=== PATIENT | female | born 1950 | race Caucasian/White ===

== ENCOUNTER 2023-05-07 12:58 | Outpatient (OUT) | payer MEDICARE, OTHER, SELFPAY ==
--- NOTE | 2023-05-07 13:03 | US_ITS ---
The [address] [address] Patient Name: DELBERT SALAS MRN: [id number] date: 1950 Sex: F Assigned Patient Location: US Current Patient Location: US Accession/Order Number: [id number] Exam Date: 05/07/2023 13:35 Report Date: 05/07/2023 14:18 At the request of: SHAIKH GERALDO Procedure: US abdomen limited EXAM: US abdomen limited HISTORY: Left Inguinal Hernia COMPARISON: None. TECHNIQUE: Real-time the left groin ultrasound Findings: There is a nonenlarged 1.3 x 0.4 x 0.6 cm left inguinal lymph node. Small fat-containing left inguinal hernia with a mild measuring approximately 0.1 cm. US/US abdomen limited IMPRESSION: 1. Small fat-containing left inguinal hernia. Electronically authenticated by: ELZBIETA OLIVA Date: 05/07/2023 14:18
--- NOTE | 2023-05-07 13:03 | XR_ITS ---
[place] [id number] Patient Name: DELBERT SALAS MRN: [id number] date: 1950 Sex: F Assigned Patient Location: US Current Patient Location: US Accession/Order Number: [id number] Exam Date: 05/07/2023 13:10 Report Date: 05/07/2023 13:33 At the request of: SHAIKH GERALDO Procedure: XR lumbar spine 2-3V EXAM: XR lumbar spine 2-3V HISTORY: Chronic Low Back Pain COMPARISON: None. TECHNIQUE: 3 views FINDINGS: Satisfactory alignment. Maintained vertebral body heights and disc spaces. Multilevel endplate degenerative changes and anterior spurring of T12-L1. No acute fracture or subluxation. Unremarkable soft tissues. XR/XR lumbar spine 2-3V IMPRESSION: Degenerative changes as above. Electronically authenticated by: DIEUDONNE SCHAEFFER Date: 05/07/2023 13:33
--- NOTE | 2023-05-07 13:03 | XR_ITS ---
The [address] [address] Patient Name: DELBERT SALAS MRN: [id number] date: 1950 Sex: F Assigned Patient Location: US Current Patient Location: US Accession/Order Number: [id number] Exam Date: 05/07/2023 13:10 Report Date: 05/07/2023 16:32 At the request of: SHAIKH GERALDO Procedure: XR hip LT min 2V EXAM: XR hip LT min 2V HISTORY: Chronic Left Hip Pain COMPARISON: None. TECHNIQUE: AP and lateral views of the left hip were obtained. FINDINGS: There is marginal spurring and joint space narrowing of the left hip joint. XR/XR hip LT min 2V IMPRESSION: Moderate left hip joint osteoarthritis. No acute fracture or subluxation. Electronically authenticated by: NIKOLE NAPOLES Date: 05/07/2023 16:32
[2023-05-07 15:00] LABS: Alanine Aminotransferase 47 U/L (14-59); Albumin Globulin Ratio 1.2; Albumin Level 3.8 g/dL (3.4-5.0); Alkaline Phosphatase 166 U/L (46-116); Aspartate Amino Transferase 26 U/L (15-37); Bilirubin Direct 0.2 mg/dL (0.0-0.2); Bilirubin Total 0.6 mg/dL (0.2-1.0); Chol HDL Ratio 2.9; Cholesterol 120 mg/dL (<=200); Globulin 3.3 g/dL; HDL Cholesterol 42 mg/dL (40-60); LDL Cholesterol Calculated 51.8 mg/dL; Thyroid Stimulating Hormone 1.199 uIU/mL (0.358-3.740); Total Protein 7.1 g/dL (6.4-8.2); Triglycerides 131 mg/dL (<=150); VLDL CHOLESTEROL 26.2 mg/dL
== END 2023-05-07 12:59 | disposition home or self-care (01) ==
LOC: US 12:58
PROVIDERS: PCP Internal Medicine; Visit Provider Internal Medicine
DX: M25.552 Pain in left hip (principal); M54.50 Low back pain, unspecified; K40.90 Unilateral inguinal hernia, without obstruction or gangrene, not specified as recurrent; E03.9 Hypothyroidism, unspecified; E78.5 Hyperlipidemia, unspecified; M16.12 Unilateral primary osteoarthritis, left hip
CPT/HCPCS: 36415; 72100; 73502; 76705; 80061; 80076; 84443

== ENCOUNTER 2023-05-31 13:19 | Outpatient (OUT) | payer MEDICARE, OTHER, SELFPAY ==
--- NOTE | 2023-05-31 15:54 | PM.CN ---
Consult Note: HPI Data of Consult Patient: new to practice Consult date: 05/31/23 Requesting Physician: Vanessa Mack MD Primary Care Provider: Shaikh Tyshawn MD Consult Narrative Reason for consult: low back, bilateral leg pain Narrative: 73yof who presents for evaluation. worsening pain throughout low back with radiation into bilateral lower extremities. ongoing for years, but continues to worsen. imaging reviewed, which is significant for multiple levels of stenosis, worst at l5-s1, as well as multilevel facet arthropathy and sacroiliac joint degeneration. engages in >6 weeks of provider directed home exercise program, without relief. utilizes otc pain medications. cc:: CC: Vanessa Mack MD Review of Systems ROS Status of ROS 10 or more systems reviewed and unremarkable except as noted in history and below Meds Home Medications and Allergies Home Medications Medication Instructions Recorded Confirmed Type aspirin 81 mg tablet,delayed 81 mg PO DAILY 05/31/23 05/31/23 History release (Adult Low Dose Aspirin) calcium carbonate 600 mg-vitamin 1 tab PO DAILY 05/31/23 05/31/23 History D3 5 mcg (200 unit) tablet (Calcium 600 + D(3)) citalopram 20 mg tablet 30 mg PO DAILY 05/31/23 05/31/23 History esomeprazole magnesium 40 mg 40 mg PO DAILY 05/31/23 05/31/23 History capsule,delayed release (Nexium) famotidine 20 mg tablet 20 mg PO DAILY 05/31/23 05/31/23 History fesoterodine 8 mg tablet,extended 8 mg PO DAILY 05/31/23 05/31/23 History release 24 hr flaxseed oil 1,000 mg capsule 1,000 mg PO DAILY 05/31/23 05/31/23 History lactobacillus combination no.4 3 3,000 mmu cells PO DAILY 05/31/23 05/31/23 History billion cell capsule (Probiotic) levothyroxine 50 mcg capsule 50 mcg PO DAILY 05/31/23 05/31/23 History melatonin 10 mg capsule 10 mg PO DAILY 05/31/23 05/31/23 History multivitamin (Daily Multi-Vitamin 1 tab PO DAILY 05/31/23 05/31/23 History tablet) semaglutide 0.25 mg or 0.5 mg (2 0.25 mg subcut QWEEK 05/31/23 05/31/23 History mg/3 mL) subcutaneous pen injector (Ozempic) simvastatin 20 mg tablet 20 mg PO DAILY 05/31/23 05/31/23 History Allergies Allergy/AdvReac Type Severity Reaction Status Date / Time Penicillins Allergy Verified 05/31/23 15:41 Sulfa (Sulfonamide Allergy Verified 05/31/23 15:41 Antibiotics) Exam Narrative Exam Narrative: Psych-alert and oriented x 3. Attentive and appropriate, constitutionally normal, displays normal mood and affect per situation. There are no obvious deficits in memory, reasoning, or intellect.? Skin-no obvious rashes, bruising, erythema noted to the patient's area of pain.? Extremities- extremities are warm with minimal edema and palpable pulses. Lumbar-tenderness to palpation noted in the lumbar spine and paraspinal musculature. Pain is elicited with flexion, extension, and lateral rotation of the lumbar spine. Range of motion is diminished with these motions. Facet loading maneuvers are positive. Strength-noted to be unremarkable with the exception of decreased strength rated at 4 out of 5 in bilateral quadriceps femoris, anterior tibialis. Sensory-no notable sensory deficits in the bilateral lower extremities to touch or pinprick in all dermatomal distributions with the exception to decreased sensation to the bilateral l4, l5 dermatomal distribution Sacroiliac joint - tenderness to palpation over bilateral PSIS. positive thigh thrust bilaterally. positive Augusto's maneuver bilaterally. Coordination remains intact.? Gait remains non-antalgic. Assessment and Plan Assessment and Plan (1) Lumbar stenosis with neurogenic claudication: (2) Sacroiliac joint dysfunction of both sides: (3) Lumbar spondylosis: Plan 73yof who presents for evaluation. failed conservative measures, as noted. imaging reviewed, as noted. given symptoms and imaging, prudent to attempt bilateral l5-s1 transforaminal epidural steroid injection under fluoroscopic guidance. she may even benefit from bilateral block of the nerve innervating the sacroiliac joint. she is in agreement. medications reviewed, no changes. follow up after procedure.
== END 2023-05-31 13:20 | disposition home or self-care (01) ==
LOC: PM 13:20
PROVIDERS: PCP Internal Medicine; Visit Provider Anesthesiology
DX: M47.816 Spondylosis without myelopathy or radiculopathy, lumbar region (principal); M48.062 Spinal stenosis, lumbar region with neurogenic claudication; M53.3 Sacrococcygeal disorders, not elsewhere classified
CPT/HCPCS: G0463

== ENCOUNTER 2023-06-21 09:05 | Day surgery (SDC) | payer MEDICARE, OTHER, SELFPAY ==
[2023-06-21 09:45] VITALS: BP 133/77; PULSE 71; RESP 14; TEMP 36.8; O2SAT 97
[2023-06-21 10:36] VITALS: BP 174/95; PULSE 82; RESP 16
[2023-06-21] MEDS: BUPIVACAINE HCL 0.25% PF 25 MG/10 ML VIAL 4 ML INJ (10:38)
[2023-06-21] MEDS: IOHEXOL 240 MG/ML - 10 ML VIAL INJ (10:39)
[2023-06-21] MEDS: LIDOCAINE HCL 2% PF 100 MG/5 ML VIAL 3 ML INJ (10:39)
[2023-06-21] MEDS: TRIAMCINOLONE ACETONIDE 40 MG/ML VIAL 80 MG INJ (10:39)
[2023-06-21 10:41] VITALS: BP 202/107; PULSE 78; RESP 18; O2SAT 94
--- NOTE | 2023-06-21 10:42 | W.PM.PROCNOT ---
Date of procedure: 06/21/23 Pre-op diagnosis: Lumbar stenosis with neurogenic claudication Post-op diagnosis: same as pre-op Procedure: Procedure: Bilateral L5-S1 transforaminal epidural steroid injection Medications: Bupivacaine 0.25% 2cc, kenalog 80mg The patient was seen and examined in the preoperative holding area.? Informed consent was obtained and placed on the chart.? Patient was brought to the medical procedure unit and placed in the prone position where a timeout was completed verifying the correct patient, procedure site, position, and planned special equipment using sterile aseptic technique.? Under direct fluoroscopic visualization a 25-gauge Quincke tipped spinal needle was advanced at level left L5-S1 to the designated neural foramen where contrast dye was injected to show adequate spread.? There was no evidence of vascular or adverse uptake.? Epidural spread was appreciated.? The above-mentioned injectate was then placed in a 1.5 mL aliquot preceded by negative aspiration.? The needle was removed. The same procedure, at the same level, was completed on the opposite side. ? Patient was taken to the postprocedural recovery area and monitored for an appropriate length of time before found suitable for discharge in the accompaniment of a responsible adult. Anesthesia: Local Surgeon: Vanessa Mack Pathology: none sent Condition: stable Disposition: no change
[2023-06-21 10:43] VITALS: O2SAT 97
== END 2023-06-21 10:46 | disposition home or self-care (01) ==
PROVIDERS: PCP Internal Medicine; Visit Provider Anesthesiology
DX: M48.062 Spinal stenosis, lumbar region with neurogenic claudication (principal); Z79.85 Long-term (current) use of injectable non-insulin antidiabetic drugs
CPT/HCPCS: 64483; 82948; Q9966

== ENCOUNTER 2023-06-23 15:51 | Outpatient (OUT) | payer MEDICARE, OTHER, SELFPAY ==
[2023-06-23 16:24] LABS: Basophils Percent Auto 0.2 % (0.2-2.0); Eosinophils Percent Auto 0.1 % (0.9-7.0); Hematocrit 41.8 % (36.0-48.0); Immature Granulocytes Abs Auto 0.04 10^3/uL (0.00-0.03); Immature Granulocytes Pct Auto 0.3 % (0.0-0.5); Lymphocytes Absolute Auto 1.8 10^3/uL (1.2-3.8); Lymphocytes Percent Auto 13.4 % (20.5-60.0); Mean Corpuscular HGB Conc 33.5 g/dL (29.9-35.2); Mean Corpuscular Hemoglobin 29.5 pg (26.7-34.0); Mean Corpuscular Volume 88.2 fL (81.0-99.0); Mean Platelet Volume 10.7 fL (9.5-13.5); Monocytes Absolute Auto 0.7 10^3/uL (0.3-0.8); Monocytes Percent Auto 5.3 % (1.7-12.0); Neutrophils Absolute Auto 10.6 10^3/uL (1.4-6.5); Neutrophils Percent Auto 80.7 % (43.0-75.0); Platelet Count 195 10^3/uL (150-450); Red Blood Count 4.74 10^6/uL (4.20-5.40); Red Cell Distribution Width 14.4 % (11.0-15.0); White Blood Count 13.1 10^3/uL (4.0-11.0)
[2023-06-23 16:41] LABS: Alanine Aminotransferase 68 U/L (14-59); Albumin Globulin Ratio 1.1; Albumin Level 3.7 g/dL (3.4-5.0); Alkaline Phosphatase 160 U/L (46-116); Amylase 54 U/L (25-115); Aspartate Amino Transferase 25 U/L (15-37); BUN Creatinine Ratio 30.1; Bilirubin Total 0.3 mg/dL (0.2-1.0); Calcium 8.8 mg/dL (8.5-10.1); Carbon Dioxide 26.4 mmol/L (21.0-32.0); Chloride 103 mmol/L (98-107); Estimated GFR (African America >60 (>=60); Estimated GFR (Non-African Ame >60 (>=60); Free T3 1.32 pg/mL (2.18-3.98); Globulin 3.5 g/dL; Glucose 94 mg/dL (74-106); Magnesium 2.3 mg/dL (1.8-2.4); Potassium 4.4 mmol/L (3.5-5.1); Sodium 137 mmol/L (136-145); Total Protein 7.2 g/dL (6.4-8.2)
[2023-06-23 17:29] LABS: Free T4 0.88 ng/dL (0.76-1.46)
[2023-06-24 14:19] LABS: Bilirubin Urine NEGATIVE (NEGATIVE); Blood Urine NEGATIVE (NEGATIVE); Clarity Urine CLEAR (CLEAR); Color Urine LT. YELLOW (YELLOW); Glucose Urine UA NEGATIVE (NEGATIVE); Ketones Urine NEGATIVE (NEGATIVE); Leukocyte Esterase Urine MODERATE (NEGATIVE); Nitrite Urine NEGATIVE (NEGATIVE); Protein Urine NEGATIVE (NEG/TRACE); Specific Gravity Urine 1.015 (1.005-1.025); Urobilinogen Urine 0.2 EU/dL (0.2-1.0)
[2023-06-24 14:34] LABS: Urine Microscopic Indicated YES
[2023-06-24 14:37] LABS: Bacteria Urine SMALL #/HPF (NONE SEEN); Mucus Urine NONE SEEN (NONE SEEN); RBC Urine NONE SEEN #/HPF (0-2)
[2023-06-24 14:38] LABS: Squamous Epithelial Cell Urine FEW #/LPF (NONE/RARE)
[2023-06-24 14:39] LABS: Urine Culture Indicated YES
[2023-06-24 14:40] LABS: Bacteria Urine SMALL #/HPF (NONE SEEN); Mucus Urine NONE SEEN (NONE SEEN); RBC Urine NONE SEEN #/HPF (0-2); Squamous Epithelial Cell Urine FEW #/LPF (NONE/RARE)
[2023-06-24 14:41] LABS: Urine Culture Indicated YES
== END 2023-06-23 15:52 | disposition home or self-care (01) ==
LOC: LAB 15:54
PROVIDERS: PCP Internal Medicine; Visit Provider Nurse Practitioner
DX: R42 Dizziness and giddiness (principal); E03.9 Hypothyroidism, unspecified; D50.9 Iron deficiency anemia, unspecified; R11.0 Nausea; R82.90 Unspecified abnormal findings in urine
CPT/HCPCS: 36415; 80053; 81001; 82150; 82607; 82728; 83540; 83690; 83735; 84439; 84443; 84481; 85025; 87086; 87150; 87186

== ENCOUNTER 2023-06-28 13:02 | Outpatient (OUT) | payer MEDICARE, OTHER, SELFPAY ==
--- NOTE | 2023-06-28 | ECG_ITS ---
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
--- NOTE | 2023-06-28 13:16 | US_ITS ---
[place] [id number] Patient Name: DELBERT SALAS MRN: [id number] date: 1950 Sex: F Assigned Patient Location: CT Current Patient Location: CT Accession/Order Number: [id number] Exam Date: 06/28/2023 13:40 Report Date: 06/28/2023 16:41 At the request of: ESPERANZA SHOEMAKER Procedure: US carotid duplex BI EXAMINATION: US carotid duplex BI HISTORY: Dizziness, Elevated Blood Pressure COMPARISON: No relevant comparison available. TECHNIQUE: Duplex Doppler ultrasound analysis of carotid and vertebral arteries. . Bilateral carotid arterial duplex examination was performed using B-mode, color flow and spectral analysis. Carotid stenosis is reported according to validated velocity parameters, similar to NASCET criteria. FINDINGS: RIGHT CAROTID ARTERY Mild atherosclerotic plaque Subclavian: PSV: 159.2 cm/s cm/s EDV: 8.9 cm/s cm/s CCA: Prox: PSV: 73.6 cm/s cm/s EDV: 16.7 cm/s cm/s Mid: PSV: 68.0 cm/s cm/s EDV: 15.3 cm/s cm/s Distal: PSV: 48.8 cm/s cm/s EDV: 13.0 cm/s cm/s BULB: PSV: 39.4 cm/s cm/s EDV: 13.6 cm/s cm/s ICA: Prox: PSV: 37.4 cm/s cm/s EDV: 10.4 cm/s cm/s Mid: PSV: 45.5 cm/s cm/s EDV: 14.9 cm/s cm/s Distal: PSV: 39.1 cm/s cm/s EDV: 14.2 cm/s cm/s ECA: PSV: 71.4 cm/s cm/s EDV: 10.0 cm/s cm/s VERTEBRAL: PSV: 53.6 cm/s cm/s EDV: 13.2 cm/s cm/s, antegrade ICA/CCA ratio: PSV: 0.7 EDV: 1.0 LEFT CAROTID ARTERY Mild atherosclerotic plaque Subclavian: PSV: 87.1 cm/s cm/s EDV: 16.0 cm/s CCA: Prox: PSV: 74.9 cm/s cm/s EDV: 19.3 cm/s Mid: PSV: 44.8 cm/s cm/s EDV: 11.3 cm/s Distal: PSV: 63.6 cm/s cm/s EDV: 13.0 cm/s BULB: PSV: 41.8 cm/s cm/s EDV: 11.3 cm/s ICA: Prox: PSV: 37.8 cm/s cm/s EDV: 10.9 cm/s Mid: PSV: 47.6 cm/s cm/s EDV: 19.9 cm/s Distal: PSV: 37.2 cm/s cm/s EDV: 12.5 cm/s ECA: PSV: 46.1 cm/s cm/s EDV: 9.5 cm/s VERTEBRAL: PSV: 28.0 cm/s cm/s EDV: 10.0 cm/s , antegrade ICA/CCA ratio: PSV: 0.7 EDV: 1.5 US/US carotid duplex BI IMPRESSION: 0-49% flow stenosis bilateral internal carotid arteries Spectral Doppler US Thresholds (Reference: Collin EG, et al. Radiology 2000; 214:247-252) Stenosis (%) PSV (cm/sec) VICA/VCCA 0-49 <150 <2.5 50-69 150-225 2.5-4.0 >70 >225 >4.0 Electronically authenticated by: ADAM GERMAIN Date: 06/28/2023 16:41
--- NOTE | 2023-06-28 13:16 | CT_ITS ---
The [address] [address] Patient Name: DELBERT SALAS MRN: [id number] date: 1950 Sex: F Assigned Patient Location: CT Current Patient Location: CT Accession/Order Number: [id number] Exam Date: 06/28/2023 13:31 Report Date: 06/28/2023 14:05 At the request of: ESPERANZA SHOEMAKER Procedure: CT head/brain wo con EXAM: CT head/brain wo con HISTORY: Dizziness, Elevated Blood Pressure COMPARISON: CT brain 09/29/2021 TECHNIQUE: Axial CT scans through the head were obtained without IV contrast administration. Dose reduction techniques were achieved by using: automated exposure control and/or adjustment of mA and /or kV according to patient size and/or use of iterative reconstruction technique. FINDINGS: There is no evidence of acute intracranial hemorrhage or abnormal extra-axial fluid collection. No mass effect or midline shift is seen. There is no evidence of large acute territorial infarction. There is no hydrocephalus. Mild enlarged cortical sulci, consistent with age appropriate cerebral atrophy. Patchy areas of low-attenuation are present in supratentorial white matter, likely represents chronic microvascular ischemia. To the limit of CT, the posterior fossa appears unremarkable. No definite acute fracture is identified. Soft tissues are unremarkable. The visualized orbits show no abnormal mass. The visualized paranasal sinuses show no air-fluid level. Mastoid air cells are clear. CT/CT head/brain wo con IMPRESSION: No CT evidence of acute intracranial abnormality. Chronic microvascular ischemia and mild involutional changes. Electronically authenticated by: HARLAN KAUR Date: 06/28/2023 14:05
== END 2023-06-28 13:03 | disposition home or self-care (01) ==
LOC: CT 13:03
PROVIDERS: PCP Internal Medicine; Visit Provider Nurse Practitioner
DX: R42 Dizziness and giddiness (principal); R03.0 Elevated blood-pressure reading, without diagnosis of hypertension; Z82.3 Family history of stroke; I67.82 Cerebral ischemia
CPT/HCPCS: 70450; 93005; 93880

== ENCOUNTER 2023-07-05 07:25 | Day surgery (SDC) | payer MEDICARE, OTHER, SELFPAY ==
[2023-07-05 07:51] VITALS: BP 127/80; PULSE 74; RESP 16; TEMP 36; O2SAT 97
[2023-07-05 08:35] VITALS: BP 167/93; PULSE 76; RESP 18; O2SAT 97
[2023-07-05] MEDS: LIDOCAINE HCL 2% PF 100 MG/5 ML VIAL 3 ML INJ (08:38)
[2023-07-05] MEDS: TRIAMCINOLONE ACETONIDE 40 MG/ML VIAL 80 MG INJ (08:38)
[2023-07-05] MEDS: BUPIVACAINE HCL 0.25% PF 25 MG/10 ML VIAL 4 ML INJ (08:38)
--- NOTE | 2023-07-05 08:39 | W.PM.PROCNOT ---
Date of procedure: 07/05/23 Pre-op diagnosis: Sacroiliitis, bilateral Post-op diagnosis: same as pre-op Procedure: Procedure: Bilateral block of the nerve innervating the sacroiliac joint Medications: Bupivacaine 0.25% 3cc, kenalog 40mg x2 After informed consent was obtained, the patient was brought to the medical procedure unit and placed in the prone position, when a timeout was completed verifying correct patient, procedure, site, positioning, implant, and/or special equipment.? The skin overlying the area was prepped and draped in standard sterile fashion using alcohol.? A 25-gauge needle was inserted towards the left nerve innervating the sacroiliac joint under direct fluoroscopic imaging.? Needle tip was advanced until the nerve was encountered.? We instilled a total of 3 mL of solution.? The same procedure was then completed on the right side.? Postoperatively needles were removed.? The patient tolerated the procedure well without complication.? The patient reported reduction in pain symptoms postoperatively. Anesthesia: Local Surgeon: Vanessa Mack Pathology: none sent Condition: stable Disposition: no change
[2023-07-05 08:40] VITALS: BP 164/95; PULSE 80; RESP 18; O2SAT 95
== END 2023-07-05 08:45 | disposition home or self-care (01) ==
PROVIDERS: PCP Internal Medicine; Visit Provider Anesthesiology
DX: M46.1 Sacroiliitis, not elsewhere classified (principal)
CPT/HCPCS: 64451

== ENCOUNTER 2023-07-07 16:34 | Outpatient (OUT) | payer MEDICARE, OTHER, SELFPAY ==
[2023-07-07 17:14] LABS: Bilirubin Urine NEGATIVE (NEGATIVE); Blood Urine NEGATIVE (NEGATIVE); Color Urine LT. YELLOW (YELLOW); Glucose Urine UA NEGATIVE (NEGATIVE); Ketones Urine NEGATIVE (NEGATIVE); Leukocyte Esterase Urine SMALL (NEGATIVE); Nitrite Urine NEGATIVE (NEGATIVE); Protein Urine NEGATIVE (NEG/TRACE); pH Urine 6.5 (5.0-9.0)
[2023-07-07 17:20] LABS: Clarity Urine SLIGHTLY CLOUDY (CLEAR)
[2023-07-07 17:21] LABS: Bacteria Urine TRACE #/HPF (NONE SEEN); Cast Seen? NONE SEEN #/LPF (NONE SEEN); Crystals Seen? None Seen #/HPF (None Seen); Mucus Urine NONE SEEN (NONE SEEN); RBC Urine NONE SEEN #/HPF (0-2); Squamous Epithelial Cell Urine FEW #/LPF (NONE/RARE)
== END 2023-07-07 16:35 | disposition home or self-care (01) ==
PROVIDERS: PCP Internal Medicine; Visit Provider Internal Medicine
DX: N39.0 Urinary tract infection, site not specified (principal)
CPT/HCPCS: 81001; 87086

== ENCOUNTER 2023-07-21 10:48 | Outpatient (OUT) | payer MEDICARE, OTHER, SELFPAY ==
--- NOTE | 2023-07-21 11:14 | P.CN_ITS ---
Consult Note: HPI Data of Consult Patient: known to practice within the last 3 years Requesting Physician: Beth Morales NP Primary Care Provider: Shaikh Tyshawn MD Consult Narrative Reason for consult: f/u Narrative: Berenice Nolasco a pleasant 73 year old female presents for evaluation and management of low back pain. Today rating pain maybe 1/10, pain has been 0/10 until yesterday morning. Reporting 90% pain relief and functional improvement from bilateral SI joint injection and 100% pain relief from bilateral L5/S1 TFESI. cc:: CC: Beth Morales NP Review of Systems ROS Status of ROS 10 or more systems reviewed and unremarkable except as noted in history and below Musculoskeletal Reports: back pain PFSH PFSH Medical History Acid reflux ?K21.9 - Gastro-esophageal reflux disease without esophagitis (ICD-10) Diabetes ?E11.9 - Type 2 diabetes mellitus without complications (ICD-10) H/O malignant neoplasm of breast ?Z85.3 - Personal history of malignant neoplasm of breast (ICD-10) High cholesterol ?E78.00 - Pure hypercholesterolemia, unspecified (ICD-10) Osteoarthritis ?M19.90 - Unspecified osteoarthritis, unspecified site (ICD-10) Sleep apnea ?G47.30 - Sleep apnea, unspecified (ICD-10) Surgical History H/O arthroscopy of knee ?Z98.890 - Other specified postprocedural states (ICD-10) H/O arthroscopy of shoulder ?Z98.890 - Other specified postprocedural states (ICD-10) H/O bladder repair surgery ?Z98.890 - Other specified postprocedural states (ICD-10) H/O breast reconstruction ?Z98.890 - Other specified postprocedural states (ICD-10) H/O mastectomy ?Z90.10 - Acquired absence of unspecified breast and nipple (ICD-10) H/O: hysterectomy ?Z90.710 - Acquired absence of both cervix and uterus (ICD-10) Meds Home Medications and Allergies Home Medications Medication Instructions Recorded Confirmed Type aspirin 81 mg tablet,delayed 81 mg PO DAILY 05/31/23 07/05/23 History release (Adult Low Dose Aspirin) calcium carbonate 600 mg-vitamin 1 tab PO DAILY 05/31/23 07/05/23 History D3 5 mcg (200 unit) tablet (Calcium 600 + D(3)) citalopram 20 mg tablet 30 mg PO DAILY 05/31/23 07/05/23 History esomeprazole magnesium 40 mg 40 mg PO DAILY 05/31/23 07/05/23 History capsule,delayed release (Nexium) famotidine 20 mg tablet 20 mg PO DAILY 05/31/23 07/05/23 History fesoterodine 8 mg tablet,extended 8 mg PO DAILY 05/31/23 07/05/23 History release 24 hr flaxseed oil 1,000 mg capsule 1,000 mg PO DAILY 05/31/23 07/05/23 History lactobacillus combination no.4 3 3,000 mmu cells PO DAILY 05/31/23 07/05/23 History billion cell capsule (Probiotic) levothyroxine 50 mcg capsule 50 mcg PO DAILY 05/31/23 07/05/23 History melatonin 10 mg capsule 10 mg PO DAILY 05/31/23 07/05/23 History multivitamin (Daily Multi-Vitamin 1 tab PO DAILY 05/31/23 07/05/23 History tablet) semaglutide 0.25 mg or 0.5 mg (2 0.25 mg subcut QWEEK 05/31/23 07/05/23 History mg/3 mL) subcutaneous pen injector (Ozempic) simvastatin 20 mg tablet 20 mg PO DAILY 05/31/23 07/05/23 History Allergies Allergy/AdvReac Type Severity Reaction Status Date / Time Penicillins Allergy Verified 07/05/23 07:56 Sulfa (Sulfonamide Allergy Verified 07/05/23 07:56 Antibiotics) Exam Constitutional Documenting provider has reviewed patient's vital signs: yes Common normals: no apparent distress, oriented x3, healthy appearing, alert and well nourished General appearance: cooperative HENMT Common normals: normocephalic, hearing grossly normal bilaterally and moist oral mucous membranes Head and scalp: normocephalic Eye Common normals: PERRL Pupil: PERRL Neck & C-Spine Common normals: full ROM General: normal visual inspection Chest Common normals: inspection of chest normal Respiratory Common normals: normal respiratory effort, no retractions and no use of accessory muscles Back & Pelvis Lumbar spine/lower back: ROM limited, pain with ROM and straight leg raise negative bilaterally Other: mild pain with bilateral facet loading axial low back pain over L3,4,5,S1 no radiculopathy Neuro Common normals: oriented x3, CN's II-XII intact bilaterally, moves all extremities, no focal motor deficits, no sensory deficits noted and deep tendon reflexes 2+ bilaterally Sensorium/orientation: alert Motor exam: strength 5/5 throughout and no movement abnormalities noted Psych Common normals: mental status grossly normal, thought process normal, cooperative, affect normal, speech normal and activity/motor behavior normal Speech: normal speech Thought process: normal thought process Results Additional Findings Additional findings: I have checked an [place]AR[place] report on this patient today and there are no aberrancies noted in the prescribing history.?? A drug screen was completed and reviewed within the last year, and if there has not been a drug screen completed we ordered one today to monitor higher risk, state monitored pain medication use. As part of providing excellent, safe, comprehensive care, the following was completed at our patient's visit: 1. A medication reconciliation and review to ensure accurate knowledge of current/active medications, including asking our patients to inform us about any [id number] medications or herbal remedies/nutritional supplements/alternative remedies. 2. A review to specifically ensure our patients have had annual screening for: elevated body mass index (BMI), tobacco use, screening for depression, and screening for unhealthy alcohol use. When screening is concerning, patients are provided with education and the specific recommendation to discuss the concern ing health issue and treatment options with their primary care provider. Assessment and Plan Assessment and Plan (1) Lumbar spondylosis: (2) Sacroiliac joint dysfunction of both sides: (3) Lumbar stenosis with neurogenic claudication: Plan continue HEP discussed facet blocks and thermal RFA in the future if pain worsens or futher affects functional ability f/u 3 months to evaluate effectiveness of injections and consider repeating if provides 50% relief for 3 months
--- OUTSIDE RECORDS SUMMARY | 2023-08-31 13:53 | XMS_ITS | CCD ---
Author Name Unknown Address [address] [place] [address] Organization [facility] Care Team Providers Care Information Consultant Name Role Phone NANCY MARTINEZ Unavailable Unavailable NANCY MARTINEZ Unavailable Unavailable NADERER, TRINO~[phone] UNKNOWN Unavailable Unavailable GRUPO BROUSSARD Unavailable Unavailable DC Procedure Practitioner Unavailab ADAM Bernardo Surgeon Unavailable ADAM SKINNER Admitting Unavailable NADERER, TRINO Primary Care Unavailable NADERER, TRINO Referring Unavailable ADAM SKINNER Attending Unavailable LASHA BAKER Surgeon Unavailable DC Procedure Practitioner Unavailab le Tyshawn ADAMSON, Shaikh Kerry Primary Care Provider Shaikh Kerry Villagran MD Primary Care Provider SHAIKH KERRY VILLAGRAN Primary Care Unavailab le GHAZOUL, APOLINAR Admitting Unavailable GHAZOUL, APOLINAR Attending Unavailable GHAZOUL, APOLINAR Referring Unavailable GHAZOUL, APOLINAR Attending Unavailable GHAZOUL, APOLINAR Referring Unavailable [facility] Primary Care Unavailab le FAWWADSHAIKH KERYR Primary Care Unavailab le SELF, SELF Referring Unavailable GHAZOUL, APOLINAR Attending Unavailable SHAIK VILLAGRANH KERRY Primary Care Unavailab le GHAZOUL, APOLINAR Referring Unavailable GHAZOUL, APOLINAR Attending Unavailable [facility]ASHAIK [facility] Primary Care Unavailab le SELF, SELF Referring Unavailable GHAZOUL, APOLINAR Attending Unavailable TYSHAWN, FREED HAMMANUELA Primary Care Unavailab le SELF, SELF Referring Unavailable GHAZOUL, APOLINAR Attending Unavailable AKIINLEAH [facility] Primary Care Unavailab le SELF, SELF Referring Unavailable GHAZOUL, APOLINAR Attending Unavailable [facility] Primary Care Unavailab le SELF, SELF Referring Unavailable GHAZOUL, APOLINAR Attending Unavailable [facility], [facility] Primary Care Unavailab le SELF, SELF Referring Unavailable GHAZOUL, APOLINAR Attending Unavailable FA[facility]AD, [facility] Primary Care Unavailab le SELF, SELF Referring Unavailable GHAZOUL, APOLINAR Attending Unavailable FAWWAD, [facility] Primary Care Unavailab le SELF, SELF Referring Unavailable GHAZOUL, APOLINAR Attending Unavailable FAWWAD, [facility] Primary Care Unavailab le SELF, SELF Referring Unavailable GHAZOUL, APOLINAR Attending Unavailable FAWWAD, [facility] Primary Care Unavailab le SELF, SELF Referring Unavailable GHAZOUL, APOLINAR Attending Unavailable FAWWAD, [facility] Primary Care Unavailab le SELF, SELF Referring Unavailable GHAZOUL, APOLINAR Attending Unavailable FAWWAD, [facility] Primary Care Unavailab le SELF, SELF Referring Unavailable GHAZOUL, APOLINAR Attending Unavailable FAWWAD, [facility] Primary Care Unavailab le FAWWAD, [facility] Primary Care Unavailab le FAWWAD, [facility] Primary Care Unavailab le SELF, SELF Referring Unavailable GHAZOUL, APOLINAR Attending Unavailable FAWWAD, FREED H Attending Unavailable FAWWAD, FREED H Consulting Unavailable FAWWAD, FREED H Primary Care Unavailable FAWWAD, FREED H Admitting Unavailable FAWWAD, FREED H Attending Unavailable FAWWAD, FREED H Consulting Unavailable FAWWAD, FREED H Primary Care Unavailable FAWWAD, FREED H Admitting Unavailable FAWWAD, FREED H Primary Care Unavailable KANIKA, DR TY Marquez Consulting Unavailable FAWWAD, FREED H Admitting Unavailable FAWWAD, FREED H Attending Unavailable FAWWAD, FREED H Consulting Unavailable MARCELLUS, DR ADAM Castellanos Admitting Unavailable KEOKEE, DR ADAM Castellanos Attending Unavailable KEOKEE, DR ADAM Castellanos Consulting Unavailable FAWWAD, FREED H Primary Care Unavailable KANIKA, DR TY Marquez Consulting Unavailable WEST, DR ADAM Castellanos Attending Unavailable WEST, DR ADAM Castellanos Admitting Unavailable FAWWAD, FREED H Primary Care Unavailable FAWWAD, FREED H Consulting Unavailable WEST, DR ADAM Castellanos Admitting Unavailable WEST, DR ADAM Castellanos Attending Unavailable FAWWAD, FREED H Primary Care Unavailable BRODY, ADAM Admitting Unavailable BRODY, ADAM Attending Unavailable FAWWAD, FREED H Primary Care Unavailable FAWWAD, FREED H Attending Unavailable FAWWAD, FREED H Consulting Unavailable FAWWAD, FREED H Primary Care Unavailable FAWWAD, FREED H Admitting Unavailable FAWWAD, FREED H Attending Unavailable FAWWAD, FREED H Consulting Unavailable FAWWAD, FREED H Primary Care Unavailable FAWWAD, FREED H Admitting Unavailable Susanne Jordan Unavailable Dr. Apolinar Henry Attending Provider [phone] Adriana Lyn Unavailable Adam Betancourt MD Attending Unavailabl nicki Villagran MD, [facility] Unavailable Frederick ADAMSON, Vanessa Hernandez Attending Unavailable Tyshawn ADAMSON, [facility] Unavailable Frederick ADAMSON, Vanessa Hernandez Attending Unavailable Tyshawn ADAMSON, [facility] Unavailable Frederick ADAMSON, Vanessa Hernandez Attending Unavailable Tyshawn ADAMSON, [facility] Unavailable Kevin Joaquin Attending Unav bethel Villagran MD, [facility] Unavailable Kevin Joaquin Attending Unav bethel Villagran MD, [facility] Unavailable Tyshawn ADAMSON, [facility] Unavailable Kevin Joaquin Attending Unav bethel Villagran MD, [facility] Unavailable Jovan Betancourt Referring UnavailAlycia Howard MD Attending Unavailable Tyshawn ADAMSON, [facility] Unavailable Jovan Betancourt Attending Unavailab alley Villagran MD, [facility] Unavailable Jovan Betancourt Attending Unavailab Marin TIDWELL, Agnieszka Salcedo Attending Shruti vailacelso Villagran MD, [facility] Unavailable Tyshawn ADAMSON, [facility] Unavailable Jovan Betancourt Attending Unavailab alley Villagran MD, [facility] Unavailable Jovan Betancourt Attending Unavailab alley Villagran MD, [facility] Unavailable Nancy Dallas DO Attending Shruti vailable Apolinar Henry Attending Unavailable Apolinar Henry Attending Unavailable Apolinar Henry Attending Unavailable Tyshawn, [facility] Unavailable Susanne Jordan Attending Unavailable Susanne Jordan Admitting Unavailable Allergies Allergy Classification Reported Allergen(s) Allergy Type Date of Onset Reaction(s) Facility (2 sources) cortisone; Translations: [cortisone] [facility] Penicillins; Translations: [penicillins] Propensity to adverse reactions (disorder) 3 [facility] Repository (1 source) sulfamethoxazole; Translations: [sulfamethoxazole ] [facility] ([facility] sources) Sulfonamides (Antibiotic) Drug allergy (disorder) 3 [facility] Repository (13 sources) sulfaSALAzine Drug Allergy 7 [facility] (13 sources) Sulfonamides (Antibiotic) Propensity to adverse reactions to drug 3 [facility] (5 sources) Penicillin Drug Allergy Unknown [employer] Other (5 sources) Substance with sulfonamide structure and antibacterial mechanism of action (substance) Drug allergy Unknown [employer] Other (2 sources) Sulfonamides (Antibiotic) Allergy to substance 3 [facility] (1 source) Sulfonamides (Antibiotic); Translations: [sulfa drugs] Propensity to adverse reactions to drug (disorder) [facility] Repository (1 source) Sulfonamides (Antibiotic) Drug allergy (disorder) 3 [facility] Repository Medications Current Medications Medication Drug Class(es) Dates Sig (Normalized) Sig (Original) 0.25 MG, 0.5 MG Dose 3 ML semaglutide 0.68 MG/ML Pen Injector [Ozempic] (5 sources) Start: 01-25-2023 Ozempic (0.25 or 0.5 MG/DOSE) 2 MG/3ML 0.25mg Subcutaneous Once Weekly for 90 days January, Active Start: 01-25-2023 Ozempic (0.25 or 0.5 MG/DOSE) 2 MG/3ML 0.25mg once weekly for 4 weeks, then 0.5mg once weekly for 4 weeks Subcutaneous Once Weekly for 28 January, Active Ascorbic Acid / Collagen (2 sources) Vitamin C Start: 05-05-2023 take 30-833.3 mg by mouth once daily Ascorbic Acid-Collagen (Collagen Skin Renewal) 30-833.3 mg tablet Active 1 TABLET PO DAILY May 05, 2023 12:00am aspirin 81 mg delayed release oral tablet (13 sources) Platelet Aggregation Inhibitor, Nonsteroidal Anti-inflammatory Drug Start: 05-05-2023 take 81 mg by mouth once daily Aspirin Active 81 MG PO DAILY May 05, 2023 12:00am Start: 05-05-2023 End: 06-16-2022 take 81 mg by mouth once daily Aspirin Active 81 MG PO DAILY May 05, 2023 12:00am take 1 tablet by stone th every twenty-four hours Aspirin 81 MG 1 tablet Orally Once a day Active End: 07-09-2022 aspirin 81 MG Chew Tab chewa ble tablet At bedtime. 0 07/09/2022 Discontinued (Stop Taking at Discharge) Calcium (16 sources) Phosphate Binder, Calcium Calciu m + D3 600mg qd Active CALCIUM PO Take by mouth daily. 0 Active calcium carbonate 1500 mg / cholecalciferol 500 unt oral capsule (2 sources) Vitamin D Start: 05-05-2023 take 1 capsule by mouth once daily Calcium Carbonate-Vitamin D3 (Calcium 600 With Vitamin D3) 600 mg-12.5 mcg (500 unit) capsule Active 1 CAP PO DAILY May 05, 2023 12:00am citalopram 20 mg oral tablet (20 sources) Serotonin Reuptake Inhibitor Start: 05-05-2023 take 30 mg by mouth once daily Citalopram Active 30 MG PO DAILY May 05, 2023 12:00am Start: 03-11-2022 End: 06-16-2022 citalopram 20 MG tablet take 1 and 1/2 tablet by mouth once daily 0 03/11/2022 Active Collagen (16 sources) Collagen 1000mg + Vitamin C qd Active COLLAGEN PO Take by mouth. 0 Active esomeprazole 40 mg oral tablet (14 sources) Proton Pump Inhibitor Start: 05-05-2023 take 40 mg by mouth once daily Esomeprazole Magnesium Active 40 MG PO DAILY May 05, 2023 12:00am Start: 06-09-2022 take 1 capsule by [facility] once daily in the morning esomeprazole [address] capsule Take 1 capsule by mouth daily every morning. 0 06/09/2022 Active End: 05-20-2022 take 1 capsule by mouth once daily esomeprazole [address] capsule esomeprazole magnesium 40 mg capsule,delayed release take 1 capsule by mouth daily 0 05/20/2022 Discontinued famotidine 20 mg oral tablet (20 sources) Histamine-2 Receptor Antagonist Start: 05-05-2023 take 20 mg by mouth once daily Famotidine Active 20 MG PO DAILY May 05, 2023 12:00am 24 hr fesoterodine fumarate 8 mg extended release oral tablet (7 sources) Start: 05-05-2023 take 8 mg by mouth once daily Fesoterodine Active 8 MG PO DAILY May 05, 2023 12:00am Flax Seed Oil (5 sources) Flax Seed Oil 1200mg qd Active ibuprofen 400 mg oral tablet (11 sources) Nonsteroidal Anti-inflammatory Drug take 1 tablet by mouth every six hours as needed ibuprofen 400 MG tablet Take 1 tablet by mouth every 6 hours as needed for Mild Pain. 0 Active levothyroxine sodium 0.05 mg oral tablet (20 sources) l-Thyroxine Start: 05-05-2023 take 50 ug by mouth once daily Levothyroxine Active 50 MCG PO DAILY May 05, 2023 12:00am take 1 tablet by mouth once anai y Levothyroxine Sodium 50 MCG take 1 tablet by mouth once daily Oral for 90 Days Active levothyroxine 50 MCG tablet daily every morning. 0 Active linseed oil 1000 mg oral capsule (13 sources) Flaxseed, Linsee d, (Flax Seed Oil) 1000 MG capsule 1 capsule daily. 0 Active melatonin 10 mg oral tablet (13 sources) Start: 05-05-2023 take 10 mg by mouth at bedtime Melatonin Active 10 MG PO BEDTIME May 05, 2023 12:00am MELATONIN PO Delmar e by mouth daily. 0 Active Obeczvgx-Wnx-Nx-Lycopen-Lute in (Complete Mv Adult 50 Plus) 0.4 mg-300 mcg- 250 mcg tablet (2 sources) Start: 05-05-2023 take 1 tablet by mouth once daily Rpaiapya-Ycr-Xg-Lycopen-Lutein (Complete Mv Adult 50 Plus) 0.4 mg-300 mcg- 250 mcg tablet Active 1 TABLET PO DAILY May 05, 2023 12:00am Multivitamin preparation (5 sources) Multivitamin Act vera multivitamin tablet (11 sources) take 1 tablet by mouth once daily multivitamin tablet Take 1 tablet by mouth daily. 0 Active omeprazole 40 mg delayed release oral capsule (5 sources) Prot on Pump Inhi bito r take 1 capsule by mouth once daily Omeprazole 40 MG 1 capsule 30 minutes before morning meal Orally Once a day Active POLYETHYLENE GLYCOL 3350 (2 sources) Osmo tic Laxa tive MiraLax Active Probiotic (3 sources) Probiotic Active Semaglutide (2 sources) Start: 05-05-2023 Semaglutide (Ozempic) 0.25 m g or 0.5 mg (2 mg/3 mL) pen injector Active 0.25 MG SC EVERY WEEK May 05, 2023 12:00am simvastatin 20 mg oral table t (20 sources) HMG- CoA Redu ctas e Inhi bito r Start: 05-05-2023 take 20 mg by mouth once daily Simvastatin Active 20 MG PO DAILY May 05, 2023 12:00am 24 hr trospium chloride 60 m g extended release oral capsule (13 sources) Chol iner gic [facility] alejandra ic [address] take 1 capsule by mouth once daily in the morning trospium XR 60 MG Cap SR 24HR trospium ER 60 mg capsule,extended release 24 hr take 1 capsule by mouth every morning 0 Active Completed/Discontinued Medications Medication Drug Class(es) Dates Sig (Normalized) Sig (Original) acetaminophen 325 mg / oxyCODONE hydrochloride 5 mg oral tablet (10 sources) Opioid Agonist Start: 07-09-2022 End: 07-09-2022 take 1-2 tablets by mouth every four hours as needed oxyCODONE-acetami nophen (PERCOCET) 5-325 MG per tablet 1-2 tablet Start: 06-30-2022 End: 07-03-2022 take 1 tablet by mouth every six hours as needed for pain oxyCODONE-acetaminophen 5-325 MG per tablet Indications: S/P breast reconstruction Take 1 tablet by mouth every 6 hours as needed for Moderate Pain (Use ONLY as needed for pain) for up to 3 days. 10 tablet 0 06/30/2022 Active [id number] 200 actuat albuterol 0.09 mg/actuat metered dose inhaler (2 sources) beta2-Adrenergic Agonist End: 06-16-2022 albuterol 108 (90 Base) MCG/ACT Aero Soln inhaler take 2 puff(s) by mouth every si x hours albuterol 108 (90 Base) MCG/ACT Aero Soln inhaler albuterol sulfate HFA 90 mcg/actuation aerosol inhaler INHALE 2 PUFFS BY MOUTH EVERY 6 HOURS IF NEEDED 0 Active calcium chloride 0.0014 meq/ml / potassium chloride 0.004 meq/ml / sodium chloride 0.103 meq/ml / sodium lactate 0.028 meq/ml injectable solution (1 source) Start: 07-09-2022 End: 07-09-2022 lactated ringers IV solution cephalexin 500 mg oral capsule (5 sources) Cephalosporin Antibacterial Start: 08-05-2022 End: 08-12-2022 take 1 capsule by mouth twice daily cephALEXin 500 MG capsule Take 1 capsule by mouth 2 times daily for 7 days. 14 capsule 0 08/05/2022 08/12/2022 Start: 07-15-2022 End: 07-22-2022 take 1 capsule by mouth twice daily cephALEXin 500 MG capsule Take 1 capsule by mouth 2 times daily for 7 days. 14 capsule 0 07/15/2022 07/22/2022 Start: 06-30-2022 End: 07-07-2022 take 1 capsule by mouth twice daily cephALEXin 500 MG capsule Take 1 capsule by mouth 2 times daily for 7 days. 14 capsule 0 06/30/2022 07/07/2022 Active 2 ml gentamicin 40 mg/ml injection (1 source) Start: 07-09-2022 End: 07-09-2022 gentamicin (GARAMYCIN) injection 10 ml methylene blue 5 mg/ml injection (1 source) Oxidation-Reduction Agent Start: 07-09-2022 End: 07-09-2022 methylene blue (PROVAYBLUE) injection Oxidized Cellulose (SURGICEL) topical pad (1 source) Start: 07-09-2022 End: 07-09-2022 Oxidized Cellulose (SURGICEL) topical pad polyethylene glycol 3350 [id number] mg / potassium chloride 2970 mg / sodium bicarbonate 6740 mg / sodium chloride 5860 mg / sodium sulfate 76172 mg powder for oral solution (1 source) Osmotic Laxative End: 05-20-2022 peg 3350 w/electrolytes (GaviLyte-G) oral solution GaviLyte-G 236 gram-22.74 gram-6.74 gram-5.86 gram oral solution 0 05/20/2022 Discontinued sertraline 50 mg oral tablet (6 sources) Serotonin Reuptake Inhibitor End: 07-22-2022 sertraline 50 MG tablet Take by mouth daily. 0 07/22/2022 Discontinued (Medication Reconciliation (suppress cancel msg)) 1000 ml sodium chloride 9 mg/ml injection (2 sources) Start: 07-09-2022 End: 07-09-2022 sodium chloride 0.9 % irrigation Start: 07-09-2022 End: 07-09-2022 sodium chloride 0.9% IV solu tion Problems Active Problems Problem Classification Problem Date Documented Date Episodic/Chronic Administrative/socia l admission (2 sources) Persons encountering health services in other specified circumstances Episodic Anxiety disorders (13 sources) Anxiety; Translations: [Anxiety disorder, unspecified] Onset: 05-20-2022 05-20-2022 Chronic Cancer of breast (20 sources) Primary malignant neoplasm of female breast; Translations: [Malignant neoplasm of unspecified site of unspecified female breast] Onset: 11-03-2012 05-20-2022 Chronic Cancer of breast (20 sources) History of malignant neoplasm of breast; Translations: [Personal history of malignant neoplasm of breast] Onset: 05-20-2022 Episodic Diabetes mellitus without complication (2 sources) Impaired fasting glucose Episodic Disorders of lipid metabolism (20 sources) Hyperlipidemia; Translations: [Hyperlipidemia, unspecified] Onset: 10-23-2013 05-20-2022 Chronic Esophageal disorders (20 sources) Gastroesophageal reflux disease; Translations: [Gastro-esophageal reflux disease without esophagitis] Onset: 11-03-2012 05-20-2022 Chronic Headache; including migraine (1 source) Headache Onset: 08-05-2018 Episodic Mood disorders (20 sources) Depressive disorder; Translations: [Depressive disorder] Onset: 11-03-2012 05-20-2022 Chronic Nonmalignant breast conditions (6 sources) Hypertrophy of breast; Translations: [Hypertrophy of breast] Onset: 07-26-2023 05-05-2023 Episodic Nonspecific chest pain (20 sources) Chest pain; Translations: [Chest pain, unspecified] Onset: 05-20-2022 05-20-2022 Episodic Osteoarthritis (13 sources) Degenerative joint disease involving multiple joints; Translations: [Polyosteoarthritis, unspecified] Onset: 11-03-2012 05-20-2022 Chronic Other diseases of bladder and urethra (5 sources) Overactive bladder; Translations: [Overactive bladder] Chronic Other diseases of bladder and urethra (2 sources) Overactive bladder Chronic Other nutritional; endocrine; and metabolic disorders (12 sources) Obese class II; Translations: [Obesity, unspecified] Onset: 06-16-2022 06-16-2022 Chronic Other nutritional; endocrine; and metabolic disorders (5 sources) Body mass index 40+ - severely obese; Translations: [Body mass index (BMI) 40.0-44.9, adult] Chronic Other nutritional; endocrine; and metabolic disorders (5 sources) Body mass index 30+ - obesity; Translations: [Body mass index (BMI) 37.0-37.9, adult] Chronic Other nutritional; endocrine; and metabolic disorders (10 sources) Obesity; Translations: [Obesity, unspecified] Chronic Other nutritional; endocrine; and metabolic disorders (4 sources) Obesity, unspecified Chronic Other nutritional; endocrine; and metabolic disorders (2 sources) Body mass index (BMI) 34.0-34.9, adult Chronic Other nutritional; endocrine; and metabolic disorders (1 source) Obese class I; Translations: [Body mass index (BMI) 34.0-34.9, adult] Chronic Residual codes; unclassified (5 sources) Obstructive sleep apnea syndrome; Translations: [Obstructive sleep apnea (adult) (pediatric)] Chronic Residual codes; unclassified (2 sources) Obstructive sleep apnea (adult) (pediatric) Chronic Residual codes; unclassified (11 sources) History of breast reconstruction; Translations: [Other specified postprocedural states] Onset: 10-21-2022 Episodic Residual codes; unclassified (4 sources) Localized edema; Translations: [LOCALIZED EDEMA] Onset: 09-16-2022 Episodic Spondylosis; intervertebral disc disorders; other back problems (6 sources) Sacrococcygeal disorders, not elsewhere classified; Translations: [Dorsalgia, unspecified] Onset: 05-21-2022 Episodic Thyroid disorders (12 sources) Hypothyroidism, unspecified; Translations: [Hypothyroidism] Onset: 03-24-2022 Chronic Unclassified (1 source) Unknown / UNK(Unknown) Onset: 08-05-2018 Unclassified (2 sources) Establish Care; Translations: [Establish Care] Onset: 11-18-2022 Unclassified (2 sources) Post Op Visit; Translations: [Post Op Visit] Onset: 07-22-2022 Unclassified (2 sources) Pre-op Exam; Translations: [Pre-op Exam] Onset: 06-30-2022 Unclassified (2 sources) Consult; Translations: [Consult] Onset: 05-20-2022 Unclassified (3 sources) CONTACT W/AND (SUSP) EXPOS COVID-19; Translations: [CONTACT W/AND (SUSP) EXPOS COVID-19] Onset: 03-04-2022 Unclassified (1 source) Dietary counseling and surveillance; Translations: [Dietary counseling and surveillance] Onset: 08-30-2023 Varicose veins of lower extremity (4 sources) Varicose veins of bilateral lower extremities with pain; Translations: [VARICOSE VNS CHARLIE LOW EXTREM W/PAIN] Onset: 12-16-2022 Episodic Past or Other Problems Problem Classification Problem Date Documented Date Episodic/Chronic Joint disorders and dislocations; trauma-related (13 sources) Tear of medial meniscus of knee; Translations: [Other tear of medial meniscus, current injury, unspecified knee, initial encounter] Onset: 02-27-2020 05-20-2022 Episodic Other non-traumatic joint disorders (4 sources) Pain in right hip; Translations: [PAIN IN RIGHT HIP] Onset: 01-13-2022 Episodic Other non-traumatic joint disorders (1 source) Pain in left hip; Translations: [PAIN IN LEFT HIP] Onset: 01-14-2022 Episodic Residual codes; unclassified (20 sources) Acquired absence of breast; Translations: [Acquired absence of right breast and nipple] Onset: 05-20-2022 Episodic Residual codes; unclassified (2 sources) Acquired absence of right breast and nipple; Translations: [Acquired absence of right breast and nipple] Onset: 07-09-2022 Episodic Residual codes; unclassified (2 sources) Other specified postprocedural states; Translations: [Other specified postprocedural states] Onset: 08-12-2022 Episodic Unclassified (1 source) CONTACT W/AND (SUSP) EXPOS COVID-19; Translations: [CONTACT W/AND (SUSP) EXPOS COVID-19] Onset: 03-02-2022 Results Test Name Value Interpretation Reference Range [facility] Surgery Office/Clinic Noteon 07-20-2023 Surgery Office/Clinic Note Chief Complaint Patient presents to follow up from surgery. History of Present Illness 73 year old female, patient of Dr. Villagran Patient presented with post-op hernia repair. The procedure was a robotic left inguinal hernia repair. The date of procedure was 07/01/2023. Bowels are working better now with a bowel regimen, constipated colon was seen at the time of surgery Physical Exam Vitals & Measurements T: 36.2 ?C (Temporal Artery) HT: 168 cm WT: 94.80 kg (Estimated) WT: 94.80 kg (Dosing) BMI: 33.59 Gen: Awake, alert Lungs: non-labored respiration Abdomen: Soft, non-tender, non-distended, no masses Incisions healing well Assessment/Plan 1. Left inguinal hernia Doing well status post robotic repair We will follow-up as needed Problem List/Past Medical History Ongoing CAD (coronary artery disease) Chronic GERD Cystocele Depression Hyperlipidemia Hypothyroidism OAB (overactive bladder) Osteoarthritis of left hip Vaginal atrophy Historical Arthritis of left hip Breast cancer Colon polyps: hyperplastic & tubular adenomas (04/2019) COVID-19 (09/2021) Hernia, inguinal, left History of colonoscopy with polypectomy ME (myocardial infarction) (2013) Morbid obesity with body mass index (BMI) of 40.0 or higher PMB (postmenopausal bleeding) Sleep apnea Thickened endometrium Vaginal ulcer Procedure/Surgical History Bilateral cataract extraction Extensive vaginal resection of vaginal tissue Hysteroscopy, D&C Left knee arthroscopy Right shoulder, rotator cuff repair Sinus surgery (1984) Tubal ligation (1989) Right mastectomy (1992) Right knee arthroscopy (07/2014) Cardiac catheterization (07/2014) [place] Procedure Robotic Si (05/04/2017) Dilatation and Curettage (05/04/2017) Repair Anterior and Posterior Vagina (05/04/2017) Total Hysterectomy Robotic Si (05/04/2017) Colonoscopy Polypectomy (04/20/2019) Esophageal Manometry (02/15/2020) Esophagogastroduodenoscopy with Biopsy with Arana (02/15/2020) Urodynamic studies (05/26/2021) Repair Anterior Vagina (06/27/2021) Right breast reconstruction (06/2022) Repair Hernia Inguinal Robotic X/Xi (Left) (07/01/2023) Medications Afrin 0.05% nasal spray, See Instructions Aspirin Low Dose, 81 mg, Oral, Daily Calcium 600+D, 2, Oral, Daily citalopram 20 mg oral tablet Collagen, 1 tabs, Oral, Daily esomeprazole 40 mg oral delayed release capsule, 40 mg= 1 caps, Oral, qAM famotidine 20 mg oral tablet, 20 mg= 1 tabs, Oral, HS (at bedtime) Flax Seed Oil, 1200 mg, Oral, Daily ibuprofen 600 mg oral tablet levothyroxine 50 mcg (0.05 mg) oral tablet, 50 mcg= 1 tabs, Daily melatonin 10 mg oral tablet, 10 mg= 1 tabs, Oral, HS (at bedtime) multivitamin, 1 tabs, Oral, Daily Ozempic (0.25 mg or 0.5 mg dose), 0.25 mg, Subcutaneous, Weekly Probiotic Formula oral capsule, 1 caps, Oral, Daily simvastatin 20 mg oral tablet, 20 mg= 1 tabs, HS (at bedtime) Toviaz 8 mg oral tablet, extended release, 8 mg= 1 tabs, Oral, Daily, 4 refills Allergies penicillins (Rash) sulfa drugs (Rash) Social History Alcohol Current, 1-2 times per year Exercise Exercise type: Limited mobility d/t back issues.. Home/Environment Lives with Spouse. Living situation: Home/Independent. , Home equipment: CPAP/BiPAP. 1 INSIDE CAT Nutrition/Health Regular, Caffeine intake amount: DRINK SWEET TEA DAILY, OCCASSIONAL COKE AND CHOCOLATE. Sexual Sexually active: Yes. Substance Abuse Denies All Tobacco Never (less than 100 in lifetime) Use:. Family History Breast cancer: Aunt/Uncle. Congestive heart failure: Father. Heart disease: Father. Natural : Mother. Stroke..: Mother and Father. Health Maintenance Colonoscopy 04/20/2019 Electronically signed by Jovan Betancourt MD 07/21/23 07:44 EST Electronically signed by Teresita Winn 07/13/2023 13:33 EDT Electronically signed by Emely Zendejas PA-C 07/21/2023 08:27 EST Normal [facility] Operative Reporton 3 Operative Report Indication for Surgery Patient is a 73 year old female with a symptomatic reducible left inguinal hernia Preoperative Diagnosis Symptomatic left inguinal hernia Postoperative Diagnosis same Operation Robotic left inguinal hernia repair Surgeon(s) Asia Zendejas PA-C Anesthesia [employer] CONSULTANT, GET Estimated Blood Loss 5 ml Urine Output none Findings Indirect left inguinal hernia Specimen(s) none Complications none Technique Patient was brought to the operating room, placed in supine position, and general anesthesia was induced. The abdomen was prepped and draped in sterile fashion. Small epigastric incision was made and a Veress needle was inserted. The abdomen was insufflated with carbon dioxide gas to 15 mmHg. Veress needle was removed and an 8 mm robotic trocar was placed. Bilateral 8 mm trocars were inserted and the patient was positioned in Trendelenburg. The robot was docked. Inspection of the pelvis revealed an intact right inguinal region. Obvious indirect left inguinal hernia was identified. Peritoneal flap was generated using robotic scissors. The hernia sac was reduced. Dallas's ligament was identified medially. Bard 3D mid max extra-large mesh was inserted and secured with 3-0 Vicryl to Dallas's ligament medially. Mesh was secured to the underside of fascia laterally with 3-0 Vicryl. Superiorly it was also secured to the underside of fascia. The peritoneal flap was closed with running 3-0 Strata fix suture. Carbon dioxide gas was evacuated as trocars were removed. Dermis at all 3 sites was reapproximated with 4-0 Monocryl. Dermabond was applied. Patient was extubated and taken to recovery room in stable condition. Tourniquet Time N/A Sponge/Needle Count Correct X2 Fluid Count 800 ml Catheters, Drains, Tubes Peripheral IV *Ms. Zendejas assisted with the surgery. She assisted with trocar placement, docking, instrument exchange, exposure, suturing, wound closure, camera operation. Electronically signed by Jovan Betancourt MD 07/01/23 10:19 EDT Normal [facility] Plastic Surgery Visit Report on 06-30-2023 Plastic Surgery Visit Report [facility] [address], [address] [place] [id number] OFFICE VISIT Date of Service: 06/30/23 MR#: [id number] Acct: [id number] Name: BERENICE NOLASCO Rep #: [id number] : 1950 Provider: Dr. Apolinar flores MD Age/Sex: 73/F Location: [facility] Status: Signed Intake Vital Signs 05/05/23 14:25 06/09/23 13:57 06/30/23 15:08 Height 5 ft 6 in 5 ft 6 in 5 ft 6 in Weight: 217 lb 207 lb 6 oz BMI 35.0 33.5 BP 120/78 135/81 H Blood Pressure Location Lt brachial Lt brachial Position Sitting Sitting Respiration 16 16 Pulse 70 65 Pulse Source Monitor NIBP Temp 97.7 F L 97.3 F L Temp Source Temporal Oral Pulse Oximetry (%) 96 94 Oxygen Delivery Method room air room air Intake Visit Reasons: preop #1 left breast red/ right creel operator port Chief Complaint: left breast red and removal right expand port Is patient in pain?: No Allergies Penicillins Allergy (Verified 06/30/23 15:10) Rash Sulfa (Sulfonamide Antibiotics) Allergy (Verified 06/30/23 15:10) Rash Medications ascorbic acid 30 mg-collagen, hydrolyzed 833.3 mg tablet (Collagen Skin Renewal) 1 tab PO DAILY 05/05/23 [History Confirmed 06/30/23] aspirin 81 mg tablet,delayed release 81 mg PO DAILY 05/05/23 [History Confirmed 06/30/23] calcium carbonate 600 mg-vitamin D3 12.5 mcg (500 unit) capsule (Calcium 600 with Vitamin D3) 1 cap PO DAILY 05/05/23 [History Confirmed 06/30/23] citalopram 20 mg tablet 30 mg PO DAILY 05/05/23 [History Confirmed 06/30/23] esomeprazole magnesium 40 mg capsule,delayed release 40 mg PO DAILY 05/05/23 [History Confirmed 06/30/23] famotidine 20 mg tablet 20 mg PO DAILY 05/05/23 [History Confirmed 06/30/23] fesoterodine 8 mg tablet,extended release 24 hr 8 mg PO DAILY 05/05/23 [History Confirmed 06/30/23] levothyroxine 50 mcg tablet 50 mcg PO DAILY 05/05/23 [History Confirmed 06/30/23] melatonin 10 mg tablet 10 mg PO HS 05/05/23 [History Confirmed 06/30/23] xyqkmzvg-ruh-uroqh acid 0.4 mg-lycopene 300 mcg-lutein 250 mcg tablet (Complete Multivitamin Adult 50 Plus) 1 tab PO DAILY 05/05/23 [History Confirmed 06/30/23] semaglutide 0.25 mg or 0.5 mg (2 mg/3 mL) subcutaneous pen injector (Ozempic) 0.25 mg subcut QWEEK 05/05/23 [History Confirmed 06/30/23] simvastatin 20 mg tablet 20 mg PO DAILY 05/05/23 [History Confirmed 06/30/23] [facility] Medical History (Updated 05/05/23 @ 15:[address] Apolinar Henry MD) Breast cancer Cataracts, bilateral Chronic SI joint pain Dental root implant present GERD (gastroesophageal reflux disease) High cholesterol Obstructive sleep apnea on CPAP Surgical History (Updated 05/05/23 @ 14:23 by Elin Beckwith) Cataract (lens) fragments in eye following cataract surgery H/O arthroscopy of shoulder History of arthroscopy of knee History of bladder suspension procedure History of modified radical mastectomy of right breast History of sinus surgery Family History (Updated 05/05/23 @ 14:24 by Elin Beckwith) Mother Heart disease Father Heart disease Social History (Updated 05/05/23 @ 14:23 by Elin Beckwith) Smoking Status: Never smoker alcohol intake: current substance use type: does not use additional social history: Aspirin use daily. Occasional Ibuprofen use. HPI preop #1 left breast red/ right creel operator port Details: Berenice comes in for preliminary preparation regarding the upcoming surgeries on her breast. We will be performing a reduction on her left breast to match her right reconstructed side and removing the port on the right side. She will be having hernia repair surgery tomorrow. She has had some preparation for this including laboratory and EKG. I asked her to obtain the results for us so that we would not have to repeat them. Additionally she has had a mammogram a few months ago on the left side and I have asked her to forward the results to us. She states she has had some recent history of dizziness and has had a complete work-up. This resulted in a diagnosis of UTI for which she is being treated. She has recently lost some weight on Ozempic. Exam Details Patient with breast asymmetry with a right reconstructed breast and left breast ptosis. There is no palpable masses. There is a small knuckle of rippling of implant on the right side. The port is easily palpable. She has ptosis and hypertrophy of the left breast. Const General: cooperative, healthy appearing and no acute distress Neuro General: patient alert and patient awake Extrem Other: Somewhat unsteady on her feet Psych Appearance: grossly normal Coding Level of Care Code Off vis,est,level 3 Diagnoses History of cancer of right breast Z85.3 Breast hypertrophy N62 Breast asymmetry between chippewa-cree breast and reconstructed breast N65.1 Assessment (more content not included)... Normal [facility] .eGFRon 06-01-2023 GFR/1.73 sq M.predicted MDRD (S/P/Bld) [Vol rate/Area] mL/min/{1.73_m2} Normal >=60 [facility] Comment on above: Order Comment: Order added by Discern rule Result Comment: [facility] have implemented the eGFR calculation approach that does not have a coefficient for race and that conforms to the NKF-ASN Task Force Recommendations. Stages of Chronic Kidney Disease GFR Stage 3a Mild to moderate loss of kidney function 59 to 45 Stage 3b Moderate to severe loss of kidney function 44 to 33 Stage 4 Severe loss of kidney function 29 to 15 Stage 5 Kidney failure Less than 15 GFR calculated using the CKD-Epi Creatinine Equation (2020): eGFR = 142 X min(SCr/?, 1)? X max(SCr /?, 1)-1.200 X 0.9938Age X 1.012 [if female] Abbreviations/Units: eGFR (estimated glomerular filtration rate) = mL/min/1.73 m2 SCr (standardized serum creatinine) = mg/dL ? = 0.7 (females) or 0.9 (males) ? = -0.241 (females) or -0.302 (males) min = indicates the minimum of SCr/? or 1 max = indicates the maximum of SCr/? or 1 Age = years Performed By: #### E GFR #### [place] [address] CBC w/ Diffon 06-01-2023 Erythrocyte distribution wid th (RBC) [Ratio] 14.9 % High 11.6-14.8 [facility] Comment on above: Performed By: #### C BC #### [place] [address] Hematocrit (Bld) [Volume fraction] 41.0 % Normal 36.0-46.0 [facility] Comment on above: Performed By: #### C BC #### [place] [address] Hemoglobin (Bld) [Mass/Vol] 13.8 g/dL Normal 12.0-16. 0 [facility] Comment on above: Performed By: #### C BC #### [address] [address] MCH (RBC) [Entitic mass] 28.6 pg Normal 27.0-35.0 [facility] Comment on above: Performed By: #### C BC #### [place] [id number] MCHC 33.7 % Normal 31.0-37.0 [facility] Comment on above: Performed By: #### C BC #### [place] [address] MCV (RBC) [Entitic vol] 85.0 fL Normal 80.0-100.0 [facility] Comment on above: Performed By: #### C BC #### [place] [address] Platelet 180 x10*3/mcL Normal 150-450 [facility] Comment on above: Performed By: #### C BC #### [place] [address] Platelet mean volume (Bld) [Entitic vol] 8.6 fL Normal 7.5-11.5 [facility] Comment on above: Performed By: #### C BC #### [place] [address] RBC 4.82 x10*6/mcL Normal 3.80-5.20 [facility] Comment on above: Performed By: #### C BC #### [place] [address] WBC 8.6 x10*3/mcL Normal 4.5-11.0 [facility] Comment on above: Performed By: #### C BC #### [place] [address] CMPon 06-01-2023 Albumin [Mass/Vol] 4.1 g/dL Normal 3.7-5.3 [facility] Comment on above: Performed By: #### C OMP #### [place] [address] Albumin/Globulin [Mass ratio] 1.5 {ratio} Normal 1.1-2 .2 [facility] Comment on above: Performed By: #### C OMP #### [place] [address] Alk Phos 130 IU/L High 34-104 [facility] Comment on above: Performed By: #### C OMP #### [place] [address] ALT [Catalytic activity/Vol] 37 U/L Normal 7-52 [facility] Comment on above: Performed By: #### C OMP #### [place] [address] Anion gap [Moles/Vol] 10 mmol/L Normal 7-17 [facility] Comment on above: Performed By: #### C OMP #### [place] [address] AST [Catalytic activity/Vol] 31 U/L Normal 13-39 [facility] Comment on above: Performed By: #### C OMP #### [place] [address] Bili Total 0.6 mg/dL Normal 0.3-1.0 [facility] Comment on above: Performed By: #### C OMP #### [place] [address] Calcium [Mass/Vol] 9.4 mg/dL Normal 8.6-10.3 [facility] Comment on above: Performed By: #### C OMP #### [place] [address] Chloride 103 IU/L Normal 98-107 [facility] Comment on above: Performed By: #### C OMP #### [place] [address] CO2 [Moles/Vol] 28 mmol/L Normal 21-31 [facility] Comment on above: Performed By: #### C OMP #### [place] [address] Creatinine [Mass/Vol] 0.79 mg/dL Normal 0.60-1.20 [facility] Comment on above: Performed By: #### C OMP #### [place] [address] Glucose [Mass/Vol] 108 mg/dL High 70-99 [facility] Comment on above: Performed By: #### C OMP #### [place] [address] Potassium [Moles/Vol] 4.2 mmol/L Normal 3.4-4.8 [facility] Comment on above: Performed By: #### C OMP #### [place] [address] Protein [Mass/Vol] 6.8 g/dL Normal 6.0-8.3 [facility] Comment on above: Performed By: #### C OMP #### [place] [address] Sodium [Moles/Vol] 137 mmol/L Normal 136-145 [facility] Comment on above: Performed By: #### C OMP #### [place] [address] Urea nitrogen [Mass/Vol] 17 mg/dL Normal 7-25 [facility] Comment on above: Performed By: #### C OMP #### [place] [address] Urea nitrogen/Creatinine [Ma ss ratio] 21.5 mg/mg High 10.0-20.0 [facility] Comment on above: Performed By: #### C OMP #### [place] [address] Diff Autoon 06-01-2023 Baso Absolute 0.0 x10*3/mcL Normal 0.0-0.2 [facility] Comment on above: Performed By: #### . Automated Diff #### [place] [address] Basophils/100 WBC (Bld) 0.3 % Normal 0.0-1.5 [facility] Comment on above: Performed By: #### . Automated Diff #### [place] [address] Eos Absolute 0.1 x10*3/mcL Normal 0.0-0.4 [facility] Comment on above: Performed By: #### . Automated Diff #### [place] [address] Eosinophils/100 WBC (Bld) 1.1 % Normal 0.0-5.4 [facility] Comment on above: Performed By: #### . Automated Diff #### [address] [address] Lymph Absolute 2.0 x10*3/mcL Normal 1.0-4.8 [facility] Comment on above: Performed By: #### . Automated Diff #### [address] [address] Lymphocytes/100 WBC (Bld) 23.1 % Low 27.2-40.8 [facility] Comment on above: Performed By: #### . Automated Diff #### [address] [address] Juab Absolute 0.4 x10*3/mcL Normal 0.1-1.1 [facility] Comment on above: Performed By: #### . Automated Diff #### [address] [address] Monocytes/100 WBC (Bld) 5.1 % Normal 3.7-11.9 [facility] Comment on above: Performed By: #### . Automated Diff #### [address] [address] Neutro Absolute 6.1 x10*3/mcL Normal 1.8-7.7 [facility] Comment on above: Performed By: #### . Automated Diff #### [address] [address] Neutro Auto 70.4 % Normal 47.2-70.8 [facility] Comment on above: Performed By: #### . Automated Diff #### [address] [address] Plastic Surgery Visit Report on 05-05-2023 Plastic Surgery Visit Report [facility] [address], [address] [place], [place] [address] OFFICE VISIT Date of Service: 05/05/23 MR#: [id number] Acct: [id number] Name: BERENICE NOLASCO Rep #: [id number] : 1950 Provider: Dr. Apolinar flores MD Age/Sex: 73/F Location: [facility] Status: Signed Intake Vital Signs 05/05/23 14:25 Height 5 ft 6 in Weight: 217 lb BMI 35.0 BP 120/78 Blood Pressure Location Lt brachial Position Sitting Respiration 16 Pulse 70 Pulse Source Monitor Temp 97.7 F L Temp Source Temporal Pulse Oximetry (%) 96 Oxygen Delivery Method room air Intake Visit Reasons: Consult Chief Complaint: Right breast reconsruction consult Mingle Operator Required: No Accompanied by: Is patient in pain?: Yes (Back, hip, groin) Pain scale (1-10): 6 Allergies Penicillins Allergy (Verified 05/05/23 14:24) Rash Sulfa (Sulfonamide Antibiotics) Allergy (Verified 05/05/23 14:24) Rash Medications ascorbic acid 30 mg-collagen, hydrolyzed 833.3 mg tablet (Collagen Skin Renewal) 1 tab PO DAILY 05/05/23 [History Confirmed 05/05/23] aspirin 81 mg tablet,delayed release 81 mg PO DAILY 05/05/23 [History Confirmed 05/05/23] calcium carbonate 600 mg-vitamin D3 12.5 mcg (500 unit) capsule (Calcium 600 with Vitamin D3) 1 cap PO DAILY 05/05/23 [History Confirmed 05/05/23] citalopram 20 mg tablet 30 mg PO DAILY 05/05/23 [History Confirmed 05/05/23] esomeprazole magnesium 40 mg capsule,delayed release 40 mg PO DAILY 05/05/23 [History Confirmed 05/05/23] famotidine 20 mg tablet 20 mg PO DAILY 05/05/23 [History Confirmed 05/05/23] fesoterodine 8 mg tablet,extended release 24 hr 8 mg PO DAILY 05/05/23 [History Confirmed 05/05/23] levothyroxine 50 mcg tablet 50 mcg PO DAILY 05/05/23 [History Confirmed 05/05/23] melatonin 10 mg tablet 10 mg PO HS 05/05/23 [History Confirmed 05/05/23] bytuzfqd-wxr-euwco acid 0.4 mg-lycopene 300 mcg-lutein 250 mcg tablet (Complete Multivitamin Adult 50 Plus) 1 tab PO DAILY 05/05/23 [History Confirmed 05/05/23] semaglutide 0.25 mg or 0.5 mg (2 mg/3 mL) subcutaneous pen injector (Ozempic) 0.25 mg subcut QWEEK 05/05/23 [History Confirmed 05/05/23] simvastatin 20 mg tablet 20 mg PO DAILY 05/05/23 [History Confirmed 05/05/23] [facility] Medical History (Updated 05/05/23 @ 15:[address] Apolinar Henry MD) Breast cancer Cataracts, bilateral Chronic SI joint pain Dental root implant present GERD (gastroesophageal reflux disease) High cholesterol Obstructive sleep apnea on CPAP Surgical History (Updated 05/05/23 @ 14:23 by Elin Beckwith) Cataract (lens) fragments in eye following cataract surgery H/O arthroscopy of shoulder History of arthroscopy of knee History of bladder suspension procedure History of modified radical mastectomy of right breast History of sinus surgery Family History (Updated 05/05/23 @ 14:24 by Elin Beckwith) Mother Heart disease Father Heart disease Social History (Updated 05/05/23 @ 14:23 by Elin Beckwith) Smoking Status: Never smoker alcohol intake: current substance use type: does not use additional social history: Aspirin use daily. Occasional Ibuprofen use. HPI Consult Details: Berenice is a 73-year-old female patient well-known to me after having undergone reconstruction with a tissue creel operator. Her initial right mastectomy was done approximately 30 years ago. She underwent placement of a tissue creel operator in . Her last fill was in . She has a total of 390 cc of saline and the implant which is the capacity of the creel operator as a permanent prosthesis. Her implant is a Ewell smooth round spectrum style 1400. Reference #[id number] has decided to leave the creel operator and is a permanent implant. We had previously discussed performing a left breast reduction to help improve symmetry. ROS General General: Yes good health; No fatigue HENMT HENMT: No rhinitis, sore throat/mouth sore, contacts or glaucoma Endo Endocrine: No thyroid disease, polydipsia, heat intolerance, cold intolerance or hepatitis Skin Skin: No bleeding, bruising or changing moles Musc Musculoskeletal: Yes joint pain and back pain; No joint stiffness, muscle weakness or osteoarthritis Neuro Neurological: No headache(s) and No lightheadedness Cardio Cardiovascular: No chest pain, pacemaker or fatigue Psych Psychiatric: No depression or claustrophobia Resp Respiratory: Yes sleep apnea; No spitting up, shortness of breath, asthma, emphysema, TB or cough Gastro Gastrointestinal: No diarrhea, constipation or blood in stool Chet Hematologic: No anemia Genitourinary: No urinary frequency, blood in urine or incontinence Exam Chest Other: Patient with a creel operator in place on the right breast. The port is palpable in the in (more content not included)... Normal [facility] Urology Office/Clinic Noteon 02-18-2023 Urology Office/Clinic Note Chief Complaint 1 month follow up sx check History of Present Illness 72-year-old female with history of OAB presents for symptom check. She has seen improvement on Toviaz. She is currently voiding every 2+ hours. Nocturia still x2-3, but she does sleep for 12 hours at night. She is wearing 1 pad during the day, 1 dependent night. Pad during the day is typically dry, occasionally wakes up with urgency and unable to make it to the bathroom in time and leaks. She has met with a weight loss specialist and plans to start Ozempic in the next few days. She has not been practicing pelvic floor exercises. Her has had a prostatectomy in practices pelvic floor exercises daily. History: s/p LUIGI/BSO with Anterior and Posterior repair and [place] [address] Nancy Dallas. She then had another anterior colporrhaphy [address] Nancy Dallas. Failed oxybutynin and trospium prior, Myrbetriq too expensive. Review of Systems General: No fever, chills. Physical Exam Vitals & Measurements T: 36.8 ?C (Temporal Artery) WT: 104.2 kg (Dosing) WT: 104.2 kg (Estimated) General: well-developed, in no acute distress. Neuro: Alert and oriented. Gait is steady. Speech is clear and appropriate. MS: Equal movement x 4 extremities. No obvious weakness. Cardiovascular: No cyanosis. Lungs: No respiratory distress. No audible wheezing. Additional Vitals No qualifying data available. Assessment/Plan 1. OAB (overactive bladder) Better symptom control on Toviaz than prior medications. She is actively trying to lose weight. Briefly discussed third line therapies. Encouraged her to practice pelvic floor exercises at home. She does have a who practices some daily and will try to be more mindful of doing these. Follow-up in 6 months for symptom check. Hopefully symptoms continue to improve when she loses weight. Problem List/Past Medical History Ongoing CAD (coronary artery disease) Chronic GERD CPAP/BiPAP dependent Cystocele Depression Encounter for gynecological examination (general) (routine) without abnormal findings GERD Hyperlipidemia OAB (overactive bladder) Vaginal atrophy Historical Arthritis of left hip Breast cancer Chronic cough Drug-induced obesity with body mass index (BMI) of 35 to less than 40 Feeling of incomplete bladder emptying H/O cardiac catheterization History of breast cancer History of colonoscopy with polypectomy ME (myocardial infarction) Morbid obesity with body mass index (BMI) of 40.0 or higher Obesity, BMI not known PMB (postmenopausal bleeding) Sleep apnea Thickened endometrium Vaginal ulcer Procedure/Surgical History cataract bilateral extensive vaginal resection of vaginal tissue hysteroscopy d&c knee surgery bilateral shoulder surgery sinus surgery (1984) tubal ligation (1989) mastectomy (1992) Arthroscopy of knee (07/2014) Cardiac catheterization (07/2014) Blakely Procedure Robotic Si (05/04/2017) Dilatation and Curettage (05/04/2017) Repair Anterior and Posterior Vagina (05/04/2017) Total Hysterectomy Robotic Si (05/04/2017) Colonoscopy Polypectomy (04/20/2019) Esophageal Manometry (02/15/2020) Esophagogastroduodenoscopy with Biopsy with Arana (02/15/2020) Urodynamic studies (05/26/2021) Repair Anterior Vagina (06/27/2021) Medications Albuterol (Eqv-ProAir HFA) 90 mcg/inh inhalation aerosol Aspirin Low Dose, 81 mg, Oral, Daily Calcium 600+D, 2, Oral, Daily citalopram 20 mg oral tablet Collagen, 1 tabs, Oral, Daily esomeprazole 40 mg oral delayed release capsule, 40 mg= 1 caps, Oral, qAM famotidine 20 mg oral tablet, 20 mg= 1 tabs, Oral, Daily Flax Seed Oil, 1200 mg, Oral, Daily ibuprofen 600 mg oral tablet levothyroxine 50 mcg (0.05 mg) oral tablet, 50 mcg= 1 tabs, Daily multivitamin, 1 tabs, Oral, Daily Myrbetriq 50 mg oral tablet, extended release, 1 tabs, Oral, Daily simvastatin 20 mg oral tablet, 20 mg= 1 tabs, HS (at bedtime) Toviaz 8 mg oral tablet, extended release, 8 mg= 1 tabs, Oral, Daily, 4 refills trospium 60 mg oral capsule, extended release Zoloft, 200 mg, Oral, qAM Allergies penicillins (Rash) sulfa drugs (Rash) Electronically signed by Yolette MUNSON Kevinroberto Workman 02/18/23 15:27 EDT Normal [facility] Urology Office/Clinic Noteon 12-23-2022 Urology Office/Clinic Note Chief Complaint 1 year follow up med check History of Present Illness 72-year-old female presents for symptom check. s/p LUIGI/BSO with Anterior and Posterior repair and [place] [address] Martinez. h/o OAB, last seen March 2021 and was on trospium at the time. Failed oxybutynin prior, Myrbetriq too expensive. She then had another anterior colporrhaphy [address] Nancy Dallas. She has continue trospium although does not feel like it is working well for her. She is voiding at least once an hour, nocturia x3. She does have UUI. Wearing 2 depends per day. Review of Systems General: No fever, chills. Physical Exam Vitals & Measurements T: 36.8 ?C (Temporal Artery) WT: 104.3 kg WT: 104.3 kg (Dosing) General: well-developed, in no acute distress. Neuro: Alert and oriented. Gait is steady. Speech is clear and appropriate. MS: Equal movement x 4 extremities. No obvious weakness. Cardiovascular: No cyanosis. Lungs: No respiratory distress. No audible wheezing. Additional Vitals No qualifying data available. Assessment/Plan 1. OAB (overactive bladder) Discussed first, second, and third line OAB treatment options. She would like to try at home pelvic floor exercises. Her has had a radical prostatectomy and practices Kegels and core exercises daily. She is going to start trying to incorporate these into her routine. She is also seeing a weight loss specialist next week and trying to lose some weight. She would like to try another medication. Is interested in seeing if Myrbetriq is now more affordable. We will send to pharmacy. If too expensive will send Toleigh ann. Follow-up in 6 weeks for symptom check. I did give her OAB handout and she is going to look over third line therapies as well. Ordered: mirabegron, 1 tabs, Oral, Daily, do not crush or chew, # 30 tabs, 11 Refill(s), [facility]: [id number] Problem List/Past Medical History Ongoing Arthritis of left hip CAD (coronary artery disease) Chronic cough Chronic GERD CPAP/BiPAP dependent Cystocele Depression Drug-induced obesity with body mass index (BMI) of 35 to less than 40 Encounter for gynecological examination (general) (routine) without abnormal findings Feeling of incomplete bladder emptying GERD H/O cardiac catheterization History of breast cancer History of colonoscopy with polypectomy Hyperlipidemia ME (myocardial infarction) Morbid obesity with body mass index (BMI) of 40.0 or higher Obesity, BMI not known PMB (postmenopausal bleeding) Sleep apnea INES (stress urinary incontinence, female) Thickened endometrium Urinary frequency Vaginal ulcer Historical Breast cancer Procedure/Surgical History cataract bilateral extensive vaginal resection of vaginal tissue hysteroscopy d&c knee surgery bilateral shoulder surgery sinus surgery (1984) tubal ligation (1989) mastectomy (1992) Arthroscopy of knee (07/2014) Cardiac catheterization (07/2014) Blakely Procedure Robotic Si (05/04/2017) Dilatation and Curettage (05/04/2017) Repair Anterior and Posterior Vagina (05/04/2017) Total Hysterectomy Robotic Si (05/04/2017) Colonoscopy Polypectomy (04/20/2019) Esophageal Manometry (02/15/2020) Esophagogastroduodenoscopy with Biopsy with Arana (02/15/2020) Urodynamic studies (05/26/2021) Repair Anterior Vagina (06/27/2021) Medications Albuterol (Eqv-ProAir HFA) 90 mcg/inh inhalation aerosol Aspirin Low Dose, 81 mg, Oral, Daily Calcium 600+D, 2, Oral, Daily citalopram 20 mg oral tablet Collagen, 1 tabs, Oral, Daily esomeprazole 40 mg oral delayed release capsule, 40 mg= 1 caps, Oral, qAM famotidine 20 mg oral tablet, 20 mg= 1 tabs, Oral, Daily Flax Seed Oil, 1200 mg, Oral, Daily ibuprofen 600 mg oral tablet levothyroxine 50 mcg (0.05 mg) oral tablet, 50 mcg= 1 tabs, Daily multivitamin, 1 tabs, Oral, Daily Myrbetriq 50 mg oral tablet, extended release, 50 mg= 1 tabs, Oral, Daily, 11 refills simvastatin 20 mg oral tablet, 20 mg= 1 tabs, HS (at bedtime) trospium 60 mg oral capsule, extended release, See Instructions Zoloft, 200 mg, Oral, qAM Allergies penicillins (Rash) sulfa drugs (Rash) Electronically signed by Kevin Joaquin 12/23/22 17:08 EDT Normal [facility] VC CONSULT FOLLOWUPon 2022 VC CONSULT FOLLOWUP Patient: ELIAZAR NOLASCO Exam Date: 12/16/2022 : 1950 Gender:F Ordering : SHAIKH Quirino VILLAGRAN . Admission #: [id number] Family : Order #: [id number] CLICK HERE TO VIEW EXAM RADIOLOGY REPORT PROCEDURE: VEIN CENTER CONSULTATION FOLLOWUP VEIN CENTER - OFFICE VISIT FOLLOW UP COMPARISON: None. PROGRESS NOTES: The patient reports mild improvement in her symptoms after wearing compression stockings the past 3 months. The patient complains of continued pain and swelling in both legs affecting her activities of daily living. The pain requires her to stop and rest at intervals. The patient does have improvement with leg elevation and over the counter oral analgesics. Physical exam demonstrates mild bilateral subcutaneous edema lower leg and ankles. Scattered varicose veins are observed with no areas of active ulceration or hemosiderin staining. No erythema or warmth to suggest cellulitis or thrombophlebitis. Intravenous laser ablation and micro foam chemical ablation with explained at length to the patient and her . The risk benefits and alternatives were discussed and all questions were answered. Alternatives including conservative treatment with continued compression stockings, surgical ligation and stripping and phlebectomy were discussed. The patient would like to proceed with treatments. I recommended up to 3 intravenous laser ablations with bilateral micro foam chemical ablation as necessary. We would start with the right great saphenous vein IMPRESSION: 1. Mild improvement in symptoms using bilateral compression stockings for the past 3 months PLAN: Endovenous laser ablation right great saphenous vein Nurse notes, history and physical were reviewed and confirmed, see attached forms. The nurse was present throughout the physical exam and consultation Dictated by: Adam Schwartz MD on 12/16/2022 at 14:55 Approved by: Adam Schwartz MD on 12/16/2022 at 14:59 Normal [facility] l CBC AUTO DIFFon 09-16-2022 BASO # 0.0 103/ul Normal 0.0-0.1 [facility] Comment on above: Performed By: #### C BC #### [facility] [address] [place] [address] Dr. Danielle Penaloza Basophils/100 WBC (Bld) 0.5 % Normal 0.2-2.0 [facility] Comment on above: Performed By: #### C BC #### [facility] [address] [place] [address] Dr. Danielle Penaloza EO # 0.1 103/ul Normal 0.0-0.7 [facility] Comment on above: Performed By: #### C BC #### [facility] [address] [place] [address] Dr. Danielle Penaloza Eosinophils/100 WBC (Bld) 1.2 % Normal 0.9-7.0 [facility] Comment on above: Performed By: #### C BC #### [facility] [address] [place] [address] Dr. Danielle Penaloza Erythrocyte distribution wid th (RBC) [Ratio] 14.2 % Normal 11.0-15.0 [facility] Comment on above: Performed By: #### C BC #### [facility] [address] [place] [address] Dr. Danielle Penaloza Hematocrit (Bld) [Volume fraction] 42.5 % Normal 3 6.0-48.0 [facility] Comment on above: Performed By: #### C BC #### [facility] [address] [place] [address] Dr. Danielle Penaloza Hemoglobin (Bld) [Mass/Vol] 14.1 g/dL Normal 12.0-16. 0 [facility] Comment on above: Performed By: #### C BC #### [facility] [address] [place] [address] Dr. Danielle Penaloza IG # 0.02 10e3/ul Normal 0.00-0.03 [facility] Comment on above: Performed By: #### C BC #### [facility] [address] [place] [address] Dr. Danielle Penaloza IG % 0.2 % Normal 0.0-0.5 [facility] Comment on above: Performed By: #### C BC #### [facility] [address] [place] [address] Dr. Danielle Penaloza LYMPH # 1.9 103/ul Normal 1.2-3.8 [facility] Comment on above: Performed By: #### C BC #### [facility] [address] [place] [address] Dr. Danielle Penaloza Lymphocytes/100 WBC (Bld) 23.4 % Normal 20.5-60.0 [facility] Comment on above: Performed By: #### C BC #### [facility] [address] [place] [address] Dr. Danielle Penaloza MANUAL DIFF REQ NO Normal The [facility] Comment on above: Performed By: #### C BC #### [facility] [address] [place] [address] Dr. Danielle Penaloza MCH (RBC) [Entitic mass] 28.1 pg Normal 26.7-34.0 [facility] Comment on above: Performed By: #### C BC #### [facility] [address] [place] [address] Dr. Danielle Penaloza MCHC (RBC) [Mass/Vol] 33.2 g/dL Normal 29.9-35.2 [facility] Comment on above: Performed By: #### C BC #### [facility] [address] [place] [address] Dr. Danielle Penaloza MCV (RBC) [Entitic vol] 84.8 fL Normal 81.0-99.0 [facility] Comment on above: Performed By: #### C BC #### [facility] [address] [place] [address] Dr. Danielle Penaloza MONO # 0.5 103/ul Normal 0.3-0.8 [facility] Comment on above: Performed By: #### C BC #### [facility] [address] [place] [address] Dr. Danielle Penaloza Monocytes/100 WBC (Bld) 6.0 % Normal 1.7-12.0 [facility] Comment on above: Performed By: #### C BC #### [facility] [address] [place] [address] Dr. Danielle Penaloza NEUT # 5.5 103/ul Normal 1.4-6.5 [facility] Comment on above: Performed By: #### C BC #### [facility] [address] [place] [address] Dr. Danielle Penaloza Neutrophils/100 WBC (Bld) 68.7 % Normal 43.0-75.0 [facility] Comment on above: Performed By: #### C BC #### [facility] [address] [place] [address] Dr. Danielle Penaloza Platelet mean volume (Bld) [Entitic vol] 9.9 fL Normal 9.5-13.5 [facility] Comment on above: Performed By: #### C BC #### [facility] [address] [place] [address] Dr. Danielle Penaloza PLT 186 103/ul Normal 150-450 [facility] Comment on above: Performed By: #### C BC #### [facility] [address] [place] [address] Dr. Danielle Penaloza RBC 5.01 106/ul Normal 4.20-5.40 [facility] Comment on above: Performed By: #### C BC #### [facility] [address] [place] [address] Dr. Danielle Penaloza WBC 8.1 103/ul Normal 4.0-11.0 [facility] Comment on above: Performed By: #### C BC #### [facility] [address] [place] [address] Dr. Danielle Penaloza PROF CHEM 8 (BAS METB)on Anion gap [Moles/Vol] 10.8 mmol/L Normal Th [facility] Comment on above: Performed By: #### B MP, TSH #### [facility] [address] [place] [address] Dr. Danielle Penaloza Calcium [Mass/Vol] 9.2 mg/dL Normal 8.5-10.1 [facility] Comment on above: Performed By: #### B MP, TSH #### [facility] [address] [place] [address] Dr. Danielle Penaloza Chloride [Moles/Vol] 103 mmol/L Normal 98-107 [facility] Comment on above: Performed By: #### B MP, TSH #### [facility] [address] [place] [address] Dr. Danielle Penaloza CO2 [Moles/Vol] 30.5 mmol/L Normal 21.0-32.0 [facility] Comment on above: Performed By: #### B MP, TSH #### [facility] [address] [place] [address] Dr. Danielle Penaloza Creatinine [Mass/Vol] 0.63 mg/dL Normal 0.55-1.02 [facility] Comment on above: Performed By: #### B MP, TSH #### [facility] [address] [place] [address] Dr. Danielle Penaloza EGFR-AF NAMIBIAN >60 Normal >=60 [facility] Comment on above: Performed By: #### B MP, TSH #### [facility] [address] [place] [address] Dr. Danielle Penaloza EGFR-NON AF NAMIBIAN >60 Normal >=60 [facility] Comment on above: Performed By: #### B MP, TSH #### [facility] [address] [place] [address] Dr. Danielle Penaloza Glucose [Mass/Vol] 101 mg/dL Normal 74-[address] [facility] Comment on above: Performed By: #### B NELSY, TSH #### [facility] [address] [place] [address] Dr. Danielle Penaloza Potassium [Moles/Vol] 4.3 mmol/L Normal 3.5-5.1 [facility] Comment on above: Performed By: #### B NELSY, TSH #### [facility] [address] [place] [address] Dr. Danielle Penaloza Sodium [Moles/Vol] 140 mmol/L Normal 136-[address] [facility] Comment on above: Performed By: #### B NELSY, TSH #### [facility] [address] [place] [address] Dr. Danielle Penaloza Urea nitrogen [Mass/Vol] 17.0 mg/dL Normal 7.0-18.0 [facility] Comment on above: Performed By: #### B NELSY, TSH #### [facility] [address] [place] [address] Dr. Danielle Penaloza Urea nitrogen/Creatinine [Mass ratio] 27.0 mg/mg Normal [facility] Comment on above: Performed By: #### B NELSY, TSH #### [facility] [address] [place] [address] Dr. Danielle Penaloza TSHon 09-16-2022 TSH 2.028 uIU/mL Normal 0.358-3.740 [facility] Comment on above: Performed By: #### B NELSY, TSH #### [facility] [address] [place] [address] Dr. Danielle Penaloza VC COMP CONSULTATIONon 09-16 VC COMP CONSULTATION Patient: NAYANA NOLASCO Exam Date: 09/16/2022 : 1950 Gender:F Ordering : SHAIKH Quirino VILLAGRAN . Admission #: [id number] Family : Order #: [id number] CLICK HERE TO VIEW EXAM RADIOLOGY REPORT PROCEDURE: VC VEIN CENTER CONSULTATION VEIN CENTER - OFFICE VISIT INITIAL COMPARISON: None. PROGRESS NOTES: [age] year old female who presents with a sudden onset 3 month history of bilateral lower extremity edema. The patient's lower extremity edema symmetric bilaterally. There has been a progression of symptoms over the past 3 months. This increases with prolonged leg dependency. The patient describes an improvement with rest and elevation. The patient denies any signs and symptoms to suggest arterial ischemia. The patient describes a family history of heart disease. The patient has drinking and smoking history of : Occasional alcohol consumption. Patient has a past medical history significant for coronary artery disease, obesity, hyperlipidemia hypothyroid, bilateral lower extremity edema. The patient denies a history of deep venous thrombus or pulmonary embolus. See separate history and physical for medication list. No prior treatment for varicose or spider veins. No current use of compression stockings. After review of nurse notes, history and physical exam I discussed at length the pathophysiology of venous hypertension and possible treatments, therapies and strategies available. We discussed at length the importance of elevating the lower extremities above the level of the heart, increased physical activity and compression stocking use. Ultrasound venous reflux study performed today was discussed at length with the patient. The report demonstrates dilated and markedly incompetent right great saphenous vein, right small saphenous vein, left great saphenous vein, left anterior accessory saphenous vein, and multiple incompetent branch saphenous varicosities bilaterally.. PHYSICAL EXAM: The right leg demonstrates no visible varicosities, a few scattered spider veins, no ulceration, marked edema, no skin discoloration. The left leg demonstrates no visible varicosities, a few scattered spider veins, no ulceration, marked edema, no skin discoloration. Both thighs, legs and feet were symmetrically warm to the touch. Good posterior tibial and dorsalis pedis pulses were present bilaterally. IMPRESSION: 1. Marked bilateral lower extremity venous insufficiency 2. Bilateral lower extremity varicose veins 3. Marked bilateral lower extremity subcutaneous edema 4. No known flow significant arterial disease 5. CEAP: C3, AP, AP, DC PLAN: 1. Use of compression stockings 2. Elevated legs and increased physical activity symptomatic relief 3. Endovenous laser ablation of right great saphenous vein, left great saphenous vein, right small saphenous vein, left anterior accessory saphenous vein. 4. Microfoam chemical ablation of incompetent branch saphenous varicosities bilaterally. Nurse notes, history and physical were reviewed and confirmed, see attached forms. The nurse was present throughout the physical exam and consultation Dictated by: Ty Boudreaux M.D. on 09/16/2022 at 15:42 Approved by: Ty Boudreaux M.D. on 09/16/2022 at 15:49 [facility] VENOUS REFLUX CHARLIE LMTon 0 09-16-2022 VC VENOUS REFLUX CHARLIE LMT Patient: BERENICE NOLASCO Exam Date: 09/16/2022 : 1950 Gender:F Ordering : SHAIKH Quirino VILLAGRAN . Admission #: [id number] Family : Order #: [id number] CLICK HERE TO VIEW EXAM RADIOLOGY REPORT PROCEDURE: VEIN CENTER ULTRASOUND VENOUS REFLUX BILATERAL LIMTED COMPARISON: None. INDICATIONS: Localized edema R60.0 TECHNIQUE: Duplex imaging of the lower extremity to assess the deep and superficial venous system for the presence of deep or superficial venous incompetence and to document the location and severity of disease. The study includes evaluation of the great saphenous vein (GSV), anterior accessory saphenous vein (AASV) and small saphenous vein (SSV). Patient scanned in reverse Trendelenburg and standing. FINDINGS: RIGHT LOWER EXTREMITY: Saphenofemoral Junction Reflux: Yes 8.9mm 1.7 sec GSV: Diam (mm) Reflux/ Time (sec) Proximal Thigh 9.4 Yes 2.0 Mid Thigh 7.3 Yes 1.0 Distal Thigh 8.1 Yes 4.6 Prox Calf 6.5 Yes 3.8 Mid Calf 5.0 Yes 4.5 Saphenopopliteal Junction Reflux: 11.4mm Yes 1.9 SSV: Proximal Calf 9.5 Yes 0.7 Mid Calf 6.0 Yes 0.6 AASV: Proximal Thigh 2.1 No Mid Thigh 1.6 No Distal Thigh Thrombi: No acute or chronic thrombus. Compressibility: Normal. Flow: Deep venous reflux. Preforator: Mid/distal medial calf perf 2.8 mm with 1.5s reflux. Proximal posterior calf perf 5.7 mm with 0.4s reflux. Tech Note: Incompetent SFJ, GSV, SPJ, and SSV. Incompetent varicose vein mid medial lower leg measures 4.3 mm with 1.8s reflux. Varicose vein medial popliteal fossa measures 4.0 mm with 0.8s reflux. Medial distal lower leg varicose vein measures 4.0 mm with 0.3s reflux. Medial posterior calf varicose vein measures 4.4 mm without reflux. LEFT LOWER EXTREMITY: Saphenofemoral Junction Reflux: Yes 10.2 mm 1.5 sec GSV: Diam (mm) Reflux/Time (sec) Proximal Thigh 7.8 Yes 1.1 Mid Thigh 6.6 Yes 1.4 Distal Thigh 7.4 Yes 3.8 Prox Calf 5.5 Yes 3.8 Mid Calf 4.2 Yes 2.7 Saphenopopliteal Junction Relux: 6.1 mm No SSV: Proximal Calf 4.4 No Mid Calf 4.0 Yes 0.4 AASV: Proximal Thigh 5.6 Yes 3.0 Mid Thigh 5.7 Yes 1.4 Distal Thigh Thrombi: No acute or chronic thrombus. Compressibility: Normal. Flow: Deep venous reflux. 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 Proximal post calf perf measures 4.3 mm with 0.8s reflux. Tech Note: Incompetent SFJ, GSV and AASV. Incompetent varicose vein proximal posterior calf measures 4.9 mm with 1.0s reflux. Varicose vein mid medial lower leg measures 4.0 mm with 1.7s reflux. Proximal anterior lower leg varicose vein measures 4.4 mm with 0.8s reflux. CONCLUSION: 1. Abnormally dilated and incompetent right great saphenous, right small saphenous, left great saphenous, and left anterior accessory saphenous veins. 2. Multiple incompetent branch saphenous varicosities bilaterally. 3. Consultation for endovenous ablation is recommended. Dictated by: Ty Boudreaux M.D. on 09/16/2022 at 15:08 Approved by: Ty Boudreaux M.D. on 09/16/2022 at 15:41 Normal The [facility] XR CHEST PA AND LATERALon XR CHEST PA AND LATERAL Two-view CHEST RADIOGRAPH, 09/15/2022 3:50 PM EST COMPARISON: Chest, 10/08/2021. CLINICAL HISTORY: S/P FALL & RT SIDE CHEST PAIN post right breast reconstruction on 07/09/22. right breast pain from a fall on 09/08/22. She denied pain at the time of the fall but is now experiencing pain when she coughs or sneezes 6/10 on pain scale. Findings and impression: 1. No acute cardiopulmonary disease. 2. Normal heart size. 3. Postsurgical changes from right breast reconstruction with the right axillary node dissection. No acute osseous abnormality. Degenerative changes of the thoracic spine. Normal [facility] al XR Chest PA and Lateralon Findings and impress ion: 1. No acute cardiopulmonary disease. 2. Normal heart size. 3. Postsurgical changes from right breast reconstruction with the right axillary node dissection. No acute osseous abnormality. Degenerative changes of the thoracic spine. RADIOLOGY [facility] CHEST RADIO GRAPH, 09/15/2022 3:50 PM EST COMPARISON: Chest, 10/08/2021. CLINICAL HISTORY: S/P FALL & RT SIDE CHEST PAIN post right breast reconstruction on 07/09/22. right breast pain from a fall on 09/08/22. She denied pain at the time of the fall but is now experiencing pain when she coughs or sneezes 6/10 on pain scale. RADIOLOGY Silvestre Rivera MD - 09/15/2022 [facility] CHEST RADIOGRAPH, 09/15/2022 3:50 PM EST COMPARISON: Chest, 10/08/2021. CLINICAL HISTORY: S/P FALL & RT SIDE CHEST PAIN post right breast reconstruction on 07/09/22. right breast pain from a fall on 09/08/22. She denied pain at the time of the fall but is now experiencing pain when she coughs or sneezes 6/10 on pain scale. IMPRESSION Findings and impression: 1. No acute cardiopulmonary disease. 2. Normal heart size. 3. Postsurgical changes from right breast reconstruction with the right axillary node dissection. No acute osseous abnormality. Degenerative changes of the thoracic spine. [facility] Radiology Study observation (narrative) [facility] tem XR Chest PA and LateralOrder ed By: Silvestre Rivera on 09-15-2022 [facility] [email or web address] Work Phone: ECHOCARDIO M/2D COMPLETEon 1 ECHOCARDIO M/2D COMPLETE Patient: BERENICE NOLASCO Exam Date: 06/22/2022 : 1950 Gender:F Ordering : SHAIKH Quirino VILLAGRAN . Admission #: [id number] Family : APOLINAR HENRY Order #: [id number] CLICK HERE TO VIEW EXAM ECHOCARDIOGRAM REPORT PROCEDURE: CARDIO PULMONARY ECHOCARDIO M/2D COMP INDICATIONS: Pre-operative clearance COMPARISON: None. DESCRIPTION: COMPLETE ECHOCARDIOGRAM Real-time transthoracic echocardiography with 2D, M-mode, spectral and color flow Doppler performed. QUALITY: Technical quality was adequate. LEFT VENTRICLE: Normal chamber size. Normal left ventricular wall thickness. LV EF: Normal left ventricular ejection fraction, (>55%). No significant wall motion abnormalities. DIASTOLIC: Diastolic function is indeterminate. ATRIAL SEPTUM: Visually appears intact. LEFT ATRIUM: Mildly dilated. RIGHT ATRIUM: Normal in size visually. RIGHT VENTRICLE: Normal chamber size; normal systolic function. TRICUSPID VALVE: Normal mobility and thickness. No stenosis with trivial regurgitation. No evidence of pulmonary hypertension. RVSP 30 mmHg MITRAL VALVE: Normal mobility and thickness. No evidence of mitral valve stenosis. Moderate mitral annular calcification. No mitral regurgitation. AORTIC VALVE: Normal trileaflet appearance. No visible sclerosis. Normal leaflet mobility. No evidence of aortic valve stenosis. No aortic regurgitation. AORTIC ROOT: Normal diameter and appearance. PULMONIC VALVE: Normal thickness and mobility. No stenosis. No regurgitation. PERICARDIUM: Anterior free space; trivial effusion versus fat pad. IVC: Collapses with inspirations. IVC is normal in size. CONCLUSION: Global left ventricular systolic function is normal; visually estimated ejection fraction is 55 to 60%. No significant wall motion abnormalities. Diastolic function is indeterminate. Left atrium is mildly dilated. Right ventricle is normal in size and systolic function. No significant valvular abnormalities. Anterior free space; trivial effusion versus fat pad. Adult Echocardiography Procedure Report Left Ventricle LVEDD (3.7 - 5.6 cm): 3.62 cm LVESD (2.2 - 4.0 cm): 2.64 cm LVIVS thickness (0.6 - 1.2 cm): 1.01 cm LVPW thickness (0.5 - 1.0 cm): 1.07 cm e': 0.09 m/s E - e': 7.82 LVOT Max Gradient: 2.75 mm[Hg] Peak Velocity (LVOT): 0.83 m/s LVOT Diameter 2.57 cm Left Atrium LA Volume Index (2D A2C): 104.77 ml, 104.77 ml Left Atrium Systolic Dimension: 3.07 cm Mitral Valve MV E to A Ratio: 0.92 Mitral Valve A-Wave Peak Velocity: 0.75 m/s Mitral Valve E-Wave Peak Velocity: 0.69 m/s Right Ventricle Aorta AO Root Diam: 3.57 cm Aortic Valve AoV Area (Peak Mann): 4.24 cm2, 4.24 cm2 Peak Velocity(Antegrade Flow): 1.02 m/s Peak Gradient(Antegrade Flow): 4.13 mm[Hg] Tricuspid Valve Peak Velocity (Regurgitant Flow): 2.57 m/s Peak Velocity: 0.38 m/s Pulmonic Valve Peak Velocity: 0.95 m/s, 0.87 m/s Peak Gradient: 3.62 mm[Hg], 3.05 mm[Hg] Right Atrium Right Atrium Systolic Pressure: 95.25 ml, 95.25 ml Dictated by: Narcisa Mc M.D. on 06/23/2022 at 14:15 Approved by: Narcisa Mc M.D. on 06/23/2022 at 14:19 Normal [facility] FASTINGon 06-16-2022 A:G RATIO 1.6 RATIO Normal 1.3-2.2 [facility] Comment on above: Performed By: #### C MPF #### [place] [address] ALBUMIN 4.4 G/dl Normal 3.5-5.0 [facility] Comment on above: Performed By: #### C MPF #### Testing performed at [address] [address] ALP [Catalytic activity/Vol] 124 U/L Normal 38-126 [facility] Comment on above: Performed By: #### C MPF #### Testing performed at [address] [address] ALT [Catalytic activity/Vol] 35 U/L High <35 [facility] Comment on above: Performed By: #### C MPF #### Testing performed at [address] [address] AST [Catalytic activity/Vol] 31 U/L Normal 14-36 [facility] Comment on above: Performed By: #### C MPF #### Testing performed at [facility] [address] [place] [address] Bilirubin [Mass/Vol] 0.5 mg/dL Normal 0.2-1.3 [facility] Comment on above: Performed By: #### C MPF #### Testing performed at [address] [address] Calcium [Mass/Vol] 8.8 mg/dL Normal 8.4-10.2 [facility] Comment on above: Performed By: #### C MPF #### Testing performed at [address] [address] Chloride [Moles/Vol] 102 mmol/L Normal 98-107 [facility] Comment on above: Result Comment: Mendez caraballo note: Triglyceride levels of 600mg/dL or higher may positively bias chloride results by approximately 2.1 mmol Performed By: #### C MPF #### Testing performed at [address] [address] CO2 [Moles/Vol] 28 mmol/L Normal 22-30 [facility] Comment on above: Performed By: #### C MPF #### Testing performed at [address] [address] Creatinine [Mass/Vol] 0.60 mg/dL Low 0.7-1.2 [facility] Comment on above: Performed By: #### C MPF #### Testing performed at [address] [address] EST. GFR, 126 ml/min/1.73sq.m [facility] Comment on above: Performed By: #### C MPF #### Testing performed at [address] [address] EST. GFR,Non 104 ml/min/1.73sq.m [facility] Comment on above: Performed By: #### C MPF #### Testing performed at [address] [address] GFR Information Average GFR for 70+ years old = 75. Normal [facility] Comment on above: Result Comment: Cardiopulmonary Physical Therapist kurtis Kidney disease, GFR = <60. Kidney failure, GFR = <15. The GFR estimate is not adjusted for extreme body surface area or acute process, nor has it been validated for women or ethnic groups other than and . Testing performed at [place] [address] Performed By: #### C MPF #### Testing performed at [place] [id number] Glucose [Mass/Vol] 98 mg/dL Normal 70-100 [facility] Comment on above: Result Comment: NORMAL <100 mg/dL PREDIABETES 101-126 mg/dL DIABETES 126 mg/dL or higher Performed By: #### C MPF #### [place] [address] Potassium [Moles/Vol] 4.3 mmol/L Normal 3.5-5.1 [facility] Comment on above: Performed By: #### C MPF #### [place] [address] Protein [Mass/Vol] 7.2 g/dL Normal 6.3-8.2 [facility] Comment on above: Performed By: #### C MPF #### Testing performed at [place] [id number] Sodium [Moles/Vol] 139 mmol/L Normal 137-145 [facility] Comment on above: Performed By: #### C MPF #### Testing performed at [place] [id number] Urea nitrogen [Mass/Vol] 14 mg/dL Normal 7-20 [facility] Comment on above: Performed By: #### C MPF #### Testing performed at [place] [id number] FREE T3on 03-24-2022 FREE T3 2.69 pg/mlL Normal 2.18-3.98 [facility] Comment on above: Performed By: #### B MP, TSH #### [facility] [address] [place] [address] Dr. Danielle Penaloza TSHon 03-24-2022 TSH 2.001 uIU/mL Normal 0.358-3.740 [facility] Comment on above: Performed By: #### T SH, FT3 #### [facility] [address] [place] [address] [address] [address] Danielle Penaloza [facility]12 SARS-CoV-2 (COVID-19) RNA ADELAIDA+probe Ql (Unsp spec) Not detected Normal NOT DETECTED The [facility] Comment on above: Result Comment: This test is not yet approved or cleared by the [place] FDA. When there are no FDA-approved or cleared tests available, and other criteria are met, FDA can make tests available under an emergency access mechanism called an Emergency Use Authorization (EUA). The EUA for this test is supported by the Patient Services Assistant of Health and Human Service's (HHS's) declaration that circumstances exist to justify the emergency use of in vitro diagnostics for the detection and/or diagnosis of the virus that causes COVID-19. This EUA will remain in effect (meaning this test can be used) for the duration of the COVID-19 declaration justifying emergency of IVDs, unless it is terminated or revoked by FDA (after which the test may no longer be used). When diagnostic testing is negative, the possibility of a false negative should be considered in the context of a patient's recent exposures and the presence of clinical signs and symptoms consistent with SARS-CoV-2. Performed By: #### C VDTB #### [facility] [address] [place] [address] [address] [address] Danielle Penaloza Operative Reporton 0 Operative Report MR#: [id number] S [facility] Pt. Name: Berenice Nolasco Room #: 0C Discharge Date: Birthdate: 1950 OPERATIVE REPORT DATE OF SURGERY: 06/07/2020 SURGEON: Adam Skinner M.D. PREOPERATIVE DIAGNOSIS: Right knee medial and lateral meniscal tears. POSTOPERATIVE DIAGNOSES: 1. Right knee medial and lateral meniscal tears. 2. Right knee Hoffa's fat pad hypertrophy and inflammation. WIRE BENDER: Bindu Rick M.D. ANESTHESIA: General. PROCEDURES PERFORMED: 1. Right knee arthroscopy with partial medial and lateral meniscectomy. 2. Right knee fat pad debridement. INDICATIONS: The patient is a 70-year-old woman, who has been having significant mechanical symptoms and pain in the right knee. X-rays do not demonstrate any meaningful arthritis. An MRI however demonstrated medial and lateral meniscal tears. I offered her right knee arthroscopy with partial, medial and lateral meniscectomy for relief of her mechanical symptoms. She has tried physical therapy. She has tried anti-inflammatories. She continues to have pain with catching and popping. Risks and benefits were discussed in the clinic. Informed consent was obtained here as well. She was scheduled for the procedure on 06/07/2020. PROCEDURE IN DETAIL: After confirmation and marking of the correct surgical extremity in the preoperative holding area, the patient was brought back to the operating suite and placed in the supine position. All pressure points were adequately padded. General endotracheal anesthesia was smoothly induced. Preoperative antibiotics were administered. The right lower extremity was prepped and draped in a sterile fashion. After observation of a surgical time-out procedure using 2 separate patient identifiers, we began with the case. We first started the infiltration of the knee itself and the proposed incisions with 20 mL of 1% lidocaine with epinephrine. We then created standard arthroscopy portals and began with a diagnostic arthroscopy. We first started with inspecting the medial compartment. There was some synovitis here as well as a complex tear of the posterior horn of the medial meniscus. This had both horizontal and radial components to it. This was trimmed to stabilize back to the level of stable tissue using the arthroscopic shaver. We then turned our attention into the intercondylar notch. The ACL and PCL were intact. The lateral compartment demonstrated a large radial tear of the body of the lateral meniscus. It also extended in a complex pattern towards the posterior horn. The unstable elements were trimmed to stabilize back to the level of stable tissue using the arthroscopic shaver. No significant chondral injuries. We finally turned our attention to the patellofemoral compartment. Again, no significant chondral injuries, but there was synovitis and fat pad hypertrophy that was lodged between the patella and the trochlea. This was debrided back to the level of stable tissue using the arthroscopic shaver. At this point, all the instruments were removed and the knee was drained of fluid. The portal incisions were closed using simple Steri-Strips. A sterile compressive wrap was applied. The patient was then awakened and extubated, and brought back to the PACU in stable condition. I was present, scrubbed, and actively participating for all the cook portions of the surgery. ESTIMATED BLOOD LOSS: Minimal. COMPLICATIONS: None. DISPOSITION: To the PACU in a stable condition. POSTOPERATIVE PLAN: I will see the patient back in 10 to 14 days' time for suture removal and initiation of physical therapy. Electronically Signed by: Adam Skinner M.D. 06/07/2020 01:53 P Adam Skinner M.D. Date Dict: 06/07/2020/08:47 A/Adam Skinner M.D. Date Trans: 06/07/2020 09:06 A/irena [id number] cc: Trino Montiel M.D. [address] [facility] [address] Normal [facility] POC GLUCOSE LABon 06-07-2020 Glucose [Mass/Vol] 109 mg/dL High 70-100 [facility] Comment on above: Performed By: #### 8 5499 #### [facility] [address] *SARS-CoV-2 COVID-19on 06-04 [id number] Not Detected Normal Not Detected The [facility] Comment on above: Order Comment: The A ptima SARS-CoV-2 assay is a nucleic acid amplification test intended for the qualitative detection of RNA from SARS-CoV-2 isolated and purified from nasopharyngeal (LEATHER COLORER),oropharyngeal (OP), nasal swab, sputum, and bronchoalveolar lavage (BAL) specimens from patients with signs and symptoms of infection who are suspected of COVID-19. Results are for the identification of SARS-CoV-2 RNA. The SARS-CoV-2 RNA is generally detectable during the acute phase of infection. The Aptima SARS-CoV-2 Assay on the [employer] and FOLUP system is intended for use by laboratory personnel specifically instructed and trained in the operation of the Shorter and Shorter Fusion system. The Aptima SARS-CoV-2 assay is only for use under the Food and Drug Administration Emergency Use Authorization. Testing is limited to laboratories certified under the Clinical Laboratory Improvement Amendments of 1988 (CLIA), 42 U.S.C. ???263a, to perform high complexity tests. Not Detected: Not detected does not preclude SARS-CoV-2 infection and should not be used as the sole basis for patient management decisions. Not detected results must be combined with clinical observations, patient history, and epidemiological information. Performed By: #### 3 1792 #### [address] KNEE RIGHT 3 [facility] 0 KNEE RIGHT 3 S [facility] Department of Radiology [address] [place] [id number] Patient Name: BERENICE NOLASCO : 1950 Sex: F Age: Race: White Pt. Location: Patient Status: O Ordered Date: 01/22/2020 11:35:00 AM Completed Date: 01/22/2020 11:43 AM Requesting Provider: ADAM SKINNER Attending Provider: ADAM SKINNER Report Copy To: TRINO MONTIEL Signs & Symptoms: S83.281A Oth tear of lat mensc, current injury, right knee, init I10 History: Nina Comments: Exam: KNEE RIGHT 3 S KNEE RIGHT 3 VWS 01/22/2020 11:43 AM CLINICAL INDICATIONS: S83.281A Oth tear of lat mensc, current injury, right knee, init I10 TECHNOLOGIST COMMENTS: Patient complains of medial right knee pain and burning for months. No known injury. QUESTION FOR THE RADIOLOGIST: Right knee pain. PROTOCOL: AP,Lateral and Tangential views were obtained. COMPARISON: None FINDINGS: Medial narrowing of the right knee joint along with mild medial translation of the femur on the tibia. There is also mild lateral knee joint effusion seen on AP view. Moderate suprapatellar joint effusion. Mild spurring of the superior patella. No evidence of acute fractures or aggressive osseous lesions. IMPRESSION: * Arthritis medial compartment and patellofemoral compartment and effusion. Consider MRI if you suspect occult process. Approved by:Yony Farmer01/22/2020 2:15 PM. I, DELANO BLANCO,have reviewed the images and reports Electronically signed: DELANO BLANCO. Transcribed by: [id number], User Resident: YONY PAN Electronically Signed by: DELANO BLANCO @ 01/22/2020 02:18 PM I personally read this/these film(s) with this resident Normal The [facility] ED PROV NOTEon 08-06-2018 Protein mass conc HNO ID: [id number]: Cas Nunn: (none)Author Type: PhysicianType: ED Provider NotesFiled: 08/13/2018 10:43 AMNote Text:[place], [place] [address]EDANBF INFORMATION MANAGEMENTEMERGENCY DEPARTMENT REPORTPatient: BERENICE NOLASCO JOEL A M.D. as dictated by GRUPO BROUSSARD, MELINA-[id number] FStatus: DEP ER EDDate of Service: 08/05/18CHIEF COMPLAINTThis is a 68-year-old female who presents with a headache and nausea for 2days.HISTORY OF PRESENT ILLNESSThe patient is visiting family from out of town. She has not had anappetite, has been nauseous, and had a headache for the last few days, sobecame concerned and presented to the emergency room.PAST MEDICAL HISTORYPast medical history of acid reflux, depression.PAST SURGICAL HISTORYShe has had a hysterectomy.SOCIAL HISTORYNo alcohol, drug, or tobacco use. .ALLERGIESAllergic to sulfa and penicillin.MEDICATIONSHer medications include Ditropan, Nexium, Zocor.REVIEW OF SYSTEMSThe patient has felt feverish. She has had a generalized headache allover and including both the ears. She has nasal discharge and sinuspressure. She denies sore throat. No difficulty breathing. She has hada dry cough. No chest pain or palpitations. No neck pain or stiffness.She states she does not normally get headaches which concerned her. Shedenies abdominal pain. No diarrhea, but she has been nauseous and didvomit once. No blood in the stool. No black, tarry stools. She doesfeel generally weak. No syncope, lightheadedness, or dizziness. Nonumbness or paresthesia. No weakness of extremities. She ambulates wellshe states.PHYSICAL EXAMINATIONHer blood pressure is 122/77, temperature 99.1, pulse 86, respirations 18,94% on room air. Pain 10/10. This is a well-nourished, well-hydratedpatient who is alert and oriented in the room. She is in no distress.Her head is atraumatic, normocephalic. Neck is supple. There is nocervical lymphadenopathy. Posterior oropharynx shows no redness orexudate. Bilateral tympanic membranes are pearly haro in appearance witha good cone of light. Nasal mucosa is pink and moist. She does have mildpain with palpation over the maxillary sinuses. No neck pain, drooling,or meningismus. Her lungs are clear throughout all lung torres with goodair exchange. Her heart has a regular rate and rhythm without murmur,rub, or gallop. Her abdomen is soft, round, nontender to palpation.Normoactive bowel sounds. No masses, guarding, rigidity, or reboundtenderness. Pedal pulses 2+. No edema. No calf tenderness. Cranialnerves II through XII are grossly intact. Extremities have good strengthand sensation, are symmetrical. Pupils are equal at 2 mm. No nystagmusor extraocular eye movements.EMERGENCY DEPARTMENT COURSEHer lab work showed a white blood cell count of 6.6, hemoglobin 13.8,hematocrit 39.4, platelets 115. Lactic acid is 0.8. Her blood sugar is122, BUN 14, creatinine 0.53, potassium 3.5. Troponin is 0.010. Flu Aand B are negative. CT of the brain shows no hemorrhagic or mass effect. 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 Chestx-ray showed an elevated left diaphragm, no focal consolidation. Urinewas negative for blood, nitrites, and leukocytes. The patient was given aliter of fluid, nausea medicine, and some Tylenol for her elevatedtemperature. She then was given morphine for her headache. She will bedischarged on antibiotics for what looks to be sinusitis. She willreceive nausea medicine and antibiotics. She is to return here if worsein any way, increase her fluids, rest. Follow up with her family doctorif no better and return if worse. She verbalized understanding of theplan of care will be discharged home.IMPRESSIONAcute sinusitis. 08/13/18 1027 CAS CANTU M.D.cc: CAS CANTU M.D. << Signature on File>> Reported By: CAS CANTU M.D. Signed By: CAS CANTU M.D.Tests performed at:[address] [phone] Normal [facility] ED REPORTon 08-06-2018 ED REPORT [place], [place] [id number] INFORMATION MANAGEMENTEMERGENCY DEPARTMENT REPORTPatient: BERENICE NOLASCO JOEL A M.D. as dictated by GRUPO BROUSSARD, MELINA-[id number] FStatus: DEP ER EDDate of Service: 08/05/18CHIEF COMPLAINTThis is a 68-year-old female who presents with a headache and nausea for 2 days.HISTORY OF PRESENT ILLNESSThe patient is visiting family from out of town. She has not had an appetite, has beennauseous, and had a headache for the last few days, so became concerned and presented tothe emergency room.PAST MEDICAL HISTORYPast medical history of acid reflux, depression.PAST SURGICAL HISTORYShe has had a hysterectomy.SOCIAL HISTORYNo alcohol, drug, or tobacco use. .ALLERGIESAllergic to sulfa and penicillin.MEDICATIONSHer medications include Ditropan, Nexium, Zocor.REVIEW OF SYSTEMSThe patient has felt feverish. She has had a generalized headache all over and includingboth the ears. She has nasal discharge and sinus pressure. She denies sore throat. Nodifficulty breathing. She has had a dry cough. No chest pain or palpitations. No neckpain or stiffness. She states she does not normally get headaches which concerned her.She denies abdominal pain. No diarrhea, but she has been nauseous and did vomit once. Noblood in the stool. No black, tarry stools. She does feel generally weak. No syncope,lightheadedness, or dizziness. No numbness or paresthesia. No weakness of extremities.She ambulates well she states.PHYSICAL EXAMINATIONHer blood pressure is 122/77, temperature 99.1, pulse 86, respirations 18, 94% on room air.Pain 10/10. This is a well-nourished, well-hydrated patient who is alert and oriented inthe room. She is in no distress. Her head is atraumatic, normocephalic. Neck is supple.There is no cervical lymphadenopathy. Posterior oropharynx shows no redness or exudate.Bilateral tympanic membranes are pearly haro in appearance with a good cone of light.Nasal mucosa is pink and moist. She does have mild pain with palpation over the maxillarysinuses. No neck pain, drooling, or meningismus. Her lungs are clear throughout all lungfields with good air exchange. Her heart has a regular rate and rhythm without murmur,rub, or gallop. Her abdomen is soft, round, nontender to palpation. Normoactive bowelsounds. No masses, guarding, rigidity, or rebound tenderness. Pedal pulses 2+. No edema.No calf tenderness. Cranial nerves II through XII are grossly intact. Extremities havegood strength and sensation, are symmetrical. Pupils are equal at 2 mm. No nystagmus orextraocular eye movements.EMERGENCY DEPARTMENT COURSEHer lab work showed a white blood cell count of 6.6, hemoglobin 13.8, hematocrit 39.4,platelets 115. Lactic acid is 0.8. Her blood sugar is 122, BUN 14, creatinine 0.53,potassium 3.5. Troponin is 0.010. Flu A and B are negative. CT of the brain shows nohemorrhagic or mass effect. White matter disease is likely due to microvascularangiopathy. Chest x-ray showed an elevated left diaphragm, no focal consolidation. Urinewas negative for blood, nitrites, and leukocytes. The patient was given a liter of fluid,nausea medicine, and some Tylenol for her elevated temperature. She then was givenmorphine for her headache. She will be discharged on antibiotics for what looks to besinusitis. She will receive nausea medicine and antibiotics. She is to return here ifworse in any way, increase her fluids, rest. Follow up with her family doctor if no betterand return if worse. She verbalized understanding of the plan of care will be dischargedhome.IMPRESSIONAcute sinusitis. 08/13/18 1027 CAS CANTU M.D.cc: CAS CANTU M.D. << Signature on File>> Reported By: CAS CANTU M.D. Signed By: CAS CANTU M.D.Tests performed at:[address] [id number] [facility] 08-05-2018 No Growth Normal [facility] Comment on above: Performed By: #### L 100.0440 ####ML - [id number] [place] [address] BC No Growth Normal [facility] Comment on above: Performed By: #### M 105.0000 ####ML [facility] [id number] [place] [address] [facility] 08-05-2018 Anion gap 3 molar conc 17.5 mmol/L Normal 15-22 U [facility] Comment on above: Performed By: #### L 100.0010, L301.0120 ####ML - [id number] [place] [address] Calcium mass conc 8.7 mg/dL Low 8.8-10.2 [facility] Comment on above: Performed By: #### L 100.0010, L301.0120 #### - [id number] [place] [address] Chloride molar conc 101 mmol/L Normal 98-107 [facility] Comment on above: Performed By: #### L 100.0010, L301.0120 #### - [id number] [place] [address] Creatinine mass conc 0.53 mg/dL Normal 0.50-0.90 [facility] Comment on above: Performed By: #### L 100.0010, L301.0120 #### - [id number] [place] [address] eGFR if AFR MELISSA > 60 ml/min/1.73m2 Normal [facility] Comment on above: Result Comment: eGFR >= 60 Indicates normal kidney function. * eGFR IS AN ESTIMATE * (AFR MELISSA = ) (non-AFR AM = NON-) MDRD calculation used in the eGFR should not be used to dose medications. For further limitations of the eGFR please refer to the Physician Website or the National Kidney Disease Education Program website (www.nkdep.nih.gov). Performed By: #### L 100.0010, L301.0120 ####ML - [id number] [place] [address] eGFR nonAFR Melissa > 60 ml/Min/1.73m2 Normal [facility] Comment on above: Performed By: #### L 100.0010, L301.0120 ####ML - VBULYROTNO090 [place] [address] Glucose mass conc 122 mg/dL High 82-115 [facility] Comment on above: Performed By: #### L 100.0010, L301.0120 ####[facility] T[address]ELNSAQ[address] [place] [address] Potassium molar conc 3.5 mmol/L Normal 3.5-5.0 [facility] Comment on above: Performed By: #### L 100.0010, L301.0120 ####ML - DKXGRSXVTI859 [place] [address] Sodium molar conc 138 mmol/L Normal 135-145 [facility] Comment on above: Performed By: #### L 100.0010, L301.0120 ####ML - YZQVNQHHUA[address] [place] [address] 51739 TCO2 23 mmol/L Normal 22-29 [facility] Comment on above: Performed By: #### L 100.0010, L301.0120 ####ML - TZPTQWHBJV[address] [place] [address] 74969 Urea nitrogen mass conc 14 mg/dL Normal 8-23 [facility] Comment on above: Performed By: #### L 100.0010, L301.0120 ####ML - YHWPEOREKQ[address] [place] [address] 16788 CBCon 08-05-2018 Basophils Auto #/vol (Bld) 0.00 x10(3) Normal 0.00-0.1 0 [facility] Comment on above: Performed By: #### L 200.0010 ####ML [facility] [address] [place] [address] 46645 Basophils/100 WBC Auto (Bld) 0.2 % Normal 0.0-1.0 [facility] Comment on above: Performed By: #### L 200.0010 ####ML - PTAKOEUILS[address] [place] [address] 28645 Eosinophils Auto #/vol (Bld) 0.00 x10(3) Normal 0.00-0 .54 [facility] Comment on above: Performed By: #### L 200.0010 ####ML [facility] ORAKSAAVR[address] [place] [address] 06903 Eosinophils/100 WBC Auto (Bld) 0.1 % Low 0.5-4 .9 [facility] Comment on above: Performed By: #### L 200.0010 ####ML [facility] KPPN[address] [place] [address] 15341 Erythrocyte distribution wid th Auto Ratio (RBC) 15.7 % Normal 12.5-15.7 [facility] Comment on above: Performed By: #### L 200.0010 ####ML [facility] IVQXMSWEKY[address] [place] [address] 87843 Hematocrit Auto Volume Fract ion (Bld) 39.4 % Normal 36.0-48.0 [facility] Comment on above: Performed By: #### L 200.0010 ####ML [facility] MQJVSLYZ[address] [place] [address] 86534 Hemoglobin mass conc (Bld) 13.8 g/dL Normal 12.0-16.0 [facility] Comment on above: Performed By: #### L 200.0010 ####ML [facility] Z[address]ZFTLQ[address] [place] [address] 86420 Lymphocytes Auto #/vol (Bld) 0.50 x10(3) Low 1.00-3 .50 [facility] Comment on above: Performed By: #### L 200.0010 ####ML [facility] MDPIDXXEDA[address] [place] [address] 27630 Lymphocytes/100 WBC Auto (Bld) 7.8 % Low 16.0- 48.0 [facility] Comment on above: Performed By: #### L 200.0010 ####ML [facility] VOBMFAAQOT[address] [place] [address] 67017 MCH Auto Entitic mass (RBC) 27.6 pg Low 28.5-32. 9 [facility] Comment on above: Performed By: #### L 200.0010 ####ML [facility] ESBNQVHFDY[address] [place] [address] 41097 MCHC Auto mass conc (RBC) 35.1 g/dL Normal 33.0-36.0 [facility] Comment on above: Performed By: #### L 200.0010 ####ML [facility] XRSTYNDDWM[address] [place] [address] 19671 MCV Auto Entitic volume (RBC) 78.7 fL Low 80.0-9 9.0 [facility] Comment on above: Performed By: #### L 200.0010 ####ML - OJBOKBJOAW[address] [place] [address] 30693 Monocytes Auto #/vol (Bld) 0.40 x10(3) Normal 0.30-0.8 0 [facility] Comment on above: Performed By: #### L 200.0010 ####ML - AJBJSNVFIT[address] [place] [address] 22122 Monocytes/100 WBC Auto (Bld) 5.4 % Normal 4.3-11. 2 [facility] Comment on above: Performed By: #### L 200.0010 ####ML - BFJRYNNJWG[address] [place] [address] 82732 Neutrophils Auto #/vol (Bld) 5.70 x10(3) Normal 1.40-6 .50 [facility] Comment on above: Performed By: #### L 200.0010 ####ML [facility] NVOLCNTBUU[address] [place] [address] 70671 Neutrophils/100 WBC Auto (Bld) 86.5 % High 45.0- 73.0 [facility] Comment on above: Performed By: #### L 200.0010 ####ML [address] [address] Platelet mean volume Auto En titic volume (Bld) 8.1 fL Normal 7.5-9.5 [facility] Comment on above: Performed By: #### L 200.0010 ####ML [facility] MXPIXANCZL[address] [place] [address] 94293 Platelets Auto #/vol (Bld) 115 X10(3) Low 150-450 [facility] Comment on above: Performed By: #### L 200.0010 ####ML [facility] WZWEUSZZSX[address] [place] [address] 15445 RBC Auto #/vol (Bld) 5.00 x10(6) Normal 3.30-5.00 [facility] Comment on above: Performed By: #### L 200.0010 ####ML [facility] RJINAKYX[address] [place] [address] 10997 WBC Auto #/vol (Bld) 6.6 x10(3) Normal 4.5-10.0 [facility] Comment on above: Performed By: #### L 200.0010 ####ML - [facility] [address] [address] CHEST (TWO VIEWS) - CXRon CHEST (TWO VIEWS) - CXR [place] [id number]: BERENICE NOLASCO: GRUPO BROUSSARD LEATHER COLORER-C (ED): [birth year] Age: 68 Sex: FAcct: [id number] Loc: EDExam Date: 08/05/18 Status: REG ERRadiology No.: [id number] Number: [id number] # Type/[id number] RAD / CHEST (TWO VIEWS) - CXRTwo-view chestClinical statement: Weakness. History of right mastectomyComparison study: NoneFindings:The heart size is normal. The left diaphragm is elevated. There is nopulmonary consolidation. No pneumothorax. Multilevel degenerative changes seenin the spine. Surgical clips identified in the right axilla.Impression:Elevated left diaphragm. No focal consolidationProfessional interpretation provided by [facility]60.Thank you for this referral.< >Reported By: XANDER MARTINEZ M.D.Signed In NovaPro By: XANDER MARTINEZ M.D. << Signature on File>> Reported By: XANDER MARTINEZ M.D. Signed By: XANDER MARTINEZ M.D.Tests performed at:[address] [phone] Normal [facility] CT BRAIN WITHOUT CONTRAST- C TBon 08-05-2018 CT BRAIN WITHOUT CONTRAST- CTB [place] [id number]: BERENICE NOLASCO: GRUPO BROUSSARD LEATHER COLORER-C (ED): [birth year] Age: 68 Sex: FAcct: [id number] Loc: EDExam Date: 08/05/18 Status: REG ERRadiology No.: [id number] Number: [id number] # [id number] CT / CT BRAIN WITHOUT CONTRAST- CTBCT brain without contrastClinical statement: HeadacheComparison study: NoneFindings:The ventricles appear normal. Patchy white matter disease is likely related tomicrovascular angiopathy. No hemorrhage or mass effect visible. No extra-axialfluid collection seen.The mastoids appear aerated. No destructive osseous lesion identified. Orbitsappear grossly normal.Impression:1. No hemorrhage or mass effect2. White matter disease is likely due to microvascular angiopathyThis exam was performed according to our departmental dose optimizationprogram, and includes the following measures where applicable: automatedexposure control, adjustment of the mAs and/or kVp according to patient sizeand/or exam, and an iterative reconstruction algorithm.Professional interpretation provided by [facility] [place] [address].Thank you for this referral.< >Reported By: XANDER MARTINEZ M.D.Signed In NovaPro By: XANDER MARTINEZ M.D. << Signature on File>> Reported By: XANDER MARTINEZ M.D. Signed By: XANDER MARTINEZ M.D.Tests performed at:[address] [phone] Normal [facility] ED PROV NOTEon 08-05-2018 Protein mass conc HNO ID: [id number]: Cas Nunn: (none)Author Type: PhysicianType: ED Provider NotesFiled: 08/13/2018 10:42 AMNote Text:[place], [place] [address]HWUYTB INFORMATION MANAGEMENTEMERGENCY DEPARTMENT REPORTPatient: BERENICE NOLASCO JOEL A M.D.[id number][birth year] 68 FStatus: DEP ER EDDate of Service: 08/05/18CHIEF COMPLAINTHeadache.HISTORY OF PRESENT ILLNESSA 68-year-old female brought in with the above complaint. She iscomplaining of a headache which has been going on for the last 24 hours.She says it is unlike headaches she has had in the past. She has hadsome upper respiratory symptoms and sinus drainage but really no othersymptoms. Denies any neck stiffness or high fevers. No focal numbness,weakness, or visual changes.REVIEW OF SYSTEMSOtherwise negative.PHYSICAL EXAMINATIONOn my physical examination, she is awake, alert, not in any acutedistress. VITALS: As charted. HEENT: Atraumatic, normocephalic. Someclear posterior nasal drainage and some tenderness over the maxillarysinuses. Neck is supple. There is negative Kernig's. Cardiovascular:Regular rate and rhythm. No murmur, rub, or gallop. The lungs are clear. Abdomen: Soft, nontender, bowel sounds positive. Extremities: Noclubbing, cyanosis, or edema. She is neurologically awake, alert toperson, place, date, moving all 4 extremities. Reflexes are 2+ andsymmetric. Toes are downgoing. There is no pronator drift. Xwnlwlvfhzbt-zp-xjcx, uwrx-cs-jpxa.EMERGENCY DEPARTMENT COURSESent for CT which was negative. Labs were all pretty much negative and noUTI.CLINICAL DIAGNOSISCephalgia.PLANDischarged to home to follow up with the family doctor and return ifproblems of any kind. She is treated for what is presumed to be a sinusinfection as well with antibiotics. She can return if worse or problemsof any kind. 08/13/18 1027 CAS CANTU M.D.cc: CAS CANTU M.D. << Signature on File>> Reported By: CAS CANTU M.D. Signed By: CAS CANTU M.D.Tests performed at:[address] [phone] Normal [facility] EMERGENCY DEPARTMENT REPORTo n 08-05-2018 EMERGENCY DEPARTMENT REPORT [place], [place] [address]NSCQKF INFORMATION MANAGEMENTEMERWEST CAMP[facility] OF [facility]ENTERCY DEPARTMENT REPORTPatient: BERENICE NOLASCO JOEL A M.D.[id number]/[birth year] FStatus: [facility] EDDate of Service: 08/05/18CHIEF COMPLAINTHeadache.HISTORY OF PRESENT ILLNESSA 68-year-old female brought in with the above complaint. She is complaining of a headachewhich has been going on for the last 24 hours. She says it is unlike headaches she has hadin the past. She has had some upper respiratory symptoms and sinus drainage but really noother symptoms. Denies any neck stiffness or high fevers. No focal numbness, weakness, orvisual changes.REVIEW OF SYSTEMSOtherwise negative.PHYSICAL EXAMINATIONOn my physical examination, she is awake, alert, not in any acute distress. VITALS: Ascharted. HEENT: Atraumatic, normocephalic. Some clear posterior nasal drainage and sometenderness over the maxillary sinuses. Neck is supple. There is negative Kernig's.Cardiovascular: Regular rate and rhythm. No murmur, rub, or gallop. The lungs are clear.Abdomen: Soft, nontender, bowel sounds positive. Extremities: No clubbing, cyanosis, oredema. She is neurologically awake, alert to person, place, date, moving all 4extremities. Reflexes are 2+ and symmetric. Toes are downgoing. There is no pronatordrift. Normal twaudk-jx-nvui, xoek-fr-uowh.EMERGENCY DEPARTMENT COURSESent for CT which was negative. Labs were all pretty much negative and no UTI.CLINICAL DIAGNOSISCephalgia.PLANDischarged to home to follow up with the family doctor and return if problems of any kind.She is treated for what is presumed to be a sinus infection as well with antibiotics. Shecan return if worse or problems of any kind. 08/13/18 1027 CAS CANTU M.D.cc: CAS CANTU M.D. << Signature on File>> Reported By: CAS CANTU M.D. Signed By: CAS CANTU M.D.Tests performed at:[address] [phone] [facility] FLU A & Bon 08-05-2018 FLU A Negative Normal NEGATIVE [facility] Comment on above: Order Comment: What is the source+ SWAB Performed By: #### L 400.0006 ####[facility] VHFBDYUOFT[address] [place] [address] 38764 FLU B Negative Normal NEGATIVE [facility] Comment on above: Order Comment: What is the source+ SWAB Result Comment: Infe ction due to Flu A and Flu B can not be ruled out. Flu Aand/or Flu B antigen in the sample may be below detectionlimit of the test. The gold standard for Flu A and Flu B vicente viral culture. Performed By: #### L 400.0006 ####ML [facility] QBWYBNZUVO[address] [place] [address] 83673 LACTIC ACIDon 08-05-2018 Lactate molar conc 0.8 mmol/L Normal 0.5-2.0 [facility] Comment on above: Performed By: #### L 100.0440 ####[facility] FZDVKHJUC[address] [place] [address] 47366 TROPONIN Ton 08-05-2018 Troponin T.cardiac mass conc ug/L Normal 0-0.010 [facility] Comment on above: Performed By: #### L 100.0010, L301.0120 #### - JGNQKQWQFK[address] [place] [address] UA W/C&Son 08-05-2018 Bilirubin Ql (U) Negative Normal NEGATIVE [facility] Comment on above: Order Comment: Urine Specimen Source+ CLEAN CATCH Performed By: #### L 200.3001 ####ML [facility] ILPJGLZNYS328 [place] [address] Color Nom (U) YELLOW Normal YELLOW Counts include 234 beds at the [facility] Comment on above: Order Comment: Urine Specimen Source+ CLEAN CATCH Performed By: #### L 200.3001 ####[facility] GKEKDIYFJM[address] [place] [address] 17725 Glucose Ql (U) Negative Normal NEGATIVE [facility] Comment on above: Order Comment: Urine Specimen Source+ CLEAN CATCH Performed By: #### L 200.3001 ####ML [facility] HVIIAOCLMP[address] [place] [address] Hemoglobin Test strip Ql (U) Negative Normal NEGATIV E [facility] Comment on above: Order Comment: Urine Specimen Source+ CLEAN CATCH Performed By: #### L 200.3001 ####ML - [facility] JGSWFLSZFR[address] [place] [address] Leukocyte esterase Test stri p Ql (U) Negative Normal NEGATIVE [facility] Comment on above: Order Comment: Urine Specimen Source+ CLEAN CATCH Performed By: #### L 200.3001 ####ML - [facility] AYNQQSQLOL[address] [place] [address] Nitrite Test strip Ql (U) Negative Normal NEGATIVE [facility] Comment on above: Order Comment: Urine Specimen Source+ CLEAN CATCH Performed By: #### L 200.3001 ####ML - RGOKCJETRO[address] [place] [address] pH Test strip (U) 6.0 [pH] Normal 5.0-8.0 [facility] Comment on above: Order Comment: Urine Specimen Source+ CLEAN CATCH Performed By: #### L 200.3001 ####ML - [facility] [address]AVSIUZ[address] [place] [address] Protein Test strip Ql (U) Negative Normal NEGATIVE [facility] Comment on above: Order Comment: Urine Specimen Source+ CLEAN CATCH Performed By: #### L 200.3001 ####ML - [facility] [address]HVOYBJI[address] [place] [address] URINE APPEARANC CLEAR Normal CLEAR [facility] Comment on above: Order Comment: Urine Specimen Source+ CLEAN CATCH Performed By: #### L 200.3001 ####ML - [facility] [address]YODKZKIH[address] [place] [address] URINE KETONE Negative Normal NEGATIVE [facility] Comment on above: Order Comment: Urine Specimen Source+ CLEAN CATCH Performed By: #### L 200.3001 ####ML - [facility] [address]KCLCKT[address] [place] [address] URINE SPECIFIC <=1.005 Normal 1.001-1.035 [facility] Comment on above: Order Comment: Urine Specimen Source+ CLEAN CATCH Performed By: #### L 200.3001 ####ML - [facility] [address]UUQMMUL[address] [place] [address] URINE UROBILINO 0.2 EU/DL Normal 0.2-1.0 [facility] Comment on above: Order Comment: Urine Specimen Source+ CLEAN CATCH Performed By: #### L 200.3001 ####ML - [facility] MRGDCATCMZ[address] [place] [address] Coding Summary.on 07-28-2017 Coding Summary. CODING DATE: 017 [facility] STATUS: PAYOR: Medicare ADMIT DX: REASON FOR VISIT DX: R27.9 Unspecified lack of coordination FINAL DX: PRINCIPAL: R27.9 Unspecified lack of coordination SECONDARY: N81.89 Other female genital prolapse PROCEDURES DOCTOR NAME DATE NOTE: The code number assigned matches the documented diagnosis and / or procedure in the patient's chart. However, the narrative phrase printed from the coding software may appear abbreviated, or result in slightly different terminology. Coded By: Viv Good Date Saved: 07/28/2017 10:55 am [facility] Vital Signs Date Time Vital Sign Value Performing Clinician Facility 07-21-2023 13:00-0500 Body height 167.64 cm Adriana Fitt Other [employer] Other 07-21-2023 13:00-0500 Body mass index (BMI) [Ratio] 33.52 kg/m2 Adriana Fitt Other [employer] Other 07-21-2023 13:00-0500 Body weight 94.21 kg Adriana Fitt Other [employer] Other 07-05-2023 14:15-0400 Body height 167.64 cm Susanne Jordan Other [employer] Other 07-05-2023 14:15-0400 Body mass index (BMI) [Ratio] 33.62 kg/m2 Susanne Jordan Other [employer] Other 07-05-2023 14:15-0400 Body weight 94.48 kg Susanne Missler Other [employer] Other 07-05-2023 14:15-0400 Diastolic blood pressure 87 mm[Hg] Susanne Missler Other [employer] Other 07-05-2023 14:15-0400 Respiratory rate 18 /min Susanne Missler Other [employer] Other 07-05-2023 14:15-0400 SaO2% (BldA) [Mass fraction] 93 % Susanne Missler Other [employer] Other 07-05-2023 14:15-0400 Systolic blood pressure 133 mm[Hg] Susanne Missler Other [employer] Other 06-30-2023 15:08-0400 Body height 167.[address] Apolinar Henry Work Phone: [facility] 06-30-2023 15:08-0400 Body mass index (BMI) [Ratio] 33.5 kg/m2 Dr. Apolinar Henry Work Phone: [facility] 06-30-2023 15:08-0400 Body temperature 97.3 [degF] Dr. Apolinar Henry Work Phone: [facility] 06-30-2023 15:08-0400 Body weight 94.[address] Apolinar Henry Work Phone: [facility] 06-30-2023 15:08-0400 Diastolic blood pressure 81 mm[Hg] Dr. Apolinar Henry Work Phone: [facility] 06-30-2023 15:08-0400 Heart rate 65 /min Dr. Apolinar Henry Work Phone: [facility] 06-30-2023 15:08-0400 Respiratory rate 16 /min Dr. Apolinar Henry Work Phone: [facility] 06-30-2023 15:08-0400 SaO2% (BldA) [Mass fraction] 94 % Dr. Apolinar Henry Work Phone: [facility] 06-30-2023 15:08-0400 Systolic blood pressure 135 mm[Hg] Dr. Apolinar Henry Work Phone: [facility] 05-27-2023 10:00-0400 Body height 167.64 cm [employer] Other [employer] Other 05-27-2023 10:00-0400 Body mass index (BMI) [Ratio] 34.65 kg/m2 [employer] Other [employer] Other 05-27-2023 10:00-0400 Body weight 97.39 kg [employer] Other [employer] Other 05-05-2023 14:25-0400 Body height 167.[address] Apolinar Henry Work Phone: [facility] 05-05-2023 14:25-0400 Body mass index (BMI) [Ratio] 35 kg/m2 Dr. Apolinar Henry Work Phone: [facility] 05-05-2023 14:25-0400 Body temperature 97.7 [degF] Dr. Apolinar Henry Work Phone: [facility] 05-05-2023 14:25-0400 Body weight 98.[address] Apolinar Henry Work Phone: [facility] 05-05-2023 14:25-0400 Diastolic blood pressure 78 mm[Hg] Dr. Apolinar Henry Work Phone: [facility] 05-05-2023 14:25-0400 Heart rate 70 /min Dr. Apolinar Henry Work Phone: [facility] 05-05-2023 14:25-0400 Respiratory rate 16 /min Dr. Apolinar Henry Work Phone: [facility] 05-05-2023 14:25-0400 SaO2% (BldA) [Mass fraction] 96 % Dr. Apolinar Henry Work Phone: [facility] 05-05-2023 14:25-0400 Systolic blood pressure 120 mm[Hg] Dr. Apolinar Henry Work Phone: [facility] 03-15-2023 12:45-0400 Body height 167.64 cm Susanneher [employer] Other [employer] Other 03-15-2023 12:45-0400 Body mass index (BMI) [Ratio] 36.42 kg/m2 Susanne Missler Other [employer] Other 03-15-2023 12:45-0400 Body weight 102.38 kg Susanne Missler Other [employer] Other 03-15-2023 12:45-0400 Diastolic blood pressure 84 mm[Hg] Susanne Missler Other [employer] Other 03-15-2023 12:45-0400 Respiratory rate 18 /min Susanne Missler Other [employer] Other 03-15-2023 12:45-0400 SaO2% (BldA) [Mass fraction] 96 % Susanne Missler Other [employer] Other 03-15-2023 12:45-0400 Systolic blood pressure 131 mm[Hg] Susanne Jordan Other [facility] [email or web address] Other 11-18-2022 14:58-0500 Body height 167.6 cm Apolinar Henry MD Work Phone: [facility] 11-18-2022 14:58-0500 Body temperature 97 [degF] Apolinar Henry MD Work Phone: 3(085)277-[address] [place] [address] 11-18-2022 14:58-0500 Diastolic blood pressure 83 mm[Hg] Apolinar Henry MD Work Phone: 0(135)978-07[address] [place] [address] 11-18-2022 14:58-0500 Heart rate 78 /min Apolinar Henry MD Work Phone: 4(796)245-297415 [place] [address] 11-18-2022 14:58-0500 Systolic blood pressure 143 mm[Hg] Apolinar Henry MD Work Phone: 9(731)954-345615 [place] [address] 10-21-2022 13:46-0500 Body height 167.6 cm Apolinar Henry MD Work Phone: 4(321)307-245615 [place] [address] 10-21-2022 13:46-0500 Body temperature 97.3 [degF] Apolinar Henry MD Work Phone: 1(366)999-696815 [place] [address] 10-21-2022 13:46-0500 Diastolic blood pressure 86 mm[Hg] Apolinar Henry MD Work Phone: 4(546)756-883400 [place] [address] 10-21-2022 13:46-0500 Heart rate 76 /min Apolinar Hnery MD Work Phone: [facility] 10-21-2022 13:46-0500 Systolic blood pressure 142 mm[Hg] Apolinar Henry MD Work Phone: [facility] 10-07-2022 14:27-0500 Body height 167.6 cm Apolinar Henry MD Work Phone: 5(052)577-756015 [place] [address] 10-07-2022 14:27-0500 Body temperature 97.9 [degF] Apolinar Henry MD Work Phone: 5(969)615-122615 [place] [address] 10-07-2022 14:27-0500 Diastolic blood pressure 81 mm[Hg] Apolinar Henry MD Work Phone: 7(406)687-584415 [place] [address] 10-07-2022 14:27-0500 Heart rate 74 /min Apolinar Henry MD Work Phone: 4(256)326-633415 [place] [address] 10-07-2022 14:27-0500 Systolic blood pressure 140 mm[Hg] Apolinar Henry MD Work Phone: 5(969)776-655615 [place] [address] 09-23-2022 14:36-0500 Body height 167.6 cm Apolinar Henry MD Work Phone: 3(848)483-017315 [place] [address] 09-23-2022 14:36-0500 Body mass index (BMI) [Ratio] 35.83 kg/m2 Apolinar Henry MD Work Phone: 5(022)554-526715 [place] [address] 09-23-2022 14:36-0500 Body temperature 97.3 [degF] Apolinar Henry MD Work Phone: 1(446)941-108315 [place] [address] 09-23-2022 14:36-0500 Body weight 100.7 kg Apolinar Henry MD Work Phone: 9(933)343-759815 [place] [address] 09-23-2022 14:36-0500 Diastolic blood pressure 97 mm[Hg] Apolinar Henry MD Work Phone: 4(865)277-356315 [place] [address] 09-23-2022 14:36-0500 Heart rate 82 /min Apolinar Henry MD Work Phone: 6(878)318-414515 [place] [address] 09-23-2022 14:36-0500 Systolic blood pressure 152 mm[Hg] Apolinar Henry MD Work Phone: 1(287)104-879315 [place] [address] 08-12-2022 15:03-0500 Body height 167.6 cm Apolinar Henry MD Work Phone: [phone])[phone] [place] [address] 08-12-2022 15:03-0500 Body mass index (BMI) [Ratio] 35.83 kg/m2 Apolinar Henry MD Work Phone: 1(165)584-207415 [place] [id number] 08-12-2022 15:03-0500 Body temperature 96.69 [degF] Apolinar Henry MD Work Phone: 9(570)070-093815 [place] [id number] 08-12-2022 15:03-0500 Body weight 100.7 kg Apolinar Henry MD Work Phone: 7(620)124-904515 [place] [id number] 08-05-2022 14:20-0500 Body height 167.6 cm Apolinar Henry MD Work Phone: 5(073)506-15[address] [place] [id number] 08-05-2022 14:20-0500 Body mass index (BMI) [Ratio] 35.83 kg/m2 Apolinar Henry MD Work Phone: 8(798)447-845515 [place] [id number] 08-05-2022 14:20-0500 Body temperature 97.2 [degF] Apolinar Henry MD Work Phone: 8(771)088-371915 [place] [id number] 08-05-2022 14:20-0500 Body weight 100.7 kg Apolinar Henry MD Work Phone: 8(972)739-928615 [place] [id number] 08-05-2022 14:20-0500 Diastolic blood pressure 90 mm[Hg] Apolinar Henry MD Work Phone: 9(331)141-930215 [place] [address] 08-05-2022 14:20-0500 Heart rate 75 /min Apolinar Henry MD Work Phone: 0(489)004-508415 [place] [address] 08-05-2022 14:20-0500 Systolic blood pressure 156 mm[Hg] Apolinar Henry MD Work Phone: 7(454)531-306515 [place] [address] 07-22-2022 13:23-0500 Body height 167.6 cm Apolinar Henry MD Work Phone: 7(778)984-616315 [place] [id number] 07-22-2022 13:23-0500 Body mass index (BMI) [Ratio] 35.83 kg/m2 Apolinar Henry MD Work Phone: 0(726)135-825515 [place] [id number] 07-22-2022 13:23-0500 Body temperature 97.81 [degF] Apolinar Henry MD Work Phone: 1(636)559-541615 [place] [address] 07-22-2022 13:23-0500 Body weight 100.7 kg Apolinar Henry MD Work Phone: 2(378)208-028615 [place] [address] 07-22-2022 13:23-0500 Diastolic blood pressure 80 mm[Hg] Apolinar Henry MD Work Phone: 7(545)618-698715 [place] [address] 07-22-2022 13:23-0500 Heart rate 69 /min Apolinar Henry MD Work Phone: 7(515)411-833515 [place] [address] 07-22-2022 13:23-0500 Systolic blood pressure 133 mm[Hg] Apolinar Henry MD Work Phone: 7(102)760-883315 [place] [address] 07-15-2022 13:33-0400 Body height 167.6 cm Apolinar Henry MD Work Phone: 8(851)902-188215 [place] [address] 07-15-2022 13:33-0400 Body mass index (BMI) [Ratio] 35.83 kg/m2 Apolinar Henry MD Work Phone: 8(575)360-971015 [place] [address] 07-15-2022 13:33-0400 Body temperature 97.9 [degF] Apolinar Henry MD Work Phone: 1(147)487-550815 [place] [address] 07-15-2022 13:33-0400 Body weight 100.7 kg Apolinar Henry MD Work Phone: 3(740)444-652115 [place] [address] 07-15-2022 13:33-0400 Diastolic blood pressure 83 mm[Hg] Apolinar Henry MD Work Phone: 8(553)118-375015 [place] [address] 07-15-2022 13:33-0400 Heart rate 75 /min Apolinar Henry MD Work Phone: 2(218)026-919815 [place] [address] 07-15-2022 13:33-0400 Systolic blood pressure 140 mm[Hg] Apolinar Henry MD Work Phone: 7(770)216-819615 [place] [address] 07-09-2022 16:55-0400 Diastolic blood pressure 79 mm[Hg] Apolinar Henry MD Work Phone: 4(710)108-055615 [place] [address] 07-09-2022 16:55-0400 Heart rate 87 /min Apolinar Henry MD Work Phone: 4(134)145-422715 [place] [address] 07-09-2022 16:55-0400 Respiratory rate 18 /min Apolinar Henry MD Work Phone: 7(154)232-014415 [place] [address] 07-09-2022 16:55-0400 SaO2% (BldA) [Mass fraction] 97 % Apolinar Henry MD Work Phone: 3(096)922-992415 [place] [address] 07-09-2022 16:55-0400 Systolic blood pressure 149 mm[Hg] Apolinar Henry MD Work Phone: 8(744)300-416315 [place] [address] 07-09-2022 15:05-0400 Body temperature 97.3 [degF] Apolinar Henry MD Work Phone: 1(751)467-139915 [place] [address] 07-09-2022 08:58-0400 Body height 167.6 cm Apolinar Henry MD Work Phone: 9(933)954-352715 [place] [address] 07-09-2022 08:58-0400 Body mass index (BMI) [Ratio] 35.83 kg/m2 Apolinar Henry MD Work Phone: 8(934)441-872415 [place] [address] 07-09-2022 08:58-0400 Body weight 100.7 kg Apolinar Henry MD Work Phone: 3(470)809-604415 [place] [address] 06-30-2022 14:44-0400 Body height 167.6 cm Apolinar Henry MD Work Phone: 7(788)194-193915 [place] [address] 06-30-2022 14:44-0400 Body mass index (BMI) [Ratio] 35.83 kg/m2 Apolinar Henry MD Work Phone: 3(291)506-073115 [place] [address] 06-30-2022 14:44-0400 Body temperature 97.7 [degF] Apolinar Henry MD Work Phone: 0(007)534-824915 [place] [address] 06-30-2022 14:44-0400 Body weight 100.7 kg Apolinar eHnry MD Work Phone: 2(480)136-498615 [place] [address] 06-30-2022 14:44-0400 Diastolic blood pressure 97 mm[Hg] Apolinar Henry MD Work Phone: 8(175)830-856515 [place] [address] 06-30-2022 14:44-0400 Heart rate 119 /min Apolinar Henry MD Work Phone: 1(845)017-114715 [place] [address] 06-30-2022 14:44-0400 Systolic blood pressure 148 mm[Hg] Apolinar Henry MD Work Phone: 5(307)807-422915 [place] [address] 06-16-2022 11:36-0400 Body height 167.6 cm Apolinar Henry MD Work Phone: 5(966)829-348015 [place] [address] 06-16-2022 11:36-0400 Body mass index (BMI) [Ratio] 35.99 kg/m2 Apolinar Henry MD Work Phone: 8(067)416-916415 [place] [address] 06-16-2022 11:36-0400 Body temperature 97.5 [degF] Apolinar Henry MD Work Phone: 7(240)610-185315 [place] [address] 06-16-2022 11:36-0400 Body weight 101.15 kg Apolinar Henry MD Work Phone: 2(119)028-518815 [place] [address] 06-16-2022 11:36-0400 Diastolic blood pressure 89 mm[Hg] Apolinar Henry MD Work Phone: 8(984)656-945615 [place] [address] 06-16-2022 11:36-0400 Heart rate 76 /min Apolinar Henry MD Work Phone: [facility] 06-16-2022 11:36-0400 Systolic blood pressure 148 mm[Hg] Apolinar Henry MD Work Phone: [facility] 05-20-2022 13:46-0400 Body temperature 98.01 [degF] Apolinar Henry MD Work Phone: [facility] 05-20-2022 13:46-0400 Body weight 100.7 kg Apolinar Henry MD Work Phone: [facility] 05-20-2022 13:46-0400 Diastolic blood pressure 95 mm[Hg] Apolinar Henry MD Work Phone: [facility] 05-20-2022 13:46-0400 Heart rate 80 /min Apolinar Henry MD Work Phone: [facility] 05-20-2022 13:46-0400 Systolic blood pressure 150 mm[Hg] Apolinar Henry MD Work Phone: [facility] Encounters Encounter Date Encounter Type Care Provider Facility Start: 08-30-2023 ambulatory Shaikh Tyshawn Facility: [facility] Start: 07-21-2023 ([facility]) [facility] [employer] Manager Adriana Lyn [facility] Start: 07-21-2023 End: 07-21-2023 ambulatory Adriana Lyn Other [facility] [email or web address] Other Start: 07-20-2023 End: 07-21-2023 ambulatory Shaikh Tyshawn ADAMSON Facility:[facility] Start: 07-05-2023 ([facility] Weight Management f/u Susanne [facility] Start: 07-05-2023 End: 07-06-2023 ambulatory Vanessa Mack MD [facility] [email or web address] Other Start: 07-01-2023 End: 07-01-2023 ambulatory Shaikh Tyshawn ADAMSON Facility:[facility] Start: 06-30-2023 End: 06-30-2023 ambulatory Apolinar Henry Facility:[facility] Start: 06-30-2023 End: 06-30-[address] Apolinar Henry Work Phone: [facility] Work Phone: Start: 06-30-2023 End: 06-30-[address] Apolinar Henry Work Phone: [facility] Work Phone: Start: 06-21-2023 End: 06-22-2023 ambulatory Vanessa Mack MD Facility: [facility] Start: 06-16-2023 End: 06-17-2023 ambulatory Shaikh Tyshawn ADAMSON Facility:[facility] Start: 06-02-2023 End: 06-03-2023 ambulatory Shaikh Tyshawn ADAMSON Facility:[facility] Start: 06-01-2023 End: 06-02-2023 ambulatory Adam Betancourt MD Facility:[facility] Start: 06-01-2023 End: 06-02-2023 ambulatory Shaikh Tyshawn ADAMSON Facility:[facility] Start: 05-31-2023 End: 06-01-2023 ambulatory Vanessa Mack MD Facility: [facility] Start: 05-27-2023 ([facility]) [facility] U [employer] Manager Adriana Lyn [facility] Start: 05-27-2023 End: 05-27-2023 ambulatory Adriana Lyn Other [employer] Other Start: 05-05-2023 End: 05-05-2023 ambulatory Apolinar Henry Facility:[facility] Start: 05-05-2023 End: 05-05-[address] Apolinar Henry Work Phone: [facility] Work Phone: Start: 05-05-2023 End: 05-05-[address] Apolinar Henry Work Phone: [facility] Work Phone: Start: 04-12-2023 End: 04-12-2023 ambulatory Susanne Jordan Other [employer] Other Start: 04-12-[address] [facility] Start: 03-15-2023 ([facility]/U) Weight Management f/u [facility] Start: 03-15-2023 End: 03-15-2023 ambulatory Susanne Jordan Other [employer] Other Start: 02-18-2023 End: 02-19-2023 ambulatory Kevin De La Vega APRN-ZEINA Facility:[facility] Start: 01-20-2023 End: 01-21-2023 ambulatory Agnieszka Vazquez PA-C Facility:[facility] Start: 01-01-[address] ADAM SCHWARTZ Facilit y:[facility] Start: 12-23-2022 End: 12-24-2022 ambulatory Kevin De La Vega APRN-ZEINA Facility:[facility] Start: 12-16-2022 End: 12-17-[address] ADAM SCHWARTZ Facility:[facility] Start: 11-18-2022 ambulatory SHAIKH KERRY [facility] Start: 11-18-2022 End: 11-18-2022 Office outpatient visit 25 minutes Apolinar Henry MD Work Phone: [facility] Plastic Surgery Comment on above: 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); S/P breast reconstruction Start: 10-21-2022 ambulatory SHAIKH KERRY [facility] Start: 10-21-2022 End: 10-21-2022 Office outpatient visit 25 minutes Apolinar Henry MD Work Phone: [facility]astic Surgery Comment on above: 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); S/P breast reconstruction Start: 10-07-2022 ambulatory SHAIKH KERRY [facility] Start: 10-07-2022 End: 10-07-2022 Postop follow up visit related to original px Apolinar Henry MD Work Phone: [facility] Surgery Comment on above: 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); S/P breast reconstruction Start: 09-23-2022 ambulatory SHAIKH KERRY [facility] Start: 09-23-2022 End: 09-23-2022 Postop follow up visit related to original debi Henry MD Work Phone: [facility]astic Surgery Comment on above: 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); S/P breast reconstruction Start: 09-16-2022 End: 09-17-2022 ambulatory SHAIKH Tc VILLAGRAN Facility:[facility] Start: 09-16-2022 End: 09-17-[address] TY BOUDREAUX Facility:[facility] Start: 09-15-2022 ambulatory SHAIKH KERRY [facility]INN[facility] Start: 09-15-2022 End: 09-15-2022 Subsequent hospital visit by physician Apolinar Henry MD Work Phone: [facility] Diagnostic Radiology Comment on above: Arrived Start: 08-26-2022 ambulatory SHAIKH KERRY [facility] Start: 08-12-2022 [facility] Start: 08-12-2022 End: 08-12-2022 Postop follow up visit related to original debi Henry MD Work Phone: [facility] Surgery Comment on above: S/P breast reconstru ction (Primary Dx); Personal history of malignant neoplasm of breast; Acquired absence of right breast and nipple Start: 08-05-2022 ambulatory SHAIKH KERRY PADILLAFEDERICO [facility] Start: 08-05-2022 End: 08-05-2022 Postop follow up visit related to original px Apolinar Henry MD Work Phone: [facility]astic Surgery Comment on above: S/P breast reconstru ction (Primary Dx) Start: 07-22-2022 [facility] Start: 07-22-2022 End: 07-22-2022 Postop follow up visit related to original px Apolinar Henry MD Work Phone: [facility] Comment on above: 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); S/P breast reconstruction Start: 07-15-2022 [facility] SHAIKH KERRY [facility] Start: 07-15-2022 End: 07-15-2022 Postop follow up visit related to original debi Henry MD Work Phone: [facility] Surgery Comment on above: 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); Personal history of malignant neoplasm of breast; S/P breast reconstruction Start: 07-09-2022 End: 07-09-2022 [facility] MULUMARY PADILLAELBERTNuno [facility] Start: 07-09-2022 End: 07-09-2022 Subsequent hospital visit by physician Apolinar Henry MD Work Phone: [facility] Comment on above: Personal history of malignant neoplasm of breast Start: 06-30-2022 ambulatory [facility] Start: 06-30-2022 End: 06-30-2022 Office outpatient visit 40 minutes Apolinar Henry MD Work Phone: [facility] Surgery Comment on above: S/P breast reconstru ction (Primary Dx); Acquired absence of right breast and nipple; Personal history of malignant neoplasm of breast Start: 06-25-2022 Encounter for other preprocedural examination SHAIKH Tc VILLAGRAN [facility] Start: 06-23-2022 ambulatory SHAIKH KERRY VILLAGRAN [facility] Start: 06-22-2022 End: 06-23-2022 ambulatory FREEDMASON PRABHAKARWAD Facility:[facility] Start: 06-22-2022 End: 06-23-2022 Encounter for other preprocedural examination SHAIKH Tc KRISHNAD Facility:[facility] Start: 06-16-2022 ambulatory [facility] Start: 06-16-2022 Encounter for other preprocedural examination [facility] Start: 06-16-2022 ambulatory SHAIKH KERRY VILLAGRAN [facility] Start: 06-16-2022 End: 06-16-2022 Office outpatient visit 25 minutes Apolinar Henry MD Work Phone: [facility] Surgery Comment on above: Personal history of malignant neoplasm of breast (Primary Dx); Acquired absence of right breast and nipple Start: 05-21-2022 End: 06-20-2022 ambulatory SHAIKH KERRY VILLAGRAN [facility] Start: 05-20-2022 ambulatory SHAIKH KERRY VILLAGRAN [facility] Start: 05-20-2022 End: 05-20-2022 Office outpatient new 60 minutes Apolinar Henry MD Work Phone: [facility] Surgery Comment on above: Personal history of malignant neoplasm of breast (Primary Dx); Acquired absence of right breast and nipple Start: 03-24-2022 End: 03-25-2022 ambulatory SHAIKH Tc KRISHNAD Facility:[facility] Start: 03-02-2022 End: 03-02-2022 ambulatory FREED Tc PRABHAKARWAD Facility:[facility] Start: 01-13-2022 End: 01-14-2022 ambulatory FREED H FAWWAD Facility:[facility] Start: 06-07-2020 End: 06-08-2020 Patient encounter procedure DC Facility:[facility] Start: 08-05-2018 End: 08-05-2018 Emergency department patient visit GRUPO Matos ity:UNI Start: 07-27-2017 End: 10-14-2017 Ambulatory NANCY MARTINEZ Facility:[facility] Procedures Date Procedure Procedure Detail Performing Clinician Start: 09-23-2022 Follow-up visit Follow-up APOLINAR HENRY Start: 09-15-2022 Radiologic exam chest 2 views Apolinar Henry MD Work Phone: Start: 06-07-2020 ANESTH KNEE JOINT SURGERY LASHA SAMUEL Start: 06-07-2020 KNEE ARTHROSCOPY/SURGERY ADAM Tc JOHNSONHN Start: 08-05-2018 Electrocardiogram GRUPO BROUSSARD Plan of Treatment Date Care Activity Detail Author Start: 09-01-2023 ambulatory Ambulatory Facility:[facility] Start: 07-30-2023 ambulatory Ambulatory Facility:[facility] Start: 04-06-2023 MAMMOGRAM LEFT MAMMOGRAM LEFT [facility] Start: 04-06-2023 Screening for malignant neoplasm of breast MAMMOGRAM LEFT [facility] Start: 01-11-2023 Tetanus vaccination TETANUS [facility] Start: 11-18-2022 End: 11-18-2022 Patient encounter procedure 11/18/2022 Office Visit Plastic Surgery Apolinar Henry MD [address] [place] [address] [facility] Start: 10-21-2022 End: 10-21-2022 Patient encounter procedure 10/21/2022 Office Visit Plastic Surgery Apolinar Henry MD [address] [place] [address] [facility] Start: 10-07-2022 End: 10-07-2022 Patient encounter procedure 10/07/2022 Office Visit Plastic Surgery Apolinar Henry MD [address] [place] [address] [facility] Start: 09-23-2022 End: 09-23-2022 Patient encounter procedure 09/23/2022 Office Visit Plastic Surgery Apolinar Henry MD [address] [place] [address] [facility] Start: 08-26-2022 End: 08-26-2022 Patient encounter procedure 08/26/2022 Office Visit Plastic Surgery Apolinar Henry MD [address] [place] [address], [place] [address] [facility] Start: 08-12-2022 End: 08-12-2022 Patient encounter procedure 08/12/2022 Office Visit Plastic Surgery Apolinar Henry MD [address] [place] [address], [place] [address] [facility] Start: 08-05-2022 End: 08-05-2022 Patient encounter procedure 08/05/2022 Office Visit Plastic Surgery Apolinar Henry MD [address] [place] [address], [place] [address] [facility] Start: 07-22-2022 End: 07-22-2022 Patient encounter procedure 07/22/2022 Office Visit Plastic Surgery Apolinar Henry MD [address] [place] [address], [place] [address] [facility] Start: 07-15-2022 End: 07-15-2022 Patient encounter procedure 07/15/2022 Office Visit Plastic Surgery Apolinar Henry MD [address] [place] [address], [place] [address] [facility] Start: 07-09-2022 Subsequent hospital visit by physician 07/09/2022 Hospital Encounter Multispecialty Apolinar Henry MD [address] [facility] [place] [address] Personal history of malignant neoplasm of breast ANA GAL Periop Comment on above: Personal history of malignant neoplasm of breast Start: 07-09-2022 End: 07-09-2022 Admission to same day surgery center 07/09/2022 Surgery Multispecialty Apolinar Henry MD [address] [place] [address] RT BREAST RECONSTRUCTION W/ PLACEMENT TISSUE SPECIALIST PHYSICIANS & ADM ANA GAL Periop Comment on above: RT BREAST RECONSTRUC TION W/ PLACEMENT TISSUE SPECIALIST PHYSICIANS & ADM Start: 07-09-2022 End: 07-09-2022 Anesthesia consultation 07/09/2022 [facility] DO [address] [place] [address] ANA GAL Periop Start: 07-09-2022 End: 07-09-2022 Brst rcnstj immt/dlyd w/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 operator sbsq xpnsj RECONSTRUCTION BREAST TISSUE SPECIALIST PHYSICIANS INCLUDING SUBSEQUENT EXPANDERS 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 07/09/2022 10:30 AM EDT ANA GAL OR Start: 07-09-2022 End: 07-09-2022 Implnt bio implnt for soft tissue reinforcement IMPLANTATION BIOLOGIC IMPLANT FOR SOFT TISSUE REINFORCEMENT ADD-ON PX 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 07/09/2022 10:30 AM EDT ANA GAL OR Start: 06-30-2022 End: 06-30-2022 Patient encounter procedure 06/30/2022 Office Visit Plastic Surgery Apolinar Henry MD [address] [place] [address] [facility] Start: 05-14-2022 Influenza vaccination INFLUENZA VACC INE (#1) [facility] Start: 12-03-2021 COVID-19 VACCINE (4 - Booster for Pfizer series) COVID-19 VACCINE (4 - Booster for Pfizer series) [facility] Start: 09-30-2021 COVID-19 VACCINE (4 - Booster for Pfizer series) COVID-19 VACCINE (4 - Booster for Pfizer series) [facility] Start: 2015 Pneumococcal vaccination PNEUM OCOCCAL VACCINE SERIES (1 - PCV) [facility] Start: 2000 Zoster vaccine hzv l vera for subcutaneous use ZOSTER (SHINGLES) VACCINE (1 of 2) [facility] Start: 1995 Colonoscopy COLORECTAL CAN CER SCREENING DISCUSSION [facility] Start: 1995 Screening for malign ant neoplasm of colon COLORECTAL CANCER SCREENING DISCUSSION [facility] Start: 1990 Fasting lipid profile LIPID SCREENIN G [facility] Start: 1990 Lipid panel LIPID SCREENING [facility] Start: 1980 MAMMOGRAM LEFT MAMMOGRAM LEFT [facility] Start: 1971 Screening for malign ant neoplasm of cervix CERVICAL CANCER SCREENING DISCUSSION [facility] Start: 1969 Third diphtheria, tetanus and acellular pertussis (DTaP) vaccination TDAP (ADULT) [facility] Start: [address] [facility] Start: 1950 Hepatitis C antibody , confirmatory test HEPATITIS C VIRUS SCREENING [facility] Start: 1950 Hepatitis C screening HEPATITI S C VIRUS SCREENING [facility] Start: 1950 Screening for osteoporosis DEXA SCAN DISCUSSION [facility] Start: 1950 Thyroid stimulating hormone measurement TSH [facility] Immunizations Immunization Date Immunization Notes Care Provider Padilla eduardo 08-05-2021 influenza virus vaccine, unspecified formulation Apolinar Henry MD Work Phone: [facility] Payers Date Payer Category Payer [employer]) [id number] 2022 Self-pay 2021 [employer]) [id number] 2021 [employer] ( [employer] others) [id number] 2021 Unknown 2020 Medicare MEDICARE ANTHEM HMO OR PPO MEDICARE ANTHEM HMO OR PPO [id number] 2020-Present [address] [place] [address] [id number] 2019 Unknown [id number] 2017 Medicare [id number] 2016 [employer] ( and others) [id number] 1959 [employer] ( and others) [id number] 1959 Medicare [id number] 1950 Unknown [id number] 2.16.840.1.120132.3.579.2. 647 1950 Unknown [id number] 2.16.840.1.878450.3.579.2. 983 1950 Unknown [id number] 2.16.840.1.147658.3.579.2. 983 1950 Unknown [id number] 2.16.840.1.899263.3.579.2. 983 1950 Unknown [id number] 2.16.840.1.443112.3.579.2. 983 1950 Unknown [id number] 2.16.840.1.125315.3.579.2. 983 1950 Unknown [id number] 2.16.840.1.490184.3.579.2. 983 1950 Unknown [id number] 2.16.840.1.953284.3.579.2. 983 1950 Unknown [id number] 2.16.840.1.801542.3.579.2. 983 1950 Unknown [id number] 2.16.840.1.098396.3.579.2. 983 1950 Unknown [id number] 2.16.840.1.322823.3.579.2. 983 1950 Unknown [id number] 2.16.840.1.775789.3.579.2. 983 1950 Unknown [id number] 2.16.840.1.154169.3.579.2. 983 1950 Unknown [id number] 2.16.840.1.286139.3.579.2. 983 1950 Unknown [id number] 2.16.840.1.888233.3.579.2. 983 1950 Unknown [id number] 2.16.840.1.503505.3.579.2. 983 1950 Unknown [id number] 2.16.840.1.555898.3.579.2. 983 1950 Unknown [id number] 2.16.840.1.745574.3.579.2. 983 1950 Unknown [id number] 2.16.840.1.563174.3.579.2. 983 1950 Unknown [id number] 2.16.840.1.197189.3.579.2. 593 1950 Unknown [id number] 2.16.840.1.373703.3.579.2. 593 1950 Unknown [id number] 2.16.840.1.478082.3.579.2. 593 1950 Unknown [id number] 2.16.840.1.888542.3.579.2. 593 1950 Unknown [id number] 2.16.840.1.927694.3.579.2. 593 1950 Unknown [id number] 2.16.840.1.285319.3.579.2. 593 1950 Unknown [id number] 2.16.840.1.301851.3.579.2. 593 1950 Unknown [id number] 2.16.840.1.615787.3.579.2. 593 1950 Unknown [id number] 2.16.840.1.253864.3.579.2. 593 1950 Unknown [id number] 2.16.840.1.243183.3.579.2. 196 1950 Unknown [id number] 2.16.840.1.343584.3.579.2. 196 1950 Unknown [id number] 2.16.840.1.316458.3.579.2. 196 1950 Unknown [id number] 2.16.840.1.905451.3.579.2. 196 1950 Unknown [id number] 2.16.840.1.278192.3.579.2. 196 1950 Unknown [id number] 2.16.840.1.425996.3.579.2. 196 1950 Unknown [id number] 2.16.840.1.964256.3.579.2. 196 1950 Unknown [id number] 2.16.840.1.321153.3.579.2. 196 1950 Unknown [id number] 2.16.840.1.876981.3.579.2. 196 1950 Unknown [id number] 2.16.840.1.596899.3.579.2. 196 1950 Unknown [id number] 2.16.840.1.652890.3.579.2. 196 1950 Unknown [id number] 2.16.840.1.412586.3.579.2. 196 1950 Unknown [id number] 2.16.840.1.916490.3.579.2. 196 1950 Unknown [id number] 2.16.840.1.780672.3.579.2. 196 1948 Unknown [id number] 2.16.840.1.959665.3.579.2. 196 Department of [facility] ([facility], [place] and others) [id number] 2.16.840.1.077268.19 Medicare [id number] Private Health Insurance [id number] Unknown [id number] 2.16.840.1.210457.3.579.2. 283 Unknown [id number] 2.16.840.1.929509.3.579.2. 462 Unknown [id number] 2.16.840.1.874628.3.579.2. 462 Unknown [id number] 2.16.840.1.060232.3.579.2. 462 Unknown [id number] 2.16.840.1.590016.3.579.2. 531 Social History Date Type Detail Facility Start: 05-20-2022 Tobacco smoking status NHIS Never smoked tobacco [facility] Start: 05-20-2022 Tobacco use and exposure Smokeless tobacco non-user [facility] Start: 05-20-2022 Alcohol intake Ex-drinker (finding) [facility] Start: 1950 Sex Assigned At Not on file [facility] Start: 06-16-2022 End: 11-18-2022 Alcohol intake Current drinker of alcohol (finding) [facility] Start: 06-16-2022 History SDOH Alcohol Comment SELDOM [facility] Start: 06-29-2022 End: 07-09-2022 Exposure to SARS-CoV-2 (event) Not sure [facility] Sex Assigned At Sex Assigned At [facility] [employer] Other Start: 05-05-2023 End: 06-30-2023 Tobacco smoking status NHIS Unknown if ever smoked [facility] Start: 1950 Sex Assigned At Female W [facility] Medical Equipment Procedure Code Equipment Code Equipment Origin al Text Equipment Identifier Dates [employer] [facility]ine Breast Implant [id number] Start: 07-09-2022 Clinical Notes 01-13-2022 to 07-21-2023 Note Date & Type Note Facility 07-21-2023 Evaluation note Encounter Date Diagnosis Assessment Notes Jul, Obesity (ICD-10 - E66.9) Jul, BMI 34.0-34.9,a dult (ICD-10 - Z68.34) Jul, Other Summary of Visit: (A) tips for constipation including high fiber, adequate hydration, exercise; occassional laxative and fiber supplement options. (B) tips for incorporating pt's favorite foods Patient set the following goals: - increase fiber foods to 30 g/day- partially met, continue -increase protein foods- Not reviewed [employer] Other 10-23-2023 Evaluation note* Encounter Date Diagnosis Assessment Notes Treatment Notes Treatment Clinical Notes Jun, Obesity (ICD-10 - E66.9) Patient continues to respond positively to Ozempic at the low-dose of 0.25 mg. She is down an additional 7.1 pounds since her last visit about 8 weeks ago, down a total of 24.9 pounds since starting with this mid January which equates to an 11% body weight loss. She continues to receive positive benefit of weight loss, decreased portion sizes, overall improvement in her satiety. Most challenging now with her exercise and not being able to incorporate anything formal especially with her recent surgery and back pain they have been working on. She does anticipate getting reconnected with Janina her transformation coach once she 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 her neck surgery in a couple weeks. Reinforced the need to focus on dietary choices when activity is suppressed. Also reinforced the negative weight change despite decreasing and activity since her surgery. Spouse would like to calibrate scale from home to hours therefore they may bring it in at their next visit. Explained about were not so much focused on a pound here and there but rather a long-term continue them as well as other data points such as we circumference, lab studies, quality of life etc. Continue Ozempic at 0.25 mg dose 90 days sent to pharmacy Praised patient and her efforts and success so far with 11% weight loss. We did discuss limitations of the medication itself but she is still at a pace of near 1 pound body weight loss per week which is in line with our goal of 0.5 to 2 pounds of weight loss weekly which is healthy and sustainable. Connect with Janina after she recovers from her surgery scheduled 07/30 Consider holding Ozempic for a week or so prior to surgery to decrease risk of any aspiration due to slow GI motility. He open with anesthesia team 30 minutes was spent with the patient/ review of documentation pertaining to the visit today. DOM Mccurdy Jun, Breast cancer (ICD-10 - C50.919) Breast expanders surgery is anticipated in the next couple weeks. We will follow Jun, Back pain (ICD-10 - M54.9) She reports improvement in her back pain most recently from some back injection she has been getting through pain management. Hopefully once she is able to get back pain under control as well as released from her surgeons from her surgery she will be able to get back into a better exercise routine which could contribute to further weight loss and muscle conservation. Jun, Hyperlipidemia (ICD-10 - E78.5) Jun, GERD (gastroesophageal reflux disease) (ICD-10 - K21.9) Jun, NARA on CPAP (ICD-10 - G47.33) Jun, Depression (ICD-10 - F32.9) Jun, Overactive bladder (ICD-10 - N32.81) Jun, Hypothyroid (ICD-10 - E03.9) Jun, Impaired fasting glucose (ICD-10 - R73.01) She continues to receive dual benefit from Ozempic for both improved insulin sensitivity as well as weight loss. Jun, Encounter for weight management (ICD-10 - Z76.89) [employer] Other 09-20-2023 NoteBREAST IMAGING CONSULTATION: 06/01/2023 CLINICAL: Screening. Comparison is made to exams dated: 04/06/2022 mammogram and 03/13/2021 mammogram - [facility]. The tissue of left breast is heterogeneously dense. This may lower the sensitivity of mammography. Current study was also evaluated with a Computer Aided Detection (CAD) system. There are benign vascular calcifications in the left breast. No significant masses, calcifications, or other findings are seen in the breast. IMPRESSION: BENIGN There is no mammographic evidence of malignancy. A 1 year screening mammogram is recommended. (06/01/2024) The patient was notified of the results. Your patient's mammogram demonstrates that she has dense breast tissue, which could hide small abnormalities. In compliance with H.B. 394 Section 3702.40 the patient has been sent a letter which informs her that she has dense breast tissue and might benefit from supplementary screening tests depending on her individual risk factors. The patient may contact you if she has any questions or concerns. Investigation of a clinically suspicious lesion should not be precluded by the lack of specific imaging findings. 10-15% of breast cancers may not be detected on mammograms. The [employer] supports annual screening mammography starting at age 40. Carol Tran D.O. cw/penrad:06/02/2023 09:27:52 Desktop Technician(s): Beth Camacho, RT(R)(M), [facility] letter sent: New Mammo Normal B1/2 Mammogram BI-RADS: 2 Benign Final Dictated by: Carol Tran DO Signed by: Carol Tran DO Signed (Electronic Signature): 06/02/2023 9:27 am (If Report Is Signed, Electronically Signed in Other Vendor System)[facility]09-19-2023 NoteChief Complaint Patient presents for evaluation of left inguinal bulge. History of Present Illness 73 year old female, patient of Dr. Villagran ([place], [place]) Patient presents with a palpable bulge in the left groin area. This has been ongoing for a long time. Patient reports worsening pain. Specific triggers include: none. Notes constipation. States that bowels move approximately once a week. Reports that bulge is not reducible. An ultrasound was obtained 05/07/2023, at [facility]. She has history of myocardial infarction, that occurred in 2013during a surgery. Review of Systems Constitutional: No fevers, chills, sweats, weight loss or weight gain Respiratory: No shortness of breath, cough Cardiovascular: +CAD, h/o ME Gastrointestinal: +See HPI Liver: No jaundice, hepatitis Genitourinary: No hematuria, no kidney problems Hematologic: Never been transfused, no bleeding disorders Neuro: Denies strokes, TIA, seizures As reviewed in the HPI. All other systems reviewed are negative or normal. Physical Exam Vitals & Measurements HR: 70 (Peripheral) BP: 119/74 HT: 168 cm WT: 95.25 kg (Estimated) WT: 95.25 kg (Dosing) BMI: 33.75 Gen: Awake, alert Lungs: non-labored respiration Abdomen: Soft, non-tender, non-distended reducible left inguinal hernia Assessment/Plan Patient with a symptomatic, reducible left inguinal hernia We reviewed options Will schedule robotic repair with mesh Risks/benefits discussed, patient understands and agrees Time Spent with the Patient I have personally spent 15 minutes on this date, directly related to today's patient visit, including pre and post visit work, for this date of service. Time listed does not include time spent on separately billable services. Problem List/Past Medical History Ongoing CAD (coronary artery disease) Chronic GERD CPAP/BiPAP dependent Cystocele Depression Hyperlipidemia Hypothyroidism OAB (overactive bladder) Vaginal atrophy Historical Arthritis of left hip Breast cancer Colon polyps: hyperplastic & tubular adenomas (04/2019) COVID-19 (09/2021) ME (myocardial infarction) (2013) Morbid obesity with body mass index (BMI) of 40.0 or higher PMB (postmenopausal bleeding) Sleep apnea Thickened endometrium Vaginal ulcer Procedure/Surgical History Bilateral cataract extraction Extensive vaginal resection of vaginal tissue Hysteroscopy, D&C Left knee arthroscopy Right shoulder, rotator cuff repair Sinus surgery (1984) Tubal ligation (1989) Right mastectomy (1992) Right knee arthroscopy (07/2014) Cardiac catheterization (07/2014) [place] Procedure Robotic Si (05/04/2017) Dilatation and Curettage (05/04/2017) Repair Anterior and Posterior Vagina (05/04/2017) Total Hysterectomy Robotic Si (05/04/2017) Colonoscopy Polypectomy (04/20/2019) Esophageal Manometry (02/15/2020) Esophagogastroduodenoscopy with Biopsy with Arana (02/15/2020) Urodynamic studies (05/26/2021) Repair Anterior Vagina (06/27/2021) Right breast reconstruction (06/2022) Medications Albuterol (Eqv-ProAir HFA) 90 mcg/inh inhalation aerosol Aspirin Low Dose, 81 mg, Oral, Daily Calcium 600+D, 2, Oral, Daily citalopram 20 mg oral tablet Collagen, 1 tabs, Oral, Daily esomeprazole 40 mg oral delayed release capsule, 40 mg= 1 caps, Oral, qAM famotidine 20 mg oral tablet, 20 mg= 1 tabs, Oral, Daily Flax Seed Oil, 1200 mg, Oral, Daily ibuprofen 600 mg oral tablet levothyroxine 50 mcg (0.05 mg) oral tablet, 50 mcg= 1 tabs, Daily melatonin 10 mg oral tablet, 10 mg= 1 tabs, Oral, HS (at bedtime) multivitamin, 1 tabs, Oral, Daily Ozempic (0.25 mg or 0.5 mg dose), 0.25 mg, Subcutaneous, Weekly simvastatin 20 mg oral tablet, 20 mg= 1 tabs, HS (at bedtime) Toviaz 8 mg oral tablet, extended release, 8 mg= 1 tabs, Oral, Daily, 4 refills Allergies penicillins (Rash) sulfa drugs (Rash) Social History Alcohol Current, Wine, Liquor Exercise Self assessment: Fair condition. Home/Environment Lives with Spouse. Living situation: Home/Independent. , Home equipment: CPAP/BiPAP. 1 INSIDE CAT Nutrition/Health Regular, Caffeine intake amount: DRINK SWEET TEA DAILY, OCCASSIONAL COKE AND CHOCOLATE. Sexual Sexually active: Yes. Substance Abuse Denies All Tobacco Never (less than 100 in lifetime) Use:. Family History Breast cancer: Aunt/Uncle. Congestive heart failure: Father. Heart disease: Father. Natural : Mother. Stroke..: Mother and Father. Health Maintenance Colonoscopy 04/20/2019 Electronically signed by Jovan Betancourt MD 06/01/23 21:48 EDT Electronically signed by Teresita Winn 05/25/2023 15:28 EDT Electronically signed by Emely Zendejas PA-C 06/02/2023 09:41 [facility] 05-27-2023 Evaluation note* Encounter Date Diagnosis Assessment Notes Treatment Notes Treatment Clinical Notes May, Obesity (ICD-10 - E66.9) May, BMI 34.0-34.9,adult (ICD-10 - Z68.34) May, Other Summary of Visi t: (A) reviewed plate method encouraging high fiber, nutrient dense foods (B) tips for constipation including high fiber, adequate hydration, exercise; occassional laxative and fiber supplement options. Remind pt to stay on top of constipation before and after surgeries (C) tips for protein intake for wm and surgery prep/healing. Recommended 100+ g/day sources reviewed Patient set the following goals: -NEW increase fiber foods to 30 g/day -NEW: increase protein foods [employer] Other 09-07-2023 NotePatient Education Materials Name: Berenice Nolasco Current Date: 05/20/2023 13:09:49 [facility] : 1950 The following sheet(s) are the Patient Education Leaflets for Gaur[facility]Eliazarroberto [facility] ED/Trauma What Is a Hernia? A hernia is when an organ or tissue pushes through a weak area in the belly (abdominal) wall. This weak area may be there at . Or it may be caused by abdominal strain over time. If not treated, a hernia can get worse with time and physical stress. When a bulge forms When there is a weak area in the abdominal wall, an organ or tissue can push outward. This often causes a bulge that you can see under your skin. The bulge may get bigger when you stand up. It may goaway when you lie down. You may also feel some pressure or mild pain when lifting, coughing, urinating, or doing other activities. Types of hernias The type of hernia you have depends on where it's at. Most hernias form in the groin at or near theinternal ring. This is the entrance to a canal between the abdomen and groin. Hernias can also occur in the abdomen, thigh, or genitals. ?An incisional hernia occurs at the site of a previous surgical cut (incision). ?An umbilical hernia occurs at the bellybutton (navel). ?An indirect inguinal hernia occurs in the groin at the internal ring. ?A direct inguinal hernia occurs in the groin near the internal ring. ?A femoral hernia occurs just below the groin. ?An epigastric hernia occurs in the upper abdomen at the midline. Other types of hernias can occur. But they are rare. Diagnosis In most cases, your healthcare provider can diagnose a hernia by doing a physical exam. In some cases, it might not be clear why you have swelling in the belly wall. Then your provider may order an imaging test such as an ultrasound. This can help with the diagnosis. Surgery A hernia will not heal on its own. Surgery is needed to fix the weak spot in the belly wall. If nottreated, a hernia can get larger. It can also cause serious health problems. Some hernias can be watched. They can then be fixed if they grow bigger or start to cause symptoms. The good news is that hernia surgery can be done quickly and safely. Most hernias are fixed with laparoscopic surgery. This type of surgery is done through several verysmall cuts. Other hernias may need open surgery. A larger cut is made in the belly. In?some cases, you can go home the same day as your surgery. When to call your provider Call or see your healthcare provider right away if the swelling around your?hernia becomes?larger,?firmer, or more painful. These may be?signs that your intestines are?stuck in the belly wall. This is an emergency. The hernia must be fixed right away to prevent serious problems. ? [id number] [employer]. [address] [place] [address]. All rights reserved. This information is not intended as a substitute for professional medical care. Always follow your healthcare professional's instructions.[facility]07-03-2023 Evaluation note* Encounter Date Diagnosis Assessment Notes Treatment Notes Treatment Clinical Notes Mar, Obesity (ICD-10 - E66.9) Patient has responded positively to Ozempic at the very low-dose 0.25 mg. She is down 7.5 pounds in the last 6 weeks which is within our goal of 1/2 pound to 2 pounds weight loss per week. Her initial goal will be 5% weight loss (11.6 pounds). Our second weight loss goal will be 10% weight loss (23.3 pounds) from her initial weight. After patient provider discussion and spouses input as well we agreed to continue the medication we will keep at a very low-dose of 0.25 mg despite consideration of 0.5 mg for cost and side effect concerns. They were provided with SAMPLE of Ozempic pen to help alleviate some of the cost while we assess her tolerance. Extra pen needles were given to patient. Consider patient assistance or alternative if patient has a nice clinical response. Continue incorporating more fruits and vegetables as well as a forward focus of protein especially in the morning and paired with her garcia juice. Strongly encouraged engaging with swimming since it is something she loves doing and we are in the summer months. Advised that this is a amazing exercise and therapy for her back and knee pain. Physical activity will also improve sleep and can be helpful for her mental health. Continue to engage with dietitian, she has attended the group class on 03/04 and will be having her initial one-on-one visit on 04/29. 35 minutes was spent with the patient/ review of documentation pertaining to the visit today. DOM Mccurdy Mar, Breast cancer (ICD-10 - C50.919) Mar, Back pain (ICD-10 - M54.9) Strongly consider incorporating swimming for physical, mental health, weight loss and overall health goals keeping in mind her arthritis and back pain. Mar, Hyperlipidemia (ICD-10 - E78.5) Our goal 5 to 10% weight loss should help to decrease cholesterol levels. Consider recheck of labs approximately 6 months from initial Mar, GERD (gastroesophageal reflux disease) (ICD-10 - K21.9) Mar, NARA on CPAP (ICD-10 - G47.33) Mar, Depression (ICD-10 - F32.9) Patient reports feeling better physically and mentally on the Ozempic. She feels that she is in a good mindset and denies any significant mood swings or severe depressive thoughts today. Mar, Overactive bladder (ICD-10 - N32.81) Mar, Hypothyroid (ICD-10 - E03.9) Mar, Impaired fasting glucose (ICD-10 - R73.01) Mar, Encounter for weight management (ICD-10 - Z76.89) [employer] Other 03-08-2023 History of Present illness Narrative* Raphael Majano LPN - 11/18/2022 2:30 PM EST General Plastics Review of Systems: Do you have any of the following: Chills, Fatigue, Fever or Night Sweats: no. Ear pain or eye discharge: no. Hearing loss or visual changes: no. Sore throat or chronic cough: no. Shortness of breath: no. Chest pain, swelling, or heart palpitations: no. Abdominal pain: no. Constipation or diarrhea: no. Heartburn or Nausea: no. Rash or skin problems: no. Dizziness or numbness: no. Headaches or Migraines: no. Seizures: no. Joint pain, joint swelling or muscle weakness: no. Bruise or bleed easily: no. Any swollen lymph nodes: no. Have you used any nicotine products in the last 3 months? no. Do you use any cannabis, THC or marijuana containing products? no. * Apolinar Henry MD - 11/18/2022 2:30 PM EST Subjective: Berenice Nolasco is an 72 y.o. female who presents for other discussion regarding her right breast reconstruction. At this point the decision is whether to leave the creel operator and removal Of the port were to proceedwith expansion and replace with permanent implant. Allergies Allergen Reactions Penicillins Itching Other reaction(s): Other Sulfa Antibiotics Itching Sulfasalazine Itching Current Outpatient Medications Medication Sig Dispense Refill CALCIUM PO Take by mouth daily. citalopram 20 MG tablet Take 1 tablet by mouth daily. COLLAGEN PO Take by mouth. esomeprazole [address] capsule Take 1 capsule by mouth daily every morning. faMOTIdine 20 MG tablet Take 1 tablet by mouth at bedtime. Flaxseed, Linseed, (Flax Seed Oil) 1000 MG capsule 1 capsule daily. ibuprofen 400 MG tablet Take 1 tablet by mouth every 6 hours as needed for Mild Pain. levothyroxine 50 MCG tablet daily every morning. MELATONIN PO Take by mouth daily. multivitamin tablet Take 1 tablet by mouth daily. simvastatin 20 MG tablet simvastatin 20 mg tablet Take 1 tablet by mouth at bedtime trospium XR 60 MG Cap SR 24HR trospium ER 60 mg capsule,extended release 24 hr take 1 capsule by mouth every morning oxyCODONE-acetaminophen 5-325 MG per tablet Take 1 tablet by mouth every 6 hours as needed for Moderate Pain (Use ONLY as needed for pain) for up to 3 days. 10 tablet 0 No current facility-administered medications for this visit. Past Medical History: Diagnosis Date Depression GERD (gastroesophageal reflux disease) Hyperlipidemia Hypothyroidism Ischemic DURING KNEE SCOPE IN 2017 Malignant neoplasm of female breast ME (myocardial infarction) with knee scope PVD (peripheral vascular disease) Past Surgical History: Procedure Laterality Date RECONSTRUCTION BREAST TISSUE SPECIALIST PHYSICIANS INCLUDING SUBSEQUENT EXPANDERS Right 07/09/2022 Laterality: Right; Surgeon: Apolinar Henry MD; Location: [facility] OR IMPLANTATION BIOLOGIC IMPLANT FOR SOFT TISSUE REINFORCEMENT ADD-ON PX Right 07/09/2022 RT BREAST RECONSTRUCTION W/ PLACEMENT TISSUE SPECIALIST PHYSICIANS & ADM/ 150 CC FILL MASTECTOMY Right 1993 BLADDER REPAIR HYSTERECTOMY KNEE SURGERY Bilateral 2017 AND HAD ME DURING SURGERY ORAL SURGERY REMOVAL CATARACT (PEM) SHOULDER SURGERY Right SINUS SURGERY TUBAL LIGATION Family History Problem Relation Age of Onset Clotting Disorder Mother PE Social History Socioeconomic History Marital status: Spouse name: Not on file Number of children: Not on file Years of education: Not on file Highest education level: Not on file Occupational History Not on file Tobacco Use Smoking status: Never Smokeless tobacco: Never Vaping Use Vaping Use: Never used Substance and Sexual Activity Alcohol use: Yes Comment: SELDOM Drug use: Never Sexual activity: Not on file Other Topics Concern Not on file Social History Narrative Not on file Social Determinants of Health Financial Resource Strain: Not on file Food Insecurity: Not on file Transportation Needs: Not on file Physical Activity: Not on file Stress: Not on file Social Connections: Not on file Intimate Partner Violence: Not on file Housing Stability: Not on file Review of Systems Pertinent items are noted in HPI. General Plastics Review of Systems: Do you have any of the following: Chills, Fatigue, Fever or Night Sweats: no. Ear pain or eye discharge: no. Hearing loss or visual changes: no. Sore throat or chronic cough: no. Shortness of breath: no. Chest pain, swelling, or heart palpitations: no. Abdominal pain: no. Constipation or diarrhea: no. Heartburn or Nausea: no. Rash or skin problems: no. Dizziness or numbness: no. Headaches or Migraines: no. Seizures: no. Joint pain, joint swelling or muscle weakness: no. Bruise or bleed easily: no. Any swollen lymph nodes: no. Have you used any nicotine products in the last 3 months? no. Do you use any cannabis, THC or marijuana containing products? no. Objective: BP 143/83 (BP Location: Left arm, BP Position: Sitting) Pulse 78 Temp 97 F (36.1 C) (Temporal) Ht 1.676 m (5' 6 ) BMI 35.83 kg/m Smoking Status Never The patient's right creel operator is in good position. The overlying tissue is softened. The port is palpable. I demonstrated to the patient that the size is suitable and that this would be her decision on how she would like to proceed. I recommended that if she is indecisive, that we not do anything at this time. she is having several procedures for varicose veins and I have suggested she reconsider her optionslater this year I spent 25 minutes total time with the patient. Assessment: Right breast reconstruction Plan: Follow-up later this year documented in this [facility]02-08-2023 History of Present illness Narrative* Raphael Majano LPN - 10/21/2022 1:45 PM EST General Plastics Review of Systems: Do you have any of the following: Chills, Fatigue, Fever or Night Sweats: no. Ear pain or eye discharge: no. Hearing loss or visual changes: no. Sore throat or chronic cough: no. Shortness of breath: no. Chest pain, swelling, or heart palpitations: no. Abdominal pain: no. Constipation or diarrhea: no. Heartburn or Nausea: no. Rash or skin problems: no. Dizziness or numbness: no. Headaches or Migraines: no. Seizures: no. Joint pain, joint swelling or muscle weakness: no. Bruise or bleed easily: no. Any swollen lymph nodes: no. Have you used any nicotine products in the last 3 months? no. Do you use any cannabis, THC or marijuana containing products? no. * Apolinar Henry MD - 10/21/2022 1:45 PM EST Subjective: Berenice Nolasco is an 72 y.o. female who presents for evaluation of Right breast reconstruction. Deniedpain post fill on 10/07/2022. Allergies Allergen Reactions Penicillins Itching Other reaction(s): Other Sulfa Antibiotics Itching Sulfasalazine Itching Current Outpatient Medications Medication Sig Dispense Refill CALCIUM PO Take by mouth daily. citalopram 20 MG tablet Take 1 tablet by mouth daily. COLLAGEN PO Take by mouth. esomeprazole [address] capsule Take 1 capsule by mouth daily every morning. faMOTIdine 20 MG tablet Take 1 tablet by mouth at bedtime. Flaxseed, Linseed, (Flax Seed Oil) 1000 MG capsule 1 capsule daily. ibuprofen 400 MG tablet Take 1 tablet by mouth every 6 hours as needed for Mild Pain. levothyroxine 50 MCG tablet daily every morning. MELATONIN PO Take by mouth daily. multivitamin tablet Take 1 tablet by mouth daily. simvastatin 20 MG tablet simvastatin 20 mg tablet Take 1 tablet by mouth at bedtime trospium XR 60 MG Cap SR 24HR trospium ER 60 mg capsule,extended release 24 hr take 1 capsule by mouth every morning oxyCODONE-acetaminophen 5-325 MG per tablet Take 1 tablet by mouth every 6 hours as needed for Moderate Pain (Use ONLY as needed for pain) for up to 3 days. 10 tablet 0 No current facility-administered medications for this visit. Past Medical History: Diagnosis Date Depression GERD (gastroesophageal reflux disease) Hyperlipidemia Hypothyroidism Ischemic DURING KNEE SCOPE IN 2017 Malignant neoplasm of female breast ME (myocardial infarction) with knee scope PVD (peripheral vascular disease) Past Surgical History: Procedure Laterality Date RECONSTRUCTION BREAST TISSUE SPECIALIST PHYSICIANS INCLUDING SUBSEQUENT EXPANDERS Right 07/09/2022 Laterality: Right; Surgeon: Apolinar Henry MD; Location: [facility] OR IMPLANTATION BIOLOGIC IMPLANT FOR SOFT TISSUE REINFORCEMENT ADD-ON PX Right 07/09/2022 RT BREAST RECONSTRUCTION W/ PLACEMENT TISSUE SPECIALIST PHYSICIANS & ADM/ 150 CC FILL MASTECTOMY Right 1992 BLADDER REPAIR HYSTERECTOMY KNEE SURGERY Bilateral 2016 AND HAD ME DURING SURGERY ORAL SURGERY REMOVAL CATARACT (PEM) SHOULDER SURGERY Right SINUS SURGERY TUBAL LIGATION Family History Problem Relation Age of Onset Clotting Disorder Mother PE Social History Socioeconomic History Marital status: Spouse name: Not on file Number of children: Not on file Years of education: Not on file Highest education level: Not on file Occupational History Not on file Tobacco Use Smoking status: Never Smokeless tobacco: Never Vaping Use Vaping Use: Never used Substance and Sexual Activity Alcohol use: Yes Comment: SELDOM Drug use: Never Sexual activity: Not on file Other Topics Concern Not on file Social History Narrative Not on file Social Determinants of Health Financial Resource Strain: Not on file Food Insecurity: Not on file Transportation Needs: Not on file Physical Activity: Not on file Stress: Not on file Social Connections: Not on file Intimate Partner Violence: Not on file Housing Stability: Not on file Review of Systems Pertinent items are noted in HPI. General Plastics Review of Systems: Do you have any of the following: Chills, Fatigue, Fever or Night Sweats: no. Ear pain or eye discharge: no. Hearing loss or visual changes: no. Sore throat or chronic cough: no. Shortness of breath: no. Chest pain, swelling, or heart palpitations: no. Abdominal pain: no. Constipation or diarrhea: no. Heartburn or Nausea: no. Rash or skin problems: no. Dizziness or numbness: no. Headaches or Migraines: no. Seizures: no. Joint pain, joint swelling or muscle weakness: no. Bruise or bleed easily: no. Any swollen lymph nodes: no. Have you used any nicotine products in the last 3 months? no. Do you use any cannabis, THC or marijuana containing products? no. Objective: BP 142/86 (BP Location: Left arm, BP Position: Sitting) Pulse 76 Temp 97.3 F (36.3 C) (Temporal) Ht 1.676 m (5' 6 ) BMI 35.83 kg/m Smoking Status Never Patient with right breast tissue creel operator. She has left breast ptosis and hypertrophy. The port is in satisfactory position. The patient has many questions and is undecided regarding further reconstructive plans. She is interested in matching the left breast however this breast is ptotic and larger. I indicated its more difficult to reconstruct a breast that looks identical to that side. Men'S Locker Room Attendant is at its maximal volume of 390 mL for which it could be As a permanent implant. Discussed with the patient that we could consider reassessment in a month to allow the tissue on the right side to relax. After that time we can review the options which may include leaving the creel operator in place or overexpansion with eventual plans for replacement with a permanent implant. I have reviewed massage of the implant to help soften the pocket. Assessment: Ongoing right breast reconstruction Plan: Pt to RETURN in 1 month FOR RECHECK. They are encouraged to call in the interim with any problems or questions relating to this encounter. [facility] History of Present illness Narrative* Lena Baker - 10/07/2022 2:15 PM EST Nurse Note: Review of Systems Nursing Assessment: Physical Exam General Plastics Review of Systems: Do you have any of the following: Chills, Fatigue, Fever or Night Sweats: no. Ear pain or eye discharge: no. Hearing loss or visual changes: no. Sore throat or chronic cough: no. Shortness of breath: no. Chest pain, swelling, or heart palpitations: no. Abdominal pain: no. Constipation or diarrhea: no. Heartburn or Nausea: no. Rash or skin problems: no. Dizziness or numbness: no. Headaches or Migraines: no. Seizures: no. Joint pain, joint swelling or muscle weakness: no. Bruise or bleed easily: no. Any swollen lymph nodes: no. Have you used any nicotine products in the last 3 months? no. Do you use any cannabis, THC or marijuana containing products? no. Are you currently taking the medication Adipex? no. * Apolinar Henry MD - 10/07/2022 2:15 PM EST Subjective: Berenice Nolasco is an 72 y.o. female who presents for evaluation of continued filling of her tissue creel operator. She states she had pain following the last expansion that lasted for a few days. Allergies Allergen Reactions Penicillins Itching Other reaction(s): Other Sulfa Antibiotics Itching Sulfasalazine Itching Current Outpatient Medications Medication Sig Dispense Refill CALCIUM PO Take by mouth daily. citalopram 20 MG tablet Take 1 tablet by mouth daily. COLLAGEN PO Take by mouth. esomeprazole [address] capsule Take 1 capsule by mouth daily every morning. faMOTIdine 20 MG tablet Take 1 tablet by mouth at bedtime. Flaxseed, Linseed, (Flax Seed Oil) 1000 MG capsule 1 capsule daily. ibuprofen 400 MG tablet Take 1 tablet by mouth every 6 hours as needed for Mild Pain. levothyroxine 50 MCG tablet daily every morning. MELATONIN PO Take by mouth daily. multivitamin tablet Take 1 tablet by mouth daily. simvastatin 20 MG tablet simvastatin 20 mg tablet Take 1 tablet by mouth at bedtime trospium XR 60 MG Cap SR 24HR trospium ER 60 mg capsule,extended release 24 hr take 1 capsule by mouth every morning oxyCODONE-acetaminophen 5-325 MG per tablet Take 1 tablet by mouth every 6 hours as needed for Moderate Pain (Use ONLY as needed for pain) for up to 3 days. 10 tablet 0 No current facility-administered medications for this visit. Past Medical History: Diagnosis Date Depression GERD (gastroesophageal reflux disease) Hyperlipidemia Hypothyroidism Ischemic DURING KNEE SCOPE IN 2017 Malignant neoplasm of female breast ME (myocardial infarction) with knee scope PVD (peripheral vascular disease) Past Surgical History: Procedure Laterality Date RECONSTRUCTION BREAST TISSUE SPECIALIST PHYSICIANS INCLUDING SUBSEQUENT EXPANDERS Right 07/09/2022 Laterality: Right; Surgeon: Apolinar Henry MD; Location: [facility] IMPLANTATION BIOLOGIC IMPLANT FOR SOFT TISSUE REINFORCEMENT ADD-ON PX Right 07/09/2022 RT BREAST RECONSTRUCTION W/ PLACEMENT TISSUE SPECIALIST PHYSICIANS & ADM/ 150 CC FILL MASTECTOMY Right 1992 BLADDER REPAIR HYSTERECTOMY KNEE SURGERY Bilateral 2016 AND HAD ME DURING SURGERY ORAL SURGERY REMOVAL CATARACT (PEM) SHOULDER SURGERY Right SINUS SURGERY TUBAL LIGATION Family History Problem Relation Age of Onset Clotting Disorder Mother PE Social History Socioeconomic History Marital status: Spouse name: Not on file Number of children: Not on file Years of education: Not on file Highest education level: Not on file Occupational History Not on file Tobacco Use Smoking status: Never Smokeless tobacco: Never Vaping Use Vaping Use: Never used Substance and Sexual Activity Alcohol use: Yes Comment: SELDOM Drug use: Never Sexual activity: Not on file Other Topics Concern Not on file Social History Narrative Not on file Social Determinants of Health Financial Resource Strain: Not on file Food Insecurity: Not on file Transportation Needs: Not on file Physical Activity: Not on file Stress: Not on file Social Connections: Not on file Intimate Partner Violence: Not on file Housing Stability: Not on file Review of Systems Pertinent items are noted in HPI. Nurse Note: Review of Systems Nursing Assessment: Physical Exam General Plastics Review of Systems: Do you have any of the following: Chills, Fatigue, Fever or Night Sweats: no. Ear pain or eye discharge: no. Hearing loss or visual changes: no. Sore throat or chronic cough: no. Shortness of breath: no. Chest pain, swelling, or heart palpitations: no. Abdominal pain: no. Constipation or diarrhea: no. Heartburn or Nausea: no. Rash or skin problems: no. Dizziness or numbness: no. Headaches or Migraines: no. Seizures: no. Joint pain, joint swelling or muscle weakness: no. Bruise or bleed easily: no. Any swollen lymph nodes: no. Have you used any nicotine products in the last 3 months? no. Do you use any cannabis, THC or marijuana containing products? no. Are you currently taking the medication Adipex? no. Objective: BP 140/81 Pulse 74 Temp 97.9 F (36.6 C) Ht 1.676 m (5' 6 ) BMI 35.83 kg/m Smoking Status Never I reviewed the options with the patient and her . If we would leave this present implant in place, the maximum fill would be 390 mL. If she decides this is not adequate, we could continue filling. This would require overfilling as well and leaving skin expansion for 3 months before removing the creel operator and placement of the permanent implant. She presently has 330 mL in and we will put 60 mL in for her to assess the size. The pts Tissue Men'S Locker Room Attendant was Filled with 60 cc's of Injectable Saline (unilaterally) after prepping the skin with alcohol. She tolerated the procedure well. She is to follow up in 2 Weeks for evaluation and possible further expansion. Assessment: Ongoing right breast reconstruction with continued filling of her tissue creel operator Plan: Pt to RETURN in 2 weeks FOR RECHECK. They are encouraged to call in the interim with any problems or questions relating to this encounter. [facility] History of Present illness Narrative* Ameena Jackson LPN - 09/23/2022 2:30 PM EST General Plastics Review of Systems: Do you have any of the following: Chills, Fatigue, Fever or Night Sweats: no. Ear pain or eye discharge: no. Hearing loss or visual changes: no. Sore throat or chronic cough: no. Shortness of breath: no. Chest pain, swelling, or heart palpitations: no. Abdominal pain: no. Constipation or diarrhea: no. Heartburn or Nausea: no. Rash or skin problems: no. Dizziness or numbness: no. Headaches or Migraines: no. Seizures: no. Joint pain, joint swelling or muscle weakness: no. Bruise or bleed easily: no. Any swollen lymph nodes: no. Have you used any nicotine products in the last 3 months? no. Do you use any cannabis, THC or marijuana containing products? no. Are you currently taking the medication Adipex? no. * Apolinar Henry MD - 09/23/2022 2:30 PM EST Subjective: Berenice Nolasco is an 72 y.o. female who presents today for a breast fill.She denies any more pain fromher fall on 09/16/22. She was diagnosed with venous incompetence. Allergies Allergen Reactions Penicillins Itching Other reaction(s): Other Sulfa Antibiotics Itching Sulfasalazine Itching Current Outpatient Medications Medication Sig Dispense Refill CALCIUM PO Take by mouth daily. citalopram 20 MG tablet Take 1 tablet by mouth daily. COLLAGEN PO Take by mouth. esomeprazole [address] capsule Take 1 capsule by mouth daily every morning. faMOTIdine 20 MG tablet Take 1 tablet by mouth at bedtime. Flaxseed, Linseed, (Flax Seed Oil) 1000 MG capsule 1 capsule daily. ibuprofen 400 MG tablet Take 1 tablet by mouth every 6 hours as needed for Mild Pain. levothyroxine 50 MCG tablet daily every morning. MELATONIN PO Take by mouth daily. multivitamin tablet Take 1 tablet by mouth daily. simvastatin 20 MG tablet simvastatin 20 mg tablet Take 1 tablet by mouth at bedtime trospium XR 60 MG Cap SR 24HR trospium ER 60 mg capsule,extended release 24 hr take 1 capsule by mouth every morning oxyCODONE-acetaminophen 5-325 MG per tablet Take 1 tablet by mouth every 6 hours as needed for Moderate Pain (Use ONLY as needed for pain) for up to 3 days. 10 tablet 0 No current facility-administered medications for this visit. Past Medical History: Diagnosis Date Depression GERD (gastroesophageal reflux disease) Hyperlipidemia Hypothyroidism Ischemic DURING KNEE SCOPE IN 2017 Malignant neoplasm of female breast ME (myocardial infarction) with knee scope PVD (peripheral vascular disease) Past Surgical History: Procedure Laterality Date RECONSTRUCTION BREAST TISSUE SPECIALIST PHYSICIANS INCLUDING SUBSEQUENT EXPANDERS Right 07/09/2022 Laterality: Right; Surgeon: Apolinar Henry MD; Location: [facility] IMPLANTATION BIOLOGIC IMPLANT FOR SOFT TISSUE REINFORCEMENT ADD-ON PX Right 07/09/2022 RT BREAST RECONSTRUCTION W/ PLACEMENT TISSUE SPECIALIST PHYSICIANS & ADM/ 150 CC FILL MASTECTOMY Right 1992 BLADDER REPAIR HYSTERECTOMY KNEE SURGERY Bilateral 2016 AND HAD ME DURING SURGERY ORAL SURGERY REMOVAL CATARACT (PEM) SHOULDER SURGERY Right SINUS SURGERY TUBAL LIGATION Family History Problem Relation Age of Onset Clotting Disorder Mother PE Social History Socioeconomic History Marital status: Spouse name: Not on file Number of children: Not on file Years of education: Not on file Highest education level: Not on file Occupational History Not on file Tobacco Use Smoking status: Never Smokeless tobacco: Never Vaping Use Vaping Use: Never used Substance and Sexual Activity Alcohol use: Yes Comment: SELDOM Drug use: Never Sexual activity: Not on file Other Topics Concern Not on file Social History Narrative Not on file Social Determinants of Health Financial Resource Strain: Not on file Food Insecurity: Not on file Transportation Needs: Not on file Physical Activity: Not on file Stress: Not on file Social Connections: Not on file Intimate Partner Violence: Not on file Housing Stability: Not on file Review of Systems Pertinent items are noted in HPI. General Plastics Review of Systems: Do you have any of the following: Chills, Fatigue, Fever or Night Sweats: no. Ear pain or eye discharge: no. Hearing loss or visual changes: no. Sore throat or chronic cough: no. Shortness of breath: no. Chest pain, swelling, or heart palpitations: no. Abdominal pain: no. Constipation or diarrhea: no. Heartburn or Nausea: no. Rash or skin problems: no. Dizziness or numbness: no. Headaches or Migraines: no. Seizures: no. Joint pain, joint swelling or muscle weakness: no. Bruise or bleed easily: no. Any swollen lymph nodes: no. Have you used any nicotine products in the last 3 months? no. Do you use any cannabis, THC or marijuana containing products? no. Are you currently taking the medication Adipex? no. Objective: BP (!) 152/97 Pulse 82 Temp 97.3 F (36.3 C) (Temporal) Ht 1.676 m (5' 6 ) Wt 100.7 kg (222 lb) BMI 35.83 kg/m Smoking Status Never Patient's pain is improved on the right side. There is no evidence of infection. There is a slight erythematous cast of this side which is nontender. 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 She tolerated the procedure well. She is to follow up in 2 Weeks for evaluation and further expansion. Assessment: Ongoing right breast reconstruction Plan: Pt to RETURN in 2 FOR RECHECK. They are encouraged to call in the interim with any problems or questions relating to this encounter. [facility] History of Present illness Narrative* Ameena Jackson LPN - 08/12/2022 3:00 PM EST General Plastics Review of Systems: Do you have any of the following: Chills, Fatigue, Fever or Night Sweats: no. Ear pain or eye discharge: no. Hearing loss or visual changes: no. Sore throat or chronic cough: no. Shortness of breath: no. Chest pain, swelling, or heart palpitations: no. Abdominal pain: no. Constipation or diarrhea: no. Heartburn or Nausea: no. Rash or skin problems: no. Dizziness or numbness: no. Headaches or Migraines: no. Seizures: no. Joint pain, joint swelling or muscle weakness: no. Bruise or bleed easily: no. Any swollen lymph nodes: no. Have you used any nicotine products in the last 3 months? no. Do you use any cannabis, THC or marijuana containing products? no. Are you currently taking the medication Adipex? no. * Apolinar Henry MD - 08/12/2022 3:00 PM EST Subjective: Berenice Nolasco is an 72 y.o. female who presents for evaluation of Right breast reconstruction on 07/09/22. She denies any pain but states there is some discoloration under the breast. Allergies Allergen Reactions Penicillins Itching Other reaction(s): Other Sulfa Antibiotics Itching Sulfasalazine Itching Current Outpatient Medications Medication Sig Dispense Refill CALCIUM PO Take by mouth daily. cephALEXin 500 MG capsule Take 1 capsule by mouth 2 times daily for 7 days. 14 capsule 0 citalopram 20 MG tablet Take 20 mg by mouth daily. COLLAGEN PO Take by mouth. esomeprazole [address] capsule Take 40 mg by mouth daily every morning. faMOTIdine 20 MG tablet Take 20 mg by mouth at bedtime. Flaxseed, Linseed, (Flax Seed Oil) 1000 MG capsule 1,000 mg daily. ibuprofen 400 MG tablet Take 400 mg by mouth every 6 hours as needed for Mild Pain. levothyroxine 50 MCG tablet daily every morning. MELATONIN PO Take by mouth daily. multivitamin tablet Take 1 tablet by mouth daily. simvastatin 20 MG tablet simvastatin 20 mg tablet Take 1 tablet by mouth at bedtime trospium XR 60 MG Cap SR 24HR trospium ER 60 mg capsule,extended release 24 hr take 1 capsule by mouth every morning oxyCODONE-acetaminophen 5-325 MG per tablet Take 1 tablet by mouth every 6 hours as needed for Moderate Pain (Use ONLY as needed for pain) for up to 3 days. 10 tablet 0 No current facility-administered medications for this visit. Past Medical History: Diagnosis Date Depression GERD (gastroesophageal reflux disease) Hyperlipidemia Hypothyroidism Ischemic DURING KNEE SCOPE IN 2017 Malignant neoplasm of female breast ME (myocardial infarction) with knee scope Past Surgical History: Procedure Laterality Date RECONSTRUCTION BREAST TISSUE SPECIALIST PHYSICIANS INCLUDING SUBSEQUENT EXPANDERS Right 07/09/2022 Laterality: Right; Surgeon: Apolinar Henry MD; Location: [facility] IMPLANTATION BIOLOGIC IMPLANT FOR SOFT TISSUE REINFORCEMENT ADD-ON PX Right 07/09/2022 RT BREAST RECONSTRUCTION W/ PLACEMENT TISSUE SPECIALIST PHYSICIANS & ADM/ 150 CC FILL MASTECTOMY Right 1993 BLADDER REPAIR HYSTERECTOMY KNEE SURGERY Bilateral 2016 AND HAD ME DURING SURGERY ORAL SURGERY REMOVAL CATARACT (PEM) SHOULDER SURGERY Right SINUS SURGERY TUBAL LIGATION Family History Problem Relation Age of Onset Clotting Disorder Mother PE Social History Socioeconomic History Marital status: Spouse name: Not on file Number of children: Not on file Years of education: Not on file Highest education level: Not on file Occupational History Not on file Tobacco Use Smoking status: Never Smokeless tobacco: Never Vaping Use Vaping Use: Never used Substance and Sexual Activity Alcohol use: Yes Comment: SELDOM Drug use: Never Sexual activity: Not on file Other Topics Concern Not on file Social History Narrative Not on file Social Determinants of Health Financial Resource Strain: Not on file Food Insecurity: Not on file Transportation Needs: Not on file Physical Activity: Not on file Stress: Not on file Social Connections: Not on file Intimate Partner Violence: Not on file Housing Stability: Not on file Review of Systems Pertinent items are noted in HPI. General Plastics Review of Systems: Do you have any of the following: Chills, Fatigue, Fever or Night Sweats: no. Ear pain or eye discharge: no. Hearing loss or visual changes: no. Sore throat or chronic cough: no. Shortness of breath: no. Chest pain, swelling, or heart palpitations: no. Abdominal pain: no. Constipation or diarrhea: no. Heartburn or Nausea: no. Rash or skin problems: no. Dizziness or numbness: no. Headaches or Migraines: no. Seizures: no. Joint pain, joint swelling or muscle weakness: no. Bruise or bleed easily: no. Any swollen lymph nodes: no. Have you used any nicotine products in the last 3 months? no. Do you use any cannabis, THC or marijuana containing products? no. Are you currently taking the medication Adipex? no. Objective: Temp 96.7 F (35.9 C) (Temporal) Ht 1.676 m (5' 6 ) Wt 100.7 kg (222 lb) BMI 35.83 kg/m Smoking Status Never The right breast is still firm but is softer than it was at the last visit. The incisions well approximated. There is no discoloration. The pts Tissue Men'S Locker Room Attendant was Filled with 35 cc's of Injectable Saline (bilaterally/unilaterally) after prepping the skin with alcohol. She tolerated the procedure well. She is to follow up in 2 Weeks for evaluation and further expansion. Assessment: Acquired absence right breast. 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 They are encouraged to call in the interim with any problems or questions relating to this encounter. [facility] History of Present illness Narrative* Ameena Jackson LPN - 08/05/2022 2:15 PM EST General Plastics Review of Systems: Do you have any of the following: Chills, Fatigue, Fever or Night Sweats: no. Ear pain or eye discharge: no. Hearing loss or visual changes: no. Sore throat or chronic cough: no. Shortness of breath: no. Chest pain, swelling, or heart palpitations: no. Abdominal pain: no. Constipation or diarrhea: no. Heartburn or Nausea: no. Rash or skin problems: no. Dizziness or numbness: no. Headaches or Migraines: no. Seizures: no. Joint pain, joint swelling or muscle weakness: no. Bruise or bleed easily: no. Any swollen lymph nodes: no. Have you used any nicotine products in the last 3 months? no. Do you use any cannabis, THC or marijuana containing products? no. Are you currently taking the medication Adipex? no. * Apolinar Henry MD - 08/05/2022 2:15 PM EST Subjective: Berenice Nolasco is an 72 y.o. female who presents for evaluation of Right breast reconstruction on 07/09/22. She complains of occasional discomfort 2/10 on pain scale. Allergies Allergen Reactions Penicillins Itching Other reaction(s): Other Sulfa Antibiotics Itching Sulfasalazine Itching Current Outpatient Medications Medication Sig Dispense Refill CALCIUM PO Take by mouth daily. citalopram 20 MG tablet Take 20 mg by mouth daily. COLLAGEN PO Take by mouth. esomeprazole [address] capsule Take 40 mg by mouth daily every morning. faMOTIdine 20 MG tablet Take 20 mg by mouth at bedtime. Flaxseed, Linseed, (Flax Seed Oil) 1000 MG capsule 1,000 mg daily. ibuprofen 400 MG tablet Take 400 mg by mouth every 6 hours as needed for Mild Pain. levothyroxine 50 MCG tablet daily every morning. MELATONIN PO Take by mouth daily. multivitamin tablet Take 1 tablet by mouth daily. simvastatin 20 MG tablet simvastatin 20 mg tablet Take 1 tablet by mouth at bedtime trospium XR 60 MG Cap SR 24HR trospium ER 60 mg capsule,extended release 24 hr take 1 capsule by mouth every morning oxyCODONE-acetaminophen 5-325 MG per tablet Take 1 tablet by mouth every 6 hours as needed for Moderate Pain (Use ONLY as needed for pain) for up to 3 days. 10 tablet 0 No current facility-administered medications for this visit. Past Medical History: Diagnosis Date Depression GERD (gastroesophageal reflux disease) Hyperlipidemia Hypothyroidism Ischemic DURING KNEE SCOPE IN 2017 Malignant neoplasm of female breast ME (myocardial infarction) with knee scope Past Surgical History: Procedure Laterality Date RECONSTRUCTION BREAST TISSUE SPECIALIST PHYSICIANS INCLUDING SUBSEQUENT EXPANDERS Right 07/09/2022 Laterality: Right; Surgeon: Apolinar Henry MD; Location: [facility] OR IMPLANTATION BIOLOGIC IMPLANT FOR SOFT TISSUE REINFORCEMENT ADD-ON PX Right 07/09/2022 RT BREAST RECONSTRUCTION W/ PLACEMENT TISSUE SPECIALIST PHYSICIANS & ADM/ 150 CC FILL MASTECTOMY Right 1993 BLADDER REPAIR HYSTERECTOMY KNEE SURGERY Bilateral 2017 AND HAD ME DURING SURGERY ORAL SURGERY REMOVAL CATARACT (PEM) SHOULDER SURGERY Right SINUS SURGERY TUBAL LIGATION Family History Problem Relation Age of Onset Clotting Disorder Mother PE Social History Socioeconomic History Marital status: Spouse name: Not on file Number of children: Not on file Years of education: Not on file Highest education level: Not on file Occupational History Not on file Tobacco Use Smoking status: Never Smokeless tobacco: Never Vaping Use Vaping Use: Never used Substance and Sexual Activity Alcohol use: Yes Comment: SELDOM Drug use: Never Sexual activity: Not on file Other Topics Concern Not on file Social History Narrative Not on file Social Determinants of Health Financial Resource Strain: Not on file Food Insecurity: Not on file Transportation Needs: Not on file Physical Activity: Not on file Stress: Not on file Social Connections: Not on file Intimate Partner Violence: Not on file Housing Stability: Not on file Review of Systems Pertinent items are noted in HPI. General Plastics Review of Systems: Do you have any of the following: Chills, Fatigue, Fever or Night Sweats: no. Ear pain or eye discharge: no. Hearing loss or visual changes: no. Sore throat or chronic cough: no. Shortness of breath: no. Chest pain, swelling, or heart palpitations: no. Abdominal pain: no. Constipation or diarrhea: no. Heartburn or Nausea: no. Rash or skin problems: no. Dizziness or numbness: no. Headaches or Migraines: no. Seizures: no. Joint pain, joint swelling or muscle weakness: no. Bruise or bleed easily: no. Any swollen lymph nodes: no. Have you used any nicotine products in the last 3 months? no. Do you use any cannabis, THC or marijuana containing products? no. Are you currently taking the medication Adipex? no. Objective: BP 156/90 Pulse 75 Temp 97.2 F (36.2 C) (Temporal) Ht 1.676 m (5' 6 ) Wt 100.7 kg (222 lb) BMI 35.83 kg/m Smoking Status Never The patient has some noted firmness medially on the right reconstructed breast. I'm unsure if this represents a fluid collection or hematoma. Is also some slight pinkness to the skin. Incision is well approximated. There is no drainage. The inframammary sutures are intact. The port is palpable. She is cautioned about activity and reaching or stretching with the right arm. I will give her a prescription for an antibiotic and see her back in a week Assessment: Status post right breast reconstruction Plan: Pt to RETURN in 1 week FOR RECHECK. They are encouraged to call in the interim with any problems or questions relating to this encounter. [facility] History of Present illness Narrative* Ameena Jackson LPN - 07/22/2022 1:30 PM EST General Plastics Review of Systems: Do you have any of the following: Chills, Fatigue, Fever or Night Sweats: no. Ear pain or eye discharge: no. Hearing loss or visual changes: no. Sore throat or chronic cough: no. Shortness of breath: no. Chest pain, swelling, or heart palpitations: no. Abdominal pain: no. Constipation or diarrhea: yes. Heartburn or Nausea: yes. Rash or skin problems: no. Dizziness or numbness: yes. Headaches or Migraines: no. Seizures: no. Joint pain, joint swelling or muscle weakness: no. Bruise or bleed easily: no. Any swollen lymph nodes: no. Have you used any nicotine products in the last 3 months? no. Do you use any cannabis, THC or marijuana containing products? no. Are you currently taking the medication Adipex? no. * Apolinar Henry MD - 07/22/2022 1:30 PM EST Subjective: Berenice Nolasco is an 72 y.o. female who presents for evaluation of Right breast reconstruction on 07/09/22. She complains of occasional aching to the right side of the breast, 4/10 on pain scale. She continues sleeping in a recliner and wearing her surgical bra at all times. Berenice continues taking Keflex twice a day. Allergies Allergen Reactions Penicillins Itching Other reaction(s): Other Sulfa Antibiotics Itching Sulfasalazine Itching Current Outpatient Medications Medication Sig Dispense Refill CALCIUM PO Take by mouth daily. cephALEXin 500 MG capsule Take 1 capsule by mouth 2 times daily for 7 days. 14 capsule 0 citalopram 20 MG tablet Take 20 mg by mouth daily. COLLAGEN PO Take by mouth. esomeprazole [address] capsule Take 40 mg by mouth daily every morning. faMOTIdine 20 MG tablet Take 20 mg by mouth at bedtime. Flaxseed, Linseed, (Flax Seed Oil) 1000 MG capsule 1,000 mg daily. ibuprofen 400 MG tablet Take 400 mg by mouth every 6 hours as needed for Mild Pain. levothyroxine 50 MCG tablet daily every morning. MELATONIN PO Take by mouth daily. multivitamin tablet Take 1 tablet by mouth daily. simvastatin 20 MG tablet simvastatin 20 mg tablet Take 1 tablet by mouth at bedtime trospium XR 60 MG Cap SR 24HR trospium ER 60 mg capsule,extended release 24 hr take 1 capsule by mouth every morning oxyCODONE-acetaminophen 5-325 MG per tablet Take 1 tablet by mouth every 6 hours as needed for Moderate Pain (Use ONLY as needed for pain) for up to 3 days. 10 tablet 0 No current facility-administered medications for this visit. Past Medical History: Diagnosis Date Depression GERD (gastroesophageal reflux disease) Hyperlipidemia Hypothyroidism Ischemic DURING KNEE SCOPE IN 2017 Malignant neoplasm of female breast ME (myocardial infarction) with knee scope Past Surgical History: Procedure Laterality Date RECONSTRUCTION BREAST TISSUE SPECIALIST PHYSICIANS INCLUDING SUBSEQUENT EXPANDERS Right 07/09/2022 Laterality: Right; Surgeon: Apolinar Henry MD; Location: [facility] OR IMPLANTATION BIOLOGIC IMPLANT FOR SOFT TISSUE REINFORCEMENT ADD-ON PX Right 07/09/2022 RT BREAST RECONSTRUCTION W/ PLACEMENT TISSUE SPECIALIST PHYSICIANS & ADM/ 150 CC FILL MASTECTOMY Right 1993 BLADDER REPAIR HYSTERECTOMY KNEE SURGERY Bilateral 2017 AND HAD ME DURING SURGERY ORAL SURGERY REMOVAL CATARACT (PEM) SHOULDER SURGERY Right SINUS SURGERY TUBAL LIGATION Family History Problem Relation Age of Onset Clotting Disorder Mother PE Social History Socioeconomic History Marital status: Spouse name: Not on file Number of children: Not on file Years of education: Not on file Highest education level: Not on file Occupational History Not on file Tobacco Use Smoking status: Never Smokeless tobacco: Never Vaping Use Vaping Use: Never used Substance and Sexual Activity Alcohol use: Yes Comment: SELDOM Drug use: Never Sexual activity: Not on file Other Topics Concern Not on file Social History Narrative Not on file Social Determinants of Health Financial Resource Strain: Not on file Food Insecurity: Not on file Transportation Needs: Not on file Physical Activity: Not on file Stress: Not on file Social Connections: Not on file Intimate Partner Violence: Not on file Housing Stability: Not on file Review of Systems Pertinent items are noted in HPI. General Plastics Review of Systems: Do you have any of the following: Chills, Fatigue, Fever or Night Sweats: no. Ear pain or eye discharge: no. Hearing loss or visual changes: no. Sore throat or chronic cough: no. Shortness of breath: no. Chest pain, swelling, or heart palpitations: no. Abdominal pain: no. Constipation or diarrhea: yes. Heartburn or Nausea: yes. Rash or skin problems: no. Dizziness or numbness: yes. Headaches or Migraines: no. Seizures: no. Joint pain, joint swelling or muscle weakness: no. Bruise or bleed easily: no. Any swollen lymph nodes: no. Have you used any nicotine products in the last 3 months? no. Do you use any cannabis, THC or marijuana containing products? no. Are you currently taking the medication Adipex? no. Objective: BP 133/80 Pulse 69 Temp 97.8 F (36.6 C) (Temporal) Ht 1.676 m (5' 6 ) Wt 100.7 kg (222 lb) BMI 35.83 kg/m Smoking Status Never Right breast incision is well approximated. There is no evidence of infection. I removed the dressing and changed it. She brought a front fastening sports bra and we switched her into this with dry gauze over the incision. Port is still palpable. She can begin to shower and drive Assessment: Status post right breast reconstruction with placement of tissue creel operator Plan: Pt to RETURN in 2 weeks FOR RECHECK. They are encouraged to call in the interim with any problems or questions relating to this encounter. [facility] History of Present illness Narrative* Ameena Jackson LPN - 07/15/2022 1:30 PM EDT General Plastics Review of Systems: Do you have any of the following: Chills, Fatigue, Fever or Night Sweats: no. Ear pain or eye discharge: no. Hearing loss or visual changes: no. Sore throat or chronic cough: no. Shortness of breath: no. Chest pain, swelling, or heart palpitations: no. Abdominal pain: no. Constipation or diarrhea: no. Heartburn or Nausea: no. Rash or skin problems: yes Dizziness or numbness: no. Headaches or Migraines: no. Seizures: no. Joint pain, joint swelling or muscle weakness: no. Bruise or bleed easily: no. Any swollen lymph nodes: no. Have you used any nicotine products in the last 3 months? no. Do you use any cannabis, THC or marijuana containing products? no. Are you currently taking the medication Adipex? no. * Apolinar Henry MD - 07/15/2022 1:30 PM EDT Subjective: Berenice Nolasco is an 72 y.o. female who presents for evaluation of Right breast reconstruction with creel operator on 07/09/22. She complains of soreness, 7/10 on pain scale, and states that her dressing fellout a few days ago. She continues wearing her surgical bra but does not like the fit. Allergies Allergen Reactions Penicillins Itching Other reaction(s): Other Sulfa Antibiotics Itching Sulfasalazine Itching Current Outpatient Medications Medication Sig Dispense Refill CALCIUM PO Take by mouth daily. citalopram 20 MG tablet Take 20 mg by mouth daily. COLLAGEN PO Take by mouth. esomeprazole [address] capsule Take 40 mg by mouth daily every morning. faMOTIdine 20 MG tablet Take 20 mg by mouth at bedtime. Flaxseed, Linseed, (Flax Seed Oil) 1000 MG capsule 1,000 mg daily. ibuprofen 400 MG tablet Take 400 mg by mouth every 6 hours as needed for Mild Pain. levothyroxine 50 MCG tablet daily every morning. MELATONIN PO Take by mouth daily. multivitamin tablet Take 1 tablet by mouth daily. sertraline 50 MG tablet Take by mouth daily. simvastatin 20 MG tablet simvastatin 20 mg tablet Take 1 tablet by mouth at bedtime trospium XR 60 MG Cap SR 24HR trospium ER 60 mg capsule,extended release 24 hr take 1 capsule by mouth every morning cephALEXin 500 MG capsule Take 1 capsule by mouth 2 times daily for 7 days. 14 capsule 0 oxyCODONE-acetaminophen 5-325 MG per tablet Take 1 tablet by mouth every 6 hours as needed for Moderate Pain (Use ONLY as needed for pain) for up to 3 days. 10 tablet 0 No current facility-administered medications for this visit. Past Medical History: Diagnosis Date Depression GERD (gastroesophageal reflux disease) Hyperlipidemia Hypothyroidism Ischemic DURING KNEE SCOPE IN 2017 Malignant neoplasm of female breast ME (myocardial infarction) with knee scope Past Surgical History: Procedure Laterality Date RECONSTRUCTION BREAST TISSUE SPECIALIST PHYSICIANS INCLUDING SUBSEQUENT EXPANDERS Right 07/09/2022 Laterality: Right; Surgeon: Apolinar Henry MD; Location: [facility] IMPLANTATION BIOLOGIC IMPLANT FOR SOFT TISSUE REINFORCEMENT ADD-ON PX Right 07/09/2022 Laterality: Right; Surgeon: Apolinar Henry MD; Location: [facility] OR MASTECTOMY Right 1992 BLADDER REPAIR HYSTERECTOMY KNEE SURGERY Bilateral 2017 AND HAD ME DURING SURGERY ORAL SURGERY REMOVAL CATARACT (PEM) SHOULDER SURGERY Right SINUS SURGERY TUBAL LIGATION Family History Problem Relation Age of Onset Clotting Disorder Mother PE Social History Socioeconomic History Marital status: Spouse name: Not on file Number of children: Not on file Years of education: Not on file Highest education level: Not on file Occupational History Not on file Tobacco Use Smoking status: Never Smokeless tobacco: Never Vaping Use Vaping Use: Never used Substance and Sexual Activity Alcohol use: Yes Comment: SELDOM Drug use: Never Sexual activity: Not on file Other Topics Concern Not on file Social History Narrative Not on file Social Determinants of Health Financial Resource Strain: Not on file Food Insecurity: Not on file Transportation Needs: Not on file Physical Activity: Not on file Stress: Not on file Social Connections: Not on file Intimate Partner Violence: Not on file Housing Stability: Not on file Review of Systems Pertinent items are noted in HPI. General Plastics Review of Systems: Do you have any of the following: Chills, Fatigue, Fever or Night Sweats: no. Ear pain or eye discharge: no. Hearing loss or visual changes: no. Sore throat or chronic cough: no. Shortness of breath: no. Chest pain, swelling, or heart palpitations: no. Abdominal pain: no. Constipation or diarrhea: no. Heartburn or Nausea: no. Rash or skin problems: yes Dizziness or numbness: no. Headaches or Migraines: no. Seizures: no. Joint pain, joint swelling or muscle weakness: no. Bruise or bleed easily: no. Any swollen lymph nodes: no. Have you used any nicotine products in the last 3 months? no. Do you use any cannabis, THC or marijuana containing products? no. Are you currently taking the medication Adipex? no. Objective: BP 140/83 Pulse 75 Temp 97.9 F (36.6 C) (Temporal) Ht 1.676 m (5' 6 ) Wt 100.7 kg (222 lb) BMI 35.83 kg/m Smoking Status Never A patient has been putting her hands beneath the dressing to test her brow and I have cautioned herthat she needs to leave the dressing in place undisturbed to help prevent infections. I also reviewed with them the location of the port and the need to prevent the bra band from dislodging port. The incision is well approximated. There is no evidence of infection although there is some slight redness along the incision. I will give her an additional prescription for antibiotic. The port is palpable. Infra-mammary sutures are intact. The dressing was changed and the patient cautioned about leaving the dressing in place undisturbed. Assessment: Status post right breast reconstruction with placement of a tissue creel operator Plan: Pt to RETURN in 1 week FOR RECHECK. They are encouraged to call in the interim with any problems or questions relating to this encounter. [facility] Nurse Surgical operation note* Deanna Jimenez RN - 07/09/2022 5:12 PM EDT Late entry. Discharge instructions reviewed with patient and spouse at 1600. Patient drowsy but listening to instructions. expressed an understanding of instructions. Incentive spirometer teaching completed but patient unable to complete exercises at this time. 1700 Patient completed incentive spirometry exercises. Dressed and ambulated in aguilar and to restroom to void. 1712 Discharged home per wheelchair with Les. Encouraged to use CPAP at home. [facility] Nurse Note* Deanna Jimenez RN - 07/09/2022 5:12 PM EDT Late entry. Discharge instructions reviewed with patient and spouse at 1600. Patient drowsy but listening to instructions. expressed an understanding of instructions. Incentive spirometer teaching completed but patient unable to complete exercises at this time. 1700 Patient completed incentive spirometry exercises. Dressed and ambulated in aguilar and to restroom to void. 1712 Discharged home per wheelchair with Les. Encouraged to use CPAP at home. * Alphonse Craft RN - 07/09/2022 4:17 PM EDT 1515 Discharged from PACU in stable condition at this time. Transported via cart to OPS 11 Cart placed in lowest position. Call light within reach. Pulse ox monitor on pt with alarms set. Report given to Deanna DIAZ. Pt is awake and alert, states has some continued lt hip pain and discomfort, supportbra on and clean and dry, no complaints of rt breast pain, VSS, resp even and unlabored. . * Joanna Flores RN - 07/09/2022 12:24 PM EDT OR room temp 68f Humidity 305 Firescore 2 Prep dry prior to draping. Procedure completed. Dressings applied. Patient transported to PACU by holly segovia RN and Nuno hahn CRNA. Report given to alphonse DIAZ upon arrival. Patient connected to Monitors. documented in this [facility]10-[facility] Nurse Surgical operation note* Alphonse Craft RN - 07/09/2022 4:17 PM EDT 1515 Discharged from PACU in stable condition at this time. Transported via cart to OPS 11 Cart placed in lowest position. Call light within reach. Pulse ox monitor on pt with alarms set. Report given to Deanna DIAZ. Pt is awake and alert, states has some continued lt hip pain and discomfort, supportbra on and clean and dry, no complaints of rt breast pain, VSS, resp even and unlabored. . [facility] Hospital Discharge instructions* Discharge Instructions* Apolinar Henry MD - 07/09/2022 2:45 PM EDT Follow instructions given in the office. Keep your back elevated to reduce swelling and bruising. Leave the dressings intact and dry. Use the incentive spirometer 3-4 x a day to prevent pneumonia. Take the antibiotic prescription as directed. * Attachments The following attachments cannot be sent through Care Everywhere. * Incentive Spirometer: General Info ([place]an) documented in this [facility]10-27-20[facility] Note* Brief Op Note - Apolinar Henry MD - 07/09/2022 2:34 PM EDT POST OPERATIVE/PROCEDURE NOTE Berenice Nolasco ([id number]) SURGEON Surgeon(s) and Role: * Apolinar Henry MD - Primary WIRE BENDER YEYO ANESTHESIOLOGIST POLYMER MATERIALS CONSULTANT: REBEL Ochoa SURGICAL STAFF Lithographic Artist: Marleni Swartz RN; Joanna Flores RN Monitoring Nurse: Linsey Reyes RN Registered Nurse Distribution Systems Superintendent: Cady Vasquez RN Scrub Person: Laisha An LPN Manager Managed Care: [facility] PROCEDURE PERFORMED Right breast reconstruction with placement of tissue creel operator ([id number]) 150cc initial fill PRIMARY CLOSURE Yes ANESTHESIA (type of) General ESTIMATED BLOOD LOSS <50cc ml DRAINS None BLOOD PRODUCTS None FLUIDS Intake/Output Summary (Last 24 hours) at 07/09/2022 1434 Last data filed at 07/09/2022 1324 Gross per 24 hour Intake 1350 ml Output -- Net 1350 ml PRE OPERATIVE DIAGNOSIS Personal history of malignant neoplasm of breast [Z85.3] 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] POST OPERATIVE DIAGNOSIS Post-Op Diagnosis Codes: * Personal history of malignant neoplasm of breast [Z85.3] * 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] FINDINGS No significant abnormalities CONDITION OF PATIENT stable COMPLICATIONS None GRAFTS AND/OR IMPLANTS See OR Nursing Documentation SPECIMENS No specimen sent * No specimens in log * Apolinar Henry MD July 09, 2022 2:34 PM [facility] Miscellaneous Notes* Brief Op Note - Apolinar Henry MD - 07/09/2022 2:34 PM EDT POST OPERATIVE/PROCEDURE NOTE Berenice Nolasco ([id number]) SURGEON Surgeon(s) and Role: * Apolinar Henry MD - Primary WIRE BENDER YEYO ANESTHESIOLOGIST POLYMER MATERIALS CONSULTANT: REBEL Ochoa SURGICAL STAFF Lithographic Artist: Marleni Swartz RN; Joanna Flores RN Monitoring Nurse: Linsey Reyes RN Registered Nurse Distribution Systems Superintendent: Cady Vasquez RN Scrub Person: Laisha An LPN Manager Managed Care: [facility] PROCEDURE PERFORMED Right breast reconstruction with placement of tissue creel operator ([id number]) 150cc initial fill PRIMARY CLOSURE Yes ANESTHESIA (type of) General ESTIMATED BLOOD LOSS <50cc ml DRAINS None BLOOD PRODUCTS None FLUIDS Intake/Output Summary (Last 24 hours) at 07/09/2022 1434 Last data filed at 07/09/2022 1324 Gross per 24 hour Intake 1350 ml Output -- Net 1350 ml PRE OPERATIVE DIAGNOSIS Personal history of malignant neoplasm of breast [Z85.3] 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] POST OPERATIVE DIAGNOSIS Post-Op Diagnosis Codes: * Personal history of malignant neoplasm of breast [Z85.3] * 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 Procedure completed. Dressings applied. Patient transported to PACU by holly segovia RN and Nuno hahn CRNA. Report given to alphonse DIAZ upon arrival. Patient connected to Monitors. [facility] History and physical note* Apolinar Henry MD - 07/09/2022 10:58 AM EDT I have examined the patient and reviewed the previous H&P completed on date 06/24/22 and there are no changes. See paper H&P in chart Apolinar Henry MD, 07/09/2022, 10:59 AM. [facility] History and physical note* Apolinar Henry MD - 07/09/2022 10:58 AM EDT I have examined the patient and reviewed the previous H&P completed on date 06/24/22 and there are no changes. See paper H&P in chart Apolinar Henry MD, 07/09/2022, 10:59 AM. documented in this [facility]10-[facility]22 History of Present illness Narrative* Ameena Jackson LPN - 06/30/2022 2:30 PM EDT General Plastics Review of Systems: Do you have any of the following: Chills, Fatigue, Fever or Night Sweats: no. Ear pain or eye discharge: no. Hearing loss or visual changes: no. Sore throat or chronic cough: no. Shortness of breath: no. Chest pain, swelling, or heart palpitations: no. Abdominal pain: no. Constipation or diarrhea: yes. Heartburn or Nausea: yes. Rash or skin problems: no. Dizziness or numbness: no. Headaches or Migraines: no. Seizures: no. Joint pain, joint swelling or muscle weakness: no. Bruise or bleed easily: no. Any swollen lymph nodes: no. Have you used any nicotine products in the last 3 months? no. Do you use any cannabis, THC or marijuana containing products? no. Are you currently taking the medication Adipex? no. * Apolinar Henry MD - 06/30/2022 2:30 PM EDT Subjective: Berenice Nolasco is an 72 y.o. female who presents for evaluation of Right breast reconstruction on 07/09/22. Pre and post op instructions reviewed and signed. Allergies Allergen Reactions Penicillins Itching Other reaction(s): Other Sulfa Antibiotics Itching Sulfasalazine Itching Current Outpatient Medications Medication Sig Dispense Refill aspirin 81 MG Chew Tab chewable tablet At bedtime. CALCIUM PO Take by mouth daily. citalopram 20 MG tablet Take 20 mg by mouth daily. COLLAGEN PO Take by mouth. esomeprazole [address] capsule Take 40 mg by mouth daily every morning. faMOTIdine 20 MG tablet Take 20 mg by mouth at bedtime. Flaxseed, Linseed, (Flax Seed Oil) 1000 MG capsule 1,000 mg daily. ibuprofen 400 MG tablet Take 400 mg by mouth every 6 hours as needed for Mild Pain. levothyroxine 50 MCG tablet daily every morning. MELATONIN PO Take by mouth daily. multivitamin tablet Take 1 tablet by mouth daily. sertraline 50 MG tablet Take by mouth daily. simvastatin 20 MG tablet simvastatin 20 mg tablet Take 1 tablet by mouth at bedtime trospium XR 60 MG Cap SR 24HR trospium ER 60 mg capsule,extended release 24 hr take 1 capsule by mouth every morning cephALEXin 500 MG capsule Take 1 capsule by mouth 2 times daily for 7 days. 14 capsule 0 oxyCODONE-acetaminophen 5-325 MG per tablet Take 1 tablet by mouth every 6 hours as needed for Moderate Pain (Use ONLY as needed for pain) for up to 3 days. 10 tablet 0 No current facility-administered medications for this visit. Past Medical History: Diagnosis Date Depression GERD (gastroesophageal reflux disease) Hyperlipidemia Hypothyroidism Ischemic DURING KNEE SCOPE IN 2017 Malignant neoplasm of female breast ME (myocardial infarction) with knee scope Past Surgical History: Procedure Laterality Date MASTECTOMY Right 1992 BLADDER REPAIR HYSTERECTOMY KNEE SURGERY Bilateral 2017 AND HAD ME DURING SURGERY ORAL SURGERY REMOVAL CATARACT (PEM) SHOULDER SURGERY Right SINUS SURGERY TUBAL LIGATION Family History Problem Relation Age of Onset Clotting Disorder Mother PE Social History Socioeconomic History Marital status: Spouse name: Not on file Number of children: Not on file Years of education: Not on file Highest education level: Not on file Occupational History Not on file Tobacco Use Smoking status: Never Smokeless tobacco: Never Vaping Use Vaping Use: Never used Substance and Sexual Activity Alcohol use: Yes Comment: SELDOM Drug use: Never Sexual activity: Not on file Other Topics Concern Not on file Social History Narrative Not on file Social Determinants of Health Financial Resource Strain: Not on file Food Insecurity: Not on file Transportation Needs: Not on file Physical Activity: Not on file Stress: Not on file Social Connections: Not on file Intimate Partner Violence: Not on file Housing Stability: Not on file Review of Systems Pertinent items are noted in HPI. General Plastics Review of Systems: Do you have any of the following: Chills, Fatigue, Fever or Night Sweats: no. Ear pain or eye discharge: no. Hearing loss or visual changes: no. Sore throat or chronic cough: no. Shortness of breath: no. Chest pain, swelling, or heart palpitations: no. Abdominal pain: no. Constipation or diarrhea: yes. Heartburn or Nausea: yes. Rash or skin problems: no. Dizziness or numbness: no. Headaches or Migraines: no. Seizures: no. Joint pain, joint swelling or muscle weakness: no. Bruise or bleed easily: no. Any swollen lymph nodes: no. Have you used any nicotine products in the last 3 months? no. Do you use any cannabis, THC or marijuana containing products? no. Are you currently taking the medication Adipex? no. Objective: BP (!) 148/97 Pulse 119 Temp 97.7 F (36.5 C) (Temporal) Ht 1.676 m (5' 6 ) Wt 100.7 kg (222lb) BMI 35.83 kg/m Smoking Status Never Patient with acquired absence right breast. The procedure of Right breast reconstruction with tissue creel operator Was thoroughly reviewed with the patient. The reasonable expected outcome was reviewed. The expected Pre-, Intra-, and Post- Operative Course was reviewed. The Pre- and Post-Operative Instructions were reviewed in addition to the medications to avoid before surgery. The patient was given the following scripts (which were also reviewed): Keflex and Percocet Measurements and Sizing were performed as applicable. The Potential Risks and Complications were reviewed as was the Consent for Surgery. The RISKS, BENEFITS, POTENTIAL COMPLICATIONS, and ALTERNATIVES OF TREATMENT were reviewed. The POTENTIAL COMPLICATIONS were reviewed which include (but are not exclusive of) bleeding, infection, pain, numbness, assymmetry, scar tissue, skin necrosis, the need for further surgery, DVT, and even . The patient was given ample opportunity to ask questions. The patient voices understanding. The patient is encouraged to call with any further questions or problems encountered before or after the proposed procedure. Assessment: Patient for right breast reconstruction with placement of tissue creel operator Plan: We will proceed with surgery in the near future and the patient will call with any further questions. I spent 50 minutes total time with the patient. documented in this [facility]10-04-[facility]22 History of Present illness Narrative* Ameena Jackson LPN - 06/16/2022 11:30 AM EDT General Plastics Review of Systems: Do you have any of the following: Chills, Fatigue, Fever or Night Sweats: no. Ear pain or eye discharge: no. Hearing loss or visual changes: no. Sore throat or chronic cough: no. Shortness of breath: no. Chest pain, swelling, or heart palpitations: no. Abdominal pain: no. Constipation or diarrhea: yes. Heartburn or Nausea: yes. Rash or skin problems: no. Dizziness or numbness: no. Headaches or Migraines: no. Seizures: no. Joint pain, joint swelling or muscle weakness: yes. Bruise or bleed easily: no. Any swollen lymph nodes: no. Have you used any nicotine products in the last 3 months? no. Do you use any cannabis, THC or marijuana containing products? no. Are you currently taking the medication Adipex? no. * Apolinar Henry MD - 06/16/2022 11:30 AM EDT Subjective: Berenice Nolasco is an 72 y.o. female who presents for evaluation For planned right breast reconstruction later this month. The patient does not have a history of radiation. Allergies Allergen Reactions Penicillins Itching Other reaction(s): Other Sulfa Antibiotics Itching Sulfasalazine Itching Current Outpatient Medications Medication Sig Dispense Refill albuterol 108 (90 Base) MCG/ACT Aero Soln inhaler aspirin 81 MG Chew Tab chewable tablet At bedtime. Aspirin [address] tablet Take by mouth. citalopram 20 MG tablet Take 20 mg by mouth daily. citalopram 20 MG tablet take 1 and 1/2 tablet by mouth once daily faMOTIdine 20 MG tablet famotidine 20 mg tablet Flaxseed, Linseed, (Flax Seed Oil) 1000 MG capsule 1,000 mg daily. levothyroxine 50 MCG tablet levothyroxine 50 mcg tablet take 1 tablet by mouth once daily sertraline 50 MG tablet Take by mouth. simvastatin 20 MG tablet simvastatin 20 mg tablet Take 1 tablet by mouth at bedtime trospium XR 60 MG Cap SR 24HR trospium ER 60 mg capsule,extended release 24 hr take 1 capsule by mouth every morning No current facility-administered medications for this visit. Past Medical History: Diagnosis Date Malignant neoplasm of female breast Past Surgical History: Procedure Laterality Date MASTECTOMY Right 1993 BLADDER REPAIR HYSTERECTOMY KNEE SURGERY Bilateral ORAL SURGERY History reviewed. No pertinent family history. Social History Socioeconomic History Marital status: Spouse name: Not on file Number of children: Not on file Years of education: Not on file Highest education level: Not on file Occupational History Not on file Tobacco Use Smoking status: Never Smoker Smokeless tobacco: Never Used Substance and Sexual Activity Alcohol use: Not Currently Drug use: Never Sexual activity: Not on file Other Topics Concern Not on file Social History Narrative Not on file Social Determinants of Health Financial Resource Strain: Not on file Food Insecurity: Not on file Transportation Needs: Not on file Physical Activity: Not on file Stress: Not on file Social Connections: Not on file Intimate Partner Violence: Not on file Housing Stability: Not on file Review of Systems Pertinent items are noted in HPI. General Plastics Review of Systems: Do you have any of the following: Chills, Fatigue, Fever or Night Sweats: no. Ear pain or eye discharge: no. Hearing loss or visual changes: no. Sore throat or chronic cough: no. Shortness of breath: no. Chest pain, swelling, or heart palpitations: no. Abdominal pain: no. Constipation or diarrhea: yes. Heartburn or Nausea: yes. Rash or skin problems: no. Dizziness or numbness: no. Headaches or Migraines: no. Seizures: no. Joint pain, joint swelling or muscle weakness: yes. Bruise or bleed easily: no. Any swollen lymph nodes: no. Have you used any nicotine products in the last 3 months? no. Do you use any cannabis, THC or marijuana containing products? no. Are you currently taking the medication Adipex? no. Objective: BP 148/89 Pulse 76 Temp 97.5 F (36.4 C) (Temporal) Ht 1.676 m (5' 6 ) Wt 101.2 kg (223 lb) BMI 35.99 kg/m Smoking Status Never Smoker Patient with absence of right breast. She has a satisfactory covering of skin and fat on the right breast however laterally there is some thinness of the skin flap near a Fold. We discussed direct to implant versus tissue creel operator and decided on tissue creel operator to allow flexibility in choosing her size. She understands in a second surgery would be required to either remove the port or replace the implant. I measured her for an implant today which will be a tissue creel operator--smooth round spectrum [id number] an approximately 12 cm diameter The procedure of Right breast reconstruction with tissue creel operator was thoroughly reviewed with the patient. The patient's goals and expectation for the surgery were reviewed, as well as the reasonable expected outcome. The expected pre-, intra-, and post- operative course was reviewed. The pt was given copies of Pre- and Post-Operative Instructions to review as well as a Consent specific to their procedure if available. The need for medical clearance was also reviewed with them. Assessment: Patient for ongoing preparation regarding right breast reconstruction Plan: I will see her back in a few weeks for further preoperative preparation documented in this [facility]09-07-2022 History of Present illness Narrative* Ameena Jackson LPN - 05/20/2022 2:00 PM EDT General Plastics Review of Systems: Do you have any of the following: Chills, Fatigue, Fever or Night Sweats: no. Ear pain or eye discharge: no. Hearing loss or visual changes: no. Sore throat or chronic cough: no. Shortness of breath: no. Chest pain, swelling, or heart palpitations: no. Abdominal pain: no. Constipation or diarrhea: yes. Heartburn or Nausea: yes. Rash or skin problems: no. Dizziness or numbness: no. Headaches or Migraines: no. Seizures: no. Joint pain, joint swelling or muscle weakness: yes. Bruise or bleed easily: no. Any swollen lymph nodes: no. Have you used any nicotine products in the last 3 months? no. Do you use any cannabis, THC or marijuana containing products? no. Are you currently taking the medication Adipex? no. * Apolinar Henry MD - 05/20/2022 2:00 PM EDT Subjective: Berenice Nolasco is an 72 y.o. female who presents for evaluation of today to discuss reconstruction to her right breast. She had a mastectomy on 01/20/93. She is tired of her prosthesis being uncomfortable.. Allergies Allergen Reactions Penicillins Other reaction(s): Other Sulfa Antibiotics Sulfasalazine Current Outpatient Medications Medication Sig Dispense Refill citalopram 20 MG tablet Take 20 mg by mouth daily. Flaxseed, Linseed, (Flax Seed Oil) 1000 MG capsule 1,000 mg daily. albuterol 108 (90 Base) MCG/ACT Aero Soln inhaler albuterol sulfate HFA 90 mcg/actuation aerosol inhaler INHALE 2 PUFFS BY MOUTH EVERY 6 HOURS IF NEEDED (Patient not taking: Reported on 05/20/2022) aspirin 81 MG Chew Tab chewable tablet At bedtime. Aspirin [address] tablet Take by mouth. citalopram 20 MG tablet take 1 and 1/2 tablet by mouth once daily faMOTIdine 20 MG tablet famotidine 20 mg tablet levothyroxine 50 MCG tablet levothyroxine 50 mcg tablet take 1 tablet by mouth once daily sertraline 50 MG tablet Take by mouth. simvastatin 20 MG tablet simvastatin 20 mg tablet Take 1 tablet by mouth at bedtime trospium XR 60 MG Cap SR 24HR trospium ER 60 mg capsule,extended release 24 hr take 1 capsule by mouth every morning No current facility-administered medications for this visit. Past Medical History: Diagnosis Date Malignant neoplasm of female breast Past Surgical History: Procedure Laterality Date MASTECTOMY Right 1992 BLADDER REPAIR HYSTERECTOMY KNEE SURGERY Bilateral ORAL SURGERY History reviewed. No pertinent family history. Social History Socioeconomic History Marital status: Spouse name: Not on file Number of children: Not on file Years of education: Not on file Highest education level: Not on file Occupational History Not on file Tobacco Use Smoking status: Never Smoker Smokeless tobacco: Never Used Substance and Sexual Activity Alcohol use: Not Currently Drug use: Never Sexual activity: Not on file Other Topics Concern Not on file Social History Narrative Not on file Social Determinants of Health Financial Resource Strain: Not on file Food Insecurity: Not on file Transportation Needs: Not on file Physical Activity: Not on file Stress: Not on file Social Connections: Not on file Intimate Partner Violence: Not on file Housing Stability: Not on file Review of Systems Pertinent items are noted in HPI. General Plastics Review of Systems: Do you have any of the following: Chills, Fatigue, Fever or Night Sweats: no. Ear pain or eye discharge: no. Hearing loss or visual changes: no. Sore throat or chronic cough: no. Shortness of breath: no. Chest pain, swelling, or heart palpitations: no. Abdominal pain: no. Constipation or diarrhea: yes. Heartburn or Nausea: yes. Rash or skin problems: no. Dizziness or numbness: no. Headaches or Migraines: no. Seizures: no. Joint pain, joint swelling or muscle weakness: yes. Bruise or bleed easily: no. Any swollen lymph nodes: no. Have you used any nicotine products in the last 3 months? no. Do you use any cannabis, THC or marijuana containing products? no. Are you currently taking the medication Adipex? no. Objective: BP (!) 150/95 Pulse 80 Temp 98 F (36.7 C) (Temporal) Wt 100.7 kg (222 lb) Smoking Status Never Smoker Patient with a well-healed scar on the right side status post mastectomy 30 years ago. The pectoralis major muscle is intact and there is not evidence of winging of her scapula. The left side has slight ptosis. There is no palpable masses or axillary adenopathy on either side. Assessment and Plan: Pertinent reconstruction options were presented as outlined below. A detailed conversation was had regarding the patient s options for breast reconstruction. Five main points, which are explained to all breast reconstruction patients, were discussed. 1) Breast reconstruction is an optional process. In addition, breast reconstruction can be performed in an immediate and delayed fashion. Even if a patient does not opt for reconstruction now, it canperformed at a later time. 2) Breast reconstruction is a multi-stage process which involves multiple surgeries spaced several months apart. The entire process can take over one year. The patient can stop within this process and/or resume it again at any time. 3) The major goal of breast reconstruction is to have the patient look normal in clothing. When naked, there will always be scars and other stigmata of the breast reconstruction process. 4) Asymmetries are often present during the reconstruction process. Several operations may be needed, including surgery to the non-cancerous breast, to achieve satisfactory results. 5) No matter the reconstructive method, there are ways that the reconstruction can fail and a secondary reconstructive plan would need to be created. Next, a general discussion regarding all available methods of breast reconstruction were discussed.The types of reconstructions described included: 1) Tissue creel operator and implant based reconstruction, both single and multi-stage approaches. 2) Autologous only reconstructions which would require incisions and surgery at a second site on her body. This would require tissue hospitalization and a longer surgery 3) Combination procedures, particularly latissismus dorsi flaps combined with either expanders or implants. For each of the reconstruction methods mentioned above, the risks, benefits, alternatives, scarring, and recovery time were discussed in great detail. Specific risks detailed included bleeding, infection, hematoma, seroma, scarring, pain, wound healing complications, flap loss, fat necrosis, capsular contracture, need for implant removal, donor site complications, bulge, hernia, umbilical necrosis, need for urgent reoperation, and need for dressing changes were discussed. 60 minutes were spent face to face with the patient, of which over half were counseling and coordination of care. she appears to be interested in doing tissue expansion. 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 FINDINGS: BONES:Mild narrowing of the joint spaces, left greater than right. Small degenerative osteophytes along the articular margins of the femoral heads bilaterally. SOFT TISSUES:No visible soft tissue swelling. EFFUSION:None visible. OTHER: Negative. IMPRESSION: 1. Moderate degenerative changes of the hip joints, left greater than right. Electronically authenticated by: TY BOUDREAUX Date: 2022-01-13 17:45[facility] Personal history of malignant neoplasm of breast- Primary 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 absence of breast and nipple [facility] Diagnosis Personal history of malignant neoplasm of breast- Primary 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 absence of breast and nipple 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 absence of breast and nipple [facility] Diagnosis S/P breast reconstruction- Primary Breast replaced by other means 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 absence of breast and nipple Personal history of malignant neoplasm of breast 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 absence of breast and nipple [facility] Diagnosis Acquired absence of right breast- Primary Acquired absence of right breast Personal history of malignant neoplasm of breast Personal history of malignant neoplasm of [facility] Acquired absence of right breast and nipple- Primary Acquired absence of breast and nipple Personal history of malignant neoplasm of breast S/P breast reconstruction Breast replaced by other means [facility] Acquired absence of right breast and nipple- Primary Acquired absence of breast and nipple S/P breast reconstruction Breast replaced by other means [facility]* Diagnosis S/P breast reconstruction- Primary Breast replaced by other means [facility]* Diagnosis S/P breast reconstruction- Primary Breast replaced by other means 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 absence of breast and nipple [facility]* Diagnosis Right-sided chest pain [facility]* Diagnosis Acquired absence of right breast and nipple- Primary Acquired absence of breast and nipple S/P breast reconstruction Breast replaced by other means [facility]* Diagnosis Acquired absence of right breast and nipple- Primary Acquired absence of breast and nipple S/P breast reconstruction Breast replaced by other means [facility] noteNo InformationNort ValueFirst Messaging Other Evaluation noteNo assessment information available [facility] Work Phone: Evaluation note* Diagnosis Onset Date Resolution Status Breast asymmetry between donavan vera breast and reconstructed breast acute Breast hypertrophy acute History of cancer of right breast acute [facility] Work Phone: History general Narrative - Reported* Type Description Date Medical History Chronic low back pain that limit s activity Medical History Depression Medical History GERD Medical History Hyperlipidemia Medical History NARA on CPAP Medical History Breast Cancer Medical History Hypothyroidism Medical History SI Joint nerve issue Medical History Overactive bladder Medical History Incompetent vein reflux Surgical History Bilateral knee scopes Surgical History Right shoulder scope Surgical History Hysterectomy Surgical History Bladder lift Surgical History Right side mastectomy Surgical History Right side breast tissue expand er Surgical History [place] teeth Surgical History 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 Surgical History Heart cath Surgical History Dental implant Hospitalization History See above [employer] Other History general Narrative - Reported* Type Description Date Medical History Chronic low back pain that limit s activity Medical History Depression Medical History GERD Medical History Hyperlipidemia Medical History NARA on CPAP Medical History Breast Cancer Medical History Hypothyroidism Medical History SI Joint nerve issue Medical History Overactive bladder Medical History Incompetent vein reflux Medical History Inguinal hernia repair 2022 Medical History UTI Surgical History Bilateral knee scopes Surgical History Right shoulder scope Surgical History Hysterectomy Surgical History Bladder lift Surgical History Right side mastectomy Surgical History Right side breast tissue expand er Surgical History [place] teeth Surgical History 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 Surgical History Heart cath Surgical History Dental implant Surgical History Inguinal hernia repair Surgical History Steroid injections in back Hospitalization History See above [employer] Other Reason for visit Narrative* Auth/Cert Specialty Diagnoses / Procedures Referred By Felix t Referred To Contact Diagnoses 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 Personal history of malignant neoplasm of breast [Z85.3] 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] Procedures DC TISSUE SPECIALIST PHYSICIANS PLACEMENT BREAST RECONSTRUCTION DC IMPLNT BIO IMPLNT FOR SOFT TISSUE REINFORCEMENT RECONSTRUCTION BREAST TISSUE SPECIALIST PHYSICIANS INCLUDING SUBSEQUENT EXPANDERS IMPLANTATION BIOLOGIC IMPLANT FOR SOFT TISSUE REINFORCEMENT ADD-ON PX Apolinar Henry MD [address] [id number] Referral ID Status Reason Start Date Expiration Date Visits Re quested Visits Authorized [id number] 06/10/2022 1 1 [employer] Summary Purpose Family History No Family History Records Found Relationship Condition Age at Onset Recorded Date/T amber mother Cardiac disease Unknown father Cardiac disease Unknown Advance Directives No Advanced Directives Records FoundNo Advanced Directives Records FoundNo Advanced Directives Records FoundNo Advanced Directives Records FoundNo Advanced Directives Records FoundNo Advanced Directives Records FoundNo Advanced Directives Records FoundNo Advanced Directives Records FoundNo Advanced Directives Records FoundNo Advanced Directives Records Found Chief Complaint and Reason for Visit Chief Complaint Consult Chief Complaint Consult preop #1 left breast red/ right creel operator port Reason for Visit Breast asymmetry [place] breast and reconstructed breast Breast hypertrophy History of cancer of right breast Additional Source Comments INFORMATION SOURCE (unrecogn ized section and content) DATE CREATED AUTHOR [facility]/07/2018 [facility] DATE CREATED AUTHOR AUTHOR'S ORGANIZ ATION 08/23/2018 [facility] DATE CREATED AUTHOR AUTHOR'S ORGANIZ ATION 09/01/2018 [facility] DATE CREATED AUTHOR AUTHOR'S ORGANIZ ATION 12/11/2020 [facility] DATE CREATED AUTHOR AUTHOR'S ORGANIZ ATION 07/10/2022 [facility] DATE CREATED AUTHOR AUTHOR'S ORGANIZ ATION 11/20/2022 [facility] DATE CREATED AUTHOR AUTHOR'S ORGANIZ ATION 12/25/2022 [facility] DATE CREATED AUTHOR AUTHOR'S ORGANIZ ATION 07/23/2023 [facility] DATE CREATED AUTHOR AUTHOR'S ORGANIZ ATION 07/27/2023 [facility] DATE CREATED AUTHOR AUTHOR'S ORGANIZ ATION 08/31/2023 [facility] Reason for Visit (unrecogniz ed section and content) Reason Comments Consult Berenice is here today to discuss reconstruction to her right breast. She had a mastectomy on 01/20/93. She is tired of her prosthesis being uncomfortable. Reason Comments Follow-up Right breast reconst ruction on 07/09/22. Reason Comments Pre-op Exam Right breast reconst ruction on 07/09/22. Pre and post op instructions reviewed and signed. Reason Comments Post Op Visit Right breast reconst ruction with creel operator on 07/09/22. She complains of soreness, 7/10 on pain scale, and states that her dressing fell out a few days ago. She continues wearing her surgical bra but does not like the fit. Reason Comments Post Op Visit Right breast reconst ruction on 07/09/22. She complains of occasional aching to the right side of the breast, 4/10 on pain scale. She continues sleeping in a recliner and wearing her surgical bra at all times. Berenice continues taking Keflex twice a day. Reason Comments Post Op Visit Right breast reconst ruction on 07/09/22. She complains of occasional discomfort 2/10 on pain scale. Reason Comments Post Op Visit Right breast reconst ruction on 07/09/22. She denies any pain but states there is some discoloration under the breast. Reason Comments Follow-up Berenice is here today for a breast fill.She denies any more pain from her fall on 09/16/22. She was diagnosed with venous incompetence. Reason Comments Follow-up Breast fill. Denies pain but had pain the day of last fill. Reason Comments Establish Care Right breast fill. D enied pain post fill on 10/07/2022. Reason Comments Establish Care One month recheck Care Teams (unrecognized sec tion and content) Information Consultant Relationship Specialty Start Date End Date Shaikh Kerry Villagran MD [address] [place] [phone] PCP - General Internal Medicine 05/20/22 Information Consultant Relationship Specialty Start Date End Date Shaikh Kerry Villagran MD [address] [place] [phone] PCP - General Internal Medicine 05/20/22 Information Consultant Relationship Specialty Start Date End Date Shaikh Kerry Villagran MD [address] [place] [phone] PCP - General Internal Medicine 05/20/22 Information Consultant Relationship Specialty Start Date End Date Shaikh Kerry Villagran MD [address] [place] [phone] PCP - General Internal Medicine 05/20/22 Information Consultant Relationship Specialty Start Date End Date Shaikh Kerry Villagran MD [address] [place] [phone] PCP - General Internal Medicine 05/20/22 Information Consultant Relationship Specialty Start Date End Date Shaikh Kerry Villagarn MD [address] [place] [phone] PCP - General Internal Medicine 05/20/22 Team Status: Active Member Role Status Dates SHEIKH TYSHAWN Primary Care Provider Active Team Status: Inactive Member Role Status Dates Dr. Apolinar Henry MD Attending Provider Active Scheduled Active and Recently Administ ered Medications (unrecognized section and content) Medication Order 07/07/2022 07/08/2022 07/09/2022 clindamycin (CLEOCIN) 900 mg in normal saline 50 ml premix IVPB (COMPLETED) 900 mg, Intravenous, Administer over 30 Minutes, ONCE, 1 dose, On Carla 07/09/22 at 0845, Pre-op/Pre-Proc 1151 (Given - Provid er: REBEL Ochoa) Continuous Medication Order 07/07/2022 07/08/2022 07/09/2022 lactated ringers IV solution Intravenous, at 50 mL/hr, CONTINUOUS, Starting on Carla 07/09/22 at 0845, Until Carla 07/09/22 at 1916, Pre-op/Pre-Proc 1129 ($$New Bag$$ - Provider: REBEL Ochoa)1153 (Paused - Provider: REBEL Ochoa - Comment: Switch to gravity)1154 ($$New Bag$$ - Provider: REBEL Ochoa)1207 (Rate/Dose Change - Provider: REBEL Ochoa)1213 (Anesthesia Volume Adjustment - Provider: REBEL Ochoa)1324 ($$New Bag$$ - Provider: REBEL Ochoa)1700 (Stopped - Provider: Deanna Jimenez RN) PRN Medication Order 07/07/2022 07/08/2022 07/09/2022 gentamicin (GARAMYCIN) injection NEEDED, Starting on Carla 07/09/22 at 1217, Until Carla 07/09/22 at 1916, Intra-op/Intra-Proc 1217 (Given - Provid er: Apolinar Henry MD - Comment: added to 1000ml normal saline used for irrigation) methylene blue (PROVAYBLUE) injection NEEDED, Starting on Carla 07/09/22 at 1436, Until Carla 07/09/22 at 1916, Intra-op/Intra-Proc 1436 (Given - Provid er: Apolinar Henry MD - Comment: mixed with injectable saline by dr henry used for implant) Oxidized Cellulose (SURGICEL) topical pad NEEDED, Starting on Carla 07/09/22 at 1437, Until Carla 07/09/22 at 1916, Intra-op/Intra-Proc 1437 (Given - Provid er: Apolinar Henry MD) oxyCODONE-acetaminophen (PERCOCET) 5-325 MG per tablet 1-2 tablet 1-2 tablet, Oral, EVERY 4 HOURS NEEDED, Starting on Carla 07/09/22 at 1533, Until Carla 07/09/22 at 1916, Moderate Pain, Severe Pain, 1549 (Given - Provid er: Deanna Jimenez RN) sodium chloride 0.9 % irrigation NEEDED, Starting on Carla 07/09/22 at 1217, Until Carla 07/09/22 at 1916, Intra-op/Intra-Proc 1217 (Given - Provid er: Apolinar Henry MD) sodium chloride 0.9% IV solution CONTINUOUS NEEDED, Starting on Carla 07/09/22 at 1217, Until Carla 07/09/22 at 1916, Intra-op/Intra-Proc 1217 ($$New Bag$$ - Provider: Apolinar Henry MD - Comment: used intraoperatively) No Frequency Medication Order 07/07/2022 07/08/2022 07/09/2022 nitroGLYCERIN (NITRO-BID) 2 % ointment 1 dose, Starting on Carla 07/09/22 at 1114, Until Wed07/10/22 at 1130, Malika Diaz: cabinet override 1130 (Canceled Entry - Provider: System Discharge - Comment: Automatically canceled at discontinue of medication order) Goals (unrecognized section and content) Goals may be documented in a n alternate section FOR RECORDS PERTAINING TO PATIENTS WHO ARE OR HAVE BEEN ENROLLED IN A CHEMICAL DEPENDENCY/SUBSTANCEABUSE PROGRAM, SOME INFORMATION MAY BE OMITTED. This clinical summary was aggregated from multiple sources. Caution should be exercised in using it in the provision of clinical care. This summary normalizes information from multiple sources, and as a consequence, information in this document may materially change the coding, format and clinical context of patient data. In addition, data may be omitted in some cases. CLINICAL DECISIONS SHOULD BE BASED ON THE PRIMARY CLINICAL RECORDS. [facility] [employer] [facility]. provides no warranty or guarantee of the accuracy or completeness of information in this document.
== END 2023-07-21 10:49 | disposition home or self-care (01) ==
LOC: PM 10:49
PROVIDERS: PCP Internal Medicine; Visit Provider Nurse Practitioner
DX: M47.816 Spondylosis without myelopathy or radiculopathy, lumbar region (principal); M53.3 Sacrococcygeal disorders, not elsewhere classified; M48.062 Spinal stenosis, lumbar region with neurogenic claudication
CPT/HCPCS: G0463

== ENCOUNTER 2023-08-14 03:15 | Emergency (ER) | payer MEDICARE, OTHER, SELFPAY ==
[2023-08-14 03:21] VITALS: BP 150/100; PULSE 75; RESP 16; TEMP 36.6; O2SAT 95; BMI 32.4
--- NOTE | 2023-08-14 03:37 | ED_ITS ---
HPI - Nausea/Vomiting/Diarrhea General Chief complaint: Nausea/Vomiting/Diarrhea Stated complaint: vomiting Time Seen by Provider: 08/14/23 03:19 Source: patient Mode of arrival: walk-in Limitations: no limitations History of Present Illness HPI Narrative: 73-year-old female presents for nausea and vomiting. It started about 4 1/2 hours ago and she threw up several times. She feels a bit weak now. No fever or hematemesis or chest pain. No shortness of breath or back pain. Related Data Home Medications Medication Instructions Recorded Confirmed aspirin 81 mg tablet,delayed 81 mg PO DAILY 05/31/23 07/05/23 release (Adult Low Dose Aspirin) calcium carbonate 600 mg-vitamin 1 tab PO DAILY 05/31/23 07/05/23 D3 5 mcg (200 unit) tablet (Calcium 600 + D(3)) citalopram 20 mg tablet 30 mg PO DAILY 05/31/23 07/05/23 esomeprazole magnesium 40 mg 40 mg PO DAILY 05/31/23 07/05/23 capsule,delayed release (Nexium) famotidine 20 mg tablet 20 mg PO DAILY 05/31/23 07/05/23 fesoterodine 8 mg tablet,extended 8 mg PO DAILY 05/31/23 07/05/23 release 24 hr flaxseed oil 1,000 mg capsule 1,000 mg PO DAILY 05/31/23 07/05/23 lactobacillus combination no.4 3 3,000 mmu cells PO DAILY 05/31/23 07/05/23 billion cell capsule (Probiotic) levothyroxine 50 mcg capsule 50 mcg PO DAILY 05/31/23 07/05/23 melatonin 10 mg capsule 10 mg PO DAILY 05/31/23 07/05/23 multivitamin (Daily Multi-Vitamin 1 tab PO DAILY 05/31/23 07/05/23 tablet) semaglutide 0.25 mg or 0.5 mg (2 0.25 mg subcut QWEEK 05/31/23 07/05/23 mg/3 mL) subcutaneous pen injector (Ozempic) simvastatin 20 mg tablet 20 mg PO DAILY 05/31/23 07/05/23 Previous Rx's Medication Instructions Recorded ondansetron 4 mg disintegrating 4 mg PO Q6H PRN nausea and 08/14/23 tablet vomiting #20 tabs Allergies Allergy/AdvReac Type Severity Reaction Status Date / Time Penicillins Allergy Verified 08/14/23 03:26 Sulfa (Sulfonamide Allergy Verified 08/14/23 03:26 Antibiotics) Review of Systems ROS Narrative A ten point review of systems is negative except as noted above. PFSH PFSH Medical History Acid reflux ?K21.9 - Gastro-esophageal reflux disease without esophagitis (ICD-10) Diabetes ?E11.9 - Type 2 diabetes mellitus without complications (ICD-10) H/O malignant neoplasm of breast ?Z85.3 - Personal history of malignant neoplasm of breast (ICD-10) High cholesterol ?E78.00 - Pure hypercholesterolemia, unspecified (ICD-10) Osteoarthritis ?M19.90 - Unspecified osteoarthritis, unspecified site (ICD-10) Sleep apnea ?G47.30 - Sleep apnea, unspecified (ICD-10) Surgical History H/O arthroscopy of knee ?Z98.890 - Other specified postprocedural states (ICD-10) H/O arthroscopy of shoulder ?Z98.890 - Other specified postprocedural states (ICD-10) H/O bladder repair surgery ?Z98.890 - Other specified postprocedural states (ICD-10) H/O breast reconstruction ?Z98.890 - Other specified postprocedural states (ICD-10) H/O mastectomy ?Z90.10 - Acquired absence of unspecified breast and nipple (ICD-10) H/O: hysterectomy ?Z90.710 - Acquired absence of both cervix and uterus (ICD-10) Social History Smoking status: Never smoker Exam Narrative Exam Narrative: Nurses note and vital signs reviewed and patient is not hypoxic. General: The patient appears well and in no apparent distress. Patient is resting comfortably on cart. Skin: Warm, dry, no pallor noted. There is no rash noted. Head: Normocephalic, atraumatic Eye: Normal conjunctiva, no drainage Ears, Nose, Mouth, and Throat: oral mucosa is moist. Nares patent. Cardiovascular: Regular Rate and Rhythm Respiratory: Patient is in no distress, no accessory muscle use, lungs are clear to auscultation, no wheezing, rales or rhonchi Back: non-tender GI: no tenderness to palpation, no masses appreciated. No rebound, guarding, or rigidity noted. Musculoskeletal: The patient has no evidence of calf tenderness, no pitting e [place], symmetrical pulses noted bilaterally Neurological: A&O, normal speech Psychiatric: Cooperative Constitutional Vital Signs, click to edit/add: Last Vital Signs Temp 97.9 F 08/14/23 03:21 Pulse 75 08/14/23 03:21 Resp 16 08/14/23 03:21 BP 150/100 H 08/14/23 03:21 Pulse Ox 95 08/14/23 03:21 O2 Del Method Room Air 08/14/23 03:21 Course Vital Signs Vital signs: Vital Signs Temperature 97.9 F 08/14/23 03:21 Pulse Rate 75 08/14/23 03:21 Respiratory Rate 16 08/14/23 03:21 Blood Pressure 150/100 H 08/14/23 03:21 Pulse Oximetry 95 08/14/23 03:21 Oxygen Delivery Method Room Air 08/14/23 03:21 Temperature 97.9 F 08/14/23 03:21 Pulse Rate 75 08/14/23 03:21 Respiratory Rate 16 08/14/23 03:21 Blood Pressure 150/100 H 08/14/23 03:21 Pulse Oximetry 95 08/14/23 03:21 Oxygen Delivery Method Room Air 08/14/23 03:21 MDM - Nausea/Vomiting/Diarrhea MDM Narrative Medical decision making narrative: The patient is feeling improved with IV fluids and Zofran. Bloodwork nonspecif ic. She is being discharged home on Zofran. Findings were discussed with the paatient. Differential Diagnosis Differential diagnosis: Likely food poisoning and gastroenteritis Lab Data Labs: Lab Results 08/14/23 Range/Units 03:27 WBC 10.2 (4.0-11.0) 10^3/uL RBC 4.93 (4.20-5.40) 10^6/uL Hgb 14.5 (12.0-16.0) g/dL Hct 44.6 (36.0-48.0) % MCV 90.5 (81.0-99.0) fL MCH 29.4 (26.7-34.0) pg MCHC 32.5 (29.9-35.2) g/dL RDW 14.6 (11.0-15.0) % Plt Count 166 (150-450) 10^3/uL MPV 10.8 (9.5-13.5) fL Neut % (Auto) 83.0 H (43.0-75.0) % Lymph % (Auto) 11.7 L (20.5-60.0) % [place] % (Auto) 4.3 (1.7-12.0) % Eos % (Auto) 0.2 L (0.9-7.0) % Baso % (Auto) 0.3 (0.2-2.0) % Neut # (Auto) 8.5 H (1.4-6.5) 10^3/uL Lymph # (Auto) 1.2 (1.2-3.8) 10^3/uL [place] # (Auto) 0.4 (0.3-0.8) 10^3/uL Eos # (Auto) 0.0 (0.0-0.7) 10^3/uL Baso # (Auto) 0.0 (0.0-0.1) 10^3/uL Abs Immat Gran (auto) 0.05 H (0.00-0.03) 10^3/uL Imm/Tot Granulo (auto) 0.5 (0.0-0.5) % Sodium 138 (136-145) mmol/L Potassium 3.7 (3.5-5.1) mmol/L Chloride 102 (98-107) mmol/L Carbon Dioxide 26.8 (21.0-32.0) mmol/L Anion Gap 12.9 BUN 19.0 H (7.0-18.0) mg/dL Creatinine 0.68 (0.55-1.02) mg/dL Est GFR ( Amer) >60 (>=60) Est GFR (Non-Af Amer) >60 (>=60) BUN/Creatinine Ratio 27.9 Glucose 107 H (74-106) mg/dL Calcium 9.1 (8.5-10.1) mg/dL Discharge Plan Discharge Chief Complaint: Nausea/Vomiting/Diarrhea Clinical Impression: Nausea & vomiting Patient Disposition: Home, Self-Care Time of Disposition Decision: 05:03 Condition: Good Mode of Transportation: Private Vehicle Prescriptions / Home Meds: New ondansetron 4 mg tablet,disintegrating 4 mg PO Q6H PRN (Reason: nausea and vomiting) Qty: 20 0RF No Action levothyroxine 50 mcg capsule 50 mcg PO DAILY citalopram 20 mg tablet 30 mg PO DAILY fesoterodine 8 mg tablet extended release 24 hr 8 mg PO DAILY esomeprazole magnesium [Nexium] 40 mg capsule,delayed release(DR/EC) 40 mg PO DAILY simvastatin 20 mg tablet 20 mg PO DAILY famotidine 20 mg tablet 20 mg PO DAILY aspirin [Adult Low Dose Aspirin] 81 mg tablet,delayed release (DR/EC) 81 mg PO DAILY calcium carbonate-vitamin D3 [Calcium 600 + D(3)] 600 mg-5 mcg (200 unit) tablet 1 tab PO DAILY multivitamin [Daily Multi-Vitamin] Tablet 1 tab PO DAILY melatonin 10 mg capsule 10 mg PO DAILY flaxseed oil 1,000 mg capsule 1,000 mg PO DAILY Ozempic 0.25 mg or 0.5 mg (2 mg/3 mL) pen injector 0.25 mg subcut QWEEK Rx Instructions: for 4 weeks Probiotic 3 billion cell capsule 3,000 mmu cells PO DAILY Rx Instructions: administer with a meal Instructions: Acute Nausea and Vomiting (ED) Stand Alone Forms: Portal Instructions Referrals: Shaikh Villagran MD [Primary Care Provider] - 1 week
[2023-08-14] MEDS: 0.9 % SODIUM CHLORIDE 1,000 ML 1000 ML IV (04:04)
[2023-08-14] MEDS: ONDANSETRON PF 4 MG/2 ML VIAL IV (04:04)
[2023-08-14 04:21] LABS: Basophils Percent Auto 0.3 % (0.2-2.0); Eosinophils Percent Auto 0.2 % (0.9-7.0); Hematocrit 44.6 % (36.0-48.0); Hemoglobin 14.5 g/dL (12.0-16.0); Immature Granulocytes Abs Auto 0.05 10^3/uL (0.00-0.03); Immature Granulocytes Pct Auto 0.5 % (0.0-0.5); Lymphocytes Absolute Auto 1.2 10^3/uL (1.2-3.8); Lymphocytes Percent Auto 11.7 % (20.5-60.0); Mean Corpuscular HGB Conc 32.5 g/dL (29.9-35.2); Mean Corpuscular Hemoglobin 29.4 pg (26.7-34.0); Mean Corpuscular Volume 90.5 fL (81.0-99.0); Mean Platelet Volume 10.8 fL (9.5-13.5); Monocytes Absolute Auto 0.4 10^3/uL (0.3-0.8); Monocytes Percent Auto 4.3 % (1.7-12.0); Neutrophils Absolute Auto 8.5 10^3/uL (1.4-6.5); Platelet Count 166 10^3/uL (150-450); Red Blood Count 4.93 10^6/uL (4.20-5.40); Red Cell Distribution Width 14.6 % (11.0-15.0); White Blood Count 10.2 10^3/uL (4.0-11.0)
[2023-08-14 04:28] LABS: Anion Gap 12.9; BUN Creatinine Ratio 27.9; Calcium 9.1 mg/dL (8.5-10.1); Carbon Dioxide 26.8 mmol/L (21.0-32.0); Chloride 102 mmol/L (98-107); Estimated GFR (African America >60 (>=60); Estimated GFR (Non-African Ame >60 (>=60); Glucose 107 mg/dL (74-106); Potassium 3.7 mmol/L (3.5-5.1); Sodium 138 mmol/L (136-145)
[2023-08-14] MEDS: ACETAMINOPHEN 325 MG TABLET 650 MG PO (05:22)
== END 2023-08-14 05:43 | disposition home or self-care (01) ==
PROVIDERS: Emergency Provider Emergency Medicine; PCP Internal Medicine
DX: R11.2 Nausea with vomiting, unspecified (principal); K21.9 Gastro-esophageal reflux disease without esophagitis; E11.9 Type 2 diabetes mellitus without complications; E78.00 Pure hypercholesterolemia, unspecified; Z85.3 Personal history of malignant neoplasm of breast; M19.90 Unspecified osteoarthritis, unspecified site; Z79.82 Long term (current) use of aspirin; Z79.899 Other long term (current) drug therapy; Z79.890 Hormone replacement therapy; G47.30 Sleep apnea, unspecified; Z98.890 Other specified postprocedural states; Z90.10 Acquired absence of unspecified breast and nipple; Z90.710 Acquired absence of both cervix and uterus
CPT/HCPCS: 36415; 80048; 85025; 96361; 96374; 99284

== ENCOUNTER 2023-10-28 11:19 | Outpatient (OUT) | payer MEDICARE, OTHER, SELFPAY ==
--- OUTSIDE RECORDS SUMMARY | 2023-10-28 11:30 | XMS_ITS | CCD ---
Author Name Unknown Address [address] [place] [address] Organization [facility] Care Team Providers Care Him Tech Name Role Phone NANCY MARTINEZ Unavailable Unavailable NANCY MARTINEZ Unavailable Unavailable NADERER, TRINO~[phone] UNKNOWN Unavailable Unavailable GRUPO BROUSSARD Unavailable Unavailable [place] Procedure Practitioner Unavailab ADAM Bernardo Surgeon Unavailable ADAM SKINNER Admitting Unavailable NADERER, TRINO Primary Care Unavailable NADERER, TRINO Referring Unavailable ADAM SKINNER Attending Unavailable LASHA BAKER Surgeon Unavailable [place] Procedure Practitioner Unavailab le Tyshawn ADAMSON, Shaikh Kerry Primary Care Provider Shaikh Kerry Villagran MD Primary Care Provider SHAIKH KERRY VILLAGRAN Primary Care Unavailab le GHAZOUL, APOLINAR Admitting Unavailable GHAZOUL, APOLINAR Attending Unavailable GHAZOUL, APOLINAR Referring Unavailable GHAZOUL, APOLINAR Attending Unavailable GHAZOUL, APOLINAR Referring Unavailable [facility] Primary Care Unavailab le FAWWADSHAIKH KERRY Primary Care Unavailab le SELF, SELF Referring Unavailable GHAZOUL, APOLINAR Attending Unavailable SHAIK VILLAGRANH KERRY Primary Care Unavailab le GHAZOUL, APOLINAR Referring Unavailable GHAZOUL, APOLINAR Attending Unavailable SHAIK [facility] Primary Care Unavailab le SELF, SELF Referring Unavailable GHAZOUL, APOLINAR Attending Unavailable TYSHAWN, FREED HAMMANUELA Primary Care Unavailab le SELF, SELF Referring Unavailable GHAZOUL, APOLINAR Attending Unavailable AKICALEAH [facility] Primary Care Unavailab le SELF, SELF Referring Unavailable GHAZOUL, APOLINAR Attending Unavailable [facility] Primary Care Unavailab le SELF, SELF Referring Unavailable GHAZOUL, APOLINAR Attending Unavailable [facility], [facility] Primary Care Unavailab le SELF, SELF Referring Unavailable GHAZOUL, APOLINAR Attending Unavailable FA[facility]AD, [facility] Primary Care Unavailab le SELF, SELF Referring Unavailable GHAZOUL, APOLINAR Attending Unavailable FAWWAD, [facility] Primary Care Unavailab le SELF, SELF Referring Unavailable GHAZOUL, APOLINAR Attending Unavailable FAWWAD, [facility] Primary Care Unavailab le SELF, SELF Referring Unavailable GHAZOUL, APOLINAR Attending Unavailable FAWWAD, [facility] Primary Care Unavailab le SELF, SELF Referring Unavailable GHAZOUL, APOLINAR Attending Unavailable FAWWAD, [facility] Primary Care Unavailab le SELF, SELF Referring Unavailable GHAZOUL, APOLINAR Attending Unavailable FAWWAD, [facility] Primary Care Unavailab le SELF, SELF Referring Unavailable GHAZOUL, APOLINAR Attending Unavailable FAWWAD, [facility] Primary Care Unavailab le FAWWAD, [facility] Primary Care Unavailab le FAWWAD, [facility] Primary Care Unavailab le SELF, SELF Referring [...] Unavailable MARCELLUS, DR ADAM Castellanos Admitting Unavailable INKSTER, DR ADAM Castellanos Attending Unavailable INKSTER, DR ADAM Castellanos Consulting Unavailable FAWWAD, FREED [...] Jordan Unavailable Dr. Apolinar Henry Attending Provider [phone] Adriana Lyn Unavailable Apolinar Henry Attending Unavailable Apolinar Henry Attending Unavailable Apolinar Henry Attending Unavailable Tyshawn ADAMSON, Freed Hammanuela Primary Care Rocio MUNSON, Kevin Workman Attending Ela Villagran MD, Freed Kerry Primary Care Rocio MUNSON, Kevin Workman Attending Ela Betancourt MD, Jovan Cagle Attending Rocio Villagran MD, Freed Hammanuela Primary Care Rocio Villagran MD, Freed Kerry Primary Care Rocio De La Vega APRN-ZEINA, Kevin Workman Attending Ela Villagran MD, Shaikh Kerry Primary Care Rocio MUNSON, Kevin Workman Attending Ela Villagran MD, Freed Hammanuela Primary Care Rocio Betancourt MD, Jovan Cagle Referring Alycia Yoder Attending Unavailable Tyshawn ADAMSON, Freed Hammanuela Primary Care Rocio Betancourt MD, Jovan Cagle Attending Rocio Villagran MD, [facility] Rocio Betancourt MD, Jovan Cagle Attending Rocio Villagran MD, [facility] Rocio Betancourt MD, Jovan Cagle Attending Rocio Vazquez PA-C, Agnieszka Salcedo Attending Shruti Villagran MD, [facility] Rocio Villagran MD, [facility] Rocio Betancourt MD, Jovan Cagle Attending Rocio Villagran MD, [facility] Rocio Betancourt MD, Jovan Cagle Attending Rocio Villagran MD, [facility] Rocio Dallas DO, Nancy Gonzalez Attending Shruti Betancourt MD, Adam Cardenas Attending [facility], [facility] Rocio Mack MD, Andrius Vytautlizzeth Attending Unavailable Tyshawn ADAMSON, [facility] Rocio Mack MD, Andrius Vytautlizzeth Attending Gian Villagran MD, [facility] Rocio Mack MD, Andrius Vytautlizzeth Attending Gian Villagran MD, [facility] Susanne Jordan Attending Unavailable Susanne Jordan Admitting Unavailable Allergies Allergy Classification Reported Allergen(s) Allergy Type Date of Onset Reaction(s) Facility (2 sources) cortisone; Translations: [cortisone] Drug Allergy [facility] Repository (20 sources) Penicillins; Translations: [penicillins] Propensity to adverse reactions (disorder) 3 Itching [facility] Repository (1 source) sulfamethoxazole; Translations: [sulfamethoxazole ] Drug Allergy [facility] Repository (3 sources) Sulfonamides (Antibiotic) Drug allergy (disorder) 3 [facility] Repository (13 sources) sulfaSALAzine Drug Allergy 7 Itching [facility] (13 sources) Sulfonamides (Antibiotic) Propensity to adverse reactions to drug 3 Itching [facility] (5 sources) Penicillin Drug Allergy Unknown [employer] Other (5 sources) Substance with sulfonamide structure and antibacterial mechanism of action (substance) Drug allergy Unknown [employer] Other (2 sources) Sulfonamides (Antibiotic) Allergy to substance 3 Rash [facility] (2 sources) Sulfonamides (Antibiotic) Drug allergy (disorder) 3 [facility] Repository (1 source) Sulfonamides (Antibiotic); Translations: [sulfa drugs] Propensity to adverse reactions to drug (disorder) [facility] Repository Medications Current Medications Medication Drug [...] 2023 12:00am take 1 tablet by stone every twenty-four hours Aspirin 81 MG 1 [...] 12:00am Start: 06-09-2022 take 1 capsule by [facility] once daily in the morning [...] Delmar e by mouth daily. 0 Active Osfxcrsv-Ait-Za-Lycopen-Lute in (Complete Mv Adult 50 Plus) 0.4 mg-300 mcg- 250 mcg tablet (2 sources) Start: 05-05-2023 take 1 tablet by mouth once daily Wjjtaytd-Vnw-Dp-Lycopen-Lutein (Complete Mv Adult 50 Plus) 0.4 mg-300 [...] oral capsule (13 sources) Chol iner gic [facility] alejandra ic Anta goni st take 1 [...] 3 days. 10 tablet 0 06/30/2022 Active [id number] 200 actuat albuterol 0.09 mg/actuat metered dose [...] Cellulose (SURGICEL) topical pad polyethylene glycol 3350 666269 mg / potassium chloride 2970 mg / sodium bicarbonate 6740 mg / sodium chloride 5860 mg / sodium sulfate 20971 mg powder for oral solution (1 source) [...] Results Test Name Value Interpretation Reference Range Facility Surgery Office/Clinic Noteon 10-11-2023 Surgery Office/Clinic Note Chief Complaint Patient presents for follow up visit. History of Present Illness 73 year old female, patient of Dr. Villagran Patient s/p robotic left inguinal hernia repair, performed 07/01/2023. At last visit on 07/21/2023, she was doing well. She reports pain at hernia site. State that this started a couple weeks ago. Reports the pain is sharp and is pretty consistent. States that she has the pain when walking, but can also have it when sitting and laying down. She is unsure if there is a recurrent bulge. States that bowels are moving. Pain has since improved. Here for recheck. Physical Exam Vitals & Measurements HR: 75 (Peripheral) BP: 120/80 HT: 168 cm WT: 92.4 kg (Estimated) WT: 92.4 kg (Dosing) BMI: 32.74 Gen: Awake, alert Lungs: non-labored respiration Abdomen: Soft, minimally tender, non-distended No palpable hernias Assessment/Plan 1. Left inguinal hernia Improving slowly We will follow-up in 1 month if symptoms do not resolve or worsen Problem List/Past Medical History Ongoing CAD (coronary artery disease) Chronic GERD CPAP/BiPAP dependent Cystocele Depression Hyperlipidemia Hypothyroidism OAB (overactive bladder) Osteoarthritis of left hip Vaginal atrophy Historical Arthritis of left hip Breast cancer Chronic cough Colon polyps: hyperplastic & tubular adenomas (04/2019) COVID-19 (09/2021) Drug-induced obesity with body mass index (BMI) of 35 to less than 40 Encounter for gynecological examination (general) (routine) without abnormal findings Feeling of incomplete bladder emptying H/O cardiac catheterization Hernia, inguinal, left History of breast cancer History of colonoscopy with polypectomy IL (myocardial infarction) (2013) Morbid obesity with body mass index (BMI) of 40.0 or higher Obesity, BMI not known PMB (postmenopausal bleeding) Sleep apnea Thickened endometrium Vaginal ulcer Procedure/Surgical History Bilateral cataract extraction Comments: IOL IMPLANTS BOTH EYES Left knee arthroscopy Comments: ARTHROSCOPY RT Extensive vaginal resection of vaginal tissue Right shoulder, rotator cuff repair Comments: RIGHT ROTATOR CUFF REPAIR Hysteroscopy, D&C Sinus surgery (1984) Tubal ligation (1989) Right mastectomy (1992) Comments: right side; RIGHT RADICAL MASTECTOMY FOR BREAST CA, S/P CHEMOTHERAPY Right knee arthroscopy (07/2014) Comments: RIGHT KNEE SCOPE Cardiac catheterization (07/2014) Comments: HAD HEART CATH AFTER [place] DURING KNEE SCOPE. NO STENTS WERE PLACED AND NO BLOCKAGES WERE FOUND PER PATIENT. Total Hysterectomy Robotic Si (05/04/2017) Comments: auto-populated from documented surgical case Dilatation and Curettage (05/04/2017) Comments: auto-populated from documented surgical case Repair Anterior and Posterior Vagina (05/04/2017) Comments: auto-populated from documented surgical case Blakely Procedure Robotic Si (05/04/2017) Comments: auto-populated from documented surgical case Colonoscopy Polypectomy (04/20/2019) Comments: auto-populated from documented surgical case Esophagogastroduodenoscopy with Biopsy with Arana (02/15/2020) Comments: auto-populated from documented surgical case Esophageal Manometry (02/15/2020) Comments: auto-populated from documented surgical case Urodynamic studies (05/26/2021) Repair Anterior Vagina (06/27/2021) Comments: auto-populated from documented surgical case Right breast reconstruction (06/2022) Repair Hernia Inguinal Robotic X/Xi (Left) (07/01/2023) Comments: auto-populated from documented surgical case Medications Afrin 0.05% nasal spray, See Instructions [...] lifetime) Use:. Family History Breast cancer: Aunt/Uncle. (more content not included)... Normal [facility] Urology Office/Clinic Noteon 09-01-2023 Urology Office/Clinic Note Chief Complaint 6 month follow upw ith sx check History of Present Illness 73 year old female presents for 6-month symptom check. She has been doing well on Toviaz. She is getting approximately 4 hours in between voids, still having nocturia x 3, but sleeps for 12 hours through the night. She is having better control of incontinence. Typically dry during the day, if she has any leakage it is very small dribble associated with urge. Now at nighttime she is typically able to make it to the bathroom before being incontinent. Overall happy. She has been seen dietitian and is on Ozempic. She has lost 30 pounds since her last appointment. Plans to try to lose 40 more. History: s/p LUIGI/BSO with Anterior and Posterior repair and Blakely [place] [address] Nancy Dallas. She then had another anterior colporrhaphy [address] Nancy Dallas. Failed oxybutynin and trospium prior, Myrbetriq too expensive. Review of Systems General: No fever, chills. Physical Exam Vitals & Measurements HT: 168 cm WT: 92.4 kg WT: 92.4 kg (Dosing) BMI: 32.74 General: well-developed, in no acute distress. Neuro: Alert and oriented. Gait is steady. Speech is clear and appropriate. MS: Equal movement x 4 extremities. No obvious weakness. Cardiovascular: No cyanosis. Lungs: No respiratory distress. No audible wheezing. Additional Vitals No qualifying data available. Assessment/Plan 1. OAB (overactive bladder) Doing well with toviaz. F/u 1 year symptom check. Problem List/Past Medical History Ongoing CAD (coronary artery disease) Chronic GERD CPAP/BiPAP dependent Cystocele Depression Hyperlipidemia Hypothyroidism OAB (overactive bladder) Osteoarthritis of left hip Vaginal atrophy Historical Arthritis of left hip Breast cancer Chronic cough Colon polyps: hyperplastic & tubular adenomas (04/2019) COVID-19 (09/2021) Drug-induced obesity with body mass index (BMI) of 35 to less than 40 Encounter for gynecological examination (general) (routine) without abnormal findings Feeling of incomplete bladder emptying H/O cardiac catheterization Hernia, inguinal, left History of breast cancer History of colonoscopy with polypectomy [place] (myocardial infarction) (2013) Morbid obesity with body [...] refills Allergies penicillins (Rash) sulfa drugs (Rash) Electronically signed by Yolette BOJORQUEZ-ZEINA, Kevin Workman 09/01/23 12:[address] [facility] Surgery Office/Clinic Noteon 07-20-2023 Surgery Office/Clinic [...] inguinal, left History of colonoscopy with polypectomy IL (myocardial infarction) (2013) Morbid obesity with body [...] MD 07/21/23 07:44 EST Electronically signed by TatumTeresita Alma 07/13/2023 13:33 EDT Electronically signed by Emely Zendejas PA-C 07/21/2023 08:[address] [facility] Operative Reporton 3 Operative Report Indication for Surge ry Patient is a 73 year old female with a symptomatic reducible left inguinal hernia Preoperative Diagnosis Symptomatic left inguinal hernia Postoperative Diagnosis same Operation Robotic left inguinal hernia repair Surgeon(s) Asia Zendejas PA-C Anesthesia Hempfling DRY CLEANER, GET Estimated Blood Loss 5 ml Urine [...] Jovan Betancourt MD 07/01/23 10:[address] [facility] Plastic Surgery Visit Report on 06-30-2023 Plastic Surgery Visit Report [facility] Plastic Reconstructive Surgery [address] [place] [address] OFFICE VISIT Date of Service: 06/30/23 MR#: [id number] Acct: [id number] Name: LETICIA NOLASCOSonny Guevara Rep #: [id number] : 1950 Provider: Dr. Apolinar flores MD Age/Sex: 73/F Location[facility] Status: Signed Intake Vital Signs 05/05/23 14:25 [...] Reasons: preop #1 left breast red/ right electrician manager port Chief Complaint: left breast red and [...] mg PO HS 05/05/23 [History Confirmed 06/30/23] gczgutzb-blc-tncwn acid 0.4 mg-lycopene 300 mcg-lutein 250 mcg tablet (Complete Multivitamin Adult 50 Plus) 1 tab PO DAILY 05/05/23 [History Confirmed 06/30/23] semaglutide 0.25 mg or 0.5 mg (2 mg/3 mL) subcutaneous pen injector (Ozempic) 0.25 mg subcut QWEEK 05/05/23 [History Confirmed 06/30/23] simvastatin 20 mg tablet 20 mg PO DAILY 05/05/23 [History Confirmed 06/30/23] PFSH Medical History (Updated 05/05/23 @ 15:33 by [...] HPI preop #1 left breast red/ right electrician manager port Details: Berenice comes in for preliminary [...] Z85.3 Breast hypertrophy N62 Breast asymmetry between [place] breast and reconstructed breast N65.1 Assessment (more content not included)... Normal [facility] .eGFRon 06-01-2023 GFR/1.73 sq M.predicted MDRD (S/P/Bld) [Vol rate/Area] mL/min/{1.73_m2} Normal >=[address] [facility] Comment on above: Order Comment: Order added by Discern rule Result Comment: [facility] Laboratories have implemented the eGFR calculation approach [...] years Performed By: #### E GFR #### [place] [address] CBC w/ Diffon 06-01-2023 Erythrocyte distribution width (RBC) [Ratio] 14.9 % High 11.6-14.[address] [facility] Comment on above: Performed By: #### C BC #### [place] [address] Hematocrit (Bld) [Volume fraction] 41.0 % Normal 36.0-46.[address] [facility] Comment on above: Performed By: #### C BC #### [place] [address] Hemoglobin (Bld) [Mass/Vol] 13.8 g/dL Normal 12.0-16.[address] [facility] Comment on above: Performed By: #### C BC #### [place] [address] MCH (RBC) [Entitic mass] 28.6 pg Normal 27.0-35.[address] [facility] Comment on above: Performed By: #### C BC #### [place] [address] MCHC 33.7 % Normal 31.0-37.[address] [facility] Comment on above: Performed By: #### C BC #### [place] [address] MCV (RBC) [Entitic vol] 85.0 fL Normal 80.0-100.[address] [facility] Comment on above: Performed By: #### C BC #### [place] [address] Platelet 180 x10*3/mcL Normal 150-[address] [facility] Comment on above: Performed By: #### C BC #### [place] [address] Platelet mean volume (Bld) [Entitic vol] 8.6 fL Normal 7.5-11.[address] [facility] Comment on above: Performed By: #### C BC #### [place] [address] RBC 4.82 x10*6/mcL Normal 3.80-5.[address] [facility] Comment on above: Performed By: #### C BC #### [place] [address] WBC 8.6 x10*3/mcL Normal 4.5-11.[address] [facility] Comment on above: Performed By: #### C BC #### [place] [address] CMPon 06-01-2023 Albumin [Mass/Vol] 4.1 g/dL Normal 3.7-5.[address] [facility] Comment on above: Performed By: #### C OMP #### [place] [address] Albumin/Globulin [Mass ratio] 1.5 {ratio} Normal 1.1-2.[address] [facility] Comment on above: Performed By: #### C OMP #### [place] [address] Alk Phos 130 IU/L High 34-[address] [facility] Comment on above: Performed By: #### C OMP #### [place] [address] ALT [Catalytic activity/Vol] 37 U/L Normal -[address] [facility] Comment on above: Performed By: #### C OMP #### [place] [address] Anion gap [Moles/Vol] 10 mmol/L Normal 7-[address] [facility] Comment on above: Performed By: #### C OMP #### [place] [address] AST [Catalytic activity/Vol] 31 U/L Normal 13-[address] [facility] Comment on above: Performed By: #### C OMP #### [place] [address] Bili Total 0.6 mg/dL Normal 0.3-1.[address] [facility] Comment on above: Performed By: #### C OMP #### [place] [address] Calcium [Mass/Vol] 9.4 mg/dL Normal 8.6-10.[address] [facility] Comment on above: Performed By: #### C OMP #### [place] [address] Chloride 103 IU/L Normal 98-[address] [facility] Comment on above: Performed By: #### C OMP #### [place] [address] CO2 [Moles/Vol] 28 mmol/L Normal 21-[address] [facility] Comment on above: Performed By: #### C OMP #### [place] [address] Creatinine [Mass/Vol] 0.79 mg/dL Normal 0.60-1.[address] [facility] Comment on above: Performed By: #### C OMP #### [place] [address] Glucose [Mass/Vol] 108 mg/dL High 70-[address] [facility] Comment on above: Performed By: #### C OMP #### [place] [address] Potassium [Moles/Vol] 4.2 mmol/L Normal 3.4-4.[address] [facility] Comment on above: Performed By: #### C OMP #### [place] [address] Protein [Mass/Vol] 6.8 g/dL Normal 6.0-8.[address] [facility] Comment on above: Performed By: #### C OMP #### [place] [address] Sodium [Moles/Vol] 137 mmol/L Normal 136-[address] [facility] Comment on above: Performed By: #### C OMP #### [place] [address] Urea nitrogen [Mass/Vol] 17 mg/dL Normal 7-[address] [facility] Comment on above: Performed By: #### C OMP #### [place] [address] Urea nitrogen/Creatini ne [Mass ratio] 21.5 mg/mg High 10.0-20.[address] [facility] Comment on above: Performed By: #### C OMP #### [place] [address] Diff Autoon 06-01-2023 Baso Absolute 0.0 x10*3/mcL Normal 0.0-0.2 [facility] Comment on above: Performed By: #### C OMP #### [place] [address] Basophils/100 WBC (Bld) 0.3 % Normal 0.0-1.[address] [facility] Comment on above: Performed By: #### C OMP #### [place] [address] Eos Absolute 0.1 x10*3/mcL Normal 0.0-0.[address] [facility] Comment on above: Performed By: #### C OMP #### [place] [address] Eosinophils/100 WBC (Bld) 1.1 % Normal 0.0-5.[address] [facility] Comment on above: Performed By: #### C OMP #### [place] [address] Lymph Absolute 2.0 x10*3/mcL Normal 1.0-4.8 [facility] Comment on above: Performed By: #### C OMP #### [place] [address] Lymphocytes/100 WBC (Bld) 23.1 % Low 27.2-40.[address] [facility] Comment on above: Performed By: #### C OMP #### [address] [address] [place] Absolute 0.4 x10*3/mcL Normal 0.1-1.1 [facility] Comment on above: Performed By: #### C OMP #### [address] [address] Monocytes/100 WBC (Bld) 5.1 % Normal 3.7-11.[address] [facility] Comment on above: Performed By: #### C OMP #### [address] [address] Neutro Absolute 6.1 x10*3/mcL Normal 1.8-7.7 [facility] Comment on above: Performed By: #### C OMP #### [address] [address] Neutro Auto 70.4 % Normal 47.2-70.[address] [facility] Comment on above: Performed By: #### C OMP #### [address] [address] Plastic Surgery Visit Report on 05-05-2023 Plastic Surgery Visit Report [facility] Plastic Reconstructive Surgery [address], [address] [place] [address] OFFICE VISIT Date of Service: 05/05/23 MR#: [id number] Acct: [id number] Name: LEILADESTINYBERENICE Rep #: [id number] : 1950 Provider: Dr. Apolinar flores MD Age/Sex: 73/F Location: [facility] Status: Signed Intake Vital Signs 05/05/23 14:25 Height 5 ft 6 in Weight: 217 lb BMI 35.0 BP 120/78 Blood Pressure Location Lt brachial Position Sitting Respiration 16 Pulse 70 Pulse Source Monitor Temp 97.7 F L Temp Source Temporal Pulse Oximetry (%) 96 Oxygen Delivery Method room air Intake Visit Reasons: Consult Chief Complaint: Right breast reconsruction consult Snow Groomer Required: No Accompanied by: Is patient in [...] mg PO HS 05/05/23 [History Confirmed 05/05/23] wvhruyks-vce-mbjmz acid 0.4 mg-lycopene 300 mcg-lutein 250 mcg tablet (Complete Multivitamin Adult 50 Plus) 1 tab PO DAILY 05/05/23 [History Confirmed 05/05/23] semaglutide 0.25 mg or 0.5 mg (2 mg/3 mL) subcutaneous pen injector (Ozempic) 0.25 mg subcut QWEEK 05/05/23 [History Confirmed 05/05/23] simvastatin 20 mg tablet 20 mg PO DAILY 05/05/23 [History Confirmed 05/05/23] [facility] Medical History (Updated 05/05/23 @ 15:33 [...] after having undergone reconstruction with a tissue electrician manager. Her initial right mastectomy was done approximately 30 years ago. She underwent placement of a tissue electrician manager in . Her last fill was in . She has a total of 390 cc of saline and the implant which is the capacity of the electrician manager as a permanent prosthesis. Her implant is a [place] smooth round spectrum style 1400. Reference #[id number] has decided to leave the electrician manager and is a permanent implant. We had [...] incontinence Exam Chest Other: Patient with a electrician manager in place on the right breast. The port is palpable in the in (more content not included)... Normal [facility] Urology Office/Clinic Noteon 02-18-2023 Urology Office/Clinic [...] breast cancer History of colonoscopy with polypectomy [place] (myocardial infarction) Morbid obesity with body mass [...] drugs (Rash) Electronically signed by Kevin Joaquin 02/18/23 15:[address] [facility] Urology Office/Clinic Noteon 12-23-2022 Urology Office/Clinic [...] to pharmacy. If too expensive will send Toviaz. Follow-up in 6 weeks for symptom check. I did give her OAB handout and she is going to look over third line therapies as well. Ordered: mirabegron, 1 tabs, Oral, Daily, do not crush or chew, # 30 tabs, 11 Refill(s), Pharmacy: [facility] Problem List/Past Medical History Ongoing Arthritis of left hip CAD (coronary artery disease) Chronic cough Chronic GERD CPAP/BiPAP dependent Cystocele Depression Drug-induced obesity with body mass index (BMI) of 35 to less than 40 Encounter for gynecological examination (general) (routine) without abnormal findings Feeling of incomplete bladder emptying GERD H/O cardiac catheterization History of breast cancer History of colonoscopy with polypectomy Hyperlipidemia IL (myocardial infarction) Morbid obesity with body mass [...] sulfa drugs (Rash) Electronically signed by Yolette Kevin MUNSON 12/23/22 17:[address] [facility] VC CONSULT FOLLOWUPon 2022 VC CONSULT FOLLOWUP Patient: BERENICE NOLASCO Exam Date: 12/16/2022 : 1950 Gender:F Ordering : FREED TcPiero VILLAGRAN . Admission #: [id number] Family : Order #: [id number] CLICK HERE TO VIEW EXAM RADIOLOGY REPORT [...] Schwartz MD on 12/16/2022 at 14:[address] [facility] CBC AUTO DIFFon 09-16-2022 BASO # 0.0 103/ul Normal 0.0-0.1 [facility] Comment on above: Performed By: #### C BC #### [facility] [address] [place] [address] Dr. Danielle Penaloza Basophils/100 WBC (Bld) 0.5 % Normal 0.2-2.0 [facility] Comment on above: Performed By: #### C BC #### [facility] [address] [place] [address] Dr. Danielle Penaloza EO # 0.1 103/ul Normal 0.0-0.7 [facility] Comment on above: Performed By: #### C BC #### [facility] [address] [place] [address] Dr. Danielle Penaloza Eosinophils/100 WBC (Bld) 1.2 % Normal 0.9-7.0 [facility] Comment on above: Performed By: #### C BC #### [facility] [address] [place] [address] Dr. Danielle Penaloza Erythrocyte distribution width (RBC) [Ratio] 14.2 % Normal 11.0-15.0 [facility] Comment on above: Performed By: #### C BC #### [facility] [address] [place] [address] Dr. Danielle Penaloza Hematocrit (Bld) [Volume fraction] 42.5 % Normal 36.0-48.0 [facility] Comment on above: Performed By: #### C BC #### [facility] [address] [place] [address] Dr. Danielle Penaloza Hemoglobin (Bld) [Mass/Vol] 14.1 g/dL Normal 12.0-16.0 [facility] Comment on above: Performed By: #### C BC #### [facility] [address] [place] [address] Dr. Danielle Penaloza IG # 0.02 10e3/ul Normal 0.00-0.03 [facility] Comment on above: Performed By: #### C BC #### [facility] [address] [place] [address] Dr. Danielle Penaloza IG % 0.2 % Normal 0.0-0.5 [facility] Comment on above: Performed By: #### C BC #### [facility] [address] [place] [address] Dr. Danielle Penaloza LYMPH # 1.9 103/ul Normal 1.2-3.8 [facility] Comment on above: Performed By: #### C BC #### [facility] [address] [place] [address] Dr. Danielle Penaloza Lymphocytes/100 WBC (Bld) 23.4 % Normal 20.5-60.0 [facility] Comment on above: Performed By: #### C BC #### [facility] [address] [place] [address] Dr. Danielle Penaloza MANUAL DIFF REQ NO Normal [facility] Comment on above: Performed By: #### C BC #### [facility] [address] [place] [address] Dr. Danielle Penaloza MCH (RBC) [Entitic mass] 28.1 pg Normal 26.7-34.0 [facility] Comment on above: Performed By: #### C BC #### [facility] [address] [place] [address] Dr. Danielle Penaloza MCHC (RBC) [Mass/Vol] 33.2 g/dL Normal 29.9-35.2 [facility] Comment on above: Performed By: #### C BC #### [facility] [address] [place] [address] Dr. Danielle Penaloza MCV (RBC) [Entitic vol] 84.8 fL Normal 81.0-99.0 [facility] Comment on above: Performed By: #### C BC #### [facility] [address] [place] [address] Dr. Danielle Penaloza MONO # 0.5 103/ul Normal 0.3-0.8 [facility] Comment on above: Performed By: #### C BC #### [facility] [address] [place] [address] Dr. Danielle Penaloza Monocytes/100 WBC (Bld) 6.0 % Normal 1.7-12.0 [facility] Comment on above: Performed By: #### C BC #### [facility] [address] [address] [address] Danielle Penaloza NEUT # 5.5 103/ul Normal 1.4-6.5 [facility] Comment on above: Performed By: #### C BC #### [facility] [address] [place] [address] Dr. Danielle Penaloza Neutrophils/100 WBC (Bld) 68.7 % Normal 43.0-75.0 [facility] Comment on above: Performed By: #### C BC #### [facility] [address] [place] [address] Dr. Danielle Penaloza Platelet mean volume (Bld) [Entitic vol] 9.9 fL Normal 9.5-13.5 [facility] Comment on above: Performed By: #### C BC #### [facility] [address] [place] [address] Dr. Danielle Penaloza PLT 186 103/ul Normal 150-450 [facility] Comment on above: Performed By: #### C BC #### [facility] [address] [place] [address] Dr. Danielle Penaloza RBC 5.01 106/ul Normal 4.20-5.40 [facility] Comment on above: Performed By: #### C BC #### [facility] [address] [place] [address] Dr. Danielle Penaloza WBC 8.1 103/ul Normal 4.0-11.0 [facility] Comment on above: Performed By: #### C BC #### [facility] [address] [place] [address] Dr. Danielle Penaloza PROF CHEM 8 (BAS METB)on Anion gap [Moles/Vol] 10.8 mmol/L Normal [facility] Comment on above: Performed By: #### B MP, TSH #### [facility] [address] [place] [address] Dr. Danielle Penaloza Calcium [Mass/Vol] 9.2 mg/dL Normal 8.5-10.1 [facility] Comment on above: Performed By: #### B MP, TSH #### [facility] [address] [address] [address] Danielle Penaloza Chloride [Moles/Vol] 103 mmol/L Normal 98-107 [facility] Comment on above: Performed By: #### B MP, TSH #### [facility] [address] [address] [address] Danielle Penaloza CO2 [Moles/Vol] 30.5 mmol/L Normal 21.0-32.0 [facility] Comment on above: Performed By: #### B MP, TSH #### [facility] [address] [address] [address] Danielle Penaloza Creatinine [Mass/Vol] 0.63 mg/dL Normal 0.55-1.02 [facility] Comment on above: Performed By: #### B MP, TSH #### [facility] [address] [address] [address] Danielle Penaloza EGFR-AF CYMRO >60 Normal >=60 [facility] Comment on above: Performed By: #### B MP, TSH #### [facility] [address] [address] [address] Danielle Penaloza EGFR-NON AF CYMRO >60 Normal >=60 [facility] Comment on above: Performed By: #### B MP, TSH #### [facility] [address] [address] [address] Danielle Penaloza Glucose [Mass/Vol] 101 mg/dL Normal 74-106 [facility] Comment on above: Performed By: #### B MP, TSH #### [facility] [address] [address] [address] Danielle Penaloza Potassium [Moles/Vol] 4.3 mmol/L Normal 3.5-5.1 [facility] Comment on above: Performed By: #### B MP, TSH #### [facility] [address] [address] [address] Danielle Penaloza Sodium [Moles/Vol] 140 mmol/L Normal 136-145 [facility] Comment on above: Performed By: #### B MP, TSH #### [facility] [address] [place], [place] [address] Dr. Danielle Penaloza Urea nitrogen [Mass/Vol] 17.0 mg/dL Normal 7.0-18.0 [facility] Comment on above: Performed By: #### B MP, TSH #### [facility] [address] [address] [address] Danielle Penaloza Urea nitrogen/Creatini ne [Mass ratio] 27.0 mg/mg Normal [facility] Comment on above: Performed By: #### B MP, TSH #### [facility] [address] [address] [address] Danielle Penaloza TSHon 09-16-2022 TSH 2.028 uIU/mL Normal 0.358-3.740 [facility] Comment on above: Performed By: #### B MP, TSH #### [facility] [address] [address] [address] Danielle Penaloza VC COMP CONSULTATIONon 09-16 VC COMP CONSULTATION Patient: BERENICE NOLASCO Exam Date: 09/16/2022 : 1950 Gender:F Ordering : SHAIKH Quirino VILLAGRAN . Admission #: [id number] Family : Order #: [id number] CLICK HERE TO VIEW EXAM RADIOLOGY REPORT [...] arterial disease 5. CEAP: C3, AP, AP, WA PLAN: 1. Use of compression stockings 2. [...] Boudreaux M.D. on 09/16/2022 at 15:[address] [facility] VC VENOUS REFLUX CHARLIE LMTon 0 09-16-2022 VC VENOUS REFLUX CHARLIE LMT Patient: BERENICE NOLASCO Exam Date: 09/16/2022 : 1950 Gender:F Ordering : SHAIKH Quirino VILLAGRAN . Admission #: [id number] Family : Order #: [id number] CLICK HERE TO VIEW EXAM RADIOLOGY REPORT [...] thrombus. Compressibility: Normal. Flow: Deep venous reflux. [employer] Controls Operator: Prox medial lower leg perf measures 4.3 [...] Boudreaux M.D. on 09/16/2022 at 15:[address] [facility] XR CHEST PA AND LATERALon XR [...] Degenerative changes of the thoracic spine. Normal [facility] XR Chest PA and Lateralon Findings and [...] abnormality. Degenerative changes of the thoracic spine. [employer] [facility] Study observation (narrative) [employer] XR Chest PA and LateralOrder ed By: Silvestre Rivera on 09-15-2022 [facility]: ECHOCARDIO M/2D COMPLETEon 1 ECHOCARDIO M/2D COMPLETE Patient: BERENICE NOLASCO Exam Date: 06/22/2022 : 1950 Gender:F Ordering : SHAIKH Quirino VILLAGRAN . Admission #: [id number] Family : APOLINAR HENRY Order #: [id number] CLICK HERE TO VIEW EXAM ECHOCARDIOGRAM REPORT [...] Mc M.D. on 06/23/2022 at 14:[address] [facility] FASTINGon 06-16-2022 A:G RATIO 1.6 RATIO Normal 1.3-2.2 [facility] Comment on above: Performed By: #### C MPF #### Testing performed at [address] [address] ALBUMIN 4.4 G/dl Normal 3.5-5.0 [facility] Comment on above: Performed By: #### C MPF #### Testing performed at [address] [address] ALP [Catalytic activity/Vol] 124 U/L Normal 38-126 [facility] Comment on above: Performed By: #### C MPF #### Testing performed at [address] [address] ALT [Catalytic activity/Vol] 35 U/L High <35 [facility] Comment on above: Performed By: #### C MPF #### Testing performed at [address] [address] AST [Catalytic activity/Vol] 31 U/L Normal 14-36 [facility] Comment on above: Performed By: #### C MPF #### Testing performed at [address] [address] Bilirubin [Mass/Vol] 0.5 mg/dL Normal 0.2-1.3 [facility] Comment on above: Performed By: #### C MPF #### Testing performed at [address] [address] Calcium [Mass/Vol] 8.8 mg/dL Normal 8.4-10.2 [facility] Comment on above: Performed By: #### C MPF #### Testing performed at [address] [address] Chloride [Moles/Vol] 102 mmol/L Normal 98-107 [facility] Comment on above: Result Comment: Mendez caraballo note: Triglyceride levels of 600mg/dL or higher may positively bias chloride results by approximately 2.1 mmol Performed By: #### C MPF #### [place] [address] CO2 [Moles/Vol] 28 mmol/L Normal 22-30 [facility] Comment on above: Performed By: #### C MPF #### [place] [address] Creatinine [Mass/Vol] 0.60 mg/dL Low 0.7-1.2 [facility] Comment on above: Performed By: #### C MPF #### [place] [address] EST. GFR, 126 ml/min/1.73sq.m Normal [facility] Comment on above: Performed By: #### C MPF #### [place] [address] EST. GFR,Non 104 ml/min/1.73sq.m Normal [facility] Comment on above: Performed By: #### C MPF #### [place] [address] GFR Information Average GFR for 70+ years old = 75. Normal [facility] Comment on above: Result Comment: Director Of Institutional Sales kurtis Kidney disease, GFR = <60. Kidney failure, GFR = <15. The GFR estimate is not adjusted for extreme body surface area or acute process, nor has it been validated for women or ethnic groups other than and . Testing performed at [address] [place] [address] Performed By: #### C MPF #### [place] [address] Glucose [Mass/Vol] 98 mg/dL Normal 70-100 [facility] Comment on above: Result Comment: NORMAL <100 mg/dL PREDIABETES 101-126 mg/dL DIABETES 126 mg/dL or higher Performed By: #### C MPF #### Testing performed at [address] [address] [place] [address] Potassium [Moles/Vol] 4.3 mmol/L Normal 3.5-5.1 [facility] Comment on above: Performed By: #### C MPF #### Testing performed at [facility] [address] [place] [address] Protein [Mass/Vol] 7.2 g/dL Normal 6.3-8.2 [facility] Comment on above: Performed By: #### C MPF #### Testing performed at [facility] [address] [place] [address] Sodium [Moles/Vol] 139 mmol/L Normal 137-145 [facility] Comment on above: Performed By: #### C MPF #### Testing performed at [facility] [address] [place] [address] Urea nitrogen [Mass/Vol] 14 mg/dL Normal 7-20 [facility] Comment on above: Performed By: #### C MPF #### Testing performed at [address] [address] FREE T3on 03-24-2022 FREE T3 2.69 pg/mlL Normal 2.18-3.98 [facility] Comment on above: Performed By: #### B MP, TSH #### [facility] [address] [address] [address] Danielle Penaloza TSHon 03-24-2022 TSH 2.001 uIU/mL Normal 0.358-3.740 The [facility] Comment on above: Performed By: #### T SH, FT3 #### [facility] [address] [address] [address] Danielle Penaloza Covid-19 PCR (CVDTB)on 02-12 SARS-CoV-2 (COVID-19) RNA ADELAIDA+probe Ql (Unsp spec) Not detected Normal NOT DETECTED [facility] Comment on above: Result Comment: This test is not yet approved or cleared by the [place] FDA. When there are no FDA-approved or cleared tests available, and other criteria are met, FDA can make tests available under an emergency access mechanism called an Emergency Use Authorization (EUA). The EUA for this test is supported by the Medical Records Secretary of Health and Human Service's (HHS's) declaration [...] consistent with SARS-CoV-2. Performed By: #### C [facility] #### [facility] [address] [place] [address] Dr. Danielle Penaloza Operative Reporton 0 Operative Report MR#: [id number] [facility] Pt. Name: Berenice Nolasco Room #: 0C Discharge Date: Birthdate: 1950 OPERATIVE REPORT DATE OF SURGERY: 06/07/2020 SURGEON: Adam Skinner M.D. PREOPERATIVE DIAGNOSIS: Right knee medial and lateral meniscal tears. POSTOPERATIVE DIAGNOSES: 1. Right knee medial and lateral meniscal tears. 2. Right knee Hoffa's fat pad hypertrophy and inflammation. SECOND COOK AND BAKER: Bindu Rick M.D. ANESTHESIA: General. PROCEDURES PERFORMED: [...] Skinner M.D. Date Trans: 06/07/2020 09:06 A/irena [id number] cc: Trino Montiel M.D. [address] [place] [address] Normal [facility] POC GLUCOSE LABon 06-07-2020 Glucose [Mass/Vol] 109 mg/dL High 70-100 [facility] Comment on above: Performed By: #### 8 [id number] #### [facility] [address] [facility] [place] [place] [address], [facility] *SARS-CoV-2 COVID-19on 06-04 [id number] Not Detected Normal Not Detected [facility] Comment on above: Order Comment: The A ptima SARS-CoV-2 assay is a nucleic acid amplification test intended for the qualitative detection of RNA from SARS-CoV-2 isolated and purified from nasopharyngeal (CRUST SORTER),oropharyngeal (OP), nasal swab, sputum, and bronchoalveolar lavage (BAL) specimens from patients with signs and symptoms of infection who are suspected of COVID-19. Results are for the identification of SARS-CoV-2 RNA. The SARS-CoV-2 RNA is generally detectable during the acute phase of infection. The Aptima SARS-CoV-2 Assay on the [employer] system is intended for use by laboratory personnel specifically instructed and trained in the operation of the [employer] system. The Aptima SARS-CoV-2 assay is [...] information. Performed By: #### 3 1792 #### [facility] [address] [facility] [place] [address], [facility] KNEE RIGHT 3 VWSon 05-11-202 0 KNEE RIGHT 3 S [facility] Department of Radiology [address] [place] [address] Patient Name: BERENICE NOLASCO : 1950 Sex: F Age: Race: White Pt. Location: Patient Status: O Ordered Date: 01/22/2020 11:35:00 AM Completed Date: 01/22/2020 11:43 AM Requesting Provider: ADAM SKINNER Attending Provider: ADAM SKINNER Report Copy To: TRINO MONTIEL Signs & Symptoms: S83.281A Oth tear of lat mensc, current injury, right knee, init I10 History: Nina Comments: Exam: KNEE RIGHT 3 [facility] KNEE RIGHT 3 S 01/22/2020 11:43 AM CLINICAL INDICATIONS: S83.281A Oth [...] reviewed the images and reports Electronically signed: DEALNO BLANCO. Transcribed by: [email or web address], User Resident: YONY PAN Electronically Signed by: DELANO BLANCO @ 01/22/2020 02:18 PM I personally read this/these film(s) with this resident Normal [facility] ED PROV NOTEon 08-06-2018 Protein mass conc HNO ID: [id number] thor: Cas Foxervice: (none)Author Type: PhysicianType: ED Provider NotesFiled: 08/13/2018 10:43 AMNote Text:[facility], [place] [address]AORIWH INFORMATION MANAGEMENTEMERGENCY DEPARTMENT REPORTPatient: BERENICE NOLASCO JOEL A M.D. as dictated by GRUPO BROUSSARD, MELINA-[id number] FStatus: DEP ER EDDate of Service: [...] paresthesia. No weakness of extremities. [facility]ulates [facility].PHYSICAL EXAMINATIONHer blood pressure is 122/77, temperature 99.1, [...] M.D. Signed By: CAS CANTU M.D.Tests performed at:[facility] [place] [address] [phone] Normal [facility] ED REPORTon 08-06-2018 ED REPORT [place], [place] [id number] INFORMATION MANAGEMENTEMERGENCY DEPARTMENT REPORTPatient: BERENICE NOLASCO JOEL A M.D. as dictated by GRUPO BROUSSARD, MELINA-[id number][id number] FStatus: DEP ER EDDate of Service: 08/05/18CHIEF COMPLAINTThis is a 68-year-old female who presents with a headache and nausea for 2 days.HISTORY OF PRESENT ILLNESSThe patient is visiting family from out of town. She has not had an appetite, has beennauseous, and had a headache for the last few days, so became concerned and presented tot emergency room.PAST MEDICAL HISTORYPast medical history of [...] of the plan of care will be dischargedhome.Bennett chung sinusitis. 08/13/18 1027 CAS CANTU M.D.cc: CAS CANTU M.D. << Signature on File>> Reported By: CAS CANTU M.D. Signed By: CAS CANTU M.D.Tests performed at:[address] [phone] Normal [facility] 08-05-2018 No Growth Normal [facility] Comment on above: Performed By: #### L 100.0440 ####ML [facility] [address] [place] [address] No Growth Normal [facility] Comment on above: Performed By: #### M 105.0000 ####ML [facility] VX[address] [place] [address] [facility] Anion gap 3 molar conc 17.5 mmol/L Normal 15-22 [facility] Comment on above: Performed By: #### L 100.0010, L301.0120 ####ML - [id number] [place] [address] Calcium mass conc 8.7 mg/dL Low 8.8-10.2 [facility] Comment on above: Performed By: #### L 100.0010, L301.0120 ####ML - OFJJTZXACI307 [place] [address] Chloride molar conc 101 mmol/L Normal 98-107 [facility] Comment on above: Performed By: #### L 100.0010, L301.0120 ####ML - [id number] [place] [address] Creatinine mass conc 0.53 mg/dL Normal 0.50-0.90 [facility] Comment on above: Performed By: #### L 100.0010, L301.0120 ####ML - OORPLRBRPP515 [place] [address] eGFR if AFR MELISSA > 60 ml/min/1.73m2 Normal [facility] Comment on above: Result Comment: eGFR >= 60 Indicates normal kidney function. * eGFR IS AN ESTIMATE * (AFR MELISSA = ) (non-AFR AM = NON-) _ MDRD calculation used in the eGFR should not be used to dose medications. For further limitations of the eGFR please refer to the Physician Website or the National Kidney Disease Education Program website (www.nkdep.nih.gov). Performed By: #### L 100.0010, L301.0120 ####[facility] [place] [address] eGFR nonAFR Melissa > 60 ml/Min/1.73m2 Normal [facility] Comment on above: Performed By: #### L 100.0010, L301.0120 ####[facility] [address] [place] [address] Glucose mass conc 122 mg/dL High 82-115 [facility] Comment on above: Performed By: #### L 100.0010, L301.0120 ####[address] [address] Potassium molar conc 3.5 mmol/L Normal 3.5-5.0 [facility] Comment on above: Performed By: #### L 100.0010, L301.0120 ####[facility] Q[address]TERFOD9[address] [place] [address] Sodium molar conc 138 mmol/L Normal 135-145 [facility] Comment on above: Performed By: #### L 100.0010, L301.0120 ####[facility] [address] [place] [address] TCO2 23 mmol/L Normal 22-29 [facility] Comment on above: Performed By: #### L 100.0010, L301.0120 ####[facility] RI[address] [place] [address] Urea nitrogen mass conc 14 mg/dL Normal 8-23 [facility] Comment on above: Performed By: #### L 100.0010, L301.0120 ####[facility] F[address] [place] [address] CBCon 08-05-2018 Basophils Auto #/vol (Bld) 0.00 x10(3) Normal 0.00-0.10 [facility] Comment on above: Performed By: #### L 200.0010 ####ML [facility] HX[address]GE[address] [place] [address] Basophils/100 WBC Auto (Bld) 0.2 % Normal 0.0-1.0 [facility] Comment on above: Performed By: #### L 200.0010 ####[address] [address] Eosinophils Auto #/vol (Bld) 0.00 x10(3) Normal 0.00-0.54 [facility] Comment on above: Performed By: #### L 200.0010 ####ML [address] [address] Eosinophils/100 WBC Auto (Bld) 0.1 % Low 0.5-4.9 [facility] Comment on above: Performed By: #### L 200.0010 ####ML [address] [address] Erythrocyte distribution width Auto Ratio (RBC) 15.7 % Normal 12.5-15.7 [facility] Comment on above: Performed By: #### L 200.0010 ####ML [facility] [address] [place] [address] Hematocrit Auto Volume Fraction (Bld) 39.4 % Normal 36.0-48.0 [facility] Comment on above: Performed By: #### L 200.0010 ####ML [facility] [address] [place] [address] Hemoglobin mass conc (Bld) 13.8 g/dL Normal 12.0-16.0 [facility] Comment on above: Performed By: #### L 200.0010 ####ML [facility] SW[address]AR[address] [place] [address] Lymphocytes Auto #/vol (Bld) 0.50 x10(3) Low 1.00-3.50 [facility] Comment on above: Performed By: #### L 200.0010 ####ML [facility] [id number] [place] [address] Lymphocytes/100 WBC Auto (Bld) 7.8 % Low 16.0-48.0 [facility] Comment on above: Performed By: #### L 200.0010 ####ML [facility] [id number] [place] [address] MCH Auto Entitic mass (RBC) 27.6 pg Low 28.5-32.9 [facility] Comment on above: Performed By: #### L 200.0010 ####ML [address] [address] MCHC Auto mass conc (RBC) 35.1 g/dL Normal 33.0-36.0 [facility] Comment on above: Performed By: #### L 200.0010 ####ML [address] [address] MCV Auto Entitic volume (RBC) 78.7 fL Low 80.0-99.0 [facility] Comment on above: Performed By: #### L 200.0010 ####ML [address] [address] Monocytes Auto #/vol (Bld) 0.40 x10(3) Normal 0.30-0.80 [facility] Comment on above: Performed By: #### L 200.0010 ####ML [facility] [id number] [place] [address] Monocytes/100 WBC Auto (Bld) 5.4 % Normal 4.3-11.2 [facility] Comment on above: Performed By: #### L 200.0010 ####ML [address] [address] Neutrophils Auto #/vol (Bld) 5.70 x10(3) Normal 1.40-6.50 [facility] Comment on above: Performed By: #### L 200.0010 ####ML [facility] [id number] [place] [address] Neutrophils/100 WBC Auto (Bld) 86.5 % High 45.0-73.0 [facility] Comment on above: Performed By: #### L 200.0010 ####ML [facility] [place] [address] Platelet mean volume Auto Entitic volume (Bld) 8.1 fL Normal 7.5-9.5 [facility] Comment on above: Performed By: #### L 200.0010 ####ML [facility] [place] [address] Platelets Auto #/vol (Bld) 115 X10(3) Low 150-450 [facility] Comment on above: Performed By: #### L 200.0010 ####ML [address] [address] RBC Auto #/vol (Bld) 5.00 x10(6) Normal 3.30-5.00 [facility] Comment on above: Performed By: #### L 200.0010 ####ML [facility] [place] [address] WBC Auto #/vol (Bld) 6.6 x10(3) Normal 4.5-10.0 [facility] Comment on above: Performed By: #### L 200.0010 ####[address] [address] CHEST (TWO VIEWS) - CXRon CHEST (TWO VIEWS) - CXR [facility] [place], [place] [address]Xefr: BERENICE NOLASCO KPhys: GRUPO BROUSSARD CRUST SORTERNadiaC (ED): 50 Age: 68 Sex: FAcct: [id number] Loc: EDExam Date: 08/05/18 Status: REG ERRadiology No.: [id number] Number: [id number] # Type/[id number] RAD / CHEST (TWO VIEWS) - CXRTwo-view chestClinical statement: Weakness. History of right mastectomyComparison study: NoneFindings:The heart size is normal. The left diaphragm is elevated. There is nopulmonary consolidation. No pneumothorax. Multilevel degenerative changes seenin the spine. Surgical clips identified in the right axilla.Impression:Elevated left diaphragm. No focal consolidationProfessional interpretation provided by [facility] [address].Thank you for this referral.< >Reported By: XANDER MARTINEZ M.D.Signed In NovaPro By: XANDER MARTINEZ M.D. << Signature on File>> Reported By: XANDER MARTINEZ M.D. Signed By: XANDER MARTINEZ M.D.Tests performed at:[address] [phone] Normal [facility] CT BRAIN WITHOUT CONTRAST- C TBon 08-05-2018 CT BRAIN WITHOUT CONTRAST- CTB [address] [address]Bbcn: BERENICE NOLASCO [employer] [place] [place]: GRUPO BROUSSARD CRUST SORTER-C (ED): 50 Age: 68 Sex: FAcct: [id number] Loc: EDExam Date: 08/05/18 Status: REG ERRadiology No.: [id number] Number: [id number] # Type/[id number] CT / CT BRAIN WITHOUT CONTRAST- CTBCT [...] algorithm.Professional interpretation provided by [facility] [address].Thank you for this referral.< >Reported By: XANDER MARTINEZ M.D.Signed In NovaPro By: XANDER MARTINEZ M.D. << Signature on File>> Reported By: XANDER MARTINEZ M.D. Signed By: XANDER MARTINEZ M.D.Tests performed at:[address] [phone] Normal [facility] ED PROV NOTEon 08-05-2018 Protein mass conc HNO ID: [id number] thor: Cas Kernice: (none)Author Type: PhysicianType: ED Provider NotesFiled: 08/13/2018 10:42 AMNote Text:[place], [place] [address]ADQWKC INFORMATION MANAGEMENTEMERGENCY DEPARTMENT REPORTPatient: BERENICE NOLASCO JOEL A M.D.[id number] FStatus: DEP ER EDDate of Service: 08/05/18CHIEF [...] are downgoing. There is no pronator drift. Bcocvbvpwiqh-ti-flkz, cvml-ak-katl.EMERGENCY DEPARTMENT COURSESent for CT which was negative. Labs were all pretty much negative and noUTI.CLINICAL DIAGNOSISCephalgia.Ok arged to home to follow up with the family doctor and return ifproblems of any kind. She is treated for what is presumed to be a sinusinfection as well with antibiotics. She can return if worse or problemsof any kind. 08/13/18 1027 CAS CANTU M.D.cc: CAS CANTU M.D. << Signature on File>> Reported By: CAS CANTU M.D. Signed By: CAS CANTU M.D.Tests performed at:[address] [phone] Normal [facility] EMERGENCY DEPARTMENT REPORTo n 08-05-2018 EMERGENCY DEPARTMENT REPORT [place] [address]WMRVJZ INFORMATION MANAGEMENTEMERGENCY DEPARTMENT REPORTPatient: BERENICE NOLASCO JOEL A M.D.[id number]/[id number] FStatus: DEP ER EDDate of Service: 08/05/18CHIEF [...] are downgoing. There is no pronatordrift. Normal oxonmn-tr-tcjk, lbwy-vd-nnke.EMERGENCY DEPARTMENT COURSESent for CT which was negative. Labs were all pretty much negative and no UTI.CLINICAL DIAGNOSISCephalgia.Ok arged to home to follow up with the family doctor and return if problems of any kind.She is treated for what is presumed to be a sinus infection as well with antibiotics. Shecan return if worse or problems of any kind. 08/13/18 1027 CAS CANTU M.D.cc: CAS CANTU M.D. << Signature on File>> Reported By: CAS CANTU M.D. Signed By: CAS CANTU M.D.Tests performed at:[address] [phone] Normal [facility] FLU A & Bon 08-05-2018 FLU A Negative Normal NEGATIVE [facility] Comment on above: Order Comment: What is the source+ SWAB Performed By: #### L 400.0006 ####[address] [address] FLU B Negative Normal NEGATIVE [facility] Comment on above: Order Comment: What is the source+ SWAB Result Comment: Infe ction due to Flu A and Flu B can not be ruled out. Flu Aand/or Flu B antigen in the sample may be below detectionlimit of the test. The gold standard for Flu A and Flu B vicente viral culture. Performed By: #### L 400.0006 ####ML [address] [address] LACTIC ACIDon 08-05-2018 Lactate molar conc 0.8 mmol/L Normal 0.5-2.0 [facility] Comment on above: Performed By: #### L 100.0440 ####ML - [id number] [place] [address] TROPONIN Ton 08-05-2018 Troponin T.cardiac mass conc ug/L Normal 0-0.010 [facility] Comment on above: Performed By: #### L 100.0010, L301.0120 ####ML - [id number] [place] [address] UA W/C&Son 08-05-2018 Bilirubin Ql (U) Negative Normal NEGATIVE [facility] Comment on above: Order Comment: Urine Specimen Source+ CLEAN CATCH Performed By: #### L 200.3001 ####ML - [id number] [place] [address] Color Nom (U) YELLOW Normal YELLOW [facility] Comment on above: Order Comment: Urine Specimen Source+ CLEAN CATCH Performed By: #### L 200.3001 ####ML - [id number] [place] [address] Glucose Ql (U) Negative Normal NEGATIVE [facility] Comment on above: Order Comment: Urine Specimen Source+ CLEAN CATCH Performed By: #### L 200.3001 ####ML - [id number] [place] [address] Hemoglobin Test strip Ql (U) Negative Normal NEGATIVE [facility] Comment on above: Order Comment: Urine Specimen Source+ CLEAN CATCH Performed By: #### L 200.3001 ####ML - [id number] [place] [address] Leukocyte esterase Test strip Ql (U) Negative Normal NEGATIVE [facility] Comment on above: Order Comment: Urine Specimen Source+ CLEAN CATCH Performed By: #### L 200.3001 ####ML - [id number] [place] [address] Nitrite Test strip Ql (U) Negative Normal NEGATIVE [facility] Comment on above: Order Comment: Urine Specimen Source+ CLEAN CATCH Performed By: #### L 200.3001 ####ML - [id number] [place] [address] pH Test strip (U) 6.0 [pH] Normal 5.0-8.0 [facility] Comment on above: Order Comment: Urine Specimen Source+ CLEAN CATCH Performed By: #### L 200.3001 ####ML - UH [id number] [place] [address] Protein Test strip Ql (U) Negative Normal NEGATIVE [facility] Comment on above: Order Comment: Urine Specimen Source+ CLEAN CATCH Performed By: #### L 200.3001 ####ML - [facility] [id number] [place] [address] URINE APPEARANC CLEAR Normal CLEAR [facility] Comment on above: Order Comment: Urine Specimen Source+ CLEAN CATCH Performed By: #### L 200.3001 ####ML - [facility] [id number] [place] [address] URINE KETONE Negative Normal NEGATIVE [facility] Comment on above: Order Comment: Urine Specimen Source+ CLEAN CATCH Performed By: #### L 200.3001 ####ML - [facility] [id number] [place] [address] URINE SPECIFIC <=1.005 Normal 1.001-1.035 [facility] Comment on above: Order Comment: Urine Specimen Source+ CLEAN CATCH Performed By: #### L 200.3001 ####ML - [facility] [id number] [place] [address] URINE UROBILINO 0.2 EU/DL Normal 0.2-1.0 [facility] Comment on above: Order Comment: Urine Specimen Source+ CLEAN CATCH Performed By: #### L 200.3001 ####ML - [facility] [id number] [place] [address] Coding Summary.on 07-28-2017 Coding Summary. CODING DATE: 017 [facility] STATUS: PAYOR: Medicare ADMIT DX: REASON [...] Viv Good Date Saved: 07/28/2017 10:55 am [facility] Vital Signs Date Time Vital Sign Value Performing Clinician Facility 07-21-2023 13:00-0500 Body height 167.64 cm Adriana Fitt Other [employer] Other 07-21-2023 13:00-0500 Body mass index (BMI) [Ratio] 33.52 kg/m2 Adriana Fitt Other [employer] Other 07-21-2023 13:00-0500 Body weight 94.21 kg Adriana Fitt Other [employer] Other 07-05-2023 14:15-0400 Body height 167.64 cm Susanne Missler Other [employer] Other 07-05-2023 14:15-0400 Body mass index (BMI) [Ratio] 33.62 kg/m2 Susanne Missler Other [employer] Other 07-05-2023 14:15-0400 Body weight 94.48 kg Susanne Missler Other [employer] Other 07-05-2023 14:15-0400 Diastolic blood pressure 87 mm[Hg] Susanne Missler Other [employer] Other 07-05-2023 14:15-0400 Respiratory rate 18 /min Susanne Missler Other [employer] Other 07-05-2023 14:15-0400 SaO2% (BldA) [Mass fraction] 93 % Susanne Missler Other [employer] Other 07-05-2023 14:15-0400 Systolic blood pressure 133 mm[Hg] Susanne Missler Other [employer] Other 06-30-2023 15:08-0400 Body height 167.[address] Apolinar Henry Work Phone: [facility] 06-30-2023 15:08-0400 Body mass index (BMI) [Ratio] 33.5 kg/m2 Dr. Apolinar Henry Work Phone: [facility] 06-30-2023 15:08-0400 Body temperature 97.3 [degF] Dr. Apolinar Henry Work Phone: [facility] 06-30-2023 15:08-0400 Body weight 94.[address] Apolinar Henry Work Phone: [facility] 06-30-2023 15:08-0400 Diastolic blood pressure 81 mm[Hg] Dr. Apolinar Henry Work Phone: [facility] 06-30-2023 15:08-0400 Heart rate 65 /min Dr. Apolinar Henry Work Phone: [facility] 06-30-2023 15:08-0400 Respiratory rate 16 /min Dr. Apolinar Henry Work Phone: [facility] 06-30-2023 15:08-0400 SaO2% (BldA) [Mass fraction] 94 % Dr. Apolianr Henry Work Phone: [facility] 06-30-2023 15:08-0400 Systolic blood pressure 135 mm[Hg] Dr. Apolinar Henry Work Phone: [facility] 05-27-2023 10:00-0400 Body height 167.64 cm Adriana Lyn Other [employer] Other 05-27-2023 10:00-0400 Body mass index (BMI) [Ratio] 34.65 kg/m2 Adriana Trammellt Other [employer] Other 05-27-2023 10:00-0400 Body weight 97.39 kg Adriana Lyn Other [employer] Other 05-05-2023 14:25-0400 Body height 167.[address] Apolinar Henry Work Phone: [facility] 05-05-2023 14:25-0400 Body mass index (BMI) [Ratio] 35 kg/m2 Dr. Apolinar Henry Work Phone: [facility] 05-05-2023 14:25-0400 Body temperature 97.7 [degF] Dr. Apolinar Henry Work Phone: [facility] 05-05-2023 14:25-0400 Body weight 98.[address] Apolinar Henry Work Phone: [facility] 05-05-2023 14:25-0400 Diastolic blood pressure 78 mm[Hg] Dr. Apolinar Henry Work Phone: [facility] 05-05-2023 14:25-0400 Heart rate 70 /min Dr. Apolinar Henry Work Phone: [facility] 05-05-2023 14:25-0400 Respiratory rate 16 /min Dr. Apolinar Henry Work Phone: [facility] 05-05-2023 14:25-0400 SaO2% (BldA) [Mass fraction] 96 % Dr. Apolinar Henry Work Phone: [facility] 05-05-2023 14:25-0400 Systolic blood pressure 120 mm[Hg] Dr. Apolinar Henry Work Phone: [facility] 03-15-2023 12:45-0400 Body height 167.64 cm Susanne Jordan Other [employer] Other 03-15-2023 12:45-0400 Body mass index (BMI) [Ratio] 36.42 kg/m2 Susanne Missler Other [employer] Other 03-15-2023 12:45-0400 Body weight 102.38 kg Susanne Missler Other [employer] Other 03-15-2023 12:45-0400 Diastolic blood pressure 84 mm[Hg] Susanne Missler Other [employer] Other 03-15-2023 12:45-0400 Respiratory rate 18 /min Susanne Missler Other [employer] Other 03-15-2023 12:45-0400 SaO2% (BldA) [Mass fraction] 96 % Susanne Missler Other [employer] Other 03-15-2023 12:45-0400 Systolic blood pressure 131 mm[Hg] Susanne Missler Other [employer] Other 11-18-2022 14:58-0500 Body height 167.6 cm Apolinar Henry MD Work Phone: [employer] 11-18-2022 14:58-0500 Body temperature 97 [degF] Apolinar Henry MD Work Phone: [employer] 11-18-2022 14:58-0500 Diastolic blood pressure 83 mm[Hg] Apolinar Henry MD Work Phone: [employer] 11-18-2022 14:58-0500 Heart rate 78 /min Apolinar Henry MD Work Phone: [employer] 11-18-2022 14:58-0500 Systolic blood pressure 143 mm[Hg] Apolinar Henry MD Work Phone: 3(356)711-469716 [place] [address] 10-21-2022 13:46-0500 Body height 167.6 cm Apolinar Henry MD Work Phone: 2(436)678-030816 [place] [address] 10-21-2022 13:46-0500 Body temperature 97.3 [degF] Apolinar Henry MD Work Phone: 3(003)781-495616 [place] [address] 10-21-2022 13:46-0500 Diastolic blood pressure 86 mm[Hg] Apolinar Henry MD Work Phone: 3(793)116-148316 [place] [address] 10-21-2022 13:46-0500 Heart rate 76 /min Apolinar Henry MD Work Phone: 5(903)876-613716 [place] [address] 10-21-2022 13:46-0500 Systolic blood pressure 142 mm[Hg] Apolinar Henry MD Work Phone: 4(901)103-220516 [place] [address] 10-07-2022 14:27-0500 Body height 167.6 cm Apolinar Henry MD Work Phone: 3(386)860-696416 [place] [address] 10-07-2022 14:27-0500 Body temperature 97.9 [degF] Apolinar Henry MD Work Phone: 5(118)719-038716 [place] [address] 10-07-2022 14:27-0500 Diastolic blood pressure 81 mm[Hg] Apolinar Henry MD Work Phone: 5(190)614-821716 [place] [address] 10-07-2022 14:27-0500 Heart rate 74 /min Apolinar Henry MD Work Phone: 0(442)047-466916 [place] [address] 10-07-2022 14:27-0500 Systolic blood pressure 140 mm[Hg] Apolinar Henry MD Work Phone: 7(468)307-648716 [place] [address] 09-23-2022 14:36-0500 Body height 167.6 cm Apolinar Henry MD Work Phone: 5(409)615-024016 [place] [address] 09-23-2022 14:36-0500 Body mass index (BMI) [Ratio] 35.83 kg/m2 Apolinar Henry MD Work Phone: 5(965)605-451416 [place] [address] 09-23-2022 14:36-0500 Body temperature 97.3 [degF] Apolinar Henry MD Work Phone: 3(862)461-023616 [place] [address] 09-23-2022 14:36-0500 Body weight 100.7 kg Apolinar Henry MD Work Phone: 2(099)760-740316 [place] [address] 09-23-2022 14:36-0500 Diastolic blood pressure 97 mm[Hg] Apolinar Henry MD Work Phone: 1(983)264-303316 [place] [address] 09-23-2022 14:36-0500 Heart rate 82 /min Apolinar Henry MD Work Phone: 4(115)188-212616 [place] [address] 09-23-2022 14:36-0500 Systolic blood pressure 152 mm[Hg] Apolinar Henry MD Work Phone: 5(552)567-707916 [place] [address] 08-12-2022 15:03-0500 Body height 167.6 cm Apolinar Henry MD Work Phone: 9(148)604-106816 [place] [address] 08-12-2022 15:03-0500 Body mass index (BMI) [Ratio] 35.83 kg/m2 Apolinar Henry MD Work Phone: 8(407)753-045416 [place] [address] 08-12-2022 15:03-0500 Body temperature 96.69 [degF] Apolinar Henry MD Work Phone: 1(490)305-044116 [place] [address] 08-12-2022 15:03-0500 Body weight 100.7 kg Apolinar Henry MD Work Phone: 7(202)880-012516 [place] [address] 08-05-2022 14:20-0500 Body height 167.6 cm Apolinar Henry MD Work Phone: 2(325)253-746016 [place] [address] 08-05-2022 14:20-0500 Body mass index (BMI) [Ratio] 35.83 kg/m2 Apolinar Henry MD Work Phone: 4(831)540-800016 [place] [address] 08-05-2022 14:20-0500 Body temperature 97.2 [degF] Apolinar Henry MD Work Phone: 4(343)149-210116 [place] [address] 08-05-2022 14:20-0500 Body weight 100.7 kg Apolinar Henry MD Work Phone: 3(220)760-667716 [place] [address] 08-05-2022 14:20-0500 Diastolic blood pressure 90 mm[Hg] Apolinar Henry MD Work Phone: 6(184)191-014716 [place] [address] 08-05-2022 14:20-0500 Heart rate 75 /min Apolinar Henry MD Work Phone: 4(132)882-415216 [place] [address] 08-05-2022 14:20-0500 Systolic blood pressure 156 mm[Hg] Apolinar Henry MD Work Phone: 7(401)327-200116 [place] [address] 07-22-2022 13:23-0500 Body height 167.6 cm Apolinar Henry MD Work Phone: 8(198)123-500216 [place] [address] 07-22-2022 13:23-0500 Body mass index (BMI) [Ratio] 35.83 kg/m2 Apolinar Henry MD Work Phone: 3(234)887-562116 [place] [address] 07-22-2022 13:23-0500 Body temperature 97.81 [degF] Apolinar Henry MD Work Phone: 4(390)740-209216 [place] [address] 07-22-2022 13:23-0500 Body weight 100.7 kg Apolinar Henry MD Work Phone: 0(416)506-436416 [place] [address] 07-22-2022 13:23-0500 Diastolic blood pressure 80 mm[Hg] Apolinar Henry MD Work Phone: 7(111)250-492416 [place] [address] 07-22-2022 13:23-0500 Heart rate 69 /min Apolinar Henry MD Work Phone: 6(324)365-802316 [place] [address] 07-22-2022 13:23-0500 Systolic blood pressure 133 mm[Hg] Apolinar Henry MD Work Phone: 1(873)295-663562 [place] [address] 07-15-2022 13:33-0400 Body height 167.6 cm Apolinar Henry MD Work Phone: 0(507)559-137216 [place] [address] 07-15-2022 13:33-0400 Body mass index (BMI) [Ratio] 35.83 kg/m2 Apolinar Henry MD Work Phone: 9(541)979-748716 [place] [address] 07-15-2022 13:33-0400 Body temperature 97.9 [degF] Apolinar Henry MD Work Phone: 9(711)537-376016 [place] [address] 07-15-2022 13:33-0400 Body weight 100.7 kg Apolinar Henry MD Work Phone: 3(055)426-806216 [place] [address] 07-15-2022 13:33-0400 Diastolic blood pressure 83 mm[Hg] Apolinar Henry MD Work Phone: 8(906)360-139716 [place] [address] 07-15-2022 13:33-0400 Heart rate 75 /min Apolinar Henry MD Work Phone: 6(050)774-826616 [place] [address] 07-15-2022 13:33-0400 Systolic blood pressure 140 mm[Hg] Apolinar Henry MD Work Phone: 1(913)990-742716 [place] [address] 07-09-2022 16:55-0400 Diastolic blood pressure 79 mm[Hg] Apolinar Henry MD Work Phone: 0(635)698-406416 [place] [address] 07-09-2022 16:55-0400 Heart rate 87 /min Apolinar Henry MD Work Phone: 7(297)190-475916 [place] [address] 07-09-2022 16:55-0400 Respiratory rate 18 /min Apolinar Henry MD Work Phone: 4(281)721-583016 [place] [address] 07-09-2022 16:55-0400 SaO2% (BldA) [Mass fraction] 97 % Apolinar Henry MD Work Phone: 6(403)581-836016 [place] [address] 07-09-2022 16:55-0400 Systolic blood pressure 149 mm[Hg] Apolinar Henry MD Work Phone: 3(546)518-754816 [place] [address] 07-09-2022 15:05-0400 Body temperature 97.3 [degF] Apolinar Henry MD Work Phone: 9(826)604-945516 [place] [address] 07-09-2022 08:58-0400 Body height 167.6 cm Apolinar Henry MD Work Phone: 1(254)547-492316 [place] [address] 07-09-2022 08:58-0400 Body mass index (BMI) [Ratio] 35.83 kg/m2 Apolinar Henry MD Work Phone: 0(547)999-791116 [place] [address] 07-09-2022 08:58-0400 Body weight 100.7 kg Apolinar Henry MD Work Phone: 8(508)147-022716 [place] [address] 06-30-2022 14:44-0400 Body height 167.6 cm Apolinar Henry MD Work Phone: 5(064)222-791916 [place] [address] 06-30-2022 14:44-0400 Body mass index (BMI) [Ratio] 35.83 kg/m2 Apolinar Henry MD Work Phone: 2(759)170-887316 [place] [address] 06-30-2022 14:44-0400 Body temperature 97.7 [degF] Apolinar Henry MD Work Phone: 3(437)817-509316 [place] [address] 06-30-2022 14:44-0400 Body weight 100.7 kg Apolinar Henry MD Work Phone: 7(312)007-321716 [place] [address] 06-30-2022 14:44-0400 Diastolic blood pressure 97 mm[Hg] Apolinar Henry MD Work Phone: 5(166)193-210016 [place] [address] 06-30-2022 14:44-0400 Heart rate 119 /min Apolinar Henry MD Work Phone: 2(049)569-644716 [place] [address] 06-30-2022 14:44-0400 Systolic blood pressure 148 mm[Hg] Apolinar Henry MD Work Phone: 7(512)039-668416 [place] [address] 06-16-2022 11:36-0400 Body height 167.6 cm Apolinar Henry MD Work Phone: 1(995)602-727716 [place] [address] 06-16-2022 11:36-0400 Body mass index (BMI) [Ratio] 35.99 kg/m2 Apolinar Henry MD Work Phone: 5(561)651-316616 [place] [address] 06-16-2022 11:36-0400 Body temperature 97.5 [degF] Apolinar Henry MD Work Phone: 0(652)192-492416 [place] [address] 06-16-2022 11:36-0400 Body weight 101.15 kg Apolinar Henry MD Work Phone: 8(670)672-181616 [place] [address] 06-16-2022 11:36-0400 Diastolic blood pressure 89 mm[Hg] Apolinar Henry MD Work Phone: 8(104)101-777716 [place] [address] 06-16-2022 11:36-0400 Heart rate 76 /min Apolinar Henry MD Work Phone: 2(146)989-213716 [place] [address] 06-16-2022 11:36-0400 Systolic blood pressure 148 mm[Hg] Apolinar Henry MD Work Phone: 1(020)337-407716 [place] [address] 05-20-2022 13:46-0400 Body temperature 98.01 [degF] Apolinar Henry MD Work Phone: 9(110)185-346816 [place] [address] 05-20-2022 13:46-0400 Body weight 100.7 kg Apolinar Henry MD Work Phone: 1(112)780-359116 [place] [address] 05-20-2022 13:46-0400 Diastolic blood pressure 95 mm[Hg] Apolinar Henry MD Work Phone: 6(547)345-730016 [place] [address] 05-20-2022 13:46-0400 Heart rate 80 /min Apolinar Henry MD Work Phone: 7(954)905-788516 [place] [address] 05-20-2022 13:46-0400 Systolic blood pressure 150 mm[Hg] Apolinar Henry MD Work Phone: [facility] Encounters Encounter Date Encounter Type Care Provider Facility Start: 10-11-2023 End: 10-12-2023 ambulatory Shaikh Kerry Villagran MD Facility:[facility] Start: 09-15-2023 End: 09-16-2023 ambulatory Shaikh Kerry Villagran MD Facility:[facility] Start: 09-01-2023 End: 09-02-2023 ambulatory Shaikh Kerry Villagran MD Facility:[facility] Start: 08-30-2023 ambulatory Shaikh Tyshawn Facility: [facility] Start: 07-21-2023 ([facility] RD FU) [facility] F/ U [employer] C[employer] Developer Adriana Lyn [facility] Start: 07-21-2023 End: 07-21-2023 ambulatory Adriana Lyn Other [employer] Other Start: 07-20-2023 End: 07-21-2023 ambulatory Shaikh Krery Villagran MD Facility:[facility] Start: 07-05-2023 [facility] Weight Management f/u [facility] Start: 07-05-2023 End: 07-06-2023 ambulatory Vanessa Mack MD [employer] [facility] [employer] Other Start: 07-01-2023 End: 07-01-2023 ambulatory Shaikh Kerry Villagran MD Facility:[facility] Start: 06-30-2023 End: 06-30-2023 ambulatory Apolinar Henry Facility:[facility] Start: 06-30-2023 End: 06-30-[address] Apolinar Henry Work Phone: [facility] Work Phone: Start: 06-30-2023 End: 06-30-[address] Apolinar Henry Work Phone: [facility] Work Phone: Start: 06-21-2023 End: 06-22-2023 ambulatory Vanessa Mack MD Facility:[facility] Start: 06-16-2023 End: 06-17-2023 ambulatory Shaikh Kerry Villagran MD Facility:[facility] Start: 06-02-2023 End: 06-03-2023 ambulatory Shaikh Kerry Villagran MD Facility:[facility] Start: 06-01-2023 End: 06-02-2023 ambulatory Adam Betancourt MD Facility:[facility] Start: 06-01-2023 End: 06-02-2023 ambulatory Jovan Bteancourt MD Facility:[facility] Start: 05-31-2023 End: 06-01-2023 [facility]ulatory [facility] Start: 05-27-2023 ([facility] RD FU) [facility] F/ U [employer] Developer Adriana Lyn [facility] Start: 05-27-2023 End: 05-27-2023 ambulatory Adriana Lyn Other [employer] Other Start: 05-05-2023 End: 05-05-2023 ambulatory Apolinar Henry Facility:[facility] Start: 05-05-2023 End: 05-05-[address] Apolinar Henry Work Phone: [facility] Work Phone: Start: 05-05-2023 End: 05-05-[address] Apolinar Henry Work Phone: [facility] Work Phone: Start: 04-12-2023 End: 04-12-2023 ambulatory Susanne Jordan Other [employer] Other Start: 04-12-2023 Telephone encounter [facility] Start: 03-15-2023 ([facility]/U) Weight Management f/u [facility] Start: 03-15-2023 End: 03-15-2023 ambulatory Susanne Jordan Other [employer] Other Start: 02-18-2023 End: 02-19-2023 ambulatory Shaikh [facility]agran [facility] Start: 01-20-2023 End: 01-21-2023 ambulatory Agnieszka Vazquez PA-C Facility:[facility] Start: 01-01-[address] ADAM SCHWARTZ Facilit y:[facility] Start: 12-23-2022 End: 12-24-2022 ambulatory Shaikh Kerry [facility]agran MD [facility] Start: 12-16-2022 End: 12-17-[address] ADAM SCHWARTZ Facility:[facility] Start: 11-18-2022 ambulatory SHAIKH KERRY VILLAGRAN [facility] Start: 11-18-2022 End: 11-18-2022 Office outpatient visit 25 minutes Apolinar Henry MD Work Phone: [facility] Comment on above: 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); S/P breast reconstruction Start: 10-21-2022 ambulatory SHAIKH KERRY [facility] Start: 10-21-2022 End: 10-21-2022 Office outpatient visit 25 minutes Apolinar Henry MD Work Phone: [facility] Comment on above: 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); S/P breast reconstruction Start: 10-07-2022 ambulatory SHAIKH KERRY [facility] Start: 10-07-2022 End: 10-07-2022 Postop follow up visit related to original px Apolinar Henry MD Work Phone: [facility] Comment on above: 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); S/P breast reconstruction Start: 09-23-2022 ambulatory FREEDMASON PAYNE [facility] Start: 09-23-2022 End: 09-23-2022 Postop follow up visit related to original debi Henry MD Work Phone: [facility] Comment on above: 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 Comment on above: Arrived Start: 08-26-2022 ambulatory SHAIKH KERRY [facility] Start: 08-12-2022 [facility] SHAIKH KERRY [facility] Start: 08-12-2022 End: 08-12-2022 Postop follow up visit related to original debi Henry MD Work Phone: [facility] Comment on above: S/P breast reconstru ction (Primary Dx); Personal history of malignant neoplasm of breast; Acquired absence of right breast and nipple Start: 08-05-2022 ambulatory SHAIKH KERRY [facility] Start: 08-05-2022 End: 08-05-2022 Postop follow up visit related to original debi Henry MD Work Phone: [facility] Comment on above: S/P breast reconstru ction (Primary Dx) Start: 07-22-2022 ambulatory SHAIKH KERRY [facility] Start: 07-22-2022 End: 07-22-2022 Postop follow up visit related to original px Apolinar Henry MD Work Phone: [facility] Comment on above: 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); S/P breast reconstruction Start: 07-15-2022 ambulatory SHAIKH KERRY VILLAGRAN [facility] Start: 07-15-2022 End: 07-15-2022 Postop follow up visit related to original px Apolinar Henry MD Work Phone: [facility] Comment on above: 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); Personal history of malignant neoplasm of breast; S/P breast reconstruction Start: 07-09-2022 End: 07-09-2022 ambulatory SHAIKH KERRY VILLAGRAN [facility] Start: 07-09-2022 End: 07-09-2022 Subsequent hospital visit by physician Apolinar Henry MD Work Phone: [facility] Comment on above: Personal history of malignant neoplasm of breast Start: 06-30-2022 ambulatory SHAIKH KERRY PRABHAKARCANuno [facility] Start: 06-30-2022 End: 06-30-2022 Office outpatient visit 40 minutes Apolinar Henry MD Work Phone: [facility] Comment on above: S/P breast reconstru ction (Primary Dx); Acquired absence of right breast and nipple; Personal history of malignant neoplasm of breast Start: 06-25-2022 Encounter for other preprocedural examination SHAIKH Tc VILLAGRAN [facility] Start: 06-23-2022 ambulatory SHAIKH KERRY VILLAGRAN [facility] Start: 06-22-2022 End: 06-23-2022 ambulatory FREED H PADILLAWJACIEL Facility:[facility] Start: 06-22-2022 End: 06-23-2022 Encounter for other preprocedural examination FREED H PADILLAWWANuno Facility:[facility] Start: 06-16-2022 ambulatory APOLINAR HENRY [facility] Start: 06-16-2022 Encounter for other preprocedural examination APOLINAR HENRY [facility] Start: 06-16-2022 ambulatory SHAIKH KERRY [facility] Start: 06-16-2022 End: 06-16-2022 Office outpatient visit 25 minutes Apolinar Henry MD Work Phone: [facility] Comment on above: Personal history of malignant neoplasm of breast (Primary Dx); Acquired absence of right breast and nipple Start: 05-21-2022 End: 06-20-2022 ambulatory SHAIKH KERRY [facility] Start: [facility]-20-20[facility] Start: 05-20-2022 End: 05-20-2022 Office outpatient new 60 minutes Apolinar Henry MD Work Phone: [facility] Comment on above: Personal history of malignant neoplasm of breast (Primary Dx); Acquired absence of right breast and nipple Start: 03-24-2022 End: 03-25-2022 ambulatory FREED H FAWWAD Facility:[facility] Start: 03-02-2022 End: 03-02-2022 ambulatory FREED H FAWWAD Facility:[facility] Start: 01-13-2022 End: 01-14-2022 ambulatory FREED H FAWWAD Facility: Start: 06-07-2020 End: 06-08-2020 Patient encounter procedure [place] Facility:[facility] Start: 08-05-2018 End: 08-05-2018 Emergency department patient visit GRUPO BROUSSARD Facility:[facility] Start: 07-27-2017 End: 10-14-2017 Ambulatory NANCY MARTINEZ Facility:[facility] [place] [place] Procedures Date Procedure Procedure Detail Performing Clinician Start: 09-23-2022 Follow-up visit Follow-up APOLINAR HENRY Start: 09-15-2022 Radiologic exam chest 2 views Apolinar Henry MD Work Phone: Start: 06-07-2020 ANESTH KNEE JOINT SURGERY LASHA BAKER Start: 06-07-2020 KNEE ARTHROSCOPY/SURGERY ADAM SKINNER Start: 08-05-2018 Electrocardiogram GRUPO BROUSSARD Plan of Treatment Date Care Activity Detail Author Start: 07-30-2023 ambulatory Ambulatory Facility:[facility] Start: 04-06-2023 MAMMOGRAM LEFT MAMMOGRAM LEFT [facility] Start: 04-06-2023 Screening for malign ant neoplasm of breast MAMMOGRAM LEFT [facility] Start: 01-11-2023 Tetanus vaccination TETANUS [facility] Start: 11-18-2022 End: 11-18-2022 Patient encounter procedure 11/18/2022 Office Visit Plastic Surgery Apolinar Henry MD [address] [place] [id number] [facility] Start: 10-21-2022 End: 10-21-2022 Patient encounter procedure 10/21/2022 Office Visit Plastic Surgery Apolinar Henry MD [address] [place] [id number] [facility] Start: 10-07-2022 End: 10-07-2022 Patient encounter procedure 10/07/2022 Office Visit Plastic Surgery Apolinar Henry MD [address] [place] [id number] [facility] Start: 09-23-2022 End: 09-23-2022 Patient encounter procedure 09/23/2022 Office Visit Plastic Surgery Apolinar Henry MD [address] [place] [address] [place] [address] [facility] Start: 08-26-2022 End: 08-26-2022 Patient encounter procedure 08/26/2022 Office Visit Plastic Surgery Apolinar Henry MD [address] [place] [address] [place] [address] [facility] Start: 08-12-2022 End: 08-12-2022 Patient encounter procedure 08/12/2022 Office Visit Plastic Surgery Apolinar Henry MD [address] [place] [address] [place] [address] [facility] Start: 08-05-2022 End: 08-05-2022 Patient encounter procedure 08/05/2022 Office Visit Plastic Surgery Apolinar Henry MD [address] [place] [id number] [facility] Start: 07-22-2022 End: 07-22-2022 Patient encounter procedure 07/22/2022 Office Visit Plastic Surgery Apolinar Henry MD [address] [place] [id number] [facility] Start: 07-15-2022 End: 07-15-2022 Patient encounter procedure 07/15/2022 Office Visit Plastic Surgery Apolinar Henry MD [address] [place] [address] [facility] Start: 07-09-2022 Subsequent hospital visit by physician 07/09/2022 Hospital Encounter Multispecialty Apolinar Henry MD [address] [place] [id number] Personal history of malignant neoplasm of breast [facility] Comment on above: Personal history of malignant neoplasm of breast Start: 07-09-2022 End: 07-09-2022 Admission to same day surgery center 07/09/2022 Surgery Multispecialty Apolinar Henry MD [address] [place] [address] [place] [address] RT BREAST RECONSTRUCTION W/ PLACEMENT TISSUE UNIT CONTROL CLERK & ADM [facility]NA [facility] Comment on above: RT BREAST RECONSTRUC TION W/ PLACEMENT TISSUE UNIT CONTROL CLERK & ADM Start: 07-09-2022 End: 07-09-2022 Anesthesia consultation 07/09/2022 Anesthesia Event Multispecialty Deo Moeller, DO [address] [place] [address] [facility] Start: 07-09-2022 End: 07-09-2022 Brst rcnstj immt/dlyd w/tiss electrician manager sbsq xpnsj RECONSTRUCTION BREAST TISSUE UNIT CONTROL CLERK INCLUDING SUBSEQUENT EXPANDERS Personal history of malignant [...] Visit Plastic Surgery Apolinar Henry MD [address] [place] [address] [facility] Start: 05-14-2022 Influenza vaccination INFLUENZA VACC INE (#1) [facility] Start: 12-03-2021 COVID-19 VACCINE (4 - Booster for Pfizer series) COVID-19 VACCINE (4 - Booster for Pfizer series) [facility] Start: 09-30-2021 COVID-19 VACCINE (4 - Booster for Pfizer series) COVID-19 VACCINE (4 - Booster for Pfizer series) [facility] Start: 2015 Pneumococcal vaccination PNEUM OCOCCAL VACCINE SERIES (1 - PCV) [facility] Start: 2000 Zoster vaccine hzv l vera for subcutaneous use ZOSTER (SHINGLES) VACCINE (1 of 2) [facility] Start: 1995 Colonoscopy COLORECTAL CAN CER SCREENING DISCUSSION [facility] Start: 1995 Screening for malign ant neoplasm of colon COLORECTAL CANCER SCREENING DISCUSSION [facility] Start: 1990 Fasting lipid profile LIPID SCREENIN G [facility] Start: 1990 Lipid panel LIPID SCREENING [facility] Start: 1980 MAMMOGRAM LEFT MAMMOGRAM LEFT [facility] Start: 1971 Screening for malign ant neoplasm of cervix CERVICAL CANCER SCREENING DISCUSSION [facility] Start: 1969 Third diphtheria, tetanus and acellular pertussis (DTaP) vaccination TDAP (ADULT) [facility] Start: 1968 Tetanus vaccination TETANUS [facility] Start: 1950 Hepatitis C antibody , confirmatory test HEPATITIS C VIRUS SCREENING [facility] Start: 1950 Hepatitis C screening HEPATITI S C VIRUS SCREENING [facility] Start: 1950 Screening for osteoporosis DEXA SCAN DISCUSSION [facility] Start: 1950 Thyroid stimulating hormone measurement TSH [facility] Immunizations Immunization Date Immunization Notes Care Provider Fa ciliswathi 08-05-2021 influenza virus vaccine, unspecified formulation Apolinar Henry MD Work Phone: [facility] Payers Date Payer Category Payer [employer] ( [employer] others) [id number] 2022 Self-pay 2021 [employer] ( [employer] others) [id number] 2021 [employer] ( [employer] others) [id number] 2021 Unknown 2020 Medicare MEDICARE ANTHEM HMO OR PPO MEDICARE ANTHEM HMO OR O [id number] 2020-Present [address] [place] [address] [id number] 2019 Unknown [id number] 2017 Medicare [id number] 2016 [employer] ( and others) [id number] 1959 [employer] ( and others) [id number] 1959 Medicare [id number] 1950 Unknown [id number] 2.16.840.1.072513.3.579.2. 647 1950 Unknown [id number] 2.16.840.1.394081.3.579.2. 983 1950 Unknown [id number] 2.16.840.1.516528.3.579.2. 983 1950 Unknown [id number] 2.16.840.1.069420.3.579.2. 983 1950 Unknown [id number] 2.16.840.1.752479.3.579.2. 983 1950 Unknown [id number] 2.16.840.1.394644.3.579.2. 983 1950 Unknown [id number] 2.16.840.1.953691.3.579.2. 983 1950 Unknown [id number] 2.16.840.1.860073.3.579.2. 983 1950 Unknown [id number] 2.16.840.1.075618.3.579.2. 983 1950 Unknown [id number] 2.16.840.1.990101.3.579.2. 983 1950 Unknown [id number] 2.16.840.1.137809.3.579.2. 983 1950 Unknown [id number] 2.16.840.1.253222.3.579.2. 983 1950 Unknown [id number] 2.16.840.1.801887.3.579.2. 983 1950 Unknown [id number] 2.16.840.1.208647.3.579.2. 983 1950 Unknown [id number] 2.16.840.1.525129.3.579.2. 983 1950 Unknown [id number] 2.16.840.1.583491.3.579.2. 983 1950 Unknown [id number] 2.16.840.1.583968.3.579.2. 983 1950 Unknown [id number] 2.16.840.1.236983.3.579.2. 983 1950 Unknown [id number] 2.16.840.1.595772.3.579.2. 983 1950 Unknown [id number] 2.16.840.1.405925.3.579.2. 593 1950 Unknown [id number] 2.16.840.1.371524.3.579.2. 593 1950 Unknown [id number] 2.16.840.1.788295.3.579.2. 593 1950 Unknown [id number] 2.16.840.1.082104.3.579.2. 593 1950 Unknown [id number] 2.16.840.1.821226.3.579.2. 593 1950 Unknown [id number] 2.16.840.1.512027.3.579.2. 593 1950 Unknown [id number] 2.16.840.1.142164.3.579.2. 593 1950 Unknown [id number] 2.16.840.1.146108.3.579.2. 593 1950 Unknown [id number] 2.16.840.1.889580.3.579.2. 593 1950 Unknown [id number] 2.16.840.1.341739.3.579.2. 196 1950 Unknown [id number] 2.16.840.1.742095.3.579.2. 196 1950 Unknown [id number] 2.16.840.1.466642.3.579.2. 196 1950 Unknown [id number] 2.16.840.1.507246.3.579.2. 196 1950 Unknown [id number] 2.16.840.1.199131.3.579.2. 196 1950 Unknown [id number] 2.16.840.1.432988.3.579.2. 196 1950 Unknown [id number] 2.16.840.1.792876.3.579.2. 196 1950 Unknown [id number] 2.16.840.1.246817.3.579.2. 196 1950 Unknown [id number] 2.16.840.1.949388.3.579.2. 196 1950 Unknown [id number] 2.16.840.1.830291.3.579.2. 196 1950 Unknown [id number] 2.16.840.1.721626.3.579.2. 196 1950 Unknown [id number] 2.16.840.1.222739.3.579.2. 196 1950 Unknown [id number] 2.16.840.1.225372.3.579.2. 196 1950 Unknown [id number] 2.16.840.1.425402.3.579.2. 196 1950 Unknown [id number] 2.16.840.1.190022.3.579.2. 196 1950 Unknown [id number] 2.16.840.1.437265.3.579.2. 196 1950 Unknown [id number] 2.16.840.1.647275.3.579.2. 196 1948 Unknown [id number] 2.16.840.1.130100.3.579.2. 196 [facility] ( and others) [id number] 2.16.840.1.775833.19 Medicare [id number] Private Health Insurance [id number] Unknown [id number] 2.16.840.1.433694.3.579.2. 283 Unknown [id number] 2.16.840.1.716017.3.579.2. 462 Unknown [id number] 2.16.840.1.051002.3.579.2. 462 Unknown [id number] 2.16.840.1.707011.3.579.2. 462 Unknown [id number] 2.16.840.1.188727.3.579.2. 531 Social History Date Type Detail Facility Start: 05-20-2022 Tobacco smoking status NHIS Never smoked tobacco [facility] Start: 05-20-2022 Tobacco use and exposure Smokeless tobacco non-user [facility] Start: 05-20-2022 Alcohol intake Ex-drinker (finding) [facility] Start: 1950 Sex Assigned At Not on file [facility] Start: 06-16-2022 End: 11-18-2022 Alcohol intake Current drinker of alcohol (finding) [facility] Start: 06-16-2022 History SDOH Alcohol Comment SELDOM [facility] Start: 06-29-2022 End: 07-09-2022 Exposure to SARS-CoV-2 (event) Not sure [facility] Sex Assigned At Sex Assigned At [facility] [employer] Other Start: 05-05-2023 End: 06-30-2023 Tobacco smoking status NHIS Unknown if ever smoked [facility] Start: 1950 Sex Assigned At Female W [facility] Medical Equipment Procedure Code Equipment Code Equipment Origin al Text Equipment Identifier Dates [employer] Breast Implant [id number] Start: 07-09-2022 Clinical Notes 01-13-2022 to 10-11-2023 Note Date & Type Note Facility 10-11-2023 Note Chief Complaint Chief Complaint Patient presents for evaluation of left inguinal pain. History of Present Illness 73 year old female, patient of Dr. Villagran Patient s/p robotic left inguinal hernia repair, performed 07/01/2023. At last visit on 07/21/2023, she was doing well. She reports pain at hernia site. State that this started a couple weeks ago. Reports the pain is sharp and is pretty consistent. States that she has the pain when walking, but can also have it when sitting and laying down. She is unsure if there is a recurrent bulge. States that bowels are moving. Here for recheck. R/S Physical Exam Gen: Awake, alert Lungs: Clear to auscultation, no wheezes or rhonchi, non-labored respiration Heart: Regular rate and rhythm, no murmurs, gallops Abdomen: Soft, non-tender, non-distended, no masses, spleen and liver not enlarged, no hernias Extremities: Non-edematous, feet warm bilaterally Additional Vitals No qualifying data available. Medical Decision Making Chronic conditions NOT treated during this visit that affected my overall medical decision making: [] Treatment plans discussed but not opted for at this time: [] Prescribed medication that requires intensive monitoring for toxicity: [] I have reviewed the patient?s medication list for medication interactions/contraindications and/or for upcoming procedures: [yes or no] Time Spent with the Patient I have personally spent [] minutes on this date, directly related to [...] of left hip Breast cancer Chronic cough Colon polyps: hyperplastic & tubular adenomas (04/2019) COVID-19 (09/2021) 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 Health Maintenance Colonoscopy 04/20/2019 (more content not included)... [facility] Comment on above: Order Comment: no sh ow 07-21-2023 Evaluation note Encounter Date Diagnosis Assessment [...] met, continue -increase protein foods- Not reviewed [employer] Other 10-23-2023 Evaluation note* Encounter Date Diagnosis [...] does anticipate getting reconnected with Janina her fruit packer once she 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 her neck [...] Encounter for weight management (ICD-10 - Z76.89) [employer] Other 09-20-2023 NoteBREAST IMAGING CONSULTATION: 06/01/2023 CLINICAL: Screening. Comparison is made to exams dated: 04/06/2022 mammogram and 03/13/2021 mammogram - [facility]. The tissue of left breast [...] may not be detected on mammograms. The [employer] supports annual screening mammography starting at age 40. Carol frye/mello:06/02/2023 09:27:52 Disease Case Manager Rn(s): RT Delmer(R)(M), [facility] letter sent: New Mammo Normal B1/2 Mammogram BI-RADS: 2 Benign Final Dictated by: Carol Tran DO Signed by: Carol Tran DO Signed (Electronic Signature): 06/02/2023 9:27 am (If Report Is Signed, Electronically Signed in Other Vendor System)[facility]09-19-2023 NoteChief Complaint Patient presents for evaluation of left inguinal bulge. History of Present Illness 73 year old female, patient of Dr. Villagran ([place], [place]) Patient presents with a palpable bulge in the left groin area. This has been ongoing for a long time. Patient reports worsening pain. Specific triggers include: none. Notes constipation. States that bowels move approximately once a week. Reports that bulge is not reducible. An ultrasound was obtained 05/07/2023, at [facility]. She has history of myocardial infarction, that occurred in 2013during a surgery. Review of Systems Constitutional: No fevers, chills, sweats, weight loss or weight gain Respiratory: No shortness of breath, cough Cardiovascular: +CAD, h/o [place] Gastrointestinal: +See HPI Liver: No jaundice, hepatitis [...] hyperplastic & tubular adenomas (04/2019) COVID-19 (09/2021) [place] (myocardial infarction) (2013) Morbid obesity with body [...] 06/01/23 21:48 EDT Electronically signed by Teresita Moreno 05/25/2023 15:28 EDT Electronically signed by Emely Zendejas PA-C 06/02/2023 09:41 [facility] 05-27-2023 Evaluation note* Encounter Date Diagnosis Assessment [...] to 30 g/day -NEW: increase protein foods [employer] Other 09-07-2023 NotePatient Education Materials Name: Berenice Nolasco Current Date: 05/20/2023 13:09:49 Danni/[facility] : 1950 The following sheet(s) are the Patient Education Leaflets for Berenice Nolasco ED/Trauma What Is a Hernia? A hernia [...] right away to prevent serious problems. ? [id number] [employer]. [address] [place] [address], [place] [address]. All rights reserved. This information is not intended as a substitute for professional medical care. Always follow your healthcare professional's instructions.[facility]07-03-2023 Evaluation note* Encounter Date Diagnosis Assessment [...] Encounter for weight management (ICD-10 - Z76.89) [employer] Other 03-08-2023 History of Present illness Narrative* [...] the decision is whether to leave the electrician manager and removal Of the port were to [...] IN 2017 Malignant neoplasm of female breast [place] (myocardial infarction) with knee scope PVD (peripheral vascular disease) Past Surgical History: Procedure Laterality Date RECONSTRUCTION BREAST TISSUE UNIT CONTROL CLERK INCLUDING SUBSEQUENT EXPANDERS Right 07/09/2022 Laterality: Right; Surgeon: Apolinar Henry MD; Location: [facility] IMPLANTATION BIOLOGIC IMPLANT FOR SOFT TISSUE REINFORCEMENT ADD-ON PX Right 07/09/2022 RT BREAST RECONSTRUCTION W/ PLACEMENT TISSUE UNIT CONTROL CLERK & ADM/ 150 CC FILL MASTECTOMY Right 1993 BLADDER REPAIR HYSTERECTOMY KNEE SURGERY Bilateral 2016 AND HAD [place] DURING SURGERY ORAL SURGERY REMOVAL CATARACT (PEM) [...] kg/m Smoking Status Never The patient's right electrician manager is in good position. The overlying tissue [...] Follow-up later this year documented in this [facility]02-08[facility]2023 History of Present illness Narrative* Raphael Majano [...] IN 2017 Malignant neoplasm of female breast IL (myocardial infarction) with knee scope PVD (peripheral vascular disease) Past Surgical History: Procedure Laterality Date RECONSTRUCTION BREAST TISSUE UNIT CONTROL CLERK INCLUDING SUBSEQUENT EXPANDERS Right 07/09/2022 Laterality: Right; Surgeon: Apolinar Henry MD; Location: [facility] IMPLANTATION BIOLOGIC IMPLANT FOR SOFT TISSUE REINFORCEMENT ADD-ON PX Right 07/09/2022 RT BREAST RECONSTRUCTION W/ PLACEMENT TISSUE UNIT CONTROL CLERK & ADM/ 150 CC FILL MASTECTOMY Right 1992 BLADDER REPAIR HYSTERECTOMY KNEE SURGERY Bilateral 2016 AND HAD [place] DURING SURGERY ORAL SURGERY REMOVAL CATARACT (PEM) [...] Status Never Patient with right breast tissue electrician manager. She has left breast ptosis and hypertrophy. The port is in satisfactory position. The patient has many questions and is undecided regarding further reconstructive plans. She is interested in matching the left breast however this breast is ptotic and larger. I indicated its more difficult to reconstruct a breast that looks identical to that side. Drying Machine Operator Package Yarns is at its maximal volume of 390 mL for which it could be As a permanent implant. Discussed with the patient that we could consider reassessment in a month to allow the tissue on the right side to relax. After that time we can review the options which may include leaving the electrician manager in place or overexpansion with eventual plans for replacement with a permanent implant. I have reviewed massage of the implant to help soften the pocket. Assessment: Ongoing right breast reconstruction Plan: Pt to RETURN in 1 month FOR RECHECK. They are encouraged to call in the interim with any problems or questions relating to this encounter. [facility] History of Present illness Narrative* Lena [...] evaluation of continued filling of her tissue electrician manager. She states she had pain following the [...] IN 2017 Malignant neoplasm of female breast IL (myocardial infarction) with knee scope PVD (peripheral vascular disease) Past Surgical History: Procedure Laterality Date RECONSTRUCTION BREAST TISSUE UNIT CONTROL CLERK INCLUDING SUBSEQUENT EXPANDERS Right 07/09/2022 Laterality: Right; Surgeon: Apolinar Henry MD; Location: [facility] IMPLANTATION BIOLOGIC IMPLANT FOR SOFT TISSUE REINFORCEMENT ADD-ON PX Right 07/09/2022 RT BREAST RECONSTRUCTION W/ PLACEMENT TISSUE UNIT CONTROL CLERK & ADM/ 150 CC FILL MASTECTOMY Right 1992 BLADDER REPAIR HYSTERECTOMY KNEE SURGERY Bilateral 2016 AND HAD [place] DURING SURGERY ORAL SURGERY REMOVAL CATARACT (PEM) [...] expansion for 3 months before removing the electrician manager and placement of the permanent implant. She presently has 330 mL in and we will put 60 mL in for her to assess the size. The pts Tissue Drying Machine Operator Package Yarns was Filled with 60 cc's of Injectable Saline (unilaterally) after prepping the skin with alcohol. She tolerated the procedure well. She is to follow up in 2 Weeks for evaluation and possible further expansion. Assessment: Ongoing right breast reconstruction with continued filling of her tissue electrician manager Plan: Pt to RETURN in 2 weeks FOR RECHECK. They are encouraged to call in the interim with any problems or questions relating to this encounter. [facility] History of Present illness Narrative* Ameena [...] IN 2017 Malignant neoplasm of female breast IL (myocardial infarction) with knee scope PVD (peripheral vascular disease) Past Surgical History: Procedure Laterality Date RECONSTRUCTION BREAST TISSUE UNIT CONTROL CLERK INCLUDING SUBSEQUENT EXPANDERS Right 07/09/2022 Laterality: Right; Surgeon: Apolinar Henry MD; Location: [facility] IMPLANTATION BIOLOGIC IMPLANT FOR SOFT TISSUE REINFORCEMENT ADD-ON PX Right 07/09/2022 RT BREAST RECONSTRUCTION W/ PLACEMENT TISSUE UNIT CONTROL CLERK & ADM/ 150 CC FILL MASTECTOMY Right 1992 BLADDER REPAIR HYSTERECTOMY KNEE SURGERY Bilateral 2016 AND HAD [place] DURING SURGERY ORAL SURGERY REMOVAL CATARACT (PEM) [...] side which is nontender. The pts Tissue Drying Machine Operator Package Yarns was Filled with The 75 cc's of [...] relating to this encounter. documented in this [facility]11-30-2022 History of Present illness Narrative* Ameena Jackson [...] IN 2017 Malignant neoplasm of female breast [place] (myocardial infarction) with knee scope Past Surgical History: Procedure Laterality Date RECONSTRUCTION BREAST TISSUE UNIT CONTROL CLERK INCLUDING SUBSEQUENT EXPANDERS Right 07/09/2022 Laterality: Right; Surgeon: Apolinar Henry MD; Location: [facility] IMPLANTATION BIOLOGIC IMPLANT FOR SOFT TISSUE REINFORCEMENT ADD-ON PX Right 07/09/2022 RT BREAST RECONSTRUCTION W/ PLACEMENT TISSUE UNIT CONTROL CLERK & ADM/ 150 CC FILL MASTECTOMY Right 1993 BLADDER REPAIR HYSTERECTOMY KNEE SURGERY Bilateral 2017 AND HAD [place] DURING SURGERY ORAL SURGERY REMOVAL CATARACT (PEM) [...] There is no discoloration. The pts Tissue Drying Machine Operator Package Yarns was Filled with 35 cc's of Injectable Saline (bilaterally/unilaterally) after prepping the skin with alcohol. She tolerated the procedure well. She is to follow up in 2 Weeks for evaluation and further expansion. Assessment: Acquired absence right breast. Patient for expansion of tissue electrician manager Plan: Pt to RETURN in 2 weeks FOR RECHECK. They are encouraged to call in the interim with any problems or questions relating to this encounter. [facility] History of Present illness Narrative* Ameena [...] IN 2017 Malignant neoplasm of female breast IL (myocardial infarction) with knee scope Past Surgical History: Procedure Laterality Date RECONSTRUCTION BREAST TISSUE UNIT CONTROL CLERK INCLUDING SUBSEQUENT EXPANDERS Right 07/09/2022 Laterality: Right; Surgeon: Apolinar Henry MD; Location: [facility] IMPLANTATION BIOLOGIC IMPLANT FOR SOFT TISSUE REINFORCEMENT ADD-ON PX Right 07/09/2022 RT BREAST RECONSTRUCTION W/ PLACEMENT TISSUE UNIT CONTROL CLERK & ADM/ 150 CC FILL MASTECTOMY Right 1992 BLADDER REPAIR HYSTERECTOMY KNEE SURGERY Bilateral 2016 AND HAD [place] DURING SURGERY ORAL SURGERY REMOVAL CATARACT (PEM) [...] relating to this encounter. [facility] History of Present illness Narrative* Ameena [...] IN 2017 Malignant neoplasm of female breast IL (myocardial infarction) with knee scope Past Surgical History: Procedure Laterality Date RECONSTRUCTION BREAST TISSUE UNIT CONTROL CLERK INCLUDING SUBSEQUENT EXPANDERS Right 07/09/2022 Laterality: Right; Surgeon: Apolinar Henry MD; Location: [facility] IMPLANTATION BIOLOGIC IMPLANT FOR SOFT TISSUE REINFORCEMENT ADD-ON PX Right 07/09/2022 RT BREAST RECONSTRUCTION W/ PLACEMENT TISSUE UNIT CONTROL CLERK & ADM/ 150 CC FILL MASTECTOMY Right 1993 BLADDER REPAIR HYSTERECTOMY KNEE SURGERY Bilateral 2017 AND HAD [place] DURING SURGERY ORAL SURGERY REMOVAL CATARACT (PEM) [...] right breast reconstruction with placement of tissue electrician manager Plan: Pt to RETURN in 2 weeks FOR RECHECK. They are encouraged to call in the interim with any problems or questions relating to this encounter. [facility] History of Present illness Narrative* Ameena [...] for evaluation of Right breast reconstruction with electrician manager on 07/09/22. She complains of soreness, 7/10 [...] IN 2017 Malignant neoplasm of female breast IL (myocardial infarction) with knee scope Past Surgical History: Procedure Laterality Date RECONSTRUCTION BREAST TISSUE UNIT CONTROL CLERK INCLUDING SUBSEQUENT EXPANDERS Right 07/09/2022 Laterality: Right; Surgeon: Apolinar Henry MD; Location: [facility] IMPLANTATION BIOLOGIC IMPLANT FOR SOFT TISSUE REINFORCEMENT ADD-ON PX Right 07/09/2022 Laterality: Right; Surgeon: Apolinar Henry MD; Location: [facility] MASTECTOMY Right 1992 BLADDER REPAIR HYSTERECTOMY KNEE SURGERY Bilateral 2017 AND HAD [place] DURING SURGERY ORAL SURGERY REMOVAL CATARACT (PEM) [...] breast reconstruction with placement of a tissue electrician manager Plan: Pt to RETURN in 1 week FOR RECHECK. They are encouraged to call in the interim with any problems or questions relating to this encounter. [facility] Nurse Surgical operation note* Deanna Jimenez [...] Les. Encouraged to use CPAP at home. [facility]10-[facility] Nurse Note* Deanna Jimenez RN - [...] Patient connected to Monitors. documented in [facility] Nurse Surgical operation note* Alphonse Craft RN [...] pain, VSS, resp even and unlabored. . [facility]10[facility] Hospital Discharge instructions* Discharge Instructions* Apolinar [...] Care Everywhere. * Incentive Spirometer: General Info (Lithuanian) documented in this encounterWilson [facility]10-27-2022 Note* Brief Op Note - Apolinar Henry MD - 07/09/2022 2:34 PM EDT POST OPERATIVE/PROCEDURE NOTE Berenice Nolasco ([id number]) SURGEON Surgeon(s) and Role: * Apolinar Henry MD - Primary SECOND COOK AND BAKER SIGNAL TOWER OPERATOR ANESTHESIOLOGIST DRY CLEANER: Real Hahn APRN-DRY CLEANER SURGICAL STAFF Vehicle Washer: Marleni Swartz RN; Joanna Flores RN Monitoring Nurse: Linsey Reyes RN Registered Nurse Senior Chemist: Cady Vasquez RN Scrub Person: Laisha An LPN Music Education Director: Janet Feldman PROCEDURE PERFORMED Right breast reconstruction with placement of tissue electrician manager ([id number]) 150cc initial fill PRIMARY CLOSURE Yes [...] Henry MD July 09, 2022 2:34 PM [facility]10[facility] Miscellaneous Notes* Brief Op Note - Apolinar Henry MD - 07/09/2022 2:34 PM EDT POST OPERATIVE/PROCEDURE NOTE Berenice Nolasco ([id number]) SURGEON Surgeon(s) and Role: * Apolinar Henry MD - Primary SECOND COOK AND BAKER YEYO ANESTHESIOLOGIST DRY CLEANER: Real Hahn APRN-DRY CLEANER SURGICAL STAFF Vehicle Washer: Marleni Swartz RN; Joanna Flores RN Monitoring Nurse: Linsey Reyes, RN Registered Nurse Senior Chemist: Cady Vasquez RN Scrub Person: Laisha An LPN Music Education Director: Janet Gaston PROCEDURE PERFORMED Right breast reconstruction with placement of tissue electrician manager ([id number]) 150cc initial fill PRIMARY CLOSURE Yes [...] 09, 2022 2:34 PM documented in this [facility]Wilson [facility]10-[facility] Nurse Surgical operation note* Joanna Flores RN - 07/09/2022 12:24 PM EDT OR room temp 68f Humidity 305 Firescore 2 Prep dry prior to draping. Procedure completed. Dressings applied. Patient transported to PACU by holly segovia RN and Nuno hahn DRY CLEANER. Report given to alphonse DIAZ upon arrival. Patient connected to Monitors. [facility] History and physical note* Apolinar Henry MD - 07/09/2022 10:58 AM EDT I have examined the patient and reviewed the previous H&P completed on date 06/24/22 and there are no changes. See paper H&P in chart Apolinar Henry MD, 07/09/2022, 10:59 AM. [facility] History and physical note* Apolinar Henry MD - 07/09/2022 10:58 AM EDT I have examined the patient and reviewed the previous H&P completed on date 06/24/22 and there are no changes. See paper H&P in chart Apolinar Henry MD, 07/09/2022, 10:59 AM. documented in this [facility]10-[facility] History of Present illness Narrative* Ameena Jackson [...] IN 2017 Malignant neoplasm of female breast IL (myocardial infarction) with knee scope Past Surgical History: Procedure Laterality Date MASTECTOMY Right 1992 BLADDER REPAIR HYSTERECTOMY KNEE SURGERY Bilateral 2017 AND HAD [place] DURING SURGERY ORAL SURGERY REMOVAL CATARACT (PEM) [...] procedure of Right breast reconstruction with tissue electrician manager Was thoroughly reviewed with the patient. The [...] right breast reconstruction with placement of tissue electrician manager Plan: We will proceed with surgery in the near future and the patient will call with any further questions. I spent 50 minutes total time with the patient. documented in this [facility]10-[facility] History of Present illness Narrative* Ameena Jackson [...] We discussed direct to implant versus tissue electrician manager and decided on tissue electrician manager to allow flexibility in choosing her size. She understands in a second surgery would be required to either remove the port or replace the implant. I measured her for an implant today which will be a tissue electrician manager--smooth round spectrum [id number] an approximately 12 cm diameter The procedure of Right breast reconstruction with tissue electrician manager was thoroughly reviewed with the patient. The [...] for further preoperative preparation documented in this [facility]09-07-2022 History of Present illness Narrative* Ameena Jackson [...] types of reconstructions described included: 1) Tissue electrician manager and implant based reconstruction, both single and [...] after considering the options documented in this [facility]05-03-2022 NotePROCEDURE: XR HIPS CHARLIE 5V W PELVIS [...] Electronically authenticated by: TY BOUDREAUX Date: 2022-01-13 17:45[facility] Diagnosis Personal history of malignant neoplasm of breast- Primary 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 absence of breast and nipple [facility] Personal history of malignant neoplasm of breast- Primary 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 absence of breast and nipple 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 absence of breast and nipple [facility] Diagnosis S/P breast reconstruction- Primary Breast replaced by other means 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 absence of breast and nipple Personal history of malignant neoplasm of breast 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 absence of breast and nipple [facility] Diagnosis Acquired absence of right breast- Primary Acquired absence of right breast Personal history of malignant neoplasm of breast Personal history of malignant neoplasm of breast [facility] Diagnosis Acquired absence of right breast and nipple- Primary Acquired absence of breast and nipple Personal history of malignant neoplasm of breast S/P breast reconstruction Breast replaced by other means [facility] Diagnosis Acquired absence of right breast and nipple- Primary Acquired absence of breast and nipple S/P breast reconstruction Breast replaced by other means [facility] Diagnosis S/P breast reconstruction- Primary Breast replaced by other means [facility] Diagnosis S/P breast reconstruction- Primary Breast replaced by other means 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 absence of breast and nipple [facility] Diagnosis Right-sided chest pain [facility] Diagnosis Acquired absence of right breast and nipple- Primary Acquired absence of breast and nipple S/P breast reconstruction Breast replaced by other means [facility] Diagnosis Acquired absence of right breast and nipple- Primary Acquired absence of breast and nipple S/P breast reconstruction Breast replaced by other means [facility] noteNo InformationNort [employer] Other Evaluation noteNo assessment information available [facility] Work Phone: Evaluation note* Diagnosis Onset Date Resolution Status Breast asymmetry between donavan vera breast and reconstructed breast acute Breast hypertrophy acute History of cancer of right breast acute [facility] Work Phone: History general Narrative - [...] side breast tissue expand er Surgical History [place] teeth Surgical History 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 Surgical History Heart cath Surgical History Dental implant Hospitalization History See above [employer] Other History general Narrative - Reported* Type [...] side breast tissue expand er Surgical History [place] teeth Surgical History 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 Surgical History Heart cath Surgical History Dental implant Surgical History Inguinal hernia repair Surgical History Steroid injections in back Hospitalization History See above [employer] Other Reason for visit Narrative* Auth/Cert Specialty Diagnoses / Procedures Referred By Felix t Referred To Contact Diagnoses 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 Personal history of malignant neoplasm of breast [Z85.3] 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] Procedures [place] TISSUE UNIT CONTROL CLERK PLACEMENT BREAST RECONSTRUCTION [place] IMPLNT BIO IMPLNT FOR SOFT TISSUE REINFORCEMENT RECONSTRUCTION BREAST TISSUE UNIT CONTROL CLERK INCLUDING SUBSEQUENT EXPANDERS IMPLANTATION BIOLOGIC IMPLANT FOR SOFT TISSUE REINFORCEMENT ADD-ON PX Apolinar Henry MD [address] [place] [id number] Referral ID Status Reason Start Date Expiration Date Visits Re quested Visits Authorized [id number] 06/10/2022 1 1 [facility] Summary Purpose Family History No Family History [...] Consult preop #1 left breast red/ right electrician manager port Reason for Visit Breast asymmetry bet [place] breast and reconstructed breast Breast hypertrophy History of cancer of right breast Additional Source Comments INFORMATION SOURCE (unrecogn ized section and content) DATE CREATED AUTHOR 03/07/2018 [facility] DATE CREATED AUTHOR AUTHOR'S ORGANIZ ATION 08/23/2018 [facility] DATE CREATED AUTHOR AUTHOR'S ORGANIZ ATION 09/01/2018 [facility] DATE CREATED AUTHOR AUTHOR'S ORGANIZ ATION 12/11/2020 [facility] DATE CREATED AUTHOR AUTHOR'S ORGANIZ ATION 07/10/2022 [facility] DATE CREATED AUTHOR AUTHOR'S ORGANIZ ATION 11/20/2022 [facility] DATE CREATED AUTHOR AUTHOR'S ORGANIZ ATION 12/25/2022 [facility] DATE CREATED AUTHOR AUTHOR'S ORGANIZ ATION 07/27/2023 [facility] DATE CREATED AUTHOR AUTHOR'S ORGANIZ ATION 10/18/[address] [facility] DATE CREATED AUTHOR AUTHOR'S ORGANIZ ATION 10/22/2023 [facility] Reason for Visit (unrecogniz ed [...] Op Visit Right breast reconst ruction with electrician manager on 07/09/22. She complains of soreness, 7/10 [...] Care Teams (unrecognized sec tion and content) Him Tech Relationship Specialty Start Date End Date Shaikh Kerry Villagran MD [address] [place] [id number] PCP - General Internal Medicine 05/20/22 Him Tech Relationship Specialty Start Date End Date Shaikh Kerry Villagran MD [address] [place] [address] PCP - General Internal Medicine 05/20/22 Him Tech Relationship Specialty Start Date End Date Shaikh Kerry Villagran MD [address] [place] [address] PCP - General Internal Medicine 05/20/22 Him Tech Relationship Specialty Start Date End Date Shaikh Kerry Villagran MD [address] [place] [address] PCP - General Internal Medicine 05/20/22 Him Tech Relationship Specialty Start Date End Date Shaikh Kerry Villagran MD [address] [place] [address] PCP - General Internal Medicine 05/20/22 Him Tech Relationship Specialty Start Date End Date Shaikh Kerry Villagran MD [address] [place] [address] PCP - General Internal Medicine 05/20/22 Team [...] Provider: REBEL Ochoa)[id number] (Stopped - Provider: Deanna Jimenez, RN) PRN Medication Order 07/07/2022 07/08/2022 07/09/2022 [...] Pain, 1549 (Given - Provid er: Deanna Jimenez, JOE) sodium chloride 0.9 % irrigation NEEDED, Starting [...] Starting on Carla 07/09/22 at 1114, Until 07/10/22 at 1130, Malika Diaz: cabinet override 1130 [...] BE BASED ON THE PRIMARY CLINICAL RECORDS. [employer] provides no warranty or guarantee of the accuracy or completeness of information in this document.
--- NOTE | 2023-10-28 11:37 | P.CN_ITS ---
Consult Note: HPI Data of Consult Patient: known to practice within the last 3 years Requesting Physician: Beth Morales NP Primary Care Provider: Shaikh Tyshawn MD Consult Narrative Reason for consult: f/u Narrative: Berenice Nolasco a pleasant 73 year old female presents for evaluation and management of low back pain. Pain today 4-5 ache increasing with twisting, pushing, pulling, standing, pain improved with sitting and heat. Pain increases to 8/10 at its most intense. ADELSO 42% with limitations in stnading, walking, sleeping, lifting, and completing ADLs. The patient has had over 3 months of moderate to severe low back pain with functional impairment and inadequate response to conservative care including NSAIDS (unless there are contraindication such as concurrent blood thinners), multiple oral or topical pain medications, and home exercise program/physical therapy.? Patient has completed >6 weeks of guided home exercise program and/or formal physical therapy program without relief of their symptoms.?I have reviewed the imaging of the lumbar spine and no red flags were identified.? The imaging reveals radiographic findings consistent with lumbar facet arthropathy cc:: CC: Beth Morales NP Review of Systems ROS Status of ROS 10 or more systems reviewed and unremark able except as noted in history and below Musculoskeletal Reports: back pain PFSH PFSH Medical History Osteoarthritis ?M19.90 - Unspecified osteoarthritis, unspecified site (ICD-10) H/O malignant neoplasm of breast ?Z85.3 - Personal history of malignant neoplasm of breast (ICD-10) Acid reflux ?K21.9 - Gastro-esophageal reflux disease without esophagitis (ICD-10) Diabetes ?E11.9 - Type 2 diabetes mellitus without complications (ICD-10) Sleep apnea ?G47.30 - Sleep apnea, unspecified (ICD-10) High cholesterol ?E78.00 - Pure hypercholesterolemia, unspecified (ICD-10) Surgical History H/O mastectomy ?Z90.10 - Acquired absence of unspecified breast and nipple (ICD-10) H/O arthroscopy of shoulder ?Z98.890 - Other specified postprocedural states (ICD-10) H/O arthroscopy of knee ?Z98.890 - Other specified postprocedural states (ICD-10) H/O bladder repair surgery ?Z98.890 - Other specified postprocedural states (ICD-10) H/O: hysterectomy ?Z90.710 - Acquired absence of both cervix and uterus (ICD-10) H/O breast reconstruction ?Z98.890 - Other specified postprocedural states (ICD-10) Social History Smoking status: Never smoker Meds Home Medications and Allergies Home Medications Medication Instructions Recorded Confirmed Type aspirin 81 mg tablet,delayed 81 mg PO DAILY 05/31/23 07/05/23 History release (Adult Low Dose Aspirin) calcium carbonate 600 mg-vitamin 1 tab PO DAILY 05/31/23 07/05/23 History D3 5 mcg (200 unit) tablet (Calcium 600 + D(3)) citalopram 20 mg tablet 30 mg PO DAILY 05/31/23 07/05/23 History esomeprazole magnesium 40 mg 40 mg PO DAILY 05/31/23 07/05/23 History capsule,delayed release (Nexium) famotidine 20 mg tablet 20 mg PO DAILY 05/31/23 07/05/23 History fesoterodine 8 mg tablet,extended 8 mg PO DAILY 05/31/23 07/05/23 History release 24 hr flaxseed oil 1,000 mg capsule 1,000 mg PO DAILY 05/31/23 07/05/23 History lactobacillus combination no.4 3 3,000 mmu cells PO DAILY 05/31/23 07/05/23 History billion cell capsule (Probiotic) levothyroxine 50 mcg capsule 50 mcg PO DAILY 05/31/23 07/05/23 History melatonin 10 mg capsule 10 mg PO DAILY 05/31/23 07/05/23 History multivitamin (Daily Multi-Vitamin 1 tab PO DAILY 05/31/23 07/05/23 History tablet) semaglutide 0.25 mg or 0.5 mg (2 0.25 mg subcut QWEEK 05/31/23 07/05/23 History mg/3 mL) subcutaneous pen injector (Ozempic) simvastatin 20 mg tablet 20 mg PO DAILY 05/31/23 07/05/23 History ondansetron 4 mg disintegrating 4 mg PO Q6H PRN nausea and 08/14/23 Rx tablet vomiting #20 tabs Allergies Allergy/AdvReac Type Severity Reaction Status Date / Time Penicillins Allergy Verified 08/14/23 03:26 Sulfa (Sulfonamide Allergy Verified 08/14/23 03:26 Antibiotics) Exam Constitutional Documenting provider has reviewed patient's vital signs: yes Common normals: no apparent distress, oriented x3, healthy appearing, alert and well nourished General appearance: cooperative HENMT Common normals: normocephalic, hearing grossly normal bilaterally and moist oral mucous membranes Head and scalp: normocephalic Eye Common normals: PERRL Pupil: PERRL Neck & C-Spine Common normals: full ROM General: normal visual inspection Chest Common normals: inspection of chest normal Respiratory Common normals: normal respiratory effort, no retractions and no use of accessory muscles Back & Pelvis Lumbar spine/lower back: ROM limited, pain with ROM and straight leg raise negative bilaterally Other: mild pain with bilateral facet loading axial low back pain over L3,4,5,S1 no radiculopathy Neuro Common normals: oriented x3, CN's II-XII intact bilaterally, moves all extremities, no focal motor deficits, no sensory deficits noted and deep tendon reflexes 2+ bilaterally Sensorium/orientation: alert Motor exam: strength 5/5 throughout and no movement abnormalities noted Psych Common normals: mental status grossly normal, thought process normal, cooperative, affect normal, speech normal and activity/motor behavior normal Speech: normal speech Thought process: normal thought process Results Additional Findings Additional findings: I have checked an [place] report on this patient today and there are no aberrancies noted in the prescribing history.?? A drug screen was completed and reviewed within the last year, and if there has not been a drug screen completed we ordered one today to monitor higher risk, state monitored pain medication use. As part of providing excellent, safe, comprehensive care, the following was completed at our patient's visit: 1. A medication reconciliation and review to ensure accurate knowledge of current/active medications, including asking our patients to inform us about any [id number] medications or herbal remedies/nutritional supplements/alternative remedies. 2. A review to specifically ensure our patients have had annual screening for: elevated body mass index (BMI), tobacco use, screening for depression, and screening for unhealthy alcohol use. When screening is concerning, patients are provided with education and the specific recommendation to discuss the concerning health issue and treatment options with their primary care provider. Assessment and Plan Assessment and Plan (1) Lumbar spondylosis: Assessment and Plan: We discussed the risks and benefits of the procedure with the patient, and we are NOT planning on using sedation as outlined in the guidelines from Medicare unless there is a documented reason that sedation would be strongly recommended.??The procedure will be completed with fluoroscopy guidance.? (2) Sacroiliac joint dysfunction of both sides: (3) Lumbar stenosis with neurogenic claudication: Plan bilateral L4-5 L5-S1 facet medial branch block x 2 working towards thermal RFA continue HEP as tolerated continue motrin PRN with food f/u 1 week after injection
== END 2023-10-28 11:20 | disposition home or self-care (01) ==
LOC: PM 11:20
PROVIDERS: PCP Internal Medicine; Visit Provider Nurse Practitioner
DX: M47.816 Spondylosis without myelopathy or radiculopathy, lumbar region (principal); M53.3 Sacrococcygeal disorders, not elsewhere classified; M48.062 Spinal stenosis, lumbar region with neurogenic claudication
CPT/HCPCS: G0463

== ENCOUNTER 2023-11-15 10:00 | Day surgery (SDC) | payer MEDICARE, OTHER, SELFPAY ==
--- OUTSIDE RECORDS SUMMARY | 2023-11-15 10:07 | XMS_ITS | CCD ---
Author Name Unknown Address [address] [facility] [address] [place] [address] Organization [facility] Care Team Providers Care Stove Cleaner Name Role Phone NANCY MARTINEZ Unavailable Unavailable NANCY MARTINEZ Unavailable Unavailable NADERER, TRINO~[id number] UNKNOWN Unavailable Unavailable GRUPO BROUSSARD Unavailable Unavailable [place] Procedure Practitioner Unavailab ADAM Bernardo Surgeon Unavailable ADAM SKINNER Admitting Unavailable NADERER, TRINO Primary Care Unavailable NADERER, TRINO Referring Unavailable ADAM SKINNER Attending Unavailable LASHA BAKER Surgeon Unavailable [place] Procedure Practitioner Unavailab le Tyshawn ADAMSON, Shaikh Kerry Primary Care Provider Shaikh Kerry Villagran MD Primary Care Provider SHAIKH KERRY VILLAGRAN Primary Care Unavailab le GHAZOUL, APOLINAR Admitting Unavailable GHAZOUL, APOLINAR Attending Unavailable GHAZOUL, APOLINAR Referring Unavailable GHAZOUL, APOLINAR Attending Unavailable GHAZOUL, APOLINAR Referring Unavailable [facility] Unavailab le [facility] Primary Care Unavailab le SELF, SELF Referring Unavailable GHAZOUL, APOLINAR Attending Unavailable [facility] Primary Care Unavailab le GHAZOUL, APOLINAR Referring Unavailable GHAZOUL, APOLINAR Attending [facility] Primary Care Unavailab le SELF, SELF Referring Unavailable GHAZOUL, APOLINAR Attending Unavailable [facility] Primary Care Unavailab le SELF, SELF Referring Unavailable GHAZOUL, APOLINAR Attending Unavailable [facility], [facility] Primary Care Unavailab le SELF, SELF Referring Unavailable GHAZOUL, APOLINAR Attending Unavailable [facility] Primary Care Unavailab le SELF, SELF Referring Unavailable GHAZOUL, APOLINAR Attending Unavailable FAWWA, [facility] Primary Care Unavailab le SELF, SELF Referring Unavailable GHAZOUL, APOLINAR Attending Unavailable FAWWAD, [facility] Primary Care Unavailab le SELF, SELF Referring Unavailable GHAZOUL, APOLINAR Attending Unavailable FAWWAD, [facility] Primary Care Unavailab le SELF, SELF Referring Unavailable GHAZOUL, APOLINAR Attending Unavailable FAWWAD, [facility] Primary Care Unavailab le SELF, SELF Referring Unavailable GHAZOUL, APOLINAR Attending Unavailable [facility] Primary Care Unavailab le SELF, SELF Referring Unavailable GHAZOUL, APOLINAR Attending Unavailable FAWWAD, [facility] Primary Care Unavailab le SELF, SELF Referring Unavailable GHAZOUL, APOLINAR Attending Unavailable FAWVAD, [facility] Primary Care Unavailab le SELF, SELF Referring Unavailable GHAZOUL, APOLINAR Attending Unavailable FAWWAD, [facility] Primary Care Unavailab le FAWWAD, [facility] Primary Care Unavailab le FAWWAD, [facility] Primary Care Unavailab le SELF, SELF [...] Attending Unavailable FAWWAD, FREED [facility] Consulting Unavailable [place], DR ADAM Castellanos Admitting Unavailable [place], DR ADAM Castellanos Attending Unavailable [place], DR ADAM Castellanos Consulting Unavailable FAWWAD, FREED [...] Jordan Unavailable Dr. Apolinar Henry Attending Provider Adriana Lyn Unavailable Apolinar Henry Attending Unavailable Apolinar Henry Attending Unavailable Apolinar Henry Attending Unavailable Tyshawn ADAMSON, [facility] Rocio MUNSON, Kevin Workman Attending Ela Villagran MD, [facility] Rocio MUNSON, Kevin Workman Attending Ela Betancourt MD, Jovan Cagle Attending Rocio Villagran MD, [facility] Rocio Villagran MD, [facility] Primary [facility] Rocio MUNSON, Kevin Workman Attending Ela Villagran MD, [facility] Rocio MUNSON, Kevin Workman Attending Ela Villagran MD, [facility] Rocio Betancourt MD, Jovan Cagle Referring Alycia Yoder Attending Unavailable Tyshawn ADAMSON, [facility] Rocio Betancourt MD, Jovan Cagle Attending Rocio Villagran MD, [facility] Rocio Betancourt MD, Jovan Cagle Attending Rocio Villagran MD, [facility] Rocio Betancourt MD, Jovan Cagle Attending Rocio Vazquez PA-C, Agnieszka Salcedo Attending Shruti Villagran MD, [facility] Rocio Villagran MD, [facility] Rocio Betancourt MD, Jovan Cagle Attending Rocio Villagran MD, [facility] Rocio Betancourt MD, Jovan Cagle Attending Rocio Villagran MD, [facility] Rocio Dallas DO, Nancy Gonzalez Attending Shruti Betancourt MD, Adam Cardenas Attending Unavailaurelio Villagran MD, [facility] Rocio Mack MD, Andrius Hernandez Attending Unavailable Tyshawn ADAMSON, [facility] Rocio Mack MD, Andrius Vytautlizzeth Attending Unavailable Tyshawn ADAMSON, [facility] Rocio Mack MD, Andrius Vmarisabel Attending Gian Villagran MD, [facility] Rocio Villagran, [facility] Unavailable Susanne Jordan Attending Unavailable Susanne Jordan Admitting Unavailable RENO Jordan Attending Provider MD Tyshawn [facility] Provider Allergies Allergy Classification Reported Allergen(s) Allergy Type Date of Onset Reaction(s) Facility (2 sources) cortisone; Translations: [cortisone] Drug Allergy [facility] Repository (20 sources) Penicillins; Translations: [penicillins] Propensity to adverse reactions (disorder) 3 Itching [facility] Repository (1 source) sulfamethoxazole; Translations: [sulfamethoxazole ] Drug Allergy [facility] Repository (4 sources) Sulfonamides (Antibiotic) Drug allergy (disorder) 3 Itching [facility] Repository (13 sources) sulfaSALAzine Drug Allergy 7 Itching [facility] (13 sources) Sulfonamides (Antibiotic) Propensity to adverse reactions to drug 3 Itching [facility] (5 sources) Penicillin Drug Allergy Unknown [employer] Other (5 sources) Substance with sulfonamide structure and antibacterial mechanism of action (substance) Drug allergy Unknown [employer] Other (2 sources) Sulfonamides (Antibiotic) Allergy to substance 3 [facility] (2 sources) Sulfonamides (Antibiotic) Drug allergy (disorder) 3 [facility] Repository (1 source) Sulfonamides (Antibiotic); Translations: [sulfa drugs] Propensity to adverse reactions to drug (disorder) [facility] Repository Medications Current Medications Medication Drug [...] TABLET PO DAILY May 05, 2023 12:00am ascorbic acid 125 mg / collagen, hydrolyzed 740 mg oral capsule (1 source) Vitamin C Start: 10-29-2023 take 1 capsule by mouth once daily Ascorbic Acid-Collagen (Collagen Plus Vitamin C) 125-740 mg capsule Active 1 CAP PO Daily October 29, 2023 12:00am aspirin 81 mg delayed release oral tablet (14 sources) Platelet Aggregation Inhibitor, Nonsteroidal Anti-inflammatory Drug Start: 10-29-2023 take 81 mg by mouth once daily Aspirin Active 81 MG PO Daily October 29, 2023 12:00am Start: 05-05-2023 take 81 mg by mouth [...] tablet (20 sources) Serotonin Reuptake Inhibitor Start: 10-29-2023 take 30 mg by mouth once daily Citalopram Active 30 MG PO Daily October 29, 2023 12:00am Start: 05-05-2023 take 30 mg by mouth [...] 12:00am Start: 06-09-2022 take 1 capsule by mo [facility] once daily in the morning esomeprazole [address] capsule Take 1 capsule by mouth daily every morning. 0 06/09/2022 Active End: 05-20-2022 take 1 capsule by mouth once daily esomeprazole [address] capsule esomeprazole magnesium 40 mg capsule,delayed release take 1 capsule by mouth daily 0 05/20/2022 Discontinued famotidine 20 mg oral tablet (20 sources) Histamine-2 Receptor Antagonist Start: 10-29-2023 take 20 mg by mouth once daily at bedtime Famotidine Active 20 MG PO Daily at bedtime October 29, 2023 12:00am Start: 05-05-2023 take 20 mg by mouth once daily Famotidine Active 20 MG PO DAILY May 05, 2023 12:00am 24 hr fesoterodine fumarate 8 mg extended release oral tablet (8 sources) Start: 10-29-2023 take 8 mg by mouth once daily Fesoterodine Active 8 MG PO Daily October 29, 2023 12:00am Start: 05-05-2023 take 8 mg by mouth once daily Fesoterodine Active 8 MG PO DAILY May 05, 2023 12:00am Flax Seed Oil (5 sources) Flax Seed Oil 12 00mg qd Active fumarate (1 source) Start: 10-29-19 take 1 tablet by mouth once daily Udlgdfv-Dhej8-Xfnjtk s Fumarate Active 1 TAB PO Daily October 29, 2023 12:00am furosemide 20 mg oral tablet (1 source) Loop Diuretic Start: 11-01-19 take 1 tablet by mouth once daily Furosemide (Lasix) 20 mg tablet Active 20 MG PO Daily November 01, 2023 12:00am ibuprofen 400 mg oral tablet (11 sources) Nonsteroidal Anti-inflammatory Drug take 1 tablet by mouth every six hours as needed ibuprofen 400 MG tablet Take 1 tablet by mouth every 6 hours as needed for Mild Pain. 0 Active L. Acidophilus/Bifid. Animalis (Daily Probiotic) 2.5 billion cell capsule (1 source) Start: 10-29-19 take 1 capsule by mouth once daily, then take 2.5 capsules by mouth once daily L. Acidophilus/Bifid. Animalis (Daily Probiotic) 2.5 billion cell capsule Active 1 CAP PO Daily October 29, 2023 12:00am levothyroxine sodium 0.05 mg oral tablet (20 sources) l-Thyroxine Start: 10-29-19 take 50 ug by mouth once daily Levothyroxine Active 50 MCG PO Daily October 29, 2023 12:00am Start: 05-05-2023 take 50 ug by mouth once daily Levothyroxine Active 50 MCG PO DAILY May 05, 2023 12:00am take 1 tablet by stone th once daily Levothyroxine Sodium 50 MCG take 1 tablet by mouth once daily Oral for 90 Days Active levothyroxine 50 MCG tablet daily every morning. 0 Active linseed oil 1000 mg oral capsule (14 sources) Start: 10-29-2023 take 1000 mg by mouth once daily Flaxseed Oil Active 1000 MG PO Daily October 29, 2023 12:00am administer with a meal Flaxseed, Linsee d, (Flax Seed Oil) 1000 MG capsule 1 capsule daily. 0 Active melatonin 10 mg oral tablet (13 sources) Start: 05-05-2023 take 10 mg by mouth at bedtime Melatonin Active 10 MG PO BEDTIME May 05, 2023 12:00am MELATONIN PO Delmar e by mouth daily. 0 Active Rouyzoxy-Vtn-Xg-Lycopen-Lute in (Complete Mv Adult 50 Plus) 0.4 mg-300 mcg- 250 mcg tablet (2 sources) Start: 05-05-2023 take 1 tablet by mouth once daily Zerdwtlp-Dqa-Eo-Lycopen-Lutein (Complete Mv Adult 50 Plus) 0.4 mg-300 mcg- 250 mcg tablet Active 1 TABLET PO DAILY May 05, 2023 12:00am Multivitamin preparation (6 sources) Start: 10-29-2023 take 1 tablet by mouth once daily Multivitamin Active 1 TAB PO Daily October 29, 2023 12:00am Multivitamin Act vera multivitamin tablet (11 sources) take 1 tablet by mouth once daily multivitamin tablet Take 1 tablet by mouth daily. 0 Active omeprazole 40 mg delayed release oral capsule (6 sources) Proton Pump Inhibitor Start: Omeprazole Active 40 MG PO Daily October 29, 2023 12:00am take 30 minutes before morning meal. take 1 capsule by mouth once cydney ly Omeprazole 40 MG 1 capsule 30 minutes before morning meal Orally Once a day Active polyethylene glycol 3350 78190 mg powder for oral solution (3 sources) Osmotic Laxative Start: 10-29-2023 Polyethylene Glycol 3350 (Miralax) 17 gram/dose powder Active 17 GM PO Daily October 29, 2023 12:00am MiraLax Active Probiotic (3 sources) Probiotic Active Semaglutide (3 sources) Start: 10-29-2023 Semaglutide (O zempic) 0.25 mg or 0.5 mg (2 mg/3 mL) pen injector Active 0.25 MG SUBCUT every week October 29, 2023 12:00am Start: 05-05-2023 Semaglutide (O zempic) 0.25 mg or 0.5 mg (2 mg/3 mL) pen injector Active 0.25 MG SC EVERY WEEK May 05, 2023 12:00am simvastatin 20 mg oral tablet (20 sources) HMG-CoA Reductase Inhibitor Start: 10-29-2023 take 20 mg by mouth once daily Simvastatin Active 20 MG PO Daily October 29, 2023 12:00am Start: 05-05-2023 take 20 mg by mouth once daily Simvastatin Active 20 MG PO DAILY May 05, 2023 12:00am 24 hr trospium chloride 60 mg extended release oral capsule (13 sources) Cholinergic Muscarinic Antagonist take 1 capsule by mouth once daily [...] 3 days. 10 tablet 0 06/30/2022 Active [id number] 200 actuat albuterol 0.09 mg/actuat metered dose [...] Cellulose (SURGICEL) topical pad polyethylene glycol 3350 044695 mg / potassium chloride 2970 mg / sodium bicarbonate 6740 mg / sodium chloride 5860 mg / sodium sulfate 99238 mg powder for oral solution (1 source) [...] Chronic Other nutritional; endocrine; and metabolic disorders (6 sources) Body mass index 30+ - obesity; Translations: [Body mass index (BMI) 37.0-37.9, adult] 11-01-2023 Chronic Other nutritional; endocrine; and metabolic disorders (11 sources) Obesity; Translations: [Obesity, unspecified] 10-29-2023 Chronic Other nutritional; endocrine; and metabolic disorders (5 sources) Obesity, unspecified; Translations: [Obesity, unspecified] Chronic Other nutritional; endocrine; and metabolic disorders (2 sources) Body mass index (BMI) 34.0-34.9, adult Chronic Other nutritional; endocrine; and metabolic disorders (1 source) Obese class I; Translations: [Body mass index (BMI) 34.0-34.9, adult] Chronic Other nutritional; endocrine; and metabolic disorders (1 source) Body mass index (BMI) 32.0-32.9, adult; Translations: [Body Mass Index 32.0-32.9, adult] 11-01-2023 Chronic Residual codes; unclassified (6 sources) Obstructive sleep apnea syndrome; Translations: [Obstructive sleep apnea (adult) (pediatric)] 10-29-2023 Chronic Residual codes; unclassified (3 sources) Obstructive sleep apnea (adult) (pediatric); Translations: [Obstructive sleep apnea (adult)(pediatric)] Chronic Residual codes; unclassified (1 source) Dependence on continuous positive airway pressure ventilation; Translations: [Dependence on other enabling machines and devices] 11-01-2023 Chronic Residual codes; unclassified (11 sources) History of breast reconstruction; Translations: [Other specified postprocedural states] Onset: 10-21-2022 Episodic Residual codes; unclassified (4 sources) Localized edema; Translations: [LOCALIZED EDEMA] Onset: 09-16-2022 Episodic Spondylosis; intervertebral disc disorders; other back problems (8 sources) Sacrococcygeal disorders, not elsewhere classified; Translations: [Dorsalgia, unspecified] Onset: 05-21-2022 Episodic Thyroid disorders (14 sources) Hypothyroidism, unspecified; Translations: [Hypothyroidism] Onset: 03-24-2022 [...] breast cancer History of colonoscopy with polypectomy MT (myocardial infarction) (2013) Morbid obesity with body [...] catheterization (07/2014) Comments: HAD HEART CATH AFTER MT DURING KNEE SCOPE. NO STENTS WERE PLACED [...] cancer: Aunt/Uncle. (more content not included)... Normal [facility] Urology Office/Clinic Noteon 09-01-2023 Urology Office/Clinic [...] breast cancer History of colonoscopy with polypectomy MT (myocardial infarction) (2013) Morbid obesity with body [...] drugs (Rash) Electronically signed by Kevin Joaquin 09/01/23 12:02 EST Normal [facility] Surgery Office/Clinic Noteon 07-20-2023 Surgery Office/Clinic [...] inguinal, left History of colonoscopy with polypectomy MT (myocardial infarction) (2013) Morbid obesity with body [...] Emely Zendejas PA-C 07/21/2023 08:27 EST Normal [facility] Operative Reporton 3 Operative Report Indication for Surge ry Patient is a 73 year old female with a symptomatic reducible left inguinal hernia Preoperative Diagnosis Symptomatic left inguinal hernia Postoperative Diagnosis same Operation Robotic left inguinal hernia repair Surgeon(s) [place] Low Heel Builder Cristiana TIDWELL Anesthesia Hempfling BUSINESS INTELLIGENCE DIRECTOR, GET Estimated Blood Loss 5 ml Urine [...] Jovan Betancourt MD 07/01/23 10:19 EDT Normal [facility] Plastic Surgery Visit Report on 06-30-2023 Plastic Surgery Visit Report [facility] Plastic Reconstructive Surgery [address] [place], [place] [address] OFFICE VISIT Date of Service: 06/30/23 MR#: [id number] Acct: [id number] Name: BERENICE NOLASCO Rep #: [id number] : 1950 Provider: Dr. Apolinar flores MD Age/Sex: 73/F Location: [facility] Status: Signed Intake Vital Signs 05/05/23 14:25 [...] Reasons: preop #1 left breast red/ right florist manager port Chief Complaint: left breast red [...] mg PO HS 05/05/23 [History Confirmed 06/30/23] jebcmrym-diq-bvixw acid 0.4 mg-lycopene 300 mcg-lutein 250 mcg [...] Social History (Updated 05/05/23 @ 14:23 by Elni Beckwith) Smoking Status: Never smoker alcohol intake: current substance use type: does not use additional social history: Aspirin use daily. Occasional Ibuprofen use. HPI preop #1 left breast red/ right florist manager port Details: Berenice comes in for [...] Z85.3 Breast hypertrophy N62 Breast asymmetry between jamul breast and reconstructed breast N65.1 Assessment (more content not included)... Normal [facility] .eGFRon 06-01-2023 GFR/1.73 sq M.predicted MDRD (S/P/Bld) [Vol rate/Area] mL/min/{1.73_m2} Normal >=60 [facility] Comment on above: Order Comment: Order added by Discern rule Result Comment: [facility] Laboratories have implemented the eGFR [...] years Performed By: #### E GFR #### [address] [address] CBC w/ Diffon 06-01-2023 Erythrocyte distribution width (RBC) [Ratio] 14.9 % High 11.6-14.8 [facility] Comment on above: Performed By: #### C BC #### [place] [address] Hematocrit (Bld) [Volume fraction] 41.0 % Normal 36.0-46.0 [facility] Comment on above: Performed By: #### C BC #### [place] [address] Hemoglobin (Bld) [Mass/Vol] 13.8 g/dL Normal 12.0-16.0 [facility] Comment on above: Performed By: #### C BC #### [place] [address] MCH (RBC) [Entitic mass] 28.6 pg Normal 27.0-35.0 [facility] Comment on above: Performed By: #### C BC #### [place] [address] MCHC 33.7 % Normal 31.0-37.0 [facility] Comment on above: Performed By: #### C BC #### [place] [address] MCV (RBC) [Entitic vol] 85.0 fL Normal 80.0-100.0 [facility] Comment on above: Performed By: #### C BC #### [place] [address] Platelet 180 x10*3/mcL Normal 150-450 [facility] Comment on above: Performed By: #### C BC #### [place] [address] Platelet mean volume (Bld) [Entitic vol] 8.6 fL Normal 7.5-11.5 [facility] Comment on above: Performed By: #### C BC #### [place] [address] RBC 4.82 x10*6/mcL Normal 3.80-5.20 [facility] Comment on above: Performed By: #### C BC #### [place] [address] WBC 8.6 x10*3/mcL Normal 4.5-11.0 [facility] Comment on above: Performed By: #### C BC #### [place] [address] CMPon 06-01-2023 Albumin [Mass/Vol] 4.1 g/dL Normal 3.7-5.3 [facility] Comment on above: Performed By: #### C OMP #### [place] [address] Albumin/Globulin [Mass ratio] 1.5 {ratio} Normal 1.1-2.2 [facility] Comment on above: Performed By: #### C OMP #### [place] [address] Alk Phos 130 IU/L High 34-104 [facility] Comment on above: Performed By: #### C OMP #### [place] [address] ALT [Catalytic activity/Vol] 37 U/L Normal 7-52 [facility] Comment on above: Performed By: #### C OMP #### [place] [address] Anion gap [Moles/Vol] 10 mmol/L Normal 7-17 [facility] Comment on above: Performed By: #### C OMP #### [place] [address] AST [Catalytic activity/Vol] 31 U/L Normal 13-39 [facility] Comment on above: Performed By: #### C OMP #### [place] [address] Bili Total 0.6 mg/dL Normal 0.3-1.0 [facility] Comment on above: Performed By: #### C OMP #### [place] [address] Calcium [Mass/Vol] 9.4 mg/dL Normal 8.6-10.3 [facility] Comment on above: Performed By: #### C OMP #### [place] [address] Chloride 103 IU/L Normal 98-107 [facility] Comment on above: Performed By: #### C OMP #### [address] [address] CO2 [Moles/Vol] 28 mmol/L Normal 21-31 [facility] Comment on above: Performed By: #### C OMP #### [address] [address] Creatinine [Mass/Vol] 0.79 mg/dL Normal 0.60-1.20 [facility] Comment on above: Performed By: #### C OMP #### [place] [address] Glucose [Mass/Vol] 108 mg/dL High 70-99 [facility] Comment on above: Performed By: #### C OMP #### [place] [address] Potassium [Moles/Vol] 4.2 mmol/L Normal 3.4-4.8 [facility] Comment on above: Performed By: #### C OMP #### [place] [address] Protein [Mass/Vol] 6.8 g/dL Normal 6.0-8.3 [facility] Comment on above: Performed By: #### C OMP #### [place] [address] Sodium [Moles/Vol] 137 mmol/L Normal 136-145 [facility] Comment on above: Performed By: #### C OMP #### [place] [address] Urea nitrogen [Mass/Vol] 17 mg/dL Normal 7-25 [facility] Comment on above: Performed By: #### C OMP #### [place] [id number] Urea nitrogen/Creatini ne [Mass ratio] 21.5 mg/mg High 10.0-20.0 [facility] Comment on above: Performed By: #### C OMP #### [address] [address] Diff Autoon 06-01-2023 Baso Absolute 0.0 x10*3/mcL Normal 0.0-0.2 [facility] Comment on above: Performed By: #### C OMP #### [address] [address] Basophils/100 WBC (Bld) 0.3 % Normal 0.0-1.5 [facility] Comment on above: Performed By: #### C OMP #### [address] [address] Eos Absolute 0.1 x10*3/mcL Normal 0.0-0.4 [facility] Comment on above: Performed By: #### C OMP #### [address] [address] Eosinophils/100 WBC (Bld) 1.1 % Normal 0.0-5.4 [facility] Comment on above: Performed By: #### C OMP #### [address] [address] Lymph Absolute 2.0 x10*3/mcL Normal 1.0-4.8 [facility] Comment on above: Performed By: #### C OMP #### [address] [address] Lymphocytes/100 WBC (Bld) 23.1 % Low 27.2-40.8 [facility] Comment on above: Performed By: #### C OMP #### [address] [address] [place] Absolute 0.4 x10*3/mcL Normal 0.1-1.1 [facility] Comment on above: Performed By: #### C OMP #### [address] [address] Monocytes/100 WBC (Bld) 5.1 % Normal 3.7-11.9 [facility] Comment on above: Performed By: #### C OMP #### [address] [address] Neutro Absolute 6.1 x10*3/mcL Normal 1.8-7.7 [facility] Comment on above: Performed By: #### C OMP #### [facility] [address] [place] [address] Neutro Auto 70.4 % Normal 47.2-70.8 [facility] Comment on above: Performed By: #### C OMP #### [address] [address] Plastic Surgery Visit Report on 05-05-2023 Plastic Surgery Visit Report [facility] Plastic Reconstructive Surgery [address], [address] [place], [place] [address] OFFICE VISIT Date of Service: 05/05/23 MR#: [id number] Acct: [id number] Name: BERENICE NOLASCO Rep #: [id number] : 1950 Provider: Dr. Apolinar flores MD Age/Sex: 73/F Location: [facility] Status: Signed Intake Vital Signs 05/05/23 14:25 Height 5 ft 6 in Weight: 217 lb BMI 35.0 BP 120/78 Blood Pressure Location Lt brachial Position Sitting Respiration 16 Pulse 70 Pulse Source Monitor Temp 97.7 F L Temp Source Temporal Pulse Oximetry (%) 96 Oxygen Delivery Method room air Intake Visit Reasons: Consult Chief Complaint: Right breast reconsruction consult Maxillofacial Surgeon Required: No Accompanied by: Is patient in [...] mg PO HS 05/05/23 [History Confirmed 05/05/23] sltvapht-joq-mfjej acid 0.4 mg-lycopene 300 mcg-lutein 250 mcg tablet (Complete Multivitamin Adult 50 Plus) 1 tab PO DAILY 05/05/23 [History Confirmed 05/05/23] semaglutide 0.25 mg or 0.5 mg (2 mg/3 mL) subcutaneous pen injector (Ozempic) 0.25 mg subcut QWEEK 05/05/23 [History Confirmed 05/05/23] simvastatin 20 mg tablet 20 mg PO DAILY 05/05/23 [History Confirmed 05/05/23] PFSH Medical History (Updated 05/05/23 @ 15:33 [...] after having undergone reconstruction with a tissue florist manager. Her initial right mastectomy was done approximately 30 years ago. She underwent placement of a tissue florist manager in . Her last fill was in . She has a total of 390 cc of saline and the implant which is the capacity of the florist manager as a permanent prosthesis. Her implant is a [place] smooth round spectrum style 1400. Reference #[id number] has decided to leave the florist manager and is a permanent implant. We [...] incontinence Exam Chest Other: Patient with a florist manager in place on the right breast. The port is palpable in the in (more content not included)... Normal [facility] [place] Urology Office/Clinic Noteon 02-18-2023 Urology Office/Clinic Note [...] breast cancer History of colonoscopy with polypectomy MT (myocardial infarction) Morbid obesity with body mass [...] by Kevin Joaquin 02/18/23 15:27 EDT Normal [facility] Urology Office/Clinic Noteon 12-23-2022 Urology Office/Clinic [...] chew, # 30 tabs, 11 Refill(s), [facility]acy: [id number] Problem List/Past Medical History Ongoing Arthritis of left hip CAD (coronary artery disease) Chronic cough Chronic GERD CPAP/BiPAP dependent Cystocele Depression Drug-induced obesity with body mass index (BMI) of 35 to less than 40 Encounter for gynecological examination (general) (routine) without abnormal findings Feeling of incomplete bladder emptying GERD H/O cardiac catheterization History of breast cancer History of colonoscopy with polypectomy Hyperlipidemia MT (myocardial infarction) Morbid obesity with body mass [...] by Kevin Joaquin 12/23/22 17:08 EDT Normal [facility] VC CONSULT FOLLOWUPon 2022 VC CONSULT FOLLOWUP Patient: BERENICE NOLASCO Exam Date: 12/16/2022 : 1950 Gender:F Ordering : SHAIKH Quirino VILLAGRAN . Admission #: [id number] Family : Order #: [id number] CLICK HERE TO VIEW EXAM RADIOLOGY REPORT [...] MD on 12/16/2022 at 14:59 Normal [facility] CBC AUTO DIFFon 09-16-2022 BASO # 0.0 103/ul Normal 0.0-0.1 [facility] Comment on above: Performed By: #### C BC #### [facility] [address] [place] [address] Dr. Danielle Penaloza Basophils/100 WBC (Bld) 0.5 % Normal 0.2-2.0 [facility] Comment on above: Performed By: #### C BC #### [facility] [address] [address] [address] Danielle Penaloza EO # 0.1 103/ul Normal 0.0-0.7 [facility] Comment on above: Performed By: #### C BC #### [facility] [address] [address] [address] Danielle Penaloza Eosinophils/100 WBC (Bld) 1.2 % Normal 0.9-7.0 [facility] Comment on above: Performed By: #### C BC #### [facility] [address] [address] [address] Danielle Penaloza Erythrocyte distribution width (RBC) [Ratio] 14.2 % Normal 11.0-15.0 [facility] Comment on above: Performed By: #### C BC #### [facility] [address] [place] [address] Dr. Danielle Penaloza Hematocrit (Bld) [Volume fraction] 42.5 % Normal 36.0-48.0 [facility] Comment on above: Performed By: #### C BC #### [facility] [address] [place] [address] Dr. Danielle Penaloza Hemoglobin (Bld) [Mass/Vol] 14.1 g/dL Normal 12.0-16.0 [facility] Comment on above: Performed By: #### C BC #### [facility] [address] [place] [address] Dr. Danielle Penaloza IG # 0.02 10e3/ul Normal 0.00-0.03 [facility] Comment on above: Performed By: #### C BC #### [facility] [address] [place] [address] Dr. Danielle Penaloza IG % 0.2 % Normal 0.0-0.5 [facility] Comment on above: Performed By: #### C BC #### [facility] [address] [place] [address] Dr. Danielle Penaloza LYMPH # 1.9 103/ul Normal 1.2-3.8 [facility] Comment on above: Performed By: #### C BC #### [facility] [address] [place] [address] Dr. Danielle Penaloza Lymphocytes/100 WBC (Bld) 23.4 % Normal 20.5-60.0 [facility] Comment on above: Performed By: #### C BC #### [facility] [address] [place] [address] Dr. Danielle Penaloza MANUAL DIFF REQ NO Normal [facility] Comment on above: Performed By: #### C BC #### [facility] [address] [place] [address] Dr. Danielle Penaloza MCH (RBC) [Entitic mass] 28.1 pg Normal 26.7-34.0 [facility] Comment on above: Performed By: #### C BC #### [facility] [address] [place] [address] Dr. Danielle Penaloza MCHC (RBC) [Mass/Vol] 33.2 g/dL Normal 29.9-35.2 [facility] Comment on above: Performed By: #### C BC #### [facility] [address] [place] [address] Dr. Danielle Penaloza MCV (RBC) [Entitic vol] 84.8 fL Normal 81.0-99.0 [facility] Comment on above: Performed By: #### C BC #### [facility] [address] [place] [address] Dr. Danielle Penaloza MONO # 0.5 103/ul Normal 0.3-0.8 [facility] Comment on above: Performed By: #### C BC #### [facility] [address] [place] [address] Dr. Danielle Penaloza Monocytes/100 WBC (Bld) 6.0 % Normal 1.7-12.0 [facility] Comment on above: Performed By: #### C BC #### [facility] [address] [place] [address] Dr. Danielle Penaloza NEUT # 5.5 103/ul Normal 1.4-6.5 [facility] Comment on above: Performed By: #### C BC #### [facility] [address] [place] [address] Dr. Danielle Penaloza Neutrophils/100 WBC (Bld) 68.7 % Normal 43.0-75.0 [facility] Comment on above: Performed By: #### C BC #### [facility] [address] [place] [address] Dr. Danielle Penaloza Platelet mean volume (Bld) [Entitic vol] 9.9 fL Normal 9.5-13.5 [facility] Comment on above: Performed By: #### C BC #### [facility] [address] [address] [address] Danielle Penaloza PLT 186 103/ul Normal 150-450 [facility] Comment on above: Performed By: #### C BC #### [facility] [address] [place] [address] Dr. Danielle Penaloza RBC 5.01 106/ul Normal 4.20-5.40 [facility] Comment on above: Performed By: #### C BC #### [facility] [address] [place] [address] Dr. Danielle Penaloza WBC 8.1 103/ul Normal 4.0-11.0 [facility] Comment on above: Performed By: #### C BC #### [facility] [address] [place] [address] Dr. Danielle Penaloza PROF CHEM 8 (BAS METB)on Anion gap [Moles/Vol] 10.8 mmol/L Normal [facility] Comment on above: Performed By: #### B MP, TSH #### [facility] [address] [place] [address] Dr. Danielle Penaloza Calcium [Mass/Vol] 9.2 mg/dL Normal 8.5-10.1 [facility] Comment on above: Performed By: #### B MP, TSH #### [facility] [address] [place] [address] Dr. Danielle Penaloza Chloride [Moles/Vol] 103 mmol/L Normal 98-107 [facility] Comment on above: Performed By: #### B MP, TSH #### [facility] [address] [place] [address] Dr. Danielle Penaloza CO2 [Moles/Vol] 30.5 mmol/L Normal 21.0-32.0 [facility] Comment on above: Performed By: #### B MP, TSH #### [facility] [address] [place] [address] Dr. Danielle Penaloza Creatinine [Mass/Vol] 0.63 mg/dL Normal 0.55-1.02 [facility] Comment on above: Performed By: #### B MP, TSH #### [facility] [address] [address] [address] Danielle Penaloza EGFR-AF CYMRO >60 Normal >=60 [facility] Comment on above: Performed By: #### B MP, TSH #### [facility] [address] [address] [address] Danielle Penaloza EGFR-NON AF CYMRO >60 Normal >=60 [facility] Comment on above: Performed By: #### B MP, TSH #### [facility] [address] [address] [address] Danielle Penaloza Glucose [Mass/Vol] 101 mg/dL Normal 74-106 [facility] Comment on above: Performed By: #### B MP, TSH #### [facility] [address] [place] [address] Dr. Danielle Penaloza Potassium [Moles/Vol] 4.3 mmol/L Normal 3.5-5.1 [facility] Comment on above: Performed By: #### B MP, TSH #### [facility] [address] [place] [address] Dr. Danielle Penaloza Sodium [Moles/Vol] 140 mmol/L Normal 136-145 [facility] Comment on above: Performed By: #### B MP, TSH #### [facility] [address] [place] [address] Dr. Danielle Penaloza Urea nitrogen [Mass/Vol] 17.0 mg/dL Normal 7.0-18.0 [facility] Comment on above: Performed By: #### B MP, TSH #### [facility] [address] [place] [address] Dr. Danielle Penaloza Urea nitrogen/Creatini ne [Mass ratio] 27.0 mg/mg Normal [facility] Comment on above: Performed By: #### B MP, TSH #### [facility] [address] [place] [address] Dr. Danielle Penaloza TSHon 09-16-2022 TSH 2.028 uIU/mL Normal 0.358-3.740 [facility] Comment on above: Performed By: #### B MP, TSH #### [facility] [id number] Danielle Penaloza VC COMP CONSULTATIONon 09-16 VC COMP CONSULTATION Patient: BERENICE NOLASCO Exam Date: 09/16/2022 : 1950 Gender:F Ordering : SHAIKH Quirino Harry Admission #: [id number] Family : Order #: [id number] CLICK HERE TO VIEW EXAM RADIOLOGY REPORT [...] arterial disease 5. CEAP: C3, AP, AP, [place] PLAN: 1. Use of compression stockings 2. [...] Boudreaux M.D. on 09/16/2022 at 15:49 Normal [facility] VC VENOUS REFLUX CHARLIE LMTon 0 09-16-2022 VC VENOUS REFLUX CHARLIE LMT Patient: BERENICE NOLASCO Exam Date: 09/16/2022 : 1950 Gender:F Ordering : SHAIKH Quirino VILLAGRAN . Admission #: [id number] Family : Order #: [id number] CLICK HERE TO VIEW EXAM RADIOLOGY REPORT [...] thrombus. Compressibility: Normal. Flow: Deep venous reflux. Gate Technician: Prox medial lower leg perf measures 4.3 [...] M.D. on 09/16/2022 at 15:41 Normal [facility] XR CHEST PA AND LATERALon XR [...] Degenerative changes of the thoracic spine. Normal [facility] XR Chest PA and Lateralon Findings and [...] abnormality. Degenerative changes of the thoracic spine. [facility] Radiology Study observation (narrative) [employer] XR Chest PA and LateralOrder ed By: Silvestre Rivera on 09-15-2022 [employer] Work Phone: ECHOCARDIO M/2D COMPLETEon 1 ECHOCARDIO M/2D COMPLETE Patient: BERENICE NOLASCO Exam Date: 06/22/2022 : 1950 Gender:F Ordering : SHAIKH Quirino VILLAGRAN . Admission #: [id number] Family : APOLINAR HENRY Order #: [id number] CLICK HERE TO VIEW EXAM ECHOCARDIOGRAM REPORT [...] Mc M.D. on 06/23/2022 at 14:19 Normal [facility] FASTINGon 06-16-2022 A:G RATIO 1.6 RATIO Normal 1.3-2.2 [facility] Comment on above: Performed By: #### C MPF #### Testing performed at [address] [address] ALBUMIN 4.4 G/dl Normal 3.5-5.0 [facility] Comment on above: Performed By: #### C MPF #### Testing performed at [address] [address] ALP [Catalytic activity/Vol] 124 U/L Normal 38-126 [facility] Comment on above: Performed By: #### C MPF #### Testing performed at [facility] [address] [place] [address] ALT [Catalytic activity/Vol] 35 U/L High <35 [facility] Comment on above: Performed By: #### C MPF #### Testing performed at [facility] [address] [place] [address] AST [Catalytic activity/Vol] 31 U/L Normal 14-36 [facility] Comment on above: Performed By: #### C MPF #### Testing performed at [address] [address] Bilirubin [Mass/Vol] 0.5 mg/dL Normal 0.2-1.3 [facility] Comment on above: Performed By: #### C MPF #### Testing performed at [address] [address] Calcium [Mass/Vol] 8.8 mg/dL Normal 8.4-10.2 [facility] Comment on above: Performed By: #### C MPF #### Testing performed at [address] [address] Chloride [Moles/Vol] 102 mmol/L Normal 98-107 [facility] Comment on above: Result Comment: Mendez caraballo note: Triglyceride levels of 600mg/dL or higher may positively bias chloride results by approximately 2.1 mmol Performed By: #### C MPF #### Testing performed at [address] [address] CO2 [Moles/Vol] 28 mmol/L Normal 22-30 [facility] Comment on above: Performed By: #### C MPF #### Testing performed at [address] [address] Creatinine [Mass/Vol] 0.60 mg/dL Low 0.7-1.2 [facility] Comment on above: Performed By: #### C MPF #### Testing performed at [address] [address] EST. GFR, 126 ml/min/1.73sq.m Normal [facility] Comment on above: Performed By: #### C MPF #### Testing performed at [address] [id number] EST. GFR,Non 104 ml/min/1.73sq.m Normal [facility] Comment on above: Performed By: #### C MPF #### Testing performed at [address] [id number] GFR Information Average GFR for 70+ years old = 75. Normal [facility] Comment on above: Result Comment: Administrative Assistant Front Desk kurtis Kidney disease, GFR = <60. Kidney failure, GFR = <15. The GFR estimate is not adjusted for extreme body surface area or acute process, nor has it been validated for women or ethnic groups other than and . Testing performed at [address] [address] Performed By: #### C MPF #### Testing performed at [address] [id number] Glucose [Mass/Vol] 98 mg/dL Normal 70-100 [facility] Comment on above: Result Comment: NORMAL <100 mg/dL PREDIABETES 101-126 mg/dL DIABETES 126 mg/dL or higher Performed By: #### C MPF #### [place] [address] Potassium [Moles/Vol] 4.3 mmol/L Normal 3.5-5.1 [facility] Comment on above: Performed By: #### C MPF #### Testing performed at [address] [id number] Protein [Mass/Vol] 7.2 g/dL Normal 6.3-8.2 [facility] Comment on above: Performed By: #### C MPF #### Testing performed at [address] [id number] Sodium [Moles/Vol] 139 mmol/L Normal 137-145 [facility] Comment on above: Performed By: #### C MPF #### Testing performed at [address] [id number] Urea nitrogen [Mass/Vol] 14 mg/dL Normal 7-20 [facility] Comment on above: Performed By: #### C MPF #### Testing performed at [facility] [address] [place] [address] FREE T3on 03-24-2022 FREE T3 2.69 pg/mlL Normal 2.18-3.98 [facility] Comment on above: Performed By: #### B MP, TSH #### [facility] [address] [place] [address] Dr. Danielle Penaloza TSHon 03-24-2022 TSH 2.001 uIU/mL Normal 0.358-3.740 [facility] Comment on above: Performed By: #### T SH, FT3 #### [facility] [address] [place] [address] [address] [address] Danielle Penaloza Covid-19 PCR (CVDTBH)on 02-12 SARS-CoV-2 (COVID-19) RNA ADELAIDA+probe Ql (Unsp spec) Not detected Normal NOT DETECTED [facility] Comment on above: Result Comment: This test is not yet approved or cleared by the [place] FDA. When there are no FDA-approved or cleared tests available, and other criteria are met, FDA can make tests available under an emergency access mechanism called an Emergency Use Authorization (EUA). The EUA for this test is supported by the Operations Research Engineer of Health and Human Service's (HHS's) declaration [...] consistent with SARS-CoV-2. Performed By: #### C VDTBH #### [facility] [address] [place] [address] [address] [address] Daniel[address] Penaloza Operative Reporton 0 Operative Report MR#: [id number] [facility] Pt. Name: Berenice Nolasco Room #: 0C Discharge Date: Birthdate: 1950 OPERATIVE REPORT DATE OF SURGERY: 06/07/2020 SURGEON: Adam Skinner M.D. PREOPERATIVE DIAGNOSIS: Right knee medial and lateral meniscal tears. POSTOPERATIVE DIAGNOSES: 1. Right knee medial and lateral meniscal tears. 2. Right knee Hoffa's fat pad hypertrophy and inflammation. FOOD SERVICE ORDER CLERK: Bindu Rick M.D. ANESTHESIA: General. PROCEDURES PERFORMED: [...] initiation of physical therapy. Electronically Signed by: Adma Skinner M.D. 06/07/2020 01:53 P Adam Skinner M.D. Date Dict: 06/07/2020/08:47 A/Adam Skinner M.D. Date Trans: 06/07/2020 09:06 Sonny/irena [id number] cc: Trino Agee M.D. [address] [facility] [address] Normal [facility] POC GLUCOSE LABon 06-07-2020 Glucose [Mass/Vol] 109 mg/dL High 70-100 [facility] Comment on above: Performed By: #### 8 5499 #### [address] [address] [place] [address], [facility] *SARS-CoV-2 COVID-19on 06-04 [id number] Not Detected Normal Not Detected [facility] Comment on above: Order Comment: The A ptima SARS-CoV-2 assay is a nucleic acid amplification test intended for the qualitative detection of RNA from SARS-CoV-2 isolated and purified from nasopharyngeal (HAND BOBBIN CLEANER),oropharyngeal (OP), nasal swab, sputum, and bronchoalveolar lavage (BAL) specimens from patients with signs and symptoms of infection who are suspected of COVID-19. Results are for the identification of SARS-CoV-2 RNA. The SARS-CoV-2 RNA is generally detectable during the acute phase of infection. The Aptima SARS-CoV-2 Assay on the ForceManager and ForceManager Fusion system is intended for use by laboratory personnel specifically instructed and trained in the operation of the Gardner and Gardner Fusion system. The Aptima SARS-CoV-2 assay is [...] information. Performed By: #### 3 1792 #### [address] KNEE RIGHT 3 [facility] 0 KNEE RIGHT 3 [facility] Department of Radiology [address] [place] [id number] Patient Name: BERENICE NOLASCO : 1950 Sex: F Age: Race: White Pt. Location: Patient Status: O Ordered Date: 01/22/2020 11:35:00 AM Completed Date: 01/22/2020 11:43 AM Requesting Provider: ADAM SKINNER Attending Provider: ADAM SKINNER Report Copy To: NADERER, TRINO Signs & Symptoms: S83.281A Oth tear of lat mensc, current injury, right knee, init I10 History: Nina Comments: Exam: KNEE RIGHT 3 VWS KNEE RIGHT 3 S 01/22/2020 11:43 AM [...] reports Electronically signed: DELANO BLANCO. Transcribed by: [email or web address], User Resident: YONY PAN Electronically Signed by: DELANO BLANCO @ 01/22/2020 02:18 PM I personally read this/these film(s) with this resident Normal [facility] ED PROV NOTEon 08-06-2018 Protein mass conc HNO ID: [id number] thor: Cas Estrada: (none)Author Type: PhysicianType: ED Provider NotesFiled: 08/13/2018 10:43 AMNote Text:[facility] [place] [id number] INFORMATION MANAGEMENTEMERGENCY DEPARTMENT REPORTPatient: BERENICE NOLASCO JOEL A M.D. as dictated by GRUPO BROUSSARD, MELINA-[id number] FStatus: [facility] EDDate [facility]: 08/05/18CHIEF COMPLAINTThis is a [...] M.D. Signed By: CAS CANTU M.D.Tests performed at:[address] [phone] Normal [facility] ED REPORTon 08-06-2018 ED REPORT [place], [place] [id number] INFORMATION MANAGEMENTEMERLAIRD [facility]OSPITALCY DEPARTMENT REPORTPatient: BERENICE NOLASCO JOEL A M.D. as dictated by JABARI [id number] FStatus: [facility] EDDate of Service: 08/05/18CHIEF COMPLAINTThis is a 68-year-old female who presents with a headache and nausea for 2 days.HISTORY OF PRESENT ILLNESSThe patient is visiting family from out of town. She has not had an appetite, has beennauseous, and had a headache for the last few days, so became concerned and presented [facility] emergency room.PAST MEDICAL HISTORYPast medical history of [...] the plan of care will be dischargedhome.Bennett te sinusitis. 08/13/18 1027 CAS CANTU M.D.cc: CAS CANTU M.D. << Signature on File>> Reported By: CAS CANTU M.D. Signed By: CAS CANTU M.D.Tests performed at:[address] [phone] Normal [facility] 08-05-2018 [facility] Comment on above: Performed By: #### L 100.0440 ####ML - [facility] [address] [address] No Growth Normal [facility] Comment on above: Performed By: #### M 105.0000 ####ML - [id number] [place] [address] [facility] Anion gap 3 molar conc 17.5 mmol/L Normal 15-22 [facility] Comment on above: Performed By: #### L 100.0010, L301.0120 #### - [id number] [place] [address] Calcium mass conc 8.7 mg/dL Low 8.8-10.2 [facility] Comment on above: Performed By: #### L 100.0010, L301.0120 ####[facility] [place] [address] Chloride molar conc 101 mmol/L Normal 98-107 [facility] Comment on above: Performed By: #### L 100.0010, L301.0120 #### - [address] [address] Creatinine mass conc 0.53 mg/dL Normal 0.50-0.90 [facility] Comment on above: Performed By: #### L 100.0010, L301.0120 ####[address] [address] eGFR if AFR MELISSA > 60 ml/min/1.73m2 Normal [facility] Comment on above: Result Comment: eGFR >= [...] (www.nkdep.nih.gov). Performed By: #### L 100.0010, L301.0120 #### - [id number] [place] [address] eGFR nonAFR Melissa > 60 ml/Min/1.73m2 Normal [facility] Comment on above: Performed By: #### L 100.0010, L301.0120 ####ML - [id number] [place] [address] Glucose mass conc 122 mg/dL High 82-115 [facility] Comment on above: Performed By: #### L 100.0010, L301.0120 ####ML - [id number] [place] [address] Potassium molar conc 3.5 mmol/L Normal 3.5-5.0 [facility] Comment on above: Performed By: #### L 100.0010, L301.0120 ####ML - [id number] [place] [address] Sodium molar conc 138 mmol/L Normal 135-145 [facility] Comment on above: Performed By: #### L 100.0010, L301.0120 ####ML - [id number] [place] [address] TCO2 23 mmol/L Normal 22-29 [facility] Comment on above: Performed By: #### L 100.0010, L301.0120 ####ML - [id number] [place] [address] Urea nitrogen mass conc 14 mg/dL Normal 8-23 [facility] Comment on above: Performed By: #### L 100.0010, L301.0120 ####ML - [id number] [place] [address] CBCon 08-05-2018 Basophils Auto #/vol (Bld) 0.00 x10(3) Normal 0.00-0.10 [facility] Comment on above: Performed By: #### L 200.0010 ####ML - [id number] [place] [address] Basophils/100 WBC Auto (Bld) 0.2 % Normal 0.0-1.0 [facility] Comment on above: Performed By: #### L 200.0010 ####ML - [id number] [place] [address] Eosinophils Auto #/vol (Bld) 0.00 x10(3) Normal 0.00-0.54 [facility] Comment on above: Performed By: #### L 200.0010 ####[address] [address] Eosinophils/100 WBC Auto (Bld) 0.1 % Low 0.5-4.9 [facility] Comment on above: Performed By: #### L 200.0010 ####[address] [address] Erythrocyte distribution width Auto Ratio (RBC) 15.7 % Normal 12.5-15.7 [facility] Comment on above: Performed By: #### L 200.0010 ####[address] [address] Hematocrit Auto Volume Fraction (Bld) 39.4 % Normal 36.0-48.0 [facility] Comment on above: Performed By: #### L 200.0010 ####[address] [address] Hemoglobin mass conc (Bld) 13.8 g/dL Normal 12.0-16.0 [facility] Comment on above: Performed By: #### L 200.0010 ####[address] [address] Lymphocytes Auto #/vol (Bld) 0.50 x10(3) Low 1.00-3.50 [facility] Comment on above: Performed By: #### L 200.0010 ####[address] [address] Lymphocytes/100 WBC Auto (Bld) 7.8 % Low 16.0-48.0 [facility] Comment on above: Performed By: #### L 200.0010 ####[address] [address] MCH Auto Entitic mass (RBC) 27.6 pg Low 28.5-32.9 [facility] Comment on above: Performed By: #### L 200.0010 ####[address] [address] MCHC Auto mass conc (RBC) 35.1 g/dL Normal 33.0-36.0 [facility] Comment on above: Performed By: #### L 200.0010 ####[facility] [address] [place] [address] MCV Auto Entitic volume (RBC) 78.7 fL Low 80.0-99.0 [facility] Comment on above: Performed By: #### L 200.0010 ####ML [facility] I[address] [place] [address] Monocytes Auto #/vol (Bld) 0.40 x10(3) Normal 0.30-0.80 [facility] Comment on above: Performed By: #### L 200.0010 ####ML [facility] [id number] [place] [address] Monocytes/100 WBC Auto (Bld) 5.4 % Normal 4.3-11.2 [facility] Comment on above: Performed By: #### L 200.0010 ####ML [facility] [id number] [place] [address] Neutrophils Auto #/vol (Bld) 5.70 x10(3) Normal 1.40-6.50 [facility] Comment on above: Performed By: #### L 200.0010 ####ML [facility] TYL[address] [place] [address] Neutrophils/100 WBC Auto (Bld) 86.5 % High 45.0-73.0 [facility] Comment on above: Performed By: #### L 200.0010 ####ML [facility] PANSSQ[address]RXM[address] [place] [address] Platelet mean volume Auto Entitic volume (Bld) 8.1 fL Normal 7.5-9.5 [facility] Comment on above: Performed By: #### L 200.0010 ####ML [facility] [id number] [place] [address] Platelets Auto #/vol (Bld) 115 X10(3) Low 150-450 [facility] Comment on above: Performed By: #### L 200.0010 ####ML [facility] EDUKLSSQPQ778 [place] [address] RBC Auto #/vol (Bld) 5.00 x10(6) Normal 3.30-5.00 [facility] Comment on above: Performed By: #### L 200.0010 ####ML - [id number] [place] [address] WBC Auto #/vol (Bld) 6.6 x10(3) Normal 4.5-10.0 [facility] Comment on above: Performed By: #### L 200.0010 ####ML - CAQALALLHQ[address] [place] [address] CHEST (TWO VIEWS) - CXRon CHEST (TWO VIEWS) - CXR [address] [address]Yyhx: BERENICE NOLASCO KPhys: GRUPO BROUSSARD HAND BOBBIN CLEANER-C (ED): [birth year] Age: 68 Sex: FAcct: [id number] Loc: EDExam Date: 08/05/18 Status: REG ERRadiology No.: [id number] Number: [id number] # Type/[id number] RAD / CHEST (TWO VIEWS) - CXRTwo-view chestClinical statement: Weakness. History of right mastectomyComparison study: NoneFindings:The heart size is normal. The left diaphragm is elevated. There is nopulmonary consolidation. No pneumothorax. Multilevel degenerative changes seenin the spine. Surgical clips identified in the right axilla.Impression:Elevated left diaphragm. No focal consolidationProfessional interpretation provided by [facility]-PC-60.Thank you for this referral.< >Reported By: XANDER MARTINEZ M.D.Signed In NovaPro By: XANDER MARTINEZ M.D. << Signature on File>> Reported By: XANDER MARTINEZ M.D. Signed By: XANDER MARTINEZ M.D.Tests performed at:[address] [phone] Normal [facility] CT BRAIN WITHOUT CONTRAST- C TBon 08-05-2018 CT BRAIN WITHOUT CONTRAST- CTB [address] [address]Peaq: BERENICE NOLASCO KPhys: AARTIGRUPO L HAND BOBBIN CLEANER-C (ED): 50 Age: 68 Sex: FAcct: [id number] Loc: EDExam Date: 08/05/18 Status: REG ERRadiology No.: [id number] Number: [id number] # Type/[id number] CT / CT BRAIN WITHOUT CONTRAST- CTBCT [...] algorithm.Professional interpretation provided by [facility] [place] [address].Thank you for this referral.< >Reported By: XANDER MARTINEZ M.D.Signed In NovaPro By: XANDER MARTINEZ M.D. << Signature on File>> Reported By: XANDER MARTINEZ M.D. Signed By: XANDER MARTINEZ M.D.Tests performed at:[address] [phone] Normal [facility] ED PROV NOTEon 08-05-2018 Protein mass conc HNO ID: [id number] thor: Cas Estrada: (none)Author Type: PhysicianType: ED Provider NotesFiled: 08/13/2018 10:42 AMNote Text:[place], [place] [address]AYHTDD INFORMATION MANAGEMENTEMERGENCY DEPARTMENT REPORTPatient: BERENICE NOLASCO JOEL A M.D.[id number]/[birth year] FStatus: [facility] EDDate of Service: 08/05/18CHIEF COMPLAINTHeadache.HISTORY OF PRESENT [...] are downgoing. There is no pronator drift. Kutzsumejsbf-gv-kiwu, milg-tk-sgxj.EMERGENCY DEPARTMENT COURSESent for CT which was negative. Labs were all pretty much negative and noUTI.CLINICAL DIAGNOSISCephalgia.PLANDisch arged to home to follow up with the family doctor and return ifproblems of any kind. She is treated for what is presumed to be a sinusinfection as well with antibiotics. She can return if worse or problemsof any kind. 08/13/18 1027 CAS CANTU M.D.cc: CSA CANTU M.D. << Signature on File>> Reported By: CAS CANTU M.D. Signed By: CAS CANTU M.D.Tests performed at:[place] [phone] Normal [facility] EMERGENCY DEPARTMENT REPORTo n 08-05-2018 EMERGENCY DEPARTMENT REPORT [place], [place] [address]MOQHOE INFORMATION MANAGEMENTEMERGENCY DEPARTMENT REPORTPatient: BERENICE NOLASCO JOEL A M.D.[id number]/[birth year]/50 FStatus: DEP ER EDDate of Service: 08/05/18CHIEF [...] are downgoing. There is no pronatordrift. Normal bejrrt-vr-mkho, jiam-oz-ztlv.EMERGENCY DEPARTMENT COURSESent for CT which was negative. Labs were all pretty much negative and no UTI.CLINICAL DIAGNOSISCephalgia.PLANDisch arged to home to follow up with [...] M.D. Signed By: CAS CANTU M.D.Tests performed at:[address] [phone] Normal [facility] FLU A & Bon 08-05-2018 FLU A Negative Normal NEGATIVE [facility] Comment on above: Order Comment: What is the source+ SWAB Performed By: #### L 400.0006 ####[address] [address] FLU B Negative Normal NEGATIVE [facility] Comment on above: Order Comment: What is the source+ SWAB Result Comment: Infe ction due to Flu A and Flu B can not be ruled out. Flu Aand/or Flu B antigen in the sample may be below detectionlimit of the test. The gold standard for Flu A and Flu B vicente viral culture. Performed By: #### L 400.0006 ####ML [address] [address] LACTIC ACIDon 08-05-2018 Lactate molar conc 0.8 mmol/L Normal 0.5-2.0 [facility] Comment on above: Performed By: #### L 100.0440 ####ML [address] [address] TROPONIN Ton 08-05-2018 Troponin T.cardiac mass conc ug/L Normal 0-0.010 [facility] Comment on above: Performed By: #### L 100.0010, L301.0120 ####ML [address] [address] UA W/C&Son 08-05-2018 Bilirubin Ql (U) Negative Normal NEGATIVE [facility] Comment on above: Order Comment: Urine Specimen Source+ CLEAN CATCH Performed By: #### L 200.3001 ####ML - [address] [address] Color Nom (U) YELLOW Normal YELLOW [facility] Comment on above: Order Comment: Urine Specimen Source+ CLEAN CATCH Performed By: #### L 200.3001 ####ML - [id number] [place] [address] Glucose Ql (U) Negative Normal NEGATIVE [facility] Comment on above: Order Comment: Urine Specimen Source+ CLEAN CATCH Performed By: #### L 200.3001 ####ML - [facility] [id number] [place] [address] Hemoglobin Test strip Ql (U) Negative Normal NEGATIVE [facility] Comment on above: Order Comment: Urine Specimen Source+ CLEAN CATCH Performed By: #### L 200.3001 ####ML - [id number] [place] [address] Leukocyte esterase Test strip Ql (U) Negative Normal NEGATIVE [facility] Comment on above: Order Comment: Urine Specimen Source+ CLEAN CATCH Performed By: #### L 200.3001 ####ML - [id number] [place] [address] Nitrite Test strip Ql (U) Negative Normal NEGATIVE [facility] Comment on above: Order Comment: Urine Specimen Source+ CLEAN CATCH Performed By: #### L 200.3001 ####ML - [id number] [place] [address] pH Test strip (U) 6.0 [pH] Normal 5.0-8.0 [facility] Comment on above: Order Comment: Urine Specimen Source+ CLEAN CATCH Performed By: #### L 200.3001 ####ML - [id number] [place] [address] Protein Test strip Ql (U) Negative Normal NEGATIVE [facility] Comment on above: Order Comment: Urine Specimen Source+ CLEAN CATCH Performed By: #### L 200.3001 ####ML - [id number] [place] [address] URINE APPEARANC CLEAR Normal CLEAR [facility] Comment on above: Order Comment: Urine Specimen Source+ CLEAN CATCH Performed By: #### L 200.3001 ####ML - [id number] [place] [address] URINE KETONE Negative Normal NEGATIVE [facility] Comment on above: Order Comment: Urine Specimen Source+ CLEAN CATCH Performed By: #### L 200.3001 ####ML - [id number] [place] [address] URINE SPECIFIC <=1.005 Normal 1.001-1.035 [facility] Comment on above: Order Comment: Urine Specimen Source+ CLEAN CATCH Performed By: #### L 200.3001 ####ML - [id number] [place] [address] URINE UROBILINO 0.2 EU/DL Normal 0.2-1.0 [facility] Comment on above: Order Comment: Urine Specimen Source+ CLEAN CATCH Performed By: #### L 200.3001 ####ML - [facility] [id number] [place] [address] Coding Summary.on 07-28-2017 Coding Summary. CODING DATE: 017 [facility] STATUS: PAYOR: Medicare ADMIT DX: REASON [...] Viv Good Date Saved: 07/28/2017 10:55 am Normal [facility] Vital Signs Date Time Vital Sign Value Performing Clinician Facility 11-01-2023 12:53-0500 Body height 167.64 cm MD Shaikh Villagran Work Phone: [facility] 11-01-2023 12:53-0500 Body mass index (BMI) [Ratio] 32.9 kg/m2 MD Shaikh Villagran Work Phone: [facility] 11-01-2023 12:53-0500 Body weight 92.58 kg MD Shaikh Villagran Work Phone: [facility] 11-01-2023 12:53-0500 Diastolic blood pressure 86 mm[Hg] MD Shaikh Villagran Work Phone: [facility] 02-19-2024 12:53-0500 Heart rate 71 /min MD Shaikh Villagran Work Phone: [facility] 11-01-2023 12:53-0500 Respiratory rate 18 /min MD Shaikh Villagran Work Phone: [facility] 11-01-2023 12:53-0500 SaO2% (BldA) [Mass fraction] 95 % MD Shaikh Villagran Work Phone: [facility] 11-01-2023 12:53-0500 Systolic blood pressure 127 mm[Hg] MD Shaikh Villagran Work Phone: [facility] 08-30-2023 10:00-0500 Body height 167.64 cm MD Shaikh Villagran Work Phone: [facility] 08-30-2023 10:00-0500 Body weight 91.98 kg MD Shaikh Villagran Work Phone: [facility] 08-30-2023 10:00-0500 Diastolic blood pressure 87 mm[Hg] MD Shaikh Villagran Work Phone: [facility] 08-30-2023 10:00-0500 Systolic blood pressure 134 mm[Hg] MD Shaikh Villagran Work Phone: [facility] 07-21-2023 13:00-0500 Body height 167.64 cm Adriana Fitt Other [employer] Other 07-21-2023 13:00-0500 Body mass index (BMI) [Ratio] 33.52 kg/m2 Adriana Fitt Other [employer] Other 07-21-2023 13:00-0500 Body weight 94.21 kg Adriana Fitt Other [employer] Other 07-05-2023 14:15-0400 Body height 167.64 cm Susanne Missler Other [employer] Other 07-05-2023 14:15-0400 Body mass index (BMI) [Ratio] 33.62 kg/m2 Susanne Missler Other [employer] Other 07-05-2023 14:15-0400 Body weight 94.48 kg Susanne Missler Other [employer] Other 07-05-2023 14:15-0400 Diastolic blood pressure 87 mm[Hg] Susanne Missler Other [employer] Other 07-05-2023 14:15-0400 Respiratory rate 18 /min Susanne Missler Other [employer] Other 07-05-2023 14:15-0400 SaO2% (BldA) [Mass fraction] 93 % Susanne Missler Other [employer] Other 07-05-2023 14:15-0400 Systolic blood pressure 133 mm[Hg] Susanne Missler Other [employer] Other 06-30-2023 15:08-0400 Body height 167.[address] Apolinar Henry Work Phone: [facility] 06-30-2023 15:08-0400 Body mass index (BMI) [Ratio] 33.5 kg/m2 Dr. Apolinar Henry Work Phone: [facility] 06-30-2023 15:08-0400 Body temperature 97.3 [degF] Dr. Apolinar Henry Work Phone: [facility] 06-30-2023 15:08-0400 Body weight 94.[address] Apolinar Henry Work Phone: [facility] 06-30-2023 15:08-0400 Diastolic blood pressure 81 mm[Hg] Dr. Apolinar Henry Work Phone: [facility] 06-30-2023 15:08-0400 Heart rate 65 /min Dr. Apolinar Henry Work Phone: [facility] 06-30-2023 15:08-0400 Respiratory rate 16 /min Dr. Apolinar Henry Work Phone: [facility] 06-30-2023 15:08-0400 SaO2% (BldA) [Mass fraction] 94 % Dr. Apolinar Henry Work Phone: [facility] 06-30-2023 15:08-0400 Systolic blood pressure 135 mm[Hg] Dr. Apolinar Henry Work Phone: [facility] 05-27-2023 10:00-0400 Body height 167.64 cm [employer] Other [employer] Other 05-27-2023 10:00-0400 Body mass index (BMI) [Ratio] 34.65 kg/m2 [employer] Other [employer] Other 05-27-2023 10:00-0400 Body weight 97.39 kg [employer] Other [employer] Other 05-05-2023 14:25-0400 Body height 167.[address] Apolinar Henry Work Phone: [facility] 05-05-2023 14:25-0400 Body mass index (BMI) [Ratio] 35 kg/m2 Dr. Apolinar Henry Work Phone: [facility] 05-05-2023 14:25-0400 Body temperature 97.7 [degF] Dr. Apolinar Henry Work Phone: [facility] 05-05-2023 14:25-0400 Body weight 98.[address] Apolinar Henry Work Phone: [facility] 05-05-2023 14:25-0400 Diastolic blood pressure 78 mm[Hg] Dr. Apolinar Henry Work Phone: [facility] 05-05-2023 14:25-0400 Heart rate 70 /min Dr. Apolinar Henry Work Phone: [facility] 05-05-2023 14:25-0400 Respiratory rate 16 /min Dr. Apolinar Henry Work Phone: [facility] 05-05-2023 14:25-0400 SaO2% (BldA) [Mass fraction] 96 % Dr. Apolinar Henry Work Phone: [facility] 05-05-2023 14:25-0400 Systolic blood pressure 120 mm[Hg] Dr. Apolinar Henry Work Phone: [facility] 03-15-2023 12:45-0400 Body height 167.64 cm [employer] Other [employer] Other 03-15-2023 12:45-0400 Body mass index (BMI) [Ratio] 36.42 kg/m2 Susanne Missler Other [employer] Other 03-15-2023 12:45-0400 Body weight 102.38 kg Susanne Missler Other [employer] Other 03-15-2023 12:45-0400 Diastolic blood pressure 84 mm[Hg] Susanne Missler Other [employer] Other 03-15-2023 12:45-0400 Respiratory rate 18 /min Susanne Missler Other [employer] Other 03-15-2023 12:45-0400 SaO2% (BldA) [Mass fraction] 96 % Susanne Retanaler Other [employer] Other 03-15-2023 12:45-0400 Systolic blood pressure 131 mm[Hg] Susanne ler Other [employer] Other 11-18-2022 14:58-0500 Body height 167.6 cm Apolinar Henry MD Work Phone: [employer] [facility] 11-18-2022 14:58-0500 Body temperature 97 [degF] Apolinar Henry MD Work Phone: [employer] [facility] 11-18-2022 14:58-0500 Diastolic blood pressure 83 mm[Hg] Apolinar Henry MD Work Phone: [facility] [employer] [facility] 11-18-2022 14:58-0500 Heart rate 78 /min Apolinar Henry MD Work Phone: [facility] 11-18-2022 14:58-0500 Systolic blood pressure 143 mm[Hg] Apolinar Henry MD Work Phone: [facility] 10-21-2022 13:46-0500 Body height 167.6 cm Apolinar Henry MD Work Phone: [employer] [facility] 10-21-2022 13:46-0500 Body temperature 97.3 [degF] Apolinar Henry MD Work Phone: 1(815)328-769599 [place] [address] 10-21-2022 13:46-0500 Diastolic blood pressure 86 mm[Hg] Apolinar Henry MD Work Phone: 3(726)425-568192 [place] [address] 10-21-2022 13:46-0500 Heart rate 76 /min Apolinar Henry MD Work Phone: 5(326)679-397792 [place] [address] 10-21-2022 13:46-0500 Systolic blood pressure 142 mm[Hg] Apolinar Henry MD Work Phone: 8(025)126-825192 [place] [address] 10-07-2022 14:27-0500 Body height 167.6 cm Apolinar Henry MD Work Phone: 0(737)232-894192 [place] [address] 10-07-2022 14:27-0500 Body temperature 97.9 [degF] Apolinar Henry MD Work Phone: 3(296)637-918192 [place] [address] 10-07-2022 14:27-0500 Diastolic blood pressure 81 mm[Hg] Apolinar Henry MD Work Phone: 7(743)703-427992 [place] [address] 10-07-2022 14:27-0500 Heart rate 74 /min Apolinar Henry MD Work Phone: 4(853)292-050192 [place] [address] 10-07-2022 14:27-0500 Systolic blood pressure 140 mm[Hg] Apolinar Henry MD Work Phone: 2(471)915-564792 [place] [address] 09-23-2022 14:36-0500 Body height 167.6 cm Apolinar Henry MD Work Phone: 0(075)585-748892 [place] [address] 09-23-2022 14:36-0500 Body mass index (BMI) [Ratio] 35.83 kg/m2 Apolinar Henry MD Work Phone: 0(500)185-543792 [place] [address] 09-23-2022 14:36-0500 Body temperature 97.3 [degF] Apolinar Henry MD Work Phone: 3(738)413-610192 [place] [address] 09-23-2022 14:36-0500 Body weight 100.7 kg Apolinar Henry MD Work Phone: 4(131)234-577892 [place] [address] 09-23-2022 14:36-0500 Diastolic blood pressure 97 mm[Hg] Apolinar Henry MD Work Phone: 7(118)980-308092 [place] [address] 09-23-2022 14:36-0500 Heart rate 82 /min Apolinar Henry MD Work Phone: 1(249)873-942692 [place] [address] 09-23-2022 14:36-0500 Systolic blood pressure 152 mm[Hg] Apolinar Henry MD Work Phone: 1(112)966-751792 [place] [address] 08-12-2022 15:03-0500 Body height 167.6 cm Apolinar Henry MD Work Phone: 5(381)785-393492 [place] [address] 08-12-2022 15:03-0500 Body mass index (BMI) [Ratio] 35.83 kg/m2 Apolinar Henry MD Work Phone: 6(440)544-851492 [place] [address] 08-12-2022 15:03-0500 Body temperature 96.69 [degF] Apolinar Henry MD Work Phone: 0(958)517-062992 [place] [address] 08-12-2022 15:03-0500 Body weight 100.7 kg Apolinar Henry MD Work Phone: 1(907)333-309392 [place] [address] 08-05-2022 14:20-0500 Body height 167.6 cm Apolinar Henry MD Work Phone: 1(829)207-322492 [place] [address] 08-05-2022 14:20-0500 Body mass index (BMI) [Ratio] 35.83 kg/m2 Apolinar Henry MD Work Phone: 9(967)528-819292 [place] [address] 08-05-2022 14:20-0500 Body temperature 97.2 [degF] Apolinar Henry MD Work Phone: 7(232)916-359192 [place] [address] 08-05-2022 14:20-0500 Body weight 100.7 kg Apolinar Henry MD Work Phone: 7(151)137-227092 [place] [address] 08-05-2022 14:20-0500 Diastolic blood pressure 90 mm[Hg] Apolinar Henry MD Work Phone: 1(711)410-495392 [place] [address] 08-05-2022 14:20-0500 Heart rate 75 /min Apolinar Henry MD Work Phone: 1(890)559-778792 [place] [address] 08-05-2022 14:20-0500 Systolic blood pressure 156 mm[Hg] Apolinar Henry MD Work Phone: 6(468)384-246892 [place] [address] 07-22-2022 13:23-0500 Body height 167.6 cm Apolinar Henry MD Work Phone: 4(267)206-992492 [place] [address] 07-22-2022 13:23-0500 Body mass index (BMI) [Ratio] 35.83 kg/m2 Apolinar Henry MD Work Phone: 6(616)035-382592 [place] [address] 07-22-2022 13:23-0500 Body temperature 97.81 [degF] Apolinar Henry MD Work Phone: 6(817)906-519092 [place] [address] 07-22-2022 13:23-0500 Body weight 100.7 kg Apolinar Henry MD Work Phone: 3(032)790-014892 [place] [address] 07-22-2022 13:23-0500 Diastolic blood pressure 80 mm[Hg] Apolinar Henry MD Work Phone: 1(739)225-708892 [place] [address] 07-22-2022 13:23-0500 Heart rate 69 /min Apolinar Henry MD Work Phone: 9(975)852-357192 [place] [address] 07-22-2022 13:23-0500 Systolic blood pressure 133 mm[Hg] Apolinar Henry MD Work Phone: 3(797)764-940392 [place] [address] 07-15-2022 13:33-0400 Body height 167.6 cm Apolinar Henry MD Work Phone: 8(553)265-269492 [place] [address] 07-15-2022 13:33-0400 Body mass index (BMI) [Ratio] 35.83 kg/m2 Apolinar Henry MD Work Phone: 3(325)336-888692 [place] [address] 07-15-2022 13:33-0400 Body temperature 97.9 [degF] Apolinar Henry MD Work Phone: 5(608)926-604192 [place] [address] 07-15-2022 13:33-0400 Body weight 100.7 kg Apolinar Henry MD Work Phone: 5(434)094-506092 [place] [address] 07-15-2022 13:33-0400 Diastolic blood pressure 83 mm[Hg] Apolinar Henry MD Work Phone: 3(052)892-002292 [place] [address] 07-15-2022 13:33-0400 Heart rate 75 /min Apolinar Henry MD Work Phone: 2(419)202-440792 [place] [address] 07-15-2022 13:33-0400 Systolic blood pressure 140 mm[Hg] Apolinar Henry MD Work Phone: 1(325)541-269292 [place] [address] 07-09-2022 16:55-0400 Diastolic blood pressure 79 mm[Hg] Apolinar Henry MD Work Phone: 7(757)703-337892 [place] [address] 07-09-2022 16:55-0400 Heart rate 87 /min Apolinar Henry MD Work Phone: 7(001)082-970492 [place] [address] 07-09-2022 16:55-0400 Respiratory rate 18 /min Apolinar Henry MD Work Phone: 1(416)563-617492 [place] [address] 07-09-2022 16:55-0400 SaO2% (BldA) [Mass fraction] 97 % Apolinar Henry MD Work Phone: 2(689)351-352492 [place] [address] 07-09-2022 16:55-0400 Systolic blood pressure 149 mm[Hg] Apolinar Henry MD Work Phone: 5(107)189-540892 [place] [address] 07-09-2022 15:05-0400 Body temperature 97.3 [degF] Apolinar Henry MD Work Phone: 4(089)038-038192 [place] [address] 07-09-2022 08:58-0400 Body height 167.6 cm Apolinar Henry MD Work Phone: 8(993)169-537392 [place] [address] 07-09-2022 08:58-0400 Body mass index (BMI) [Ratio] 35.83 kg/m2 Apolinar Henry MD Work Phone: 2(571)552-291292 [place] [address] 07-09-2022 08:58-0400 Body weight 100.7 kg Apolinar Henry MD Work Phone: 5(698)850-078192 [place] [address] 06-30-2022 14:44-0400 Body height 167.6 cm Apolinar Henry MD Work Phone: 8(793)483-719692 [place] [address] 06-30-2022 14:44-0400 Body mass index (BMI) [Ratio] 35.83 kg/m2 Apolinar Henry MD Work Phone: 6(361)266-816292 [place] [address] 06-30-2022 14:44-0400 Body temperature 97.7 [degF] Apolinar Henry MD Work Phone: 7(383)[phone] [place] [address] 06-30-2022 14:44-0400 Body weight 100.7 kg Apolinar Henry MD Work Phone: 1(811)[phone] [place] [address] 06-30-2022 14:44-0400 Diastolic blood pressure 97 mm[Hg] Apolinar Henry MD Work Phone: 6(240)[phone] [place] [address] 06-30-2022 14:44-0400 Heart rate 119 /min Apolinar Henry MD Work Phone: 3(345)601-531692 [place] [address] 06-30-2022 14:44-0400 Systolic blood pressure 148 mm[Hg] Apolinar Henry MD Work Phone: 4(612)654-391692 [place] [address] 06-16-2022 11:36-0400 Body height 167.6 cm Apolinar Henry MD Work Phone: 5(253)689-398792 [place] [address] 06-16-2022 11:36-0400 Body mass index (BMI) [Ratio] 35.99 kg/m2 Apolinar Henry MD Work Phone: 8(335)993-484992 [place] [address] 06-16-2022 11:36-0400 Body temperature 97.5 [degF] Apolinar Henry MD Work Phone: 7(530)106-299692 [place] [address] 06-16-2022 11:36-0400 Body weight 101.15 kg Apolinar Henry MD Work Phone: [facility] 06-16-2022 11:36-0400 Diastolic blood pressure 89 mm[Hg] Apolinar Henry MD Work Phone: [facility] 06-16-2022 11:36-0400 Heart rate 76 /min Apolinar Henry MD Work Phone: 5(107)[phone] [place] [address] 06-16-2022 11:36-0400 Systolic blood pressure 148 mm[Hg] Apolinar Henry MD Work Phone: 9(059)227-361792 [place] [address] 05-20-2022 13:46-0400 Body temperature 98.01 [degF] Apolinar Henry MD Work Phone: 6(934)912-388692 [place] [address] 05-20-2022 13:46-0400 Body weight 100.7 kg Apolinar Henry MD Work Phone: 2(312)982-671592 [place] [address] 05-20-2022 13:46-0400 Diastolic blood pressure 95 mm[Hg] Apolinar Henry MD Work Phone: 4(126)294-039192 [place] [address] 05-20-2022 13:46-0400 Heart rate 80 /min Apolinar Henry MD Work Phone: [facility] 05-20-2022 13:46-0400 Systolic blood pressure 150 mm[Hg] Apolinar Henry MD Work Phone: [facility] Encounters Encounter Date Encounter Type Care Provider Facility Start: 11-01-2023 End: 11-01-2023 ambulatory MD Shaikh Villagran Work Phone: [facility] Work Phone: Start: 11-01-2023 End: 11-01-2023 Patient encounter procedure MD Shaikh Villagran Work Phone: [facility] Work Phone: Start: 10-11-2023 End: 10-12-2023 ambulatory Shaikh Kerry Villagran MD Facility:[facility] Start: 09-15-2023 End: 09-16-2023 ambulatory Shaikh Kerry Villagran MD Facility:[facility] Start: 09-01-2023 End: 09-02-2023 ambulatory Shaikh Kerry Villagran MD Facility:[facility] Start: 08-30-2023 ambulatory Shaikh Tyshawn Facility: [facility] Start: 08-30-2023 Registered Recurring MD Shaikh Villagran Work Phone: [facility] Work Phone: Start: 08-30-2023 End: 08-30-2023 Patient encounter procedure MD Shaikh Villagran Work Phone: [facility] Work Phone: Start: 07-21-2023 ([facility] RD FU) [facility] F/ 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 Adriana Lyn [facility] Start: 07-21-2023 End: 07-21-2023 ambulatory Adriana Lyn Other [employer] Other Start: 07-20-2023 End: 07-21-2023 ambulatory Shaikh Kerry Villagran MD Facility:[facility] Start: 07-05-2023 [facility] Management f/u Susanne [facility] Start: 07-05-2023 End: 07-06-2023 ambulatory Vanessa Mack MD [employer] Other Start: 07-01-2023 End: 07-01-2023 ambulatory Shaikh Kerry Villagran MD Facility:[facility] Start: 06-30-2023 End: 06-30-2023 ambulatory Apolinar Henry Facility:[facility] Start: 06-30-2023 End: 06-30-[address] Apolinar Henry Work Phone: [facility] Work Phone: Start: 06-30-2023 End: 06-30-[address] Apolinar Henry Work Phone: [facility] Work Phone: Start: 06-21-2023 End: 06-22-2023 ambulatory Vanessa Mack MD Facility:[facility] Start: 06-16-2023 End: 06-17-2023 ambulatory Shaikh Kerry Villagran MD Facility:[facility] Start: 06-02-2023 End: 06-03-2023 ambulatory Shaikh Kerry Villagran MD Facility:[facility] Start: 06-01-2023 End: 06-02-2023 ambulatory Adam Betancourt MD Facility:[facility] Start: 06-01-2023 End: 06-02-2023 ambulatory Jovan Betancourt MD Facility:[facility] Start: 05-31-2023 End: 06-01-2023 ambulatory Vanessa Mack MD Facility:[facility] Start: 05-27-2023 ([facility] RD FU) [facility] F/ 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 Apolinar Henry Work Phone: [facility] Work Phone: Start: 05-05-2023 End: 05-05-[address] Apolinar Henry Work Phone: [facility] Work Phone: Start: 04-12-2023 End: 04-12-2023 ambulatory Susanne Jordan Other [employer] Other Start: 04-12-2023 Telephone encounter Susanne Jordan [facility] Start: 03-15-2023 ([facility]/U) Weight Management f/u Susanne Jordan [facility] Start: 03-15-2023 End: 03-15-2023 ambulatory Susanne Jordan Other [employer] Other Start: 02-18-2023 End: 02-19-2023 ambulatory Shaikh Kerry [facility]agran MD [facility] Start: 01-20-2023 End: 01-21-2023 ambulatory Agnieszka Vazquez PA-C Facility:[facility] Start: 01-01-[address] ADAM SCHWARTZ Facilit y:[facility] Start: 12-23-2022 End: 12-24-2022 ambulatory Shaikh Kerry Villagran MD [facility] Start: 12-16-2022 End: 12-17-[address] ADAM SCHWARTZ Facility:[facility] Start: 11-18-2022 [facility] Start: 11-18-2022 End: 11-18-2022 Office outpatient visit 25 minutes Apolinar Henry MD Work Phone: [facility] Comment on above: 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); S/P breast reconstruction Start: 10-21-2022 ambulatory [facility] Start: 10-21-2022 End: 10-21-2022 Office outpatient visit 25 minutes Apolinar Hnery MD Work Phone: [facility] Comment on above: 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); S/P breast reconstruction Start: 10-07-2022 ambulatory [facility]Y [facility] Start: 10-07-2022 End: 10-07-2022 Postop follow up visit related to original px Apolinar Henry MD Work Phone: [facility] Comment on above: 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); S/P breast reconstruction Start: 09-23-2022 ambulatory SHAIKH KERRY VILLAGRAN [facility] Start: 09-23-2022 End: 09-23-2022 Postop follow up visit related to original px Apolinar Henry MD Work Phone: [facility] Comment on above: 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); S/P breast reconstruction Start: 09-16-2022 End: 09-17-2022 ambulatory SHAIKH Tc VILLAGRAN Facility: Start: 09-16-2022 End: 09-17-[address] TY BOUDREAUX Facility: Start: 09-15-2022 [email or web address] Start: 09-15-2022 End: 09-15-2022 Subsequent hospital visit by physician Apolinar Henry MD Work Phone: [facility] Comment on above: Arrived Start: 08-26-2022 ambulatory SHAIKH KERRY [facility] Start: 08-12-2022 ambulatory [facility] Start: 08-12-2022 End: 08-12-2022 Postop follow up visit related to original px Apolinar Henry MD Work Phone: [facility] Comment on above: S/P breast reconstru ction (Primary Dx); Personal history of malignant neoplasm of breast; Acquired absence of right breast and nipple Start: 08-05-2022 ambulatory [email or web address] Start: 08-05-2022 End: 08-05-2022 Postop follow up visit related to original px Apolinar Henry MD Work Phone: [facility] Comment on above: S/P breast reconstru ction (Primary Dx) Start: 07-22-2022 ambulatory [facility]ED [email or web address] Start: 07-22-2022 End: 07-22-2022 Postop follow up visit related to original px Apolinar Henry MD Work Phone: [facility] Comment on above: 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); S/P breast reconstruction Start: 07-15-2022 ambulatory [email or web address] Start: 07-15-2022 End: 07-15-2022 Postop follow up visit related to original px Apolinar Henry MD Work Phone: [facility] Comment on above: 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); Personal history of malignant neoplasm of breast; S/P breast reconstruction Start: 07-09-2022 End: 07-09-2022 [facility] Start: 07-09-2022 End: 07-09-2022 Subsequent hospital visit by physician Apolinar Henry MD Work Phone: [facility] Comment on above: Personal history of malignant neoplasm of breast Start: 06-30-2022 [facility] FREEDMASON VILLAGRAN [facility] Start: 06-30-2022 End: 06-30-2022 Office outpatient visit 40 minutes Apolinar Henry MD Work Phone: [facility] Comment on above: S/P breast reconstru ction (Primary Dx); Acquired absence of right breast and nipple; Personal history of malignant neoplasm of breast Start: 06-25-2022 Encounter for other preprocedural examination SHAIKH Tc VILLAGRAN [facility] Start: 06-23-2022 ambulatory SHAIKH KERRY VILLAGRAN [facility] Start: 06-22-2022 End: 06-23-2022 ambulatory SHAIKH Tc VILLAGRAN Facility:[facility] Start: 06-22-2022 End: 06-23-2022 Encounter for other preprocedural examination SHAIKH Tc VILLAGRAN Facility: Start: 06-16-2022 ambulatory APOLINAR HENRY [facility] Start: 06-16-2022 Encounter for other preprocedural examination APOLINAR GHJOSE [facility] Start: 06-16-2022 ambulatory SHAIKH KERRY CA[facility]YALEXSANDR[facility] Start: 06-16-2022 End: 06-16-2022 Office outpatient visit 25 minutes Apolinar Henry MD Work Phone: [facility] Comment on above: Personal history of malignant neoplasm of breast (Primary Dx); Acquired absence of right breast and nipple Start: 05-21-2022 End: 06-20-2022 ambulatory [facility]AIKH KERRY [facility] Start: 05-20-2022 ambulatory SHAIKH KERRY [facility] Start: 05-20-2022 End: 05-20-2022 Office outpatient new 60 minutes Apolinar Henry MD Work Phone: [facility] Comment on above: Personal history of malignant neoplasm of breast (Primary Dx); Acquired absence of right breast and nipple Start: 03-24-2022 End: 03-25-2022 ambulatory SHAIKH Tc KRISHNAD Facility:[facility] Start: 03-02-2022 End: 03-02-2022 ambulatory FREED H PADILLAWWAD Facility:[facility] Start: 01-13-2022 End: 01-14-2022 ambulatory FREED H FAAmandaWAD Facility: Start: 06-07-2020 End: 06-08-2020 Patient encounter procedure [place] Facility:[facility] Start: 08-05-2018 End: 08-05-2018 Emergency department patient visit GRUPO BROUSSARD Facility:[facility] Start: 07-27-2017 End: 10-14-2017 Ambulatory NANCY MARTINEZ [facility] Procedures Date Procedure Procedure Detail Performing Clinician Start: 09-23-2022 Follow-up visit Follow-up APOLINAR HENRY Start: 09-15-2022 Radiologic exam chest 2 views Apolinar Henry MD Work Phone: Start: 06-07-2020 ANESTH KNEE JOINT SURGERY LASHA BAKER Start: 06-07-2020 KNEE ARTHROSCOPY/SURGERY ADAM Tc BRODY Start: 08-05-2018 Erin BROUSSARD Plan of Treatment Date Care Activity Detail Author Start: 07-30-2023 ambulatory Ambulatory Facility:[facility] Start: 04-06-2023 MAMMOGRAM LEFT MAMMOGRAM LEFT [facility] Start: 04-06-2023 Screening for malign ant neoplasm of breast MAMMOGRAM LEFT [facility] Start: 01-11-2023 Tetanus vaccination TETANUS [facility] Start: 11-18-2022 End: 11-18-2022 Patient encounter procedure 11/18/2022 Office Visit Plastic Surgery Apolinar Henry MD [address] [place] [address] [facility] Start: 10-21-2022 End: 10-21-2022 Patient encounter procedure 10/21/2022 Office Visit Plastic Surgery Apolinar Henry MD [address] [place] [address] [place] [address] [facility] Start: 10-07-2022 End: 10-07-2022 Patient encounter procedure 10/07/2022 Office Visit Plastic Surgery Apolinar Henry MD [address] [place] [address] [place] [address] [facility] Start: 09-23-2022 End: 09-23-2022 Patient encounter procedure 09/23/2022 Office Visit Plastic Surgery Apolinar Henry MD [address] [place] [address] [place] [address] [facility] Start: 08-26-2022 End: 08-26-2022 Patient encounter procedure 08/26/2022 Office Visit Plastic Surgery Apolinar Henry MD [address] [place] [address] [facility] Start: 08-12-2022 End: 08-12-2022 Patient encounter procedure 08/12/2022 Office Visit Plastic Surgery Apolinar Henry MD [address] [place] [address] [place] [address] [facility] Start: 08-05-2022 End: 08-05-2022 Patient encounter procedure 08/05/2022 Office Visit Plastic Surgery Apolinar Henry MD [address] [place] [address] [place] [address] [facility] Start: 07-22-2022 End: 07-22-2022 Patient encounter procedure 07/22/2022 Office Visit Plastic Surgery Apolinar Henry MD [address] [place] [address] [place] [address] [facility] Start: 07-15-2022 End: 07-15-2022 Patient encounter procedure 07/15/2022 Office Visit Plastic Surgery Apolinar Henry MD [address] [place] [address] [facility] Start: 07-09-2022 Subsequent hospital visit by physician 07/09/2022 Hospital Encounter Multispecialty Apolinar Henry MD [address] [place] [address] [place] [address] Personal history of malignant neoplasm of breast ANA GAL Periop Comment on above: Personal history of malignant neoplasm of breast Start: 07-09-2022 End: 07-09-2022 Admission to same day surgery center 07/09/2022 Surgery Multispecialty Apolinar Henry MD [address] [place] [address] [place] [address] RT BREAST RECONSTRUCTION W/ PLACEMENT TISSUE GEM CARVER & ADM ANA GAL Periop Comment on above: RT BREAST RECONSTRUC TION W/ PLACEMENT TISSUE GEM CARVER & ADM Start: 07-09-2022 End: 07-09-2022 Anesthesia consultation 07/09/2022 Anesthesia Event Multispecialty Deo Moeller L, DO [address] [place] [address] ANA GAL Periop Start: 07-09-2022 End: 07-09-2022 Brst rcnstj immt/dlyd w/tiss florist manager sbsq xpnsj RECONSTRUCTION BREAST TISSUE GEM CARVER INCLUDING SUBSEQUENT EXPANDERS Personal history of malignant [...] Office Visit Plastic Surgery Apolinar Henry MD [address] [place] [address] [facility] Start: 05-14-2022 Influenza vaccination INFLUENZA VACC INE (#1) [facility] Start: 12-03-2021 COVID-19 VACCINE (4 - Booster for Pfizer series) COVID-19 VACCINE (4 - Booster for Pfizer series) [facility] Start: 09-30-2021 COVID-19 VACCINE (4 - Booster for Pfizer series) COVID-19 VACCINE (4 - Booster for Pfizer series) [facility] Start: 2015 Pneumococcal vaccination PNEUM OCOCCAL VACCINE SERIES (1 - PCV) [facility] Start: 2000 Zoster vaccine hzv l vera for subcutaneous use ZOSTER (SHINGLES) VACCINE (1 of 2) [facility] Start: 1995 Colonoscopy COLORECTAL CAN CER SCREENING DISCUSSION [facility] Start: 1995 Screening for malign ant neoplasm of colon COLORECTAL CANCER SCREENING DISCUSSION [facility] Start: 1990 Fasting lipid profile LIPID SCREENIN G [facility] Start: 1990 Lipid panel [facility]CREENING [facility] Start: 1980 MAMMOGRAM LEFT MAMMOGRAM LEFT [facility] Start: 1971 Screening for malign ant neoplasm of cervix CERVICAL CANCER SCREENING DISCUSSION [facility] Start: 1969 Third diphtheria, tetanus and acellular pertussis (DTaP) vaccination TDAP (ADULT) [facility] Start: 1968 Tetanus vaccination TETANUS [facility] Start: 1950 Hepatitis C antibody , confirmatory test HEPATITIS C VIRUS SCREENING [facility] Start: 1950 Hepatitis C screening HEPATITI S C VIRUS SCREENING [facility] Start: 1950 Screening for osteoporosis DEXA SCAN DISCUSSION [facility] Start: 1950 Thyroid stimulating hormone measurement TSH [facility] Immunizations Immunization Date Immunization Notes Care Provider Fa cili 08-05-2021 influenza virus vaccine, unspecified formulation Apolinar Henry MD Work Phone: [facility] Payers Date Payer Category Payer [employer] ( and others) [id number] 2022 Self-pay 2021 [employer] ( and others) [id number] 2021 [employer] ( and others) [id number]. [id number] 2021 Unknown 2020 Medicare MEDICARE ANTHEM HMO OR PPO MEDICARE ANTHEM HMO OR PPO [id number] 2020-Present [address] [place] [address] [id number] 2019 Unknown [id number] 2017 Medicare [id number] 2016 [employer] ( and others) [id number] 1959 Department of [facility] ( and others) [id number] 1959 Medicare [id number] 1950 Unknown [id number] 2.16.840.1.450470.3.579.2. 647 1950 Unknown [id number] 2.16.840.1.763168.3.579.2. 983 1950 Unknown [id number] 2.16.840.1.758157.3.579.2. 983 1950 Unknown [id number] 2.16.840.1.652572.3.579.2. 983 1950 Unknown [id number] 2.16.840.1.779085.3.579.2. 983 1950 Unknown [id number] 2.16.840.1.211972.3.579.2. 983 1950 Unknown [id number] 2.16.840.1.333005.3.579.2. 983 1950 Unknown [id number] 2.16.840.1.986314.3.579.2. 983 1950 Unknown [id number] 2.16.840.1.844762.3.579.2. 983 1950 Unknown [id number] 2.16.840.1.646944.3.579.2. 983 1950 Unknown [id number] 2.16.840.1.930577.3.579.2. 983 1950 Unknown [id number] 2.16.840.1.231299.3.579.2. 983 1950 Unknown [id number] 2.16.840.1.285406.3.579.2. 983 1950 Unknown [id number] 2.16.840.1.354009.3.579.2. 983 1950 Unknown [id number] 2.16.840.1.656609.3.579.2. 983 1950 Unknown [id number] 2.16.840.1.527502.3.579.2. 983 1950 Unknown [id number] 2.16.840.1.896561.3.579.2. 983 1950 Unknown [id number] 2.16.840.1.511657.3.579.2. 983 1950 Unknown [id number] 2.16.840.1.218326.3.579.2. 983 1950 Unknown [id number] 2.16.840.1.624972.3.579.2. 593 1950 Unknown [id number] 2.16.840.1.224898.3.579.2. 593 1950 Unknown [id number] 2.16.840.1.659451.3.579.2. 593 1950 Unknown [id number] 2.16.840.1.702514.3.579.2. 593 1950 Unknown [id number] 2.16.840.1.693389.3.579.2. 593 1950 Unknown [id number] 2.16.840.1.987557.3.579.2. 593 1950 Unknown [id number] 2.16.840.1.263991.3.579.2. 593 1950 Unknown [id number] 2.16.840.1.568677.3.579.2. 593 1950 Unknown [id number] 2.16.840.1.861314.3.579.2. 593 1950 Unknown [id number] 2.16.840.1.619552.3.579.2. 196 1950 Unknown [id number] 2.16.840.1.384697.3.579.2. 196 1950 Unknown [id number] 2.16.840.1.232693.3.579.2. 196 1950 Unknown [id number] 2.16.840.1.089761.3.579.2. 196 1950 Unknown [id number] 2.16.840.1.549230.3.579.2. 196 1950 Unknown [id number] 2.16.840.1.029008.3.579.2. 196 1950 Unknown [id number] 2.16.840.1.937562.3.579.2. 196 1950 Unknown [id number] 2.16.840.1.254306.3.579.2. 196 1950 Unknown [id number] 2.16.840.1.428203.3.579.2. 196 1950 Unknown [id number] 2.16.840.1.272747.3.579.2. 196 1950 Unknown [id number] 2.16.840.1.091642.3.579.2. 196 1950 Unknown [id number] 2.16.840.1.072770.3.579.2. 196 1950 Unknown [id number] 2.16.840.1.649694.3.579.2. 196 1950 Unknown [id number] 2.16.840.1.786868.3.579.2. 196 1950 Unknown [id number] 2.16.840.1.470687.3.579.2. 196 1950 Unknown [id number] 2.16.840.1.691628.3.579.2. 196 1950 Unknown [id number] 2.16.840.1.607748.3.579.2. 196 1948 Unknown [id number] 2.16.840.1.845824.3.579.2. 196 Department [facility] ([facility] and others) [id number] 2.16.840.1.989465.19 Medicare [id number] Private Health Insurance [id number] Unknown [id number] 2.16.840.1.648656.3.579.2. 283 Unknown [id number] 2.16.840.1.091416.3.579.2. 462 Unknown [id number] 2.16.840.1.826641.3.579.2. 462 Unknown [id number] 2.16.840.1.909181.3.579.2. 462 Unknown [id number] 2.16.840.1.656302.3.579.2. 531 Social History Date Type Detail Facility Start: 05-20-2022 Tobacco smoking status NHIS Never smoked tobacco [facility] Start: 05-20-2022 Tobacco use and exposure Smokeless tobacco non-user [facility] Start: 05-20-2022 Alcohol intake Ex-drinker (finding) [facility] Start: 1950 Sex Assigned At Not on file A [facility] Start: 06-16-2022 End: 11-18-2022 Alcohol intake Current drinker of alcohol (finding) [facility] Start: 06-16-2022 History SDOH Alcohol Comment SELDOM [facility] Start: 06-29-2022 End: 07-09-2022 Exposure to SARS-CoV-2 (event) Not sure [facility] Sex Assigned At Sex Assigned At [facility] [employer] Other Start: 05-05-2023 End: 06-30-2023 Tobacco smoking status MSIS Unknown if ever smoked [facility] Start: 1950 Sex Assigned At Female [facility] Medical Equipment Procedure Code Equipment Code Equipment Origin al Text Equipment Identifier Dates [employer] [employer] Saline Breast Implant [...] breast cancer History of colonoscopy with polypectomy MT (myocardial infarction) (2013) Morbid obesity with body [...] Maintenance Colonoscopy 04/20/2019 (more content not included)... 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 Comparison is made to exams dated: 04/06/2022 mammogram and 03/13/2021 mammogram - [facility]. The tissue of left breast [...] may not be detected on mammograms. The [employer] supports annual screening mammography starting at age 40. Carol frye/penjae:06/02/2023 09:27:52 Remedial Teacher(s): RT Delmer(R)(M), [facility] letter sent: New Mammo Normal B1/2 Mammogram BI-RADS: 2 Benign Final Dictated by: Carol Tran DO Signed by: Carol Tran DO Signed (Electronic Signature): 06/02/2023 9:27 am (If Report Is Signed, Electronically Signed in Other Vendor System)[facility]09-19-2023 NoteChief Complaint Patient presents for evaluation of left inguinal bulge. History of Present Illness 73 year old female, patient of Dr. Villagran ([place], [place]) Patient presents with a palpable bulge in the left groin area. This has been ongoing for a long time. Patient reports worsening pain. Specific triggers include: none. Notes constipation. States that bowels move approximately once a week. Reports that bulge is not reducible. An ultrasound was obtained 05/07/2023, at [facility]. She has history of myocardial infarction, that occurred in 2014during a surgery. Review of Systems Constitutional: No fevers, chills, sweats, weight loss or weight gain Respiratory: No shortness of breath, cough Cardiovascular: +CAD, h/o MT Gastrointestinal: +See HPI Liver: No jaundice, hepatitis [...] hyperplastic & tubular adenomas (04/2019) COVID-19 (09/2021) MT (myocardial infarction) (2013) Morbid obesity with body [...] MD 06/01/23 21:48 EDT Electronically signed by Tatum Teresita R 05/25/2023 15:28 EDT Electronically signed by Emely Zendejas PA-C 06/02/2023 09[facility]* Encounter Date Diagnosis [...] to 30 g/day -NEW: increase protein foods [employer] Other 09-07-2023 NotePatient Education Materials Name: Berenice Nolasco Current Date: 05/20/2023 13:09:49 Danni/[facility] : 1950 The following sheet(s) are the [...] right away to prevent serious problems. ? [id number] [employer]. [address] [place] [address], [place] [address]. All rights reserved. This information is not intended as a substitute for professional medical care. Always follow your healthcare professional's instructions.[facility]07-03-2023 Evaluation note* Encounter Date Diagnosis Assessment [...] Encounter for weight management (ICD-10 - Z76.89) [employer] Other 03-08-2023 History of Present illness Narrative* [...] the decision is whether to leave the florist manager and removal Of the port were [...] IN 2017 Malignant neoplasm of female breast MT (myocardial infarction) with knee scope PVD (peripheral vascular disease) Past Surgical History: Procedure Laterality Date RECONSTRUCTION BREAST TISSUE GEM CARVER INCLUDING SUBSEQUENT EXPANDERS Right 07/09/2022 Laterality: Right; Surgeon: Apolinar Henry MD; Location: [facility] IMPLANTATION BIOLOGIC IMPLANT FOR SOFT TISSUE REINFORCEMENT ADD-ON PX Right 07/09/2022 RT BREAST RECONSTRUCTION W/ PLACEMENT TISSUE GEM CARVER & ADM/ 150 CC FILL MASTECTOMY Right 1992 BLADDER REPAIR HYSTERECTOMY KNEE SURGERY Bilateral 2017 AND HAD [place] DURING SURGERY ORAL SURGERY REMOVAL CATARACT (PEM) [...] kg/m Smoking Status Never The patient's right florist manager is in good position. The overlying [...] Follow-up later this year documented in this [facility]02-08-2023 History of Present illness Narrative* Raphael Majano [...] IN 2017 Malignant neoplasm of female breast MT (myocardial infarction) with knee scope PVD (peripheral vascular disease) Past Surgical History: Procedure Laterality Date RECONSTRUCTION BREAST TISSUE GEM CARVER INCLUDING SUBSEQUENT EXPANDERS Right 07/09/2022 Laterality: Right; Surgeon: Apolinar Henry MD; Location: [facility] IMPLANTATION BIOLOGIC IMPLANT FOR SOFT TISSUE REINFORCEMENT ADD-ON PX Right 07/09/2022 RT BREAST RECONSTRUCTION W/ PLACEMENT TISSUE GEM CARVER & ADM/ 150 CC FILL MASTECTOMY Right 1993 BLADDER REPAIR HYSTERECTOMY KNEE SURGERY Bilateral 2017 AND HAD [place] DURING SURGERY ORAL SURGERY REMOVAL CATARACT (PEM) [...] Status Never Patient with right breast tissue florist manager. She has left breast ptosis and hypertrophy. The port is in satisfactory position. The patient has many questions and is undecided regarding further reconstructive plans. She is interested in matching the left breast however this breast is ptotic and larger. I indicated its more difficult to reconstruct a breast that looks identical to that side. Manager Math is at its maximal volume of 390 mL for which it could be As a permanent implant. Discussed with the patient that we could consider reassessment in a month to allow the tissue on the right side to relax. After that time we can review the options which may include leaving the florist manager in place or overexpansion with eventual plans for replacement with a permanent implant. I have reviewed massage of the implant to help soften the pocket. Assessment: Ongoing right breast reconstruction Plan: Pt to RETURN in 1 month FOR RECHECK. They are encouraged to call in the interim with any problems or questions relating to this encounter. [facility] History of Present illness Narrative* Lena Samuel - 10/07/2022 2:15 PM EST Nurse Note: [...] evaluation of continued filling of her tissue florist manager. She states she had pain following [...] IN 2017 Malignant neoplasm of female breast MT (myocardial infarction) with knee scope PVD (peripheral vascular disease) Past Surgical History: Procedure Laterality Date RECONSTRUCTION BREAST TISSUE GEM CARVER INCLUDING SUBSEQUENT EXPANDERS Right 07/09/2022 Laterality: Right; Surgeon: Apolinar Henry MD; Location: [facility] IMPLANTATION BIOLOGIC IMPLANT FOR SOFT TISSUE REINFORCEMENT ADD-ON PX Right 07/09/2022 RT BREAST RECONSTRUCTION W/ PLACEMENT TISSUE GEM CARVER & ADM/ 150 CC FILL MASTECTOMY Right 1992 BLADDER REPAIR HYSTERECTOMY KNEE SURGERY Bilateral 2016 AND HAD [place] DURING SURGERY ORAL SURGERY REMOVAL CATARACT (PEM) [...] expansion for 3 months before removing the florist manager and placement of the permanent implant. She presently has 330 mL in and we will put 60 mL in for her to assess the size. The pts Tissue Manager Math was Filled with 60 cc's of Injectable Saline (unilaterally) after prepping the skin with alcohol. She tolerated the procedure well. She is to follow up in 2 Weeks for evaluation and possible further expansion. Assessment: Ongoing right breast reconstruction with continued filling of her tissue florist manager Plan: Pt to RETURN in 2 weeks FOR RECHECK. They are encouraged to call in the interim with any problems or questions relating to this encounter. [facility] History of Present illness Narrative* Ameena Jackson [...] IN 2017 Malignant neoplasm of female breast MT (myocardial infarction) with knee scope PVD (peripheral vascular disease) Past Surgical History: Procedure Laterality Date RECONSTRUCTION BREAST TISSUE GEM CARVER INCLUDING SUBSEQUENT EXPANDERS Right 07/09/2022 Laterality: Right; Surgeon: Apolinar Henry MD; Location: [facility] IMPLANTATION BIOLOGIC IMPLANT FOR SOFT TISSUE REINFORCEMENT ADD-ON PX Right 07/09/2022 RT BREAST RECONSTRUCTION W/ PLACEMENT TISSUE GEM CARVER & ADM/ 150 CC FILL MASTECTOMY Right 1992 BLADDER REPAIR HYSTERECTOMY KNEE SURGERY Bilateral 2017 AND HAD [place] DURING SURGERY ORAL SURGERY REMOVAL CATARACT (PEM) [...] side which is nontender. The pts Tissue Manager Math was Filled with The 75 cc's of [...] relating to this encounter. documented in this [facility]11-30-2022 History of Present illness Narrative* Ameena Jackson [...] IN 2017 Malignant neoplasm of female breast MT (myocardial infarction) with knee scope Past Surgical History: Procedure Laterality Date RECONSTRUCTION BREAST TISSUE GEM CARVER INCLUDING SUBSEQUENT EXPANDERS Right 07/09/2022 Laterality: Right; Surgeon: Apolinar Henry MD; Location: [facility] IMPLANTATION BIOLOGIC IMPLANT FOR SOFT TISSUE REINFORCEMENT ADD-ON PX Right 07/09/2022 RT BREAST RECONSTRUCTION W/ PLACEMENT TISSUE GEM CARVER & ADM/ 150 CC FILL MASTECTOMY Right 1993 BLADDER REPAIR HYSTERECTOMY KNEE SURGERY Bilateral 2017 AND HAD [place] DURING SURGERY ORAL SURGERY REMOVAL CATARACT (PEM) [...] There is no discoloration. The pts Tissue Manager Math was Filled with 35 cc's of Injectable Saline (bilaterally/unilaterally) after prepping the skin with alcohol. She tolerated the procedure well. She is to follow up in 2 Weeks for evaluation and further expansion. Assessment: Acquired absence right breast. Patient for expansion of tissue florist manager Plan: Pt to RETURN in 2 weeks FOR RECHECK. They are encouraged to call in the interim with any problems or questions relating to this encounter. [facility] History of Present illness Narrative* Ameena Jackson [...] IN 2017 Malignant neoplasm of female breast MT (myocardial infarction) with knee scope Past Surgical History: Procedure Laterality Date RECONSTRUCTION BREAST TISSUE GEM CARVER INCLUDING SUBSEQUENT EXPANDERS Right 07/09/2022 Laterality: Right; Surgeon: Apolinar Henry MD; Location: [facility] IMPLANTATION BIOLOGIC IMPLANT FOR SOFT TISSUE REINFORCEMENT ADD-ON PX Right 07/09/2022 RT BREAST RECONSTRUCTION W/ PLACEMENT TISSUE GEM CARVER & ADM/ 150 CC FILL MASTECTOMY Right 1992 BLADDER REPAIR HYSTERECTOMY KNEE SURGERY Bilateral 2016 AND HAD [place] DURING SURGERY ORAL SURGERY REMOVAL CATARACT (PEM) [...] relating to this encounter. [facility] in [facility] History of Present illness Narrative* Ameena Jackson [...] IN 2017 Malignant neoplasm of female breast MT (myocardial infarction) with knee scope Past Surgical History: Procedure Laterality Date RECONSTRUCTION BREAST TISSUE GEM CARVER INCLUDING SUBSEQUENT EXPANDERS Right 07/09/2022 Laterality: Right; Surgeon: Apolinar Henry MD; Location: [facility] IMPLANTATION BIOLOGIC IMPLANT FOR SOFT TISSUE REINFORCEMENT ADD-ON PX Right 07/09/2022 RT BREAST RECONSTRUCTION W/ PLACEMENT TISSUE GEM CARVER & ADM/ 150 CC FILL MASTECTOMY Right 1992 BLADDER REPAIR HYSTERECTOMY KNEE SURGERY Bilateral 2016 AND HAD [place] DURING SURGERY ORAL SURGERY REMOVAL CATARACT (PEM) [...] right breast reconstruction with placement of tissue florist manager Plan: Pt to RETURN in 2 weeks FOR RECHECK. They are encouraged to call in the interim with any problems or questions relating to this encounter. documented in this [facility]22 History of Present illness Narrative* Ameena Manuel, JEREMY - 07/15/2022 1:30 PM EDT General Plastics [...] for evaluation of Right breast reconstruction with florist manager on 07/09/22. She complains of soreness, [...] IN 2017 Malignant neoplasm of female breast MT (myocardial infarction) with knee scope Past Surgical History: Procedure Laterality Date RECONSTRUCTION BREAST TISSUE GEM CARVER INCLUDING SUBSEQUENT EXPANDERS Right 07/09/2022 Laterality: Right; Surgeon: Apolinar Henry MD; Location: [facility] IMPLANTATION BIOLOGIC IMPLANT FOR SOFT TISSUE REINFORCEMENT ADD-ON PX Right 07/09/2022 Laterality: Right; Surgeon: Apolinar Henry MD; Location: [facility] MASTECTOMY Right 1992 BLADDER REPAIR HYSTERECTOMY KNEE SURGERY Bilateral 2017 AND HAD [place] DURING SURGERY ORAL SURGERY REMOVAL CATARACT (PEM) [...] breast reconstruction with placement of a tissue florist manager Plan: Pt to RETURN in 1 week FOR RECHECK. They are encouraged to call in the interim with any problems or questions relating to this encounter. documented in this [facility]10-[facility]22 Nurse Surgical operation note* Deanna Jimenez RN [...] Les. Encouraged to use CPAP at home. [facility] Note* Deanna Jimenez RN - 07/09/2022 [...] Patient connected to Monitors. documented in this [facility]Reg[facility]10-27-2022 Nurse Surgical operation note* Alphonse Craft RN [...] pain, VSS, resp even and unlabored. . [facility] Discharge instructions* Discharge Instructions* Apolinar Henry [...] Care Everywhere. * Incentive Spirometer: General Info (Citizen Of [place]) documented in this [facility]Reg[facility] Center10-27-2022 Note* Brief Op Note - Apolinar Henry MD - 07/09/2022 2:34 PM EDT POST OPERATIVE/PROCEDURE NOTE Berenice Nolasco ([id number]) SURGEON Surgeon(s) and Role: * Apolinar Henry MD - Primary FOOD SERVICE ORDER CLERK TOOL SMITH ANESTHESIOLOGIST BUSINESS INTELLIGENCE DIRECTOR: Real Hahn APRN-BUSINESS INTELLIGENCE DIRECTOR SURGICAL STAFF Blueprint Machine Operator: Marleni Swartz RN; Joanna Flores RN Monitoring Nurse: Linsey Reyes RN Registered Nurse Phosphoric Acid Supervisor: Cady Vasquez RN Scrub Person: Laisha An LPN Family Member Caretaker: Janet Feldman PROCEDURE PERFORMED Right breast reconstruction with placement of tissue florist manager ([phone]) 150cc initial fill PRIMARY CLOSURE [...] Henry MD July 09, 2022 2:34 PM [facility] Miscellaneous Notes* Brief Op Note - Apolinar Henry MD - 07/09/2022 2:34 PM EDT POST OPERATIVE/PROCEDURE NOTE Berenice Nolasco ([id number]) SURGEON Surgeon(s) and Role: * Apolinar Henry MD - Primary FOOD SERVICE ORDER CLERK YEYO ANESTHESIOLOGIST BUSINESS INTELLIGENCE DIRECTOR: Real Hahn APRN-BUSINESS INTELLIGENCE DIRECTOR SURGICAL STAFF Blueprint Machine Operator: Marleni Swartz RN; Joanna Flores RN Monitoring Nurse: Linsey Reyes RN Registered Nurse Phosphoric Acid Supervisor: Cady Vasquez RN Scrub Person: Laisha An LPN Family Member Caretaker: Janet Feldman PROCEDURE PERFORMED Right breast reconstruction with placement of tissue florist manager ([id number]) 150cc initial fill PRIMARY CLOSURE [...] 09, 2022 2:34 PM documented in this [facility]10-27-2022 Nurse Surgical operation note* Joanna Flores RN - 07/09/2022 12:24 PM EDT OR room temp 68f Humidity 305 Firescore 2 Prep dry prior to draping. Procedure completed. Dressings applied. Patient transported to PACU by holly segovia RN and Nuno hahn BUSINESS INTELLIGENCE DIRECTOR. Report given to alphonse DIAZ upon arrival. Patient connected to Monitors. [facility] History and physical note* Apolinar Henry MD - 07/09/2022 10:58 AM EDT I have examined the patient and reviewed the previous H&P completed on date 06/24/22 and there are no changes. See paper H&P in chart Apolinar Henry MD, 07/09/2022, 10:59 AM. [facility] History and physical note* Apolinar Henry MD - 07/09/2022 10:58 AM EDT I have examined the patient and reviewed the previous H&P completed on date 06/24/22 and there are no changes. See paper H&P in chart Apolinar Henry MD, 07/09/2022, 10:59 AM. documented in this [facility]Reg[facility] Center10-18-2022 History of Present illness Narrative* Ameena Jackson [...] IN 2017 Malignant neoplasm of female breast MT (myocardial infarction) with knee scope Past Surgical History: Procedure Laterality Date MASTECTOMY Right 1992 BLADDER REPAIR HYSTERECTOMY KNEE SURGERY Bilateral 2017 AND HAD [place] DURING SURGERY ORAL SURGERY REMOVAL CATARACT (PEM) [...] procedure of Right breast reconstruction with tissue florist manager Was thoroughly reviewed with the patient. [...] right breast reconstruction with placement of tissue florist manager Plan: We will proceed with surgery in the near future and the patient will call with any further questions. I spent 50 minutes total time with the patient. documented in this [facility]10-04-2022 History of Present illness Narrative* Ameena Jackson [...] We discussed direct to implant versus tissue florist manager and decided on tissue florist manager to allow flexibility in choosing her size. She understands in a second surgery would be required to either remove the port or replace the implant. I measured her for an implant today which will be a tissue florist manager--smooth round spectrum [phone] an approximately 12 cm diameter The procedure of Right breast reconstruction with tissue florist manager was thoroughly reviewed with the patient. [...] for further preoperative preparation documented in this [facility]09-07-2022 History of Present illness Narrative* Ameena Jackson [...] types of reconstructions described included: 1) Tissue florist manager and implant based reconstruction, both single [...] after considering the options documented in this [facility]05-03-2022 NotePROCEDURE: XR HIPS CHARLIE 5V W PELVIS [...] Electronically authenticated by: TY BOUDREAUX Date: 2022-01-13 17:45[facility]* Diagnosis Personal history of malignant neoplasm of breast- Primary 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 absence of breast and nipple [facility] Diagnosis Personal history of malignant neoplasm of breast- Primary 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 absence of breast and nipple 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 absence of breast and nipple [facility]* Diagnosis S/P breast reconstruction- Primary Breast replaced by other means 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 absence of breast and nipple Personal history of malignant neoplasm of breast 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 absence of breast and nipple [facility] Diagnosis Acquired absence of right breast- Primary Acquired absence of right breast Personal history of malignant neoplasm of breast Personal history of malignant neoplasm of breast [facility] Diagnosis Acquired absence of right breast and nipple- Primary Acquired absence of breast and nipple Personal history of malignant neoplasm of breast S/P breast reconstruction Breast replaced by other means [facility] Diagnosis Acquired absence of right breast and nipple- Primary Acquired absence of breast and nipple S/P breast reconstruction Breast replaced by other means [facility] Diagnosis S/P breast reconstruction- Primary Breast replaced by other means [facility] Diagnosis S/P breast reconstruction- Primary Breast replaced by other means 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 absence of breast and nipple [facility]* Diagnosis Right-sided chest pain [facility]* Diagnosis Acquired absence of right breast and nipple- Primary Acquired absence of breast and nipple S/P breast reconstruction Breast replaced by other means documented in this encounter [employer] [facility]* Diagnosis Acquired absence of right breast and nipple- Primary Acquired absence of breast and nipple S/P breast reconstruction Breast replaced by other means [facility] noteNo InformationNort Spondu[employer] Other Evaluation noteNo assessment information available [facility] Work Phone: Evaluation note* Diagnosis Onset Date Resolution Status Breast asymmetry between donavan vera breast and reconstructed breast acute Breast hypertrophy acute History of cancer of right breast acute [facility] Work Phone: Evaluation note* Diagnosis Onset Date Resolution Status BMI 32.0-32.9,adult acute Depression acute GERD (gastroesophageal reflux disease) acute Hyperlipidemia acute Hypothyroid acute Obesity acute NARA on CPAP acute [facility] Work Phone: History general Narrative - [...] side breast tissue expand er Surgical History [place] teeth Surgical History 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 Surgical History Heart cath Surgical History Dental implant Hospitalization History See above [employer] Other [employer] general Narrative - Reported* Type Description Date [...] side breast tissue expand er Surgical History [place] teeth Surgical History 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 Surgical History Heart cath Surgical History Dental implant Surgical History Inguinal hernia repair Surgical History Steroid injections in back Hospitalization History See above [employer] Other Reason for visit Narrative* Auth/Cert Specialty Diagnoses / Procedures Referred By Felix t Referred To Contact Diagnoses 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 Personal history of malignant neoplasm of breast [Z85.3] 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] Procedures [place] TISSUE GEM CARVER PLACEMENT BREAST RECONSTRUCTION [place] IMPLNT BIO IMPLNT FOR SOFT TISSUE REINFORCEMENT RECONSTRUCTION BREAST TISSUE GEM CARVER INCLUDING SUBSEQUENT EXPANDERS IMPLANTATION BIOLOGIC IMPLANT FOR SOFT TISSUE REINFORCEMENT ADD-ON PX Apolinar Henry MD [address] [place] [address] Referral ID Status Reason Start Date Expiration Date Visits Re quested Visits Authorized [id number] 06/10/2022 1 1 [facility] [employer] [facility] Summary Purpose Family History Relationship Condition Age at Onset Recorded Date/T amber mother Cardiac disease Unknown father Cardiac disease Unknown Relationship Condition Age at Onset Recorded Date/T amber father Congestive heart failure Unknown Unknown History of stroke Unknown Heart disease Unknown Diabetes mellitus Unknown Not Specified Family history of mental disorder Unknow n Vascular dementia Unknown Advance Directives Advance Directive Response Recorded Date/ Time Advance Directives No October 03, 2023 8:42am Chief Complaint and Reason for Visit Chief Complaint Consult Chief Complaint Consult preop #1 left breast red/ right florist manager port Reason for Visit Breast asymmetry bet ween jamul breast and reconstructed breast Breast hypertrophy History of cancer of right breast Chief Complaint Wmn F/U Obesity 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 Reason for Visit BMI 32.0-32.9,adult Depression GERD (gastroesophageal reflux disease) Hyperlipidemia Hypothyroid Obesity NARA on CPAP Additional Source Comments INFORMATION SOURCE (unrecogn ized section and content) DATE CREATED AUTHOR 03/07/2018 [facility] DATE CREATED AUTHOR AUTHOR'S ORGANIZ ATION 08/23/2018 [facility] DATE CREATED AUTHOR AUTHOR'S ORGANIZ ATION 09/01/2018 [facility] DATE CREATED AUTHOR AUTHOR'S ORGANIZ ATION 12/11/2020 [facility] DATE CREATED AUTHOR AUTHOR'S ORGANIZ ATION 07/10/2022 [facility] DATE CREATED AUTHOR AUTHOR'S ORGANIZ ATION 11/20/2022 [facility] DATE CREATED AUTHOR AUTHOR'S ORGANIZ ATION 12/25/2022 [facility] DATE CREATED AUTHOR AUTHOR'S ORGANIZ ATION 07/27/2023 [facility] DATE CREATED AUTHOR AUTHOR'S ORGANIZ ATION 10/18/2023 [facility] DATE CREATED AUTHOR AUTHOR'S ORGANIZ ATION 10/22/2023 [facility] Reason for Visit (unrecogniz ed section [...] Op Visit Right breast reconst ruction with florist manager on 07/09/22. She complains of soreness, [...] Care Teams (unrecognized sec tion and content) Stove Cleaner Relationship Specialty Start Date End Date Shaikh Kerry Villagran MD [address] [place] [address] PCP - General Internal Medicine 05/20/22 Stove Cleaner Relationship Specialty Start Date End Date Shaikh Kerry Villagran MD [address] [place] [address] PCP - General Internal Medicine 05/20/22 Stove Cleaner Relationship Specialty Start Date End Date Shaikh Kerry Villagran MD [address] [place] [address] PCP - General Internal Medicine 05/20/22 Stove Cleaner Relationship Specialty Start Date End Date Shaikh Kerry Villagran MD [address] [place] [phone] PCP - General Internal Medicine 05/20/22 Stove Cleaner Relationship Specialty Start Date End Date Shaikh Kerry Villagran MD [address] [place] [address] PCP - General Internal Medicine 05/20/22 Stove Cleaner Relationship Specialty Start Date End Date Shaikh Kerry Villagran MD [address] [place] [address] PCP - General Internal Medicine 05/20/22 Team Status: Active Member Role Status Dates SHEIKH TYSHAWN Primary Care Provider Active Team Status: Inactive Member Role Status Dates Dr. Apolinar Henry MD Attending Provider Active Team Status: Active Member Role Status Dates Shaikh Tyshawn MD Primary Care Provider Active Team Status: Inactive Member Role Status Dates Susanne Jordan APRN Attending Provider Active Start: August 30, 2023 End: August 30, 2023 Team Status: Active Member Role Status Dates Susanne Jordan APRN Attending Provider Active Start: August 30, 2023 Shaikh Tyshawn MD Primary Care Provider Active Start: August 30, 2023 Team Status: Inactive Member Role Status Dates Shaikh Tyshawn MD Primary Care Provider Active Start: November 01, 2023 End: November 01, 2023 Susanne Jordan APRN Attending Provider Active Start: November 01, 2023 End: November 01, 2023 Scheduled Active and Recently Administ ered Medications [...] BE BASED ON THE PRIMARY CLINICAL RECORDS. [employer] [facility]. provides no warranty or guarantee of the accuracy or completeness of information in this document.
[2023-11-15 10:33] VITALS: BP 126/85; PULSE 73; RESP 16; TEMP 36; O2SAT 95
[2023-11-15 11:11] VITALS: BP 170/90; PULSE 74; PULSE 81; RESP 18; RESP 20; O2SAT 97; O2SAT 98
[2023-11-15] MEDS: LIDOCAINE HCL 2% PF 100 MG/5 ML VIAL 2 ML INJ (11:11)
[2023-11-15] MEDS: BUPIVACAINE HCL 0.25% PF 25 MG/10 ML VIAL 6 ML INJ (11:11)
[2023-11-15 11:14] VITALS: BP 168/78
--- NOTE | 2023-11-15 11:18 | W.PM.PROCNOT ---
Date of procedure: 11/15/23 Pre-op diagnosis: Lumbar spondylosis Post-op diagnosis: same as pre-op Procedure: Procedure: Bilateral L4-5, L5-S1 medial branch block Medications: Bupivacaine 0.25% 6cc The patient was seen and examined in the preoperative holding area.? An informed consent was obtained and placed on the chart.? The patient was brought to the medical procedure unit and placed in the prone position.? A timeout was completed verifying correct patient, procedure site, positioning, plan, and special equipment.? Using aseptic technique, the needle was placed at left L4. Under direct fluoroscopic visualization a Quincke-tipped spinal needle was advanced to the junction of the superior articulating process with the transverse process at the designated medial branch segment.? Preceded by negative aspiration, the above-mentioned injectate was placed in 1 mL aliquots.? The procedure was repeated at left L5, S1.? The needle was removed and insertion site was covered. The same procedure, at the same levels, was completed on the right side. The patient was taken to the postprocedural recovery area and monitored for an appropriate length of time before found suitable for discharge in the company of a responsible adult. Surgeon: Vanessa Mack Pathology: none sent Condition: stable Disposition: no change
== END 2023-11-15 11:20 | disposition home or self-care (01) ==
LOC: SURGOUT 10:01
PROVIDERS: PCP Internal Medicine; Visit Provider Anesthesiology
DX: M47.816 Spondylosis without myelopathy or radiculopathy, lumbar region (principal)
CPT/HCPCS: 64493; 64494

== ENCOUNTER 2023-11-25 13:33 | Outpatient (OUT) | payer MEDICARE, OTHER, SELFPAY ==
--- NOTE | 2023-11-25 13:51 | P.CN_ITS ---
Consult Note: HPI Data of Consult Patient: known to practice within the last 3 years Requesting Physician: Beth Morales NP Primary Care Provider: Shaikh Tyshawn MD Consult Narrative Reason for consult: f/u Narrative: Berenice Nolasco a pleasant 73 year old female presents for evaluation and management of low back pain. Pain today 4-5 ache increasing with twisting, pushing, pulling, standing, pain improved with sitting and heat. Pain increases to 8/10 at its most intense. ADELSO 42% with limitations in stnading, walking, sleeping, lifting, and completing ADLs. The patient has had over 3 months of moderate to severe low back pain with functional impairment and inadequate response to conservative care including NSAIDS (unless there are contraindication such as concurrent blood thinners), multiple oral or topical pain medications, and home exercise program/physical therapy.? Patient has completed >6 weeks of guided home exercise program and/or formal physical therapy program without relief of their symptoms.?I have reviewed the imaging of the lumbar spine and no red flags were identified.? The imaging reveals radiographic findings consistent with lumbar facet arthropathy. Recently underwent bilateral L4/5 L5/S1 MBB #1 with 30% improvement in pain. cc:: CC: Beth Morales NP Review of Systems ROS Status of ROS 10 or more systems reviewed and unremark able except as noted in history and below Musculoskeletal Reports: back pain and joint pain PFSH PFSH Medical History Osteoarthritis ?M19.90 - Unspecified osteoarthritis, unspecified site (ICD-10) H/O malignant neoplasm of breast ?Z85.3 - Personal history of malignant neoplasm of breast (ICD-10) Acid reflux ?K21.9 - Gastro-esophageal reflux disease without esophagitis (ICD-10) Diabetes ?E11.9 - Type 2 diabetes mellitus without complications (ICD-10) Sleep apnea ?G47.30 - Sleep apnea, unspecified (ICD-10) High cholesterol ?E78.00 - Pure hypercholesterolemia, unspecified (ICD-10) Surgical History S/P herniorrhaphy ?Z98.890 - Other specified postprocedural states (ICD-10) ?Z87.19 - Personal history of other diseases of the digestive system (ICD-10) H/O mastectomy ?Z90.10 - Acquired absence of unspecified breast and nipple (ICD-10) H/O arthroscopy of shoulder ?Z98.890 - Other specified postprocedural states (ICD-10) H/O arthroscopy of knee ?Z98.890 - Other specified postprocedural states (ICD-10) H/O bladder repair surgery ?Z98.890 - Other specified postprocedural states (ICD-10) H/O: hysterectomy ?Z90.710 - Acquired absence of both cervix and uterus (ICD-10) H/O breast reconstruction ?Z98.890 - Other specified postprocedural states (ICD-10) Social History Smoking status: Never smoker Meds Home Medications and Allergies Home Medications Medication Instructions Recorded Confirmed Type aspirin 81 mg tablet,delayed 81 mg PO DAILY 05/31/23 11/15/23 History release (Adult Low Dose Aspirin) calcium carbonate 600 mg-vitamin 1 tab PO DAILY 05/31/23 11/15/23 History D3 5 mcg (200 unit) tablet (Calcium 600 + D(3)) citalopram 20 mg tablet 30 mg PO DAILY 05/31/23 11/15/23 History esomeprazole magnesium 40 mg 40 mg PO DAILY 05/31/23 11/15/23 History capsule,delayed release (Nexium) famotidine 20 mg tablet 20 mg PO DAILY 05/31/23 11/15/23 History fesoterodine 8 mg tablet,extended 8 mg PO DAILY 05/31/23 11/15/23 History release 24 hr flaxseed oil 1,000 mg capsule 1,000 mg PO DAILY 05/31/23 11/15/23 History lactobacillus combination no.4 3 3,000 mmu cells PO DAILY 05/31/23 11/15/23 History billion cell capsule (Probiotic) levothyroxine 50 mcg capsule 50 mcg PO DAILY 05/31/23 11/15/23 History melatonin 10 mg capsule 10 mg PO DAILY 05/31/23 11/15/23 History multivitamin (Daily Multi-Vitamin 1 tab PO DAILY 05/31/23 11/15/23 History tablet) semaglutide 0.25 mg or 0.5 mg (2 0.25 mg subcut QWEEK 05/31/23 11/15/23 History mg/3 mL) subcutaneous pen injector (Ozempic) simvastatin 20 mg tablet 20 mg PO DAILY 05/31/23 11/15/23 History ondansetron 4 mg disintegrating 4 mg PO Q6H PRN nausea and 08/14/23 11/15/23 Rx tablet vomiting #20 tabs Allergies Allergy/AdvReac Type Severity Reaction Status Date / Time Penicillins Allergy Verified 11/15/23 10:42 Sulfa (Sulfonamide Allergy Verified 11/15/23 10:42 Antibiotics) Exam Constitutional Documenting provider has reviewed patient's vital signs: yes Common normals: no apparent distress, oriented x3, healthy appearing, alert and well nourished General appearance: cooperative HENMT Common normals: normocephalic, hearing grossly normal bilaterally and moist oral mucous membranes Head and scalp: normocephalic Eye Common normals: PERRL Pupil: PERRL Neck & C-Spine Common normals: full ROM General: normal visual inspection Chest Common normals: inspection of chest normal Respiratory Common normals: normal respiratory effort, no retractions and no use of accessory muscles Back & Pelvis Lumbar spine/lower back: ROM limited, pain with ROM and straight leg raise nega tive bilaterally Sacroiliac joints: SI joint(s) abnormal Other: mild pain with bilateral facet loading axial low back pain over L3,4,5,S1 no radiculopathy pain over bilateral PSIS, positive rox fadir thigh thrust gaenslens Extremity Common normals: normal to inspection and full ROM Neuro Common normals: oriented x3, CN's II-XII intact bilaterally, moves all extremities, no focal motor deficits, no sensory deficits noted and deep tendon reflexes 2+ bilaterally Sensorium/orientation: alert Motor exam: strength 5/5 throughout and no movement abnormalities noted Psych Common normals: mental status grossly normal, thought process normal, cooperative, affect normal, speech normal and activity/motor behavior normal Speech: normal speech Thought process: normal thought process Results Additional Findings Additional findings: If on a controlled substance or opioids, I have checked an [place] report on this patient and there are no aberrancies noted in the prescribing history.??If on a controlled substance or opioid a drug screen was completed and reviewed within the last year, and if there has not been a drug screen completed we ordered one today to monitor higher risk, state monitored pain medication use. As part of providing excellent, safe, comprehensive care, the following was completed at our patient's visit: 1. A medication reconciliation and review to ensure accurate knowledge of current/active medications, including asking our patients to inform us about any [id number] medications or herbal remedies/nutritional supplements/alternative remedies. 2. A review to specifically ensure our patients have had annual screening for screening for depression, screening for tobacco use, and screening for unhealthy alcohol use. For concerning screenings had a discussion with the patient, provided patient education, and recommended follow-up with primary care provider when appropriate. If patient noted with a risk of falling, they received education on strength, gait, and balance training to prevent future risk of falling. Assessment and Plan Assessment and Plan (1) Lumbar spondylosis: Assessment and Plan: We discussed the risks and benefits of the procedure with the patient, and we are NOT planning on using sedation as outlined in the guidelines from Medicare unless there is a documented reason that sedation would be strongly recommended.??The procedure will be completed with fluoroscopy guidance.? (2) Sacroiliac joint dysfunction of both sides: (3) Lumbar stenosis with neurogenic claudication: Plan PT for low back pain, sacroiliac joint dysfunction update lumbar MRI without contrast after PT continue current medications continue HEP as tolerated consider NS referral for SIJ fusion in the future as patient had 2 weeks of 100% pain relief from bilateral SIJ injection
== END 2023-11-25 13:34 | disposition home or self-care (01) ==
LOC: PM 13:34
PROVIDERS: PCP Internal Medicine; Visit Provider Nurse Practitioner
DX: M47.816 Spondylosis without myelopathy or radiculopathy, lumbar region (principal)
CPT/HCPCS: G0463

== ENCOUNTER 2023-12-01 15:05 | Outpatient (OUT) | payer MEDICARE, OTHER, SELFPAY ==
--- OUTSIDE RECORDS SUMMARY | 2023-11-30 13:17 | XMS_ITS | CCD ---
Author Organization [facility] Care Team Providers Care Certified Control Systems Technician Name Role Phone NANCY MARTINEZ Unavailable Unavailable NANCY MARTINEZ Unavailable Unavailable NADERER, TRINO~[phone] UNKNOWN Unavailable Unavailable GRUPO BROUSSARD Unavailable Unavailable MS Procedure Practitioner Unavailab ADAM Bernardo Surgeon Unavailable ADAM SKINNER Admitting Unavailable NADERER, TRINO Primary Care Unavailable NADERER, TRINO Referring Unavailable ADAM SKINNER Attending Unavailable LASHA BAKER Surgeon Unavailable MS Procedure Practitioner Unavailab le Shaikh Kerry Villagran MD Primary Care Provider Shaikh Kerry Villagran MD Primary Care Provider SHAIKH KERRY VILLAGRAN Primary Care Unavailab le GHAZOUL, APOILNAR Admitting Unavailable GHAZOUL, APOLINAR Attending Unavailable GHAZOUL, APOLINAR Referring Unavailable GHAZOUL, AOPLINAR Attending Unavailable GHAZOUL, APOLINAR Referring Unavailable [facility] Primary Care Unavailab le [facility] Primary Care Unavailab le SELF, SELF Referring Unavailable GHAZOUL, APOLINAR Attending Unavailable SHAIK VILLAGRANH KERRY Primary Care Unavailab le GHAZOUL, APOLINAR Referring Unavailable GHAZOUL, APOLINAR Attending Unavailable [facility] Primary Care Unavailab le SELF, SELF Referring Unavailable GHAZOUL, APOLINAR Attending Unavailable [facility] Primary Care Unavailab le SELF, SELF Referring Unavailable GHAZOUL, APOLINAR Attending Unavailable AKITNNuno, [facility] Primary Care Unavailab le SELF, SELF Referring Unavailable GHAZOUL, APOLINAR Attending Unavailable FAWWAD, FREED HAMIZUL Primary Care Unavailab le SELF, SELF Referring Unavailable GHAZOUL, APOLINAR Attending Unavailable [facility] Care Unavailab le SELF, SELF Referring Unavailable GHAZOUL, APOLINAR Attending Unavailable [facility], [facility] Primary Care Unavailab le SELF, SELF Referring Unavailable GHAZOUL, APOLINAR Attending Unavailable [facility]AD, [facility] Primary Care Unavailab le SELF, SELF Referring Unavailable GHAZOUL, APOLINAR Attending Unavailable [facility]AD, [facility] Primary Care Unavailab le SELF, SELF Referring Unavailable GHAZOUL, APOLINAR Attending Unavailable [facility]AD, [facility] Primary Care Unavailab le SELF, SELF Referring Unavailable GHAZOUL, APOLINAR Attending Unavailable [facility]AD, [facility] Primary Care Unavailab le SELF, SELF Referring Unavailable GHAZOUL, APOLINAR Attending Unavailable FA[facility]AD, [facility] Primary Care Unavailab le SELF, SELF Referring Unavailable GHAZOUL, APOLINAR Attending Unavailable FAWWAD, [facility] Primary Care Unavailab le FAWWAD, [facility] HAMIZUL Primary Care Unavailab le FAWWAD, [facility] Primary Care Unavailab le SELF, SELF Referring [...] Attending Unavailable FAWWAD, FREED H Consulting Unavailable WEST, DR ADAM Castellanos Admitting Unavailable WEST, DR ADAM Castellanos Attending Unavailable BROAD TOP, DR ADAM Castellanos Consulting Unavailable FAWWAD, FREED H Primary Care Unavailable KANIKA, DR TY Marquez Consulting Unavailable WEST, DR ADAM Castellanos Attending Unavailable WEST, DR ADAM Castellanos Admitting Unavailable FAWWAD, FERED H Primary Care Unavailable FAWWAD, FREED H Consulting Unavailable DR ADAM SCHWARTZ V Admitting Unavailable MARCELLUS, DR ADAM Castellanos Attending Unavailable FAWWAD, FREED H Primary Care Unavailable ADAM SKINNER Admitting Unavailable BRODY, ADAM Attending Unavailable FAWWAD, FREED H Primary Care Unavailable FAWWAD, FREED H Attending Unavailable FAWWAD, FREED H Consulting Unavailable FAWWAD, FREED H Primary Care Unavailable FAWWAD, FREED H Admitting Unavailable FAWWAD, FREED H Attending Unavailable FAWWAD, FREED H Consulting Unavailable FAWWAD, FREED H Primary Care Unavailable FAWWAD, FREED H Admitting Unavailable Julian, Susanne Unavailable Dr. Apolinar Henry Attending Provider [phone] Adriana Lyn Unavailable Apolinar Henry Attending Unavailable Apolinar Henry Attending Unavailable Apolinar Henry Attending Unavailable Fawwad, Freed Primary Care Unavailable Susanne Jordan R Attending Unavailable Susanne Jordan R Admitting Unavailable RENO Jordan Attending Provider MD Tyshawn [facility] Primary Care Provider [phone] Yolette MUNSON, Kevin Workman Attending Ela Villagran MD, [facility] Rocio [facility]agran MD, [facility] Rocio Betancourt MD, Jovan Cagle Attending Rocio Villagran MD, [facility] Rocio Vazquez PA-C, Agnieszka Salcedo Attending Shruti Villagran MD, [facility] Rocio Betancourt MD, Jovan Cagle Referring Rocio Field MD, Alycia Jerome Attending Unavailable Tyshawn ADAMSON, [facility] Primary Care Rocio Betancourt MD, Jovan Cagle Attending Rocio Villagran MD, [facility] Rocio Betancourt MD, Jovan Cagle Attending Rocio Villagran MD, [facility] Rocio Betancourt MD, Jovan Cagle Attending Rocio Betancourt MD, Adam Cardenas Attending Unavailaurelio Villagran MD, [facility] Rocio Villagran MD, [facility] Rocio Betancourt MD, Jovan Cagle Attending Rocio Villagran MD, [facility] Rocio Betancourt MD, Jovan Cagle Attending Rocio Villagran MD, [facility] Nancy Lee DO Attending Shruti meghan Mack MD, Andrandy Hernandez Attending Unavailable Tyshawn ADAMSON, [facility] Rocio Villagran MD, [facility] Rocio Mack MD, Tammyrius Hernandez Attending Unavailable Frederick ADAMSON, Andrius Vytautlizzeth Attending Unavailable Tyshawn ADAMSON, [facility] Rocio Mack MD, Andrius Hernandez Attending Unavailable Tyshawn ADAMSON, [facility] Rocio MUNSON, Kevin Workman Attending Ela Villagran MD, [facility] Rocio MUNSON, Kevin Workman Attending Ela Villagran MD, [facility] Rocio Villagran MD, [facility] Rocio MUNSON, Kevin Workman Attending RAMAKRISHNA Randall I Referring Unavailable TRINO MONTIEL Primary Care Unavailable RAMAKRISHNA LÓPEZ I Referring Unavailable TRINO MONTIEL Primary Care Unavailable Cyndie ADAMSON, Trino Primary Care Provider SHAIKH VILLAGRAN Attending Unavailable Allergies Allergy Classification Reported Allergen(s) Allergy Type Date of Onset Reaction(s) Facility (2 sources) cortisone; Translations: [cortisone] Drug Allergy [facility] (20 sources) Penicillins; Translations: [penicillins] Propensity to adverse reactions (disorder) 3 [facility]ching [facility] Repository (1 source) sulfamethoxazole; Translations: [sulfamethoxazole ] Drug Allergy [facility] (4 sources) Sulfonamides (Antibiotic) Drug allergy (disorder) 3 Itching [facility] Repository (15 sources) sulfaSALAzine; Translations: [SULFASALAZINE] Drug Allergy 7 [facility] (13 sources) Sulfonamides (Antibiotic) Propensity to adverse reactions to drug 3 [facility] (5 sources) Penicillin Drug Allergy Unknown [facility] Other (5 sources) Substance with sulfonamide structure and antibacterial mechanism of action (substance) Drug allergy Unknown [facility] Other (2 sources) Sulfonamides (Antibiotic) Allergy to substance 3 [facility] (2 sources) Sulfonamides (Antibiotic) Drug allergy (disorder) 3 [facility] (1 source) Sulfonamides (Antibiotic); Translations: [sulfa drugs] Propensity to adverse reactions to drug (disorder) [facility] Repository Medications Current Medications Medication Drug [...] aspirin 81 mg delayed release oral tablet (15 sources) Platelet Aggregation Inhibitor, Nonsteroidal Anti-inflammatory Drug [...] MG PO DAILY May 05, 2023 12:00am aspirin 81 mg Ta ke by mouth. 0 Active End: 07-09-2022 aspirin 81 MG Chew [...] PO DAILY May 05, 2023 12:00am Start: 11-27-2022 take 1.5 tablets by mouth in the morning citalopram (CeleXA) 20 mg tablet Take 1.5 tablets (30 mg total) by mouth in the morning. 0 11/27/2022 Active Start: 03-11-2022 End: 06-16-2022 citalopram 20 MG tablet take 1 and 1/2 tablet by mouth once daily 0 03/11/2022 Active Collagen (16 sources) Collagen 1000mg + Vitamin C qd Active COLLAGEN PO Take by mouth. 0 Active esomeprazole 40 mg oral tablet (15 sources) Proton Pump Inhibitor Start: 05-05-2023 take 40 mg by mouth once daily Esomeprazole Magnesium Active 40 MG PO DAILY May 05, 2023 12:00am Start: 06-09-2022 End: 05-20-2022 take 1 capsule by mouth once daily in the morning esomeprazole [address] capsule Take 1 capsule by mouth daily every morning. 0 06/09/2022 Active famotidine 20 mg oral tablet (20 sources) Histamine-2 Receptor Antagonist Start: 10-29-2023 take 20 mg by mouth once daily at bedtime Famotidine Active 20 MG PO Daily at bedtime October 29, 2023 12:00am Start: 05-05-2023 take 20 mg by mouth once daily Famotidine Active 20 MG PO DAILY May 05, 2023 12:00am 24 hr fesoterodine fumarate 8 mg extended release oral tablet (9 sources) Start: 10-29-2023 take 8 mg by mouth once daily Fesoterodine Active 8 MG PO Daily October 29, 2023 12:00am Start: 05-05-2023 take 8 mg by mouth once daily Fesoterodine Active 8 MG PO DAILY May 05, 2023 12:00am Start: 12-31-2022 take 1 tablet by stone th every twenty-four hours in the morning fesoterodine (TOVIAZ) 8 mg tablet extended release 24 hr Take 1 tablet (8 mg total) by mouth in the morning. 0 12/31/2022 Active Flax Seed Oil (5 sources) Flax Seed Oil 12 00mg qd Active fumarate (1 source) Start: 10-29-19 take 1 tablet by mouth once daily Dkfvxea-Dbfn8-Wlbyrx s Fumarate Active 1 TAB PO Daily [...] PO Daily October 29, 2023 12:00am Start: 10-16-2022 take 50 ug by mouth once daily Levothyroxine Active 50 MCG PO DAILY May 05, 2023 12:00am take 1 tablet by stone th once daily Levothyroxine Sodium 50 MCG take 1 tablet by mouth once daily Oral for 90 Days Active linseed oil 1000 mg oral capsule (15 sources) Start: 10-29-2023 take 1000 mg by mouth once daily Flaxseed Oil Active 1000 MG PO Daily October 29, 2023 12:00am administer with a meal melatonin 10 mg oral tablet (13 sources) Start: 05-05-2023 take 10 mg by mouth at bedtime Melatonin Active 10 MG PO BEDTIME May 05, 2023 12:00am MELATONIN PO Delmar e by mouth daily. 0 Active Psjbnjsv-Imu-Sp-Lycopen-Lute in (Complete Mv Adult 50 Plus) 0.4 mg-300 mcg- 250 mcg tablet (2 sources) Start: 05-05-2023 take 1 tablet by mouth once daily Wlwvpwdu-Nbw-Jl-Lycopen-Lutein (Complete Mv Adult 50 Plus) 0.4 mg-300 [...] morning meal Orally Once a day Active 24 hr oxybutynin chloride 15 mg extended release oral tablet (1 source) Cholinergic Muscarinic Antagonist Start: 11-30-2016 take 1 tablet by mouth once daily oxybutynin XL (DITROPAN XL) 15 mg 24 hr tablet Take 1 tablet (15 mg total) by mouth nightly. 1 11/30/2016 Active OZEMPIC 0.25 mg or 0.5 mg (2 mg/3 mL) pen injector (1 source) Start: 07-05-2023 OZEMPIC 0.25 m g or 0.5 mg (2 mg/3 mL) pen injector polyethylene glycol 3350 79440 mg powder for oral solution (3 sources) Osmotic Laxative Start: 10-29-2023 Polyethylene Glycol 3350 (Miralax) 17 gram/dose powder Active 17 GM PO Daily October 29, 2023 12:00am MiraLax Active Probiotic (3 sources) Probiotic Active raNITIdine (1 source) Histamine-2 Receptor Antagonist RANITIDINE HCL (ZANT AC ORAL) Take by mouth. 0 Active Semaglutide (3 sources) Start: 10-29-2023 Semaglutide (Ozempic) 0.25 mg or 0.5 mg (2 mg/3 [...] PO Daily October 29, 2023 12:00am Start: 09-01-2016 take 20 mg by mouth once daily [...] 3 days. 10 tablet 0 06/30/2022 Active [id number] 200 actuat albuterol 0.09 mg/actuat metered dose [...] Cellulose (SURGICEL) topical pad polyethylene glycol 3350 359514 mg / potassium chloride 2970 mg / sodium bicarbonate 6740 mg / sodium chloride 5860 mg / sodium sulfate 97102 mg powder for oral solution (1 source) [...] Translations: [Hyperlipidemia, unspecified] Onset: 10-23-2013 05-20-2022 Chronic Epilepsy; convulsions (1 source) Unspecified convulsions; Translations: [Unspecified convulsions] Onset: 11-18-2023 Episodic Esophageal disorders (20 sources) Gastroesophageal reflux disease; [...] knee, initial encounter] Onset: 02-27-2020 05-20-2022 Episodic Mood disorders (1 source) Mood disorders Onset: 08-17-2023 08-17-2023 Other diseases of veins and lymphatics (1 source) Venous insufficiency of leg; Translations: [Venous insufficiency (chronic) (peripheral)] Onset: 01-06-2023 01-06-2023 Episodic Other non-traumatic joint disorders (4 sources) [...] Test Name Value Interpretation Reference Range Facility MR BRAIN W WO CONTon 11-18- 024 MR BRAIN W WO CONT MR BRAIN W WO CONT MR BRAIN W WO CONT 11/18/2023 1:38 PM INDICATION: Seizure-like activity (CMS-HCC) COMPARISON: None TECHNIQUE: Multiplanar multisequence MR images of the brain were obtained with and without intravenous contrast. FINDINGS: BRAIN: Moderate nonspecific areas of subcortical and deep white matter increased FLAIR signal. Abnormal white matter signal is more confluent in the periventricular regions with signal crossing the corpus callosum along the ventricular margin splenium and genu. No areas of diffusion restriction. No acute intracranial hemorrhage. No pathologic enhancement. No mass lesion. Focus of susceptibility signal within the anterior felisha, favored to be due to remote microhemorrhage. Symmetric appearance of the hippocampi. Mild generalized brain parenchymal atrophy. VENTRICLES: Normal ventricular size. VASCULATURE: Patent major intracranial arterial vasculature. Patent major dural venous sinuses. ORBITS: Unremarkable. PARANASAL SINUSES: Visualized paranasal sinuses are well-aerated. TEMPORAL BONE: Well-aerated middle ears and visualized mastoid air cells. SOFT TISSUES: The visualized head and neck soft tissues are unremarkable. OSSEOUS STRUCTURES: Normal bone marrow signal. IMPRESSION: Moderate burden of nonspecific white matter signal abnormality, favored to be due to chronic small vessel ischemic change although additional etiologies could be considered. 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 Finalized by Zane Kwon DO on 11/19/2023 10:48 AM Normal [facility] Surgery Office/Clinic Noteon 10-11-2023 Surgery Office/Clinic Note [...] breast cancer History of colonoscopy with polypectomy IA (myocardial infarction) (2013) Morbid obesity with body [...] catheterization (07/2014) Comments: HAD HEART CATH AFTER IA DURING KNEE SCOPE. NO STENTS WERE PLACED [...] cancer: Aunt/Uncle. (more content not included)... Normal [facility] Urology Office/Clinic Noteon 09-01-2023 Urology Office/Clinic [...] breast cancer History of colonoscopy with polypectomy IA (myocardial infarction) (2013) Morbid obesity with body [...] sulfa drugs (Rash) Electronically signed by Yolette GAS APPLIANCE REPAIRER-Kevin PASTRANA 09/01/23 12:02 EST Normal [facility] Surgery Office/Clinic Noteon 07-20-2023 Surgery Office/Clinic [...] inguinal, left History of colonoscopy with polypectomy IA (myocardial infarction) (2013) Morbid obesity with body [...] Emely Zendejas PA-C 07/21/2023 08:27 EST Normal [facility] Operative Reporton 3 Operative Report Indication for Surge ry Patient is a 73 year old female with a symptomatic reducible left inguinal hernia Preoperative Diagnosis Symptomatic left inguinal hernia Postoperative Diagnosis same Operation Robotic left inguinal hernia repair Surgeon(s) Asia Zendejas PA-C Anesthesia Hempfling MATERIAL ASSISTANT, GET Estimated Blood Loss 5 ml Urine [...] Jovan Betancourt MD 07/01/23 10:19 EDT Normal [facility] Plastic Surgery Visit Report on 06-30-2023 Plastic Surgery Visit Report [facility] [address] [place], [place] [address] OFFICE VISIT Date of Service: 06/30/23 MR#: [id number] Acct: [id number] Name: LEILADESTINYBERENICE Rep #: [id number] : 1950 Provider: Dr. Apolinar flores MD Age/Sex: 73/F Location: [facility] Status: Signed Intake Vital Signs 05/05/23 [...] Reasons: preop #1 left breast red/ right jewel staker port Chief Complaint: left breast red and [...] mg PO HS 05/05/23 [History Confirmed 06/30/23] bnanywac-hqz-wumrj acid 0.4 mg-lycopene 300 mcg-lutein 250 mcg [...] HPI preop #1 left breast red/ right jewel staker port Details: Berenice comes in for preliminary [...] Z85.3 Breast hypertrophy N62 Breast asymmetry between [place] breast and reconstructed breast N65.1 Assessment (more content not included)... Normal [facility] .eGFRon 06-01-2023 GFR/1.73 sq M.predicted MDRD (S/P/Bld) [Vol rate/Area] mL/min/{1.73_m2} Normal >=60 [facility] Comment on above: Order Comment: Order added by Discern rule Result Comment: [facility] have implemented the eGFR calculation approach [...] years Performed By: #### E GFR #### [place] [address] CBC w/ Diffon 06-01-2023 Erythrocyte distribution width (RBC) [Ratio] 14.9 % High 11.6-14.8 [facility] Comment on above: Performed By: #### C BC #### [place] [address] Hematocrit (Bld) [Volume fraction] 41.0 % Normal 36.0-46.0 [facility] Comment on above: Performed By: #### C BC #### [place] [address] Hemoglobin (Bld) [Mass/Vol] 13.8 g/dL Normal 12.0-16.0 [facility] Comment on above: Performed By: #### C BC #### [place] [address] MCH (RBC) [Entitic mass] 28.6 pg Normal 27.0-35.0 [facility] Comment on above: Performed By: #### C BC #### [place] [address] MCHC 33.7 % Normal 31.0-37.0 [facility] Comment on above: Performed By: #### C BC #### [place] [address] MCV (RBC) [Entitic vol] 85.0 fL Normal 80.0-100.0 [facility] Comment on above: Performed By: #### C BC #### [place] [address] Platelet 180 x10*3/mcL Normal 150-450 [facility] Comment on above: Performed By: #### C BC #### [place] [address] Platelet mean volume (Bld) [Entitic vol] 8.6 fL Normal 7.5-11.5 [facility] Comment on above: Performed By: #### C BC #### [place] [address] RBC 4.82 x10*6/mcL Normal 3.80-5.20 [facility] Comment on above: Performed By: #### C BC #### [place] [address] WBC 8.6 x10*3/mcL Normal 4.5-11.0 [facility] Comment on above: Performed By: #### C BC #### [place] [address] CMPon 06-01-2023 Albumin [Mass/Vol] 4.1 g/dL Normal 3.7-5.3 [facility] Comment on above: Performed By: #### C OMP #### [place] [address] Albumin/Globulin [Mass ratio] 1.5 {ratio} Normal 1.1-2.2 [facility] Comment on above: Performed By: #### C OMP #### [place] [address] Alk Phos 130 IU/L High 34-104 [facility] Comment on above: Performed By: #### C OMP #### [place] [address] ALT [Catalytic activity/Vol] 37 U/L Normal 7-52 [facility] Comment on above: Performed By: #### C OMP #### [place] [address] Anion gap [Moles/Vol] 10 mmol/L Normal 7-17 [facility] Comment on above: Performed By: #### C OMP #### [place] [address] AST [Catalytic activity/Vol] 31 U/L Normal 13-39 [facility] Comment on above: Performed By: #### C OMP #### [place] [address] Bili Total 0.6 mg/dL Normal 0.3-1.0 [facility] Comment on above: Performed By: #### C OMP #### [place] [address] Calcium [Mass/Vol] 9.4 mg/dL Normal 8.6-10.3 [facility] Comment on above: Performed By: #### C OMP #### [place] [address] Chloride 103 IU/L Normal 98-107 [facility] Comment on above: Performed By: #### C OMP #### [place] [address] CO2 [Moles/Vol] 28 mmol/L Normal 21-31 [facility] Comment on above: Performed By: #### C OMP #### [place] [address] Creatinine [Mass/Vol] 0.79 mg/dL Normal 0.60-1.20 [facility] Comment on above: Performed By: #### C OMP #### [place] [address] Glucose [Mass/Vol] 108 mg/dL High 70-99 [facility] Comment on above: Performed By: #### C OMP #### [place] [address] Potassium [Moles/Vol] 4.2 mmol/L Normal 3.4-4.8 [facility] Comment on above: Performed By: #### C OMP #### [place] [address] Protein [Mass/Vol] 6.8 g/dL Normal 6.0-8.3 [facility] Comment on above: Performed By: #### C OMP #### [place] [address] Sodium [Moles/Vol] 137 mmol/L Normal 136-145 [facility] Comment on above: Performed By: #### C OMP #### [place] [address] Urea nitrogen [Mass/Vol] 17 mg/dL Normal 7-25 [facility] Comment on above: Performed By: #### C OMP #### [place] [address] Urea nitrogen/Creatini ne [Mass ratio] 21.5 mg/mg High 10.0-20.0 [facility] Comment on above: Performed By: #### C OMP #### [place] [address] Diff Autoon 06-01-2023 Baso Absolute 0.0 x10*3/mcL Normal 0.0-0.2 [facility] Comment on above: Performed By: #### C OMP #### [place] [address] Basophils/100 WBC (Bld) 0.3 % Normal 0.0-1.5 [facility] Comment on above: Performed By: #### C OMP #### [place] [address] Eos Absolute 0.1 x10*3/mcL Normal 0.0-0.4 [facility] Comment on above: Performed By: #### C OMP #### [place] [address] Eosinophils/100 WBC (Bld) 1.1 % Normal 0.0-5.4 [facility] Comment on above: Performed By: #### C OMP #### [place] [address] Lymph Absolute 2.0 x10*3/mcL Normal 1.0-4.8 [facility] Comment on above: Performed By: #### C OMP #### [place] [address] Lymphocytes/100 WBC (Bld) 23.1 % Low 27.2-40.8 [facility] Comment on above: Performed By: #### C OMP #### [place] [address] [place] Absolute 0.4 x10*3/mcL Normal 0.1-1.1 [facility] Comment on above: Performed By: #### C OMP #### [address] [address] Monocytes/100 WBC (Bld) 5.1 % Normal 3.7-11.9 [facility] Comment on above: Performed By: #### C OMP #### [address] [address] Neutro Absolute 6.1 x10*3/mcL Normal 1.8-7.7 [facility] Comment on above: Performed By: #### C OMP #### [place] [address] Neutro Auto 70.4 % Normal 47.2-70.8 [facility] Comment on above: Performed By: #### C OMP #### [place] [address] Plastic Surgery Visit Report on 05-05-2023 Plastic Surgery Visit Report [facility] [address] [place] [id number] OFFICE VISIT Date of Service: 05/05/23 MR#: [id number] Acct: [id number] Name: BERENICE NOLASCO Rep #: [id number] : 1950 Provider: Dr. Apolinar flores MD Age/Sex: 73/F Location: [facility] Status: Signed Intake Vital Signs 05/05/23 14:25 Height 5 ft 6 in Weight: 217 lb BMI 35.0 BP 120/78 Blood Pressure Location Lt brachial Position Sitting Respiration 16 Pulse 70 Pulse Source Monitor Temp 97.7 F L Temp Source Temporal Pulse Oximetry (%) 96 Oxygen Delivery Method room air Intake Visit Reasons: Consult Chief Complaint: Right breast reconsruction consult [place] Attendant Required: No Accompanied by: Is patient in [...] mg PO HS 05/05/23 [History Confirmed 05/05/23] qmckhmie-por-pjrbl acid 0.4 mg-lycopene 300 mcg-lutein 250 mcg tablet (Complete Multivitamin Adult 50 Plus) 1 tab PO DAILY 05/05/23 [History Confirmed 05/05/23] semaglutide 0.25 mg or 0.5 mg (2 mg/3 mL) subcutaneous pen injector (Ozempic) 0.25 mg subcut QWEEK 05/05/23 [History Confirmed 05/05/23] simvastatin 20 mg tablet 20 mg PO DAILY 05/05/23 [History Confirmed 05/05/23] [facility] Medical History (Updated 05/05/23 @ 15:33 [...] after having undergone reconstruction with a tissue jewel staker. Her initial right mastectomy was done approximately 30 years ago. She underwent placement of a tissue jewel staker in . Her last fill was in . She has a total of 390 cc of saline and the implant which is the capacity of the jewel staker as a permanent prosthesis. Her implant is a Kiester smooth round spectrum style 1400. Reference #[id number] has decided to leave the jewel staker and is a permanent implant. We had [...] incontinence Exam Chest Other: Patient with a jewel staker in place on the right breast. The port is palpable in the in (more content not included)... [facility] Office[facility]Clinic Noteon 02-18-2023 Urology Office/Clinic [...] breast cancer History of colonoscopy with polypectomy IA (myocardial infarction) Morbid obesity with body mass [...] by Kevin Joaquin 02/18/23 15:27 EDT Normal [facility] Urology Office/Clinic Noteon 12-23-2022 Urology Office/Clinic [...] to pharmacy. If too expensive will send Toaz. Follow-up in 6 weeks for symptom check. I did give her OAB handout and she is going to look over third line therapies as well. Ordered: mirabegron, 1 tabs, Oral, Daily, do not crush or chew, # 30 tabs, 11 Refill(s), Pharmacy: [id number] Problem List/Past Medical History Ongoing Arthritis of left hip CAD (coronary artery disease) Chronic cough Chronic GERD CPAP/BiPAP dependent Cystocele Depression Drug-induced obesity with body mass index (BMI) of 35 to less than 40 Encounter for gynecological examination (general) (routine) without abnormal findings Feeling of incomplete bladder emptying GERD H/O cardiac catheterization History of breast cancer History of colonoscopy with polypectomy Hyperlipidemia IA (myocardial infarction) Morbid obesity with body mass [...] sulfa drugs (Rash) Electronically signed by Yolette JOELKevin PASTRANA 12/23/22 17:08 EDT Normal [facility] VC CONSULT FOLLOWUPon 2022 VC CONSULT FOLLOWUP Patient: BERENICE NOLASCO Exam Date: 12/16/2022 : 1950 Gender:F Ordering : FREED TcPiero VILLAGRAN . Admission #: [id number] Family : Order #: [id number] CLICK HERE TO VIEW EXAM RADIOLOGY REPORT [...] Schwartz MD on 12/16/2022 at 14:59 Normal [facility] CBC AUTO DIFFon 09-16-2022 BASO # 0.0 103/ul Normal 0.0-0.1 [facility] Comment on above: Performed By: #### C BC #### [facility] [address] [place] [address] Dr. Danielle Penaloza Basophils/100 WBC (Bld) 0.5 % Normal 0.2-2.0 [facility] Comment on above: Performed By: #### C BC #### [facility] [address] [place] [address] Dr. Danielle Penaloza EO # 0.1 103/ul Normal 0.0-0.7 [facility] Comment on above: Performed By: #### C BC #### [facility] [address] [place] [address] Dr. Danielle Penaloza Eosinophils/100 WBC (Bld) 1.2 % Normal 0.9-7.0 [facility] Comment on above: Performed By: #### C BC #### [facility] [address] [place] [address] Dr. Danielle Penaloza Erythrocyte distribution width (RBC) [Ratio] 14.2 % Normal 11.0-15.0 [facility] Comment on above: Performed By: #### C BC #### [facility] [address] [place] [address] Dr. Danielle Penaloza Hematocrit (Bld) [Volume fraction] 42.5 % Normal 36.0-48.0 [facility] Comment on above: Performed By: #### C BC #### [facility] [address] [place] [address] Dr. Danielle Penaloza Hemoglobin (Bld) [Mass/Vol] 14.1 g/dL Normal 12.0-16.0 [facility] Comment on above: Performed By: #### C BC #### [facility] [address] [place] [address] Dr. Danielle Penaloza IG # 0.02 10e3/ul Normal 0.00-0.03 [facility] Comment on above: Performed By: #### C BC #### [facility] [address] [place] [address] Dr. Danielle Penaloza IG % 0.2 % Normal 0.0-0.5 [facility] Comment on above: Performed By: #### C BC #### [facility] [address] [place] [address] Dr. Danielle Penaloza LYMPH # 1.9 103/ul Normal 1.2-3.8 [facility] Comment on above: Performed By: #### C BC #### [facility] [address] [place] [address] Dr. Danielle Penaloza Lymphocytes/100 WBC (Bld) 23.4 % Normal 20.5-60.0 [facility] Comment on above: Performed By: #### C BC #### [facility] [address] [place] [address] Dr. Danielle Penaloza MANUAL DIFF REQ NO Normal [facility] Comment on above: Performed By: #### C BC #### [facility] [address] [place] [address] Dr. Danielle Penaloza MCH (RBC) [Entitic mass] 28.1 pg Normal 26.7-34.0 [facility] Comment on above: Performed By: #### C BC #### [facility] [address] [place] [address] Dr. Danielle Penaloza MCHC (RBC) [Mass/Vol] 33.2 g/dL Normal 29.9-35.2 [facility] Comment on above: Performed By: #### C BC #### [facility] [address] [place] [address] Dr. Danielle Penaloza MCV (RBC) [Entitic vol] 84.8 fL Normal 81.0-99.0 [facility] Comment on above: Performed By: #### C BC #### [facility] [address] [place] [address] Dr. Danielle Penaloza MONO # 0.5 103/ul Normal 0.3-0.8 [facility] Comment on above: Performed By: #### C BC #### [facility] [address] [place] [address] Dr. Danielle Penaloza Monocytes/100 WBC (Bld) 6.0 % Normal 1.7-12.0 [facility] Comment on above: Performed By: #### C BC #### [facility] [address] [place] [address] Dr. Danielle Penaloza NEUT # 5.5 103/ul Normal 1.4-6.5 [facility] Comment on above: Performed By: #### C BC #### [facility] [address] [place] [address] Dr. Danielle Penaloza Neutrophils/100 WBC (Bld) 68.7 % Normal 43.0-75.0 [facility] Comment on above: Performed By: #### C BC #### [facility] [address] [place] [address] Dr. Danielle Penaloza Platelet mean volume (Bld) [Entitic vol] 9.9 fL Normal 9.5-13.5 [facility] Comment on above: Performed By: #### C BC #### [facility] [address] [place] [address] Dr. Danielle Penaloza PLT 186 103/ul Normal 150-450 [facility] Comment on above: Performed By: #### C BC #### [facility] [address] [place] [address] Dr. Danielle Penaloza RBC 5.01 106/ul Normal 4.20-5.40 [facility] Comment on above: Performed By: #### C BC #### [facility] [address] [place] [address] Dr. Danielle Penaloza WBC 8.1 103/ul Normal 4.0-11.0 [facility] Comment on above: Performed By: #### C BC #### [facility] [address] [place] [address] Dr. Danielle Penaloza PROF CHEM 8 (BAS METB)on Anion gap [Moles/Vol] 10.8 mmol/L Normal [facility] Comment on above: Performed By: #### B MP, TSH #### [facility] [address] [place] [address] Dr. Danielle Penaloza Calcium [Mass/Vol] 9.2 mg/dL Normal 8.5-10.1 [facility] Comment on above: Performed By: #### B MP, TSH #### [facility] [address] [address] [address] Danielle Penaloza Chloride [Moles/Vol] 103 mmol/L Normal 98-107 [facility] Comment on above: Performed By: #### B MP, TSH #### [facility] [address] [address] [address] Danielle Penaloza CO2 [Moles/Vol] 30.5 mmol/L Normal 21.0-32.0 [facility] Comment on above: Performed By: #### B MP, TSH #### [facility] [address] [address] [address] Danielle Penaloza Creatinine [Mass/Vol] 0.63 mg/dL Normal 0.55-1.02 [facility] Comment on above: Performed By: #### B MP, TSH #### [facility] [address] [place] [address] Dr. Danielle Penaloza EGFR-AF MALAGASY >60 Normal >=60 [facility] Comment on above: Performed By: #### B MP, TSH #### [facility] [address] [place] [address] Dr. Danielle Penaloza EGFR-NON AF MALAGASY >60 Normal >=60 [facility] Comment on above: Performed By: #### B MP, TSH #### [facility] [address] [place] [address] Dr. Danielle Penaloza Glucose [Mass/Vol] 101 mg/dL Normal 74-106 [facility] Comment on above: Performed By: #### B MP, TSH #### [facility] [address] [place] [address] Dr. Danielle Penaloza Potassium [Moles/Vol] 4.3 mmol/L Normal 3.5-5.1 [facility] Comment on above: Performed By: #### B MP, TSH #### [facility] [address] [place] [address] Dr. Danielle Penaloza Sodium [Moles/Vol] 140 mmol/L Normal 136-145 [facility] Comment on above: Performed By: #### B MP, TSH #### [facility] [address] [place], [place] [address] Dr. Danielle Penaloza Urea nitrogen [Mass/Vol] 17.0 mg/dL Normal 7.0-18.0 [facility] Comment on above: Performed By: #### B MP, TSH #### [facility] [address] [place], [place] [address] Dr. Danielle Penaloza Urea nitrogen/Creatini ne [Mass ratio] 27.0 mg/mg Normal [facility] Comment on above: Performed By: #### B MP, TSH #### [facility] [address] [place], [place] [address] Dr. Danielle Penaloza TSHon 09-16-2022 TSH 2.028 uIU/mL Normal 0.358-3.740 [facility] Comment on above: Performed By: #### B MP, TSH #### [facility] [address] [place], [place] [address] Dr. Danielle Penaloza VC COMP CONSULTATIONon 09-16 VC COMP CONSULTATION Patient: BERENICE NOLASOC Exam Date: 09/16/2022 : 1950 Gender:F Ordering : SHAIKH Quirino VILLAGRAN . Admission #: [id number] Family : Order #: [id number] CLICK HERE TO VIEW EXAM RADIOLOGY REPORT [...] arterial disease 5. CEAP: C3, AP, AP, MS PLAN: 1. Use of compression stockings 2. [...] Boudreaux M.D. on 09/16/2022 at 15:49 Normal [facility] VC VENOUS REFLUX CHARLIE LMTon 0 09-16-2022 VC VENOUS REFLUX CHARLIE LMT Patient: BERENICE NOLASCO Exam Date: 09/16/2022 : 1950 Gender:F Ordering : SHAIKH Quirino VILLAGRAN . Admission #: [id number] Family : Order #: [id number] CLICK HERE TO VIEW EXAM RADIOLOGY REPORT [...] thrombus. Compressibility: Normal. Flow: Deep venous reflux. Route Service Representative: Prox medial lower leg perf measures 4.3 [...] M.D. on 09/16/2022 at 15:41 Normal [facility] XR CHEST PA AND LATERALon XR [...] Degenerative changes of the thoracic spine. Normal [facility] XR Chest PA and Lateralon [...] abnormality. Degenerative changes of the thoracic spine. [facility] Radiology Study observation (narrative) [facility] XR Chest PA and LateralOrder ed By: Silvestre Rivera on 09-15-2022 [employer] Work Phone: ECHOCARDIO M/2D COMPLETEon 1 ECHOCARDIO M/2D COMPLETE Patient: BERENICE NOLASCO Exam Date: 06/22/2022 : 1950 Gender:F Ordering : SHAIKH Quirino VILLAGRAN . Admission #: [id number] Family : APOLINAR HENRY Order #: [id number] CLICK HERE TO VIEW EXAM ECHOCARDIOGRAM REPORT [...] Mc M.D. on 06/23/2022 at 14:19 Normal [facility] FASTINGon 06-16-2022 A:G RATIO 1.6 RATIO Normal 1.3-2.2 [facility] Comment on above: Performed By: #### C MPF #### Testing performed at [address] [address] ALBUMIN 4.4 G/dl Normal 3.5-5.0 [facility] Comment on above: Performed By: #### C MPF #### Testing performed at [address] [address] ALP [Catalytic activity/Vol] 124 U/L Normal 38-126 [facility] Comment on above: Performed By: #### C MPF #### Testing performed at [address] [address] ALT [Catalytic activity/Vol] 35 U/L High <35 [facility] Comment on above: Performed By: #### C MPF #### Testing performed at [address] [address] AST [Catalytic activity/Vol] 31 U/L Normal 14-36 [facility] Comment on above: Performed By: #### C MPF #### Testing performed at [address] [address] Bilirubin [Mass/Vol] 0.5 mg/dL Normal 0.2-1.3 [facility] Comment on above: Performed By: #### C MPF #### Testing performed at [address] [address] Calcium [Mass/Vol] 8.8 mg/dL Normal 8.4-10.2 [facility] Comment on above: Performed By: #### C MPF #### Testing performed at [address] [address] Chloride [Moles/Vol] 102 mmol/L Normal 98-107 [facility] Comment on above: Result Comment: Plea se note: Triglyceride levels of 600mg/dL or higher may positively bias chloride results by approximately 2.1 mmol Performed By: #### C MPF #### [place] [address] CO2 [Moles/Vol] 28 mmol/L Normal 22-30 [facility] Comment on above: Performed By: #### C MPF #### [place] [address] Creatinine [Mass/Vol] 0.60 mg/dL Low 0.7-1.2 [facility] Comment on above: Performed By: #### C MPF #### [place] [address] EST. GFR, 126 ml/min/1.73sq.m [facility] Comment on above: Performed By: #### C MPF #### [place] [address] EST. GFR,Non 104 ml/min/1.73sq.m [facility] Comment on above: Performed By: #### C MPF #### [place] [address] GFR Information Average GFR for 70+ years old = 75. 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 Kidney failure, GFR = <15. The GFR estimate is not adjusted for extreme body surface area or acute process, nor has it been validated for women or ethnic groups other than and . Testing performed at [place] [address] Performed By: #### C MPF #### [place] [address] Glucose [Mass/Vol] 98 mg/dL Normal 70-100 [facility] Comment on above: Result Comment: NORMAL <100 mg/dL PREDIABETES 101-126 mg/dL DIABETES 126 mg/dL or higher Performed By: #### C MPF #### Testing performed at [place] [id number] Potassium [Moles/Vol] 4.3 mmol/L Normal 3.5-5.1 [facility] Comment on above: Performed By: #### C MPF #### Testing performed at [address] [address] Protein [Mass/Vol] 7.2 g/dL Normal 6.3-8.2 [facility] Comment on above: Performed By: #### C MPF #### Testing performed at [address] [address] Sodium [Moles/Vol] 139 mmol/L Normal 137-145 [facility] Comment on above: Performed By: #### C MPF #### Testing performed at [place] [id number] Urea nitrogen [Mass/Vol] 14 mg/dL Normal 7-20 [facility] Comment on above: Performed By: #### C MPF #### Testing performed at [address] [address] FREE T3on 03-24-2022 FREE T3 2.69 pg/mlL Normal 2.18-3.98 [facility] Comment on above: Performed By: #### B MP, TSH #### [facility] [address] [place] [address] Dr. Danielle Penaloza TSHon 03-24-2022 TSH 2.001 uIU/mL Normal 0.358-3.740 [facility] Comment on above: Performed By: #### T SH, FT3 #### [facility] [address] [place] [address] Dr. Danielle Penaloza Covid-19 PCR (CVDTB)on 02-12 SARS-CoV-2 (COVID-19) RNA ADELAIDA+probe Ql (Unsp spec) Not detected Normal NOT DETECTED [facility] Comment on above: Result Comment: This test is not yet approved or cleared by the [place] FDA. When there are no FDA-approved or cleared tests available, and other criteria are met, FDA can make tests available under an emergency access mechanism called an Emergency Use Authorization (EUA). The EUA for this test is supported by the [place] of Health and Human Service's (HHS's) declaration [...] consistent with SARS-CoV-2. Performed By: #### C [facility] #### [facility] [address] [place] [address] Dr. Danielle Penaloza Operative Reporton 0 Operative Report MR#: [id number] [facility] Pt. Name: Berenice Nolasco Room #: 0C Discharge Date: Birthdate: 1950 OPERATIVE REPORT DATE OF SURGERY: 06/07/2020 SURGEON: Adam Skinner M.D. PREOPERATIVE DIAGNOSIS: Right knee medial and lateral meniscal tears. POSTOPERATIVE DIAGNOSES: 1. Right knee medial and lateral meniscal tears. 2. Right knee Hoffa's fat pad hypertrophy and inflammation. DIRECTOR CRITICAL CARE: Bindu Rick M.D. ANESTHESIA: General. PROCEDURES PERFORMED: [...] Skinner M.D. Date Trans: 06/07/2020 09:06 A/irena [id number] cc: Trino Montiel M.D. [address] [place] [address] Normal [facility] POC GLUCOSE LABon 06-07-2020 Glucose [Mass/Vol] 109 mg/dL High 70-100 [facility] Comment on above: Performed By: #### 8 5499 #### [facility] [address] [place] [address], [facility] *SARS-CoV-2 COVID-19on 06-04 [id number] Not Detected Normal Not Detected [facility] Comment on above: Order Comment: The A ptima SARS-CoV-2 assay is a nucleic acid amplification test intended for the qualitative detection of RNA from SARS-CoV-2 isolated and purified from nasopharyngeal (CARDIAC NURSE PRACTITIONER),oropharyngeal (OP), nasal swab, sputum, and bronchoalveolar lavage (BAL) specimens from patients with signs and symptoms of infection who are suspected of COVID-19. Results are for the identification of SARS-CoV-2 RNA. The SARS-CoV-2 RNA is generally detectable during the acute phase of infection. The Aptima SARS-CoV-2 Assay on the e-SENS and e-SENS Fusion system is intended for use by laboratory personnel specifically instructed and trained in the operation of the [place] and e-SENS Fusion system. The Aptima SARS-CoV-2 assay is [...] information. Performed By: #### 3 1792 #### [facility] [address] [place] [address], [facility] KNEE RIGHT 3 VWSon 0 KNEE RIGHT 3 VWS [facility] Department of Radiology [address] [place] [id number] Patient Name: BERENICE NOLASCO : 1950 [...] KNEE RIGHT 3 S KNEE RIGHT 3 S 01/22/2020 11:43 AM [...] reports Electronically signed: DELANO BLANCO. Transcribed by: [email or web address], User Resident: YONY PAN Electronically Signed by: DELANO BLANCO @ 01/22/2020 02:18 PM I personally read this/these film(s) with this resident Normal [facility] ED PROV NOTEon 08-06-2018 Protein mass conc HNO ID: [id number] thor: Cas Kernice: (none)Author Type: PhysicianType: ED Provider NotesFiled: 08/13/2018 10:43 AMNote Text:[facility] [place], [place] [address]IKTHMK INFORMATION MANAGEMENTEMERGENCY DEPARTMENT REPORTPatient: BERENICE NOLASCO JOEL A M.D. as dictated by GRUPO BROUSSARD, MELINA-[id number] FStatus: DEP ER EDDate of Service: [...] M.D. Signed By: CAS CANTU M.D.Tests performed at:[address] [phone] Normal [facility] ED REPORTon 08-06-2018 ED REPORT THE [place], [place] [address]YRVRRY INFORMATION MANAGEMENTEMERGENCY DEPARTMENT REPORTPatient: BERENICE NOLASCO JOEL A M.D. as dictated by GRUPO BROUSSARD, MELINA-[id number] FStatus: DEP ER EDDate of Service: 08/05/18CHIEF [...] of the plan of care will be dischargedoswaldoe.Bennett chung sinusitis. 08/13/18 1027 CAS CANTU M.D.cc: CAS CANTU M.D. << Signature on File>> Reported By: CAS CANTU M.D. Signed By: CAS CANTU M.D.Tests performed at:[address] [phone] Normal [facility] BCon 08-05-2018 No Growth Normal [facility] Comment on above: Performed By: #### L 100.0440 ####ML - [id number] [place] [address] No Growth Normal [facility] Comment on above: Performed By: #### M 105.0000 ####ML - [id number] [place] [address] [facility] Anion gap 3 molar conc 17.5 mmol/L Normal 15- [facility] Comment on above: Performed By: #### L 100.0010, L301.0120 ####ML - [id number] [place] [address] Calcium mass conc 8.7 mg/dL Low 8.8-10.2 [facility] Comment on above: Performed By: #### L 100.0010, L301.0120 ####ML - [id number] [place] [address] Chloride molar conc 101 mmol/L Normal 98-107 [facility] Comment on above: Performed By: #### L 100.0010, L301.0120 ####ML - [id number] [place] [address] Creatinine mass conc 0.53 mg/dL Normal 0.50-0.90 [facility] Comment on above: Performed By: #### L 100.0010, L301.0120 ####ML - [id number] [place] [address] eGFR if AFR MELISSA > 60 ml/min/1.73m2 Normal [facility] Comment on above: Result Comment: eGFR >= 60 Indicates normal kidney function. * eGFR IS AN ESTIMATE * (AFR MELISAS = ) (non-AFR AM = NON-) _ MDRD calculation used in the eGFR should not be used to dose medications. For further limitations of the eGFR please refer to the Physician Website or the National Kidney Disease Education Program website (www.nkdep.nih.gov). Performed By: #### L 100.0010, L301.0120 #### - [facility] [place] [address] eGFR nonAFR Melissa > 60 ml/Min/1.73m2 Normal U [facility] Comment on above: Performed By: #### L 100.0010, L301.0120 ####[address] [address] Glucose mass conc 122 mg/dL High 82-115 [facility] Comment on above: Performed By: #### L 100.0010, L301.0120 ####[address] [address] Potassium molar conc 3.5 mmol/L Normal 3.5-5.0 [facility] Comment on above: Performed By: #### L 100.0010, L301.0120 ####[facility] [address] [place] [address] Sodium molar conc 138 mmol/L Normal 135-145 [facility] Comment on above: Performed By: #### L 100.0010, L301.0120 ####[facility] [place] [address] TCO2 23 mmol/L Normal 22-29 [facility] Comment on above: Performed By: #### L 100.0010, L301.0120 ####[address] [address] Urea nitrogen mass conc 14 mg/dL Normal 8- [facility] Comment on above: Performed By: #### L 100.0010, L301.0120 ####[address] [address] CBCon 08-05-2018 Basophils Auto #/vol (Bld) 0.00 x10(3) Normal 0.00-0.10 [facility] Comment on above: Performed By: #### L 200.0010 ####[address] [address] Basophils/100 WBC Auto (Bld) 0.2 % Normal 0.0-1.0 [facility] Comment on above: Performed By: #### L 200.0010 ####[address] [address] Eosinophils Auto #/vol (Bld) 0.00 x10(3) Normal 0.00-0.54 [facility] Comment on above: Performed By: #### L 200.0010 ####[address] [address] Eosinophils/100 WBC Auto (Bld) 0.1 % Low 0.5-4.9 [facility] Comment on above: Performed By: #### L 200.0010 ####[address] [address] Erythrocyte distribution width Auto Ratio (RBC) 15.7 % Normal 12.5-15.7 [facility] Comment on above: Performed By: #### L 200.0010 ####[address] [address] Hematocrit Auto Volume Fraction (Bld) 39.4 % Normal 36.0-48.0 [facility] Comment on above: Performed By: #### L 200.0010 ####[address] [address] Hemoglobin mass conc (Bld) 13.8 g/dL Normal 12.0-16.0 [facility] Comment on above: Performed By: #### L 200.0010 ####[address] [place] [address] Lymphocytes Auto #/vol (Bld) 0.50 x10(3) Low 1.00-3.50 [facility] Comment on above: Performed By: #### L 200.0010 ####ML - [address] [address] Lymphocytes/100 WBC Auto (Bld) 7.8 % Low 16.0-48.0 [facility] Comment on above: Performed By: #### L 200.0010 ####ML - [address] [address] MCH Auto Entitic mass (RBC) 27.6 pg Low 28.5-32.9 [facility] Comment on above: Performed By: #### L 200.0010 ####ML - [address] [address] MCHC Auto mass conc (RBC) 35.1 g/dL Normal 33.0-36.0 [facility] Comment on above: Performed By: #### L 200.0010 ####ML - [address] [address] MCV Auto Entitic volume (RBC) 78.7 fL Low 80.0-99.0 [facility] Comment on above: Performed By: #### L 200.0010 ####ML - [address] [address] Monocytes Auto #/vol (Bld) 0.40 x10(3) Normal 0.30-0.80 [facility] Comment on above: Performed By: #### L 200.0010 ####ML - [address] [address] Monocytes/100 WBC Auto (Bld) 5.4 % Normal 4.3-11.2 [facility] Comment on above: Performed By: #### L 200.0010 ####ML - [address] [address] Neutrophils Auto #/vol (Bld) 5.70 x10(3) Normal 1.40-6.50 [facility] Comment on above: Performed By: #### L 200.0010 ####[facility] [id number] [place] [address] Neutrophils/100 WBC Auto (Bld) 86.5 % High 45.0-73.0 [facility] Comment on above: Performed By: #### L 200.0010 ####ML [facility] [place] [address] Platelet mean volume Auto Entitic volume (Bld) 8.1 fL Normal 7.5-9.5 [facility] Comment on above: Performed By: #### L 200.0010 ####ML [facility] [place] [address] Platelets Auto #/vol (Bld) 115 X10(3) Low 150-450 [facility] Comment on above: Performed By: #### L 200.0010 ####ML - [address] [address] RBC Auto #/vol (Bld) 5.00 x10(6) Normal 3.30-5.00 [facility] Comment on above: Performed By: #### L 200.0010 ####[address] [address] WBC Auto #/vol (Bld) 6.6 x10(3) Normal 4.5-10.0 [facility] Comment on above: Performed By: #### L 200.0010 ####[address] [address] CHEST (TWO VIEWS) - CXRon CHEST (TWO VIEWS) - CXR [address] [address]Arsf: BERENICE NOLASCO KPhys: GRUPO BROUSSARD (ED): 50 Age: 68 Sex: FAcct: [id number] Loc: EDExam Date: 08/05/18 Status: REG ERRadiology No.: [id number] Number: [id number] # Type/[id number] RAD / CHEST (TWO VIEWS) - CXRTwo-view chestClinical statement: Weakness. History of right mastectomyComparison study: NoneFindings:The heart size is normal. The left diaphragm is elevated. There is nopulmonary consolidation. No pneumothorax. Multilevel degenerative changes seenin the spine. Surgical clips identified in the right axilla.Impression:Elevated left diaphragm. No focal consolidationProfessional interpretation provided by [facility] [place] [address].Thank you for this referral.< >Reported By: XANDER MARTINEZ M.D.Signed In NovaPro By: XANDER MARTINEZ M.D. << Signature on File>> Reported By: XANDER MARTINEZ M.D. Signed By: XANDER MARTINEZ M.D.Tests performed at:[address] [phone] Normal [facility] CT BRAIN WITHOUT CONTRAST- C TBon 08-05-2018 CT BRAIN WITHOUT CONTRAST- CTB [address] [address]Icyu: BERENICE NOLASCO hys: GRUPO BROUSSARD CARDIAC NURSE PRACTITIONER-C (ED): 50 Age: 68 Sex: FAcct: [id number] Loc: EDExam Date: 08/05/18 Status: REG ERRadiology No.: [id number] Number: [id number] # Type/[id number] CT / CT BRAIN WITHOUT CONTRAST- CTBCT [...] algorithm.Professional interpretation provided by [facility] [place] [address].Thank you for this referral.< >Reported By: XANDER MARTINEZ M.D.Signed In NovaPro By: XANDER MARTINEZ M.D. << Signature on File>> Reported By: XANDER MARTINEZ M.D. Signed By: XANDER MARTINEZ M.D.Tests performed at:[place] [address] [address], [place] [phone] Normal [facility] ED PROV NOTEon 08-05-2018 Protein mass conc HNO ID: [id number] thor: Cas Kernice: (none)Author Type: PhysicianType: ED Provider NotesFiled: 08/13/2018 10:42 AMNote Text:[place], [place] [address]TBWWRN INFORMATION MANAGEMENTEMERGENCY DEPARTMENT REPORTPatient: BERENICE NOLASCO JOEL A M.D.[id number] FStatus: DEP ER EDDate of Service: 08/05/18CHIEF [...] are downgoing. There is no pronator drift. Ttczejjpijqm-cg-ijsa, ujxv-ax-vrgb.EMERGENCY DEPARTMENT COURSESent for CT which was negative. Labs were all pretty much negative and noUTI.CLINICAL DIAGNOSISCephalgia.MYRIAMDisjayro arged to home to follow up with the family doctor and return ifproblems of any kind. She is treated for what is presumed to be a sinusinfection as well with antibiotics. She can return if worse or problemsof any kind. 08/13/18 1027 CAS CANTU M.D.cc: CAS CANTU M.D. << Signature on File>> Reported By: CAS CANTU M.D. Signed By: CAS CANTU M.D.Tests performed at:[address] [phone] Normal [facility] EMERGENCY DEPARTMENT REPORTo n 08-05-2018 EMERGENCY DEPARTMENT REPORT [place], [place] [address]XLGNGE INFORMATION MANAGEMENTEMERGENCY DEPARTMENT REPORTPatient: BERENICE NOLASCO JOEL A M.D.[id number][birth year] 68 FStatus: DEP ER EDDate of Service: [...] are downgoing. There is no pronatordrift. Normal zmznfw-aw-wlwg, kcwb-qx-oyiu.EMERGENCY DEPARTMENT COURSESent for CT which was negative. [...] M.D. Signed By: CAS CANTU M.D.Tests performed at:[address] [phone] Normal [facility] FLU A & Bon 08-05-2018 FLU A Negative Normal NEGATIVE [facility] Comment on above: Order Comment: What is the source+ SWAB Performed By: #### L 400.0006 ####ML [address] [address] FLU B Negative Normal NEGATIVE [facility] Comment on above: Order Comment: What is the source+ SWAB Result Comment: Infe ction due to Flu A and Flu B can not be ruled out. Flu Aand/or Flu B antigen in the sample may be below detectionlimit of the test. The gold standard for Flu A and Flu B vicente viral culture. Performed By: #### L 400.0006 ####ML - [address] [address] LACTIC ACIDon 08-05-2018 Lactate molar conc 0.8 mmol/L Normal 0.5-2.0 [facility] Comment on above: Performed By: #### L 100.0440 ####ML - [id number] [place] [address] TROPONIN Ton 08-05-2018 Troponin T.cardiac mass conc ug/L Normal 0-0.010 [facility] Comment on above: Performed By: #### L 100.0010, L301.0120 ####ML - [id number] [place] [address] UA W/C&Son 08-05-2018 Bilirubin Ql (U) Negative Normal NEGATIVE [facility] Comment on above: Order Comment: Urine Specimen Source+ CLEAN CATCH Performed By: #### L 200.3001 ####ML - [id number] [place] [address] Color Nom (U) YELLOW Normal YELLOW [facility] Comment on above: Order Comment: Urine Specimen Source+ CLEAN CATCH Performed By: #### L 200.3001 ####ML - [id number] [place] [address] Glucose Ql (U) Negative Normal NEGATIVE [facility] Comment on above: Order Comment: Urine Specimen Source+ CLEAN CATCH Performed By: #### L 200.3001 ####ML - [facility] [id number] [place] [address] Hemoglobin Test strip Ql (U) Negative Normal NEGATIVE [facility] Comment on above: Order Comment: Urine Specimen Source+ CLEAN CATCH Performed By: #### L 200.3001 ####ML - [id number] [place] [address] Leukocyte esterase Test strip Ql (U) Negative Normal NEGATIVE [facility] Comment on above: Order Comment: Urine Specimen Source+ CLEAN CATCH Performed By: #### L 200.3001 ####ML - [id number] [place] [address] Nitrite Test strip Ql (U) Negative Normal NEGATIVE [facility] Comment on above: Order Comment: Urine Specimen Source+ CLEAN CATCH Performed By: #### L 200.3001 ####ML - [id number] [place] [address] pH Test strip (U) 6.0 [pH] Normal 5.0-8.0 [facility] Comment on above: Order Comment: Urine Specimen Source+ CLEAN CATCH Performed By: #### L 200.3001 ####ML - U[facility] [id number] [place] [address] Protein Test strip Ql (U) Negative Normal NEGATIVE [facility] Comment on above: Order Comment: Urine Specimen Source+ CLEAN CATCH Performed By: #### L 200.3001 ####ML - [facility] [id number] [place] [address] URINE APPEARANC CLEAR Normal CLEAR [facility] Comment on above: Order Comment: Urine Specimen Source+ CLEAN CATCH Performed By: #### L 200.3001 ####ML - U[facility] [id number] [place] [address] URINE KETONE Negative Normal NEGATIVE [facility] Comment on above: Order Comment: Urine Specimen Source+ CLEAN CATCH Performed By: #### L 200.3001 ####ML - UH [id number] [place] [address] URINE SPECIFIC <=1.005 Normal 1.001-1.035 [facility] Comment on above: Order Comment: Urine Specimen Source+ CLEAN CATCH Performed By: #### L 200.3001 ####ML - U[facility] [id number] [place] [address] URINE UROBILINO 0.2 EU/DL Normal 0.2-1.0 [facility] Comment on above: Order Comment: Urine Specimen Source+ CLEAN CATCH Performed By: #### L 200.3001 ####ML - U[facility] [id number] [place] [address] Coding Summary.on 07-28-2017 Coding Summary. CODING DATE: 017 [facility] STATUS: PAYOR: Medicare ADMIT DX: REASON FOR [...] Good Date Saved: 07/28/2017 10:55 am Normal [facility] Vital Signs Date Time Vital Sign Value Performing Clinician Facility 11-01-2023 12:53-0500 Body height 167.64 cm MD Shaikh Villagran Work Phone: [facility] 11-01-2023 12:53-0500 Body mass index (BMI) [Ratio] 32.9 kg/m2 MD Shaikh Villagran Work Phone: [facility] 11-01-2023 12:53-0500 Body weight 92.58 kg MD Shaikh Villagran Work Phone: [facility] 11-01-2023 12:53-0500 Diastolic blood pressure 86 mm[Hg] MD Shaikh Villagran Work Phone: [facility] 11-01-2023 12:53-0500 Heart rate 71 /min MD Shaikh Villagran Work Phone: [facility] 11-01-2023 12:53-0500 Respiratory rate 18 /min MD Shaikh Villagran Work Phone: [facility] 11-01-2023 12:53-0500 SaO2% (BldA) [Mass fraction] 95 % MD Shaikh Villagran Work Phone: [facility] 11-01-2023 12:53-0500 Systolic blood pressure 127 mm[Hg] MD Shaikh Villagran Work Phone: [facility] 08-30-2023 10:00-0500 Body height 167.64 cm MD Shaikh Villagran Work Phone: [facility] 08-30-2023 10:00-0500 Body weight 91.98 kg MD Shaikh Villagran Work Phone: [facility] 08-30-2023 10:00-0500 Diastolic blood pressure 87 mm[Hg] MD Shaikh Villagran Work Phone: [facility] 08-30-2023 10:00-0500 Systolic blood pressure 134 mm[Hg] MD Shaikh Villagran Work Phone: [facility] 07-21-2023 13:00-0500 Body height 167.64 cm Adriana Fitt Other [facility] Other 07-21-2023 13:00-0500 Body mass index (BMI) [Ratio] 33.52 kg/m2 Adriana Fitt Other [facility] Other 07-21-2023 13:00-0500 Body weight 94.21 kg Adriana Fitt Other [facility] Other 07-05-2023 14:15-0400 Body height 167.64 cm Susanne Missler Other [facility] Other 07-05-2023 14:15-0400 Body mass index (BMI) [Ratio] 33.62 kg/m2 Susanne Missler Other [facility] Other 07-05-2023 14:15-0400 Body weight 94.48 kg Susanne Missler Other [facility] Other 07-05-2023 14:15-0400 Diastolic blood pressure 87 mm[Hg] Susanne Missler Other [facility] Other 07-05-2023 14:15-0400 Respiratory rate 18 /min Susanne Missler Other [facility] Other 07-05-2023 14:15-0400 SaO2% (BldA) [Mass fraction] 93 % Susanne Missler Other [facility] Other 07-05-2023 14:15-0400 Systolic blood pressure 133 mm[Hg] Susanne Jordan Other [facility] Other 06-30-2023 15:08-0400 Body height 167.[address] Apolinar Henry Work Phone: [facility] 06-30-2023 15:08-0400 Body mass index (BMI) [Ratio] 33.5 kg/m2 Dr. Apolinar Henry Work Phone: [facility] 06-30-2023 15:08-0400 Body temperature 97.3 [degF] Dr. Apolinar Henry Work Phone: [facility] 06-30-2023 15:08-0400 Body weight 94.[address] Apolinar Henry Work Phone: [facility] 06-30-2023 15:08-0400 Diastolic blood pressure 81 mm[Hg] Dr. Apolinar Henry Work Phone: [facility] 06-30-2023 15:08-0400 Heart rate 65 /min Dr. Apolinar Henry Work Phone: [facility] 06-30-2023 15:08-0400 Respiratory rate 16 /min Dr. Apolinar Henry Work Phone: [facility] 06-30-2023 15:08-0400 SaO2% (BldA) [Mass fraction] 94 % Dr. Apolinar Henry Work Phone: [facility] 06-30-2023 15:08-0400 Systolic blood pressure 135 mm[Hg] Dr. Apolinar Henry Work Phone: [facility] 05-27-2023 10:00-0400 Body height 167.64 cm Adriana Lyn Other [facility] Other 05-27-2023 10:00-0400 Body mass index (BMI) [Ratio] 34.65 kg/m2 Adriana Trammellt Other [facility] Other 05-27-2023 10:00-0400 Body weight 97.39 kg Adriana Trammellt Other [facility] Other 05-05-2023 14:25-0400 Body height 167.[address] Apolinar Henry Work Phone: [facility] 05-05-2023 14:25-0400 Body mass index (BMI) [Ratio] 35 kg/m2 Dr. Apolinar Henry Work Phone: [facility] 05-05-2023 14:25-0400 Body temperature 97.7 [degF] Dr. Apolinar Henry Work Phone: [facility] 05-05-2023 14:25-0400 Body weight 98.[address] Apolinar Henry Work Phone: [facility] 05-05-2023 14:25-0400 Diastolic blood pressure 78 mm[Hg] Dr. Apolinar Henry Work Phone: [facility] 05-05-2023 14:25-0400 Heart rate 70 /min Dr. Apolinar Henry Work Phone: [facility] 05-05-2023 14:25-0400 Respiratory rate 16 /min Dr. Apolinar Henry Work Phone: [facility] 05-05-2023 14:25-0400 SaO2% (BldA) [Mass fraction] 96 % Dr. Apolinar Henry Work Phone: [facility] 05-05-2023 14:25-0400 Systolic blood pressure 120 mm[Hg] Dr. Apolinar Henry Work Phone: [facility] 03-15-2023 12:45-0400 Body height 167.64 cm Susanne Missler Other [facility] Other 03-15-2023 12:45-0400 Body mass index (BMI) [Ratio] 36.42 kg/m2 Susanne Missler Other [facility] Other 03-15-2023 12:45-0400 Body weight 102.38 kg Susanne Missler Other [facility] Other 03-15-2023 12:45-0400 Diastolic blood pressure 84 mm[Hg] Susanne Missler Other [facility] Other 03-15-2023 12:45-0400 Respiratory rate 18 /min Susanne Missler Other [facility] Other 03-15-2023 12:45-0400 SaO2% (BldA) [Mass fraction] 96 % Susanne Missler Other [facility] Other 03-15-2023 12:45-0400 Systolic blood pressure 131 mm[Hg] Susanne Missler Other [facility] Other 11-18-2022 14:58-0500 Body height 167.6 cm Apolinar Henry MD Work Phone: [employer] 11-18-2022 14:58-0500 Body temperature 97 [degF] Apolinar Henry MD Work Phone: [employer] 11-18-2022 14:58-0500 Diastolic blood pressure 83 mm[Hg] Apolinar Henry MD Work Phone: [employer] 11-18-2022 14:58-0500 Heart rate 78 /min Apolinar Henry MD Work Phone: 4(926)154-322599 [place] [address] 11-18-2022 14:58-0500 Systolic blood pressure 143 mm[Hg] Apolinar Henry MD Work Phone: 8(499)089-857948 [place] [address] 10-21-2022 13:46-0500 Body height 167.6 cm Apolinar Henry MD Work Phone: 3(790)028-475948 [place] [address] 10-21-2022 13:46-0500 Body temperature 97.3 [degF] Apolinar Henry MD Work Phone: 9(096)746-640448 [place] [address] 10-21-2022 13:46-0500 Diastolic blood pressure 86 mm[Hg] Apolinar Hnery MD Work Phone: 8(478)962-046948 [place] [address] 10-21-2022 13:46-0500 Heart rate 76 /min Apolinar Henry MD Work Phone: 2(660)803-338848 [place] [address] 10-21-2022 13:46-0500 Systolic blood pressure 142 mm[Hg] Apolinar Henry MD Work Phone: 6(071)449-366948 [place] [address] 10-07-2022 14:27-0500 Body height 167.6 cm Apolinar Henry MD Work Phone: 7(766)396-143248 [place] [address] 10-07-2022 14:27-0500 Body temperature 97.9 [degF] Apolinar Henry MD Work Phone: 7(381)147-571348 [place] [address] 10-07-2022 14:27-0500 Diastolic blood pressure 81 mm[Hg] Apolinar Henry MD Work Phone: 0(576)396-396048 [place] [address] 10-07-2022 14:27-0500 Heart rate 74 /min Apolinar Henry MD Work Phone: 8(761)409-321748 [place] [address] 10-07-2022 14:27-0500 Systolic blood pressure 140 mm[Hg] Apolinar Henry MD Work Phone: 9(547)871-226848 [place] [address] 09-23-2022 14:36-0500 Body height 167.6 cm Apolinar Henry MD Work Phone: 1(991)528-357748 [place] [address] 09-23-2022 14:36-0500 Body mass index (BMI) [Ratio] 35.83 kg/m2 Apolinar Henry MD Work Phone: 7(170)272-469848 [place] [address] 09-23-2022 14:36-0500 Body temperature 97.3 [degF] Apolinar Henry MD Work Phone: 3(459)441-950148 [place] [address] 09-23-2022 14:36-0500 Body weight 100.7 kg Apolinar Henry MD Work Phone: 5(922)301-274648 [place] [address] 09-23-2022 14:36-0500 Diastolic blood pressure 97 mm[Hg] Apolinar Henry MD Work Phone: 7(857)186-823448 [place] [address] 09-23-2022 14:36-0500 Heart rate 82 /min Apolinar Henry MD Work Phone: 1(508)621-001448 [place] [address] 09-23-2022 14:36-0500 Systolic blood pressure 152 mm[Hg] Apolinar Henry MD Work Phone: 9(710)842-583248 [place] [address] 08-12-2022 15:03-0500 Body height 167.6 cm Apolinar Henry MD Work Phone: 9(283)855-745848 [place] [address] 08-12-2022 15:03-0500 Body mass index (BMI) [Ratio] 35.83 kg/m2 Apolinar Henry MD Work Phone: 2(440)372-418248 [place] [address] 08-12-2022 15:03-0500 Body temperature 96.69 [degF] Apolinar Henry MD Work Phone: 3(845)237-180348 [place] [address] 08-12-2022 15:03-0500 Body weight 100.7 kg Apolinar Henry MD Work Phone: 0(668)910-198648 [place] [address] 08-05-2022 14:20-0500 Body height 167.6 cm Apolinar Henry MD Work Phone: 8(161)627-781948 [place] [address] 08-05-2022 14:20-0500 Body mass index (BMI) [Ratio] 35.83 kg/m2 Apolinar Henry MD Work Phone: 7(857)514-617048 [place] [address] 08-05-2022 14:20-0500 Body temperature 97.2 [degF] Apolinar Henry MD Work Phone: 4(296)542-562148 [place] [address] 08-05-2022 14:20-0500 Body weight 100.7 kg Apolinar Henry MD Work Phone: 5(796)465-112948 [place] [address] 08-05-2022 14:20-0500 Diastolic blood pressure 90 mm[Hg] Apolinar Henry MD Work Phone: 9(358)568-327048 [place] [address] 08-05-2022 14:20-0500 Heart rate 75 /min Apolinar Henry MD Work Phone: 7(273)023-050648 [place] [address] 08-05-2022 14:20-0500 Systolic blood pressure 156 mm[Hg] Apolinar Henry MD Work Phone: 9(449)467-620048 [place] [address] 07-22-2022 13:23-0500 Body height 167.6 cm Apolinar Henry MD Work Phone: 6(960)579-395948 [place] [address] 07-22-2022 13:23-0500 Body mass index (BMI) [Ratio] 35.83 kg/m2 Apolinar Henry MD Work Phone: 2(545)212-768548 [place] [address] 07-22-2022 13:23-0500 Body temperature 97.81 [degF] Apolinar Henry MD Work Phone: 9(407)841-980548 [place] [address] 07-22-2022 13:23-0500 Body weight 100.7 kg Apolinar Henry MD Work Phone: 8(344)050-123248 [place] [address] 07-22-2022 13:23-0500 Diastolic blood pressure 80 mm[Hg] Apolinar Henry MD Work Phone: 5(098)071-677748 [place] [address] 07-22-2022 13:23-0500 Heart rate 69 /min Apolinar Henry MD Work Phone: 2(176)292-691148 [place] [address] 07-22-2022 13:23-0500 Systolic blood pressure 133 mm[Hg] Apolinar Henry MD Work Phone: 1(267)506-740148 [place] [address] 07-15-2022 13:33-0400 Body height 167.6 cm Apolinar Henry MD Work Phone: 1(136)722-760848 [place] [address] 07-15-2022 13:33-0400 Body mass index (BMI) [Ratio] 35.83 kg/m2 Apolinar Henry MD Work Phone: 3(925)625-931848 [place] [address] 07-15-2022 13:33-0400 Body temperature 97.9 [degF] Apolinar Henry MD Work Phone: 9(469)112-725448 [place] [address] 07-15-2022 13:33-0400 Body weight 100.7 kg Apolinar Henry MD Work Phone: 6(626)444-013648 [place] [address] 07-15-2022 13:33-0400 Diastolic blood pressure 83 mm[Hg] Apolinar Henry MD Work Phone: 7(812)126-032448 [place] [address] 07-15-2022 13:33-0400 Heart rate 75 /min Apolinar Henry MD Work Phone: 1(157)904-443148 [place] [address] 07-15-2022 13:33-0400 Systolic blood pressure 140 mm[Hg] Apolinar Henry MD Work Phone: 5(702)181-636448 [place] [address] 07-09-2022 16:55-0400 Diastolic blood pressure 79 mm[Hg] Apolinar Henry MD Work Phone: 2(727)554-747848 [place] [address] 07-09-2022 16:55-0400 Heart rate 87 /min Apolinar Henry MD Work Phone: 7(015)774-990948 [place] [address] 07-09-2022 16:55-0400 Respiratory rate 18 /min Apolinar Henry MD Work Phone: 4(935)484-990348 [place] [address] 07-09-2022 16:55-0400 SaO2% (BldA) [Mass fraction] 97 % Apolinar Henry MD Work Phone: 6(705)131-662448 [place] [address] 07-09-2022 16:55-0400 Systolic blood pressure 149 mm[Hg] Apolinar Henry MD Work Phone: 4(659)219-169148 [place] [address] 07-09-2022 15:05-0400 Body temperature 97.3 [degF] Apolinar Henry MD Work Phone: 9(820)417-112148 [place] [address] 07-09-2022 08:58-0400 Body height 167.6 cm Apolinar Henry MD Work Phone: 5(404)261-062148 [place] [address] 07-09-2022 08:58-0400 Body mass index (BMI) [Ratio] 35.83 kg/m2 Apolinar Henry MD Work Phone: 0(871)075-080148 [place] [address] 07-09-2022 08:58-0400 Body weight 100.7 kg Apolinar Henry MD Work Phone: 1(419)164-649348 [place] [address] 06-30-2022 14:44-0400 Body height 167.6 cm Apolinar Henry MD Work Phone: 8(079)314-373648 [place] [address] 06-30-2022 14:44-0400 Body mass index (BMI) [Ratio] 35.83 kg/m2 Apolinar Henry MD Work Phone: 3(260)416-751048 [place] [address] 06-30-2022 14:44-0400 Body temperature 97.7 [degF] Apolinar Henry MD Work Phone: 3(469)723-312848 [place] [address] 06-30-2022 14:44-0400 Body weight 100.7 kg Apolinar Henry MD Work Phone: 8(897)500-699148 [place] [address] 06-30-2022 14:44-0400 Diastolic blood pressure 97 mm[Hg] Apolinar Henry MD Work Phone: 3(381)295-595948 [place] [address] 06-30-2022 14:44-0400 Heart rate 119 /min Apolinar Henry MD Work Phone: 1(757)135-173348 [place] [address] 06-30-2022 14:44-0400 Systolic blood pressure 148 mm[Hg] Apolinar Henry MD Work Phone: 7(598)488-382548 [place] [address] 06-16-2022 11:36-0400 Body height 167.6 cm Apolinar Henry MD Work Phone: 6(777)963-204848 [place] [address] 06-16-2022 11:36-0400 Body mass index (BMI) [Ratio] 35.99 kg/m2 Apolinar Henry MD Work Phone: 9(983)358-811948 [place] [address] 06-16-2022 11:36-0400 Body temperature 97.5 [degF] Apolinar Henry MD Work Phone: 5(681)022-432748 [place] [address] 06-16-2022 11:36-0400 Body weight 101.15 kg Apolinar Henry MD Work Phone: 6(892)721-137748 [place] [address] 06-16-2022 11:36-0400 Diastolic blood pressure 89 mm[Hg] Apolinar Henry MD Work Phone: 7(715)895-950148 [place] [address] 06-16-2022 11:36-0400 Heart rate 76 /min Apolinar Henry MD Work Phone: 1(397)113-519548 [place] [address] 06-16-2022 11:36-0400 Systolic blood pressure 148 mm[Hg] Apolinar Henry MD Work Phone: 2(355)420-935948 [place] [address] 05-20-2022 13:46-0400 Body temperature 98.01 [degF] Apolinar Henry MD Work Phone: 2(862)091-086048 [place] [address] 05-20-2022 13:46-0400 Body weight 100.7 kg Apolinar Henry MD Work Phone: 2(720)587-022248 [place] [address] 05-20-2022 13:46-0400 Diastolic blood pressure 95 mm[Hg] Apolinar Henry MD Work Phone: [phone] [place] [address] 05-20-2022 13:46-0400 Heart rate 80 /min Apolinar Henry MD Work Phone: [facility] 05-20-2022 13:46-3805 Systolic blood pressure 150 mm[Hg] Apolinar Henry MD Work Phone: [facility] Encounters Encounter Date Encounter Type Care Provider Facility Start: 11-29-2023 End: 11-29-2023 ambulatory SHAIKH TYSHAWN Not Available Start: 11-25-2023 Telephone encounter Chelsea Acevedo [facility] Comment on above: Results Start: 11-18-2023 End: 11-19-2023 ambulatory [facility] Start: 11-18-2023 End: 11-18-2023 ambulatory [facility] Start: 11-15-2023 End: 11-16-2023 ambulatory Shaikh Kerry Villagran MD Facility:[facility] Start: 11-01-2023 End: 11-01-2023 ambulatory MD Shaikh Villagran Work Phone: [facility] Work Phone: Start: 11-01-2023 End: 11-01-2023 Patient encounter procedure MD Shaikh Villagran Work Phone: [facility] Work Phone: Start: 10-11-2023 End: 10-12-2023 ambulatory Shaikh Kerry Villagran MD Facility:[facility] Start: 09-15-2023 End: 09-16-2023 ambulatory Shaikh Kerry Villagran MD Facility:[facility] Start: 09-01-2023 End: 09-02-2023 ambulatory Kevin De La Vega APRN-SENIOR CONSTRUCTION MANAGER Facility:[facility] Start: 08-30-2023 ambulatory Shaikh Tyshawn Facility: [facility] Start: 08-30-2023 Registered Recurring MD Shaikh Villagran Work Phone: [facility] Work Phone: Start: 08-30-2023 End: 08-30-2023 Patient encounter procedure MD Shaikh Villagran Work Phone: [facility] Work Phone: Start: 07-21-2023 ([facility] RD FU) [facility] F/ U Registerd Superintendent Pier Adriana Lyn [facility] Start: 07-21-2023 End: 07-21-2023 ambulatory Adriana Lyn Other [facility] [employer] Other Start: 07-20-2023 End: 07-21-2023 ambulatory Shaikh Kerry Villagran MD Facility:[facility] Start: 07-05-2023 [facility] Weight Management f/u Susanne Jordan [facility] Start: 07-05-2023 End: 07-06-2023 ambulatory Vanessa Mack MD [facility] [employer] Other Start: 07-01-2023 End: 07-01-2023 ambulatory Shaikh Kerry Villagran MD Facility:[facility] Start: 06-30-2023 End: 06-30-2023 ambulatory Apolinar Henry Facility:[facility] Start: 06-30-2023 End: 06-30-[address] Apolinar Henry Work Phone: [facility] Work Phone: Start: 06-30-2023 End: 06-30-[address] Apolinar Henry Work Phone: [facility] Work Phone: Start: 06-21-2023 End: 06-22-2023 ambulatory Vanessa Mack MD Facility: [facility] Start: 06-16-2023 End: 06-17-2023 ambulatory Shaikh Kerry Villagran MD Facility:[facility] Start: 06-02-2023 End: 06-03-2023 ambulatory Shaikh Kerry Villagran MD Facility:[facility] Start: 06-01-2023 End: 06-02-2023 ambulatory Adam Betancourt MD Facility:[facility] Start: 06-01-2023 End: 06-02-2023 ambulatory Shaikh Kerry Villagran MD Facility:[facility] Start: 05-31-2023 End: 06-01-2023 ambulatory Vanessa Mack MD Facility:[facility] Start: 05-27-2023 ([facility] RD FU) [facility] F/ U Registerd Superintendent Pier Adriana Lyn [facility] Start: 05-27-2023 End: 05-27-2023 ambulatory Adriana Lyn Other [employer] Other Start: 05-05-2023 End: 05-05-2023 ambulatory Apolinar Henry Facility:[facility] Start: 05-05-2023 End: 05-05-[address] Apolinar Henry Work Phone: [facility] Work Phone: Start: 05-05-2023 End: 05-05-[address] Apolinar Henry Work Phone: [facility] Work Phone: Start: 04-12-2023 End: 04-12-2023 ambulatory Susanne Jordan Other [employer] Other Start: 04-12-2023 Telephone encounter [facility] Start: 03-15-2023 [facility] Weight Management f/u [facility] Start: 03-15-2023 End: 03-15-2023 ambulatory Susanne [facility] Other [employer] Other Start: 02-18-2023 End: 02-19-2023 ambulatory Kevin De La Vega APRN-SENIOR CONSTRUCTION MANAGER [facility] Start: 01-20-2023 End: 01-21-2023 ambulatory Shaikh Kerry Villagran MD Facility:[facility] Start: 01-01-[address] ADAM SCHWARTZ Facilit y:[facility] Start: 12-23-2022 End: 12-24-2022 ambulatory Kevin De La Vega APRN-SENIOR CONSTRUCTION MANAGER Facility:[facility] Start: 12-16-2022 End: 12-17-[address] ADAM SCHWARTZ Facility:[facility] Start: 11-18-2022 ambulatory SHAIKH KERRY [facility] Start: 11-18-2022 End: 11-18-2022 Office outpatient visit 25 minutes Apolinar Henry MD Work Phone: [facility] Pl[facility] Comment on above: 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); S/P breast reconstruction Start: 09-23-2022 ambulatory [facility] Start: 09-23-2022 End: 09-23-2022 Postop follow up visit related to original px Apolinar Henry MD Work Phone: [facility] Comment on above: 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); S/P breast reconstruction Start: 09-16-2022 End: 09-17-2022 ambulatory SHAIKH Tc AmandaTNNuno Facility:[facility] Start: 09-16-2022 End: 09-17-[address] TY BOUDREAUX Facility:[facility] Start: 09-15-2022 [facility] Start: 09-15-2022 End: 09-15-2022 Subsequent hospital visit by physician Apolinar Henry MD Work Phone: [facility] Comment on above: Arrived Start: 08-26-2022 ambulatory [facility] Start: 08-12-2022 [facility] Start: 08-12-2022 End: 08-12-2022 Postop follow up visit related to original debi Henry MD Work Phone: [facility] Comment on above: S/P breast reconstru ction (Primary Dx); Personal history of malignant neoplasm of breast; Acquired absence of right breast and nipple Start: 08-05-2022 [facility] Start: 08-05-2022 End: 08-05-2022 Postop follow up visit related to original debi Henry MD Work Phone: [facility] Comment on above: S/P breast reconstru ction (Primary Dx) Start: [facility]2022 [facility] Start: 07-22-2022 End: 07-22-2022 Postop follow up visit related to original px Apolinar Henry MD Work Phone: [facility] Comment on above: 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); S/P breast reconstruction Start: 07-15-2022 [facility] Start: 07-15-2022 End: 07-15-2022 Postop follow up visit related to original px Apolinar Henry MD Work Phone: [facility] Comment on above: 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); Personal history of malignant neoplasm of breast; S/P breast reconstruction Start: 07-09-2022 End: 07-09-2022 [facility] Start: 07-09-2022 End: 07-09-2022 Subsequent hospital visit by physician Apolinar Henry MD Work Phone: [facility] Comment on above: Personal history of malignant neoplasm of breast Start: 06-30-2022 [facility] Start: 06-30-2022 End: 06-30-2022 Office outpatient visit 40 minutes Apolinar Henry MD Work Phone: [facility] Comment on above: S/P breast reconstru ction (Primary Dx); Acquired absence of right breast and nipple; Personal history of malignant neoplasm of breast Start: 06-25-2022 Encounter for other preprocedural examination [facility] Start: 06-23-2022 [facility] Start: 06-22-2022 End: 06-23-2022 ambulatory [facility] Facility:[facility] Start: 06-22-2022 End: 06-23-2022 Encounter for other preprocedural examination [facility] Facility: Start: 06-16-2022 [facility] Start: 06-16-2022 Encounter for other preprocedural examination [facility] Start: 06-16-2022 [facility] Start: 06-16-2022 End: 06-16-2022 Office outpatient visit 25 minutes Apolinar Henry MD Work Phone: [facility] Comment on above: Personal history of malignant neoplasm of breast (Primary Dx); Acquired absence of right breast and nipple Start: 05-21-2022 End: 06-20-2022 ambulatory SHAIKH KERRY VILLAGRAN [facility] Start: 05-20-2022 ambulatory SHAIKH KERRY VILLAGRAN [facility] Start: 05-20-2022 End: 05-20-2022 Office outpatient new 60 minutes Apolinar Henry MD Work Phone: [facility] Comment on above: Personal history of malignant neoplasm of breast (Primary Dx); Acquired absence of right breast and nipple Start: 03-24-2022 End: 03-25-2022 ambulatory SHAIKH Tc VILLAGRAN Facility: Start: 03-02-2022 End: 03-02-2022 ambulatory SHAIKH Tc VILLAGRAN Facility:[facility] Start: 01-13-2022 End: 01-14-2022 ambulatory SHAIKH Tc VILLAGRAN Facility: Start: 06-07-2020 End: 06-08-2020 Patient encounter procedure MS Facility:[facility] Start: 08-05-2018 End: 08-05-2018 Emergency department patient visit GRUPO BROUSSARD Facility:[facility] Start: 07-27-2017 End: 10-14-2017 Ambulatory NANCY MARTINEZ Facility[facility] Procedures Date Procedure Procedure Detail Performing Clinician Start: 08-17-2023 Adult depression scr eening assessment Chelsea Acevedo Start: 09-23-2022 Follow-up visit Follow-up APOLINAR HENRY Start: 09-15-2022 Radiologic exam chest 2 views Apolinar Henry MD Work Phone: Start: 06-07-2020 ANESTH KNEE JOINT SURGERY LASHA BAKER Start: 06-07-2020 KNEE ARTHROSCOPY/SURGERY ADAM SKINNER Start: 08-05-2018 Electrocardiogram GRUPO BROUSSARD Plan of Treatment Date Care Activity Detail Author Start: 11-15-2024 Adult BMI Screening Adult BMI Screen ing [facility] Start: 08-23-2024 End: 08-23-2024 Patient encounter procedure 08/23/2024 2:00 PM EST Office Visit [facility] [address] [place] [address], [address] [place] [phone] Angel Cole MD [address] [place] [address] [facility] Start: 08-18-2024 Tobacco Screening Tobacco Screening [facility] Start: 08-17-2024 Depression Screening Depression Scre ening [facility] Start: 03-02-2024 End: 03-02-2024 Patient encounter procedure 03/02/2024 2:00 PM EDT Office Visit [facility] [address] [place] [phone] [place]rishna Ló[place] [address] [place] [address], [address], [address] [place] [address] [facility] Start: 09-01-2023 Administration of varicella zoster vaccine Zoster (Shingles) Vaccine (2 of 2) [facility] Start: 07-30-2023 ambulatory Ambulatory Facility:[facility] Start: 05-14-2023 COVID-19 Vaccine ( season) COVID-19 Vaccine ( season) [facility] Start: 04-06-2023 MAMMOGRAM LEFT MAMMOGRAM LEFT [facility] Start: 04-06-2023 Screening for malign ant neoplasm of breast MAMMOGRAM LEFT [facility] Start: 01-11-2023 DTaP,Tdap and Td Vaccines (2 - Td or Tdap) DTaP,Tdap and Td Vaccines (2 - Td or Tdap) [facility] Start: 01-11-2023 Tetanus vaccination [facility] Start: 11-18-2022 End: 11-18-2022 Patient encounter procedure 11/18/2022 Office Visit Plastic Surgery Apolinar Henry MD [address] [place] [address] [facility] Start: 10-21-2022 End: 10-21-2022 Patient encounter procedure 10/21/2022 Office Visit Plastic Surgery Apolinar Henry MD [address] [place] [address], [place] [address] [facility] Start: 10-07-2022 End: 10-07-2022 Patient encounter procedure 10/07/2022 Office Visit Plastic Surgery Apolinar Henry MD [address] [place] [address], [place] [address] [facility] Start: 09-23-2022 End: 09-23-2022 Patient encounter procedure 09/23/2022 Office Visit Plastic Surgery Apolinar Henry MD [address] [place] [address], [place] [address] [facility] Start: 08-26-2022 End: 08-26-2022 Patient encounter procedure 08/26/2022 Office Visit Plastic Surgery Apolinar Henry MD [address] [place] [address], [place] [address] [facility] Start: 08-12-2022 End: 08-12-2022 Patient encounter procedure 08/12/2022 Office Visit Plastic Surgery Apolinar Henry MD [address] [place] [address], [place] [address] [facility] Start: 08-05-2022 End: 08-05-2022 Patient encounter procedure 08/05/2022 Office Visit Plastic Surgery Apolinar Henry MD [address] [place] [address], [place] [address] [facility] Start: 07-22-2022 End: 07-22-2022 Patient encounter procedure 07/22/2022 Office Visit Plastic Surgery Apolinar Henry MD [address] [place] [address], [place] [address] [facility] Start: 07-15-2022 End: 07-15-2022 Patient encounter procedure 07/15/2022 Office Visit Plastic Surgery Apolinar Henry MD [address] [place] [address] [facility] Start: 07-09-2022 Subsequent hospital visit by physician 07/09/2022 Hospital Encounter Multispecialty Apolinar Henry MD [address] [place] [address] Personal history of malignant neoplasm of breast [facility] Comment on above: Personal history of malignant neoplasm of breast Start: 07-09-2022 End: 07-09-2022 Admission to same day surgery center 07/09/2022 Surgery Multispecialty Apolinar Henry MD [address] [place] [address] RT BREAST RECONSTRUCTION W/ PLACEMENT TISSUE FUEL TECHNICIAN & ADM [facility] Comment on above: RT BREAST RECONSTRUC TION W/ PLACEMENT TISSUE FUEL TECHNICIAN & ADM Start: 07-09-2022 End: 07-09-2022 Anesthesia consultation 07/09/2022 Anesthesia Event Multispecialty Deo Moeller, DO [address] [place] [address] [facility] Start: 07-09-2022 End: 07-09-2022 Brst rcnstj immt/dlyd w/tiss jewel staker sbsq xpnsj RECONSTRUCTION BREAST TISSUE FUEL TECHNICIAN INCLUDING SUBSEQUENT EXPANDERS Personal history of malignant [...] Visit Plastic Surgery Apolinar Henry MD [address] [place] [address] [facility] Start: 05-14-2022 Influenza vaccination INFLUENZA VACC INE (#1) [facility] Start: 12-03-2021 COVID-19 VACCINE (4 - Booster for Pfizer series) COVID-19 VACCINE (4 - Booster for Pfizer series) [facility] Start: 09-30-2021 COVID-19 VACCINE (4 - Booster for Pfizer series) COVID-19 VACCINE (4 - Booster for Pfizer series) [facility] Start: 2015 Fall Risk Screening Fall Risk Screen ing [facility] Start: 2015 Pneumococcal vaccination PNEUM OCOCCAL VACCINE SERIES (1 - PCV) [facility] Start: 2000 Zoster vaccine hzv l vera for subcutaneous use ZOSTER (SHINGLES) VACCINE (1 of 2) [facility] Start: 1995 Colonoscopy COLORECTAL CAN CER SCREENING DISCUSSION [facility] Start: 1995 Screening for malign ant neoplasm of colon COLORECTAL CANCER SCREENING DISCUSSION [facility] Start: 1990 Fasting lipid profile LIPID SCREENIN G [facility] Start: 1990 Lipid panel LIPID SCREENING [facility] Start: 1980 MAMMOGRAM LEFT MAMMOGRAM LEFT [facility] Start: 1971 Screening for malign ant neoplasm of cervix CERVICAL CANCER SCREENING DISCUSSION [facility] Start: 1969 Third diphtheria, tetanus and acellular pertussis (DTaP) vaccination TDAP (ADULT) [facility] Start: 1968 Adult BMI Follow Up Plan Adult BMI F ollow Up Plan [facility] Start: 1968 Tetanus vaccination TET[facility] Start: 1950 Hepatitis C antibody , confirmatory test HEPATITIS C VIRUS SCREENING [facility] Start: 1950 Hepatitis C screening HEPATITI S C VIRUS SCREENING [facility] Start: 1950 Medicare Annual Well ness Visit Medicare Annual Wellness Visit [facility] Start: 1950 Screening for osteoporosis DEXA SCAN DISCUSSION [facility] Start: 1950 Thyroid stimulating hormone measurement TSH [facility] Immunizations Immunization Date Immunization Notes Care Provider Heron eduardo 07-07-2023 zoster vaccine, unspecified formulation Chelsea Acevedo [facility] 08-05-2021 influenza virus vaccine, unspecified formulation Apolinar Henry MD Work Phone: [facility] Payers Date Payer Category Payer [employer] ( [employer] others) [id number] 2022 [employer] ( [employer] others) [id number] .19 2022 Self-pay 2021 [employer] ( [employer] others) [id number] 2021 [employer] ( and others) [id number]. 3.6786 71.315 2021 Unknown 2020 Medicare [id number] 71.315 2019 Unknown [id number] 2017 Medicare [id number] 2016 [employer] ( and others) [id number] 1959 [employer] ( and others) [id number] 1959 Medicare [id number] 1950 Unknown [id number] 2.16.840.1.618768.3.579.2.647 1950 Unknown [id number] 2.16.840.1.742364.3.579.2.983 1950 Unknown [id number] 2.16.840.1.139294.3.579.2.983 1950 Unknown [id number] 2.16.840.1.887150.3.579.2.983 1950 Unknown [id number] 2.16.840.1.494637.3.579.2.983 1950 Unknown [id number] 2.16.840.1.531958.3.579.2.983 1950 Unknown [id number] 2.16.840.1.033476.3.579.2.983 1950 Unknown [id number] 2.16.840.1.217483.3.579.2.983 1950 Unknown [id number] 2.16.840.1.286076.3.579.2.983 1950 Unknown [id number] 2.16.840.1.060184.3.579.2.983 1950 Unknown [id number] 2.16.840.1.775714.3.579.2.983 1950 Unknown [id number] 2.16.840.1.497031.3.579.2.983 1950 Unknown [id number] 2.16.840.1.837763.3.579.2.983 1950 Unknown [id number] 2.16.840.1.432519.3.579.2.983 1950 Unknown [id number] 2.16.840.1.669376.3.579.2.983 1950 Unknown [id number] 2.16.840.1.388769.3.579.2.983 1950 Unknown [id number] 2.16.840.1.586100.3.579.2.983 1950 Unknown [id number] 2.16.840.1.927493.3.579.2.983 1950 Unknown [id number] 2.16.840.1.786188.3.579.2.983 1950 Unknown [id number] 2.16.840.1.657808.3.579.2.593 1950 Unknown [id number] 2.16.840.1.406843.3.579.2.593 1950 Unknown [id number] 2.16.840.1.739813.3.579.2.593 1950 Unknown [id number] 2.16.840.1.370659.3.579.2.593 1950 Unknown [id number] 2.16.840.1.180131.3.579.2.593 1950 Unknown [id number] 2.16.840.1.321079.3.579.2.593 1950 Unknown [id number] 2.16.840.1.912541.3.579.2.593 1950 Unknown [id number] 2.16.840.1.051808.3.579.2.593 1950 Unknown [id number] 2.16.840.1.837794.3.579.2.593 1950 Unknown [id number] 2.16.840.1.996252.3.579.2.196 1950 Unknown [id number] 2.16.840.1.556588.3.579.2.196 1950 Unknown [id number] 2.16.840.1.169402.3.579.2.196 1950 Unknown [id number] 2.16.840.1.127686.3.579.2.196 1950 Unknown [id number] 2.16.840.1.415624.3.579.2.196 1950 Unknown [id number] 2.16.840.1.089372.3.579.2.196 1950 Unknown [id number] 2.16.840.1.412848.3.579.2.196 1950 Unknown [id number] 2.16.840.1.281594.3.579.2.196 1950 Unknown [id number] 2.16.840.1.186354.3.579.2.196 1950 Unknown [id number] 2.16.840.1.173854.3.579.2.196 1950 Unknown [id number] 2.16.840.1.291355.3.579.2.196 1950 Unknown [id number] 2.16.840.1.056387.3.579.2.196 1950 Unknown [id number] 2.16.840.1.801593.3.579.2.196 1950 Unknown [id number] 2.16.840.1.485989.3.579.2.196 1950 Unknown [id number] 2.16.840.1.845047.3.579.2.196 1950 Unknown [id number] 2.16.840.1.574950.3.579.2.196 1950 Unknown [id number] 2.16.840.1.494040.3.579.2.196 1950 Unknown [id number] 2.16.840.1.209254.3.579.2.196 1950 Unknown [id number] 2.16.840.1.682434.3.579.2.1286 1950 Unknown [id number] 2.16840.1.349265.3.579.2.1286 1950 Unknown [id number] 2.16.840.1.990324.3.579.2.1259 1948 Unknown [id number] 2.16840.1.155620.3.579.2.196 [facility] others) [id number] 2.16840.1.260000 .19 Medicare [id number] Private Health Insurance [id number] Unknown [id number] 2.16840.1.304129.3.579.2.283 Unknown [id number] 2.16840.1.853322.3.579.2.462 Unknown [id number] 2.16.840.1.550359.3.579.2.462 Unknown [id number] 2.16.840.1.930646.3.579.2.462 Unknown [id number] 2.16.840.1.146469.3.579.2.531 Social History Date Type Detail Facility Start: 05-20-2022 End: 01-06-2023 Tobacco smoking status NHIS Never smoked tobacco [facility] Start: 05-20-2022 End: 01-06-2023 Tobacco use and exposure Smokeless tobacco non-user [facility] Start: 05-20-2022 Alcohol intake Ex-drinker (finding) [facility] Start: 1950 Sex Assigned At Not on file A [facility] Start: 06-16-2022 End: 08-18-2023 Alcohol intake Current drinker of alcohol (finding) [facility] Start: 06-16-2022 History SDOH Alcohol Comment SELDOM [facility] Start: 06-29-2022 End: 07-09-2022 Exposure to SARS-CoV-2 (event) Not sure [facility] Start: 10-24-2020 End: 08-18-2023 Sex Assigned At [facility] Start: 05-05-2023 End: 06-30-2023 Tobacco smoking status NHIS Unknown if ever [facility] Start: 1950 Sex Assigned At Female [facility] Start: 10-24-2020 End: 08-18-2023 History of Social function [facility] Adolescent depressio n screening assessment 1 [facility] Medical Equipment Procedure Code Equipment Code Equipment Origin al Text Equipment Identifier Dates [employer] [facility] Breast Implant [id number] Start: 07-09-2022 Clinical Notes 01-13-2022 to 11-25-2023 Telephone Encounter - Chelsea Acevedo - 11/25/2023 3:52 PM EDTTelephone Encounter - Suzanna Cuadra RN - 11/25/2023 3:52 PM EDTTelephone Encounter - Ramakrishna López MD - 11/25/2023 3:52 PM EDT Note Date & Type Note Facility 11-25-2023 Miscellaneous Notes Patient called in asking to discuss results of EEG and MRI that were completed on 11/18/23. Patient is also asking is results could be forwarded to her PCP's office. Fax number [phone] Please review and advise on next steps. MRI shows non specific ischemic changes EEG is normal Patient informed of results and voiced understanding. Results faxed as requested to Dr. Villagran at provided #. [facility] 11-25-2023 Telephone encounter Note Patient called in asking to discuss results of EEG and MRI that were completed on 11/18/23. Patient is also asking is results could be forwarded to her PCP's office. Fax number [phone] [facility] [facility] 11-25-2023 Telephone encounter Note Please review and advise on next steps. [facility]23 Telephone encounter Note MRI shows non specific ischemic changes [facility]: 11-25-2023 Telephone encounter Note Patient informed of results and voiced understanding. Results faxed as requested to Dr. Villagran at provided #. [facility] 10-11-2023 Note Chief Complaint Chief Complaint Patient [...] breast cancer History of colonoscopy with polypectomy IA (myocardial infarction) (2013) Morbid obesity with body [...] Maintenance Colonoscopy 04/20/2019 (more content not included)... 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 Comparison is made to exams dated: 04/06/2022 mammogram and 03/13/2021 mammogram - [facility]. The tissue of left breast is heterogeneously [...] may not be detected on mammograms. [employer] supports annual screening mammography starting at age 40. Carol frye/mello:06/02/2023 09:27:52 Branch Service Leader(s): RT Delmer(R)(M), [facility] letter sent: New Mammo Normal B1/2 Mammogram BI-RADS: 2 Benign Final Dictated by: aCrol Tran DO Signed by: Carol Tran DO Signed (Electronic Signature): 06/02/2023 9:27 am (If Report Is Signed, Electronically Signed in Other Vendor System)[address]19-2023 NoteChief Complaint Patient presents for evaluation of left inguinal bulge. History of Present Illness 73 year old female, patient of Dr. Villagran ([place], [place]) Patient presents with a palpable bulge in the left groin area. This has been ongoing for a long time. Patient reports worsening pain. Specific triggers include: none. Notes constipation. States that bowels move approximately once a week. Reports that bulge is not reducible. An ultrasound was obtained 05/07/2023, at [facility]. She has history of myocardial infarction, that occurred in 2013during a surgery. Review of Systems Constitutional: No fevers, chills, sweats, weight loss or weight gain Respiratory: No shortness of breath, cough Cardiovascular: +CAD, h/o IA Gastrointestinal: +See HPI Liver: No jaundice, hepatitis [...] hyperplastic & tubular adenomas (04/2019) COVID-19 (09/2021) IA (myocardial infarction) (2013) Morbid obesity with body [...] Winn 05/25/2023 15:28 EDT Electronically signed by Emley Zendejas PA-C 06/02/2023 09:41 [facility] 05-27-2023 Evaluation note* Encounter Date Diagnosis Assessment [...] to 30 g/day -NEW: increase protein foods [facility] Other 09-07-2023 NotePatient Education Materials Name: Berenice Noalsco Current Date: 05/20/2023 13:09:49 [place] : 1950 The following sheet(s) are the [...] right away to prevent serious problems. ? [id number] [employer]. [address] [place] [address]27. All rights reserved. This information is not intended as a substitute for professional medical care. Always follow your healthcare professional's instructions.[facility]07-03-2023 Evaluation note* Encounter Date Diagnosis Assessment [...] Encounter for weight management (ICD-10 - Z76.89) [facility] Other 03-08-2023 History of Present illness Narrative* Raphael Majano, JEREMY - 11/18/2022 2:30 PM EST General Plastics [...] the decision is whether to leave the jewel staker and removal Of the port were to [...] IN 2017 Malignant neoplasm of female breast IA (myocardial infarction) with knee scope PVD (peripheral vascular disease) Past Surgical History: Procedure Laterality Date RECONSTRUCTION BREAST TISSUE FUEL TECHNICIAN INCLUDING SUBSEQUENT EXPANDERS Right 07/09/2022 Laterality: Right; Surgeon: Apolinar Henry MD; Location: [facility] IMPLANTATION BIOLOGIC IMPLANT FOR SOFT TISSUE REINFORCEMENT ADD-ON PX Right 07/09/2022 RT BREAST RECONSTRUCTION W/ PLACEMENT TISSUE FUEL TECHNICIAN & ADM/ 150 CC FILL MASTECTOMY Right 1992 BLADDER REPAIR HYSTERECTOMY KNEE SURGERY Bilateral 2017 AND HAD IA DURING SURGERY ORAL SURGERY REMOVAL CATARACT (PEM) [...] kg/m Smoking Status Never The patient's right jewel staker is in good position. The overlying tissue [...] this year documented in this [facility]02-08-2023 History of Present illness Narrative* [...] IN 2017 Malignant neoplasm of female breast IA (myocardial infarction) with knee scope PVD (peripheral vascular disease) Past Surgical History: Procedure Laterality Date RECONSTRUCTION BREAST TISSUE FUEL TECHNICIAN INCLUDING SUBSEQUENT EXPANDERS Right 07/09/2022 Laterality: Right; Surgeon: Apolinar Henry MD; Location: [facility] IMPLANTATION BIOLOGIC IMPLANT FOR SOFT TISSUE REINFORCEMENT ADD-ON PX Right 07/09/2022 RT BREAST RECONSTRUCTION W/ PLACEMENT TISSUE FUEL TECHNICIAN & ADM/ 150 CC FILL MASTECTOMY Right 1993 BLADDER REPAIR HYSTERECTOMY KNEE SURGERY Bilateral 2016 AND HAD IA DURING SURGERY ORAL SURGERY REMOVAL CATARACT (PEM) [...] Status Never Patient with right breast tissue jewel staker. She has left breast ptosis and hypertrophy. The port is in satisfactory position. The patient has many questions and is undecided regarding further reconstructive plans. She is interested in matching the left breast however this breast is ptotic and larger. I indicated its more difficult to reconstruct a breast that looks identical to that side. Tank Setter Helper is at its maximal volume of 390 mL for which it could be As a permanent implant. Discussed with the patient that we could consider reassessment in a month to allow the tissue on the right side to relax. After that time we can review the options which may include leaving the jewel staker in place or overexpansion with eventual plans for replacement with a permanent implant. I have reviewed massage of the implant to help soften the pocket. Assessment: Ongoing right breast reconstruction Plan: Pt to RETURN in 1 month FOR RECHECK. They are encouraged to call in the interim with any problems or questions relating to this encounter. [facility] History of Present illness Narrative* Lena Baker [...] evaluation of continued filling of her tissue jewel staker. She states she had pain following the [...] IN 2017 Malignant neoplasm of female breast IA (myocardial infarction) with knee scope PVD (peripheral vascular disease) Past Surgical History: Procedure Laterality Date RECONSTRUCTION BREAST TISSUE FUEL TECHNICIAN INCLUDING SUBSEQUENT EXPANDERS Right 07/09/2022 Laterality: Right; Surgeon: Apolinar Henry MD; Location: [facility] IMPLANTATION BIOLOGIC IMPLANT FOR SOFT TISSUE REINFORCEMENT ADD-ON PX Right 07/09/2022 RT BREAST RECONSTRUCTION W/ PLACEMENT TISSUE FUEL TECHNICIAN & ADM/ 150 CC FILL MASTECTOMY Right 1993 BLADDER REPAIR HYSTERECTOMY KNEE SURGERY Bilateral 2017 AND HAD IA DURING SURGERY ORAL SURGERY REMOVAL CATARACT (PEM) [...] expansion for 3 months before removing the jewel staker and placement of the permanent implant. She presently has 330 mL in and we will put 60 mL in for her to assess the size. The pts Tissue Tank Setter Helper was Filled with 60 cc's of Injectable Saline (unilaterally) after prepping the skin with alcohol. She tolerated the procedure well. She is to follow up in 2 Weeks for evaluation and possible further expansion. Assessment: Ongoing right breast reconstruction with continued filling of her tissue jewel staker Plan: Pt to RETURN in 2 weeks FOR RECHECK. They are encouraged to call in the interim with any problems or questions relating to this encounter. documented in this [facility]01-[facility]-2023 History of Present illness Narrative* Ameena Jackson [...] IN 2017 Malignant neoplasm of female breast IA (myocardial infarction) with knee scope PVD (peripheral vascular disease) Past Surgical History: Procedure Laterality Date RECONSTRUCTION BREAST TISSUE FUEL TECHNICIAN INCLUDING SUBSEQUENT EXPANDERS Right 07/09/2022 Laterality: Right; Surgeon: Apolinar Henry MD; Location: [facility] IMPLANTATION BIOLOGIC IMPLANT FOR SOFT TISSUE REINFORCEMENT ADD-ON PX Right 07/09/2022 RT BREAST RECONSTRUCTION W/ PLACEMENT TISSUE FUEL TECHNICIAN & ADM/ 150 CC FILL MASTECTOMY Right 1992 BLADDER REPAIR HYSTERECTOMY KNEE SURGERY Bilateral 2016 AND HAD IA DURING SURGERY ORAL SURGERY REMOVAL CATARACT (PEM) [...] side which is nontender. The pts Tissue Tank Setter Helper was Filled with The 75 cc's of [...] relating to this encounter. documented in this [facility]11-30-2022 History of Present illness Narrative* Ameena Jackson [...] IN 2017 Malignant neoplasm of female breast IA (myocardial infarction) with knee scope Past Surgical History: Procedure Laterality Date RECONSTRUCTION BREAST TISSUE FUEL TECHNICIAN INCLUDING SUBSEQUENT EXPANDERS Right 07/09/2022 Laterality: Right; Surgeon: Apolinar Henry MD; Location: [facility] IMPLANTATION BIOLOGIC IMPLANT FOR SOFT TISSUE REINFORCEMENT ADD-ON PX Right 07/09/2022 RT BREAST RECONSTRUCTION W/ PLACEMENT TISSUE FUEL TECHNICIAN & ADM/ 150 CC FILL MASTECTOMY Right 1992 BLADDER REPAIR HYSTERECTOMY KNEE SURGERY Bilateral 2016 AND HAD IA DURING SURGERY ORAL SURGERY REMOVAL CATARACT (PEM) [...] There is no discoloration. The pts Tissue Tank Setter Helper was Filled with 35 cc's of Injectable Saline (bilaterally/unilaterally) after prepping the skin with alcohol. She tolerated the procedure well. She is to follow up in 2 Weeks for evaluation and further expansion. Assessment: Acquired absence right breast. Patient for expansion of tissue jewel staker Plan: Pt to RETURN in 2 weeks FOR RECHECK. They are encouraged to call in the interim with any problems or questions relating to this encounter. documented in this [facility]11-23-2022 History of Present illness Narrative* Ameena Jackson [...] IN 2017 Malignant neoplasm of female breast IA (myocardial infarction) with knee scope Past Surgical History: Procedure Laterality Date RECONSTRUCTION BREAST TISSUE FUEL TECHNICIAN INCLUDING SUBSEQUENT EXPANDERS Right 07/09/2022 Laterality: Right; Surgeon: Apolinar Henry MD; Location: [facility] IMPLANTATION BIOLOGIC IMPLANT FOR SOFT TISSUE REINFORCEMENT ADD-ON PX Right 07/09/2022 RT BREAST RECONSTRUCTION W/ PLACEMENT TISSUE FUEL TECHNICIAN & ADM/ 150 CC FILL MASTECTOMY Right 1993 BLADDER REPAIR HYSTERECTOMY KNEE SURGERY Bilateral 2017 AND HAD IA DURING SURGERY ORAL SURGERY REMOVAL CATARACT (PEM) [...] relating to this encounter. documented in this [facility]11-09-2022 History of Present illness Narrative* Ameena Jackson [...] IN 2017 Malignant neoplasm of female breast IA (myocardial infarction) with knee scope Past Surgical History: Procedure Laterality Date RECONSTRUCTION BREAST TISSUE FUEL TECHNICIAN INCLUDING SUBSEQUENT EXPANDERS Right 07/09/2022 Laterality: Right; Surgeon: Apolinar Henry MD; Location: [facility] IMPLANTATION BIOLOGIC IMPLANT FOR SOFT TISSUE REINFORCEMENT ADD-ON PX Right 07/09/2022 RT BREAST RECONSTRUCTION W/ PLACEMENT TISSUE FUEL TECHNICIAN & ADM/ 150 CC FILL MASTECTOMY Right 1992 BLADDER REPAIR HYSTERECTOMY KNEE SURGERY Bilateral 2017 AND HAD IA DURING SURGERY ORAL SURGERY REMOVAL CATARACT (PEM) [...] right breast reconstruction with placement of tissue jewel staker Plan: Pt to RETURN in 2 weeks FOR RECHECK. They are encouraged to call in the interim with any problems or questions relating to this encounter. documented in this [facility]11-02-2022 History of Present illness Narrative* Ameena Jackson [...] for evaluation of Right breast reconstruction with jewel staker on 07/09/22. She complains of soreness, 7/10 [...] IN 2017 Malignant neoplasm of female breast IA (myocardial infarction) with knee scope Past Surgical History: Procedure Laterality Date RECONSTRUCTION BREAST TISSUE FUEL TECHNICIAN INCLUDING SUBSEQUENT EXPANDERS Right 07/09/2022 Laterality: Right; Surgeon: Apolinar Henry MD; Location: [facility] IMPLANTATION BIOLOGIC IMPLANT FOR SOFT TISSUE REINFORCEMENT ADD-ON PX Right 07/09/2022 Laterality: Right; Surgeon: Apolinar Henry MD; Location: [facility] MASTECTOMY Right 1992 BLADDER REPAIR HYSTERECTOMY KNEE SURGERY Bilateral 2016 AND HAD IA DURING SURGERY ORAL SURGERY REMOVAL CATARACT (PEM) [...] breast reconstruction with placement of a tissue jewel staker Plan: Pt to RETURN in 1 week FOR RECHECK. They are encouraged to call in the interim with any problems or questions relating to this encounter. documented in this encounterK[facility]10-27-2022 Nurse Surgical operation note* Deanna Jimenez RN [...] Les. Encouraged to use CPAP at home. [facility] Nurse Note* Deanna Jimenez RN - 07/09/2022 [...] and Nuno hahn CRNA. Report given to alphnose DIAZ upon arrival. Patient connected to Monitors. documented in this [facility]10-27-2022 Nurse Surgical operation note* Alphonse [...] pain, VSS, resp even and unlabored. . [facility] Discharge instructions* Discharge Instructions* Apolinar Henry [...] Care Everywhere. * Incentive Spirometer: General Info (Ivorian) documented in this encounterKettering Health10-27-2022 Note* Brief Op Note - Apolinar Henry MD - 07/09/2022 2:34 PM EDT POST OPERATIVE/PROCEDURE NOTE Berenice Nolasco ([id number]) SURGEON Surgeon(s) and Role: * Apolinar Henry MD - Primary DIRECTOR CRITICAL CARE ASBESTOS CLOTH INSPECTOR ANESTHESIOLOGIST MATERIAL ASSISTANT: Real Hahn APRN-MATERIAL ASSISTANT SURGICAL STAFF Regulatory Affairs Spec: Marleni Swartz RN; Joanna Flores RN Monitoring Nurse: Linsey Reyes RN Registered Nurse Clinical Research Analyst: Cady Vasquez RN Scrub Person: Laisha An LPN Manager Commercial: Janet Feldman PROCEDURE PERFORMED Right breast reconstruction with placement of tissue jewel staker ([id number]) 150cc initial fill PRIMARY CLOSURE Yes [...] Henry MD July 09, 2022 2:34 PM [facility]10-27-20[facility] Miscellaneous Notes* Brief Op Note - Apolinar Henry MD - 07/09/2022 2:34 PM EDT POST OPERATIVE/PROCEDURE NOTE Berenice Nolasco ([id number]) SURGEON Surgeon(s) and Role: * Apolinar Henry MD - Primary DIRECTOR CRITICAL CARE YEYO ANESTHESIOLOGIST MATERIAL ASSISTANT: Real Hahn APRN-MATERIAL ASSISTANT SURGICAL STAFF Regulatory Affairs Spec: Marleni Swartz RN; Joanna Flores RN Monitoring Nurse: Linsey Reyes RN Registered Nurse Clinical Research Analyst: Cady Vasquez RN Scrub Person: Laisha An LPN Manager Commercial: Janet Feldman PROCEDURE PERFORMED Right breast reconstruction with placement of tissue jewel staker ([id number]) 150cc initial fill PRIMARY CLOSURE Yes [...] 09, 2022 2:34 PM documented in this encounterKet[facility] Health10-27-2022 Nurse Surgical operation note* Joanna Flores RN - 07/09/2022 12:24 PM EDT OR room temp 68f Humidity 305 Firescore 2 Prep dry prior to draping. Procedure completed. Dressings applied. Patient transported to PACU by holly segovia RN and Nuno hahn CRNA. Report given to alphonse DIAZ upon arrival. Patient connected to Monitors. [facility]10-27-[facility] History and physical note* Apolinar Henry MD - 07/09/2022 10:58 AM EDT I have examined the patient and reviewed the previous H&P completed on date 06/24/22 and there are no changes. See paper H&P in chart Apolinar Henry MD, 07/09/2022, 10:59 AM. [facility] History and physical note* Apolinar Henry MD - 07/09/2022 10:58 AM EDT I have examined the patient and reviewed the previous H&P completed on date 06/24/22 and there are no changes. See paper H&P in chart Apolinar Henry MD, 07/09/2022, 10:59 AM. documented in this encounterKet[facility]10-18-2022 History of Present illness Narrative* Ameena Jackson [...] IN 2017 Malignant neoplasm of female breast IA (myocardial infarction) with knee scope Past Surgical History: Procedure Laterality Date MASTECTOMY Right 1992 BLADDER REPAIR HYSTERECTOMY KNEE SURGERY Bilateral 2017 AND HAD IA DURING SURGERY ORAL SURGERY REMOVAL CATARACT (PEM) [...] procedure of Right breast reconstruction with tissue jewel staker Was thoroughly reviewed with the patient. The [...] right breast reconstruction with placement of tissue jewel staker Plan: We will proceed with surgery in the near future and the patient will call with any further questions. I spent 50 minutes total time with the patient. documented in this [facility]10-04-2022 History of Present illness Narrative* [...] We discussed direct to implant versus tissue jewel staker and decided on tissue jewel staker to allow flexibility in choosing her size. She understands in a second surgery would be required to either remove the port or replace the implant. I measured her for an implant today which will be a tissue jewel staker--smooth round spectrum [id number] an approximately 12 cm diameter The procedure of Right breast reconstruction with tissue jewel staker was thoroughly reviewed with the patient. The [...] for further preoperative preparation documented in this encounterK[facility]09-07-2022 History of Present illness Narrative* Ameena Jackson [...] types of reconstructions described included: 1) Tissue jewel staker and implant based reconstruction, both single and [...] after considering the options documented in this encounterK[facility]05-03-2022 NotePROCEDURE: XR HIPS CHARLIE 5V W PELVIS [...] authenticated by: TY BOUDREAUX Date: 2022-01-13 17:45[facility]* Diagnosis Personal history of malignant neoplasm of breast- Primary 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 absence of breast and nipple [facility]* Diagnosis Personal history of malignant neoplasm of breast- Primary 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 absence of breast and nipple 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 absence of breast and nipple [facility]* Diagnosis S/P breast reconstruction- Primary Breast replaced by other means 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 absence of breast and nipple Personal history of malignant neoplasm of breast 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 absence of breast and nipple [facility]* Diagnosis Acquired absence of right breast- Primary Acquired absence of right breast Personal history of malignant neoplasm of breast Personal history of malignant neoplasm of breast [facility]* Diagnosis Acquired absence of right breast and nipple- Primary Acquired absence of breast and nipple Personal history of malignant neoplasm of breast S/P breast reconstruction Breast replaced by other means [facility]* Diagnosis Acquired absence of right breast and nipple- Primary Acquired absence of breast and nipple S/P breast reconstruction Breast replaced by other means [facility]* Diagnosis S/P breast reconstruction- Primary Breast replaced by other means [facility]* Diagnosis S/P breast reconstruction- Primary Breast replaced by other means 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 absence of breast and nipple documented in this encounter [facility]Evaluation [facility]* Diagnosis Right-sided chest pain documented in this [facility]* Diagnosis Acquired absence of right breast and nipple- Primary Acquired absence of breast and nipple S/P breast reconstruction Breast replaced by other means documented in this encounter [facility]* Diagnosis Acquired absence of right breast and nipple- Primary Acquired absence of breast and nipple S/P breast reconstruction Breast replaced by other means documented in this encounter [facility] noteNo InformationNort [employer] Other Evaluation noteNo assessment information available [facility] Work Phone: Evaluation note* Diagnosis Onset Date Resolution Status Breast asymmetry between donavan vera breast and reconstructed breast acute Breast hypertrophy acute History of cancer of right breast acute [facility] Work Phone: Evaluation note* Diagnosis Onset Date Resolution Status BMI 32.0-32.9,adult acute Depression acute GERD (gastroesophageal reflux disease) acute Hyperlipidemia acute Hypothyroid acute Obesity acute NARA on CPAP acute [facility] Work Phone: Hisnzcq general Narrative - Reported* Type Description Date [...] side breast tissue expand er Surgical History Dexter teeth Surgical History 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 Surgical History Heart cath Surgical History Dental implant Hospitalization History See above [facility] Other Hissxdz general Narrative - Reported* Type Description Date [...] side breast tissue expand er Surgical History Dexter teeth Surgical History 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 Surgical History Heart cath Surgical History Dental implant Surgical History Inguinal hernia repair Surgical History Steroid injections in back Hospitalization History See above [facility] Other InstructionsNot on filedocumented in this encounter [facility] [employer] [facility] Narrative* Auth/Cert Specialty Diagnoses / Procedures Referred By Contac t Referred To Contact Diagnoses 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 Personal history of malignant neoplasm of breast [Z85.3] 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] Procedures MS TISSUE FUEL TECHNICIAN PLACEMENT BREAST RECONSTRUCTION MS IMPLNT BIO IMPLNT FOR SOFT TISSUE REINFORCEMENT RECONSTRUCTION BREAST TISSUE FUEL TECHNICIAN INCLUDING SUBSEQUENT EXPANDERS IMPLANTATION BIOLOGIC IMPLANT FOR SOFT TISSUE REINFORCEMENT ADD-ON PX Apolinar Henry MD [address] [place] [address] Referral ID Status Reason Start Date Expiration Date Visits Re quested Visits Authorized [id number] 06/10/2022 1 1 [facility] Summary Purpose Family History No Family History Records Found Relationship Condition Age at Onset Recorded Date/T amber mother Cardiac disease Unknown father Cardiac disease Unknown Relationship Condition Age at Onset Recorded Date/T amber father Congestive heart failure Unknown Unknown History of stroke Unknown Heart disease Unknown Diabetes mellitus Unknown Not Specified Family history of mental disorder Unknow n Vascular dementia Unknown Advance Directives No Advanced Directives Records Found Advance Directive Response Recorded Date/ Time Advance Directives No October 03, 2023 8:42am Chief Complaint and Reason for Visit Chief Complaint Consult Chief Complaint Consult preop #1 left breast red/ right jewel staker port Reason for Visit Breast asymmetry bet [place] breast and reconstructed breast Breast hypertrophy History of cancer of right breast Chief Complaint Wmn F/U Obesity 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 Reason for Visit BMI 32.0-32.9,adult Depression GERD (gastroesophageal reflux disease) Hyperlipidemia Hypothyroid Obesity NARA on CPAP Additional Source Comments INFORMATION SOURCE (unrecogn ized section and content) DATE CREATED AUTHOR 03/07/2018 Cecil Nava [facility] DATE CREATED AUTHOR AUTHOR'S ORGANIZ ATION 08/23/2018 [facility] DATE CREATED AUTHOR AUTHOR'S ORGANIZ ATION 09/01/2018 [facility] DATE CREATED AUTHOR AUTHOR'S ORGANIZ ATION 12/11/2020 [facility] DATE CREATED AUTHOR AUTHOR'S ORGANIZ ATION 07/10/2022 [facility] DATE CREATED AUTHOR AUTHOR'S ORGANIZ ATION 11/20/2022 [facility] DATE CREATED AUTHOR AUTHOR'S ORGANIZ ATION 12/25/2022 [facility] DATE CREATED AUTHOR AUTHOR'S ORGANIZ ATION 07/27/2023 [facility] DATE CREATED AUTHOR AUTHOR'S ORGANIZ ATION 10/22/2023 [facility] DATE CREATED AUTHOR AUTHOR'S ORGANIZ ATION 11/19/2023 [facility] DATE CREATED AUTHOR AUTHOR'S ORGANIZ ATION 11/22/2023 [facility] DATE CREATED AUTHOR AUTHOR'S ORGANIZ ATION 11/30/2023 [facility] EPIC Reason for Visit (unrecogniz ed section and [...] Op Visit Right breast reconst ruction with jewel staker on 07/09/22. She complains of soreness, 7/10 [...] Reason Comments Establish Care One month recheck Reason Onset Date Comments Results 11/25/2023 Care Teams (unrecognized sec tion and content) Certified Control Systems Technician Relationship Specialty Start Date End Date Shaikh Kerry Villagran MD [address] [place] [phone] PCP - General Internal Medicine 05/20/22 Certified Control Systems Technician Relationship Specialty Start Date End Date Shaikh Kerry Villagran MD [address] [place] [phone] PCP - General Internal Medicine 05/20/22 Certified Control Systems Technician Relationship Specialty Start Date End Date Shaikh Kerry Villagran MD [address] [place] [address] PCP - General Internal Medicine 05/20/22 Certified Control Systems Technician Relationship Specialty Start Date End Date Shaikh Kerry Villagran MD [address] [place] [address] PCP - General Internal Medicine 05/20/22 Certified Control Systems Technician Relationship Specialty Start Date End Date Shaikh Kerry Villagran MD [address] [place] [phone] PCP - General Internal Medicine 05/20/22 Certified Control Systems Technician Relationship Specialty Start Date End Date Shaikh Kerry Villagran MD [address] [place] [address] PCP - General Internal Medicine 05/20/22 Team [...] November 01, 2023 End: November 01, 2023 Certified Control Systems Technician Relationship Specialty Start Date End Date Trino Montiel MD [address] [place] [address] PCP - General 04/28/13 Scheduled Active and Recently Administ ered Medications (unrecognized section and content) Medication Order 07/07/2022 07/08/2022 07/09/2022 clindamycin (CLEOCIN) 900 mg in normal saline 50 ml premix IVPB (COMPLETED) 900 mg, Intravenous, Administer over 30 Minutes, ONCE, 1 dose, On Carla 07/09/22 at 0845, Pre-op/Pre-Proc 1151 (Given - Provid er: Real Hahn APRN-MATERIAL ASSISTANT) Continuous Medication Order 07/07/2022 07/08/2022 07/09/2022 lactated [...] BE BASED ON THE PRIMARY CLINICAL RECORDS. [employer] [facility]. provides no warranty or guarantee of the accuracy or completeness of information in this document.
[2023-12-01 16:14] LABS: Bilirubin Urine NEGATIVE (NEGATIVE); Blood Urine MODERATE (NEGATIVE); Clarity Urine CLEAR (CLEAR); Color Urine LT. YELLOW (YELLOW); Glucose Urine UA NEGATIVE (NEGATIVE); Ketones Urine TRACE mg/dL (NEGATIVE); Leukocyte Esterase Urine MODERATE (NEGATIVE); Nitrite Urine POSITIVE (NEGATIVE); Protein Urine 100 mg/dL (NEG/TRACE); pH Urine 6.5 (5.0-9.0)
[2023-12-01 16:18] LABS: Basophils Percent Auto 0.4 % (0.2-2.0); Eosinophils Absolute Auto 0.1 10^3/uL (0.0-0.7); Eosinophils Percent Auto 0.9 % (0.9-7.0); Hematocrit 43.8 % (36.0-48.0); Immature Granulocytes Abs Auto 0.03 10^3/uL (0.00-0.03); Immature Granulocytes Pct Auto 0.4 % (0.0-0.5); Lymphocytes Absolute Auto 1.7 10^3/uL (1.2-3.8); Lymphocytes Percent Auto 21.7 % (20.5-60.0); Mean Corpuscular Hemoglobin 28.7 pg (26.7-34.0); Mean Corpuscular Volume 89.8 fL (81.0-99.0); Mean Platelet Volume 10.9 fL (9.5-13.5); Monocytes Absolute Auto 0.5 10^3/uL (0.3-0.8); Monocytes Percent Auto 5.6 % (1.7-12.0); Neutrophils Absolute Auto 5.7 10^3/uL (1.4-6.5); Platelet Count 172 10^3/uL (150-450); Red Blood Count 4.88 10^6/uL (4.20-5.40); Red Cell Distribution Width 13.5 % (11.0-15.0)
[2023-12-01 16:33] LABS: Urine Microscopic Indicated YES
[2023-12-01 16:40] LABS: Bacteria Urine SMALL #/HPF (NONE SEEN); Cast Seen? NONE SEEN #/LPF (NONE SEEN); Crystals Seen? None Seen #/HPF (None Seen); Mucus Urine TRACE (NONE SEEN); RBC Urine 20-50 #/HPF (0-2); Squamous Epithelial Cell Urine MANY #/LPF (NONE/RARE); Urine Culture Indicated YES; WBC Urine >100 #/HPF (NONE SEEN)
[2023-12-01 16:53] LABS: Alanine Aminotransferase 34 U/L (14-59); Albumin Globulin Ratio 1.2; Albumin Level 3.6 g/dL (3.4-5.0); Alkaline Phosphatase 144 U/L (46-116); Anion Gap 10.7; Aspartate Amino Transferase 23 U/L (15-37); BUN Creatinine Ratio 20.3; Bilirubin Total 0.6 mg/dL (0.2-1.0); Calcium 8.9 mg/dL (8.5-10.1); Carbon Dioxide 27.2 mmol/L (21.0-32.0); Chloride 103 mmol/L (98-107); Chol HDL Ratio 2.6; Cholesterol 135 mg/dL (<=200); Estimated GFR (African America >60 (>=60); Estimated GFR (Non-African Ame >60 (>=60); Globulin 3.1 g/dL; Glucose 92 mg/dL (74-106); HDL Cholesterol 51 mg/dL (40-60); LDL Cholesterol Calculated 62.6 mg/dL; Potassium 3.9 mmol/L (3.5-5.1); Sodium 137 mmol/L (136-145); Total Protein 6.7 g/dL (6.4-8.2); Triglycerides 107 mg/dL (<=150); VLDL CHOLESTEROL 21.4 mg/dL
== END 2023-12-01 15:06 | disposition home or self-care (01) ==
LOC: LAB 15:06
PROVIDERS: PCP Internal Medicine; Visit Provider Internal Medicine
DX: E03.9 Hypothyroidism, unspecified (principal); E78.5 Hyperlipidemia, unspecified; Z01.812 Encounter for preprocedural laboratory examination; R82.90 Unspecified abnormal findings in urine
CPT/HCPCS: 36415; 80053; 80061; 81001; 84443; 85025; 87086; 87150; 87186

== ENCOUNTER 2023-12-15 16:05 | Outpatient (RCR) | payer MEDICARE, OTHER, SELFPAY | END 2024-01-18 17:11 | disposition home or self-care (01) | LOC: PT 16:05 | PROVIDERS: PCP Internal Medicine; Visit Provider Nurse Practitioner | DX: M48.062 Spinal stenosis, lumbar region with neurogenic claudication (principal) | CPT/HCPCS: 97110; 97113; 97162 ==

== ENCOUNTER 2023-12-22 11:33 | Outpatient (OUT) | payer MEDICARE, OTHER, SELFPAY | END 2023-12-22 11:34 | disposition home or self-care (01) | LOC: SLEEP 11:33 | PROVIDERS: PCP Internal Medicine; Visit Provider Internal Medicine | DX: G47.33 Obstructive sleep apnea (adult) (pediatric) (principal) | CPT/HCPCS: 95806 ==

== ENCOUNTER 2024-01-06 11:14 | Outpatient (OUT) | payer MEDICARE, OTHER, SELFPAY ==
--- NOTE | 2024-01-06 | ECG_ITS ---
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
--- NOTE | 2024-01-06 11:42 | XR_ITS ---
The [address] [address] Patient Name: DELBERT SALAS MRN: [id number] date: 1950 Sex: F Assigned Patient Location: LAB Current Patient Location: LAB Accession/Order Number: [id number] Exam Date: 01/06/2024 11:55 Report Date: 01/06/2024 13:27 At the request of: SHAIKH GERALDO Procedure: XR chest 2V EXAM: XR chest 2V HISTORY: Preoperative Clearance Z01.818 COMPARISON: None. TECHNIQUE: PA and lateral views of the chest. FINDINGS: The cardiomediastinal silhouette is normal. No focal consolidation is identified. There is no pneumothorax. No pleural effusion is noted. The osseous structures are intact. XR/XR chest 2V IMPRESSION: No acute cardiopulmonary process. Suggestion of COPD. Electronically authenticated by: DIEUDONNE SCHAEFFER Date: 01/06/2024 13:27
[2024-01-06 12:01] LABS: Bilirubin Urine NEGATIVE (NEGATIVE); Blood Urine NEGATIVE (NEGATIVE); Clarity Urine CLEAR (CLEAR); Color Urine YELLOW (YELLOW); Glucose Urine UA NEGATIVE (NEGATIVE); Ketones Urine NEGATIVE (NEGATIVE); Leukocyte Esterase Urine TRACE (NEGATIVE); Nitrite Urine NEGATIVE (NEGATIVE); Protein Urine NEGATIVE (NEG/TRACE); Specific Gravity Urine 1.015 (1.005-1.025); Urobilinogen Urine 0.2 EU/dL (0.2-1.0)
[2024-01-06 15:34] LABS: Urine Microscopic Indicated YES
[2024-01-06 15:42] LABS: Bacteria Urine TRACE #/HPF (NONE SEEN); Mucus Urine NONE SEEN (NONE SEEN); RBC Urine NONE SEEN #/HPF (0-2)
[2024-01-06 15:43] LABS: Cast Seen? SEEN #/LPF (NONE SEEN); Crystals Seen? None Seen #/HPF (None Seen); Hyaline Casts Urine RARE; Squamous Epithelial Cell Urine MODERATE #/LPF (NONE/RARE)
== END 2024-01-06 11:15 | disposition home or self-care (01) ==
LOC: LAB 11:18
PROVIDERS: PCP Internal Medicine; Visit Provider Internal Medicine
DX: Z01.818 Encounter for other preprocedural examination (principal); Z87.440 Personal history of urinary (tract) infections
CPT/HCPCS: 71046; 81001; 93005

== ENCOUNTER 2024-01-26 18:25 | Emergency (ER) | payer MEDICARE, OTHER, SELFPAY ==
[2024-01-26 18:40] VITALS: BP 145/92; PULSE 63; TEMP 36.7; O2SAT 97; BMI 32.3
--- OUTSIDE RECORDS SUMMARY | 2024-01-26 18:47 | XMS_ITS | CCD ---
Author Organization [facility] Care Team Providers Care Piper Helper Name Role Phone NANCY MARTINEZ Unavailable Unavailable NANCY MARTINEZ Unavailable Unavailable [id number] UNKNOWN Unavailable Unavailable GRUPO BROUSSARD Unavailable Unavailable [place] Procedure Practitioner Unavailab ADAM Bernardo Surgeon Unavailable ADAM SKINNER Admitting Unavailable NADERER, TRINO Primary Care Unavailable OLIVIAR, TRINO Referring Unavailable ADAM SKINNER Attending Unavailable LASHA BAKER Surgeon Unavailable [place] Procedure Practitioner Unavailab le Shaikh Kerry Villagran MD Primary Care Provider Shaikh Kerry Villagran MD Primary Care Provider SHAIKH KERRY VILLAGRAN Primary Care Unavailab le GHAZOUL, APLOINAR Admitting Unavailable GHAZOUL, APOLINAR Attending Unavailable GHAZOUL, APOLINAR Referring Unavailable GHAZOUL, APOLINAR Attending Unavailable GHAZOUL, APOLINAR Referring Unavailable SHAIK VILLAGRANH KERRY Primary Care Unavailab le [facility] Primary Care Unavailab le SELF, SELF Referring Unavailable GHAZOUL, APOLINAR Attending Unavailable SHAIK VILLAGRANH KERRY Primary Care Unavailab le GHAZOUL, APOLINAR Referring Unavailable GHAZOUL, APOLINAR Attending Unavailable SHAIK VILLAGRANH KERRY Primary Care Unavailab le SELF, SELF Referring Unavailable GHAZOUL, APOLINAR Attending Unavailable [facility] Primary Care Unavailab le SELF, SELF Referring Unavailable GHAZOUL, APOLINAR Attending Unavailable TYSHAWN, [facility] Primary Care Unavailab le SELF, SELF Referring Unavailable GHAZOUL, APOLINAR Attending Unavailable FAWWAD, FREED HAMIZUL Primary Care Unavailab le SELF, SELF Referring Unavailable GHAZOUL, APOLINAR Attending Unavailable FAWWAD, [employer] Primary Care Unavailab le SELF, SELF Referring Unavailable GHAZOUL, APOLINAR Attending Unavailable FAWWAD, [employer] Primary Care Unavailab le SELF, SELF Referring Unavailable GHAZOUL, APOLINAR Attending Unavailable FAWWAD, [employer] Primary Care Unavailab le SELF, SELF Referring Unavailable GHAZOUL, APOLINAR Attending Unavailable FAWWAD, [employer] Primary Care Unavailab le SELF, SELF Referring Unavailable GHAZOUL, APOLINAR Attending Unavailable FAWWAD, [employer] Primary Care Unavailab le SELF, SELF Referring Unavailable GHAZOUL, APOLINAR Attending Unavailable FAWWAD, [employer] Primary Care Unavailab le SELF, SELF Referring Unavailable GHAZOUL, APOLINAR Attending Unavailable FAWWAD, [employer] Primary Care Unavailab le SELF, SELF Referring Unavailable GHAZOUL, APOLINAR Attending Unavailable FAWWAD, [employer] Primary Care Unavailab le FAWWAD, [facility] HAMIZUL Primary Care Unavailab le FAWWAD, [employer] Primary Care Unavailab le SELF, SELF Referring [...] Unavailable WEST, DR ADAM Castellanos Attending Unavailable [place], DR ADAM Castellanos Consulting Unavailable FAWWAD, FREED H Primary Care Unavailable KANIKA, DR TY Marquez Consulting Unavailable WEST, DR ADAM Castellanos Attending Unavailable WEST, DR ADAM Castellanos Admitting Unavailable FAWWAD, FREED H Primary Care Unavailable FAWWAD, FREED H Consulting Unavailable MARCELLUS, DR ADAM Castellanos Admitting Unavailable MARCELLUS, DR ADAM Castellanos Attending [...] Apolinar Henry Attending Provider Adriana Lyn Unavailable Tyshawn, Freed Primary Care Unavailable Susanne Jordan R Attending Unavailable Susanne Jordan R Admitting Unavailable RENO Jordan Attending Provider MD Dorothea Villgaran Primary Care Provider [phone] Yolette MUNSON, Kevin Workman Attending Ela Villagran MD, [facility], [facility] Primary [facility] Rocio Betancourt MD, Jovan Cagle Attending Rocio Villagran MD, [facility] Rocio Vazquez PA-C, Agnieszka Salcedo Attending Shruti Villagran MD, [facility] Primary [facility] Rocio Betancourt MD, Jovan Cagle Referring Rocio Field MD, Alycia Jerome Attending Gian Villagran MD, [facility] Rocio Betancourt MD, Jovan Cagle Attending Rocio Villagran MD, [facility] Rocio Betancourt MD, Jovan Cagle Attending oRcio Villagran MD, [facility] Rocio Betancourt MD, Jovan Cagle Attending Rocio Betancourt MD, Adam Cardenas Attending Unavailabl danny Villagran MD, [facility] Rocio Villagran MD, [facility] Rocio Betancourt MD, Jovan Cagle Attending Rocio Villagran MD, [facility] Rocio Betancourt MD, Jovan Cagle Attending Rocio Villagran MD, [facility] Rocio Dallas DO, Nancy Gonzalez Attending Shruti meghan Mack MD, Tammyrius Hernandez Attending Unavailable Tyshawn ADAMSON, [facility] Rocio Villagran MD, [facility] Rocio Mack MD, Tammyrius Hernandez Attending Unavailable Frederick ADAMSON, Andrius David Attending Unavailable Tyshawn ADAMSON, [facility] Rocio Mack MD, Tammyrius David Attending Unavailable Tyshawn ADAMSON, [facility] Rocio MUNSON, Kevin Workman Attending Shrutiv bethel Villagran MD, [facility] Rocio MUNSON, Kevin Workman Attending Shrutiv bethel Villagran MD, [facility] Rocio Villagran MD, [facility] Rocio MUNSON, Kevin Workman Attending Unav ailable RAMAKRISHNA LÓPEZ I Referring Unavailable TRINO MONTIEL Primary Care Unavailable RAMAKRISHNA LÓPEZ I Referring Unavailable TRINO MONTIEL Primary Care Unavailable Cyndie ADAMSON, Trino Primary Care Provider [phone] Dr. Apolinar Henry Attending Provider [phone] SHAIKH VILLAGRAN Attending Unavailable SHAIKH VILLAGRAN Attending Unavailable Dr. Dorothea Villagran Primary Care Provider [phone] Dr. Dorothea Villagran Referring Provider Dr. Apolinar Henry Other Provider [phone] Fawwanuno, Freed Primary Care Unavailable Fawwad, Freed Referring Unavailable Ghazoul, Apolinar Attending Unavailable Faaarti, Primary Care Unavailable Fawwanuno, Referring Unavailable Ghazoul, Apolinar Attending Unavailable Ghazoul, Apolinar Attending Unavailable Ghazoul, Apolinar Attending Unavailable Ghazoul, Apolinar Attending Unavailable Ghazoul, Apolinar Attending Unavailable Ghazoul, Apolinar Attending Unavailable Ghazoul, Apolinar Consulting Unavailable Ghazoul, Apolinar Attending Unavailable Fawhermelinda, Primary Care Unavailable Tyshawn, Freed Referring Unavailable Allergies Allergy Classification Reported Allergen(s) Allergy Type Date of Onset Reaction(s) Facility (2 sources) cortisone; Translations: [cortisone] Drug Allergy [facility] Repository (20 sources) Penicillins; Translations: [penicillins] Propensity to adverse reactions (disorder) 3 Itching [facility] Repository (1 source) sulfamethoxazole; Translations: [sulfamethoxazole ] Drug Allergy [facility] Repository (5 sources) Sulfonamides (Antibiotic) Drug allergy (disorder) 3 Itching [facility] Repository (15 sources) sulfaSALAzine; Translations: [SULFASALAZINE] Drug Allergy 7 Itching [facility] (13 sources) Sulfonamides (Antibiotic) Propensity to adverse reactions to drug 3 Itching [facility] (5 sources) Penicillin Drug Allergy Unknown [facility] Other (5 sources) Substance with sulfonamide structure and antibacterial mechanism of action (substance) Drug allergy Unknown [facility] Other (5 sources) Sulfonamides (Antibiotic) Allergy to substance 3 [facility] (2 sources) Sulfonamides (Antibiotic) Drug allergy (disorder) 3 [facility] Repository (1 source) Sulfonamides (Antibiotic); Translations: [sulfa drugs] Propensity to adverse reactions to drug (disorder) [facility] Repository Medications Current Medications Medication Drug [...] 28 January, Active Ascorbic Acid / Collagen (5 sources) Vitamin C Start: 05-05-2023 take 30-833.3 mg by mouth once daily Ascorbic Acid-Collagen (Collagen Skin Renewal) 30-833.3 mg tablet Active 1 TABLET PO DAILY May 05, 2023 12:00am ascorbic acid 125 mg / collagen, hydrolyzed 740 mg oral capsule (2 sources) Vitamin C Start: 10-29-2023 take 1 capsule by mouth once daily Ascorbic Acid-Collagen (Collagen Plus Vitamin C) 125-740 mg capsule Active 1 CAP PO Daily October 29, 2023 1:00am aspirin 81 mg delayed release oral tablet (19 sources) Platelet Aggregation Inhibitor, Nonsteroidal Anti-inflammatory Drug [...] mg / cholecalciferol 500 unt oral capsule (5 sources) Vitamin D Start: 05-05-2023 take 1 [...] by mouth once daily 0 03/11/2022 Active clindamycin 300 mg oral capsule (1 source) Lincosamide Antibacterial Start: 01-05-2024 take 300 mg by mouth every eight hours Clindamycin Hcl Active 300 MG PO Q8H January 05, 2024 12:00am Collagen (16 sources) Collagen 1000mg + Vitamin C qd Active COLLAGEN PO Take by mouth. 0 Active esomeprazole 40 mg oral tablet (18 sources) Proton Pump Inhibitor Start: 05-05-2023 take [...] Start: 05-05-2023 take 20 mg by mouth at bedtime Famotidine Active 20 MG PO AT BEDTIME May 05, 2023 12:00am 24 hr fesoterodine fumarate 8 mg extended release oral tablet (13 sources) Start: 05-05-2023 take 8 mg by [...] Seed Oil 12 00mg qd Active fumarate (2 sources) Start: 10-29-2023 take 1 tablet by stone th once daily Uvtjvbg-Zhpw0-Oeubejx Fumarate Active 1 TAB PO Daily October 29, 2023 1:00am Start: 10-29-2023 take 1 tablet by stone th once daily Dttrtoq-Nyuk7-Tuybnue Fumarate Active 1 TAB PO Daily October 29, 2023 12:00am furosemide 20 mg oral tablet (2 sources) Loop Diuretic Start: 11-01-2023 take 1 tablet by mouth once daily Furosemide (Lasix) 20 mg tablet Active 20 MG PO Daily November 01, 2023 1:00am ibuprofen 400 mg oral tablet (11 sources) Nonsteroidal Anti-inflammatory Drug take 1 tablet by mouth every six hours as needed ibuprofen 400 MG tablet Take 1 tablet by mouth every 6 hours as needed for Mild Pain. 0 Active L. Acidophilus/Bifid . Animalis (Daily Probiotic) 2.5 billion cell capsule (2 sources) Start: 10-29-2023 take 1 capsule by mouth once daily, then take 2.5 capsules by mouth once daily L. Acidophilus/Bifid . Animalis (Daily Probiotic) 2.5 billion cell capsule Active 1 CAP PO Daily October 29, 2023 1:00am Start: 10-29-2023 take 1 capsule by mo uth once daily, then take 2.5 capsules by mouth once daily L. Acidophilus/Bifid. Animalis (Daily Probiotic) 2.5 billion cell capsule Active 1 CAP PO Daily October 29, 2023 12:00am lactobacillus acidophilus 1.5 mg oral capsule (1 source) Start: 12-30-2023 Lactobacillus Acidophilus (Probiotic Acidophilus) 250 million cell capsule Active 500 MMU CELLS PO DAILY December 30, 2023 12:00am levothyroxine sodium 0.05 mg oral tablet (20 sources) l-Thyroxi ne Start: 10-16-2022 take 50 ug by mouth once daily Levothyroxine Active 50 MCG PO DAILY May 05, 2023 12:00am take 1 tablet by mouth once anai y Levothyroxine Sodium 50 MCG take 1 tablet by mouth once daily Oral for 90 Days Active linseed oil 1000 mg oral capsule (17 sources) Start: 12-30-2023 take 1000 mg by mouth once daily Flaxseed Oil Active 1000 MG PO DAILY December 30, 2023 12:00am Start: 10-29-2023 take 1000 mg by mout h once daily Flaxseed Oil Active 1000 MG PO Daily October 29, 2023 1:00am administer with a meal melatonin 10 mg oral tablet (16 sources) Start: 05-05-2023 take 10 mg by mouth at bedtime Melatonin Active 10 MG PO BEDTIME May 05, 2023 12:00am MELATONIN PO Delmar e by mouth daily. 0 Active Mkaaxegs-Jrj-Ta-Lycopen-Lute in (Complete Mv Adult 50 Plus) 0.4 mg-300 mcg- 250 mcg tablet (5 sources) Start: 05-05-2023 take 1 tablet by mouth once daily Rszljhbc-Evs-Rg-Lycopen-Lutein (Complete Mv Adult 50 Plus) 0.4 mg-300 mcg- 250 mcg tablet Active 1 TABLET PO DAILY May 05, 2023 12:00am Multivitamin preparation (7 sources) Start: 10-29-2023 take 1 tablet by mouth once daily Multivitamin Active 1 TAB PO Daily October 29, 2023 1:00am Start: 10-29-2023 take 1 tablet by stone th once daily Multivitamin Active 1 TAB PO Daily October 29, 2023 12:00am Multivitamin Act vera multivitamin tablet (11 sources) take 1 tablet by mouth once daily multivitamin tablet Take 1 tablet by mouth daily. 0 Active omeprazole 40 mg delayed release oral capsule (7 sources) Proton Pump Inhibitor Start: Omeprazole Active 40 MG PO Daily October 29, 2023 1:00am take 30 minutes before morning meal. take [...] mg/3 mL) pen injector polyethylene glycol 3350 58328 mg powder for oral solution (4 sources) Osmotic Laxative Start: 10-29-2023 Polyethylene Glycol 3350 (Miralax) 17 gram/dose powder Active 17 GM PO Daily October 29, 2023 1:00am MiraLax Active Probiotic (3 sources) Probiotic Active raNITIdine (1 source) Histamine-2 Receptor Antagonist RANITIDINE HCL (ZANT AC ORAL) Take by mouth. 0 Active Semaglutide (9 sources) Start: 11-03-2023 Semaglutide (Ozempic) 0.25 mg or 0.5 mg (2 mg/3 mL) pen injector Active 0.25 MG SUBCUT every week 4.784 90 November 03, 2023 9:55am Start: 11-03-2023 End: 11-03-2023 Semaglutide (Ozempic) 0.25 m g or 0.5 mg (2 mg/3 mL) pen injector Discontinued 0.5 MG SUBCUT every week November 03, 2023 9:54am November 03, 2023 9:57am Start: 10-29-2023 End: 11-03-2023 Semaglutide (Ozempic) 0.25 m g or 0.5 mg (2 mg/3 mL) pen injector Discontinued 0.25 MG SUBCUT every week October 29, 2023 1:00am November 03, 2023 9:54am Start: 10-29-2023 Semaglutide (O zempic) 0.25 mg or 0.5 mg (2 mg/3 mL) pen injector Active 0.25 MG SUBCUT every week October 29, 2023 12:00am Start: 05-05-2023 Semaglutide (O zempic) 0.25 mg or 0.5 mg (2 mg/3 mL) pen injector Active 0.25 MG SC TH May 05, 2023 12:00am Start: 05-05-2023 Semaglutide (O zempic) 0.25 mg or 0.5 mg (2 mg/3 mL) pen injector Active 0.25 MG SC EVERY WEEK May 05, 2023 12:00am simvastatin 20 mg oral tablet (20 sources) HMG-CoA Reductase Inhibitor Start: 09-01-2016 take 20 mg by mouth at bedtime Simvastatin Active 20 MG PO AT BEDTIME May 05, 2023 12:00am 24 hr trospium [...] / oxyCODONE hydrochloride 5 mg oral tablet (11 sources) Opioid Agonist Start: 01-05-2024 End: 01-08-2024 take 1 tablet by mouth three times daily Oxycodone-Acetamino phen (Percocet) 5-325 mg tablet Discontinued 1 TABLET PO THREE TIMES A DAY 03 15January 05, 2024 January 08, 2024 12:16am Start: 07-09-2022 End: 07-09-2022 take 1-2 tablets by mouth every four hours as needed oxyCODONE-acetaminophen (PERCOCET) 5-325 MG per tablet 1-2 tablet Start: 06-30-2022 End: 07-03-2022 take 1 tablet by mouth every six hours as needed for pain oxyCODONE-acetaminophen 5-325 MG per tablet Indications: S/P breast reconstruction Take 1 tablet by mouth every 6 hours as needed for Moderate Pain (Use ONLY as needed for pain) for up to 3 days. 10 tablet 0 06/30/2022 Active [id number] 200 actuat albuterol 0.09 mg/actuat metered dose [...] Cellulose (SURGICEL) topical pad polyethylene glycol 3350 [id number] mg / potassium chloride 2970 mg / sodium bicarbonate 6740 mg / sodium chloride 5860 mg / sodium sulfate 27873 mg powder for oral solution (1 source) [...] Onset: 11-03-2012 05-20-2022 Chronic Nonmalignant breast conditions (20 sources) Hypertrophy of breast; Translations: [Hypertrophy of breast] Onset: 01-21-2024 05-05-2023 Episodic Nonspecific chest pain (20 sources) [...] Chronic Other nutritional; endocrine; and metabolic disorders (7 sources) Body mass index 30+ - obesity; Translations: [Body mass index (BMI) 37.0-37.9, adult] 11-01-2023 Chronic Other nutritional; endocrine; and metabolic disorders (12 sources) Obesity; Translations: [Obesity, unspecified] 10-29-2023 Chronic Other nutritional; endocrine; and metabolic disorders (6 sources) Obesity, unspecified; Translations: [Obesity, unspecified] Chronic Other nutritional; endocrine; and metabolic disorders (2 sources) Body mass index (BMI) 34.0-34.9, adult Chronic Other nutritional; endocrine; and metabolic disorders (1 source) Obese class I; Translations: [Body mass index (BMI) 34.0-34.9, adult] Chronic Other nutritional; endocrine; and metabolic disorders (2 sources) Body mass index (BMI) 32.0-32.9, adult; Translations: [Body Mass Index 32.0-32.9, adult] 11-01-2023 Chronic Residual codes; unclassified (7 sources) Obstructive sleep apnea syndrome; Translations: [Obstructive sleep apnea (adult) (pediatric)] 10-29-2023 Chronic Residual codes; unclassified (4 sources) Obstructive sleep apnea (adult) (pediatric); Translations: [Obstructive sleep apnea (adult)(pediatric)] Chronic Residual codes; unclassified (2 sources) Dependence on continuous positive airway pressure ventilation; Translations: [Dependence on other enabling machines and devices] 11-01-2023 Chronic Residual codes; unclassified (11 sources) History of breast reconstruction; Translations: [Other specified postprocedural states] Onset: 10-21-2022 Episodic Residual codes; unclassified (7 sources) Other specified postprocedural states; Translations: [Breast replacement] Onset: 08-12-2022 Episodic Residual codes; unclassified (4 sources) Localized edema; Translations: [LOCALIZED EDEMA] Onset: 09-16-2022 Episodic Residual codes; unclassified (1 source) History of reconstruction of right breast; Translations: [Other specified postprocedural states] 12-22-2023 Episodic Spondylosis; intervertebral disc disorders; other back problems (10 sources) Sacrococcygeal disorders, not elsewhere classified; Translations: [Dorsalgia, unspecified] Onset: 05-21-2022 Episodic Thyroid disorders (16 sources) Hypothyroidism, unspecified; Translations: [Hypothyroidism] Onset: 03-24-2022 [...] right breast and nipple] Onset: 07-09-2022 Episodic Unclassified (1 source) CONTACT W/AND (SUSP) EXPOS COVID-19; Translations: [CONTACT W/AND (SUSP) EXPOS COVID-19] Onset: 03-02-2022 Results Test Name Value Interpretation Reference Range Facility Discharge Instructionon 01-11 Discharge Instruction [facility] Medical Records Department [address] [place] [address] Instructions for Home/Discharge Instructions 01/21/24 1037 MR#: [id number] Acct: [id number] Name: BERENICE NOLASCO Rep #: [id number] : 1950 73 From: Apolinar Henry MD PCP: Shaikh Villagran [place] [facility] Instructions Dressing / Incision Additional Dressing/Incision Instructions:: Keep your back elevated (recliner position) to help reduce swelling and bruising. Follow the instructions given in the office. Leave the bra and dressing in place until seen in the office. Follow Up Care Please Follow Up With: Apolinar Henry MD When: In 1 week Test Results: Test results from this visit will be discussed in further detail at your follow-up appointment, if applicable. Discharge Plan Admission Attending Provider: Apolinar Henry Primary Care Provider: Shaikh Villagran Instructions Additional Instructions / Restrictions: Incentive spirometer used hourly during the day. Discharge Orders/Prescriptions Prescriptions: No Action levothyroxine 50 mcg tablet 50 mcg PO DAILY Patient Comments: take 1 tablet by mouth once daily citalopram 20 mg tablet 30 mg PO DAILY Patient Comments: TAKE 1 AND 1/2 TABLETS BY MOUTH ONCE DAILY fesoterodine 8 mg tablet extended release 24 hr 8 mg PO DAILY Patient Comments: TAKE 1 TAB BY MOUTH DAILY simvastatin 20 mg tablet 20 mg PO QHS Patient Comments: Take 1 (one) Tablet by mouth at bedtime famotidine 20 mg tablet 20 mg PO QHS aspirin 81 mg tablet,delayed release (DR/EC) 81 mg PO DAILY Complete MV Adult 50 Plus 0.4 mg-300 mcg- 250 mcg tablet 1 tab PO DAILY calcium carbonate-vitamin D3 [Calcium 600 with Vitamin D3] 600 mg-12.5 mcg (500 unit) capsule 1 cap PO DAILY Collagen Skin Renewal 30-833.3 mg tablet 1 tab PO DAILY melatonin 10 mg tablet 10 mg PO HS Ozempic 0.25 mg or 0.5 mg (2 mg/3 mL) pen injector 0.25 mg subcut TH Patient Comments: inject 0.25 milligrams subcutaneously every week for 4 weeks then... (REFER TO PRESCRIPTION NOTES). esomeprazole magnesium 40 mg capsule,delayed release(DR/EC) 40 mg PO DAILY Patient Comments: take 1 capsule by mouth daily clindamycin HCl 300 mg capsule 300 mg PO Q8H Qty: 15 0RF flaxseed oil 1,000 mg capsule 1,000 mg PO DAILY Probiotic Acidophilus 250 million cell capsule 500 mmu cells PO DAILY Referrals / Follow Up: Shaikh Villagran [Primary Care Provider] - Disposition Disposition (needs filled in before D/C Order can be placed): Home, Self Care 01/21/24 1040 Apolinar Henry MD CC: Shaikh Tyshawn Signed [facility] Operative Reporton 4 Operative Report [facility] Medical Records Department [address] [place] [address] Operative Report 01/21/24 1040 MR#: [id number] Acct: [id number] Name: BERENICE NOLASCO Rep #: [id number] : 1950 73 From: Apolinar Henry MD PCP: Shaikh Villagran Status:[facility] Location: [place] [address] Problems Associated Problem List Diagnoses (1) S/P breast reconstruction, right: (2) History of cancer of right breast: (3) Breast hypertrophy: (4) Breast asymmetry between [place] breast and reconstructed breast: Report of Operation Date of Procedure: 01/21/24 Pre-Operative Diagnosis: 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 She has previously undergone right breast reconstruction with a tissue carpenter's assistant with a remote port. She understands that the purpose of the surgery is to improve the symmetry however it will never be identical to the opposite side. Informed consent was obtained. She is marked in the preop holding area prior to surgery. The patient is brought to the operating room and placed under general anesthesia in the supine position. Care is taken to pad all pressure points, apply a warming blanket, sequential compression stockings, and a Christiansen catheter. The breast and chest are prepped and draped in the usual sterile fashion. We initially began with incising the previously marked incisions on the left breast. Following this, the pedicle is de-epithelialized. The medial and lateral inferior aspects of the breast are removed using argon coagulation. The pedicle was then from the upper flap by continuing dissection cephalad maintaining the upper flap at least 2 cm in thickness. Following this, the pedicle was trimmed in order to allow to comfortably fit beneath the upper flap. The wound is then irrigated with antibiotic solution and checked for hemostasis which is controlled with cautery. Vicryl sutures are used to tack the pedicle to the medial chest to maintain some fullness of the anterior breast. The breast is then infolded and tacked in place using silk suture and skin clips. We began by closing the inframammary crease in 3 layers using a strata fix suture. Approximately 4-1/2 cm above the inframammary crease, the nipple areola is brought out through the upper flap. It is tacked in place with interrupted nylon suture. All incisions are then closed with a running subcuticular strata fix suture. On the opposite side, the port, located beneath the inframammary crease, is palpated. An incision is made in the inframammary crease and carried down until the port is encountered. The port is then freed and sharply snapped off to allow seating of the plug in the tissue carpenter's assistant. The tube is checked for appropriate location of the separation. The wound is observed without leakage of saline noted. The channel, where the tube was previously located is then closed with Vicryl sutures. The wound is then closed in layers using Vicryl suture in the subcutaneous tissue and dermis. Skin edges are approximated with a running subcuticular Monocryl suture. All incisions are injected with quarter percent plain Marcaine. Xeroform is placed on the incisions as well is fluff gauze and she is placed in a front fastening bra. She tolerated the procedure well and was taken to the recovery area in an awake and stable condition. Needle and sponge counts are correct. Complications None Admit VTE Documentation VTE Mechan Device Prophylaxis: SCD's 01/21/24 1048 Cosigner Signature (if applicable): CC: Dr. Apolinar Henry MD; Shaikh Tyshawn Signed Normal [facility] Surgery Specimen Level [place] 01-21-2024 Surgery Specimen Level IV Patient Age/Sex Location Account Attending Physician BERENICE NOLASCO 73/[place] [facility] [id number] Apolinar Henry MD Specimen: [id number] Received: 01/21/24 Status: DARRINKanu Kinjal Num: [id number] Spec Type: MAMOPLASTY Subm Dr: Dr. Apolinar Henry MD HEADER OPERATION: Left breast reduction for symmetry PRE-OP DIAGNOSIS: Status post breast reconstruction, history of right breast cancer, breast hypertrophy, breast asymmetry TISSUE SUBMITTED: Left breast tissue 96 gm MICROSCOPIC DIAGNOSIS Left breast, reduction mammoplasty: Fibrocystic change. Focal intraductal hyperplasia without atypia. Banal microcalcifications. Focal adenosis. Skin with no pathologic change. AM/mr 01/24/2024 MICROSCOPIC DESCRIPTION Slides are reviewed. GROSS DESCRIPTION A - Received in fixative is one container labeled with the patient's name and designated left breast tissue. The specimen consists of multiple pieces of fibroadipose tissue with a few of the pieces showing denis-white skin, weight in OR 96 gm and measuring in aggregate 12.0 x 9.0 x 3.0 cm. No skin lesion is identified. Sections reveal yellow adipose cut surfaces mixed with scant fibrous areas. No mass lesion is identified. Cotton Grower sections are submitted in six cassettes. Cassette 1 contains the skin piece. SJ: 01/21/24 TC:5 CPT: 18300 Patient Age/Sex Location Account Attending Physician BERENICE NOLASCO 73/[place] [facility] [id number]. Apolinar Henry MD Signed (signature on file) Dr. Steve Pichardo DO 01/24/24 1306 Normal [facility] Comment on above: Performed By: #### P SUIV #### [facility] [address] [place], [place], [address] Plastic Surgery Visit Report on 01-05-2024 Plastic Surgery Visit Report [facility] [address], [address] [place] [address] OFFICE VISIT Date of Service: 01/05/24 MR#: [id number] Acct: [id number] Name: BERENICE NOLASCO Rep #: [id number] : 1950 Provider: Dr. Apolinar flores MD Age/Sex: 73/F Location: [facility] Status: Signed Intake Vital Signs 12/14/23 15:53 12/22/23 14:33 01/05/24 14:51 Height 5 ft 6 in 5 ft 6 in 5 ft 6 in Weight: 200 lb 9 oz 202 lb 4 oz 197 lb 7 oz BMI 32.3 32.6 31.8 BP 128/83 H 129/76 H 124/84 H Blood Pressure Location Lt brachial Lt brachial Lt brachial Position Sitting Sitting Sitting Respiration 16 16 16 Pulse 70 71 71 Pulse Source Monitor Monitor Temp 97.9 F 98.8 F 98.1 F Temp Source Temporal Temporal Pulse Oximetry (%) 95 92 93 Oxygen Delivery Method room air room air room air Intake Visit Reasons: pre op #2 left breast reduction/port removal Chief Complaint: left breast red and removal right expand port pre op#2 Is patient in pain?: No Allergies Penicillins Allergy (Verified 01/05/24 14:52) Rash Sulfa (Sulfonamide Antibiotics) Allergy (Verified 01/05/24 14:52) Rash Medications ascorbic acid 30 mg-collagen, hydrolyzed 833.3 mg tablet (Collagen Skin Renewal) 1 tab PO DAILY 05/05/23 [History Confirmed 01/05/24] aspirin 81 mg tablet,delayed release 81 mg PO DAILY 05/05/23 [History Confirmed 01/05/24] calcium carbonate 600 mg-vitamin D3 12.5 mcg (500 unit) capsule (Calcium 600 with Vitamin D3) 1 cap PO DAILY 05/05/23 [History Confirmed 01/05/24] citalopram 20 mg tablet 30 mg PO DAILY 05/05/23 [History Confirmed 01/05/24] esomeprazole magnesium 40 mg capsule,delayed release 40 mg PO DAILY 05/05/23 [History Confirmed 01/05/24] famotidine 20 mg tablet 20 mg PO QHS 05/05/23 [History Confirmed 01/05/24] fesoterodine 8 mg tablet,extended release 24 hr 8 mg PO DAILY 05/05/23 [History Confirmed 01/05/24] levothyroxine 50 mcg tablet 50 mcg PO DAILY 05/05/23 [History Confirmed 01/05/24] melatonin 10 mg tablet 10 mg PO HS 05/05/23 [History Confirmed 01/05/24] hyvfyria-hpz-radez acid 0.4 mg-lycopene 300 mcg-lutein 250 mcg tablet (Complete Multivitamin Adult 50 Plus) 1 tab PO DAILY 05/05/23 [History Confirmed 01/05/24] semaglutide 0.25 mg or 0.5 mg (2 mg/3 mL) subcutaneous pen injector (Ozempic) 0.25 mg subcut TH 05/05/23 [History Confirmed 01/05/24] simvastatin 20 mg tablet 20 mg PO QHS 05/05/23 [History Confirmed 01/05/24] Lactobacillus acidophilus 250 million cell capsule (Probiotic Acidophilus) 500 mmu cells PO DAILY 12/30/23 [History Confirmed 01/05/24] flaxseed oil 1,000 mg capsule 1,000 mg PO DAILY 12/30/23 [History Confirmed 01/05/24] clindamycin HCl 300 mg capsule 300 mg PO Q8H #15 caps 01/05/24 [Rx Confirmed 01/05/24] oxycodone-acetaminophen 5 mg-325 mg tablet (Percocet) 1 tab PO TID PRN pain 3 days #7 tabs 01/05/24 [Rx Confirmed 01/05/24] Nurse's Note: pt here with for preop #2 PFSH Medical History (Updated 12/30/23 @ 10:49 by Adriana Anne) Alcohol use Arthritis Back pain Bladder disease Breast cancer Chronic SI joint pain CPAP (continuous positive airway pressure) dependence Dental root implant present Depression GERD (gastroesophageal reflux disease) High cholesterol History of edema History of heart attack History of pain when walking Non-smoker Post-menopausal Syncope Thyroid disease Walker as ambulation aid Wears glasses Surgical History (Updated 12/30/23 @ 10:49 by Adriana Anne) H/O arthroscopy of shoulder History of arthroscopy of knee History of bladder suspension procedure History of cardiac catheterization History of modified radical mastectomy of right breast History of sinus surgery Hx of colonoscopy Hx of left cataract extraction Hx of left inguinal hernia repair Hx of right cataract extraction Family History (Updated 05/05/23 @ 14:24 by Elin Beckiwth) Mother Heart disease Father Heart disease Social History (Updated 05/05/23 @ 14:23 by Elin Beckwith) Smoking Status: Never smoker alcohol intake: current substance use type: does not use additional social history: Aspirin use daily. Occasional Ibuprofen use. HPI pre op #2 left breast reduction/port removal Details: Berenice comes in for preop preparation regarding the upcoming left breast reduction and removal of the right port. Exam Details Patient with breast asymmetry with a right reconstructed breast with a port in place and a left hypertrophic and ptotic breasts. The procedure of breast reduction and port removal was reviewed with the patient including the expected pre-, intra-, postoperative course. She was given prescriptions for clindamycin and Percocet. The instructions for their use were reviewed along with precautions. The pre and postoperative instructi (more content not included)... Normal [facility] Basic Metabolic Profile (BMP )on 12-22-2023 BUN/CRE 20.5 RATIO High 10-20 [facility] Comment on above: Order Comment: pre a dmission testing for surgery Performed By: #### L 500.2500, L100.0500 #### [facility] [address] [place], [address] CA,Total 9.1 mg/dL Normal 8.5-10.1 [facility] Comment on above: Order Comment: pre a dmission testing for surgery Performed By: #### L 500.2500, L100.0500 #### [facility] [address] [place], [address] Chloride [Moles/Vol] 108 mmol/L High 98-107 [facility] Comment on above: Order Comment: pre a dmission testing for surgery Performed By: #### L 500.2500, L100.0500 #### [facility] [address] [place], [address] CO2 [Moles/Vol] 27.0 mmol/L Normal 21.0-32.0 [facility] Comment on above: Order Comment: pre a dmission testing for surgery Performed By: #### L 500.2500, L100.0500 #### [facility] [address] [place], [address] Creatinine [Mass/Vol] 0.68 mg/dL Normal 0.55-1.02 [facility] Comment on above: Order Comment: pre a dmission testing for surgery Result Comment: The validity of the calculated GFR GFRAA in patients over 70 years has not been determined. Clinical correlation is essential. Performed By: #### L 500.2500, L100.0500 #### [facility] [address] [place], [address] EST GFR - AA 108 mL/min Normal >60 [facility] Comment on above: Order Comment: pre a dmission testing for surgery Result Comment: Afri can Bel[place]ian GFR Calc Performed By: #### L 500.2500, L100.0500 #### [facility] [address] [place], [address] GAP 3 Low 5-15 [facility] Comment on above: Order Comment: pre a dmission testing for surgery Performed By: #### L 500.2500, L100.0500 #### [facility] [address] [place], [address] GFR/1.73 sq M.predicted among non-blacks MDRD (S/P/Bld) [Vol rate/Area] 90 mL/min/{1.73_m2} Normal >60 [facility] Comment on above: Order Comment: pre a dmission testing for surgery Result Comment: Non- GFR Calc Performed By: #### L 500.2500, L100.0500 #### [facility] [address] [place], [address] Glucose [Mass/Vol] 88 mg/dL Normal 74-106 [facility] Comment on above: Order Comment: pre a dmission testing for surgery Performed By: #### L 500.2500, L100.0500 #### [facility] [address] [place], [address] Potassium [Moles/Vol] 4.6 mmol/L Normal 3.5-5.1 [facility] Comment on above: Order Comment: pre a dmission testing for surgery Performed By: #### L 500.2500, L100.0500 #### [facility] [address] [place], [address] Sodium [Moles/Vol] 138 mmol/L Normal 136-145 [facility] Comment on above: Order Comment: pre a dmission testing for surgery Performed By: #### L 500.2500, L100.0500 #### [facility] [address] [place], [address] Urea nitrogen [Mass/Vol] 14 mg/dL Normal 7-18 [facility] Comment on above: Order Comment: pre a dmission testing for surgery Performed By: #### L 500.2500, L100.0500 #### [facility] [address] [place], [address] Basophil percentageOrdered B y: Apolinar Henry on 12-22-2023 Chloride [Moles/Vol] 108 mmol/L 98-107 [facility] Glucose [Mass/Vol] 88 mg/dL 74-106 [facility] Hemoglobin (Bld) [Mass/Vol] 14.1 g/dL 12.0-15.0 [facility] Potassium [Moles/Vol] 4.6 mmol/L 3.5-5.1 [facility] Sodium [Moles/Vol] 138 mmol/L 136-145 [facility] WBC (Bld) [#/Vol] 8.1 10*3/uL 4.4-11.0 [facility] CBC-Complete Blood Cnt No Di ffon 12-22-2023 Erythrocyte distribution width (RBC) [Ratio] 13.9 % Normal 11.6-14.6 [facility] Comment on above: Order Comment: Commdanny nts: preadmission testing for surgery Performed By: #### L 500.2500, L100.0500 #### [facility] [address] [place], [address] Hematocrit (Bld) [Volume fraction] 43.9 % Normal 37-47 [facility] Comment on above: Order Comment: Wei nts: preadmission testing for surgery Performed By: #### L 500.2500, L100.0500 #### [facility] [address] [place], [address] Hemoglobin (Bld) [Mass/Vol] 14.1 g/dL Normal 12.0-15.0 [facility] Comment on above: Order Comment: Wei nts: preadmission testing for surgery Performed By: #### L 500.2500, L100.0500 #### [facility] [address] [place], [address] MCH (RBC) [Entitic mass] 28.4 pg Normal 27.0-32.0 [facility] Comment on above: Order Comment: Wei nts: preadmission testing for surgery Performed By: #### L 500.2500, L100.0500 #### [facility] [address] [place], [address] MCHC (RBC) [Mass/Vol] 32.1 g/dL Normal 32-36 [facility] Comment on above: Order Comment: Wei nts: preadmission testing for surgery Performed By: #### L 500.2500, L100.0500 #### [facility] [address] [place], [address] MCV (RBC) [Entitic vol] 88.3 fL Normal 81-99 [facility] Comment on above: Order Comment: Comme nts: preadmission testing for surgery Performed By: #### L 500.2500, L100.0500 #### [facility] [address] [place], [address] Platelet mean volume (Bld) [Entitic vol] 10.8 fL Normal 6.2-12.0 [facility] Comment on above: Order Comment: Comme nts: preadmission testing for surgery Performed By: #### L 500.2500, L100.0500 #### [facility] [address] [place], [address] Platelets (Bld) [#/Vol] 188 10*3/uL Normal 150-450 [facility] Comment on above: Order Comment: Comme nts: preadmission testing for surgery Performed By: #### L 500.2500, L100.0500 #### [facility] [address] [place], [address] RBC (Bld) [#/Vol] 4.97 10*6/uL Normal 4.2-5.4 [facility] Comment on above: Order Comment: Comme nts: preadmission testing for surgery Performed By: #### L 500.2500, L100.0500 #### [facility] [address] [place], [address] RDW SD 44.7 fl High 35.1-43.9 [facility] Comment on above: Order Comment: Comme nts: preadmission testing for surgery Performed By: #### L 500.2500, L100.0500 #### [facility] [address] [place], [address] WBC (Bld) [#/Vol] 8.1 10*3/uL Normal 4.4-11.0 [facility] Comment on above: Order Comment: Comme nts: preadmission testing for surgery Performed By: #### L 500.2500, L100.0500 #### [facility] [address] [place], [address] Determination of erythrocyte mean corpuscular volume (MCV)Ordered By: Apolinar Henry on 12-22-2023 MCV (RBC) [Entitic vol] 88.3 fL 81-99 [facility] Erythrocyte distribution wid th ratioOrdered By: Apolinar Henry on 12-22-2023 Erythrocyte distribution width (RBC) [Ratio] 13.9 % 11.6-14.6 [facility] Erythrocyte distribution wid th standard deviationOrdered By: Apolinar Henry on 12-22-2023 Erythrocyte distribution width (RBC) [Entitic vol] 44.7 fL 35.1-43.9 [facility] Hematocrit Auto (Bld) [Volum e fraction]Ordered By: Apolinar Henry on 12-22-2023 Hematocrit (Bld) [Volume fraction] 43.9 % 37-47 [facility] - Chemistry and C hemistry - challengeOrdered By: Apolinar Henry on 12-22-2023 CO2 [Moles/Vol] 27.0 mmol/L 21.0-32.0 [facility] Urea nitrogen/Creatinine [Mass ratio] 20.5 mg/mg 10-20 [facility] - Hematology and Cell countsOrdered By: Apolinar Henry on 12-22-2023 MCH (RBC) [Entitic mass] 28.4 pg 27.0-32.0 [facility] MCHC (RBC) [Mass/Vol] 32.1 g/dL 32-36 [facility] Platelet mean volume (Bld) [Entitic vol] 10.8 fL 6.2-12.0 [facility] Platelets (Bld) [#/Vol] 188 10*3/uL 150-450 [facility] No Panel InformationOrdered By: Apolinar Henry on 12-22-2023 Estimated GFR (MDRD) Amer 108 mL/min >60 [facility] Comment on above: GFR Calc Estimated GFR (MDRD) Non-Af Amer 90 mL/min >60 [facility] Comment on above: Non- GFR Calc Plastic Surgery Visit Report on 12-22-2023 Plastic Surgery Visit Report [facility] [address], [address] [place] [address] OFFICE VISIT Date of Service: 12/22/23 MR#: [id number] Acct: [id number] Name: BERENICE NOLASCO Rep #: [id number] : 1950 Provider: Dr. Apolinar flores MD Age/Sex: 73/F Location: [facility] [place] Status: Signed Intake Vital Signs 12/14/23 15:53 12/22/23 14:33 Height 5 ft 6 in 5 ft 6 in Weight: 200 lb 9 oz 202 lb 4 oz BMI 32.3 32.6 BP 128/83 H 129/76 H Blood Pressure Location Lt brachial Lt brachial Position Sitting Sitting Respiration 16 16 Pulse 70 71 Pulse Source Monitor Temp 97.9 F 98.8 F Temp Source Temporal Pulse Oximetry (%) 95 92 Oxygen Delivery Method room air room air Intake Visit Reasons: pre op #1 Left Breast reduction/port removal Chief Complaint: left breast red and removal right expand port pre op#1 Accompanied by: Is patient in pain?: No Allergies Penicillins Allergy (Verified 12/22/23 14:34) Rash Sulfa (Sulfonamide Antibiotics) Allergy (Verified 12/22/23 14:34) Rash Medications ascorbic acid 30 mg-collagen, hydrolyzed 833.3 mg tablet (Collagen Skin Renewal) 1 tab PO DAILY 05/05/23 [History Confirmed 12/22/23] aspirin 81 mg tablet,delayed release 81 mg PO DAILY 05/05/23 [History Confirmed 12/22/23] calcium carbonate 600 mg-vitamin D3 12.5 mcg (500 unit) capsule (Calcium 600 with Vitamin D3) 1 cap PO DAILY 05/05/23 [History Confirmed 12/22/23] citalopram 20 mg tablet 30 mg PO DAILY 05/05/23 [History Confirmed 12/22/23] esomeprazole magnesium 40 mg capsule,delayed release 40 mg PO DAILY 05/05/23 [History Confirmed 12/22/23] famotidine 20 mg tablet 20 mg PO DAILY 05/05/23 [History Confirmed 12/22/23] fesoterodine 8 mg tablet,extended release 24 hr 8 mg PO DAILY 05/05/23 [History Confirmed 12/22/23] levothyroxine 50 mcg tablet 50 mcg PO DAILY 05/05/23 [History Confirmed 12/22/23] melatonin 10 mg tablet 10 mg PO HS 05/05/23 [History Confirmed 12/22/23] nkcicgtz-sdv-kxvum acid 0.4 mg-lycopene 300 mcg-lutein 250 mcg tablet (Complete Multivitamin Adult 50 Plus) 1 tab PO DAILY 05/05/23 [History Confirmed 12/22/23] semaglutide 0.25 mg or 0.5 mg (2 mg/3 mL) subcutaneous pen injector (Ozempic) 0.25 mg subcut QWEEK 05/05/23 [History Confirmed 12/22/23] simvastatin 20 mg tablet 20 mg PO DAILY 05/05/23 [History Confirmed 12/22/23] Nurse's Note: pt here pre op #1 left breast reduction/port removal right- [facility] Medical History (Updated 05/05/23 @ 15:[address] Apolinar Henry MD) Breast cancer Cataracts, bilateral Chronic SI joint pain Dental root implant present GERD (gastroesophageal reflux disease) High cholesterol Obstructive sleep apnea on CPAP Surgical History (Updated 12/22/23 @ 15:[address] Apolinar Henry MD) Cataract (lens) fragments in eye following cataract [...] Aspirin use daily. Occasional Ibuprofen use. HPI pre op #1 Left Breast reduction/port removal Details: Berenice comes in for preop preparation regarding the upcoming left breast reduction and removal of the right injection port. She underwent mammogram in which was unremarkable. She attends the appointment today with her . Exam Details Patient with significant breast asymmetry with a smaller right reconstructed breast and a larger ptotic left breast. The procedure was briefly reviewed with her including limitations after surgery. The expected pre-, intra-, postoperative course were reviewed. I reviewed with her a list of medications to avoid before surgery. I counseled her that she will have to stop her aspirin before and after surgery. I will provide her prescriptions at her next appointment. She was given copies of before and after instructions to review. The informed consent was also given to her to review and I will review this at length at the next appointment. She is counseled to see her PCP for medical clearance prior to surgery. We will coordinate obtaining labs today (CBC and BMP). Const General: cooperative and healthy appearing Skin Other: She has a small rash beneath her left breast which appears to be secondary to a yeast infection. I counseled them on using an antifungal product on this. Psych Appearance: grossly normal and well kempt Attitude: cooperative Coding Level of (more content not included)... Normal [facility] RBC Auto (Bld) [#/Vol]Ordere d By: Apolinar Henry on 12-22-2023 RBC (Bld) [#/Vol] 4.97 10*6/uL 4.2-5.4 [facility] Serum or plasma calcium adalgisa urement (mass/volume)Ordered By: Apolinar Henry on 12-22-2023 Calcium [Mass/Vol] 9.1 mg/dL 8.5-10.1 [facility] Serum or plasma creatinine m easurement (mass/volume)Ordered By: Apolinar Henry on 12-22-2023 Creatinine [Mass/Vol] 0.68 mg/dL 0.55-1.02 [facility] Comment on above: The validity of the calculated GFR & GFRAA in patients over 70 years has not been determined. Clinical correlation is essential. Serum or plasma urea nitroge n measurement (mass/volume)Ordered By: Apolinar Henry on 12-22-2023 Urea nitrogen [Mass/Vol] 14 mg/dL 7-18 [facility] Thin prep Papanicolaou smear with manual screeningOrdered By: Apolinar Henry on 12-22-2023 Thin prep Papanicolaou smear with manual screening 3 5-15 [facility] Plastic Surgery Visit Report on 12-14-2023 Plastic Surgery Visit Report [facility] [address], [address] [place], [place] [address] OFFICE VISIT Date of Service: 12/14/23 MR#: [id number] Acct: [id number] Name: BERENICE NOLASCO Rep #: [id number] : 1950 Provider: Dr. Apolinar flores MD Age/Sex: 73/F Location: [facility] [place] Status: Signed Intake Vital Signs 06/30/23 15:08 12/14/23 15:53 Height 5 ft 6 in 5 ft 6 in Weight: 207 lb 6 oz 200 lb 9 oz BMI 33.5 32.3 BP 135/81 H 128/83 H Blood Pressure Location Lt brachial Lt brachial Position Sitting Sitting Respiration 16 16 Pulse 65 70 Pulse Source NIBP Temp 97.3 F L 97.9 F Temp Source Oral Pulse Oximetry (%) 94 95 Oxygen Delivery Method room air room air Intake Visit Reasons: Follow up Chief Complaint: left breast red and removal right expand port-discussion Is patient in pain?: No Allergies Penicillins Allergy (Verified 12/14/23 15:55) Rash Sulfa (Sulfonamide Antibiotics) Allergy (Verified 12/14/23 15:55) Rash Medications ascorbic acid 30 mg-collagen, hydrolyzed 833.3 mg tablet (Collagen Skin Renewal) 1 tab PO DAILY 05/05/23 [History Confirmed 12/14/23] aspirin 81 mg tablet,delayed release 81 mg PO DAILY 05/05/23 [History Confirmed 12/14/23] calcium carbonate 600 mg-vitamin D3 12.5 mcg (500 unit) capsule (Calcium 600 with Vitamin D3) 1 cap PO DAILY 05/05/23 [History Confirmed 12/14/23] citalopram 20 mg tablet 30 mg PO DAILY 05/05/23 [History Confirmed 12/14/23] esomeprazole magnesium 40 mg capsule,delayed release 40 mg PO DAILY 05/05/23 [History Confirmed 06/30/23] famotidine 20 mg tablet 20 mg PO DAILY 05/05/23 [History Confirmed 12/14/23] fesoterodine 8 mg tablet,extended release 24 hr 8 mg PO DAILY 05/05/23 [History Confirmed 12/14/23] levothyroxine 50 mcg tablet 50 mcg PO DAILY 05/05/23 [History Confirmed 12/14/23] melatonin 10 mg tablet 10 mg PO HS 05/05/23 [History Confirmed 12/14/23] gflndlks-qxi-iawyw acid 0.4 mg-lycopene 300 mcg-lutein 250 mcg tablet (Complete Multivitamin Adult 50 Plus) 1 tab PO DAILY 05/05/23 [History Confirmed 12/14/23] semaglutide 0.25 mg or 0.5 mg (2 mg/3 mL) subcutaneous pen injector (Ozempic) 0.25 mg subcut QWEEK 05/05/23 [History Confirmed 12/14/23] simvastatin 20 mg tablet 20 mg PO DAILY 05/05/23 [History Confirmed 12/14/23] Nurse's Note: pt here with to discuss future surgery Left breast reduction, removal right carpenter's assistant pot. [facility] Medical History (Updated 05/05/23 @ 15:33 by [...] Aspirin use daily. Occasional Ibuprofen use. HPI Follow up Details: Berenice comes in for reconsideration of the surgery to remove the port on the right reconstructed breast as well as reduce the left breast. She had initially been scheduled to undergo this procedure several months ago however needed further workup regarding unsteadiness. She also underwent hernia surgery. She has been on Ozempic and has lost 30 pounds in the interim. Exam Details The patient's right breast tissue carpenter's assistant is in good position and the port is palpable. The incisions are well-approximated. She has 1 area of weakness of the ADM where the implant is more palpable. She has hypertrophy of the left breast. There are no palpable masses or axillary adenopathy. I reviewed breast reduction with her to match the reconstructed right breast. The incisions and scars as well as limitations after surgery were reviewed. The expected pre-, intra, and postoperative course were reviewed. At the same setting, we would remove the port on the right tissue carpenter's assistant which has the capability of functioning as a permanent implant. The surgery would be done as an outpatient under general anesthetic. Const General: cooperative and healthy appearing Nutritional Appearance: overweight Orientation: alert [facility] Head: normal to inspection Eyes General: appearance normal, both eyes and all related structures Neck Neck: normal visual inspection Neuro General: patient alert Other: Slightly unsteady gait (more content not included)... Normal [facility] MR BRAIN W WO CONTon 024 MR BRAIN W WO CONT MR [...] Kwon DO on 11/19/2023 10:48 AM Normal [facility] Surgery Office/Clinic Noteon 10-11-2023 Surgery Office/Clinic Note [...] breast cancer History of colonoscopy with polypectomy CT (myocardial infarction) (2013) Morbid obesity with body [...] catheterization (07/2014) Comments: HAD HEART CATH AFTER CT DURING KNEE SCOPE. NO STENTS WERE PLACED [...] cancer: Aunt/Uncle. (more content not included)... Normal [facility] Urology Office/Clinic Noteon 09-01-2023 Urology Office/Clinic [...] breast cancer History of colonoscopy with polypectomy CT (myocardial infarction) (2013) Morbid obesity with body [...] by Kevin Joaquin 09/01/23 12:02 EST Normal [facility] Surgery Office/Clinic Noteon 07-20-2023 Surgery Office/Clinic [...] inguinal, left History of colonoscopy with polypectomy CT (myocardial infarction) (2013) Morbid obesity with body [...] Robotic left inguinal hernia repair Surgeon(s) [place] Supervising Appraiser Cristiana TIDWELL Anesthesia [employer] [employer] DEPUTY, GET Estimated Blood Loss 5 ml Urine [...] Report on 06-30-2023 Plastic Surgery Visit Report [facility] Plastic [facility]constructive Surgery [address], [address] [place] [address] OFFICE VISIT Date of Service: 06/30/23 MR#: [id number] Acct: [id number] Name: BERENICE NOLASCO Rep #: [id number] : 1950 Provider: Dr. Apolinar flores MD Age/Sex: 73/F Location: [facility] Status: Signed Intake Vital Signs 05/05/23 [...] Reasons: preop #1 left breast red/ right carpenter's assistant port Chief Complaint: left breast red and [...] mg PO HS 05/05/23 [History Confirmed 06/30/23] sbasryxs-dwi-qbwex acid 0.4 mg-lycopene 300 mcg-lutein 250 mcg tablet (Complete Multivitamin Adult 50 Plus) 1 tab PO DAILY 05/05/23 [History Confirmed 06/30/23] semaglutide 0.25 mg or 0.5 mg (2 mg/3 mL) subcutaneous pen injector (Ozempic) 0.25 mg subcut QWEEK 05/05/23 [History Confirmed 06/30/23] simvastatin 20 mg tablet 20 mg PO DAILY 05/05/23 [History Confirmed 06/30/23] [facility] Medical History (Updated 05/05/23 @ 15:33 by [...] HPI preop #1 left breast red/ right carpenter's assistant port Details: Berenice comes in for preliminary [...] Z85.3 Breast hypertrophy N62 Breast asymmetry between venetie breast and reconstructed breast N65.1 Assessment (more content not included)... Normal [facility] .eGFRon 06-01-2023 GFR/1.73 sq M.predicted MDRD (S/P/Bld) [Vol rate/Area] mL/min/{1.73_m2} Normal >=60 [facility] Comment on above: Order Comment: Order added by Discern rule Result Comment: [facility] have implemented the eGFR calculation [...] years Performed By: #### E GFR #### [place] [address] CBC w/ Diffon 06-01-2023 Erythrocyte distribution width (RBC) [Ratio] 14.9 % High 11.6-14.8 [facility] Comment on above: Performed By: #### C BC #### [place] [address] Hematocrit (Bld) [Volume fraction] 41.0 % Normal 36.0-46.0 [facility] Comment on above: Performed By: #### C BC #### [place] [address] Hemoglobin (Bld) [Mass/Vol] 13.8 g/dL Normal 12.0-16.0 [facility] Comment on above: Performed By: #### C BC #### [place] [address] MCH (RBC) [Entitic mass] 28.6 pg Normal 27.0-35.0 [facility] Comment on above: Performed By: #### C BC #### [place] [address] MCHC 33.7 % Normal 31.0-37.0 [facility] Comment on above: Performed By: #### C BC #### [place] [address] MCV (RBC) [Entitic vol] 85.0 fL Normal 80.0-100.0 [facility] Comment on above: Performed By: #### C BC #### [place] [address] Platelet 180 x10*3/mcL Normal 150-450 [facility] Comment on above: Performed By: #### C BC #### [place] [address] Platelet mean volume (Bld) [Entitic vol] 8.6 fL Normal 7.5-11.5 [facility] Comment on above: Performed By: #### C BC #### [place] [address] RBC 4.82 x10*6/mcL Normal 3.80-5.20 [facility] Comment on above: Performed By: #### C BC #### [place] [address] WBC 8.6 x10*3/mcL Normal 4.5-11.0 [facility] Comment on above: Performed By: #### C BC #### [place] [address] CMPon 06-01-2023 Albumin [Mass/Vol] 4.1 g/dL Normal 3.7-5.3 [facility] Comment on above: Performed By: #### C OMP #### [place] [address] Albumin/Globulin [Mass ratio] 1.5 {ratio} Normal 1.1-2.2 [facility] Comment on above: Performed By: #### C OMP #### [place] [address] Alk Phos 130 IU/L High 34-104 [facility] Comment on above: Performed By: #### C OMP #### [place] [address] ALT [Catalytic activity/Vol] 37 U/L Normal 7-52 [facility] Comment on above: Performed By: #### C OMP #### [place] [address] Anion gap [Moles/Vol] 10 mmol/L Normal 7-17 [facility] Comment on above: Performed By: #### C OMP #### [place] [address] AST [Catalytic activity/Vol] 31 U/L Normal 13-39 [facility] Comment on above: Performed By: #### C OMP #### [place] [address] Bili Total 0.6 mg/dL Normal 0.3-1.0 [facility] Comment on above: Performed By: #### C OMP #### [place] [address] Calcium [Mass/Vol] 9.4 mg/dL Normal 8.6-10.3 [facility] Comment on above: Performed By: #### C OMP #### [place] [address] Chloride 103 IU/L Normal 98-107 [facility] Comment on above: Performed By: #### C OMP #### [place] [address] CO2 [Moles/Vol] 28 mmol/L Normal 21-31 [facility] Comment on above: Performed By: #### C OMP #### [place] [address] Creatinine [Mass/Vol] 0.79 mg/dL Normal 0.60-1.20 [facility] Comment on above: Performed By: #### C OMP #### [place] [address] Glucose [Mass/Vol] 108 mg/dL High 70-99 [facility] Comment on above: Performed By: #### C OMP #### [place] [address] Potassium [Moles/Vol] 4.2 mmol/L Normal 3.4-4.8 [facility] Comment on above: Performed By: #### C OMP #### [place] [address] Protein [Mass/Vol] 6.8 g/dL Normal 6.0-8.3 [facility] Comment on above: Performed By: #### C OMP #### [place] [address] Sodium [Moles/Vol] 137 mmol/L Normal 136-145 [facility] Comment on above: Performed By: #### C OMP #### [place] [address] Urea nitrogen [Mass/Vol] 17 mg/dL Normal 7-25 [facility] Comment on above: Performed By: #### C OMP #### [place] [address] Urea nitrogen/Creatinine [Mass ratio] 21.5 mg/mg High 10.0-20.0 [facility] Comment on above: Performed By: #### C OMP #### [address] [address] Diff Autoon 06-01-2023 Baso Absolute 0.0 x10*3/mcL Normal 0.0-0.2 [facility] Comment on above: Performed By: #### C OMP #### [place] [address] Basophils/100 WBC (Bld) 0.3 % Normal 0.0-1.5 [facility] Comment on above: Performed By: #### C OMP #### [place] [address] Eos Absolute 0.1 x10*3/mcL Normal 0.0-0.4 [facility] Comment on above: Performed By: #### C OMP #### [address] [address] Eosinophils/100 WBC (Bld) 1.1 % Normal 0.0-5.4 [facility] Comment on above: Performed By: #### C OMP #### [address] [address] Lymph Absolute 2.0 x10*3/mcL Normal 1.0-4.8 [facility] Comment on above: Performed By: #### C OMP #### [address] [address] Lymphocytes/100 WBC (Bld) 23.1 % Low 27.2-40.8 [facility] Comment on above: Performed By: #### C OMP #### [place] [address] [place] Absolute 0.4 x10*3/mcL Normal 0.1-1.1 [facility] Comment on above: Performed By: #### C OMP #### [address] [address] Monocytes/100 WBC (Bld) 5.1 % Normal 3.7-11.9 [facility] Comment on above: Performed By: #### C OMP #### [place] [address] Neutro Absolute 6.1 x10*3/mcL Normal 1.8-7.7 [facility] Comment on above: Performed By: #### C OMP #### [place] [address] Neutro Auto 70.4 % Normal 47.2-70.8 [facility] Comment on above: Performed By: #### C OMP #### [place] [address] Plastic Surgery Visit Report on 05-05-2023 Plastic Surgery Visit Report [facility]astic [facility] [address], [address] [place] [address] OFFICE VISIT Date of Service: 05/05/23 MR#: [id number] Acct: [id number] Name: BERENICE NOLASCO Rep #: [id number] : 1950 Provider: Dr. Apolinar flores MD Age/Sex: 73/F [facility] Status: Signed Intake Vital Signs 05/05/23 14:25 Height 5 ft 6 in Weight: 217 lb BMI 35.0 BP 120/78 Blood Pressure Location Lt brachial Position Sitting Respiration 16 Pulse 70 Pulse Source Monitor Temp 97.7 F L Temp Source Temporal Pulse Oximetry (%) 96 Oxygen Delivery Method room air Intake Visit Reasons: Consult Chief Complaint: Right breast reconsruction consult Group Teacher Required: No Accompanied by: Is patient in [...] mg PO HS 05/05/23 [History Confirmed 05/05/23] cfvfnuff-gfg-vkkjz acid 0.4 mg-lycopene 300 mcg-lutein 250 mcg tablet (Complete Multivitamin Adult 50 Plus) 1 tab PO DAILY 05/05/23 [History Confirmed 05/05/23] semaglutide 0.25 mg or 0.5 mg (2 mg/3 mL) subcutaneous pen injector (Ozempic) 0.25 mg subcut QWEEK 05/05/23 [History Confirmed 05/05/23] simvastatin 20 mg tablet 20 mg PO DAILY 05/05/23 [History Confirmed 05/05/23] [facility] Medical History (Updated 05/05/23 @ 15:33 by [...] after having undergone reconstruction with a tissue carpenter's assistant. Her initial right mastectomy was done approximately 30 years ago. She underwent placement of a tissue carpenter's assistant in . Her last fill was in . She has a total of 390 cc of saline and the implant which is the capacity of the carpenter's assistant as a permanent prosthesis. Her implant is a [place] smooth round spectrum style 1400. Reference #[id number] has decided to leave the carpenter's assistant and is a permanent implant. We had [...] incontinence Exam Chest Other: Patient with a carpenter's assistant in place on the right breast. The port is palpable in the in (more content not included)... Normal [facility] Urology Office/Clinic Noteon 02-18-2023 Urology Office/Clinic [...] breast cancer History of colonoscopy with polypectomy CT (myocardial infarction) Morbid obesity with body mass [...] (Rash) sulfa drugs (Rash) Electronically signed by YoletteKevin Sylvester 02/18/23 15:27 EDT Normal [facility] Urology [...] to pharmacy. If too expensive will send [facility]. Follow-up in 6 weeks for symptom check. I did give her OAB handout and she is going to look over third line therapies as well. Ordered: mirabegron, 1 tabs, Oral, Daily, do not crush or chew, # 30 tabs, 11 Refill(s), Pharmacy: [facility] #[id number] Problem List/Past Medical History Ongoing Arthritis of left hip CAD (coronary artery disease) Chronic cough Chronic GERD CPAP/BiPAP dependent Cystocele Depression Drug-induced obesity with body mass index (BMI) of 35 to less than 40 Encounter for gynecological examination (general) (routine) without abnormal findings Feeling of incomplete bladder emptying GERD H/O cardiac catheterization History of breast cancer History of colonoscopy with polypectomy Hyperlipidemia CT (myocardial infarction) Morbid obesity with body mass [...] CONSULT FOLLOWUPon 2022 VC CONSULT FOLLOWUP Patient: LETICIA NOLASCO Exam Date: 12/16/2022 : 1950 Gender:F Ordering : SHAIKH Quirino VILLAGRAN . Admission #: [id number] Family : Order #: [id number] CLICK HERE TO VIEW EXAM RADIOLOGY REPORT [...] MD on 12/16/2022 at 14:59 Normal [facility] CBC AUTO DIFFon 09-16-2022 BASO # 0.0 103/ul Normal 0.0-0.1 [facility] Comment on above: Performed By: #### C BC #### [facility] [address] [place] [address] Dr. Danielle Penaloza Basophils/100 WBC (Bld) 0.5 % Normal 0.2-2.0 [facility] Comment on above: Performed By: #### C BC #### [facility] [address] [place] [address] Dr. Danielle Penaloza EO # 0.1 103/ul Normal 0.0-0.7 [facility] Comment on above: Performed By: #### C BC #### [facility] [address] [place] [address] Dr. Danielle Penaloza Eosinophils/100 WBC (Bld) 1.2 % Normal 0.9-7.0 [facility] Comment on above: Performed By: #### C BC #### [facility] [address] [place] [address] Dr. Danielle Penaloza Erythrocyte distribution width (RBC) [Ratio] 14.2 % Normal 11.0-15.0 [facility] Comment on above: Performed By: #### C BC #### [facility] [address] [place] [address] Dr. Danielle Penaloza Hematocrit (Bld) [Volume fraction] 42.5 % Normal 36.0-48.0 [facility] Comment on above: Performed By: #### C BC #### [facility] [address] [place] [address] Dr. Danielle Penaloza Hemoglobin (Bld) [Mass/Vol] 14.1 g/dL Normal 12.0-16.0 [facility] Comment on above: Performed By: #### C BC #### [facility] [address] [place] [address] Dr. Danielle Penaloza IG # 0.02 10e3/ul Normal 0.00-0.03 [facility] Comment on above: Performed By: #### C BC #### [facility] [address] [place] [address] Dr. Danielle Penaloza IG % 0.2 % Normal 0.0-0.5 [facility] Comment on above: Performed By: #### C BC #### [facility] [address] [place] [address] Dr. Danielle Penaloza LYMPH # 1.9 103/ul Normal 1.2-3.8 [facility] Comment on above: Performed By: #### C BC #### [facility] [address] [place] [address] Dr. Danielle Penaloza Lymphocytes/100 WBC (Bld) 23.4 % Normal 20.5-60.0 [facility] Comment on above: Performed By: #### C BC #### [facility] [address] [place] [address] Dr. Danielle Penaloza MANUAL DIFF REQ NO Normal [facility] Comment on above: Performed By: #### C BC #### [facility] [address] [place] [address] Dr. Danielle Penaloza MCH (RBC) [Entitic mass] 28.1 pg Normal 26.7-34.0 [facility] Comment on above: Performed By: #### C BC #### [facility] [address] [place] [address] Dr. Danielle Penaloza MCHC (RBC) [Mass/Vol] 33.2 g/dL Normal 29.9-35.2 [facility] Comment on above: Performed By: #### C BC #### [facility] [address] [place] [address] Dr. Danielle Penaloza MCV (RBC) [Entitic vol] 84.8 fL Normal 81.0-99.0 [facility] Comment on above: Performed By: #### C BC #### [facility] [address] [place] [address] Dr. Danielle Penaloza MONO # 0.5 103/ul Normal 0.3-0.8 [facility] Comment on above: Performed By: #### C BC #### [facility] [address] [place] [address] Dr. Danielle Penaloza Monocytes/100 WBC (Bld) 6.0 % Normal 1.7-12.0 [facility] Comment on above: Performed By: #### C BC #### [facility] [address] [place] [address] Dr. Danielle Penaloza NEUT # 5.5 103/ul Normal 1.4-6.5 [facility] Comment on above: Performed By: #### C BC #### [facility] [address] [place] [address] Dr. Danielle Penaloza Neutrophils/100 WBC (Bld) 68.7 % Normal 43.0-75.0 [facility] Comment on above: Performed By: #### C BC #### [facility] [address] [place] [address] Dr. Danielle Penaloza Platelet mean volume (Bld) [Entitic vol] 9.9 fL Normal 9.5-13.5 [facility] Comment on above: Performed By: #### C BC #### [facility] [address] [place] [address] Dr. Danielle Penaloza PLT 186 103/ul Normal 150-450 [facility] Comment on above: Performed By: #### C BC #### [facility] [address] [place] [address] Dr. Danielle Penaloza RBC 5.01 106/ul Normal 4.20-5.40 [facility] Comment on above: Performed By: #### C BC #### [facility] [address] [place] [address] Dr. Danielle Penaloza WBC 8.1 103/ul Normal 4.0-11.0 [facility] Comment on above: Performed By: #### C BC #### [facility] [address] [place] [address] Dr. Danielle Penaloza PROF CHEM 8 (BAS METB)on Anion gap [Moles/Vol] 10.8 mmol/L Normal [facility] Comment on above: Performed By: #### B NELSY, TSH #### [facility] [address] [place] [address] Dr. Danielle Penaloza Calcium [Mass/Vol] 9.2 mg/dL Normal 8.5-10.1 [facility] Comment on above: Performed By: #### B NELSY, TSH #### [facility] [address] [place] [address] Dr. Danielle Penaloza Chloride [Moles/Vol] 103 mmol/L Normal 98-107 [facility] Comment on above: Performed By: #### B NELSY, TSH #### [facility] [address] [place] [address] Dr. Danielle Penaloza CO2 [Moles/Vol] 30.5 mmol/L Normal 21.0-32.0 [facility] Comment on above: Performed By: #### B NELSY, TSH #### [facility] [address] [place] [address] Dr. Danielle Penaloza Creatinine [Mass/Vol] 0.63 mg/dL Normal 0.55-1.02 [facility] Comment on above: Performed By: #### B NELSY, TSH #### [facility] [address] [place] [address] Dr. Danielle Penaloza EGFR-AF MAURITANIAN >60 Normal >=60 [facility] Comment on above: Performed By: #### B NELSY, TSH #### [facility] [address] [place] [address] Dr. Danielle Penaloza EGFR-NON AF MAURITANIAN >60 Normal >=60 [facility] Comment on above: Performed By: #### B NELSY, TSH #### [facility] [address] [place] [address] Dr. Danielle Penaloza Glucose [Mass/Vol] 101 mg/dL Normal 74-106 [facility] Comment on above: Performed By: #### B NELSY, TSH #### [facility] [address] [place] [address] Dr. Danielle Penaloza Potassium [Moles/Vol] 4.3 mmol/L Normal 3.5-5.1 [facility] Comment on above: Performed By: #### B MP, TSH #### [facility] [address] [place] [address] Dr. Danielle Penaloza Sodium [Moles/Vol] 140 mmol/L Normal 136-145 [facility] Comment on above: Performed By: #### B MP, TSH #### [facility] [address] [address] [address] Danielle Penaloza Urea nitrogen [Mass/Vol] 17.0 mg/dL Normal 7.0-18.0 [facility] Comment on above: Performed By: #### B MP, TSH #### [facility] [address] [place] [address] Dr. Danielle Penaloza Urea nitrogen/Creatinine [Mass ratio] 27.0 mg/mg Normal [facility] Comment on above: Performed By: #### B NELSY, TSH #### [facility] [address] [place] [address] Dr. Danielle Penaloza TSHon 09-16-2022 TSH 2.028 uIU/mL Normal 0.358-3.740 [facility] Comment on above: Performed By: #### B NELSY, TSH #### [facility] [address] [place] [address] Dr. Danielle Penaloza VC COMP CONSULTATIONon 09-16 VC COMP CONSULTATION Patient: NAYANA NOLASCOPiero Exam Date: 09/16/2022 : 1950 Gender:F Ordering : SHAIKH Quirino VILLAGRAN . Admission #: [id number] Family : Order #: [id number] CLICK HERE TO VIEW EXAM RADIOLOGY REPORT [...] arterial disease 5. CEAP: C3, AP, AP, W[place] PLAN: 1. Use of compression stockings 2. [...] M.D. on 09/16/2022 at 15:49 Normal [facility] VC VENOUS REFLUX CHARLIE LMTon 0 09-16-2022 VC VENOUS REFLUX CHARLIE LMT Patient: BERENICE NOLASCO Exam Date: 09/16/2022 : 1950 Gender:F Ordering : TcPiero VILLAGRAN . Admission #: [id number] Family : Order #: [id number] CLICK HERE TO VIEW EXAM RADIOLOGY REPORT [...] thrombus. Compressibility: Normal. Flow: Deep venous reflux. Guest Associate: Prox medial lower leg perf measures 4.3 [...] M.D. on 09/16/2022 at 15:41 Normal [facility] XR CHEST PA AND LATERALon XR CHEST [...] Degenerative changes of the thoracic spine. Normal [facility] XR Chest PA and Lateralon 01 -03-2023 Findings and impress ion: 1. No acute [...] abnormality. Degenerative changes of the thoracic spine. [facility] Radiology Study observation (narrative) [facility] XR Chest PA and LateralOrder ed By: Silvestre Rivera on 09-15-2022 [facility] Work Phone: ECHOCARDIO M/2D COMPLETEon 1 ECHOCARDIO M/2D COMPLETE Patient: BERENICE NOLASCO Exam Date: 06/22/2022 : 1950 Gender:F Ordering : SHAIKH Quirino VILLAGRAN . Admission #: [id number] Family : APOLINAR HENRY Order #: [id number] CLICK HERE TO VIEW EXAM ECHOCARDIOGRAM REPORT [...] Mc M.D. on 06/23/2022 at 14:19 Normal [facility] FASTINGon 06-16-2022 A:G RATIO 1.6 RATIO Normal 1.3-2.2 [facility] Comment on above: Performed By: #### C MPF #### Testing performed at [address] [address] ALBUMIN 4.4 G/dl Normal 3.5-5.0 [facility] Comment on above: Performed By: #### C MPF #### Testing performed at [address] [address] ALP [Catalytic activity/Vol] 124 U/L Normal 38-126 [facility] Comment on above: Performed By: #### C MPF #### Testing performed at [address] [address] ALT [Catalytic activity/Vol] 35 U/L High <35 [facility] Comment on above: Performed By: #### C MPF #### Testing performed at [address] [address] AST [Catalytic activity/Vol] 31 U/L Normal 14-36 [facility] Comment on above: Performed By: #### C MPF #### Testing performed at [address] [address] Bilirubin [Mass/Vol] 0.5 mg/dL Normal 0.2-1.3 [facility] Comment on above: Performed By: #### C MPF #### Testing performed at [address] [address] [place] [address] Calcium [Mass/Vol] 8.8 mg/dL Normal 8.4-10.2 [facility] Comment on above: Performed By: #### C MPF #### [place] [address] Chloride [Moles/Vol] 102 mmol/L Normal 98-107 [facility] Comment on above: Result Comment: Mendez caraballo note: Triglyceride levels of 600mg/dL or higher may positively bias chloride results by approximately 2.1 mmol Performed By: #### C MPF #### [place] [address] CO2 [Moles/Vol] 28 mmol/L Normal 22-30 [facility] Comment on above: Performed By: #### C MPF #### [place] [address] Creatinine [Mass/Vol] 0.60 mg/dL Low 0.7-1.2 [facility] Comment on above: Performed By: #### C MPF #### [place] [address] EST. GFR, 126 ml/min/1.73sq.m [facility] Comment on above: Performed By: #### C MPF #### [place] [address] EST. GFR,Non 104 ml/min/1.73sq.m [facility] Comment on above: Performed By: #### C MPF #### [place] [address] GFR Information Average GFR for 70+ years old = 75. [facility] Comment on above: Result Comment: Jewelry Manager kurtis Kidney disease, GFR = <60. Kidney failure, GFR = <15. The GFR estimate is not adjusted for extreme body surface area or acute process, nor has it been validated for women or ethnic groups other than and . Testing performed at [facility], [place], [place] [address] Performed By: #### C MPF #### Testing performed at [address] [address] Glucose [Mass/Vol] 98 mg/dL Normal 70-100 [facility] Comment on above: Result Comment: NORMAL <100 mg/dL PREDIABETES 101-126 mg/dL DIABETES 126 mg/dL or higher Performed By: #### C MPF #### Testing performed at [place] [address] Potassium [Moles/Vol] 4.3 mmol/L Normal 3.5-5.1 [facility] Comment on above: Performed By: #### C MPF #### Testing performed at [place] [address] Protein [Mass/Vol] 7.2 g/dL Normal 6.3-8.2 [facility] Comment on above: Performed By: #### C MPF #### Testing performed at [place] [address] Sodium [Moles/Vol] 139 mmol/L Normal 137-145 [facility] Comment on above: Performed By: #### C MPF #### Testing performed at [place] [address] Urea nitrogen [Mass/Vol] 14 mg/dL Normal 7-20 [facility] Comment on above: Performed By: #### C MPF #### Testing performed at [address] [address] FREE T3on 03-24-2022 FREE T3 2.69 pg/mlL Normal 2.18-3.98 [facility] Comment on above: Performed By: #### B MP, TSH #### [facility] [address] [place] [address] Dr. Danielle Penaloza TSHon 03-24-2022 TSH 2.001 uIU/mL Normal 0.358-3.740 [facility] Comment on above: Performed By: #### T SH, FT3 #### [facility] [address] [address] [address] Danielle Penaloza Covid-19 PCR (CVDTBH)on 02-12 SARS-CoV-2 (COVID-19) RNA ADELAIDA+probe Ql (Unsp spec) Not detected Normal NOT DETECTED [facility] Comment on above: Result Comment: This test is not yet approved or cleared by the [place] FDA. When there are no FDA-approved or cleared tests available, and other criteria are met, FDA can make tests available under an emergency access mechanism called an Emergency Use Authorization (EUA). The EUA for this test is supported by the [place] of Health and Human Service's (HHS's) declaration [...] consistent with SARS-CoV-2. Performed By: #### [facility] #### [facility] [address] [place] [address] Dr. Danielle Penaloza Operative Reporton 0 Operative Report MR#: [id number] [facility] Pt. Name: Berenice Nolasoc Room #: 0C Discharge Date: Birthdate: 1950 OPERATIVE REPORT DATE OF SURGERY: 06/07/2020 SURGEON: Adam Skinner M.D. PREOPERATIVE DIAGNOSIS: Right knee medial and lateral meniscal tears. POSTOPERATIVE DIAGNOSES: 1. Right knee medial and lateral meniscal tears. 2. Right knee Hoffa's fat pad hypertrophy and inflammation. PRINCIPAL CLOUD ARCHITECT: Bindu Rick M.D. ANESTHESIA: General. PROCEDURES PERFORMED: [...] Skinner M.D. Date Trans: 06/07/2020 09:06 A/irena DN_JN:[id number] cc: Trino Montiel M.D. [address] [facility] [address] Normal [facility] POC GLUCOSE LABon 06-07-2020 Glucose [Mass/Vol] 109 mg/dL High 70-100 [facility] Comment on above: Performed By: #### 8 5499 #### [facility] [address] *SARS-CoV-2 COVID-19on 06-04 [id number] Not Detected Normal Not Detected [facility] Comment on above: Order Comment: The A ptima SARS-CoV-2 assay is a nucleic acid amplification test intended for the qualitative detection of RNA from SARS-CoV-2 isolated and purified from nasopharyngeal (COOLING TOWER TECHNICIAN),oropharyngeal (OP), nasal swab, sputum, and bronchoalveolar lavage (BAL) specimens from patients with signs and symptoms of infection who are suspected of COVID-19. Results are for the identification of SARS-CoV-2 RNA. The SARS-CoV-2 RNA is generally detectable during the acute phase of infection. The Aptima SARS-CoV-2 Assay on the [employer] and [employer] Fusion system is intended for use by laboratory personnel specifically instructed and trained in the operation of the Ridge and [employer] Fusion system. The Aptima SARS-CoV-2 assay is [...] information. Performed By: #### 3 1792 #### [address] [place] [address], [facility] KNEE RIGHT 3 [facility] 0 KNEE RIGHT 3 [facility] Department of Radiology [address] [place] [phone] Patient Name: BERENICE NOLASCO : 1950 Sex: F Age: Race: White Pt. Location: Patient Status: O Ordered Date: 01/22/2020 11:35:00 AM Completed Date: 01/22/2020 11:43 AM Requesting Provider: ADAM SKINNER Attending Provider: ADAM SKINNER Report Copy To: TRINO MONTIEL Signs & Symptoms: S83.281A Oth tear of lat mensc, current injury, right knee, init I10 History: [place] Comments: Exam: KNEE RIGHT 3 [facility] KNEE RIGHT 3 S 01/22/2020 11:43 [...] reports Electronically signed: DELANO BLANCO. Transcribed by: [email or web address], User Resident: YONY PAN Electronically Signed by: DELANO BLANCO @ 01/22/2020 02:18 PM I personally read this/these film(s) with this resident Normal [facility] ED PROV NOTEon 08-06-2018 Protein mass conc HNO ID: [id number] thor: Cas Kernice: (none)Author Type: PhysicianType: ED Provider NotesFiled: 08/13/2018 10:43 AMNote Text:[place], [place] [address]ISIYEA INFORMATION MANAGEMENTEMERGENCY DEPARTMENT REPORTPatient: BERENICE NOLASCO JOEL A M.D. as dictated by GRUPO BROUSSARD, MELINA-[id number] FStatus: [facility] EDDate of Service: 08/05/18CHIEF COMPLAINTThis is a [...] paresthesia. No weakness of extremities. She ambulates [facility].PHYSICAL EXAMINATIONHer blood pressure is 122/77, temperature [...] Reported By: CAS CANTU M.D. Signed By: ACS CANTU M.D.Tests performed at:[address] [phone] Normal [facility] ED REPORTon 08-06-2018 ED REPORT [place], [place] [address]LBGDXT INFORMATION MANAGEMENTEMERGENCY DEPARTMENT REPORTPatient: BERENICE NOLASCO JOEL A M.D. as dictated by GRUPO BROUSSARD NP-[id number][birth year] 68 FStatus: [facility] EDDate of Service: 08/05/18CHIEF COMPLAINTThis is a [...] of the plan of care will be dischargedNisha stauffer sinusitis. 08/13/18 1027 CAS CANTU M.D.cc: CAS CANTU M.D. << Signature on File>> Reported By: CAS CANTU M.D. Signed By: CAS CANTU M.D.Tests performed at:[address] [phone] [facility] BCon 08-05-2018 No Growth [facility] Comment on above: Performed By: #### L 100.0440 ####[facility] GIHIMOPAXK[address] [place] [address] No Growth Normal [facility] Comment on above: Performed By: #### M 105.0000 #### - HIKNJIZWXD[address] [place] [address] [facility] Anion gap 3 molar conc 17.5 mmol/L Normal 15-22 [facility] Comment on above: Performed By: #### L 100.0010, L301.0120 ####ML - HSNILMLAPT697 [place] [address] Calcium mass conc 8.7 mg/dL Low 8.8-10.2 [facility] Comment on above: Performed By: #### L 100.0010, L301.0120 ####[facility] CUNKOIYSQL[address] [place] [address] Chloride molar conc 101 mmol/L Normal 98-107 [facility] Comment on above: Performed By: #### L 100.0010, L301.0120 ####[facility] KNIGHTVHKS506 [place] [address] Creatinine mass conc 0.53 mg/dL Normal 0.50-0.90 [facility] Comment on above: Performed By: #### L 100.0010, L301.0120 ####[facility] [place] [address] eGFR if AFR MELISSA > 60 ml/min/1.73m2 Normal [facility] Comment on above: Result Comment: eGFR >= 60 Indicates normal kidney function. * eGFR IS AN ESTIMATE * (AFR MELISSA = ) (non-AFR AM = NON-) ____ MDRD calculation used in the eGFR should not be used to dose medications. For further limitations of the eGFR please refer to the Physician Website or the National Kidney Disease Education Program website (www.nkdep.nih.gov). Performed By: #### L 100.0010, L301.0120 ####[facility] X[address]UHY[address] [place] [address] eGFR nonAFR Melissa > 60 ml/Min/1.73m2 Normal [facility] Comment on above: Performed By: #### L 100.0010, L301.0120 ####[facility] ODERNBBDUF[address] [place] [address] Glucose mass conc 122 mg/dL High 82-115 [facility] Comment on above: Performed By: #### L 100.0010, L301.0120 ####[facility] MCAFUJMUEY[address] [place] [address] Potassium molar conc 3.5 mmol/L Normal 3.5-5.0 [facility] Comment on above: Performed By: #### L 100.0010, L301.0120 ####[facility] [place] [address] Sodium molar conc 138 mmol/L Normal 135-145 [facility] Comment on above: Performed By: #### L 100.0010, L301.0120 ####[facility] R[address]KJ[address] [place] [address] TCO2 23 mmol/L Normal 22-29 [facility] Comment on above: Performed By: #### L 100.0010, L301.0120 ####ML [facility] CFQJQUBAZS[address] [place] [address] Urea nitrogen mass conc 14 mg/dL Normal 8-23 [facility] Comment on above: Performed By: #### L 100.0010, L301.0120 ####ML [facility] ZUXXFYPHVQ[address] [place] [address] CBCon 08-05-2018 Basophils Auto #/vol (Bld) 0.00 x10(3) Normal 0.00-0.10 [facility] Comment on above: Performed By: #### L 200.0010 ####[address] [address] Basophils/100 WBC Auto (Bld) 0.2 % Normal 0.0-1.0 [facility] Comment on above: Performed By: #### L 200.0010 ####[address] [address] Eosinophils Auto #/vol (Bld) 0.00 x10(3) Normal 0.00-0.54 [facility] Comment on above: Performed By: #### L 200.0010 ####[facility] SNWNRINYAB[address] [place] [address] Eosinophils/100 WBC Auto (Bld) 0.1 % Low 0.5-4.9 [facility] Comment on above: Performed By: #### L 200.0010 ####[address] [address] Erythrocyte distribution width Auto Ratio (RBC) 15.7 % Normal 12.5-15.7 [facility] Comment on above: Performed By: #### L 200.0010 ####[facility] RWLEUKXJIF[address] [place] [address] Hematocrit Auto Volume Fraction (Bld) 39.4 % Normal 36.0-48.0 [facility] Comment on above: Performed By: #### L 200.0010 ####[address] [address] Hemoglobin mass conc (Bld) 13.8 g/dL Normal 12.0-16.0 [facility] Comment on above: Performed By: #### L 200.0010 ####[address] [address] Lymphocytes Auto #/vol (Bld) 0.50 x10(3) Low 1.00-3.50 [facility] Comment on above: Performed By: #### L 200.0010 ####[address] [address] Lymphocytes/100 WBC Auto (Bld) 7.8 % Low 16.0-48.0 [facility] Comment on above: Performed By: #### L 200.0010 ####[address] [address] MCH Auto Entitic mass (RBC) 27.6 pg Low 28.5-32.9 [facility] Comment on above: Performed By: #### L 200.0010 ####[address] [address] MCHC Auto mass conc (RBC) 35.1 g/dL Normal 33.0-36.0 [facility] Comment on above: Performed By: #### L 200.0010 ####[address] [address] MCV Auto Entitic volume (RBC) 78.7 fL Low 80.0-99.0 [facility] Comment on above: Performed By: #### L 200.0010 ####[address] [address] Monocytes Auto #/vol (Bld) 0.40 x10(3) Normal 0.30-0.80 [facility] Comment on above: Performed By: #### L 200.0010 ####[address] [address] Monocytes/100 WBC Auto (Bld) 5.4 % Normal 4.3-11.2 [facility] Comment on above: Performed By: #### L 200.0010 ####ML [address] [address] Neutrophils Auto #/vol (Bld) 5.70 x10(3) Normal 1.40-6.50 [facility] Comment on above: Performed By: #### L 200.0010 ####ML [address] [address] Neutrophils/100 WBC Auto (Bld) 86.5 % High 45.0-73.0 [facility] Comment on above: Performed By: #### L 200.0010 ####ML [address] [address] Platelet mean volume Auto Entitic volume (Bld) 8.1 fL Normal 7.5-9.5 [facility] Comment on above: Performed By: #### L 200.0010 ####ML [address] [address] Platelets Auto #/vol (Bld) 115 X10(3) Low 150-450 [facility] Comment on above: Performed By: #### L 200.0010 ####ML [address] [address] RBC Auto #/vol (Bld) 5.00 x10(6) Normal 3.30-5.00 [facility] Comment on above: Performed By: #### L 200.0010 ####ML [address] [address] WBC Auto #/vol (Bld) 6.6 x10(3) Normal 4.5-10.0 [facility] Comment on above: Performed By: #### L 200.0010 ####ML [address] [address] CHEST (TWO VIEWS) - CXRon CHEST (TWO VIEWS) - CXR [address] [address]Xyrq: BERENICE NOLASCO [facility]: GRUPO BROUSSARD 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 History of right mastectomyComparison study: NoneFindings:The heart size is normal. The left diaphragm is elevated. There is nopulmonary consolidation. No pneumothorax. Multilevel degenerative changes seenin the spine. Surgical clips identified in the right axilla.Impression:Elevated left diaphragm. No focal consolidationProfessional interpretation provided by [facility]-60.Thank you for this referral.< >Reported By: XANDER MARTINEZ M.D.Signed In NovaPro By: XANDER MARTINEZ M.D. << Signature on File>> Reported By: XANDER MARTINEZ M.D. 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 << Signature on File>> Reported By: XANDER MARTINEZ M.D. Signed By: XANDER MARTINEZ M.D.Tests performed at:[address] [phone] Normal [facility] ED PROV NOTEon 08-05-2018 Protein mass conc HNO ID: [id number] thor: Cas Kernice: (none)Author Type: PhysicianType: ED Provider NotesFiled: 08/13/2018 10:42 AMNote Text:[place], [place] [address]HQVTRE INFORMATION MANAGEMENTEMERGENCY DEPARTMENT REPORTPatient: BERENICE NOLASCO JOEL A M.D.[id number] 68 FStatus: DEP ER EDDate of Service: [...] are downgoing. There is no pronator drift. Tngionapytdv-vb-edvo, krpq-dk-qlsu.EMERGENCY DEPARTMENT COURSESent for CT which was negative. Labs were all pretty much negative and noUTI.CLINICAL DIAGNOSISCephalgia.PLANDisc harged to home to follow up with the family doctor and return ifproblems of any kind. She is treated for what is presumed to be a sinusinfection as well with antibiotics. She can return if worse or problemsof any kind. 08/13/18 1027 JEREMIAS CANTU M.D.cc: CAS CANTU M.D. << Signature on File>> Reported By: CAS CANTU M.D. Signed By: CAS CANTU M.D.Tests performed at:[address] [phone] Normal [facility] EMERGENCY DEPARTMENT REPORTo n 08-05-2018 EMERGENCY DEPARTMENT REPORT [place] [address]BVNJZC INFORMATION MANAGEMENTEMERGENCY DEPARTMENT REPORTPatient: BERENICE NOLASCO JOEL A M.D.[id number][birth year] 68 FStatus: DEP ER EDDate of Service: [...] are downgoing. There is no pronatordrift. Normal fjerqo-jf-zuel, bnmm-uf-uyzt.EMERGENCY DEPARTMENT COURSESent for CT which was negative. Labs were all pretty much negative and no UTI.CLINICAL DIAGNOSISCephalgia.PLANDisc harged to home to follow up with the family doctor and return if problems of any kind.She is treated for what is presumed to be a sinus infection as well with antibiotics. Shecan return if worse or problems of any kind. 08/13/18 1027 JEREMIAS CANTU M.D.cc: CAS CANUT M.D. << Signature on File>> Reported By: CAS CANTU M.D. Signed By: CAS CANTU M.D.Tests performed at:[address] [phone] [facility] FLU A & Bon 08-05-2018 FLU A Negative Normal NEGATIVE [facility] Comment on above: Order Comment: What is the source+ SWAB Performed By: #### L 400.0006 ####ML - [facility] [address] [address] FLU B Negative Normal NEGATIVE [facility] Comment on above: Order Comment: What is the source+ SWAB Result Comment: Infe ction due to Flu A and Flu B can not be ruled out. Flu Aand/or Flu B antigen in the sample may be below detectionlimit of the test. The gold standard for Flu A and Flu B vicente viral culture. Performed By: #### L 400.0006 ####[facility] [place] [address] LACTIC ACIDon 08-05-2018 Lactate molar conc 0.8 mmol/L Normal 0.5-2.0 [facility] Comment on above: Performed By: #### L 100.0440 ####[address] [address] TROPONIN Ton 08-05-2018 Troponin T.cardiac mass conc ug/L Normal 0-0.010 [facility] Comment on above: Performed By: #### L 100.0010, L301.0120 ####[address] [address] UA W/C&Son 08-05-2018 Bilirubin Ql (U) Negative Normal NEGATIVE [facility] Comment on above: Order Comment: Urine Specimen Source+ CLEAN CATCH Performed By: #### L 200.3001 ####ML [address] [address] Color Nom (U) YELLOW Normal YELLOW [facility] Comment on above: Order Comment: Urine Specimen Source+ CLEAN CATCH Performed By: #### L 200.3001 ####[address] [address] Glucose Ql (U) Negative Normal NEGATIVE [facility] Comment on above: Order Comment: Urine Specimen Source+ CLEAN CATCH Performed By: #### L 200.3001 ####ML [address] [address] Hemoglobin Test strip Ql (U) Negative Normal NEGATIVE [facility] Comment on above: Order Comment: Urine Specimen Source+ CLEAN CATCH Performed By: #### L 200.3001 ####ML [address] [address] Leukocyte esterase Test strip Ql (U) Negative Normal NEGATIVE [facility] Comment on above: Order Comment: Urine Specimen Source+ CLEAN CATCH Performed By: #### L 200.3001 ####[address] [place] [address] Nitrite Test strip Ql (U) Negative Normal NEGATIVE [facility] Comment on above: Order Comment: Urine Specimen Source+ CLEAN CATCH Performed By: #### L 200.3001 ####ML - [facility] [id number] [place] [address] pH Test strip (U) 6.0 [pH] Normal 5.0-8.0 [facility] Comment on above: Order Comment: Urine Specimen Source+ CLEAN CATCH Performed By: #### L 200.3001 ####ML - [id number] [place] [address] Protein Test strip Ql (U) Negative Normal NEGATIVE [facility] Comment on above: Order Comment: Urine Specimen Source+ CLEAN CATCH Performed By: #### L 200.3001 ####ML - [id number] [place] [address] URINE APPEARANC CLEAR Normal CLEAR [facility] Comment on above: Order Comment: Urine Specimen Source+ CLEAN CATCH Performed By: #### L 200.3001 ####ML - [id number] [place] [address] URINE KETONE Negative Normal NEGATIVE [facility] Comment on above: Order Comment: Urine Specimen Source+ CLEAN CATCH Performed By: #### L 200.3001 ####ML - [id number] [place] [address] URINE SPECIFIC <=1.005 Normal 1.001-1.035 [facility] Comment on above: Order Comment: Urine Specimen Source+ CLEAN CATCH Performed By: #### L 200.3001 ####ML - [id number] [place] [address] URINE UROBILINO 0.2 EU/DL Normal 0.2-1.0 [facility] Comment on above: Order Comment: Urine Specimen Source+ CLEAN CATCH Performed By: #### L 200.3001 ####ML - [id number] [place] [address] Coding Summary.on 07-28-2017 Coding Summary. CODING DATE: 017 [facility] STATUS: PAYOR: Medicare ADMIT DX: REASON [...] Viv Good Date Saved: 07/28/2017 10:55 am [facility] Vital Signs Date Time Vital Sign Value Performing Clinician Facility 01-21-2024 14:06-0400 Body temperature 96.9 [degF] Dr. Shaikh Villagran Work Phone: [facility] 01-21-2024 14:06-0400 Diastolic blood pressure 79 mm[Hg] Dr. Shaikh Villagran Work Phone: [facility] 01-21-2024 14:06-0400 Heart rate 82 /min Dr. Shaikh Villagran Work Phone: [facility] 01-21-2024 14:06-0400 Respiratory rate 16 /min Dr. Shaikh Villagran Work Phone: [facility] 01-21-2024 14:06-0400 SaO2% (BldA) [Mass fraction] 94 % Dr. Shaikh Villagran Work Phone: [facility] 01-21-2024 14:06-0400 Systolic blood pressure 125 mm[Hg] Dr. Shaikh Villagran Work Phone: [facility] 01-21-2024 11:45-0400 Inhaled oxygen flow rate 2 L/min Dr. Shaikh Villagran Work Phone: [facility] 01-21-2024 06:23-0400 Body height 167.[address] Shaikh Villagran Work Phone: [facility] 01-21-2024 06:23-0400 Body mass index (BMI) [Ratio] 32.5 kg/m2 Dr. Shaikh Villagran Work Phone: [facility] 01-21-2024 06:23-0400 Body weight 91.[address] Shaikh Villagran Work Phone: [facility] 01-05-2024 14:51-0400 Body mass index (BMI) [Ratio] 31.8 kg/m2 Dr. Shaikh Villagran Work Phone: [facility] 01-05-2024 14:51-0400 Body temperature 98.1 [degF] Dr. Shaikh Villagran Work Phone: [facility] 01-05-2024 14:51-0400 Body weight 89.[address] Shaikh Villagran Work Phone: [facility] 01-05-2024 14:51-0400 Diastolic blood pressure 84 mm[Hg] Dr. Shaikh Villagran Work Phone: [facility] 01-05-2024 14:51-0400 Heart rate 71 /min Dr. Shaikh Villagran Work Phone: [facility] 01-05-2024 14:51-0400 Respiratory rate 16 /min Dr. Shaikh Villagran Work Phone: [facility] 01-05-2024 14:51-0400 SaO2% (BldA) [Mass fraction] 93 % Dr. Shaikh Villagran Work Phone: [facility] 01-05-2024 14:51-0400 Systolic blood pressure 124 mm[Hg] Dr. Shaikh Villagran Work Phone: [facility] 12-22-2023 14:33-0400 Body height 167.[address] Apolinar Henry Work Phone: [facility] 12-22-2023 14:33-0400 Body mass index (BMI) [Ratio] 32.6 kg/m2 Dr. Apolinar Henry Work Phone: [facility] 12-22-2023 14:33-0400 Body temperature 98.8 [degF] Dr. Apolinar Henry Work Phone: [facility] 12-22-2023 14:33-0400 Body weight 91.[address] Apolinar Henry Work Phone: [facility] 12-22-2023 14:33-0400 Diastolic blood pressure 76 mm[Hg] Dr. Apolinar Henry Work Phone: [facility] 12-22-2023 14:33-0400 Heart rate 71 /min Dr. Apolinar Henry Work Phone: [facility] 12-22-2023 14:33-0400 Respiratory rate 16 /min Dr. Apolinar Henry Work Phone: [facility] 12-22-2023 14:33-0400 SaO2% (BldA) [Mass fraction] 92 % Dr. Apolinar Henry Work Phone: [facility] 12-22-2023 14:33-0400 Systolic blood pressure 129 mm[Hg] Dr. Apolinar Henry Work Phone: [facility] 12-14-2023 15:53-0400 Body height 167.[address] Apolinar Henry Work Phone: [facility] 12-14-2023 15:53-0400 Body mass index (BMI) [Ratio] 32.3 kg/m2 Dr. Apolinar Henry Work Phone: [facility] 12-14-2023 15:53-0400 Body temperature 97.9 [degF] Dr. Apolinar Henry Work Phone: [facility] 12-14-2023 15:53-0400 Body weight 90.[address] Apolinar Henry Work Phone: [facility] 12-14-2023 15:53-0400 Diastolic blood pressure 83 mm[Hg] Dr. Apolinar Henry Work Phone: [facility] 12-14-2023 15:53-0400 Heart rate 70 /min Dr. Apolinar Henry Work Phone: [facility] 12-14-2023 15:53-0400 Respiratory rate 16 /min Dr. Apolinar Henry Work Phone: [facility] 12-14-2023 15:53-0400 SaO2% (BldA) [Mass fraction] 95 % Dr. Apolinar Henry Work Phone: [facility] 12-14-2023 15:53-0400 Systolic blood pressure 128 mm[Hg] Dr. Apolinar Henry Work Phone: [facility] 11-01-2023 12:53-0500 Body height 167.64 cm MD Shaikh Villagran Work Phone: [facility] 11-01-2023 12:53-0500 Body mass index (BMI) [Ratio] 32.9 kg/m2 MD Shaikh Villagran Work Phone: [facility] 11-01-2023 12:53-0500 Body weight 92.58 kg MD Shaikh Villagran Work Phone: [facility] 11-01-2023 12:53-0500 Diastolic blood pressure 86 mm[Hg] MD Shaikh Villagran Work Phone: [facility] 11-01-2023 12:53-0500 Heart rate 71 /min MD Shaikh Villagran Work Phone: [facility] 11-01-2023 12:53-0500 Respiratory rate 18 /min MD Shaikh Villagran Work Phone: [facility] 11-01-2023 12:53-0500 SaO2% (BldA) [Mass fraction] 95 % MD Shaikh Villagran Work Phone: [facility] 11-01-2023 12:53-0500 Systolic blood pressure 127 mm[Hg] MD Shaikh Villagran Work Phone: [facility] 08-30-2023 10:00-0500 Body height 167.64 cm MD Shaikh Villagran Work Phone: [facility] 08-30-2023 10:00-0500 Body weight 91.98 kg MD Shaikh Villagran Work Phone: [facility] 08-30-2023 10:00-0500 Diastolic blood pressure 87 mm[Hg] MD Shaikh Villagran Work Phone: [facility] 08-30-2023 10:00-0500 Systolic blood pressure 134 mm[Hg] MD Shaikh Villagran Work Phone: [facility] 07-21-2023 13:00-0500 Body height 167.64 cm Adriana Fitt Other [employer] Other 07-21-2023 13:00-0500 Body mass index (BMI) [Ratio] 33.52 kg/m2 Adriana Fitt Other [employer] Other 07-21-2023 13:00-0500 Body weight 94.21 kg Adriana Fitt Other [employer] Other 07-05-2023 14:15-0400 Body height 167.64 cm Susanneher Retanaler Other [employer] Other 07-05-2023 14:15-0400 Body mass index (BMI) [Ratio] 33.62 kg/m2 Susanne Missler Other [employer] Other 07-05-2023 14:15-0400 Body weight 94.48 kg Susanne Missler Other [employer] Other 07-05-2023 14:15-0400 Diastolic blood pressure 87 mm[Hg] Susanne Missler Other [employer] Other 07-05-2023 14:15-0400 Respiratory rate 18 /min Susanne Missler Other [employer] Other 07-05-2023 14:15-0400 SaO2% (BldA) [Mass fraction] 93 % Susanne Missler Other [employer] Other 07-05-2023 14:15-0400 Systolic blood pressure 133 mm[Hg] Susanne Missler Other [employer] Other 06-30-2023 15:08-0400 Body height 167.[address] Apolinar Henry Work Phone: [facility] 06-30-2023 15:08-0400 Body mass index (BMI) [Ratio] 33.5 kg/m2 Dr. Apolinar Henry Work Phone: [facility] 06-30-2023 15:08-0400 Body temperature 97.3 [degF] Dr. Apolinar Henry Work Phone: [facility] 06-30-2023 15:08-0400 Body weight 94.[address] Apolinar Henry Work Phone: [facility] 06-30-2023 15:08-0400 Diastolic blood pressure 81 mm[Hg] Dr. Apolinar Henry Work Phone: [facility] 06-30-2023 15:08-0400 Heart rate 65 /min Dr. Apolinar Henry Work Phone: [facility] 06-30-2023 15:08-0400 Respiratory rate 16 /min Dr. Apolinar Henry Work Phone: [facility] 06-30-2023 15:08-0400 SaO2% (BldA) [Mass fraction] 94 % Dr. Apolinar Henry Work Phone: [facility] 06-30-2023 15:08-0400 Systolic blood pressure 135 mm[Hg] Dr. Apolinar Henry Work Phone: [facility] 05-27-2023 10:00-0400 Body height 167.64 cm [employer] Other [employer] Other 05-27-2023 10:00-0400 Body mass index (BMI) [Ratio] 34.65 kg/m2 [employer] Other [employer] Other 05-27-2023 10:00-0400 Body weight 97.39 kg [employer] Other [employer] Other 05-05-2023 14:25-0400 Body height 167.[address] Apolinar Henry Work Phone: [facility] 05-05-2023 14:25-0400 Body mass index (BMI) [Ratio] 35 kg/m2 Dr. Apolinar Henry Work Phone: [facility] 05-05-2023 14:25-0400 Body temperature 97.7 [degF] Dr. Apolinar Henry Work Phone: [facility] 05-05-2023 14:25-0400 Body weight 98.[address] Apolinar Henry Work Phone: [facility] 05-05-2023 14:25-0400 Diastolic blood pressure 78 mm[Hg] Dr. Apolinar Henry Work Phone: [facility] 05-05-2023 14:25-0400 Heart rate 70 /min Dr. Apolinar Henry Work Phone: [facility] 05-05-2023 14:25-0400 Respiratory rate 16 /min Dr. Apolinar Henry Work Phone: [facility] 05-05-2023 14:25-0400 SaO2% (BldA) [Mass fraction] 96 % Dr. Apolinar Henry Work Phone: [facility] 05-05-2023 14:25-0400 Systolic blood pressure 120 mm[Hg] Dr. Apolinar Henry Work Phone: [facility] 03-15-2023 12:45-0400 Body height 167.64 cm Susanne Missler Other [employer] Other 03-15-2023 12:45-0400 Body mass index (BMI) [Ratio] 36.42 kg/m2 Susanne Missler Other [employer] Other 03-15-2023 12:45-0400 Body weight 102.38 kg Susanne Missler Other [employer] Other 03-15-2023 12:45-0400 Diastolic blood pressure 84 mm[Hg] Susanne Missler Other [employer] Other 03-15-2023 12:45-0400 Respiratory rate 18 /min Susanne Missler Other [employer] Other 03-15-2023 12:45-0400 SaO2% (BldA) [Mass fraction] 96 % Susanne Missler Other [employer] Other 03-15-2023 12:45-0400 Systolic blood pressure 131 mm[Hg] Susanne Jordan Other [facility] [employer] Other 11-18-2022 14:58-0500 Body height 167.6 cm Apolinar Henry MD Work Phone: 1(501)673-354585 [place] [address] 11-18-2022 14:58-0500 Body temperature 97 [degF] Apolinar Henry MD Work Phone: 1(568)625-952585 [place] [address] 11-18-2022 14:58-0500 Diastolic blood pressure 83 mm[Hg] Apolinar Henry MD Work Phone: 3(297)349-269485 [place] [address] 11-18-2022 14:58-0500 Heart rate 78 /min Apolinar Henry MD Work Phone: 4(825)231-452385 [place] [address] 11-18-2022 14:58-0500 Systolic blood pressure 143 mm[Hg] Apolinar Henry MD Work Phone: 4(316)082-248585 [place] [address] 10-21-2022 13:46-0500 Body height 167.6 cm Apolinar Henry MD Work Phone: 4(221)655-602785 [place] [address] 10-21-2022 13:46-0500 Body temperature 97.3 [degF] Apolinar Henry MD Work Phone: 8(657)241-591285 [place] [address] 10-21-2022 13:46-0500 Diastolic blood pressure 86 mm[Hg] Apolinar Henry MD Work Phone: 1(925)462-826185 [place] [address] 10-21-2022 13:46-0500 Heart rate 76 /min Apolinar Henry MD Work Phone: 4(559)890-376944 [place] [address] 10-21-2022 13:46-0500 Systolic blood pressure 142 mm[Hg] Apolinar Henry MD Work Phone: 9(324)977-172885 [place] [address] 10-07-2022 14:27-0500 Body height 167.6 cm Apolinar Henry MD Work Phone: 2(636)067-921885 [place] [address] 10-07-2022 14:27-0500 Body temperature 97.9 [degF] Apolinar Henry MD Work Phone: 2(191)750-446585 [place] [address] 10-07-2022 14:27-0500 Diastolic blood pressure 81 mm[Hg] Apolinar Henry MD Work Phone: 6(913)818-915985 [place] [address] 10-07-2022 14:27-0500 Heart rate 74 /min Apolinar Henry MD Work Phone: 7(280)360-333185 [place] [address] 10-07-2022 14:27-0500 Systolic blood pressure 140 mm[Hg] Apolinar Henry MD Work Phone: 3(466)751-622585 [place] [address] 09-23-2022 14:36-0500 Body height 167.6 cm Apolinar Henry MD Work Phone: 6(880)337-434785 [place] [address] 09-23-2022 14:36-0500 Body mass index (BMI) [Ratio] 35.83 kg/m2 Apolinar Henry MD Work Phone: 5(746)338-050285 [place] [address] 09-23-2022 14:36-0500 Body temperature 97.3 [degF] Apolinar Henry MD Work Phone: 1(731)962-810485 [place] [address] 09-23-2022 14:36-0500 Body weight 100.7 kg Apolinar Henry MD Work Phone: 1(555)388-521685 [place] [address] 09-23-2022 14:36-0500 Diastolic blood pressure 97 mm[Hg] Apolinar Henry MD Work Phone: 1(664)452-072785 [place] [address] 09-23-2022 14:36-0500 Heart rate 82 /min Apolinar Henry MD Work Phone: 7(979)783-414085 [place] [address] 09-23-2022 14:36-0500 Systolic blood pressure 152 mm[Hg] Apolinar Henry MD Work Phone: 7(661)448-412885 [place] [address] 08-12-2022 15:03-0500 Body height 167.6 cm Apolinar Henry MD Work Phone: 8(819)151-732185 [place] [address] 08-12-2022 15:03-0500 Body mass index (BMI) [Ratio] 35.83 kg/m2 Apolinar Henry MD Work Phone: 1(687)905-431485 [place] [address] 08-12-2022 15:03-0500 Body temperature 96.69 [degF] Apolinar Henry MD Work Phone: 1(522)994-396985 [place] [address] 08-12-2022 15:03-0500 Body weight 100.7 kg Apolinar Henry MD Work Phone: 7(970)969-096585 [place] [address] 08-05-2022 14:20-0500 Body height 167.6 cm Apolinar Henry MD Work Phone: 3(232)432-129685 [place] [address] 08-05-2022 14:20-0500 Body mass index (BMI) [Ratio] 35.83 kg/m2 Apolinar Henry MD Work Phone: 5(154)323-259385 [place] [address] 08-05-2022 14:20-0500 Body temperature 97.2 [degF] Apolinar Henry MD Work Phone: 4(964)071-026885 [place] [address] 08-05-2022 14:20-0500 Body weight 100.7 kg Apolinar Henry MD Work Phone: 2(093)406-030585 [place] [address] 08-05-2022 14:20-0500 Diastolic blood pressure 90 mm[Hg] Apolinar Henry MD Work Phone: 2(697)062-279185 [place] [address] 08-05-2022 14:20-0500 Heart rate 75 /min Apolinar Henry MD Work Phone: 0(000)230-148785 [place] [address] 08-05-2022 14:20-0500 Systolic blood pressure 156 mm[Hg] Apolinar Henry MD Work Phone: 1(807)134-439285 [place] [address] 07-22-2022 13:23-0500 Body height 167.6 cm Apolinar Henry MD Work Phone: 5(138)629-668385 [place] [address] 07-22-2022 13:23-0500 Body mass index (BMI) [Ratio] 35.83 kg/m2 Apolinar Henry MD Work Phone: 8(454)340-477685 [place] [address] 07-22-2022 13:23-0500 Body temperature 97.81 [degF] Apolinar Henry MD Work Phone: 5(071)378-406685 [place] [address] 07-22-2022 13:23-0500 Body weight 100.7 kg Apolinar Henry MD Work Phone: 1(365)210-175285 [place] [address] 07-22-2022 13:23-0500 Diastolic blood pressure 80 mm[Hg] Apolinar Henry MD Work Phone: 4(314)930-831585 [place] [address] 07-22-2022 13:23-0500 Heart rate 69 /min Apolinar Henry MD Work Phone: 3(832)874-504785 [place] [address] 07-22-2022 13:23-0500 Systolic blood pressure 133 mm[Hg] Apolinar Henry MD Work Phone: 5(704)608-006485 [place] [address] 07-15-2022 13:33-0400 Body height 167.6 cm Apolinar Henry MD Work Phone: 2(452)028-678185 [place] [address] 07-15-2022 13:33-0400 Body mass index (BMI) [Ratio] 35.83 kg/m2 Apolinar Henry MD Work Phone: 6(199)615-974085 [place] [address] 07-15-2022 13:33-0400 Body temperature 97.9 [degF] Apolinar Henry MD Work Phone: 8(474)301-587085 [place] [address] 07-15-2022 13:33-0400 Body weight 100.7 kg Apolinar Henry MD Work Phone: 8(773)031-668685 [place] [address] 07-15-2022 13:33-0400 Diastolic blood pressure 83 mm[Hg] Apolinar Henry MD Work Phone: 3(277)269-214285 [place] [address] 07-15-2022 13:33-0400 Heart rate 75 /min Apolinar Henry MD Work Phone: 2(277)976-866985 [place] [address] 07-15-2022 13:33-0400 Systolic blood pressure 140 mm[Hg] Apolinar Henry MD Work Phone: 0(424)154-228185 [place] [address] 07-09-2022 16:55-0400 Diastolic blood pressure 79 mm[Hg] Apolinar Henry MD Work Phone: 2(419)809-827285 [place] [address] 07-09-2022 16:55-0400 Heart rate 87 /min Apolinar Henry MD Work Phone: 1(624)977-501185 [place] [address] 07-09-2022 16:55-0400 Respiratory rate 18 /min Apolinar Henry MD Work Phone: 5(921)585-653785 [place] [address] 07-09-2022 16:55-0400 SaO2% (BldA) [Mass fraction] 97 % Apolinar Henry MD Work Phone: 5(297)980-194285 [place] [address] 07-09-2022 16:55-0400 Systolic blood pressure 149 mm[Hg] Apolinar Henry MD Work Phone: 0(062)049-658185 [place] [address] 07-09-2022 15:05-0400 Body temperature 97.3 [degF] Apolinar Henry MD Work Phone: 9(422)940-504785 [place] [address] 07-09-2022 08:58-0400 Body height 167.6 cm Apolinar Henry MD Work Phone: 9(469)820-137085 [place] [address] 07-09-2022 08:58-0400 Body mass index (BMI) [Ratio] 35.83 kg/m2 Apolinar Henry MD Work Phone: 8(758)528-790685 [place] [address] 07-09-2022 08:58-0400 Body weight 100.7 kg Apolinar Henry MD Work Phone: 9(245)108-254485 [place] [address] 06-30-2022 14:44-0400 Body height 167.6 cm Apolinar Henry MD Work Phone: 4(716)028-202885 [place] [address] 06-30-2022 14:44-0400 Body mass index (BMI) [Ratio] 35.83 kg/m2 Apolinar Henry MD Work Phone: 3(493)909-660244 [place] [address] 06-30-2022 14:44-0400 Body temperature 97.7 [degF] Apolinar Henry MD Work Phone: 3(502)115-277185 [place] [address] 06-30-2022 14:44-0400 Body weight 100.7 kg Apolinar Henry MD Work Phone: 6(048)933-918785 [place] [address] 06-30-2022 14:44-0400 Diastolic blood pressure 97 mm[Hg] Apolinar Henry MD Work Phone: 4(246)710-494485 [place] [address] 06-30-2022 14:44-0400 Heart rate 119 /min Apolinar Henry MD Work Phone: 7(871)057-447285 [place] [address] 06-30-2022 14:44-0400 Systolic blood pressure 148 mm[Hg] Apolinar Henry MD Work Phone: 2(743)423-116985 [place] [address] 06-16-2022 11:36-0400 Body height 167.6 cm Apolinar Henry MD Work Phone: 0(945)344-770685 [place] [address] 06-16-2022 11:36-0400 Body mass index (BMI) [Ratio] 35.99 kg/m2 Apolinar Henry MD Work Phone: 8(788)102-909985 [place] [address] 06-16-2022 11:36-0400 Body temperature 97.5 [degF] Apolinar Henry MD Work Phone: 2(694)559-363785 [place] [address] 06-16-2022 11:36-0400 Body weight 101.15 kg Apolinar Henry MD Work Phone: 8(981)776-159385 [place] [address] 06-16-2022 11:36-0400 Diastolic blood pressure 89 mm[Hg] Apolinar Henry MD Work Phone: 6(989)041-943185 [place] [address] 06-16-2022 11:36-0400 Heart rate 76 /min Apolinar Henry MD Work Phone: [facility] 06-16-2022 11:36-0400 Systolic blood pressure 148 mm[Hg] Apolinar Henry MD Work Phone: [facility] 05-20-2022 13:46-0400 Body temperature 98.01 [degF] Apolinar Henry MD Work Phone: [facility] 05-20-2022 13:46-0400 Body weight 100.7 kg Apolinar Henry MD Work Phone: 4(005)764-960744 [place] [address] 05-20-2022 13:46-0400 Diastolic blood pressure 95 mm[Hg] Apolinar Henry MD Work Phone: [facility] 05-20-2022 13:46-0400 Heart rate 80 /min Apolinar Henry MD Work Phone: [facility] 05-20-2022 13:46-0400 Systolic blood pressure 150 mm[Hg] Apolinar Henry MD Work Phone: [facility] Encounters Encounter Date Encounter Type Care Provider Facility Start: 01-21-2024 ambulatory Apolinar Henry Facility :[facility] Start: 01-21-2024 End: 01-21-2024 ambulatory Shaikh Tyshawn Facility:[facility] Start: 01-21-2024 Non-patient / Non-visit Dr. Phil Villagran Work Phone: [facility] Start: 01-21-2024 End: 01-21-2024 Admission to same day surgery center Dr. Shaikh Villagran Work Phone: [facility] Start: 01-21-2024 End: 01-21-[address] Shaikh Villagran Work Phone: [facility] Work Phone: Start: 01-06-2024 End: 01-06-2024 ambulatory SHAIKH TYSHAWN Not Available Start: 01-05-2024 End: 01-05-2024 ambulatory Shaikh Tyshawn Facility:[facility] Start: 01-05-2024 End: 01-05-[address] Shaikh Villagran Work Phone: [facility] Work Phone: Start: 12-22-2023 End: 12-22-2023 ambulatory Apolinar Henry Facility:[facility] Start: 12-22-2023 End: 12-22-[address] Apolinar Henry Work Phone: [facility] Work Phone: Start: 12-22-2023 End: 12-22-[address] Apolinar Henry Work Phone: [facility] Work Phone: Start: 12-14-2023 End: 12-14-2023 ambulatory Apolinar Henry Facility:[facility] Start: 12-14-2023 End: 12-14-[address] Apolinar Henry Work Phone: [facility] Work Phone: Start: 12-14-2023 End: 12-14-[address] Apolinar Henry Work Phone: [facility] Work Phone: Start: 12-09-2023 End: 12-09-2023 ambulatory [facility] Work Phone: Start: 12-09-2023 End: 12-09-2023 Patient encounter procedure [facility] Work Phone: Start: 11-29-2023 End: 11-29-2023 ambulatory SHAIKH TYSHAWN Not Available Start: 11-25-2023 Telephone encounter [facility] Comment on above: Results Start: 11-18-2023 End: 11-19-2023 ambulatory [facility] Start: 11-18-2023 End: 11-18-2023 ambulatory [facility] Start: 11-15-2023 End: 11-16-2023 ambulatory Shaikh Kerry Villagran MD Facility:[facility] Start: 11-01-2023 End: 11-01-2023 ambulatory MD Shaikh Villagran Work Phone: [facility] Work Phone: Start: 11-01-2023 End: 11-01-2023 Patient encounter procedure MD Shaikh Villagran Work Phone: [facility] Work Phone: Start: 10-11-2023 End: 10-12-2023 ambulatory Shaikh Kerry Villagran MD Facility:[facility] Start: 09-15-2023 End: 09-16-2023 ambulatory Shaikh Kerry Villagran MD Facility:[facility] Start: 09-01-2023 End: 09-02-2023 ambulatory Kevin De La Vega APRN-HEM INSPECTOR Facility:[facility] Start: 08-30-2023 ambulatory Shaikh Tyshawn Facility: [facility] Start: 08-30-2023 Registered Recurring MD Shaikh Villagran Work Phone: [facility] Work Phone: Start: 08-30-2023 End: 08-30-2023 Patient encounter procedure MD Shaikh Villagran Work Phone: [facility] Work Phone: Start: 07-30-2023 ambulatory Apolinar Henry Facility :[facility] Start: 07-21-2023 ([facility] RD FU) [facility] F/ U [employer] Adriana Lyn [facility] Start: 07-21-2023 End: 07-21-2023 ambulatory Adriana Lyn Other [employer] Other Start: 07-20-2023 End: 07-21-2023 ambulatory Shaikh Kerry Villagran MD Facility:[facility] Start: 07-05-2023 ([facility]/U) Weight Management f/u [facility] Start: 07-05-2023 End: 07-06-2023 ambulatory Vanessa Mack MD [employer] [facility] [employer] Other Start: 07-01-2023 End: 07-01-2023 ambulatory Shaikh Kerry Villagran MD Facility:[facility] Start: 06-30-2023 End: 06-30-2023 ambulatory Apolinar Henry Facility:[facility] Start: 06-30-2023 End: 06-30-[address] Apolinar Henry Work Phone: [facility] Work Phone: Start: 06-30-2023 End: 06-30-[address] Apolinar Henry Work Phone: [facility] Work Phone: Start: 06-21-2023 End: 06-22-2023 ambulatory Vanessa Mack MD Facility: [facility] Start: 06-16-2023 End: 06-17-2023 ambulatory Shaikh Kerry Villagran MD Facility:[facility] Start: 06-02-2023 End: 06-03-2023 ambulatory Shaikh Kerry Villagran MD Facility:[facility] Start: 06-01-2023 End: 06-02-2023 ambulatory Adam Betancourt MD Facility:[facility] Start: 06-01-2023 End: 06-02-2023 ambulatory Shaikh Kerry Villagran MD Facility:[facility] Start: 05-31-2023 End: 06-01-2023 ambulatory Vanessa Mack MD Facility:[facility] Start: 05-27-2023 ([facility] RD FU) [facility] F/ U [employer] Adriana Lyn [facility] Start: 05-27-2023 End: 05-27-2023 ambulatory Adriana Lyn Other [employer] Other Start: 05-05-2023 End: 05-05-2023 ambulatory Apolinar Henry Facility:[facility] Start: 05-05-2023 End: 05-05-[address] Apolinar Henry Work Phone: [facility] Work Phone: Start: 05-05-2023 End: 05-05-[address] Apolinar Henry Work Phone: [facility] Work Phone: Start: 04-12-2023 End: 04-12-2023 ambulatory Susanne Jordan Other [employer] Other Start: 04-12-2023 Telephone encounter [facility] Start: 03-15-2023 [facility] Weight Management f/u [facility] Start: 03-15-2023 End: 03-15-2023 ambulatory Susanne Jordan Other [employer] Other Start: 02-18-2023 End: 02-19-2023 ambulatory Kevin De La Vega CNC MILL OPERATOR-HEM INSPECTOR Facility:[facility] Start: 01-20-2023 End: 01-21-2023 ambulatory Shaikh Kerry Villagran MD Facility: 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); S/P breast reconstruction Start: 10-21-2022 ambulatory [facility] Start: 10-21-2022 End: 10-21-2022 Office outpatient visit 25 minutes Apolinar Henry MD Work Phone: [facility] Comment on above: 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); S/P breast reconstruction Start: 10-07-2022 [facility] Start: 10-07-2022 End: 10-07-2022 Postop follow up visit related to original px Apolinar Henry MD Work Phone: [facility] Comment on above: 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); S/P breast reconstruction Start: 09-23-2022 [facility] Start: 09-23-2022 End: 09-23-2022 Postop follow up visit related to original px Apolinar Henry MD Work Phone: [facility] Comment on above: 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); S/P breast reconstruction Start: 09-16-2022 End: 09-17-2022 ambulatory SHAIKH Tc VILLAGRAN Facility:H1 Start: 09-16-2022 End: 09-17-[address] TY BOUDREAUX Facility:H1 Start: 09-15-2022 ambulatory [facility] Start: 09-15-2022 End: 09-15-2022 Subsequent hospital visit by physician Apolinar Henry MD Work Phone: [facility] Comment on above: Arrived Start: 08-26-2022 [facility] Start: 08-12-2022 [facility] Start: 08-12-2022 End: 08-12-2022 Postop follow up visit related to original debi Henry MD Work Phone: [facility] Comment on above: S/P breast reconstru ction (Primary Dx); Personal history of malignant neoplasm of breast; Acquired absence of right breast and nipple Start: 08-05-2022 [facility] Start: 08-05-2022 End: 08-05-2022 Postop follow up visit related to original debi Henry MD Work Phone: [facility] Comment on above: S/P breast reconstru ction (Primary Dx) Start: 07-22-2022 [facility] Start: 07-22-2022 End: 07-22-2022 Postop follow up visit related to original debi Henry MD Work Phone: [facility] Comment on above: 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); S/P breast reconstruction Start: 07-15-2022 [facility] Start: 07-15-2022 End: 07-15-2022 Postop follow up visit related to original debi Henry MD Work Phone: [facility] Comment on above: 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); Personal history of malignant neoplasm of breast; S/P breast reconstruction Start: 07-09-2022 End: 07-09-2022 [facility] Start: 07-09-2022 End: 07-09-2022 Subsequent hospital visit by physician Apolinar Henry MD Work Phone: [facility] Comment on above: Personal history of malignant neoplasm of breast Start: 06-30-2022 [facility]ulatory [facility] Start: 06-30-2022 End: 06-30-2022 Office outpatient visit 40 minutes Apolinar Henry MD Work Phone: [facility] Comment on above: S/P breast reconstru ction (Primary Dx); Acquired absence of right breast and nipple; Personal history of malignant neoplasm of breast Start: 06-25-2022 Encounter for other preprocedural examination [facility] Start: 06-23-2022 ambulatory [facility] Start: 06-22-2022 End: 06-23-2022 ambulatory [facility] Facility:[facility]1 Start: 06-22-2022 End: 06-23-2022 Encounter for other preprocedural examination [facility] Facility: Start: 06-16-2022 ambulatory [facility] Start: 06-16-2022 Encounter for other preprocedural examination [facility] Start: 06-16-2022 [facility] Start: 06-16-2022 End: 06-16-2022 Office outpatient visit 25 minutes Apolinar Henry MD Work Phone: [facility] Comment on above: Personal history of malignant neoplasm of breast (Primary Dx); Acquired absence of right breast and nipple Start: 05-21-2022 End: 06-20-2022 ambulatory [facility] Start: 05-20-2022 ambulatory [facility] Start: 05-20-2022 End: 05-20-2022 Office outpatient new 60 minutes Apolinar Henry MD Work Phone: [facility] Comment on above: Personal history of malignant neoplasm of breast (Primary Dx); Acquired absence of right breast and nipple Start: 03-24-2022 End: 03-25-2022 ambulatory SHAIKH Tc VILLAGRAN Facility: Start: 03-02-2022 End: 03-02-2022 ambulatory SHAIKH Tc VILLAGRAN Facility:H1 Start: 01-13-2022 End: 01-14-2022 ambulatory SHAIKH Tc VILLAGRAN Facility: Start: 06-07-2020 End: 06-08-2020 Patient encounter procedure [place] Facility:[facility] Start: 08-05-2018 End: 08-05-2018 Emergency department patient visit GRUPO BROUSSARD Facility:[facility] Start: 07-27-2017 End: 10-14-2017 Ambulatory NANCY MARTINEZ Facility:[facility] Procedures Date Procedure Procedure Detail Performing Clinician Start: 01-21-2024 Reduction mammoplasty [place] Freed Tyshawn Work Phone: Start: 08-17-2023 Adult depression scr eening assessment Chelsea Acevedo Start: 09-23-2022 Follow-up visit Follow-up APOLINAR HENRY Start: 09-15-2022 Radiologic exam chest 2 views Apolinar Henry MD Work Phone: Start: 06-07-2020 ANESTH KNEE JOINT SURGERY LASHA BAKER Start: 06-07-2020 KNEE ARTHROSCOPY/SURGERY ADAM Tc BRODY Start: 08-05-2018 Electrocardiogram GRUPO BROUSSARD Plan of Treatment Date Care Activity Detail Author Start: 11-15-2024 Adult BMI Screening Adult BMI Screen ing [facility] Start: 08-23-2024 End: 08-23-2024 Patient encounter procedure 08/23/2024 2:00 PM EST Office Visit [facility] [address] [place] [address] Angel Cole MD [address] [place] [address] [facility] Start: 08-18-2024 Tobacco Screening Tobacco Screening [facility] Start: 08-17-2024 Depression Screening Depression Scre ening [facility] Start: 03-02-2024 End: 03-02-2024 Patient encounter procedure 03/02/2024 2:00 PM EDT Office Visit [facility] [address] [place] [phone] Ramakrishna López MD [address] [place] [address], [address], [address] [place] [phone] [facility] Start: 01-21-2024 Patient discharge [facility] Start: 09-01-2023 Administration of varicella zoster vaccine Zoster (Shingles) Vaccine (2 of 2) [facility] Start: 05-14-2023 COVID-19 Vaccine ( season) COVID-19 Vaccine ( season) [facility] Start: 04-06-2023 MAMMOGRAM LEFT MAMMOGRAM LEFT [facility] Start: 04-06-2023 Screening for malign ant neoplasm of breast MAMMOGRAM LEFT [facility] Start: 01-11-2023 DTaP,Tdap and Td Vaccines (2 - Td or Tdap) DTaP,Tdap and Td Vaccines (2 - Td or Tdap) [facility] Start: 01-11-2023 Tetanus vaccination TETANUS [facility] Start: 11-18-2022 End: 11-18-2022 Patient encounter procedure 11/18/2022 Office Visit Plastic Surgery Apolinar Henry MD [address] [place] [address] [facility] Start: 10-21-2022 End: 10-21-2022 Patient encounter procedure 10/21/2022 Office Visit Plastic Surgery Apolinar Henry MD [address] [place] [address] [facility] Start: 10-07-2022 End: 10-07-2022 Patient encounter procedure 10/07/2022 Office Visit Plastic Surgery Apolinar Henry MD [address] [place] [address] [facility] Start: 09-23-2022 End: 09-23-2022 Patient encounter procedure 09/23/2022 Office Visit Plastic Surgery Apolinar Henry MD [address] [place] [address], [place] [address] [facility] Start: 08-26-2022 End: 08-26-2022 Patient encounter procedure 08/26/2022 Office Visit Plastic Surgery Apolinar Henry MD [address] [place] [address], [place] [address] [facility] Start: 08-12-2022 End: 08-12-2022 Patient encounter procedure 08/12/2022 Office Visit Plastic Surgery Apolinra Henry MD [address] [place] [address], [place] [address] [facility] Start: 08-05-2022 End: 08-05-2022 Patient encounter procedure 08/05/2022 Office Visit Plastic Surgery Apolinar Henry MD [address] [place] [address], [place] [address] [facility] Start: 07-22-2022 End: 07-22-2022 Patient encounter procedure 07/22/2022 Office Visit Plastic Surgery Apolinar Henry MD [address] [place] [address], [place] [address] [facility] Start: 07-15-2022 End: 07-15-2022 Patient encounter procedure 07/15/2022 Office Visit Plastic Surgery Apolinar Henry MD [address] [place] [address], [place] [address] [facility] Start: 07-09-2022 Subsequent hospital visit by physician 07/09/2022 Hospital Encounter Multispecialty Apolinar Henry MD [address] [place] [address] Personal history of malignant neoplasm of breast [facility] Comment on above: Personal history of malignant neoplasm of breast Start: 07-09-2022 End: 07-09-2022 Admission to same day surgery center 07/09/2022 Surgery Multispecialty Apolinar Henry MD [address] [place] [address] RT BREAST RECONSTRUCTION W/ PLACEMENT TISSUE [employer] & ADM [facility] Comment on above: RT BREAST RECONSTRUC TION W/ PLACEMENT TISSUE [employer] & ADM Start: 07-09-2022 End: 07-09-2022 Anesthesia consultation 07/09/2022 [facility] [address] [place] [address] [facility] Start: 07-09-2022 End: 07-09-2022 Brst rcnstj immt/dlyd w/tiss carpenter's assistant sbsq xpnsj RECONSTRUCTION BREAST TISSUE [employer] INCLUDING SUBSEQUENT EXPANDERS Personal history of malignant [...] Visit Plastic Surgery Apolinar Henry MD [address] [place] [address] [facility] Start: 05-14-2022 Influenza vaccination INFLUENZA VACC INE (#1) [facility] Start: 12-03-2021 COVID-19 VACCINE (4 - Booster for Pfizer series) COVID-19 VACCINE (4 - Booster for Pfizer series) [facility] Start: 09-30-2021 COVID-19 VACCINE (4 - Booster for Pfizer series) COVID-19 VACCINE (4 - Booster for Pfizer series) [facility] Start: 2015 Fall Risk Screening Fall Risk Screen ing [facility] Start: 2015 Pneumococcal vaccination PNEUM OCOCCAL VACCINE SERIES (1 - PCV) [facility] Start: 2000 Zoster vaccine hzv l vera for subcutaneous use ZOSTER (SHINGLES) VACCINE (1 of 2) [facility] Start: 1995 Colonoscopy COLORECTAL CAN CER SCREENING DISCUSSION [facility] Start: 1995 Screening for malign ant neoplasm of colon COLORECTAL CANCER SCREENING DISCUSSION [facility] Start: 1990 Fasting lipid profile LIPID SCREENIN G [facility] Start: 1990 Lipid panel LIPID SCREENING [facility] Start: 1980 MAMMOGRAM LEFT MAMMOGRAM LEFT [facility] Start: 1971 Screening for malign ant neoplasm of cervix CERVICAL CANCER SCREENING DISCUSSION [facility] Start: 1969 Third diphtheria, tetanus and acellular pertussis (DTaP) vaccination TDAP (ADULT) [facility] Start: 1968 Adult BMI Follow Up Plan Adult BMI F ollow Up Plan [facility] Start: 1968 Tetanus vaccination TETANUS [facility] Start: 1950 Hepatitis C antibody , confirmatory test HEPATITIS C VIRUS SCREENING [facility] Start: 1950 Hepatitis C screening HEPATITI S C VIRUS SCREENING [facility] Start: 1950 Medicare Annual Well ness Visit Medicare Annual Wellness Visit [facility] Start: 1950 Screening for osteoporosis DEXA SCAN DISCUSSION [facility] Start: 1950 Thyroid stimulating hormone measurement TSH [facility] Blood chemistry [facility] Complete blood count [facility] Patient referral [facility] Work Phone: Immunizations Immunization Date Immunization Notes Care Provider Fa alesha 07-07-2023 zoster vaccine, unspecified formulation Chelsea Acevedo [facility] 08-05-2021 influenza virus vaccine, unspecified formulation Apolinar Henry MD Work Phone: [facility] Payers Date Payer Category Payer [employer] [id number] 2022 [employer] [id number] 2022 Self-pay 2021 [employer]) [id number] 2021 [employer] others) [id number]. 3.6786 71.315 2021 Unknown 2020 Medicare [id number]. 1.13.172.2.7.3.6786 71.315 2019 Unknown [id number] 2017 Medicare [id number] 2016 [employer] others) [id number] 1959 [employer] others) [id number] 1959 Medicare [id number] 1950 Unknown [id number] 2.16.840.1.000712.3.579.2.647 1950 Unknown [id number] 2.16.840.1.927286.3.579.2.983 1950 Unknown [id number] 2.16.840.1.573918.3.579.2.983 1950 Unknown [id number] 2.16.840.1.801525.3.579.2.983 1950 Unknown [id number] 2.16.840.1.135558.3.579.2.983 1950 Unknown [id number] 2.16.840.1.421904.3.579.2.983 1950 Unknown [id number] 2.16.840.1.763229.3.579.2.983 1950 Unknown [id number] 2.16.840.1.484958.3.579.2.983 1950 Unknown [id number] 2.16.840.1.920630.3.579.2.983 1950 Unknown [id number] 2.16.840.1.447114.3.579.2.983 1950 Unknown [id number] 2.16.840.1.679407.3.579.2.983 1950 Unknown [id number] 2.16.840.1.770935.3.579.2.983 1950 Unknown [id number] 2.16.840.1.065758.3.579.2.983 1950 Unknown [id number] 2.16.840.1.193953.3.579.2.983 1950 Unknown [id number] 2.16.840.1.945947.3.579.2.983 1950 Unknown [id number] 2.16.840.1.101384.3.579.2.983 1950 Unknown [id number] 2.16.840.1.167203.3.579.2.983 1950 Unknown [id number] 2.16.840.1.734058.3.579.2.983 1950 Unknown [id number] 2.16.840.1.798337.3.579.2.983 1950 Unknown [id number] 2.16.840.1.740654.3.579.2.593 1950 Unknown [id number] 2.16.840.1.335877.3.579.2.593 1950 Unknown [id number] 2.16.840.1.524688.3.579.2.593 1950 Unknown [id number] 2.16.840.1.109120.3.579.2.593 1950 Unknown [id number] 2.16.840.1.928903.3.579.2.593 1950 Unknown [id number] 2.16.840.1.573456.3.579.2.593 1950 Unknown [id number] 2.16.840.1.144068.3.579.2.593 1950 Unknown [id number] 2.16.840.1.734774.3.579.2.593 1950 Unknown [id number] 2.16.840.1.836847.3.579.2.593 1950 Unknown [id number] 2.16.840.1.806591.3.579.2.196 1950 Unknown [id number] 2.16.840.1.680529.3.579.2.196 1950 Unknown [id number] 2.16.840.1.453261.3.579.2.196 1950 Unknown [id number] 2.16.840.1.164689.3.579.2.196 1950 Unknown [id number] 2.16.840.1.832171.3.579.2.196 1950 Unknown [id number] 2.16.840.1.142728.3.579.2.196 1950 Unknown [id number] 2.16.840.1.286288.3.579.2.196 1950 Unknown [id number] 2.16.840.1.061984.3.579.2.196 1950 Unknown [id number] 2.16.840.1.188290.3.579.2.196 1950 Unknown [id number] 2.16.840.1.112782.3.579.2.196 1950 Unknown [id number] 2.16.840.1.358904.3.579.2.196 1950 Unknown [id number] 2.16.840.1.599586.3.579.2.196 1950 Unknown [id number] 2.16.840.1.659369.3.579.2.196 1950 Unknown [id number] 2.16.840.1.752426.3.579.2.196 1950 Unknown [id number] 2.16.840.1.670513.3.579.2.196 1950 Unknown [id number] 2.16.840.1.517427.3.579.2.196 1950 Unknown [id number] 2.16.840.1.659867.3.579.2.196 1950 Unknown [id number] 2.16.840.1.900967.3.579.2.196 1950 Unknown [id number] 2.16.840.1.494418.3.579.2.1286 1950 Unknown [id number] 2.16.840.1.111335.3.579.2.1286 1950 Unknown [id number] 2.16.840.1.642920.3.579.2.1259 1950 Unknown [id number] 2.16.840.1.378895.3.579.2.1259 8 Unknown [id number] 2.16.840.1.681843.3.579.2.196 [employer] ( [employer] others) [id number] 2.16.840.1.555908 .19 Medicare [id number] Private Health Insurance [id number] Unknown [id number] 2.16.840.1.213928.3.579.2.283 Unknown [id number] 2.16.840.1.927764.3.579.2.531 Unknown [id number] 2.16.840.1.051029.3.579.2.462 Unknown [id number] 2.16.840.1.194896.3.579.2.462 Unknown [id number] 2.16.840.1.698455.3.579.2.462 Unknown [id number] 2.16.840.1.960521.3.579.2.462 Unknown [id number] 2.16.840.1.605102.3.579.2.462 Unknown [id number] 2.16.840.1.106047.3.579.2.462 Unknown [id number] 2.16.840.1.732783.3.579.2.462 Unknown [id number] 2.16.840.1.794330.3.579.2.462 Social History Date Type Detail Facility Start: 05-20-2022 End: 01-06-2023 Tobacco smoking status NHIS Never smoked tobacco [facility] Start: 05-20-2022 End: 01-06-2023 Tobacco use and exposure Smokeless tobacco non-user [facility] Start: 05-20-2022 Alcohol intake Ex-drinker (finding) [facility] Start: 1950 Sex Assigned At Not on file [facility] Start: 06-16-2022 End: 08-18-2023 Alcohol intake Current drinker of alcohol (finding) [facility] Start: 06-16-2022 History SDOH Alcohol Comment SELDOM [facility] Start: 06-29-2022 End: 07-09-2022 Exposure to SARS-CoV-2 (event) Not sure [facility] Start: 10-24-2020 End: 08-18-2023 Sex Assigned At [facility] Start: 05-05-2023 End: 12-30-2023 Tobacco smoking status NHIS Unknown if ever smoked [facility] Start: 1950 Sex Assigned At Female [facility] Start: 10-24-2020 End: 08-18-2023 History of Social function [facility] Adolescent depressio n screening assessment 1 [facility] NEGATED: Highlighted row [facility] Medical Equipment Procedure Code Equipment Code Equipment Origin al Text Equipment Identifier Dates [employer] [facility] Breast Implant [id number] Start: 07-09-2022 Goals Date Patient Goal Desired Activity /State Functional Status Date Assessment Result Facility 01-21-2024 Functional status Activity Abili ty With Assist of 1 [facility] Work Phone: Mental Status Date Assessment Result Facility 01-21-2024 Cognitive function Voice/Name [facility] Work Phone: Clinical Notes 01-13-2022 to 01-21-2024 Note Date & Type Note Facility 01-21-2024 Discharge summary Note Date/Time January 21, 2024 10:39am [facility] Medical Records Department [address] [place] [address] Instructions for Home/Discharge Instructions 01/21/24 1037 MR#: [id number] Acct: [id number] Name: BERENICE NOLASCO Rep #:[id number] : 1950 73 From: Apolinar Henry MD PCP: Shaikh Villagran [place] [facility] [place] Instructions Dressing / Incision Additional Dressing/Incision Instructions:: Keep your back elevated (recliner position) to help reduce swelling and bruising. Follow the instructions given in the office. Leave the bra and dressing in place until seen in the office. Follow Up Care Please Follow Up With: Apolinar Henry MD When: In 1 week Test Results: Test results from this visit will be discussed in further detail at your follow-up appointment, if applicable. Discharge Plan Admission Attending Provider: Apolinar Henry Primary Care Provider: Shaikh Villagran Instructions Additional Instructions / Restrictions: Incentive spirometer used hourly during the day. Discharge Orders/Prescriptions Prescriptions: No Action levothyroxine 50 mcg tablet 50 mcg PO DAILY Patient Comments: take 1 tablet by mouth once daily citalopram 20 mg tablet 30 mg PO DAILY Patient Comments: TAKE 1 AND 1/2 TABLETS BY MOUTH ONCE DAILY fesoterodine 8 mg tablet extended release 24 hr 8 mg PO DAILY Patient Comments: TAKE 1 TAB BY MOUTH DAILY simvastatin 20 mg tablet 20 mg PO QHS Patient Comments: Take 1 (one) Tablet by mouth at bedtime famotidine 20 mg tablet 20 mg PO QHS aspirin 81 mg tablet,delayed release (DR/EC) 81 mg PO DAILY Complete MV Adult 50 Plus 0.4 mg-300 mcg- 250 mcg tablet 1 tab PO DAILY calcium carbonate-vitamin D3 [Calcium 600 with Vitamin D3] 600 mg-12.5 mcg (500 unit) capsule 1 cap PO DAILY Collagen Skin Renewal 30-833.3 mg tablet 1 tab PO DAILY melatonin 10 mg tablet 10 mg PO HS Ozempic 0.25 mg or 0.5 mg (2 mg/3 mL) pen injector 0.25 mg subcut TH Patient Comments: inject 0.25 milligrams subcutaneously every week for 4 weeks then... (REFER TO PRESCRIPTION NOTES). esomeprazole magnesium 40 mg capsule,delayed release(DR/EC) 40 mg PO DAILY Patient Comments: take 1 capsule by mouth daily clindamycin HCl 300 mg capsule 300 mg PO Q8H Qty: 15 0RF flaxseed oil 1,000 mg capsule 1,000 mg PO DAILY Probiotic Acidophilus 250 million cell capsule 500 mmu cells PO DAILY Referrals / Follow Up: Shaikh Villagran [Primary Care Provider] - Disposition Disposition (needs filled in before D/C Order can be placed): Home, Self Care 01/21/24 1040<Electronically signed by Apolinar Henry MD>Apolinar Henry MD CC: Shaikh Tyshawn ~ Signed [facility] Work Phone: 1(338) 878-169805-10-2024 Procedure [facility] 01-21-2024 History and physical note Author Apolinar Henry [facility] January 21, 2024 7:25am Note Date/Time January 21, 2024 7:25a m [facility] Medical Records Department [address] [place] [address] History & Physical Exam 01/21/24 0722 MR#: [id number] Acct: [id number] Name: BERENICE NOLASCO Rep #:[id number] : 1950 73 From: Apolinar Henry MD PCP: Shaikh Villagran Status:[facility] Location: [place] [address] History and Physical Date of Admission: 01/21/24 The patient is examined and there are no changes from the H&P dated 01/06/24. She presents for left breast reduction for symmetry following reconstruction on her right breast. Also right breast carpenter's assistant port removal. Informed consent was obtained. Assessment & Plan Assessment/Plan (1) S/P breast reconstruction, right: (2) History of cancer of right breast: (3) Breast hypertrophy: (4) Breast asymmetry between [place] breast and reconstructed breast: PLAN: Plan For left breast reduction and right carpenter's assistant port removal. 01/21/24724 <Electronically signed by Apolinar Henry MD> Cosigner Signature (if applicable): CC: Dr. Apolinar Henry MD; Shaikh Tyshawn~ Signed [facility] Work Phone: 1(773) 824-383705-10-2024 [facility] Medical Records Department [address] [place] [address] History Physical Exam 01/21/24721 MR#: [id number] Acct: [id number] Name: BERENICE NOLASCO Rep #: [id number] : 1950 73 From: Apolinar Henry MD PCP: Shaikh Villagran Status:[facility] Location: [place] [address] History and Physical Date of Admission: 01/21/24 The patient is examined and there are no changes from the H P dated 01/06/24. She presents for left breast reduction for symmetry following reconstruction on her right breast. Also right breast carpenter's assistant port removal. Informed consent was obtained. Assessment Plan Assessment/Plan (1) S/P breast reconstruction, right: (2) History of cancer of right breast: (3) Breast hypertrophy: (4) Breast asymmetry between [place] breast and reconstructed breast: PLAN: Plan For left breast reduction and right carpenter's assistant port removal. 01/21/24724 Cosigner Signature (if applicable): CC: Dr. Apolinar Henry MD; Shaikh Tyshawn [facility] Progress note Author Apolinar Henry [facility] December 14, 2023 4:43pm Note Date/Time December 14, 2023 3:58 pm [facility] [address], [address] [place], [place] [id number] OFFICE VISIT Date of Service: 12/14/23 MR#: [id number] Acct: [id number] Name: BERENICE NOLASCO Rep #: [id number] : 1950 Provider: Dr. Dolly Henry MD Age/Sex: 73/F Location: [facility] [place] [facility] Status: Signed Intake Vital Signs 06/30/23 15:08 12/14/23 15:53 Height 5 ft 6 in 5 ft 6 in Weight: 207 lb 6 oz 200 lb 9 oz BMI 33.5 32.3 BP 135/81 H 128/83 H Blood Pressure Location Lt brachial Lt brachial Position Sitting Sitting Respiration 16 16 Pulse 65 70 Pulse Source NIBP Temp 97.3 F L 97.9 F Temp Source Oral Pulse Oximetry (%) 94 95 Oxygen Delivery Method room air room air Intake Visit Reasons: Follow up Chief Complaint: left breast red and removal right expand port-discussion Is patient in pain?: No Allergies Penicillins Allergy (Verified 12/14/23 15:55) Rash Sulfa (Sulfonamide Antibiotics) Allergy (Verified 12/14/23 15:55) Rash Medications ascorbic acid 30 mg-collagen, hydrolyzed 833.3 mg tablet (Collagen Skin Renewal)1 tab PO DAILY 05/05/23 [History Confirmed 12/14/23] aspirin 81 mg tablet,delayed release 81 mg PO DAILY 05/05/23 [History Confirmed 12/14/23] calcium carbonate 600 mg-vitamin D3 12.5 mcg (500 unit) capsule (Calcium 600 with Vitamin D3) 1 cap PO DAILY 05/05/23 [History Confirmed 12/14/23] citalopram 20 mg tablet 30 mg PO DAILY 05/05/23 [History Confirmed 12/14/23] esomeprazole magnesium 40 mg capsule,delayed release 40 mg PO DAILY 05/05/23 [History Confirmed 06/30/23] famotidine 20 mg tablet 20 mg PO DAILY 05/05/23 [History Confirmed 12/14/23] fesoterodine 8 mg tablet,extended release 24 hr 8 mg PO DAILY 05/05/23 [History Confirmed 12/14/23] levothyroxine 50 mcg tablet 50 mcg PO DAILY 05/05/23 [History Confirmed 12/14/23] melatonin 10 mg tablet 10 mg PO HS 05/05/23 [History Confirmed 12/14/23] ibtdlawn-ohl-kotpc acid 0.4 mg-lycopene 300 mcg-lutein 250 mcg tablet (Complete Multivitamin Adult 50 Plus) 1 tab PO DAILY 05/05/23 [History Confirmed 12/14/23] semaglutide 0.25 mg or 0.5 mg (2 mg/3 mL) subcutaneous pen injector (Ozempic) 0.25 mg subcut QWEEK 05/05/23 [History Confirmed 12/14/23] simvastatin 20 mg tablet 20 mg PO DAILY 05/05/23 [History Confirmed 12/14/23] Nurse's Note: pt here with to discuss future surgery Left breast reduction, removal right carpenter's assistant pot. [facility] Medical History (Updated 05/05/23 @ 15:33 by [...] Aspirin use daily. Occasional Ibuprofen use. HPI Follow up Details: Berenice comes in for reconsideration of the surgery to remove the port on the right reconstructed breast as well as reduce the left breast. She had initiallybeen scheduled to undergo this procedure several months ago however needed further workup regarding unsteadiness. She also underwent hernia surgery. She has been on Ozempic and has lost 30 pounds in the interim. Exam Details The patient's right breast tissue carpenter's assistant is in good position and the port is palpable. The incisions are well-approximated. She has 1 area of weakness of the ADM where the implant is more palpable. She has hypertrophy of the left breast. There are no palpable masses or axillary adenopathy. I reviewed breast reduction with her to match the reconstructed right breast. The incisions and scars as well as limitations after surgery were reviewed. The expected pre-, intra, and postoperative course were reviewed. At the same setting, we would remove the port on the right tissue carpenter's assistant whichhas the capability of functioning as a permanent implant. The surgery would be done as an outpatient under general anesthetic. Const General: cooperative and healthy appearing Nutritional Appearance: overweight Orientation: alert HENMT Head: normal to inspection Eyes General: appearance normal, both eyes and all related structures Neck Neck: normal visual inspection Neuro General: patient alert Other: Slightly unsteady gait Psych Appearance: grossly normal and well kempt Coding Level of Care Code Off vis,est,level 4 Diagnoses History of cancer of right breast Z85.3 Breast hypertrophy N62 Breast asymmetry between venetie breast and reconstructed breast N65.1 Assessment and Plan (No Qualifiers) Assessment and Plan (1) History of cancer of right breast: Status: Acute (2) Breast hypertrophy: Status: Acute (3) Breast asymmetry between venetie breast and reconstructed breast: Status: Acute Plan Details Additional Comments: We will obtain preauthorization for the proposed procedure of left breast reduction for symmetry and removal of the carpenter's assistant port right breast 12/14/23 1643 <Electronically signed by Apolinar gar MD> Date _ Apolinar Henry MD Cosigner Signature: Date (if applicable) CC: ~ [facility] Work Phone: 1(363) 789-813803-14-2024 Miscellaneous Notes* Telephone Encounter - Chelsea Acevedo - 11/25/2023 3:52 PM EDT Patient called in asking to discuss results of EEG and MRI that were completed on 11/18/23. Patientis also asking is results could be forwarded to her PCP's office. Fax number [phone] * Telephone Encounter - Suzanna Cuadra RN - 11/25/2023 3:52 PM EDT Please review and advise on next steps. * Telephone Encounter - Ramakrishna López MD - 11/25/2023 3:52 PM EDT MRI shows non specific ischemic changes EEG is normal * Telephone Encounter - Suzanna Cuadra RN - 11/25/2023 3:52 PM EDT Patient informed of results and voiced understanding. Results faxed as requested to Dr. Villagran at provided #. [facility] Telephone encounter Note* Telephone Encounter - Chelsea Acevedo - 11/25/2023 3:52 PM EDT Patient called in asking to discuss results of EEG and MRI that were completed on 11/18/23. Patientis also asking is results could be forwarded to her PCP's office. Fax number [phone] [facility] Telephone encounter Note* Telephone Encounter - Suzanna Cuadra RN - 11/25/2023 3:52 PM EDT Please review and advise on next steps. [facility]03-14-[facility] Telephone encounter Note* Telephone Encounter - Ramakrishna López MD - 11/25/2023 3:52 PM EDT MRI shows non specific ischemic changes EEG is normal [employer] Work Phone: 1(741) 319-974603-14-2024 Telephone encounter Note* Telephone Encounter - Suzanna Cuadra RN - 11/25/2023 3:52 PM EDT Patient informed of results and voiced understanding. Results faxed as requested to Dr. Villagran at provided #. MyDoc [id number] NoteChief Complaint Chief Complaint Patient presents for evaluation of left inguinal pain. History of Present Illness 73 year old female, patient of Dr. Villagran Patient s/p robotic left inguinal hernia repair, performed 07/01/2023. At last visit on 07/21/2023,she was doing well. She reports pain at hernia site. State that this started a couple weeks ago. Reports the pain is sharp and is pretty consistent. States that she has the pain when walking, but canalso have it when sitting and laying down. She is unsure if there is a recurrent bulge. States thatbowels are moving. Here for recheck. R/S Physical [...] breast cancer History of colonoscopy with polypectomy CT (myocardial infarction) (2013) Morbid obesity with body [...] Health Maintenance Colonoscopy 04/20/2019 (more content not included)...[facility]Order Comment: no [id number] Evaluation note* Encounter Date Diagnosis Assessment Notes Treatment Notes Treatment Clinical Notes Jul, Obesity (ICD-10 - E66.9) Jul, BMI 34.0-34.9,adult (ICD-10 - Z68.34) Jul, Other Summary of Visi t: (A) tips for constipation including high fiber, adequate hydration, exercise; occassional laxative and fiber supplement options. (B) tips for incorporating pt's favorite foods Patient set the following goals: - increase fiber foods to 30 g/day- partially met, continue -increase protein foods- Not reviewed [employer] Other 10-23-2023 Evaluation note* Encounter Date Diagnosis [...] does anticipate getting reconnected with Janina her lead shop operator once she 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 her neck [...] Encounter for weight management (ICD-10 - Z76.89) [employer] Other 09-20-2023 NoteBREAST IMAGING CONSULTATION: 06/01/2023 CLINICAL: Screening. Comparison is made to exams dated: 04/06/2022 mammogram and 03/13/2021 mammogram - [facility]. The tissue of left breast is heterogeneously [...] may not be detected on mammograms. The [employer] supports annual screening mammography starting at age 40. Carol frye/mello:06/02/2023 09:27:52 Assistant Chief Engineer(s): Beth Camacho, RT(R)(M), [facility] letter sent: New Mammo Normal B1/2 Mammogram BI-RADS: 2 Benign Final Dictated by: Carol Tran DO Signed by: Carol Tran DO Signed (Electronic Signature): 06/02/2023 9:27 am (If Report Is Signed, Electronically Signed in Other Vendor System)[facility] NoteChief Complaint Patient presents for evaluation of left inguinal bulge. History of Present Illness 73 year old female, patient of Dr. Villagran ([place], [place]) Patient presents with a palpable bulge in the left groin area. This has been ongoing for a long time. Patient reports worsening pain. Specific triggers include: none. Notes constipation. States that bowels move approximately once a week. Reports that bulge is not reducible. An ultrasound was obtained 05/07/2023, at [facility]. She has history of myocardial infarction, that occurred in 2013during a surgery. Review of Systems Constitutional: No fevers, chills, sweats, weight loss or weight gain Respiratory: No shortness of breath, cough Cardiovascular: +CAD, h/o CT Gastrointestinal: +See HPI Liver: No jaundice, hepatitis [...] hyperplastic & tubular adenomas (04/2019) COVID-19 (09/2021) CT (myocardial infarction) (2013) Morbid obesity with body [...] signed by Emely Zendejas PA-C 06/02/2023 09:[address] [facility] 05-27-2023 Evaluation note* Encounter Date Diagnosis [...] to 30 g/day -NEW: increase protein foods [employer] Other 09-07-2023 NotePatient Education Materials Name: Berenice Nolasco Current Date: 05/20/2023 13:09:49 [place] : 1950 [facility]: [id number] The following sheet(s) are the Patient Education [...] right away to prevent serious problems. ? [id number] [employer]. [address] [place] [address]. All rights reserved. This information is not [...] Encounter for weight management (ICD-10 - Z76.89) [employer] Other 03-08-2023 History of Present illness Narrative* [...] the decision is whether to leave the carpenter's assistant and removal Of the port were to [...] IN 2017 Malignant neoplasm of female breast CT (myocardial infarction) with knee scope PVD (peripheral vascular disease) Past Surgical History: Procedure Laterality Date RECONSTRUCTION BREAST TISSUE [employer] INCLUDING SUBSEQUENT EXPANDERS Right 07/09/2022 Laterality: Right; Surgeon: Apolinar Henry MD; Location: [facility] IMPLANTATION BIOLOGIC IMPLANT FOR SOFT TISSUE REINFORCEMENT ADD-ON PX Right 07/09/2022 RT BREAST RECONSTRUCTION W/ PLACEMENT TISSUE [employer]NA[employer] INTERNS[employer] & ADM/ 150 CC FILL MASTECTOMY Right 1993 BLADDER REPAIR HYSTERECTOMY KNEE SURGERY Bilateral [address] DURING SURGERY ORAL SURGERY REMOVAL CATARACT (PEM) [...] kg/m Smoking Status Never The patient's right carpenter's assistant is in good position. The overlying tissue [...] this year documented in this [facility]02-08-2023 History of Present illness Narrative* [...] MD - 10/21/2022 1:45 PM EST Subjective: Bereniec Nolasco is an 72 y.o. female who [...] IN 2017 Malignant neoplasm of female breast CT (myocardial infarction) with knee scope PVD (peripheral vascular disease) Past Surgical History: Procedure Laterality Date RECONSTRUCTION BREAST TISSUE [employer] INCLUDING SUBSEQUENT EXPANDERS Right 07/09/2022 Laterality: Right; Surgeon: Apolinar Henry MD; Location: [facility] IMPLANTATION BIOLOGIC IMPLANT FOR SOFT TISSUE REINFORCEMENT ADD-ON PX Right 07/09/2022 RT BREAST RECONSTRUCTION W/ PLACEMENT TISSUE [employer] & ADM/ 150 CC FILL MASTECTOMY Right 1992 BLADDER REPAIR HYSTERECTOMY KNEE SURGERY Bilateral [address] DURING SURGERY ORAL SURGERY REMOVAL CATARACT (PEM) [...] Status Never Patient with right breast tissue carpenter's assistant. She has left breast ptosis and hypertrophy. The port is in satisfactory position. The patient has many questions and is undecided regarding further reconstructive plans. She is interested in matching the left breast however this breast is ptotic and larger. I indicated its more difficult to reconstruct a breast that looks identical to that side. [employer] is at its maximal volume of 390 mL for which it could be As a permanent implant. Discussed with the patient that we could consider reassessment in a month to allow the tissue on the right side to relax. After that time we can review the options which may include leaving the carpenter's assistant in place or overexpansion with eventual plans for replacement with a permanent implant. I have reviewed massage of the implant to help soften the pocket. Assessment: Ongoing right breast reconstruction Plan: Pt to RETURN in 1 month FOR RECHECK. They are encouraged to call in the interim with any problems or questions relating to this encounter. documented in [facility] encounterJ[facility] History of Present illness Narrative* [...] evaluation of continued filling of her tissue carpenter's assistant. She states she had pain following the [...] IN 2017 Malignant neoplasm of female breast CT (myocardial infarction) with knee scope PVD (peripheral vascular disease) Past Surgical History: Procedure Laterality Date RECONSTRUCTION BREAST TISSUE [employer] INCLUDING SUBSEQUENT EXPANDERS Right 07/09/2022 Laterality: Right; Surgeon: Apolinar Henry MD; Location: [facility] IMPLANTATION BIOLOGIC IMPLANT FOR SOFT TISSUE REINFORCEMENT ADD-ON PX Right 07/09/2022 RT BREAST RECONSTRUCTION W/ PLACEMENT TISSUE [employer] & ADM/ 150 CC FILL MASTECTOMY Right 1992 BLADDER REPAIR HYSTERECTOMY KNEE SURGERY Bilateral [address] DURING SURGERY ORAL SURGERY REMOVAL CATARACT (PEM) [...] expansion for 3 months before removing the carpenter's assistant and placement of the permanent implant. She presently has 330 mL in and we will put 60 mL in for her to assess the size. The pts Tissue [employer]ant was Filled with 60 cc's of Injectable Saline (unilaterally) after prepping the skin with alcohol. She tolerated the procedure well. She is to follow up in 2 Weeks for evaluation and possible further expansion. Assessment: Ongoing right breast reconstruction with continued filling of her tissue carpenter's assistant Plan: Pt to RETURN in 2 weeks FOR RECHECK. They are encouraged to call in the interim with any problems or questions relating to this encounter. documented in this encounterJ[facility]01-[facility] History of Present illness Narrative* [...] IN 2017 Malignant neoplasm of female breast CT (myocardial infarction) with knee scope PVD (peripheral vascular disease) Past Surgical History: Procedure Laterality Date RECONSTRUCTION BREAST TISSUE [employer] INCLUDING SUBSEQUENT EXPANDERS Right 07/09/2022 Laterality: Right; Surgeon: Apolinar Henry MD; Location: [facility] IMPLANTATION BIOLOGIC IMPLANT FOR SOFT TISSUE REINFORCEMENT ADD-ON PX Right 07/09/2022 RT BREAST RECONSTRUCTION W/ PLACEMENT TISSUE [employer] & ADM/ 150 CC FILL MASTECTOMY Right 1993 BLADDER REPAIR HYSTERECTOMY KNEE SURGERY Bilateral [address] DURING SURGERY ORAL SURGERY REMOVAL CATARACT (PEM) [...] side which is nontender. The pts Tissue [employer] was Filled with The 75 cc's of [...] relating to this encounter. documented in this encounterJ[facility]11-30-[facility]22 History of Present illness Narrative* Ameena [...] IN 2017 Malignant neoplasm of female breast CT (myocardial infarction) with knee scope Past Surgical History: Procedure Laterality Date RECONSTRUCTION BREAST TISSUE [employer] INCLUDING SUBSEQUENT EXPANDERS Right 07/09/2022 Laterality: Right; Surgeon: Apolinar Henry MD; Location: [facility] IMPLANTATION BIOLOGIC IMPLANT FOR SOFT TISSUE REINFORCEMENT ADD-ON PX Right 07/09/2022 RT BREAST RECONSTRUCTION W/ PLACEMENT TISSUE [employer] & ADM/ 150 CC FILL MASTECTOMY Right 1992 BLADDER REPAIR HYSTERECTOMY KNEE SURGERY Bilateral [address] DURING SURGERY ORAL SURGERY REMOVAL CATARACT (PEM) [...] There is no discoloration. The pts Tissue [employer] was Filled with 35 cc's of Injectable Saline (bilaterally/unilaterally) after prepping the skin with alcohol. She tolerated the procedure well. She is to follow up in 2 Weeks for evaluation and further expansion. Assessment: Acquired absence right breast. Patient for expansion of tissue carpenter's assistant Plan: Pt to RETURN in 2 weeks FOR RECHECK. They are encouraged to call in the interim with any problems or questions relating to this encounter. documented in this encounterJ.[facility]. [facility]11-23-[facility] History of Present illness Narrative* [...] IN 2017 Malignant neoplasm of female breast CT (myocardial infarction) with knee scope Past Surgical History: Procedure Laterality Date RECONSTRUCTION BREAST TISSUE [employer] INCLUDING SUBSEQUENT EXPANDERS Right 07/09/2022 Laterality: Right; Surgeon: Apolinar Henry MD; Location: [facility] IMPLANTATION BIOLOGIC IMPLANT FOR SOFT TISSUE REINFORCEMENT ADD-ON PX Right 07/09/2022 RT BREAST RECONSTRUCTION W/ PLACEMENT TISSUE [employer] & ADM/ 150 CC FILL MASTECTOMY Right 1992 BLADDER REPAIR HYSTERECTOMY KNEE SURGERY Bilateral [address] DURING SURGERY ORAL SURGERY REMOVAL CATARACT (PEM) [...] this encounter. documented in this [facility]11-[facility] History of Present illness Narrative* [...] IN 2017 Malignant neoplasm of female breast CT (myocardial infarction) with knee scope Past Surgical History: Procedure Laterality Date RECONSTRUCTION BREAST TISSUE [employer] INCLUDING SUBSEQUENT EXPANDERS Right 07/09/2022 Laterality: Right; Surgeon: Apolinar Henry MD; Location: [facility] IMPLANTATION BIOLOGIC IMPLANT FOR SOFT TISSUE REINFORCEMENT ADD-ON PX Right 07/09/2022 RT BREAST RECONSTRUCTION W/ PLACEMENT TISSUE [employer] & ADM/ 150 CC FILL MASTECTOMY Right 1992 BLADDER REPAIR HYSTERECTOMY KNEE SURGERY Bilateral [address] DURING SURGERY ORAL SURGERY REMOVAL CATARACT (PEM) [...] right breast reconstruction with placement of tissue carpenter's assistant Plan: Pt to RETURN in 2 weeks FOR RECHECK. They are encouraged to call in the interim with any problems or questions relating to this encounter. documented in this encounterJ.[facility]. [facility]11-02-2022 History of Present illness Narrative* [...] for evaluation of Right breast reconstruction with carpenter's assistant on 07/09/22. She complains of soreness, 7/10 [...] IN 2017 Malignant neoplasm of female breast CT (myocardial infarction) with knee scope Past Surgical History: Procedure Laterality Date RECONSTRUCTION BREAST TISSUE [employer] INCLUDING SUBSEQUENT EXPANDERS Right 07/09/2022 Laterality: Right; Surgeon: Apolinar Henry MD; Location: [facility] IMPLANTATION BIOLOGIC IMPLANT FOR SOFT TISSUE REINFORCEMENT ADD-ON PX Right 07/09/2022 Laterality: Right; Surgeon: Apolinar Henry MD; Location: [facility] MASTECTOMY Right 1992 BLADDER REPAIR HYSTERECTOMY KNEE SURGERY Bilateral [address] DURING SURGERY ORAL SURGERY REMOVAL CATARACT (PEM) [...] breast reconstruction with placement of a tissue carpenter's assistant Plan: Pt to RETURN in 1 week FOR RECHECK. They are encouraged to call in the interim with any problems or questions relating to this encounter. documented in this encounterJ.[facility]. [facility]10-27-2022 Nurse Surgical operation note* Deanna [...] Les. Encouraged to use CPAP at home. [facility] Nurse Note* Deanna Jimenez RN [...] to Monitors. documented in this [facility]10-27-20[facility] Nurse Surgical operation note* Alphonse [...] pain, VSS, resp even and unlabored. . [facility]10-[facility] Hospital Discharge instructions* Discharge Instructions* [...] Care Everywhere. * Incentive Spirometer: General Info (Nepali) documented in this [facility]10-27-2022 Note* Brief Op Note - Apolinar Henry MD - 07/09/2022 2:34 PM EDT POST OPERATIVE/PROCEDURE NOTE Berenice Nolasco ([id number]) SURGEON Surgeon(s) and Role: * Apolinar Henry MD - Primary PRINCIPAL CLOUD ARCHITECT KEY ACCOUNT EXECUTIVE ANESTHESIOLOGIST COURT DEPUTY: Real Hahn APRN-COURT DEPUTY SURGICAL STAFF Seaman Officer: Marleni Swartz RN; Joanna Flores RN Monitoring Nurse: Linsey Reyes RN Registered Nurse Type Disk Quality Control Supervisor: Cady Vasquez RN Scrub Person: Laisha An LPN Director Of Retail: Janet Feldman PROCEDURE PERFORMED Right breast reconstruction with placement of tissue carpenter's assistant ([id number]) 150cc initial fill PRIMARY CLOSURE Yes [...] Henry MD July 09, 2022 2:34 PM [facility] Miscellaneous Notes* Brief Op Note - Apolinar Henry MD - 07/09/2022 2:34 PM EDT POST OPERATIVE/PROCEDURE NOTE Berenice Nolasco ([id number]) SURGEON Surgeon(s) and Role: * Apolinar Henry MD - Primary PRINCIPAL CLOUD ARCHITECT KEY ACCOUNT EXECUTIVE ANESTHESIOLOGIST COURT DEPUTY: Real Hahn APRN-COURT DEPUTY SURGICAL STAFF Seaman Officer: Marleni Swartz RN; Joanna Flores RN Monitoring Nurse: Linsey Reyes RN Registered Nurse Type Disk Quality Control Supervisor: Cady Vasquez RN Scrub Person: Laisha An LPN Director Of Retail: Janet Feldman PROCEDURE PERFORMED Right breast reconstruction with placement of tissue carpenter's assistant ([id number]) 150cc initial fill PRIMARY CLOSURE Yes [...] 09, 2022 2:34 PM documented in this encounterJ.W. [facility]10-27-2022 Nurse Surgical operation note* Joanna Flores RN - 07/09/2022 12:24 PM EDT OR room temp 68f Humidity 305 Firescore 2 Prep dry prior to draping. Procedure completed. Dressings applied. Patient transported to PACU by holly segovia RN and Nuno hahn CRNA. Report given to alphonse DIAZ upon arrival. Patient connected to Monitors. [facility] History and physical note* Apolinar Henry MD - 07/09/2022 10:58 AM EDT I have examined the patient and reviewed the previous H&P completed on date 06/24/22 and there are no changes. See paper H&P in chart Apolinar Henry MD, 07/09/2022, 10:59 AM. [facility] History and physical note* Apolinar Henry MD - 07/09/2022 10:58 AM EDT I have examined the patient and reviewed the previous H&P completed on date 06/24/22 and there are no changes. See paper H&P in chart Apolinar Henry MD, 07/09/2022, 10:59 AM. documented in this [facility]10-18-[facility] History of Present illness Narrative* [...] IN 2017 Malignant neoplasm of female breast CT (myocardial infarction) with knee scope Past Surgical History: Procedure Laterality Date MASTECTOMY Right 1992 BLADDER REPAIR HYSTERECTOMY KNEE SURGERY Bilateral [address] DURING SURGERY ORAL SURGERY REMOVAL CATARACT (PEM) [...] procedure of Right breast reconstruction with tissue carpenter's assistant Was thoroughly reviewed with the patient. The [...] right breast reconstruction with placement of tissue carpenter's assistant Plan: We will proceed with surgery in the near future and the patient will call with any further questions. I spent 50 minutes total time with the patient. documented in this [facility]10-04-2022 History of Present illness Narrative* [...] We discussed direct to implant versus tissue carpenter's assistant and decided on tissue carpenter's assistant to allow flexibility in choosing her size. She understands in a second surgery would be required to either remove the port or replace the implant. I measured her for an implant today which will be a tissue carpenter's assistant--smooth round spectrum [phone] an approximately 12 cm diameter The procedure of Right breast reconstruction with tissue carpenter's assistant was thoroughly reviewed with the patient. The [...] preoperative preparation documented in this [facility]09-07-2022 History of Present illness Narrative* [...] types of reconstructions described included: 1) Tissue carpenter's assistant and implant based reconstruction, both single and [...] after considering the [facility] Note[facility]EDURE: XR HIPS CHARLIE 5V W [...] Electronically authenticated by: TY BOUDREAUX Date: 2022-01-13 17:45[facility]* Diagnosis Personal history of malignant neoplasm of breast- Primary 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 absence of breast and nipple [facility] Personal history of malignant neoplasm of breast- Primary 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 absence of breast and nipple 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 absence of breast and nipple [facility] S/P breast reconstruction- Primary Breast replaced by other means 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 absence of breast and nipple Personal history of malignant neoplasm of breast 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 absence of breast and nipple [facility] Acquired absence of right breast- Primary Acquired absence of right breast Personal history of malignant neoplasm of breast Personal history of malignant neoplasm of breast [facility] Acquired absence of right breast and nipple- Primary Acquired absence of breast and nipple Personal history of malignant neoplasm of breast S/P breast reconstruction Breast replaced by other means [facility] Diagnosis Acquired absence of right breast and nipple- Primary Acquired absence of breast and nipple S/P breast reconstruction Breast replaced by other means [facility] Diagnosis S/P breast reconstruction- Primary Breast replaced by other means [facility] Diagnosis S/P breast reconstruction- Primary Breast replaced by other means 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 absence of breast and nipple [facility] Diagnosis Right-sided chest pain [facility] Diagnosis Acquired absence of right breast and nipple- Primary Acquired absence of breast and nipple S/P breast reconstruction Breast replaced by other means [facility] Diagnosis Acquired absence of right breast and nipple- Primary Acquired absence of breast and nipple S/P breast reconstruction Breast replaced by other means [facility] note[facility] InformationNort Affinergy Other Evaluation noteNo assessment information available [facility] Work Phone: Evaluation note* Diagnosis Onset Date Resolution Status Breast asymmetry between [place]a breast and reconstructed breast acute Breast hypertrophy acute History of cancer of right breast acute [facility] Work Phone: Evaluation note* Diagnosis Onset Date Resolution Status BMI 32.0-32.9,adult acute Depression acute GERD (gastroesophageal reflux disease) acute Hyperlipidemia acute Hypothyroid acute Obesity acute NARA on CPAP acute [facility] Work Phone: Evaluation note* Diagnosis Onset Date Resolution Status Breast asymmetry between don[place] vera breast and reconstructed breast acute Breast hypertrophy acute History of cancer of right breast acute Breast asymmetry between [place] breast and reconstructed breast acute Breast hypertrophy acute History of cancer of right breast acute S/P breast reconstruction, right acute Breast asymmetry between [place] breast and reconstructed breast acute History of cancer of right breast acute S/P breast reconstruction, right acute Breast asymmetry between [place] vera breast and reconstructed breast acute Breast hypertrophy acute History of cancer of right breast acute S/P breast reconstruction, right acute [facility] Work Phone: History general Narrative - [...] side breast tissue expand er Surgical History [place] teeth Surgical History 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 Surgical History Heart cath Surgical History Dental implant Hospitalization History See above [employer] Other History general Narrative - Reported* Type [...] side breast tissue expand er Surgical History [place] teeth Surgical History 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 Surgical History Heart cath Surgical History Dental implant Surgical History Inguinal hernia repair Surgical History Steroid injections in back Hospitalization History See above [employer] Other InstructionsNot on filedocumented in this encounter [facility] Narrative* Auth/Cert Specialty Diagnoses / Procedures Referred By Contmarine t Referred To Contact Diagnoses 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 Personal history of malignant neoplasm of breast [Z85.3] 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] Procedures [place] TISSUE RESTAURANT MANAGEMENT INTERNSHIP PLACEMENT BREAST RECONSTRUCTION [place] IMPLNT BIO IMPLNT FOR SOFT TISSUE REINFORCEMENT RECONSTRUCTION BREAST TISSUE RESTAURANT MANAGEMENT INTERNSHIP INCLUDING SUBSEQUENT EXPANDERS IMPLANTATION BIOLOGIC IMPLANT FOR SOFT TISSUE REINFORCEMENT ADD-ON PX Apolinar Henry MD [address] [place] [address] Referral ID Status Reason Start Date Expiration Date Visits Re quested Visits Authorized [id number] 06/10/2022 1 1 [facility] Summary Purpose Family History No [...] Advance Directives No October 03, 2023 8:42am Advance Directive Response Recorded Date/ Time Advance Directives No October 03, 2023 9:42am Advance Directive Response Recorded Date/ Time Name of Medical Power of Digital Developer SPOUSE December 30, 2023 10:37am Living Will Yes December 30, 2023 10:37am Power of Digital Developer Yes December 29 10:37am Chief Complaint and Reason for Visit Chief Complaint Consult Chief Complaint Consult preop #1 left breast red/ right carpenter's assistant port Reason for Visit Breast asymmetry bet ween [place] breast and reconstructed breast Breast hypertrophy History of cancer of right breast Chief Complaint Wmn F/U 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 Reason for Visit BMI 32.0-32.9,adult Depression GERD (gastroesophageal reflux disease) Hyperlipidemia Hypothyroid Obesity NARA on CPAP Chief Complaint 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 WM [address] followu p Reason for Visit BMI 32.0-32.9,adult Depression GERD (gastroesophageal reflux disease) Hyperlipidemia Hypothyroid Obesity NARA on CPAP Chief Complaint Follow up Reason for Visit Breast asymmetry bet [place] breast and reconstructed breast Breast hypertrophy History of cancer of right breast Chief Complaint Follow up pre op #1 Left Breast reduction/port removal Reason for Visit Breast asymmetry bet ween [place] breast and reconstructed breast Breast hypertrophy History of cancer of right breast Chief Complaint Follow up pre op #1 Left Breast reduction/port removal pre op #2 left breast reduction/port removal Left Breast Reduction for Symmetry, Removal Right Left Breast Reduction for Symmetry, Removal Right Reason for Visit Breast asymmetry bet ween [place] breast and reconstructed breast Breast hypertrophy History of cancer of right breast Breast asymmetry between [place] breast and reconstructed breast Breast hypertrophy History of cancer of right breast S/P breast reconstruction, right Breast asymmetry between [place] breast and reconstructed breast History of cancer of right breast S/P breast reconstruction, right Breast asymmetry between [place] breast and reconstructed breast Breast hypertrophy History of cancer of right breast S/P breast reconstruction, right Additional Source Comments INFORMATION SOURCE (unrecogn ized section and content) DATE CREATED AUTHOR 03/07/2018 Cecil Nava [facility] DATE CREATED AUTHOR AUTHOR'S ORGANIZ ATION 08/23/2018 [facility] DATE CREATED AUTHOR AUTHOR'S ORGANIZ ATION 09/01/2018 [facility] DATE CREATED AUTHOR AUTHOR'S ORGANIZ ATION 12/11/2020 [facility] DATE CREATED AUTHOR AUTHOR'S ORGANIZ ATION 07/10/2022 [facility] DATE CREATED AUTHOR AUTHOR'S ORGANIZ ATION 11/20/2022 [facility] DATE CREATED AUTHOR AUTHOR'S ORGANIZ ATION 12/25/2022 [facility] DATE CREATED AUTHOR AUTHOR'S ORGANIZ ATION 10/22/2023 [facility] DATE CREATED AUTHOR AUTHOR'S ORGANIZ ATION 11/19/2023 [facility] DATE CREATED AUTHOR AUTHOR'S ORGANIZ ATION 11/22/2023 [facility] DATE CREATED AUTHOR AUTHOR'S ORGANIZ ATION 01/07/2024 [facility] DATE CREATED AUTHOR AUTHOR'S ORGANIZ ATION 01/25/2024 [facility] Reason for Visit (unrecogniz ed section [...] Op Visit Right breast reconst ruction with carpenter's assistant on 07/09/22. She complains of soreness, 7/10 [...] Care Teams (unrecognized sec tion and content) Piper Helper Relationship Specialty Start Date End Date Shaikh Kerry Villagran MD [address] [place] [phone] PCP - General Internal Medicine 05/20/22 Piper Helper Relationship Specialty Start Date End Date Shaikh Kerry Villagran MD [address] [place] [phone] PCP - General Internal Medicine 05/20/22 Piper Helper Relationship Specialty Start Date End Date Shaikh Kerry Villagran MD [address] [place] [phone] PCP - General Internal Medicine 05/20/22 Piper Helper Relationship Specialty Start Date End Date Shaikh Kerry Villagran MD [address] [place] [phone] PCP - General Internal Medicine 05/20/22 Piper Helper Relationship Specialty Start Date End Date Shaikh Kerry Villagran MD [address] [place] [phone] PCP - General Internal Medicine 05/20/22 Piper Helper Relationship Specialty Start Date End Date Shaikh Kerry Villagran MD [address] [place] [address] PCP - General Internal Medicine 05/20/22 Team [...] November 01, 2023 End: November 01, 2023 Piper Helper Relationship Specialty Start Date End Date Trino Montiel MD [address] [facility] [place] [address] PCP - General 04/28/13 Team Status: Inactive Member Role Status Dates Shaikh Tyshawn MD Primary Care Provider Active Start: December 09, 2023 End: December 09, 2023 KATERINA Terrazas Attending Provider Active Start: December 09, 2023 End: December 09, 2023 Team Status: Active Member Role Status Dates Dr. Shaikh Villagran Primary Care Provider Active Team Status: Inactive Member Role Status Dates Dr. Apolinar Henry MD Attending Provider Active Dr. Shaikh Villagran Primary Care Provider, Referring Pro vider Active Team Status: Active Member Role Status Dates Dr. Apolinar Henry MD Attending Provider, Other Prov ider Active Dr. Shaikh Villagran Primary Care Provider, Referring Pro vider Active Scheduled Active and Recently Administ ered [...] BE BASED ON THE PRIMARY CLINICAL RECORDS. [facility] [employer] [facility]. provides no warranty or guarantee of the accuracy or completeness of information in this document.
--- NOTE | 2024-01-26 19:03 | US_ITS ---
[facility] [place] [address] Patient Name: DELBERT SALAS MRN: [id number] date: 1950 Sex: F Assigned Patient Location: ER Current Patient Location: ER Accession/Order Number: [id number] Exam Date: 01/26/2024 19:27 Report Date: 01/26/2024 21:23 At the request of: PB JONAS Procedure: US venous doppler LE BI US venous doppler LE BI, 01/26/2024 7:27 PM EDT INDICATION: BLE swelling, hx recent surgery COMPARISON: None available at the time of dictation. FINDINGS: Bilateral lower extremity venous duplex.y The visualized veins of the venous system of each lower extremity are within normal limits with regard to spontaneous flow, phasic flow, augmentation and compression. No intraluminal thrombus formation is identified. No superficial venous thrombus is present. US/US venous doppler LE BI IMPRESSION: No evidence of acute deep or superficial venous thrombosis in either lower extremity venous system. Electronically authenticated by: ESPERANZA SALOMON Date: 01/26/2024 21:23
--- NOTE | 2024-01-26 19:04 | ED.GENADUL1 ---
HPI HPI - General Adult General Chief complaint: Recheck/Abnormal Lab/Rx Stated complaint: Post Surgical Complications Time Seen by Provider: 01/26/24 18:54 Source: patient and family Mode of arrival: Wheelchair Limitations: no limitations History of Present Illness HPI narrative: 73-year-old female presents to the emergency department with for evaluation bilateral lower extremity swelling. Patient with history of mastectomy, revision surgeries, expanders. States chronic history of lower extremity edema, has been worse over the past few days. She was sent in by her plastic surgeon Dr. Suazo who expressed concerns about DVT. She denies any chest pain, shortness of breath, fever, chills. Quality:?As above Severity:?Moderate Timing:?As above Context: Normal setting and activity? Modifying factors:?None Associated symptoms: None Related Data Home Medications ?Medication ?Instructions ?Recorded ?Confirmed aspirin 81 mg tablet,delayed 81 mg PO DAILY 05/31/23 01/26/24 release (Adult Low Dose Aspirin) calcium carbonate 600 mg-vitamin 1 tab PO DAILY 05/31/23 01/26/24 D3 5 mcg (200 unit) tablet (Calcium 600 + D(3)) citalopram 20 mg tablet 30 mg PO DAILY 05/31/23 01/26/24 esomeprazole magnesium 40 mg 40 mg PO DAILY 05/31/23 01/26/24 capsule,delayed release (Nexium) famotidine 20 mg tablet 20 mg PO DAILY 05/31/23 01/26/24 fesoterodine 8 mg tablet,extended 8 mg PO DAILY 05/31/23 01/26/24 release 24 hr flaxseed oil 1,000 mg capsule 1,000 mg PO DAILY 05/31/23 01/26/24 lactobacillus combination no.4 3 3,000 mmu cells PO DAILY 05/31/23 01/26/24 billion cell capsule (Probiotic) levothyroxine 50 mcg capsule 50 mcg PO DAILY 05/31/23 01/26/24 melatonin 10 mg capsule 10 mg PO DAILY 05/31/23 01/26/24 multivitamin (Daily Multi-Vitamin 1 tab PO DAILY 05/31/23 01/26/24 tablet) semaglutide 0.25 mg or 0.5 mg (2 0.25 mg subcut QWEEK 05/31/23 01/26/24 mg/3 mL) subcutaneous pen injector (Ozempic) simvastatin 20 mg tablet 20 mg PO DAILY 05/31/23 01/26/24 Allergies Allergy/AdvReac Type Severity Reaction Status Date / Time Penicillins Allergy Verified 01/26/24 18:39 Sulfa (Sulfonamide Allergy Verified 01/26/24 18:39 Antibiotics) acetaminophen [From Percocet] AdvReac erythema Verified 01/26/24 18:39 oxycodone [From Percocet] AdvReac erythema Verified 01/26/24 18:39 Opioid HPI Opioid Management Most Recent Opioid Data: Last Pain Scale 3 11/15/23 10:33 Review of Systems ROS Narrative CONST: Denies fever, chills HENT: Denies congestion, sore throat EYES: Denies eye redness, visual disturbance RESP: Denies cough, shortness of breath CV: + Lower extremity edema denies chest pain, palpitations GI: Denies abd pain, nausea, vomiting : Denies dysuria, flank pain MS: Denies back pain, myalgias SKIN: Denies color change, rash NEURO: Denies numbness, weakness PSYCHIATRIC: Denies confusion, agitation PFSH PFSH Medical History Osteoarthritis ?M19.90 - Unspecified osteoarthritis, unspecified site (ICD-10) H/O malignant neoplasm of breast ?Z85.3 - Personal history of malignant neoplasm of breast (ICD-10) Acid reflux ?K21.9 - Gastro-esophageal reflux disease without esophagitis (ICD-10) Diabetes ?E11.9 - Type 2 diabetes mellitus without complications (ICD-10) Sleep apnea ?G47.30 - Sleep apnea, unspecified (ICD-10) High cholesterol ?E78.00 - Pure hypercholesterolemia, unspecified (ICD-10) Surgical History S/P herniorrhaphy ?Z98.890 - Other specified postprocedural states (ICD-10) ?Z87.19 - Personal history of other diseases of the digestive system (ICD-10) H/O mastectomy ?Z90.10 - Acquired absence of unspecified breast and nipple (ICD-10) H/O arthroscopy of shoulder ?Z98.890 - Other specified postprocedural states (ICD-10) H/O arthroscopy of knee ?Z98.890 - Other specified postprocedural states (ICD-10) H/O bladder repair surgery ?Z98.890 - Other specified postprocedural states (ICD-10) H/O: hysterectomy ?Z90.710 - Acquired absence of both cervix and uterus (ICD-10) H/O breast reconstruction ?Z98.890 - Other specified postprocedural states (ICD-10) Social History Smoking status: Never smoker Exam Narrative Exam Narrative: Vital signs reviewed Nurses notes noted CONST: Nontoxic, well appearing, well nourished, in no distress.? No diaphoresis.?? HENT: normocephalic, atraumatic, moist mucous membrane, no abnormalities of the nose noted, hearing normal EYES: normal appearing conjunctiva, no apparent discharge bilat NECK: normal appearance CV: normal rate, regular rhythm, no murmur. + Mild, generalized edema to bilateral lower extremities. There is some indentation noted from her socks to ankles and feet. GI: normal bowel sounds, soft, no distension, nontender MS: tenderness SKIN: no pallor NEURO: A&Ox 3, no focal findings PSYCH: normal mood, affect Constitutional Vital Signs, click to edit/add: Last Vital Signs Temp 98.1 F 01/26/24 18:40 Pulse 63 01/26/24 20:38 Resp 14 01/26/24 20:38 BP 174/96 H 01/26/24 20:38 Pulse Ox 95 01/26/24 20:38 O2 Del Method Room Air 01/26/24 18:40 Course Reevaluation(s) Reevaluation #1: Discussed with patient and results, plan, disposition. They are agreeable and voice no other questions or concerns. Time: 21:37 Vital Signs Vital signs: Vital Signs Temperature 98.1 F 01/26/24 18:40 Pulse Rate 63 01/26/24 18:40 Respiratory Rate 16 01/26/24 18:40 Blood Pressure 145/92 H 01/26/24 18:40 Pulse Oximetry 97 01/26/24 18:40 Oxygen Delivery Method Room Air 01/26/24 18:40 Temperature 98.1 F 01/26/24 18:40 Pulse Rate 63 01/26/24 20:38 Respiratory Rate 14 01/26/24 20:38 Blood Pressure 174/96 H 01/26/24 20:38 Pulse Oximetry 95 01/26/24 20:38 Oxygen Delivery Method Room Air 01/26/24 18:40 Medical Decision Making MDM Narrative Medical decision making narrative: This is a pleasant 73-year-old female presented to the emergency department with complaint of lower extremity swelling. Sent in by her plastic surgeon to rule out DVT as she recently had surgical procedure. Denies chest pain, shortness of breath. On arrival, afebrile, vital signs are stable. On exam, nontoxic, well-appearing patient in no distress. Heart regular rate and rhythm. Lung sounds clear and equal bilaterally. She displays edema to bilateral lower extremities. Not necessarily pitting, but there is some indentation from her socks to her ankles and feet. Neurovascularly intact. Labs reveal no leukocytosis, anemia, electrolyte imbalance, renal impairment. Ultrasound bilateral lower extremity imaging, per radiologist reveals no evidence of DVT. Favor nonspecific bilateral lower extremity swelling DVT less likely based on imaging Renal impairment less likely based on lab testing. Patient was discussed with plastic surgeon History also provided by . Disposition ? The patient was discharged. Plan: Patient will be discharged to home. Condition at time of disposition: stable ? Advised to follow up with primary provider. Advised to return for any worsening and/or development of new, concerning signs or symptoms PLEASE NOTE: Portions of the medical record may have been produced using electronic fishing tackle repairer and may contain errors with respect to translation of words which may not have been identified prior to finalization of the chart. Lab Data Labs: Lab Results 01/26/24 Range/Units 19:15 WBC 8.2 (4.0-11.0) 10^3/uL RBC 4.45 (4.20-5.40) 10^6/uL Hgb 12.8 (12.0-16.0) g/dL Hct 39.1 (36.0-48.0) % MCV 87.9 (81.0-99.0) fL MCH 28.8 (26.7-34.0) pg MCHC 32.7 (29.9-35.2) g/dL RDW 13.8 (11.0-15.0) % Plt Count 168 (150-450) 10^3/uL MPV 10.3 (9.5-13.5) fL Neut % (Auto) 63.3 (43.0-75.0) % Lymph % (Auto) 25.7 (20.5-60.0) % [place] % (Auto) 6.9 (1.7-12.0) % Eos % (Auto) 3.3 (0.9-7.0) % Baso % (Auto) 0.4 (0.2-2.0) % Neut # (Auto) 5.2 (1.4-6.5) 10^3/uL Lymph # (Auto) 2.1 (1.2-3.8) 10^3/uL [place] # (Auto) 0.6 (0.3-0.8) 10^3/uL Eos # (Auto) 0.3 (0.0-0.7) 10^3/uL Baso # (Auto) 0.0 (0.0-0.1) 10^3/uL Abs Immat Gran (auto) 0.03 (0.00-0.03) 10^3/uL Imm/Tot Granulo (auto) 0.4 (0.0-0.5) % Sodium 138 (136-145) mmol/L Potassium 3.6 (3.5-5.1) mmol/L Chloride 103 (98-107) mmol/L Carbon Dioxide 29.7 (21.0-32.0) mmol/L Anion Gap 8.9 BUN 13.0 (7.0-18.0) mg/dL Creatinine 0.74 (0.55-1.02) mg/dL Est GFR ( Amer) >60 (>=60) Est GFR (Non-Af Amer) >60 (>=60) BUN/Creatinine Ratio 17.6 Glucose 88 (74-106) mg/dL Calcium 9.4 (8.5-10.1) mg/dL Discharge Plan Discharge Stand Alone Forms: Portal Instructions Chief Complaint: Recheck/Abnormal Lab/Rx Clinical Impression: Peripheral edema Patient Disposition: Home, Self-Care Time of Disposition Decision: 21:34 Condition: Good Mode of Transportation: Private Vehicle Prescriptions / Home Meds: No Action levothyroxine 50 mcg capsule 50 mcg PO DAILY citalopram 20 mg tablet 30 mg PO DAILY fesoterodine 8 mg tablet extended release 24 hr 8 mg PO DAILY esomeprazole magnesium [Nexium] 40 mg capsule,delayed release(DR/EC) 40 mg PO DAILY simvastatin 20 mg tablet 20 mg PO DAILY famotidine 20 mg tablet 20 mg PO DAILY aspirin [Adult Low Dose Aspirin] 81 mg tablet,delayed release (DR/EC) 81 mg PO DAILY Hold Instructions: post surgery calcium carbonate-vitamin D3 [Calcium 600 + D(3)] 600 mg-5 mcg (200 unit) tablet 1 tab PO DAILY multivitamin [Daily Multi-Vitamin] Tablet 1 tab PO DAILY melatonin 10 mg capsule 10 mg PO DAILY flaxseed oil 1,000 mg capsule 1,000 mg PO DAILY Ozempic 0.25 mg or 0.5 mg (2 mg/3 mL) pen injector 0.25 mg subcut QWEEK Rx Instructions: for 4 weeks Probiotic 3 billion cell capsule 3,000 mmu cells PO DAILY Rx Instructions: administer with a meal Print Language: Montenegrin Instructions: Leg Edema (ED) Referrals: Shaikh Villagran MD [Primary Care Provider] - 1 week
[2024-01-26 19:23] LABS: Basophils Percent Auto 0.4 % (0.2-2.0); Eosinophils Absolute Auto 0.3 10^3/uL (0.0-0.7); Eosinophils Percent Auto 3.3 % (0.9-7.0); Hematocrit 39.1 % (36.0-48.0); Hemoglobin 12.8 g/dL (12.0-16.0); Immature Granulocytes Abs Auto 0.03 10^3/uL (0.00-0.03); Immature Granulocytes Pct Auto 0.4 % (0.0-0.5); Lymphocytes Absolute Auto 2.1 10^3/uL (1.2-3.8); Lymphocytes Percent Auto 25.7 % (20.5-60.0); Mean Corpuscular HGB Conc 32.7 g/dL (29.9-35.2); Mean Corpuscular Hemoglobin 28.8 pg (26.7-34.0); Mean Corpuscular Volume 87.9 fL (81.0-99.0); Mean Platelet Volume 10.3 fL (9.5-13.5); Monocytes Absolute Auto 0.6 10^3/uL (0.3-0.8); Monocytes Percent Auto 6.9 % (1.7-12.0); Neutrophils Absolute Auto 5.2 10^3/uL (1.4-6.5); Neutrophils Percent Auto 63.3 % (43.0-75.0); Platelet Count 168 10^3/uL (150-450); Red Blood Count 4.45 10^6/uL (4.20-5.40); Red Cell Distribution Width 13.8 % (11.0-15.0); White Blood Count 8.2 10^3/uL (4.0-11.0)
[2024-01-26 19:31] LABS: Anion Gap 8.9; BUN Creatinine Ratio 17.6; Calcium 9.4 mg/dL (8.5-10.1); Carbon Dioxide 29.7 mmol/L (21.0-32.0); Chloride 103 mmol/L (98-107); Estimated GFR (African America >60 (>=60); Estimated GFR (Non-African Ame >60 (>=60); Glucose 88 mg/dL (74-106); Potassium 3.6 mmol/L (3.5-5.1); Sodium 138 mmol/L (136-145)
[2024-01-26 20:38] VITALS: BP 174/96; PULSE 63; O2SAT 95
[2024-01-26 21:39] VITALS: BP 152/90; PULSE 63; O2SAT 95
== END 2024-01-26 21:48 | disposition home or self-care (01) ==
PROVIDERS: Physician Assistant; Emergency Provider Emergency Medicine; PCP Internal Medicine
DX: R60.9 Edema, unspecified (principal); Z90.10 Acquired absence of unspecified breast and nipple; Z79.82 Long term (current) use of aspirin; Z79.899 Other long term (current) drug therapy; Z79.890 Hormone replacement therapy; M19.90 Unspecified osteoarthritis, unspecified site; Z85.3 Personal history of malignant neoplasm of breast; K21.9 Gastro-esophageal reflux disease without esophagitis; E11.9 Type 2 diabetes mellitus without complications; G47.30 Sleep apnea, unspecified; Z98.890 Other specified postprocedural states; Z90.710 Acquired absence of both cervix and uterus
CPT/HCPCS: 36415; 80048; 85025; 93970; 99284

== ENCOUNTER 2024-03-15 08:35 | Outpatient (OUT) | payer MEDICARE, OTHER, SELFPAY ==
--- OUTSIDE RECORDS SUMMARY | 2024-03-15 08:44 | XMS_ITS ---
Patient Summarization (C-CDA 2.1 CCD) Created on: March 15, 2024 LETICIA NOLASCOA LIZETH : 1950 Sex: Undifferentiated Author Organization Sample organization Care Team Providers Care Subassembly Assembler Name Role Phone NANCY MARTINEZ Unavailable Unavailable NANCY MARTINEZ Unavailable Unavailable NADERERTRINO~[id number] UNKNOWN Unavailable Unavailable PEARLISA, GRUPO L Unavailable Unavailable MD Procedure Practitioner Unavailab le ADAM SKINNER Surgeon Unavailable ADAM SKINNER Admitting Unavailable NADERER, TRINO Primary Care Unavailable NADERER TRINO Referring Unavailable ADAM SKINNER Attending Unavailable LASHA BAKER Surgeon Unavailable MD Procedure Practitioner Unavailab le Tyshawn ADAMSON, Shaikh Kerry Primary Care Provider Shaikh Kerry Villagran MD Primary Care Provider SHAIK VILLAGRANHOLY [facility] SYSTEM[facility]UELA Primary Care Unavailab le GHAZOUL, APOLINAR Admitting Unavailable GHAZOUL, APOLINAR Attending Unavailable GHAZOUL, APOLINAR Referring Unavailable GHAZOUL, APOLINAR Attending Unavailable GHAZOUL, APOLINAR Referring Unavailable PADILLAJACIEL [facility]MARY Primary Care Unavailab le FAWWALEAH ReinaLANTER[facility]MENT[facility] CENTERMANUELA Primary Care Unavailab le SELF, SELF Referring Unavailable GHAZOUL, APOLINAR Attending Unavailable PADILLAWJACIEL [facility] Primary Care Unavailab le GHAZOUL, APOLINAR Referring Unavailable GHAZOUL, APOLINAR Attending Unavailable PADILLAST. [facility] Primary Care Unavailab le SELF, SELF Referring Unavailable GHAZOUL, APOLINAR Attending Unavailable PADILLAST. [facility] Primary Care Unavailab le SELF, SELF Referring Unavailable GHAZOUL, APOLINAR Attending Unavailable PADILLAST. [facility]ITAL[facility] Primary Care Unavailab le SELF, SELF Referring Unavailable GHAZOUL, APOLINAR Attending Unavailable PADILLAST. [facility] Primary Care Unavailab le SELF, SELF Referring Unavailable GHAZOUL, APOLINAR Attending Unavailable FAWWAD, [facility] Primary Care Unavailab le SELF, SELF Referring Unavailable GHAZOUL, APOLINAR Attending Unavailable FAWWAD, [facility]UL Primary Care Unavailab le SELF, SELF Referring Unavailable GHAZOUL, APOLINAR Attending Unavailable FAWWAD, [facility] Primary Care Unavailab le SELF, SELF Referring Unavailable GHAZOUL, APOLINAR Attending Unavailable FAWWAD, [facility] Primary Care Unavailab le SELF, SELF Referring Unavailable GHAZOUL, APOLINAR Attending Unavailable FAWWAD, [facility] Primary Care Unavailab le SELF, SELF Referring Unavailable GHAZOUL, APOLINAR Attending Unavailable FAWWAD, [facility] Primary Care Unavailab le SELF, SELF Referring Unavailable GHAZOUL, APOLINAR Attending Unavailable FAWWAD, [facility]UL Primary Care Unavailab le SELF, SELF Referring Unavailable GHAZOUL, APOLINAR Attending Unavailable FAWWAD, [facility] Primary Care Unavailab le FAWWAD, [facility] Primary Care Unavailab le FAWWAD, [facility] Primary Care Unavailab le SELF, SELF Referring Unavailable GHAZOUL, APOLINAR Attending Unavailable FAWWAD, FREED H Attending Unavailable FAWWAD, FREED H Consulting Unavailable FAWWAD, FREED H Primary Care Unavailable FAWWAD, FREED H Admitting Unavailable FAWWAD, FREED H Attending Unavailable FAWWAD, FREED H Consulting Unavailable FAWWAD, FREED H Primary Care Unavailable FAWWAD, FREED H Admitting Unavailable FAWWAD, FREED H Primary Care Unavailable ZIEBER, DR TY Marquez Consulting Unavailable FAWWAD, FREED H Admitting Unavailable FAWWAD, FREED H Attending Unavailable FAWWAD, FREED H Consulting Unavailable WEST, DR ADAM Castellanos Admitting Unavailable WEST, DR ADAM Castellanos Attending Unavailable WEST, DR ADAM Castellanos Consulting Unavailable FAWWAD, FREED H Primary Care Unavailable JUVENALBEKA, DR TY Marquez Consulting Unavailable OMAHA, DR ADAM Castellanos Attending Unavailable WEST, DR ADAM Castellanos Admitting Unavailable FAWWAD, FREED H Primary Care Unavailable FAWWAD, FREED H Consulting Unavailable MARCELLUS, DR ADAM Castellanos Admitting Unavailable MARCELLUS, DR ADAM Castellanos Attending Unavailable FAWJACIEL, FREED H Primary Care Unavailable ADAM SKINNER [...] Apolinar Henry Attending Provider Adriana Lyn Unavailable RENO Jordan Attending Provider [phone] MD Tyshawn [facility] Primary Care Provider Yolette BOJORQUEZ-FERN CUTTER, Kevin Workman Attending Ela Villagran MD, [facility] Rocio Villagran MD, [facility] Rocio Betancourt MD, Jovan Cagle Attending Rocio Villagran MD, [facility] Rocio Vazquez PA-C, Agnieszka Salcedo Attending Shruti Villagran MD, [facility] Primary [facility] Rocio Betancourt MD, Jovan Cagle Referring Rocio Field MD, Alycia Jerome Attending Gian Villagran MD, [facility] Rocio Betancourt MD, Jovan Cagle Attending Rocio Villagran MD, [facility] Rocio Betancourt MD, Jovan Cagle Attending Rocio Villagran MD, [facility] Rocio Betancourt MD, Jovan Cagle Attending Rocio Betancourt MD, Adam Cardenas Attending Anna Villagran MD, [facility] Primary [facility] Rocio Villagran MD, [facility] Primary Care Rocio Betancourt MD, Jovan Cagle Attending Rocio Villagran MD, [facility] Rocio Betancourt MD, Jovan Cagle Attending Rocio Villagran MD, [facility] Unasana Dallas DO, Nancy Gonzalez Attending Shruti vailable Frederick ADAMSON, Andrius Hernandez Attending Unavailable Tyshawn ADAMSON, [facility] Rocio Villagran MD, [facility] Rocio Mack MD, Andrius David Attending Unavailable Frederick ADAMSON, Andrius David Attending Unavailable Tyshawn ADAMSON, [facility] Rocio Mack MD, Andrius David Attending Unavailable Tyshawn ADAMSON, [facility] Unavai tejal De La Vega RESOURCE FORESTER-FERN CUTTER, Kevin Workman Attending Shrutiv bethel Villagran MD, [facility] Unasana De La Vega RESOURCE FORESTER-FERN CUTTER, Kevin Workman Attending Unav ailbriana Villagran MD, [facility] Rocio Villagran MD, [facility] Unavai tejal De La Vega RESOURCE FORESTER-FERN CUTTER, Kevin Workman Attending Shrutiv Trino Dobbs MD Primary Care Provider Dr. Apolinar Henry Attending Provider [phone] SHAIKH VILLAGRAN Attending SHAIKH Joseph Attending Dr. Dorothea Joseph Primary Care Provider [phone] Dr. Dorothea Villagran Referring Provider Dr. Apolinar Henry Other Provider [phone] Shaikh Villagran Primary Care Unavailable Susanne Jordan Attending Unavailable Missler, Susanne R Admitting Unavailable Fawwad, [facility] Primary Care Unavailable Ghazoul, Apolinar Attending Unavailable Fawwad, Freed Referring Unavailable Fawwad, [facility] Primary Care Unavailable Ghazoul, Apolinar Attending Unavailable Fawwad, [facility] Referring Unavailable Fawwad, [facility] Primary Care Unavailable Ghazoul, Apolinar Attending Unavailable Fawwad, Freed Referring Unavailable Ghazoul, Apolinar Attending Unavailable Fawwad, Freed Referring Unavailable F[place]wad, [facility] Primary Care Unavailable Ghazoul, Apolinar Attending Unavailable Ghazoul, Apolinar Attending Unavailable Ghazoul, Apolinar Attending Unavailable F[place]wad, [facility] Primary Care Unavailable Fawwad, Freed Referring Unavailable Ghazoul, Apolinar Attending Unavailable Ghazoul, Apolinar Attending Unavailable Ghazoul, Apolinar Referring Unavailable Ghazoul, Apolinar Consulting Unavailable [facility], [facility] Primary Care Unavailable Ghazoul, Apolinar Attending Unavailable Ghazoul, Apolinar Attending Unavailable [facility], [facility] Primary Care Unavailable Ghazoul, Apolinar Attending Unavailable Fawad, [facility] Referring Unavailable ALI, IMRAN I Attending Unavailable NADERER, TRINO Referring Unavailable NADERER, TRINO Primary Care Unavailable ALI, IMRAN I Referring Unavailable NADERER, TRINO Primary Care Unavailable ALI, IMRAN I Referring Unavailable NADERER, TRINO Primary Care Unavailable ALI, IMRAN I Referring Unavailable NADERER, TRINO Primary Care Unavailable Allergies Allergy Classification Reported Allergen(s) Allergy Type Date of Onset Reaction(s) Facility Acetaminophen (1 source) Acetaminophen Drug Allergy 4 [facility] Opioid Agonists (1 source) oxyCODONE Drug Allergy 4 [facility] Penicillins (antibiotic) (1 source) Penicillins Drug Allergy 4 [facility] Sulfonamides (antibiotic) (1 source) Sulfonamides (Antibiotic) Drug Allergy 4 [facility] (2 sources) cortisone; Translations: [cortisone] Drug Allergy [facility] Repository (20 sources) Penicillins; Translations: [penicillins] Propensity to adverse reactions (disorder) 3 Itching [facility] Repository (1 source) sulfamethoxazole; Translations: [sulfamethoxazole ] Drug Allergy AOF [facility] Repository (6 sources) Sulfonamides (Antibiotic) Drug allergy (disorder) 3 Itching [facility] Repository (16 sources) sulfaSALAzine; Translations: [SULFASALAZINE] [facility] (13 [facility] Sulfonamides (Antibiotic) Propensity to adverse reactions to drug [facility] (5 sources) Penicillin Drug Allergy Unknown [facility] Other (5 sources) Substance with sulfonamide structure and antibacterial mechanism of action (substance) Drug allergy Unknown [facility] Other (6 sources) Sulfonamides (Antibiotic) Allergy to substance 3 [facility] (1 source) Sulfonamides (Antibiotic); Translations: [sulfa drugs] Propensity to adverse reactions to drug (disorder) [facility] Repository (2 sources) Acetaminophen; Translations: [acetaminophen] Drug Allergy 4 [facility] (2 sources) oxyCODONE; Translations: [oxycodone] Drug Allergy 4 [facility] (2 sources) Sulfonamides (Antibiotic) Drug allergy (disorder) 3 [facility] Repository (2 sources) Acetaminophen / oxyCODONE; Translations: [OXYCODONE-ACETAM INOPHEN] [facility] En[facility]ters Encounter Date Encounter Type Care Provider Facility Start: 03-02-2024 End: 03-02-2024 ambulatory [facility] Start: 03-01-2024 End: 03-01-2024 ambulatory Apolinar Henry Facility[facility] Start: 02-16-2024 End: 02-16-2024 ambulatory [facility] Tyshawn Facility[facility] Start: 02-02-2024 End: 02-02-2024 ambulatory [facility] Facility[facility] Start: 01-31-2024 End: 01-31-2024 ambulatory [facility] Work Phone: Start: 01-31-2024 End: 01-31-2024 Patient encounter procedure [facility] Work Phone: Start: 01-26-2024 End: 01-26-2024 ambulatory Shaikh Tyshawn Facility:[facility] Start: 01-21-2024 ambulatory Apolinar Henry Facility [facility] Start: 01-21-2024 Non-patient / Non-visit Dr. Phil Villagran Work Phone: [facility] Start: 01-21-2024 End: 01-21-2024 Admission to same day surgery center Dr. Shaikh Villagran Work Phone: [facility] Start: 01-21-2024 End: 01-21-[address] Shaikh Villagran Work Phone: [facility] Work Phone: Start: 01-06-2024 End: 01-06-2024 ambulatory SHAIKH TYSHAWN Not Available Start: 01-05-2024 End: 01-05-[address] Shaikh Villagran Work Phone: [facility] Work Phone: Start: 01-05-2024 End: 01-05-2024 ambulatory Shaikh Tyshawn Facility:[facility] Start: 12-22-2023 End: 12-22-[address] Apolinar Henry Work Phone: [facility] Work Phone: Start: 12-22-2023 End: 12-22-2023 ambulatory Apolinar Henry [facility] Work Phone: Start: 12-14-2023 End: 12-14-[address] Apolinar Henry Work Phone: [facility] Work Phone: Start: 12-14-2023 End: 12-14-2023 ambulatory Apolinar [facility] Work Phone: Start: 12-09-2023 End: 12-09-2023 ambulatory [facility] Work Phone: Start: 12-09-2023 End: 12-09-2023 Patient encounter procedure [facility] Work Phone: Start: 11-29-2023 End: 11-29-2023 ambulatory SHAIKH TYSHAWN Not Available Start: 11-25-2023 Telephone encounter Chelsea Acevedo [facility] Neurology Comment on above: Results Start: 11-18-2023 End: 11-18-2023 ambulatory [facility] Start: 11-18-2023 End: 11-18-2023 ambulatory [facility] Start: 11-15-2023 End: 11-16-2023 ambulatory Shaikh Kerry Villagran MD Facility:[facility] [place] Start: 11-01-2023 End: 11-01-2023 ambulatory MD Shaikh Villagran Work Phone: [facility] Work Phone: Start: 11-01-2023 End: 11-01-2023 Patient encounter procedure MD Shaikh Villagran Work Phone: [facility] Work Phone: Start: 10-11-2023 End: 10-12-2023 ambulatory Shaikh Kerry Villagran MD Facility[facility] Start: 09-15-2023 End: 09-16-2023 ambulatory Shaikh Kerry Villagran MD Facility:[facility] Start: 09-01-2023 End: 09-02-2023 ambulatory Kevin De La Vega APRN-FERN CUTTER Facility:[facility] Start: 08-30-2023 Registered Recurring MD Shaikh Villagran Work Phone: [facility] Work Phone: Start: 08-30-2023 End: 08-30-2023 ambulatory Shaikh Tyshawn Facility: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 Adriana Lyn [facility] Start: 07-21-2023 End: 07-21-2023 ambulatory Adriana Lyn Other [facility] Other Start: 07-20-2023 End: 07-21-2023 ambulatory Shaikh Kerry Villagran MD Facility:[facility] Start: 07-05-2023 [facility] f/u Susanne Julian [facility] Start: 07-05-2023 End: 07-06-2023 ambulatory Vanessa Mack MD [facility] Other Start: 07-01-2023 End: 07-01-2023 ambulatory Shaikh Kerry Villagran MD Facility:[facility] Start: 06-30-2023 End: 06-30-[address] Apolinar Henry Work Phone: [facility] Work Phone: Start: 06-30-2023 End: 06-30-2023 ambulatory Apolinar Henry [facility] Work Phone: Start: 06-21-2023 End: 06-22-2023 ambulatory Vanessa Mack MD Facility:[facility] Start: 06-16-2023 End: 06-17-2023 ambulatory Shaikh Kerry Villagran MD Facility:[facility] Start: 06-02-2023 End: 06-03-2023 ambulatory Shaikh Kerry Villagran MD Facility:[facility] Start: 06-01-2023 End: 06-02-2023 ambulatory Adam Betancourt MD Facility:[facility] Start: 06-01-2023 End: 06-02-2023 ambulatory Shaikh Kerry Villagran MD Facility:[facility] Start: 05-31-2023 End: 06-01-2023 ambulatory Vanessa Mack MD Facility:[facility] Start: 05-27-2023 ([facility] RD FU) [facility] F/ U [employer] Adriana Lyn [facility] Start: 05-27-2023 End: 05-27-2023 ambulatory Adriana Lyn Other [facility] Other Start: 05-05-2023 End: 05-05-[address] Apolinar Henry Work Phone: [facility] Work Phone: Start: 05-05-2023 End: 05-05-2023 ambulatory Apolinar Henry [facility] Work Phone: Start: 04-12-2023 End: 04-12-2023 ambulatory Susanne Jordan Other [facility] Other Start: 04-12-2023 Telephone encounter [facility] Start: 03-15-2023 [facility] f/u [facility] Start: 03-15-2023 End: 03-15-2023 ambulatory [facility] Other [facility] Other Start: 02-18-2023 End: 02-19-2023 ambulatory Kevin De La Vega APRN-FERN CUTTER Facility:[facility] Start: 01-20-2023 End: 01-21-2023 ambulatory Shaikh Kerry Villagran MD Facility:[facility] Start: 01-01-[address] ADAM SCHWARTZ Facilit y:[facility] Start: 12-23-2022 End: 12-24-2022 ambulatory Kevin De La Vega APRN-FERN CUTTER [facility] Start: 12-16-2022 End: 12-17-[address] ADAM SCHWARTZ Facility:[facility] Start: 11-18-2022 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); S/P breast reconstruction Start: 10-21-2022 [facility] Start: 10-21-2022 End: 10-21-2022 Office outpatient visit 25 minutes Apolinar Henry MD Work Phone: [facility] Plastic Surgery Comment on above: 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); S/P breast reconstruction Start: 10-07-2022 [facility] Start: 10-07-2022 End: 10-07-2022 Postop follow up visit related to original px Apolinar Henry MD Work Phone: [facility] Plastic Surgery Comment on above: 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); S/P breast reconstruction Start: 09-23-2022 ambulatory [facility] Start: 09-23-2022 End: 09-23-2022 Postop follow up visit related to original px Apolinar Henry MD Work Phone: [facility] Plastic Surgery Comment on above: 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); S/P breast reconstruction Start: 09-16-2022 End: 09-17-2022 ambulatory SHAIKH Tc AmandaMENuno Facility:[facility] Start: 09-16-2022 End: 09-17-[address] TY BOUDREAUX Facility:[facility] Start: 09-15-2022 ambulatory [facility] Start: 09-15-2022 End: 09-15-2022 Subsequent hospital visit by physician Apolinar Henry MD Work Phone: [facility] Diagnostic Radiology Comment on above: Arrived Start: 08-26-2022 ambulatory [facility] Start: 08-12-2022 [facility] Start: 08-12-2022 End: 08-12-2022 Postop follow up visit related to original debi Henry MD Work Phone: [facility] Plastic Surgery Comment on above: S/P breast reconstru ction (Primary Dx); Personal history of malignant neoplasm of breast; Acquired absence of right breast and nipple Start: 08-05-2022 [facility] Start: 08-05-2022 End: 08-05-2022 Postop follow up visit related to original debi Henry MD Work Phone: [facility] Plastic Surgery Comment on above: S/P breast reconstru ction (Primary Dx) Start: 07-22-2022 [facility] Start: 07-22-2022 End: 07-22-2022 Postop follow up visit related to original debi Henry MD Work Phone: [facility] Plastic Surgery Comment on above: 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); S/P breast reconstruction Start: 07-15-2022 [facility] Start: 07-15-2022 End: 07-15-2022 Postop follow up visit related to original px Apolinar Henry MD Work Phone: [facility] Plastic Surgery Comment on above: 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); Personal history of malignant neoplasm of breast; S/P breast reconstruction Start: 07-09-2022 End: 07-09-2022 [facility] Start: 07-09-2022 End: 07-09-2022 Subsequent hospital visit by physician Apolinar Henry MD Work Phone: [facility] Comment on above: Personal history of malignant neoplasm of breast Start: 06-30-2022 [facility] Start: 06-30-2022 End: 06-30-2022 Office outpatient visit 40 minutes Apolinar Henry MD Work Phone: [facility] Plastic Surgery Comment on above: S/P breast reconstru ction (Primary Dx); Acquired absence of right breast and nipple; Personal history of malignant neoplasm of breast Start: 06-25-2022 Encounter for other preprocedural examination [facility] Start: 06-23-2022 [facility] Start: 06-22-2022 End: 06-23-2022 ambulatory [facility] Facility:[facility] Start: 06-22-2022 End: 06-23-2022 [facility] Start: 06-16-2022 ambulatory [facility] Start: 06-16-2022 Encounter for other preprocedural examination [facility] Start: 06-16-2022 [facility] Start: 06-16-2022 End: 06-16-2022 Office outpatient visit 25 minutes Apolinar Henry MD Work Phone: [facility] Plastic Surgery Comment on above: Personal history of malignant neoplasm of breast (Primary Dx); Acquired absence of right breast and nipple Start: 05-21-2022 End: 06-20-2022 [facility] Start: 05-20-2022 ambulatory SHAIKH KERRY [facility] Start: 05-20-2022 End: 05-20-2022 Office outpatient new 60 minutes Apolinar Henry MD Work Phone: [facility] Plastic Surgery Comment on above: Personal history of malignant neoplasm of breast (Primary Dx); Acquired absence of right breast and nipple Start: 03-24-2022 End: 03-25-2022 ambulatory SHAIKH Tc PRABHAKARMENuno Facility: Start: 03-02-2022 End: 03-02-2022 ambulatory SHAIKH Tc VILLAGRAN Facility: Start: 01-13-2022 End: 01-14-2022 ambulatory SHAIKH Tc VILLAGRAN Facility: Start: 06-07-2020 End: 06-08-2020 Patient encounter procedure MD Facility:[facility] Start: 08-05-2018 End: 08-05-2018 Emergency department patient visit [place] Facility:[facility] Start: 07-27-2017 End: 10-14-2017 Ambulatory NANCY MARTINEZ [facility] Medical Equipment Procedure Code Equipment Code Equipment Origin al Text Equipment Identifier Dates [employer] Saline Breast Implant [id number] Start: 07-09-2022 Goals Date Patient Goal Desired Activity /State Immunizations Immunization Date Immunization Notes Care Provider [facility] 07-07-2023 zoster vaccine, unspecified formulation Chelsea Acevedo [facility] 08-05-2021 influenza virus vaccine, unspecified formulation Apolinar Henry MD Work Phone: [facility] Medications Current Medications Medication Drug Class(es) Dates Sig (Normalized) Sig (Original) 0.25 MG, 0.5 MG Dose 3 ML semaglutide 0.68 MG/ML Pen Injector [Ozempic] (5 sources) Start: 01-25-2023 Ozempic (0.25 or 0.5 MG/DOSE) 2 MG/3ML 0.25mg Subcutaneous Once Weekly for 90 days 15 May, 2023 Active Start: 01-25-2023 Ozempic (0.25 or 0.5 MG/DOSE) 2 MG/3ML 0.25mg once weekly for 4 weeks, then 0.5mg once weekly for 4 weeks Subcutaneous Once Weekly for January, Active Ascorbic Acid / Collagen (6 sources) Vitamin C Start: 05-05-2023 take 30-833.3 mg by mouth once daily Ascorbic Acid-Collagen (Collagen Skin Renewal) 30-833.3 mg tablet Active 1 TABLET PO DAILY May 05, 2023 12:00am ascorbic acid 125 mg / collagen, hydrolyzed 740 mg oral capsule (4 sources) Vitamin C Start: 10-29-2023 take 1 capsule by mouth once daily Ascorbic Acid-Collagen (Collagen Plus Vitamin C) 125-740 mg capsule Active 1 CAP PO Daily October 29, 2023 1:00am Calcium (16 sources) Phosphate Binder, Calcium Calcium + D3 600mg qd Active CALCIUM PO Take by mouth daily. 0 Active calcium carbonate 1500 mg / cholecalciferol 500 unt oral capsule (6 sources) Vitamin D Start: 05-05-2023 take 1 capsule by mouth once daily Calcium Carbonate-Vitamin D3 (Calcium 600 With Vitamin D3) 600 mg-12.5 mcg (500 unit) capsule Active 1 CAP PO DAILY May 05, 2023 12:00am citalopram 20 mg oral tablet (20 sources) Serotonin Reuptake Inhibitor Start: 05-05-2023 take 30 mg by mouth once daily Citalopram Active 30 MG PO Daily October 29, 2023 1:00am Start: 11-27-2022 take 1.5 tablets by mouth in the morning citalopram (CeleXA) 20 mg tablet Take 1.5 tablets (30 mg total) by mouth in the morning. 0 11/27/2022 Active Start: 03-11-2022 End: 06-16-2022 citalopram 20 MG tablet take 1 and 1/2 tablet by mouth once daily 0 03/11/2022 Active clindamycin 300 mg oral capsule (4 sources) Lincosamide Antibacterial Start: 01-31-2024 take 300 mg by mouth every eight hours Clindamycin Hcl Active 300 MG PO Every 8 hours January 31, 2024 12:00am Start: 01-05-2024 take 300 mg by mouth every eight hours Clindamycin Hcl Active 300 MG PO Q8H January 05, 2024 12:00am Collagen (16 sources) Collagen 1000mg + Vitamin C qd Active COLLAGEN PO Take by mouth. 0 Active esomeprazole 40 mg oral tablet (19 sources) Proton Pump Inhibitor Start: 05-05-2023 take [...] PO Daily at bedtime October 29, 2023 1:00am 24 hr fesoterodine fumarate 8 mg extended release oral tablet (16 sources) Start: 05-05-2023 take 8 mg by mouth once daily Fesoterodine Active 8 MG PO Daily October 29, 2023 1:00am Start: 12-31-2022 take 1 tablet by stone th every twenty-four hours in the morning fesoterodine (TOVIAZ) 8 mg tablet extended release 24 hr Take 1 tablet (8 mg total) by mouth in the morning. 0 12/31/2022 Active Flax Seed Oil (5 sources) Flax Seed Oil 12 00mg qd Active fumarate (4 sources) Start: 10-29-2023 take 1 tablet by stone th once daily Esjdbbq-Gtyz6-Zhfgrko Fumarate Active 1 TAB PO Daily October 29, 2023 1:00am Start: 10-29-2023 take 1 tablet by stone th once daily Kncwppo-Zqpf3-Hqwrseu Fumarate Active 1 TAB PO Daily October 29, 2023 12:00am ibuprofen 400 mg oral tablet (11 sources) Nonsteroidal Anti-inflammatory Drug take 1 tablet by mouth every six hours as needed ibuprofen 400 MG tablet Take 1 tablet by mouth every 6 hours as needed for Mild Pain. 0 Active L. Acidophilus/Bifid. Animalis (Daily Probiotic) 2.5 billion cell capsule (4 sources) Start: 10-29-19 take 1 capsule by mouth once daily, then take 2.5 capsules by mouth once daily L. Acidophilus/Bifid . Animalis (Daily Probiotic) 2.5 billion cell capsule Active 1 CAP PO Daily October 29, 2023 1:00am Start: 10-29-2023 take 1 capsule by [facility] once daily, then take 2.5 capsules by mouth once daily L. Acidophilus/Bifid. Animalis (Daily Probiotic) 2.5 billion cell capsule Active 1 CAP PO Daily October 29, 2023 12:00am lactobacillus acidophilus 1.5 mg oral capsule (2 sources) Start: 12-30-2023 Lactobacillus Acidophilus (Probiotic Acidophilus) 250 [...] Active linseed oil 1000 mg oral capsule (20 sources) Start: 10-29-2023 take 1000 mg by mouth once daily Flaxseed Oil Active 1000 MG PO DAILY December 30, 2023 12:00am melatonin 10 mg oral tablet (17 sources) Start: 05-05-2023 take 10 mg by mouth at bedtime Melatonin Active 10 MG PO BEDTIME May 05, 2023 12:00am MELATONIN PO Delmar e by mouth daily. 0 Active Zsidfyfl-Aja-Oh-Lycopen-Lute in (Complete Mv Adult 50 Plus) 0.4 mg-300 mcg- 250 mcg tablet (6 sources) Start: 05-05-2023 take 1 tablet by mouth once daily Dlzeddzw-Onj-Le-Lycopen-Lutein (Complete Mv Adult 50 Plus) 0.4 mg-300 mcg- 250 mcg tablet Active 1 TABLET PO DAILY May 05, 2023 12:00am multivitamin tablet (11 sources) take 1 tablet by mouth once daily multivitamin tablet Take 1 tablet by mouth daily. 0 Active omeprazole 40 mg delayed release oral capsule (9 sources) Mickey n Pump Inhib itor Start: 10-29-2023 Omeprazole Active 40 MG PO Daily October [...] mg/3 mL) pen injector polyethylene glycol 3350 61053 mg powder for oral solution (6 sources) Osmotic Laxative Start: 10-29-2023 Polyethylene Glycol 3350 (Miralax) 17 gram/dose powder Active 17 GM PO Daily October 29, 2023 1:00am MiraLax Active Probiotic (3 sources) Probiotic Active raNITIdine (1 source) Histamine-2 Receptor Antagonist RANITIDINE HCL (ZANT AC ORAL) Take by mouth. 0 Active Semaglutide (17 sources) Start: 01-31-2024 Semaglutide (Ozempic) 0.25 mg or 0.5 mg (2 mg/3 mL) pen injector Active 0.25 MG SUBCUT every week 4.416 84 January 31, 2024 3:57pm Start: 11-03-2023 End: 01-31-2024 Semaglutide (Ozempic) 0.25 m g or 0.5 mg (2 mg/3 mL) pen injector Discontinued 0.25 MG SUBCUT every week 4.784 November 03, 2023 9:55am January 31, 2024 3:59pm Start: 11-03-2023 Semaglutide (O zempic) 0.25 mg or 0.5 mg (2 mg/3 mL) pen injector Active 0.25 MG SUBCUT every week 4.784 November 03, 2023 9:55am Start: 11-03-2023 End: [...] / oxyCODONE hydrochloride 5 mg oral tablet (12 sources) Opioid Agonist Start: 01-05-2024 End: 01-08-2024 take 1 tablet by mouth three times daily Oxycodone-Acetamino phen (Percocet) 5-325 mg tablet Discontinued 1 TABLET PO THREE TIMES A DAY 7 January 05, 2024 January 08, 2024 12:16am Start: [...] 3 days. 10 tablet 0 06/30/2022 Active [id number] 200 actuat albuterol 0.09 mg/actuat metered dose inhaler (2 sources) beta2-Adrenergic Agonist End: 06-16-2022 albuterol 108 (90 Base) MCG/ACT Aero Soln inhaler take 2 puff(s) by mouth every si x hours albuterol 108 (90 Base) MCG/ACT Aero Soln inhaler albuterol sulfate HFA 90 mcg/actuation aerosol inhaler INHALE 2 PUFFS BY MOUTH EVERY 6 HOURS IF NEEDED 0 Active aspirin 81 mg delayed release oral tablet (20 sources) Platelet Aggregation Inhibitor, Nonsteroidal Anti-inflammatory Drug Start: 05-05-2023 End: 01-31-2024 take 81 mg by mouth once daily Aspirin Discontinued 81 MG PO Daily October 29, 2023 1:00am January 31, 2024 1:27pm Start: 05-05-2023 End: 06-16-2022 take 81 mg by mouth once daily Aspirin Active 81 MG PO DAILY May 05, 2023 12:00am aspirin 81 mg Ta ke by mouth. 0 Active End: 07-09-2022 aspirin 81 MG Chew Tab chewa ble tablet At bedtime. 0 07/09/2022 Discontinued (Stop Taking at Discharge) calcium chloride 0.0014 meq/ml / potassium chloride [...] days. 14 capsule 0 06/30/2022 07/07/2022 Active furosemide 20 mg oral tablet (4 sources) Loop Diuretic Start: 11-01-2023 End: 01-31-2024 take 1 tablet by mouth once daily Furosemide (Lasix) 20 mg tablet Discontinued 20 MG PO Daily November 01, 2023 1:00am January 31, 2024 1:28pm 2 ml gentamicin 40 mg/ml injection (1 source) Start: 07-09-2022 End: 07-09-2022 gentamicin (GARAMYCIN) injection 10 ml methylene blue 5 mg/ml injection (1 source) Oxidation-Reduct ion Agent Start: 07-09-2022 End: 07-09-2022 methylene blue (PROVAYBLUE) injection Multivitamin preparation (9 sources) Start: 10-29-2023 End: 01-31-2024 take 1 tablet by mouth once daily Multivitamin Discontinued 1 TAB PO Daily October 29, 2023 1:00am January 31, 2024 1:28pm Start: 10-29-2023 take 1 tablet by stone th once daily Multivitamin Active 1 TAB PO Daily October 29, 2023 1:00am Start: 10-29-2023 take 1 tablet by stone th once daily Multivitamin Active 1 TAB PO Daily October 29, 2023 12:00am Multivitamin Act vera Oxidized Cellulose (SURGICEL) topical pad (1 source) Start: 07-09-2022 End: 07-09-2022 Oxidized Cellulose (SURGICEL) topical pad polyethylene glycol 3350 627492 mg / potassium chloride 2970 mg / sodium bicarbonate 6740 mg / sodium chloride 5860 mg / sodium sulfate 16832 mg powder for oral solution (1 source) [...] 07-09-2022 sodium chloride 0.9% IV solu tion Payers Date Payer Category Payer [employer] [id number] 2022 [employer] [id number] 2022 Self-pay 2021 [employer] [id number] 2021 [employer]) [id number]. 3.6786 71.315 2021 Unknown 2020 Medicare [id number]. 1.13.172.2.7.3.6786 71.315 2019 Unknown [id number] 2017 Medicare [id number] 2016 [employer] ( [employer] others) [id number] 1959 [employer] ( [employer] others) [id number] 1959 Medicare [id number] 1950 Unknown [id number] 2.16.840.1.445807.3.579.2.647 1950 Unknown [id number] 2.16.840.1.799652.3.579.2.983 1950 Unknown [id number] 2.16.840.1.133792.3.579.2.983 1950 Unknown [id number] 2.16.840.1.703757.3.579.2.983 1950 Unknown [id number] 2.16.840.1.975490.3.579.2.983 1950 Unknown [id number] 2.16.840.1.188277.3.579.2.983 1950 Unknown [id number] 2.16.840.1.552133.3.579.2.983 1950 Unknown [id number] 2.16.840.1.923283.3.579.2.983 1950 Unknown [id number] 2.16.840.1.802341.3.579.2.983 1950 Unknown [id number] 2.16.840.1.784500.3.579.2.983 1950 Unknown [id number] 2.16.840.1.648091.3.579.2.983 1950 Unknown [id number] 2.16.840.1.877560.3.579.2.983 1950 Unknown [id number] 2.16.840.1.873261.3.579.2.983 1950 Unknown [id number] 2.16.840.1.328687.3.579.2.983 1950 Unknown [id number] 2.16.840.1.035559.3.579.2.983 1950 Unknown [id number] 2.16.840.1.746298.3.579.2.983 1950 Unknown [id number] 2.16.840.1.908876.3.579.2.983 1950 Unknown [id number] 2.16.840.1.169181.3.579.2.983 1950 Unknown [id number] 2.16.840.1.208221.3.579.2.983 1950 Unknown [id number] 2.16.840.1.187397.3.579.2.593 1950 Unknown [id number] 2.16.840.1.879918.3.579.2.593 1950 Unknown [id number] 2.16.840.1.694079.3.579.2.593 1950 Unknown [id number] 2.16.840.1.401834.3.579.2.593 1950 Unknown [id number] 2.16.840.1.838940.3.579.2.593 1950 Unknown [id number] 2.16.840.1.114892.3.579.2.593 1950 Unknown [id number] 2.16.840.1.765741.3.579.2.593 1950 Unknown [id number] 2..840.1.367600.3.579.2.593 1950 Unknown [id number] 2.16.840.1.025337.3.579.2.593 1950 Unknown [id number] 2.16.840.1.413489.3.579.2.196 1950 Unknown [id number] 2.16.840.1.660101.3.579.2.196 1950 Unknown [id number] 2..840.1.798544.3.579.2.196 1950 Unknown [id number] 2.16.840.1.917519.3.579.2.196 1950 Unknown [id number] 2.16.840.1.336618.3.579.2.196 1950 Unknown [id number] 2.16.840.1.647981.3.579.2.196 1950 Unknown [id number] 2.16.840.1.727516.3.579.2.196 1950 Unknown [id number] 2.16.840.1.869929.3.579.2.196 1950 Unknown [id number] 2.16.840.1.296690.3.579.2. 1950 Unknown [id number] 2.16.840.1.056634.3.579.2. 1950 Unknown [id number] 2.16.840.1.533697.3.579.2. 1950 Unknown [id number] 2.16.840.1.614457.3.579.2. 1950 Unknown [id number] 2.16.840.1.307908.3.579.2. 1950 Unknown [id number] 2.16.840.1.476015.3.579.2. 1950 Unknown [id number] 2.16.840.1.684190.3.579.2. 1950 Unknown [id number] 2.16.840.1.013003.3.579.2. 1950 Unknown [id number] 2.16.840.1.027065.3.579.2. 1950 Unknown [id number] 2.16.840.1.870028.3.579.2. 1950 Unknown [id number] 2.16.840.1.043308.3.579.2.1259 1950 Unknown [id number] 2.16.840.1.503335.3.579.2.1259 1950 Unknown [id number] 2.16.840.1.052837.3.579.2.128 1950 Unknown [id number] 2.16.840.1.102769.3.579.2.1286 1950 Unknown [id number] 2.16.840.1.724989.3.579.2.128 1950 Unknown [id number] 2.16.840.1.498718.3.579.2.1286 1948 Unknown [id number] 2.16.840.1.991969.3.579.2.196 [facility] ([facility] and others) [id number] 2.16.840.1.208046 .19 Medicare [id number] Private Health Insurance [id number] Unknown [id number] 2.16.840.1.597858.3.579.2.283 Unknown [id number] 2.16.840.1.857360.3.579.2.531 Unknown [id number] 2.16.840.1.369333.3.579.2.462 Unknown [id number] 2.16.840.1.423506.3.579.2.462 Unknown [id number] 2.16.840.1.023588.3.579.2.462 Unknown [id number] 2.16.840.1.540558.3.579.2.462 Unknown [id number] 2.16.840.1.848413.3.579.2.462 Unknown [id number] 2.16.840.1.222753.3.579.2.462 Unknown [id number] 2.16.840.1.537006.3.579.2.462 Unknown [id number] 2.16.840.1.216870.3.579.2.462 Unknown [id number] 2.16.840.1.747137.3.579.2.462 Unknown [id number] 2.16.840.1.416837.3.579.2.462 Unknown [id number] 2.16.840.1.606911.3.579.2.462 Unknown [id number] 2.16840.1.558416.3.579.2.462 Plan of Treatment Date Care Activity Detail Author Start: 11-15-2024 Adult BMI Screening Adult BMI Screen [facility] Start: 08-23-2024 End: 08-23-2024 Patient encounter procedure 08/23/2024 2:00 PM EST Office Visit [facility] [address] [place] [phone] Angel Cole MD [address] [place] [address] [facility] Start: 08-18-2024 Tobacco Screening Tobacco Screening [facility] Start: 08-17-2024 Depression Screening Depression Scre ening [facility] Start: 03-02-2024 End: 03-02-2024 Patient encounter procedure 03/02/2024 2:00 PM EDT Office Visit [facility] [address] [place] [phone] Ramakrishna López MD [address] [place] [address], [address] [place] [phone] [facility] Start: 01-21-2024 [facility] Start: 09-01-2023 Administration of varicella zoster vaccine Zoster (Shingles) Vaccine (2 of 2) [facility] Start: 05-14-2023 COVID-19 Vaccine ( season) COVID-19 Vaccine ( season) [facility] Start: 04-06-2023 MAMMOGRAM LEFT MAMMOGRAM LEFT [facility] Start: 04-06-2023 Screening for malign ant neoplasm of breast MAMMOGRAM LEFT [facility] Start: 01-11-2023 DTaP,Tdap and Td Vaccines (2 - Td or Tdap) DTaP,Tdap and Td Vaccines (2 - Td or Tdap) [facility] Start: 01-11-2023 Tetanus vaccination TETANUS [facility] Start: 11-18-2022 End: 11-18-2022 Patient encounter procedure 11/18/2022 Office Visit Plastic Surgery Apolinar Henry MD [address] [place] [address] [facility] Start: 10-21-2022 End: 10-21-2022 Patient encounter procedure 10/21/2022 Office Visit Plastic Surgery Apolinar Henry MD [address] [place] [address], [place] [address] [facility] Start: 10-07-2022 End: 10-07-2022 Patient encounter procedure 10/07/2022 Office Visit Plastic Surgery Apolinar Henry MD [address] [place] [address], [place] [address] [facility] Start: 09-23-2022 End: 09-23-2022 Patient encounter procedure 09/23/2022 Office Visit Plastic Surgery Apolinar Henry MD [address] [place] [address], [place] [address] [facility] Start: 08-26-2022 End: 08-26-2022 Patient encounter procedure 08/26/2022 Office Visit Plastic Surgery Apolinar Henry MD [address] [place] [address], [place] [address] [facility] Start: 08-12-2022 End: 08-12-2022 Patient encounter procedure 08/12/2022 Office Visit Plastic Surgery Apolinar Henry MD [address] [place] [address], [place] [address] [facility] Start: 08-05-2022 End: 08-05-2022 Patient encounter procedure 08/05/2022 Office Visit Plastic Surgery Apolinar Henry MD [address] [place] [address], [place] [address] [facility] Start: 07-22-2022 End: 07-22-2022 Patient encounter procedure 07/22/2022 Office Visit Plastic Surgery Apolinar Henry MD [address] [place] [address] [facility] Start: 07-15-2022 End: 07-15-2022 Patient encounter procedure 07/15/2022 Office Visit Plastic Surgery Apolinar Henry MD [address] [place] [address] [facility] Start: 07-09-2022 Subsequent hospital visit by physician 07/09/2022 Hospital Encounter Multispecialty Apolinar Henry MD [address] [place] [phone] Personal history of malignant neoplasm of breast [facility] Comment on above: Personal history of malignant neoplasm of breast Start: 07-09-2022 End: 07-09-2022 Admission to same day surgery center 07/09/2022 Surgery Multispecialty Apolinar Henry MD [address] [place] [phone] RT BREAST RECONSTRUCTION W/ PLACEMENT TISSUE HELPER DRIVER & ADM [facility] Periop Comment on above: RT BREAST RECONSTRUC TION W/ PLACEMENT TISSUE HELPER DRIVER & ADM Start: 07-09-2022 End: 07-09-2022 Anesthesia consultation 07/09/2022 Anesthesia Event Multispecialty Deo Moeller, DO [address] [place] [address] [facility] Start: 07-09-2022 End: 07-09-2022 Brst rcnstj immt/dlyd w/tiss coating supervisor sbsq xpnsj RECONSTRUCTION BREAST TISSUE HELPER DRIVER INCLUDING SUBSEQUENT EXPANDERS 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 07/09/2022 10:30 AM EDT [facility] Start: 07-09-2022 End: 07-09-2022 Implnt bio implnt for soft tissue reinforcement IMPLANTATION BIOLOGIC IMPLANT FOR SOFT TISSUE REINFORCEMENT ADD-ON PX 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 07/09/2022 10:30 AM EDT [facility] Start: 06-30-2022 End: 06-30-2022 Patient encounter procedure 06/30/2022 Office Visit Plastic Surgery Apolinar Henry MD [address] [place] [address] [facility] Start: 05-14-2022 Influenza vaccination INFLUENZA VACC INE (#1) [facility] Start: 12-03-2021 COVID-19 VACCINE (4 - Booster for Pfizer series) COVID-19 VACCINE (4 - Booster for Pfizer series) [facility] Start: 09-30-2021 COVID-19 VACCINE (4 - Booster for Pfizer series) COVID-19 VACCINE (4 - Booster for Pfizer series) [facility] Start: 2015 Fall Risk Screening Fall Risk Screen ing [facility] Start: 2015 Pneumococcal vaccination PNEUM OCOCCAL VACCINE SERIES (1 - PCV) [facility] Start: 2000 Zoster vaccine hzv l vera for subcutaneous use ZOSTER (SHINGLES) VACCINE (1 of 2) [facility] Start: 1995 Colonoscopy COLORECTAL CAN CER SCREENING DISCUSSION [facility] Start: 1995 Screening for malign ant neoplasm of colon COLORECTAL CANCER SCREENING DISCUSSION [facility] Start: 1990 Fasting lipid profile LIPID SCREENIN G [facility] Start: 1990 Lipid panel LIPID SCREENING [facility] Start: 1980 MAMMOGRAM LEFT MAMMOGRAM LEFT [facility] Start: 1971 Screening for malign ant neoplasm of cervix CERVICAL CANCER SCREENING DISCUSSION [facility] Start: 1969 Third diphtheria, tetanus and acellular pertussis (DTaP) vaccination TDAP (ADULT) [facility] Start: 1968 Adult BMI Follow Up Plan Adult BMI F ollow Up Plan [facility] Start: 1968 Tetanus vaccination TETANUS [facility] Start: 1950 Hepatitis C antibody , confirmatory test HEPATITIS C VIRUS SCREENING [facility] Start: 1950 Hepatitis C screening HEPATITI S C VIRUS SCREENING [facility] Start: 1950 Medicare Annual Well ness Visit Medicare Annual Wellness Visit [facility] Start: 1950 Screening for osteoporosis DEXA SCAN DISCUSSION [facility] Start: 1950 Thyroid stimulating hormone measurement TSH [facility] Blood chemistry [facility] Complete blood count [facility] Patient referral [facility] Work Phone: Problems Active Problems Problem Classification Problem Date Documented Date Episodic/Chronic Anxiety disorders (13 sources) Anxiety; Translations: [Anxiety [...] of breast; Translations: [Hypertrophy of breast] Onset: 12-22-2023 05-05-2023 Episodic Nonspecific chest pain (20 sources) Chest pain; Translations: [Chest pain, unspecified] Onset: 05-20-2022 05-20-2022 Episodic Osteoarthritis (13 sources) Degenerative joint disease involving multiple joints; Translations: [Polyosteoarthritis, unspecified] Onset: 11-03-2012 05-20-2022 Chronic Other diseases of bladder and urethra (5 sources) Overactive bladder; Translations: [Overactive bladder] Chronic Other diseases of bladder and urethra (2 sources) Overactive bladder Chronic Other nervous system disorders (2 sources) Ataxia, unspecified; Translations: [Ataxia, unspecified] Onset: 03-02-2024 Episodic Other nutritional; endocrine; and metabolic disorders (12 sources) Obese class II; Translations: [Obesity, unspecified] Onset: 06-16-2022 06-16-2022 Chronic Other nutritional; endocrine; and metabolic disorders (5 sources) Body mass index 40+ - severely obese; Translations: [Body mass index (BMI) 40.0-44.9, adult] Chronic Other nutritional; endocrine; and metabolic disorders (9 sources) Body mass index 30+ - obesity; Translations: [Body mass index (BMI) 37.0-37.9, adult] 11-01-2023 Chronic Other nutritional; endocrine; and metabolic disorders (14 sources) Obesity; Translations: [Obesity, unspecified] 10-29-2023 Chronic Other nutritional; endocrine; and metabolic disorders (8 sources) Obesity, unspecified; Translations: [Obesity, unspecified] Chronic Other nutritional; endocrine; and metabolic disorders (2 sources) Body mass index (BMI) 34.0-34.9, adult Chronic Other nutritional; endocrine; and metabolic disorders (1 source) Obese class I; Translations: [Body mass index (BMI) 34.0-34.9, adult] Chronic Other nutritional; endocrine; and metabolic disorders (4 sources) Body mass index (BMI) 32.0-32.9, adult; Translations: [Body Mass Index 32.0-32.9, adult] 11-01-2023 Chronic Residual codes; unclassified (9 sources) Obstructive sleep apnea syndrome; Translations: [Obstructive sleep apnea (adult) (pediatric)] 10-29-2023 Chronic Residual codes; unclassified (6 sources) Obstructive sleep apnea (adult) (pediatric); Translations: [Obstructive sleep apnea (adult)(pediatric)] Chronic Residual codes; unclassified (4 sources) Dependence on continuous positive airway pressure ventilation; Translations: [Dependence on other enabling machines and devices] 11-01-2023 Chronic Residual codes; unclassified (11 sources) History of breast reconstruction; Translations: [Other specified postprocedural states] Onset: 10-21-2022 Episodic Residual codes; unclassified (9 sources) Other specified postprocedural states; Translations: [Breast replacement] Onset: 08-12-2022 Episodic Residual codes; unclassified (4 sources) Localized edema; Translations: [LOCALIZED EDEMA] Onset: 09-16-2022 Episodic Residual codes; unclassified (2 sources) History of reconstruction of right breast; Translations: [Other specified postprocedural states] 12-22-2023 Episodic Spondylosis; intervertebral disc disorders; other back problems (14 sources) Sacrococcygeal disorders, not elsewhere classified; Translations: [Dorsalgia, unspecified] Onset: 05-21-2022 Episodic Thyroid disorders (20 sources) Hypothyroidism, unspecified; Translations: [Hypothyroidism] Onset: 03-24-2022 [...] [CONTACT W/AND (SUSP) EXPOS COVID-19] Onset: 03-04-2022 Varicose veins of lower extremity (4 sources) Varicose veins of bilateral lower extremities with pain; Translations: [VARICOSE VNS CHARLIE LOW EXTREM W/PAIN] Onset: 12-16-2022 Episodic Past or Other Problems Problem Classification Problem Date Documented Date Episodic/Chronic Administrative/social admission (3 sources) Persons encountering health services in other specified circumstances; Translations: [Dietary counseling and surveillance] Onset: 08-30-2023 Episodic Epilepsy; convulsions (2 sources) Unspecified convulsions; Translations: [Unspecified convulsions] Onset: 11-18-2023 Episodic Joint disorders and dislocations; trauma-related (13 sources) [...] [CONTACT W/AND (SUSP) EXPOS COVID-19] Onset: 03-02-2022 Procedures Date Procedure Procedure Detail Performing Clinician Start: 03-02-2024 Follow-up visit Follow-up RAMAKRISHNA LÓPEZ Start: 01-21-2024 Reduction mammoplasty Nuno Villagran Work Phone: Start: 08-17-2023 Adult depression scr eening assessment Chelsea Acevedo Start: 09-23-2022 Follow-up visit Follow-up APOLINAR HENRY Start: 09-15-2022 Radiologic exam chest 2 views Apolinar Henry MD Work Phone: Start: 06-07-2020 ANESTH KNEE JOINT SURGERY LASHA BAKER Start: 06-07-2020 KNEE ARTHROSCOPY/SURGERY ADAM SKINNER Start: 08-05-2018 Electrocardiogram GRUPO BROUSSARD Results Test Name Value Interpretation Reference Range Facility CBC AND AUTO DIFFon 03-02-20 24 ABSOLUTE BASOPHIL 0.0 X10E9/L Normal 0.0-0.2 [facility] Comment on above: Performed By: #### C BCA, CMP, THYR, 8832-9, 07421-4, ENAP, 76743-7, 5130-0, 42313-0 #### [facility] ([id number]) [address], [address] [place] [address] ABSOLUTE NEUTROPHIL 5.4 X10E9/L Normal 1.5-6.6 [facility] Comment on above: Performed By: #### C BCA, CMP, THYR, 2131-9, 80784-4, ENAP, 57311-2, 5130-0, 55554-5 #### [facility] ([id number]) [address], [address] [place] [address] Basophils/100 WBC (Bld) 0.4 % Normal [facility] Comment on above: Performed By: #### C BCA, CMP, THYR, 2131-9, 75759-8, ENAP, 91118-5, 5130-0, 49750-0 #### [facility] ([id number]) [address], [address] [place] [address] Eosinophils (Bld) [#/Vol] 0.1 10*3/uL Normal 0.0-0.4 [facility] Comment on above: Performed By: #### C BCA, CMP, THYR, 2131-9, 09541-3, ENAP, 03159-0, 5130-0, 70069-3 #### [facility] ([id number]) [address], [address] [place] [address] Eosinophils/100 WBC (Bld) 1.5 % Normal [facility] Comment on above: Performed By: #### C BCA, CMP, THYR, 2131-9, 22361-6, ENAP, 25659-2, 5130-0, 12750-1 #### [facility] ([id number]) [address], [address] [place] [address] Erythrocyte distribution width (RBC) [Ratio] 15.1 % High 11.5-15.0 [facility] Comment on above: Performed By: #### C BCA, CMP, THYR, 2131-9, 09028-3, ENAP, 24677-7, 5130-0, 89579-3 #### [facility] ([id number]) [address], [address] [place] [address] Hematocrit (Bld) [Volume fraction] 41.5 % Normal 35-47 [facility] Comment on above: Performed By: #### C BCA, CMP, THYR, 2132-05, 92386-6, ENAP, 16344-3, 5130-0, 36441-2 #### [facility] ([id number]) [address], [address] [place] [address] Hemoglobin (Bld) [Mass/Vol] 14.2 g/dL Normal 11.7-15.5 [facility] Comment on above: Performed By: #### C BCA, CMP, THYR, 2132-05, 26503-2, ENAP, 90600-4, 5130-0, 90857-9 #### [facility] ([id number]) [address], [address] [place] [address] Lymphocytes (Bld) [#/Vol] 1.8 10*3/uL Normal 1.0-3.5 [facility] Comment on above: Performed By: #### C BCA, CMP, THYR, 9, 26916-6, ENAP, 10260-7, 5130-0, 41428-6 #### [facility] ([id number]) [address], [address] [place] [address] Lymphocytes/100 WBC (Bld) 22.4 % Normal [facility] Comment on above: Performed By: #### C BCA, CMP, THYR, 2131-9, 36403-4, ENAP, 90751-1, 5130-0, 56139-2 #### [facility] ([id number]) [address], [address] [place] [address] MCH (RBC) [Entitic mass] 29.3 pg Normal 27-34 [facility] Comment on above: Performed By: #### C BCA, CMP, THYR, 2131-9, 67758-7, ENAP, 83986-4, 5130-0, 10721-2 #### [facility] ([id number]) [address], [facility] [address] [place] [address] MCHC (RBC) [Mass/Vol] 34.2 g/dL Normal 32-36 [facility] Comment on above: Performed By: #### C BCA, CMP, THYR, 2131-9, 51746-8, ENAP, 65662-6, 5130-0, 03551-5 #### [facility] ([id number]) [address] [address] MCV (RBC) [Entitic vol] 86 fL Normal 80-100 [facility] Comment on above: Performed By: #### C BCA, CMP, THYR, 2131-9, 15390-3, ENAP, 02501-0, 5130-0, 59909-2 #### [facility] ([id number]) [address] [address] Monocytes (Bld) [#/Vol] 0.5 10*3/uL Normal 0-0.9 [facility] Comment on above: Performed By: #### C BCA, CMP, THYR, 2131-9, 43989-8, ENAP, 31105-4, 5130-0, 21347-9 #### [facility] ([id number]) [address] [address] [place] [address] Monocytes/100 WBC (Bld) 6.0 % Normal [facility] Comment on above: Performed By: #### C BCA, CMP, THYR, 2131-9, 97504-7, ENAP, 30089-2, 5130-0, #### [facility] ([id number]) [address], [address] [place] [address] Neutrophils/100 WBC (Bld) 69.7 % Normal [facility] Comment on above: Performed By: #### C BCA, CMP, THYR, 2132-9, 19475-7, ENAP, 17031-1, 5130-0, 25302-7 #### [facility] ([id number]) [address], [address] [place] [address] Platelet mean volume (Bld) [Entitic vol] 9.2 fL Normal 7-12 [facility] Comment on above: Performed By: #### C BCA, CMP, THYR, 2-9, 90104-6, ENAP, 56610-8, 5130-0, 18747-4 #### [facility] ([id number]) [address], [address] [place] [address] Platelets (Bld) [#/Vol] 166 10*3/uL Normal 150-450 [facility] Comment on above: Performed By: #### C BCA, CMP, THYR, 2-9, 31279-0, ENAP, 04297-4, 5130-0, 55163-4 #### [facility] ([id number]) [address], [address] [place] [address] RBC COUNT 4.84 X10E12/L Normal 3.80-5.20 [facility] Comment on above: Performed By: #### C BCA, CMP, THYR, 2132-9, 11723-7, ENAP, 08628-9, 5130-0, 92537-9 #### [facility] ([id number]) [address], [address] [place] [address] WBC (Bld) [#/Vol] 7.8 10*3/uL Normal 4.0-11.0 [facility] Comment on above: Performed By: #### C BCA, CMP, THYR, 2-9, 82885-1, ENAP, 11901-6, 5130-0, 59823-0 #### [facility] ([id number]) [address], [address] [place] [address] COMPREHENSIVE METABOLIC PANE Jagdish 03-02-2024 Albumin [Mass/Vol] 4.1 g/dL Normal 3.2-5.3 [facility] Comment on above: Performed By: #### C BCA, CMP, THYR, 2131-9, 77302-3, ENAP, 09914-4, 5130-0, 89342-2 #### [facility] ([id number]) [address], [address] [place] [address] ALP [Catalytic activity/Vol] 149 U/L High 39-130 [facility] Comment on above: Performed By: #### C BCA, CMP, THYR, 2131-9, 27359-8, ENAP, 15547-8, 5130-0, 91935-1 #### [facility] ([id number]) [address], [address] [place] [address] ALT [Catalytic activity/Vol] 39 U/L High 0-31 [facility] Comment on above: Performed By: #### C BCA, CMP, THYR, 2131-9, 03979-7, ENAP, 96701-4, 5130-0, 83877-7 #### [facility] ([id number]) [address], [address] [place] [address] Anion gap [Moles/Vol] 8 mmol/L Normal 5-15 [facility] Comment on above: Performed By: #### C BCA, CMP, THYR, 2-9, 30008-6, ENAP, 15073-8, 5130-0, 07963-6 #### [facility] ([id number]) [address], [address] [place] [address] AST [Catalytic activity/Vol] 34 U/L Normal 0-41 [facility] Comment on above: Performed By: #### C BCA, CMP, THYR, 2131-9, 73410-0, ENAP, 50482-4, 5130-0, 30504-3 #### [facility] ([id number]) [address], [address] [place] [address] Bilirubin [Mass/Vol] 0.5 mg/dL Normal 0.3-1.2 [facility] Comment on above: Performed By: #### C BCA, CMP, THYR, 2131-9, 54567-4, ENAP, 91592-5, 5130-0, #### [facility] ([id number]) [address], [address] [place] [address] Calcium [Mass/Vol] 9.4 mg/dL Normal 8.5-10.5 [facility] Comment on above: Performed By: #### C BCA, CMP, THYR, 2131-9, 05395-7, ENAP, 20548-5, 5130-0, 95636-9 #### [facility] ([id number]) [address], [address] [place] [address] Chloride [Moles/Vol] 104 mmol/L Normal 98-109 [facility] Comment on above: Performed By: #### C BCA, CMP, THYR, 2132-05, 33993-7, ENAP, 07770-6, 5130-0, 27701-3 #### [facility] ([id number]) [address], [address] [place] [address] CO2 [Moles/Vol] 29 mmol/L Normal 22-32 [facility] Comment on above: Performed By: #### C BCA, CMP, THYR, 2131-9, 17114-5, ENAP, 33449-8, 5130-0, 40573-3 #### [facility] ([id number]) [address], [address] [place] [address] Creatinine [Mass/Vol] 0.71 mg/dL Normal 0.40-1.00 [facility] Comment on above: Result Comment: METH OD TRACEABLE TO IDMS STANDARD Performed By: #### C BCA, CMP, THYR, 2131-9, 26920-6, ENAP, 90738-1, 5130-0, #### [facility] ([id number]) [address], [address] [place] [address] GFR/1.73 sq M.predicted among non-blacks MDRD (S/P/Bld) [Vol rate/Area] 90 mL/min/{1.73_m2} Normal >59 [facility] Comment on above: Result Comment: Reported eGFR is based on the CKD-EPI 2020 equation that does not use a race coefficient. Performed By: #### C BCA, CMP, THYR, 9, 93243-3, ENAP, 48531-1, 5130-0, #### [facility] ([id number]) [address], [address] [place] [address] Glucose [Mass/Vol] 55 mg/dL Low 65-99 [facility] Comment on above: Performed By: #### C BCA, CMP, THYR, 2131-9, 92102-4, ENAP, 52730-2, 5130-0, #### [facility] ([id number]) [address], [address] [place] [address] Potassium [Moles/Vol] 4.4 mmol/L Normal 3.5-5.0 [facility] Comment on above: Performed By: #### C BCA, CMP, THYR, 2131-9, 74916-4, ENAP, 15094-6, 5130-0, #### [facility] ([id number]) [address], [address] [place] [address] Protein [Mass/Vol] 6.9 g/dL Normal 6.0-8.0 [facility] Comment on above: Performed By: #### C BCA, CMP, THYR, 2131-9, 25374-6, ENAP, 33491-4, 5130-0, 04111-3 #### [facility] ([id number]) [address], [address] [place] [address] Sodium [Moles/Vol] 141 mmol/L Normal 134-146 [facility] Comment on above: Performed By: #### C BCA, CMP, THYR, 2131-9, 80743-8, ENAP, 78840-2, 5130-0, 47798-3 #### [facility] ([id number]) [address], [address] [place] [address] Urea nitrogen [Mass/Vol] 12 mg/dL Normal 5-27 [facility] Comment on above: Performed By: #### C BCA, CMP, THYR, 9, 88491-4, ENAP, 12893-1, 5130-0, 96003-6 #### [facility] ([id number]) [address], [address] [place] [address] Chromatin Ab Qlon 03-02-2024 CHROMATIN AB IGG <0.2 Normal <1.0 [facility] Comment on above: Performed By: #### C BCA, CMP, THYR, 2132-05, 46965-4, ENAP, 18030-2, 5130-0, 24749-0 #### [facility] ([id number]) [address], [address] [place] [address] Copper [Mass/Vol]on 03-02-20 24 COPPER 88 ug/dL Normal 80-155 [facility] Comment on above: Result Comment: NOTE This test was developed and its performance characteristics determined by [facility]'s [facility] [place] ([facility]). It has not been cleared or approved by the FDA. -[facility] is regulated under CLIA as qualified to perform high-complexity testing. This test is used for clinical purposes. It should not be regarded as investigational or for research. Test Performed By: [place] [address] Supervisor Frame Sample And Pattern: Trace Pelayo III, M.D. CLIA #[id number] DNA double strand Ab Qn (S)o n 03-02-2024 DOUBLE STRANDED DNA <1 Normal <5 [facility] Comment on above: Result Comment: Interpretation-------- <5 Negative 5-9 Indeterminate >9 Positive Performed By: #### C BCA, CMP, THYR, 2131-9, 40098-9, ENAP, 70168-2, 5130-0, 59360-7 #### [facility] ([id number]) [address] [facility], [address] [place] [address] LARISSA PANELon 03-02-2024 ANTI-LIMA AB IGG <0.2 Normal <1.0 [facility] Comment on above: Performed By: #### C BCA, CMP, THYR, 2132-9, 01674-6, ENAP, 22905-7, 5130-0, 02468-2 #### [facility] ([id number]) [address], [address] [place] [address] JO1 ANTIBODY <0.2 Normal <1.0 [facility] Comment on above: Performed By: #### C BCA, CMP, THYR, 2132-9, 95621-8, ENAP, 97490-1, 5130-0, 36850-0 #### [facility] ([id number]) [address], [address] [place] [address] FABRICATION ENGINEER ANTIBODY IGG 2.0 AI High <1.0 [facility] Comment on above: Performed By: #### C BCA, CMP, THYR, 2131-9, 64089-6, ENAP, 06332-9, 5130-0, 12380-4 #### [facility] ([id number]) [address], [address] [place] [address] SCL 70 ANTIBODY <0.2 Normal <1.0 [facility] Comment on above: Performed By: #### C BCA, CMP, THYR, 2131-, 97301-3, ENAP, 61077-3, 5130-0, 84503-9 #### [facility] ([id number]) [address] [facility], [address] [place] [address] SSA ANTIBODY <0.2 Normal <1.0 [facility] Comment on above: Performed By: #### C BCA, CMP, THYR, 2132-05, 34995-7, ENAP, 10029-8, 5130-0, 00301-9 #### [facility] ([id number]) [address] [facility], [address] [place] [address] SSB ANTIBODY <0.2 Normal <1.0 [facility] Comment on above: Performed By: #### C BCA, CMP, THYR, 2131-9, 86381-4, ENAP, 66055-5, 5130-0, 54741-5 #### [facility] ([id number]) [address], [address] [place] [address] Nuclear Ab IA Ql (S)on 03-02 RICARDO Screen w/reflex Positive Abnormal NEG [facility] Comment on above: Result Comment: Testing performed using multiplex flow immunoassay. Eleven different antigens associated with systemic autoimmune diseases (dsDNA,Sm,Sm/FABRICATION ENGINEER,FABRICATION ENGINEER,Chromatin, SSA,SSB,Michaelle-1,Scl70,Ribo P,Centromere B) are included in this screening test. Performed By: #### C BCA, CMP, THYR, 2131-9, 45266-1, ENAP, 49617-2, 5130-0, 99310-8 #### [facility] ([id number]) [address] [facility], [address] [place] [address] Lima extractable nuclear Ab +Ribonucleoprotein extractable nuclear IgG Qn (S)on 03-02-2024 LIMA/FABRICATION ENGINEER AB IGG <0.2 Normal <1.0 [facility] Comment on above: Performed By: #### C BCA, CMP, THYR, 2132-05, 01435-1, ENAP, 73522-3, 5130-0, #### [facility] ([id number]) [address] [facility], [address] [place] [address] THYROID PROFILEon 03-02-2024 Free T4 [Mass/Vol] 0.97 ng/dL Normal 0.61-1.60 [facility] Comment on above: Performed By: #### C BCA, CMP, THYR, 2132-05, 51073-1, ENAP, 92404-2, 5130-0, #### [facility] ([id number]) [address], [address] [place] [address] TSH 1.16 uIU/mL Normal 0.49-4.67 [facility] Comment on above: Performed By: #### C BCA, CMP, THYR, 2132-05, 30400-7, ENAP, 45219-9, 5130-0, #### [facility] ([id number]) [address], [address] [place] [address] VITAMIN B12on 03-02-2024 Cobalamin (Vitamin B12) [Mass/Vol] 582 pg/mL Normal 180-914 [facility] Comment on above: Performed By: #### C BCA, CMP, THYR, 2132-05, 40803-1, ENAP, 55988-6, 5130-0, 82019-4 #### [facility] ([id number]) [address] [facility] [facility] [place] [address] VITAMIN E, SER/PLon 03-02-20 VIT E(ALPHA-TOCOPHEROL) 13.2 mg/L Normal 5.5-18.0 [facility] Comment on above: Result Comment: NOTE This test was developed and its performance characteristics determined by [facility]. It has not been cleared or approved by the US Food and Drug Administration. This test was performed in a CLIA certified laboratory and is intended for clinical purposes. Performed By: #### C BCA, CMP, THYR, 2-9, 75730-9, ENAP, 25251-4, 5130-0, 81531-2 #### [facility] ([id number]) [address] [facility], [address] [place] [address] VIT E(GAMMA-TOCOPHEROL) 0.6 mg/L Normal 0.0-6.0 [facility] Comment on above: Result Comment: NOTE Performed By: [facility] [address] [place] [address] Supervisor Frame Sample And Pattern: Cornell Sánchez MD, PhD [place] Number: [id number] Performed By: #### C BCA, CMP, THYR, 2-9, 05060-7, ENAP, 17725-8, 5130-0, 07893-8 #### [facility] ([id number]) [address] [facility], [address] [place] [address] Plastic Surgery Visit Report on 03-01-2024 Plastic Surgery Visit Report [facility] [address] [facility], [address] [place] [address] OFFICE VISIT Date of Service: 03/01/24 MR#: [id number] Acct: [id number] Name: BERENICE NOLASCO Rep #: [id number] : 1950 Provider: Dr. Apolinar flores MD Age/Sex: 73/F Location: [facility] Status: Signed Intake Vital Signs 02/16/24 13:27 03/01/24 14:05 Height 5 ft 6 in 5 ft 6 in Weight: 202 lb 4 oz 202 lb 8 oz BMI 32.6 32.6 BP 141/90 H 129/81 H Blood Pressure Location Lt brachial Lt brachial Position Sitting Sitting Respiration 16 16 Pulse 67 75 Temp 99.1 F 98.2 F Temp Source Temporal Temporal Pulse Oximetry (%) 93 93 Oxygen Delivery Method room air room air Intake Visit Reasons: FOLLOW UP Chief Complaint: post op left breast reduction/port removal Accompanied by: Is patient in pain?: No Allergies acetaminophen (From Percocet) Allergy (Mild, Verified 03/01/24 14:06) Swelling oxycodone (From Percocet) Allergy (Mild, Verified 03/01/24 14:06) Swelling Penicillins Allergy (Verified 03/01/24 14:06) Rash Sulfa (Sulfonamide Antibiotics) Allergy (Verified 03/01/24 14:06) Rash Medications ???Medication ???Instructions ???Recorded ???Confirmed ???Type ascorbic acid 30 mg-collagen, 1 tab PO DAILY 05/05/23 03/01/24 History hydrolyzed 833.3 mg tablet (Collagen Skin Renewal) aspirin 81 mg tablet,delayed 81 mg PO DAILY 05/05/23 03/01/24 History release calcium carbonate 600 mg-vitamin 1 cap PO DAILY 05/05/23 03/01/24 History D3 12.5 mcg (500 unit) capsule (Calcium 600 with Vitamin D3) citalopram 20 mg tablet 30 mg PO DAILY 05/05/23 03/01/24 History esomeprazole magnesium 40 mg 40 mg PO DAILY 05/05/23 03/01/24 History capsule,delayed release famotidine 20 mg tablet 20 mg PO QHS 05/05/23 03/01/24 History fesoterodine 8 mg tablet,extended 8 mg PO DAILY 05/05/23 03/01/24 History release 24 hr levothyroxine 50 mcg tablet 50 mcg PO DAILY 05/05/23 03/01/24 History melatonin 10 mg tablet 10 mg PO HS 05/05/23 03/01/24 History wxvchwhg-mji-etkfh acid 0.4 1 tab PO DAILY 05/05/23 03/01/24 History mg-lycopene 300 mcg-lutein 250 mcg tablet (Complete Multivitamin Adult 50 Plus) semaglutide 0.25 mg or 0.5 mg (2 0.25 mg subcut TH 05/05/23 03/01/24 History mg/3 mL) subcutaneous pen injector (Ozempic) simvastatin 20 mg tablet 20 mg PO QHS 05/05/23 03/01/24 History Lactobacillus acidophilus 250 500 mmu cells PO DAILY 12/30/23 03/01/24 History million cell capsule (Probiotic Acidophilus) flaxseed oil 1,000 mg capsule 1,000 mg PO DAILY 12/30/23 03/01/24 History Nurse's Note: pt here with post op left breast reduction/port removal. questions on restrictions-can swim/can sleep in bed. Subjective Details: Berenice comes in for recheck of the left breast reduction. She denies any problems. She states she is still applying antibiotic ointment and gauze to the site at the base of her left breast. Objective Details: The open area at the base of the left breast is more shallow and smaller. I debrided some fibrinous exudate. She appears to be getting a rash likely resulting from the antibiotic ointment. I have asked her to abstain from using the ointment and only to apply dry gauze to the site. She can begin sleeping in bed but she is to refrain from swimming pools or hot tubs. Coding Level of Care Code Global Post Op Diagnoses Status post breast reduction Z98.890 S/P breast reconstruction, right Z98.890 [facility] Medical History (Updated 12/30/23 @ 10:49 by Adriana Anne) Post-menopausal Wears glasses Depression Alcohol use Thyroid disease Walker as ambulation aid Arthritis Bladder disease Back pain Syncope Non-smoker CPAP (continuous positive airway pressure) dependence History of pain when walking History of edema History of heart attack Dental root implant present GERD (gastroesophageal reflux disease) High cholesterol Chronic SI joint pain Breast cancer Surgical History (Updated 01/26/24 @ 15:[address] Apolinar Henry MD) History of reduction surgery of left breast History of cardiac catheterization Hx of right cataract extraction Hx of left cataract extraction Hx of colonoscopy Hx of left inguinal hernia repair History of modified radical mastectomy of right breast History of sinus surgery H/O arthroscopy of shoulder History of arthroscopy of knee History of bladder suspension procedure Family History (Updated 05/05/23 @ 14:24 by Elin Beckwith) Mother Heart disease Father Heart disease Social History (Updated 05/05/23 @ 14:23 by Elin Beckwith) Smoking Status: Never smoker alcohol intake: current substance use type: does not use additional social history: Aspirin use daily. Occa (more content not included)... Normal [facility] Plastic Surgery Visit Report on 02-16-2024 Plastic Surgery Visit Report [facility]astic [facility] Surgery [address], [address] [place] [address] OFFICE VISIT Date of Service: 02/16/24 MR#: [id number] Acct: [id number] Name: BERENICE NOLASCO Rep #: [id number] : 1950 Provider: Dr. Apolinar flores MD Age/Sex: 73/F Location: [facility] Status: Signed Intake Vital Signs 02/02/24 14:20 02/16/24 13:27 Height 5 ft 6 in 5 ft 6 in Weight: 201 lb 2 oz 202 lb 4 oz BMI 32.4 32.6 BP 124/78 H 141/90 H Blood Pressure Location Lt brachial Lt brachial Position Sitting Sitting Respiration 16 16 Pulse 68 67 Pulse Source Monitor Temp 98.3 F 99.1 F Temp Source Temporal Temporal Pulse Oximetry (%) 97 93 Oxygen Delivery Method room air room air Intake Visit Reasons: follow up Chief Complaint: post op left breast reduction/port removal Accompanied by: Is patient in pain?: No Allergies acetaminophen (From Percocet) Allergy (Mild, Verified 02/16/24 13:28) Swelling oxycodone (From Percocet) Allergy (Mild, Verified 02/16/24 13:28) Swelling Penicillins Allergy (Verified 02/16/24 13:28) Rash Sulfa (Sulfonamide Antibiotics) Allergy (Verified 02/16/24 13:28) Rash Medications ???Medication ???Instructions ???Recorded ???Confirmed ???Type ascorbic acid 30 mg-collagen, 1 tab PO DAILY 05/05/23 02/16/24 History hydrolyzed 833.3 mg tablet (Collagen Skin Renewal) aspirin 81 mg tablet,delayed 81 mg PO DAILY 05/05/23 02/16/24 History release calcium carbonate 600 mg-vitamin 1 cap PO DAILY 05/05/23 02/16/24 History D3 12.5 mcg (500 unit) capsule (Calcium 600 with Vitamin D3) citalopram 20 mg tablet 30 mg PO DAILY 05/05/23 02/16/24 History esomeprazole magnesium 40 mg 40 mg PO DAILY 05/05/23 02/16/24 History capsule,delayed release famotidine 20 mg tablet 20 mg PO QHS 05/05/23 02/16/24 History fesoterodine 8 mg tablet,extended 8 mg PO DAILY 05/05/23 02/16/24 History release 24 hr levothyroxine 50 mcg tablet 50 mcg PO DAILY 05/05/23 02/16/24 History melatonin 10 mg tablet 10 mg PO HS 05/05/23 02/16/24 History bbdiyqpg-dtv-lyxcf acid 0.4 1 tab PO DAILY 05/05/23 02/16/24 History mg-lycopene 300 mcg-lutein 250 mcg tablet (Complete Multivitamin Adult 50 Plus) semaglutide 0.25 mg or 0.5 mg (2 0.25 mg subcut TH 05/05/23 02/16/24 History mg/3 mL) subcutaneous pen injector (Ozempic) simvastatin 20 mg tablet 20 mg PO QHS 05/05/23 02/16/24 History Lactobacillus acidophilus 250 500 mmu cells PO DAILY 12/30/23 02/16/24 History million cell capsule (Probiotic Acidophilus) flaxseed oil 1,000 mg capsule 1,000 mg PO DAILY 12/30/23 02/16/24 History clindamycin HCl 300 mg capsule 300 mg PO Q8H #21 caps 01/26/24 02/16/24 Rx Nurse's Note: pt here with post op left breast reduction , question on restrictions Subjective Details: Berenice comes in for recheck of her left breast reduction and right breast reconstruction. She denies any problems. She is ready to increase her activity. I reminded her that is only been 4 weeks since her surgery. Objective Details: The right breast incision is well-approximated. There is no evidence of infection. The left breast has a small opening at the base of the vertical incision. This was debrided of fibrinous exudate. I have asked her to continue with her current dressing change. I have asked her to use a type VII gauze versus the synthetic gauze that she is using. I have told her to refrain from extreme activity of her arms for a few more weeks. I will see her back in 2 weeks for recheck. Coding Level of Care Code Global Post Op Diagnoses Status post breast reduction Z98.890 S/P breast reconstruction, right Z98.890 [facility] Medical History (Updated 12/30/23 @ 10:49 by Adriana Anne) Post-menopausal Wears glasses Depression Alcohol use Thyroid disease Walker as ambulation aid Arthritis Bladder disease Back pain Syncope Non-smoker CPAP (continuous positive airway pressure) dependence History of pain when walking History of edema History of heart attack Dental root implant present GERD (gastroesophageal reflux disease) High cholesterol Chronic SI joint pain Breast cancer Surgical History (Updated 01/26/24 @ 15:[address] Apolinar Henry MD) History of reduction surgery of left breast History of cardiac catheterization Hx of right cataract extraction Hx of left cataract extraction Hx of colonoscopy Hx of left inguinal hernia repair History of modified radical mastectomy of right breast History of sinus surgery H/O arthroscopy of shoulder History of arthroscopy of knee History of bladder suspension procedure Family History (Updated 05/05/23 @ 14:24 by Elin Beckwith) Mother Heart disease Father Heart disease Soci (more content not included)... Normal [facility] Plastic Surgery Visit Report on 02-02-2024 Plastic Surgery Visit Report [facility] [address], [address] [place] [address] OFFICE VISIT Date of Service: 02/02/24 MR#: [id number] Acct: [id number] Name: BERENICE NOLASCO Rep #: [id number] : 1950 Provider: Dr. Apolinar flores MD Age/Sex: 73/F Location: [facility] Status: Signed Intake Vital Signs 12/14/23 15:53 01/26/24 14:21 02/02/24 14:20 Height 5 ft 6 in 5 ft 6 in 5 ft 6 in Weight: 200 lb 2 oz 201 lb 2 oz BMI 32.3 32.4 BP 146/93 H 124/78 H Blood Pressure Location Lt brachial Lt brachial Position Sitting Sitting Respiration 16 16 Pulse 66 68 Pulse Source Monitor Monitor Temp 97.5 F L 98.3 F Temp Source Temporal Temporal Pulse Oximetry (%) 95 97 Oxygen Delivery Method room air room air Intake Visit Reasons: post #2 left breast reduction/right port removal Chief Complaint: post op #2 left breast reduction/port removal Is patient in pain?: No Allergies acetaminophen (From Percocet) Allergy (Mild, Verified 01/26/24 14:23) Swelling oxycodone (From Percocet) Allergy (Mild, Verified 01/26/24 14:23) Swelling Penicillins Allergy (Verified 01/26/24 14:23) Rash Sulfa (Sulfonamide Antibiotics) Allergy (Verified 01/26/24 14:23) Rash Medications ???Medication ???Instructions ???Recorded ???Confirmed ???Type ascorbic acid 30 mg-collagen, 1 tab PO DAILY 05/05/23 02/02/24 History hydrolyzed 833.3 mg tablet (Collagen Skin Renewal) aspirin 81 mg tablet,delayed 81 mg PO DAILY 05/05/23 02/02/24 History release calcium carbonate 600 mg-vitamin 1 cap PO DAILY 05/05/23 02/02/24 History D3 12.5 mcg (500 unit) capsule (Calcium 600 with Vitamin D3) citalopram 20 mg tablet 30 mg PO DAILY 05/05/23 02/02/24 History esomeprazole magnesium 40 mg 40 mg PO DAILY 05/05/23 02/02/24 History capsule,delayed release famotidine 20 mg tablet 20 mg PO QHS 05/05/23 02/02/24 History fesoterodine 8 mg tablet,extended 8 mg PO DAILY 05/05/23 02/02/24 History release 24 hr levothyroxine 50 mcg tablet 50 mcg PO DAILY 05/05/23 02/02/24 History melatonin 10 mg tablet 10 mg PO HS 05/05/23 02/02/24 History glscxhok-cot-jsnkz acid 0.4 1 tab PO DAILY 05/05/23 02/02/24 History mg-lycopene 300 mcg-lutein 250 mcg tablet (Complete Multivitamin Adult 50 Plus) semaglutide 0.25 mg or 0.5 mg (2 0.25 mg subcut TH 05/05/23 02/02/24 History mg/3 mL) subcutaneous pen injector (Ozempic) simvastatin 20 mg tablet 20 mg PO QHS 05/05/23 02/02/24 History Lactobacillus acidophilus 250 500 mmu cells PO DAILY 12/30/23 02/02/24 History million cell capsule (Probiotic Acidophilus) flaxseed oil 1,000 mg capsule 1,000 mg PO DAILY 12/30/23 02/02/24 History clindamycin HCl 300 mg capsule 300 mg PO Q8H #21 caps 01/26/24 02/02/24 Rx Nurse's Note: pt here with post op #2 left breast reduction, no issues Subjective Details: Berenice comes in for recheck of her bilateral breast surgery. She denies any problems. She had had an assessment for possible DVT following her last appointment and this was negative. She has been taking clindamycin without difficulty. Objective Details: The incisions are well-approximated. There is no evidence of infection. The redness around the incisions has improved. She can begin showering starting Wednesday. She is to put a thin layer of antibiotic ointment and dry gauze on the incisions. She is to continue sleeping elevated but she can begin to drive as well. I will see her back in 2 weeks for recheck. She is encouraged to call in the interim with any problems or questions. Coding Level of Care Code Global Post Op Diagnoses Status post breast reduction Z98.890 S/P breast reconstruction, right Z98.890 [facility] Medical History (Updated 12/30/23 @ 10:49 by Adriana Anne) Post-menopausal Wears glasses Depression Alcohol use Thyroid disease Walker as ambulation aid Arthritis Bladder disease Back pain Syncope Non-smoker CPAP (continuous positive airway pressure) dependence History of pain when walking History of edema History of heart attack Dental root implant present GERD (gastroesophageal reflux disease) High cholesterol Chronic SI joint pain Breast cancer Surgical History (Updated 01/26/24 @ 15:[address] Apolinar Henry MD) History of reduction surgery of left breast History of cardiac catheterization Hx of right cataract extraction Hx of left cataract extraction Hx of colonoscopy Hx of left inguinal hernia repair History of modified radical mastectomy of right breast History of sinus surgery H/O arthroscopy of shoulder History of arthroscopy of knee History of bladder suspension procedure Family History (Updated 05/05/23 @ 14:24 by Elin Beckwith) Mother Heart disease Father Heart d (more content not included)... Normal [facility] Plastic Surgery Visit Report on 01-26-2024 Plastic Surgery Visit Report [facility] [address], [address] [place] [address] OFFICE VISIT Date of Service: 01/26/24 MR#: [id number] Acct: [id number] Name: BERENICE NOLASCO Rep #: [id number] : 1950 Provider: Dr. Apolinar flores MD Age/Sex: 73/F Location: [facility] Status: Signed Intake Vital Signs 12/14/23 15:53 01/21/24 06:23 01/26/24 14:21 Height 5 ft 6 in 5 ft 6 in 5 ft 6 in Weight: 200 lb 2 oz BMI 32.3 BP 146/93 H Blood Pressure Location Lt brachial Position Sitting Respiration 16 Pulse 66 Pulse Source Monitor Temp 97.5 F L Temp Source Temporal Pulse Oximetry (%) 95 Oxygen Delivery Method room air Intake Visit Reasons: post #1 left breast reduction/port removal Chief Complaint: post op #1 left breast reduction/port removal Accompanied by: Is patient in pain?: No (throat and chest lime kiln 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 ) Allergies acetaminophen (From Percocet) Allergy (Mild, Verified 01/26/24 14:23) Swelling oxycodone (From Percocet) Allergy (Mild, Verified 01/26/24 14:23) Swelling Penicillins Allergy (Verified 01/26/24 14:23) Rash Sulfa (Sulfonamide Antibiotics) Allergy (Verified 01/26/24 14:23) Rash Medications ???Medication ???Instructions ???Recorded ???Confirmed ???Type ascorbic acid 30 mg-collagen, 1 tab PO DAILY 05/05/23 01/26/24 History hydrolyzed 833.3 mg tablet (Collagen Skin Renewal) aspirin 81 mg tablet,delayed 81 mg PO DAILY 05/05/23 01/26/24 History release calcium carbonate 600 mg-vitamin 1 cap PO DAILY 05/05/23 01/26/24 History D3 12.5 mcg (500 unit) capsule (Calcium 600 with Vitamin D3) citalopram 20 mg tablet 30 mg PO DAILY 05/05/23 01/26/24 History esomeprazole magnesium 40 mg 40 mg PO DAILY 05/05/23 01/26/24 History capsule,delayed release famotidine 20 mg tablet 20 mg PO QHS 05/05/23 01/26/24 History fesoterodine 8 mg tablet,extended 8 mg PO DAILY 05/05/23 01/26/24 History release 24 hr levothyroxine 50 mcg tablet 50 mcg PO DAILY 05/05/23 01/26/24 History melatonin 10 mg tablet 10 mg PO HS 05/05/23 01/26/24 History tvdjqjtg-xnh-aqshx acid 0.4 1 tab PO DAILY 05/05/23 01/26/24 History mg-lycopene 300 mcg-lutein 250 mcg tablet (Complete Multivitamin Adult 50 Plus) semaglutide 0.25 mg or 0.5 mg (2 0.25 mg subcut TH 05/05/23 01/26/24 History mg/3 mL) subcutaneous pen injector (Ozempic) simvastatin 20 mg tablet 20 mg PO QHS 05/05/23 01/26/24 History Lactobacillus acidophilus 250 500 mmu cells PO DAILY 12/30/23 01/26/24 History million cell capsule (Probiotic Acidophilus) flaxseed oil 1,000 mg capsule 1,000 mg PO DAILY 12/30/23 01/26/24 History Nurse's Note: pt here is here with for post op left breast reduction, throat and chest still sore, swelling in lower legs. Subjective Details: Berenice comes in for recheck of her left breast reduction and right port removal. She had called over the weekend to report a sore throat, chest pain with swallowing, and redness of her face. She was told to stop the antibiotic which could be causing the redness in her face. Last night she admits to some discomfort in her legs and unable to get comfortable. She had her help her put on her compression stockings as a result. She believes her swelling in her legs is worse than normal. Objective Details: The left breast incisions are well-approximated. She is noted to have some swelling and some mild redness around the incisions. The right breast incision is also intact with some mild redness of the incision. No evidence of cellulitis. She is noted to have bilateral lower extremity swelling. She has compression stockings in place. She has a negative Homans' sign and no calf tenderness. She admits to eating chicken noodle soup from [employer] as well as pulled pork which may have contributed to swelling. Because of the discomfort in her legs and swelling, I have asked them to go the emergency room to be evaluated for DVT. I will call in a prescription for an antibiotic especially in light of and implant being in place. Coding Level of Care Code Global Post Op Diagnoses S/P breast reconstruction, right Z98.890 Breast asymmetry between karuk breast and reconstructed breast N65.1 Status post breast reduction Z98.890 [facility] Medical History (Updated 12/30/23 @ 10:49 by Adriana Anne) Post-menopausal Wears glasses Depression Alcohol use Thyroid disease Walker as ambulation aid Arthritis Bladder disease Back pain Syncope Non-smoker CPAP (continuous positive airway pressure) dependence History of pain when walking History of edema History of heart attack Dental root implant present GERD (gastroesophageal reflux disease) High cholesterol Chronic SI joint pain Breast c (more content not included)... Normal [facility] Discharge Instructionon 01-11 Discharge Instruction [facility] Medical Records Department [address] [place] [address] Instructions for Home/Discharge Instructions 01/21/24 1037 MR#: [id number] Acct: [id number] Name: BERENICE NOLASCO Rep #: [id number] : 1950 73 From: Apolinar Henry MD PCP: Shaikh Villagran Status:REG [facility] Discharge Instructions Dressing / Incision Additional Dressing/Incision [...] Henry MD CC: Shaikh Tyshawn Signed Normal [facility] Operative Reporton 4 Operative Report [facility] Medical Records Department [address] [place] [address] Operative Report 01/21/24 1040 MR#: [id number] Acct: [id number] Name: BERENICE NOLASCO Rep #: [id number] : 1950 73 From: Apolinar Henry MD PCP: Shaikh Villagran Status:[facility] Location: [place] [address]- Problems Associated Problem List Diagnoses (1) S/P breast reconstruction, right: (2) History of cancer of right breast: (3) Breast hypertrophy: (4) Breast asymmetry between karuk breast and reconstructed breast: Report of Operation Date of Procedure: 01/21/24 Pre-Operative Diagnosis: 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 She has previously undergone right breast reconstruction with a tissue coating supervisor with a remote port. She understands that [...] seating of the plug in the tissue coating supervisor. The tube is checked for appropriate location [...] Apolinar Henry MD; Shaikh Tyshawn Signed Normal [facility] Surgery Specimen Level [place] 01-21-2024 Surgery Specimen Level IV Patient Age/Sex Location Account Attending Physician BERENICE NOLASCO 73/F [facility] [id number] Dr. Apolinar Henry MD Specimen: [id number] Received: 01/21/24 Status: PEE [place] Num: [id number] Spec Type: MAMOPLASTY Subm Dr: Dr. Apolinar [...] fibrous areas. No mass lesion is identified. [employer] sections are submitted in six cassettes. Cassette 1 contains the skin piece. SJ: 01/21/24 TC:5 CPT: 82256 Patient Age/Sex Location Account Attending Physician BERENICE NOLASCO 73/F [facility] [id number] Dr. Apolinar Henry MD Signed (signature on file) Dr. Steve Pichardo DO 01/24/24 1306 Normal [facility] Comment on above: Performed By: #### P SUIV #### [facility] [address] [place], [address] Plastic Surgery Visit Report on 01-05-2024 Plastic Surgery Visit Report [facility] [address], [address] [place] [address] OFFICE VISIT Date of Service: 01/05/24 MR#: [id number] Acct: [id number] Name: BERENICE NOLASCO Rep #: [id number] : 1950 Provider: Dr. Apolinar flores MD Age/Sex: 73/F Location: [facility] Status: Signed Intake Vital Signs 12/14/23 15:53 [...] mg PO HS 05/05/23 [History Confirmed 01/05/24] wtrfvqsy-cix-dkibe acid 0.4 mg-lycopene 300 mcg-lutein 250 mcg [...] postoperative instructi (more content not included)... Normal [facility] Automated blood erythrocyte count (number/volume)Ordered By: Apolinar Henry on 12-22-2023 RBC (Bld) [#/Vol] 4.97 10*6/uL Normal 4.2-5.4 [facility] Comment on above: Order Comment: Wei nts: preadmission testing for surgery Performed By: #### L 500.2500, L100.0500 #### [facility] [address] [place], [place], [id number] Automated blood hematocrit ( percentage)Ordered By: Apolinar Henry on 12-22-2023 Hematocrit (Bld) [Volume fraction] 43.9 % Normal 37-47 [facility] Comment on above: Order Comment: Comme nts: preadmission testing for surgery Performed By: #### L 500.2500, L100.0500 #### [facility] [address] [place], [address] Basic Metabolic Profile (BMP )on 12-22-2023 BUN/CRE 20.5 RATIO High 10-20 [facility] Comment on above: Order Comment: pre a dmission testing for surgery Performed By: #### L 500.2500, L100.0500 #### [facility] [address] [place], [address] CA,Total 9.1 mg/dL Normal 8.5-10.1 [facility] Comment on above: Order Comment: pre a dmission testing for surgery Performed By: #### L 500.2500, L100.0500 #### [facility] [address] [place], [address] Chloride [Moles/Vol] 108 mmol/L High 98-107 [facility] Comment on above: Order Comment: pre a dmission testing for surgery Performed By: #### L 500.2500, L100.0500 #### [facility] [address] [place], [address] CO2 [Moles/Vol] 27.0 mmol/L Normal 21.0-32.0 [facility] Comment on above: Order Comment: pre a dmission testing for surgery Performed By: #### L 500.2500, L100.0500 #### [facility] [address] [place], [address] Creatinine [Mass/Vol] 0.68 mg/dL Normal 0.55-1.02 [facility] Comment on above: Order Comment: pre a dmission testing for surgery Result Comment: The validity of the calculated GFR GFRAA in patients over 70 years has not been determined. Clinical correlation is essential. Performed By: #### L 500.2500, L100.0500 #### [facility] [address] [place], [address] EST GFR - AA 108 mL/min Normal >60 [facility] Comment on above: Order Comment: pre a dmission testing for surgery Result Comment: Afri can Swazi GFR Calc Performed By: #### L 500.2500, L100.0500 #### [facility] [address] [place], [address] GAP 3 Low 5-15 [facility] Comment on above: Order Comment: pre a dmission testing for surgery Performed By: #### L 500.2500, L100.0500 #### [facility] [address] [place], [address] GFR/1.73 sq M.predicted among non-blacks MDRD (S/P/Bld) [Vol rate/Area] 90 mL/min/{1.73_m2} Normal >60 [facility] Comment on above: Order Comment: pre a dmission testing for surgery Result Comment: Non- GFR Calc Performed By: #### L 500.2500, L100.0500 #### [facility] [address] [place], [address] Glucose [Mass/Vol] 88 mg/dL Normal 74-106 [facility] Comment on above: Order Comment: pre a dmission testing for surgery Performed By: #### L 500.2500, L100.0500 #### [facility] [address] [place], [address] Potassium [Moles/Vol] 4.6 mmol/L Normal 3.5-5.1 [facility] Comment on above: Order Comment: pre a dmission testing for surgery Performed By: #### L 500.2500, L100.0500 #### [facility] [address] [place], [address] Sodium [Moles/Vol] 138 mmol/L Normal 136-145 [facility] Comment on above: Order Comment: pre a dmission testing for surgery Performed By: #### L 500.2500, L100.0500 #### [facility] [address] [place], [address] Urea nitrogen [Mass/Vol] 14 mg/dL Normal 7-18 [facility] Comment on above: Order Comment: pre a dmission testing for surgery Performed By: #### L 500.2500, L100.0500 #### [facility] [address] [place], [address] Basophil percentageOrdered B y: Apolinar Henry on 12-22-2023 Chloride [Moles/Vol] 108 mmol/L 98-107 [facility] Glucose [Mass/Vol] 88 mg/dL 74-106 [facility] Hemoglobin (Bld) [Mass/Vol] 14.1 g/dL Normal 12.0-15.0 [facility] Comment on above: Order Comment: Comme nts: preadmission testing for surgery Performed By: #### L 500.2500, L100.0500 #### [facility] [address] [facility] [place], [address] Potassium [Moles/Vol] 4.6 mmol/L 3.5-5.1 [facility] Sodium [Moles/Vol] 138 mmol/L 136-145 [facility] WBC (Bld) [#/Vol] 8.1 10*3/uL Normal 4.4-11.0 [facility] Comment on above: Order Comment: Comme nts: preadmission testing for surgery Performed By: #### L 500.2500, L100.0500 #### [facility] [address] [place], [address] CBC-Complete Blood Cnt No Di ffOrdered By: Apolinar Henry on 12-22-2023 MCH (RBC) [Entitic mass] 28.4 pg Normal 27.0-32.0 [facility] Comment on above: Order Comment: Comme nts: preadmission testing for surgery Performed By: #### L 500.2500, L100.0500 #### [facility] [address] [place], [address] MCHC (RBC) [Mass/Vol] 32.1 g/dL Normal 32-36 [facility] Comment on above: Order Comment: Commnicki nts: preadmission testing for surgery Performed By: #### L 500.2500, L100.0500 #### [facility] [address] [place], [address] Platelet mean volume (Bld) [Entitic vol] 10.8 fL Normal 6.2-12.0 [facility] Comment on above: Order Comment: Commnicki nts: preadmission testing for surgery Performed By: #### L 500.2500, L100.0500 #### [facility] [address] [place], [address] Platelets (Bld) [#/Vol] 188 10*3/uL Normal 150-450 [facility] Comment on above: Order Comment: Commnicki nts: preadmission testing for surgery Performed By: #### L 500.2500, L100.0500 #### [facility] [address] [place], [address] CBC-Complete Blood Cnt No Di ffon 12-22-2023 RDW SD 44.7 fl High 35.1-43.9 [facility] Comment on above: Order Comment: Commnicki nts: preadmission testing for surgery Performed By: #### L 500.2500, L100.0500 #### [facility] [address] [place], [address] Determination of erythrocyte mean corpuscular volume (MCV)Ordered By: Apolinar Henry on 12-22-2023 MCV (RBC) [Entitic vol] 88.3 fL Normal 81-99 [facility] Comment on above: Order Comment: Commnicki nts: preadmission testing for surgery Performed By: #### L 500.2500, L100.0500 #### [facility] [address] [place], [address] Erythrocyte distribution wid th ratioOrdered By: Apolinar Henry on 12-22-2023 Erythrocyte distribution width (RBC) [Ratio] 13.9 % Normal 11.6-14.6 [facility] Comment on above: Order Comment: Comme nts: preadmission testing for surgery Performed By: #### L 500.2500, L100.0500 #### [facility] [address] [place], [place], [address] Erythrocyte distribution wid th standard deviationOrdered By: Apolinar Henry on 12-22-2023 Erythrocyte distribution width (RBC) [Entitic vol] 44.7 fL 35.1-43.9 [facility] - Chemistry and C hemistry - challengeOrdered By: Apolinar Henry on 12-22-2023 CO2 [Moles/Vol] 27.0 mmol/L 21.0-32.0 [facility] Urea nitrogen/Creatinine [Mass ratio] 20.5 mg/mg 10- [facility] No Panel InformationOrdered By: Apolinar Henry on 12-22-2023 Estimated GFR (MDRD) Amer 108 mL/min >60 [facility] Comment on above: GFR Calc Estimated GFR (MDRD) Non-Af Amer 90 mL/min >60 [facility] Comment on above: Non- GFR Calc Plastic Surgery Visit Report on 12-22-2023 Plastic Surgery Visit Report [facility] [address] [place], [place] [address] OFFICE VISIT Date of Service: 12/22/23 MR#: [id number] Acct: [id number] Name: BERENICE NOLASCO Rep #: [id number] : 1950 Provider: Dr. Apolinar flores MD Age/Sex: 73/F Location: [facility] Status: Signed Intake Vital Signs 12/14/23 15:53 [...] mg PO HS 05/05/23 [History Confirmed 12/22/23] jpbhlork-ume-evazr acid 0.4 mg-lycopene 300 mcg-lutein 250 mcg [...] op #1 left breast reduction/port removal right- [facility] Medical History (Updated 05/05/23 @ 15:33 by [...] Level of (more content not included)... Normal [facility] Serum or plasma calcium adalgisa urement (mass/volume)Ordered By: Apolinar Henry on 12-22-2023 Calcium [Mass/Vol] 9.1 mg/dL 8.5-10.1 [facility] Serum or plasma creatinine m easurement (mass/volume)Ordered By: Apolinar Henry on 12-22-2023 Creatinine [Mass/Vol] 0.68 mg/dL 0.55-1.02 [facility] Comment on above: The validity of the calculated GFR & GFRAA in patients over 70 years has not been determined. Clinical correlation is essential. Serum or plasma urea nitroge n measurement (mass/volume)Ordered By: Apolinar Henry on 12-22-2023 Urea nitrogen [Mass/Vol] 14 mg/dL 7-18 [facility] Thin prep Papanicolaou smear with manual screeningOrdered By: Apolinar Henry on 12-22-2023 Thin prep Papanicolaou smear with manual screening 3 5-15 [facility] Plastic Surgery Visit Report on 12-14-2023 Plastic Surgery Visit Report [facility] [address], [address] [place] [address] OFFICE VISIT Date of Service: 12/14/23 MR#: [id number] Acct: [id number] Name: BERENICE NOLASCO Rep #: [id number] : 1950 Provider: Dr. Apolinar flores MD Age/Sex: 73/F Location: [facility] Status: Signed Intake Vital Signs 06/30/23 15:08 [...] mg PO HS 05/05/23 [History Confirmed 12/14/23] hjzascph-skx-onkee acid 0.4 mg-lycopene 300 mcg-lutein 250 mcg [...] future surgery Left breast reduction, removal right coating supervisor pot. [facility] Medical History (Updated 05/05/23 @ 15:33 by [...] Exam Details The patient's right breast tissue coating supervisor is in good position and the port [...] remove the port on the right tissue coating supervisor which has the capability of functioning as a permanent implant. The surgery would be done as an outpatient under general anesthetic. Const General: cooperative and healthy appearing Nutritional Appearance: overweight Orientation: alert [facility] Head: normal to inspection Eyes General: appearance normal, both eyes and all related structures Neck Neck: normal visual inspection Neuro General: patient alert Other: Slightly unsteady gait (more content not included)... Normal [facility] MR BRAIN W WO CONTon 024 [...] Kwon DO on 11/19/2023 10:48 AM Normal [facility] Surgery Office/Clinic Noteon 10-11-2023 Surgery Office/Clinic Note [...] breast cancer History of colonoscopy with polypectomy HI (myocardial infarction) (2013) Morbid obesity with body [...] catheterization (07/2014) Comments: HAD HEART CATH AFTER HI DURING KNEE SCOPE. NO STENTS WERE PLACED [...] documented surgical case Esophagogastroduodenoscopy with Biopsy with Aarna (02/15/2020) Comments: auto-populated from documented surgical case [...] cancer: Aunt/Uncle. (more content not included)... Normal [facility] Urology Office/Clinic Noteon 09-01-2023 Urology Office/Clinic [...] breast cancer History of colonoscopy with polypectomy HI (myocardial infarction) (2013) Morbid obesity with body [...] by Kevin Joaquin 09/01/23 12:02 EST Normal [facility] Surgery Office/Clinic Noteon 07-20-2023 Surgery Office/Clinic [...] inguinal, left History of colonoscopy with polypectomy HI (myocardial infarction) (2013) Morbid obesity with body [...] Emely Zendejas PA-C 07/21/2023 08:27 EST Normal [facility] Operative Reporton Operative Report Indication for Surge ry Patient is a 73 year old female with a symptomatic reducible left inguinal hernia Preoperative Diagnosis Symptomatic left inguinal hernia Postoperative Diagnosis same Operation Robotic left inguinal hernia repair Surgeon(s) Asia Zendejas PA-C Anesthesia Hempfling ANIMAL HUSBANDRY PROFESSOR, GET Estimated Blood Loss 5 ml Urine [...] Jovan Betancourt MD 07/01/23 10:19 EDT Normal [facility] Plastic Surgery Visit Report on 06-30-2023 Plastic Surgery Visit Report [facility] [address], [address] [place], [place] [address] OFFICE VISIT Date of Service: 06/30/23 MR#: [id number] Acct: [id number] Name: BERENICE NOLASCO Rep #: [id number] : 1950 Provider: Dr. Apolinar flores MD Age/Sex: 73/F Location: [facility] Status: Signed Intake Vital Signs [...] Reasons: preop #1 left breast red/ right coating supervisor port Chief Complaint: left breast red and [...] mg PO HS 05/05/23 [History Confirmed 06/30/23] ckrifrxj-lvw-qihxv acid 0.4 mg-lycopene 300 mcg-lutein 250 mcg [...] HPI preop #1 left breast red/ right coating supervisor port Details: Berenice comes in for preliminary [...] N65.1 Assessment (more content not included)... Normal [facility] .eGFRon 06-01-2023 GFR/1.73 sq M.predicted MDRD (S/P/Bld) [Vol rate/Area] mL/min/{1.73_m2} Normal >=60 [facility] Comment on above: Order Comment: Order added by Discern rule Result Comment: [facility] have implemented the eGFR calculation [...] years Performed By: #### E GFR #### [facility] [address] [place] [address] CBC w/ Diffon 06-01-2023 Erythrocyte distribution width (RBC) [Ratio] 14.9 % High 11.6-14.8 [facility] Comment on above: Performed By: #### C BC #### [place] [address] Hematocrit (Bld) [Volume fraction] 41.0 % Normal 36.0-46.0 [facility] Comment on above: Performed By: #### C BC #### [place] [address] Hemoglobin (Bld) [Mass/Vol] 13.8 g/dL Normal 12.0-16.0 [facility] Comment on above: Performed By: #### C BC #### [place] [address] MCH (RBC) [Entitic mass] 28.6 pg Normal 27.0-35.0 [facility] Comment on above: Performed By: #### C BC #### [place] [address] MCHC 33.7 % Normal 31.0-37.0 [facility] Comment on above: Performed By: #### C BC #### [place] [address] MCV (RBC) [Entitic vol] 85.0 fL Normal 80.0-100.0 [facility] Comment on above: Performed By: #### C BC #### [place] [address] Platelet 180 x10*3/mcL Normal 150-450 [facility] Comment on above: Performed By: #### C BC #### [place] [address] Platelet mean volume (Bld) [Entitic vol] 8.6 fL Normal 7.5-11.5 [facility] Comment on above: Performed By: #### C BC #### [place] [address] RBC 4.82 x10*6/mcL Normal 3.80-5.20 [facility] Comment on above: Performed By: #### C BC #### [place] [address] WBC 8.6 x10*3/mcL Normal 4.5-11.0 [facility] Comment on above: Performed By: #### C BC #### [place] [address] CMPon 06-01-2023 Albumin [Mass/Vol] 4.1 g/dL Normal 3.7-5.3 [facility] [place] Comment on above: Performed By: #### C OMP #### [place] [address] Albumin/Globulin [Mass ratio] 1.5 {ratio} Normal 1.1-2.2 [facility] Comment on above: Performed By: #### C OMP #### [place] [address] Alk Phos 130 IU/L High 34-104 [facility] Comment on above: Performed By: #### C OMP #### [place] [address] ALT [Catalytic activity/Vol] 37 U/L Normal 7-52 [facility] Comment on above: Performed By: #### C OMP #### [place] [address] Anion gap [Moles/Vol] 10 mmol/L Normal 7-17 [facility] Comment on above: Performed By: #### C OMP #### [place] [address] AST [Catalytic activity/Vol] 31 U/L Normal 13-39 [facility] Comment on above: Performed By: #### C OMP #### [place] [address] Bili Total 0.6 mg/dL Normal 0.3-1.0 [facility] Comment on above: Performed By: #### C OMP #### [place] [address] Calcium [Mass/Vol] 9.4 mg/dL Normal 8.6-10.3 [facility] [place] Comment on above: Performed By: #### C OMP #### [address] [address] Chloride 103 IU/L Normal 98-107 [facility] Comment on above: Performed By: #### C OMP #### [address] [address] CO2 [Moles/Vol] 28 mmol/L Normal 21-31 [facility] Comment on above: Performed By: #### C OMP #### [address] [address] Creatinine [Mass/Vol] 0.79 mg/dL Normal 0.60-1.20 [facility] Comment on above: Performed By: #### C OMP #### [address] [address] Glucose [Mass/Vol] 108 mg/dL High 70-99 [facility] [place] Comment on above: Performed By: #### C OMP #### [address] [address] Potassium [Moles/Vol] 4.2 mmol/L Normal 3.4-4.8 [facility] Comment on above: Performed By: #### C OMP #### [address] [address] Protein [Mass/Vol] 6.8 g/dL Normal 6.0-8.3 [facility] [place] Comment on above: Performed By: #### C OMP #### [address] [address] Sodium [Moles/Vol] 137 mmol/L Normal 136-145 [facility] [place] Comment on above: Performed By: #### C OMP #### [address] [address] Urea nitrogen [Mass/Vol] 17 mg/dL Normal 7-25 [facility] Comment on above: Performed By: #### C OMP #### [address] [address] Urea nitrogen/Creatinine [Mass ratio] 21.5 mg/mg High 10.0-20.0 [facility] Comment on above: Performed By: #### C OMP #### [place] [address] Diff Autoon 06-01-2023 Baso Absolute 0.0 x10*3/mcL Normal 0.0-0.2 [facility] Comment on above: Performed By: #### C OMP #### [place] [address] Basophils/100 WBC (Bld) 0.3 % Normal 0.0-1.5 [facility] Comment on above: Performed By: #### C OMP #### [place] [address] Eos Absolute 0.1 x10*3/mcL Normal 0.0-0.4 [facility] Comment on above: Performed By: #### C OMP #### [place] [address] Eosinophils/100 WBC (Bld) 1.1 % Normal 0.0-5.4 [facility] Comment on above: Performed By: #### C OMP #### [place] [address] Lymph Absolute 2.0 x10*3/mcL Normal 1.0-4.8 [facility] Comment on above: Performed By: #### C OMP #### [place] [address] Lymphocytes/100 WBC (Bld) 23.1 % Low 27.2-40.8 [facility] Comment on above: Performed By: #### C OMP #### [place] [address] [place] Absolute 0.4 x10*3/mcL Normal 0.1-1.1 [facility] Comment on above: Performed By: #### C OMP #### [address] [address] Monocytes/100 WBC (Bld) 5.1 % Normal 3.7-11.9 [facility] Comment on above: Performed By: #### C OMP #### [address] [address] Neutro Absolute 6.1 x10*3/mcL Normal 1.8-7.7 [facility] [place] Comment on above: Performed By: #### C OMP #### [address] [address] Neutro Auto 70.4 % Normal 47.2-70.8 [facility] Comment on above: Performed By: #### C OMP #### [address] [address] Plastic Surgery Visit Report on 05-05-2023 Plastic Surgery Visit Report [facility] [address] [place] [address] OFFICE VISIT Date of Service: 05/05/23 MR#: [id number] Acct: [id number] Name: BERENICE NOLASCO [place] Rep #: [id number] : 1950 Provider: Dr. Apolinar flores MD Age/Sex: 73/F Location: [facility] Status: Signed Intake Vital Signs 05/05/23 14:25 Height 5 ft 6 in Weight: 217 lb BMI 35.0 BP 120/78 Blood Pressure Location Lt brachial Position Sitting Respiration 16 Pulse 70 Pulse Source Monitor Temp 97.7 F L Temp Source Temporal Pulse Oximetry (%) 96 Oxygen Delivery Method room air Intake Visit Reasons: Consult Chief Complaint: Right breast reconsruction consult Decal Cutter Required: No Accompanied by: Is patient in [...] mg PO HS 05/05/23 [History Confirmed 05/05/23] tfsmwlbo-bup-tanaw acid 0.4 mg-lycopene 300 mcg-lutein 250 mcg [...] after having undergone reconstruction with a tissue coating supervisor. Her initial right mastectomy was done approximately 30 years ago. She underwent placement of a tissue coating supervisor in . Her last fill was in . She has a total of 390 cc of saline and the implant which is the capacity of the coating supervisor as a permanent prosthesis. Her implant is a Waddell smooth round spectrum style 1400. Reference #[id number] has decided to leave the coating supervisor and is a permanent implant. We had [...] incontinence Exam Chest Other: Patient with a coating supervisor in place on the right breast. The port is palpable in the in (more content not included)... Normal [facility] Urology Office/Clinic Noteon 02-18-2023 Urology Office/Clinic [...] breast cancer History of colonoscopy with polypectomy HI (myocardial infarction) Morbid obesity with body mass [...] by Kevin Joaquin 02/18/23 15:27 EDT Normal [facility] Urology Office/Clinic Noteon 12-23-2022 Urology Office/Clinic [...] chew, # 30 tabs, 11 Refill(s), Pharmacy: [id number] Problem List/Past Medical History Ongoing Arthritis of left hip CAD (coronary artery disease) Chronic cough Chronic GERD CPAP/BiPAP dependent Cystocele Depression Drug-induced obesity with body mass index (BMI) of 35 to less than 40 Encounter for gynecological examination (general) (routine) without abnormal findings Feeling of incomplete bladder emptying GERD H/O cardiac catheterization History of breast cancer History of colonoscopy with polypectomy Hyperlipidemia HI (myocardial infarction) Morbid obesity with body mass [...] by Kevin Joaquin 12/23/22 17:08 EDT Normal [facility] VC CONSULT FOLLOWUPon 2022 VC CONSULT FOLLOWUP Patient: LETICIA NOLASCOPiero Exam Date: 12/16/2022 : 1950 Gender:F Ordering : SHAIKH Quirino VILLAGRAN . Admission #: [id number] Family : Order #: [id number] CLICK HERE TO VIEW EXAM RADIOLOGY REPORT [...] MD on 12/16/2022 at 14:59 Normal [facility] CBC AUTO DIFFon 09-16-2022 BASO # 0.0 103/ul Normal 0.0-0.[address] [facility] Comment on above: Performed By: #### C BC #### [facility] [address], [place] [address] Dr. Danielle Penaloza Basophils/100 WBC (Bld) 0.5 % Normal 0.2-2.0 [facility] Comment on above: Performed By: #### C BC #### [facility] [address] [place], [place] [address] Dr. Danielle Penaloza EO # 0.1 103/ul Normal 0.0-0.7 [facility] Comment on above: Performed By: #### C BC #### [facility] [address] [place] [address] Dr. Danielle Penaloza Eosinophils/100 WBC (Bld) 1.2 % Normal 0.9-7.0 [facility] Comment on above: Performed By: #### C BC #### [facility] [address] [place] [address] Dr. Danielle Penaloza Erythrocyte distribution width (RBC) [Ratio] 14.2 % Normal 11.0-15.0 [facility] Comment on above: Performed By: #### C BC #### [facility] [address] [place] [address] Dr. Danielle Penaloza Hematocrit (Bld) [Volume fraction] 42.5 % Normal 36.0-48.0 [facility] Comment on above: Performed By: #### C BC #### [facility] [address] [place] [address] Dr. Danielle Penaloza Hemoglobin (Bld) [Mass/Vol] 14.1 g/dL Normal 12.0-16.0 [facility] Comment on above: Performed By: #### C BC #### [facility] [address] [place] [address] Dr. Danielle Penaloza IG # 0.02 10e3/ul Normal 0.00-0.03 [facility] Comment on above: Performed By: #### C BC #### [facility] [address] [place] [address] Dr. Danielle Penaloza IG % 0.2 % Normal 0.0-0.[address] [facility] Comment on above: Performed By: #### C BC #### [facility] [address] [place] [address] Dr. Danielle Penaloza LYMPH # 1.9 103/ul Normal 1.2-3.[address] [facility] Comment on above: Performed By: #### C BC #### [facility] [address] [place] [address] Dr. Danielle Penaloza Lymphocytes/100 WBC (Bld) 23.4 % Normal 20.5-60.[address] [facility] Comment on above: Performed By: #### C BC #### [facility] [address] [place] [address] Dr. Danielle Penaloza MANUAL DIFF REQ NO Normal [facility] [place] [facility] Comment on above: Performed By: #### C BC #### [facility] [address] [place] [address] Dr. Danielle Penaloza MCH (RBC) [Entitic mass] 28.1 pg Normal 26.7-34.0 [facility] Comment on above: Performed By: #### C BC #### [facility] [address] [place] [address] Dr. Danielle Penaloza MCHC (RBC) [Mass/Vol] 33.2 g/dL Normal 29.9-35.2 [facility] Comment on above: Performed By: #### C BC #### [facility] [address] [place] [address] Dr. Danielle Penaloza MCV (RBC) [Entitic vol] 84.8 fL Normal 81.0-99.0 [facility] Comment on above: Performed By: #### C BC #### [facility] [address] [place] [address] Dr. Danielle Penaloza MONO # 0.5 103/ul Normal 0.3-0.8 [facility] Comment on above: Performed By: #### C BC #### [facility] [address] [place] [address] Dr. Danielle Penaloza Monocytes/100 WBC (Bld) 6.0 % Normal 1.7-12.0 [facility] Comment on above: Performed By: #### C BC #### [facility] [address] [place] [address] Dr. Danielle Penaloza NEUT # 5.5 103/ul Normal 1.4-6.[address] [facility] Comment on above: Performed By: #### C BC #### [facility] [address] [place] [address] Dr. Danielle Penaloza Neutrophils/100 WBC (Bld) 68.7 % Normal 43.0-75.0 [facility] Comment on above: Performed By: #### C BC #### [facility] [address] [place] [address] Dr. Danielle Penaloza Platelet mean volume (Bld) [Entitic vol] 9.9 fL Normal 9.5-13.5 [facility] Comment on above: Performed By: #### C BC #### [facility] [address] [place] [address] Dr. Danielel Penaloza PLT 186 103/ul Normal 150-[address] [facility] Comment on above: Performed By: #### C BC #### [facility] [address] [place] [address] Dr. Danielle Penaloza RBC 5.01 106/ul Normal 4.20-5.40 [facility] Comment on above: Performed By: #### C BC #### [facility] [address] [place] [address] Dr. Danielle Penaloza WBC 8.1 103/ul Normal 4.0-11.0 [facility] Comment on above: Performed By: #### C BC #### [facility] [address] [place] [address] Dr. Danielle Penaloza PROF CHEM 8 (BAS METB)on Anion gap [Moles/Vol] 10.8 mmol/L Normal [facility] Comment on above: Performed By: #### B MP, TSH #### [facility] [address] [place] [address] Dr. Danielle Penaloza Calcium [Mass/Vol] 9.2 mg/dL Normal 8.5-10.1 [facility] Comment on above: Performed By: #### B MP, TSH #### [facility] [address] [place] [address] Dr. Danielle Penaloza Chloride [Moles/Vol] 103 mmol/L Normal 98-107 [facility] Comment on above: Performed By: #### B MP, TSH #### [facility] [address] [place] [address] Dr. Danielle Penaloza CO2 [Moles/Vol] 30.5 mmol/L Normal 21.0-32.0 [facility] Comment on above: Performed By: #### B MP, TSH #### [facility] [address] [address] [address] Danielle Penaloza Creatinine [Mass/Vol] 0.63 mg/dL Normal 0.55-1.02 [facility] Comment on above: Performed By: #### B MP, TSH #### [facility] [address] [address] [address] Danielle Penaloza EGFR-AF SOMALI >60 Normal >=60 [facility] Comment on above: Performed By: #### B MP, TSH #### [facility] [address] [place] [address] [address] Danielle Penaloza EGFR-NON AF SOMALI >60 Normal >=60 [facility] Comment on above: Performed By: #### B MP, TSH #### [facility] [address] [address] [address] Danielle Penaloza Glucose [Mass/Vol] 101 mg/dL Normal 74-106 [facility] Comment on above: Performed By: #### B NELSY, TSH #### [facility] [address] [address] [address] Danielle Penaloza Potassium [Moles/Vol] 4.3 mmol/L Normal 3.5-5.1 [facility] Comment on above: Performed By: #### B MP, TSH #### [facility] [address] [place] [address] Dr. Danielle Penaloza Sodium [Moles/Vol] 140 mmol/L Normal 136-145 [facility] Comment on above: Performed By: #### B MP, TSH #### [facility] [address] [address] [address] Danielle Penaloza Urea nitrogen [Mass/Vol] 17.0 mg/dL Normal 7.0-18.0 [facility] Comment on above: Performed By: #### B MP, TSH #### [facility] [address] [address] [address] Danielle Penaloza Urea nitrogen/Creatinine [Mass ratio] 27.0 mg/mg Normal [facility] Comment on above: Performed By: #### B MP, TSH #### [facility] [address], [place] [address] Dr. Danielle Penaloza TSHon 09-16-2022 TSH 2.028 uIU/mL Normal 0.358-3.740 [facility] Comment on above: Performed By: #### B MP, TSH #### [facility] [address] [place], [place] [address] Dr. Danielle Penaloza VC COMP CONSULTATIONon 09-16 VC COMP CONSULTATION Patient: NAYANA NOLASCO Exam Date: 09/16/2022 : 1950 Gender:F Ordering : SHAIKH Quirino VILLAGRAN . Admission #: [id number] Family : Order #: [id number] CLICK HERE TO VIEW EXAM RADIOLOGY REPORT [...] arterial disease 5. CEAP: C3, AP, AP, MD PLAN: 1. Use of compression stockings 2. [...] Boudreaux M.D. on 09/16/2022 at 15:49 Normal [facility] VC VENOUS REFLUX CHARLIE LMTon 0 09-16-2022 VC VENOUS REFLUX CHARLIE LMT Patient: BERENICE NOLASCO Exam Date: 09/16/2022 : 1950 Gender:F Ordering : SHAIKH Quirino VILLAGRAN . Admission #: [id number] Family : Order #: [id number] CLICK HERE TO VIEW EXAM RADIOLOGY REPORT [...] thrombus. Compressibility: Normal. Flow: Deep venous reflux. Head Chef: Prox medial lower leg perf measures 4.3 [...] M.D. on 09/16/2022 at 15:41 [address] [facility] XR CHEST PA AND LATERALon XR [...] Degenerative changes of the thoracic spine. Normal [facility] XR Chest PA and Lateralon Radiology Study observation (narrative) [facility] Findings and impress ion: 1. No acute [...] abnormality. Degenerative changes of the thoracic spine. [facility] XR Chest PA and LateralOrder ed By: Silvestre Rivera on 09-15-2022 [facility] Work Phone: ECHOCARDIO M/2D COMPLETEon 1 ECHOCARDIO M/2D COMPLETE Patient: BERENICE NOLASCO Exam Date: 06/22/2022 : 1950 Gender:F Ordering : SHAIKH Quirino VILLAGRAN . Admission #: [id number] Family : APOLINAR HENRY Order #: [id number] CLICK HERE TO VIEW EXAM ECHOCARDIOGRAM REPORT [...] Mc M.D. on 06/23/2022 at 14:19 Normal [facility] FASTINGon 06-16-2022 A:G RATIO 1.6 RATIO Normal 1.3-2.2 [facility] [place] [facility] Comment on above: Performed By: #### C [facility] #### [place] [address] ALBUMIN 4.4 G/dl Normal 3.5-5.0 [facility] [place] [facility] Comment on above: Performed By: #### C MPF #### Testing performed at [address] [address] ALP [Catalytic activity/Vol] 124 U/L Normal 38-126 [facility] [place] [facility] Comment on above: Performed By: #### C MPF #### Testing performed at [address] [address] ALT [Catalytic activity/Vol] 35 U/L High <35 [facility] [place] [facility] Comment on above: Performed By: #### C MPF #### Testing performed at [address] [address] AST [Catalytic activity/Vol] 31 U/L Normal 14-36 [facility] [place] [facility] Comment on above: Performed By: #### C MPF #### Testing performed at [address] [address] Bilirubin [Mass/Vol] 0.5 mg/dL Normal 0.2-1.3 [facility] Comment on above: Performed By: #### C MPF #### Testing performed at [address] [address] Calcium [Mass/Vol] 8.8 mg/dL Normal 8.4-10.2 [facility] [place] [facility] Comment on above: Performed By: #### C MPF #### Testing performed at [address] [address] Chloride [Moles/Vol] 102 mmol/L Normal 98-107 [facility] Comment on above: Result Comment: Plea se note: Triglyceride levels of 600mg/dL or higher may positively bias chloride results by approximately 2.1 mmol Performed By: #### C MPF #### Testing performed at [address] [address] CO2 [Moles/Vol] 28 mmol/L Normal 22-30 [facility] Comment on above: Performed By: #### C MPF #### Testing performed at [address] [address] Creatinine [Mass/Vol] 0.60 mg/dL Low 0.7-1.2 [facility] [place] [facility] Comment on above: Performed By: #### C MPF #### Testing performed at [facility] [place] [facility] [address] [phone] EST. GFR, 126 ml/min/1.73sq.m [facility] Comment on above: Performed By: #### C MPF #### Testing performed at [address] [id number] EST. GFR,Non 104 ml/min/1.73sq.m [facility] Comment on above: Performed By: #### C MPF #### [place] [address] GFR Information Average GFR for 70+ years old = 75. [facility] Comment on above: Result Comment: Acetaldehyde Converter Operator kurtis Kidney disease, GFR = <60. Kidney failure, GFR = <15. The GFR estimate is not adjusted for extreme body surface area or acute process, nor has it been validated for women or ethnic groups other than and . Testing performed at [place] [address] Performed By: #### C MPF #### [place] [address] Glucose [Mass/Vol] 98 mg/dL Normal 70-100 [facility] [place] [facility] Comment on above: Result Comment: NORMAL <100 mg/dL PREDIABETES 101-126 mg/dL DIABETES 126 mg/dL or higher Performed By: #### C MPF #### [place] [address] Potassium [Moles/Vol] 4.3 mmol/L Normal 3.5-5.1 [facility] [place] [facility] Comment on above: Performed By: #### C MPF #### [place] [address] Protein [Mass/Vol] 7.2 g/dL Normal 6.3-8.2 [facility] [place] [facility] Comment on above: Performed By: #### C MPF #### Testing performed at [address] [address] Sodium [Moles/Vol] 139 mmol/L Normal 137-145 [facility] [place] [facility] Comment on above: Performed By: #### C MPF #### Testing performed at [facility] [place] [facility] [address] [place] [address] Urea nitrogen [Mass/Vol] 14 mg/dL Normal 7-20 [facility] [place] [facility] Comment on above: Performed By: #### C MPF #### Testing performed at [facility] [place] [facility] [address] [id number] FREE T3on 03-24-2022 FREE T3 2.69 pg/mlL Normal 2.18-3.[address] [facility] Comment on above: Performed By: #### B MP, TSH #### [facility] [address], [place] [address] Dr. Danielle Penaloza TSHon 03-24-2022 TSH 2.001 uIU/mL Normal 0.358-3.740 [facility] Comment on above: Performed By: #### T SH, FT3 #### [facility] [address], [place] [address] Dr. Danielle Penaloza [facility]on 02-12 SARS-CoV-2 (COVID-19) RNA ADELAIDA+probe Ql (Unsp spec) Not detected Normal NOT DETECTED [facility] Comment on above: Result Comment: This test is not yet approved or cleared by the [place] FDA. When there are no FDA-approved or cleared tests available, and other criteria are met, FDA can make tests available under an emergency access mechanism called an Emergency Use Authorization (EUA). The EUA for this test is supported by the Press Breaker of Health and Human Service's (HHS's) declaration [...] consistent with SARS-CoV-2. Performed By: #### C [facility] #### [facility] [address] [place] [address] Dr. Danielle Penaloza Operative Reporton 0 Operative Report MR#: [id number] [facility] Pt. Name: Berenice Nolasco Room #: 0C Discharge Date: Birthdate: 1950 OPERATIVE REPORT DATE OF SURGERY: 06/07/2020 SURGEON: Adam Skinner M.D. PREOPERATIVE DIAGNOSIS: Right knee medial and lateral meniscal tears. POSTOPERATIVE DIAGNOSES: 1. Right knee medial and lateral meniscal tears. 2. Right knee Hoffa's fat pad hypertrophy and inflammation. VOICE NETWORK ADMINISTRATOR: Bindu Rick M.D. ANESTHESIA: General. PROCEDURES PERFORMED: [...] Skinner M.D. Date Trans: 06/07/2020 09:06 Sonny/irena DN_JN:[id number] cc: Trino Montiel M.D. [address] [place] [address] Normal [facility] POC GLUCOSE LABon 06-07-2020 Glucose [Mass/Vol] 109 mg/dL High 70-100 [facility] Comment on above: Performed By: #### 8 5499 #### [address] *SARS-CoV-2 COVID-19on 06-04 [id number]-CXNTN-05 Not Detected Normal Not Detected [facility] Comment on above: Order Comment: The A ptima SARS-CoV-2 assay is a nucleic acid amplification test intended for the qualitative detection of RNA from SARS-CoV-2 isolated and purified from nasopharyngeal (COMPENSATION AND BENEFITS ADVISOR),oropharyngeal (OP), nasal swab, sputum, and bronchoalveolar lavage (BAL) specimens from patients with signs and symptoms of infection who are suspected of COVID-19. Results are for the identification of SARS-CoV-2 RNA. The SARS-CoV-2 RNA is generally detectable during the acute phase of infection. The Aptima SARS-CoV-2 Assay on the [employer] system is intended for use by laboratory personnel specifically instructed and trained in the operation of the [employer] system. The Aptima SARS-CoV-2 assay is [...] information. Performed By: #### 3 1792 #### [address] KNEE RIGHT 3 [facility] 0 KNEE RIGHT 3 [facility] Department of Radiology [address] [place] [phone] Patient Name: BERENICE NOLASCO : 1950 Sex: F Age: Race: White Pt. Location: Patient Status: O Ordered Date: 01/22/2020 11:35:00 AM Completed Date: 01/22/2020 11:43 AM Requesting Provider: ADAM SKINNER Attending Provider: ADAM SKINNER Report Copy To: TRNIO MONTIEL Signs & Symptoms: S83.281A Oth tear of lat mensc, current injury, right knee, init I10 History: Nina Comments: Exam: KNEE RIGHT 3 VWS KNEE RIGHT 3 VWS 01/22/2020 11:43 AM [...] reports Electronically signed: DELANO BLANCO. Transcribed by: [email or web address], User Resident: YONY PAN Electronically Signed by: DELANO BLANCO @ 01/22/2020 02:18 PM I personally read this/these film(s) with this resident Normal [facility] ED PROV NOTEon 08-06-2018 Protein mass conc HNO ID: [id number] thor: Cas Estrada: (none)Author Type: PhysicianType: ED Provider NotesFiled: 08/13/2018 10:43 AMNote Text:[facility] [place] [facility] [place] [address]IYHQMQ INFORMATION MANAGEMENTEMERGENCY DEPARTMENT REPORTPatient: BERENICE NOLASCO JOEL A M.D. as dictated by GRUPO BROUSSARD, MELINA-[id number] FStatus: [facility] EDDate of Service: 08/05/18CHIEF COMPLAINTThis is [...] paresthesia. No weakness of extremities. [facility].PHYSICAL EXAMINATIONHer blood pressure is 122/77, temperature 99.1, [...] M.D. Signed By: CAS CANTU M.D.Tests performed at:[address] [phone] Normal [facility] ED REPORTon 08-06-2018 ED REPORT [place], [place] [address]FHYVOS INFORMATION MANAGEMENTEMERGENCY DEPARTMENT REPORTPatient: BERENICE NOLASCO JOEL A M.D. as dictated by GRUPO BROUSSARD, MELINA-[id number] FStatus: [facility] EDDate of Service: 08/05/18CHIEF COMPLAINTThis [...] of the plan of care will be dischargedhome.Max eh sinusitis. 08/13/18 1027 CAS CANTU M.D.cc: CAS CANTU M.D. << Signature on File>> Reported By: CAS CANTU M.D. Signed By: CAS CANTU M.D.Tests performed at:[address] [phone] Normal [facility] 08-05-2018 BC No Growth Normal [facility] Comment on above: Performed By: #### L 100.0440 #### - MDZIZMAQNE[address] [place] [address] Performed By: #### M 105.0000 #### - [id number] [place] [address] BMPon 08-05-2018 Anion gap 3 molar conc 17.5 mmol/L Normal 15-22 [facility] Comment on above: Performed By: #### L 100.0010, L301.0120 ####ML - [id number] [place] [address] Calcium mass conc 8.7 mg/dL Low 8.8-10.2 [facility] Comment on above: Performed By: #### L 100.0010, L301.0120 ####ML - [facility] [place] [address] Chloride molar conc 101 mmol/L Normal 98-107 [facility] Comment on above: Performed By: #### L 100.0010, L301.0120 #### - [id number] [place] [address] Creatinine mass conc 0.53 mg/dL Normal 0.50-0.90 [facility] Comment on above: Performed By: #### L 100.0010, L301.0120 #### - HZSPTZOATD[address] [place] [address] eGFR if AFR MELISSA > 60 ml/min/1.73m2 Normal [facility] Comment on above: Result Comment: eGFR >= [...] By: #### L 100.0010, L301.0120 ####ML - VYRHQXJQYI824 [place] [address] eGFR nonAFR Melissa > 60 ml/Min/1.73m2 Normal [facility] Comment on above: Performed By: #### L 100.0010, L301.0120 ####ML - SJRCCAVZZC[address] [place] [address] Glucose mass conc 122 mg/dL High 82-115 [facility] Comment on above: Performed By: #### L 100.0010, L301.0120 ####ML - DGLIDRCJDA[address] [place] [address] Potassium molar conc 3.5 mmol/L Normal 3.5-5.0 [facility] Comment on above: Performed By: #### L 100.0010, L301.0120 ####ML - EMOVEOUIDT[address] [place] [address] Sodium molar conc 138 mmol/L Normal 135-145 [facility] Comment on above: Performed By: #### L 100.0010, L301.0120 ####ML - HBRBCAHHFP[address] [place] [address] TCO2 23 mmol/L Normal 22-29 [facility] Comment on above: Performed By: #### L 100.0010, L301.0120 ####ML - VBGBLNOKIM[address] [place] [address] Urea nitrogen mass conc 14 mg/dL Normal 8-23 [facility] Comment on above: Performed By: #### L 100.0010, L301.0120 ####ML - BPVQCPUCOX[address] [place] [address] CBCon 08-05-2018 Basophils Auto #/vol (Bld) 0.00 x10(3) Normal 0.00-0.10 [facility] Comment on above: Performed By: #### L 200.0010 ####ML - AVBCOMJKDA[address] [place] [address] Basophils/100 WBC Auto (Bld) 0.2 % Normal 0.0-1.0 [facility] Comment on above: Performed By: #### L 200.0010 ####[address] [address] Eosinophils Auto #/vol (Bld) 0.00 x10(3) Normal 0.00-0.54 [facility] Comment on above: Performed By: #### L 200.0010 ####ML [address] [address] Eosinophils/100 WBC Auto (Bld) 0.1 % Low 0.5-4.9 [facility] Comment on above: Performed By: #### L 200.0010 ####[address] [address] Erythrocyte distribution width Auto Ratio (RBC) 15.7 % Normal 12.5-15.7 [facility] Comment on above: Performed By: #### L 200.0010 ####[address] [address] Hematocrit Auto Volume Fraction (Bld) 39.4 % Normal 36.0-48.0 [facility] Comment on above: Performed By: #### L 200.0010 ####[address] [address] Hemoglobin mass conc (Bld) 13.8 g/dL Normal 12.0-16.0 [facility] Comment on above: Performed By: #### L 200.0010 ####ML [address] [address] Lymphocytes Auto #/vol (Bld) 0.50 x10(3) Low 1.00-3.50 [facility] Comment on above: Performed By: #### L 200.0010 ####[address] [address] Lymphocytes/100 WBC Auto (Bld) 7.8 % Low 16.0-48.0 [facility] Comment on above: Performed By: #### L 200.0010 ####ML [address] [place] [address] MCH Auto Entitic mass (RBC) 27.6 pg Low 28.5-32.9 [facility] Comment on above: Performed By: #### L 200.0010 ####ML [address] [address] MCHC Auto mass conc (RBC) 35.1 g/dL Normal 33.0-36.0 [facility] Comment on above: Performed By: #### L 200.0010 ####ML [address] [address] MCV Auto Entitic volume (RBC) 78.7 fL Low 80.0-99.0 [facility] Comment on above: Performed By: #### L 200.0010 ####ML [address] [address] Monocytes Auto #/vol (Bld) 0.40 x10(3) Normal 0.30-0.80 [facility] Comment on above: Performed By: #### L 200.0010 ####ML [address] [address] Monocytes/100 WBC Auto (Bld) 5.4 % Normal 4.3-11.2 [facility] Comment on above: Performed By: #### L 200.0010 ####ML - [address] [address] Neutrophils Auto #/vol (Bld) 5.70 x10(3) Normal 1.40-6.50 [facility] Comment on above: Performed By: #### L 200.0010 ####ML [address] [address] Neutrophils/100 WBC Auto (Bld) 86.5 % High 45.0-73.0 [facility] Comment on above: Performed By: #### L 200.0010 ####ML [address] [address] Platelet mean volume Auto Entitic volume (Bld) 8.1 fL Normal 7.5-9.5 [facility] Comment on above: Performed By: #### L 200.0010 ####[facility] [address] [place] [address] Platelets Auto #/vol (Bld) 115 X10(3) Low 150-450 [facility] Comment on above: Performed By: #### L 200.0010 ####[address] [address] RBC Auto #/vol (Bld) 5.00 x10(6) Normal 3.30-5.00 [facility] Comment on above: Performed By: #### L 200.0010 ####ML - LUAGZTXVMP[address] [place] [address] WBC Auto #/vol (Bld) 6.6 x10(3) Normal 4.5-10.0 [facility] Comment on above: Performed By: #### L 200.0010 ####[facility] [place] [place] [address] [place] [address] CHEST (TWO VIEWS) - CXRon CHEST (TWO VIEWS) - CXR [address] [address]Uaag: BERENICE NOLASCO KPhys: GRUPO BROUSSARD COMPENSATION AND BENEFITS ADVISOR-C (ED): [birth year] Age: 68 Sex: FAcct: [id number] Loc: EDExam Date: 08/05/18 Status: REG ERRadiology No.: [id number] Number: [id number] # Type/[id number] RAD / CHEST (TWO VIEWS) - CXRTwo-view chestClinical statement: Weakness. History of right mastectomyComparison study: NoneFindings:The heart size is normal. The left diaphragm is elevated. There is nopulmonary consolidation. No pneumothorax. Multilevel degenerative changes seenin the spine. Surgical clips identified in the right axilla.Impression:Elevated left diaphragm. No focal consolidationProfessional interpretation provided by [facility].Thank you for this referral.< >Reported By: XANDER MARTINEZ M.D.Signed In NovaPro By: XANDER MARTINEZ M.D. << Signature on File>> Reported By: XANDER MARTINEZ M.D. Signed By: XANDER MARTINEZ M.D.Tests performed at:[address] [phone] Normal [facility] CT BRAIN WITHOUT CONTRAST- C TBon 08-05-2018 CT BRAIN WITHOUT CONTRAST- CTB [address] [address]Esfl: BERENICE NOLASCO KPhys: GRUPO BROUSSARD COMPENSATION AND BENEFITS ADVISOR-C (ED): [birth year] Age: 68 Sex: FAcct: [id number] Loc: EDExam Date: 08/05/18 Status: REG ERRadiology No.: [id number] Number: [id number] # Type/[id number] CT / CT BRAIN WITHOUT CONTRAST- CTBCT [...] algorithm.Professional interpretation provided by [facility]60.Thank you for this referral.< >Reported By: XANDER MARTINEZ M.D.Signed In NovaPro By: XANDER MARTINEZ M.D. << Signature on File>> Reported By: XANDER MARTINEZ M.D. Signed By: XANDER MARTINEZ M.D.Tests performed at:[address] [phone] Normal [facility] ED PROV NOTEon 08-05-2018 Protein mass conc HNO ID: [id number] thor: Cas Jason LehmanService: (none)Author Type: PhysicianType: ED Provider NotesFiled: 08/13/2018 10:42 AMNote Text:[facility] [place] [address]ZWSVJO INFORMATION MANAGEMENTEMERGENCY DEPARTMENT REPORTPatient: BERENICE NOLASCO JOEL A M.D.[id number] 68 FStatus: [facility] EDDate of Service: 08/05/18CHIEF COMPLAINTHeadache.HISTORY OF [...] are downgoing. There is no pronator drift. Ljpdhiiuztcz-lr-fgyw, uyia-af-pxce.EMERGENCY DEPARTMENT COURSESent for CT which was negative. Labs were all pretty much negative and noUTI.CLINICAL DIAGNOSISCephalgia.PLANDisc harged to home to follow up with the family doctor and return ifproblems of any kind. She is treated for what is presumed to be a sinusinfection as well with antibiotics. She can return if worse or problemsof any kind. 08/13/18 1027 MICHAELLE CANTU M.D.cc: CAS CANTU M.D. << Signature on File>> Reported By: CAS CANTU M.D. Signed By: CAS CANTU M.D.Tests performed at:[facility] [place], [place] [phone] Normal [facility] EMERGENCY DEPARTMENT REPORTo n 08-05-2018 EMERGENCY DEPARTMENT REPORT [place], [place] [address]DAQOWA INFORMATION MANAGEMENTEMERGENCY DEPARTMENT REPORTPatient: LEILABERENICE DIXON JOEL A M.D.[id number] FStatus: DEP ER EDDate of Service: [...] are downgoing. There is no pronatordrift. Normal rexlyk-ys-gzaj, bavc-nu-biis.EMERGENCY DEPARTMENT COURSESent for CT which was negative. Labs were all pretty much negative and no UTI.CLINICAL DIAGNOSISCephalgia.PLANDisc harged to home to follow up with the family doctor and return if problems of any kind.She is treated for what is presumed to be a sinus infection as well with antibiotics. Shecan return if worse or problems of any kind. 08/13/18 1027 MICHAELLE CANTU M.D.cc: CAS CANTU M.D. << Signature on File>> Reported By: CAS CANTU M.D. Signed By: CAS CANTU M.D.Tests performed at:[address] [phone] Normal [facility] FLU A & Bon 08-05-2018 FLU A Negative Normal NEGATIVE [facility] Comment on above: Order Comment: What is the source+ SWAB Performed By: #### L 400.0006 ####[address] [address] FLU B Negative Normal NEGATIVE [facility] Comment on above: Order Comment: What is the source+ SWAB Result Comment: Infe ction due to Flu A and Flu B can not be ruled out. Flu Aand/or Flu B antigen in the sample may be below detectionlimit of the test. The gold standard for Flu A and Flu B vicente viral culture. Performed By: #### L 400.0006 ####ML [address] [address] LACTIC ACIDon 08-05-2018 Lactate molar conc 0.8 mmol/L Normal 0.5-2.0 [facility] Comment on above: Performed By: #### L 100.0440 ####[address] [address] TROPONIN Ton 08-05-2018 Troponin T.cardiac mass conc ug/L Normal 0-0.010 [facility] Comment on above: Performed By: #### L 100.0010, L301.0120 ####[facility] [id number] [place] [address] UA W/C&Son 08-05-2018 Bilirubin Ql (U) Negative Normal NEGATIVE [facility] Comment on above: Order Comment: Urine Specimen Source+ CLEAN CATCH Performed By: #### L 200.3001 ####ML - [facility] [id number] [place] [address] Color Nom (U) YELLOW Normal YELLOW [facility] Comment on above: Order Comment: Urine Specimen Source+ CLEAN CATCH Performed By: #### L 200.3001 ####ML - [facility] [id number] [place] [address] Glucose Ql (U) Negative Normal NEGATIVE [facility] Comment on above: Order Comment: Urine Specimen Source+ CLEAN CATCH Performed By: #### L 200.3001 ####ML - [id number] [place] [address] Hemoglobin Test strip Ql (U) Negative Normal NEGATIVE [facility] Comment on above: Order Comment: Urine Specimen Source+ CLEAN CATCH Performed By: #### L 200.3001 ####ML - [id number] [place] [address] Leukocyte esterase Test strip Ql (U) Negative Normal NEGATIVE [facility] Comment on above: Order Comment: Urine Specimen Source+ CLEAN CATCH Performed By: #### L 200.3001 ####ML - [id number] [place] [address] Nitrite Test strip Ql (U) Negative Normal NEGATIVE [facility] Comment on above: Order Comment: Urine Specimen Source+ CLEAN CATCH Performed By: #### L 200.3001 ####ML - [facility] [id number] [place] [address] pH Test strip (U) 6.0 [pH] Normal 5.0-8.0 [facility] Comment on above: Order Comment: Urine Specimen Source+ CLEAN CATCH Performed By: #### L 200.3001 ####ML - [facility] [id number] [place] [address] Protein Test strip Ql (U) Negative Normal NEGATIVE [facility] Comment on above: Order Comment: Urine Specimen Source+ CLEAN CATCH Performed By: #### L 200.3001 ####ML - [facility] [id number] [place] [address] URINE APPEARANC CLEAR Normal CLEAR [facility] Comment on above: Order Comment: Urine Specimen Source+ CLEAN CATCH Performed By: #### L 200.3001 ####ML - [facility] [id number] [place] [address] URINE KETONE Negative Normal NEGATIVE [facility] Comment on above: Order Comment: Urine Specimen Source+ CLEAN CATCH Performed By: #### L 200.3001 ####ML - [facility] [id number] [place] [address] URINE SPECIFIC <=1.005 Normal 1.001-1.035 [facility] Comment on above: Order Comment: Urine Specimen Source+ CLEAN CATCH Performed By: #### L 200.3001 ####ML - [facility] [id number] [place] [address] URINE UROBILINO 0.2 EU/DL Normal 0.2-1.0 [facility] Comment on above: Order Comment: Urine Specimen Source+ CLEAN CATCH Performed By: #### L 200.3001 ####ML - [facility] [id number] [place] [address] Coding Summary.on 07-28-2017 Coding Summary. CODING DATE: 017 [facility] STATUS: PAYOR: Medicare ADMIT DX: REASON [...] Viv Good Date Saved: 07/28/2017 10:55 am [facility] Social History Date Type Detail Facility Start: 10-24-2020 End: 08-18-2023 Sex Assigned At [facility] Start: 10-24-2020 End: 08-18-2023 History of Social function [facility] Start: 05-05-2023 End: 12-30-2023 Tobacco smoking status NHIS Unknown if ever smoked [facility] Start: 06-29-2022 End: 07-09-2022 Exposure to SARS-CoV-2 (event) Not sure [facility] Start: 06-16-2022 End: 08-18-2023 Alcohol intake Current drinker of alcohol (finding) [facility] Start: 06-16-2022 History SDOH Alcohol Comment SELDOM [facility] Start: 05-20-2022 End: 01-06-2023 Tobacco smoking status NHIS Never smoked tobacco [facility] Start: 05-20-2022 End: 01-06-2023 Tobacco use and exposure Smokeless tobacco non-user [facility] Start: 05-20-2022 Alcohol intake Ex-drinker (finding) [facility] Start: 1950 Sex Assigned At Not on file A [facility] Start: 1950 Sex Assigned At Female [facility] Adolescent depressio n screening assessment 1 [facility] NEGATED: Highlighted row [facility] Vital Signs Date Time Vital Sign Value Performing Clinician Facility 01-31-2024 13:17-0400 Body height 167.64 cm [facility] 01-31-2024 13:17-0400 Body mass index (BMI) [Ratio] 32.3 kg/m2 [facility] 01-31-2024 13:17-0400 Body weight 90.77 kg [facility] 01-31-2024 13:17-0400 Diastolic blood pressure 77 mm[Hg] [facility] 01-31-2024 13:17-0400 Heart rate 75 /min [facility] 01-31-2024 13:17-0400 Respiratory rate 16 /min [facility] 01-31-2024 13:17-0400 SaO2% (BldA) [Mass fraction] 92 % [facility] 01-31-2024 13:17-0400 Systolic blood pressure 115 mm[Hg] [facility] 01-21-2024 14:06-0400 Body temperature 96.9 [degF] Dr. Shaikh Villagran Work Phone: [facility] 01-21-2024 14:06-0400 Diastolic blood pressure 79 mm[Hg] Dr. Shaikh Villagran Work Phone: [facility] 01-21-2024 14:06-0400 Heart rate 82 /min Dr. Shaikh Villagran Work Phone: [facility] 01-21-2024 14:06-0400 Respiratory rate 16 /min Dr. Shaikh Villagran Work Phone: [facility] 01-21-2024 14:06-0400 SaO2% (BldA) [Mass fraction] 94 % Dr. Shaikh Villagran Work Phone: [facility] 01-21-2024 14:06-0400 Systolic blood pressure 125 mm[Hg] Dr. Shaikh Villagran Work Phone: [facility] 01-21-2024 11:45-0400 Inhaled oxygen flow rate 2 L/min Dr. Shaikh Villagran Work Phone: [facility] 01-21-2024 06:23-0400 Body height 167.[address] Shaikh Villagran Work Phone: [facility] 01-21-2024 06:23-0400 Body mass index (BMI) [Ratio] 32.5 kg/m2 Dr. Shaikh Villagran Work Phone: [facility] 01-21-2024 06:23-0400 Body weight 91.[address] Shaikh Villagran Work Phone: [facility] 01-05-2024 14:51-0400 Body height 167.[address] Shaikh Villagran Work Phone: [facility] 01-05-2024 14:51-0400 Body mass index (BMI) [Ratio] 31.8 kg/m2 Dr. Shaikh Villagran Work Phone: [facility] 01-05-2024 14:51-0400 Body temperature 98.1 [degF] Dr. Shaikh Villagran Work Phone: [facility] 01-05-2024 14:51-0400 Body weight 89.[address] Shaikh Villagran Work Phone: [facility] 01-05-2024 14:51-0400 Diastolic blood pressure 84 mm[Hg] Dr. Shaikh Villagran Work Phone: [facility] 01-05-2024 14:51-0400 Heart rate 71 /min Dr. Shaikh Villagran Work Phone: [facility] 01-05-2024 14:51-0400 Respiratory rate 16 /min Dr. Shaikh Villagran Work Phone: [facility] 01-05-2024 14:51-0400 SaO2% (BldA) [Mass fraction] 93 % Dr. Shaikh Villagran Work Phone: [facility] 01-05-2024 14:51-0400 Systolic blood pressure 124 mm[Hg] Dr. Shaikh Villagran Work Phone: [facility] 12-22-2023 14:33-0400 Body height 167.[address] Apolinar Henry Work Phone: [facility] 12-22-2023 14:33-0400 Body mass index (BMI) [Ratio] 32.6 kg/m2 Dr. Apolinar Henry Work Phone: [facility] 12-22-2023 14:33-0400 Body temperature 98.8 [degF] Dr. Apolinar Henry Work Phone: [facility] 12-22-2023 14:33-0400 Body weight 91.[address] Apolinar Henry Work Phone: [facility] 12-22-2023 14:33-0400 Diastolic blood pressure 76 mm[Hg] Dr. Apolinar Henry Work Phone: [facility] 12-22-2023 14:33-0400 Heart rate 71 /min Dr. Apolinar Henry Work Phone: [facility] 12-22-2023 14:33-0400 Respiratory rate 16 /min Dr. Apolinar Henry Work Phone: [facility] 12-22-2023 14:33-0400 SaO2% (BldA) [Mass fraction] 92 % Dr. Apolinar Henry Work Phone: [facility] 12-22-2023 14:33-0400 Systolic blood pressure 129 mm[Hg] Dr. Apolinar Henry Work Phone: [facility] 12-14-2023 15:53-0400 Body height 167.[address] Apolinar Henry Work Phone: [facility] 12-14-2023 15:53-0400 Body mass index (BMI) [Ratio] 32.3 kg/m2 Dr. Apolinar Henry Work Phone: [facility] 12-14-2023 15:53-0400 Body temperature 97.9 [degF] Dr. Apolinar Henry Work Phone: [facility] 12-14-2023 15:53-0400 Body weight 90.[address] Apolinar Henry Work Phone: [facility] 12-14-2023 15:53-0400 Diastolic blood pressure 83 mm[Hg] Dr. Apolinar Henry Work Phone: [facility] 12-14-2023 15:53-0400 Heart rate 70 /min Dr. Apolinar Henry Work Phone: [facility] 12-14-2023 15:53-0400 Respiratory rate 16 /min Dr. Apolinar Henry Work Phone: [facility] 12-14-2023 15:53-0400 SaO2% (BldA) [Mass fraction] 95 % Dr. Apolinar Henry Work Phone: [facility] 12-14-2023 15:53-0400 Systolic blood pressure 128 mm[Hg] Dr. Apolinar Henry Work Phone: [facility] 12-09-2023 15:16-0400 Body height 167.64 cm [facility] 12-09-2023 15:16-0400 Body mass index (BMI) [Ratio] 32.4 kg/m2 [facility] 12-09-2023 15:16-0400 Body weight 91.18 kg [facility] 11-01-2023 12:53-0500 Body height 167.64 cm MD Shaikh Villagran Work Phone: [facility] 11-01-2023 12:53-0500 Body mass index (BMI) [Ratio] 32.9 kg/m2 MD Shaikh Villagran Work Phone: [facility] 11-01-2023 12:53-0500 Body weight 92.58 kg MD Shaikh Villagran Work Phone: [facility] 11-01-2023 12:53-0500 Diastolic blood pressure 86 mm[Hg] MD Shaikh Villagran Work Phone: [facility] 11-01-2023 12:53-0500 Heart rate 71 /min MD Shaikh Villagran Work Phone: [facility] 11-01-2023 12:53-0500 Respiratory rate 18 /min MD Shaikh Villagran Work Phone: [facility] 11-01-2023 12:53-0500 SaO2% (BldA) [Mass fraction] 95 % MD Shaikh Villagran Work Phone: [facility] 11-01-2023 12:53-0500 Systolic blood pressure 127 mm[Hg] MD Shaikh Villagran Work Phone: [facility] 08-30-2023 10:00-0500 Body height 167.64 cm MD Shaikh Villagran Work Phone: [facility] 08-30-2023 10:00-0500 Body weight 91.98 kg MD Shaikh Villagran Work Phone: [facility] 08-30-2023 10:00-0500 Diastolic blood pressure 87 mm[Hg] MD Shaikh Villagran Work Phone: [facility] 08-30-2023 10:00-0500 Systolic blood pressure 134 mm[Hg] MD Shaikh Villagran Work Phone: [facility] 07-21-2023 13:00-0500 Body height 167.64 cm Adriana Fitt Other [employer] Other 07-21-2023 13:00-0500 Body mass index (BMI) [Ratio] 33.52 kg/m2 Adriana Fitt Other [employer] Other 07-21-2023 13:00-0500 Body weight 94.21 kg Adriana Fitt Other [employer] Other 07-05-2023 14:15-0400 Body height 167.64 cm Susanne Missler Other [employer] Other 07-05-2023 14:15-0400 Body mass index (BMI) [Ratio] 33.62 kg/m2 Susanne Missler Other [employer] Other 07-05-2023 14:15-0400 Body weight 94.48 kg Susanne Missler Other [employer] Other 07-05-2023 14:15-0400 Diastolic blood pressure 87 mm[Hg] Susanne Missler Other [employer] Other 07-05-2023 14:15-0400 Respiratory rate 18 /min Susanne Jordan Other [employer] Other 07-05-2023 14:15-0400 SaO2% (BldA) [Mass fraction] 93 % Susanne Jordan Other [employer] Other 07-05-2023 14:15-0400 Systolic blood pressure 133 mm[Hg] Susanne Jordan Other [employer] Other 06-30-2023 15:08-0400 Body height 167.[address] Apolinar Henry Work Phone: [facility] 06-30-2023 15:08-0400 Body mass index (BMI) [Ratio] 33.5 kg/m2 Dr. Apolinar Henry Work Phone: [facility] 06-30-2023 15:08-0400 Body temperature 97.3 [degF] Dr. Apolinar Henry Work Phone: [facility] 06-30-2023 15:08-0400 Body weight 94.[address] Apolinar Henry Work Phone: [facility] 06-30-2023 15:08-0400 Diastolic blood pressure 81 mm[Hg] Dr. Apolinar Henry Work Phone: [facility] 06-30-2023 15:08-0400 Heart rate 65 /min Dr. Apolinar Henry Work Phone: [facility] 06-30-2023 15:08-0400 Respiratory rate 16 /min Dr. Apolinar Henry Work Phone: [facility] 06-30-2023 15:08-0400 SaO2% (BldA) [Mass fraction] 94 % Dr. Apolinar Henry Work Phone: [facility] 06-30-2023 15:08-0400 Systolic blood pressure 135 mm[Hg] Dr. Apolinar Henry Work Phone: [facility] 05-27-2023 10:00-0400 Body height 167.64 cm Adriana Fitt Other [employer] Other 05-27-2023 10:00-0400 Body mass index (BMI) [Ratio] 34.65 kg/m2 Adriana Fitt Other [employer] Other 05-27-2023 10:00-0400 Body weight 97.39 kg Adriana Fitt Other [employer] Other 05-05-2023 14:25-0400 Body height 167.[address] Apolinar Henry Work Phone: [facility] 05-05-2023 14:25-0400 Body mass index (BMI) [Ratio] 35 kg/m2 Dr. Apolinar Henry Work Phone: [facility] 05-05-2023 14:25-0400 Body temperature 97.7 [degF] Dr. Apolinar Henry Work Phone: [facility] 05-05-2023 14:25-0400 Body weight 98.[address] Apolinar Henry Work Phone: [facility] 05-05-2023 14:25-0400 Diastolic blood pressure 78 mm[Hg] Dr. Apolinar Henry Work Phone: [facility] 05-05-2023 14:25-0400 Heart rate 70 /min Dr. Apolinar Henry Work Phone: [facility] 05-05-2023 14:25-0400 Respiratory rate 16 /min Dr. Apolinar Henry Work Phone: [facility] 05-05-2023 14:25-0400 SaO2% (BldA) [Mass fraction] 96 % Dr. Apolinar Henry Work Phone: [facility] 05-05-2023 14:25-0400 Systolic blood pressure 120 mm[Hg] Dr. Apolinar Henry Work Phone: [facility] 03-15-2023 12:45-0400 Body height 167.64 cm Susanne Missler Other [employer] Other 03-15-2023 12:45-0400 Body mass index (BMI) [Ratio] 36.42 kg/m2 Susanne Missler Other [employer] Other 03-15-2023 12:45-0400 Body weight 102.38 kg Susanne Missler Other [employer] Other 03-15-2023 12:45-0400 Diastolic blood pressure 84 mm[Hg] Susanne Missler Other [employer] Other 03-15-2023 12:45-0400 Respiratory rate 18 /min Susanne Missler Other [employer] Other 03-15-2023 12:45-0400 SaO2% (BldA) [Mass fraction] 96 % Susanne Missler Other [employer] Other 03-15-2023 12:45-0400 Systolic blood pressure 131 mm[Hg] Susanne Missler Other [employer] Other 11-18-2022 14:58-0500 Body height 167.6 cm Apolinar Henry MD Work Phone: [employer] 11-18-2022 14:58-0500 Body temperature 97 [degF] Apolinar Henry MD Work Phone: 4(091)379-605410 [place] [address] 11-18-2022 14:58-0500 Diastolic blood pressure 83 mm[Hg] Apolinar Henry MD Work Phone: 1(750)339-725210 [place] [address] 11-18-2022 14:58-0500 Heart rate 78 /min Apolinar Henry MD Work Phone: 6(728)253-994210 [place] [address] 11-18-2022 14:58-0500 Systolic blood pressure 143 mm[Hg] Apolinar Henry MD Work Phone: 9(952)335-099210 [place] [address] 10-21-2022 13:46-0500 Body height 167.6 cm Apolinar Henry MD Work Phone: 8(925)858-355110 [place] [address] 10-21-2022 13:46-0500 Body temperature 97.3 [degF] Apolinar Henry MD Work Phone: 6(218)859-912010 [place] [address] 10-21-2022 13:46-0500 Diastolic blood pressure 86 mm[Hg] Apolinar Henry MD Work Phone: 9(616)931-976710 [place] [address] 10-21-2022 13:46-0500 Heart rate 76 /min Apolinar Henry MD Work Phone: 3(022)461-187310 [place] [address] 10-21-2022 13:46-0500 Systolic blood pressure 142 mm[Hg] Apolinar Henry MD Work Phone: 3(919)933-924610 [place] [address] 10-07-2022 14:27-0500 Body height 167.6 cm Apolinar Henry MD Work Phone: 1(651)724-395110 [place] [address] 10-07-2022 14:27-0500 Body temperature 97.9 [degF] Apolinar Henry MD Work Phone: 8(374)670-763710 [place] [address] 10-07-2022 14:27-0500 Diastolic blood pressure 81 mm[Hg] Apolinar Henry MD Work Phone: 9(342)043-423110 [place] [address] 10-07-2022 14:27-0500 Heart rate 74 /min Apolinar Henry MD Work Phone: 8(674)074-613910 [place] [address] 10-07-2022 14:27-0500 Systolic blood pressure 140 mm[Hg] Apolinar Henry MD Work Phone: 3(611)805-020910 [place] [address] 09-23-2022 14:36-0500 Body height 167.6 cm Apolinar Henry MD Work Phone: 0(014)401-439710 [place] [address] 09-23-2022 14:36-0500 Body mass index (BMI) [Ratio] 35.83 kg/m2 Apolinar Henry MD Work Phone: 7(702)258-581710 [place] [address] 09-23-2022 14:36-0500 Body temperature 97.3 [degF] Apolinar Herny MD Work Phone: 5(080)331-115910 [place] [address] 09-23-2022 14:36-0500 Body weight 100.7 kg Apolinar Henry MD Work Phone: 8(395)963-225810 [place] [address] 09-23-2022 14:36-0500 Diastolic blood pressure 97 mm[Hg] Apolinar Henry MD Work Phone: 3(276)291-131010 [place] [address] 09-23-2022 14:36-0500 Heart rate 82 /min Apolinar Henry MD Work Phone: 1(169)900-318410 [place] [address] 09-23-2022 14:36-0500 Systolic blood pressure 152 mm[Hg] Apolinar Henry MD Work Phone: 6(688)544-561310 [place] [address] 08-12-2022 15:03-0500 Body height 167.6 cm Apolinar Henry MD Work Phone: 8(664)013-695410 [place] [address] 08-12-2022 15:03-0500 Body mass index (BMI) [Ratio] 35.83 kg/m2 Apolinar Henry MD Work Phone: 8(643)957-371710 [place] [address] 08-12-2022 15:03-0500 Body temperature 96.69 [degF] Apolinar Henry MD Work Phone: 0(112)296-019210 [place] [address] 08-12-2022 15:03-0500 Body weight 100.7 kg Apolinar Henry MD Work Phone: 3(402)322-722110 [place] [address] 08-05-2022 14:20-0500 Body height 167.6 cm Apolinar Henry MD Work Phone: 0(045)268-385810 [place] [address] 08-05-2022 14:20-0500 Body mass index (BMI) [Ratio] 35.83 kg/m2 Apolinar Henry MD Work Phone: 1(591)194-765410 [place] [address] 08-05-2022 14:20-0500 Body temperature 97.2 [degF] Apolinar Henry MD Work Phone: 6(432)421-364410 [place] [address] 08-05-2022 14:20-0500 Body weight 100.7 kg Apolinar Henry MD Work Phone: 0(211)656-930210 [place] [address] 08-05-2022 14:20-0500 Diastolic blood pressure 90 mm[Hg] Apolinar Henry MD Work Phone: 6(447)192-579710 [place] [address] 08-05-2022 14:20-0500 Heart rate 75 /min Apolinar Henry MD Work Phone: 9(881)282-207510 [place] [address] 08-05-2022 14:20-0500 Systolic blood pressure 156 mm[Hg] Apolinar Henry MD Work Phone: 2(573)943-780410 [place] [address] 07-22-2022 13:23-0500 Body height 167.6 cm Apolinar Henry MD Work Phone: 7(914)840-253510 [place] [address] 07-22-2022 13:23-0500 Body mass index (BMI) [Ratio] 35.83 kg/m2 Apolinar Henry MD Work Phone: 5(303)852-384710 [place] [address] 07-22-2022 13:23-0500 Body temperature 97.81 [degF] Apolinar Henry MD Work Phone: 8(588)988-919610 [place] [address] 07-22-2022 13:23-0500 Body weight 100.7 kg Apolinar Henry MD Work Phone: 9(699)280-100210 [place] [address] 07-22-2022 13:23-0500 Diastolic blood pressure 80 mm[Hg] Apolinar Henry MD Work Phone: 7(521)099-488910 [place] [address] 07-22-2022 13:23-0500 Heart rate 69 /min Apolinar Henry MD Work Phone: 6(426)354-271310 [place] [address] 07-22-2022 13:23-0500 Systolic blood pressure 133 mm[Hg] Apolinar Henry MD Work Phone: 9(363)115-267210 [place] [address] 07-15-2022 13:33-0400 Body height 167.6 cm Apolinar Henry MD Work Phone: 1(120)025-012910 [place] [address] 07-15-2022 13:33-0400 Body mass index (BMI) [Ratio] 35.83 kg/m2 Apolinar Henry MD Work Phone: 1(670)291-490510 [place] [address] 07-15-2022 13:33-0400 Body temperature 97.9 [degF] Apolinar Henry MD Work Phone: 3(845)997-426110 [place] [address] 07-15-2022 13:33-0400 Body weight 100.7 kg Apolinar Henry MD Work Phone: 8(109)116-564410 [place] [address] 07-15-2022 13:33-0400 Diastolic blood pressure 83 mm[Hg] Apolinar Henry MD Work Phone: 3(462)786-322910 [place] [address] 07-15-2022 13:33-0400 Heart rate 75 /min Apolinar Henry MD Work Phone: 6(083)342-321210 [place] [address] 07-15-2022 13:33-0400 Systolic blood pressure 140 mm[Hg] Apolinar Henry MD Work Phone: 3(700)093-257610 [place] [address] 07-09-2022 16:55-0400 Diastolic blood pressure 79 mm[Hg] Apolinar Henry MD Work Phone: 7(061)904-743810 [place] [address] 07-09-2022 16:55-0400 Heart rate 87 /min Apolinar Henry MD Work Phone: 1(204)015-512210 [place] [address] 07-09-2022 16:55-0400 Respiratory rate 18 /min Apolinar Henry MD Work Phone: 7(807)600-501410 [place] [address] 07-09-2022 16:55-0400 SaO2% (BldA) [Mass fraction] 97 % Apolinar Henry MD Work Phone: 8(782)903-008010 [place] [address] 07-09-2022 16:55-0400 Systolic blood pressure 149 mm[Hg] Apolinar Henry MD Work Phone: 1(350)315-383310 [place] [address] 07-09-2022 15:05-0400 Body temperature 97.3 [degF] Apolinar Henry MD Work Phone: 0(995)525-798310 [place] [address] 07-09-2022 08:58-0400 Body height 167.6 cm Apolinar Henry MD Work Phone: 2(724)156-772410 [place] [address] 07-09-2022 08:58-0400 Body mass index (BMI) [Ratio] 35.83 kg/m2 Apolinar Henry MD Work Phone: 2(332)082-365210 [place] [address] 07-09-2022 08:58-0400 Body weight 100.7 kg Apolinar Henry MD Work Phone: 4(442)661-541810 [place] [address] 06-30-2022 14:44-0400 Body height 167.6 cm Apolinar Henry MD Work Phone: 2(453)016-760510 [place] [address] 06-30-2022 14:44-0400 Body mass index (BMI) [Ratio] 35.83 kg/m2 Apolinar Henry MD Work Phone: 4(550)377-766110 [place] [address] 06-30-2022 14:44-0400 Body temperature 97.7 [degF] Apolinar Henry MD Work Phone: 2(473)034-378610 [place] [address] 06-30-2022 14:44-0400 Body weight 100.7 kg Apolinar Henry MD Work Phone: 0(494)283-037051 [place] [address] 06-30-2022 14:44-0400 Diastolic blood pressure 97 mm[Hg] Apolinar Henry MD Work Phone: 6(118)220-983910 [place] [address] 06-30-2022 14:44-0400 Heart rate 119 /min Apolinar Henry MD Work Phone: 6(232)365-938010 [place] [address] 06-30-2022 14:44-0400 Systolic blood pressure 148 mm[Hg] Apolinar Henry MD Work Phone: 0(739)743-360910 [place] [address] 06-16-2022 11:36-0400 Body height 167.6 cm Apolinar Henry MD Work Phone: 4(099)921-294210 [place] [address] 06-16-2022 11:36-0400 Body mass index (BMI) [Ratio] 35.99 kg/m2 Apolinar Henry MD Work Phone: 5(263)728-367310 [place] [address] 06-16-2022 11:36-0400 Body temperature 97.5 [degF] Apolinar Henry MD Work Phone: 9(193)342-560410 [place] [address] 06-16-2022 11:36-0400 Body weight 101.15 kg Apolinar Henry MD Work Phone: 4(467)736-795110 [place] [address] 06-16-2022 11:36-0400 Diastolic blood pressure 89 mm[Hg] Apolinar Henry MD Work Phone: 5(170)201-800410 [place] [address] 06-16-2022 11:36-0400 Heart rate 76 /min Apolinar Henry MD Work Phone: 9(677)453-638710 [place] [address] 06-16-2022 11:36-0400 Systolic blood pressure 148 mm[Hg] Apolinar Henry MD Work Phone: 5(297)566-104710 [place] [address] 05-20-2022 13:46-0400 Body temperature 98.01 [degF] Apolinar Henry MD Work Phone: 3(293)533-033610 [place] [address] 09-07-2022 13:46-0400 Body weight 100.7 kg Apolinar Henry MD Work Phone: [facility] 05-20-2022 13:46-0400 Diastolic blood pressure 95 mm[Hg] Apolinar Henry MD Work Phone: [facility] 05-20-2022 13:46-0400 Heart rate 80 /min Apolinar Henry MD Work Phone: [facility] 05-20-2022 13:46-0400 Systolic blood pressure 150 mm[Hg] Apolinar Henry MD Work Phone: [facility] Functional Status Date Assessment Result Facility 01-21-2024 Functional status Activity Abili ty With Assist of 1 [facility] Work Phone: Mental Status Date Assessment Result Facility 01-21-2024 Cognitive function Voice/Name [facility] Work Phone: Clinical Notes 01-13-2022 to 01-21-2024 Note Date & Type Note Facility 01-21-2024 Discharge summary Note Date/Time January 21, 2024 10:39am [facility] Medical Records Department [address] [place] [address] Instructions for Home/Discharge Instructions 01/21/24 1037 MR#: [id number] Acct: [id number] Name: BERENICE NOLASCO Rep #:[id number] : 1950 73 From: Apolinar Henry MD PCP: Shaikh Villagran Status:[facility] Discharge Instructions Dressing / Incision Additional Dressing/Incision [...] Henry MD CC: Shaikh Tyshawn ~ Signed [facility] Work Phone: 1(745) 948-857805-10-[address] [facility] 01-21-2024 History and physical note Author Apolinar Henry [facility] January 21, 2024 7:25am Note Date/Time January 21, 2024 7:25a m [facility] Medical Records Department [address] [place] [address] History & Physical Exam 01/21/24 07 MR#: [id number] Acct: [id number] Name: BERENICE NOLASCO Rep #:[id number] : 1950 73 From: Apolinar Henry MD PCP: Shaikh Villagran Status:[facility] Location: [address] History and Physical Date of Admission: 01/21/24 The patient is examined and there are no changes from the H&P dated 01/06/24. She presents for left breast reduction for symmetry following reconstruction on her right breast. Also right breast coating supervisor port removal. Informed consent was obtained. Assessment & Plan Assessment/Plan (1) S/P breast reconstruction, right: (2) History of cancer of right breast: (3) Breast hypertrophy: (4) Breast asymmetry between kar[place] breast and reconstructed breast: PLAN: Plan For left breast reduction and right coating supervisor port removal. 01/21/24724 <Electronically signed by Apolinar Henry MD> Cosigner Signature (if applicable): CC: Dr. Apolinar Henry MD; Shaikh Tyshawn~ Signed [facility] Work Phone: 1(211) 405-341105-10-2024 [facility] Medical Records Department [address] [place] [address] History Physical Exam 01/21/24721 MR#: [id number] Acct: [id number] Name: BERENICE NOLASCO Rep #: [id number] : 1950 73 From: Apolianr Henry MD PCP: Shaikh Villagran Status:[facility] Location: [place] [address]- History and Physical Date of Admission: 01/21/24 The patient is examined and there are no changes from the H P dated 01/06/24. She presents for left breast reduction for symmetry following reconstruction on her right breast. Also right breast coating supervisor port removal. Informed consent was obtained. Assessment Plan Assessment/Plan (1) S/P breast reconstruction, right: (2) History of cancer of right breast: (3) Breast hypertrophy: (4) Breast asymmetry between karuk breast and reconstructed breast: PLAN: Plan For left breast reduction and right coating supervisor port removal. 01/21/24 0725 Cosigner Signature (if applicable): CC: Dr. Apolinar Henry MD; Shaikh Tyshawn [facility] Progress note Author Apolinar Henry [facility] December 14, 2023 4:43pm Note Date/Time December 14, 2023 3:58 pm [facility] [address], [address] [place] [address] OFFICE VISIT Date of Service: 12/14/23 MR#: [id number] Acct: [id number] Name: BERENICE NOLASCO Rep #: [id number] : 1950 Provider: Dr. Dolly Henry MD Age/Sex: 73/F Location[place] [facility] Status: Signed Intake Vital Signs 06/30/23 [...] mg PO HS 05/05/23 [History Confirmed 12/14/23] bhhrstvw-koa-ediun acid 0.4 mg-lycopene 300 mcg-lutein 250 mcg [...] future surgery Left breast reduction, removal right coating supervisor pot. [facility] Medical History (Updated 05/05/23 @ 15:33 by [...] Exam Details The patient's right breast tissue coating supervisor is in good position and the port [...] remove the port on the right tissue coating supervisor whichhas the capability of functioning as a [...] karuk breast and reconstructed breast N65.1 Assessment and Plan (No Qualifiers) Assessment and Plan (1) History of cancer of right breast: Status: Acute (2) Breast hypertrophy: Status: Acute (3) Breast asymmetry between kar[place] breast and reconstructed breast: Status: Acute Plan Details Additional Comments: We will obtain preauthorization for the proposed procedure of left breast reduction for symmetry and removal of the coating supervisor port right breast 12/14/23 4752 <Electronically signed by Apolinar gar MD> Date _ Apolinar Henry MD Cosigner Signature: Date (if applicable) CC: ~ [facility] Work Phone: 1(121) 101-505403-14-2024 Miscellaneous Notes* Telephone Encounter - Chelsea Acevedo - 11/25/2023 3:52 PM EDT Patient called in asking to discuss results of EEG and MRI that were completed on 11/18/23. Patientis also asking is results could be forwarded to her PCP's office. Fax number [phone] * Telephone Encounter - Suzanna Cuadra RN [...] Villagran at provided #. documented in this encounterMadison Health03-14-2024 Telephone encounter Note* Telephone Encounter - Chelsea Acevedo - 11/25/2023 3:52 PM EDT Patient called in asking to discuss results of EEG and MRI that were completed on 11/18/23. Patientis also asking is results could be forwarded to her PCP's office. Fax number [phone] [facility] Qello [id number] Telephone encounter Note* Telephone Encounter - Suzanna Cuadra RN - 11/25/2023 3:52 PM EDT Please review and advise on next steps. [facility] [id number] Telephone encounter Note* Telephone Encounter - Ramakrishna López MD - 11/25/2023 3:52 PM EDT MRI shows non specific ischemic changes EEG is normal [facility] Work Phone: [phone] Telephone encounter Note* Telephone Encounter - Suzanna Cuadra RN - 11/25/2023 3:52 PM EDT Patient informed of results and voiced understanding. Results faxed as requested to Dr. Villagran at provided #. [facility] [place] [id number] NoteChief Complaint Chief Complaint Patient presents for [...] breast cancer History of colonoscopy with polypectomy HI (myocardial infarction) (2013) Morbid obesity with body [...] Health Maintenance Colonoscopy 04/20/2019 (more content not included)...[facility] HospitalComment on above:Order Comment: no [id number] Evaluation note* Encounter Date Diagnosis Assessment Notes [...] met, continue -increase protein foods- Not reviewed [facility] Other 10-23-2023 Evaluation note* Encounter Date [...] does anticipate getting reconnected with 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 H. Missler, INFORMATION WRITER Jun, Breast cancer (ICD-10 - C50.919) Breast [...] Encounter for weight management (ICD-10 - Z76.89) [facility] [employer] [facility] Other 09-20-2023 NoteBREAST IMAGING CONSULTATION: 06/01/2023 CLINICAL: Screening. Comparison is made to exams dated: 04/06/2022 mammogram and 03/13/2021 mammogram - [facility]. The tissue of left breast is heterogeneously [...] may not be detected on mammograms. The [employer] supports annual screening mammography starting at age 40. Carol Tran D.O. cw/penrad:06/02/2023 09:27:52 Director Of Housing(s): Beth Camacho RT(R)(M), [facility] letter sent: New Mammo Normal B1/2 Mammogram BI-RADS: 2 Benign Final Dictated by: Carol Tran DO Signed by: Carol Tran DO Signed (Electronic Signature): 06/02/2023 9:27 am (If Report Is Signed, Electronically Signed in Other Vendor System)[facility]09-[facility] NoteChief Complaint Patient presents for evaluation of left inguinal bulge. History of Present Illness 73 year old female, patient of Dr. Villagran ([place], [place]) Patient presents with a palpable bulge in the left groin area. This has been ongoing for a long time. Patient reports worsening pain. Specific triggers include: none. Notes constipation. States that bowels move approximately once a week. Reports that bulge is not reducible. An ultrasound was obtained 05/07/2023, at [facility]. She has history of myocardial infarction, that occurred in 2013during a surgery. Review of Systems Constitutional: No fevers, chills, sweats, weight loss or weight gain Respiratory: No shortness of breath, cough Cardiovascular: +CAD, h/o HI Gastrointestinal: +See HPI Liver: No jaundice, hepatitis [...] hyperplastic & tubular adenomas (04/2019) COVID-19 (09/2021) HI (myocardial infarction) (2013) Morbid obesity with body [...] signed by Emely Zendejas PA-C 06/02/2023 09:41 [facility] 05-27-2023 Evaluation note* Encounter Date Diagnosis Assessment Notes Treatment Notes Treatment Clinical Notes May, Obesity (ICD-10 - E66.9) 14 May, 2023 BMI 34.0-34.9,adult (ICD-10 - Z68.34) 14 May, 2023 Other Summary of Visi t: (A) reviewed [...] to 30 g/day -NEW: increase protein foods [facility] Other 09-07-2023 NotePatient Education Materials Name: Berenice Nolsaco Current Date: 05/20/2023 13:09:49 Danni/[facility] : 1950 The following sheet(s) are the [...] right away to prevent serious problems. ? [phone] [employer]. [address] [place] [address]. All rights reserved. This information is not intended as a substitute for professional medical care. Always follow your healthcare professional's instructions.[facility]07-03-2023 Evaluation note* Encounter Date Diagnosis Assessment [...] Encounter for weight management (ICD-10 - Z76.89) [facility] Other 03-08-2023 History of Present illness [...] the decision is whether to leave the coating supervisor and removal Of the port were to [...] IN 2017 Malignant neoplasm of female breast HI (myocardial infarction) with knee scope PVD (peripheral vascular disease) Past Surgical History: Procedure Laterality Date RECONSTRUCTION BREAST TISSUE HELPER DRIVER INCLUDING SUBSEQUENT EXPANDERS Right 07/09/2022 Laterality: Right; Surgeon: Apolinar Henry MD; Location: [facility] IMPLANTATION BIOLOGIC IMPLANT FOR SOFT TISSUE REINFORCEMENT ADD-ON PX Right 07/09/2022 RT BREAST RECONSTRUCTION W/ PLACEMENT TISSUE HELPER DRIVER & ADM/ 150 CC FILL MASTECTOMY Right 1992 BLADDER REPAIR HYSTERECTOMY KNEE SURGERY Bilateral 2016 AND HAD HI DURING SURGERY ORAL SURGERY REMOVAL CATARACT (PEM) [...] kg/m Smoking Status Never The patient's right coating supervisor is in good position. The overlying tissue [...] Follow-up later this year documented in this [facility]02-08-2023 History of Present illness Narrative* Raphael Majano [...] IN 2017 Malignant neoplasm of female breast HI (myocardial infarction) with knee scope PVD (peripheral vascular disease) Past Surgical History: Procedure Laterality Date RECONSTRUCTION BREAST TISSUE HELPER DRIVER INCLUDING SUBSEQUENT EXPANDERS Right 07/09/2022 Laterality: Right; Surgeon: Apolinar Henry MD; Location: [facility] IMPLANTATION BIOLOGIC IMPLANT FOR SOFT TISSUE REINFORCEMENT ADD-ON PX Right 07/09/2022 RT BREAST RECONSTRUCTION W/ PLACEMENT TISSUE HELPER DRIVER & ADM/ 150 CC FILL MASTECTOMY Right 1992 BLADDER REPAIR HYSTERECTOMY KNEE SURGERY Bilateral 2016 AND HAD HI DURING SURGERY ORAL SURGERY REMOVAL CATARACT (PEM) [...] Status Never Patient with right breast tissue coating supervisor. She has left breast ptosis and hypertrophy. The port is in satisfactory position. The patient has many questions and is undecided regarding further reconstructive plans. She is interested in matching the left breast however this breast is ptotic and larger. I indicated its more difficult to reconstruct a breast that looks identical to that side. News Producer is at its maximal volume of 390 mL for which it could be As a permanent implant. Discussed with the patient that we could consider reassessment in a month to allow the tissue on the right side to relax. After that time we can review the options which may include leaving the coating supervisor in place or overexpansion with eventual plans for replacement with a permanent implant. I have reviewed massage of the implant to help soften the pocket. Assessment: Ongoing right breast reconstruction Plan: Pt to RETURN in 1 month FOR RECHECK. They are encouraged to call in the interim with any problems or questions relating to this encounter. documented in this [facility]Mag[facility]01-[facility] History of Present illness Narrative* [...] evaluation of continued filling of her tissue coating supervisor. She states she had pain following the [...] IN 2017 Malignant neoplasm of female breast HI (myocardial infarction) with knee scope PVD (peripheral vascular disease) Past Surgical History: Procedure Laterality Date RECONSTRUCTION BREAST TISSUE HELPER DRIVER INCLUDING SUBSEQUENT EXPANDERS Right 07/09/2022 Laterality: Right; Surgeon: Apolinar Henry MD; Location: [facility] IMPLANTATION BIOLOGIC IMPLANT FOR SOFT TISSUE REINFORCEMENT ADD-ON PX Right 07/09/2022 RT BREAST RECONSTRUCTION W/ PLACEMENT TISSUE HELPER DRIVER & ADM/ 150 CC FILL MASTECTOMY Right 1992 BLADDER REPAIR HYSTERECTOMY KNEE SURGERY Bilateral 2017 AND HAD HI DURING SURGERY ORAL SURGERY REMOVAL CATARACT (PEM) [...] expansion for 3 months before removing the coating supervisor and placement of the permanent implant. She presently has 330 mL in and we will put 60 mL in for her to assess the size. The pts Tissue News Producer was Filled with 60 cc's of Injectable Saline (unilaterally) after prepping the skin with alcohol. She tolerated the procedure well. She is to follow up in 2 Weeks for evaluation and possible further expansion. Assessment: Ongoing right breast reconstruction with continued filling of her tissue coating supervisor Plan: Pt to RETURN in 2 weeks FOR RECHECK. They are encouraged to call in the interim with any problems or questions relating to this encounter. documented in this encounterMagruder [facility] Hospital01-11-2023 History of Present illness Narrative* [...] IN 2017 Malignant neoplasm of female breast HI (myocardial infarction) with knee scope PVD (peripheral vascular disease) Past Surgical History: Procedure Laterality Date RECONSTRUCTION BREAST TISSUE HELPER DRIVER INCLUDING SUBSEQUENT EXPANDERS Right 07/09/2022 Laterality: Right; Surgeon: Apolinar Henry MD; Location: [facility] IMPLANTATION BIOLOGIC IMPLANT FOR SOFT TISSUE REINFORCEMENT ADD-ON PX Right 07/09/2022 RT BREAST RECONSTRUCTION W/ PLACEMENT TISSUE HELPER DRIVER & ADM/ 150 CC FILL MASTECTOMY Right 1993 BLADDER REPAIR HYSTERECTOMY KNEE SURGERY Bilateral 2016 AND HAD HI DURING SURGERY ORAL SURGERY REMOVAL CATARACT (PEM) [...] side which is nontender. The pts Tissue News Producer was Filled with The 75 cc's of [...] relating to this encounter. documented in this encounterMagruder [facility] Hospital11-30-2022 History of Present illness Narrative* [...] IN 2017 Malignant neoplasm of female breast HI (myocardial infarction) with knee scope Past Surgical History: Procedure Laterality Date RECONSTRUCTION BREAST TISSUE HELPER DRIVER INCLUDING SUBSEQUENT EXPANDERS Right 07/09/2022 Laterality: Right; Surgeon: Apolinar Henry MD; Location: [facility] IMPLANTATION BIOLOGIC IMPLANT FOR SOFT TISSUE REINFORCEMENT ADD-ON PX Right 07/09/2022 RT BREAST RECONSTRUCTION W/ PLACEMENT TISSUE HELPER DRIVER & ADM/ 150 CC FILL MASTECTOMY Right 1993 BLADDER REPAIR HYSTERECTOMY KNEE SURGERY Bilateral 2016 AND HAD HI DURING SURGERY ORAL SURGERY REMOVAL CATARACT (PEM) [...] There is no discoloration. The pts Tissue News Producer was Filled with 35 cc's of Injectable Saline (bilaterally/unilaterally) after prepping the skin with alcohol. She tolerated the procedure well. She is to follow up in 2 Weeks for evaluation and further expansion. Assessment: Acquired absence right breast. Patient for expansion of tissue coating supervisor Plan: Pt to RETURN in 2 weeks FOR RECHECK. They are encouraged to call in the interim with any problems or questions relating to this encounter. documented in this encounterMag[facility] Hospital11-23-2022 History of Present illness Narrative* [...] IN 2017 Malignant neoplasm of female breast HI (myocardial infarction) with knee scope Past Surgical History: Procedure Laterality Date RECONSTRUCTION BREAST TISSUE HELPER DRIVER INCLUDING SUBSEQUENT EXPANDERS Right 07/09/2022 Laterality: Right; Surgeon: Apolinar Henry MD; Location: [facility] IMPLANTATION BIOLOGIC IMPLANT FOR SOFT TISSUE REINFORCEMENT ADD-ON PX Right 07/09/2022 RT BREAST RECONSTRUCTION W/ PLACEMENT TISSUE HELPER DRIVER & ADM/ 150 CC FILL MASTECTOMY Right 1992 BLADDER REPAIR HYSTERECTOMY KNEE SURGERY Bilateral 2016 AND HAD HI DURING SURGERY ORAL SURGERY REMOVAL CATARACT (PEM) [...] relating to this encounter. documented in this [facility]11-09-[facility] History of Present illness Narrative* Ameena [...] IN 2017 Malignant neoplasm of female breast HI (myocardial infarction) with knee scope Past Surgical History: Procedure Laterality Date RECONSTRUCTION BREAST TISSUE HELPER DRIVER INCLUDING SUBSEQUENT EXPANDERS Right 07/09/2022 Laterality: Right; Surgeon: Apolinar Henry MD; Location: [facility] IMPLANTATION BIOLOGIC IMPLANT FOR SOFT TISSUE REINFORCEMENT ADD-ON PX Right 07/09/2022 RT BREAST RECONSTRUCTION W/ PLACEMENT TISSUE HELPER DRIVER & ADM/ 150 CC FILL MASTECTOMY Right 1993 BLADDER REPAIR HYSTERECTOMY KNEE SURGERY Bilateral 2017 AND HAD HI DURING SURGERY ORAL SURGERY REMOVAL CATARACT (PEM) [...] right breast reconstruction with placement of tissue coating supervisor Plan: Pt to RETURN in 2 weeks FOR RECHECK. They are encouraged to call in the interim with any problems or questions relating to this encounter. documented in this encounterMag[facility] Hospital11-02-2022 History of Present illness Narrative* [...] for evaluation of Right breast reconstruction with coating supervisor on 07/09/22. She complains of soreness, 7/10 [...] IN 2017 Malignant neoplasm of female breast HI (myocardial infarction) with knee scope Past Surgical History: Procedure Laterality Date RECONSTRUCTION BREAST TISSUE HELPER DRIVER INCLUDING SUBSEQUENT EXPANDERS Right 07/09/2022 Laterality: Right; Surgeon: Apolinar Henry MD; Location: [facility] IMPLANTATION BIOLOGIC IMPLANT FOR SOFT TISSUE REINFORCEMENT ADD-ON PX Right 07/09/2022 Laterality: Right; Surgeon: Apolinar Henry MD; Location: [facility] MASTECTOMY Right 1992 BLADDER REPAIR HYSTERECTOMY KNEE SURGERY Bilateral 2017 AND HAD HI DURING SURGERY ORAL SURGERY REMOVAL CATARACT (PEM) [...] breast reconstruction with placement of a tissue coating supervisor Plan: Pt to RETURN in 1 week FOR RECHECK. They are encouraged to call in the interim with any problems or questions relating to this encounter. documented in this encounterMag[facility] Hospital10-27-2022 Nurse Surgical operation note* Deanna [...] Les. Encouraged to use CPAP at home. [facility]10[facility] Nurse Note* Deanna Jimenez RN [...] Dressings applied. Patient transported to PACU by paola segovia RN and Nuno hahn CRNA. Report given to alphonse DIAZ upon arrival. Patient connected to Monitors. documented in this [facility]10-27-[facility] Nurse Surgical operation note* Alphonse Craft [...] pain, VSS, resp even and unlabored. . [facility]10-[facility] Hospital Discharge instructions* Discharge Instructions* [...] Care Everywhere. * Incentive Spirometer: General Info (Vincentian) documented in this [facility]10-27-[facility] Note* Brief Op Note - Apolinar Henry MD - 07/09/2022 2:34 PM EDT POST OPERATIVE/PROCEDURE NOTE Berenice Nolasco ([id number]) SURGEON Surgeon(s) and Role: * Apolinar Henry MD - Primary VOICE NETWORK ADMINISTRATOR YEYO ANESTHESIOLOGIST ANIMAL HUSBANDRY PROFESSOR: Real Hahn APRN-LILIANA SURGICAL STAFF Client Leader: Marleni Swartz RN; Joanna Flores RN Monitoring Nurse: Linsey Reyes RN Registered Nurse Mobile Device Developer: Cady Vasquez RN Scrub Person: Laisha An LPN Customer Leader: Janetnaldo Feldman PROCEDURE PERFORMED Right breast reconstruction with placement of tissue coating supervisor ([id number]) 150cc initial fill PRIMARY CLOSURE Yes [...] Henry MD July 09, 2022 2:34 PM [facility]10-[facility] Miscellaneous Notes* Brief Op Note - Apolinar Henry MD - 07/09/2022 2:34 PM EDT POST OPERATIVE/PROCEDURE NOTE Berenice Nolasco ([id number]) SURGEON Surgeon(s) and Role: * Apolinar Henry MD - Primary VOICE NETWORK ADMINISTRATOR YEYO ANESTHESIOLOGIST ANIMAL HUSBANDRY PROFESSOR: REBEL Ochoa SURGICAL STAFF Client Leader: Marleni Swartz RN; Joanna Flores RN Monitoring Nurse: Linsey Reyes RN Registered Nurse Mobile Device Developer: Cady Vasquez RN Scrub Person: Laisha An LPN Customer Leader: Janetnaldo Feldman PROCEDURE PERFORMED Right breast reconstruction with placement of tissue coating supervisor ([id number]) 150cc initial fill PRIMARY CLOSURE Yes [...] 09, 2022 2:34 PM documented in this encounterMagruder [facility] Hospital10-27-2022 Nurse Surgical operation note* Joanna Flores RN - 07/09/2022 12:24 PM EDT OR room temp 68f Humidity 305 Firescore 2 Prep dry prior to draping. Procedure completed. Dressings applied. Patient transported to PACU by paola segovia RN and Nuno hahn CRNA. Report given to alphonse DIAZ upon arrival. Patient connected to Monitors. [facility] History and physical note* Apolinar Henry MD - 07/09/2022 10:58 AM EDT I have examined the patient and reviewed the previous H&P completed on date 06/24/22 and there are no changes. See paper H&P in chart Apolinar Henry MD, 07/09/2022, 10:59 AM. T [facility]10-27-20[facility] History and physical note* Apolinar Henry MD - 07/09/2022 10:58 AM EDT I have examined the patient and reviewed the previous H&P completed on date 06/24/22 and there are no changes. See paper H&P in chart Apolinar Henry MD, 07/09/2022, 10:59 AM. documented in this [facility]10-18-2022 History of Present illness Narrative* Ameena [...] IN 2017 Malignant neoplasm of female breast HI (myocardial infarction) with knee scope Past Surgical History: Procedure Laterality Date MASTECTOMY Right 1992 BLADDER REPAIR HYSTERECTOMY KNEE SURGERY Bilateral 2017 AND HAD HI DURING SURGERY ORAL SURGERY REMOVAL CATARACT (PEM) [...] procedure of Right breast reconstruction with tissue coating supervisor Was thoroughly reviewed with the patient. The [...] right breast reconstruction with placement of tissue coating supervisor Plan: We will proceed with surgery in the near future and the patient will call with any further questions. I spent 50 minutes total time with the patient. documented in this [facility]10-04-20[facility] History of Present illness Narrative* Ameena [...] We discussed direct to implant versus tissue coating supervisor and decided on tissue coating supervisor to allow flexibility in choosing her size. She understands in a second surgery would be required to either remove the port or replace the implant. I measured her for an implant today which will be a tissue coating supervisor--smooth round spectrum [id number] an approximately 12 cm diameter The procedure of Right breast reconstruction with tissue coating supervisor was thoroughly reviewed with the patient. The [...] for further preoperative preparation documented in this [facility]09-07-2022 History of Present illness Narrative* Ameena Jackson [...] types of reconstructions described included: 1) Tissue coating supervisor and implant based reconstruction, both single and [...] after considering the options documented in this encounterMag[facility]05-03-2022 NotePROCEDURE: XR HIPS CHARLIE 5V [...] Electronically authenticated by: TY BOUDREAUX Date: 2022-01-13 17:45[facility]* Diagnosis Personal history of malignant neoplasm of breast- Primary 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 absence of breast and nipple documented in this encounter [facility]* Diagnosis Personal history of malignant neoplasm of breast- Primary 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 absence of breast and nipple 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 absence of breast and nipple [facility] Diagnosis S/P breast reconstruction- Primary Breast replaced by other means 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 absence of breast and nipple Personal history of malignant neoplasm of breast 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 absence of breast and nipple [facility] Diagnosis Acquired absence of right breast- Primary Acquired absence of right breast Personal history of malignant neoplasm of breast Personal history of malignant neoplasm of breast [facility]* Diagnosis Acquired absence of right breast and nipple- Primary Acquired absence of breast and nipple Personal history of malignant neoplasm of breast S/P breast reconstruction Breast replaced by other means [facility] Diagnosis Acquired absence of right breast and nipple- Primary Acquired absence of breast and nipple S/P breast reconstruction Breast replaced by other means [facility]* Diagnosis S/P breast reconstruction- Primary Breast replaced by other means [facility]* Diagnosis S/P breast reconstruction- Primary Breast replaced by other means 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 absence of breast and nipple [facility]* Diagnosis Right-sided chest pain [facility]* Diagnosis Acquired absence of right breast and nipple- Primary Acquired absence of breast and nipple S/P breast reconstruction Breast replaced by other means [facility]* Diagnosis Acquired absence of right breast and nipple- Primary Acquired absence of breast and nipple S/P breast reconstruction Breast replaced by other means documented in this encounter [facility] Hospital[facility] noteNo InformationNort [employer] Other Evaluation noteNo assessment information available [facility] Work Phone: Evaluation note* Diagnosis Onset Date Resolution Status Breast asymmetry between donavan vera breast and reconstructed breast acute Breast hypertrophy acute History of cancer of right breast acute [facility] Work Phone: Evaluation note* Diagnosis Onset Date Resolution Status BMI 32.0-32.9,adult acute Depression acute GERD (gastroesophageal reflux disease) acute Hyperlipidemia acute Hypothyroid acute Obesity acute NARA on CPAP acute [facility] Work Phone: Evaluation note* Diagnosis Onset Date Resolution Status Breast asymmetry between donvaan vera breast and reconstructed breast acute Breast [...] breast acute S/P breast reconstruction, right acute [facility] Work Phone: Evaluation note* Diagnosis Onset [...] breast acute S/P breast reconstruction, right acute [facility] Work Phone: History general Narrative - [...] side breast tissue expand er Surgical History [place] teeth Surgical History 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 Surgical History Heart cath Surgical History Dental implant Hospitalization History See above [facility] Other History general Narrative - Reported* Type [...] side breast tissue expand er Surgical History [place] teeth Surgical History 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 Surgical History Heart cath Surgical History Dental implant Surgical History Inguinal hernia repair Surgical History Steroid injections in back Hospitalization History See above [facility] Other InstructionsNot on filedocumented in this encounter [facility] HealthReason for visit Narrative* Auth/Cert Specialty Diagnoses / Procedures Referred By Contac t Referred To Contact Diagnoses 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 Personal history of malignant neoplasm of breast [Z85.3] 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] Procedures MD TISSUE HELPER DRIVER PLACEMENT BREAST RECONSTRUCTION MD IMPLNT BIO IMPLNT FOR SOFT TISSUE REINFORCEMENT RECONSTRUCTION BREAST TISSUE HELPER DRIVER INCLUDING SUBSEQUENT EXPANDERS IMPLANTATION BIOLOGIC IMPLANT FOR SOFT TISSUE REINFORCEMENT ADD-ON PX Apolinar Henry MD [address] [place] [address] Referral ID Status Reason Start Date Expiration Date Visits Re quested Visits Authorized [id number] 06/10/2022 1 1 [facility] Family History No Family History [...] Date/ Time Name of Medical Power of Analytical Chemistry Teacher SPOUSE December 30, 2023 10:37am Living Will Yes December 30, 2023 10:37am Power of Analytical Chemistry Teacher Yes December 29 10:37am Advance Directive Response Recorded Date/ Time Living Will Yes December 30, 2023 10:37am Power of Analytical Chemistry Teacher Yes December 29 10:37am Chief Complaint and Reason for Visit Chief Complaint Consult Chief Complaint Consult preop #1 left breast red/ right coating supervisor port Reason for Visit Breast asymmetry bet ween [place] breast and reconstructed breast Breast hypertrophy History of cancer of right breast Chief Complaint Wmn F/U Obesity WMN COMPENSATION AND BENEFITS ADVISOR follow up Reason for Visit BMI 32.0-32.9,adult Depression GERD (gastroesophageal reflux disease) Hyperlipidemia Hypothyroid Obesity NARA on CPAP Chief Complaint WMN COMPENSATION AND BENEFITS ADVISOR follow up WM RD followu p Reason [...] cancer of right breast Breast asymmetry between [place] breast and reconstructed breast Breast hypertrophy History of cancer of right breast S/P breast reconstruction, right Breast asymmetry between [place] breast and reconstructed breast History of cancer of right breast S/P breast reconstruction, right Breast asymmetry between [place] breast and reconstructed breast Breast hypertrophy History of cancer of right breast S/P breast reconstruction, right Chief Complaint WM RD followu p Reason for Visit BMI 32.0-32.9,adult Depression GERD (gastroesophageal reflux disease) Hyperlipidemia Hypothyroid Obesity ANRA on CPAP Chief Complaint Follow up pre op #1 Left Breast reduction/port removal pre op #2 left breast reduction/port removal Reason for Visit Breast asymmetry bet we[place] breast and reconstructed breast Breast hypertrophy History of cancer of right breast Breast asymmetry between kar[place] breast and reconstructed breast Breast hypertrophy History of cancer of right breast S/P breast reconstruction, right Breast asymmetry between kar[place] breast and reconstructed breast History of cancer of right breast S/P breast reconstruction, right Additional Source Comments INFORMATION SOURCE (unrecogn ized section and content) DATE CREATED AUTHOR 03/07/2018 [facility] DATE CREATED AUTHOR AUTHOR'S ORGANIZ ATION 08/23/2018 [facility] DATE CREATED AUTHOR AUTHOR'S ORGANIZ ATION 09/01/2018 [facility] DATE CREATED AUTHOR AUTHOR'S ORGANIZ ATION 12/11/2020 [facility] DATE CREATED AUTHOR AUTHOR'S ORGANIZ ATION 07/10/2022 [facility] DATE CREATED AUTHOR AUTHOR'S ORGANIZ ATION 11/20/2022 [facility] DATE CREATED AUTHOR AUTHOR'S ORGANIZ ATION 12/25/2022 [facility] DATE CREATED AUTHOR AUTHOR'S ORGANIZ ATION 11/19/2023 [facility] DATE CREATED AUTHOR AUTHOR'S ORGANIZ ATION 01/07/2024 [facility] DATE CREATED AUTHOR AUTHOR'S ORGANIZ ATION 02/12/2024 [facility] DATE CREATED AUTHOR AUTHOR'S ORGANIZ ATION 03/02/2024 [facility] DATE CREATED AUTHOR AUTHOR'S ORGANIZ ATION 03/04/2024 [facility] DATE CREATED AUTHOR AUTHOR'S ORGANIZ ATION 03/05/2024 [facility] Reason for Visit (unrecogniz ed section [...] Op Visit Right breast reconst ruction with coating supervisor on 07/09/22. She complains of soreness, 7/10 [...] Care Teams (unrecognized sec tion and content) Subassembly Assembler Relationship Specialty Start Date End Date Shaikh Kerry Villagran MD [address] [place] [address] PCP - General Internal Medicine 05/20/22 Subassembly Assembler Relationship Specialty Start Date End Date Shaikh Kerry Villagran MD [address] [place] [address] PCP - General Internal Medicine 05/20/22 Subassembly Assembler Relationship Specialty Start Date End Date Shaikh Kerry Villagran MD [address] [place] [address] PCP - General Internal Medicine 05/20/22 Subassembly Assembler Relationship Specialty Start Date End Date Shaikh Kerry Villagran MD [address] [place] [address] PCP - General Internal Medicine 05/20/22 Subassembly Assembler Relationship Specialty Start Date End Date Shaikh Kerry Villagran MD [address] [place] [address] PCP - General Internal Medicine 05/20/22 Subassembly Assembler Relationship Specialty Start Date End Date Shaikh Kerry Villagran MD [address] [place] [address] PCP - General Internal Medicine 05/20/22 Team [...] November 01, 2023 End: November 01, 2023 Subassembly Assembler Relationship Specialty Start Date End Date Trino Montiel MD [address] [place] [address] PCP - General 04/28/13 Team Status: Inactive [...] Provider, Referring Pro vider Active Team Status: Inactive Member Role Status Dates Shaikh Tyshawn MD Primary Care Provider Active Start: January 31, 2024 End: January 31, 2024 Susanne Jordan APRN Attending Provider Active Start: January 31, 2024 End: January 31, 2024 Scheduled Active and Recently Administ ered Medications [...] BE BASED ON THE PRIMARY CLINICAL RECORDS. [facility]. provides no warranty or guarantee of the accuracy or completeness of information in this document.
--- NOTE | 2024-03-15 09:24 | P.CN_ITS ---
Consult Note: HPI Data of Consult Patient: known to practice within the last 3 years Requesting Physician: Beth Morales NP Primary Care Provider: Shaikh Tyshawn MD Consult Narrative Reason for consult: f/u Narrative: Berenice Nolasco a pleasant 73 year old female presents for evaluation and management of low back pain. Pain today 4-5 ache increasing with twisting, pushing, pulling, standing, pain improved with sitting and heat. Pain increases to 8/10 at its most intense. ADELSO 42% with limitations in standing, walking, sleeping, lifting, and completing ADLs. The patient has had over 3 months of moderate to severe low back pain with functional impairment and inadequate response to conservative care including NSAIDS (unless there are contraindication such as concurrent blood thinners), multiple oral or topical pain medications, and home exercise program/physical therapy.? Patient has completed >6 weeks of guided home exercise program and/or formal physical therapy program without relief of their symptoms.?I have reviewed the imaging of the lumbar spine and no red flags were identified.? The imaging reveals radiographic findings consistent with lumbar facet arthropathy. Recently underwent bilateral L4/5 L5/S1 MBB #1 with 30% improvement in pain, patient previously underwent lumbar ESIs and bilateral SIJ injections with benefit. P atient reports no improvement from PT, completed 8 visits without improvement. cc:: CC: Beth Morales NP Review of Systems ROS Status of ROS 10 or more systems reviewed and unremark able except as noted in history and below Musculoskeletal Reports: back pain and joint pain PFSH PFSH Medical History Osteoarthritis ?M19.90 - Unspecified osteoarthritis, unspecified site (ICD-10) H/O malignant neoplasm of breast ?Z85.3 - Personal history of malignant neoplasm of breast (ICD-10) Acid reflux ?K21.9 - Gastro-esophageal reflux disease without esophagitis (ICD-10) Diabetes ?E11.9 - Type 2 diabetes mellitus without complications (ICD-10) Sleep apnea ?G47.30 - Sleep apnea, unspecified (ICD-10) High cholesterol ?E78.00 - Pure hypercholesterolemia, unspecified (ICD-10) Surgical History S/P herniorrhaphy ?Z98.890 - Other specified postprocedural states (ICD-10) ?Z87.19 - Personal history of other diseases of the digestive system (ICD-10) H/O mastectomy ?Z90.10 - Acquired absence of unspecified breast and nipple (ICD-10) H/O arthroscopy of shoulder ?Z98.890 - Other specified postprocedural states (ICD-10) H/O arthroscopy of knee ?Z98.890 - Other specified postprocedural states (ICD-10) H/O bladder repair surgery ?Z98.890 - Other specified postprocedural states (ICD-10) H/O: hysterectomy ?Z90.710 - Acquired absence of both cervix and uterus (ICD-10) H/O breast reconstruction ?Z98.890 - Other specified postprocedural states (ICD-10) Social History Smoking status: Never smoker Meds Home Medications and Allergies Home Medications ?Medication ?Instructions ?Recorded ?Confirmed ?Type aspirin 81 mg tablet,delayed 81 mg PO DAILY 05/31/23 01/26/24 History release (Adult Low Dose Aspirin) calcium carbonate 600 mg-vitamin 1 tab PO DAILY 05/31/23 01/26/24 History D3 5 mcg (200 unit) tablet (Calcium 600 + D(3)) citalopram 20 mg tablet 30 mg PO DAILY 05/31/23 01/26/24 History esomeprazole magnesium 40 mg 40 mg PO DAILY 05/31/23 01/26/24 History capsule,delayed release (Nexium) famotidine 20 mg tablet 20 mg PO DAILY 05/31/23 01/26/24 History fesoterodine 8 mg tablet,extended 8 mg PO DAILY 05/31/23 01/26/24 History release 24 hr flaxseed oil 1,000 mg capsule 1,000 mg PO DAILY 05/31/23 01/26/24 History lactobacillus combination no.4 3 3,000 mmu cells PO DAILY 05/31/23 01/26/24 History billion cell capsule (Probiotic) levothyroxine 50 mcg capsule 50 mcg PO DAILY 05/31/23 01/26/24 History melatonin 10 mg capsule 10 mg PO DAILY 05/31/23 01/26/24 History multivitamin (Daily Multi-Vitamin 1 tab PO DAILY 05/31/23 01/26/24 History tablet) semaglutide 0.25 mg or 0.5 mg (2 0.25 mg subcut QWEEK 05/31/23 01/26/24 History mg/3 mL) subcutaneous pen injector (Ozempic) simvastatin 20 mg tablet 20 mg PO DAILY 05/31/23 01/26/24 History Allergies Allergy/AdvReac Type Severity Reaction Status Date / Time Penicillins Allergy Verified 01/26/24 18:39 Sulfa (Sulfonamide Allergy Verified 01/26/24 18:39 Antibiotics) acetaminophen [From Percocet] AdvReac erythema Verified 01/26/24 18:39 oxycodone [From Percocet] AdvReac erythema Verified 01/26/24 18:39 Exam Constitutional Documenting provider has reviewed patient's vital signs: yes Common normals: no apparent distress, oriented x3, healthy appearing, alert and well nourished General appearance: cooperative HENMT Common normals: normocephalic, hearing grossly normal bilaterally and moist oral mucous membranes Head and scalp: normocephalic Eye Common normals: PERRL Pupil: PERRL Neck & C-Spine Common normals: full ROM General: normal visual inspection Chest Common normals: inspection of chest normal Respiratory Common normals: normal respiratory effort, no retractions and no use of accessory muscles Back & Pelvis Lumbar spine/lower back: ROM limited, pain with ROM and straight leg raise negative bilaterally Sacroiliac joints: SI joint(s) abnormal Other: mild pain with bilateral facet loading axial low back pain over L3,4,5,S1 no radiculopathy pain over bilateral PSIS, positive rox fadir thigh thrust gaenslens strength 4/5 in BLE tenderness over bilateral GTB Extremity Common normals: full ROM General: edema Other: negative internal and external log roll of bilateral hips Neuro Common normals: oriented x3, CN's II-XII intact bilaterally, moves all extremities, no focal motor deficits, no sensory deficits noted and deep tendon reflexes 2+ bilaterally Sensorium/orientation: alert Motor exam: no movement abnormalities noted and strength abnormal Psych Common normals: mental status grossly normal, thought process normal, cooperative, affect normal, speech normal and activity/motor behavior normal Speech: normal speech Thought process: normal thought process Results Additional Findings Additional findings: If on a controlled substance or opioids, I have checked an [place] report on this patient and there are no aberrancies noted in the prescribing history.??If on a controlled substance or opioid a drug screen was completed and reviewed within the last year, and if there has not been a drug screen completed we ordered one today to monitor higher risk, state monitored pain medication use. As part of providing excellent, safe, comprehensive care, the following was completed at our patient's visit: 1. A medication reconciliation and review to ensure accurate knowledge of current/active medications, including asking our patients to inform us about any [id number] medications or herbal remedies/nutritional supplements/alternative remedies. 2. A review to specifically ensure our patients have had annual screening for screening for depression, screening for tobacco use, and screening for unhealthy alcohol use. For concerning screenings had a discussion with the patient, provided patient education, and recommended follow-up with primary care provider when appropriate. If patient noted with a risk of falling, they received education on strength, gait, and balance training to prevent future risk of falling. Assessment and Plan Assessment and Plan (1) Lumbar stenosis with neurogenic claudication: (2) Sacroiliac joint dysfunction of both sides: (3) Lumbar spondylosis: Plan update lumbar MRI without contrast to evaluate lumbar stenosis with NC unresponsive to PT/HEP greater than 6 weeks, tylenol/motrin greater than 6 weeks, heat and ice continue current medications continue HEP as tolerated f/u after MRI
== END 2024-03-15 08:36 | disposition home or self-care (01) ==
LOC: PM 08:39
PROVIDERS: PCP Internal Medicine; Visit Provider Nurse Practitioner
DX: M25.551 Pain in right hip (principal); M16.11 Unilateral primary osteoarthritis, right hip; M48.062 Spinal stenosis, lumbar region with neurogenic claudication; M53.3 Sacrococcygeal disorders, not elsewhere classified; M47.816 Spondylosis without myelopathy or radiculopathy, lumbar region
CPT/HCPCS: 73502; G0463

== ENCOUNTER 2024-03-15 09:35 | Outpatient (OUT) | payer MEDICARE, OTHER, SELFPAY ==
--- NOTE | 2024-03-15 09:41 | XR_ITS ---
[facility] [place] [id number] Patient Name: DELBERT SALAS MRN: [id number] date: 1950 Sex: F Assigned Patient Location: [facility] Current Patient Location: Accession/Order Number: [id number] Exam Date: 03/15/2024 09:44 Report Date: 03/16/2024 05:35 At the request of: SARAH AL Procedure: XR hip RT min 2V PROCEDURE: XR hip RT min 2V HISTORY: Right Hip Pain ; chronic COMPARISON: XR hips bilateral 01/13/2022 FINDINGS: BONES:Narrowing of the hip joint space; moderate narrowing medially and mild narrowing superiorly. Prominent periarticular degenerative osteophytes involving the femoral head and acetabulum. No fracture, articular surface irregularity, bone lesion. SOFT TISSUES:No visible soft tissue swelling. EFFUSION:None visible. OTHER: Negative. XR/XR hip RT min 2V IMPRESSION: 1. Moderate degenerative joint disease of the right hip. Electronically authenticated by: TY BOUDREAUX Date: 03/16/2024 05:35
== END 2024-03-15 09:36 | disposition home or self-care (01) ==
LOC: RAD 09:36
PROVIDERS: PCP Internal Medicine; Visit Provider Nurse Practitioner
DX: M25.551 Pain in right hip (principal); M16.11 Unilateral primary osteoarthritis, right hip
CPT/HCPCS: 73502

== ENCOUNTER 2024-04-14 15:38 | Outpatient (OUT) | payer MEDICARE, OTHER, SELFPAY ==
--- NOTE | 2024-04-14 | XR_ITS ---
[facility] [place] [address] Patient Name: DELBERT SALAS MRN: [id number] date: 1950 Sex: F Assigned Patient Location: [facility] Current Patient Location: Accession/Order Number: [id number] Exam Date: 04/14/2024 15:47 Report Date: 04/15/2024 07:16 At the request of: SHAIKH GERALDO Procedure: XR hip LT min 2V PROCEDURE: XR hip LT min 2V HISTORY: Left hip pain , chronic COMPARISON: XR hip left 05/07/2023 FINDINGS: BONES:Moderate narrowing of the hip joint space with large degenerative osteophytes along the articular margins of the femoral head and moderate size osteophyte along superior rim of acetabulum. SOFT TISSUES:No visible soft tissue swelling. EFFUSION:None visible. OTHER: Negative. XR/XR hip LT min 2V IMPRESSION: 1. Grossly stable moderate to marked degenerative changes of the left hip joint. Electronically authenticated by: TY BOUDREAUX Date: 04/15/2024 07:16
--- OUTSIDE RECORDS SUMMARY | 2024-04-14 15:44 | XMS_ITS | CCD ---
Author Organization [facility] Care Team Providers Care Cut Pressman Name Role Phone NANCY MARTINEZ Unavailable Unavailable NANCY MARTINEZ Unavailable Unavailable TRINO MONTIEL~[id number] UNKNOWN Unavailable Unavailable GRUPO BROUSSARD Unavailable Unavailable ID Procedure Practitioner Unavailab ADAM Bernardo Surgeon Unavailable ADAM SKINNER Admitting Unavailable NADERER, TRINO Primary Care Unavailable NADCARINR TRINO Referring Unavailable ADAM SKINNER Attending Unavailable LASHA BAKER Surgeon Unavailable ID Procedure Practitioner Unavailab le Tyshawn ADAMSON, Shaikh Kerry Primary Care Provider Shaikh Kerry Villagran MD Primary Care Provider SHAIKH KERRY VILLAGRAN Primary Care Unavailab le GHAZOUL, APOLINAR Admitting Unavailable GHAZOUL, APOLINAR Attending Unavailable GHAZOUL, APOLINAR Referring Unavailable GHAZOUL, APOLINAR Attending Unavailable GHAZOUL, APOLINAR Referring Unavailable FAWWALEAH [facility] Primary Care Unavailab le [facility] Primary Care Unavailab le SELF, SELF Referring Unavailable GHAZOUL, APOLINAR Attending Unavailable PADILLAWNJNuno, FREED[facility]ITAL[facility] Primary Care Unavailab le GHAZOUL, APOLINAR Referring Unavailable GHAZOUL, APOLINAR Attending Unavailable PADILLAWJACIEL, F[facility]ED[facility] Primary Care Unavailab le SELF, SELF Referring Unavailable GHAZOUL, APOLINAR Attending Unavailable PADILLAWJACIEL, [facility]ED[facility] Primary Care Unavailab le SELF, SELF Referring Unavailable GHAZOUL, APOLINAR Attending Unavailable AKINJNuno, F[facility]ED[facility]ITAL[facility]EL[facility] Primary Care Unavailab le SELF, SELF Referring Unavailable GHAZOUL, APOLINAR Attending Unavailable PADILLAJACOBI [facility] CENTERN[facility], FREED HAMIZUL Primary Care Unavailab le SELF, SELF Referring Unavailable GHAZOUL, APOLINAR Attending Unavailable FAWWAD, FREED HAMIZUL Primary Care Unavailab le SELF, SELF Referring Unavailable GHAZOUL, APOLINAR Attending Unavailable FAWWAD, [facility] Primary Care Unavailab le SELF, SELF Referring Unavailable GHAZOUL, APOLINAR Attending Unavailable FAWWAD, [facility] HAMIZUL Primary Care Unavailab le SELF, SELF Referring Unavailable GHAZOUL, APOLINAR Attending Unavailable FAWWAD, [facility] Primary Care Unavailab le SELF, SELF Referring Unavailable GHAZOUL, APOLINAR Attending Unavailable FAWWAD, [facility] Primary Care Unavailab le SELF, SELF Referring Unavailable GHAZOUL, APOLINAR Attending Unavailable FAWWAD, [facility] Primary Care Unavailab le SELF, SELF Referring Unavailable GHAZOUL, APOLINAR Attending Unavailable FAWWAD, [facility] Primary Care Unavailab le SELF, SELF Referring Unavailable GHAZOUL, APOLINAR Attending Unavailable FAWWAD, [facility] HAMIZUL Primary Care Unavailab le FAWWAD, [facility] HAMIZUL Primary Care Unavailab le FAWWAD, [facility] Primary Care Unavailab le SELF, SELF Referring Unavailable GHAZOUL, APOLINAR Attending Unavailable FAWWAD, FREED H Attending Unavailable FAWWAD, FREED H Consulting Unavailable FAWWAD, FREED H Primary Care Unavailable FAWWAD, FREED H Admitting Unavailable FAWWAD, FREED H Attending Unavailable FAWWAD, FREED H Consulting Unavailable FAWWAD, FREED H Primary Care Unavailable FAWWAD, FREED H Admitting Unavailable FAWWAD, FREED H Primary Care Unavailable JUVENALEBBEKA, DR TY Marquez Consulting Unavailable FAWWAD, FREED H Admitting Unavailable FAWWAD, FREED H Attending Unavailable FAWWAD, FREED H Consulting Unavailable ALPINE, DR ADAM Castellanos Admitting Unavailable WEST, DR ADAM Castellanos Attending Unavailable ALPINE, DR ADAM Castellanos Consulting Unavailable FAWWAD, FREED H Primary Care Unavailable KANIKA, DR TY Marquez Consulting Unavailable ALPINE, DR ADAM Castellanos Attending Unavailable WEST, DR ADAM Castellanos Admitting Unavailable FAWWAD, FREED H Primary Care Unavailable FAWWAD, FREED H Consulting Unavailable MARCELLUS, DR ADAM Castellanos Admitting Unavailable MARCELLUS, DR ADAM Castellanos Attending Unavailable FAWWANuno, FREED H Primary Care Unavailable ADAM SKINNER [...] Jordan Unavailable Dr. Apolinar Henry Attending Provider [phone] Adriana Lyn Unavailable RENO Jordan Attending Provider MD Tyshawn [facility] Primary Care Provider Yolette BOJORQUEZ-ZEINA, Kevin Workman Attending Ela Villagran MD, [facility] Rocio Villagran MD, [facility] Rocio Betancourt MD, Jovan Cagle Attending Rocio Villagran MD, [facility] Rocio Vazquez PA-C, Agnieszka Salcedo Attending Shruti Villagran MD, [facility] Primary [facility] Rocio Betancourt MD, Jovan Cagle Referring Rocoi Field MD, Alycia eJrome Attending Gian Villagran MD, Freed Hammanuela [facility] Rocio Betancourt MD, Jovan Cagle Attending Rocio Villagran MD, [facility] Rocio Betancourt MD, Jovan Cagle Attending Rocio Villagran MD, [facility] Rocio Betancourt MD, Jovan Cagle Attending Rocio Betancourt MD, Adam Cardenas Attending Unavailabl e Tyshawn ADAMSON, [facility] Rocio Villagran MD, [facility] Rocio Betancourt MD, Jovan Cagle Attending Rocio Villagran MD, [facility] Rocio Betancourt MD, Jovan Cagle Attending Rocio Villagran MD, [facility] Rocio Dallas DO, Nancy Gonzalez Attending Shruti vailacelso Mack MD, Andrius Vmarisabel Attending Unavailable Tyshawn ADAMSON, [facility] Rocio Villagran MD, [facility] Rocio Mack MD, Andrius David Attending Unavailable Frederick ADAMSON, Andrius Vytautlizzeth Attending Unavailable Tyshawn ADAMSON, [facility] Rocio Mack MD, Andrius Vytfrantz Attending Unavailable Tyshawn ADAMSON, [facility] Unasana MUNSON, Kevin Workman Attending Unav bethel Villagran MD, [facility] Rocio MUNSON, Kevin Workman Attending Shrutiv bethel Villagran MD, [facility] Rocio Villagran MD, [facility] Unasana MUNSON, Kevin Workman Attending Shrutiv Trino Dobbs MD Primary Care Provider Dr. Apolinar Henry Attending Provider Dr. Dorothea Villagran Primary Care Provider [phone] Dr. Dorothea Villagran Referring Provider [phone] Dr. Apolinar Henry Other Provider [phone] Shaikh Villagran Primary Care Unavailable Susanne Jordan Attending Unavailable Susanne Jordan Admitting Unavailable Shaikh Villagran Primary Care Unavailable Ghazoul, Apolinar Attending Unavailable Fawwad, Freed Referring Unavailable Fawwad, [facility] Primary Care Unavailable Ghazoul, Apolinar Attending Unavailable Fawwad, Freed Referring Unavailable Fawwad, [facility] Primary Care Unavailable Ghazoul, Apolinar Attending Unavailable Fawwad, Freed Referring Unavailable Ghazoul, Apolinar Attending Unavailable Fawwad, Freed Referring Unavailable Fawwad, [facility] Primary Care Unavailable Ghazoul, Apolinar Attending Unavailable Ghazoul, Apolinar Attending Unavailable Ghazoul, Apolinar Attending Unavailable Fawwad, Freed Primary Care Unavailable Fawwad, Freed Referring Unavailable Ghazoul, Apolinar Attending Unavailable Ghazoul, Apolinar Attending Unavailable Ghazoul, Apolinar Referring Unavailable Ghazoul, Apolinar Consulting Unavailable Fawwad, Freed Primary Care Unavailable Ghazoul, Apolinar Attending Unavailable Ghazoul, Paolinar Attending Unavailable Fawwad, [facility] Primary Care Unavailable Ghazoul, Apolinar Attending Unavailable Fawwad, Freed Referring Unavailable ALI, IMRAN I Attending Unavailable NADERER, TRINO Referring Unavailable NADERER, TRINO Primary Care Unavailable ALI, IMRAN I Referring Unavailable NADERER, TRINO Primary Care Unavailable ALI, IMRAN I Referring Unavailable NADERER, TRINO Primary Care Unavailable ALI, IMRAN I Referring Unavailable NADERER, TRINO Primary Care Unavailable FAWWAD, FREED Attending Unavailable FAWWAD, FREED Attending Unavailable FAWWAD, FREED Attending Unavailable Allergies Allergy Classification Reported Allergen(s) Allergy Type Date of Onset Reaction(s) Facility Acetaminophen (1 source) Acetaminophen Drug Allergy 4 [facility] Opioid Agonists (1 source) oxyCODONE Drug Allergy 4 [facility] Penicillins (antibiotic) (1 source) Penicillins Drug Allergy 4 [facility] Sulfonamides (antibiotic) (1 source) Sulfonamides (Antibiotic) Drug Allergy 4 [facility] (2 sources) cortisone; Translations: [cortisone] [facility] sources) Penicillins; Translations: [penicillins] Propensity to adverse reactions (disorder) 3 Itching [facility] Repository (1 source) sulfamethoxazole; Translations: [sulfamethoxazole ] Drug Allergy A[facility] Repository (6 sources) Sulfonamides (Antibiotic) Drug allergy (disorder) 3 Itching [facility] Repository (16 sources) sulfaSALAzine; Translations: [SULFASALAZINE] Drug Allergy 7 Itching [facility] (13 sources) Sulfonamides (Antibiotic) Propensity to adverse reactions to drug 3 Itching [facility] (5 sources) Penicillin Drug Allergy Unknown [facility] Other (5 sources) Substance with sulfonamide structure and antibacterial mechanism of action (substance) Drug allergy Unknown Adsame Other (6 sources) Sulfonamides (Antibiotic) Allergy to substance 3 [facility] (1 source) Sulfonamides (Antibiotic); Translations: [sulfa drugs] Propensity to adverse reactions to drug (disorder) [facility] Repository (2 sources) Acetaminophen; Translations: [acetaminophen] Drug Allergy 4 [facility] (2 sources) oxyCODONE; Translations: [oxycodone] Drug Allergy 4 [facility] (2 sources) Sulfonamides (Antibiotic) Drug allergy (disorder) 3 [facility] Repository (2 sources) Acetaminophen / oxyCODONE; Translations: [OXYCODONE-ACETAM INOPHEN] Drug Allergy 4 [facility] Repository Medications Current Medications Medication Drug Class(es) [...] 28 January, Active Ascorbic Acid / Collagen (6 [...] Start: 12-31-2022 take 1 tablet by stone every twenty-four hours in the morning fesoterodine (TOVIAZ) 8 mg tablet extended release 24 hr Take 1 tablet (8 mg total) by mouth in the morning. 0 12/31/2022 Active Flax Seed Oil (5 sources) Flax Seed Oil 12 00mg qd Active fumarate (4 sources) Start: 10-29-2023 take 1 tablet by stone th once daily Mfhaqac-Lhdw2-Kywfruo Fumarate Active 1 TAB PO Daily October 29, 2023 1:00am Start: 10-29-2023 take 1 tablet by stone th once daily Iehxojt-Biag4-Giencdl Fumarate Active 1 TAB PO Daily October [...] 1:00am Start: 10-29-2023 take 1 capsule by [facility] once daily, then take 2.5 capsules [...] Delmar e by mouth daily. 0 Active Jrtnqswx-Sev-Oj-Lycopen-Lute in (Complete Mv Adult 50 Plus) 0.4 mg-300 mcg- 250 mcg tablet (6 sources) Start: 05-05-2023 take 1 tablet by mouth once daily Xcrxjedu-Sat-Db-Lycopen-Lutein (Complete Mv Adult 50 Plus) 0.4 mg-300 [...] mg/3 mL) pen injector polyethylene glycol 3350 10764 mg powder for oral solution (6 sources) [...] Discontinued 0.25 MG SUBCUT every week 4.784 90 November 03, 2023 9:55am January 31, 2024 [...] 3 days. 10 tablet 0 06/30/2022 Active [id number] 200 actuat albuterol 0.09 mg/actuat metered dose [...] Cellulose (SURGICEL) topical pad polyethylene glycol 3350 317564 mg / potassium chloride 2970 mg / sodium bicarbonate 6740 mg / sodium chloride 5860 mg / sodium sulfate 43966 mg powder for oral solution (1 source) [...] Range Facility CBC AND AUTO DIFFon 03-02-20 ABSOLUTE BASOPHIL 0.0 X10E9/L Normal 0.0-0.2 [facility] Comment on above: Performed By: #### C BCA, CMP, THYR, 2132-05, 02412-7, ENAP, 29098-3, 5130-0, 87478-1 #### [facility] ([id number]) [address], [address] [place] [address] ABSOLUTE NEUTROPHIL 5.4 X10E9/L Normal 1.5-6.6 [facility] Comment on above: Performed By: #### C BCA, CMP, THYR, 2132-05, 68345-7, ENAP, 05773-9, 5130-0, 26452-5 #### [facility] ([id number]) [address], [address] [place] [address] Basophils/100 WBC (Bld) 0.4 % Normal [facility] Comment on above: Performed By: #### C BCA, CMP, THYR, 2131-, 71619-6, ENAP, 67200-3, 5130-0, 92785-7 #### [facility] ([id number]) [address], [address] [place] [address] Eosinophils (Bld) [#/Vol] 0.1 10*3/uL Normal 0.0-0.4 [facility] Comment on above: Performed By: #### C BCA, CMP, THYR, 2131-9, 66193-8, ENAP, 62686-9, 5130-0, 44668-6 #### [facility] ([id number]) [address] [place] [address] Eosinophils/100 WBC (Bld) 1.5 % Normal [facility] Comment on above: Performed By: #### C BCA, CMP, THYR, 2132-05, 95016-1, ENAP, 30259-8, 5130-0, 05895-3 #### [facility] ([id number]) [address] [place] [address] Erythrocyte distribution width (RBC) [Ratio] 15.1 % High 11.5-15.0 [facility] Comment on above: Performed By: #### C BCA, CMP, THYR, 2131-9, 84217-9, ENAP, 05408-8, 5130-0, 42317-5 #### [facility] ([id number]) [address] [place] [address] Hematocrit (Bld) [Volume fraction] 41.5 % Normal 35-47 [facility] Comment on above: Performed By: #### C BCA, CMP, THYR, 2131-9, 86406-1, ENAP, 84468-0, 5130-0, 26864-9 #### [facility] ([id number]) [address], [address] [place] [address] Hemoglobin (Bld) [Mass/Vol] 14.2 g/dL Normal 11.7-15.5 [facility] Comment on above: Performed By: #### C BCA, CMP, THYR, 2131-9, 69670-0, ENAP, 22272-5, 5130-0, 04383-3 #### [facility] ([id number]) [address], [address] [place] [address] Lymphocytes (Bld) [#/Vol] 1.8 10*3/uL Normal 1.0-3.5 [facility] Comment on above: Performed By: #### C BCA, CMP, THYR, 2131-9, 77369-4, ENAP, 50538-6, 5130-0, 48958-4 #### [facility] ([id number]) [address], [address] [place] [address] Lymphocytes/100 WBC (Bld) 22.4 % Normal [facility] Comment on above: Performed By: #### C BCA, CMP, THYR, 2131-9, 53626-5, ENAP, 85721-3, 5130-0, 50599-9 #### [facility] ([id number]) [address], [address] [place] [address] MCH (RBC) [Entitic mass] 29.3 pg Normal 27-34 [facility] Comment on above: Performed By: #### C BCA, CMP, THYR, 2131-9, 80825-6, ENAP, 99085-9, 5130-0, 74451-8 #### [facility] ([id number]) [address], [address] [place] [address] MCHC (RBC) [Mass/Vol] 34.2 g/dL Normal 32-36 [facility] Comment on above: Performed By: #### C BCA, CMP, THYR, 2131-9, 10257-2, ENAP, 00694-7, 5130-0, #### [facility] ([id number]) [address], [address] [place] [address] MCV (RBC) [Entitic vol] 86 fL Normal 80-100 [facility] Comment on above: Performed By: #### C BCA, CMP, THYR, 2131-9, 09603-7, ENAP, 86590-5, 5130-0, #### [facility] ([id number]) [address], [address] [place] [address] Monocytes (Bld) [#/Vol] 0.5 10*3/uL Normal 0-0.9 [facility] Comment on above: Performed By: #### C BCA, CMP, THYR, 2131-9, 72086-7, ENAP, 21370-5, 5130-0, #### [facility] ([id number]) [address], [address] [place] [address] Monocytes/100 WBC (Bld) 6.0 % Normal [facility] Comment on above: Performed By: #### C BCA, CMP, THYR, 2131-9, 10451-4, ENAP, 59160-1, 5130-0, #### [facility] ([id number]) [address] [address] Neutrophils/100 WBC (Bld) 69.7 % Normal [facility] Comment on above: Performed By: #### C BCA, CMP, THYR, 2131-9, 10864-2, ENAP, 44983-4, 5130-0, #### [facility] ([id number]) [address], [address] [place] [address] Platelet mean volume (Bld) [Entitic vol] 9.2 fL Normal 7-12 [facility] Comment on above: Performed By: #### C BCA, CMP, THYR, 2132-9, 05642-0, ENAP, 10135-8, 5130-0, 13097-6 #### [facility] ([id number]) [address], [address] [place] [address] Platelets (Bld) [#/Vol] 166 10*3/uL Normal 150-450 [facility] Comment on above: Performed By: #### C BCA, CMP, THYR, 2-9, 36133-9, ENAP, 54230-7, 5130-0, 33052-8 #### [facility] ([id number]) [address], [address] [place] [address] RBC COUNT 4.84 X10E12/L Normal 3.80-5.20 [facility] Comment on above: Performed By: #### C BCA, CMP, THYR, 2131-9, 05147-4, ENAP, 03142-3, 5130-0, 72946-8 #### [facility] ([id number]) [address], [address] [place] [address] WBC (Bld) [#/Vol] 7.8 10*3/uL Normal 4.0-11.0 [facility] Comment on above: Performed By: #### C BCA, CMP, THYR, 2-9, 98184-7, ENAP, 55503-1, 5130-0, 26607-2 #### [facility] ([id number]) [address], [address] [place] [address] COMPREHENSIVE METABOLIC PANE Jagdish 03-02-2024 Albumin [Mass/Vol] 4.1 g/dL Normal 3.2-5.3 [facility] Comment on above: Performed By: #### C BCA, CMP, THYR, 2-9, 16665-8, ENAP, 09378-7, 5130-0, 97356-3 #### [facility] ([id number]) [address], [address] [place] [address] ALP [Catalytic activity/Vol] 149 U/L High 39-130 [facility] Comment on above: Performed By: #### C BCA, CMP, THYR, 2132-9, 01346-3, ENAP, 61401-8, 5130-0, 14049-7 #### [facility] ([id number]) [address], [address] [place] [address] ALT [Catalytic activity/Vol] 39 U/L High 0-31 [facility] Comment on above: Performed By: #### C BCA, CMP, THYR, 2-9, 17880-9, ENAP, 19669-0, 5130-0, 23974-0 #### [facility] ([id number]) [address], [address] [place] [address] Anion gap [Moles/Vol] 8 mmol/L Normal 5-15 [facility] Comment on above: Performed By: #### C BCA, CMP, THYR, 2131-9, 18474-6, ENAP, 36381-6, 5130-0, 71534-0 #### [facility] ([id number]) [address], [address] [place] [address] AST [Catalytic activity/Vol] 34 U/L Normal 0-41 [facility] Comment on above: Performed By: #### C BCA, CMP, THYR, 2131-9, 25739-1, ENAP, 24240-4, 5130-0, 42118-9 #### [facility] ([id number]) [address], [address] [place] [address] Bilirubin [Mass/Vol] 0.5 mg/dL Normal 0.3-1.2 [facility] Comment on above: Performed By: #### C BCA, CMP, THYR, 2-9, 66124-6, ENAP, 68993-9, 5130-0, 72697-4 #### [facility] ([id number]) [address] [place] [address] Calcium [Mass/Vol] 9.4 mg/dL Normal 8.5-10.5 [facility] Comment on above: Performed By: #### C BCA, CMP, THYR, 2131-9, 77835-8, ENAP, 43876-9, 5130-0, 94720-4 #### [facility] ([id number]) [address] [place] [address] Chloride [Moles/Vol] 104 mmol/L Normal 98-109 [facility] Comment on above: Performed By: #### C BCA, CMP, THYR, 2131-, 12837-2, ENAP, 92019-6, 5130-0, 30294-1 #### [facility] ([id number]) [address], [address] [place] [address] CO2 [Moles/Vol] 29 mmol/L Normal 22-32 [facility] Comment on above: Performed By: #### C BCA, CMP, THYR, 2131-9, 94823-3, ENAP, 83204-5, 5130-0, 82311-9 #### [facility] ([id number]) [address], [address] [place] [address] Creatinine [Mass/Vol] 0.71 mg/dL Normal 0.40-1.00 [facility] Comment on above: Result Comment: METH OD TRACEABLE TO IDMS STANDARD Performed By: #### C BCA, CMP, THYR, 2131-9, 80731-1, ENAP, 14526-6, 5130-0, 25626-1 #### [facility] ([id number]) [address], [address] [place] [address] GFR/1.73 sq M.predicted among non-blacks MDRD (S/P/Bld) [Vol rate/Area] 90 mL/min/{1.73_m2} Normal >59 [facility] Comment on above: Result Comment: Reported eGFR is based on the CKD-EPI 2020 equation that does not use a race coefficient. Performed By: #### C BCA, CMP, THYR, 2132-05, 54837-8, ENAP, 38370-3, 5130-0, #### [facility] ([id number]) [address], [address] [place] [address] Glucose [Mass/Vol] 55 mg/dL Low 65-99 [facility] Comment on above: Performed By: #### C BCA, CMP, THYR, 2132-05, 78305-2, ENAP, 91241-6, 5130-0, #### [facility] ([id number]) [address], [address] [place] [address] Potassium [Moles/Vol] 4.4 mmol/L Normal 3.5-5.0 [facility] Comment on above: Performed By: #### C BCA, CMP, THYR, 2132-05, 03047-1, ENAP, 60200-1, 5130-0, #### [facility] ([id number]) [address], [address] [place] [address] Protein [Mass/Vol] 6.9 g/dL Normal 6.0-8.0 [facility] Comment on above: Performed By: #### C BCA, CMP, THYR, 2132-05, 64880-0, ENAP, 58236-8, 5130-0, 36408-4 #### [facility] ([id number]) [address] [place] [address] Sodium [Moles/Vol] 141 mmol/L Normal 134-146 [facility] Comment on above: Performed By: #### C BCA, CMP, THYR, 2132-05, 46901-3, ENAP, 98658-5, 5130-0, #### [facility] ([id number]) [address], [address] [place] [address] Urea nitrogen [Mass/Vol] 12 mg/dL Normal 5-27 [facility] Comment on above: Performed By: #### C BCA, CMP, THYR, 2132-9, 53916-6, ENAP, 38693-5, 5130-0, 67902-4 #### [facility] ([id number]) [address] [place] [address] Chromatin Ab Qlon 03-02-2024 CHROMATIN AB IGG <0.2 Normal <1.0 [facility] Comment on above: Performed By: #### C BCA, CMP, THYR, 2132-9, 36998-9, ENAP, 47630-8, 5130-0, 04132-7 #### [facility] ([id number]) [address] [place] [address] Copper [Mass/Vol]on 03-02-20 24 COPPER 88 ug/dL Normal 80-155 [facility] Comment on above: Result Comment: NOTE This test was developed and its performance characteristics determined by [facility] [place] ([facility]). It has not been cleared or approved by the FDA. [facility] is regulated under CLIA as qualified to perform high-complexity testing. This test is used for clinical purposes. It should not be regarded as investigational or for research. Test Performed By: [facility] [address] [place] [address] Distribution Spec: Trace Pelayo III, M.D. CLIA #[id number] DNA double strand Ab Qn (S)o n 03-02-2024 DOUBLE STRANDED DNA <1 Normal <5 [facility] Comment on above: Result Comment: Interpretation-------- <5 Negative 5-9 Indeterminate >9 Positive Performed By: #### C BCA, CMP, THYR, 2131-9, 37057-3, ENAP, 16237-8, 5130-0, 43071-9 #### [facility] ([id number]) [address], [address] [place] [address] LARISSA PANELon 03-02-2024 ANTI-LIMA AB IGG <0.2 Normal <1.0 [facility] Comment on above: Performed By: #### C BCA, CMP, THYR, 2131-9, 70028-7, ENAP, 28064-6, 5130-0, 94059-5 #### [facility] ([id number]) [address], [address] [place] [address] JO1 ANTIBODY <0.2 Normal <1.0 [facility] Comment on above: Performed By: #### C BCA, CMP, THYR, 9, 95778-4, ENAP, 28902-2, 5130-0, 70593-7 #### [facility] ([id number]) [address], [address] [place], [place] [address] POWER CRANE OPERATOR ANTIBODY IGG 2.0 AI High <1.0 [facility] Comment on above: Performed By: #### C BCA, CMP, THYR, 2131-9, 24993-7, ENAP, 91639-2, 5130-0, 81019-8 #### [facility] ([id number]) [address], [address] [place] [address] SCL 70 ANTIBODY <0.2 Normal <1.0 [facility] Comment on above: Performed By: #### C BCA, CMP, THYR, 2131-9, 55215-3, ENAP, 94904-9, 5130-0, 48248-1 #### [facility] ([id number]) [address], [address] [place] [address] SSA ANTIBODY <0.2 Normal <1.0 [facility] Comment on above: Performed By: #### C BCA, CMP, THYR, 2131-9, 84655-8, ENAP, 35538-6, 5130-0, 83170-2 #### [facility] ([id number]) [address], [address] [place] [address] SSB ANTIBODY <0.2 Normal <1.0 [facility] Comment on above: Performed By: #### C BCA, CMP, THYR, 2131-9, 42911-4, ENAP, 30941-4, 5130-0, 62533-2 #### [facility] ([id number]) [address], [address] [place] [address] Nuclear Ab IA Ql (S)on 03-02 RICARDO Screen w/reflex Positive Abnormal NEG [facility] Comment on above: Result Comment: Testing performed using multiplex flow immunoassay. Eleven different antigens associated with systemic autoimmune diseases (dsDNA,Sm,Sm/POWER CRANE OPERATOR,POWER CRANE OPERATOR,Chromatin, SSA,SSB,Michaelle-1,Scl70,Ribo P,Centromere B) are included in this screening test. Performed By: #### C BCA, CMP, THYR, 2131-, 12624-8, ENAP, 20397-2, 5130-0, 87929-9 #### [facility] ([id number]) [address], [address] [place] [address] Lima extractable nuclear Ab +Ribonucleoprotein extractable nuclear IgG Qn (S)on 03-02-2024 LIMA/POWER CRANE OPERATOR AB IGG <0.2 Normal <1.0 [facility] Comment on above: Performed By: #### C BCA, CMP, THYR, 2131-, 08071-1, ENAP, 84251-7, 5130-0, 25031-4 #### [facility] ([id number]) [address], [address] [place] [address] THYROID PROFILEon 03-02-2024 Free T4 [Mass/Vol] 0.97 ng/dL Normal 0.61-1.60 [facility] Comment on above: Performed By: #### C BCA, CMP, THYR, 2-9, 32684-4, ENAP, 83670-7, 5130-0, 96812-2 #### [facility] ([id number]) [address], [address] [place] [address] TSH 1.16 uIU/mL Normal 0.49-4.67 [facility] Comment on above: Performed By: #### C BCA, CMP, THYR, 2131-9, 32594-2, ENAP, 59353-7, 5130-0, 19870-2 #### [facility] ([id number]) [address], [address] [place] [address] VITAMIN B12on 03-02-2024 Cobalamin (Vitamin B12) [Mass/Vol] 582 pg/mL Normal 180-914 [facility] Comment on above: Performed By: #### C BCA, CMP, THYR, 2131-9, 56139-7, ENAP, 00991-2, 5130-0, 03356-4 #### [facility] ([id number]) [address], [address] [place] [address] VITAMIN E, SER/PLon 03-02-20 24 VIT E(ALPHA-TOCOPHEROL) 13.2 mg/L Normal 5.5-18.0 [facility] Comment on above: Result Comment: NOTE This test was developed and its performance characteristics determined by [facility]. It has not been cleared or approved by the US Food and Drug Administration. This test was performed in a CLIA certified laboratory and is intended for clinical purposes. Performed By: #### C BCA, CMP, THYR, 2-9, 35794-1, ENAP, 97695-5, 5130-0, 34810-4 #### [facility] ([id number]) [address], [address] [place] [address] VIT E(GAMMA-TOCOPHEROL) 0.6 mg/L Normal 0.0-6.0 [facility] Comment on above: Result Comment: NOTE Performed By: [facility] [address] [place] [address] Distribution Spec: Cornell Sánchez MD, PhD CLIA Number: [id number] Performed By: #### C BCA, CMP, THYR, 2132-9, 54586-5, ENAP, 33651-4, 5130-0, 94792-6 #### [facility] ([id number]) [address], [address] [place] [address] Plastic Surgery Visit Report on 03-01-2024 Plastic Surgery Visit Report [facility] Plastic Reconstructive Surgery [address], [address] [place] [address] OFFICE VISIT Date of Service: 03/01/24 MR#: [id number] Acct: [id number] Name: BERENICE NOLASCO Rep #: [id number] : 1950 Provider: Dr. Apolinar flores MD Age/Sex: 73/F Location: [facility] Status: Signed Intake Vital Signs 02/16/24 13:27 [...] 10 mg PO HS 05/05/23 03/01/24 History apqafkyj-laq-fqgea acid 0.4 1 tab PO DAILY 05/05/23 [...] reduction Z98.890 S/P breast reconstruction, right Z98.890 [facility] Medical History (Updated 12/30/23 @ [...] daily. Occa (more content not included)... Normal [facility] Plastic Surgery Visit Report on 02-16-2024 Plastic Surgery Visit Report [facility] Reconstructive Surgery [address] [place], [place] [address] OFFICE VISIT Date of Service: 02/16/24 MR#: [id number] Acct: [id number] Name: BERENICE NOLASCO Rep #: [id number] : 1950 Provider: Dr. Apolinar flores MD Age/Sex: 73/F [place] [facility] Status: Signed Intake Vital Signs 02/02/24 14:20 [...] 10 mg PO HS 05/05/23 02/16/24 History fkylqamq-vwa-uhclh acid 0.4 1 tab PO DAILY 05/05/23 [...] reduction Z98.890 S/P breast reconstruction, right Z98.890 [facility] Medical History (Updated 12/30/23 @ [...] disease Soci (more content not included)... Normal [facility] Plastic Surgery Visit Report on 02-02-2024 Plastic Surgery Visit Report [facility] Plastic Reconstructive Surgery [address], [address] [place] [address] OFFICE VISIT Date of Service: 02/02/24 MR#: [id number] Acct: [id number] Name: BERENICE NOLASCO Rep #: [id number] : 1950 Provider: Dr. Apolinar flores MD Age/Sex: 73/F Location: [facility] Status: Signed Intake Vital Signs [...] 10 mg PO HS 05/05/23 02/02/24 History fwvzzwzy-oxk-xviuh acid 0.4 1 tab PO DAILY 05/05/23 [...] reduction Z98.890 S/P breast reconstruction, right Z98.890 [facility] Medical History (Updated 12/30/23 @ [...] History (Updated 05/05/23 @ 14:24 by Elin Bcekwith) Mother Heart disease Father Heart d (more content not included)... Normal [facility] Plastic Surgery Visit Report on 01-26-2024 Plastic Surgery Visit Report [facility] Plastic Reconstructive Surgery [address], [address] [place] [address] OFFICE VISIT Date of Service: 01/26/24 MR#: [id number] Acct: [id number] Name: BERENICE NOLASCO Rep #: [id number] : 1950 Provider: Dr. Apolinar flores MD Age/Sex: 73/F Location[place] [facility] Status: Signed Intake Vital Signs 12/14/23 [...] patient in pain?: No (throat and chest shearing machine tender. ) Allergies acetaminophen (From Percocet) Allergy [...] 10 mg PO HS 05/05/23 01/26/24 History sdvtambf-pii-sqdkt acid 0.4 1 tab PO DAILY 05/05/23 [...] admits to eating chicken noodle soup from [employer] as well as pulled pork which may [...] breast reconstruction, right Z98.890 Breast asymmetry between [place] breast and reconstructed breast N65.1 Status post breast reduction Z98.890 [facility] Medical History (Updated 12/30/23 @ [...] Breast c (more content not included)... Normal [facility] Discharge Instructionon 05 Discharge Instruction [facility] Medical Records Department [address] [place] [address] Instructions for Home/Discharge Instructions 01/21/24 1037 MR#: [id number] Acct: [id number] Name: BERENICE NOLASCO Rep #: [id number] : 1950 73 From: Apolinar Henry MD PCP: Shaikh Villagran Status:REG SD Discharge Instructions Dressing / Incision Additional Dressing/Incision [...] Henry MD CC: Shaikh Tyshawn Signed Normal [facility] Operative Reporton 4 Operative Report [facility] Medical Records Department [address] [place] [address] Operative Report 01/21/24 1040 MR#: [id number] Acct: [id number] Name: BERENICE NOLASCO Rep #: [id number] : 1950 73 From: Apolinar Henry MD PCP: Shaikh Villagran Status:[facility] Location: [place] [address] Problems Associated Problem List Diagnoses (1) S/P breast reconstruction, right: (2) History of cancer of right breast: (3) Breast hypertrophy: (4) Breast asymmetry between [place] breast and reconstructed breast: Report of Operation Date of Procedure: 01/21/24 Pre-Operative Diagnosis: 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 She has previously undergone right breast reconstruction with a tissue community coordinator with a remote port. She understands that [...] seating of the plug in the tissue community coordinator. The tube is checked for appropriate location [...] Documentation VTE Mechan Device Prophylaxis: SCD's 01/21/24 0254 Cosigner Signature (if applicable): CC: Dr. Apolinar Henry MD; Shaikh Tyshawn Signed Normal [facility] Surgery Specimen Level [place] 01-21-2024 Surgery Specimen Level IV Patient Age/Sex Location Account Attending Physician MARITZABERENICE STANLEY 73/[place] [facility] [id number] Apolinar Henry MD Specimen: [id number] Received: 01/21/24 Status: PEE [place] Num: [id number] Spec Type: MAMOPLASTY Subm Dr: Dr. Apolinar Henry MD HEADER OPERATION: Left breast reduction for symmetry PRE-OP DIAGNOSIS: Status post breast reconstruction, history of right breast cancer, breast hypertrophy, breast asymmetry TISSUE SUBMITTED: Left breast tissue 96 gm MICROSCOPIC DIAGNOSIS Left breast, reduction mammoplasty: Fibrocystic change. Focal intraductal hyperplasia without atypia. Banal microcalcifications. Focal adenosis. Skin with no pathologic change. / 01/24/2024 MICROSCOPIC DESCRIPTION Slides are reviewed. GROSS [...] fibrous areas. No mass lesion is identified. Mold Capper sections are submitted in six cassettes. Cassette 1 contains the skin piece. SJ: 01/21/24 TC:5 CPT: 13791 Patient Age/Sex Location Account Attending Physician BERENICE NOLASCO 73/[place] [facility] [id number]. Apolinar Henry MD Signed (signature on file) Dr. Steve Pichardo DO 01/24/24 1306 Normal [facility] Comment on above: Performed By: #### P SUIV #### [facility] [address] [place], [place], [id number] Plastic Surgery Visit Report on 01-05-2024 Plastic Surgery Visit Report [facility] Plastic Reconstructive Surgery [address], [address] [place] [address] OFFICE VISIT Date of Service: 01/05/24 MR#: [id number] Acct: [id number] Name: BERENICE NOLASCO Rep #: [id number] : 1950 Provider: Dr. Apolinar flores MD Age/Sex: 73/F Location[place] [facility] Status: Signed Intake Vital Signs 12/14/23 [...] mg PO HS 05/05/23 [History Confirmed 01/05/24] modwfwvi-akv-hquwm acid 0.4 mg-lycopene 300 mcg-lutein 250 mcg [...] History (Updated 05/05/23 @ 14:24 by Elin Becwkith) Mother Heart disease Father Heart disease Social [...] postoperative instructi (more content not included)... Normal [facility] Basic Metabolic Profile (BMP )on 12-22-2023 BUN/CRE 20.5 RATIO High 10-20 [facility] Comment on above: Order Comment: pre a dmission testing for surgery Performed By: #### L 500.2500, L100.0500 #### [facility] [address] [place], [address] CA,Total 9.1 mg/dL Normal 8.5-10.1 [facility] Comment on above: Order Comment: pre a dmission testing for surgery Performed By: #### L 500.2500, L100.0500 #### [facility] [address] [place], [address] Chloride [Moles/Vol] 108 mmol/L High 98-107 [facility] Comment on above: Order Comment: pre a dmission testing for surgery Performed By: #### L 500.2500, L100.0500 #### [facility] [address] [place], [address] CO2 [Moles/Vol] 27.0 mmol/L Normal 21.0-32.0 [facility] Comment on above: Order Comment: pre a dmission testing for surgery Performed By: #### L 500.2500, L100.0500 #### [facility] [address] [place], [address] Creatinine [Mass/Vol] 0.68 mg/dL Normal 0.55-1.02 [facility] Comment on above: Order Comment: pre a dmission testing for surgery Result Comment: The validity of the calculated GFR GFRAA in patients over 70 years has not been determined. Clinical correlation is essential. Performed By: #### L 500.2500, L100.0500 #### [facility] [address] [place], [address] EST GFR - AA 108 mL/min Normal >60 [facility] Comment on above: Order Comment: pre a dmission testing for surgery Result Comment: Afri can [place] GFR Calc Performed By: #### L 500.2500, L100.0500 #### [facility] [address] [place], [address] GAP 3 Low 5-15 [facility] Comment on above: Order Comment: pre a dmission testing for surgery Performed By: #### L 500.2500, L100.0500 #### [facility] [address] [place], [address] GFR/1.73 sq M.predicted among non-blacks MDRD (S/P/Bld) [Vol rate/Area] 90 mL/min/{1.73_m2} Normal >60 [facility] Comment on above: Order Comment: pre a dmission testing for surgery Result Comment: Non- GFR Calc Performed By: #### L 500.2500, L100.0500 #### [facility] [address] [place], [address] Glucose [Mass/Vol] 88 mg/dL Normal 74-[address] [facility] Comment on above: Order Comment: pre a dmission testing for surgery Performed By: #### L 500.2500, L100.0500 #### [facility] [address] [place], [address] Potassium [Moles/Vol] 4.6 mmol/L Normal 3.5-5.1 [facility] Comment on above: Order Comment: pre a dmission testing for surgery Performed By: #### L 500.2500, L100.0500 #### [facility] [address] [place], [address] Sodium [Moles/Vol] 138 mmol/L Normal 136-[address] [facility] Comment on above: Order Comment: pre a dmission testing for surgery Performed By: #### L 500.2500, L100.0500 #### [facility] [address] [place], [address] Urea nitrogen [Mass/Vol] 14 mg/dL Normal 7-18 [facility] Comment on above: Order Comment: pre a dmission testing for surgery Performed By: #### L 500.2500, L100.0500 #### [facility] [address] [place], [address] Basophil percentageOrdered B y: Apolinar Russyuko on 12-22-2023 Chloride [Moles/Vol] 108 mmol/L 98-107 [facility] Glucose [Mass/Vol] 88 mg/dL 74-[address] [facility] Hemoglobin (Bld) [Mass/Vol] 14.1 g/dL 12.0-15.0 [facility] Potassium [Moles/Vol] 4.6 mmol/L 3.5-5.1 [facility] Sodium [Moles/Vol] 138 mmol/L 136-[address] [facility] WBC (Bld) [#/Vol] 8.1 10*3/uL 4.4-11.[address] [facility] CBC-Complete Blood Cnt No Di ffon 12-22-2023 Erythrocyte distribution width (RBC) [Ratio] 13.9 % Normal 11.6-14.6 [facility] Comment on above: Order Comment: Comme nts: preadmission testing for surgery Performed By: #### L 500.2500, L100.0500 #### [facility] [address] [place], [address] Hematocrit (Bld) [Volume fraction] 43.9 % Normal 37-47 [facility] Comment on above: Order Comment: Comme nts: preadmission testing for surgery Performed By: #### L 500.2500, L100.0500 #### [facility] [address] [place], [address] Hemoglobin (Bld) [Mass/Vol] 14.1 g/dL Normal 12.0-15.0 [facility] Comment on above: Order Comment: Commnicki nts: preadmission testing for surgery Performed By: #### L 500.2500, L100.0500 #### [facility] [address] [place], [address] MCH (RBC) [Entitic mass] 28.4 pg Normal 27.0-32.0 [facility] Comment on above: Order Comment: Wei nts: preadmission testing for surgery Performed By: #### L 500.2500, L100.0500 #### [facility] [address] [place], [address] MCHC (RBC) [Mass/Vol] 32.1 g/dL Normal 32-36 [facility] Comment on above: Order Comment: Wei nts: preadmission testing for surgery Performed By: #### L 500.2500, L100.0500 #### [facility] [address] [place], [address] MCV (RBC) [Entitic vol] 88.3 fL Normal 81-99 [facility] Comment on above: Order Comment: Wei nts: preadmission testing for surgery Performed By: #### L 500.2500, L100.0500 #### [facility] [address] [place], [address] Platelet mean volume (Bld) [Entitic vol] 10.8 fL Normal 6.2-12.0 [facility] Comment on above: Order Comment: Wei nts: preadmission testing for surgery Performed By: #### L 500.2500, L100.0500 #### [facility] [address] [place], [address] Platelets (Bld) [#/Vol] 188 10*3/uL Normal 150-450 [facility] Comment on above: Order Comment: Commnicki nts: preadmission testing for surgery Performed By: #### L 500.2500, L100.0500 #### [facility] [address] [place], [address] RBC (Bld) [#/Vol] 4.97 10*6/uL Normal 4.2-5.4 [facility] Comment on above: Order Comment: Commnicki nts: preadmission testing for surgery Performed By: #### L 500.2500, L100.0500 #### [facility] [address] [place], [address] RDW SD 44.7 fl High 35.1-43.9 [facility] Comment on above: Order Comment: Wei nts: preadmission testing for surgery Performed By: #### L 500.2500, L100.0500 #### [facility] [address] [place], [address] WBC (Bld) [#/Vol] 8.1 10*3/uL Normal 4.4-11.[address] [facility] Comment on above: Order Comment: Wei nts: preadmission testing for surgery Performed By: #### L 500.2500, L100.0500 #### [facility] [address] [place], [address] Determination of erythrocyte mean corpuscular volume (MCV)Ordered By: Apolinar Henry on 12-22-2023 MCV (RBC) [Entitic vol] 88.3 fL 81-99 [facility] Erythrocyte distribution wid th ratioOrdered By: Apolinar Henry on 12-22-2023 Erythrocyte distribution width (RBC) [Ratio] 13.9 % 11.6-14.6 [facility] Erythrocyte distribution wid th standard deviationOrdered By: Apolinar Henry on 12-22-2023 Erythrocyte distribution width (RBC) [Entitic vol] 44.7 fL 35.1-43.9 [facility] Hematocrit Auto (Bld) [Volum e fraction]Ordered By: Apolinar Henry on 12-22-2023 Hematocrit (Bld) [Volume fraction] 43.9 % 37-47 [facility] - Chemistry and C hemistry - challengeOrdered By: Apolinar Henry on 12-22-2023 CO2 [Moles/Vol] 27.0 mmol/L 21.0-32.0 [facility] Urea nitrogen/Creatinine [Mass ratio] 20.5 mg/mg 10- [facility] - Hematology and Cell countsOrdered By: Apolinar Henry on 12-22-2023 MCH (RBC) [Entitic mass] 28.4 pg 27.0-32.0 [facility] MCHC (RBC) [Mass/Vol] 32.1 g/dL 32- [facility] Platelet mean volume (Bld) [Entitic vol] 10.8 fL 6.2-12.0 [facility] Platelets (Bld) [#/Vol] 188 10*3/uL 150-450 [facility] No Panel InformationOrdered By: Apolinar Henry on 12-22-2023 Estimated GFR (MDRD) Amer 108 mL/min >60 [facility] Comment on above: GFR Calc Estimated GFR (MDRD) Non-Af Amer 90 mL/min >60 [facility] Comment on above: Non- GFR Calc Plastic Surgery Visit Report on 12-22-2023 Plastic Surgery Visit Report [facility] [address], [address] [place] [address] OFFICE VISIT Date of Service: 12/22/23 MR#: [id number] Acct: [id number] Name: BERENICE NOLASCO Rep #: [id number] : 1950 Provider: Dr. Apolinar flores MD Age/Sex: 73/F Location: [facility] Status: Signed Intake Vital Signs [...] mg PO HS 05/05/23 [History Confirmed 12/22/23] pwfhslsd-eov-dafny acid 0.4 mg-lycopene 300 mcg-lutein 250 mcg tablet (Complete Multivitamin Adult 50 Plus) 1 tab PO DAILY 05/05/23 [History Confirmed 12/22/23] semaglutide 0.25 mg or 0.5 mg (2 mg/3 mL) subcutaneous pen injector (Ozempic) 0.25 mg subcut QWEEK 05/05/23 [History Confirmed 12/22/23] simvastatin 20 mg tablet 20 mg PO DAILY 05/05/23 [History Confirmed 04/10/24] Nurse's Note: pt here pre op #1 left breast reduction/port removal right- [facility] Medical History (Updated 05/05/23 @ [...] Level of (more content not included)... Normal [facility] RBC Auto (Bld) [#/Vol]Ordere d By: Apolinar Henry on 12-22-2023 RBC (Bld) [#/Vol] 4.97 10*6/uL 4.2-5.4 [facility] Serum or plasma calcium adalgisa urement (mass/volume)Ordered By: Apolinar Henry on 12-22-2023 Calcium [Mass/Vol] 9.1 mg/dL 8.5-10.[address] [facility] Serum or plasma creatinine m easurement (mass/volume)Ordered By: Apolinar Henry on 12-22-2023 Creatinine [Mass/Vol] 0.68 mg/dL 0.55-1.02 [facility] Comment on above: The validity of the calculated GFR & GFRAA in patients over 70 years has not been determined. Clinical correlation is essential. Serum or plasma urea nitroge n measurement (mass/volume)Ordered By: Apolinar Henry on 12-22-2023 Urea nitrogen [Mass/Vol] 14 mg/dL 7-18 [facility] Thin prep Papanicolaou smear with manual screeningOrdered By: Apolinar Henry on 12-22-2023 Thin prep Papanicolaou smear with manual screening 3 5-15 [facility] Plastic Surgery Visit Report on 12-14-2023 Plastic Surgery Visit Report [facility] Plastic Reconstructive Surgery [address], [address] [place] [address] OFFICE VISIT Date of Service: 12/14/23 MR#: [id number] Acct: [id number] Name: BERENICE NOLASCO Rep #: [id number] : 1950 Provider: Dr. Apolinar flores MD Age/Sex: 73/F Location: [facility] Status: Signed Intake Vital Signs [...] mg PO HS 05/05/23 [History Confirmed 12/14/23] nectagwi-avi-luuzt acid 0.4 mg-lycopene 300 mcg-lutein 250 mcg [...] future surgery Left breast reduction, removal right community coordinator pot. [facility] Medical History (Updated 05/05/23 @ [...] Exam Details The patient's right breast tissue community coordinator is in good position and the port [...] remove the port on the right tissue community coordinator which has the capability of functioning as a permanent implant. The surgery would be done as an outpatient under general anesthetic. Const General: cooperative and healthy appearing Nutritional Appearance: overweight Orientation: alert [facility] Head: normal to inspection Eyes General: appearance normal, both eyes and all related structures Neck Neck: normal visual inspection Neuro General: patient alert Other: Slightly unsteady gait (more content not included)... Normal [facility] MR BRAIN W WO CONTon 024 MR [...] Kwon DO on 11/19/2023 10:48 AM Normal [facility] Surgery Office/Clinic Noteon 10-11-2023 Surgery Office/Clinic [...] breast cancer History of colonoscopy with polypectomy NC (myocardial infarction) (2013) Morbid obesity with body [...] catheterization (07/2014) Comments: HAD HEART CATH AFTER NC DURING KNEE SCOPE. NO STENTS WERE PLACED [...] cancer: Aunt/Uncle. (more content not included)... Normal [facility] Urology Office/Clinic Noteon 09-01-2023 Urology Office/Clinic [...] breast cancer History of colonoscopy with polypectomy NC (myocardial infarction) (2013) Morbid obesity with body [...] by Kevin Joaquin 09/01/23 12:02 EST Normal [facility] Surgery Office/Clinic Noteon 07-20-2023 Surgery Office/Clinic [...] inguinal, left History of colonoscopy with polypectomy NC (myocardial infarction) (2013) Morbid obesity with body [...] Emely Zendejas PA-C 07/21/2023 08:27 EST Normal [facility] Operative Reporton Operative Report Indication for Surge ry Patient is a 73 year old female with a symptomatic reducible left inguinal hernia Preoperative Diagnosis Symptomatic left inguinal hernia Postoperative Diagnosis same Operation Robotic left inguinal hernia repair Surgeon(s) Asia Zendejas PA-C Anesthesia Hempfling 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 The hernia sac was reduced. Adllas's ligament was identified medially. Bard 3D mid [...] Jovan Betancourt MD 07/01/23 10:19 EDT Normal [facility] Plastic Surgery Visit Report on 06-30-2023 Plastic Surgery Visit Report [facility] Plastic Reconstructive Surgery [address], [address] [place] [address] OFFICE VISIT Date of Service: 06/30/23 MR#: [id number] Acct: [id number] Name: BERENICE NOLASCO Rep #: [id number] : 1950 Provider: Dr. Apolinar flores MD Age/Sex: 73/F [place] [facility] [place]: Signed Intake Vital Signs 05/05/23 14:25 [...] Reasons: preop #1 left breast red/ right community coordinator port Chief Complaint: left breast red and [...] mg PO HS 05/05/23 [History Confirmed 06/30/23] adwybnry-hgg-zlrcs acid 0.4 mg-lycopene 300 mcg-lutein 250 mcg [...] HPI preop #1 left breast red/ right community coordinator port Details: Berenice comes in for preliminary [...] Z85.3 Breast hypertrophy N62 Breast asymmetry between [place] breast and reconstructed breast N65.1 Assessment (more content not included)... Normal [facility] .eGFRon 06-01-2023 GFR/1.73 sq M.predicted MDRD (S/P/Bld) [Vol rate/Area] mL/min/{1.73_m2} Normal >=60 [facility] Comment on above: Order Comment: Order [...] years Performed By: #### E GFR #### [place] [address] CBC w/ Diffon 06-01-2023 Erythrocyte distribution width (RBC) [Ratio] 14.9 % High 11.6-14.8 [facility] Comment on above: Performed By: #### C BC #### [place] [address] Hematocrit (Bld) [Volume fraction] 41.0 % Normal 36.0-46.0 [facility] Comment on above: Performed By: #### C BC #### [place] [address] Hemoglobin (Bld) [Mass/Vol] 13.8 g/dL Normal 12.0-16.0 [facility] Comment on above: Performed By: #### C BC #### [place] [address] MCH (RBC) [Entitic mass] 28.6 pg Normal 27.0-35.0 [facility] Comment on above: Performed By: #### C BC #### [place] [address] MCHC 33.7 % Normal 31.0-37.0 [facility] Comment on above: Performed By: #### C BC #### [place] [address] MCV (RBC) [Entitic vol] 85.0 fL Normal 80.0-100.0 [facility] Comment on above: Performed By: #### C BC #### [place] [address] Platelet 180 x10*3/mcL Normal 150-450 [facility] Comment on above: Performed By: #### C BC #### [facility] [address] [place] [address] Platelet mean volume (Bld) [Entitic vol] 8.6 fL Normal 7.5-11.5 [facility] Comment on above: Performed By: #### C BC #### [place] [address] RBC 4.82 x10*6/mcL Normal 3.80-5.20 [facility] Comment on above: Performed By: #### C BC #### [place] [address] WBC 8.6 x10*3/mcL Normal 4.5-11.0 [facility] Comment on above: Performed By: #### C BC #### [place] [address] CMPon 06-01-2023 Albumin [Mass/Vol] 4.1 g/dL Normal 3.7-5.3 [facility] Comment on above: Performed By: #### C OMP #### [place] [address] Albumin/Globulin [Mass ratio] 1.5 {ratio} Normal 1.1-2.2 [facility] Comment on above: Performed By: #### C OMP #### [place] [address] Alk Phos 130 IU/L High 34-104 [facility] Comment on above: Performed By: #### C OMP #### [place] [address] ALT [Catalytic activity/Vol] 37 U/L Normal 7-52 [facility] Comment on above: Performed By: #### C OMP #### [place] [address] Anion gap [Moles/Vol] 10 mmol/L Normal 7-17 [facility] Comment on above: Performed By: #### C OMP #### [place] [address] AST [Catalytic activity/Vol] 31 U/L Normal 13-39 [facility] Comment on above: Performed By: #### C OMP #### [place] [id number] Bili Total 0.6 mg/dL Normal 0.3-1.0 [facility] Comment on above: Performed By: #### C OMP #### [place] [address] Calcium [Mass/Vol] 9.4 mg/dL Normal 8.6-10.3 [facility] Comment on above: Performed By: #### C OMP #### [place] [address] Chloride 103 IU/L Normal 98-107 [facility] Comment on above: Performed By: #### C OMP #### [place] [address] CO2 [Moles/Vol] 28 mmol/L Normal 21-31 [facility] Comment on above: Performed By: #### C OMP #### [place] [address] Creatinine [Mass/Vol] 0.79 mg/dL Normal 0.60-1.20 [facility] Comment on above: Performed By: #### C OMP #### [place] [address] Glucose [Mass/Vol] 108 mg/dL High 70-99 [facility] Comment on above: Performed By: #### C OMP #### [place] [address] Potassium [Moles/Vol] 4.2 mmol/L Normal 3.4-4.8 [facility] Comment on above: Performed By: #### C OMP #### [place] [address] Protein [Mass/Vol] 6.8 g/dL Normal 6.0-8.3 [facility] Comment on above: Performed By: #### C OMP #### [place] [address] Sodium [Moles/Vol] 137 mmol/L Normal 136-145 [facility] Comment on above: Performed By: #### C OMP #### [address] [address] Urea nitrogen [Mass/Vol] 17 mg/dL Normal 7-25 [facility] Comment on above: Performed By: #### C OMP #### [place] [address] Urea nitrogen/Creatinine [Mass ratio] 21.5 mg/mg High 10.0-20.0 [facility] Comment on above: Performed By: #### C OMP #### [place] [address] Diff Autoon 06-01-2023 Baso Absolute 0.0 x10*3/mcL Normal 0.0-0.2 [facility] Comment on above: Performed By: #### C OMP #### [place] [address] Basophils/100 WBC (Bld) 0.3 % Normal 0.0-1.5 [facility] Comment on above: Performed By: #### C OMP #### [place] [address] Eos Absolute 0.1 x10*3/mcL Normal 0.0-0.4 [facility] Comment on above: Performed By: #### C OMP #### [place] [address] Eosinophils/100 WBC (Bld) 1.1 % Normal 0.0-5.4 [facility] Comment on above: Performed By: #### C OMP #### [place] [address] Lymph Absolute 2.0 x10*3/mcL Normal 1.0-4.8 [facility] Comment on above: Performed By: #### C OMP #### [place] [address] Lymphocytes/100 WBC (Bld) 23.1 % Low 27.2-40.8 [facility] Comment on above: Performed By: #### C OMP #### [place] [address] Mcnairy Absolute 0.4 x10*3/mcL Normal 0.1-1.1 [facility] Comment on above: Performed By: #### C OMP #### [address] [address] Monocytes/100 WBC (Bld) 5.1 % Normal 3.7-11.9 [facility] Comment on above: Performed By: #### C OMP #### [address] [address] Neutro Absolute 6.1 x10*3/mcL Normal 1.8-7.7 [facility] Comment on above: Performed By: #### C OMP #### [place] [address] Neutro Auto 70.4 % Normal 47.2-70.8 [facility] Comment on above: Performed By: #### C OMP #### [address] [address] Plastic Surgery Visit Report on 05-05-2023 Plastic Surgery Visit Report [facility] Plastic [facility]constructive Surgery [address], [address] [place] [address] OFFICE VISIT Date of Service: 05/05/23 MR#: [id number] Acct: [id number] Name: BERENICE NOLASCO Rep #: [id number] : 1950 Provider: Dr. Apolinar flores MD Age/Sex: 73/F Location: [facility] Status: Signed Intake Vital Signs 05/05/23 14:25 Height 5 ft 6 in Weight: 217 lb BMI 35.0 BP 120/78 Blood Pressure Location Lt brachial Position Sitting Respiration 16 Pulse 70 Pulse Source Monitor Temp 97.7 F L Temp Source Temporal Pulse Oximetry (%) 96 Oxygen Delivery Method room air Intake Visit Reasons: Consult Chief Complaint: Right breast reconsruction consult Food Service Aide Required: No Accompanied by: Is patient in [...] mg PO HS 05/05/23 [History Confirmed 05/05/23] dqironbn-mkt-wwypk acid 0.4 mg-lycopene 300 mcg-lutein 250 mcg tablet (Complete Multivitamin Adult 50 Plus) 1 tab PO DAILY 05/05/23 [History Confirmed 05/05/23] semaglutide 0.25 mg or 0.5 mg (2 mg/3 mL) subcutaneous pen injector (Ozempic) 0.25 mg subcut QWEEK 05/05/23 [History Confirmed 05/05/23] simvastatin 20 mg tablet 20 mg PO DAILY 05/05/23 [History Confirmed 05/05/23] PFS Medical History (Updated 05/05/23 @ 15:33 by [...] after having undergone reconstruction with a tissue community coordinator. Her initial right mastectomy was done approximately 30 years ago. She underwent placement of a tissue community coordinator in . Her last fill was in . She has a total of 390 cc of saline and the implant which is the capacity of the community coordinator as a permanent prosthesis. Her implant is a [place] smooth round spectrum style 1400. Reference #[id number] has decided to leave the community coordinator and is a permanent implant. We had [...] incontinence Exam Chest Other: Patient with a community coordinator in place on the right breast. The port is palpable in the in (more content not included)... Normal [facility] Urology Office/Clinic Noteon 02-18-2023 Urology Office/Clinic Note [...] breast cancer History of colonoscopy with polypectomy NC (myocardial infarction) Morbid obesity with body mass [...] by Kevin Joaquin 02/18/23 15:27 EDT Normal [facility] Urology Office/Clinic Noteon 12-23-2022 Urology Office/Clinic Note Chief Complaint 1 year follow up med check History of Present Illness 72-year-old female presents for symptom check. s/p LUIGI/BSO with Anterior and Posterior repair and [place] [address] Martinez. h/o OAB, last seen March 2021 and was on trospium at the time. Failed oxybutynin prior, Myrbetriq too expensive. She then had another anterior colporrhaphy [address] Nanyc [place]. She has continue trospium although does [...] to pharmacy. If too expensive [facility] Follow-up in 6 weeks for symptom check. I did give her OAB handout and she is going to look over third line therapies as well. Ordered: mirabegron, 1 tabs, Oral, Daily, do not crush or chew, # 30 tabs, 11 Refill(s), Pharmacy: [facility] #[id number] Problem List/Past Medical History Ongoing Arthritis of left hip CAD (coronary artery disease) Chronic cough Chronic GERD CPAP/BiPAP dependent Cystocele Depression Drug-induced obesity with body mass index (BMI) of 35 to less than 40 Encounter for gynecological examination (general) (routine) without abnormal findings Feeling of incomplete bladder emptying GERD H/O cardiac catheterization History of breast cancer History of colonoscopy with polypectomy Hyperlipidemia NC (myocardial infarction) Morbid obesity with body mass [...] by Kevin Joaquin 12/23/22 17:08 EDT Normal [facility] VC CONSULT FOLLOWUPon 2022 VC CONSULT FOLLOWUP Patient: LETICIA NOLASCO Exam Date: 12/16/2022 : 1950 Gender:F Ordering : SHAIKH Quirino VILLAGRAN . Admission #: [id number] Family : Order #: [id number] CLICK HERE TO VIEW EXAM RADIOLOGY REPORT [...] MD on 12/16/2022 at 14:59 Normal [facility] CBC AUTO DIFFon 09-16-2022 BASO # 0.0 103/ul Normal 0.0-0.1 [facility] Comment on above: Performed By: #### C BC #### [facility] [address] [address] [address] Danielle Penaloza Basophils/100 WBC (Bld) 0.5 % Normal 0.2-2.0 [facility] Comment on above: Performed By: #### C BC #### [facility] [address] [place] [address] Dr. Danielle Penaloza EO # 0.1 103/ul Normal 0.0-0.7 [facility] Comment on above: Performed By: #### C BC #### [facility] [address] [place] [address] Dr. Danielle Penaloza Eosinophils/100 WBC (Bld) 1.2 % Normal 0.9-7.0 [facility] Comment on above: Performed By: #### C BC #### [facility] [address] [place] [address] Dr. Danielle Penaloza Erythrocyte distribution width (RBC) [Ratio] 14.2 % Normal 11.0-15.0 [facility] Comment on above: Performed By: #### C BC #### [facility] [address] [place] [address] Dr. Danielle Penaloza Hematocrit (Bld) [Volume fraction] 42.5 % Normal 36.0-48.0 [facility] Comment on above: Performed By: #### C BC #### [facility] [address] [place] [address] Dr. Danielle Penaloza Hemoglobin (Bld) [Mass/Vol] 14.1 g/dL Normal 12.0-16.0 [facility] Comment on above: Performed By: #### C BC #### [facility] [address] [place] [address] Dr. Danielle Penaloza IG # 0.02 10e3/ul Normal 0.00-0.03 [facility] Comment on above: Performed By: #### C BC #### [facility] [address] [place] [address] Dr. Danielle Penaloza IG % 0.2 % Normal 0.0-0.5 [facility] Comment on above: Performed By: #### C BC #### [facility] [address] [place] [address] Dr. Danielle Penaloza LYMPH # 1.9 103/ul Normal 1.2-3.8 [facility] Comment on above: Performed By: #### C BC #### [facility] [address] [place] [address] Dr. Danielle Penaloza Lymphocytes/100 WBC (Bld) 23.4 % Normal 20.5-60.0 [facility] Comment on above: Performed By: #### C BC #### [facility] [address] [place] [address] Dr. Danielle Penaloza MANUAL DIFF REQ NO Normal [facility] Comment on above: Performed By: #### C BC #### [facility] [address] [place] [address] Dr. Danielle Penaloza MCH (RBC) [Entitic mass] 28.1 pg Normal 26.7-34.0 [facility] Comment on above: Performed By: #### C BC #### [facility] [address] [place] [address] Dr. Danielle Penaloza MCHC (RBC) [Mass/Vol] 33.2 g/dL Normal 29.9-35.2 [facility] Comment on above: Performed By: #### C BC #### [facility] [address] [place] [address] Dr. Danielle Penaloza MCV (RBC) [Entitic vol] 84.8 fL Normal 81.0-99.0 [facility] Comment on above: Performed By: #### C BC #### [facility] [address] [place] [address] Dr. Danielle Penaloza MONO # 0.5 103/ul Normal 0.3-0.8 [facility] Comment on above: Performed By: #### C BC #### [facility] [address] [place] [address] Dr. Danielle Penaloza Monocytes/100 WBC (Bld) 6.0 % Normal 1.7-12.0 [facility] Comment on above: Performed By: #### C BC #### [facility] [address] [place] [address] Dr. Danielle Penaloza NEUT # 5.5 103/ul Normal 1.4-6.5 [facility] Comment on above: Performed By: #### C BC #### [facility] [address] [place] [address] Dr. Danielle Penaloza Neutrophils/100 WBC (Bld) 68.7 % Normal 43.0-75.0 [facility] Comment on above: Performed By: #### C BC #### [facility] [address] [place] [address] Dr. Danielle Penaloza Platelet mean volume (Bld) [Entitic vol] 9.9 fL Normal 9.5-13.5 [facility] Comment on above: Performed By: #### C BC #### [facility] [address] [place] [address] Dr. Danielle Penaloza PLT 186 103/ul Normal 150-450 [facility] Comment on above: Performed By: #### C BC #### [facility] [address] [place] [address] Dr. Danielle Penaloza RBC 5.01 106/ul Normal 4.20-5.40 [facility] Comment on above: Performed By: #### C BC #### [facility] [address] [place] [address] Dr. Danielle Penaloza WBC 8.1 103/ul Normal 4.0-11.0 [facility] Comment on above: Performed By: #### C BC #### [facility] [address] [place] [address] Dr. Danielle Penaloza PROF CHEM 8 (BAS METB)on Anion gap [Moles/Vol] 10.8 mmol/L Normal [facility] Comment on above: Performed By: #### B MP, TSH #### [facility] [address] [place] [address] Dr. Danielle Penaloza Calcium [Mass/Vol] 9.2 mg/dL Normal 8.5-10.1 [facility] Comment on above: Performed By: #### B MP, TSH #### [facility] [address] [place] [address] Dr. Danielle Penaloza Chloride [Moles/Vol] 103 mmol/L Normal 98-107 [facility] Comment on above: Performed By: #### B MP, TSH #### [facility] [address] [address] [address] Danielle Penaloza CO2 [Moles/Vol] 30.5 mmol/L Normal 21.0-32.0 [facility] Comment on above: Performed By: #### B MP, TSH #### [facility] [address] [place] [address] [address] Danielle Penaloza Creatinine [Mass/Vol] 0.63 mg/dL Normal 0.55-1.02 [facility] Comment on above: Performed By: #### B MP, TSH #### [facility] [address] [address] [address] Danielle Penaloza EGFR-AF SERBIAN >60 Normal >=60 [facility] Comment on above: Performed By: #### B MP, TSH #### [facility] [address] [place] [address] Dr. Danielle Penaloza EGFR-NON AF SERBIAN >60 Normal >=60 [facility] Comment on above: Performed By: #### B MP, TSH #### [facility] [address] [address] [address] Danielle Penaloza Glucose [Mass/Vol] 101 mg/dL Normal 74-106 [facility] Comment on above: Performed By: #### B MP, TSH #### [facility] [address] [place] [address] Dr. Danielle Penaloza Potassium [Moles/Vol] 4.3 mmol/L Normal 3.5-5.1 [facility] Comment on above: Performed By: #### B MP, TSH #### [facility] [address] [address] [address] Danielle Penaloza Sodium [Moles/Vol] 140 mmol/L Normal 136-145 [facility] Comment on above: Performed By: #### B MP, TSH #### [facility] [address] [address] [address] Danielle Penaolza Urea nitrogen [Mass/Vol] 17.0 mg/dL Normal 7.0-18.0 [facility] Comment on above: Performed By: #### B MP, TSH #### [facility] [address] [place], [place] [address] Dr. Danielle Penaloza Urea nitrogen/Creatinine [Mass ratio] 27.0 mg/mg Normal [facility] Comment on above: Performed By: #### B MP, TSH #### [facility] [address] [place], [place] [address] Dr. Danielle Penaloza TSHon 09-16-2022 TSH 2.028 uIU/mL Normal 0.358-3.740 [facility] Comment on above: Performed By: #### B MP, TSH #### [facility] [address] [place], [place] [address] Dr. Danielle Penaloza VC COMP CONSULTATIONon 09-16 VC COMP CONSULTATION Patient: NAYANA NOLASCO Exam Date: 09/16/2022 : 1950 Gender:F Ordering : SHAIKH Quirino Harry Admission #: [id number] Family : Order #: [id number] CLICK HERE TO VIEW EXAM RADIOLOGY REPORT [...] arterial disease 5. CEAP: C3, AP, AP, ID PLAN: 1. Use of compression stockings 2. [...] M.D. on 09/16/2022 at 15:49 Normal [facility] VC VENOUS REFLUX CHARLIE LMTon 0 09-16-2022 VC VENOUS REFLUX CHARLIE LMT Patient: BERENICE NOLASCO Exam Date: 09/16/2022 : 1950 Gender:F Ordering : SHAIKH Quirino VILLAGRAN . Admission #: [id number] Family : Order #: [id number] CLICK HERE TO VIEW EXAM RADIOLOGY REPORT [...] thrombus. Compressibility: Normal. Flow: Deep venous reflux. Tour Driver: Prox medial lower leg perf measures 4.3 [...] M.D. on 09/16/2022 at 15:41 Normal [facility] XR CHEST PA AND LATERALon XR CHEST [...] Degenerative changes of the thoracic spine. Normal [facility] XR Chest PA and Lateralon Findings [...] abnormality. Degenerative changes of the thoracic spine. [facility] Radiology Study observation (narrative) [facility] XR Chest PA and LateralOrder ed By: Silvestre Rivera on 09-15-2022 [facility] Work Phone: ECHOCARDIO M/2D COMPLETEon 1 ECHOCARDIO M/2D COMPLETE Patient: BERENICE NOLASCO Exam Date: 06/22/2022 : 1950 Gender:F Ordering : SHAIKH Quirino VILLAGRAN . Admission #: [id number] Family : APOLINAR HENRY Order #: [id number] CLICK HERE TO VIEW EXAM ECHOCARDIOGRAM REPORT [...] Narcisa Mc M.D. on 06/23/2022 at 14:19 [facility] 06-16-2022 A:G RATIO 1.6 RATIO Normal 1.3-2.2 [facility] Comment on above: Performed By: #### C MPF #### Testing performed at [address] [address] ALBUMIN 4.4 G/dl Normal 3.5-5.0 [facility] Comment on above: Performed By: #### C MPF #### Testing performed at [address] [address] ALP [Catalytic activity/Vol] 124 U/L Normal 38-126 [facility] Comment on above: Performed By: #### C MPF #### Testing performed at [address] [address] ALT [Catalytic activity/Vol] 35 U/L High <35 [facility] Comment on above: Performed By: #### C MPF #### Testing performed at [address] [address] AST [Catalytic activity/Vol] 31 U/L Normal 14-36 [facility] Comment on above: Performed By: #### C MPF #### Testing performed at [address] [address] Bilirubin [Mass/Vol] 0.5 mg/dL Normal 0.2-1.3 [facility] Comment on above: Performed By: #### C MPF #### Testing performed at [address] [address] Calcium [Mass/Vol] 8.8 mg/dL Normal 8.4-10.2 [facility] Comment on above: Performed By: #### C MPF #### Testing performed at [address] [address] Chloride [Moles/Vol] 102 mmol/L Normal 98-107 [facility] Comment on above: Result Comment: Mendez caraballo note: Triglyceride levels of 600mg/dL or higher may positively bias chloride results by approximately 2.1 mmol Performed By: #### C MPF #### Testing performed at [address] [address] CO2 [Moles/Vol] 28 mmol/L Normal 22-30 [facility] Comment on above: Performed By: #### C MPF #### [place] [address] Creatinine [Mass/Vol] 0.60 mg/dL Low 0.7-1.2 [facility] Comment on above: Performed By: #### C MPF #### Testing performed at [place] [id number] EST. GFR, 126 ml/min/1.73sq.m [facility] Comment on above: Performed By: #### C MPF #### Testing performed at [place] [id number] EST. GFR,Non 104 ml/min/1.73sq.m [facility] Comment on above: Performed By: #### C MPF #### [place] [address] GFR Information Average GFR for 70+ years old = 75. Normal [facility] Comment on above: Result Comment: Outsole Molder kurtis Kidney disease, GFR = <60. Kidney failure, GFR = <15. The GFR estimate is not adjusted for extreme body surface area or acute process, nor has it been validated for women or ethnic groups other than and . Testing performed at [place] [address] Performed By: #### C MPF #### Testing performed at [place] [id number] Glucose [Mass/Vol] 98 mg/dL Normal 70-100 [facility] Comment on above: Result Comment: NORMAL <100 mg/dL PREDIABETES 101-126 mg/dL DIABETES 126 mg/dL or higher Performed By: #### C MPF #### [place] [address] Potassium [Moles/Vol] 4.3 mmol/L Normal 3.5-5.1 [facility] Comment on above: Performed By: #### C MPF #### Testing performed at [address] [place] [address] Protein [Mass/Vol] 7.2 g/dL Normal 6.3-8.2 [facility] Comment on above: Performed By: #### C MPF #### Testing performed at [facility] [address] [place] [address] Sodium [Moles/Vol] 139 mmol/L Normal 137-145 [facility] Comment on above: Performed By: #### C MPF #### Testing performed at [facility] [address] [place] [address] Urea nitrogen [Mass/Vol] 14 mg/dL Normal 7-20 [facility] Comment on above: Performed By: #### C MPF #### Testing performed at [place] [id number] FREE T3on 03-24-2022 FREE T3 2.69 pg/mlL Normal 2.18-3.98 [facility] Comment on above: Performed By: #### B MP, TSH #### [facility] [address] [address] [address] Danielle Penaloza TSHon 03-24-2022 TSH 2.001 uIU/mL Normal 0.358-3.740 [facility] Comment on above: Performed By: #### T SH, FT3 #### [facility] [address] [place] [address] Dr. Danielle Penaloza [facility]12 SARS-CoV-2 (COVID-19) RNA ADELAIDA+probe Ql (Unsp spec) Not detected Normal NOT DETECTED [facility] Comment on above: Result Comment: This test is not yet approved or cleared by the [place] FDA. When there are no FDA-approved or cleared tests available, and other criteria are met, FDA can make tests available under an emergency access mechanism called an Emergency Use Authorization (EUA). The EUA for this test is supported by the Patient Support Partner of Health and Human Service's (HHS's) declaration [...] consistent with SARS-CoV-2. Performed By: #### [facility] #### [facility] [address] [place] [address] Dr. Danielle Penaloza Operative Reporton 0 Operative Report MR#: [id number] [facility] Pt. Name: Berenice Nolasco Room #: 0C Discharge Date: Birthdate: 1950 OPERATIVE REPORT DATE OF SURGERY: 06/07/2020 SURGEON: Adam Skinner M.D. PREOPERATIVE DIAGNOSIS: Right knee medial and lateral meniscal tears. POSTOPERATIVE DIAGNOSES: 1. Right knee medial and lateral meniscal tears. 2. Right knee Hoffa's fat pad hypertrophy and inflammation. DOG GROOMER: Bindu Rick M.D. ANESTHESIA: General. PROCEDURES PERFORMED: [...] Skinner M.D. Date Trans: 06/07/2020 09:06 A/irena DN_JN:[id number] cc: Trino Montiel M.D. [address] [place] [address] Normal [facility] POC GLUCOSE LABon 06-07-2020 Glucose [Mass/Vol] 109 mg/dL High 70-100 [facility] Comment on above: Performed By: #### 8 5499 #### [address] *SARS-CoV-2 COVID-19on 06-04 CYLE-[id number]-20 Not Detected Normal Not Detected [facility] Comment on above: Order Comment: The A ptima SARS-CoV-2 assay is a nucleic acid amplification test intended for the qualitative detection of RNA from SARS-CoV-2 isolated and purified from nasopharyngeal (SUPERVISOR TOY ASSEMBLY),oropharyngeal (OP), nasal swab, sputum, and bronchoalveolar lavage (BAL) specimens from patients with signs and symptoms of infection who are suspected of COVID-19. Results are for the identification of SARS-CoV-2 RNA. The SARS-CoV-2 RNA is generally detectable during the acute phase of infection. The Aptima SARS-CoV-2 Assay on the Proactive Comfort and Keystone Fusion system is intended for use by laboratory personnel specifically instructed and trained in the operation of the Keystone and Keystone Fusion system. The Aptima SARS-CoV-2 assay is [...] information. Performed By: #### 3 1792 #### [address] KNEE RIGHT 3 Son 0 KNEE RIGHT 3 [facility] Department of Radiology [address] [place] [phone] Patient Name: BERENICE NOLASCO : 1950 [...] reports Electronically signed: DELANO BLANCO. Transcribed by: [email or web address], User Resident: YONY PAN Electronically Signed by: DELANO BLANCO @ 01/22/2020 02:18 PM I personally read this/these film(s) with this resident Normal [facility] ED PROV NOTEon 08-06-2018 Protein mass conc HNO ID: [id number] thor: Cas Estrada: (none)Author Type: PhysicianType: ED Provider NotesFiled: 08/13/2018 10:43 AMNote Text:[facility] [place], [place] [address]OIUMPZ INFORMATION MANAGEMENTEMERGENCY DEPARTMENT REPORTPatient: BERENICE NOLASCO JOEL A M.D. as dictated by GRUPO BROUSSARD, MELNIA-[id number] FStatus: DEP ER EDDate of Service: [...] M.D. Signed By: CAS CANTU M.D.Tests performed at:[address] [phone] Normal [facility] ED REPORTon 08-06-2018 ED REPORT [place] [address]VNQQRE INFORMATION MANAGEMENTEMERGENCY DEPARTMENT REPORTPatient: BERENICE NOLASCO JOEL A M.D. as dictated by GRUPO BROUSSARD, MELINA-[id number] FStatus: DEP ER EDDate of Service: [...] the plan of care will be dischargedhome.Max stauffer sinusitis. 08/13/18 1027 CAS CANTU M.D.cc: CAS CANTU M.D. << Signature on File>> Reported By: CAS CANTU M.D. Signed By: CAS CANTU M.D.Tests performed at:[address] [phone] Normal [facility] BCon 08-05-2018 No Growth Normal [facility] Comment on above: Performed By: #### L 100.0440 ####[facility] V[address] [place] [address] No Growth Normal [facility] Comment on above: Performed By: #### M 105.0000 ####ML [address] [address] [facility] Anion gap 3 molar conc 17.5 mmol/L Normal 15-22 [facility] Comment on above: Performed By: #### L 100.0010, L301.0120 ####[address] [address] Calcium mass conc 8.7 mg/dL Low 8.8-10.2 [facility] Comment on above: Performed By: #### L 100.0010, L301.0120 ####[facility] ZVTCLXLE[address] [place] [address] Chloride molar conc 101 mmol/L Normal 98-107 [facility] Comment on above: Performed By: #### L 100.0010, L301.0120 ####ML [facility] XFANUDYDXN[address] [place] [address] Creatinine mass conc 0.53 mg/dL Normal 0.50-0.90 [facility] Comment on above: Performed By: #### L 100.0010, L301.0120 ####[address] [address] eGFR if AFR MELISSA > 60 ml/min/1.73m2 Normal [facility] Comment on above: Result [...] By: #### L 100.0010, L301.0120 ####ML - KCSRCZUFNS582 [place] [address] eGFR nonAFR Melissa > 60 ml/Min/1.73m2 Normal [facility] Comment on above: Performed By: #### L 100.0010, L301.0120 #### - NONLEOKBNJ[address] [place] [address] Glucose mass conc 122 mg/dL High 82-115 [facility] Comment on above: Performed By: #### L 100.0010, L301.0120 ####[facility] HEZEUZDSIF[address] [place] [address] Potassium molar conc 3.5 mmol/L Normal 3.5-5.0 [facility] Comment on above: Performed By: #### L 100.0010, L301.0120 ####[facility] OBKGBKDWZP495 [place] [address] Sodium molar conc 138 mmol/L Normal 135-145 [facility] Comment on above: Performed By: #### L 100.0010, L301.0120 ####ML - OXHCDWRRNX314 [place] [address] TCO2 23 mmol/L Normal 22-29 [facility] Comment on above: Performed By: #### L 100.0010, L301.0120 ####[facility] SJEAQRDCMI781 [place] [address] Urea nitrogen mass conc 14 mg/dL Normal 8-23 [facility] Comment on above: Performed By: #### L 100.0010, L301.0120 ####[facility] OFNFSAPQ[address] [place] [address] CBCon 08-05-2018 Basophils Auto #/vol (Bld) 0.00 x10(3) Normal 0.00-0.10 [facility] Comment on above: Performed By: #### L 200.0010 ####[address] [address] Basophils/100 WBC Auto (Bld) 0.2 % Normal 0.0-1.0 [facility] Comment on above: Performed By: #### L 200.0010 ####[address] [address] Eosinophils Auto #/vol (Bld) 0.00 x10(3) Normal 0.00-0.54 [facility] Comment on above: Performed By: #### L 200.0010 ####[address] [address] Eosinophils/100 WBC Auto (Bld) 0.1 % Low 0.5-4.9 [facility] Comment on above: Performed By: #### L 200.0010 ####[address] [address] Erythrocyte distribution width Auto Ratio (RBC) 15.7 % Normal 12.5-15.7 [facility] Comment on above: Performed By: #### L 200.0010 ####ML [address] [address] Hematocrit Auto Volume Fraction (Bld) 39.4 % Normal 36.0-48.0 [facility] Comment on above: Performed By: #### L 200.0010 ####[address] [address] Hemoglobin mass conc (Bld) 13.8 g/dL Normal 12.0-16.0 [facility] Comment on above: Performed By: #### L 200.0010 ####[address] [address] Lymphocytes Auto #/vol (Bld) 0.50 x10(3) Low 1.00-3.50 [facility] Comment on above: Performed By: #### L 200.0010 ####ML [facility] BWRFRRTLLT[address] [place] [address] Lymphocytes/100 WBC Auto (Bld) 7.8 % Low 16.0-48.0 [facility] Comment on above: Performed By: #### L 200.0010 ####ML [facility] GEDZDDOMZV[address] [place] [address] MCH Auto Entitic mass (RBC) 27.6 pg Low 28.5-32.9 [facility] Comment on above: Performed By: #### L 200.0010 ####ML [facility] XJJCGWCPIK[address] [place] [address] MCHC Auto mass conc (RBC) 35.1 g/dL Normal 33.0-36.0 [facility] Comment on above: Performed By: #### L 200.0010 ####ML [facility] INXHYZOXZP[address] [place] [address] MCV Auto Entitic volume (RBC) 78.7 fL Low 80.0-99.0 [facility] Comment on above: Performed By: #### L 200.0010 ####ML [facility] EVWUWVXBXY[address] [place] [address] Monocytes Auto #/vol (Bld) 0.40 x10(3) Normal 0.30-0.80 [facility] Comment on above: Performed By: #### L 200.0010 ####ML [address] [address] Monocytes/100 WBC Auto (Bld) 5.4 % Normal 4.3-11.2 [facility] Comment on above: Performed By: #### L 200.0010 ####ML [facility] XIJGZYWXFM[address] [place] [address] Neutrophils Auto #/vol (Bld) 5.70 x10(3) Normal 1.40-6.50 [facility] Comment on above: Performed By: #### L 200.0010 ####ML [facility] KRSBWBZUTU[address] [place] [address] Neutrophils/100 WBC Auto (Bld) 86.5 % High 45.0-73.0 [facility] Comment on above: Performed By: #### L 200.0010 ####[address] [address] Platelet mean volume Auto Entitic volume (Bld) 8.1 fL Normal 7.5-9.5 [facility] Comment on above: Performed By: #### L 200.0010 ####ML - [address] [address] Platelets Auto #/vol (Bld) 115 X10(3) Low 150-450 [facility] Comment on above: Performed By: #### L 200.0010 ####ML - [address] [address] RBC Auto #/vol (Bld) 5.00 x10(6) Normal 3.30-5.00 [facility] Comment on above: Performed By: #### L 200.0010 ####ML - CFHUFOGQYY[address] [place] [address] WBC Auto #/vol (Bld) 6.6 x10(3) Normal 4.5-10.0 [facility] Comment on above: Performed By: #### L 200.0010 ####ML [address] [address] CHEST (TWO VIEWS) - CXRon CHEST (TWO VIEWS) - CXR [address] [address]Nxwj: BERENICE NOLASCO [facility]: 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 History of right mastectomyComparison study: NoneFindings:The heart size is normal. The left diaphragm is elevated. There is nopulmonary consolidation. No pneumothorax. Multilevel degenerative changes seenin the spine. Surgical clips identified in the right axilla.Impression:Elevated left diaphragm. No focal consolidationProfessional interpretation provided by [facility] [place] [address].Thank you for this referral.< >Reported By: XANDER MARTINEZ M.D.Signed In NovaPro By: XANDER MARTINEZ M.D. << Signature on File>> Reported By: XANDER MARTINEZ M.D. 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 << Signature on File>> Reported By: XANDER MARTINEZ M.D. Signed By: XANDER MARTINEZ M.D.Tests performed at:[place] [id number] [place], [place] [phone] Normal [facility] ED PROV NOTEon 08-05-2018 Protein mass conc HNO ID: [id number] thor: Cas Kernice: (none)Author Type: PhysicianType: ED Provider NotesFiled: 08/13/2018 10:42 AMNote Text:[place], [place] [address]EMRRPN INFORMATION MANAGEMENTEMERGENCY DEPARTMENT REPORTPatient: BERENICE NOLASCO JOEL A M.D.[id number] FStatus: DEP ER EDDate of Service: 08/05/18CHIEF [...] are downgoing. There is no pronator drift. Vezvoeszykxq-hz-kmxq, doim-rt-fmqb.EMERGENCY DEPARTMENT COURSESent for CT which was negative. [...] M.D. Signed By: CAS CANTU M.D.Tests performed at:[address] [phone] Normal [facility] EMERGENCY DEPARTMENT REPORTo n 08-05-2018 EMERGENCY DEPARTMENT REPORT [place], [place] [address]XIGMBZ INFORMATION MANAGEMENTEMERGENCY DEPARTMENT REPORTPatient: BERENICE NOLASCO JOEL A M.D.[id number] FStatus: DEP ER EDDate of Service: 08/05/18CHIEF [...] are downgoing. There is no pronatordrift. Normal tlydxd-go-sjid, siwq-zm-dxgd.EMERGENCY DEPARTMENT COURSESent for CT which was negative. [...] M.D. Signed By: CAS CANTU M.D.Tests performed at:[address] [phone] Normal [facility] FLU A & Bon 08-05-2018 FLU A Negative Normal NEGATIVE [facility] Comment on above: Order Comment: What is the source+ SWAB Performed By: #### L 400.0006 ####[facility] [address] [place] [address] FLU B Negative Normal NEGATIVE [facility] Comment on above: Order Comment: What is the source+ SWAB Result Comment: Infe ction due to Flu A and Flu B can not be ruled out. Flu Aand/or Flu B antigen in the sample may be below detectionlimit of the test. The gold standard for Flu A and Flu B vicente viral culture. Performed By: #### L 400.0006 ####ML [facility] KX[address]YVGFTJ[address] [place] [address] LACTIC ACIDon 08-05-2018 Lactate molar conc 0.8 mmol/L Normal 0.5-2.0 [facility] Comment on above: Performed By: #### L 100.0440 ####[facility] U[address]PCCVX[address] [place] [address] TROPONIN Ton 08-05-2018 Troponin T.cardiac mass conc ug/L Normal 0-0.010 [facility] Comment on above: Performed By: #### L 100.0010, L301.0120 ####ML - [id number] [place] [address] UA W/C&Son 08-05-2018 Bilirubin Ql (U) Negative Normal NEGATIVE [facility] Comment on above: Order Comment: Urine Specimen Source+ CLEAN CATCH Performed By: #### L 200.3001 ####ML - KWAPAQUBBW[address] [place] [address] Color Nom (U) YELLOW Normal YELLOW [facility] Comment on above: Order Comment: Urine Specimen Source+ CLEAN CATCH Performed By: #### L 200.3001 ####ML - COOWKBUJRV[address] [place] [address] Glucose Ql (U) Negative Normal NEGATIVE [facility] Comment on above: Order Comment: Urine Specimen Source+ CLEAN CATCH Performed By: #### L 200.3001 ####ML - QEEAOERSVW042 [place] [address] Hemoglobin Test strip Ql (U) Negative Normal NEGATIVE [facility] Comment on above: Order Comment: Urine Specimen Source+ CLEAN CATCH Performed By: #### L 200.3001 ####ML - KRJBDGVQFC[address] [place] [address] Leukocyte esterase Test strip Ql (U) Negative Normal NEGATIVE [facility] Comment on above: Order Comment: Urine Specimen Source+ CLEAN CATCH Performed By: #### L 200.3001 ####ML - [id number] [place] [address] Nitrite Test strip Ql (U) Negative Normal NEGATIVE [facility] Comment on above: Order Comment: Urine Specimen Source+ CLEAN CATCH Performed By: #### L 200.3001 ####ML - [id number] [place] [address] pH Test strip (U) 6.0 [pH] Normal 5.0-8.0 [facility] Comment on above: Order Comment: Urine Specimen Source+ CLEAN CATCH Performed By: #### L 200.3001 ####ML - [id number] [place] [address] Protein Test strip Ql (U) Negative Normal NEGATIVE [facility] Comment on above: Order Comment: Urine Specimen Source+ CLEAN CATCH Performed By: #### L 200.3001 ####ML - [facility] [address]APGMUO[address] [place] [address] URINE APPEARANC CLEAR Normal CLEAR [facility] Comment on above: Order Comment: Urine Specimen Source+ CLEAN CATCH Performed By: #### L 200.3001 ####ML - [facility] TRBJXBFGKC[address] [place] [address] URINE KETONE Negative Normal NEGATIVE [facility] Comment on above: Order Comment: Urine Specimen Source+ CLEAN CATCH Performed By: #### L 200.3001 ####ML - [facility] YVPXYKCLOJ[address] [place] [address] URINE SPECIFIC <=1.005 Normal 1.001-1.035 [facility] Comment on above: Order Comment: Urine Specimen Source+ CLEAN CATCH Performed By: #### L 200.3001 ####ML - [facility] [id number] [place] [address] URINE UROBILINO 0.2 EU/DL Normal 0.2-1.0 [facility] Comment on above: Order Comment: Urine Specimen Source+ CLEAN CATCH Performed By: #### L 200.3001 ####ML - [facility] [id number] [place] [address] Coding Summary.on 07-28-2017 Coding Summary. CODING DATE: 017 [facility] STATUS: PAYOR: Medicare ADMIT DX: REASON [...] Good Date Saved: 07/28/2017 10:55 am Normal [facility] Vital Signs Date Time Vital Sign Value Performing Clinician Facility 01-31-2024 13:040 Body height 167.64 cm [facility] 01-31-2024 13: Body mass index (BMI) [Ratio] 32.3 kg/m2 [facility] 01-31-2024 13:17-0400 Body weight 90.77 kg [facility] 01-31-2024 13:17-0400 Diastolic blood pressure 77 mm[Hg] [facility] 01-31-2024 13:17-0400 Heart rate 75 /min [facility] 01-31-2024 13:17-0400 Respiratory rate 16 /min [facility] 01-31-2024 13:17-0400 SaO2% (BldA) [Mass fraction] 92 % [facility] 01-31-2024 13:17-0400 Systolic blood pressure 115 mm[Hg] [facility] 01-21-2024 14:06-0400 Body temperature 96.9 [degF] Dr. Shaikh Villagran Work Phone: [facility] 01-21-2024 14:06-0400 Diastolic blood pressure 79 mm[Hg] Dr. Shaikh Villagran Work Phone: [facility] 01-21-2024 14:06-0400 Heart rate 82 /min Dr. Shaikh Villagran Work Phone: [facility] 01-21-2024 14:06-0400 Respiratory rate 16 /min Dr. Shaikh Villagran Work Phone: [facility] 01-21-2024 14:06-0400 SaO2% (BldA) [Mass fraction] 94 % Dr. Shaikh Villagran Work Phone: [facility] 01-21-2024 14:06-0400 Systolic blood pressure 125 mm[Hg] Dr. Shaikh Villagran Work Phone: [facility] 01-21-2024 11:45-0400 Inhaled oxygen flow rate 2 L/min Dr. Shaikh Villagran Work Phone: [facility] 01-21-2024 06:23-0400 Body height 167.[address] Shaikh Villagran Work Phone: [facility] 01-21-2024 06:23-0400 Body mass index (BMI) [Ratio] 32.5 kg/m2 Dr. Shaikh Villagran Work Phone: [facility] 01-21-2024 06:23-0400 Body weight 91.[address] Shaikh Villagran Work Phone: [facility] 01-05-2024 14:51-0400 Body height 167.[address] Shaikh Villagran Work Phone: [facility] 01-05-2024 14:51-0400 Body mass index (BMI) [Ratio] 31.8 kg/m2 Dr. Shaikh Villagran Work Phone: [facility] 01-05-2024 14:51-0400 Body temperature 98.1 [degF] Dr. Shaikh Villagran Work Phone: [facility] 01-05-2024 14:51-0400 Body weight 89.[address] Shaikh Villagran Work Phone: [facility] 01-05-2024 14:51-0400 Diastolic blood pressure 84 mm[Hg] Dr. Shaikh Villagran Work Phone: [facility] 01-05-2024 14:51-0400 Heart rate 71 /min Dr. Shaikh Villagran Work Phone: [facility] 01-05-2024 14:51-0400 Respiratory rate 16 /min Dr. Shaikh Villagran Work Phone: [facility] 01-05-2024 14:51-0400 SaO2% (BldA) [Mass fraction] 93 % Dr. Shaikh Villagran Work Phone: [facility] 01-05-2024 14:51-0400 Systolic blood pressure 124 mm[Hg] Dr. Shaikh Villagran Work Phone: [facility] 12-22-2023 14:33-0400 Body height 167.[address] Apolinar Henry Work Phone: [facility] 12-22-2023 14:33-0400 Body mass index (BMI) [Ratio] 32.6 kg/m2 Dr. Apolinar Henry Work Phone: [facility] 12-22-2023 14:33-0400 Body temperature 98.8 [degF] Dr. Apolinar Henry Work Phone: [facility] 12-22-2023 14:33-0400 Body weight 91.[address] Apolinar Henry Work Phone: [facility] 12-22-2023 14:33-0400 Diastolic blood pressure 76 mm[Hg] Dr. Apolinar Henry Work Phone: [facility] 12-22-2023 14:33-0400 Heart rate 71 /min Dr. Apolinar Henry Work Phone: [facility] 12-22-2023 14:33-0400 Respiratory rate 16 /min Dr. Apolinar Henry Work Phone: [facility] 12-22-2023 14:33-0400 SaO2% (BldA) [Mass fraction] 92 % Dr. Apolinar Henry Work Phone: [facility] 12-22-2023 14:33-0400 Systolic blood pressure 129 mm[Hg] Dr. Apolinar Henry Work Phone: [facility] 12-14-2023 15:53-0400 Body height 167.[address] Apolinar Henry Work Phone: [facility] 12-14-2023 15:53-0400 Body mass index (BMI) [Ratio] 32.3 kg/m2 Dr. Apolinar Henry Work Phone: [facility] 12-14-2023 15:53-0400 Body temperature 97.9 [degF] Dr. Apolinar Henry Work Phone: [facility] 12-14-2023 15:53-0400 Body weight 90.[address] Apolinar Henry Work Phone: [facility] 12-14-2023 15:53-0400 Diastolic blood pressure 83 mm[Hg] Dr. Apolinar Henyr Work Phone: [facility] 12-14-2023 15:53-0400 Heart rate 70 /min Dr. Apolinar Henry Work Phone: [facility] 12-14-2023 15:53-0400 Respiratory rate 16 /min Dr. Apolinar Henry Work Phone: [facility] 12-14-2023 15:53-0400 SaO2% (BldA) [Mass fraction] 95 % Dr. Apolinar Henry Work Phone: [facility] 12-14-2023 15:53-0400 Systolic blood pressure 128 mm[Hg] Dr. Apolinar Henry Work Phone: [facility] 12-09-2023 15:16-0400 Body height 167.64 cm [facility] 12-09-2023 15:16-0400 Body mass index (BMI) [Ratio] 32.4 kg/m2 [facility] 12-09-2023 15:16-0400 Body weight 91.18 kg [facility] 11-01-2023 12:53-0500 Body height 167.64 cm MD Shaikh Villagran Work Phone: [facility] 11-01-2023 12:53-0500 Body mass index (BMI) [Ratio] 32.9 kg/m2 MD Shaikh Villagran Work Phone: [facility] 11-01-2023 12:53-0500 Body weight 92.58 kg MD Shaikh Villagran Work Phone: [facility] 11-01-2023 12:53-0500 Diastolic blood pressure 86 mm[Hg] MD Shaikh Villagran Work Phone: [facility] 11-01-2023 12:53-0500 Heart rate 71 /min MD Shaikh Villagran Work Phone: [facility] 11-01-2023 12:53-0500 Respiratory rate 18 /min MD Shaikh Villagran Work Phone: [facility] 11-01-2023 12:53-0500 SaO2% (BldA) [Mass fraction] 95 % MD Shaikh Villagran Work Phone: [facility] 11-01-2023 12:53-0500 Systolic blood pressure 127 mm[Hg] MD Shaikh Villagran Work Phone: [facility] 08-30-2023 10:00-0500 Body height 167.64 cm MD Shaikh Villagran Work Phone: [facility] 08-30-2023 10:00-0500 Body weight 91.98 kg MD Shaikh Villagran Work Phone: [facility] 08-30-2023 10:00-0500 Diastolic blood pressure 87 mm[Hg] MD Shaikh Villagran Work Phone: [facility] 08-30-2023 10:00-0500 Systolic blood pressure 134 mm[Hg] MD Shaikh Villagran Work Phone: [facility] 07-21-2023 13:00-0500 Body height 167.64 cm Adriana Lyn Other [facility] Other 07-21-2023 13:00-0500 Body mass index (BMI) [Ratio] 33.52 kg/m2 Adriana Fitt Other [facility] Other 07-21-2023 13:00-0500 Body weight 94.21 kg Adriana Trammellt Other [facility] Other 07-05-2023 14:15-0400 Body height 167.64 cm Susanne Missler Other [facility] Other 07-05-2023 14:15-0400 Body mass index (BMI) [Ratio] 33.62 kg/m2 Susanne Missler Other [facility] Other 07-05-2023 14:15-0400 Body weight 94.48 kg Susanne Missler Other [facility] Other 07-05-2023 14:15-0400 Diastolic blood pressure 87 mm[Hg] Susanne Missler Other [facility] Other 07-05-2023 14:15-0400 Respiratory rate 18 /min Susanne Missler Other [facility] Other 07-05-2023 14:15-0400 SaO2% (BldA) [Mass fraction] 93 % Susanne Missler Other [facility] Other 07-05-2023 14:15-0400 Systolic blood pressure 133 mm[Hg] Susanne Missler Other [facility] Other 06-30-2023 15:08-0400 Body height 167.[address] Apolinar Henry Work Phone: [facility] 06-30-2023 15:08-0400 Body mass index (BMI) [Ratio] 33.5 kg/m2 Dr. Apolinar Henry Work Phone: [facility] 06-30-2023 15:08-0400 Body temperature 97.3 [degF] Dr. Apolinar Henry Work Phone: [facility] 06-30-2023 15:08-0400 Body weight 94.[address] Apolinar Henry Work Phone: [facility] 06-30-2023 15:08-0400 Diastolic blood pressure 81 mm[Hg] Dr. Apolinar Henry Work Phone: [facility] 06-30-2023 15:08-0400 Heart rate 65 /min Dr. Apolinar Henry Work Phone: [facility] 06-30-2023 15:08-0400 Respiratory rate 16 /min Dr. Apolinar Henry Work Phone: [facility] 06-30-2023 15:08-0400 SaO2% (BldA) [Mass fraction] 94 % Dr. Apolinar Henry Work Phone: [facility] 06-30-2023 15:08-0400 Systolic blood pressure 135 mm[Hg] Dr. Apolinar Henry Work Phone: [facility] 05-27-2023 10:00-0400 Body height 167.64 cm Adriana Nangatechriss Other [facility] Other 05-27-2023 10:00-0400 Body mass index (BMI) [Ratio] 34.65 kg/m2 Adriana Fitt Other [facility] Other 05-27-2023 10:00-0400 Body weight 97.39 kg Adriana Nangatet Other [facility] Other 05-05-2023 14:25-0400 Body height 167.[address] Apolinar Henry Work Phone: [facility] 05-05-2023 14:25-0400 Body mass index (BMI) [Ratio] 35 kg/m2 Dr. Apolinar Henry Work Phone: [facility] 05-05-2023 14:25-0400 Body temperature 97.7 [degF] Dr. Apolinar Henry Work Phone: [facility] 05-05-2023 14:25-0400 Body weight 98.[address] Apolinar Henry Work Phone: [facility] 05-05-2023 14:25-0400 Diastolic blood pressure 78 mm[Hg] Dr. Apolinar Henry Work Phone: [facility] 05-05-2023 14:25-0400 Heart rate 70 /min Dr. Apolinar Henry Work Phone: [facility] 05-05-2023 14:25-0400 Respiratory rate 16 /min Dr. Apolinar Henry Work Phone: [facility] 05-05-2023 14:25-0400 SaO2% (BldA) [Mass fraction] 96 % Dr. Apolinar Henry Work Phone: [facility] 05-05-2023 14:25-0400 Systolic blood pressure 120 mm[Hg] Dr. Apolinar Henry Work Phone: [facility] 03-15-2023 12:45-0400 Body height 167.64 cm Susanne Jordan Other [facility] Other 03-15-2023 12:45-0400 Body mass index (BMI) [Ratio] 36.42 kg/m2 Susanne Jordan Other [facility] Other 03-15-2023 12:45-0400 Body weight 102.38 kg Susanne Jordan Other [facility] Other 03-15-2023 12:45-0400 Diastolic blood pressure 84 mm[Hg] Susanne Missler Other [facility] Other 03-15-2023 12:45-0400 Respiratory rate 18 /min Susanne Missler Other [facility] Other 03-15-2023 12:45-0400 SaO2% (BldA) [Mass fraction] 96 % Susanne Missler Other [facility] Other 03-15-2023 12:45-0400 Systolic blood pressure 131 mm[Hg] Susanne Missler Other [facility] Other 11-18-2022 14:58-0500 Body height 167.6 cm Apolinar Henry MD Work Phone: [facility] [employer] [facility] 11-18-2022 14:58-0500 Body temperature 97 [degF] Apolinar Henry MD Work Phone: [facility] [employer] [facility] 11-18-2022 14:58-0500 Diastolic blood pressure 83 mm[Hg] Apolinar Henry MD Work Phone: [facility] [employer] [facility] 11-18-2022 14:58-0500 Heart rate 78 /min Apolinar Henry MD Work Phone: [facility] [employer] [facility] 11-18-2022 14:58-0500 Systolic blood pressure 143 mm[Hg] Apolinar Henry MD Work Phone: [facility] [employer] [facility] 10-21-2022 13:46-0500 Body height 167.6 cm Apolinar Henry MD Work Phone: [facility] [employer] [facility] 10-21-2022 13:46-0500 Body temperature 97.3 [degF] Apolinar Henry MD Work Phone: 0(791)953-278302 [place] [address] 10-21-2022 13:46-0500 Diastolic blood pressure 86 mm[Hg] Apolinar Henry MD Work Phone: 7(490)044-676202 [place] [address] 10-21-2022 13:46-0500 Heart rate 76 /min Apolinar Henry MD Work Phone: 8(725)838-773902 [place] [address] 10-21-2022 13:46-0500 Systolic blood pressure 142 mm[Hg] Apolinar Henry MD Work Phone: 9(754)281-155102 [place] [address] 10-07-2022 14:27-0500 Body height 167.6 cm Apolinar Henry MD Work Phone: 2(509)851-119102 [place] [address] 10-07-2022 14:27-0500 Body temperature 97.9 [degF] Apolinar Henry MD Work Phone: 0(722)050-613502 [place] [address] 10-07-2022 14:27-0500 Diastolic blood pressure 81 mm[Hg] Apolinar Henry MD Work Phone: 8(515)124-345002 [place] [address] 10-07-2022 14:27-0500 Heart rate 74 /min Apolinar Henry MD Work Phone: 4(400)029-023902 [place] [address] 10-07-2022 14:27-0500 Systolic blood pressure 140 mm[Hg] Apolinar Henry MD Work Phone: 4(516)233-542302 [place] [address] 09-23-2022 14:36-0500 Body height 167.6 cm Apolinar Henry MD Work Phone: 3(226)912-881102 [place] [address] 09-23-2022 14:36-0500 Body mass index (BMI) [Ratio] 35.83 kg/m2 Apolinar Henry MD Work Phone: 7(375)859-457402 [place] [address] 09-23-2022 14:36-0500 Body temperature 97.3 [degF] Apolinar Henry MD Work Phone: 1(875)946-994902 [place] [address] 09-23-2022 14:36-0500 Body weight 100.7 kg Apolinar Henry MD Work Phone: 1(152)351-510402 [place] [address] 09-23-2022 14:36-0500 Diastolic blood pressure 97 mm[Hg] Apolinar Henry MD Work Phone: 6(753)365-470302 [place] [address] 09-23-2022 14:36-0500 Heart rate 82 /min Apolinar Henry MD Work Phone: 0(245)506-868902 [place] [address] 09-23-2022 14:36-0500 Systolic blood pressure 152 mm[Hg] Apolinar Henry MD Work Phone: 2(975)653-817202 [place] [address] 08-12-2022 15:03-0500 Body height 167.6 cm Apolinar Henry MD Work Phone: 8(595)433-107002 [place] [address] 08-12-2022 15:03-0500 Body mass index (BMI) [Ratio] 35.83 kg/m2 Apolinar Henry MD Work Phone: 2(118)129-163902 [place] [address] 08-12-2022 15:03-0500 Body temperature 96.69 [degF] Apolinar Henry MD Work Phone: 6(082)991-151502 [place] [address] 08-12-2022 15:03-0500 Body weight 100.7 kg Apolinar Henry MD Work Phone: 1(173)122-590202 [place] [address] 08-05-2022 14:20-0500 Body height 167.6 cm Apolinar Henry MD Work Phone: 7(269)255-371002 [place] [address] 08-05-2022 14:20-0500 Body mass index (BMI) [Ratio] 35.83 kg/m2 Apolinar Henry MD Work Phone: 4(043)524-846002 [place] [address] 08-05-2022 14:20-0500 Body temperature 97.2 [degF] Apolinar Henry MD Work Phone: 3(218)422-462302 [place] [address] 08-05-2022 14:20-0500 Body weight 100.7 kg Apolinar Henry MD Work Phone: 5(584)796-235002 [place] [address] 08-05-2022 14:20-0500 Diastolic blood pressure 90 mm[Hg] Apolinar Henry MD Work Phone: 2(910)536-126202 [place] [address] 08-05-2022 14:20-0500 Heart rate 75 /min Apolinar Henry MD Work Phone: 5(479)103-935402 [place] [address] 08-05-2022 14:20-0500 Systolic blood pressure 156 mm[Hg] Apolinar Henry MD Work Phone: 1(298)440-853802 [place] [address] 07-22-2022 13:23-0500 Body height 167.6 cm Apolinar Henry MD Work Phone: 7(421)670-797102 [place] [address] 07-22-2022 13:23-0500 Body mass index (BMI) [Ratio] 35.83 kg/m2 Apolinar Henry MD Work Phone: 4(025)964-791502 [place] [address] 07-22-2022 13:23-0500 Body temperature 97.81 [degF] Apolinar Henry MD Work Phone: 4(614)207-581002 [place] [address] 07-22-2022 13:23-0500 Body weight 100.7 kg Apolinar Henry MD Work Phone: 9(778)091-261402 [place] [address] 07-22-2022 13:23-0500 Diastolic blood pressure 80 mm[Hg] Apolinar Henry MD Work Phone: 8(403)116-074702 [place] [address] 07-22-2022 13:23-0500 Heart rate 69 /min Apolinar Henry MD Work Phone: 8(386)856-251502 [place] [address] 07-22-2022 13:23-0500 Systolic blood pressure 133 mm[Hg] Apolinar Henry MD Work Phone: 9(991)403-501902 [place] [address] 07-15-2022 13:33-0400 Body height 167.6 cm Apolinar Henry MD Work Phone: 3(888)871-876702 [place] [address] 07-15-2022 13:33-0400 Body mass index (BMI) [Ratio] 35.83 kg/m2 Apolinar Henry MD Work Phone: 3(916)142-971502 [place] [address] 07-15-2022 13:33-0400 Body temperature 97.9 [degF] Apolinar Henry MD Work Phone: 0(174)756-293402 [place] [address] 07-15-2022 13:33-0400 Body weight 100.7 kg Apolinar Henry MD Work Phone: 4(013)273-256302 [place] [address] 07-15-2022 13:33-0400 Diastolic blood pressure 83 mm[Hg] Apolinar Henry MD Work Phone: 5(505)265-096302 [place] [address] 07-15-2022 13:33-0400 Heart rate 75 /min Apolinar Henry MD Work Phone: 8(492)856-932002 [place] [address] 07-15-2022 13:33-0400 Systolic blood pressure 140 mm[Hg] Apolinar Henry MD Work Phone: 5(412)608-525302 [place] [address] 07-09-2022 16:55-0400 Diastolic blood pressure 79 mm[Hg] Apolinar Henry MD Work Phone: 8(493)636-184502 [place] [address] 07-09-2022 16:55-0400 Heart rate 87 /min Apolinar Henry MD Work Phone: 4(526)319-625602 [place] [address] 07-09-2022 16:55-0400 Respiratory rate 18 /min Apolinar Henry MD Work Phone: 2(901)867-041102 [place] [address] 07-09-2022 16:55-0400 SaO2% (BldA) [Mass fraction] 97 % Apolinar Henry MD Work Phone: 4(419)007-068702 [place] [address] 07-09-2022 16:55-0400 Systolic blood pressure 149 mm[Hg] Apolinar Henry MD Work Phone: 4(993)646-106402 [place] [address] 07-09-2022 15:05-0400 Body temperature 97.3 [degF] Apolinar Henry MD Work Phone: 7(871)193-458402 [place] [address] 07-09-2022 08:58-0400 Body height 167.6 cm Apolinar Henry MD Work Phone: 2(591)478-190602 [place] [address] 07-09-2022 08:58-0400 Body mass index (BMI) [Ratio] 35.83 kg/m2 Apolinar Henry MD Work Phone: 8(637)905-938802 [place] [address] 07-09-2022 08:58-0400 Body weight 100.7 kg Apolinar Henry MD Work Phone: 7(209)540-028302 [place] [address] 06-30-2022 14:44-0400 Body height 167.6 cm Apolinar Henry MD Work Phone: 4(593)289-272402 [place] [address] 06-30-2022 14:44-0400 Body mass index (BMI) [Ratio] 35.83 kg/m2 Apolinar Henry MD Work Phone: 8(567)146-680502 [place] [address] 06-30-2022 14:44-0400 Body temperature 97.7 [degF] Apolinar Henry MD Work Phone: 5(954)807-697402 [place] [address] 06-30-2022 14:44-0400 Body weight 100.7 kg Apolinar Henry MD Work Phone: 5(865)484-829202 [place] [address] 06-30-2022 14:44-0400 Diastolic blood pressure 97 mm[Hg] Apolinar Henry MD Work Phone: 4(986)061-615102 [place] [address] 06-30-2022 14:44-0400 Heart rate 119 /min Apolinar Henry MD Work Phone: 0(253)621-850102 [place] [address] 06-30-2022 14:44-0400 Systolic blood pressure 148 mm[Hg] Apolinar Henry MD Work Phone: 7(469)129-682702 [place] [address] 06-16-2022 11:36-0400 Body height 167.6 cm Apolinar Henry MD Work Phone: 2(257)622-452902 [place] [address] 06-16-2022 11:36-0400 Body mass index (BMI) [Ratio] 35.99 kg/m2 Apolinar Henry MD Work Phone: 7(934)473-983986 [place] [address] 06-16-2022 11:36-0400 Body temperature 97.5 [degF] Apolinar Henry MD Work Phone: 9(231)665-084202 [place] [address] 06-16-2022 11:36-0400 Body weight 101.15 kg Apolinar Henry MD Work Phone: 7(157)495-196002 [place] [address] 06-16-2022 11:36-0400 Diastolic blood pressure 89 mm[Hg] Apolinar Henry MD Work Phone: 7(811)204-100102 [place] [address] 06-16-2022 11:36-0400 Heart rate 76 /min Apolinar Henry MD Work Phone: 8(577)206-631202 [place] [address] 06-16-2022 11:36-0400 Systolic blood pressure 148 mm[Hg] Apolinar Henry MD Work Phone: 9(623)588-545902 [place] [address] 05-20-2022 13:46-0400 Body temperature 98.01 [degF] Apolinar Henry MD Work Phone: 8(376)733-768602 [place] [address] 05-20-2022 13:46-0400 Body weight 100.7 kg Apolinar Henry MD Work Phone: 9(606)788-724802 [place] [address] 05-20-2022 13:46-0400 Diastolic blood pressure 95 mm[Hg] Apolinar Henry MD Work Phone: 1(368)416-007202 [place] [address] 05-20-2022 13:46-0400 Heart rate 80 /min Apolinar Henry MD Work Phone: 0(657)374-626502 [place] [address] 05-20-2022 13:46-0400 Systolic blood pressure 150 mm[Hg] Apolinar Henry MD Work Phone: 3(225)623-011502 [place] [address] Encounters Encounter Date Encounter Type Care Provider Facility Start: 04-11-2024 End: 04-11-2024 ambulatory SHAIKH TYSHAWN Not Available Start: 03-02-2024 End: 03-02-2024 ambulatory [facility] Start: 03-01-2024 End: 03-01-2024 ambulatory Apolinar Henry Facility:[facility] Start: 02-16-2024 End: 02-16-2024 ambulatory Shaikh Tyshawn Facility:[facility] Start: 02-02-2024 End: 02-02-2024 ambulatory Shaikh Tyshawn Facility:[facility] Start: 01-31-2024 End: 01-31-2024 ambulatory [facility] Work Phone: Start: 01-31-2024 End: 01-31-2024 Patient encounter procedure [facility] Work Phone: Start: 01-26-2024 End: 01-26-2024 ambulatory Shaikh Tyshawn Facility:[facility] Start: 01-21-2024 ambulatory Apolinar Henry Facility :[facility] Start: 01-21-2024 Non-patient / Non-visit Dr. Phil Villagran Work Phone: [facility] Start: 01-21-2024 End: 01-21-2024 Admission to same day surgery center Dr. Shaikh Villagran Work Phone: [facility] Start: 01-21-2024 End: 01-21-[address] Shaikh Villagran Work Phone: [facility] Work Phone: Start: 01-06-2024 End: 01-06-2024 ambulatory SHAIKH TYSHAWN Not Available Start: 01-05-2024 End: 01-05-[address] Shaikh Villagran Work Phone: [facility] Work Phone: Start: 01-05-2024 End: 01-05-2024 ambulatory Shaikh Tyshawn Facility:[facility] Start: 12-22-2023 End: 12-22-[address] Apolinar Henry Work Phone: [facility] Work Phone: Start: 12-22-2023 End: 12-22-2023 ambulatory [facility] Work Phone: Start: 12-14-2023 End: 12-14-[address] Apolinar Henry Work Phone: [facility] Work Phone: Start: 12-14-2023 End: 12-14-2023 ambulatory [facility] Work Phone: Start: 12-09-2023 End: 12-09-2023 ambulatory [facility] Work Phone: Start: 12-09-2023 End: 12-09-2023 Patient encounter procedure [facility] Work Phone: Start: 11-29-2023 End: 11-29-2023 ambulatory SHAIKH TYSHAWN Not Available Start: 11-25-2023 Telephone encounter Chelsea Acevedo [facility] Neu[facility] Comment on above: Results Start: 11-18-2023 End: 11-18-2023 ambulatory [facility] Start: 11-18-2023 End: 11-18-2023 [facility] Start: 11-15-2023 End: 11-16-2023 ambulatory Shaikh Kerry Villagran MD Facility:[facility] Start: 11-01-2023 End: 11-01-2023 ambulatory MD Shaikh Villagran Work Phone: [facility] Work Phone: Start: 11-01-2023 End: 11-01-2023 Patient encounter procedure MD Shaikh Villagran Work Phone: [facility] Physician [facility] Work Phone: Start: 10-11-2023 End: 10-12-2023 ambulatory Shaikh Kerry Villagran MD Facility:[facility] Start: 09-15-2023 End: 09-16-2023 ambulatory Shaikh Kerry Villagran MD Facility:[facility] Start: 09-01-2023 End: 09-02-2023 ambulatory Kevin De La Vega 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-LIBRARIAN HELPER Facility:[facility] Start: 08-30-2023 Registered Recurring MD Shaikh Villagran Work Phone: [facility] Work Phone: Start: 08-30-2023 End: 08-30-2023 ambulatory Shaikh Tyshawn Facility:[facility] Start: 08-30-2023 End: 08-30-2023 Patient encounter procedure MD Shaikh Villagran Work Phone: [facility] Work Phone: Start: 07-30-2023 ambulatory Apolinar Henry Facility :[facility] Start: 07-21-2023 ([facility] FU) [facility] F/ U Registerd [employer] Adriana Lyn [facility] Start: 07-21-2023 End: 07-21-2023 ambulatory Adriana Lyn Other [facility] Other Start: 07-20-2023 End: 07-21-2023 ambulatory Shaikh Kerry Villagran MD Facility:[facility] Start: 07-05-2023 [facility] f/u Susanne [facility] Start: 07-05-2023 End: 07-06-2023 ambulatory Vanessa Mack MD [facility] Other Start: 07-01-2023 End: 07-01-2023 ambulatory Shaikh Kerry Villagran MD Facility:[facility] Start: 06-30-2023 End: 06-30-[address] Apolinar Henry Work Phone: [facility] Work Phone: Start: 06-30-2023 End: 06-30-2023 ambulatory Apolinar Henry [facility] Work Phone: Start: 06-21-2023 End: 06-22-2023 ambulatory Vanessa Mack MD Facility:[facility] Start: 06-16-2023 End: 06-17-2023 ambulatory Shaikh Kerry Villagran MD Facility:[facility] Start: 06-02-2023 End: 06-03-2023 ambulatory Shaikh Kerry Villagran MD Facility:[facility] Start: 06-01-2023 End: 06-02-2023 ambulatory Adam Betancourt MD Facility:[facility] Start: 06-01-2023 End: 06-02-2023 ambulatory Shaikh Kerry Villagran MD Facility:[facility] Start: 05-31-2023 End: 06-01-2023 ambulatory Vanessa Mack MD Facility:[facility] Start: 05-27-2023 ([facility] FU) [facility] F/ U [employer] Adriana Lyn [facility] Start: 05-27-2023 End: 05-27-2023 ambulatory Adriana Lyn Other [facility] Other Start: 05-05-2023 End: 05-05-[address] Apolinar Henry Work Phone: [facility] Work Phone: Start: 05-05-2023 End: 05-05-2023 ambulatory Apolinar Henry [facility] Work Phone: Start: 04-12-2023 End: 04-12-2023 ambulatory Susanne Jordan Other [facility] Other Start: 04-12-2023 Telephone encounter Susanne Jordan [facility] Start: 03-15-2023 ([facility]/U) Weight Management f/u Susanne Jordan [facility] Start: 03-15-2023 End: 03-15-2023 ambulatory Susanne Jordan Other [facility] Other Start: 02-18-2023 End: 02-19-2023 ambulatory Kevin De La Vega APRN-LIBRARIAN HELPER [facility] Start: 01-20-2023 End: 01-21-2023 ambulatory Shaikh Kerry Villagran MD Facility: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); S/P breast reconstruction Start: 10-21-2022 [facility] Start: 10-21-2022 End: 10-21-2022 Office outpatient visit 25 minutes Apolinar Henry MD Work Phone: [facility] Comment on above: 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); S/P breast reconstruction Start: 10-07-2022 [facility] Start: 10-07-2022 End: 10-07-2022 Postop follow up visit related to original px Apolinar Henry MD Work Phone: [facility] Comment on above: 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); S/P breast reconstruction Start: 09-23-2022 ambulatory [facility] Start: 09-23-2022 End: 09-23-2022 Postop follow up visit related to original debi Henry MD Work Phone: [facility]astic Surgery Comment on above: 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); S/P breast reconstruction Start: 09-16-2022 End: 09-17-2022 [facility] Start: 09-16-2022 End: 09-17-[address] TY BOUDREAUX Facility:[facility] Start: 09-15-2022 [facility] Start: 09-15-2022 End: 09-15-2022 Subsequent hospital visit by physician Apolinar Henry MD Work Phone: [facility] Diagnostic [facility]iology Comment on above: Arrived Start: 08-26-2022 [facility] Start: 08-12-2022 [facility] Start: 08-12-2022 End: 08-12-2022 Postop follow up visit related to original debi Henry MD Work Phone: [facility] Surgery Comment on above: S/P breast reconstru ction (Primary Dx); Personal history of malignant neoplasm of breast; Acquired absence of right breast and nipple Start: 08-05-2022 [facility] Start: 08-05-2022 End: 08-05-2022 Postop follow up visit related to original debi Henry MD Work Phone: [facility]astic Surgery Comment on above: S/P breast reconstru ction (Primary Dx) Start: 07-22-2022 [facility] Start: 07-22-2022 End: 07-22-2022 Postop follow up visit related to original px Apolinar Henry MD Work Phone: [facility]astic Surgery Comment on above: 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); S/P breast reconstruction Start: 07-15-2022 [facility] Start: 07-15-2022 End: 07-15-2022 Postop follow up visit related to original px Apolinar Henry MD Work Phone: [facility] Surgery Comment on above: 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); Personal history of malignant neoplasm of breast; S/P breast reconstruction Start: 07-09-2022 End: 07-09-2022 [facility] Start: 07-09-2022 End: 07-09-2022 Subsequent hospital visit by physician Apolinar Henry MD Work Phone: [facility] Comment on above: Personal history of malignant neoplasm of breast Start: 06-30-2022 [facility] Start: 06-30-2022 End: 06-30-2022 Office outpatient visit 40 minutes Apolinar Henry MD Work Phone: [facility] Plastic Surgery Comment on above: S/P breast reconstru ction (Primary Dx); Acquired absence of right breast and nipple; Personal history of malignant neoplasm of breast Start: 06-25-2022 Encounter for other preprocedural examination SHAIKH Tc VILLAGRAN [facility] Start: 06-23-2022 [facility] Start: 06-22-2022 End: 06-23-2022 ambulatory SHAIKH Tc VILLAGRAN Facility:[facility] Start: 06-22-2022 End: 06-23-2022 Encounter for other preprocedural examination SHAIKH Tc VILLAGRAN Facility: Start: 06-16-2022 ambulatory APOLINAR HENRY [facility] Start: 06-16-2022 Encounter for other preprocedural examination APOLINAR HENRY [facility] Start: 06-16-2022 [facility] Start: 06-16-2022 End: 06-16-2022 Office outpatient visit 25 minutes Apolinar Henry MD Work Phone: [facility] Plastic Surgery Comment on above: Personal history of malignant neoplasm of breast (Primary Dx); Acquired absence of right breast and nipple Start: 05-21-2022 End: 06-20-2022 [facility] Start: 05-20-2022 ambulatory [facility] Start: 05-20-2022 End: 05-20-2022 Office outpatient new 60 minutes Apolinar Henry MD Work Phone: [facility] Plastic Surgery Comment on above: Personal history of malignant neoplasm of breast (Primary Dx); Acquired absence of right breast and nipple Start: 03-24-2022 End: 03-25-2022 ambulatory FREED H FAWWAD Facility: Start: 03-02-2022 End: 03-02-2022 ambulatory FREED H [facility] Facility: Start: 01-13-2022 End: 01-14-2022 ambulatory FREED H FAWWAD Facility: Start: 06-07-2020 End: 06-08-2020 Patient encounter procedure ID Facility:[facility] Start: 08-05-2018 End: 08-05-2018 Emergency department patient visit GRUPO BROUSSARD Facility:[facility] Start: 07-27-2017 End: 10-14-2017 Ambulatory NANCY MARTINEZ Facility:[facility] Procedures Date Procedure Procedure Detail Performing Clinician Start: 03-02-2024 Follow-up visit Follow-up RAMAKRISHNA LÓPEZ Start: 01-21-2024 Reduction mammoplasty Nuno Villagran Work Phone: Start: 08-17-2023 Adult depression scr eening assessment Chelsea Acevedo Start: 09-23-2022 Follow-up visit Follow-up APOLINAR HENRY Start: 09-15-2022 Radiologic exam chest 2 views Apolinar Henry MD Work Phone: Start: 06-07-2020 ANESTH KNEE JOINT SURGERY LASHA SAMUEL Start: 06-07-2020 KNEE ARTHROSCOPY/SURGERY ADAM SKINNER Start: 08-05-2018 Electrocardiogram GRUPO BROUSSARD Plan of Treatment Date Care Activity Detail Author Start: 11-15-2024 Adult BMI Screening Adult BMI Screen ing [facility] Start: 08-23-2024 End: 08-23-2024 Patient encounter procedure 08/23/2024 2:00 PM EST Office Visit [facility] [address] [place] [id number] Angel Cole MD [address] [place] [address] [address] [place] [address] [facility] Start: 08-18-2024 Tobacco Screening Tobacco Screening [facility] Start: 08-17-2024 Depression Screening Depression Scre ening [facility] Start: 03-02-2024 End: 03-02-2024 Patient encounter procedure 03/02/2024 2:00 PM EDT Office Visit [facility] [address] [place] [phone] Ramakrishna López MD [address] [place] [address], [address], [address] [place] [address] [facility] Start: 01-21-[facility]24 [facility] Start: 09-01-2023 Administration of varicella zoster vaccine Zoster (Shingles) Vaccine (2 of 2) [facility] Start: 05-14-2023 COVID-19 Vaccine ( season) COVID-19 Vaccine ( season) [facility] Start: 04-06-2023 MAMMOGRAM LEFT MAMMOGRAM LEFT [facility] Start: 04-06-2023 Screening for malign ant neoplasm of breast MAMMOGRAM LEFT [facility] Start: 01-11-2023 DTaP,Tdap and Td Vaccines (2 - Td or Tdap) DTaP,Tdap and Td Vaccines (2 - Td or Tdap) [facility] Start: 01-11-2023 Tetanus vaccination TETANUS [facility] Start: 11-18-2022 End: 11-18-2022 Patient encounter procedure 11/18/2022 Office Visit Plastic Surgery Apolinar Henry MD [address] [place] [address], [place] [address] [facility]astic Surgery Start: 10-21-2022 End: 10-21-2022 Patient encounter procedure 10/21/2022 Office Visit Plastic Surgery Apolinar Henry MD [address] [place] [address], [place] [address] [facility] Plastic Surgery Start: 10-07-2022 End: 10-07-2022 Patient encounter procedure 10/07/2022 Office Visit Plastic Surgery Apolinar Henry MD [address] [place] [address], [place] [address] [facility] Plastic Surgery Start: 09-23-2022 End: 09-23-2022 Patient encounter procedure 09/23/2022 Office Visit Plastic Surgery Apolinar Henry MD [address] [place] [address], [place] [address] [facility] Plastic Surgery Start: 08-26-2022 End: 08-26-2022 Patient encounter procedure 08/26/2022 Office Visit Plastic Surgery Apolinar Henry MD [address] [place] [address], [place] [address] [facility] Plastic Surgery Start: 08-12-2022 End: 08-12-2022 Patient encounter procedure 08/12/2022 Office Visit Plastic Surgery Apolinar Henry MD [address] [place] [address], [place] [address] [facility] Plastic Surgery Start: 08-05-2022 End: 08-05-2022 Patient encounter procedure 08/05/2022 Office Visit Plastic Surgery Apolinar Henry MD [address] [place] [address] [facility] Plastic Surgery Start: 07-22-2022 End: 07-22-2022 Patient encounter procedure 07/22/2022 Office Visit Plastic Surgery Apolinar Henry MD [address] [place] [address] [facility] Plastic Surgery Start: 07-15-2022 End: 07-15-2022 Patient encounter procedure 07/15/2022 Office Visit Plastic Surgery Apolinar Henry MD [address] [place] [address] [facility] Plastic Surgery Start: 07-09-2022 Subsequent hospital visit by physician 07/09/2022 Hospital Encounter Multispecialty Apolinar Henry MD [address] [place] [address] Personal history of malignant neoplasm of breast [facility] Comment on above: Personal history of malignant neoplasm of breast Start: 07-09-2022 End: 07-09-2022 Admission to same day surgery center 07/09/2022 Surgery Multispecialty Apolinar Henry MD [address] [place] [address] RT BREAST RECONSTRUCTION W/ PLACEMENT TISSUE ENGINE DESIGNER & ADM [facility] Comment on above: RT BREAST RECONSTRUC TION W/ PLACEMENT TISSUE ENGINE DESIGNER & ADM Start: 07-09-2022 End: 07-09-2022 Anesthesia consultation 07/09/2022 Anesthesia Event Multispecialty Deo Moeller DO [address] [place] [address] [facility] Start: 07-09-2022 End: 07-09-2022 Brst rcnstj immt/dlyd w/tiss community coordinator sbsq xpnsj RECONSTRUCTION BREAST TISSUE ENGINE DESIGNER INCLUDING SUBSEQUENT EXPANDERS Personal history of malignant [...] Visit Plastic Surgery Apolinar Henry MD [address] [place] [address] [facility] Surgery Start: 05-14-2022 Influenza vaccination INFLUENZA VACC INE (#1) [facility] Start: 12-03-2021 COVID-19 VACCINE (4 - Booster for Pfizer series) COVID-19 VACCINE (4 - Booster for Pfizer series) [facility] Start: 09-30-2021 COVID-19 VACCINE (4 - Booster for Pfizer series) COVID-19 VACCINE (4 - Booster for Pfizer series) [facility] Start: 2015 Fall Risk Screening Fall Risk Screen ing [facility] Start: 2015 Pneumococcal vaccination PNEUM OCOCCAL VACCINE SERIES (1 - PCV) [facility] Start: 2000 Zoster vaccine hzv l vera for subcutaneous use ZOSTER (SHINGLES) VACCINE (1 of 2) [facility] Start: 1995 Colonoscopy COLORECTAL CAN CER SCREENING DISCUSSION [facility] Start: 1995 Screening for malign ant neoplasm of colon COLORECTAL CANCER SCREENING DISCUSSION [facility] Start: 1990 Fasting lipid profile LIPID SCREENIN G [facility] Start: 1990 Lipid panel LIPID SCREENING [facility] Start: 1980 MAMMOGRAM LEFT MAMMOGRAM LEFT [facility] Start: 1971 Screening for malign ant neoplasm of cervix CERVICAL CANCER SCREENING DISCUSSION [facility] Start: 1969 Third diphtheria, tetanus and acellular pertussis (DTaP) vaccination TDAP (ADULT) [facility] Start: 1968 Adult BMI Follow Up Plan Adult BMI F ollow Up Plan [facility] Start: 1968 Tetanus vaccination TETANUS [facility] Start: 1950 Hepatitis C antibody , confirmatory test HEPATITIS C VIRUS SCREENING [facility] Start: 1950 Hepatitis C screening HEPATITI S C VIRUS SCREENING [facility] Start: 1950 Medicare Annual Well ness Visit Medicare Annual Wellness Visit [facility] Start: 1950 Screening for osteoporosis DEXA SCAN DISCUSSION [facility] Start: 1950 Thyroid stimulating hormone measurement TSH [facility] Blood chemistry [facility] Complete blood count [facility] Patient referral [facility] Work Phone: Immunizations Immunization Date Immunization Notes Care Provider Padilla eduardo 07-07-2023 zoster vaccine, unspecified formulation Chelsea Acevedo [facility] 08-05-2021 influenza virus vaccine, unspecified formulation Apolinar Henry MD Work Phone: [facility] Payers Date Payer Category Payer [employer] ( [employer] others) [id number] 12-10-2022 [employer] others) [id number] .19 12-10-2022 Self-pay 09-13-2021 [employer] others) [id number] 05-05-2021 [employer] ( [employer] others) [id number]. 3.6786 71.315 05-05-2021 Unknown 09-13-2020 Medicare [id number]. 1.13.172.2.7.3.6786 71.315 03-13-2019 Unknown [id number] 07-27-2017 Medicare [id number] 06-04-2016 [employer] ( [employer] others) [id number] 09-13-1959 [employer] ( and others) [id number] 09-13-1959 Medicare [id number] 1950 Unknown [id number] 2.16.840.1.483298.3.579.2.647 1950 Unknown [id number] 2.16.840.1.489726.3.579.2.983 1950 Unknown [id number] 2.16.840.1.778543.3.579.2.983 1950 Unknown [id number] 2.16.840.1.284159.3.579.2.983 1950 Unknown [id number] 2.16.840.1.710992.3.579.2.983 1950 Unknown [id number] 2.16.840.1.573129.3.579.2.983 1950 Unknown [id number] 2.16.840.1.154048.3.579.2.983 1950 Unknown [id number] 2.16.840.1.560868.3.579.2.983 1950 Unknown [id number] 2.16.840.1.117631.3.579.2.983 1950 Unknown [id number] 2.16.840.1.560847.3.579.2.983 1950 Unknown [id number] 2.16.840.1.225810.3.579.2.983 1950 Unknown [id number] 2.16.840.1.059221.3.579.2.983 1950 Unknown [id number] 2.16.840.1.563598.3.579.2.983 1950 Unknown [id number] 2.16.840.1.518096.3.579.2.983 1950 Unknown [id number] 2.16.840.1.079585.3.579.2.983 1950 Unknown [id number] 2.16.840.1.740664.3.579.2.983 1950 Unknown [id number] 2.16.840.1.990268.3.579.2.983 1950 Unknown [id number] 2.16.840.1.127307.3.579.2.983 1950 Unknown [id number] 2.16.840.1.645404.3.579.2.983 1950 Unknown [id number] 2.16.840.1.190530.3.579.2.593 1950 Unknown [id number] 2.16.840.1.338783.3.579.2.593 1950 Unknown [id number] 2.16.840.1.636189.3.579.2.593 1950 Unknown [id number] 2.16.840.1.604828.3.579.2.593 1950 Unknown [id number] 2.16.840.1.815574.3.579.2.593 1950 Unknown [id number] 2.16.840.1.663419.3.579.2.593 1950 Unknown [id number] 2.16.840.1.097317.3.579.2.593 1950 Unknown [id number] 2.16.840.1.363693.3.579.2.593 1950 Unknown [id number] 2.16.840.1.510939.3.579.2.593 1950 Unknown [id number] 2.16.840.1.304530.3.579.2.196 1950 Unknown [id number] 2.16.840.1.091748.3.579.2.196 1950 Unknown [id number] 2.16.840.1.843868.3.579.2. 1950 Unknown [id number] 2.16.840.1.712729.3.579.2.196 1950 Unknown [id number] 2.16.840.1.317619.3.579.2. 1950 Unknown [id number] 2.16.840.1.638251.3.579.2.196 1950 Unknown [id number] 2.16.840.1.089043.3.579.2. 1950 Unknown [id number] 2.16.840.1.018143.3.579.2.196 1950 Unknown [id number] 2.16.840.1.149852.3.579.2. 1950 Unknown [id number] 2.16.840.1.120074.3.579.2.196 1950 Unknown [id number] 2.16.840.1.703509.3.579.2. 1950 Unknown [id number] 2.16.840.1.655692.3.579.2.196 1950 Unknown [id number] 2.16.840.1.311377.3.579.2. 1950 Unknown [id number] 2.16.840.1.545221.3.579.2. 1950 Unknown [id number] 2.16.840.1.555857.3.579.2. 1950 Unknown [id number] 2.16.840.1.360603.3.579.2. 1950 Unknown [id number] 2.16.840.1.898118.3.579.2.196 1950 Unknown [id number] 2.16.840.1.235862.3.579.2.196 1950 Unknown [id number] 2.16840.1.547632.3.579.2.1286 1950 Unknown [id number] 2.16.840.1.296389.3.579.2.1286 1950 Unknown [id number] 2.840.1.105296.3.579.2.1286 1950 Unknown [id number] 2.840.1.176738.3.579.2.1286 1950 Unknown [id number] 2.840.1.574964.3.579.2.1259 1950 Unknown [id number] 2.840.1.188909.3.579.2.1259 1950 Unknown [id number] 2.840.1.330798.3.579.2.1259 09-11-1948 Unknown [id number] 2.840.1.002940.3.579.2.196 Department [facility] ([facility] and others) [id number] 2.840.1.073658 .19 Medicare [id number] Private Health Insurance [id number] Unknown [id number] 2.840.1.988948.3.579.2.283 Unknown [id number] 2.840.1.377325.3.579.2.531 Unknown [id number] 2.840.1.485877.3.579.2.462 Unknown [id number] 2.840.1.941998.3.579.2.462 Unknown [id number] 2.840.1.703101.3.579.2.462 Unknown [id number] 2.840.1.581266.3.579.2.462 Unknown [id number] 2.840.1.794158.3.579.2.462 Unknown [id number] 2.16.840.1.777386.3.579.2.462 Unknown [id number] 2.16.840.1.964408.3.579.2.462 Unknown [id number] 2.16.840.1.711847.3.579.2.462 Unknown [id number] 2.16.840.1.743838.3.579.2.462 Unknown [id number] 2.16.840.1.519980.3.579.2.462 Unknown [id number] 2.16.840.1.224218.3.579.2.462 Unknown [id number] 2.16.840.1.754507.3.579.2.462 Social History Date Type Detail Facility Start: 05-20-2022 End: 01-06-2023 Tobacco smoking status NHIS Never smoked tobacco [facility] Start: 05-20-2022 End: 01-06-2023 Tobacco use and exposure Smokeless tobacco non-user [facility] Start: 05-20-2022 Alcohol intake Ex-drinker (finding) [facility] Start: 1950 Sex Assigned At Not on file A [facility] Start: 06-16-2022 End: 08-18-2023 Alcohol intake Current drinker of alcohol (finding) [facility] Start: 06-16-2022 History SDOH Alcohol Comment SELDOM [facility] Start: 06-29-2022 End: 07-09-2022 Exposure to SARS-CoV-2 (event) Not sure [facility] Start: 10-24-2020 End: 08-18-2023 Sex Assigned At [facility] Start: 05-05-2023 End: 12-30-2023 Tobacco smoking status NHIS Unknown if ever smoked [facility] Start: 1950 Sex Assigned At Female [facility] Start: 10-24-2020 End: 08-18-2023 History of Social function [facility] Adolescent depressio n screening assessment 1 [facility] NEGATED: Highlighted row [facility] Medical Equipment Procedure Code Equipment Code Equipment Origin al Text Equipment Identifier Dates [employer] [place] [employer] [facility] Breast Implant [id number] Start: 07-09-2022 Goals Date Patient Goal Desired Activity /State Functional Status Date Assessment Result Facility 01-21-2024 Functional status Activity Abili ty With Assist of 1 [facility] Work Phone: Mental Status Date Assessment Result Facility 01-21-2024 Cognitive function Voice/Name [facility] Work Phone: Clinical Notes 01-13-2022 to 01-21-2024 Note Date & Type Note Facility 01-21-2024 Discharge summary Note Date/Time January 21, 2024 10:39am [facility] Medical Records Department [address] [place] [address] Instructions for Home/Discharge Instructions 01/21/24 1037 MR#: [id number] Acct: [id number] Name: BERENICE NOLASCO Rep #:[id number] : 1950 73 From: Apolinar Henry MD PCP: Shaikh Villagran Status[place] Discharge Instructions Dressing / Incision Additional Dressing/Incision [...] Henry MD CC: Shaikh Tyshawn ~ Signed [facility] Work Phone: 1(218) 980-787005-10-2024 Procedure [facility] 01-21-2024 History and physical note Author Apolinar Henry [facility] January 21, 2024 7:25am Note Date/Time January 21, 2024 7:25a m [facility] Medical Records Department [address] [place] [address] History & Physical Exam 01/21/24 0722 MR#: [id number] Acct: [id number] Name: BERENICE NOLASCO Rep #:[id number] : 1950 73 From: Apolinar Henry MD PCP: Shaikh Villagran Status:[facility] Location: [place] [address] History and Physical Date of Admission: 01/21/24 The patient is examined and there are no changes from the H&P dated 01/06/24. She presents for left breast reduction for symmetry following reconstruction on her right breast. Also right breast community coordinator port removal. Informed consent was obtained. Assessment & Plan Assessment/Plan (1) S/P breast reconstruction, right: (2) History of cancer of right breast: (3) Breast hypertrophy: (4) Breast asymmetry between [place] breast and reconstructed breast: PLAN: Plan For left breast reduction and right community coordinator port removal. 01/21/24 07 <Electronically signed by Apolinar Henry MD> Cosigner Signature (if applicable): CC: Dr. Apolinar Henry MD; Shaikh Tyshawn~ Signed [facility] Work Phone: 1(997) 740-746905-10-2024 [facility] Medical Records Department [address] [place] [address] History Physical Exam 01/21/24721 MR#: [id number] Acct: [id number] Name: BERENICE NOLASCO Rep #: [id number] : 1950 73 From: Apolinar Henry MD PCP: Shaikh Villagran Status[place] Location: [place] [address] History and Physical Date of Admission: 01/21/24 The patient is examined and there are no changes from the H P dated 01/06/24. She presents for left breast reduction for symmetry following reconstruction on her right breast. Also right breast community coordinator port removal. Informed consent was obtained. Assessment Plan Assessment/Plan (1) S/P breast reconstruction, right: (2) History of cancer of right breast: (3) Breast hypertrophy: (4) Breast asymmetry between [place] breast and reconstructed breast: PLAN: Plan For left breast reduction and right community coordinator port removal. 01/21/24724 Cosigner Signature (if applicable): CC: Dr. Apolinar Henry MD; Shaikh Tyshawn [facility]2024 Progress note Author Apolinar Henry [facility] December 14, 2023 4:43pm Note Date/Time December 14, 2023 3:58 pm [facility] Plastic & Reconstructive Surgery [address], [address] [place], [place] [address] OFFICE VISIT Date of Service: 12/14/23 MR#: [id number] Acct: [id number] Name: BERENICE NOLASCO Rep #: [id number] : 1950 Provider: Dr. Dolly Henry MD Age/Sex: 73/F [facility] [facility] Status: Signed Intake Vital Signs 06/30/23 [...] mg PO HS 05/05/23 [History Confirmed 12/14/23] geqsunrd-iwp-lukqf acid 0.4 mg-lycopene 300 mcg-lutein 250 mcg [...] future surgery Left breast reduction, removal right community coordinator pot. [facility] Medical History (Updated 05/05/23 @ [...] Exam Details The patient's right breast tissue community coordinator is in good position and the port [...] remove the port on the right tissue community coordinator whichhas the capability of functioning as a [...] Z85.3 Breast hypertrophy N62 Breast asymmetry between [place] breast and reconstructed breast N65.1 Assessment and Plan (No Qualifiers) Assessment and Plan (1) History of cancer of right breast: Status: Acute (2) Breast hypertrophy: Status: Acute (3) Breast asymmetry between [place] breast and reconstructed breast: Status: Acute Plan Details Additional Comments: We will obtain preauthorization for the proposed procedure of left breast reduction for symmetry and removal of the community coordinator port right breast 12/14/23 1643 <Electronically signed by Apolinar gar MD> Date _ Apolinar Henry MD Cosigner Signature: Date (if applicable) CC: ~ [facility] Work Phone: 1(535) 479-616803-14-2024 Miscellaneous Notes* Telephone Encounter - Chelsea Acevedo - 11/25/2023 3:52 PM EDT Patient called in asking to discuss results of EEG and MRI that were completed on 11/18/23. Patientis also asking is results could be forwarded to her PCP's office. Fax number [phone] * Telephone Encounter - Suzanna Cuadra RN [...] Villagran at provided #. [facility] Telephone encounter Note* Telephone Encounter - Chelsea Acevedo - 11/25/2023 3:52 PM EDT Patient called in asking to discuss results of EEG and MRI that were completed on 11/18/23. Patientis also asking is results could be forwarded to her PCP's office. Fax number [phone] [facility]03-14-2024 Telephone encounter Note* Telephone Encounter - Suzanna Cuadra RN - 11/25/2023 3:52 PM EDT Please review and advise on next steps. [facility]03-14-2024 Telephone encounter Note* Telephone Encounter - Ramakrishna López MD - 11/25/2023 3:52 PM EDT MRI shows non specific ischemic changes EEG is normal [facility] Work Phone: 1(651) 815-634203-14-2024 Telephone encounter Note* Telephone Encounter - Suzanna Cuadra RN - 11/25/2023 3:52 PM EDT Patient informed of results and voiced understanding. Results faxed as requested to Dr. Villagran at provided #. 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 23 Oct, 2023 Hyperlipidemia (ICD-10 - E78.5) Jun, GERD (gastroesophageal [...] Encounter for weight management (ICD-10 - Z76.89) [facility] Other 09-20-2023 NoteBREAST IMAGING CONSULTATION: 06/01/2023 CLINICAL: Screening. Comparison is made to exams dated: 04/06/2022 mammogram and 03/13/2021 [facility]. The tissue of left breast is heterogeneously [...] may not be detected on mammograms. The [employer] supports annual screening mammography starting at age 40. Carol frye/mello:06/02/2023 09:27:52 Glove Former(s): RT Delmer(R)(M), [facility] letter sent: New Mammo Normal B1/2 Mammogram BI-RADS: 2 Benign Final Dictated by: Carol Tran DO Signed by: Carol Tran DO Signed (Electronic Signature): 06/02/2023 9:27 am (If Report Is Signed, Electronically Signed in Other Vendor System)[facility] NoteChief Complaint Patient presents for evaluation of left inguinal bulge. History of Present Illness 73 year old female, patient of Dr. Villagran ([place], [place]) Patient presents with a palpable bulge in the left groin area. This has been ongoing for a long time. Patient reports worsening pain. Specific triggers include: none. Notes constipation. States that bowels move approximately once a week. Reports that bulge is not reducible. An ultrasound was obtained 05/07/2023, at [facility]. She has history of myocardial infarction, that occurred in 2013during a surgery. Review of Systems Constitutional: No fevers, chills, sweats, weight loss or weight gain Respiratory: No shortness of breath, cough Cardiovascular: +CAD, h/o NC Gastrointestinal: +See HPI Liver: No jaundice, hepatitis [...] hyperplastic & tubular adenomas (04/2019) COVID-19 (09/2021) NC (myocardial infarction) (2013) Morbid obesity with body [...] signed by Emely Zendejas PA-C 06/02/2023 09:[address] [facility] 05-27-2023 Evaluation note* Encounter Date [...] to 30 g/day -NEW: increase protein foods [facility] Other 09-07-2023 NotePatient Education Materials Name: Berenice [...] right away to prevent serious problems. ? [id number] [employer]. [address] [place] [address]. All rights reserved. This information is not intended as a substitute for professional medical care. Always follow your healthcare professional's instructions.[facility] Evaluation note* Encounter Date Diagnosis Assessment [...] Encounter for weight management (ICD-10 - Z76.89) [facility] Other 03-08-2023 History of Present illness Narrative* [...] the decision is whether to leave the community coordinator and removal Of the port were to [...] IN 2017 Malignant neoplasm of female breast NC (myocardial infarction) with knee scope PVD (peripheral vascular disease) Past Surgical History: Procedure Laterality Date RECONSTRUCTION BREAST TISSUE ENGINE DESIGNER INCLUDING SUBSEQUENT EXPANDERS Right 07/09/2022 Laterality: Right; Surgeon: Apolinar Henry MD; Location: [facility] OR IMPLANTATION BIOLOGIC IMPLANT FOR SOFT TISSUE REINFORCEMENT ADD-ON PX Right 07/09/2022 RT BREAST RECONSTRUCTION W/ PLACEMENT TISSUE ENGINE DESIGNER & ADM/ 150 CC FILL MASTECTOMY Right 1992 BLADDER REPAIR HYSTERECTOMY KNEE SURGERY Bilateral 2016 AND HAD NC DURING SURGERY ORAL SURGERY REMOVAL CATARACT (PEM) [...] kg/m Smoking Status Never The patient's right community coordinator is in good position. The overlying tissue [...] Follow-up later this year documented [facility] History of Present illness Narrative* Raphael [...] IN 2017 Malignant neoplasm of female breast NC (myocardial infarction) with knee scope PVD (peripheral vascular disease) Past Surgical History: Procedure Laterality Date RECONSTRUCTION BREAST TISSUE ENGINE DESIGNER INCLUDING SUBSEQUENT EXPANDERS Right 07/09/2022 Laterality: Right; Surgeon: Apolinar Henry MD; Location: [facility] IMPLANTATION BIOLOGIC IMPLANT FOR SOFT TISSUE REINFORCEMENT ADD-ON PX Right 07/09/2022 RT BREAST RECONSTRUCTION W/ PLACEMENT TISSUE ENGINE DESIGNER & ADM/ 150 CC FILL MASTECTOMY Right 1992 BLADDER REPAIR HYSTERECTOMY KNEE SURGERY Bilateral 2017 AND HAD NC DURING SURGERY ORAL SURGERY REMOVAL CATARACT (PEM) [...] Status Never Patient with right breast tissue community coordinator. She has left breast ptosis and hypertrophy. The port is in satisfactory position. The patient has many questions and is undecided regarding further reconstructive plans. She is interested in matching the left breast however this breast is ptotic and larger. I indicated its more difficult to reconstruct a breast that looks identical to that side. Employee Relations Representative is at its maximal volume of 390 mL for which it could be As a permanent implant. Discussed with the patient that we could consider reassessment in a month to allow the tissue on the right side to relax. After that time we can review the options which may include leaving the community coordinator in place or overexpansion with eventual plans for replacement with a permanent implant. I have reviewed massage of the implant to help soften the pocket. Assessment: Ongoing right breast reconstruction Plan: Pt to RETURN in 1 month FOR RECHECK. They are encouraged to call in the interim with any problems or questions relating to this encounter. documented in this encounterMer[facility] History of Present illness Narrative* Lena [...] evaluation of continued filling of her tissue community coordinator. She states she had pain following the [...] IN 2017 Malignant neoplasm of female breast NC (myocardial infarction) with knee scope PVD (peripheral vascular disease) Past Surgical History: Procedure Laterality Date RECONSTRUCTION BREAST TISSUE ENGINE DESIGNER INCLUDING SUBSEQUENT EXPANDERS Right 07/09/2022 Laterality: Right; Surgeon: Apolinar Henry MD; Location: [facility] IMPLANTATION BIOLOGIC IMPLANT FOR SOFT TISSUE REINFORCEMENT ADD-ON PX Right 07/09/2022 RT BREAST RECONSTRUCTION W/ PLACEMENT TISSUE ENGINE DESIGNER & ADM/ 150 CC FILL MASTECTOMY Right 1993 BLADDER REPAIR HYSTERECTOMY KNEE SURGERY Bilateral 2016 AND HAD NC DURING SURGERY ORAL SURGERY REMOVAL CATARACT (PEM) [...] expansion for 3 months before removing the community coordinator and placement of the permanent implant. She presently has 330 mL in and we will put 60 mL in for her to assess the size. The pts Tissue Employee Relations Representative was Filled with 60 cc's of Injectable Saline (unilaterally) after prepping the skin with alcohol. She tolerated the procedure well. She is to follow up in 2 Weeks for evaluation and possible further expansion. Assessment: Ongoing right breast reconstruction with continued filling of her tissue community coordinator Plan: Pt to RETURN in 2 weeks FOR RECHECK. They are encouraged to call in the interim with any problems or questions relating to this encounter. documented in this encounterMer[facility]01-11-[facility]23 History of Present illness Narrative* Ameena [...] IN 2017 Malignant neoplasm of female breast NC (myocardial infarction) with knee scope PVD (peripheral vascular disease) Past Surgical History: Procedure Laterality Date RECONSTRUCTION BREAST TISSUE ENGINE DESIGNER INCLUDING SUBSEQUENT EXPANDERS Right 07/09/2022 Laterality: Right; Surgeon: Apolinar Henry MD; Location: [facility] IMPLANTATION BIOLOGIC IMPLANT FOR SOFT TISSUE REINFORCEMENT ADD-ON PX Right 07/09/2022 RT BREAST RECONSTRUCTION W/ PLACEMENT TISSUE ENGINE DESIGNER & ADM/ 150 CC FILL MASTECTOMY Right 1992 BLADDER REPAIR HYSTERECTOMY KNEE SURGERY Bilateral 2017 AND HAD NC DURING SURGERY ORAL SURGERY REMOVAL CATARACT (PEM) [...] side which is nontender. The pts Tissue Employee Relations Representative was Filled with The 75 cc's of [...] relating to this encounter. documented in this [facility]Mer[facility]11-30-[facility]22 History of Present illness Narrative* Ameena [...] IN 2017 Malignant neoplasm of female breast NC (myocardial infarction) with knee scope Past Surgical History: Procedure Laterality Date RECONSTRUCTION BREAST TISSUE ENGINE DESIGNER INCLUDING SUBSEQUENT EXPANDERS Right 07/09/2022 Laterality: Right; Surgeon: Apolinar Henry MD; Location: [facility] IMPLANTATION BIOLOGIC IMPLANT FOR SOFT TISSUE REINFORCEMENT ADD-ON PX Right 07/09/2022 RT BREAST RECONSTRUCTION W/ PLACEMENT TISSUE ENGINE DESIGNER & ADM/ 150 CC FILL MASTECTOMY Right 1992 BLADDER REPAIR HYSTERECTOMY KNEE SURGERY Bilateral 2016 AND HAD NC DURING SURGERY ORAL SURGERY REMOVAL CATARACT (PEM) [...] There is no discoloration. The pts Tissue Employee Relations Representative was Filled with 35 cc's of Injectable Saline (bilaterally/unilaterally) after prepping the skin with alcohol. She tolerated the procedure well. She is to follow up in 2 Weeks for evaluation and further expansion. Assessment: Acquired absence right breast. Patient for expansion of tissue community coordinator Plan: Pt to RETURN in 2 weeks FOR RECHECK. They are encouraged to call in the interim with any problems or questions relating to this encounter. documented in this [facility]11-23-2022 History of Present illness Narrative* Ameena Jackson [...] IN 2017 Malignant neoplasm of female breast NC (myocardial infarction) with knee scope Past Surgical History: Procedure Laterality Date RECONSTRUCTION BREAST TISSUE ENGINE DESIGNER INCLUDING SUBSEQUENT EXPANDERS Right 07/09/2022 Laterality: Right; Surgeon: Apolinar Henry MD; Location: [facility] IMPLANTATION BIOLOGIC IMPLANT FOR SOFT TISSUE REINFORCEMENT ADD-ON PX Right 07/09/2022 RT BREAST RECONSTRUCTION W/ PLACEMENT TISSUE ENGINE DESIGNER & ADM/ 150 CC FILL MASTECTOMY Right 1993 BLADDER REPAIR HYSTERECTOMY KNEE SURGERY Bilateral 2017 AND HAD NC DURING SURGERY ORAL SURGERY REMOVAL CATARACT (PEM) [...] relating to this encounter. documented in this encounterMer[facility]11-09-2022 History of Present illness Narrative* Ameena [...] IN 2017 Malignant neoplasm of female breast NC (myocardial infarction) with knee scope Past Surgical History: Procedure Laterality Date RECONSTRUCTION BREAST TISSUE ENGINE DESIGNER INCLUDING SUBSEQUENT EXPANDERS Right 07/09/2022 Laterality: Right; Surgeon: Apolinar Henry MD; Location: [facility] IMPLANTATION BIOLOGIC IMPLANT FOR SOFT TISSUE REINFORCEMENT ADD-ON PX Right 07/09/2022 RT BREAST RECONSTRUCTION W/ PLACEMENT TISSUE ENGINE DESIGNER & ADM/ 150 CC FILL MASTECTOMY Right 1992 BLADDER REPAIR HYSTERECTOMY KNEE SURGERY Bilateral 2016 AND HAD NC DURING SURGERY ORAL SURGERY REMOVAL CATARACT (PEM) [...] right breast reconstruction with placement of tissue community coordinator Plan: Pt to RETURN in 2 weeks FOR RECHECK. They are encouraged to call in the interim with any problems or questions relating to this encounter. documented in this [facility]11-02-2022 History of Present illness Narrative* Ameena Jackson [...] for evaluation of Right breast reconstruction with community coordinator on 07/09/22. She complains of soreness, 7/10 [...] IN 2017 Malignant neoplasm of female breast NC (myocardial infarction) with knee scope Past Surgical History: Procedure Laterality Date RECONSTRUCTION BREAST TISSUE ENGINE DESIGNER INCLUDING SUBSEQUENT EXPANDERS Right 07/09/2022 Laterality: Right; Surgeon: Apolinar Henry MD; Location: [facility] IMPLANTATION BIOLOGIC IMPLANT FOR SOFT TISSUE REINFORCEMENT ADD-ON PX Right 07/09/2022 Laterality: Right; Surgeon: Apolinar Henry MD; Location: [facility] MASTECTOMY Right 1992 BLADDER REPAIR HYSTERECTOMY KNEE SURGERY Bilateral 2016 AND HAD NC DURING SURGERY ORAL SURGERY REMOVAL CATARACT (PEM) [...] breast reconstruction with placement of a tissue community coordinator Plan: Pt to RETURN in 1 week FOR RECHECK. They are encouraged to call in the interim with any problems or questions relating to this encounter. documented in this encounterMer[facility]10-27-[facility] Nurse Surgical operation note* Deanna Jimenez [...] Les. Encouraged to use CPAP at home. [facility] Nurse Note* Deanna Jimenez RN - [...] Patient connected to Monitors. documented in this encounterMer[facility]10-27-2022 Nurse Surgical operation note* Alphonse Craft [...] pain, VSS, resp even and unlabored. . [facility] Discharge instructions* Discharge Instructions* Apolinar [...] Care Everywhere. * Incentive Spirometer: General Info (Cymro) documented in this encounterMer[facility]10-27-2022 Note* Brief Op Note - Apolinar Henry MD - 07/09/2022 2:34 PM EDT POST OPERATIVE/PROCEDURE NOTE Berenice Nolasco ([id number]) SURGEON Surgeon(s) and Role: * Apolinar Henry MD - Primary DOG GROOMER YEYO ANESTHESIOLOGIST TIRE WORKER: Real Hahn APRN-TIRE WORKER SURGICAL STAFF Pharmaceutical Physician: Marleni Swartz RN; Joanna Flores RN Monitoring Nurse: Linsey Reyes RN Registered Nurse Mechanical Cad Designer: Cady Vasquez RN Scrub Person: Laisha An LPN Farm Hand: Janet Feldman PROCEDURE PERFORMED Right breast reconstruction with placement of tissue community coordinator ([id number]) 150cc initial fill PRIMARY CLOSURE Yes [...] Henry MD July 09, 2022 2:34 PM [facility] Miscellaneous Notes* Brief Op Note - Apolinar Henry MD - 07/09/2022 2:34 PM EDT POST OPERATIVE/PROCEDURE NOTE Berenice Nolasco ([id number]) SURGEON Surgeon(s) and Role: * Apolinar Henry MD - Primary DOG GROOMER LOAD TALLIER ANESTHESIOLOGIST TIRE WORKER: Real Hahn APRN-TIRE WORKER SURGICAL STAFF Pharmaceutical Physician: Marleni Swartz RN; Joanna Flores RN Monitoring Nurse: Linsey Reyes RN Registered Nurse Mechanical Cad Designer: Cady Vasquez RN Scrub Person: Laisha An LPN Farm Hand: Janet Feldman PROCEDURE PERFORMED Right breast reconstruction with placement of tissue community coordinator ([id number]) 150cc initial fill PRIMARY CLOSURE Yes [...] 09, 2022 2:34 PM documented in this encounterMer[facility]10-27-2022 Nurse Surgical operation note* Joanna Flores RN - 07/09/2022 12:24 PM EDT OR room temp 68f Humidity 305 Firescore 2 Prep dry prior to draping. Procedure completed. Dressings applied. Patient transported to PACU by holly segovia RN and Nuno hahn CRNA. Report given to alphonse DIAZ upon arrival. Patient connected to Monitors. [facility] History and physical note* Apolinar Henry MD - 07/09/2022 10:58 AM EDT I have examined the patient and reviewed the previous H&P completed on date 06/24/22 and there are no changes. See paper H&P in chart Apolinar Henry MD, 07/09/2022, 10:59 AM. [facility] History and physical note* Apolinar Henry MD - 07/09/2022 10:58 AM EDT I have examined the patient and reviewed the previous H&P completed on date 06/24/22 and there are no changes. See paper H&P in chart Apolinar Henry MD, 07/09/2022, 10:59 AM. documented in this encounterMer[facility]10-18-2022 History of Present illness Narrative* Ameena [...] IN 2017 Malignant neoplasm of female breast NC (myocardial infarction) with knee scope Past Surgical History: Procedure Laterality Date MASTECTOMY Right 1993 BLADDER REPAIR HYSTERECTOMY KNEE SURGERY Bilateral 2017 AND HAD NC DURING SURGERY ORAL SURGERY REMOVAL CATARACT (PEM) [...] procedure of Right breast reconstruction with tissue community coordinator Was thoroughly reviewed with the patient. The [...] right breast reconstruction with placement of tissue community coordinator Plan: We will proceed with surgery in the near future and the patient will call with any further questions. I spent 50 minutes total time with the patient. documented in this [facility]10-04-2022 History of Present illness Narrative* Ameena Jackson [...] We discussed direct to implant versus tissue community coordinator and decided on tissue community coordinator to allow flexibility in choosing her size. She understands in a second surgery would be required to either remove the port or replace the implant. I measured her for an implant today which will be a tissue community coordinator--smooth round spectrum [id number] an approximately 12 cm diameter The procedure of Right breast reconstruction with tissue community coordinator was thoroughly reviewed with the patient. The [...] for further preoperative preparation documented in this encounterMer[facility]09-07-2022 History of Present illness Narrative* Ameena [...] types of reconstructions described included: 1) Tissue community coordinator and implant based reconstruction, both single and [...] after considering the options documented in this encounterMer[facility]05-03-2022 NotePROCEDURE: XR HIPS CHARLIE 5V W [...] Electronically authenticated by: TY BOUDREAUX Date: 2022-01-13 17:45[facility] Diagnosis Personal history of malignant neoplasm of breast- Primary 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 absence of breast and nipple documented in this encounter [facility]* Diagnosis Personal history of malignant neoplasm of breast- Primary 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 absence of breast and nipple 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 absence of breast and nipple documented in this encounter [facility]* Diagnosis S/P breast reconstruction- Primary Breast replaced by other means 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 absence of breast and nipple Personal history of malignant neoplasm of breast 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 absence of breast and nipple documented in this encounter [facility]* Diagnosis Acquired absence of right breast- Primary Acquired absence of right breast Personal history of malignant neoplasm of breast Personal history of malignant neoplasm of breast [facility] Acquired absence of right breast and nipple- Primary Acquired absence of breast and nipple Personal history of malignant neoplasm of breast S/P breast reconstruction Breast replaced by other means documented in this encounter [facility]* Diagnosis Acquired absence of right breast and nipple- Primary Acquired absence of breast and nipple S/P breast reconstruction Breast replaced by other means [facility]* Diagnosis S/P breast reconstruction- Primary Breast replaced by other means documented in this encounter [facility]* Diagnosis S/P breast reconstruction- Primary Breast replaced by other means 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 absence of breast and nipple documented in this encounter [facility]* Diagnosis Right-sided chest pain documented in this encounter [facility]* Diagnosis Acquired absence of right breast and nipple- Primary Acquired absence of breast and nipple S/P breast reconstruction Breast replaced by other means documented in this encounter [facility]* Diagnosis Acquired absence of right breast and nipple- Primary Acquired absence of breast and nipple S/P breast reconstruction Breast replaced by other means documented in this encounter [facility]Evaluation noteNo InformationNort [employer] Other Evaluation noteNo assessment information available [facility] Work Phone: Evaluation note* Diagnosis Onset Date Resolution Status Breast asymmetry between [place] breast and reconstructed breast acute Breast hypertrophy acute History of cancer of right breast acute [facility] Work Phone: Evaluation note* Diagnosis Onset Date Resolution Status BMI 32.0-32.9,adult acute Depression acute GERD (gastroesophageal reflux disease) acute Hyperlipidemia acute Hypothyroid acute Obesity acute NARA on CPAP acute [facility] Work Phone: Evaluation note* Diagnosis Onset Date [...] breast acute S/P breast reconstruction, right acute [facility] Work Phone: Evaluation note* Diagnosis Onset Date [...] breast acute S/P breast reconstruction, right acute [facility] Work Phone: History general Narrative - Reported* [...] side breast tissue expand er Surgical History Assonet teeth Surgical History 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 Surgical History Heart cath Surgical History Dental implant Hospitalization History See above Adsame Other History general Narrative - Reported* Type [...] side breast tissue expand er Surgical History Assonet teeth Surgical History 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 Surgical History Heart cath Surgical History Dental implant Surgical History Inguinal hernia repair Surgical History Steroid injections in back Hospitalization History See above Adsame Other InstructionsNot on filedocumented in this encounter [facility] Narrative* Auth/Cert Specialty Diagnoses / Procedures Referred By Felix t Referred To Contact Diagnoses 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 Personal history of malignant neoplasm of breast [Z85.3] 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] Procedures ID TISSUE ENGINE DESIGNER PLACEMENT BREAST RECONSTRUCTION ID IMPLNT BIO IMPLNT FOR SOFT TISSUE REINFORCEMENT RECONSTRUCTION BREAST TISSUE ENGINE DESIGNER INCLUDING SUBSEQUENT EXPANDERS IMPLANTATION BIOLOGIC IMPLANT FOR SOFT TISSUE REINFORCEMENT ADD-ON PX Apolinar Henry MD [address] [place] [address] Referral ID Status Reason Start Date Expiration Date Visits Re quested Visits Authorized [id number] 06/10/20[address] [facility] Purpose Family History No Family [...] Date/ Time Name of Medical Power of Health Science Specialist SPOUSE December 30, 2023 10:37am Living Will Yes December 30, 2023 10:37am Power of Health Science Specialist Yes December 29 10:37am Advance Directive Response Recorded Date/ Time Living Will Yes December 30, 2023 10:37am Power of Health Science Specialist Yes December 29 10:37am Chief Complaint and Reason for Visit Chief Complaint Consult Chief Complaint Consult preop #1 left breast red/ right community coordinator port Reason for Visit Breast asymmetry [place] breast and reconstructed breast Breast hypertrophy History of cancer of right breast Chief Complaint Wmn F/U 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 Reason for Visit BMI 32.0-32.9,adult Depression GERD (gastroesophageal reflux disease) Hyperlipidemia Hypothyroid Obesity NARA on CPAP Chief Complaint 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 WM [address] followu p Reason for Visit BMI 32.0-32.9,adult Depression GERD (gastroesophageal reflux disease) Hyperlipidemia Hypothyroid Obesity NARA on CPAP Chief Complaint Follow up Reason for Visit Breast asymmetry [place] breast and reconstructed breast Breast hypertrophy History of cancer of right breast Chief Complaint Follow up pre op #1 Left Breast reduction/port removal Reason for Visit Breast asymmetry [place] breast and reconstructed breast Breast hypertrophy History of cancer of right breast Chief Complaint Follow up pre op #1 Left Breast reduction/port removal pre op #2 left breast reduction/port removal Left Breast Reduction for Symmetry, Removal Right Left Breast Reduction for Symmetry, Removal Right Reason for Visit Breast asymmetry [place] breast and reconstructed breast Breast hypertrophy History of cancer of right breast Breast asymmetry between [place] breast and reconstructed breast Breast hypertrophy History of cancer of right breast S/P breast reconstruction, right Breast asymmetry between [place] breast and reconstructed breast History of cancer of right breast S/P breast reconstruction, right Breast asymmetry between [place] breast and reconstructed breast Breast hypertrophy History of cancer of right breast S/P breast reconstruction, right Chief Complaint WM RD followu p Reason for Visit BMI 32.0-32.9,adult Depression GERD (gastroesophageal reflux disease) Hyperlipidemia Hypothyroid Obesity NARA on CPAP Chief Complaint Follow up pre op #1 Left Breast reduction/port removal pre op #2 left breast reduction/port removal Reason for Visit Breast asymmetry [place] breast and reconstructed breast Breast hypertrophy History of cancer of right breast Breast asymmetry between [place] breast and reconstructed breast Breast hypertrophy History of cancer of right breast S/P breast reconstruction, right Breast asymmetry between [place] breast and reconstructed breast History of cancer of right breast S/P breast reconstruction, right Additional Source Comments INFORMATION SOURCE (unrecogn ized section and content) DATE CREATED AUTHOR 03/07/2018 [facility] DATE CREATED AUTHOR AUTHOR'S ORGANIZ ATION 08/23/2018 [facility] DATE CREATED AUTHOR AUTHOR'S ORGANIZ ATION 09/01/2018 [facility] DATE CREATED AUTHOR AUTHOR'S ORGANIZ ATION 12/11/2020 [facility] DATE CREATED AUTHOR AUTHOR'S ORGANIZ ATION 07/10/2022 [facility] DATE CREATED AUTHOR AUTHOR'S ORGANIZ ATION 11/20/2022 [facility] DATE CREATED AUTHOR AUTHOR'S ORGANIZ ATION 12/25/2022 [facility] DATE CREATED AUTHOR AUTHOR'S ORGANIZ ATION 11/19/2023 [facility] DATE CREATED AUTHOR AUTHOR'S ORGANIZ ATION 02/12/2024 [facility] DATE CREATED AUTHOR AUTHOR'S ORGANIZ ATION 03/02/2024 [facility] DATE CREATED AUTHOR AUTHOR'S ORGANIZ ATION 03/04/2024 [facility] DATE CREATED AUTHOR AUTHOR'S ORGANIZ ATION 03/05/2024 [facility] DATE CREATED AUTHOR AUTHOR'S ORGANIZ ATION 04/13/2024 [facility] dical Specialists EPIC Reason for Visit (unrecogniz [...] Op Visit Right breast reconst ruction with community coordinator on 07/09/22. She complains of soreness, 7/10 [...] Care Teams (unrecognized sec tion and content) Cut Pressman Relationship Specialty Start Date End Date Shaikh Kerry Villagran MD [address] [place] [address] PCP - General Internal Medicine 05/20/22 Cut Pressman Relationship Specialty Start Date End Date Shaikh Kerry Villagran MD [address] [place] [address] PCP - General Internal Medicine 05/20/22 Cut Pressman Relationship Specialty Start Date End Date Shaikh Kerry Villagran MD [address] [place] [address] PCP - General Internal Medicine 05/20/22 Cut Pressman Relationship Specialty Start Date End Date Shaikh Kerry Villagran MD [address] [place] [address] PCP - General Internal Medicine 05/20/22 Cut Pressman Relationship Specialty Start Date End Date Shaikh Kerry Villagran MD [address] [place], [place] [id number] PCP - General Internal Medicine 05/20/22 Cut Pressman Relationship Specialty Start Date End Date Shaikh Kerry Villagran MD [address] [place] [id number] PCP - General Internal Medicine 05/20/22 Team [...] November 01, 2023 End: November 01, 2023 Cut Pressman Relationship Specialty Start Date End Date Trino Montiel MD [address] [place] [address] PCP - General 04/28/13 Team Status: Inactive [...] January 31, 2024 End: January 31, 2024 Susnane Jordan APRN Attending Provider Active Start: January [...] 1151 (Given - Provid er: Real Hahn APRN-TIRE WORKER) Continuous Medication Order 07/07/2022 07/08/2022 07/09/2022 lactated [...] BE BASED ON THE PRIMARY CLINICAL RECORDS. [employer] provides no warranty or guarantee of the accuracy or completeness of information in this document.
== END 2024-04-14 15:39 | disposition home or self-care (01) ==
LOC: RAD 15:39
PROVIDERS: PCP Internal Medicine; Visit Provider Internal Medicine
DX: M25.552 Pain in left hip (principal); M16.12 Unilateral primary osteoarthritis, left hip
CPT/HCPCS: 73502

== ENCOUNTER 2024-05-17 12:35 | Outpatient (OUT) | payer MEDICARE, OTHER, SELFPAY ==
--- NOTE | 2024-05-17 12:39 | MR_ITS ---
[address] [address] Patient Name: DELBERT SALAS MRN: [id number] date: 1950 Sex: F Assigned Patient Location: MRI Current Patient Location: MRI Accession/Order Number: [id number] Exam Date: 05/17/2024 12:50 Report Date: 05/17/2024 16:29 At the request of: SARAH AL Procedure: MR lumbar spine wo con EXAM: MRI of the lumbar spine without IV gadolinium contrast. REASON FOR EXAM: Lumbar stenosis COMPARISON: None FINDINGS: No lumbar spine fractures, acute malalignment or acute abnormal marrow signal. No spinal canal mass, hematoma or fluid collection. Posterior disc protrusions at the L1-L2, L2-L3, L3-L4 and L4-5 levels. Degenerative changes throughout the lumbar spine with multilevel disc space narrowing. Mild L2-L3 and L3-L4 spinal canal stenoses. No other substantial spinal canal stenoses. Mild right L2-L3, and L4-5 neural foraminal stenoses. Mild left L2-L3 neural foraminal stenosis. Moderate left L4-5 neural foraminal stenosis. No other substantial neural foraminal stenoses. Remainder unremarkable. MR/MR lumbar spine wo con IMPRESSION: 1. No acute lumbar spine abnormalities. 2. No moderate or high-grade spinal canal stenoses. 3. Moderate left L4-5 neural foraminal stenosis. Electronically authenticated by: RICK MOURA Date: 05/17/2024 16:29
== END 2024-05-17 12:36 | disposition home or self-care (01) ==
LOC: MRI 12:35
PROVIDERS: Visit Provider Nurse Practitioner
DX: M48.062 Spinal stenosis, lumbar region with neurogenic claudication (principal)
CPT/HCPCS: 72148

== ENCOUNTER 2024-05-25 12:32 | Outpatient (OUT) | payer MEDICARE, OTHER, SELFPAY ==
--- NOTE | 2024-05-25 12:47 | P.CN_ITS ---
Consult Note: HPI Data of Consult Patient: known to practice within the last 3 years Requesting Physician: Beth Morales NP Primary Care Provider: DEBBI SMITH Consult Narrative Reason for consult: f/u Narrative: Berenice Nolasco a pleasant 73 year old female presents for evaluation and management of low back pain. Pain today 6-7 ache increasing with twisting, pushing, pulling, standing, pain improved with sitting and heat. Pain increases to 8/10 at its most intense. ADELSO 46% with limitations in standing, walking, sleeping, lifting, and completing ADLs. The patient has had over 3 months of moderate to severe low back pain with functional impairment and inadequate response to conservative care including NSAIDS (unless there are contraindication such as concurrent blood thinners), multiple oral or topical pain medications, and home exercise program/physical therapy.? Patient has completed >6 weeks of guided home exercise program and/or formal physical therapy program without relief of their symptoms.?I have reviewed the imaging of the lumbar spine and no red flags were identified.? The imaging reveals radiographic findings consistent with lumbar facet arthropathy. Recent bilateral hip xray consistent with OA and lumbar MRI consistent with lumbar stenosis, ddd, and facet arthropathy. Recently underwent bilateral L4/5 L5/S1 MBB #1 with 30% improvement in pain, patient previously underwent lumbar ESIs and bilateral SIJ injections with benefit. Patient reports no improvement from PT, completed 8 visits without improvement. cc:: CC: Beth Morales NP Review of Systems ROS Status of ROS 10 or more systems reviewed and unremark able except as noted in history and below Musculoskeletal Reports: back pain and joint pain PFSH PFSH Medical History Osteoarthritis ?M19.90 - Unspecified osteoarthritis, unspecified site (ICD-10) H/O malignant neoplasm of breast ?Z85.3 - Personal history of malignant neoplasm of breast (ICD-10) Acid reflux ?K21.9 - Gastro-esophageal reflux disease without esophagitis (ICD-10) Diabetes ?E11.9 - Type 2 diabetes mellitus without complications (ICD-10) Sleep apnea ?G47.30 - Sleep apnea, unspecified (ICD-10) High cholesterol ?E78.00 - Pure hypercholesterolemia, unspecified (ICD-10) Surgical History S/P herniorrhaphy ?Z98.890 - Other specified postprocedural states (ICD-10) ?Z87.19 - Personal history of other diseases of the digestive system (ICD-10) H/O mastectomy ?Z90.10 - Acquired absence of unspecified breast and nipple (ICD-10) H/O arthroscopy of shoulder ?Z98.890 - Other specified postprocedural states (ICD-10) H/O arthroscopy of knee ?Z98.890 - Other specified postprocedural states (ICD-10) H/O bladder repair surgery ?Z98.890 - Other specified postprocedural states (ICD-10) H/O: hysterectomy ?Z90.710 - Acquired absence of both cervix and uterus (ICD-10) H/O breast reconstruction ?Z98.890 - Other specified postprocedural states (ICD-10) Social History Smoking status: Never smoker Meds Home Medications and Allergies Home Medications ?Medication ?Instructions ?Recorded ?Confirmed ?Type aspirin 81 mg tablet,delayed 81 mg PO DAILY 05/31/23 01/26/24 History release (Adult Low Dose Aspirin) calcium carbonate 600 mg-vitamin 1 tab PO DAILY 05/31/23 01/26/24 History D3 5 mcg (200 unit) tablet (Calcium 600 + D(3)) citalopram 20 mg tablet 30 mg PO DAILY 05/31/23 01/26/24 History esomeprazole magnesium 40 mg 40 mg PO DAILY 05/31/23 01/26/24 History capsule,delayed release (Nexium) famotidine 20 mg tablet 20 mg PO DAILY 05/31/23 01/26/24 History fesoterodine 8 mg tablet,extended 8 mg PO DAILY 05/31/23 01/26/24 History release 24 hr flaxseed oil 1,000 mg capsule 1,000 mg PO DAILY 05/31/23 01/26/24 History lactobacillus combination no.4 3 3,000 mmu cells PO DAILY 05/31/23 01/26/24 History billion cell capsule (Probiotic) levothyroxine 50 mcg capsule 50 mcg PO DAILY 05/31/23 01/26/24 History melatonin 10 mg capsule 10 mg PO DAILY 05/31/23 01/26/24 History multivitamin (Daily Multi-Vitamin 1 tab PO DAILY 05/31/23 01/26/24 History tablet) semaglutide 0.25 mg or 0.5 mg (2 0.25 mg subcut QWEEK 05/31/23 01/26/24 History mg/3 mL) subcutaneous pen injector (Ozempic) simvastatin 20 mg tablet 20 mg PO DAILY 05/31/23 01/26/24 History Allergies Allergy/AdvReac Type Severity Reaction Status Date / Time Penicillins Allergy Verified 01/26/24 18:39 Sulfa (Sulfonamide Allergy Verified 01/26/24 18:39 Antibiotics) acetaminophen [From Percocet] AdvReac erythema Verified 01/26/24 18:39 oxycodone [From Percocet] AdvReac erythema Verified 01/26/24 18:39 Exam Constitutional Documenting provider has reviewed patient's vital signs: yes Common normals: no apparent distress, oriented x3, healthy appearing, alert and well nourished General appearance: cooperative HENMT Common normals: normocephalic, hearing grossly normal bilaterally and moist oral mucous membranes Head and scalp: normocephalic Eye Common normals: PERRL Pupil: PERRL Neck & C-Spine Common normals: full ROM General: normal visual inspection Chest Common normals: inspection of chest normal Respiratory Common normals: normal respiratory effort, no retractions and no use of accessory muscles Back & Pelvis Lumbar spine/lower back: ROM limited, pain with ROM and straight leg raise negative bilaterally Sacroiliac joints: SI joint(s) abnormal Other: mild pain with bilateral facet loading axial low back pain over L3,4,5,S1 no radiculopathy on exam, however she has radicular pain with standing and walki ng that is improved with forward flexion pain over bilateral PSIS, positive rox fadir thigh thrust gaenslens left greater than right strength 4/5 in BLE tenderness over bilateral GTB Extremity Common normals: full ROM General: edema Other: negative internal and external log roll of right hip, mildly positive internal roll of left hip negative external roll Neuro Common normals: oriented x3, CN's II-XII intact bilaterally, moves all extremities, no focal motor deficits, no sensory deficits noted and deep tendon reflexes 2+ bilaterally Sensorium/orientation: alert Motor exam: strength 5/5 throughout and no movement abnormalities noted Psych Common normals: mental status grossly normal, thought process normal, cooperative, affect normal, speech normal and activity/motor behavior normal Speech: normal speech Thought process: normal thought process Results Imaging Lumbar MRI: Attestation: I have reviewed the pertinent imaging results. Radiologist's impression: No lumbar spine fractures, acute malalignment or acute abnormal marrow signal. No spinal canal mass, hematoma or fluid collection. Posterior disc protrusions at the L1-L2, L2-L3, L3-L4 and L4-5 levels. Degenerative changes throughout the lumbar spine with multilevel disc space narrowing. Mild L2-L3 and L3-L4 spinal canal stenoses. No other substantial spinal canal stenoses. Mild right L2-L3, and L4-5 neural foraminal stenoses. Mild left L2-L3 neural foraminal stenosis. Moderate left L4-5 neural foraminal stenosis. No other substantial neural foraminal stenoses. Remainder unremarkable. Additional Findings Additional findings: If on a controlled substance or opioids, I have checked an OARRS report on this patient and there are no aberrancies noted in the prescribing history.??If on a controlled substance or opioid a drug screen was completed and reviewed within the last year, and if there has not been a drug screen completed we ordered one today to monitor higher risk, state monitored pain medication use. As part of providing excellent, safe, comprehensive care, the following was completed at our patient's visit: 1. A medication reconciliation and review to ensure accurate knowledge of current/active medications, including asking our patients to inform us about any [id number] medications or herbal remedies/nutritional supplements/alternative remedies. 2. A review to specifically ensure our patients have had annual screening for screening for depression, screening for tobacco use, and screening for unhealthy alcohol use. For concerning screenings had a discussion with the patient, provided patient education, and recommended follow-up with primary care provider when appropriate. If patient noted with a risk of falling, they received education on strength, gait, and balance training to prevent future risk of falling. Assessment and Plan Assessment and Plan (1) Lumbar stenosis with neurogenic claudication: (2) Sacroiliac joint dysfunction of both sides: (3) Lumbar spondylosis: (4) Sacroiliitis: Plan lumbar MRI and hip xrays reviewed with patient and patients , all questions answered stop nsaids, start celebrex 100mg BID PRN pain to take with food. risks vs benefits reviewed left L4-5 L5-S1 TFESI under fluoroscopy, consider left SIJ injection in the future if needed pt not interested in hip replacement, is considering returning to Dr Alba for new evaluation, previously they were told her pain was related to her SIJs. she does have moderate OA of bilateral hips but mild pain on exam of left hip f/u 2 weeks after injection
== END 2024-05-25 12:33 | disposition home or self-care (01) ==
LOC: PM 12:34
PROVIDERS: Visit Provider Nurse Practitioner
DX: M48.062 Spinal stenosis, lumbar region with neurogenic claudication (principal); M53.3 Sacrococcygeal disorders, not elsewhere classified; M47.816 Spondylosis without myelopathy or radiculopathy, lumbar region; M46.1 Sacroiliitis, not elsewhere classified
CPT/HCPCS: G0463

== ENCOUNTER 2024-06-19 09:44 | Day surgery (SDC) | payer MEDICARE, OTHER, SELFPAY ==
[2024-06-19 10:21] VITALS: BP 131/85; PULSE 66; TEMP 36.3; O2SAT 98
[2024-06-19 11:07] VITALS: BP 170/80; PULSE 70; O2SAT 95
[2024-06-19 11:08] VITALS: BP 178/99; PULSE 68; O2SAT 96
--- NOTE | 2024-06-19 11:09 | P.ON_ITS ---
Date of procedure: 06/19/24 Pre-op diagnosis: Pain due to lumbar stenosis with neurogenic claudication Post-op diagnosis: same as pre-op Procedure: Procedure: Left L4-5, L5-S1 transforaminal epidural steroid injection Medications: Bupivacaine 0.25% 2cc, lidocaine 2% 1cc, kenalog 80mg The patient was seen and examined in the preoperative holding area.? Informed consent was obtained and placed on the chart.? Patient was brought to the medical procedure unit and placed in the prone position where a timeout was completed verifying the correct patient, procedure site, position, and planned special equipment using sterile aseptic technique.? Under direct fluoroscopic visualization a 25-gauge Quincke tipped spinal needle was advanced to the designated neural foramen where contrast dye was injected to show adequate spread.? The needle was inserted at level left L4-5. There was no evidence of vascular or adverse uptake.? Epidural spread was appreciated.? The above- mentioned injectate was then placed in a 1.5 mL aliquot preceded by negative aspiration.? The needle was removed. The needle was inserted and the procedure repeated at level left L5-S1.? The surgery site was covered.? Patient was taken to the postprocedural recovery area and monitored for an appropriate length of time before found suitable for discharge in the accompaniment of a responsible adult. Anesthesia: Local Surgeon: Vanessa Mack Pathology: none sent Condition: stable Disposition: no change
[2024-06-19] MEDS: TRIAMCINOLONE ACETONIDE 40 MG/ML VIAL 80 MG INJ (11:11)
[2024-06-19] MEDS: BUPIVACAINE HCL 0.25% PF 25 MG/10 ML VIAL INJ (11:11)
[2024-06-19] MEDS: 0.9 % SODIUM CHLORIDE 10 ML SYRINGE - SALINE FLUSH INJ (11:11)
[2024-06-19] MEDS: IOHEXOL 240 MG/ML - 10 ML VIAL 12 MG INJ (11:11)
[2024-06-19] MEDS: LIDOCAINE HCL 2% 400 MG/20 ML MDV INJ (11:11)
== END 2024-06-19 11:20 | disposition home or self-care (01) ==
LOC: SURGOUT 09:45
PROVIDERS: Visit Provider Anesthesiology
DX: M48.062 Spinal stenosis, lumbar region with neurogenic claudication (principal)
CPT/HCPCS: 64483; 64484; J0665; J3301; Q9966

== ENCOUNTER 2024-07-06 15:02 | Outpatient (RCR) | payer MEDICARE, OTHER, SELFPAY | END 2024-08-29 09:14 | disposition home or self-care (01) | LOC: PT 15:02 | DX: M70.61 Trochanteric bursitis, right hip (principal); M70.62 Trochanteric bursitis, left hip | CPT/HCPCS: 97110; 97162 ==

== ENCOUNTER 2024-07-12 12:48 | Outpatient (OUT) | payer MEDICARE, OTHER, SELFPAY ==
--- NOTE | 2024-07-12 13:06 | P.CN_ITS ---
Consult Note: HPI Data of Consult Patient: known to practice within the last 3 years Requesting Physician: Beth Morales NP Primary Care Provider: DEBBI SMITH Consult Narrative Reason for consult: f/u Narrative: Berenice Nolasco a pleasant 73 year old female presents for evaluation and management of low back pain. ADELSO 20% with limitations in standing, walking, sleeping, lifting, and completing ADLs. Patient has completed >6 weeks of guided home exercise program and/or formal physical therapy program without relief of their symptoms.?I have reviewed the imaging of the lumbar spine and no red flags were identified.? The imaging reveals radiographic findings consistent with lumbar facet arthropathy, lumbar stenosis, ddd, and facet arthropathy. also has bilateral hip OA. Recently underwent left L4-5 L5-S1 TFESI with 90% improvement ongoing. continues to have intermittent moderate to severe bilateral hip pain, following with orthopedics who performed bilateral GTB injection with mild benefit and started pt in PT again. Pain today 6/10 in bilateral hips and SIJ. cc:: CC: Beth Morales NP Review of Systems ROS Status of ROS 10 or more systems reviewed and unremark able except as noted in history and below Musculoskeletal Reports: back pain and joint pain PFSH PFSH Medical History Osteoarthritis ?M19.90 - Unspecified osteoarthritis, unspecified site (ICD-10) H/O malignant neoplasm of breast ?Z85.3 - Personal history of malignant neoplasm of breast (ICD-10) Acid reflux ?K21.9 - Gastro-esophageal reflux disease without esophagitis (ICD-10) Diabetes ?E11.9 - Type 2 diabetes mellitus without complications (ICD-10) Sleep apnea ?G47.30 - Sleep apnea, unspecified (ICD-10) High cholesterol ?E78.00 - Pure hypercholesterolemia, unspecified (ICD-10) Surgical History S/P herniorrhaphy ?Z98.890 - Other specified postprocedural states (ICD-10) ?Z87.19 - Personal history of other diseases of the digestive system (ICD-10) H/O mastectomy ?Z90.10 - Acquired absence of unspecified breast and nipple (ICD-10) H/O arthroscopy of shoulder ?Z98.890 - Other specified postprocedural states (ICD-10) H/O arthroscopy of knee ?Z98.890 - Other specified postprocedural states (ICD-10) H/O bladder repair surgery ?Z98.890 - Other specified postprocedural states (ICD-10) H/O: hysterectomy ?Z90.710 - Acquired absence of both cervix and uterus (ICD-10) H/O breast reconstruction ?Z98.890 - Other specified postprocedural states (ICD-10) Social History Smoking status: Never smoker Meds Home Medications and Allergies Home Medications ?Medication ?Instructions ?Recorded ?Confirmed ?Type aspirin 81 mg tablet,delayed 81 mg PO DAILY 05/31/23 06/19/24 History release (Adult Low Dose Aspirin) calcium 600 mg (as 1 tab PO DAILY 05/31/23 06/19/24 History carbonate)-vitamin D3 5 mcg (200 unit) tablet (Calcium 600 + D(3)) citalopram 20 mg tablet 30 mg PO DAILY 05/31/23 06/19/24 History esomeprazole magnesium 40 mg 40 mg PO DAILY 05/31/23 06/19/24 History capsule,delayed release (Nexium) famotidine 20 mg tablet 20 mg PO DAILY 05/31/23 06/19/24 History fesoterodine 8 mg tablet,extended 8 mg PO DAILY 05/31/23 06/19/24 History release 24 hr flaxseed oil 1,000 mg capsule 1,000 mg PO DAILY 05/31/23 06/19/24 History lactobacillus combination no.4 3 3,000 mmu cells PO DAILY 05/31/23 06/19/24 History billion cell capsule (Probiotic) levothyroxine 50 mcg capsule 50 mcg PO DAILY 05/31/23 06/19/24 History melatonin 10 mg capsule 10 mg PO DAILY 05/31/23 06/19/24 History multivitamin (Daily Multi-Vitamin 1 tab PO DAILY 05/31/23 06/19/24 History tablet) semaglutide 0.25 mg or 0.5 mg (2 0.25 mg subcut QWEEK 05/31/23 06/19/24 History mg/3 mL) subcutaneous pen injector (Ozempic) simvastatin 20 mg tablet 20 mg PO DAILY 05/31/23 06/19/24 History celecoxib 100 mg capsule mg 06/09/24 History Allergies Allergy/AdvReac Type Severity Reaction Status Date / Time Penicillins Allergy rash/itchin Verified 06/19/24 10:25 g Sulfa (Sulfonamide Allergy Rash Verified 06/19/24 10:25 Antibiotics) acetaminophen (From Percocet) AdvReac erythema Verified 06/19/24 10:25 oxycodone (From Percocet) AdvReac erythema Verified 06/19/24 10:25 Exam Constitutional Documenting provider has reviewed patient's vital signs: yes Common normals: no apparent distress, oriented x3, healthy appearing, alert and well nourished General appearance: cooperative HENMT Common normals: normocephalic, hearing grossly normal bilaterally and moist oral mucous membranes Head and scalp: normocephalic Eye Common normals: PERRL Pupil: PERRL Neck & C-Spine Common normals: full ROM General: normal visual inspection Chest Common normals: inspection of chest normal Respiratory Common normals: normal respiratory effort, no retractions and no use of accessory muscles Back & Pelvis Lumbar spine/lower back: straight leg raise negative bilaterally; ROM not limited and no pain with ROM Sacroiliac joints: SI joint(s) abnormal Other: mild pain with bilateral facet loading axial low back pain over L3,4,5,S1 pain over bilateral PSIS, positive rox fadir thigh thrust gaenslens left greater than right strength 5/5 in BLE tenderness over bilateral GTB Extremity Common normals: full ROM General: edema Other: negative internal and external log roll of right hip, mildly positive internal roll of left hip negative external roll Neuro Common normals: oriented x3, CN's II-XII intact bilaterally, moves all extremities, no focal motor deficits, no sensory deficits noted and deep tendon reflexes 2+ bilaterally Sensorium/orientation: alert Motor exam: strength 5/5 throughout and no movement abnormalities noted Psych Common normals: mental status grossly normal, thought process normal, cooperative, affect normal, speech normal and activity/motor behavior normal Speech: normal speech Thought process: normal thought process Results Additional Findings Additional findings: If on a controlled substance or opioids, I have checked an [place]ARRS report on this patient and there are no aberrancies noted in the prescribing history.??If on a controlled substance or opioid a drug screen was completed and reviewed within the last year, and if there has not been a drug screen completed we ordered one today to monitor higher risk, state monitored pain medication use. As part of providing excellent, safe, comprehensive care, the following was completed at our patient's visit: 1. A medication reconciliation and review to ensure accurate knowledge of curren t/active medications, including asking our patients to inform us about any [id number] medications or herbal remedies/nutritional supplements/alternative remedies. 2. A review to specifically ensure our patients have had annual screening for screening for depression, screening for tobacco use, and screening for unhealthy alcohol use. For concerning screenings had a discussion with the patient, provided patient education, and recommended follow-up with primary care provider when appropriate. If patient noted with a risk of falling, they received education on strength, gait, and balance training to prevent future risk of falling. Assessment and Plan Assessment and Plan (1) Lumbar stenosis with neurogenic claudication: (2) Sacroiliac joint dysfunction of both sides: (3) Lumbar spondylosis: (4) Sacroiliitis: Plan encouraged celebrex 100mg BID PRN pain to take with food. risks vs benefits reviewed left L4-5 L5-S1 TFESI under fluoroscopy providing significant relief for lumbar stenosis with NC. can call for bilateral SIJ injection under fluoroscopy continue PT as tolerated f/u 1 week after injection or 3 months for evaluation
== END 2024-07-12 12:49 | disposition home or self-care (01) ==
LOC: PM 12:49
PROVIDERS: Visit Provider Nurse Practitioner
DX: M48.062 Spinal stenosis, lumbar region with neurogenic claudication (principal); M53.3 Sacrococcygeal disorders, not elsewhere classified; M47.816 Spondylosis without myelopathy or radiculopathy, lumbar region; M46.1 Sacroiliitis, not elsewhere classified
CPT/HCPCS: G0463

== ENCOUNTER 2024-08-21 09:21 | Day surgery (SDC) | payer MEDICARE, OTHER, SELFPAY ==
[2024-08-21 09:58] VITALS: BP 137/90; PULSE 69; TEMP 36.1; O2SAT 97
[2024-08-21 10:39] VITALS: BP 163/98; BP 194/105; PULSE 72; O2SAT 96; O2SAT 97
--- NOTE | 2024-08-21 10:41 | W.PM.PROCNOT ---
Date of procedure: 08/21/24 Pre-op diagnosis: Pain due to bilateral sacroiliitis Post-op diagnosis: same as pre-op Procedure: Procedure: Bilateral sacroiliac joint injection Medications: Bupivacaine 0.25% 3cc, kenalog 40mg After informed consent was obtained, the patient was brought to the medical procedure unit and placed in the prone position, when a timeout was completed verifying correct patient, procedure, site, positioning, implant, and/or special equipment.? The skin overlying the area was prepped and draped in standard sterile fashion using alcohol.? A 25-gauge needle was inserted towards the left sacroiliac joint under direct fluoroscopic imaging.? Needle tip was advanced until the joint was encountered.? We instilled a total of 2 mL of solution.? The same procedure was then completed on the right side.? Postoperatively needles were removed.? The patient tolerated the procedure well without complication.? The patient reported reduction in pain symptoms postoperatively. Anesthesia: Local Surgeon: Vanessa Mack Pathology: none sent Condition: stable Disposition: no change
[2024-08-21] MEDS: TRIAMCINOLONE ACETONIDE 40 MG/ML VIAL 80 MG INJ (10:42)
[2024-08-21] MEDS: BUPIVACAINE HCL 0.25% PF 25 MG/10 ML VIAL 4 ML INJ (10:42)
[2024-08-21] MEDS: IOHEXOL 240 MG/ML - 10 ML VIAL 12 MG INJ (10:42)
[2024-08-21] MEDS: LIDOCAINE HCL 2% 400 MG/20 ML MDV INJ (10:42)
== END 2024-08-21 10:47 | disposition home or self-care (01) ==
LOC: SURGOUT 09:22
PROVIDERS: Visit Provider Anesthesiology
DX: M46.1 Sacroiliitis, not elsewhere classified (principal)
CPT/HCPCS: 27096; J0665; J3301; Q9966

== ENCOUNTER 2024-08-31 12:50 | Outpatient (OUT) | payer MEDICARE, OTHER, SELFPAY ==
--- NOTE | 2024-08-31 12:56 | P.CN_ITS ---
Consult Note: HPI Data of Consult Patient: known to practice within the last 3 years Requesting Physician: Beth Morales NP Primary Care Provider: DEBBI SMITH Consult Narrative Reason for consult: f/u Narrative: Berenice Nolasco a pleasant 73 year old female presents for evaluation and management of low back pain. ADELSO 20% with limitations in standing, walking, sleeping, lifting, and completing ADLs. utilizing celebrex or ibuprofen PRN with relief. Patient has completed >6 weeks of guided home exercise program and/or formal physical therapy program without relief of their symptoms.?I have reviewed the imaging of the lumbar spine and no red flags were identified.? The imaging reveals radiographic findings consistent with lumbar facet arthropathy, lumbar stenosis, ddd, and facet arthropathy. also has bilateral hip OA. recently underwent bilateral sij injection with 70% improvement in pain ongoing. pain today 2/10 increasing to 2/10 in the evnings cc:: CC: Beth Morales NP Review of Systems ROS Status of ROS 10 or more systems reviewed and unremark able except as noted in history and below Musculoskeletal Reports: back pain and joint pain PFSH PFSH Medical History Osteoarthritis ?M19.90 - Unspecified osteoarthritis, unspecified site (ICD-10) H/O malignant neoplasm of breast ?Z85.3 - Personal history of malignant neoplasm of breast (ICD-10) Acid reflux ?K21.9 - Gastro-esophageal reflux disease without esophagitis (ICD-10) Diabetes ?E11.9 - Type 2 diabetes mellitus without complications (ICD-10) Sleep apnea ?G47.30 - Sleep apnea, unspecified (ICD-10) High cholesterol ?E78.00 - Pure hypercholesterolemia, unspecified (ICD-10) Surgical History S/P herniorrhaphy ?Z98.890 - Other specified postprocedural states (ICD-10) ?Z87.19 - Personal history of other diseases of the digestive system (ICD-10) H/O mastectomy ?Z90.10 - Acquired absence of unspecified breast and nipple (ICD-10) H/O arthroscopy of shoulder ?Z98.890 - Other specified postprocedural states (ICD-10) H/O arthroscopy of knee ?Z98.890 - Other specified postprocedural states (ICD-10) H/O bladder repair surgery ?Z98.890 - Other specified postprocedural states (ICD-10) H/O: hysterectomy ?Z90.710 - Acquired absence of both cervix and uterus (ICD-10) H/O breast reconstruction ?Z98.890 - Other specified postprocedural states (ICD-10) Social History Smoking status: Never smoker Meds Home Medications and Allergies Home Medications ?Medication ?Instructions ?Recorded ?Confirmed ?Type aspirin 81 mg tablet,delayed 81 mg PO DAILY 05/31/23 08/21/24 History release (Adult Low Dose Aspirin) calcium 600 mg (as 1 tab PO DAILY 05/31/23 08/21/24 History carbonate)-vitamin D3 5 mcg (200 unit) tablet (Calcium 600 + D(3)) citalopram 20 mg tablet 30 mg PO DAILY 05/31/23 08/21/24 History esomeprazole magnesium 40 mg 40 mg PO DAILY 05/31/23 08/21/24 History capsule,delayed release (Nexium) famotidine 20 mg tablet 20 mg PO DAILY 05/31/23 08/21/24 History fesoterodine 8 mg tablet,extended 8 mg PO DAILY 05/31/23 08/21/24 History release 24 hr flaxseed oil 1,000 mg capsule 1,000 mg PO DAILY 05/31/23 08/21/24 History lactobacillus combination no.4 3 3,000 mmu cells PO DAILY 05/31/23 08/21/24 History billion cell capsule (Probiotic) levothyroxine 50 mcg capsule 50 mcg PO DAILY 05/31/23 08/21/24 History melatonin 10 mg capsule 10 mg PO DAILY 05/31/23 08/21/24 History multivitamin (Daily Multi-Vitamin 1 tab PO DAILY 05/31/23 08/21/24 History tablet) semaglutide 0.25 mg or 0.5 mg (2 0.25 mg subcut QWEEK 05/31/23 08/21/24 History mg/3 mL) subcutaneous pen injector (Ozempic) simvastatin 20 mg tablet 20 mg PO DAILY 05/31/23 08/21/24 History celecoxib 100 mg capsule mg 06/09/24 History Allergies Allergy/AdvReac Type Severity Reaction Status Date / Time Penicillins Allergy rash/itchin Verified 08/21/24 10:06 g Sulfa (Sulfonamide Allergy Rash Verified 08/21/24 10:06 Antibiotics) acetaminophen (From Percocet) AdvReac erythema Verified 08/21/24 10:06 oxycodone (From Percocet) AdvReac erythema Verified 08/21/24 10:06 Exam Constitutional Documenting provider has reviewed patient's vital signs: yes Common normals: no apparent distress, oriented x3, healthy appearing, alert and well nourished General appearance: cooperative HENMT Common normals: normocephalic, hearing grossly normal bilaterally and moist oral mucous membranes Head and scalp: normocephalic Eye Common normals: PERRL Pupil: PERRL Neck & C-Spine Common normals: full ROM General: normal visual inspection Chest Common normals: inspection of chest normal Respiratory Common normals: normal respiratory effort, no retractions and no use of accessory muscles Back & Pelvis Lumbar spine/lower back: straight leg raise negative bilaterally; ROM not limited and no pain with ROM Sacroiliac joints: SI joints normal Other: mild pain with bilateral facet loading axial low back pain over L3,4,5,S1 strength 5/5 in BLE tenderness over bilateral GTB Extremity Common normals: full ROM General: edema Other: negative internal and external log roll of right hip, mildly positive internal roll of left hip negative external roll Neuro Common normals: oriented x3, CN's II-XII intact bilaterally, moves all extremities, no focal motor deficits, no sensory deficits noted and deep tendon reflexes 2+ bilaterally Sensorium/orientation: alert Motor exam: strength 5/5 throughout and no movement abnormalities noted Psych Common normals: mental status grossly normal, thought process normal, cooperative, affect normal, speech normal and activity/motor behavior normal Speech: normal speech Thought process: normal thought process Results Additional Findings Additional findings: If on a controlled substance or opioids, I have checked an [place] report on this patient and there are no aberrancies noted in the prescribing history.??If on a controlled substance or opioid a drug screen was completed and reviewed within the last year, and if there has not been a drug screen completed we ordered one today to monitor higher risk, state monitored pain medication use. As part of providing excellent, safe, comprehensive care, the following was completed at our patient's visit: 1. A medication reconciliation and review to ensure accurate knowledge of current/active medications, including asking our patients to inform us about any [id number] medications or herbal remedies/nutritional supplements/alternative remedies. 2. A review to specifically ensure our patients have had annual screening for screening for depression, screening for tobacco use, and screening for unhealthy alcohol use. For concerning screenings had a discussion with the patient, provided patient education, and recommended follow-up with primary care provider when appropriate. If patient noted with a risk of falling, they received education on strength, gait, and balance training to prevent future risk of falling. Assessment and Plan Assessment and Plan (1) Lumbar stenosis with neurogenic claudication: (2) Sacroiliac joint dysfunction of both sides: (3) Lumbar spondylosis: (4) Sacroiliitis: Plan continue celebrex 100mg BID PRN pain to take with food. risks vs benefits reviewed continue PT as tolerated f/u 3 months, sooner if needed
--- OUTSIDE RECORDS SUMMARY | 2024-08-31 13:12 | XMS_ITS | CCD ---
Author Organization [facility] Care Team Providers Care Maintenance Specialist Name Role Phone NANCY MARTINEZ Unavailable Unavailable NANCY MARTINEZ Unavailable Unavailable TRINO MONTIEL~[phone] UNKNOWN Unavailable Unavailable GRUPO BROUSSARD Unavailable Unavailable DC Procedure Practitioner Unavailab ADAM Bernardo Surgeon Unavailable ADAM SKINNER Admitting Unavailable NADERER TRINO Primary Care Unavailable OLIVAIR TRINO Referring Unavailable ADAM SKINNER Attending Unavailable LASHA BAKER Surgeon Unavailable DC Procedure Practitioner Unavailab le Tyshawn ADAMSON, Shaikh Kerry Primary Care Provider Shaikh Kerry Villagran MD Primary Care Provider [facility] Unavailab le GHAZOUL, APOLINAR Admitting Unavailable GHAZOUL, APOLINAR Attending Unavailable GHAZOUL, APOLINAR Referring Unavailable GHAZOUL, APOLINAR Attending Unavailable GHAZOUL, APOLINAR Referring Unavailable PADILLAWJACIEL [facility] Primary Care Unavailab le [facility] Primary Care Unavailab le SELF, SELF Referring Unavailable GHAZOUL, APOLINAR Attending Unavailable PADILLAWMANuno, [facility] Primary Care Unavailab le GHAZOUL, APOLINAR Referring Unavailable GHAZOUL, APOLINAR Attending Unavailable PADILLAWJACIEL, [facility] Care Unavailab le SELF, SELF Referring Unavailable GHAZOUL, APOLINAR Attending Unavailable PADILLAWMANuno, [facility] Primary Care Unavailab le SELF, SELF Referring Unavailable GHAZOUL, APOLINAR Attending Unavailable [facility]ILLAST. [facility], [facility] Primary Care Unavailab le SELF, SELF Referring Unavailable GHAZOUL, APOLINAR Attending Unavailable PADILLAST. [facility], FREED HAMIZUL Primary Care Unavailab le SELF, SELF Referring Unavailable GHAZOUL, APOLINAR Attending Unavailable FAWWAD, FREED HAMIZUL Primary Care Unavailab le SELF, SELF Referring Unavailable GHAZOUL, APOLINAR Attending Unavailable FAWWAD, FREED H[facility]UL Primary Care Unavailab le SELF, SELF Referring Unavailable GHAZOUL, APOLINAR Attending Unavailable FAWWAD, FREED [facility] Primary Care Unavailab le SELF, SELF Referring Unavailable GHAZOUL, APOLINAR Attending Unavailable [facility], [facility] Care Unavailab le SELF, SELF Referring Unavailable GHAZOUL, APOLINAR Attending Unavailable FAWWAD, [facility] HAMIZUL Primary Care Unavailab le SELF, SELF Referring Unavailable GHAZOUL, APOLINAR Attending Unavailable FAWWAD, [facility] Primary Care Unavailab le SELF, SELF Referring Unavailable GHAZOUL, APOLINAR Attending Unavailable FAWWAD, [facility] Primary Care Unavailab le SELF, SELF Referring Unavailable GHAZOUL, APOLINAR Attending Unavailable FAWWAD, [facility] HAMIZUL Primary Care Unavailab le FAWWAD, FREED HAMIZUL Primary Care Unavailab le FAWWAD, FREED H[facility] Primary Care Unavailab le [...] Unavailable WEST, DR ADAM Castellanos Attending Unavailable GEORGE, DR ADAM Castellanos Consulting Unavailable FAWWAD, FREED H Primary Care Unavailable KANIKA, DR TY Marquez Consulting Unavailable WEST, DR ADAM Castellanos Attending Unavailable WEST, DR ADAM Castellanos Admitting Unavailable FAWWAD, FREED H Primary Care Unavailable FAWWAD, FREED H Consulting Unavailable WEST, DR ADAM Castellanos Admitting Unavailable WEST, DR ADAM Castellanos Attending Unavailable FAWWAD, FREED H Primary Care Unavailable ADAM SKINNER Admitting Unavailable ADAM SKINNER Attending Unavailable FAWWAD, FREED H Primary Care [...] Adriana Lyn Unavailable RENO Jordan Attending Provider [phone] MD Dorothea Villagran Primary Care Provider Trino Montiel MD Primary Care Provider Dr. Apolinar Henry Attending Provider [phone] Dr. Dorothea Villagran Primary Care Provider Dr. Dorothea Villagran Referring Provider Dr. Apolinar Henry Other Provider Tyshawn, Primary Care Unavailable Susanne tavera R Attending Unavailable Susanne Jordan R Admitting Unavailable ALI, IMRAN I Attending Unavailable NADERER, TRINO Referring Unavailable NADERER, TRINO Primary Care Unavailable ALI, IMRAN I Referring Unavailable NADERER, TRINO Primary Care Unavailable ALI, IMRAN I Referring Unavailable NADERER, TRINO Primary Care Unavailable ALI, IMRAN I Referring Unavailable NADERER, TRINO Primary Care Unavailable NORMA DEWITT Attending Unavailable NADERER, TRINO Referring Unavailable NADERER, TRINO Primary Care Unavailable NADERER, TRINO Referring Unavailable NADERER, TRINO Primary Care Unavailable ADAM SKINNER Attending Unavailable Fawwad MD, Freed Unavailable Trino Montiel MD Primary Care Provider Maral SUMMERS, Debbi Unavailable FAWWAD, FREED Attending Unavailable FAWWAD, FREED Attending Unavailable FAWWAD, [facility] Attending Unavailable CECILE COLLINS Attending Unavailable ALICIADEBBI DOWLING Attending Unavailabl e Fawwad, Freed Referring Unavailable Fawwad, [facility] Primary Care Unavailable Ghazoul, Apolinar Attending Unavailable Fawwad, [facility] Referring Unavailable Fawwad, [facility] Primary Care Unavailable Ghazoul, Apolinar Attending Unavailable Ghazoul, Apolinar Attending Unavailable Fawwad, [facility] Referring Unavailable Fawwad, [facility] Primary Care Unavailable Ghazoul, Apolinar Attending Unavailable Fawwad, [facility] Referring Unavailable Fawwad, [facility] Primary Care Unavailable Ghazoul, Apolinar Attending Unavailable Fawwad, [facility] Referring Unavailable Fawwad, [facility] Primary Care Unavailable Fawwad, [facility] Primary Care Unavailable Fawwad, Freed Referring Unavailable Ghazoul, Apolinar Attending Unavailable Fawwad, [facility] Primary Care Unavailable Fawwad, [facility] Referring Unavailable Ghazoul, Apolinar Attending Unavailable Fawwad, [facility] Primary Care Unavailable Fawwad, Freed Referring Unavailable Ghazoul, Apolinar Attending Unavailable Fawwad, [facility] Primary Care Unavailable Ghazoul, Apolinar Attending Unavailable Fawwad, [facility] Primary Care Unavailable Ghazoul, Apolinar Attending Unavailable Ghazoul, Apolinar Referring Unavailable Ghazoul, Apolinar Consulting Unavailable Ghazoul, Apolinar Attending Unavailable Ghazoul, Apolinar Attending Unavailable Tyshawn ADAMSON, [facility] Primary Care Rocio Betancourt MD, Jovan Cagle Attending Rocio Villagran MD, [facility] Care Rocio Betancourt MD, Jovan Cagle Attending Rocio Villagran MD, [facility] Care Rocio Mack MD, Vanessa Hernandez Attending Gian [facility] Rocio Mack MD, Vanessa Hernandez Attending Unavailable Tyshawn ADAMSON, [facility] Primary Care Unavai laballey [place] LARYNGOLOGIST-LICENSED DISPENSING OPTICIAN, Kevin Workman Attending Shruti bethel Villagran MD, Freed Hammanuela [facility] Care Unavai laballey [place] LARYNGOLOGIST-LICENSED DISPENSING OPTICIAN, Kevin Workman Attending [facility] bethel [place] LARYNGOLOGIST-LICENSED DISPENSING OPTICIAN, Kevin Workman Attending [facility] bethel Villagran MD, Freed Hammanuela [facility] Shrutivai laballey Allergies Allergy Classification Reported Allergen(s) Allergy Type Date of Onset Reaction(s) Facility Acetaminophen (1 source) Acetaminophen Drug Allergy 01-31-20 [facility] Opioid Agonists (1 source) oxyCODONE Drug Allergy 01-31-20 [facility] Penicillins (antibiotic) (1 source) Penicillins Drug Allergy 01-31-20 24 [facility] Sulfonamides (antibiotic) (1 source) Sulfonamides (Antibiotic) Drug Allergy 01-31-20 24 [facility] (2 sources) cortisone; Translations: [cortisone] Drug [facility] (20 sources) Penicillins; Translations: [penicillins] Propensity to adverse reactions (disorder) 09-16-19 13 Itching [facility] Repository (1 source) sulfamethoxazole; Translations: [sulfamethoxazole] Drug [facility] (7 sources) Sulfonamides (Antibiotic) Drug allergy (disorder) 11-03-19 13 Itching [facility] Repository (16 sources) sulfaSALAzine; Translations: [SULFASALAZINE] Drug All[facility] Sulfonamides (Antibiotic) Propensity to adverse reactions to drug 09-16-19 13 Itching [facility] (5 sources) Penicillin Drug Allergy Unknown [facility] Other (5 sources) Substance with sulfonamide structure and antibacterial mechanism of action (substance) Drug allergy Unknown [facility] Other (6 sources) Sulfonamides (Antibiotic) Allergy to substance 05-05-20 [facility] (3 sources) Acetaminophen; Translations: [acetaminophen] Drug Allergy 01-31-20 [facility] (3 sources) oxyCODONE; Translations: [oxycodone] Drug Allergy 01-31-20 [facility] (2 sources) Sulfonamides (Antibiotic) Drug allergy (disorder) 08-30-20 [facility] Repository (6 sources) Acetaminophen / oxyCODONE; Translations: [OXYCODONE-ACETAMIN OPHEN] Drug Allergy 03-02-20 Swelling [facility] Repository (4 sources) Penicillin G Procaine; Translations: [PENICILLIN G PROCAINE] Propensity to adverse reactions to drug (disorder) 09-02-20 [facility] Repository (4 sources) Sulfamethoxazole / Trimethoprim; Translations: [SULFAMETHOXAZOLE-T RIMETHOPRIM] Drug Allergy 09-02-[address] [facility] Repository (1 source) Acetaminophen / oxyCODONE; Translations: [Percocet] Drug Allergy [facility] Repository (1 source) Sulfonamides (Antibiotic); Translations: [sulfa drugs] Propensity to adverse reactions to drug (disorder) [facility] Repository Medications Current Medications Medication Drug Class(es) [...] / collagen, hydrolyzed 740 mg oral capsule (5 sources) Vitamin C Start: 10-29-2023 take 1 [...] CAP PO DAILY May 05, 2023 12:00am calcium citrate 600 mg and vitamin D3 (Citrical & Minerals + Vit D) 600-200 MG-UNIT tablet (3 sources) take 1 tablet by mouth once daily in the morning calcium citrate 600 mg and vitamin D3 (Citrical & Minerals + Vit D) 600-200 MG-UNIT tablet Take 1 tablet by mouth in the morning. Active citalopram 20 mg oral tablet (20 sources) Serotonin Reuptake Inhibitor Start: 04-11-2024 End: 10-08-2024 take 1.5 tablets by mouth once daily citalopram (CeleXA) 20 MG tablet Indications: Recurrent major depressive disorder, in full remission (CMS/HCC) Take 1.5 tablets (30 mg) by mouth Daily 135 tablet 1 04/11/2024 10/08/2024 Active Start: 05-05-2023 take 30 mg by mouth [...] COLLAGEN PO Take by mouth. 0 Active diclofenac sodium 0.01 mg/mg topical gel (3 sources) Nonsteroidal Anti-inflammatory Drug Start: 04-11-2024 diclofenac sodium (Voltaren Arthritis Pain) 1 % gel Indications: Left hip pain 1 application to affected area three times a day 50 g 04/11/2024 Active esomeprazole 40 mg delayed release oral capsule (20 sources) Proton Pump Inhibitor Start: 04-11-2024 End: 10-08-2024 take 1 capsule by mouth once daily esomeprazole (NexIUM) [address] capsule Indications: Gastroesophageal reflux disease without esophagitis Take 1 capsule (40 mg) by mouth Daily 90 capsule 1 04/11/2024 10/08/2024 Active Start: 05-05-2023 take 40 mg by mouth once daily Esomeprazole Magnesium Active 40 MG PO DAILY May 05, 2023 12:00am Start: 06-09-2022 End: 05-20-2022 take 1 capsule by mouth once daily in the morning esomeprazole [address] capsule Take 1 capsule by mouth daily every morning. 0 06/09/2022 Active famotidine 20 mg oral tablet (20 sources) Histamine-2 Receptor Antagonist Start: 05-05-2023 End: 07-11-2024 take 20 mg by mouth once daily at bedtime Famotidine Active 20 MG PO Daily at bedtime October 29, 2023 1:00am 24 hr fesoterodine fumarate 8 mg extended release oral tablet (20 sources) Start: 05-05-2023 take 8 mg by [...] Animalis (Daily Probiotic) 2.5 billion cell capsule (5 sources) Start: take 1 capsule by mouth once daily, then take 2.5 capsules by mouth once daily L. Acidophilus/Bifid. Animalis (Daily Probiotic) 2.5 billion cell capsule Active 1 CAP PO Daily October 29, 2023 1:00am Start: 10-29-2023 take 1 capsule by [facility] once daily, then take [...] tablet (20 sources) l-Thyroxi ne Start: 10-16-2022 End: 10-08-2024 take 1 tablet by mouth once daily levothyroxine (Synthroid, Levoxyl) 50 MCG tablet Indications: Hypothyroidism, unspecified type (CMS/HCC) Take 1 tablet (50 mcg) by mouth Daily 90 tablet 1 04/11/2024 10/08/2024 Active take 1 tablet by mouth once anai y Levothyroxine Sodium 50 MCG take 1 tablet by mouth once daily Oral for 90 Days Active linseed oil 1000 mg oral capsule (20 sources) Start: 10-29-2023 take 1000 mg by mouth once daily Flaxseed Oil Active 1000 MG PO Daily October 29, 2023 1:00am administer with a meal melatonin 10 mg oral tablet (17 sources) Start: 05-05-2023 take 10 mg by mouth at bedtime Melatonin Active 10 MG PO BEDTIME May 05, 2023 12:00am MELATONIN PO Delmar e by mouth daily. 0 Active Multiple Vitamins-Minerals (Multivitamin Women 50+) tablet (3 sources) take 1 tablet by mouth in the morning Multiple Vitamins-Minerals (Multivitamin Women 50+) tablet Take 1 tablet by mouth in the morning. Active Suzbvlej-Ijb-Sz-Lycopen- Lutein (Complete Mv Adult 50 Plus) 0.4 mg-300 mcg- 250 mcg tablet (6 sources) Start: 023 take 1 tablet by mouth once daily Kupldwlk-Rxv-Xu-Lycopen- Lutein (Complete Mv Adult 50 Plus) 0.4 mg-300 mcg- 250 mcg tablet Active 1 TABLET PO DAILY May 05, 2023 12:00am multivitamin tablet (11 sources) take 1 tablet by mouth once daily multivitamin tablet Take 1 tablet by mouth daily. 0 Active omeprazole 40 mg delayed release oral capsule (10 sources) Proton Pump Inhibitor Start: 024 Omeprazole Active 40 MG PO Daily October [...] mg/3 mL) pen injector polyethylene glycol 3350 95688 mg powder for oral solution (7 sources) Osmotic Laxative Start: 10-29-2023 Polyethylene Glycol 3350 (Miralax) 17 gram/dose powder Active 17 GM PO Daily October 29, 2023 1:00am MiraLax Active Probiotic (3 sources) Probiotic Active raNITIdine (1 source) Histamine-2 Receptor Antagonist RANITIDINE HCL (ZANT AC ORAL) Take by mouth. 0 Active Semaglutide (20 sources) Start: 05-08-2024 Semaglutide (Ozempic) 0.25 mg or 0.5 mg (2 mg/3 mL) pen injector Active 0.25 MG SUBCUT every week 4.416 84 May 08, 2024 2:07pm Start: 01-31-2024 End: 05-08-2024 Semaglutide (Ozempic) 0.25 m g or 0.5 mg (2 mg/3 mL) pen injector Discontinued 0.25 MG SUBCUT every week 4.416 84 January 31, 2024 3:57pm May 08, 2024 2:08pm Start: 01-31-2024 Semaglutide (O zempic) 0.25 mg or 0.5 [...] SC EVERY WEEK May 05, 2023 12:00am 0.25 mg, 0.5 mg dose 1.5 ml semaglutide 1.34 mg/ml pen injector (3 sources) inject 0.25 mg by subcutaneous injection every week semaglutide (Ozempic, 0.25 or 0.5 MG/DOSE,) 2 MG/1.5ML solution pen-injector Inject 0.25 mg under the skin 1 (one) time per week Active simvastatin 20 mg oral tablet (20 sources) HMG-CoA Reductase Inhibitor Start: 016 End: 025 take 1 tablet by mouth at bedtime simvastatin (Zocor) 20 MG tablet Indications: Hyperlipidemia, unspecified hyperlipidemia type (CMS/HCC) Take 1 tablet (20 mg) by mouth at bedtime 90 tablet 1 05/02/2024 10/29/2024 Active 24 hr trospium chloride 60 mg extended [...] 3 days. 10 tablet 0 06/30/2022 Active [id number] actuat albuterol 0.09 mg/actuat metered dose [...] 1 tablet by stone th once daily aspirin (ASPIRIN LOW DOSE) 81 MG EC tablet Take 81 mg by mouth 1 (one) time each day at the same time Active End: 07-09-2022 aspirin 81 MG Chew [...] days. 14 capsule 0 06/30/2022 07/07/2022 Active clindamycin 300 mg oral capsule (5 sources) Lincosamide Antibacterial Start: 01-31-2024 End: 05-08-2024 take 300 mg by mouth every eight hours Clindamycin Hcl Discontinued 300 MG PO Every 8 hours January 31, 2024 12:00am May 08, 2024 1:29pm Start: 01-05-2024 take 300 mg by mouth every eight hours Clindamycin Hcl Active 300 MG PO Q8H January 05, 2024 12:00am fumarate (5 sources) Start: 10-29-2023 End: 05-08-2024 take 1 tablet by mouth once daily Vaurogo-Ygsq2-Rindidr Fumarate Discontinued 1 TAB PO Daily October 29, 2023 1:00am May 08, 2024 1:28pm Start: 10-29-2023 take 1 tablet by stone th once daily Exhvtwq-Zwug8-Muigcbf Fumarate Active 1 TAB PO Daily October 29, 2023 1:00am Start: 10-29-2023 take 1 tablet by stone th once daily Zwpriqg-Kabc5-Ukkygtg Fumarate Active 1 TAB PO Daily October 29, 2023 12:00am furosemide 20 mg oral tablet (5 sources) Loop Diuretic Start: 11-01-2023 End: 01-31-2024 [...] 07-09-2022 methylene blue (PROVAYBLUE) injection Multivitamin preparation (10 sources) Start: 10-29-2023 End: 01-31-2024 take 1 [...] Cellulose (SURGICEL) topical pad polyethylene glycol 3350 [id number] mg / potassium chloride 2970 mg / sodium bicarbonate 6740 mg / sodium chloride 5860 mg / sodium sulfate 41144 mg powder for oral solution (1 source) [...] unspecified female breast] Onset: 11-03-2012 05-20-2022 Chronic Conditions associated with dizziness or vertigo (1 source) Dizziness and giddiness; Translations: [Dizziness and giddiness] Onset: 04-12-2024 Episodic Diabetes mellitus without complication (2 sources) Impaired fasting glucose Episodic Disorders of lipid metabolism (20 sources) Hyperlipidemia; Translations: [Hyperlipidemia, unspecified] Onset: 10-23-2013 05-20-2022 Chronic Esophageal disorders (20 sources) Gastroesophageal reflux disease; Translations: [Gastro-esophageal reflux disease without esophagitis] Onset: 11-03-2012 05-20-2022 Chronic Headache; including migraine (1 source) Headache Onset: 08-05-2018 Episodic Immunizations and screening for infectious disease (1 source) Other specified abnormal immunological findings in serum; Translations: [Other specified abnormal immunological findings in serum] Onset: 04-12-2024 Episodic Mood disorders (20 sources) Depressive disorder; Translations: [Depressive disorder] Onset: 11-03-2012 05-20-2022 Chronic Nonspecific chest pain (20 sources) Chest pain; Translations: [Chest pain, unspecified] Onset: 05-20-2022 05-20-2022 Episodic Nutritional deficiencies (1 source) Iron deficiency; Translations: [Iron deficiency] Onset: 04-12-2024 Episodic Osteoarthritis (17 sources) Degenerative joint disease involving multiple joints; Translations: [Polyosteoarthritis, unspecified] Onset: 11-03-2012 05-20-2022 Chronic Other aftercare (1 source) Encounter for therapeutic drug level monitoring; Translations: [Encounter for therapeutic drug level monitoring] Onset: 04-12-2024 Episodic Other connective tissue disease (2 sources) Trochanteric bursitis, right hip; Translations: [Trochanteric bursitis, right hip] Onset: 06-26-2024 Episodic Other connective tissue disease (2 sources) Trochanteric bursitis, left hip; Translations: [Trochanteric bursitis, left hip] Onset: 06-26-2024 Episodic Other diseases of bladder and urethra (5 sources) Overactive bladder; Translations: [Overactive bladder] Chronic Other diseases of bladder and urethra (2 sources) Overactive bladder Chronic Other nervous system disorders (2 sources) Ataxia, unspecified; Translations: [Ataxia, unspecified] Onset: 03-02-2024 Episodic Other non-traumatic joint disorders (5 sources) Hip pain; Translations: [Pain in left hip] Onset: 04-11-2024 04-11-2024 Episodic Other nutritional; endocrine; and metabolic disorders (12 sources) Obese class II; Translations: [Obesity, unspecified] Onset: 06-16-2022 06-16-2022 Chronic Other nutritional; endocrine; and metabolic disorders (5 sources) Body mass index 40+ - severely obese; Translations: [Body mass index (BMI) 40.0-44.9, adult] Chronic Other nutritional; endocrine; and metabolic disorders (10 sources) Body mass index 30+ - obesity; Translations: [Body mass index (BMI) 37.0-37.9, adult] 11-01-2023 Chronic Other nutritional; endocrine; and metabolic disorders (15 sources) Obesity; Translations: [Obesity, unspecified] 10-29-2023 Chronic Other nutritional; endocrine; and metabolic disorders (9 sources) Obesity, unspecified; Translations: [Obesity, unspecified] Chronic Other nutritional; endocrine; and metabolic disorders (2 sources) Body mass index (BMI) 34.0-34.9, adult Chronic Other nutritional; endocrine; and metabolic disorders (1 source) Obese class I; Translations: [Body mass index (BMI) 34.0-34.9, adult] Chronic Other nutritional; endocrine; and metabolic disorders (5 sources) Body mass index (BMI) 32.0-32.9, adult; Translations: [Body Mass Index 32.0-32.9, adult] 11-01-2023 Chronic Other screening for suspected conditions (not mental disorders or infectious disease) (4 sources) Patient encounter status; Translations: [Encounter for screening for malignant neoplasm of colon] Onset: 07-11-2024 07-11-2024 Episodic Residual codes; unclassified (15 sources) Obstructive sleep apnea syndrome; Translations: [Obstructive sleep apnea (adult) (pediatric)] Onset: 11-29-2023 10-29-2023 Chronic Residual codes; unclassified (7 sources) Obstructive sleep apnea (adult) (pediatric); Translations: [Obstructive sleep apnea (adult)(pediatric)] Chronic Residual codes; unclassified (10 sources) Dependence on continuous positive airway pressure ventilation; Translations: [Dependence on other enabling machines and devices] Onset: 01-06-2024 11-01-2023 Chronic Residual codes; unclassified (4 sources) Localized edema; Translations: [LOCALIZED EDEMA] Onset: 09-16-2022 Episodic Residual codes; unclassified (2 sources) History of reconstruction of right breast; Translations: [Other specified postprocedural states] 12-22-2023 Episodic Spondylosis; intervertebral disc disorders; other back problems (1 source) Other intervertebral disc degeneration, lumbar region; Translations: [Other intervertebral disc degeneration, lumbar region] Onset: 04-12-2024 Chronic Spondylosis; intervertebral disc disorders; other back problems (16 sources) Sacrococcygeal disorders, not elsewhere classified; Translations: [...] [Dietary counseling and surveillance] Onset: 08-30-2023 Episodic Cancer of breast (20 sources) History of malignant neoplasm of breast; Translations: [Personal history of malignant neoplasm of breast] Onset: 05-20-2022 Episodic Epilepsy; convulsions (2 sources) Unspecified convulsions; Translations: [Unspecified convulsions] Onset: 11-18-2023 Episodic Genitourinary symptoms and ill-defined conditions (3 sources) History of urinary tract infection; Translations: [Personal history of urinary (tract) infections] Onset: 01-06-2024 01-06-2024 Episodic Joint disorders and dislocations; trauma-related (16 sources) Tear of medial meniscus of knee; Translations: [Other tear of medial meniscus, current injury, unspecified knee, initial encounter] Onset: 02-27-2020 05-20-2022 Episodic Mood disorders (1 source) Mood disorders Onset: 08-17-2023 08-17-2023 Nonmalignant breast conditions (20 sources) Hypertrophy of breast; Translations: [Hypertrophy of breast] Onset: 12-22-2023 05-05-2023 Episodic Other diseases of veins and lymphatics (4 sources) Venous insufficiency of leg; Translations: [Venous insufficiency (chronic) (peripheral)] Onset: 01-06-2023 01-06-2023 Episodic Other ear and sense organ disorders (3 sources) Tinnitus; Translations: [Tinnitus, unspecified ear] Onset: 09-02-2023 09-02-2023 Episodic Other non-traumatic joint disorders (4 sources) Pain in right hip; Translations: [PAIN IN RIGHT HIP] Onset: 01-13-2022 Episodic Other non-traumatic joint disorders (1 source) Pain in left hip; Translations: [PAIN IN LEFT HIP] Onset: 01-14-2022 Episodic Residual codes; unclassified (20 sources) Acquired absence of breast; Translations: [Acquired absence of right breast and nipple] Onset: 05-20-2022 Episodic Residual codes; unclassified (14 sources) History of breast reconstruction; Translations: [Other specified postprocedural states] Onset: 10-21-2022 Episodic Residual codes; unclassified (2 sources) Acquired absence of right breast and nipple; Translations: [Acquired absence of right breast and nipple] Onset: 07-09-2022 Episodic Residual codes; unclassified (9 sources) Other specified postprocedural states; Translations: [Breast replacement] Onset: 08-12-2022 Episodic Unclassified (1 source) CONTACT W/AND (SUSP) EXPOS COVID-19; Translations: [CONTACT W/AND (SUSP) EXPOS COVID-19] Onset: 03-02-2022 Results Test Name Value Interpretation Reference Range Facility Urology Office/Clinic Noteon 08-24-2024 Urology Office/Clinic Note Chief Complaint 1 year f/u History of Present Illness 74 year old female presents for 1 year symptom check. She continues toviaz for OAB. She has had worsening symptoms over the past year. States that she is averaging waking up 5-6 times at night. Last night was especially bad and woke up almost 10 times. She does wear a CPAP for sleep apnea consistently. She does have peripheral edema which has been getting worse over this past year. Her has noticed a vaginal bulge, patient does not have any pelvic pressure or discomfort. SHe has urge incontinence, but this is worse at night. History: s/p LUIGI/BSO with Anterior and Posterior repair and [place] [address] Nancy Dallas. She then had another anterior colporrhaphy [address] Nancy Dallas. Failed oxybutynin and trospium prior, Myrbetriq too expensive. Review of Systems General: No fever, chills. Physical Exam Vitals & Measurements HT: 168 cm WT: 87.6 kg WT: 87.6 kg (Dosing) BMI: 31.04 General: well-developed, in no acute distress. Neuro: Alert and oriented. Gait is steady. Speech is clear and appropriate. MS: Equal movement x 4 extremities. No obvious weakness. Cardiovascular: No cyanosis. Lungs: No respiratory distress. No audible wheezing. External genitalia: No lesions. Normal hair distribution. Urethral meatus: Intact without caruncle formation. Urethra: No palpable mass to suggest diverticulum. Vaginal Assessment: No vaginal discharge. Prolapse assessment: Anterior: None Posterior: G2- stool palpated in rectum. Apical: None Incontinence: No hypermobility or demonstrable stress incontinence. Anus and Perineum: Normal in appearance. Additional Vitals No qualifying data available. Assessment/Plan 1. OAB (overactive bladder) Continues toviaz 8mg. Return with void diary to assess nocturia as this is her main complaint. She has had worsening low back pain seeing pain management as well. 2. Nocturia Nighttime symptoms much worse than daytime. She uses CPAP consistently. Worsening peripheral edema over the past year. Return with voiding diary. 3. Rectocele G2, reports difficulty with evacuating stool. is trying to encourage PFPT (he went to PFPT after prostatectomy and still practices exercises). She sees PT for her back, will discuss exercises with them. Revisit at f/u. Problem List/Past Medical History Ongoing CAD (coronary [...] breast cancer History of colonoscopy with polypectomy W[place] (myocardial infarction) (2013) Morbid obesity with body mass index (BMI) of 40.0 or higher Obesity, BMI not known PMB (postmenopausal bleeding) Sleep apnea Thickened endometrium Vaginal ulcer Procedure/Surgical History Bilateral cataract extraction Left knee arthroscopy Extensive vaginal resection of vaginal tissue Right shoulder, rotator cuff repair Hysteroscopy, D&C Sinus surgery (1984) Tubal ligation (1989) Right mastectomy (1992) Right knee arthroscopy (07/2014) Cardiac catheterization (07/2014) Total Hysterectomy Robotic Si (05/04/2017) Dilatation and Curettage (05/04/2017) Repair Anterior and Posterior Vagina (05/04/2017) Blakely Procedure Robotic Si (05/04/2017) Colonoscopy Polypectomy (04/20/2019) Esophagogastroduodenoscopy with Biopsy with Arana (02/15/2020) Esophageal Manometry (02/15/2020) Urodynamic studies (05/26/2021) Repair Anterior Vagina (06/27/2021) Right breast reconstruction (06/2022) Repair Hernia Inguinal Robotic X/Xi (Left) (07/01/2023) Medications Afrin 0.05% nasal spray, See Instructions, 1 spray HS Aspirin Low Dose, 81 mg, Oral, Daily Calcium 600+D, 2, Oral, Daily citalopram 20 mg oral tablet, 135 EA, take 1 and 1/2 tablet by mouth once daily Collagen, 1 tabs, Oral, Daily esomeprazole 40 [...] mg oral tablet, extended release, 8 mg= (more content not included)... Normal [facility] Plastic Surgery Visit Report on 07-26-2024 Plastic Surgery Visit Report [facility] Plastic Reconstructive Surgery [address], [address] [place] [address] OFFICE VISIT Date of Service: 07/26/24 MR#: [id number] Acct: [id number] Name: BERENICE NOLASCO Rep #: [id number] : 1950 Provider: Dr. Apolinar flores MD Age/Sex: 74/F Location: [facility] Status: Signed Intake Vital Signs 03/22/24 13:26 07/26/24 14:21 Height 5 ft 6 in 5 ft 6 in Weight: 201 lb 2 oz BMI 32.4 BP 116/73 134/82 H Blood Pressure Location Lt brachial Lt brachial Position Sitting Sitting Respiration 18 16 Pulse 71 69 Temp 98.9 F 97.3 F L Temp Source Temporal Oral Pulse Oximetry (%) 96 95 Oxygen Delivery Method room air room air Intake Visit Reasons: Nipple reconstruction consult Chief Complaint: nipple reconstruction consult Is patient in pain?: Yes (03/22 back) Allergies acetaminophen (From Percocet) Allergy (Mild, Verified 07/26/24 14:22) Swelling oxycodone (From Percocet) Allergy (Mild, Verified 07/26/24 14:22) Swelling Penicillins Allergy (Verified 07/26/24 14:22) Rash Sulfa (Sulfonamide Antibiotics) Allergy (Verified 07/26/24 14:22) Rash Medications ???Medication ???Instructions ???Recorded ???Confirmed ???Type ascorbic acid 30 mg-collagen, 1 tab PO DAILY 05/05/23 07/26/24 History hydrolyzed 833.3 mg tablet (Collagen Skin Renewal) aspirin 81 mg tablet,delayed 81 mg PO DAILY 05/05/23 07/26/24 History release calcium 600 mg (as 1 cap PO DAILY 05/05/23 07/26/24 History carbonate)-vitamin D3 12.5 mcg (500 unit) capsule (Calcium with Vit D3) citalopram 20 mg tablet 30 mg PO DAILY 05/05/23 07/26/24 History esomeprazole magnesium 40 mg 40 mg PO DAILY 05/05/23 07/26/24 History capsule,delayed release famotidine 20 mg tablet 20 mg PO QHS 05/05/23 07/26/24 History fesoterodine 8 mg tablet,extended 8 mg PO DAILY 05/05/23 07/26/24 History release 24 hr levothyroxine 50 mcg tablet 50 mcg PO DAILY 05/05/23 07/26/24 History melatonin 10 mg tablet 10 mg PO HS 05/05/23 07/26/24 History svxyypnv-vso-znzzb acid 0.4 1 tab PO DAILY 05/05/23 07/26/24 History mg-lycopene 300 mcg-lutein 250 mcg tablet (Complete Multivitamin Adult 50 Plus) semaglutide 0.25 mg or 0.5 mg (2 0.25 mg subcut TH 05/05/23 07/26/24 History mg/3 mL) subcutaneous pen injector (Ozempic) simvastatin 20 mg tablet 20 mg PO QHS 05/05/23 07/26/24 History Lactobacillus acidophilus 250 500 mmu cells PO DAILY 12/30/23 07/26/24 History million cell capsule (Probiotic Acidophilus) flaxseed oil 1,000 mg capsule 1,000 mg PO DAILY 12/30/23 07/26/24 History celecoxib 50 mg capsule (Celebrex) 50 mg PO .prn 07/26/24 07/26/24 History Have you fallen in the past year?: No Nurse's Note: pt here with for nipple reconstruction consult. [facility] Medical History (Updated 07/26/24 @ 15:[address] Apolinar Henry MD) Post-menopausal Wears glasses Depression Alcohol use Thyroid [...] Aspirin use daily. Occasional Ibuprofen use. HPI Nipple reconstruction consult Details: Berenice is a 74-year-old female who presents for ongoing reconstruction of her right breast which is status post mastectomy for cancer. She has successfully undergone reconstruction with a tissue salesforce consultant and now would like to have nipple areolar reconstruction. She states her health has been good with the exception of chronic back pain for which she sees a provider for injections. Exam Details She has acquired absence of the right breast. The incisions are well-approximated. On the inferior aspect of the reconstructed breast, there is a small knuckle of prominence of the implant likely from a defect in the pec major (more content not included)... Normal [facility] Office Visiton 06-26-2024 Follow-up visit [id number] Berenice Nolasco [place] 1950 F Date Provider Department Center 06/26/2024 [facility] No family history on file Level of Service:84261 DC OFFICE/OUTPATIENT ESTABLISHED MOD MDM 30 MIN (25) Reason for Visit and Comments: Pain [136] Normal [facility] Antinuclear AB, ECHO-ana rosa chung, (RICARDO by IFA)on 04-12-2024 Antinuclear Ab, HEp-2 Substrate, S Negative Normal <1:80 (Negative) [facility] Comment on above: Result Comment: NOTE ADDITIONAL INFORMATION Method: Immunofluorescence using HEp-2 cellular substrate. Test Performed by: [facility] - [address] [address] City Superintendent: Samira Rodriguez Ph.D.; CLIA# [id number] Performed By: #### C BCA, CMP, THYR, 2132-9, 29572-5, ENAP, 97399-0, 5130-0, 29973-7 #### [facility] ([id number]) [address] [place] [address], [address] [place] [address] FERRITINon 04-12-2024 Ferritin [Mass/Vol] 50 ng/mL Normal 11-307 [facility] Comment on above: Performed By: #### C BCA, CMP, THYR, 2131-9, 35866-4, ENAP, 05496-4, 5130-0, 84497-6 #### [facility] ([id number]) [address], [address] [place] [address] IRON PROFILEon 04-12-2024 Iron [Mass/Vol] 65 ug/dL Normal 50-170 [facility] Comment on above: Performed By: #### C BCA, CMP, THYR, 2132-05, 61358-5, ENAP, 08814-6, 5130-0, 91233-1 #### [facility] ([id number]) [address], [address] [place] [address] IRON BINDING 354 ug/dL Normal 250-425 [facility] Comment on above: Performed By: #### C BCA, CMP, THYR, 2132-05, 75511-3, ENAP, 20777-4, 5130-0, 27654-1 #### [facility] ([id number]) [address], [address] [place] [address] IRON SATURATION 18 % SATURATION Normal 15-50 [facility] Comment on above: Performed By: #### C BCA, CMP, THYR, 2132-05, 48409-2, ENAP, 91260-1, 5130-0, 38276-7 #### [facility] ([id number]) [address], [address] [place] [address] THYROGLOBULIN ABon 4 Thyroglobulin Ab Qn [IU]/mL Normal <4.0 [facility] Comment on above: Performed By: #### C BCA, CMP, THYR, 2132-05, 07444-3, ENAP, 04769-8, 5130-0, 78604-4 #### [facility] ([id number]) [address] [place] [address] THYROPEROXIDASE ABon 07-31-2 024 TPO Ab Qn 7 [IU]/mL Normal <10 [facility] Comment on above: Performed By: #### C BCA, CMP, THYR, 2132-9, 08733-4, ENAP, 95365-8, 5130-0, 67468-1 #### [facility] ([id number]) [address], [address] [place] [address] Plastic Surgery Visit Report on 03-22-2024 Plastic Surgery Visit Report [facility] Plastic Reconstructive Surgery [address] [facility], [address] [place] [address] OFFICE VISIT Date of Service: 03/22/24 MR#: [id number] Acct: [id number] Name: BERENICE NOLASCO Rep #: [id number] : 1950 Provider: Dr. Apolinar flores MD Age/Sex: 73/F Location: [facility] Status: Signed Intake Vital Signs 03/01/24 14:05 03/22/24 13:26 Height 5 ft 6 in 5 ft 6 in Weight: 202 lb 8 oz 201 lb 2 oz BMI 32.6 32.4 BP 129/81 H 116/73 Blood Pressure Location Lt brachial Lt brachial Position Sitting Sitting Respiration 16 18 Pulse 75 71 Temp 98.2 F 98.9 F Temp Source Temporal Temporal Pulse Oximetry (%) 93 96 Oxygen Delivery Method room air room air Intake Visit Reasons: 3 week f/u Chief Complaint: post op left breast reduction/port removal Accompanied by: Is patient in pain?: No Allergies acetaminophen (From Percocet) Allergy (Mild, Verified 03/22/24 13:27) Swelling oxycodone (From Percocet) Allergy (Mild, Verified 03/22/24 13:27) Swelling Penicillins Allergy (Verified 03/22/24 13:27) Rash Sulfa (Sulfonamide Antibiotics) Allergy (Verified 03/22/24 13:27) Rash Medications ???Medication ???Instructions ???Recorded ???Confirmed ???Type ascorbic acid 30 mg-collagen, 1 tab PO DAILY 05/05/23 03/22/24 History hydrolyzed 833.3 mg tablet (Collagen Skin Renewal) aspirin 81 mg tablet,delayed 81 mg PO DAILY 05/05/23 03/22/24 History release calcium carbonate 600 mg-vitamin 1 cap PO DAILY 05/05/23 03/22/24 History D3 12.5 mcg (500 unit) capsule (Calcium 600 with Vitamin D3) citalopram 20 mg tablet 30 mg PO DAILY 05/05/23 03/22/24 History esomeprazole magnesium 40 mg 40 mg PO DAILY 05/05/23 03/22/24 History capsule,delayed release famotidine 20 mg tablet 20 mg PO QHS 05/05/23 03/22/24 History fesoterodine 8 mg tablet,extended 8 mg PO DAILY 05/05/23 03/22/24 History release 24 hr levothyroxine 50 mcg tablet 50 mcg PO DAILY 05/05/23 03/22/24 History melatonin 10 mg tablet 10 mg PO HS 05/05/23 03/22/24 History vyldxczi-bqk-fnaam acid 0.4 1 tab PO DAILY 05/05/23 03/22/24 History mg-lycopene 300 mcg-lutein 250 mcg tablet (Complete Multivitamin Adult 50 Plus) semaglutide 0.25 mg or 0.5 mg (2 0.25 mg subcut TH 05/05/23 03/22/24 History mg/3 mL) subcutaneous pen injector (Ozempic) simvastatin 20 mg tablet 20 mg PO QHS 05/05/23 03/22/24 History Lactobacillus acidophilus 250 500 mmu cells PO DAILY 12/30/23 03/22/24 History million cell capsule (Probiotic Acidophilus) flaxseed oil 1,000 mg capsule 1,000 mg PO DAILY 12/30/23 03/22/24 History Have you fallen in the past year?: No Nurse's Note: pt here with post op no issues Subjective Details: Berenice comes in today for recheck of the left breast reduction and right breast reconstruction. She denies any problems. Objective Details: The open area of the left breast is closed. There is some adherent scar on the vertical aspect and I have demonstrated to this and asked her to massage the daily using some Aquaphor as a medium. She can resume normal activities. She is considering possible nipple reconstruction on the right side and therefore I reviewed creating a physical nipple and eventual tattoo versus 3D tattoo. They have lots of plans for the summer regarding traveling and therefore I asked them to call if they decide to go further with intervention. Coding Level of Care Code Global Post Op Diagnoses Status post breast reduction Z98.890 S/P breast reconstruction, right Z98.890 History of cancer of right breast Z85.3 [facility] Medical History (Updated 12/30/23 @ 10:49 by [...] Elin Beckwith) Smoking Status: Never smoker alcohol (more content not included)... Normal [facility] CBC AND AUTO DIFFon 03-02-20 ABSOLUTE BASOPHIL 0.0 X10E9/L Normal 0.0-0.2 [facility] Comment on above: Performed By: #### C BCA, CMP, THYR, 2132-9, 72996-5, ENAP, 72965-8, 5130-0, 09498-6 #### [facility] ([id number]) [address], [address] [place] [address] ABSOLUTE NEUTROPHIL 5.4 X10E9/L Normal 1.5-6.6 [facility] Comment on above: Performed By: #### C BCA, CMP, THYR, 2131-9, 89199-2, ENAP, 80522-0, 5130-0, 63760-8 #### [facility] ([id number]) [address], [address] [place] [address] Basophils/100 WBC (Bld) 0.4 % Normal [facility] Comment on above: Performed By: #### C BCA, CMP, THYR, 2131-, 69792-7, ENAP, 87973-7, 5130-0, 59556-4 #### [facility] ([id number]) [address], [address] [place] [address] Eosinophils (Bld) [#/Vol] 0.1 10*3/uL Normal 0.0-0.4 [facility] Comment on above: Performed By: #### C BCA, CMP, THYR, 2132-05, 52864-3, ENAP, 17251-4, 5130-0, 58641-3 #### [facility] ([id number]) [address], [address] [place] [address] Eosinophils/100 WBC (Bld) 1.5 % Normal [facility] Comment on above: Performed By: #### C BCA, CMP, THYR, 2131-, 77316-6, ENAP, 09884-7, 5130-0, 49177-0 #### [facility] ([id number]) [address], [address] [place] [address] Erythrocyte distribution width (RBC) [Ratio] 15.1 % High 11.5-15.0 [facility] Comment on above: Performed By: #### C BCA, CMP, THYR, 2131-9, 40642-7, ENAP, 84576-0, 5130-0, 27771-8 #### [facility] ([id number]) [address], [address] [place] [address] Hematocrit (Bld) [Volume fraction] 41.5 % Normal 35-47 [facility] Comment on above: Performed By: #### C BCA, CMP, THYR, 2132-05, 05525-0, ENAP, 82880-0, 5130-0, 69049-1 #### [facility] ([id number]) [address], [facility] [address] [place] [address] Hemoglobin (Bld) [Mass/Vol] 14.2 g/dL Normal 11.7-15.5 [facility] Comment on above: Performed By: #### C BCA, CMP, THYR, 2132-05, 78217-6, ENAP, 52753-1, 5130-0, 04574-7 #### [facility] ([id number]) [address], [facility] [address] [place] [address] Lymphocytes (Bld) [#/Vol] 1.8 10*3/uL Normal 1.0-3.5 [facility] Comment on above: Performed By: #### C BCA, CMP, THYR, 2132-05, 88202-1, ENAP, 26652-2, 5130-0, 07881-8 #### [facility] ([id number]) [address], [facility] [address] [place] [address] Lymphocytes/100 WBC (Bld) 22.4 % Normal [facility] Comment on above: Performed By: #### C BCA, CMP, THYR, 2132-05, 39386-4, ENAP, 81603-1, 5130-0, 39215-5 #### [facility] ([id number]) [address], [facility] [address] [place] [address] MCH (RBC) [Entitic mass] 29.3 pg Normal 27-34 [facility] Comment on above: Performed By: #### C BCA, CMP, THYR, 2131-9, 48266-9, ENAP, 78276-0, 5130-0, 65600-1 #### [facility] ([id number]) [address], [address] [place] [address] MCHC (RBC) [Mass/Vol] 34.2 g/dL Normal 32-36 [facility] Comment on above: Performed By: #### C BCA, CMP, THYR, 2131-9, 59926-0, ENAP, 59851-3, 5130-0, 38482-0 #### [facility] ([id number]) [address], [address] [place] [address] MCV (RBC) [Entitic vol] 86 fL Normal 80-100 [facility] Comment on above: Performed By: #### C BCA, CMP, THYR, 2131-9, 63612-3, ENAP, 55334-9, 5130-0, 71785-6 #### [facility] ([id number]) [address], [address] [place] [address] Monocytes (Bld) [#/Vol] 0.5 10*3/uL Normal 0-0.9 [facility] Comment on above: Performed By: #### C BCA, CMP, THYR, 2131-9, 46785-0, ENAP, 92995-9, 5130-0, 24339-4 #### [facility] ([id number]) [address], [address] [place] [address] Monocytes/100 WBC (Bld) 6.0 % Normal [facility] Comment on above: Performed By: #### C BCA, CMP, THYR, 2131-9, 14922-6, ENAP, 64191-7, 5130-0, 32545-2 #### [facility] ([id number]) [address], [address] [place] [address] Neutrophils/100 WBC (Bld) 69.7 % Normal [facility] Comment on above: Performed By: #### C BCA, CMP, THYR, 2132-9, 70557-0, ENAP, 00405-1, 5130-0, 78547-5 #### [facility] ([id number]) [address], [address] [place] [address] Platelet mean volume (Bld) [Entitic vol] 9.2 fL Normal 7-12 [facility] Comment on above: Performed By: #### C BCA, CMP, THYR, 2131-9, 63994-9, ENAP, 15110-7, 5130-0, 24486-2 #### [facility] ([id number]) [address], [address] [place] [address] Platelets (Bld) [#/Vol] 166 10*3/uL Normal 150-450 [facility] Comment on above: Performed By: #### C BCA, CMP, THYR, 2131-9, 04977-8, ENAP, 40730-7, 5130-0, 85467-3 #### [facility] ([id number]) [address], [address] [place] [address] RBC COUNT 4.84 X10E12/L Normal 3.80-5.20 [facility] Comment on above: Performed By: #### C BCA, CMP, THYR, 2131-9, 92301-6, ENAP, 61002-6, 5130-0, 41286-2 #### [facility] ([id number]) [address], [address] [place] [address] WBC (Bld) [#/Vol] 7.8 10*3/uL Normal 4.0-11.0 [facility] Comment on above: Performed By: #### C BCA, CMP, THYR, 2-9, 40382-0, ENAP, 56626-5, 5130-0, 58152-6 #### [facility] ([id number]) [address], [address] [place] [address] COMPREHENSIVE METABOLIC PANE [facility] 03-02-2024 Albumin [Mass/Vol] 4.1 g/dL Normal 3.2-5.3 [facility] Comment on above: Performed By: #### C BCA, CMP, THYR, 2-9, 27688-3, ENAP, 14904-2, 5130-0, 06837-5 #### [facility] ([id number]) [address], [address] [place] [address] ALP [Catalytic activity/Vol] 149 U/L High 39-130 [facility] Comment on above: Performed By: #### C BCA, CMP, THYR, 2131-9, 77582-5, ENAP, 73614-7, 5130-0, 14802-5 #### [facility] ([id number]) [address], [address] [place] [address] ALT [Catalytic activity/Vol] 39 U/L High 0-31 [facility] Comment on above: Performed By: #### C BCA, CMP, THYR, 2131-9, 55746-3, ENAP, 29473-2, 5130-0, 18582-1 #### [facility] ([id number]) [address], [address] [place] [address] Anion gap [Moles/Vol] 8 mmol/L Normal 5-15 [facility] Comment on above: Performed By: #### C BCA, CMP, THYR, 2131-9, 33060-5, ENAP, 32069-9, 5130-0, 13340-5 #### [facility] ([id number]) [address], [address] [place] [address] AST [Catalytic activity/Vol] 34 U/L Normal 0-41 [facility] Comment on above: Performed By: #### C BCA, CMP, THYR, 2131-9, 11367-6, ENAP, 58108-8, 5130-0, 72629-9 #### [facility] ([id number]) [address] [place] [address] Bilirubin [Mass/Vol] 0.5 mg/dL Normal 0.3-1.2 [facility] Comment on above: Performed By: #### C BCA, CMP, THYR, 2-9, 97394-9, ENAP, 49697-9, 5130-0, #### [facility] ([id number]) [address], [address] [place] [address] Calcium [Mass/Vol] 9.4 mg/dL Normal 8.5-10.5 [facility] Comment on above: Performed By: #### C BCA, CMP, THYR, 2131-9, 25054-4, ENAP, 03391-7, 5130-0, #### [facility] ([id number]) [address], [address] [place] [address] Chloride [Moles/Vol] 104 mmol/L Normal 98-109 [facility] Comment on above: Performed By: #### C BCA, CMP, THYR, 2131-9, 88777-4, ENAP, 75954-1, 5130-0, #### [facility] ([id number]) [address], [address] [place] [address] CO2 [Moles/Vol] 29 mmol/L Normal 22-32 [facility] Comment on above: Performed By: #### C BCA, CMP, THYR, 2131-9, 82574-8, ENAP, 31786-4, 5130-0, #### [facility] ([id number]) [address], [address] [place] [address] Creatinine [Mass/Vol] 0.71 mg/dL Normal 0.40-1.00 [facility] Comment on above: Result Comment: METH OD TRACEABLE TO IDMS STANDARD Performed By: #### C BCA, CMP, THYR, 9, 26221-6, ENAP, 71539-0, 5130-0, 84908-9 #### [facility] ([id number]) [address], [address] [place] [address] GFR/1.73 sq M.predicted among non-blacks MDRD (S/P/Bld) [Vol rate/Area] 90 mL/min/{1.73_m2} Normal >59 [facility] Comment on above: Result Comment: Reported eGFR is based on the CKD-EPI 2020 equation that does not use a race coefficient. Performed By: #### C BCA, CMP, THYR, 2132-05, 79611-9, ENAP, 19730-7, 5130-0, #### [facility] ([id number]) [address], [address] [place] [address] Glucose [Mass/Vol] 55 mg/dL Low 65-99 [facility] Comment on above: Performed By: #### C BCA, CMP, THYR, 2132-05, 76895-0, ENAP, 59535-1, 5130-0, 47857-5 #### [facility] ([id number]) [address], [address] [place] [address] Potassium [Moles/Vol] 4.4 mmol/L Normal 3.5-5.0 [facility] Comment on above: Performed By: #### C BCA, CMP, THYR, 9, 46776-8, ENAP, 12435-7, 5130-0, 98014-5 #### [facility] ([id number]) [address], [address] [place] [address] Protein [Mass/Vol] 6.9 g/dL Normal 6.0-8.0 [facility] Comment on above: Performed By: #### C BCA, CMP, THYR, 9, 66904-8, ENAP, 62576-2, 5130-0, 83542-9 #### [facility] ([id number]) [address], [address] [place] [address] Sodium [Moles/Vol] 141 mmol/L Normal 134-146 [facility] Comment on above: Performed By: #### C BCA, CMP, THYR, 2132-9, 02744-3, ENAP, 56076-2, 5130-0, 17489-4 #### [facility] ([id number]) [address], [address] [place] [address] Urea nitrogen [Mass/Vol] 12 mg/dL Normal 5-27 [facility] Comment on above: Performed By: #### C BCA, CMP, THYR, 2132-9, 63553-6, ENAP, 98759-5, 5130-0, 80825-9 #### [facility] ([id number]) [address], [address] [place] [address] Chromatin Ab Qlon 03-02-2024 CHROMATIN AB IGG <0.2 Normal <1.0 [facility] Comment on above: Performed By: #### C BCA, CMP, THYR, 2132-9, 50042-8, ENAP, 27983-8, 5130-0, 95306-9 #### [facility] ([id number]) [address], [facility] [address] [place] [address] Copper [Mass/Vol]on 03-02-20 24 COPPER 88 ug/dL Normal 80-155 [facility] Comment on above: Result Comment: NOTE This test was developed and its performance characteristics determined by [facility]'s [facility] Pathology and Laboratory Medicine [place] ([facility]). It has not been cleared or approved by the FDA. [facility] is regulated under CLIA as qualified to perform high-complexity testing. This test is used for clinical purposes. It should not be regarded as investigational or for research. Test Performed By: [facility] [employer] [address] [place] [address] Seo Team Lead: Claire Conn III #[id number] DNA double strand Ab Qn (S)o n 03-02-2024 DOUBLE STRANDED DNA <1 Normal <5 [facility] Comment on above: Result Comment: Interpretation-------- <5 Negative 5-9 Indeterminate >9 Positive Performed By: #### C BCA, CMP, THYR, 213-9, 15425-1, ENAP, 55532-2, 5130-0, 76664-5 #### [facility] ([id number]) [address], [address] [place] [address] LARISSA PANELon 03-02-2024 ANTI-LIMA AB IGG <0.2 Normal <1.0 [facility] Comment on above: Performed By: #### C BCA, CMP, THYR, 2131-9, 56152-9, ENAP, 22907-2, 5130-0, 70362-7 #### [facility] ([id number]) [address], [address] [place] [address] JO1 ANTIBODY <0.2 Normal <1.0 [facility] Comment on above: Performed By: #### C BCA, CMP, THYR, 2131-9, 65922-4, ENAP, 68945-7, 5130-0, 30019-6 #### [facility] ([id number]) [address], [address] [place] [address] REELER OPERATOR ANTIBODY IGG 2.0 AI High <1.0 [facility] Comment on above: Performed By: #### C BCA, CMP, THYR, 2131-9, 67228-2, ENAP, 89303-9, 5130-0, 29914-6 #### [facility] ([id number]) [address], [address] [place] [address] SCL 70 ANTIBODY <0.2 Normal <1.0 [facility] Comment on above: Performed By: #### C BCA, CMP, THYR, 2132-9, 54277-1, ENAP, 19141-2, 5130-0, 73630-9 #### [facility] ([id number]) [address], [address] [place] [address] SSA ANTIBODY <0.2 Normal <1.0 [facility] Comment on above: Performed By: #### C BCA, CMP, THYR, 2-9, 50479-3, ENAP, 78409-5, 5130-0, 70680-6 #### [facility] ([id number]) [address], [facility] [address] [place] [address] SSB ANTIBODY <0.2 Normal <1.0 [facility] Comment on above: Performed By: #### C BCA, CMP, THYR, 2-9, 17188-7, ENAP, 15990-4, 5130-0, 11137-9 #### [facility] ([id number]) [address], [address] [place] [address] Nuclear Ab IA Ql (S)on 03-02 RICARDO Screen w/reflex Positive Abnormal NEG [facility] Comment on above: Result Comment: Testing performed using multiplex flow immunoassay. Eleven different antigens associated with systemic autoimmune diseases (dsDNA,Sm,Sm/REELER OPERATOR,REELER OPERATOR,Chromatin, SSA,SSB,Michaelle-1,Scl70,Ribo P,Centromere B) are included in this screening test. Performed By: #### C BCA, CMP, THYR, 2-9, 61824-7, ENAP, 86790-7, 5130-0, 54470-8 #### [facility] ([id number]) [address], [address] [place] [address] Lima extractable nuclear Ab +Ribonucleoprotein extractable nuclear IgG Qn (S)on 03-02-2024 LIMA/REELER OPERATOR AB IGG <0.2 Normal <1.0 [facility] Comment on above: Performed By: #### C BCA, CMP, THYR, 2132-05, 24949-1, ENAP, 41109-9, 5130-0, 86783-2 #### [facility] ([id number]) [address], [address] [place] [address] THYROID PROFILEon 03-02-2024 Free T4 [Mass/Vol] 0.97 ng/dL Normal 0.61-1.60 [facility] Comment on above: Performed By: #### C BCA, CMP, THYR, 2132-05, 80728-9, ENAP, 93631-2, 5130-0, 33453-6 #### [facility] ([id number]) [address], [address] [place] [address] TSH 1.16 uIU/mL Normal 0.49-4.67 [facility] Comment on above: Performed By: #### C BCA, CMP, THYR, 9, 32479-2, ENAP, 36975-3, 5130-0, 23193-7 #### [facility] ([id number]) [address], [address] [place] [address] VITAMIN B12on 03-02-2024 Cobalamin (Vitamin B12) [Mass/Vol] 582 pg/mL Normal 180-914 [facility] Comment on above: Performed By: #### C BCA, CMP, THYR, 2132-05, 30016-1, ENAP, 26943-6, 5130-0, 90746-5 #### [facility] ([id number]) [address], [address] [place] [address] VITAMIN E, SER/PLon 03-02-20 24 VIT E(ALPHA-TOCOPHEROL) 13.2 mg/L Normal 5.5-18.0 [facility] Comment on above: Result Comment: NOTE This test was developed and its performance characteristics determined by [employer]. It has not been cleared or approved by the US Food and Drug Administration. This test was performed in a CLIA certified laboratory and is intended for clinical purposes. Performed By: #### C BCA, CMP, THYR, 2-9, 93580-8, ENAP, 34960-1, 5130-0, 24375-0 #### [facility] ([id number]) [address] [facility], [address] [place] [address] VIT E(GAMMA-TOCOPHEROL) 0.6 mg/L Normal 0.0-6.0 [facility] Comment on above: Result Comment: NOTE Performed By: [employer] [address] [place] [address] Se[employer] Team Lead: Cornell Sánchez MD, PhD CLIA Number: [id number] Performed By: #### C BCA, CMP, THYR, 2132-05, 02432-1, ENAP, 54259-3, 5130-0, 12443-7 #### [facility] ([id number]) [address] [facility], [address] [place] [address] Plastic Surgery Visit Report on 03-01-2024 Plastic Surgery Visit Report [facility] Plastic Reconstructive Surgery [address] [facility], [address] [place] [address] OFFICE VISIT Date of Service: 03/01/24 MR#: [id number] Acct: [id number] Name: BERENICE NOLASCO Rep #: [id number] : 1950 Provider: Dr. Apolinar flores MD Age/Sex: 73/F Location: [facility] Status: Signed Intake Vital Signs 02/16/24 13:27 [...] 10 mg PO HS 05/05/23 03/01/24 History wnynkhnj-xkh-ogsqb acid 0.4 1 tab PO DAILY 05/05/23 [...] reduction Z98.890 S/P breast reconstruction, right Z98.890 [facility] Medical History (Updated 12/30/23 @ 10:49 by [...] History (Updated 05/05/23 @ 14:24 by Elin eBckwith) Mother Heart disease Father Heart disease Social History (Updated 05/05/23 @ 14:23 by Elin Beckwith) Smoking Status: Never smoker alcohol intake: current substance use type: does not use additional social history: Aspirin use daily. Occa (more content not included)... Normal [facility] Plastic Surgery Visit Report on 06-05-2024 Plastic Surgery Visit Report [facility] Plastic Reconstructive Surgery [address], [address] [place], [place] [address] OFFICE VISIT Date of Service: 02/16/24 MR#: [id number] Acct: [id number] Name: BERENICE NOLASCO Rep #: [id number] : 1950 Provider: Dr. Apolinar flores MD Age/Sex: 73/F Location: [facility] Status: Signed Intake Vital Signs 02/02/24 14:20 [...] 10 mg PO HS 05/05/23 02/16/24 History nrvrzdhb-noa-tmytv acid 0.4 1 tab PO DAILY 05/05/23 [...] reduction Z98.890 S/P breast reconstruction, right Z98.890 [facility] Medical History (Updated 12/30/23 @ 10:49 by [...] disease Soci (more content not included)... Normal [facility] Plastic Surgery Visit Report on 02-02-2024 Plastic Surgery Visit Report [facility] Plastic Reconstructive Surgery [address] [facility], [address] [place] [address] OFFICE VISIT Date of Service: 02/02/24 MR#: [id number] Acct: [id number] Name: BERENICE NOLASCO Rep #: [id number] : 1950 Provider: Dr. Apolinar flores MD Age/Sex: 73/F Location: [facility] Status: Signed Intake Vital Signs 12/14/23 [...] 10 mg PO HS 05/05/23 02/02/24 History tnpcuttp-wkb-wqvcw acid 0.4 1 tab PO DAILY 05/05/23 [...] reduction Z98.890 S/P breast reconstruction, right Z98.890 [facility] Medical History (Updated 12/30/23 @ 10:49 by [...] Heart d (more content not included)... Normal [facility] Plastic Surgery Visit Report on 01-26-2024 Plastic Surgery Visit Report [facility] Plastic Reconstructive Surgery [address], [address] [place] [address] OFFICE VISIT Date of Service: 01/26/24 MR#: [id number] Acct: [id number] Name: BERENICE NOLASCO Rep #: [id number] : 1950 Provider: Dr. Apolinar flores MD Age/Sex: 73/F Location: [facility] Status: Signed Intake Vital Signs 12/14/23 [...] patient in pain?: No (throat and chest back tender paper machine. ) Allergies acetaminophen (From Percocet) Allergy (Mild, [...] 10 mg PO HS 05/05/23 01/26/24 History ohkjduvu-khd-hljma acid 0.4 1 tab PO DAILY 05/05/23 [...] breast reconstruction, right Z98.890 Breast asymmetry between shawnee breast and reconstructed breast N65.1 Status post breast reduction Z98.890 [facility] Medical History (Updated 12/30/23 @ 10:49 by [...] Breast c (more content not included)... Normal [facility] Discharge Instructionon 01-11 Discharge Instruction [facility] Medical Records Department [address] [place] [address] Instructions for Home/Discharge Instructions 01/21/24 1037 MR#: [id number] Acct: [id number] Name: BERENICE NOLASCO Rep #: [id number] : 1950 73 From: Apolinar Henry MD PCP: Shaikh Villagran Status:REG [facility] Discharge Instructions Dressing / Incision Additional Dressing/Incision [...] Henry MD CC: Shaikh Tyshawn Signed Normal [facility] Operative Reporton 4 Operative Report [facility] Medical Records Department [address] [place] [address] Operative Report 01/21/24 1040 MR#: [id number] Acct: [id number] Name: BERENICE NOLASCO Rep #: [id number] : 1950 73 From: Apolinar Henry MD PCP: Shaikh Villagran Status:[facility] Location: [place] [address] Problems Associated Problem List Diagnoses (1) S/P breast reconstruction, right: (2) History of cancer of right breast: (3) Breast hypertrophy: (4) Breast asymmetry between shawnee breast and reconstructed breast: Report of Operation Date of Procedure: 01/21/24 Pre-Operative Diagnosis: 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 She has previously undergone right breast reconstruction with a tissue salesforce consultant with a remote port. She understands that [...] seating of the plug in the tissue salesforce consultant. The tube is checked for appropriate location [...] (if applicable): CC: Dr. Apolinar Henry MD; Freed Tyshawn Signed Normal [facility] Surgery Specimen Level [place] 01-21-2024 Surgery Specimen Level IV Patient Age/Sex Location Account Attending Physician LETICIA NOLASCOSonny MCDUFFIEYE 73/F [facility] [id number] Dr. Apolinar Henry MD Specimen: [id number] Received: 01/21/24-1100 Status: PEE [place] Num: [id number] Spec Type: MAMOPLASTY Subm Dr: Dr. Apolinar [...] fibrous areas. No mass lesion is identified. Electrifier Operator sections are submitted in six cassettes. Cassette 1 contains the skin piece. NARESH: 01/21/24 TC:5 CPT: 13883 Patient Age/Sex Location Account Attending Physician BERENICE NOLASCO 73/F [facility] [id number] Dr. Apolinar Henry MD Signed (signature on file) Dr. Steve Pichardo DO 01/24/24 1306 Normal [facility] Comment on above: Performed By: #### P YONG #### [facility] [address] [place], [address] Plastic Surgery Visit Report on 01-05-2024 Plastic Surgery Visit Report [facility] Plastic Reconstructive Surgery [address], [address] [place] [address] OFFICE VISIT Date of Service: 01/05/24 MR#: [id number] Acct: [id number] Name: BERENICE NOLASCO Rep #: [id number] : 1950 Provider: Dr. Apolinar flores MD Age/Sex: 73/F Location: [facility] Status: Signed Intake Vital Signs 12/14/23 [...] mg PO HS 05/05/23 [History Confirmed 01/05/24] asnwcjfy-nmx-goapm acid 0.4 mg-lycopene 300 mcg-lutein 250 mcg [...] postoperative instructi (more content not included)... Normal [facility] Basic Metabolic Profile (BMP )on 12-22-2023 BUN/CRE 20.5 RATIO High 10-20 [facility] Comment on above: Order Comment: pre a dmission testing for surgery Performed By: #### L 500.2500, L100.0500 #### [facility] [address] [facility] [address] [place],Total 9.1 mg/dL Normal 8.5-10.1 [facility] Comment on above: Order Comment: pre a dmission testing for surgery Performed By: #### L 500.2500, L100.0500 #### [facility] [address] [place], [address] Chloride [Moles/Vol] 108 mmol/L High 98-107 [facility] Comment on above: Order Comment: pre a dmission testing for surgery Performed By: #### L 500.2500, L100.0500 #### [facility] [address] [place], [address] CO2 [Moles/Vol] 27.0 mmol/L Normal 21.0-32.0 [facility] Comment on above: Order Comment: pre a dmission testing for surgery Performed By: #### L 500.2500, L100.0500 #### [facility] [address] [place], [address] Creatinine [Mass/Vol] 0.68 mg/dL Normal 0.55-1.02 [facility] Comment on above: Order Comment: pre a dmission testing for surgery Result Comment: The validity of the calculated GFR GFRAA in patients over 70 years has not been determined. Clinical correlation is essential. Performed By: #### L 500.2500, L100.0500 #### [facility] [address] [place], [address] EST GFR - AA 108 mL/min Normal >60 [facility] Comment on above: Order Comment: pre a dmission testing for surgery Result Comment: Afri can Austrian GFR Calc Performed By: #### L 500.2500, L100.0500 #### [facility] [address] [place], [address] GAP 3 Low 5-15 [facility] Comment on above: Order Comment: pre a dmission testing for surgery Performed By: #### L 500.2500, L100.0500 #### [facility] [address] [place], [address] GFR/1.73 sq M.predicted among non-blacks MDRD (S/P/Bld) [Vol rate/Area] 90 mL/min/{1.73_m2} Normal >60 [facility] Comment on above: Order Comment: pre a dmission testing for surgery Result Comment: Non- GFR Calc Performed By: #### L 500.2500, L100.0500 #### [facility] [address] [place], [address] Glucose [Mass/Vol] 88 mg/dL Normal 74-106 [facility] Comment on above: Order Comment: pre a dmission testing for surgery Performed By: #### L 500.2500, L100.0500 #### [facility] [address] [place], [address] Potassium [Moles/Vol] 4.6 mmol/L Normal 3.5-5.1 [facility] Comment on above: Order Comment: pre a dmission testing for surgery Performed By: #### L 500.2500, L100.0500 #### [facility] [address] [place], [address] Sodium [Moles/Vol] 138 mmol/L Normal 136-145 [facility] Comment on above: Order Comment: pre a dmission testing for surgery Performed By: #### L 500.2500, L100.0500 #### [facility] [address] [place], [address] Urea nitrogen [Mass/Vol] 14 mg/dL Normal 7-18 [facility] Comment on above: Order Comment: pre a dmission testing for surgery Performed By: #### L 500.2500, L100.0500 #### [facility] [address] [place], [address] Basophil percentageOrdered B y: Apolinar Jebyuko on 12-22-2023 Chloride [Moles/Vol] 108 mmol/L 98-107 [facility] Glucose [Mass/Vol] 88 mg/dL 74-106 [facility] Hemoglobin (Bld) [Mass/Vol] 14.1 g/dL 12.0-15.0 [facility] Potassium [Moles/Vol] 4.6 mmol/L 3.5-5.1 [facility] Sodium [Moles/Vol] 138 mmol/L 136-145 [facility] WBC (Bld) [#/Vol] 8.1 10*3/uL 4.4-11.0 [facility] CBC-Complete Blood Cnt No Di ffon 12-22-2023 Erythrocyte distribution width (RBC) [Ratio] 13.9 % Normal 11.6-14.6 [facility] Comment on above: Order Comment: Commnicki nts: preadmission testing for surgery Performed By: #### L 500.2500, L100.0500 #### [facility] [address] [place], [address] Hematocrit (Bld) [Volume fraction] 43.9 % Normal 37-47 [facility] Comment on above: Order Comment: Wei nts: preadmission testing for surgery Performed By: #### L 500.2500, L100.0500 #### [facility] [address] [place], [address] Hemoglobin (Bld) [Mass/Vol] 14.1 g/dL Normal 12.0-15.0 [facility] Comment on above: Order Comment: Wei nts: preadmission testing for surgery Performed By: #### L 500.2500, L100.0500 #### [facility] [address] [place], [address] MCH (RBC) [Entitic mass] 28.4 pg Normal 27.0-32.0 [facility] Comment on above: Order Comment: Wei nts: preadmission testing for surgery Performed By: #### L 500.2500, L100.0500 #### [facility] [address] [place], [address] MCHC (RBC) [Mass/Vol] 32.1 g/dL Normal 32-36 [facility] Comment on above: Order Comment: Commnicki nts: preadmission testing for surgery Performed By: #### L 500.2500, L100.0500 #### [facility] [address] [place], [address] MCV (RBC) [Entitic vol] 88.3 fL Normal 81-99 [facility] Comment on above: Order Comment: Wei nts: preadmission testing for surgery Performed By: #### L 500.2500, L100.0500 #### [facility] [address] [place], [address] Platelet mean volume (Bld) [Entitic vol] 10.8 fL Normal 6.2-12.0 [facility] Comment on above: Order Comment: Comme nts: preadmission testing for surgery Performed By: #### L 500.2500, L100.0500 #### [facility] [address] [place], [address] Platelets (Bld) [#/Vol] 188 10*3/uL Normal 150-450 [facility] Comment on above: Order Comment: Comme nts: preadmission testing for surgery Performed By: #### L 500.2500, L100.0500 #### [facility] [address] [place], [address] RBC (Bld) [#/Vol] 4.97 10*6/uL Normal 4.2-5.4 [facility] Comment on above: Order Comment: Comme nts: preadmission testing for surgery Performed By: #### L 500.2500, L100.0500 #### [facility] [address] [place], [address] RDW SD 44.7 fl High 35.1-43.9 [facility] Comment on above: Order Comment: Commnicki nts: preadmission testing for surgery Performed By: #### L 500.2500, L100.0500 #### [facility] [address] [place], [address] WBC (Bld) [#/Vol] 8.1 10*3/uL Normal 4.4-11.0 [facility] Comment on above: Order Comment: Comme nts: preadmission testing for surgery Performed By: #### L 500.2500, L100.0500 #### [facility] [address] [place], [address] Determination of erythrocyte mean corpuscular volume (MCV)Ordered By: Apolinar Henry on 12-22-2023 MCV (RBC) [Entitic vol] 88.3 fL 81-99 [facility] Erythrocyte distribution wid th ratioOrdered By: Apolinar Henry on 12-22-2023 Erythrocyte distribution width (RBC) [Ratio] 13.9 % 11.6-14.6 [facility] Erythrocyte distribution wid th standard deviationOrdered By: Apolinar Henry on 12-22-2023 Erythrocyte distribution width (RBC) [Entitic vol] 44.7 fL 35.1-43.9 [facility] Hematocrit Auto (Bld) [Volum e fraction]Ordered By: Apolinar Henry on 12-22-2023 Hematocrit (Bld) [Volume fraction] 43.9 % 37-47 [facility] - Chemistry and C hemistry - challengeOrdered By: Apolinar Henry on 12-22-2023 CO2 [Moles/Vol] 27.0 mmol/L 21.0-32.0 [facility] Urea nitrogen/Creatinine [Mass ratio] 20.5 mg/mg 10-20 [facility] - Hematology and Cell countsOrdered By: Apolinar Henry on 12-22-2023 MCH (RBC) [Entitic mass] 28.4 pg 27.0-32.0 [facility] MCHC (RBC) [Mass/Vol] 32.1 g/dL 32-36 [facility] Platelet mean volume (Bld) [Entitic vol] 10.8 fL 6.2-12.0 [facility] Platelets (Bld) [#/Vol] 188 10*3/uL 150-450 [facility] No Panel InformationOrdered By: Apolinar Henry on 12-22-2023 Estimated GFR (MDRD) Amer 108 mL/min >60 [facility] Comment on above: GFR Calc Estimated GFR (MDRD) Non-Af Amer 90 mL/min >60 [facility] Comment on above: Non- GFR Calc Plastic Surgery Visit Report on 12-22-2023 Plastic Surgery Visit Report [facility] Plastic Reconstructive Surgery [address], [address] [place] [address] OFFICE VISIT Date of Service: 12/22/23 MR#: [id number] Acct: [id number] Name: BERENICE NOLASCO Rep #: [id number] : 1950 Provider: Dr. Apolinar flores MD Age/Sex: 73/F Location: [facility] Status: Signed Intake Vital Signs 12/14/23 [...] mg PO HS 05/05/23 [History Confirmed 12/22/23] kpjrammo-gxx-dzzwf acid 0.4 mg-lycopene 300 mcg-lutein 250 mcg [...] op #1 left breast reduction/port removal right- [facility] Medical History (Updated 05/05/23 @ 15:33 [...] Level of (more content not included)... Normal [facility] RBC Auto (Bld) [#/Vol]Ordere d By: Apolinar Henry on 12-22-2023 RBC (Bld) [#/Vol] 4.97 10*6/uL 4.2-5.4 [facility] Serum or plasma calcium adalgisa urement (mass/volume)Ordered By: Apolinar Henry on 12-22-2023 Calcium [Mass/Vol] 9.1 mg/dL 8.5-10.1 [facility] Serum or plasma creatinine m easurement (mass/volume)Ordered By: Apolinar Henry on 12-22-2023 Creatinine [Mass/Vol] 0.68 mg/dL 0.55-1.02 [facility] Comment on above: The validity of the calculated GFR & GFRAA in patients over 70 years has not been determined. Clinical correlation is essential. Serum or plasma urea nitroge n measurement (mass/volume)Ordered By: Apolinar Henry on 12-22-2023 Urea nitrogen [Mass/Vol] 14 mg/dL 7-18 [facility] Thin prep Papanicolaou smear with manual screeningOrdered By: pAolinar Henry on 12-22-2023 Thin prep Papanicolaou smear with manual screening 3 5-15 [facility] Plastic Surgery Visit Report on 12-14-2023 Plastic Surgery Visit Report [facility] Plastic Reconstructive Surgery [address], [address] [place], [place] [address] OFFICE VISIT Date of Service: 12/14/23 MR#: [id number] Acct: [id number] Name: BERENICE NOLASCO [place] Rep #: [id number] : 1950 Provider: Dr. Apolinar flores MD Age/Sex: 73/F Location: [facility] Status: Signed Intake Vital Signs 06/30/23 15:08 [...] mg PO HS 05/05/23 [History Confirmed 12/14/23] bqbfrsov-amx-jooij acid 0.4 mg-lycopene 300 mcg-lutein 250 mcg [...] future surgery Left breast reduction, removal right salesforce consultant pot. [facility] Medical History (Updated 05/05/23 @ 15:33 [...] Exam Details The patient's right breast tissue salesforce consultant is in good position and the port [...] remove the port on the right tissue salesforce consultant which has the capability of functioning as [...] unsteady gait (more content not included)... Normal [facility] MR BRAIN W WO CONTon 024 [...] Kwon DO on 11/19/2023 10:48 AM Normal [facility] Surgery Office/Clinic Noteon 10-11-2023 Surgery Office/Clinic [...] breast cancer History of colonoscopy with polypectomy [place] (myocardial infarction) (2013) Morbid obesity with body [...] catheterization (07/2014) Comments: HAD HEART CATH AFTER [place] DURING KNEE SCOPE. NO STENTS WERE PLACED [...] cancer: Aunt/Uncle. (more content not included)... Normal [facility] Urology Office/Clinic Noteon 09-01-2023 Urology Office/Clinic Note [...] breast cancer History of colonoscopy with polypectomy [place] (myocardial infarction) (2013) Morbid obesity with body [...] (Rash) Electronically signed by Yolette Kevin MUNSON 09/01/23 12:02 EST Normal [facility] VC CONSULT FOLLOWUPon 2022 VC CONSULT FOLLOWUP Patient: LETICIA NOLASCO Exam Date: 12/16/2022 : 1950 Gender:F Ordering : TcPiero VILLAGRAN . Admission #: [id number] Family : Order #: [id number] CLICK HERE TO VIEW EXAM RADIOLOGY REPORT [...] Schwartz MD on 12/16/2022 at 14:59 Normal [facility] CBC AUTO DIFFon 09-16-2022 BASO # 0.0 103/ul Normal 0.0-0.1 [facility] Comment on above: Performed By: #### C BC #### [facility] [address] [place] [address] Dr. Danielle Penaloza Basophils/100 WBC (Bld) 0.5 % Normal 0.2-2.0 [facility] Comment on above: Performed By: #### C BC #### [facility] [address] [place] [address] Dr. Danielle Penaloza EO # 0.1 103/ul Normal 0.0-0.7 [facility] Comment on above: Performed By: #### C BC #### [facility] [address] [place] [address] Dr. Danielle Penaloza Eosinophils/100 WBC (Bld) 1.2 % Normal 0.9-7.0 [facility] Comment on above: Performed By: #### C BC #### [facility] [address] [place] [address] Dr. Danielle Penaloza Erythrocyte distribution width (RBC) [Ratio] 14.2 % Normal 11.0-15.0 [facility] Comment on above: Performed By: #### C BC #### [facility] [address] [place] [address] Dr. Danielle Penaloza Hematocrit (Bld) [Volume fraction] 42.5 % Normal 36.0-48.0 [facility] Comment on above: Performed By: #### C BC #### [facility] [address] [place] [address] Dr. Danielle Penaloza Hemoglobin (Bld) [Mass/Vol] 14.1 g/dL Normal 12.0-16.0 [facility] Comment on above: Performed By: #### C BC #### [facility] [address] [place] [address] Dr. Danielle Penaloza IG # 0.02 10e3/ul Normal 0.00-0.03 [facility] Comment on above: Performed By: #### C BC #### [facility] [address] [place] [address] Dr. Danielle Penaloza IG % 0.2 % Normal 0.0-0.5 [facility] Comment on above: Performed By: #### C BC #### [facility] [address] [place] [address] Dr. Danielle Penaloza LYMPH # 1.9 103/ul Normal 1.2-3.8 [facility] Comment on above: Performed By: #### C BC #### [facility] [address] [place] [address] Dr. Danielle Penaloza Lymphocytes/100 WBC (Bld) 23.4 % Normal 20.5-60.0 [facility] Comment on above: Performed By: #### C BC #### [facility] [address] [place] [address] Dr. Danielle Penaloza MANUAL DIFF REQ NO Normal [facility] Comment on above: Performed By: #### C BC #### [facility] [address] [place] [address] Dr. Danielle Penaloza MCH (RBC) [Entitic mass] 28.1 pg Normal 26.7-34.0 [facility] Comment on above: Performed By: #### C BC #### [facility] [address] [place] [address] Dr. Danielle Penaloza MCHC (RBC) [Mass/Vol] 33.2 g/dL Normal 29.9-35.2 [facility] Comment on above: Performed By: #### C BC #### [facility] [address] [place] [address] Dr. Danielle Penaloza MCV (RBC) [Entitic vol] 84.8 fL Normal 81.0-99.0 [facility] Comment on above: Performed By: #### C BC #### [facility] [address] [place] [address] Dr. Danielle Penaloza MONO # 0.5 103/ul Normal 0.3-0.8 [facility] Comment on above: Performed By: #### C BC #### [facility] [address] [place] [address] Dr. Danielle Penaloza Monocytes/100 WBC (Bld) 6.0 % Normal 1.7-12.0 [facility] Comment on above: Performed By: #### C BC #### [facility] [address] [place] [address] Dr. Danielle Penaloza NEUT # 5.5 103/ul Normal 1.4-6.5 [facility] Comment on above: Performed By: #### C BC #### [facility] [address] [place] [address] Dr. Danielle Penaloza Neutrophils/100 WBC (Bld) 68.7 % Normal 43.0-75.0 [facility] Comment on above: Performed By: #### C BC #### [facility] [address] [place] [address] Dr. Danielle Penaloza Platelet mean volume (Bld) [Entitic vol] 9.9 fL Normal 9.5-13.5 [facility] Comment on above: Performed By: #### C BC #### [facility] [address] [place] [address] Dr. Danielle Penaloza PLT 186 103/ul Normal 150-450 [facility] Comment on above: Performed By: #### C BC #### [facility] [address] [place] [address] Dr. Danielle Penaloza RBC 5.01 106/ul Normal 4.20-5.40 [facility] Comment on above: Performed By: #### C BC #### [facility] [address] [place] [address] Dr. Danielle Penaloza WBC 8.1 103/ul Normal 4.0-11.0 [facility] Comment on above: Performed By: #### C BC #### [facility] [address] [place] [address] Dr. Danielle Penaloza PROF CHEM 8 (BAS METB)on Anion gap [Moles/Vol] 10.8 mmol/L Normal [facility] Comment on above: Performed By: #### B MP, TSH #### [facility] [address] [place] [address] Dr. Danielle Penaloza Calcium [Mass/Vol] 9.2 mg/dL Normal 8.5-10.1 [facility] Comment on above: Performed By: #### B MP, TSH #### [facility] [address] [address] [address] Danielle Penaloza Chloride [Moles/Vol] 103 mmol/L Normal 98-107 [facility] Comment on above: Performed By: #### B MP, TSH #### [facility] [address] [address] [address] Danielle Penaloza CO2 [Moles/Vol] 30.5 mmol/L Normal 21.0-32.0 [facility] Comment on above: Performed By: #### B MP, TSH #### [facility] [address] [address] [address] Danielle Penaloza Creatinine [Mass/Vol] 0.63 mg/dL Normal 0.55-1.02 [facility] Comment on above: Performed By: #### B MP, TSH #### [facility] [address] [address] [address] Danielle Penaloza EGFR-AF SAMMARINESE >60 Normal >=60 [facility] Comment on above: Performed By: #### B MP, TSH #### [facility] [address] [address] [address] Danielle Peanloza EGFR-NON AF SAMMARINESE >60 Normal >=60 [facility] Comment on above: Performed By: #### B MP, TSH #### [facility] [address] [address] [address] Danielle Penaloza Glucose [Mass/Vol] 101 mg/dL Normal 74-106 [facility] Comment on above: Performed By: #### B MP, TSH #### [facility] [address] [address] [address] Danielle Penaloza Potassium [Moles/Vol] 4.3 mmol/L Normal 3.5-5.1 [facility] Comment on above: Performed By: #### B MP, TSH #### [facility] [address] [place] [address] Dr. Danielle Penaloza Sodium [Moles/Vol] 140 mmol/L Normal 136-145 [facility] Comment on above: Performed By: #### B MP, TSH #### [facility] [address] [place], [place] [address] Dr. Danielle Penaloza Urea nitrogen [Mass/Vol] 17.0 mg/dL Normal 7.0-18.0 [facility] Comment on above: Performed By: #### B MP, TSH #### [facility] [address] [place], [place] [address] Dr. Danielle Penaloza Urea nitrogen/Creatinine [Mass ratio] 27.0 mg/mg Normal [facility] Comment on above: Performed By: #### B MP, TSH #### [facility] [address] [place], [place] [address] Dr. Danielle Penaloza TSHon 09-16-2022 TSH 2.028 uIU/mL Normal 0.358-3.740 [facility] Comment on above: Performed By: #### B MP, TSH #### [facility] [address] [address] [address] Danielle Penaloza VC COMP CONSULTATIONon 09-16 VC COMP CONSULTATION Patient: NAYANA NOLASCO Exam Date: 09/16/2022 : 1950 Gender:F Ordering : SHAIKH Quirino VILLAGRAN . Admission #: [id number] Family : Order #: [id number] CLICK HERE TO VIEW EXAM RADIOLOGY REPORT [...] Boudreaux M.D. on 09/16/2022 at 15:49 Normal [facility] VC VENOUS REFLUX CHARLIE LMTon 0 09-16-2022 VC VENOUS REFLUX CHARLIE LMT Patient: BERENICE NOLASCO Exam Date: 09/16/2022 : 1950 Gender:F Ordering : SHAIKH Quirino VILLAGRAN . Admission #: [id number] Family : Order #: [id number] CLICK HERE TO VIEW EXAM RADIOLOGY REPORT [...] thrombus. Compressibility: Normal. Flow: Deep venous reflux. Woodworker: Prox medial lower leg perf measures 4.3 [...] Boudreaux M.D. on 09/16/2022 at 15:41 Normal [facility] XR CHEST PA AND LATERALon XR [...] Degenerative changes of the thoracic spine. Normal [facility] XR Chest PA and Lateralon Findings and [...] abnormality. Degenerative changes of the thoracic spine. [facility] Radiology Study observation (narrative) [facility] XR Chest PA and LateralOrder ed By: Silvestre Rivera on 09-15-2022 [facility] Work Phone: ECHOCARDIO M/2D COMPLETEon 1 ECHOCARDIO M/2D COMPLETE Patient: BERENICE NOLASCO Exam Date: 06/22/2022 : 1950 Gender:F Ordering : SHAIKH Quirino VILLAGRAN . Admission #: [id number] Family : APOLINAR HENRY Order #: [id number] CLICK HERE TO VIEW EXAM ECHOCARDIOGRAM REPORT [...] on 06/23/2022 at 14:19 Normal [facility] FASTINGon 06-16-2022 A:G RATIO 1.6 RATIO Normal 1.3-2.2 [facility] Comment on above: Performed By: #### C MPF #### Testing performed at [address] [address] ALBUMIN 4.4 G/dl Normal 3.5-5.0 [facility] Comment on above: Performed By: #### C MPF #### Testing performed at [address] [address] ALP [Catalytic activity/Vol] 124 U/L Normal 38-126 [facility] Comment on above: Performed By: #### C MPF #### Testing performed at [address] [address] ALT [Catalytic activity/Vol] 35 U/L High <35 [facility] Comment on above: Performed By: #### C MPF #### Testing performed at [address] [address] AST [Catalytic activity/Vol] 31 U/L Normal 14-36 [facility] Comment on above: Performed By: #### C MPF #### Testing performed at [address] [address] Bilirubin [Mass/Vol] 0.5 mg/dL Normal 0.2-1.3 [facility] Comment on above: Performed By: #### C MPF #### Testing performed at [address] [address] Calcium [Mass/Vol] 8.8 mg/dL Normal 8.4-10.2 [facility] Comment on above: Performed By: #### C MPF #### Testing performed at [address] [address] Chloride [Moles/Vol] 102 mmol/L Normal 98-107 [facility] Comment on above: Result Comment: Mendez caraballo note: Triglyceride levels of 600mg/dL or higher may positively bias chloride results by approximately 2.1 mmol Performed By: #### C MPF #### [place] [address] CO2 [Moles/Vol] 28 mmol/L Normal 22-30 [facility] Comment on above: Performed By: #### C MPF #### [place] [address] Creatinine [Mass/Vol] 0.60 mg/dL Low 0.7-1.2 [facility] Comment on above: Performed By: #### C MPF #### [place] [address] EST. GFR, 126 ml/min/1.73sq.m [facility] Comment on above: Performed By: #### C MPF #### [place] [address] EST. GFR,Non 104 ml/min/1.73sq.m [facility] Comment on above: Performed By: #### C MPF #### [place] [address] GFR Information Average GFR for 70+ years old = 75. Normal [facility] Comment on above: Result Comment: Die Casting Supervisor kurtis Kidney disease, GFR = <60. Kidney failure, GFR = <15. The GFR estimate is not adjusted for extreme body surface area or acute process, nor has it been validated for women or ethnic groups other than and . Testing performed at [place] [address] Performed By: #### C MPF #### [place] [address] Glucose [Mass/Vol] 98 mg/dL Normal 70-100 [facility] Comment on above: Result Comment: NORMAL <100 mg/dL PREDIABETES 101-126 mg/dL DIABETES 126 mg/dL or higher Performed By: #### C MPF #### Testing performed at [facility] [address] [place] [address] Potassium [Moles/Vol] 4.3 mmol/L Normal 3.5-5.1 [facility] Comment on above: Performed By: #### C MPF #### Testing performed at [facility] [address] [place] [address] Protein [Mass/Vol] 7.2 g/dL Normal 6.3-8.2 [facility] Comment on above: Performed By: #### C MPF #### Testing performed at [facility] [address] [place] [address] Sodium [Moles/Vol] 139 mmol/L Normal 137-145 [facility] Comment on above: Performed By: #### C MPF #### Testing performed at [facility] [address] [place] [address] Urea nitrogen [Mass/Vol] 14 mg/dL Normal 7-20 [facility] Comment on above: Performed By: #### C MPF #### Testing performed at [facility] [address] [place] [address] FREE T3on 03-24-2022 FREE T3 2.69 pg/mlL Normal 2.18-3.98 [facility] Comment on above: Performed By: #### B MP, TSH #### [facility] [address] [address] [address] Danielle Penaloza TSHon 03-24-2022 TSH 2.001 uIU/mL Normal 0.358-3.740 [facility] Comment on above: Performed By: #### T SH, FT3 #### [facility] [address] [address] [address] Danielle Penaloza Covid-19 PCR (CVDTB)on 02-12 SARS-CoV-2 (COVID-19) RNA ADELAIDA+probe Ql (Unsp spec) Not detected Normal NOT DETECTED [facility] Comment on above: Result Comment: This test is not yet approved or cleared by the [place] FDA. When there are no FDA-approved or cleared tests available, and other criteria are met, FDA can make tests available under an emergency access mechanism called an Emergency Use Authorization (EUA). The EUA for this test is supported by the [place] of Health and Human Service's (HHS's) declaration [...] consistent with SARS-CoV-2. Performed By: #### C [facility] #### [facility] [address] [place] [address] Dr. Danielle Penaloza Operative Reporton 0 Operative Report MR#: [id number] [facility] Pt. Name: Berenice Nolasco Room #: 0C Discharge Date: Birthdate: 1950 OPERATIVE REPORT DATE OF SURGERY: 06/07/2020 SURGEON: Adam Skinner M.D. PREOPERATIVE DIAGNOSIS: Right knee medial and lateral meniscal tears. POSTOPERATIVE DIAGNOSES: 1. Right knee medial and lateral meniscal tears. 2. Right knee Hoffa's fat pad hypertrophy and inflammation. LIE DETECTOR OPERATOR: Bindu Rick M.D. ANESTHESIA: General. PROCEDURES PERFORMED: [...] P Adam Skinner M.D. Date Dict: 06/07/2020/08:47 Sonny/Adam Skinner M.D. Date Trans: 06/07/2020 09:06 Sonny/irena [id number] cc: Trino Montiel M.D. [address] [place] [address] Normal [facility] POC GLUCOSE LABon 06-07-2020 Glucose [Mass/Vol] 109 mg/dL High 70-[address] [facility] Comment on above: Performed By: #### 8 5499 #### [facility] [address] [place] [address], [facility] *SARS-CoV-2 COVID-19on 06-04 [id number] Not Detected Normal Not Detected [facility] Comment on above: Order Comment: The A ptima SARS-CoV-2 assay is a nucleic acid amplification test intended for the qualitative detection of RNA from SARS-CoV-2 isolated and purified from nasopharyngeal (ODD JOB WORKER),oropharyngeal (OP), nasal swab, sputum, and bronchoalveolar lavage (BAL) specimens from patients with signs and symptoms of infection who are suspected of COVID-19. Results are for the identification of SARS-CoV-2 RNA. The SARS-CoV-2 RNA is generally detectable during the acute phase of infection. The Aptima SARS-CoV-2 Assay on the [employer] and Ecomm[employer] Fusion system is intended for use by laboratory personnel specifically instructed and trained in the operation of the [place] and [employer] Fusion system. The Aptima SARS-CoV-2 assay is [...] information. Performed By: #### 3 1792 #### [facility] [address] [place] [address], [facility] KNEE RIGHT 3 VWSon 0 KNEE RIGHT [address] [facility] Department of Radiology [address] [place] [address] Patient Name: BERENICE NOLASCO : 1950 Sex: F Age: Race: White Pt. Location: Patient Status: O Ordered Date: 01/22/2020 11:35:00 AM Completed Date: 01/22/2020 11:43 AM Requesting Provider: ADAM SKINNER Attending Provider: ADAM SKINNER Report Copy To: TRINO MONTIEL Signs & Symptoms: S83.281A Oth tear of lat mensc, current injury, right knee, init I10 History: Nina Comments: Exam: KNEE RIGHT 3 [facility] KNEE RIGHT 3 [facility] 01/22/2020 11:43 AM CLINICAL INDICATIONS: S83.281A Oth [...] reports Electronically signed: DELANO BLANCO. Transcribed by: [email or web address], User Resident: YONY PAN Electronically Signed by: DELANO BLANCO @ 01/22/2020 02:18 PM I personally read this/these film(s) with this resident Normal [facility] ED PROV NOTEon 08-06-2018 Protein mass conc HNO ID: [id number] thor: Cas Kernice: (none)Author Type: PhysicianType: ED Provider NotesFiled: 08/13/2018 10:43 AMNote Text:[facility] [place] [address]XATBMU INFORMATION MANAGEMENTEMERGENCY DEPARTMENT REPORTPatient: BERENICE NOLASCO JOEL A M.D. as dictated by GRUPO BROUSSARD, MELINA-[id number] [id number] FStatus: DEP ER EDDate of Service: [...] paresthesia. No weakness of extremities. She ambulates [facility].PHYSICAL EXAMINATIONHer blood pressure is 122/77, temperature 99.1, [...] M.D. Signed By: CAS CANTU M.D.Tests performed at:[facility] [place], [place] [phone] Normal [facility] ED REPORTon 08-06-2018 ED REPORT [place] [address]QXYVWN INFORMATION MANAGEMENTEMERGENCY DEPARTMENT REPORTPatient: BERENICE NOLASCO JOEL A M.D. as dictated by GRUPO BROUSSARD, MELINA-[id number] [id number] FStatus: DEP ER EDDate of Service: [...] of the plan of care will be dischargedhome.IMPRESSIONAc eh sinusitis. 08/13/18 1027 CAS CANTU M.D.cc: CAS CANTU M.D. << Signature on File>> Reported By: CAS CANTU M.D. Signed By: CAS CANTU M.D.Tests performed at:[address] [phone] Normal [facility] BCon 08-05-[address] [facility] Comment on above: Performed By: #### L 100.0440 ####[facility] [id number] [place] [address] No Growth Normal [facility] Comment on above: Performed By: #### M 105.0000 ####[facility] [id number] [place] [address] [facility] Anion gap 3 molar conc 17.5 mmol/L Normal 15-22 [facility] Comment on above: Performed By: #### L 100.0010, L301.0120 ####ML - [id number] [place] [address] Calcium mass conc 8.7 mg/dL Low 8.8-10.2 [facility] Comment on above: Performed By: #### L 100.0010, L301.0120 ####ML - [id number] [place] [address] Chloride molar conc 101 mmol/L Normal 98-107 [facility] Comment on above: Performed By: #### L 100.0010, L301.0120 ####ML - [id number] [place] [address] Creatinine mass conc 0.53 mg/dL Normal 0.50-0.90 [facility] Comment on above: Performed By: #### L 100.0010, L301.0120 ####ML - [id number] [place] [address] eGFR if AFR MELISSA > 60 ml/min/1.73m2 Normal [facility] Comment on above: Result Comment: eGFR [...] (www.nkdep.nih.gov). Performed By: #### L 100.0010, L301.0120 ####[facility] [id number] [place] [address] eGFR nonAFR Melissa > 60 ml/Min/1.73m2 Normal [facility] Comment on above: Performed By: #### L 100.0010, L301.0120 ####[facility] [id number] [place] [address] Glucose mass conc 122 mg/dL High 82-115 [facility] Comment on above: Performed By: #### L 100.0010, L301.0120 ####[facility] [id number] [place] [address] Potassium molar conc 3.5 mmol/L Normal 3.5-5.0 [facility] Comment on above: Performed By: #### L 100.0010, L301.0120 ####[facility] [id number] [place] [address] Sodium molar conc 138 mmol/L Normal 135-145 [facility] Comment on above: Performed By: #### L 100.0010, L301.0120 ####[facility] [id number] [place] [address] TCO2 23 mmol/L Normal 22-29 [facility] Comment on above: Performed By: #### L 100.0010, L301.0120 ####[facility] [id number] [place] [address] Urea nitrogen mass conc 14 mg/dL Normal 8-23 [facility] Comment on above: Performed By: #### L 100.0010, L301.0120 ####[facility] [id number] [place] [address] CBCon 08-05-2018 Basophils Auto #/vol (Bld) 0.00 x10(3) Normal 0.00-0.10 [facility] Comment on above: Performed By: #### L 200.0010 ####[facility] [id number] [place] [address] Basophils/100 WBC Auto (Bld) 0.2 % Normal 0.0-1.0 [facility] Comment on above: Performed By: #### L 200.0010 ####ML [address] [address] Eosinophils Auto #/vol (Bld) 0.00 x10(3) Normal 0.00-0.54 [facility] Comment on above: Performed By: #### L 200.0010 ####[facility] [id number] [place] [address] Eosinophils/100 WBC Auto (Bld) 0.1 % Low 0.5-4.9 [facility] Comment on above: Performed By: #### L 200.0010 ####[facility] [id number] [place] [address] Erythrocyte distribution width Auto Ratio (RBC) 15.7 % Normal 12.5-15.7 [facility] Comment on above: Performed By: #### L 200.0010 ####[facility] [id number] [place] [address] [id number] Hematocrit Auto Volume Fraction (Bld) 39.4 % Normal 36.0-48.0 [facility] Comment on above: Performed By: #### L 200.0010 ####ML [facility] [id number] [place] [address] 10916 Hemoglobin mass conc (Bld) 13.8 g/dL Normal 12.0-16.0 [facility] Comment on above: Performed By: #### L 200.0010 ####ML [facility] [id number] [place] [address] Lymphocytes Auto #/vol (Bld) 0.50 x10(3) Low 1.00-3.50 [facility] Comment on above: Performed By: #### L 200.0010 ####ML [facility] [id number] [place] [address] 88745 Lymphocytes/100 WBC Auto (Bld) 7.8 % Low 16.0-48.0 [facility] Comment on above: Performed By: #### L 200.0010 ####ML [facility] [id number] [place] [address] 74639 MCH Auto Entitic mass (RBC) 27.6 pg Low 28.5-32.9 [facility] Comment on above: Performed By: #### L 200.0010 ####ML [facility] [id number] [place] [address] 61020 MCHC Auto mass conc (RBC) 35.1 g/dL Normal 33.0-36.0 [facility] Comment on above: Performed By: #### L 200.0010 ####ML [facility] [id number] [place] [address] 64565 MCV Auto Entitic volume (RBC) 78.7 fL Low 80.0-99.0 [facility] Comment on above: Performed By: #### L 200.0010 ####ML [facility] [id number] [place] [address] 07233 Monocytes Auto #/vol (Bld) 0.40 x10(3) Normal 0.30-0.80 [facility] Comment on above: Performed By: #### L 200.0010 ####ML [facility] [id number] [place] [address] 62375 Monocytes/100 WBC Auto (Bld) 5.4 % Normal 4.3-11.2 [facility] Comment on above: Performed By: #### L 200.0010 ####ML [facility] [id number] [place] [address] 6[address]13 Neutrophils Auto #/vol (Bld) 5.70 x10(3) Normal 1.40-6.50 [facility] Comment on above: Performed By: #### L 200.0010 ####[address] [address] Neutrophils/100 WBC Auto (Bld) 86.5 % High 45.0-73.0 [facility] Comment on above: Performed By: #### L 200.0010 ####[address] [address] Platelet mean volume Auto Entitic volume (Bld) 8.1 fL Normal 7.5-9.5 [facility] Comment on above: Performed By: #### L 200.0010 ####[address] [address] Platelets Auto #/vol (Bld) 115 X10(3) Low 150-450 [facility] Comment on above: Performed By: #### L 200.0010 ####[address] [address] RBC Auto #/vol (Bld) 5.00 x10(6) Normal 3.30-5.00 [facility] Comment on above: Performed By: #### L 200.0010 ####ML [address] [address] WBC Auto #/vol (Bld) 6.6 x10(3) Normal 4.5-10.0 [facility] Comment on above: Performed By: #### L 200.0010 ####[address] [address] CHEST (TWO VIEWS) - CXRon CHEST (TWO VIEWS) - CXR [facility], [place] [address]Pekl: BERENICE NOLASCO KPhys: GRUPO BROUSSARD ODD JOB WORKERNadiaC (ED): 50 Age: 68 Sex: FAcct: [id number] Loc: EDExam Date: 08/05/18 Status: REG ERRadiology No.: [id number] Number: [id number] # Type/[id number] RAD / CHEST (TWO VIEWS) - CXRTwo-view chestClinical statement: Weakness. History of right mastectomyComparison study: NoneFindings:The heart size is normal. The left diaphragm is elevated. There is nopulmonary consolidation. No pneumothorax. Multilevel degenerative changes seenin the spine. Surgical clips identified in the right axilla.Impression:Elevated left diaphragm. No focal consolidationProfessional interpretation provided by [facility]60.Thank you for this referral.< >Reported By: XANDER MARTINEZ M.D.Signed In NovaPro By: XANDER MARTINEZ M.D. << Signature on File>> Reported By: XANDER MARTINEZ M.D. Signed By: XANDER MARTINEZ M.D.Tests performed at:[address] [phone] Normal [facility] CT BRAIN WITHOUT CONTRAST- C TBon 08-05-2018 CT BRAIN WITHOUT CONTRAST- CTB [address] [address]Jran: BERENICE NOLASCO KPhys: GRU[employer]OUSSARD ODD JOB WORKER-C (ED): 50 Age: 68 Sex: FAcct: [id number] Loc: EDExam Date: 08/05/18 Status: REG ERRadiology No.: [id number] Number: [id number] # Type/[id number] CT / CT BRAIN WITHOUT CONTRAST- CTBCT [...] algorithm.Professional interpretation provided by [facility] RAC-PC-60.Thank you for this referral.< >Reported By: XANDER MARTINEZ M.D.Signed In NovaPro By: XANDER MARTINEZ M.D. << Signature on File>> Reported By: XANDER MARTINEZ M.D. Signed By: XANDER MARTINEZ M.D.Tests performed at:[address] [phone] Normal [facility] ED PROV NOTEon 08-05-2018 Protein mass conc HNO ID: [id number] thor: Cas Estrada: (none)Author Type: PhysicianType: ED Provider NotesFiled: 08/13/2018 10:42 AMNote Text:[place], [place] [address]GVIIXS INFORMATION MANAGEMENTEMERGENCY DEPARTMENT REPORTPatient: BERENICE NOLASCO JOEL A M.D.[id number] FStatus: DEP ER EDDate of Service: 08/05/18CHIEF [...] are downgoing. There is no pronator drift. Vkinmztzmszj-gk-qbih, sfyg-bn-atig.EMERGENCY DEPARTMENT COURSESent for CT which was negative. [...] M.D. Signed By: CAS CANTU M.D.Tests performed at:[address] [phone] Normal [facility] EMERGENCY DEPARTMENT REPORTo n 08-05-2018 EMERGENCY DEPARTMENT REPORT [place], [place] [address]YWOJES INFORMATION MANAGEMENTEMERGENCY DEPARTMENT REPORTPatient: BERENICE NOLASCO JOEL A M.D.[id number][birth year] 68 FStatus: DEP ER EDDate of Service: [...] are downgoing. There is no pronatordrift. Normal ggeotl-wt-pnkq, dwbu-vx-ownv.EMERGENCY DEPARTMENT COURSESent for CT which was negative. [...] M.D. Signed By: CAS CANTU M.D.Tests performed at:[address] [phone] [facility] FLU A & Bon 08-05-2018 FLU A Negative Normal NEGATIVE [facility] Comment on above: Order Comment: What is the source+ SWAB Performed By: #### L 400.0006 ####[address] [address] FLU B Negative Normal NEGATIVE [facility] Comment on above: Order Comment: What is the source+ SWAB Result Comment: Infe ction due to Flu A and Flu B can not be ruled out. Flu Aand/or Flu B antigen in the sample may be below detectionlimit of the test. The gold standard for Flu A and Flu B vicente viral culture. Performed By: #### L 400.0006 ####[address] [address] LACTIC ACIDon 08-05-2018 Lactate molar conc 0.8 mmol/L Normal 0.5-2.0 [facility] Comment on above: Performed By: #### L 100.0440 ####ML - [id number] [place] [address] TROPONIN Ton 08-05-2018 Troponin T.cardiac mass conc ug/L Normal 0-0.010 [facility] Comment on above: Performed By: #### L 100.0010, L301.0120 ####ML - [id number] [place] [address] 77[address] UA W/C&Son 08-05-2018 Bilirubin Ql (U) Negative Normal NEGATIVE [facility] Comment on above: Order Comment: Urine Specimen Source+ CLEAN CATCH Performed By: #### L 200.3001 ####ML - [id number] [place] [address]1361 Color Nom (U) YELLOW Normal YELLOW [facility] Comment on above: Order Comment: Urine Specimen Source+ CLEAN CATCH Performed By: #### L 200.3001 ####ML - [id number] [place] [address] 71724 Glucose Ql (U) Negative Normal NEGATIVE [facility] Comment on above: Order Comment: Urine Specimen Source+ CLEAN CATCH Performed By: #### L 200.3001 ####ML - [id number] [place] [address] 23565 Hemoglobin Test strip Ql (U) Negative Normal NEGATIVE [facility] Comment on above: Order Comment: Urine Specimen Source+ CLEAN CATCH Performed By: #### L 200.3001 ####ML - [id number] [place] [address]35 Leukocyte esterase Test strip Ql (U) Negative Normal NEGATIVE [facility] Comment on above: Order Comment: Urine Specimen Source+ CLEAN CATCH Performed By: #### L 200.3001 ####ML - [id number] [place] [address] Nitrite Test strip Ql (U) Negative Normal NEGATIVE [facility] Comment on above: Order Comment: Urine Specimen Source+ CLEAN CATCH Performed By: #### L 200.3001 ####ML - [id number] [place] [address] 17941 pH Test strip (U) 6.0 [pH] Normal 5.0-8.0 [facility] Comment on above: Order Comment: Urine Specimen Source+ CLEAN CATCH Performed By: #### L 200.3001 ####ML - [facility] [id number] [place] [address] Protein Test strip Ql (U) Negative Normal NEGATIVE [facility] Comment on above: Order Comment: Urine Specimen Source+ CLEAN CATCH Performed By: #### L 200.3001 ####ML - [facility] [id number] [place] [address] URINE APPEARANC CLEAR Normal CLEAR [facility] Comment on above: Order Comment: Urine Specimen Source+ CLEAN CATCH Performed By: #### L 200.3001 ####ML - [facility] TRAHYIEIVT[address] [place] [address] URINE KETONE Negative Normal NEGATIVE [facility] Comment on above: Order Comment: Urine Specimen Source+ CLEAN CATCH Performed By: #### L 200.3001 ####ML - [facility] [id number] [place] [address] URINE SPECIFIC <=1.005 Normal 1.001-1.035 [facility] Comment on above: Order Comment: Urine Specimen Source+ CLEAN CATCH Performed By: #### L 200.3001 ####ML - [facility] [id number] [place] [address] URINE UROBILINO 0.2 EU/DL Normal 0.2-1.0 [facility] Comment on above: Order Comment: Urine Specimen Source+ CLEAN CATCH Performed By: #### L 200.3001 ####ML - [facility] [id number] [place] [address] Coding Summary.on 07-28-2017 Coding Summary. CODING DATE: 017 FINAL [facility] STATUS: PAYOR: Medicare ADMIT DX: REASON [...] Viv Good Date Saved: 07/28/2017 10:55 am [facility] Vital Signs Date Time Vital Sign Value Performing Clinician Facility 07-11-2024 14:08-0400 Body height 167.6 cm Debbi Almazanpatrick ODD JOB WORKER Work Phone: [facility] 07-11-2024 14:08-0400 Body mass index (BMI) [Ratio] 31.64 kg/m2 Debbi Alicia ODD JOB WORKER Work Phone: [facility] 07-11-2024 14:08-0400 Body temperature 96.01 [degF] Debbi Alicia ODD JOB WORKER Work Phone: [facility] 07-11-2024 14:08-0400 Body weight 88.91 kg Debbi Alicia ODD JOB WORKER Work Phone: [facility] 07-11-2024 14:08-0400 Diastolic blood pressure 78 mm[Hg] Debbi Alicia ODD JOB WORKER Work Phone: [facility] 07-11-2024 14:08-0400 Heart rate 127 /min Debbi Alicia ODD JOB WORKER Work Phone: [facility] 07-11-2024 14:08-0400 Respiratory rate 16 /min Debbi Alicia ODD JOB WORKER Work Phone: [facility] 07-11-2024 14:08-0400 SaO2% (BldA) [Mass fraction] 94 % Debbi Alicia ODD JOB WORKER Work Phone: [facility] 07-11-2024 14:08-0400 Systolic blood pressure 142 mm[Hg] Debbi Alicia ODD JOB WORKER Work Phone: [facility] 05-08-2024 13:13-0400 Body height 167.64 cm [facility] 05-08-2024 13:13-0400 Body mass index (BMI) [Ratio] 32.1 kg/m2 [facility] 05-08-2024 13:13-0400 Body weight 90.34 kg [facility] 05-08-2024 13:13-0400 Diastolic blood pressure 77 mm[Hg] [facility] 05-08-2024 13:13-0400 Heart rate 77 /min [facility] 05-08-2024 13:13-0400 Respiratory rate 16 /min [facility] 05-08-2024 13:13-0400 SaO2% (BldA) [Mass fraction] 100 % [facility] 05-08-2024 13:13-0400 Systolic blood pressure 133 mm[Hg] [facility] 01-31-2024 13:17-0400 Body height 167.64 cm [facility] 01-31-2024 13:17-0400 Body mass index (BMI) [Ratio] 32.3 kg/m2 [facility] 01-31-2024 13:17-0400 Body weight 90.77 kg [facility] 01-31-2024 13:17-0400 Diastolic blood pressure 77 mm[Hg] [facility] 01-31-2024 13:17-0400 Heart rate 75 /min [facility] 01-31-2024 13:17-0400 Respiratory rate 16 /min [facility] 01-31-2024 13:17-0400 SaO2% (BldA) [Mass fraction] 92 % [facility] 01-31-2024 13:17-0400 Systolic blood pressure 115 mm[Hg] [facility] 01-21-2024 14:06-0400 Body temperature 96.9 [degF] Dr. Shaikh Villagran Work Phone: [facility] 01-21-2024 14:06-0400 Diastolic blood pressure 79 mm[Hg] Dr. Shaikh Villagran Work Phone: [facility] 01-21-2024 14:06-0400 Heart rate 82 /min Dr. Shaikh Villagran Work Phone: [facility] 01-21-2024 14:06-0400 Respiratory rate 16 /min Dr. Shaikh Villagran Work Phone: [facility] 01-21-2024 14:06-0400 SaO2% (BldA) [Mass fraction] 94 % Dr. Shaikh Villagran Work Phone: [facility] 01-21-2024 14:06-0400 Systolic blood pressure 125 mm[Hg] Dr. Shaikh Villagran Work Phone: [facility] 01-21-2024 11:45-0400 Inhaled oxygen flow rate 2 L/min Dr. Shaikh Villagran Work Phone: [facility] 01-21-2024 06:23-0400 Body height 167.[address] Shaikh Villagran Work Phone: [facility] 01-21-2024 06:23-0400 Body mass index (BMI) [Ratio] 32.5 kg/m2 Dr. Shaikh Villagran Work Phone: [facility] 01-21-2024 06:23-0400 Body weight 91.[address] Shaikh Villagran Work Phone: [facility] 01-05-2024 14:51-0400 Body height 167.[address] Shaikh Villagran Work Phone: [facility] 01-05-2024 14:51-0400 Body mass index (BMI) [Ratio] 31.8 kg/m2 Dr. Shaikh Villagran Work Phone: [facility] 01-05-2024 14:51-0400 Body temperature 98.1 [degF] Dr. Shaikh Villagran Work Phone: [facility] 01-05-2024 14:51-0400 Body weight 89.[address] Shaikh Villagran Work Phone: [facility] 01-05-2024 14:51-0400 Diastolic blood pressure 84 mm[Hg] Dr. Shaikh Villagran Work Phone: [facility] 01-05-2024 14:51-0400 Heart rate 71 /min Dr. Shaikh Villagran Work Phone: [facility] 01-05-2024 14:51-0400 Respiratory rate 16 /min Dr. Shaikh Villagran Work Phone: [facility] 01-05-2024 14:51-0400 SaO2% (BldA) [Mass fraction] 93 % Dr. Shaikh Villagran Work Phone: [facility] 01-05-2024 14:51-0400 Systolic blood pressure 124 mm[Hg] Dr. Shaikh Villagran Work Phone: [facility] 12-22-2023 14:33-0400 Body height 167.[address] Apolinar Henry Work Phone: [facility] 12-22-2023 14:33-0400 Body mass index (BMI) [Ratio] 32.6 kg/m2 Dr. Apolinar Henry Work Phone: [facility] 12-22-2023 14:33-0400 Body temperature 98.8 [degF] Dr. Apolinar Henry Work Phone: [facility] 12-22-2023 14:33-0400 Body weight 91.[address] Apolinar Henry Work Phone: [facility] 12-22-2023 14:33-0400 Diastolic blood pressure 76 mm[Hg] Dr. Apolinar Henry Work Phone: [facility] 12-22-2023 14:33-0400 Heart rate 71 /min Dr. Apolinar Henry Work Phone: [facility] 12-22-2023 14:33-0400 Respiratory rate 16 /min Dr. Apolinar Henry Work Phone: [facility] 12-22-2023 14:33-0400 SaO2% (BldA) [Mass fraction] 92 % Dr. Apolinar Henry Work Phone: [facility] 12-22-2023 14:33-0400 Systolic blood pressure 129 mm[Hg] Dr. Apolinar Henry Work Phone: [facility] 12-14-2023 15:53-0400 Body height 167.[address] Apolinar Henry Work Phone: [facility] 12-14-2023 15:53-0400 Body mass index (BMI) [Ratio] 32.3 kg/m2 Dr. Apolinar Henry Work Phone: [facility] 12-14-2023 15:53-0400 Body temperature 97.9 [degF] Dr. Apolinar Henry Work Phone: [facility] 12-14-2023 15:53-0400 Body weight 90.[address] Apolinar Henry Work Phone: [facility] 12-14-2023 15:53-0400 Diastolic blood pressure 83 mm[Hg] Dr. Apolinar Henry Work Phone: [facility] 12-14-2023 15:53-0400 Heart rate 70 /min Dr. Apolinar Henry Work Phone: [facility] 12-14-2023 15:53-0400 Respiratory rate 16 /min Dr. Apolinar Henry Work Phone: [facility] 12-14-2023 15:53-0400 SaO2% (BldA) [Mass fraction] 95 % Dr. Apolinar Henry Work Phone: [facility] 12-14-2023 15:53-0400 Systolic blood pressure 128 mm[Hg] Dr. Apolinar Henry Work Phone: [facility] 12-09-2023 15:16-0400 Body height 167.64 cm [facility] 12-09-2023 15:16-0400 Body mass index (BMI) [Ratio] 32.4 kg/m2 [facility] 12-09-2023 15:16-0400 Body weight 91.18 kg [facility] 11-01-2023 12:53-0500 Body height 167.64 cm MD Shaikh Villagran Work Phone: [facility] 11-01-2023 12:53-0500 Body mass index (BMI) [Ratio] 32.9 kg/m2 MD Shaikh Villagran Work Phone: [facility] 11-01-2023 12:53-0500 Body weight 92.58 kg MD Shaikh Villagran Work Phone: [facility] 11-01-2023 12:53-0500 Diastolic blood pressure 86 mm[Hg] MD Shaikh Villagran Work Phone: [facility] 11-01-2023 12:53-0500 Heart rate 71 /min MD Shaikh Villagran Work Phone: [facility] 11-01-2023 12:53-0500 Respiratory rate 18 /min MD Shaikh Villagran Work Phone: [facility] 11-01-2023 12:53-0500 SaO2% (BldA) [Mass fraction] 95 % MD Shaikh Villagran Work Phone: [facility] 11-01-2023 12:53-0500 Systolic blood pressure 127 mm[Hg] MD Shaikh Villagran Work Phone: [facility] 08-30-2023 10:00-0500 Body height 167.64 cm MD Shaikh Villagran Work Phone: [facility] 08-30-2023 10:00-0500 Body weight 91.98 kg MD Shaikh Villagran Work Phone: [facility] 08-30-2023 10:00-0500 Diastolic blood pressure 87 mm[Hg] MD Shaikh Villagran Work Phone: [facility] 08-30-2023 10:00-0500 Systolic blood pressure 134 mm[Hg] MD Shaikh Villagran Work Phone: [facility] 07-21-2023 13:00-0500 Body height 167.64 cm Adriana Fitt Other [employer] Other 07-21-2023 13:00-0500 Body mass index (BMI) [Ratio] 33.52 kg/m2 Adriana Fitt Other [employer] Other 07-21-2023 13:00-0500 Body weight 94.21 kg Adriana Fitt Other [employer] Other 07-05-2023 14:15-0400 Body height 167.64 cm Susanne Missler Other [employer] Other 07-05-2023 14:15-0400 Body mass index (BMI) [Ratio] 33.62 kg/m2 Susanne Missler Other [employer] Other 07-05-2023 14:15-0400 Body weight 94.48 kg Susanne Missler Other [employer] Other 07-05-2023 14:15-0400 Diastolic blood pressure 87 mm[Hg] Susanne Missler Other [employer] Other 07-05-2023 14:15-0400 Respiratory rate 18 /min Susanne Missler Other [employer] Other 07-05-2023 14:15-0400 SaO2% (BldA) [Mass fraction] 93 % Susanne Jordan Other [employer] Other 07-05-2023 14:15-0400 Systolic blood pressure 133 mm[Hg] Susanne Jordan Other [employer] Other 06-30-2023 15:08-0400 Body height 167.[address] Apolinar Henry Work Phone: [facility] 06-30-2023 15:08-0400 Body mass index (BMI) [Ratio] 33.5 kg/m2 Dr. Apolinar Henry Work Phone: [facility] 06-30-2023 15:08-0400 Body temperature 97.3 [degF] Dr. Apolinar Henry Work Phone: [facility] 06-30-2023 15:08-0400 Body weight 94.[address] Apolinar Henry Work Phone: [facility] 06-30-2023 15:08-0400 Diastolic blood pressure 81 mm[Hg] Dr. Apolinar Henry Work Phone: [facility] 06-30-2023 15:08-0400 Heart rate 65 /min Dr. Apolinar Henry Work Phone: [facility] 06-30-2023 15:08-0400 Respiratory rate 16 /min Dr. Apolinar Henry Work Phone: [facility] 06-30-2023 15:08-0400 SaO2% (BldA) [Mass fraction] 94 % Dr. Apolinar Henry Work Phone: [facility] 06-30-2023 15:08-0400 Systolic blood pressure 135 mm[Hg] Dr. Apolinar Henry Work Phone: [facility] 05-27-2023 10:00-0400 Body height 167.64 cm Adriana Fitt Other [employer] Other 05-27-2023 10:00-0400 Body mass index (BMI) [Ratio] 34.65 kg/m2 Adriana Fitt Other [employer] Other 05-27-2023 10:00-0400 Body weight 97.39 kg Adriana Fitt Other [employer] Other 05-05-2023 14:25-0400 Body height 167.[address] Apolinar Henry Work Phone: [facility] 05-05-2023 14:25-0400 Body mass index (BMI) [Ratio] 35 kg/m2 Dr. Apolinar Henry Work Phone: [facility] 05-05-2023 14:25-0400 Body temperature 97.7 [degF] Dr. Apolinar Henry Work Phone: [facility] 05-05-2023 14:25-0400 Body weight 98.[address] Apolinar Henry Work Phone: [facility] 05-05-2023 14:25-0400 Diastolic blood pressure 78 mm[Hg] Dr. Apolinar Henry Work Phone: [facility] 05-05-2023 14:25-0400 Heart rate 70 /min Dr. Apolinar Henry Work Phone: [facility] 05-05-2023 14:25-0400 Respiratory rate 16 /min Dr. Apolinar Henry Work Phone: [facility] 05-05-2023 14:25-0400 SaO2% (BldA) [Mass fraction] 96 % Dr. Apolinar Henry Work Phone: [facility] 05-05-2023 14:25-0400 Systolic blood pressure 120 mm[Hg] Dr. Apolinar Henry Work Phone: [facility] 03-15-2023 12:45-0400 Body height 167.64 cm Susanne Missler Other [employer] Other 03-15-2023 12:45-0400 Body mass index (BMI) [Ratio] 36.42 kg/m2 Susanne Missler Other [employer] Other 03-15-2023 12:45-0400 Body weight 102.38 kg Susanne Missler Other [employer] Other 03-15-2023 12:45-0400 Diastolic blood pressure 84 mm[Hg] Susanne Missler Other [employer] Other 03-15-2023 12:45-0400 Respiratory rate 18 /min Susanne Missler Other [employer] Other 03-15-2023 12:45-0400 SaO2% (BldA) [Mass fraction] 96 % Susanne Missler Other [employer] Other 03-15-2023 12:45-0400 Systolic blood pressure 131 mm[Hg] Susanne Missler Other [employer] Other 11-18-2022 14:58-0500 Body height 167.6 cm Apolinar Henry MD Work Phone: [facility] 11-18-2022 14:58-0500 Body temperature 97 [degF] Apolinar Henry MD Work Phone: [facility] 11-18-2022 14:58-0500 Diastolic blood pressure 83 mm[Hg] Apolinar Henry MD Work Phone: 1(661)089-565467 [place] [address] 11-18-2022 14:58-0500 Heart rate 78 /min Apolinar Henry MD Work Phone: 4(969)397-233867 [place] [address] 11-18-2022 14:58-0500 Systolic blood pressure 143 mm[Hg] Apolinar Henry MD Work Phone: 9(709)709-969667 [place] [address] 10-21-2022 13:46-0500 Body height 167.6 cm Apolinar Henry MD Work Phone: 2(984)569-834567 [place] [address] 10-21-2022 13:46-0500 Body temperature 97.3 [degF] Apolinar Henry MD Work Phone: 2(529)719-733967 [place] [address] 10-21-2022 13:46-0500 Diastolic blood pressure 86 mm[Hg] Apolinar Henry MD Work Phone: 1(978)976-945767 [place] [address] 10-21-2022 13:46-0500 Heart rate 76 /min Apolinar Henry MD Work Phone: 8(780)693-590467 [place] [address] 10-21-2022 13:46-0500 Systolic blood pressure 142 mm[Hg] Apolinar Henry MD Work Phone: 8(768)543-131067 [place] [address] 10-07-2022 14:27-0500 Body height 167.6 cm Apolinar Henry MD Work Phone: 9(775)574-112667 [place] [address] 10-07-2022 14:27-0500 Body temperature 97.9 [degF] Apolinar Henry MD Work Phone: 5(344)955-247367 [place] [address] 10-07-2022 14:27-0500 Diastolic blood pressure 81 mm[Hg] Apolinar Henry MD Work Phone: 0(572)788-431767 [place] [address] 10-07-2022 14:27-0500 Heart rate 74 /min Apolinar Henry MD Work Phone: 8(022)353-003467 [place] [address] 10-07-2022 14:27-0500 Systolic blood pressure 140 mm[Hg] Apolinar Henry MD Work Phone: 7(043)372-268867 [place] [address] 09-23-2022 14:36-0500 Body height 167.6 cm Apolinar Henry MD Work Phone: 4(454)916-885467 [place] [address] 09-23-2022 14:36-0500 Body mass index (BMI) [Ratio] 35.83 kg/m2 Apolinar Henry MD Work Phone: 4(040)587-286567 [place] [address] 09-23-2022 14:36-0500 Body temperature 97.3 [degF] Apolinar Henry MD Work Phone: 0(922)281-432167 [place] [address] 09-23-2022 14:36-0500 Body weight 100.7 kg Apolinar Henry MD Work Phone: 7(698)707-370767 [place] [address] 09-23-2022 14:36-0500 Diastolic blood pressure 97 mm[Hg] Apolinar Henry MD Work Phone: 0(591)248-143767 [place] [address] 09-23-2022 14:36-0500 Heart rate 82 /min pAolinar Henry MD Work Phone: 9(820)385-467367 [place] [address] 09-23-2022 14:36-0500 Systolic blood pressure 152 mm[Hg] Apolinar Henry MD Work Phone: 0(544)331-452367 [place] [address] 08-12-2022 15:03-0500 Body height 167.6 cm Apolinar Henry MD Work Phone: 8(901)779-172167 [place] [address] 08-12-2022 15:03-0500 Body mass index (BMI) [Ratio] 35.83 kg/m2 Apolinar Henry MD Work Phone: 2(905)460-020067 [place] [address] 08-12-2022 15:03-0500 Body temperature 96.69 [degF] Apolinar Henry MD Work Phone: 8(501)821-826467 [place] [address] 08-12-2022 15:03-0500 Body weight 100.7 kg Apolinar Henry MD Work Phone: 2(902)787-686267 [place] [address] 08-05-2022 14:20-0500 Body height 167.6 cm Apolinar Henry MD Work Phone: 5(134)420-958167 [place] [address] 08-05-2022 14:20-0500 Body mass index (BMI) [Ratio] 35.83 kg/m2 Apolinar Henry MD Work Phone: 9(258)328-725367 [place] [address] 08-05-2022 14:20-0500 Body temperature 97.2 [degF] Apolinar Henry MD Work Phone: 7(804)336-449867 [place] [address] 08-05-2022 14:20-0500 Body weight 100.7 kg Apolinar Henry MD Work Phone: 7(439)732-149667 [place] [address] 08-05-2022 14:20-0500 Diastolic blood pressure 90 mm[Hg] Apolinar Henry MD Work Phone: 4(742)751-636267 [place] [address] 08-05-2022 14:20-0500 Heart rate 75 /min Apolinar Henry MD Work Phone: 5(719)928-180667 [place] [address] 08-05-2022 14:20-0500 Systolic blood pressure 156 mm[Hg] Apolinar Henry MD Work Phone: 7(271)283-685367 [place] [address] 07-22-2022 13:23-0500 Body height 167.6 cm Apolinar Henry MD Work Phone: 0(316)389-844367 [place] [address] 07-22-2022 13:23-0500 Body mass index (BMI) [Ratio] 35.83 kg/m2 Apolinar Henry MD Work Phone: 4(957)675-115167 [place] [address] 07-22-2022 13:23-0500 Body temperature 97.81 [degF] Apolinar Henry MD Work Phone: 0(778)645-988667 [place] [address] 07-22-2022 13:23-0500 Body weight 100.7 kg Apolinar Henry MD Work Phone: 0(759)961-778767 [place] [address] 07-22-2022 13:23-0500 Diastolic blood pressure 80 mm[Hg] Apolinar Henry MD Work Phone: 6(501)888-225767 [place] [address] 07-22-2022 13:23-0500 Heart rate 69 /min Apolinar Henry MD Work Phone: 3(015)364-790667 [place] [address] 07-22-2022 13:23-0500 Systolic blood pressure 133 mm[Hg] Apolinar Henry MD Work Phone: 9(105)437-609267 [place] [address] 07-15-2022 13:33-0400 Body height 167.6 cm Apolinar Henry MD Work Phone: 0(217)891-968267 [place] [address] 07-15-2022 13:33-0400 Body mass index (BMI) [Ratio] 35.83 kg/m2 Apolinar Henry MD Work Phone: 6(996)061-583467 [place] [address] 07-15-2022 13:33-0400 Body temperature 97.9 [degF] Apolinar Henry MD Work Phone: 7(305)212-054367 [place] [address] 07-15-2022 13:33-0400 Body weight 100.7 kg Apolinar Henry MD Work Phone: 4(280)438-866467 [place] [address] 07-15-2022 13:33-0400 Diastolic blood pressure 83 mm[Hg] Apolinar Henry MD Work Phone: 7(521)742-659767 [place] [address] 07-15-2022 13:33-0400 Heart rate 75 /min Apolinar Henry MD Work Phone: 7(432)575-647167 [place] [address] 07-15-2022 13:33-0400 Systolic blood pressure 140 mm[Hg] Apolinar Henry MD Work Phone: 3(862)047-787467 [place] [address] 07-09-2022 16:55-0400 Diastolic blood pressure 79 mm[Hg] Apolinar Henry MD Work Phone: 4(687)575-352767 [place] [address] 07-09-2022 16:55-0400 Heart rate 87 /min Apolinar Henry MD Work Phone: 9(230)259-783067 [place] [address] 07-09-2022 16:55-0400 Respiratory rate 18 /min Apolinar Henry MD Work Phone: 6(831)295-455267 [place] [address] 07-09-2022 16:55-0400 SaO2% (BldA) [Mass fraction] 97 % Apolinar Henry MD Work Phone: 1(712)690-869867 [place] [address] 07-09-2022 16:55-0400 Systolic blood pressure 149 mm[Hg] Apolinar Henry MD Work Phone: 4(826)203-970667 [place] [address] 07-09-2022 15:05-0400 Body temperature 97.3 [degF] Apolinar Henry MD Work Phone: 0(819)084-055667 [place] [address] 07-09-2022 08:58-0400 Body height 167.6 cm Apolinar Henry MD Work Phone: 0(632)356-038567 [place] [address] 07-09-2022 08:58-0400 Body mass index (BMI) [Ratio] 35.83 kg/m2 Apolinar Henry MD Work Phone: 9(729)293-329367 [place] [address] 07-09-2022 08:58-0400 Body weight 100.7 kg Apolinar Henry MD Work Phone: 7(010)660-112667 [place] [address] 06-30-2022 14:44-0400 Body height 167.6 cm Apolinar Henry MD Work Phone: 7(807)055-104167 [place] [address] 06-30-2022 14:44-0400 Body mass index (BMI) [Ratio] 35.83 kg/m2 Apolinar Henry MD Work Phone: 4(823)792-795067 [place] [address] 06-30-2022 14:44-0400 Body temperature 97.7 [degF] Apolinar Henry MD Work Phone: 2(121)071-279967 [place] [address] 06-30-2022 14:44-0400 Body weight 100.7 kg Apolinar Henry MD Work Phone: 6(917)675-750467 [place] [address] 06-30-2022 14:44-0400 Diastolic blood pressure 97 mm[Hg] Apolinar Henry MD Work Phone: 5(645)447-086112 [place] [address] 06-30-2022 14:44-0400 Heart rate 119 /min Apolinar Henry MD Work Phone: 1(964)113-840467 [place] [address] 06-30-2022 14:44-0400 Systolic blood pressure 148 mm[Hg] Apolinar Henry MD Work Phone: 5(003)691-966367 [place] [address] 06-16-2022 11:36-0400 Body height 167.6 cm Apolinar Henry MD Work Phone: 7(406)603-990667 [place] [address] 06-16-2022 11:36-0400 Body mass index (BMI) [Ratio] 35.99 kg/m2 Apolinra Henry MD Work Phone: 9(799)579-583867 [place] [address] 06-16-2022 11:36-0400 Body temperature 97.5 [degF] Apolinar Henry MD Work Phone: 3(104)329-443467 [place] [address] 06-16-2022 11:36-0400 Body weight 101.15 kg Apolinar Henry MD Work Phone: 3(993)780-857267 [place] [address] 06-16-2022 11:36-0400 Diastolic blood pressure 89 mm[Hg] Apolinar Henry MD Work Phone: 3(411)282-863267 [place] [address] 06-16-2022 11:36-0400 Heart rate 76 /min Apolinar Henry MD Work Phone: 1(378)438-836067 [place] [address] 06-16-2022 11:36-0400 Systolic blood pressure 148 mm[Hg] Apolinar Henry MD Work Phone: 4(323)441-208967 [place] [address] 05-20-2022 13:46-0400 Body temperature 98.01 [degF] Apolinar Henry MD Work Phone: 7(681)273-367167 [place] [address] 05-20-2022 13:46-0400 Body weight 100.7 kg Apolinar Henry MD Work Phone: 7(719)437-006167 [place] [address] 05-20-2022 13:46-0400 Diastolic blood pressure 95 mm[Hg] Apolinar Henry MD Work Phone: [facility] 05-20-2022 13:46-0400 Heart rate 80 /min Apolinar Henry MD Work Phone: [facility] 05-20-2022 13:46-0400 Systolic blood pressure 150 mm[Hg] Apolinar Henry MD Work Phone: [facility] Encounters Encounter Date Encounter Type Care Provider Facility Start: 09-22-2024 ambulatory Shaikh Tyshawn Facility: [facility] Start: 08-24-2024 End: 08-24-2024 ambulatory Shaikh Kerry Villagran MD Facility:[facility] Start: 07-26-2024 End: 07-26-2024 ambulatory Shaikh Tyshawn Facility:[facility] Start: 07-11-2024 End: 07-11-2024 Office outpatient visit 15 minutes Debbi Alicia [employer] Work Phone: [facility] Comment on above: CPAP (continuous pos itive airway pressure) dependence (Primary Dx); Gastroesophageal reflux disease without esophagitis; Hypothyroidism, unspecified type (CMS/HCC); Recurrent major depressive disorder, in full remission (CMS/HCC); Mixed hyperlipidemia (CMS/HCC); NARA (obstructive sleep apnea); Left hip pain; Screening for colon cancer Start: 07-11-2024 End: 07-11-2024 Bamboo flowsheet Debbi Alicia [employer] WORK[employer] Work Phone: [facility] Start: 07-11-2024 End: 07-11-2024 Bamboo flowsheet Debbi Alicia [employer] WORK[employer] Work Phone: [facility] Start: 07-11-2024 End: 07-11-2024 ambulatory DEBBI ALICIA Not Available Start: 06-26-2024 ambulatory [facility] Start: 06-19-2024 End: 06-19-2024 ambulatory Shaikh Kerry Villagran MD Facility:[facility] Start: 05-17-2024 End: 05-17-2024 ambulatory CECILE COLLINS Not Available Start: 05-08-2024 End: 05-08-2024 ambulatory [facility] Work Phone: Start: 05-08-2024 End: 05-08-2024 Patient encounter procedure [facility] Work Phone: Start: 04-12-2024 End: 04-12-2024 [facility] Start: 04-11-2024 End: 04-11-2024 ambulatory FREED TYSHAWN Not Available Start: 03-22-2024 End: 03-22-2024 ambulatory Freed Jean-Pierred Facility:[facility] Start: 03-02-2024 End: 03-02-2024 ambulatory [facility] Romi [facility] Start: 03-01-2024 End: 03-01-2024 ambulatory Apolinar Ghazoul Facility:[facility] Start: 02-16-2024 End: 02-16-2024 ambulatory Apolinar Ghazoul Facility:[facility] Start: 02-02-2024 End: 02-02-2024 ambulatory Apolinar Ghazoul Facility:[facility] Start: 01-31-2024 End: 01-31-2024 ambulatory [facility] Work Phone: Start: 01-31-2024 End: 01-31-2024 Patient encounter procedure [facility] Work Phone: Start: 01-26-2024 End: 01-26-2024 ambulatory Freed Heriwad Facility:[facility] Start: 01-21-2024 ambulatory Shaikh Jean-Pierred Facility: [facility] Start: 01-21-2024 Non-patient / Non-visit Dr. Phil Villagran Work Phone: [facility] Start: 01-21-2024 End: 01-21-2024 Admission to same day surgery center Dr. Shaikh Villagran Work Phone: [facility] Start: 01-21-2024 End: 01-21-[address] Shaikh Villagran Work Phone: [facility] Work Phone: Start: 01-06-2024 End: 01-06-2024 ambulatory SHAIKH TYSHAWN Not Available Start: 01-05-2024 End: 01-05-[address] Shaikh Villagran Work Phone: [facility] Work Phone: Start: 01-05-2024 End: 01-05-[address] Shaikh Villagran Work Phone: [facility] Work Phone: Start: 12-22-2023 End: 12-22-[address] Apolinar Henry Work Phone: [facility] Work Phone: Start: 12-22-2023 End: 12-22-2023 ambulatory Apolin[facility] Work Phone: Start: 12-14-2023 End: 12-14-[address] Apolinar Henry Work Phone: [facility] Work Phone: Start: 12-14-2023 End: 12-14-2023 [facility] Start: 12-09-2023 End: 12-09-2023 ambulatory [facility] Work Phone: Start: 12-09-2023 End: 12-09-2023 Patient encounter procedure [facility] Work Phone: Start: 11-29-2023 End: 11-29-2023 ambulatory SHAIKH TYSHAWN Not Available Start: 11-29-2023 Preoperative state Debbi mark [employer] WORKER Work Phone: [facility] Start: 11-25-2023 Telephone encounter [facility] Comment on above: Results Start: 11-18-2023 End: 11-18-2023 ambulatory [facility] Start: 11-18-2023 End: 11-18-2023 ambulatory [facility] Start: 11-15-2023 End: 11-15-2023 ambulatory Shaikh Kerry Villagran MD Facility:[facility] Start: 11-01-2023 End: 11-01-2023 ambulatory MD Shaikh Villagran Work Phone: [facility] Work Phone: Start: 11-01-2023 End: 11-01-2023 Patient encounter procedure MD Shaikh Villagran Work Phone: [facility] Work Phone: Start: 10-11-2023 End: 10-11-2023 ambulatory Shaikh Kerry Villagran MD Facility:[facility] Start: 09-15-2023 End: 09-15-2023 ambulatory Shaikh Kerry Villagran MD Facility:[facility] Start: 09-01-2023 End: 09-01-2023 ambulatory Shaikh Kerry Villagran MD Facility:[facility] Start: 08-30-2023 Registered Recurring MD Shaikh Villagran Work Phone: [facility] Work Phone: Start: 08-30-2023 End: 08-30-2023 ambulatory Shaikh Tyshawn Facility:[facility] Start: 08-30-2023 End: 08-30-2023 Patient encounter procedure MD Shaikh Villagran Work Phone: [facility] Work Phone: Start: 07-21-2023 ([facility] RD FU) [facility] 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 Apolinar Henry Work Phone: [facility] Work Phone: Start: 06-30-2023 End: 06-30-[address] 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 Apolinar Henry Work Phone: [facility] Work Phone: Start: 05-05-2023 End: 05-05-[address] Apolinar Henry Work Phone: [facility] Work Phone: Start: 04-12-2023 End: 04-12-2023 ambulatory Susanne Jordan Other [employer] Other Start: 04-12-2023 Telephone encounter Susanne Jordan [facility] Start: 03-15-2023 ([facility]/U) [facility] Start: 03-15-2023 End: 03-15-2023 ambulatory Susanne Jordan Other [employer] Other Start: 01-01-[address] ADAM SCHWARTZ Facilit y:[facility] Start: 12-16-2022 End: 12-17-[address] ADAM SCHWARTZ Facility:[facility] Start: 11-18-2022 ambulatory SHAIKH KERRY [facility] Start: 11-18-2022 End: 11-18-2022 Office outpatient visit 25 minutes Apolinar Henry MD Work Phone: [facility] Comment on above: 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); S/P breast reconstruction Start: 10-21-2022 ambulatory SHAIKH KERRY [facility] Start: 10-21-2022 End: 10-21-2022 Office outpatient visit 25 minutes Apolinar Henry MD Work Phone: [facility] Comment on above: 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); S/P breast reconstruction Start: 10-07-2022 ambulatory SHAIKH KERRY [facility] Start: 10-07-2022 End: 10-07-2022 Postop follow up visit related to original px Apolinar Henry MD Work Phone: [facility] Comment on above: 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); S/P breast reconstruction Start: 09-23-2022 ambulatory SHAIKH KERRY [facility] Start: 09-23-2022 End: 09-23-2022 Postop follow up visit related to original px Apolinar Henry MD Work Phone: [facility] Comment on above: 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); S/P breast reconstruction Start: 09-16-2022 End: 09-17-2022 ambulatory Tc TYSHAWN Facility:[facility] Start: 09-16-2022 End: 09-17-[address] TY BOUDREAUX Facility:[facility] Start: 09-15-2022 [facility] Start: 09-15-2022 End: 09-15-2022 Subsequent hospital visit by physician Apolinar Henry MD Work Phone: [facility] Comment on above: Arrived Start: 08-26-2022 ambulatory SHAIKH KERRY [facility] Start: 08-12-2022 [facility] SHAIKH KERRY [facility] Start: 08-12-2022 End: 08-12-2022 Postop follow up visit related to original px Apolinar Henry MD Work Phone: [facility] Comment on above: S/P breast reconstru ction (Primary Dx); Personal history of malignant neoplasm of breast; Acquired absence of right breast and nipple Start: 08-05-2022 [facility] SHAIKH KERRY [facility] Start: 08-05-2022 End: 08-05-2022 Postop follow up visit related to original px Apolinar Henry MD Work Phone: [facility] Comment on above: S/P breast reconstru ction (Primary Dx) Start: 07-22-2022 [facility] Start: 07-22-2022 End: 07-22-2022 Postop follow up visit related to original px Apolinar Henry MD Work Phone: [facility] Comment on above: 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); S/P breast reconstruction Start: 07-15-2022 [facility] SHAIKH KERRY [facility] Start: 07-15-2022 End: 07-15-2022 Postop follow up visit related to original px Apolinar Henry MD Work Phone: [facility] Comment on above: 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); Personal history of malignant neoplasm of breast; S/P breast reconstruction Start: 07-09-2022 End: 07-09-2022 ambulatory [facility] KERRY [facility] Start: 07-09-2022 End: 07-09-2022 Subsequent hospital visit by physician Apolinar Henry MD Work Phone: [facility] Comment on above: Personal history of malignant neoplasm of breast Start: 06-30-2022 [facility] Start: 06-30-2022 End: 06-30-2022 Office outpatient visit 40 minutes Apolinar Henry MD Work Phone: [facility] Comment on above: S/P breast reconstru ction (Primary Dx); Acquired absence of right breast and nipple; Personal history of malignant neoplasm of breast Start: 06-25-2022 Encounter for other preprocedural examination [facility] Tc PRABHAKARMANuno [facility] Start: 06-23-2022 [facility] Start: 06-22-2022 End: 06-23-2022 ambulatory FREED H TYSHAWN Facility:[facility] Start: 06-22-2022 End: 06-23-2022 Encounter for other preprocedural examination FREED Tc VILLAGRAN Facility:[facility] Start: 06-16-2022 ambulatory [facility] Start: 06-16-2022 Encounter for other preprocedural examination [facility] Start: 06-16-2022 [facility] Start: 06-16-2022 End: 06-16-2022 Office outpatient visit 25 minutes Apolinar Henry MD Work Phone: [facility] Comment on above: Personal history of malignant neoplasm of breast (Primary Dx); Acquired absence of right breast and nipple Start: 05-21-2022 End: 06-20-2022 ambulatory SHAIKH KERRY VILLAGRAN [facility] Start: 05-20-2022 ambulatory FREED KERRY [facility]ILLAGRAN [facility] Start: 05-20-2022 End: 05-20-2022 Office outpatient new 60 minutes Apolinar Henry MD Work Phone: [facility] Comment on above: Personal history of malignant neoplasm of breast (Primary Dx); Acquired absence of right breast and nipple Start: 03-24-2022 End: 03-25-2022 ambulatory SHAIKH Tc TYSHAWN Facility: Start: 03-02-2022 End: 03-02-2022 ambulatory FREED Tc TYSHAWN Facility: Start: 01-13-2022 End: 01-14-2022 ambulatory SHAIKH Tc TYSHAWN Facility: Start: 06-07-2020 End: 06-08-2020 Patient encounter procedure DC Facility:[facility] Start: 08-05-2018 End: 08-05-2018 Emergency department patient visit GRUPO BROUSSARD Facility:[facility] Start: 07-27-2017 End: 10-14-2017 Ambulatory NANCY MARTINEZ Facility:[facility] Procedures Date Procedure Procedure Detail Performing Clinician [...] Treatment Date Care Activity Detail Author Start: 01-09-2025 End: 01-09-2025 Patient encounter procedure 01/09/2025 2:30 PM EDT Office Visit [facility] [address] [place] [phone] Debbi Alicia NP [address] [place] [address] [facility] Start: 11-15-2024 Adult BMI Screening Adult BMI Screen ing [facility] Start: 08-23-2024 End: 08-23-2024 Patient encounter procedure 08/23/2024 2:00 PM EST Office Visit [facility] [address] [facility] [place] [address] Angel Cole MD [address] [place] [address] [facility] Start: 08-18-2024 Tobacco Screening Tobacco Screening [facility] Start: 08-17-2024 Depression Screening Depression [facility] Start: 07-11-2024 End: 07-11-2024 Patient encounter procedure 07/11/2024 2:30 PM EDT Office Visit [facility] [address] [place] [address] Debbi Alicia NP [address] [place] [address] Arrived [facility] Comment on above: Arrived Start: 07-11-2024 End: 07-11-2025 Lipid 1996 panel - Serum or Plasma Lipid panel Lab Routine Mixed hyperlipidemia (CMS/HCC) Expected: 07/11/2024 (Approximate), Expires: 07/11/2025 [facility] Work Phone: Comment on above: Expected: 07/11/2024 (Approximate), Expires: 07/11/2025 Start: 07-11-2024 End: 07-11-2025 Noninvasive colorectal cancer DNA and occult blood screening [Presence] in Stool Cologuard colon cancer screening Lab Routine Screening for colon cancer Expected: 07/11/2024 (Approximate), Expires: 07/11/2025 [facility] Comment on above: Expected: 07/11/2024 (Approximate), Expires: 07/11/2025 Start: 05-14-2024 Influenza vaccination Influenza Vacc ine (#1) [facility] Start: 03-02-2024 End: 03-02-2024 Patient encounter procedure 03/02/2024 2:00 PM EDT Office Visit [facility] [address] [place] [phone] Ramakrishna López MD [address] [place] [address], [address] [place] [phone] [facility] Start: 01-21-2024 Patient discharge [facility] Start: 09-01-2023 Administration of varicella zoster vaccine Zoster (Shingles) Vaccine (2 of 2) [facility] Start: 05-14-2023 COVID-19 Vaccine ( season) COVID-19 Vaccine ( season) [facility] Start: 04-06-2023 MAMMOGRAM LEFT MAMMOGRAM LEFT [facility] Start: 04-06-2023 Screening for malign ant neoplasm of breast [facility] [facility] Start: 01-11-2023 DTaP,Tdap and Td Vaccines (2 - Td or Tdap) DTaP,Tdap and Td Vaccines (2 - Td or Tdap) [facility] Start: 01-11-2023 Tetanus vaccination TETANUS [facility] Start: 11-18-2022 End: 11-18-2022 Patient encounter procedure 11/18/2022 Office Visit Plastic Surgery Apolinar Henry MD [address] [place] [id number] [facility] Plastic Surgery Start: 10-21-2022 End: 10-21-2022 Patient encounter procedure 10/21/2022 Office Visit Plastic Surgery Apolinar Henry MD [address] [place] [address], [place] [address] [facility] Plastic Surgery Start: 10-07-2022 End: 10-07-2022 Patient encounter procedure 10/07/2022 Office Visit Plastic Surgery Apolinar Henry MD [address] [place] [address], [place] [address] [facility] Plastic Surgery Start: 09-23-2022 End: 09-23-2022 Patient encounter procedure 09/23/2022 Office Visit Plastic Surgery Apolinar Henry MD [address] [place] [address], [place] [address] [facility] Plastic Surgery Start: 08-26-2022 End: 08-26-2022 Patient encounter procedure 08/26/2022 Office Visit Plastic Surgery Apolinar Henry MD [address] [place] [address], [place] [address] [facility] Plastic Surgery Start: 08-12-2022 End: 08-12-2022 Patient encounter procedure 08/12/2022 Office Visit Plastic Surgery Apolinar Henry MD [address] [place] [address], [place] [address] [facility] Plastic Surgery Start: 08-05-2022 End: 08-05-2022 Patient encounter procedure 08/05/2022 Office Visit Plastic Surgery Apolinar Henry MD [address] [place] [address], [place] [address] [facility] Plastic Surgery Start: 07-22-2022 End: 07-22-2022 Patient encounter procedure 07/22/2022 Office Visit Plastic Surgery Apolinar Henry MD [address] [place] [address], [place] [address] [facility] Plastic Surgery Start: 07-15-2022 End: 07-15-2022 Patient encounter procedure 07/15/2022 Office Visit Plastic Surgery Apolinar Henry MD [address] [place] [address] [facility] Plastic Surgery Start: 07-09-2022 Subsequent hospital visit by physician 07/09/2022 Hospital Encounter Multispecialty Apolinar Henry MD [address] [place] [address] Personal history of malignant neoplasm of breast ANA GAL Periop Comment on above: Personal history of malignant neoplasm of breast Start: 07-09-2022 End: 07-09-2022 Admission to same day surgery center 07/09/2022 Surgery Multispecialty Apolinar Henry MD [address] [place] [address] RT BREAST 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 ANA GAL Periop Comment on above: RT BREAST RECONSTRUC TION W/ PLACEMENT 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 & ADM Start: 07-09-2022 End: 07-09-2022 Anesthesia consultation 07/09/2022 Anesthesia Event Multispecialty Deo Moeller, DO [address] [place] [address] ANA GAL [facility] Start: 07-09-2022 End: 07-09-2022 Brst rcnstj immt/dlyd w/tiss salesforce consultant sbsq xpnsj RECONSTRUCTION 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 INCLUDING SUBSEQUENT EXPANDERS Personal history of malignant [...] Visit Plastic Surgery Apolinar Henry MD [address] [place] [id number] [facility] Plastic Surgery Start: 05-14-2022 Influenza vaccination INFLUENZA VACC INE (#1) [facility] Start: 12-03-2021 COVID-19 VACCINE (4 - Booster for Pfizer series) COVID-19 VACCINE (4 - Booster for Pfizer series) [facility] Start: 09-30-2021 COVID-19 VACCINE (4 - Booster for Pfizer series) COVID-19 VACCINE (4 - Booster for Pfizer series) [facility] Start: 2015 Fall Risk Screening Fall Risk Screen ing [facility] Start: 2015 Pneumococcal vaccination PNEUM OCOCCAL VACCINE SERIES (1 - PCV) [facility] Start: 2000 Zoster vaccine hzv l vera for subcutaneous use ZOSTER (SHINGLES) VACCINE (1 of 2) [facility] Start: 1995 Colonoscopy COLORECTAL CAN CER SCREENING DISCUSSION [facility] Start: 1995 Screening for malign ant neoplasm of colon COLORECTAL CANCER SCREENING DISCUSSION [facility] Start: 1990 Fasting lipid profile LIPID SCREENIN G [facility] Start: 1990 Lipid panel LIPID SCREENING [facility] Start: 1980 MAMMOGRAM LEFT MAMMOGRAM LEFT [facility] Start: 1971 Screening for malign ant neoplasm of cervix CERVICAL CANCER SCREENING DISCUSSION [facility] Start: 1969 Third diphtheria, tetanus and acellular pertussis (DTaP) vaccination TDAP (ADULT) [facility] Start: 1968 Adult BMI Follow Up Plan Adult BMI F ollow Up Plan [facility] Start: 1968 Tetanus vaccination TETANUS [facility] Start: 1950 Hepatitis C antibody , confirmatory test HEPATITIS C VIRUS SCREENING [facility] Start: 1950 Hepatitis C screening HEPATITI S C VIRUS SCREENING [facility] Start: 1950 Medicare Annual Well ness (AWV) Medicare Annual Wellness (AWV) [facility] Start: 1950 Medicare Annual Well ness Visit Medicare Annual Wellness Visit [facility] Start: 1950 Screening for malign ant neoplasm of colon [facility] Start: 1950 Screening for osteoporosis DEXA SCAN DISCUSSION [facility] Start: 1950 Thyroid stimulating hormone measurement TSH [facility] Blood chemistry [facility] Complete blood count [facility] Patient referral [facility] Work Phone: Immunizations Immunization Date Immunization Notes Care Provider Padilla avera [facility] 07-11-2024 influenza virus vaccine, unspecified formulation Debbi Alicia ODD JOB WORKER Work Phone: [facility] 07-07-2023 Influenza, Seasonal, Quadrivalent, Adjuvanted Debbi Alicia ODD JOB WORKER Work Phone: [facility] 07-07-2023 zoster vaccine recombinant Debbi Alicia ODD JOB WORKER Work Phone: [facility] 07-07-2023 zoster vaccine, unspecified formulation Chelsea Acevedo [facility] 06-12-2022 Influenza, High-dose Seasonal, Quadrivalent, Preservative Free Debbi Alicia ODD JOB WORKER Work Phone: [facility] 08-05-2021 Influenza, Seasonal, Quadrivalent, Adjuvanted Debbi Alicia ODD JOB WORKER Work Phone: [facility] 08-05-2021 influenza virus vaccine, unspecified formulation Apolinar Henry MD Work Phone: [facility] 06-24-2020 influenza, high dose seasonal, preservative-free Debbi Alicia ODD JOB WORKER Work Phone: [facility] 07-08-2019 pneumococcal polysaccharide vaccine, 23 valent Debbi Alicia ODD JOB WORKER Work Phone: [facility] 07-08-2019 Seasonal trivalent influenza vaccine, adjuvanted, preservative free Debbi Alicia ODD JOB WORKER Work Phone: [facility] 06-03-2018 pneumococcal conjuga te vaccine, 13 valent Debbi Alicia ODD JOB WORKER Work Phone: [facility] 06-03-2018 Seasonal trivalent influenza vaccine, adjuvanted, preservative free Debbi Alicia ODD JOB WORKER Work Phone: [facility] 06-25-2017 Seasonal trivalent influenza vaccine, adjuvanted, preservative free Debbi Alicia ODD JOB WORKER Work Phone: [facility] 06-15-2016 influenza, high dose seasonal, preservative-free Debbi Alicia ODD JOB WORKER Work Phone: [facility] 05-21-2015 influenza, injectabl e, quadrivalent, preservative free Debbi Alicia ODD JOB WORKER Work Phone: [facility] 07-28-2013 hepatitis A and hepatitis B vaccine Debbi Alicia ODD JOB WORKER Work Phone: [facility] 02-16-2013 hepatitis A and hepatitis B vaccine Debbi Alicia ODD JOB WORKER Work Phone: [facility] 02-16-2013 typhoid capsular polysaccharide vaccine Debbi Alicia ODD JOB WORKER Work Phone: [facility] 01-11-2013 hepatitis A and hepatitis B vaccine Edbbi Alicia ODD JOB WORKER Work Phone: [facility] 01-11-2013 tetanus toxoid, redu breezy diphtheria toxoid, and acellular pertussis vaccine, adsorbed Debbi Alicia ODD JOB WORKER Work Phone: [facility] Payers Date Payer Category Payer [employer] ( [employer] others) [id number] 12-10-2022 [employer] ( and others) [id number] 12-10-2022 Self-pay 03-17-2022 Unknown 09-13-2021 [employer] ( and others) [id number] [id number] 09-13-2021 [employer] ( and others) [id number] 09-24-2020 () 1.2.840.584431.1.13.693.2 .[id number] 09-13-2020 Medicare [id number]. 1.13.172.2 .7.3.822719.315 09-13-2020 Medicare (Managed Care) [facility] 1.2.840.886628.1.13.693.2 .[id number] 03-13-2019 Unknown [id number] 07-27-2017 Medicare [id number] 06-04-2016 [employer] ( and others) [id number] 09-13-1959 [employer] ( and others) [id number] 09-13-1959 Medicare [id number] 1950 Unknown [id number] 2.16.840.1.079835.3.579.2 .647 1950 Unknown [id number] 2.16.840.1.544012.3.579.2 .983 1950 Unknown [id number] 2.16.840.1.786222.3.579.2 .983 1950 Unknown [id number] 2.16.840.1.419885.3.579.2 .983 1950 Unknown [id number] 2.16.840.1.875414.3.579.2 .983 1950 Unknown [id number] 2.16.840.1.978365.3.579.2 .983 1950 Unknown [id number] 2.16.840.1.074243.3.579.2 .983 1950 Unknown [id number] 2.16.840.1.644432.3.579.2 .983 1950 Unknown [id number] 2.16.840.1.195689.3.579.2 .983 1950 Unknown [id number] 2.16.840.1.530868.3.579.2 .983 1950 Unknown [id number] 2.16.840.1.733083.3.579.2 .983 1950 Unknown [id number] 2.16.840.1.802812.3.579.2 .983 1950 Unknown [id number] 2.16.840.1.087949.3.579.2 .983 1950 Unknown [id number] 2.16.840.1.325606.3.579.2 .983 1950 Unknown [id number] 2.16.840.1.238251.3.579.2 .983 1950 Unknown [id number] 2.16.840.1.023683.3.579.2 .983 1950 Unknown [id number] 2.16.840.1.665910.3.579.2 .983 1950 Unknown [id number] 2.16.840.1.185961.3.579.2 .983 1950 Unknown [id number] 2.16.840.1.442244.3.579.2 .983 1950 Unknown [id number] 2.16.840.1.731885.3.579.2 .593 1950 Unknown [id number] 2.16.840.1.489779.3.579.2 .593 1950 Unknown [id number] 2.16.840.1.534040.3.579.2 .593 1950 Unknown [id number] 2.16.840.1.930893.3.579.2 .593 1950 Unknown [id number] 2.16.840.1.712661.3.579.2 .593 1950 Unknown [id number] 2.16.840.1.596658.3.579.2 .593 1950 Unknown [id number] 2.16.840.1.328815.3.579.2 .593 1950 Unknown [id number] 2.16.840.1.543130.3.579.2 .593 1950 Unknown [id number] 2.16.840.1.020487.3.579.2 .593 1950 Unknown [id number] 2.16.840.1.644955.3.579.2 .1286 1950 Unknown [id number] 2.16.840.1.279407.3.579.2 .1286 1950 Unknown [id number] 2.16.840.1.758236.3.579.2 .1286 1950 Unknown [id number] 2.16.840.1.646834.3.579.2 .1286 1950 Unknown [id number] 2.16.840.1.066038.3.579.2 .1286 1950 Unknown [id number] 2.16.840.1.361783.3.579.2 .1286 1950 Unknown [id number] 2.16.840.1.499878.3.579.2 .1259 1950 Unknown [id number] 2.16.840.1.298137.3.579.2 .1259 1950 Unknown [id number] 2.16.840.1.002302.3.579.2 .1259 1950 Unknown [id number] 2.16.840.1.016462.3.579.2 .1259 1950 Unknown [id number] 2.16.840.1.293778.3.579.2 .1259 1950 Unknown [id number] 2.16.840.1.306626.3.579.2 .196 1950 Unknown [id number] 2.16.840.1.206219.3.579.2 .196 1950 Unknown [id number] 2.16.840.1.956903.3.579.2 .196 1950 Unknown [id number] 2.16.840.1.958385.3.579.2 .196 1950 Unknown [id number] 2.16840.1.914032.3.579.2 .196 1950 Unknown [id number] 2.16840.1.162032.3.579.2 .196 1950 Unknown [id number] 2.16840.1.984094.3.579.2 .196 [facility] and others) [id number] 2.16840.1.887726.19 Medicare [id number] Private Health Insurance [id number] Unknown [id number] 2.16.840.1.389680.3.579.2 .283 Unknown [id number] 2.16.840.1.921346.3.579.2 .531 Unknown [id number] 2.16.840.1.182656.3.579.2 .462 Unknown [id number] 2.16.840.1.503066.3.579.2 .462 Unknown [id number] 2.16.840.1.752153.3.579.2 .462 Unknown [id number] 2.16.840.1.541779.3.579.2 .462 Unknown [id number] 2.16.840.1.645818.3.579.2 .462 Unknown [id number] 2.16.840.1.919226.3.579.2 .462 Unknown [id number] 2.16.840.1.582061.3.579.2 .462 Unknown [id number] 2.16.840.1.624665.3.579.2 .462 Unknown [id number] 2.16.840.1.080257.3.579.2 .462 Unknown [id number] 2.16.840.1.623544.3.579.2 .462 Unknown [id number] 2.16.840.1.869937.3.579.2 .462 Unknown [id number] 2.16.840.1.531707.3.579.2 .462 Social History Date Type Detail Facility Start: 05-20-2022 End: 01-06-2024 Tobacco smoking status VTIS Never smoked tobacco [facility] Start: 05-20-2022 End: 01-06-2023 Tobacco use and exposure Smokeless tobacco non-user [facility] Start: 05-20-2022 Alcohol intake Ex-drinker (finding) [facility] Start: 1950 Sex Assigned At Not on file [facility] Start: 06-16-2022 End: 08-18-2023 Alcohol intake Current drinker of alcohol (finding) [facility] Start: 06-16-2022 History SDOH Alcohol Comment SELDOM [facility] Start: 06-29-2022 End: 07-09-2022 Exposure to SARS-CoV-2 (event) Not sure [facility] Start: 08-18-2023 End: 04-11-2024 Sex Assigned At [facility] Start: 05-05-2023 End: 12-30-2023 Tobacco smoking status NHIS Unknown if ever smoked [facility] Start: 1950 Sex Assigned At Female [facility] [place] Start: 08-18-2023 End: 04-11-2024 History of Social function [facility] Adolescent depressio n screening assessment 1 [facility] Start: 05-17-2024 End: 07-11-2024 Alcoholic beverage intake Lifetime non-drinker (finding) [facility] Start: 08-18-2023 Alcohol Comment caffeine: none [facility] NEGATED: Highlighted row [facility] NEGATED: Highlighted rowStart: NINF History of tobacco use Passive smoker [facility] Medical Equipment Procedure Code Equipment Code Equipment Origin al Text Equipment Identifier Dates [place] [employer] [facility] [id number] Start: 07-09-2022 Goals Date Patient Goal Desired Activity /State Functional Status Date Assessment Result Facility 01-21-2024 Functional status Activity Abili ty With Assist of 1 [facility] Work Phone: Mental Status Date Assessment Result Facility 01-21-2024 Cognitive function Voice/Name [facility] Work Phone: Clinical Notes 01-13-2022 to 07-11-2024 Debbi Alicia NP - 07/11/2024 3:59 PM Rhett Alicia NP - 07/11/2024 3:58 PM Rhett Alicia, MELINA - 07/11/2024 3:58 PM Rhett Alicia NP - 07/11/2024 2:53 PM EDT Note Date & Type Note Facility 07-11-2024 History of Present illness Narrative Associated Problem(s): Gastroesophageal reflux disease Currently taking Nexium 40mg. Feels symptoms are well controlled. Continue current regimen. Associated Problem(s): Hyperlipidemia (CMS/HCC) Currently taking Simvastatin 20mg Denies any myalgias. Check Lipid Panel today. Continue current regimen. Associated Problem(s): Hypothyroidism (CMS/HCC) Currently taking Levothyroxine 50mcg. Continue current regimen. Associated Problem(s): NARA (obstructive sleep apnea) [facility] Wears CPAP nightly. Feels sleep apnea is well controlled. Associated Problem(s): Left hip pain Left hip pain, interfering with sleep. She also has left sided low back pain and has been seeing pain clinic at [facility], feels symptoms are currently well controlled. Continue current regimen. Images from the original note were not included. Subjective Patient ID: Berenice Nolasco is a 74 y.o. female who presents for Hip Pain. Hip Pain Specialists: Weight Management- Juan Sawyer, Pain Management - Dr. Marcus [facility] Ortho- Dr. Skinner Neurology- Dr. Collins/ [facility] Neurology- Dr. López Vascular- Dr. Cole HLD: Currently taking Simvastatin 20mg Denies any myalgias. Check Lipid Panel Continue current regimen. Component Ref Range & Units 7 mo ago (12/01/23) 7 mo ago (12/01/23) 7 mo ago (12/01/23) 7 mo ago (12/01/23) 7 mo ago (12/01/23) TRIGLYCERIDES <=150 mg/dL 107 137 R 21.7 R SMALL Abnormal R LT. YELLOW R CHOLESTEROL <=200 mg/dL 135 3.9 R 0.4 R TRACE Abnormal R CLEAR R HDL CHOLESTEROL 40 - 60 mg/dL 51 10.7 R 5.7 R MANY Abnormal R 1.020 R Comment: > or =60 mg/dl - LOW CARDIOVASCULAR RISK <40 mg/dl - HIGH CARDIOVASCULAR RISK LDL CHOLESTEROL CALCULATED mg/dL 62.6 92 R 1.7 R YES R 6.5 R Comment: <100 mg/dl OPTIMAL 100-129 mg/dl NEAR OR ABOVE OPTIMAL 130-159 mg/dl BORDERLINE HIGH 160-189 mg/dl HIGH >190 mg/dl VERY HIGH VLDL CHOLESTEROL mg/dL 21.4 0.6 R 0.5 R 100 Abnormal R CHOL HDL RATIO 2.6 23 R 0.03 R NEGATIVE R Comment: 3.3 - 4.4 LOW RISK 4.4 - 7.1 AVERAGE RISK 7.1 - 11.0 MODERATE RISK >11.0 HIGH RISK ALANINE AMINOTRANSFERASE 34 R NEGATIVE R ALKALINE PHOSPHATASE 144 High R TRACE Abnormal R TOTAL PROTEIN 6.7 R MODERATE Abnormal R ALBUMIN LEVEL 3.6 R POSITIVE Abnormal R ALBUMIN GLOBULIN RATIO 1.2 1.0 R LEUKOCYTE ESTERASE URINE MODERATE Abnormal R URINE MICROSCOPIC INDICATED YES Resulting Agency [facility] Review of Systems Constitutional: Negative for activity change, appetite change, chills, diaphoresis, fatigue, fever and unexpected weight change. HENT: Negative for congestion, ear pain, rhinorrhea, sinus pressure, sinus pain, sneezing, sore throat, trouble swallowing and voice change. Eyes: Negative for visual disturbance. Respiratory: Negative for cough, chest tightness, shortness of breath and wheezing. Cardiovascular: Negative for chest pain, palpitations and leg swelling. Gastrointestinal: Negative for abdominal distention, abdominal pain, blood in stool, constipation, diarrhea and vomiting. Genitourinary: Negative for decreased urine volume, dysuria, flank pain, frequency, hematuria and urgency. Musculoskeletal: Negative for arthralgias, gait problem, joint swelling and myalgias. Skin: Negative for rash. Neurological: Negative for dizziness, tremors, syncope, weakness, light-headedness and headaches. Psychiatric/Behavioral: Negative for decreased concentration and suicidal ideas. The patient is not nervous/anxious. Hematological: Does not bruise/bleed easily. Endocrine: Negative for cold intolerance, heat intolerance, polydipsia, polyphagia and polyuria. Objective Physical Exam Vitals reviewed. Constitutional: Appearance: Normal appearance. HENT: Head: Normocephalic and atraumatic. Right Ear: Tympanic membrane normal. Left Ear: Tympanic membrane normal. Nose: Nose normal. Mouth/Throat: Mouth: Mucous membranes are moist. Pharynx: Oropharynx is clear. Eyes: Pupils: Pupils are equal, round, and reactive to light. Cardiovascular: Rate and Rhythm: Normal rate and regular rhythm. Pulses: Normal pulses. Heart sounds: Normal heart sounds. Pulmonary: Effort: Pulmonary effort is normal. Breath sounds: Normal breath sounds. Abdominal: General: Abdomen is flat. Bowel sounds are normal. Palpations: Abdomen is soft. Musculoskeletal: General: Normal range of motion. Cervical back: Normal range of motion. Skin: General: Skin is warm and dry. Capillary Refill: Capillary refill takes less than 2 seconds. Neurological: General: No focal deficit present. Mental Status: She is alert and oriented to person, place, and time. Psychiatric: Mood and Affect: Mood normal. Behavior: Behavior normal. Assessment/Plan Problem List Items Addressed This Visit Gastroesophageal reflux disease Currently taking Nexium 40mg. Feels symptoms are well controlled. Continue current regimen. Hyperlipidemia (CMS/HCC) Currently taking Simvastatin 20mg Denies any myalgias. Check Lipid Panel today. Continue current regimen. Relevant Orders Lipid panel NARA (obstructive sleep apnea) [facility]. Wears CPAP nightly. Feels sleep apnea is well controlled. Hypothyroidism (CMS/HCC) Currently taking Levothyroxine 50mcg. Continue current regimen. CPAP (continuous positive airway pressure) dependence - Primary Left hip pain Left hip pain, interfering with sleep. She also has left sided low back pain and has been seeing pain clinic at [facility], feels symptoms are currently well controlled. Continue current regimen. Recurrent major depressive disorder, in full remission (CMS/HCC) Screening for colon cancer Relevant Orders Cologuard colon cancer screening documented in this encounter [facility] 07-11-2024 Instructions Debbi Alicia NP - 07/11/2024 2:30 PM EDT FASTING labs ordered. Nothing to eat or drink for 12 hours prior to blood draw. Water and black coffee ok. documented in this encounter [facility] 06-26-2024 Note Orthopedic Surgery Subjective Pain of the Left Hip 06/26/24 Berenice Nolasco is a 74 y.o. female presenting for evaluation of bilateral hip pain. I think that this is multifactorial. She has x-rays that do demonstrate that she has mild to moderate arthritis of her bilateral hips. She also has an MRI of the lumbar spine which demonstrates lumbar radiculopathy for which she sees pain management. She actually just had corticosteroid injections 1 week ago. Third, clinically on her physical exam she has bilateral trochanteric bursitis. My recommendation would be for bilateral hip corticosteroid injections into the trochanteric bursae followed by 6 weeks of physical therapy for stretching the IT band and core strengthening. Patient History No past surgical history on file. Past Medical History: Diagnosis Date ??? Depression ??? GERD (gastroesophageal reflux disease) ??? Overactive bladder ??? Sleep apnea ??? Spinal stenosis Objective General: There is no height or weight on file to calculate BMI. No acute distress, comfortable Respiratory: Unlabored breathing with normal rate, no cough Cardiovascular: Warm well perfused extremities Psych: Appropriate mood behavior Bilateral hips demonstrate mildly irritable logroll's with good stability. She does have tenderness palpation of the bilateral hip trochanteric bursae with tight IT bands and relatively weak core strength. She also does have bilateral straight leg tests positive. Imaging personally reviewed: X-rays bilateral hip demonstrate mild to moderate osteoarthritis Assessment/Plan Berenice Nolasco is a 74 y.o. year old female with Greater trochanteric bursitis of both hips Large Joint: L greater trochanteric bursa on 06/26/2024 1:26 PM Indications: pain Details: 21 G needle, lateral approach Medications: 4 mL lidocaine HCl 10 mg/mL (1 %); 20 mg triamcinolone acetonide (Kenalog-10) 10 mg/mL Outcome: tolerated well, no immediate complications Procedure, treatment alternatives, risks and benefits explained, specific risks discussed. Consent was given by the patient. Patient was prepped and draped in the usual sterile fashion. Large Joint: R greater trochanteric bursa on 06/26/2024 1:26 PM Indications: pain Details: 21 G needle, lateral approach Medications: 4 mL lidocaine HCl 10 mg/mL (1 %); 40 mg triamcinolone acetonide (Kenalog-10) 10 mg/mL Outcome: tolerated well, no immediate complications Procedure, treatment alternatives, risks and benefits explained, specific risks discussed. Consent was given by the patient. Patient was prepped and draped in the usual sterile fashion. [facility] 01-21-2024 Discharge summary Note Date/Time January 21, 2024 10:39am [facility] Medical Records Department [address] [place] [address] Instructions for Home/Discharge Instructions 01/21/24 1037 MR#: [id number] Acct: [id number] Name: BERENICE NOLASCO Rep #:[id number] : 1950 73 From: Apolinar Henry MD PCP: Shaikh Villagran Status:REG [facility] Discharge Instructions Dressing / Incision Additional Dressing/Incision [...] Henry MD CC: Shaikh Tyshawn ~ Signed [facility] Work Phone: 1(529) 398-759405-10-2024 Procedure [facility] 01-21-2024 History and physical note Author Apolinar yuko [facility] January 21, 2024 7:25am Note Date/Time January 21, 2024 7:25a m [facility] Medical Records Department [address] [place] [address] History & Physical Exam 01/21/24 0722 MR#: [id number] Acct: [id number] Name: BERENICE NOLASCO Rep #:[id number] : 1950 73 From: Apolinar Henry MD PCP: Shaikh Villagran Status:[facility] Location: [address] History and Physical Date of Admission: 01/21/24 The patient is examined and there are no changes from the H&P dated 01/06/24. She presents for left breast reduction for symmetry following reconstruction on her right breast. Also right breast salesforce consultant port removal. Informed consent was obtained. Assessment & Plan Assessment/Plan (1) S/P breast reconstruction, right: (2) History of cancer of right breast: (3) Breast hypertrophy: (4) Breast asymmetry between shawnee breast and reconstructed breast: PLAN: Plan For left breast reduction and right salesforce consultant port removal. 01/21/24724 <Electronically signed by Apolinar Henry MD> Cosigner Signature (if applicable): CC: Dr. Apolinar Henry MD; Shaikh Tyshawn~ Signed [facility] Work Phone: 1(739) 406-406505-10-2024 [facility] Medical Records Department [address] [place] [address] History Physical Exam 01/21/24721 MR#: [id number] Acct: [id number] Name: MARITZABERENICE LIZETH Rep #: [id number] : 1950 73 From: Apolinar Henry MD PCP: Shaikh Villagran Status:[facility] Location: [place] [address] History and Physical Date of Admission: 01/21/24 The patient is examined and there are no changes from the H P dated 01/06/24. She presents for left breast reduction for symmetry following reconstruction on her right breast. Also right breast salesforce consultant port removal. Informed consent was obtained. Assessment Plan Assessment/Plan (1) S/P breast reconstruction, right: (2) History of cancer of right breast: (3) Breast hypertrophy: (4) Breast asymmetry between shawnee breast and reconstructed breast: PLAN: Plan For left breast reduction and right salesforce consultant port removal. 01/21/24724 Cosigner Signature (if applicable): CC: Dr. Apolinar Henry MD; Shaikh Tyshawn [facility] Progress note Author Apolinar Henry [facility] December 14, 2023 4:43pm Note Date/Time December 14, 2023 3:58 pm [facility] Plastic & Reconstructive Surgery [address], [address] [place] [address] OFFICE VISIT Date of Service: 12/14/23 MR#: [id number] Acct: [id number] Name: BERENICE NOLASCO Rep #: [id number] : 1950 Provider: Dr. Dolly Henry MD Age/Sex: 73/F Location: [facility] Status: Signed Intake Vital Signs 06/30/23 [...] mg PO HS 05/05/23 [History Confirmed 12/14/23] zejyvgoh-mav-izuyp acid 0.4 mg-lycopene 300 mcg-lutein 250 mcg [...] future surgery Left breast reduction, removal right salesforce consultant pot. [facility] Medical History (Updated 05/05/23 @ 15:33 [...] Exam Details The patient's right breast tissue salesforce consultant is in good position and the port [...] remove the port on the right tissue salesforce consultant whichhas the capability of functioning as a [...] Z85.3 Breast hypertrophy N62 Breast asymmetry between shawnee breast and reconstructed breast N65.1 Assessment and Plan (No Qualifiers) Assessment and Plan (1) History of cancer of right breast: Status: Acute (2) Breast hypertrophy: Status: Acute (3) Breast asymmetry between shawnee breast and reconstructed breast: Status: Acute Plan Details Additional Comments: We will obtain preauthorization for the proposed procedure of left breast reduction for symmetry and removal of the salesforce consultant port right breast 12/14/23 1643 <Electronically signed by Apolinar gar MD> Date _ Apolinar Henry MD Cosigner Signature: Date (if applicable) CC: ~ [facility] Work Phone: 1(205) 804-595103-14-2024 Miscellaneous Notes* Telephone Encounter - Chelsea Acevedo - 11/25/2023 3:52 PM EDT Patient called in asking to discuss results of EEG and MRI that were completed on 11/18/23. Patientis also asking is results could be forwarded to her PCP's office. Fax number [phone] * Telephone Encounter - Suzanna Cuadra RN [...] understanding. Results faxed as requested to Dr. iVllagran at provided #. [facility] Telephone encounter Note* Telephone Encounter - Chelsea Acevedo - 11/25/2023 3:52 PM EDT Patient called in asking to discuss results of EEG and MRI that were completed on 11/18/23. Patientis also asking is results could be forwarded to her PCP's office. Fax number [phone] [facility] [employer] [id number] Telephone encounter Note* Telephone Encounter - Suzanna Cuadra RN - 11/25/2023 3:52 PM EDT Please review and advise on next steps. [facility]As[facility]ée [id number] Telephone encounter Note* Telephone Encounter - Ramakrishna López MD - 11/25/2023 3:52 PM EDT MRI shows non specific ischemic changes EEG is normal [facility] Work Phone: 1(231) 834-771103-14-2024 Telephone encounter Note* Telephone Encounter - Suzanna Cuadra RN - 11/25/2023 3:52 PM EDT Patient informed of results and voiced understanding. Results faxed as requested to Dr. Villagran at provided #. [facility]01-29-2024 NoteChief Complaint Chief Complaint Patient presents for [...] breast cancer History of colonoscopy with polypectomy [place] (myocardial infarction) (2013) Morbid obesity with body [...] Health Maintenance Colonoscopy 04/20/2019 (more content not included)...[facility]Order Comment: no [id number] Evaluation note* Encounter Date Diagnosis Assessment Notes [...] met, continue -increase protein foods- Not reviewed [facility] [facility] Other 10-23-2023 Evaluation note* Encounter Date Diagnosis [...] does anticipate getting reconnected with Janina her mechanical maintenance foreman once she 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 her neck [...] Encounter for weight management (ICD-10 - Z76.89) [facility] Other 09-14-2023 Evaluation note* Encounter Date Diagnosis Assessment Notes [...] to 30 g/day -NEW: increase protein foods [employer] [facility] Other 07-03-2023 Evaluation note* Encounter Date Diagnosis Assessment Notes [...] Encounter for weight management (ICD-10 - Z76.89) [facility] Other 03-08-2023 History of Present illness Narrative* [...] the decision is whether to leave the salesforce consultant and removal Of the port were to [...] IN 2017 Malignant neoplasm of female breast [place] (myocardial infarction) with knee scope PVD (peripheral vascular disease) Past Surgical History: Procedure Laterality Date RECONSTRUCTION BREAST 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 INCLUDING SUBSEQUENT EXPANDERS Right 07/09/2022 Laterality: Right; Surgeon: Apolinar Henry MD; Location: [facility] IMPLANTATION BIOLOGIC IMPLANT FOR SOFT TISSUE REINFORCEMENT ADD-ON PX Right 07/09/2022 RT BREAST 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/ 150 CC FILL MASTECTOMY Right 1992 BLADDER REPAIR HYSTERECTOMY KNEE SURGERY Bilateral 2017 AND HAD [place] DURING SURGERY ORAL SURGERY REMOVAL CATARACT (PEM) [...] kg/m Smoking Status Never The patient's right salesforce consultant is in good position. The overlying tissue [...] Follow-up later this year documented in this [facility]02-08-2023 History of Present illness Narrative* Raphael [...] - 10/21/2022 1:45 PM EST Subjective: Berenice Koth is an 72 y.o. female who presents [...] IN 2017 Malignant neoplasm of female breast [place] (myocardial infarction) with knee scope PVD (peripheral vascular disease) Past Surgical History: Procedure Laterality Date RECONSTRUCTION BREAST 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 INCLUDING SUBSEQUENT EXPANDERS Right 07/09/2022 Laterality: Right; Surgeon: Apolinar Henry MD; Location: [facility] IMPLANTATION BIOLOGIC IMPLANT FOR SOFT TISSUE REINFORCEMENT ADD-ON PX Right 07/09/2022 RT BREAST 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/ 150 CC FILL MASTECTOMY Right 1992 BLADDER REPAIR HYSTERECTOMY KNEE SURGERY Bilateral 2016 AND HAD [place] DURING SURGERY ORAL SURGERY REMOVAL CATARACT (PEM) [...] Status Never Patient with right breast tissue salesforce consultant. She has left breast ptosis and hypertrophy. The port is in satisfactory position. The patient has many questions and is undecided regarding further reconstructive plans. She is interested in matching the left breast however this breast is ptotic and larger. I indicated its more difficult to reconstruct a breast that looks identical to that side. Tableau Analyst is at its maximal volume of 390 mL for which it could be As a permanent implant. Discussed with the patient that we could consider reassessment in a month to allow the tissue on the right side to relax. After that time we can review the options which may include leaving the salesforce consultant in place or overexpansion with eventual plans for replacement with a permanent implant. I have reviewed massage of the implant to help soften the pocket. Assessment: Ongoing right breast reconstruction Plan: Pt to RETURN in 1 month FOR RECHECK. They are encouraged to call in the interim with any problems or questions relating to this encounter. documented in this encounterC[facility]01-25-2023 History of Present illness Narrative* Cecile Baker - 10/07/2022 2:15 PM EST Nurse [...] evaluation of continued filling of her tissue salesforce consultant. She states she had pain following the [...] IN 2017 Malignant neoplasm of female breast [place] (myocardial infarction) with knee scope PVD (peripheral vascular disease) Past Surgical History: Procedure Laterality Date RECONSTRUCTION BREAST 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 INCLUDING SUBSEQUENT EXPANDERS Right 07/09/2022 Laterality: Right; Surgeon: Apolinar Henry MD; Location: [facility] IMPLANTATION BIOLOGIC IMPLANT FOR SOFT TISSUE REINFORCEMENT ADD-ON PX Right 07/09/2022 RT BREAST 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/ 150 CC FILL MASTECTOMY Right 1992 BLADDER REPAIR HYSTERECTOMY KNEE SURGERY Bilateral 2016 AND HAD [place] DURING SURGERY ORAL SURGERY REMOVAL CATARACT (PEM) [...] expansion for 3 months before removing the salesforce consultant and placement of the permanent implant. She presently has 330 mL in and we will put 60 mL in for her to assess the size. The pts Tissue Tableau Analyst was Filled with 60 cc's of Injectable Saline (unilaterally) after prepping the skin with alcohol. She tolerated the procedure well. She is to follow up in 2 Weeks for evaluation and possible further expansion. Assessment: Ongoing right breast reconstruction with continued filling of her tissue salesforce consultant Plan: Pt to RETURN in 2 weeks FOR RECHECK. They are encouraged to call in the interim with any problems or questions relating to this encounter. documented in this encounterC[facility]01-11-2023 History of Present illness Narrative* Ameena Jackson [...] IN 2017 Malignant neoplasm of female breast [place] (myocardial infarction) with knee scope PVD (peripheral vascular disease) Past Surgical History: Procedure Laterality Date RECONSTRUCTION BREAST 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 INCLUDING SUBSEQUENT EXPANDERS Right 07/09/2022 Laterality: Right; Surgeon: Apolinar Henry MD; Location: [facility] IMPLANTATION BIOLOGIC IMPLANT FOR SOFT TISSUE REINFORCEMENT ADD-ON PX Right 07/09/2022 RT BREAST 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/ 150 CC FILL MASTECTOMY Right 1993 BLADDER REPAIR HYSTERECTOMY KNEE SURGERY Bilateral 2017 AND HAD [place] DURING SURGERY ORAL SURGERY REMOVAL CATARACT (PEM) [...] side which is nontender. The pts Tissue Tableau Analyst was Filled with The 75 cc's of [...] relating to this encounter. documented in this encounterCleveland Clinic Foundation11-30-2022 History of Present illness Narrative* Ameena Jackson [...] IN 2017 Malignant neoplasm of female breast [place] (myocardial infarction) with knee scope Past Surgical History: Procedure Laterality Date RECONSTRUCTION BREAST 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 INCLUDING SUBSEQUENT EXPANDERS Right 07/09/2022 Laterality: Right; Surgeon: Apolinar Henry MD; Location: [facility] IMPLANTATION BIOLOGIC IMPLANT FOR SOFT TISSUE REINFORCEMENT ADD-ON PX Right 07/09/2022 RT BREAST 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/ 150 CC FILL MASTECTOMY Right 1992 BLADDER REPAIR HYSTERECTOMY KNEE SURGERY Bilateral 2016 AND HAD [place] DURING SURGERY ORAL SURGERY REMOVAL CATARACT (PEM) [...] There is no discoloration. The pts Tissue Tableau Analyst was Filled with 35 cc's of Injectable Saline (bilaterally/unilaterally) after prepping the skin with alcohol. She tolerated the procedure well. She is to follow up in 2 Weeks for evaluation and further expansion. Assessment: Acquired absence right breast. Patient for expansion of tissue salesforce consultant Plan: Pt to RETURN in 2 weeks FOR RECHECK. They are encouraged to call in the interim with any problems or questions relating to this encounter. documented in this encounterAvita Health [id number] History of Present illness Narrative* Ameena Jackson [...] IN 2017 Malignant neoplasm of female breast [place] (myocardial infarction) with knee scope Past Surgical History: Procedure Laterality Date RECONSTRUCTION BREAST 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 INCLUDING SUBSEQUENT EXPANDERS Right 07/09/2022 Laterality: Right; Surgeon: Apolinar Henry MD; Location: [facility] IMPLANTATION BIOLOGIC IMPLANT FOR SOFT TISSUE REINFORCEMENT ADD-ON PX Right 07/09/2022 RT BREAST 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/ 150 CC FILL MASTECTOMY Right 1993 BLADDER REPAIR HYSTERECTOMY KNEE SURGERY Bilateral 2016 AND HAD [place] DURING SURGERY ORAL SURGERY REMOVAL CATARACT (PEM) [...] relating to this encounter. documented in this encounterCleveland Clinic Foundation11-09-2022 History of Present illness Narrative* Ameena JEREMY Jackson - 07/22/2022 1:30 PM EST General Plastics [...] IN 2017 Malignant neoplasm of female breast [place] (myocardial infarction) with knee scope Past Surgical History: Procedure Laterality Date RECONSTRUCTION BREAST 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 INCLUDING SUBSEQUENT EXPANDERS Right 07/09/2022 Laterality: Right; Surgeon: Apolinar Henry MD; Location: [facility] IMPLANTATION BIOLOGIC IMPLANT FOR SOFT TISSUE REINFORCEMENT ADD-ON PX Right 07/09/2022 RT BREAST 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/ 150 CC FILL MASTECTOMY Right 1992 BLADDER REPAIR HYSTERECTOMY KNEE SURGERY Bilateral 2016 AND HAD [place] DURING SURGERY ORAL SURGERY REMOVAL CATARACT (PEM) [...] right breast reconstruction with placement of tissue salesforce consultant Plan: Pt to RETURN in 2 weeks FOR RECHECK. They are encouraged to call in the interim with any problems or questions relating to this encounter. documented in this encounterC[facility] Clinic Foundation11-02-2022 History of Present illness Narrative* Ameena Jackson [...] for evaluation of Right breast reconstruction with salesforce consultant on 07/09/22. She complains of soreness, 7/10 [...] IN 2017 Malignant neoplasm of female breast [place] (myocardial infarction) with knee scope Past Surgical History: Procedure Laterality Date RECONSTRUCTION BREAST 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 INCLUDING SUBSEQUENT EXPANDERS Right 07/09/2022 Laterality: Right; Surgeon: Apolinar Henry MD; Location: [facility] IMPLANTATION BIOLOGIC IMPLANT FOR SOFT TISSUE REINFORCEMENT ADD-ON PX Right 07/09/2022 Laterality: Right; Surgeon: Apolinar Henry MD; Location: [facility] MASTECTOMY Right 1992 BLADDER REPAIR HYSTERECTOMY KNEE SURGERY Bilateral 2017 AND HAD [place] DURING SURGERY ORAL SURGERY REMOVAL CATARACT (PEM) [...] breast reconstruction with placement of a tissue salesforce consultant Plan: Pt to RETURN in 1 week FOR RECHECK. They are encouraged to call in the interim with any problems or questions relating to this encounter. documented in this encounterAvita Health [id number] Nurse Surgical operation note* Deanna Jimenez RN [...] Les. Encouraged to use CPAP at home. [facility]10-27-2022 Nurse Note* Deanna Jimenez RN - 07/09/2022 [...] by paola segovia RN and Nuno hahn DIALYSIS SOCIAL WORKER. Report given to alphonse DIAZ upon arrival. Patient connected to Monitors. documented in this [facility]10-27-2022 Nurse Surgical operation note* Alphonse Craft [...] pain, VSS, resp even and unlabored. . [facility]10-27-2022 Hospital Discharge instructions* Discharge Instructions* Apolinar Henry [...] Care Everywhere. * Incentive Spirometer: General Info (Bulgarian) documented in this [facility]10-27-2022 Note* Brief Op Note - Apolinar Henry MD - 07/09/2022 2:34 PM EDT POST OPERATIVE/PROCEDURE NOTE Berenice Nolasco ([id number]) SURGEON Surgeon(s) and Role: * Apolinar Henry MD - Primary LIE DETECTOR OPERATOR GYM INSTRUCTOR ANESTHESIOLOGIST DIALYSIS SOCIAL WORKER: Real Hahn APRN-DIALYSIS SOCIAL WORKER SURGICAL STAFF Fine Grader: Marleni Swartz RN; Joanna Flores RN Monitoring Nurse: Linsey Reyes RN Registered Nurse Housekeeper/Laundry Assistant: Cady Vasquez RN Scrub Person: Laisha An LPN Manager Front Office: Janet Gaston PROCEDURE PERFORMED Right breast reconstruction with placement of tissue salesforce consultant ([id number]) 150cc initial fill PRIMARY CLOSURE Yes [...] Henry MD July 09, 2022 2:34 PM [facility]10-27-2022 Miscellaneous Notes* Brief Op Note - Apolinar Henry MD - 07/09/2022 2:34 PM EDT POST OPERATIVE/PROCEDURE NOTE Berenice Nolasco ([id number]) SURGEON Surgeon(s) and Role: * Apolinar Henry MD - Primary LIE DETECTOR OPERATOR GYM INSTRUCTOR ANESTHESIOLOGIST DIALYSIS SOCIAL WORKER: Real Hahn APRN-DIALYSIS SOCIAL WORKER SURGICAL STAFF Fine Grader: Marleni Swartz RN; Joanna Flores RN Monitoring Nurse: Linsey Reyes RN Registered Nurse Housekeeper/Laundry Assistant: Cady Vasquez RN Scrub Person: Laisha An LPN Manager Front Office: Janet Feldman PROCEDURE PERFORMED Right breast reconstruction with placement of tissue salesforce consultant ([id number]) 150cc initial fill PRIMARY CLOSURE Yes [...] 09, 2022 2:34 PM documented in this encounterCleveland Clinic Foundation10-27-2022 Nurse Surgical operation note* Joanna Flores RN - 07/09/2022 12:24 PM EDT OR room temp 68f Humidity 305 Firescore 2 Prep dry prior to draping. Procedure completed. Dressings applied. Patient transported to PACU by paola segovia RN and Nuno hahn CRNA. Report given to alphonse DIAZ upon arrival. Patient connected to Monitors. [facility]10-27-2022 History and physical note* Apolinar Henry MD - 07/09/2022 10:58 AM EDT I have examined the patient and reviewed the previous H&P completed on date 06/24/22 and there are no changes. See paper H&P in chart Apolinar Henry MD, 07/09/2022, 10:59 AM. [facility]10-27-2022 History and physical note* Apolinar Henry MD - 07/09/2022 10:58 AM EDT I have examined the patient and reviewed the previous H&P completed on date 06/24/22 and there are no changes. See paper H&P in chart Apolinar Henry MD, 07/09/2022, 10:59 AM. documented in this [facility]10-18-2022 History of Present illness Narrative* Ameena [...] IN 2017 Malignant neoplasm of female breast [place] (myocardial infarction) with knee scope Past Surgical History: Procedure Laterality Date MASTECTOMY Right 1993 BLADDER REPAIR HYSTERECTOMY KNEE SURGERY Bilateral 2017 AND HAD [place] DURING SURGERY ORAL SURGERY REMOVAL CATARACT (PEM) [...] procedure of Right breast reconstruction with tissue salesforce consultant Was thoroughly reviewed with the patient. The [...] right breast reconstruction with placement of tissue salesforce consultant Plan: We will proceed with surgery in the near future and the patient will call with any further questions. I spent 50 minutes total time with the patient. documented in this [facility]10-04-2022 History of Present illness Narrative* Ameena [...] MD - 06/16/2022 11:30 AM EDT Subjective: Breenice Nolasco is an 72 y.o. female who [...] We discussed direct to implant versus tissue salesforce consultant and decided on tissue salesforce consultant to allow flexibility in choosing her size. She understands in a second surgery would be required to either remove the port or replace the implant. I measured her for an implant today which will be a tissue salesforce consultant--smooth round spectrum [phone] an approximately 12 cm diameter The procedure of Right breast reconstruction with tissue salesforce consultant was thoroughly reviewed with the patient. The [...] for further preoperative preparation documented in this [facility]09-07-2022 History of Present illness Narrative* Ameena [...] types of reconstructions described included: 1) Tissue salesforce consultant and implant based reconstruction, both single and [...] after considering the options documented in this encounterC[facility]05-03-2022 NotePROCEDURE: XR HIPS CHARLIE 5V W PELVIS [...] Electronically authenticated by: TY BOUDREAUX Date: 2022-01-13 17:45[facility] Diagnosis Personal history of malignant neoplasm of breast- Primary 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 absence of breast and nipple documented in this encounter [facility]* Diagnosis Personal history of malignant neoplasm of breast- Primary 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 absence of breast and nipple 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 absence of breast and nipple documented in this encounter [facility]* Diagnosis S/P breast reconstruction- Primary Breast replaced by other means 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 absence of breast and nipple Personal history of malignant neoplasm of breast 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 absence of breast and nipple [facility] Diagnosis Acquired absence of right breast- Primary Acquired absence of right breast Personal history of malignant neoplasm of breast Personal history of malignant neoplasm of breast [facility] Diagnosis Acquired absence of right breast and nipple- Primary Acquired absence of breast and nipple Personal history of malignant neoplasm of breast S/P breast reconstruction Breast replaced by other means [facility] Diagnosis Acquired absence of right breast and nipple- Primary Acquired absence of breast and nipple S/P breast reconstruction Breast replaced by other means [facility] Diagnosis S/P breast reconstruction- Primary Breast replaced by other means [facility] Diagnosis S/P breast reconstruction- Primary Breast replaced by other means 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 absence of breast and nipple [facility] Diagnosis Right-sided chest pain [facility] Diagnosis Acquired absence of right breast and nipple- Primary Acquired absence of breast and nipple S/P breast reconstruction Breast replaced by other means [facility] Diagnosis Acquired absence of right breast and nipple- Primary Acquired absence of breast and nipple S/P breast reconstruction Breast replaced by other means [facility] noteNo InformationNort [facility] Other Evaluation noteNo assessment information available [facility] Work Phone: Evaluation note* Diagnosis Onset Date Resolution Status Breast asymmetry between [place] breast and reconstructed breast acute Breast hypertrophy acute History of cancer of right breast acute [facility] Work Phone: Evaluation note* Diagnosis Onset Date Resolution Status BMI 32.0-32.9,adult acute Depression acute GERD (gastroesophageal reflux disease) acute Hyperlipidemia acute Hypothyroid acute Obesity acute NARA on CPAP acute [facility] Work Phone: Evaluation note* Diagnosis Onset [...] breast acute S/P breast reconstruction, right acute [facility] Work Phone: Evaluation note* Diagnosis Onset [...] breast acute S/P breast reconstruction, right acute [facility] Work Phone: Evaluation note* Diagnosis NARA (obstructive sleep apnea)- Primary Obstructive sleep apnea (adult) (pediatric) Hypothyroidism, unspecified type (CMS/HCC) Hyperlipidemia, unspecified hyperlipidemia type (CMS/HCC) Preoperative clearance Unspecified pre-operative examination Preoperative clearance- Primary Unspecified pre-operative examination Recent urinary tract infection Left hip pain- Primary Pain in joint, pelvic region and thigh Recurrent major depressive disorder, in full remission (CMS/HCC) Hypothyroidism, unspecified type (CMS/HCC) Gastroesophageal reflux disease without esophagitis Esophageal reflux Hyperlipidemia, unspecified hyperlipidemia type (CMS/HCC) NARA (obstructive sleep apnea) Obstructive sleep apnea (adult) (pediatric) CPAP (continuous positive airway pressure) dependence- Primary Dependence on other enabling machine Gastroesophageal reflux disease without esophagitis Esophageal reflux Hypothyroidism, unspecified type (CMS/HCC) Recurrent major depressive disorder, in full remission (CMS/HCC) Mixed hyperlipidemia (CMS/HCC) Mixed hyperlipidemia NARA (obstructive sleep apnea) Obstructive sleep apnea (adult) (pediatric) Left hip pain Pain in joint, pelvic region and thigh Screening for colon cancer Special screening for malignant neoplasms, colon documented in this encounter [facility] N[facility]ative - Reported* Type Description Date [...] side breast tissue expand er Surgical History [place] teeth Surgical History 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 history of malignant neoplasm of breast [Z85.3] 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] Procedures DC 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 PLACEMENT BREAST RECONSTRUCTION DC IMPLNT BIO IMPLNT FOR SOFT TISSUE REINFORCEMENT RECONSTRUCTION BREAST 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 INCLUDING SUBSEQUENT EXPANDERS IMPLANTATION BIOLOGIC IMPLANT FOR SOFT TISSUE REINFORCEMENT ADD-ON PX Apolinar Henry MD [address] [place] [id number] Referral ID Status Reason Start Date Expiration Date Visits Re quested Visits Authorized [id number] 06/10/2022 1 1 [employer] [facility] [employer] Summary Purpose Family History No Family History Records Found Relationship Condition Age at Onset Recorded Date/T amber mother Cardiac disease Unknown father Cardiac disease Unknown Relationship Condition Age at Onset Recorded Date/T amber father Congestive heart failure Unknown Unknown History of stroke Unknown Heart disease Unknown Diabetes mellitus Unknown Not Specified Family history of mental disorder Unknow n Vascular dementia Unknown Relationship Condition Age at Onset Recorded Date/T amber father Congestive heart failure Unknown Unknown History of stroke Unknown Heart disease Unknown Diabetes mellitus Unknown mother Family history of mental disorder Unknown Vascular dementia Unknown Advance Directives No Advanced Directives Records Found Advance Directive Response Recorded Date/ Time Advance Directives No October 03, 2023 8:42am Advance Directive Response Recorded Date/ Time Advance Directives No October 03, 2023 9:42am Advance Directive Response Recorded Date/ Time Name of Medical Power of Turpentine Distiller SPOUSE December 30, 2023 10:37am Living Will Yes December 30, 2023 10:37am Power of Turpentine Distiller Yes December 29 10:37am Advance Directive Response Recorded Date/ Time Living Will Yes December 30, 2023 10:37am Power of Turpentine Distiller Yes December 29 10:37am Chief Complaint and Reason for Visit Chief Complaint Consult Chief Complaint Consult preop #1 left breast red/ right salesforce consultant port Reason for Visit Breast asymmetry [place] breast and reconstructed breast Breast hypertrophy History of cancer of right breast Chief Complaint Wmn F/U Obesity WMN 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 JOB WORKER follow up Reason for Visit BMI 32.0-32.9,adult Depression GERD (gastroesophageal reflux disease) Hyperlipidemia Hypothyroid Obesity NARA on CPAP Chief Complaint WMN 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 JOB WORKER follow up WM RD followu p Reason for Visit BMI 32.0-32.9,adult Depression GERD (gastroesophageal reflux disease) Hyperlipidemia Hypothyroid Obesity NARA on CPAP Chief Complaint Follow up Reason for Visit Breast asymmetry [place] breast and reconstructed breast Breast hypertrophy History of cancer of right breast Chief Complaint Follow up pre op #1 Left Breast reduction/port removal Reason for Visit Breast asymmetry [place] breast and reconstructed breast Breast hypertrophy History of cancer of right breast Chief Complaint Follow up pre op #1 Left Breast reduction/port removal pre op #2 left breast reduction/port removal Left Breast Reduction for Symmetry, Removal Right Left Breast Reduction for Symmetry, Removal Right Reason for Visit Breast asymmetry [place] breast and reconstructed breast Breast hypertrophy History of cancer of right breast Breast asymmetry between [place] breast and reconstructed breast Breast hypertrophy History of cancer of right breast S/P breast reconstruction, right Breast asymmetry between [place] breast and reconstructed breast History of cancer of right breast S/P breast reconstruction, right Breast asymmetry between [place] breast and reconstructed breast Breast hypertrophy History of cancer of right breast S/P breast reconstruction, right Chief Complaint WM RD followu p Reason for Visit BMI 32.0-32.9,adult Depression GERD (gastroesophageal reflux disease) Hyperlipidemia Hypothyroid Obesity NARA on CPAP Chief Complaint Follow up pre op #1 Left Breast reduction/port removal pre op #2 left breast reduction/port removal Reason for Visit Breast asymmetry [place] breast and reconstructed breast Breast hypertrophy History of cancer of right breast Breast asymmetry between [place] breast and reconstructed breast Breast hypertrophy History of cancer of right breast S/P breast reconstruction, right Breast asymmetry between [place] breast and reconstructed breast History of cancer of right breast S/P breast reconstruction, right Chief Complaint WMN f/u Reason for Visit BMI 32.0-32.9,adult Depression GERD (gastroesophageal reflux disease) Hyperlipidemia Hypothyroid Obesity NARA on CPAP Additional Source Comments INFORMATION SOURCE (unrecogn ized section and content) DATE CREATED AUTHOR 03/07/2018 [facility] DATE CREATED AUTHOR AUTHOR'S ORGANIZ ATION 08/23/2018 [facility] DATE CREATED AUTHOR AUTHOR'S ORGANIZ ATION 09/01/2018 [facility] DATE CREATED AUTHOR AUTHOR'S ORGANIZ ATION 12/11/2020 [facility] DATE CREATED AUTHOR AUTHOR'S ORGANIZ ATION 07/10/2022 [facility] DATE CREATED AUTHOR AUTHOR'S ORGANIZ ATION 11/20/2022 [facility] DATE CREATED AUTHOR AUTHOR'S ORGANIZ ATION 12/25/2022 [facility] DATE CREATED AUTHOR AUTHOR'S ORGANIZ ATION 02/12/2024 [facility] DATE CREATED AUTHOR AUTHOR'S ORGANIZ ATION 03/04/2024 [facility] DATE CREATED AUTHOR AUTHOR'S ORGANIZ ATION 04/14/2024 [facility] DATE CREATED AUTHOR AUTHOR'S ORGANIZ ATION 07/02/2024 [facility] DATE CREATED AUTHOR AUTHOR'S ORGANIZ ATION 07/13/2024 [facility] DATE CREATED AUTHOR AUTHOR'S ORGANIZ ATION 08/26/2024 [facility] DATE CREATED AUTHOR AUTHOR'S ORGANIZ ATION 08/27/2024 [facility] Reason for Visit (unrecogniz ed section and content) Reason Comments Miko Berenice is here today to discuss reconstruction to her right breast. She had a mastectomy on 01/20/93. She is tired of her prosthesis being uncomfortable. Reason Comments Follow-up Right breast reconst ruction on 07/09/22. Reason Comments Pre-op Exam Right breast reconst ruction on 07/09/22. Pre and post op instructions reviewed and signed. Reason Comments Post Op Visit Right breast reconst ruction with salesforce consultant on 07/09/22. She complains of soreness, 7/10 [...] recheck Reason Onset Date Comments Results 11/25/2023 Reason Comments Hip Pain Care Teams (unrecognized sec tion and content) Maintenance Specialist Relationship Specialty Start Date End Date Shaikh Kerry Villagran MD [address] [place] [phone] PCP - General Internal Medicine 05/20/22 Maintenance Specialist Relationship Specialty Start Date End Date Shaikh Kerry Villagran MD [address] [place] [phone] PCP - General Internal Medicine 05/20/22 Maintenance Specialist Relationship Specialty Start Date End Date Shaikh Kerry Villagran MD [address] [place] [phone] PCP - General Internal Medicine 05/20/22 Maintenance Specialist Relationship Specialty Start Date End Date Shaikh Kerry Villagran MD [address] [place] [id number] PCP - General Internal Medicine 05/20/22 Maintenance Specialist Relationship Specialty Start Date End Date Shaikh Kerry Villagran MD [address] [place] [phone] PCP - General Internal Medicine 05/20/22 Maintenance Specialist Relationship Specialty Start Date End Date Shaikh Kerry Villagran MD [address] [place] [phone] PCP - General Internal Medicine 05/20/22 Team [...] November 01, 2023 End: November 01, 2023 Maintenance Specialist Relationship Specialty Start Date End Date Trino Montiel MD [address] [place] [address] PCP - General 04/28/13 Team Status: Inactive [...] January 31, 2024 End: January 31, 2024 Team Status: Inactive Member Role Status Dates Shaikh Tyshawn MD Primary Care Provider Active Start: May 08, 2024 End: May 08, 2024 Susanne Jordan APRN Attending Provider Active Start: May 08, 2024 End: May 08, 2024 Maintenance Specialist Relationship Specialty Start Date End Date Shaikh Villagran MD [address] [place] [address] PCP - Jason ACOSTA 05/14/24 Trino Montiel MD [address] [place] [address] PCP - General Family Medicine 07/11/24 Debbi Alicia NP [address] [place] [address] Nurse Practitioner Family Medicine 07/11/24 Maintenance Specialist Relationship Specialty Start Date End Date Shaikh Villagran MD [address] [place] [address] PCP - Jason ACOSTA 05/14/24 Trino Montiel MD [address] [place] [address] PCP - General Family Medicine 07/11/24 Debbi Alicia NP [address] [place] [address] Nurse Practitioner [facility] 07/11/24 Scheduled Active and Recently Administ ered Medications [...] BE BASED ON THE PRIMARY CLINICAL RECORDS. [employer] provides no warranty or guarantee of the accuracy or completeness of information in this document.
== END 2024-08-31 12:51 | disposition home or self-care (01) ==
LOC: PM 12:51
PROVIDERS: Visit Provider Nurse Practitioner
DX: M48.062 Spinal stenosis, lumbar region with neurogenic claudication (principal); M53.3 Sacrococcygeal disorders, not elsewhere classified; M47.816 Spondylosis without myelopathy or radiculopathy, lumbar region; M46.1 Sacroiliitis, not elsewhere classified
CPT/HCPCS: G0463

== ENCOUNTER 2024-11-30 13:12 | Outpatient (OUT) | payer MEDICARE, OTHER, SELFPAY ==
--- NOTE | 2024-11-30 13:29 | PM.CN ---
Consult Note: HPI Data of Consult Patient: known to practice within the last 3 years Requesting Physician: Beth Morales NP Primary Care Provider: DEBBI SMITH Consult Narrative Reason for consult: f/u Narrative: Berenice Nolasco a pleasant 73 year old female presents for evaluation and management of low back pain. ADELSO 24% with limitations in standing, walking, sleeping, lifting, and completing ADLs. utilizing celebrex or ibuprofen PRN with relief. Patient has completed >6 weeks of guided home exercise program and/or formal physical therapy program without relief of their symptoms.?I have reviewed the imaging of the lumbar spine and no red flags were identified.? The imaging reveals radiographic findings consistent with lumbar facet arthropathy, lumbar stenosis, ddd, and facet arthropathy. also has bilateral hip OA. recently underwent bilateral sij injection with 70% improvement in pain greater than 3 months. pain today 2/10 increasing to 6/10 in the eveningsand while sleeping. cc:: CC: Beth Morales NP Review of Systems ROS Status of ROS 10 or more systems reviewed and unremarkable except as noted in history and below Musculoskeletal Reports: back pain and joint pain PFSH PFSH Medical History Osteoarthritis ?M19.90 - Unspecified osteoarthritis, unspecified site (ICD-10) H/O malignant neoplasm of breast ?Z85.3 - Personal history of malignant neoplasm of breast (ICD-10) Acid reflux ?K21.9 - Gastro-esophageal reflux disease without esophagitis (ICD-10) Diabetes ?E11.9 - Type 2 diabetes mellitus without complications (ICD-10) Sleep apnea ?G47.30 - Sleep apnea, unspecified (ICD-10) High cholesterol ?E78.00 - Pure hypercholesterolemia, unspecified (ICD-10) Surgical History S/P herniorrhaphy ?Z98.890 - Other specified postprocedural states (ICD-10) ?Z87.19 - Personal history of other diseases of the digestive system (ICD-10) H/O mastectomy ?Z90.10 - Acquired absence of unspecified breast and nipple (ICD-10) H/O arthroscopy of shoulder ?Z98.890 - Other specified postprocedural states (ICD-10) H/O arthroscopy of knee ?Z98.890 - Other specified postprocedural states (ICD-10) H/O bladder repair surgery ?Z98.890 - Other specified postprocedural states (ICD-10) H/O: hysterectomy ?Z90.710 - Acquired absence of both cervix and uterus (ICD-10) H/O breast reconstruction ?Z98.890 - Other specified postprocedural states (ICD-10) Social History Smoking status: Never smoker Meds Home Medications and Allergies Home Medications ?Medication ?Instructions ?Recorded ?Confirmed ?Type aspirin 81 mg tablet,delayed 81 mg PO DAILY 05/31/23 08/21/24 History release (Adult Low Dose Aspirin) calcium 600 mg (as 1 tab PO DAILY 05/31/23 08/21/24 History carbonate)-vitamin D3 5 mcg (200 unit) tablet (Calcium 600 + D(3)) citalopram 20 mg tablet 30 mg PO DAILY 05/31/23 08/21/24 History esomeprazole magnesium 40 mg 40 mg PO DAILY 05/31/23 08/21/24 History capsule,delayed release (Nexium) famotidine 20 mg tablet 20 mg PO DAILY 05/31/23 08/21/24 History fesoterodine 8 mg tablet,extended 8 mg PO DAILY 05/31/23 08/21/24 History release 24 hr flaxseed oil 1,000 mg capsule 1,000 mg PO DAILY 05/31/23 08/21/24 History lactobacillus combination no.4 3 3,000 mmu cells PO DAILY 05/31/23 08/21/24 History billion cell capsule (Probiotic) levothyroxine 50 mcg capsule 50 mcg PO DAILY 05/31/23 08/21/24 History melatonin 10 mg capsule 10 mg PO DAILY 05/31/23 08/21/24 History multivitamin (Daily Multi-Vitamin 1 tab PO DAILY 05/31/23 08/21/24 History tablet) semaglutide 0.25 mg or 0.5 mg (2 0.25 mg subcut QWEEK 05/31/23 08/21/24 History mg/3 mL) subcutaneous pen injector (Ozempic) simvastatin 20 mg tablet 20 mg PO DAILY 05/31/23 08/21/24 History celecoxib 100 mg capsule mg 06/09/24 History Allergies Allergy/AdvReac Type Severity Reaction Status Date / Time Penicillins Allergy rash/itchin Verified 08/21/24 10:06 g Sulfa (Sulfonamide Allergy Rash Verified 08/21/24 10:06 Antibiotics) acetaminophen (From Percocet) AdvReac erythema Verified 08/21/24 10:06 oxycodone (From Percocet) AdvReac erythema Verified 08/21/24 10:06 Exam Constitutional Documenting provider has reviewed patient's vital signs: yes Common normals: no apparent distress, oriented x3, healthy appearing, alert and well nourished General appearance: cooperative HENMT Common normals: normocephalic, hearing grossly normal bilaterally and moist oral mucous membranes Head and scalp: normocephalic Eye Common normals: PERRL Pupil: PERRL Neck & C-Spine Common normals: full ROM General: normal visual inspection Chest Common normals: inspection of chest normal Respiratory Common normals: normal respiratory effort, no retractions and no use of accessory muscles Back & Pelvis Lumbar spine/lower back: ROM limited and pain with ROM Sacroiliac joints: SI joint(s) abnormal Other: bilateral sij positive rox(patricks), gaenslens, thigh thrust, compression test tenderness notable over bilateral GTB Neuro Common normals: oriented x3, CN's II-XII intact bilaterally, moves all extremities, no focal motor deficits, no sensory deficits noted and deep tendon reflexes 2+ bilaterally Sensorium/orientation: alert Motor exam: strength 5/5 throughout and no movement abnormalities noted Psych Common normals: mental status grossly normal, thought process normal, cooperative, affect normal, speech normal and activity/motor behavior normal Speech: normal speech Thought process: normal thought process Results Additional Findings Additional findings: If on a controlled substance or opioids, I have checked an [place] report on this patient and there are no aberrancies noted in the prescribing history.??If on a controlled substance or opioid a drug screen was completed and reviewed within the last year, and if there has not been a drug screen completed we ordered one today to monitor higher risk, state monitored pain medication use. As part of providing excellent, safe, comprehensive care, the following was completed at our patient's visit: 1. A medication reconciliation and review to ensure accurate knowledge of current/active medications, including asking our patients to inform us about any [id number] medications or herbal remedies/nutritional supplements/alternative remedies. 2. A review to specifically ensure our patients have had annual screening for screening for depression, screening for tobacco use, and screening for unhealthy alcohol use. For concerning screenings had a discussion with the patient, provided patient education, and recommended follow-up with primary care provider when appropriate. If patient noted with a risk of falling, they received education on strength, gait, and balance training to prevent future risk of falling. Portions of this note may have been carried over from the previous visit and updated as appropriate. Please note this office utilizes paper charting in addition to the electronic medical record. A list of current medications, vitals, and PMH is available there as the clinical staff outside of myself do not have access to [facility] charting during the clinic day operations. As part of providing quality comprehensive care the current medications, vitals, and PMH were reviewed in the paper chart. Assessment and Plan Assessment and Plan (1) Sacroiliitis: (2) Greater trochanteric bursitis: (3) Lumbar spondylosis: (4) Lumbar stenosis with neurogenic claudication: Plan 74 year old female with longstanding low back pain secondary to lumbar DDD, lumbar spondylosis, sacroiliitis, and bilateral GT bursitis who has failed > 6 weeks of PT and provider guided HEP, heat, ice, tylenol and NSAIDs. imaging reviewed. medications reviewed, no changes at this time. repeat bilateral SIJ injection under fluoroscopy when pt ready as discussed today. could benefit from bilateral GTB injections as well.
--- OUTSIDE RECORDS SUMMARY | 2024-11-30 13:29 | XMS_ITS | CCD ---
Author Organization [facility] Care Team Providers Care Warehouse Order Filler Name Role Phone NANCY MARTINEZ Unavailable Unavailable NANCY MARTINEZ Unavailable Unavailable TRINO MONTIEL~[id number] UNKNOWN Unavailable Unavailable GRUPO BROUSSARD Unavailable Unavailable ND Procedure Practitioner Unavailab le ADAM SKINNER Surgeon Unavailable ADAM SKINNER Admitting Unavailable NADERER, TRINO Primary Care Unavailable OLIVIAR, TRINO Referring Unavailable ADAM SKINNER Attending Unavailable LASHA BAKER Surgeon Unavailable ND Procedure Practitioner Unavailab le Tyshawn ADAMSON, Shaikh Kerry Primary Care Provider Shaikh Kerry Villagran MD Primary Care Provider SHAIKH KERRY VILLAGRAN Primary Care Unavailab le GHAZOUL, APOLINAR Admitting Unavailable GHAZOUL, APOLINAR Attending Unavailable GHAZOUL, APOLINAR Referring Unavailable GHAZOUL, APOLINAR Attending Unavailable GHAZOUL, APOLINAR Referring Unavailable [facility]uno [facility] Primary Care Unavailab le [facility] Primary Care Unavailab le SELF, SELF Referring Unavailable GHAZOUL, APOLINAR Attending Unavailable PADILLAWLEAH [facility] Primary Care Unavailab le GHAZOUL, APOLINAR Referring Unavailable GHAZOUL, APOLINAR Attending Unavailable PADILLAWJACIEL, [facility] Primary Care Unavailab le SELF, SELF Referring Unavailable GHAZOUL, APOLINAR Attending Unavailable PADILLAWLEAH [facility] Primary Care Unavailab le SELF, SELF Referring Unavailable GHAZOUL, APOLINAR Attending Unavailable TYSHAWN, [facility] Primary Care Unavailab le SELF, SELF Referring Unavailable GHAZOUL, APOLINAR Attending Unavailable [facility]UCK[facility], FREED HAMIZUL Primary Care Unavailab le SELF, SELF Referring Unavailable GHAZOUL, APOLINAR Attending Unavailable FAWWAD, FREED HAMIZUL Primary Care Unavailab le SELF, SELF Referring Unavailable GHAZOUL, APOLINAR Attending Unavailable FAWWAD, [facility] Primary Care Unavailab le SELF, SELF Referring Unavailable GHAZOUL, APOLINAR Attending Unavailable FAWWAD, [facility] Primary Care Unavailab le SELF, SELF Referring Unavailable GHAZOUL, APOLINAR Attending Unavailable FAWWAD, [facility] Primary Care Unavailab le SELF, SELF Referring Unavailable GHAZOUL, APOLINAR Attending Unavailable FAWWAD, [facility] HAMIZUL Primary Care Unavailab le SELF, SELF Referring Unavailable GHAZOUL, APOLINAR Attending Unavailable FAWWAD, [facility] Primary Care Unavailab le SELF, SELF Referring Unavailable GHAZOUL, APOLINAR Attending Unavailable FAWWAD, [facility] Primary Care Unavailab le SELF, SELF Referring Unavailable GHAZOUL, APOLINAR Attending Unavailable FAWWAD, [facility] HAMIZUL Primary Care Unavailab le FAWWAD, [facility] HAMIZUL Primary Care Unavailab le FAWWAD, [facility] HAMIZUL Primary Care Unavailab le SELF, SELF [...] Unavailable [facility], DR ADAM Castellanos Attending Unavailable [place], DR ADAM Castellanos Consulting Unavailable FAWWAD, FREED H Primary Care Unavailable ROLAND, DR TY Marquez Consulting Unavailable [place], DR ADAM Castellanos Attending Unavailable WEST, DR [...] Jordan Unavailable Dr. Apolinar Henry Attending Provider [phone] Adriana Lyn Unavailable RENO Jordan Attending Provider [phone] MD Dorothea Villagran Primary Care Provider Dr. Apolinar Henry Attending Provider Dr. Dorothea Villagran Primary Care Provider Dr. Dorothea Villagran Referring Provider [phone] Dr. Apolinar Henry Other Provider Tyshawn, Primary Care Unavailable Susanne Jordan R Attending Unavailable Susanne Jordan R Admitting Unavailable RAMAKRISHNA LÓPEZ I Attending Unavailable TRINO MONTIEL Referring Unavailable TRINO MONTIEL Primary Care Unavailable ADAM SKINNER Attending Unavailable Shaikh Villagran MD Unavailable Trino Montiel MD Primary Care Provider Debbi Alicia NP Unavailable SHAIKH VILLAGRAN Attending Unavailable SHAIKH VILLAGRAN Attending Unavailable SHAIKH VILLAGRAN Attending Unavailable CECILE COLLINS Attending Unavailable DEBBI ALICIA Attending Unavailaurelio Evans SUPERVISOR PIPELINE, Elizabeth Unavailable Tyshawn ADAMSON, [facility] Primary Care Provider Tyshawn ADAMSON, [facility] Rocio Mack MD, Vanessa Hernandez Attending Unavailable Tyshawn ADAMSON, [facility] Rocio Mack MD, Vanessa Hernandez Attending Unavailable [facility], Kevin Workman Attending Shrutiv bethel Villagran MD, [facility] Rocio Villagran MD, [facility] Rocio Sagastume APRNZEINA, Kevin Workman Attending Unav bethel Yolettedeangelo BOJORQUEZ-ZEINA, Kevin Workman Attending Ela Villagran MD, [facility] Rocio Villagran MD, [facility] Rocio Betancourt MD, Jovan Cagle Attending Rocio Villagran MD, [facility] Rocio Betancourt MD, Jovan Cagle Attending Rocio Villagran MD, [facility] Rocio Mack MD, Vanessa Hernandez Attending Unavailable ALI, IMRAN I Referring Unavailable NADERER, TRINO Primary Care Unavailable ALI, IMRAN I Referring Unavailable NADERER, TRINO Primary Care Unavailable ALI, IMRAN I Referring Unavailable NADERER, TRINO Primary Care Unavailable NORMA DEWITT Attending Unavailable NADERER, TRINO Referring Unavailable NADERER, TRINO Primary Care Unavailable NADERER, TRINO Referring Unavailable NADERER, TRINO Primary Care Unavailable SABRINA COLE Attending Unavailable NADERER, TRINO Referring Unavailable NADERER, TRINO Primary Care Unavailable [facility] Primary Care Unavailable Apolinar Henry Attending Unavailable Shaik Villagranh Referring Unavailable Apolinar Henry Attending Unavailable Tyshawn, Freed Referring Unavailable Tyshawn, [facility] Primary Care Unavailable Apolinar Henry Attending Unavailable Tyshawn, Freed Referring Unavailable [facility], [facility] Primary Care Unavailable [facility] Primary Care Unavailable [facility] Referring Unavailable Ghazoul, Apolinar Attending Unavailable Ghazoul, Apolinar Attending Unavailable [facility] Referring Unavailable [facility] Primary Care Unavailable Ghazoul, Apolinar Attending Unavailable [facility] Primary Care Unavailable [facility] Referring Unavailable Ghazoul, Apolinar Attending Unavailable [facility] Referring Unavailable [facility] Primary Care Unavailable [facility] Referring Unavailable Ghazoul, Apolinar Attending Unavailable [facility] Primary [facility] Referring Unavailable Ghazoul, Apolinar Attending Unavailable [facility] Primary Care Unavailable Ghazoul, Apolinar Referring Unavailable Ghazoul, Apolinar Attending Unavailable [facility] Primary Care Unavailable Ghazoul, Apolinar Consulting Unavailable Ghazoul, Apolinar Attending Unavailable Ghazoul, Apolinar Consulting Unavailable [facility] Primary Care Unavailable Ghazoul, Apolinar Referring Unavailable Ghazoul, Apolinar Attending Unavailable Ghazoul, Apolinar Attending Unavailable [facility] Primary Care Unavailable [facility] Referring Unavailable Ghazoul, Apolinar Attending Unavailable [facility] Primary Care Unavailable [facility] Referring Unavailable Ghazoul, Apolinar Attending Unavailable [facility] Primary Care Unavailable Ghazoul, Apolinar Attending Unavailable [facility] Referring Unavailable [facility] Referring Unavailable Ghazoul, Apolianr Attending Unavailable [facility] Primary Care Unavailable Ghazoul, Apolinar Attending Unavailable [facility] Primary Care Unavailable Ghazoul, Apolinar Referring Unavailable Ghazoul, Apolinar Attending Unavailable [facility] Primary Care Unavailable NADCARINRTRINO Primary Care Unavailable KEVIN SAGASTUME Referring Unavailable Allergies Allergy Classification Reported Allergen(s) Allergy Type Date of Onset Reaction(s) Facility Acetaminophen (1 source) Acetaminophen Drug Allergy 01-31-20 [facility] Opioid Agonists (1 source) oxyCODONE Drug Allergy 01-31-20 24 Erythema [facility] Penicillins (antibiotic) (1 source) Penicillins Drug [facility] (1 source) Sulfonamides (Antibiotic) Drug Allergy 01-31-20 24 Itching [facility] (2 sources) cortisone; Translations: [cortisone] Drug Allergy [facility] (20 sources) Penicillins; Translations: [penicillins] Propensity to adverse reactions (disorder) 09-16-19 13 Itching [facility] (1 source) sulfamethoxazole; Translations: [sulfamethoxazole] Drug Allergy [facility] (8 sources) Sulfonamides (Antibiotic) Drug allergy (disorder) 11-03-19 13 Itching [facility] Repository (16 sources) sulfaSALAzine; Translations: [SULFASALAZINE] Drug Allergy 12-08-19 17 [facility] (13 sources) Sulfonamides (Antibiotic) Propensity to adverse reactions to drug 09-16-19 13 [facility] (5 sources) Penicillin Drug Allergy Unknown [employer] Other (5 sources) Substance with sulfonamide structure and antibacterial mechanism of action (substance) Drug allergy Unknown [employer] Other (6 sources) Sulfonamides (Antibiotic) Allergy to substance 05-05-20 [facility] (4 sources) Acetaminophen; Translations: [acetaminophen] Drug Allergy 01-31-20 [facility] (4 sources) oxyCODONE; Translations: [oxycodone] Drug Allergy 01-31-20 24 [facility] (2 sources) Sulfonamides (Antibiotic) Drug allergy (disorder) 08-30-20 [facility] Repository (12 sources) Acetaminophen / oxyCODONE; Translations: [OXYCODONE-ACETAMIN OPHEN] Drug Allergy 03-02-20 24 Swelling [facility] Repository (9 sources) Penicillin G Procaine; Translations: [PENICILLIN G PROCAINE] Propensity to adverse reactions to drug (disorder) 09-02-20 23 Rash [facility] Repository (9 sources) Sulfamethoxazole / Trimethoprim; Translations: [SULFAMETHOXAZOLE-T RIMETHOPRIM] Drug Allergy 09-02-20 Other [facility] Repository (1 source) Acetaminophen / oxyCODONE; Translations: [Percocet] Drug Allergy [facility] Repository (1 source) Sulfonamides (Antibiotic); Translations: [sulfa drugs] Propensity to adverse reactions to drug (disorder) [facility] Repository Medications Current Medications Medication Drug [...] / collagen, hydrolyzed 740 mg oral capsule (6 sources) Vitamin C Start: 10-29-2023 take 1 capsule by mouth once daily Ascorbic Acid-Collagen (Collagen Plus Vitamin C) 125-740 mg capsule Active 1 CAP PO Daily October 29, 2023 12:00am aspirin 81 mg delayed release oral tablet (20 sources) Platelet Aggregation Inhibitor, Nonsteroidal Anti-inflammatory Drug Start: 11-13-2024 Aspirin (Adult Low Dose Aspirin) 81 mg tablet,delayed release (DR/EC) Active 81 MG PO Daily November 13, 2024 12:00am Start: 05-05-2023 End: 01-31-2024 take 1 tablet by mouth once daily Aspirin 81 mg tablet,delayed release (DR/EC) Discontinued 81 MG PO Daily October 29, 2023 12:00am January 31, 2024 12:27pm Start: 05-05-2023 End: 06-16-2022 take 81 mg [...] CAP PO DAILY May 05, 2023 12:00am Calcium Citrate / Vitamin D (1 source) Start: 05-08-2024 calcium + vitamin d Active PO May 07, 2024 11:00pm calcium citrate 600 mg and vitamin D3 (Citrical & Minerals + Vit D) 600-200 MG-UNIT tablet (8 sources) take 1 tablet by mouth once daily in the morning calcium citrate 600 mg and vitamin D3 (Citrical & Minerals + Vit D) 600-200 MG-UNIT tablet Take 1 tablet by mouth in the morning. Active citalopram 20 mg oral tablet (20 sources) Serotonin Reuptake Inhibitor Start: 10-11-2024 End: 04-09-2025 take 1.5 tablets by mouth once daily citalopram (CeleXA) 20 MG tablet Indications: Recurrent major depressive disorder, in full remission (CMS/HCC) Take 1.5 tablets (30 mg) by mouth Daily 135 tablet 1 10/11/2024 04/09/2025 Active Start: 04-11-2024 End: 10-09-2024 take 1.5 tablets by mouth once daily citalopram (CeleXA) 20 MG tablet Indications: Recurrent major depressive disorder, in full remission (CMS/HCC) Take 1.5 tablets (30 mg) by mouth Daily 135 tablet 1 04/11/2024 10/09/2024 Discontinued (Reorder) Start: 10-29-2023 Citalopram 20 mg tablet Active 30 MG PO Daily October 29, 2023 12:00am Start: 05-05-2023 take 30 mg by mouth once daily Citalopram Active 30 MG PO Daily October 29, 2023 1:00am Start: 03-11-2022 End: 06-16-2022 citalopram 20 MG tablet take 1 and 1/2 tablet by mouth once daily 0 03/11/2022 Active Collagen (16 sources) Collagen 1000mg + Vitamin C qd Active COLLAGEN PO Take by mouth. 0 Active diclofenac sodium 0.01 mg/mg topical gel (8 sources) Nonsteroidal Anti-inflammatory Drug Start: 04-11-2024 diclofenac sodium (Voltaren Arthritis Pain) 1 % gel Indications: Left hip pain 1 application to affected area three times a day 50 g 04/11/2024 Active esomeprazole 40 mg delayed release oral capsule (20 sources) Proton Pump Inhibitor Start: 04-11-2024 End: 10-08-2024 take 1 capsule by mouth once daily Esomeprazole Magnesium 40 mg capsule,delayed release(DR/EC) Active 40 MG PO Daily August 07, 2024 12:00am Start: 05-05-2023 take 40 mg by mouth once daily Esomeprazole Magnesium Active 40 MG PO DAILY May 05, 2023 12:00am Start: 06-09-2022 take 1 capsule by [facility] once daily in the [...] Receptor Antagonist Start: 05-05-2023 End: 07-11-2024 take 1 tablet by mouth once daily at bedtime as needed Famotidine 20 mg tablet Active 20 MG PO Daily at bedtime as needed October 29, 2023 12:00am 24 hr fesoterodine fumarate 8 mg extended release oral tablet (20 sources) Start: 05-05-2023 take 1 tablet by mouth once daily Fesoterodine 8 mg tablet extended release 24 hr Active 8 MG PO Daily October 29, 2023 12:00am Flax Seed Oil (5 sources) Flax Seed Oil 1200mg qd Active ibuprofen 400 mg oral tablet (11 sources) Nonsteroidal Anti-inflammatory Drug take 1 tablet by mouth every six hours as needed ibuprofen 400 MG tablet Take 1 tablet by mouth every 6 hours as needed for Mild Pain. 0 Active L. Acidophilus/Bifid. Animalis (Daily Probiotic) 2.5 billion cell capsule (6 sources) Start: 10-29-2023 take 1 capsule by mouth once daily, then take 2.5 capsules by mouth once daily L. Acidophilus/Bifid. Animalis (Daily Probiotic) 2.5 billion cell capsule Active 1 CAP PO Daily October 29, 2023 1:00am Start: 10-29-2023 take 1 capsule by [facility] once daily, then take [...] oral tablet (20 sources) l-Thyroxi ne Start: 05-05-2023 End: 04-09-2025 take 1 tablet by mouth once daily levothyroxine (Synthroid, Levoxyl) 50 MCG tablet Indications: Hypothyroidism, unspecified type (CMS/HCC) Take 1 tablet (50 mcg) by mouth Daily 90 tablet 1 10/11/2024 04/09/2025 Active take 1 tablet by mouth once anai y Levothyroxine Sodium 50 MCG take 1 tablet by mouth once daily Oral for 90 Days Active levothyroxine 50 MCG tablet daily every morning. 0 Active linseed oil 1000 mg oral capsule (20 sources) Start: 10-29-2023 take 1 capsule by mouth once daily Flaxseed Oil 1,000 mg capsule Active 1000 MG PO Daily October 29, 2023 12:00am administer with a meal Flaxseed, Linsee d, (Flax Seed Oil) 1000 MG capsule 1 capsule daily. 0 Active melatonin 10 mg oral tablet (17 sources) Start: 05-05-2023 take 10 mg by mouth at bedtime Melatonin Active 10 MG PO BEDTIME May 05, 2023 12:00am MELATONIN PO Delmar e by mouth daily. 0 Active Multiple Vitamins-Minerals (Multivitamin Women 50+) tablet (8 sources) take 1 tablet by mouth in the morning Multiple Vitamins-Minerals (Multivitamin Women 50+) tablet Take 1 tablet by mouth in the morning. Active Rmekocja-Pgp-Kp-Lycopen-L utein (Complete Mv Adult 50 Plus) 0.4 mg-300 mcg- 250 mcg tablet (6 sources) Start: 023 take 1 tablet by mouth once daily Itdrsaro-Pbf-Bd-Lycopen- Lutein (Complete Mv Adult 50 Plus) 0.4 mg-300 mcg- 250 mcg tablet Active 1 TABLET PO DAILY May 05, 2023 12:00am multivitamin tablet (11 sources) take 1 tablet by mouth once daily multivitamin tablet Take 1 tablet by mouth daily. 0 Active polyethylene glycol 3350 09374 mg powder for oral solution (8 sources) Osmotic Laxative Start: 024 Polyethylene Glycol 3350 (Miralax) 17 gram/dose powder Active 17 GM PO Daily as needed October 29, 2023 12:00am MiraLax Active Probiotic (3 sources) Probiotic Active Semaglutide (20 sources) Start: 11-13-2024 Semaglutide (O zempic) 0.25 mg or 0.5 mg (2 mg/3 mL) pen injector Active 0.5 MG SUBCUT every week November 13, 2024 2:37pm Start: 11-13-2024 End: 11-13-2024 Semaglutide (Ozempic) 0.25 m g or 0.5 mg (2 mg/3 mL) pen injector Discontinued 0.25 MG SUBCUT every week November 13, 2024 1:44pm November 13, 2024 2:37pm Start: 08-07-2024 End: 11-13-2024 Semaglutide (Ozempic) 0.25 m g or 0.5 mg (2 mg/3 mL) pen injector Discontinued 0.5 MG SUBCUT every week 9 84 August 07, 2024 3:35pm November 13, 2024 1:45pm Start: 05-08-2024 End: 08-07-2024 Semaglutide (Ozempic) 0.25 m g or 0.5 mg (2 mg/3 mL) pen injector Discontinued 0.25 MG SUBCUT every week 4.416 84 May 08, 2024 1:07pm August 07, 2024 3:36pm Start: 05-08-2024 Semaglutide (O zempic) 0.25 mg or 0.5 mg (2 mg/3 mL) pen injector Active 0.25 MG SUBCUT every week 4.416 84 May 08, 2024 2:07pm Start: 01-31-2024 End: 05-08-2024 Semaglutide (Ozempic) 0.25 m g or 0.5 mg (2 mg/3 mL) pen injector Discontinued 0.25 MG SUBCUT every week 4.416 84 January 31, 2024 2:57pm May 08, 2024 1:08pm Start: 01-31-2024 End: 05-08-2024 Semaglutide (Ozempic) 0.25 m g or 0.5 mg (2 mg/3 mL) pen injector Discontinued 0.25 MG SUBCUT every week 4.416 84 January 31, 2024 3:57pm May 08, 2024 2:08pm Start: 01-31-2024 Semaglutide (O zempic) 0.25 mg or 0.5 mg (2 mg/3 mL) pen injector Active 0.25 MG SUBCUT every week 4.416 January 31, 2024 3:57pm Start: 11-03-2023 End: 01-31-2024 Semaglutide (Ozempic) 0.25 m g or 0.5 mg (2 mg/3 mL) pen injector Discontinued 0.25 MG SUBCUT every week 4.784 November 03, 2023 8:55am January 31, 2024 2:59pm Start: 11-03-2023 End: 01-31-2024 Semaglutide (Ozempic) 0.25 m g or 0.5 mg (2 mg/3 mL) pen injector Discontinued 0.25 MG SUBCUT every week 4.78November 03, 2023 9:55am January 31, 2024 3:59pm Start: 11-03-2023 Semaglutide (O zempic) 0.25 mg or 0.5 mg (2 mg/3 mL) pen injector Active 0.25 MG SUBCUT every week 4.784 90 November 03, 2023 9:55am Start: 11-03-2023 End: 11-03-2023 Semaglutide (Ozempic) 0.25 m g or 0.5 mg (2 mg/3 mL) pen injector Discontinued 0.5 MG SUBCUT every week November 03, 2023 8:54am November 03, 2023 8:57am Start: 11-03-2023 End: 11-03-2023 Semaglutide (Ozempic) 0.25 m g or 0.5 mg (2 mg/3 mL) pen injector Discontinued 0.5 MG SUBCUT every week November 03, 2023 9:54am November 03, 2023 9:57am Start: 10-29-2023 End: 11-03-2023 Semaglutide (Ozempic) 0.25 m g or 0.5 mg (2 mg/3 mL) pen injector Discontinued 0.25 MG SUBCUT every week October 29, 2023 12:00am November 03, 2023 8:54am Start: 10-29-2023 End: 11-03-2023 Semaglutide (Ozempic) 0.25 [...] 1.5 ml semaglutide 1.34 mg/ml pen injector (8 sources) inject 0.25 mg by subcutaneous injection every week semaglutide (Ozempic, 0.25 or 0.5 MG/DOSE,) 2 MG/1.5ML solution pen-injector Inject 0.25 mg under the skin 1 (one) time per week Active simvastatin 20 mg oral tablet (20 sources) HMG-CoA Reductase Inhibitor Start: 05-05-20 End: 01-31-20 take 1 tablet by mouth once daily Simvastatin 20 mg tablet Active 20 MG PO Daily October 29, 2023 12:00am 24 hr trospium chloride 60 [...] TABLET PO THREE TIMES A DAY 7 3 January 05, 2024 January 08, 2024 12:16am [...] 3 days. 10 tablet 0 06/30/2022 Active [id number] 200 actuat albuterol 0.09 mg/actuat metered dose [...] 07-09-2022 End: 07-09-2022 lactated ringers IV solution Ebbveel-Ifxv4-Sub brie Fumarate 600-125-18 mg-unit-mg tablet (1 source) Start: 10-29-2023 End: 05-08-2024 take 1 tablet by mouth once daily Iqtqbxk-Vkpx8-Acvo ous Fumarate 600-125-18 mg-unit-mg tablet Discontinued 1 TAB PO Daily October 29, 2023 12:00am May 08, 2024 12:28pm celecoxib 100 mg oral capsule (1 source) Nonsteroidal Anti-inflammatory Drug Start: 08-07-2024 End: 11-13-2024 Celecoxib 100 mg capsule Discontinued 100 MG PO as needed August 07, 2024 12:00am November 13, 2024 1:43pm cephalexin 500 mg oral capsule (5 sources) [...] 07/07/2022 Active clindamycin 300 mg oral capsule (6 sources) Lincosamide Antibacterial Start: 01-31-2024 End: 05-08-2024 take 1 capsule by mouth every eight hours Clindamycin Hcl 300 mg capsule Discontinued 300 MG PO Every 8 hours January 30, 2024 11:00pm May 08, 2024 12:29pm Start: 01-05-2024 take 300 mg by mouth every eight hours Clindamycin Hcl Active 300 MG PO Q8H January 05, 2024 12:00am fumarate (5 sources) Start: 10-29-2023 End: 05-08-2024 take 1 tablet by mouth once daily Wisqnln-Nuit8-Mgvmcwx Fumarate Discontinued 1 TAB PO Daily October 29, 2023 1:00am May 08, 2024 1:28pm Start: 10-29-2023 take 1 tablet by stone th once daily Bhnygfb-Ogji7-Cqmaalq Fumarate Active 1 TAB PO Daily October 29, 2023 1:00am Start: 10-29-2023 take 1 tablet by stone th once daily Wadonxp-Ther7-Pfidfqw Fumarate Active 1 TAB PO Daily October 29, 2023 12:00am furosemide 20 mg oral tablet (6 sources) Loop Diuretic Start: 11-01-2023 End: 01-31-2024 take 1 tablet by mouth once daily as needed Furosemide (Lasix) 20 mg tablet Discontinued 20 MG PO Daily as needed November 01, 2023 12:00am January 31, 2024 12:28pm 2 ml gentamicin 40 mg/ml injection (1 [...] 1:00am Start: 10-29-2023 take 1 tablet by tsone th once daily Multivitamin Active 1 TAB PO Daily October 29, 2023 12:00am Multivitamin Act vera Multivitamin tablet (1 source) Start: 10-29-2023 End: 01-31-2024 take 1 tablet by mouth once daily Multivitamin tablet Discontinued 1 TAB PO Daily October 29, 2023 12:00am January 31, 2024 12:28pm omeprazole 40 mg delayed release oral capsule (11 sources) Proton Pump Inhibitor Start: 10-29-2023 End: 08-07-2024 Omeprazole 40 mg capsule,delayed release(DR/EC) Discontinued 40 MG PO Daily October 29, 2023 12:00am August 07, 2024 2:34pm take 30 minutes before morning meal. take 1 capsule by mouth once cydney ly Omeprazole 40 MG 1 capsule 30 minutes before morning meal Orally Once a day Active Oxidized Cellulose (SURGICEL) topical pad (1 source) Start: 07-09-2022 End: 07-09-2022 Oxidized Cellulose (SURGICEL) topical pad polyethylene glycol 3350 414517 mg / potassium chloride 2970 mg / sodium bicarbonate 6740 mg / sodium chloride 5860 mg / sodium sulfate 13500 mg powder for oral solution (1 source) [...] unspecified female breast] Onset: 11-03-2012 05-20-2022 Chronic Diabetes mellitus without complication (2 sources) Impaired [...] pain, unspecified] Onset: 05-20-2022 05-20-2022 Episodic Osteoarthritis (20 sources) Degenerative joint disease involving multiple joints; Translations: [Polyosteoarthritis, unspecified] Onset: 11-03-2012 05-20-2022 Chronic Other aftercare (1 source) Encounter for breast reconstruction following mastectomy; Translations: [Encounter for breast reconstruction following mastectomy] Onset: 10-16-2024 Episodic Other connective tissue disease (2 sources) Trochanteric bursitis, right hip; Translations: [Trochanteric bursitis, right hip] Onset: 06-26-2024 Episodic Other connective tissue disease (2 sources) Trochanteric bursitis, left hip; Translations: [Trochanteric bursitis, left hip] Onset: 06-26-2024 Episodic Other connective tissue disease (1 source) Leg swelling symptom Onset: 10-04-2024 Episodic Other diseases of bladder and urethra [...] nutritional; endocrine; and metabolic disorders (11 sources) Body mass index 30+ - obesity; Translations: [Body mass index (BMI) 37.0-37.9, adult] 11-01-2023 Chronic Other nutritional; endocrine; and metabolic disorders (16 sources) Obesity; Translations: [Obesity, unspecified] 10-29-2023 Chronic Other nutritional; endocrine; and metabolic disorders (10 sources) Obesity, unspecified; Translations: [Obesity, unspecified] Chronic Other nutritional; endocrine; and metabolic disorders (2 sources) Body mass index (BMI) 34.0-34.9, adult Chronic Other nutritional; endocrine; and metabolic disorders (1 source) Obese class I; Translations: [Body mass index (BMI) 34.0-34.9, adult] Chronic Other nutritional; endocrine; and metabolic disorders (6 sources) Body mass index (BMI) 32.0-32.9, adult; Translations: [Body Mass Index 32.0-32.9, adult] 11-01-2023 Chronic Residual codes; unclassified (20 sources) Obstructive sleep apnea syndrome; Translations: [Obstructive sleep apnea (adult) (pediatric)] Onset: 11-29-2023 10-29-2023 Chronic Residual codes; unclassified (8 sources) Obstructive sleep apnea (adult) (pediatric); Translations: [Obstructive sleep apnea (adult)(pediatric)] Chronic Residual codes; unclassified (16 sources) Dependence on continuous positive airway pressure ventilation; Translations: [Dependence on other enabling machines and devices] Onset: 01-06-2024 11-01-2023 Chronic Residual codes; unclassified (2 sources) Hypersomnia; Translations: [Hypersomnia, unspecified] 05-17-2024 Chronic Residual codes; unclassified (3 sources) Acquired absence of right breast and [...] Translations: [Other specified postprocedural states] 12-22-2023 Episodic Respiratory failure; insufficiency; arrest (adult) (1 source) Respiratory failure; insufficiency; arrest (adult) Onset: 10-04-2024 Spondylosis; intervertebral disc disorders; other back problems (1 source) Other intervertebral disc degeneration, lumbar region; Translations: [Other intervertebral disc degeneration, lumbar region] Onset: 04-12-2024 Chronic Spondylosis; intervertebral disc disorders; other back problems (18 sources) Sacrococcygeal disorders, not elsewhere classified; Translations: [...] malignant neoplasm of breast] Onset: 05-20-2022 Episodic Conditions associated with dizziness or vertigo (1 source) Dizziness and giddiness; Translations: [Dizziness and giddiness] Onset: 04-12-2024 Episodic Epilepsy; convulsions (2 sources) Unspecified convulsions; Translations: [Unspecified convulsions] Onset: 11-18-2023 Episodic Genitourinary symptoms and ill-defined conditions (8 sources) History of urinary tract infection; Translations: [Personal history of urinary (tract) infections] Onset: 01-06-2024 01-06-2024 Episodic Immunizations and screening for infectious disease (1 source) Other specified abnormal immunological findings in serum; Translations: [Other specified abnormal immunological findings in serum] Onset: 04-12-2024 Episodic Joint disorders and dislocations; trauma-related (20 sources) Tear of medial meniscus of knee; Translations: [Other tear of medial meniscus, current injury, unspecified knee, initial encounter] Onset: 02-27-2020 05-20-2022 Episodic Nonmalignant breast conditions (20 sources) Hypertrophy of breast; Translations: [Hypertrophy of breast] Onset: 12-22-2023 05-05-2023 Episodic Nutritional deficiencies (1 source) Iron deficiency; Translations: [Iron deficiency] Onset: 04-12-2024 Episodic Other aftercare (1 source) Encounter for therapeutic drug level monitoring; Translations: [Encounter for therapeutic drug level monitoring] Onset: 04-12-2024 Episodic Other diseases of veins and lymphatics (8 sources) Venous insufficiency of leg; Translations: [Venous insufficiency (chronic) (peripheral)] Onset: 01-06-2023 11-29-2023 Episodic Other diseases of veins and lymphatics (1 source) Venous insufficiency (chronic) (peripheral); Translations: [Venous insufficiency (chronic) (peripheral)] Onset: 01-06-2023 Episodic Other ear and sense organ disorders (8 sources) Tinnitus; Translations: [Tinnitus, unspecified ear] Onset: 09-02-2023 09-02-2023 Episodic Other lower respiratory disease (2 sources) Snoring; Translations: [Snoring] 05-17-2024 Episodic Other nervous system disorders (2 sources) Ataxia, unspecified; Translations: [Ataxia, unspecified] Onset: 03-02-2024 Episodic Other non-traumatic joint disorders (4 sources) Pain in right hip; Translations: [PAIN IN RIGHT HIP] Onset: 01-13-2022 Episodic Other non-traumatic joint disorders (1 source) Pain in left hip; Translations: [PAIN IN LEFT HIP] Onset: 01-14-2022 Episodic Other non-traumatic joint disorders (10 sources) Hip pain; Translations: [Pain in left hip] Onset: 04-11-2024 04-11-2024 Episodic Other screening for suspected conditions (not mental disorders or infectious disease) (6 sources) Patient encounter status; Translations: [Encounter for screening for malignant neoplasm of colon] Onset: 07-11-2024 07-11-2024 Episodic Residual codes; unclassified (20 sources) Acquired absence of breast; Translations: [Acquired absence of right breast and nipple] Onset: 05-20-2022 Episodic Residual codes; unclassified (19 sources) History of breast reconstruction; Translations: [Other specified postprocedural states] Onset: 10-21-2022 Episodic Residual codes; unclassified (2 sources) Inadequate sleep hygiene; Translations: [Inadequate sleep hygiene] 05-17-2024 Episodic Unclassified (1 source) CONTACT W/AND (SUSP) EXPOS COVID-19; Translations: [CONTACT W/AND (SUSP) EXPOS COVID-19] Onset: 03-02-2022 Results Test Name Value Interpretation Reference Range Facility Plastic Surgery Visit Report on 11-14-2024 Plastic Surgery Visit Report [facility] Plastic Reconstructive Surgery [address], [address] [place] [address] OFFICE VISIT Date of Service: 11/14/24 MR#: [id number] Acct: [id number] Name: BERENICE NOLASCO Rep #: [id number] : 1950 Provider: Dr. Apolinar flores MD Age/Sex: 74/F Location: [facility] Status: Signed Intake Vital Signs 10/31/24 16:01 11/14/24 15:10 Height 5 ft 6 in 5 ft 6 in Weight: 198 lb 2 oz 198 lb BMI 31.9 31.9 BP 138/80 H 146/83 H Blood Pressure Location Lt brachial Lt brachial Position Sitting Sitting Respiration 18 18 Pulse 71 83 Temp 98.7 F 99.2 F H Temp Source Temporal Temporal Pulse Oximetry (%) 93 98 Oxygen Delivery Method room air room air Intake Visit Reasons: 2 W FU Chief Complaint: nipple reconstruction post op Accompanied by: Is patient in pain?: No Allergies oxycodone (From Percocet) Allergy (Mild, Verified 11/14/24 15:11) Swelling Penicillins Allergy (Verified 11/14/24 15:11) Rash Sulfa (Sulfonamide Antibiotics) Allergy (Verified 11/14/24 15:11) Rash Medications ???Medication ???Instructions ???Recorded ???Confirmed ???Type ascorbic acid 30 mg-collagen, 1 tab PO DAILY 05/05/23 11/14/24 H istory hydrolyzed 833.3 mg tablet (Collagen Skin Renewal) aspirin 81 mg tablet,delayed 81 mg PO DAILY 05/05/23 11/14/24 H istory release calcium 600 mg (as 1 cap PO DAILY 05/05/23 11/14/24 H istory carbonate)-vitamin D3 12.5 mcg (500 unit) capsule (Calcium with Vit D3) citalopram 20 mg tablet 30 mg PO DAILY 05/05/23 11/14/24 H istory esomeprazole magnesium 40 mg 40 mg PO DAILY 05/05/23 11/14/24 H istory capsule,delayed release famotidine 20 mg tablet 20 mg PO QHS 05/05/23 11/14/24 His tory fesoterodine 8 mg tablet,extended 8 mg PO DAILY 05/05/23 11/14/24 H istory release 24 hr levothyroxine 50 mcg tablet 50 mcg PO DAILY 05/05/23 11/14/24 History melatonin 10 mg tablet 10 mg PO HS 05/05/23 11/14/24 Hist ory omowmrfi-rtr-hawig acid 0.4 1 tab PO DAILY 05/05/23 11/14/24 H istory mg-lycopene 300 mcg-lutein 250 mcg tablet (Complete Multivitamin Adult 50 Plus) semaglutide 0.25 mg or 0.5 mg (2 0.25 mg subcut TH 05/05/23 5 History mg/3 mL) subcutaneous pen injector (Ozempic) simvastatin 20 mg tablet 20 mg PO QHS 05/05/23 11/14/24 His tory Lactobacillus acidophilus 250 500 mmu cells PO DAILY 12/30/23 History million cell capsule (Probiotic Acidophilus) flaxseed oil 1,000 mg capsule 1,000 mg PO DAILY 12/30/23 5 History celecoxib 50 mg capsule (Celebrex) 50 mg PO .prn 07/26/24 11/14/24 History clindamycin HCl 300 mg capsule 300 mg PO TID 09/27/24 11/14/24 Hi story Have you fallen in the past year?: No Nurse's Note: pt is here with for post op no issues Subjective Details: Berenice comes in for recheck of the right nipple areolar reconstruction. She denies any problems. Objective Details: The nipple has reduced in projection. A few visible sutures are clipped. I have asked her to continue wearing the sponge when she has a bra in place otherwise she can resume normal activity. I did discuss tattooing with her. This would be done under local anesthetic. She is going on vacation in December and we discussed doing this when she returned. I also indicated that she could consider doing this through a artist woodblock if she chose. I will see her back prior to the procedure to further review instructions. We will obtain preauthorization for the proposed procedure. Coding Level of Care Code Global Post Op Diagnoses Acquired absence of right breast Z90.11 S/P breast reconstruction, right Z98.890 [facility] Medical History (Updated 07/26/24 @ [...] Mother Heart disease Father Heart disease Social H (more content not included)... [facility] Plastic Surgery Visit Report on 10-31-2024 Plastic Surgery Visit Report [facility] Plastic Reconstructive Surgery [address], [address] [place] [address] OFFICE VISIT Date of Service: 10/31/24 MR#: [id number] Acct: [id number] Name: BERENICE NOLASCO Rep #: [id number] : 1950 Provider: Dr. Apolinar flores MD Age/Sex: 74/F Location: [facility] Status: Signed Intake Vital Signs 10/10/24 14:32 10/31/24 16:01 Height 5 ft 6 in 5 ft 6 in Weight: 200 lb 198 lb 2 oz BMI 32.3 31.9 BP 139/86 H 138/80 H Blood Pressure Location Lt brachial Lt brachial Position Sitting Sitting Respiration 18 18 Pulse 70 71 Temp 97.5 F L 98.7 F Temp Source Oral Temporal Pulse Oximetry (%) 92 93 Oxygen Delivery Method room air room air Intake Visit Reasons: 3 W F/U Chief Complaint: nipple reconstruction post op Accompanied by: Is patient in pain?: No Allergies oxycodone (From Percocet) Allergy (Mild, Verified 10/31/24 16:10) Swelling Penicillins Allergy (Verified 10/31/24 16:10) Rash Sulfa (Sulfonamide Antibiotics) Allergy (Verified 10/31/24 16:10) Rash Medications ???Medication ???Instructions ???Recorded ???Confirmed ???Type ascorbic acid 30 mg-collagen, 1 tab PO DAILY 05/05/23 10/31/24 H istory hydrolyzed 833.3 mg tablet (Collagen Skin Renewal) aspirin 81 mg tablet,delayed 81 mg PO DAILY 05/05/23 10/31/24 H istory release calcium 600 mg (as 1 cap PO DAILY 05/05/23 10/31/24 H istory carbonate)-vitamin D3 12.5 mcg (500 unit) capsule (Calcium with Vit D3) citalopram 20 mg tablet 30 mg PO DAILY 05/05/23 10/31/24 H istory esomeprazole magnesium 40 mg 40 mg PO DAILY 05/05/23 10/31/24 H istory capsule,delayed release famotidine 20 mg tablet 20 mg PO QHS 05/05/23 10/31/24 His tory fesoterodine 8 mg tablet,extended 8 mg PO DAILY 05/05/23 10/31/24 H istory release 24 hr levothyroxine 50 mcg tablet 50 mcg PO DAILY 05/05/23 10/31/24 History melatonin 10 mg tablet 10 mg PO HS 05/05/23 10/31/24 Hist ory bzdwteem-arl-unkqj acid 0.4 1 tab PO DAILY 05/05/23 10/31/24 H istory mg-lycopene 300 mcg-lutein 250 mcg tablet (Complete Multivitamin Adult 50 Plus) semaglutide 0.25 mg or 0.5 mg (2 0.25 mg subcut TH 05/05/23 5 History mg/3 mL) subcutaneous pen injector (Ozempic) simvastatin 20 mg tablet 20 mg PO QHS 05/05/23 10/31/24 His tory Lactobacillus acidophilus 250 500 mmu cells PO DAILY 12/30/23 History million cell capsule (Probiotic Acidophilus) flaxseed oil 1,000 mg capsule 1,000 mg PO DAILY 12/30/23 5 History celecoxib 50 mg capsule (Celebrex) 50 mg PO .prn 07/26/24 10/31/24 History clindamycin HCl 300 mg capsule 300 mg PO TID 09/27/24 10/31/24 Hi story Have you fallen in the past year?: No Nurse's Note: pt here post op nipple reconstruction, questions on resuming activities Subjective Details: Berenice comes in for recheck of the right nipple reconstruction. She denies any problems. Objective Details: The skin around the incision is atrophic and irritated. I debrided some of the crust and trim some sutures. I applied some antibiotic ointment and dry gauze to the site along with the sponge silo. I have asked him to refrain from using the Telfa and to just use dry gauze. They are to continue antibiotic ointment for 1-1/2 weeks and then switch to Aquaphor. Restrictions were reviewed. I still do not want her extending her arm. I will see her back in 2 weeks and she is encouraged to call with any questions. Coding Level of Care Code Global Post Op Diagnoses S/P breast reconstruction, right Z98.890 Acquired absence of right breast Z90.11 [facility] Medical History (Updated 07/26/24 @ [...] History (Updated 05/05/23 @ 14:23 by Elin Jerome (more content not included)... [facility] Plastic Surgery Visit Report on 10-10-2024 Plastic Surgery Visit Report [facility] Plastic Reconstructive Surgery [address], [address] [place] [address] OFFICE VISIT Date of Service: 10/10/24 MR#: [id number] Acct: [id number] Name: BERENICE NOLASCO Rep #: [id number] : 1950 Provider: Dr. Apolinar flores MD Age/Sex: 74/F Location: [facility] Status: Signed Intake Vital Signs 09/27/24 14:31 10/10/24 14:32 Height 5 ft 6 in 5 ft 6 in Weight: 199 lb 6 oz 200 lb BMI 32.1 32.3 BP 127/80 H 139/86 H Blood Pressure Location Lt brachial Lt brachial Position Sitting Sitting Respiration 18 18 Pulse 73 70 Temp 97.9 F 97.5 F L Temp Source Oral Oral Pulse Oximetry (%) 95 92 Oxygen Delivery Method room air room air Intake Visit Reasons: 2 W F/U Chief Complaint: nipple reconstruction post op Accompanied by: Is patient in pain?: No Allergies oxycodone (From Percocet) Allergy (Mild, Verified 10/10/24 14:34) Swelling Penicillins Allergy (Verified 10/10/24 14:34) Rash Sulfa (Sulfonamide Antibiotics) Allergy (Verified 10/10/24 14:34) Rash Medications ???Medication ???Instructions ???Recorded ???Confirmed ???Type ascorbic acid 30 mg-collagen, 1 tab PO DAILY 05/05/23 10/10/24 History hydrolyzed 833.3 mg tablet (Collagen Skin Renewal) aspirin 81 mg tablet,delayed 81 mg PO DAILY 05/05/23 10/10/24 History release calcium 600 mg (as 1 cap PO DAILY 05/05/23 10/10/24 History carbonate)-vitamin D3 12.5 mcg (500 unit) capsule (Calcium with Vit D3) citalopram 20 mg tablet 30 mg PO DAILY 05/05/23 10/10/24 History esomeprazole magnesium 40 mg 40 mg PO DAILY 05/05/23 10/10/24 History capsule,delayed release famotidine 20 mg tablet 20 mg PO QHS 05/05/23 10/10/24 History fesoterodine 8 mg tablet,extended 8 mg PO DAILY 05/05/23 10/10/24 History release 24 hr levothyroxine 50 mcg tablet 50 mcg PO DAILY 05/05/23 10/10/24 History melatonin 10 mg tablet 10 mg PO HS 05/05/23 10/10/24 History txqxirux-tkp-jlpdf acid 0.4 1 tab PO DAILY 05/05/23 10/10/24 History mg-lycopene 300 mcg-lutein 250 mcg tablet (Complete Multivitamin Adult 50 Plus) semaglutide 0.25 mg or 0.5 mg (2 0.25 mg subcut TH 05/05/23 10/10/24 History mg/3 mL) subcutaneous pen injector (Ozempic) simvastatin 20 mg tablet 20 mg PO QHS 05/05/23 10/10/24 History Lactobacillus acidophilus 250 500 mmu cells PO DAILY 12/30/23 10/10/24 History million cell capsule (Probiotic Acidophilus) flaxseed oil 1,000 mg capsule 1,000 mg PO DAILY 12/30/23 10/10/24 History celecoxib 50 mg capsule (Celebrex) 50 mg PO .prn 07/26/24 10/10/24 History clindamycin HCl 300 mg capsule 300 mg PO TID 09/27/24 10/10/24 History Have you fallen in the past year?: No Nurse's Note: pt here with post nipple reconstruction, questions on tattooing , and restrictions( sleeping in bed, showering) Subjective Details: Berenice comes in for recheck of the right nipple reconstruction. She denies any problems. Objective Details: The skin is well-approximated. There is no evidence of infection. The nipple is viable. A few small sutures were removed. I reviewed dressings with the patient including maintaining the sponge silo over top to prevent it from smashing. I redressed the site with Telfa, gauze, and tape. I will see him back in 3 weeks for recheck. Coding Level of Care Code Global Post Op Diagnoses Acquired absence of right breast Z90.11 S/P breast reconstruction, right Z98.890 [facility] Medical History (Updated 07/26/24 @ 15:[address] Apolinar Henyr MD) Post-menopausal Wears glasses Depression Alcohol use [...] history: Aspirin use daily. Occasional Ibuprofen use. Assessment (more content not included)... [facility] Plastic Surgery Visit Report on 09-27-2024 Plastic Surgery Visit Report [facility] Plastic Reconstructive Surgery [address], [address] [place] [address] OFFICE VISIT Date of Service: 09/27/24 MR#: [id number] Acct: [id number] Name: BERENICE NOLASCO Rep #: [id number] : 1950 Provider: Dr. Apolinar flores MD Age/Sex: 74/F Location: [facility] Status: Signed Intake Vital Signs 09/22/24 12:34 09/27/24 14:31 Height 5 ft 6 in 5 ft 6 in Weight: 199 lb 6 oz BMI 32.1 BP 127/80 H Blood Pressure Location Lt brachial Position Sitting Respiration 18 Pulse 73 Temp 97.9 F Temp Source Oral Pulse Oximetry (%) 95 Oxygen Delivery Method room air Intake Visit Reasons: POST OP Chief Complaint: nipple reconstruction post op Accompanied by: Is patient in pain?: Yes (.01/20) Allergies oxycodone (From Percocet) Allergy (Mild, Verified 09/27/24 14:32) Swelling Penicillins Allergy (Verified 09/27/24 14:32) Rash Sulfa (Sulfonamide Antibiotics) Allergy (Verified 09/27/24 14:32) Rash Medications ???Medication ???Instructions ???Recorded ???Confirmed ???Type ascorbic acid 30 mg-collagen, 1 tab PO DAILY 05/05/23 09/27/24 History hydrolyzed 833.3 mg tablet (Collagen Skin Renewal) aspirin 81 mg tablet,delayed 81 mg PO DAILY 05/05/23 09/27/24 History release calcium 600 mg (as 1 cap PO DAILY 05/05/23 09/27/24 History carbonate)-vitamin D3 12.5 mcg (500 unit) capsule (Calcium with Vit D3) citalopram 20 mg tablet 30 mg PO DAILY 05/05/23 09/27/24 History esomeprazole magnesium 40 mg 40 mg PO DAILY 05/05/23 09/27/24 History capsule,delayed release famotidine 20 mg tablet 20 mg PO QHS 05/05/23 09/27/24 History fesoterodine 8 mg tablet,extended 8 mg PO DAILY 05/05/23 09/27/24 History release 24 hr levothyroxine 50 mcg tablet 50 mcg PO DAILY 05/05/23 09/27/24 History melatonin 10 mg tablet 10 mg PO HS 05/05/23 09/27/24 History ywwguwun-sxm-ythfo acid 0.4 1 tab PO DAILY 05/05/23 09/27/24 History mg-lycopene 300 mcg-lutein 250 mcg tablet (Complete Multivitamin Adult 50 Plus) semaglutide 0.25 mg or 0.5 mg (2 0.25 mg subcut TH 05/05/23 09/27/24 History mg/3 mL) subcutaneous pen injector (Ozempic) simvastatin 20 mg tablet 20 mg PO QHS 05/05/23 09/27/24 History Lactobacillus acidophilus 250 500 mmu cells PO DAILY 12/30/23 09/27/24 History million cell capsule (Probiotic Acidophilus) flaxseed oil 1,000 mg capsule 1,000 mg PO DAILY 12/30/23 09/27/24 History celecoxib 50 mg capsule (Celebrex) 50 mg PO .prn 07/26/24 09/27/24 History clindamycin HCl 300 mg capsule 300 mg PO TID 09/27/24 09/27/24 History Have you fallen in the past year?: No Nurse's Note: pt here with post op nipple reconstruction-little discomfort but not bad Subjective Details: Berenice comes in for recheck of the right nipple reconstruction. She denies any problems. Objective Details: The nipple has maintained projection. There is good capillary refill. There is no evidence of infection. I have encouraged her to continue her oral antibiotics until they are discontinued. They will change the dressing next week maintaining the sponge silo in place. I will see her back in 2 weeks for recheck. Coding Level of Care Code Global Post Op Diagnoses Acquired absence of right breast Z90.11 S/P breast reconstruction, right Z98.890 [facility] Medical History (Updated 07/26/24 @ [...] history: Aspirin use daily. Occasional Ibuprofen use. Assessment and Plan (No Qualifiers) Assessment and Plan (1) Acquired absence of right breast: Status: Acute (2) S/P toan (more content not included)... [facility] Discharge Instructionon 09-13 Discharge Instruction [facility] Medical Records Department [address] [place] [address] Instructions for Home/Discharge Instructions 09/22/24 1500 MR#: [id number] Acct: [id number] Name: BERENICE NOLASCO Rep #: [id number] : 1950 74 From: Apolinar Henry MD PCP: Shaikh Villagran Status:[facility] Discharge Instructions Dressing / Incision Additional Dressing/Incision Instructions:: Keep the dressing in place until seen in the office next week. Keep the dressing dry. Keep your back elevated (recliner position) to decrease bleeding and swelling. Take the oral antibiotic given as directed. Follow Up Care Please Follow Up With: Apolinar Henry MD When: In 1 week Test Results: Test results from this visit will be discussed in further detail at your follow-up appointment, if applicable. Discharge Plan Admission Attending Provider: Apolinar Henry Primary Care Provider: Shaikh Villagran Instructions Print Language: Algerian Discharge Orders/Prescriptions Prescriptions: No Action levothyroxine 50 [...] Comments: take 1 capsule by mouth daily celecoxib [Celebrex] 50 mg capsule 50 mg PO .prn flaxseed oil 1,000 mg capsule 1,000 mg PO DAILY Probiotic Acidophilus 250 million cell capsule 500 mmu cells PO DAILY Referrals / Follow Up: Shaikh Villagran [Primary Care Provider] - Disposition Disposition (needs filled in before D/C Order can be placed): Home, Self Care 09/22/24 1508 Apolinar Henry MD CC: Shaikh Tyshawn Signed [facility] Operative Reporton 5 Operative Report [facility] Medical Records Department [address] [place] [id number] Operative Report 09/22/24 1504 MR#: [id number] Acct: [id number] Name: BERENICE NOLASCO Rep #: [id number] : 1950 74 From: Apolinar Henry MD PCP: Shaikh Villagran Status:[facility] Location: [place] [address] Problems Associated Problem List Diagnoses (1) Acquired absence of right breast: (2) S/P breast reconstruction, right: Operative Report (Standard) Operative Information Date of Procedure: 09/22/24 Pre-Operative Diagnosis: Acquired absence right breast status post mastectomy for cancer Post-Operative Diagnosis: Same Surgery/Procedure Performed: Right nipple reconstruction zipper slide attacher: No Type of Anesthesia: Local RN Documented Start/Stop Times: Operation Date: 09/22/24 12:50 Case Time Into Pre-Op 09/22/24 12:16 Out of Pre-Op 09/22/24 13:43 Anesthesia Start 09/22/24 13:55 Into Room 09/22/24 13:55 Procedure Start 09/22/24 14:19 Procedure End 09/22/24 14:56 Procedure Start Time: 14:19 Procedure Stop Time: 14:56 Select all DRAINS/GRAFTS/IMPLANTS that apply: None Estimated Blood Loss: Minimal Specimen collected: No Description of surgery: The patient presents today for staged breast reconstruction. She has had reconstruction done on the right side with an implant and now presents for nipple reconstruction. The procedure and thoroughly reviewed with the patient including the potential risks. She is aware of the risk of infection of the underlying implant as well as loss of projection of the nipple and skin necrosis. She has marked prior to surgery at the site that she and her have designated for the nipple. The patient is brought to the operating room and placed on the operating room table in supine position. The breast and chest are prepped and draped in the usual sterile fashion. We initially began with marking a flap with the width and depth of the existing nipple on the left side. The the area outside the flap is injected with 1% Xylocaine with epinephrine. The flap is then incised and elevated in a subcutaneous plane. It is then elevated. The existing defect is then approximately with Mersilene sutures in the subdermal plane. Skin edges are approximated with a running chromic suture. Further reinforcement of the closure is done with interrupted silk suture. The arms of the flap are wrapped around and the nipple is sutured with chromic suture. A single suture was used to anchor the nipple to prevent folding back onto its base. The area is then dressed with Xeroform, Telfa, a bolster sponge and gauze. This is anchored in place with tape. She tolerated the procedure well was taken to the recovery area in an awake and stable condition. Needle and sponge counts are correct. Surgical Findings: As above Complications Complications: No Admit VTE Documentation VTE Mechan Device Prophylaxis: None Reason prophylaxis not ordered: Treatment Not Indicated 09/22/24 1508 Cosigner Signature (if applicable): CC: Dr. Apolinar Henry MD; Shaikh Tyshawn Signed Normal [facility] Urology Office/Clinic Noteon 09-11-2024 Urology Office/Clinic Note Chief Complaint Voiding diary History of Present Illness 74 year old female with h/o OAB, nocturia, rectocele presents to review voiding diary. Continues toviaz 8mg. She does use CPAP consistently for OAB. She notes worsened peripheral edema this past year. Sees vascular next month, h/o venous insufficiency. Does not wear compression stockings. Does not elevate legs except to sleep. Voiding Diary: Day 1 intake: 1,380mL Day 1 output:635mL Night 1 output: 1,660mL Day 2 intake: 720mL Day 2 output: 300mL Night 2 output: 1,325mL Review of Systems General: No fever, chills. Physical Exam Vitals & Measurements HT: 168 cm WT: 87.9 kg WT: 87.9 kg (Dosing) BMI: 31.14 General: well-developed, in no acute distress. Neuro: Alert and oriented. Gait is steady. Speech is clear and appropriate. MS: Equal movement x 4 extremities. No obvious weakness. Cardiovascular: No cyanosis. Lungs: No respiratory distress. No audible wheezing. Additional Vitals No qualifying data available. Assessment/Plan 1. Nocturnal polyuria She does have sleep apnea, tries to consistently wear CPAP. Discussed having device evaluated to make sure appropriate settings/fit. She does have LE edema, sees vascular next month. Does not wear compression stockings regularly. Asked to inquire about ways to reduce edema as this may be contributing to nighttime urine production. 2. OAB (overactive bladder) Continue toviaz for daytime control. 3. Rectocele She is going to attend PFPT- referred to [facility] in [place]. Main goal is to help evacuate stool easier. Discussed pessary, posterior repair if not improving with PFPT. Problem List/Past Medical History Ongoing CAD (coronary artery disease) Chronic GERD CPAP/BiPAP dependent Depression Hyperlipidemia Hypothyroidism OAB (overactive bladder) Osteoarthritis [...] breast cancer History of colonoscopy with polypectomy DC (myocardial infarction) (2013) Morbid obesity with body [...] mg= 1 tabs, Oral, Daily, 4 refills Toviaz 8 mg oral tablet, extended release, 8 mg= 1 tabs, Oral, Daily, 4 refills Allergies Percocet (Hot skin, Swollen face) penicillins (Rash) sulfa drugs (Rash) Electronically signed by Kevin Joaquin 09/11/24 16:46 EST Time spent with patient: 35 minutes Electronically signed by Kevin Joaquin 09/11/24 16:47 EST Normal [facility] Plastic Surgery Visit Report on 08-30-2024 Plastic Surgery Visit Report [facility] Plastic Reconstructive Surgery [address], [address] [place] [address] OFFICE VISIT Date of Service: 08/30/24 MR#: [id number] Acct: [id number] Name: BERENICE NOLASCO Rep #: [id number] : 1950 Provider: Dr. Apolinar flores MD Age/Sex: 74/F Location: [facility] Status: Signed Intake Vital Signs 07/26/24 14:21 08/30/24 14:47 Height 5 ft 6 in 5 ft 6 in BP 134/82 H 138/79 H Blood Pressure Location Lt brachial Lt brachial Position Sitting Sitting Respiration 16 18 Pulse 69 71 Temp 97.3 F L 97.8 F Temp Source Oral Oral Pulse Oximetry (%) 95 95 Oxygen Delivery Method room air room air Intake Visit Reasons: PRE OP Chief Complaint: nipple reconstruction pre op Accompanied by: Is patient in pain?: No Allergies acetaminophen (From Percocet) Allergy (Mild, Verified 08/30/24 14:48) Swelling oxycodone (From Percocet) Allergy (Mild, Verified 08/30/24 14:48) Swelling Penicillins Allergy (Verified 08/30/24 14:48) Rash Sulfa (Sulfonamide Antibiotics) Allergy (Verified 08/30/24 14:48) Rash Medications ???Medication ???Instructions ???Recorded ???Confirmed ???Type ascorbic acid 30 mg-collagen, 1 tab PO DAILY 05/05/23 08/30/24 History hydrolyzed 833.3 mg tablet (Collagen Skin Renewal) aspirin 81 mg tablet,delayed 81 mg PO DAILY 05/05/23 08/30/24 History release calcium 600 mg (as 1 cap PO DAILY 05/05/23 08/30/24 History carbonate)-vitamin D3 12.5 mcg (500 unit) capsule (Calcium with Vit D3) citalopram 20 mg tablet 30 mg PO DAILY 05/05/23 08/30/24 History esomeprazole magnesium 40 mg 40 mg PO DAILY 05/05/23 08/30/24 History capsule,delayed release famotidine 20 mg tablet 20 mg PO QHS 05/05/23 08/30/24 History fesoterodine 8 mg tablet,extended 8 mg PO DAILY 05/05/23 08/30/24 History release 24 hr levothyroxine 50 mcg tablet 50 mcg PO DAILY 05/05/23 08/30/24 History melatonin 10 mg tablet 10 mg PO HS 05/05/23 08/30/24 History mclkqzrq-cjj-vdqbv acid 0.4 1 tab PO DAILY 05/05/23 08/30/24 History mg-lycopene 300 mcg-lutein 250 mcg tablet (Complete Multivitamin Adult 50 Plus) semaglutide 0.25 mg or 0.5 mg (2 0.25 mg subcut TH 05/05/23 08/30/24 History mg/3 mL) subcutaneous pen injector (Ozempic) simvastatin 20 mg tablet 20 mg PO QHS 05/05/23 08/30/24 History Lactobacillus acidophilus 250 500 mmu cells PO DAILY 12/30/23 08/30/24 History million cell capsule (Probiotic Acidophilus) flaxseed oil 1,000 mg capsule 1,000 mg PO DAILY 12/30/23 08/30/24 History celecoxib 50 mg capsule (Celebrex) 50 mg PO .prn 07/26/24 08/30/24 History Have you fallen in the past year?: No Nurse's Note: pt here with for pre op nipple reconstruction [facility] Medical History (Updated 07/26/24 @ [...] Aspirin use daily. Occasional Ibuprofen use. HPI PRE OP Details: Berenice comes in for recheck and review of the upcoming nipple reconstruction surgery. There have not been any changes in her health history. Exam Details Patient with well-healed incisions on her breast. The location of the nipple was reviewed with her. I have given her stickers to apply prior to surgery to indicate the placement of the nipple. The procedure was reviewed including the expected pre-, intra-, postoperative course. The incisions and scars as well as limitations after surgery were reviewed. The potential risk and complications of surgery were reviewed which include but are not exclusive of loss of projection of the nipple, and infection of the underlying implant, exposure of th (more content not included)... Normal [facility] Urology Office/Clinic Noteon 08-24-2024 Urology Office/Clinic Note [...] another anterior colporrhaphy [address] Nancy Albino-Hastings. Failed oxybutynin and trospium prior, Myrbetriq too [...] breast cancer History of colonoscopy with polypectomy DC (myocardial infarction) (2013) Morbid obesity with body [...] 8 mg= (more content not included)... Normal [facility] Plastic Surgery Visit Report on 07-26-2024 Plastic Surgery Visit Report [facility] Plastic Reconstructive Surgery [address], [address] [place] [address] OFFICE VISIT Date of Service: 07/26/24 MR#: [id number] Acct: [id number] Name: BERENICE NOLASCO Rep #: [id number] : 1950 Provider: Dr. Apolinar flores MD Age/Sex: 74/F Location: [facility] Status: Signed Intake Vital Signs 03/22/24 13:26 [...] 10 mg PO HS 05/05/23 07/26/24 History hxhzrkwu-zph-rxtru acid 0.4 1 tab PO DAILY 05/05/23 [...] pt here with for nipple reconstruction consult. [facility] Medical History (Updated 07/26/24 @ [...] has successfully undergone reconstruction with a tissue rigger helper and now would like to have nipple [...] pec major (more content not included)... Normal [facility] Office Visiton 06-26-2024 Follow-up visit [id number] Berenice Nolasco 1950 F Date Provider Department Center 06/26/2024 [facility] MP[facility]THO No family history on file Level of Service:03866 [place] OFFICE/OUTPATIENT ESTABLISHED MOD MDM 30 MIN (25) Reason for Visit and Comments: Pain [136] Normal [facility] Antinuclear AB, HE-p Substra te, (RICARDO by IFA)on 04-12-2024 Antinuclear Ab, HEp-2 Substrate, S Negative Normal <1:80 (Negative) [facility] Comment on above: Result Comment: NOTE ADDITIONAL INFORMATION Method: Immunofluorescence using HEp-2 cellular substrate. Test Performed by: [facility] [address] [place] [address] Assistant Associate Professor: Samira Rodriguez Ph.D.; CLIA# [id number] Performed By: #### C BCA, CMP, THYR, 2132-9, 01114-7, ENAP, 07996-9, 5130-0, 54876-2 #### [facility] ([id number]) [address] [place] [address], [address] [place] [address] FERRITINon 04-12-2024 Ferritin [Mass/Vol] 50 ng/mL Normal 11-307 [facility] Comment on above: Performed By: #### C BCA, CMP, THYR, 2131-9, 06199-1, ENAP, 76775-4, 5130-0, 63103-7 #### [facility] ([id number]) [address], [address] [place] [address] IRON PROFILEon 04-12-2024 Iron [Mass/Vol] 65 ug/dL Normal 50-170 [facility] Comment on above: Performed By: #### C BCA, CMP, THYR, 2131-9, 29319-7, ENAP, 59391-4, 5130-0, 58141-0 #### [facility] ([id number]) [address], [address] [place] [address] IRON BINDING 354 ug/dL Normal 250-425 [facility] Comment on above: Performed By: #### C BCA, CMP, THYR, 2131-9, 71931-8, ENAP, 38709-8, 5130-0, 36095-4 #### [facility] ([id number]) [address], [address] [place] [address] IRON SATURATION 18 % SATURATION Normal 15-50 [facility] Comment on above: Performed By: #### C BCA, CMP, THYR, 2131-9, 27300-5, ENAP, 15621-5, 5130-0, 64474-4 #### [facility] ([id number]) [address], [address] [place] [address] THYROGLOBULIN ABon 4 Thyroglobulin Ab Qn [IU]/mL Normal <4.0 [facility] Comment on above: Performed By: #### C BCA, CMP, THYR, 2131-9, 92097-0, ENAP, 26660-7, 5130-0, 26969-5 #### [facility] ([id number]) [address], [address] [place] [address] THYROPEROXIDASE ABon 07-31-2 024 TPO Ab Qn 7 [IU]/mL Normal <10 [facility] Comment on above: Performed By: #### C BCA, CMP, THYR, 2132-9, 22160-1, ENAP, 22324-6, 5130-0, 92164-8 #### [facility] ([id number]) [address], [address] [place] [address] Plastic Surgery Visit Report on 03-22-2024 Plastic Surgery Visit Report [facility] Plastic Reconstructive Surgery [address] [place], [place] [address] OFFICE VISIT Date of Service: 03/22/24 MR#: [id number] Acct: [id number] Name: BERENICE NOLASCO Rep #: [id number] : 1950 Provider: Dr. Apolinar flores MD Age/Sex: 73/F Location: [facility] Status: Signed Intake Vital Signs 03/01/24 [...] 10 mg PO HS 05/05/23 03/22/24 History rldutapu-ypv-kxyij acid 0.4 1 tab PO DAILY 05/05/23 [...] History of cancer of right breast Z85.3 [facility] Medical History (Updated 12/30/23 @ [...] smoker alcohol (more content not included)... Normal [facility] CBC AND AUTO DIFFon 03-02-20 ABSOLUTE BASOPHIL 0.0 X10E9/L Normal 0.0-0.2 [facility] Comment on above: Performed By: #### C BCA, CMP, THYR, 2132-05, 58667-1, ENAP, 13964-0, 5130-0, 74383-4 #### [facility] ([id number]) [address], [address] [place] [address] ABSOLUTE NEUTROPHIL 5.4 X10E9/L Normal 1.5-6.6 [facility] Comment on above: Performed By: #### C BCA, CMP, THYR, 2132-05, 85953-2, ENAP, 12066-6, 5130-0, #### [facility] ([id number]) [address], [address] [place] [address] Basophils/100 WBC (Bld) 0.4 % Normal [facility] Comment on above: Performed By: #### C BCA, CMP, THYR, 2-9, 83815-0, ENAP, 19683-6, 5130-0, 18545-6 #### [facility] ([id number]) [address], [address] [place] [address] Eosinophils (Bld) [#/Vol] 0.1 10*3/uL Normal 0.0-0.4 [facility] Comment on above: Performed By: #### C BCA, CMP, THYR, 2-9, 47056-7, ENAP, 24180-6, 5130-0, #### [facility] ([id number]) [address], [address] [place] [address] Eosinophils/100 WBC (Bld) 1.5 % Normal [facility] Comment on above: Performed By: #### C BCA, CMP, THYR, 2131-9, 40033-6, ENAP, 04779-7, 5130-0, #### [facility] ([id number]) [address], [address] [place] [address] Erythrocyte distribution width (RBC) [Ratio] 15.1 % High 11.5-15.0 [facility] Comment on above: Performed By: #### C BCA, CMP, THYR, 2-9, 04815-0, ENAP, 59828-5, 5130-0, 56305-4 #### [facility] ([id number]) [address], [address] [place] [address] Hematocrit (Bld) [Volume fraction] 41.5 % Normal 35-47 [facility] Comment on above: Performed By: #### C BCA, CMP, THYR, 2131-9, 04877-9, ENAP, 83161-6, 5130-0, 47656-7 #### [facility] ([id number]) [address], [address] [place] [address] Hemoglobin (Bld) [Mass/Vol] 14.2 g/dL Normal 11.7-15.5 [facility] Comment on above: Performed By: #### C BCA, CMP, THYR, 2132-05, 15143-0, ENAP, 82537-7, 5130-0, 75217-0 #### [facility] ([id number]) [address], [address] [place] [address] Lymphocytes (Bld) [#/Vol] 1.8 10*3/uL Normal 1.0-3.5 [facility] Comment on above: Performed By: #### C BCA, CMP, THYR, 2132-05, 93262-2, ENAP, 96610-3, 5130-0, 23275-1 #### [facility] ([id number]) [address], [address] [place] [address] Lymphocytes/100 WBC (Bld) 22.4 % Normal [facility] Comment on above: Performed By: #### C BCA, CMP, THYR, 2132-05, 62858-9, ENAP, 74955-4, 5130-0, 35206-3 #### [facility] ([id number]) [address], [address] [place] [address] MCH (RBC) [Entitic mass] 29.3 pg Normal 27-34 [facility] Comment on above: Performed By: #### C BCA, CMP, THYR, 2131-, 51552-1, ENAP, 84213-6, 5130-0, 61908-3 #### [facility] ([id number]) [address], [address] [place] [address] MCHC (RBC) [Mass/Vol] 34.2 g/dL Normal 32-36 [facility] Comment on above: Performed By: #### C BCA, CMP, THYR, 2131-9, 48961-6, ENAP, 28641-2, 5130-0, 64563-0 #### [facility] ([id number]) [address], [facility] [address] [place] [address] MCV (RBC) [Entitic vol] 86 fL Normal 80-100 [facility] Comment on above: Performed By: #### C BCA, CMP, THYR, 2131-9, 27438-7, ENAP, 17699-4, 5130-0, 63832-8 #### [facility] ([id number]) [address] [address] Monocytes (Bld) [#/Vol] 0.5 10*3/uL Normal 0-0.9 [facility] Comment on above: Performed By: #### C BCA, CMP, THYR, 2131-9, 04370-2, ENAP, 25566-8, 5130-0, 44668-9 #### [facility] ([id number]) [address], [address] [address] Monocytes/100 WBC (Bld) 6.0 % Normal [facility] Comment on above: Performed By: #### C BCA, CMP, THYR, 2131-, 68588-5, ENAP, 44864-9, 5130-0, 56783-8 #### [facility] ([id number]) [address], [facility] [address] [place] [address] Neutrophils/100 WBC (Bld) 69.7 % Normal [facility] Comment on above: Performed By: #### C BCA, CMP, THYR, 2131-9, 96749-6, ENAP, 19423-2, 5130-0, 81522-3 #### [facility] ([id number]) [address], [address] [place] [address] Platelet mean volume (Bld) [Entitic vol] 9.2 fL Normal 7-12 [facility] Comment on above: Performed By: #### C BCA, CMP, THYR, 2132-9, 40685-8, ENAP, 91222-5, 5130-0, 52035-7 #### [facility] ([id number]) [address], [address] [place] [address] Platelets (Bld) [#/Vol] 166 10*3/uL Normal 150-450 [facility] Comment on above: Performed By: #### C BCA, CMP, THYR, 2-9, 38589-2, ENAP, 82948-9, 5130-0, #### [facility] ([id number]) [address], [address] [place] [address] RBC COUNT 4.84 X10E12/L Normal 3.80-5.20 [facility] Comment on above: Performed By: #### C BCA, CMP, THYR, 2-9, 97679-1, ENAP, 22834-5, 5130-0, #### [facility] ([id number]) [address], [address] [place] [address] WBC (Bld) [#/Vol] 7.8 10*3/uL Normal 4.0-11.0 [facility] Comment on above: Performed By: #### C BCA, CMP, THYR, 2-9, 64413-0, ENAP, 38635-6, 5130-0, 99851-9 #### [facility] ([id number]) [address], [address] [place] [address] COMPREHENSIVE METABOLIC PANE Jagdish 03-02-2024 Albumin [Mass/Vol] 4.1 g/dL Normal 3.2-5.3 [facility] Comment on above: Performed By: #### C BCA, CMP, THYR, 2131-9, 26150-8, ENAP, 87663-2, 5130-0, 20573-0 #### [facility] ([id number]) [address], [address] [place] [address] ALP [Catalytic activity/Vol] 149 U/L High 39-130 [facility] Comment on above: Performed By: #### C BCA, CMP, THYR, 2131-9, 00089-8, ENAP, 08129-0, 5130-0, 20335-4 #### [facility] ([id number]) [address], [address] [place] [address] ALT [Catalytic activity/Vol] 39 U/L High 0-31 [facility] Comment on above: Performed By: #### C BCA, CMP, THYR, 2132-05, 34537-1, ENAP, 25469-1, 5130-0, 43901-8 #### [facility] ([id number]) [address], [address] [place] [address] Anion gap [Moles/Vol] 8 mmol/L Normal 5-15 [facility] Comment on above: Performed By: #### C BCA, CMP, THYR, 2131-9, 32948-3, ENAP, 54628-4, 5130-0, 24559-0 #### [facility] ([id number]) [address], [address] [place] [address] AST [Catalytic activity/Vol] 34 U/L Normal 0-41 [facility] Comment on above: Performed By: #### C BCA, CMP, THYR, 2131-9, 27690-4, ENAP, 64981-3, 5130-0, 97901-4 #### [facility] ([id number]) [address], [address] [place] [address] Bilirubin [Mass/Vol] 0.5 mg/dL Normal 0.3-1.2 [facility] Comment on above: Performed By: #### C BCA, CMP, THYR, 2131-9, 27396-9, ENAP, 07951-8, 5130-0, 81157-2 #### [facility] ([id number]) [address], [address] [place] [address] Calcium [Mass/Vol] 9.4 mg/dL Normal 8.5-10.5 [facility] Comment on above: Performed By: #### C BCA, CMP, THYR, 2131-9, 31886-0, ENAP, 74150-4, 5130-0, #### [facility] ([id number]) [address], [address] [place] [address] Chloride [Moles/Vol] 104 mmol/L Normal 98-109 [facility] Comment on above: Performed By: #### C BCA, CMP, THYR, 9, 97500-9, ENAP, 65930-6, 5130-0, #### [facility] ([id number]) [address], [address] [place] [address] CO2 [Moles/Vol] 29 mmol/L Normal 22-32 [facility] Comment on above: Performed By: #### C BCA, CMP, THYR, 2131-9, 18843-4, ENAP, 50892-3, 5130-0, #### [facility] ([id number]) [address], [address] [place] [address] Creatinine [Mass/Vol] 0.71 mg/dL Normal 0.40-1.00 [facility] Comment on above: Result Comment: METH OD TRACEABLE TO IDMS STANDARD Performed By: #### C BCA, CMP, THYR, 2131-9, 82369-3, ENAP, 82961-5, 5130-0, 45405-6 #### [facility] ([id number]) [address], [address] [place] [address] GFR/1.73 sq M.predicted among non-blacks MDRD (S/P/Bld) [Vol rate/Area] 90 mL/min/{1.73_m2} Normal >59 [facility] Comment on above: Result Comment: Reported eGFR is based on the CKD-EPI 2020 equation that does not use a race coefficient. Performed By: #### C BCA, CMP, THYR, 2132-05, 19108-0, ENAP, 33185-3, 5130-0, #### [facility] ([id number]) [address], [address] [place] [address] Glucose [Mass/Vol] 55 mg/dL Low 65-99 [facility] Comment on above: Performed By: #### C BCA, CMP, THYR, 2132-05, 95597-6, ENAP, 72824-2, 5130-0, #### [facility] ([id number]) [address], [address] [place] [address] Potassium [Moles/Vol] 4.4 mmol/L Normal 3.5-5.0 [facility] Comment on above: Performed By: #### C BCA, CMP, THYR, 2132-05, 02709-5, ENAP, 51343-2, 5130-0, #### [facility] ([id number]) [address], [address] [place] [address] Protein [Mass/Vol] 6.9 g/dL Normal 6.0-8.0 [facility] Comment on above: Performed By: #### C BCA, CMP, THYR, 9, 61271-8, ENAP, 28419-5, 5130-0, 97233-6 #### [facility] ([id number]) [address], [address] [place] [address] Sodium [Moles/Vol] 141 mmol/L Normal 134-146 [facility] Comment on above: Performed By: #### C BCA, CMP, THYR, 2-9, 77492-5, ENAP, 33636-5, 5130-0, 57085-5 #### [facility] ([id number]) [address], [address] [place] [address] Urea nitrogen [Mass/Vol] 12 mg/dL Normal 5-27 [facility] Comment on above: Performed By: #### C BCA, CMP, THYR, 2-9, 92215-5, ENAP, 16386-6, 5130-0, 23474-7 #### [facility] ([id number]) [address], [address] [place] [address] Chromatin Ab Qlon 03-02-2024 CHROMATIN AB IGG <0.2 Normal <1.0 [facility] Comment on above: Performed By: #### C BCA, CMP, THYR, 2-9, 67174-8, ENAP, 76145-3, 5130-0, 81194-3 #### [facility] ([id number]) [address], [address] [place] [address] Copper [Mass/Vol]on 03-02-20 24 COPPER 88 ug/dL Normal 80-155 [facility] Comment on above: Result Comment: NOTE This test was developed and its performance characteristics determined by [facility]'s [facility] [place] ([facility] It has not been cleared or approved by the FDA. -[facility] is regulated under CLIA as qualified to perform high-complexity testing. This test is used for clinical purposes. It should not be regarded as investigational or for research. Test Performed By: [place] [address] [employer] Fashion Designer: Trace Pelayo III, M.D. CLIA #[id number] DNA double strand Ab Qn (S)o n 03-02-2024 DOUBLE STRANDED DNA <1 Normal <5 [facility] Comment on above: Result Comment: Interpretation-------- <5 Negative 5-9 Indeterminate >9 Positive Performed By: #### C BCA, CMP, THYR, 2131-9, 38168-2, ENAP, 92638-8, 5130-0, 35824-3 #### [facility] ([id number]) [address], [address] [place] [address] LARISSA PANELon 03-02-2024 ANTI-LIMA AB IGG <0.2 Normal <1.0 [facility] Comment on above: Performed By: #### C BCA, CMP, THYR, 2131-9, 57436-3, ENAP, 98766-5, 5130-0, 33662-6 #### [facility] ([id number]) [address], [address] [place] [address] JO1 ANTIBODY <0.2 Normal <1.0 [facility] Comment on above: Performed By: #### C BCA, CMP, THYR, 2131-9, 09869-1, ENAP, 77237-5, 5130-0, 71877-2 #### [facility] ([id number]) [address], [address] [place] [address] DOBBY LOOM WEAVER ANTIBODY IGG 2.0 AI High <1.0 [facility] Comment on above: Performed By: #### C BCA, CMP, THYR, 2131-9, 52006-2, ENAP, 48118-5, 5130-0, 14527-3 #### [facility] ([id number]) [address], [address] [place] [address] SCL 70 ANTIBODY <0.2 Normal <1.0 [facility] Comment on above: Performed By: #### C BCA, CMP, THYR, 2131-9, 08435-5, ENAP, 62554-8, 5130-0, 76606-5 #### [facility] ([id number]) [address], [address] [place] [address] SSA ANTIBODY <0.2 Normal <1.0 [facility] Comment on above: Performed By: #### C BCA, CMP, THYR, 2131-9, 06775-6, ENAP, 86980-4, 5130-0, 56556-0 #### [facility] ([id number]) [address], [address] [place] [address] SSB ANTIBODY <0.2 Normal <1.0 [facility] Comment on above: Performed By: #### C BCA, CMP, THYR, 2131-9, 00672-7, ENAP, 57677-8, 5130-0, 23189-9 #### [facility] ([id number]) [address], [address] [place] [address] Nuclear Ab IA Ql (S)on 03-02 RICARDO Screen w/reflex Positive Abnormal NEG [facility] Comment on above: Result Comment: Testing performed using multiplex flow immunoassay. Eleven different antigens associated with systemic autoimmune diseases (dsDNA,Sm,Sm/DOBBY LOOM WEAVER,DOBBY LOOM WEAVER,Chromatin, SSA,SSB,Michaelle-1,Scl70,Ribo P,Centromere B) are included in this screening test. Performed By: #### C BCA, CMP, THYR, 2-9, 27563-5, ENAP, 81991-4, 5130-0, 88399-6 #### [facility] ([id number]) [address], [address] [place] [address] Lima extractable nuclear Ab +Ribonucleoprotein extractable nuclear IgG Qn (S)on 03-02-2024 LIMA/DOBBY LOOM WEAVER AB IGG <0.2 Normal <1.0 [facility] Comment on above: Performed By: #### C BCA, CMP, THYR, 2131-9, 08280-1, ENAP, 47023-4, 5130-0, 43073-9 #### [facility] ([id number]) [address], [address] [place] [address] THYROID PROFILEon 03-02-2024 Free T4 [Mass/Vol] 0.97 ng/dL Normal 0.61-1.60 [facility] Comment on above: Performed By: #### C BCA, CMP, THYR, 2132-05, 90453-2, ENAP, 23107-4, 5130-0, 52533-0 #### [facility] ([id number]) [address], [address] [place] [address] TSH 1.16 uIU/mL Normal 0.49-4.67 [facility] Comment on above: Performed By: #### C BCA, CMP, THYR, 9, 13959-5, ENAP, 54065-7, 5130-0, 01725-6 #### [facility] ([id number]) [address], [address] [place] [address] VITAMIN B12on 03-02-2024 Cobalamin (Vitamin B12) [Mass/Vol] 582 pg/mL Normal 180-914 [facility] Comment on above: Performed By: #### C BCA, CMP, THYR, 9, 19487-3, ENAP, 79737-2, 5130-0, 43584-6 #### [facility] ([id number]) [address], [address] [place] [address] VITAMIN E, SER/PLon 03-02-20 24 VIT E(ALPHA-TOCOPHEROL) 13.2 mg/L Normal 5.5-18.0 [facility] Comment on above: Result Comment: NOTE This test was developed and its performance characteristics determined by [employer]. It has not been cleared or approved by the US Food and Drug Administration. This test was performed in a CLIA certified laboratory and is intended for clinical purposes. Performed By: #### C BCA, CMP, THYR, 2131-9, 49115-4, ENAP, 15430-4, 5130-0, 23076-8 #### [facility] ([id number]) [address], [address] [place] [address] VIT E(GAMMA-TOCOPHEROL) 0.6 mg/L Normal 0.0-6.0 [facility] Comment on above: Result Comment: NOTE Performed By: [employer] [address] [place] [address] [employer] Fashion Designer: Cornell Sánchez MD, PhD CLIA Number: [id number] Performed By: #### C BCA, CMP, THYR, 2132-05, 61705-9, ENAP, 78045-9, 5130-0, 97520-8 #### [facility] ([id number]) [address], [address] [place] [address] Plastic Surgery Visit Report on 03-01-2024 Plastic Surgery Visit Report [facility] Plastic Reconstructive Surgery [address], [address] [place], [place] [address] OFFICE VISIT Date of Service: 03/01/24 MR#: [id number] Acct: [id number] Name: BERENICE NOLASCO Rep #: [id number] : 1950 Provider: Dr. Apolinar flores MD Age/Sex: 73/F Location: [facility] Status: Signed Intake Vital Signs 02/16/24 13:27 [...] 10 mg PO HS 05/05/23 03/01/24 History afvhrekx-uzp-rxqhq acid 0.4 1 tab PO DAILY 05/05/23 [...] reduction Z98.890 S/P breast reconstruction, right Z98.890 [facility] Medical History (Updated 12/30/23 @ [...] daily. Occa (more content not included)... Normal [facility] Plastic Surgery Visit Report on 02-16-2024 Plastic Surgery Visit Report [facility] Plastic Reconstructive Surgery [address], [address] [place], [place] [address] OFFICE VISIT Date of Service: 02/16/24 MR#: [id number] Acct: [id number] Name: BERENICE NOLASCO Rep #: [id number] : 1950 Provider: Dr. Apolinar flores MD Age/Sex: 73/F Location: [facility] Status: Signed Intake Vital Signs 02/02/24 [...] 10 mg PO HS 05/05/23 02/16/24 History egvqmtut-grf-wxyah acid 0.4 1 tab PO DAILY 05/05/23 [...] reduction Z98.890 S/P breast reconstruction, right Z98.890 [facility] Medical History (Updated 12/30/23 @ [...] disease Soci (more content not included)... Normal [facility] Plastic Surgery Visit Report on 02-02-2024 Plastic Surgery Visit Report [facility]astic [facility]ive Surgery [address], [address] [place] [address] OFFICE VISIT Date of Service: 02/02/24 MR#: [id number] Acct: [id number] Name: BERENICE NOLASCO Rep #: [id number] : 1950 Provider: Dr. Apolinar flores MD Age/Sex: 73/F Location: [facility] Status: Signed Intake Vital Signs 12/14/23 [...] 10 mg PO HS 05/05/23 02/02/24 History ryutyoeg-xku-aqhdq acid 0.4 1 tab PO DAILY 05/05/23 [...] reduction Z98.890 S/P breast reconstruction, right Z98.890 [facility] Medical History (Updated 12/30/23 @ [...] Heart d (more content not included)... Normal [facility] Plastic Surgery Visit Report on 01-26-2024 Plastic Surgery Visit Report [facility]ive Surgery [address] [place] [address] OFFICE VISIT Date of Service: 01/26/24 MR#: [id number] Acct: [id number] Name: BERENICE NOLASCO Rep #: [id number] : 1950 Provider: Dr. 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 ) Allergies acetaminophen (From Percocet) Allergy (Mild, [...] 10 mg PO HS 05/05/23 01/26/24 History vmxqafed-gak-ldmow acid 0.4 1 tab PO DAILY 05/05/23 [...] admits to eating chicken noodle soup from [employer] as well as pulled pork which may [...] breast reconstruction, right Z98.890 Breast asymmetry between [place] breast and reconstructed breast N65.1 Status post breast reduction Z98.890 [facility] Medical History (Updated 12/30/23 @ [...] Breast c (more content not included)... Normal [facility] Discharge Instructionon 01-11 Discharge Instruction [facility] Medical Records Department [address] [place] [address] Instructions for Home/Discharge Instructions 01/21/24 1037 MR#: [id number] Acct: [id number] Name: BERENICE NOLASCO Rep #: [id number] : 1950 73 From: Apolinar Henry MD PCP: Shaikh Villagran Status:[facility] Discharge Instructions Dressing / Incision Additional Dressing/Incision [...] Henry MD CC: Shaikh Tyshawn Signed Normal [facility] Operative Reporton 4 Operative Report [facility] Medical Records Department [address] [place] [address] Operative Report 01/21/24 1040 MR#: [id number] Acct: [id number] Name: BERENICE NOLASCO Rep #: [id number] : 1950 73 From: Apolinar Henry MD PCP: Shaikh Villagran Status:[facility] Location: [place] [address] Problems Associated Problem List Diagnoses (1) S/P breast reconstruction, right: (2) History of cancer of right breast: (3) Breast hypertrophy: (4) Breast asymmetry between [place] breast and reconstructed breast: Report of Operation Date of Procedure: 01/21/24 Pre-Operative Diagnosis: 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 She has previously undergone right breast reconstruction with a tissue rigger helper with a remote port. She understands that [...] seating of the plug in the tissue rigger helper. The tube is checked for appropriate location [...] Apolinar Henry MD; Shaikh Tyshawn Signed Normal [facility] Surgery Specimen Level [place] 01-21-2024 Surgery Specimen Level IV Patient Age/Sex Location Account Attending Physician LETICIA NOLASCOSonny STANLEY 73/F [facility] [id number] Dr. Apolinar Henry MD Specimen: [id number] Received: 01/21/24 Status: PEE [place] Num: [id number] Spec Type: MAMOPLASTY Subm Dr: Dr. Apolinar [...] fibrous areas. No mass lesion is identified. Lint Cleaner sections are submitted in six cassettes. Cassette 1 contains the skin piece. SJ: 01/21/24 TC:5 CPT: 88633 Patient Age/Sex Location Account Attending Physician BERENICE NOLASCO 73/F [facility] [id number] Dr. Apolinar Henry MD Signed (signature on file) Dr. Steve Pichardo DO 01/24/24 1306 Normal [facility] Comment on above: Performed By: #### P YONG ####[facility] [address] [place], [place], [address] Plastic Surgery Visit Report on 01-05-2024 Plastic Surgery Visit Report [facility] Plastic Reconstructive Surgery [address], [address] [place] [address] OFFICE VISIT Date of Service: 01/05/24 MR#: [id number] Acct: [id number] Name: BERENICE NOLASCO Rep #: [id number] : 1950 Provider: Dr. Apolinar flores MD Age/Sex: 73/F Location: [facility] Status: Signed Intake Vital Signs 12/14/23 [...] mg PO HS 05/05/23 [History Confirmed 01/05/24] nluclsmc-zqs-ldpti acid 0.4 mg-lycopene 300 mcg-lutein 250 mcg [...] postoperative instructi (more content not included)... Normal [facility] Basic Metabolic Profile (BMP )on 12-22-2023 BUN/CRE 20.5 RATIO High 10-20 [facility] Comment on above: Order Comment: pre a dmission testing for surgery Performed By: #### L 500.2500, L100.0500 ####[facility] [address] [place], [address] CA,Total 9.1 mg/dL Normal 8.5-10.1 [facility] Comment on above: Order Comment: pre a dmission testing for surgery Performed By: #### L 500.2500, L100.0500 ####[facility] [address] [place], [address] Chloride [Moles/Vol] 108 mmol/L High 98-107 [facility] Comment on above: Order Comment: pre a dmission testing for surgery Performed By: #### L 500.2500, L100.0500 ####[facility] [address] [place], [address] CO2 [Moles/Vol] 27.0 mmol/L Normal 21.0-32.0 [facility] Comment on above: Order Comment: pre a dmission testing for surgery Performed By: #### L 500.2500, L100.0500 ####[facility] [address] [place], [address] Creatinine [Mass/Vol] 0.68 mg/dL Normal 0.55-1.02 [facility] Comment on above: Order Comment: pre a dmission testing for surgery Result Comment: The validity of the calculated GFR GFRAA in patients over 70 years has not been determined. Clinical correlation is essential. Performed By: #### L 500.2500, L100.0500 ####[facility] [address] [place], [address] EST GFR - AA 108 mL/min Normal >60 [facility] Comment on above: Order Comment: pre a dmission testing for surgery Result Comment: Afri can Ivorian GFR Calc Performed By: #### L 500.2500, L100.0500 ####[facility] [address] [place], [address] GAP 3 Low 5-15 [facility] Comment on above: Order Comment: pre a dmission testing for surgery Performed By: #### L 500.2500, L100.0500 ####[facility] [address] [place], [address] GFR/1.73 sq M.predicted among non-blacks MDRD (S/P/Bld) [Vol rate/Area] 90 mL/min/{1.73_m2} Normal >60 [facility] Comment on above: Order Comment: pre a dmission testing for surgery Result Comment: Non- GFR Calc Performed By: #### L 500.2500, L100.0500 ####[facility] [address] [place], [address] Glucose [Mass/Vol] 88 mg/dL Normal 74-106 [facility] Comment on above: Order Comment: pre a dmission testing for surgery Performed By: #### L 500.2500, L100.0500 ####[facility] [address] [place], [address] Potassium [Moles/Vol] 4.6 mmol/L Normal 3.5-5.1 [facility] Comment on above: Order Comment: pre a dmission testing for surgery Performed By: #### L 500.2500, L100.0500 ####[facility] [address] [place], [address] Sodium [Moles/Vol] 138 mmol/L Normal 136-145 [facility] Comment on above: Order Comment: pre a dmission testing for surgery Performed By: #### L 500.2500, L100.0500 ####[facility] [address] [place], [address] Urea nitrogen [Mass/Vol] 14 mg/dL Normal 7-18 [facility] Comment on above: Order Comment: pre a dmission testing for surgery Performed By: #### L 500.2500, L100.0500 ####[facility] [address] [place], [address] Basophil percentageOrdered B y: Apolinarpuma Henry on 12-22-2023 Chloride [Moles/Vol] 108 mmol/L 98-107 [facility] Glucose [Mass/Vol] 88 mg/dL 74-106 [facility] Hemoglobin (Bld) [Mass/Vol] 14.1 g/dL 12.0-15.0 [facility] Potassium [Moles/Vol] 4.6 mmol/L 3.5-5.1 [facility] Sodium [Moles/Vol] 138 mmol/L 136-145 [facility] WBC (Bld) [#/Vol] 8.1 10*3/uL 4.4-11.0 [facility] CBC-Complete Blood Cnt No Di ffon 12-22-2023 Erythrocyte distribution width (RBC) [Ratio] 13.9 % Normal 11.6-14.6 [facility] Comment on above: Order Comment: Comme nts: preadmission testing for surgery Performed By: #### L 500.2500, L100.0500 ####[facility] [address] [place], [address] Hematocrit (Bld) [Volume fraction] 43.9 % Normal 37-47 [facility] Comment on above: Order Comment: Comme nts: preadmission testing for surgery Performed By: #### L 500.2500, L100.0500 ####[facility] [address] [place], [address] Hemoglobin (Bld) [Mass/Vol] 14.1 g/dL Normal 12.0-15.0 [facility] Comment on above: Order Comment: Comme nts: preadmission testing for surgery Performed By: #### L 500.2500, L100.0500 ####[facility] [address] [place], [address] MCH (RBC) [Entitic mass] 28.4 pg Normal 27.0-32.0 [facility] Comment on above: Order Comment: Comme nts: preadmission testing for surgery Performed By: #### L 500.2500, L100.0500 ####[facility] [address] [place], [address] MCHC (RBC) [Mass/Vol] 32.1 g/dL Normal 32-36 [facility] Comment on above: Order Comment: Comme nts: preadmission testing for surgery Performed By: #### L 500.2500, L100.0500 ####[facility] [address] [place], [address] MCV (RBC) [Entitic vol] 88.3 fL Normal 81-99 [facility] Comment on above: Order Comment: Comme nts: preadmission testing for surgery Performed By: #### L 500.2500, L100.0500 ####[facility] [address] [place], [address] Platelet mean volume (Bld) [Entitic vol] 10.8 fL Normal 6.2-12.0 [facility] Comment on above: Order Comment: Comme nts: preadmission testing for surgery Performed By: #### L 500.2500, L100.0500 ####[facility] [address] [place], [address] Platelets (Bld) [#/Vol] 188 10*3/uL Normal 150-450 [facility] Comment on above: Order Comment: Comme nts: preadmission testing for surgery Performed By: #### L 500.2500, L100.0500 ####[facility] [address] [place], [address] RBC (Bld) [#/Vol] 4.97 10*6/uL Normal 4.2-5.4 [facility] Comment on above: Order Comment: Comme nts: preadmission testing for surgery Performed By: #### L 500.2500, L100.0500 ####[facility] [address] [place], [address] RDW SD 44.7 fl High 35.1-43.9 [facility] Comment on above: Order Comment: Commnicki nts: preadmission testing for surgery Performed By: #### L 500.2500, L100.0500 ####[facility] [address] [place], [address] WBC (Bld) [#/Vol] 8.1 10*3/uL Normal 4.4-11.0 [facility] Comment on above: Order Comment: Commnicki nts: preadmission testing for surgery Performed By: #### L 500.2500, L100.0500 ####[facility] [address] [place], [address] Determination of erythrocyte mean corpuscular volume (MCV)Ordered By: Apolinar Henry on 12-22-2023 MCV (RBC) [Entitic vol] 88.3 fL 81-99 [facility] Erythrocyte distribution wid th ratioOrdered By: Apolinar Henry on 12-22-2023 Erythrocyte distribution width (RBC) [Ratio] 13.9 % 11.6-14.6 [facility] Erythrocyte distribution wid th standard deviationOrdered By: Apolinar Henry on 12-22-2023 Erythrocyte distribution width (RBC) [Entitic vol] 44.7 fL 35.1-43.9 [facility] Hematocrit Auto (Bld) [Volum e fraction]Ordered By: Apolinar Henry on 12-22-2023 Hematocrit (Bld) [Volume fraction] 43.9 % 37-47 [facility] Laboratory - Chemistry and C hemistry - challengeOrdered By: Apolinar Henry on 12-22-2023 CO2 [Moles/Vol] 27.0 mmol/L 21.0-32.0 [facility] Urea nitrogen/Creatinine [Mass ratio] 20.5 mg/mg 10-20 [facility] - Hematology and Cell countsOrdered By: Apolinar Henry on 12-22-2023 MCH (RBC) [Entitic mass] 28.4 pg 27.0-32.0 [facility] MCHC (RBC) [Mass/Vol] 32.1 g/dL 32-36 [facility] Platelet mean volume (Bld) [Entitic vol] 10.8 fL 6.2-12.0 [facility] Platelets (Bld) [#/Vol] 188 10*3/uL 150-450 [facility] No Panel InformationOrdered By: Apolinar Henry on 12-22-2023 Estimated GFR (MDRD) Amer 108 mL/min >60 [facility] Comment on above: GFR Calc Estimated GFR (MDRD) Non-Af Amer 90 mL/min >60 [facility] Comment on above: Non- GFR Calc Plastic Surgery Visit Report on 12-22-2023 Plastic Surgery Visit Report [facility] Plastic Reconstructive Surgery [address], [address] [place], [place] [address] OFFICE VISIT Date of Service: 12/22/23 MR#: [id number] Acct: [id number] Name: BERENICE NOLASCO Rep #: [id number] : 1950 Provider: Dr. Apolinar flores MD Age/Sex: 73/F Location: [facility] Status: Signed Intake Vital Signs [...] mg PO HS 05/05/23 [History Confirmed 12/22/23] hqfgxkug-pef-wdpqk acid 0.4 mg-lycopene 300 mcg-lutein 250 mcg [...] op #1 left breast reduction/port removal right- [facility] Medical History (Updated 05/05/23 @ [...] Level of (more content not included)... Normal [facility] RBC Auto (Bld) [#/Vol]Ordere d By: Apolinar Henry on 12-22-2023 RBC (Bld) [#/Vol] 4.97 10*6/uL 4.2-5.4 [facility] Serum or plasma calcium adalgisa urement (mass/volume)Ordered By: Apolinar Henry on 12-22-2023 Calcium [Mass/Vol] 9.1 mg/dL 8.5-10.1 [facility] Serum or plasma creatinine m easurement (mass/volume)Ordered By: Apolinar Henry on 12-22-2023 Creatinine [Mass/Vol] 0.68 mg/dL 0.55-1.02 [facility] Comment on above: The validity of the calculated GFR & GFRAA in patients over 70 years has not been determined. Clinical correlation is essential. Serum or plasma urea nitroge n measurement (mass/volume)Ordered By: Apolinar Henry on 12-22-2023 Urea nitrogen [Mass/Vol] 14 mg/dL 7-18 [facility] Thin prep Papanicolaou smear with manual screeningOrdered By: Apolinar Henry on 12-22-2023 Thin prep Papanicolaou smear with manual screening 3 5-15 [facility] Plastic Surgery Visit Report on 12-14-2023 Plastic Surgery Visit Report [facility]ive Surgery [address] [place] [address] OFFICE VISIT Date of Service: 12/14/23 MR#: [id number] Acct: [id number] Name: BERENICE NOLASCO Rep #: [id number] : 1950 Provider: Dr. Apolinar lfores MD Age/Sex: 73/F Location: [facility] Status: Signed Intake Vital Signs 06/30/23 [...] mg PO HS 05/05/23 [History Confirmed 12/14/23] ndzvsofp-lkt-hheou acid 0.4 mg-lycopene 300 mcg-lutein 250 mcg [...] future surgery Left breast reduction, removal right rigger helper pot. [facility] Medical History (Updated 05/05/23 @ [...] Exam Details The patient's right breast tissue rigger helper is in good position and the port [...] remove the port on the right tissue rigger helper which has the capability of functioning as a permanent implant. The surgery would be done as an outpatient under general anesthetic. Const General: cooperative and healthy appearing Nutritional Appearance: overweight Orientation: alert HENRI Head: normal to inspection Eyes General: appearance normal, both eyes and all related structures Neck Neck: normal visual inspection Neuro General: patient alert Other: Slightly unsteady gait (more content not included)... Normal [facility] MR BRAIN W WO CONTon 024 MR [...] Kwon DO on 11/19/2023 10:48 AM Normal [facility] Surgery Office/Clinic Noteon 10-11-2023 Surgery Office/Clinic Note [...] breast cancer History of colonoscopy with polypectomy DC (myocardial infarction) (2013) Morbid obesity with body [...] catheterization (07/2014) Comments: HAD HEART CATH AFTER DC DURING KNEE SCOPE. NO STENTS WERE PLACED [...] cancer: Aunt/Uncle. (more content not included)... Normal [facility] VC CONSULT FOLLOWUPon 2022 VC CONSULT FOLLOWUP Patient: LETICIA NOLASCO Exam Date: 12/16/2022 : 1950 Gender:F Ordering : SHAIKH Quirino VILLAGRAN . Admission #: [id number] Family : Order #: [id number] CLICK HERE TO VIEW EXAM RADIOLOGY REPORT [...] MD on 12/16/2022 at 14:59 Normal [facility] CBC AUTO DIFFon 09-16-2022 BASO # 0.0 103/ul Normal 0.0-0.1 [facility] Comment on above: Performed By: #### C BC #### [facility] [address] [address] [address] Danielle Penaloza Basophils/100 WBC (Bld) 0.5 % Normal 0.2-2.[address] [facility] Comment on above: Performed By: #### C BC #### [facility] [address] [place] [address] Dr. Danielle Penaloza EO # 0.1 103/ul Normal 0.0-0.7 [facility] Comment on above: Performed By: #### C BC #### [facility] [address] [place] [address] Dr. Danielle Penaloza Eosinophils/100 WBC (Bld) 1.2 % Normal 0.9-7.0 [facility] Comment on above: Performed By: #### C BC #### [facility] [address] [place] [address] Dr. Danielle Penaloza Erythrocyte distribution width (RBC) [Ratio] 14.2 % Normal 11.0-15.[address] [facility] Comment on above: Performed By: #### C BC #### [facility] [address] [place] [address] Dr. Danielle Penaloza Hematocrit (Bld) [Volume fraction] 42.5 % Normal 36.0-48.[address] [facility] Comment on above: Performed By: #### C BC #### [facility] Laboratory [address] [place] [address] Dr. Danielle Penaloza Hemoglobin (Bld) [Mass/Vol] 14.1 g/dL Normal 12.0-16.[address] [facility] Comment on above: Performed By: #### C BC #### [facility] Laboratory [address] [place] [address] Dr. Danielle Penaloza IG # 0.02 10e3/ul Normal 0.00-0.03 [facility] Comment on above: Performed By: #### C BC #### [facility] Laboratory [address] [place] [address] Dr. Danielle Penaloza IG % 0.2 % Normal 0.0-0.5 [facility] Comment on above: Performed By: #### C BC #### [facility] Laboratory [address] [place] [address] Dr. Danielle Penaloza LYMPH # 1.9 103/ul Normal 1.2-3.8 [facility] Comment on above: Performed By: #### C BC #### [facility] Laboratory [address] [place] [address] Dr. Danielle Penaloza Lymphocytes/100 WBC (Bld) 23.4 % Normal 20.5-60.0 [facility] Comment on above: Performed By: #### C BC #### [facility] Laboratory [address] [place] [address] Dr. Danielle Penaloza MANUAL DIFF REQ NO Normal [facility] Comment on above: Performed By: #### C BC #### [facility] Laboratory [address] [place] [address] Dr. Danielle Penaloza MCH (RBC) [Entitic mass] 28.1 pg Normal 26.7-34.0 [facility] Comment on above: Performed By: #### C BC #### [facility] Laboratory [address] [place] [address] Dr. Danielle Penaloza MCHC (RBC) [Mass/Vol] 33.2 g/dL Normal 29.9-35.2 [facility] Comment on above: Performed By: #### C BC #### [facility] Laboratory [address] [place] [address] Dr. Danielle Penaloza MCV (RBC) [Entitic vol] 84.8 fL Normal 81.0-99.0 [facility] Comment on above: Performed By: #### C BC #### [facility] Laboratory [address] [place] [address] Dr. Danielle Penaloza MONO # 0.5 103/ul Normal 0.3-0.8 [facility] Comment on above: Performed By: #### C BC #### [facility] Laboratory [address] [place] [address] Dr. Danielle Penaloza Monocytes/100 WBC (Bld) 6.0 % Normal 1.7-12.0 [facility] Comment on above: Performed By: #### C BC #### [facility] Laboratory [address] [place] [address] Dr. Danielle Penaloza NEUT # 5.5 103/ul Normal 1.4-6.5 [facility] Comment on above: Performed By: #### C BC #### [facility] Laboratory [address] [place] [address] Dr. Danielle Penaloza Neutrophils/100 WBC (Bld) 68.7 % Normal 43.0-75.[address] [facility] Comment on above: Performed By: #### C BC #### [facility] Laboratory [address] [place] [address] Dr. Danielle Penaloza Platelet mean volume (Bld) [Entitic vol] 9.9 fL Normal 9.5-13.[address] [facility] Comment on above: Performed By: #### C BC #### [facility] Laboratory [address] [place] [address] Dr. Danielle Penaloza PLT 186 103/ul Normal 150-450 [facility] Comment on above: Performed By: #### C BC #### [facility] Laboratory [address] [place] [address] Dr. Danielle Penaloza RBC 5.01 106/ul Normal 4.20-5.[address] [facility] Comment on above: Performed By: #### C BC #### [facility] Laboratory [address] [place] [address] Dr. Danielle Penaloza WBC 8.1 103/ul Normal 4.0-11.[address] [facility] Comment on above: Performed By: #### C BC #### [facility] Laboratory [address] [place] [address] Dr. Danielle Penaloza PROF CHEM 8 (BAS METB)on Anion gap [Moles/Vol] 10.8 mmol/L Normal [facility] Comment on above: Performed By: #### B MP, TSH #### [facility] Laboratory [address] [place] [address] Dr. Danielle Penaloza Calcium [Mass/Vol] 9.2 mg/dL Normal 8.5-10.1 [facility] Comment on above: Performed By: #### B MP, TSH #### [facility] Laboratory [address] [place] [address] Dr. Danielle Penaloza Chloride [Moles/Vol] 103 mmol/L Normal 98-[address] [facility] Comment on above: Performed By: #### B MP, TSH #### [facility] Laboratory [address] [place] [address] Dr. Danielle Penaloza CO2 [Moles/Vol] 30.5 mmol/L Normal 21.0-32.0 [facility] Comment on above: Performed By: #### B NELSY, TSH #### [facility] Laboratory [address] [place] [address] Dr. Danielle Penaloza Creatinine [Mass/Vol] 0.63 mg/dL Normal 0.55-1.[address] [facility] Comment on above: Performed By: #### B NELSY, TSH #### [facility] Laboratory [address] [address] [address] Danielle Penaloza EGFR-AF ITALIAN >60 Normal >=60 [facility] Comment on above: Performed By: #### B NELSY, TSH #### [facility] Laboratory [address] [place] [address] Dr. Danielle Penaloza EGFR-NON AF ITALIAN >60 Normal >=[address] [facility] Comment on above: Performed By: #### B NELSY, TSH #### [facility] Laboratory [address] [place] [address] Dr. Danielle Penaloza Glucose [Mass/Vol] 101 mg/dL Normal 74-106 [facility] Comment on above: Performed By: #### B NELSY, TSH #### [facility] Laboratory [address] [place] [address] Dr. Danielle Penaloza Potassium [Moles/Vol] 4.3 mmol/L Normal 3.5-5.[address] [facility] Comment on above: Performed By: #### B NELSY, TSH #### [facility] Laboratory [address] [address] [address] Danielle Penaloza Sodium [Moles/Vol] 140 mmol/L Normal 136-145 [facility] Comment on above: Performed By: #### B NELSY, TSH #### [facility] Laboratory [address] [place] [address] Dr. Danielle Penaloza Urea nitrogen [Mass/Vol] 17.0 mg/dL Normal 7.0-18.[address] [facility] Comment on above: Performed By: #### B NELSY, TSH #### [facility] Laboratory [address] [place] [address] Dr. Danielle Penaloza Urea nitrogen/Creatinine [Mass ratio] 27.0 mg/mg Normal [facility] Comment on above: Performed By: #### B MP, TSH #### [facility] Laboratory [address], [place] [address] Dr. Danielle Penaloza TSHon 09-16-2022 TSH 2.028 uIU/mL Normal 0.358-3.740 [facility] Comment on above: Performed By: #### B MP, TSH #### [facility] Laboratory [address], [place] [address] Dr. Danielle Penaloza VC COMP CONSULTATIONon 09-16 VC COMP CONSULTATION Patient: NAYANA NOLASCO Exam Date: 09/16/2022 : 1950 Gender:F Ordering : SHAIKH Quirino VILLAGRAN . Admission #: [id number] Family : Order #: [id number] CLICK HERE TO VIEW EXAM RADIOLOGY REPORT [...] arterial disease 5. CEAP: C3, AP, AP, ND PLAN: 1. Use of compression stockings 2. [...] Boudreaux M.D. on 09/16/2022 at 15:[address] [facility] VC VENOUS REFLUX CHARLIE LMTon 0 09-16-2022 VC VENOUS REFLUX CHARLIE LMT Patient: BERENICE NOLASCO Exam Date: 09/16/2022 : 1950 Gender:F Ordering : SHAIKH Quirino VILLAGRAN . Admission #: [id number] Family : Order #: [id number] CLICK HERE TO VIEW EXAM RADIOLOGY REPORT [...] thrombus. Compressibility: Normal. Flow: Deep venous reflux. Chemical Sprayer: Prox medial lower leg perf measures 4.3 [...] Boudreaux M.D. on 09/16/2022 at 15:[address] [facility] XR CHEST PA AND LATERALon XR [...] Degenerative changes of the thoracic spine. Normal [facility] XR Chest PA and Lateralon Findings and [...] abnormality. Degenerative changes of the thoracic spine. [facility] Radiology Study observation (narrative) [facility] XR Chest PA and LateralOrder ed By: Silvestre Rivera on 09-15-2022 [facility] Work Phone: ECHOCARDIO M/2D COMPLETEon 1 ECHOCARDIO M/2D COMPLETE Patient: BERENICE NOLASCO Exam Date: 06/22/2022 : 1950 Gender:F Ordering : SHAIKH Quirino VILLAGRAN . Admission #: [id number] Family : APOLINAR HENRY Order #: [id number] CLICK HERE TO VIEW EXAM ECHOCARDIOGRAM REPORT [...] Mc M.D. on 06/23/2022 at 14:19 Normal [facility] FASTINGon 06-16-2022 A:G RATIO 1.6 RATIO Normal 1.3-2.2 [facility] Comment on above: Performed By: #### C MPF #### Testing performed at [facility] [address] [place] [address] ALBUMIN 4.4 G/dl Normal 3.5-5.0 [facility] Comment on above: Performed By: #### C MPF #### Testing performed at [facility] [address] [place] [address] ALP [Catalytic activity/Vol] 124 U/L Normal 38-126 [facility] Comment on above: Performed By: #### C MPF #### Testing performed at [facility] [address] [place] [address] ALT [Catalytic activity/Vol] 35 U/L High <35 [facility] Comment on above: Performed By: #### C MPF #### Testing performed at [address] [address] AST [Catalytic activity/Vol] 31 U/L Normal 14-36 [facility] Comment on above: Performed By: #### C MPF #### Testing performed at [address] [address] Bilirubin [Mass/Vol] 0.5 mg/dL Normal 0.2-1.3 [facility] Comment on above: Performed By: #### C MPF #### Testing performed at [address] [address] Calcium [Mass/Vol] 8.8 mg/dL Normal 8.4-10.2 [facility] Comment on above: Performed By: #### C MPF #### Testing performed at [facility] [address] [place] [address] Chloride [Moles/Vol] 102 mmol/L Normal 98-107 [facility] Comment on above: Result Comment: Mendez caraballo note: Triglyceride levels of 600mg/dL or higher may positively bias chloride results by approximately 2.1 mmol Performed By: #### C MPF #### Testing performed at [facility] [address] [place] [address] CO2 [Moles/Vol] 28 mmol/L Normal 22-30 [facility] Comment on above: Performed By: #### C MPF #### Testing performed at [facility] [address] [id number] Creatinine [Mass/Vol] 0.60 mg/dL Low 0.7-1.2 [facility] Comment on above: Performed By: #### C MPF #### Testing performed at [facility] [address] [id number] EST. GFR, 126 ml/min/1.73sq.m Normal [facility] Comment on above: Performed By: #### C MPF #### Testing performed at [facility] [address] [place] [address] EST. GFR,Non 104 ml/min/1.73sq.m [facility] Comment on above: Performed By: #### C MPF #### [place] [address] GFR Information Average GFR for 70+ years old = 75. Normal [facility] Comment on above: Result Comment: Cognos kurtis Kidney disease, GFR = <60. Kidney failure, GFR = <15. The GFR estimate is not adjusted for extreme body surface area or acute process, nor has it been validated for women or ethnic groups other than and . Testing performed at [place] [address] Performed By: #### C MPF #### [place] [address] Glucose [Mass/Vol] 98 mg/dL Normal 70-100 [facility] Comment on above: Result Comment: NORMAL <100 mg/dL PREDIABETES 101-126 mg/dL DIABETES 126 mg/dL or higher Performed By: #### C MPF #### [place] [address] Potassium [Moles/Vol] 4.3 mmol/L Normal 3.5-5.1 [facility] Comment on above: Performed By: #### C MPF #### [place] [address] Protein [Mass/Vol] 7.2 g/dL Normal 6.3-8.2 [facility] Comment on above: Performed By: #### C MPF #### Testing performed at [facility] [address] [place] [address] Sodium [Moles/Vol] 139 mmol/L Normal 137-145 [facility] Comment on above: Performed By: #### C MPF #### Testing performed at [facility] [address] [place] [address] Urea nitrogen [Mass/Vol] 14 mg/dL Normal 7-20 [facility] Comment on above: Performed By: #### C MPF #### Testing performed at [facility] [address] [place] [address] FREE T3on 03-24-2022 FREE T3 2.69 pg/mlL Normal 2.18-3.98 [facility] Comment on above: Performed By: #### B MP, TSH #### [facility] Laboratory [address] [address] [address] Danielle Penaloza TSHon 03-24-2022 TSH 2.001 uIU/mL Normal 0.358-3.740 [facility] Comment on above: Performed By: #### T SH, FT3 #### [facility] Laboratory [address] [address] [address] Danielle Penaloza Covid-19 PCR ([facility])on 02-12 SARS-CoV-2 (COVID-19) RNA ADELAIDA+probe Ql (Unsp spec) Not detected Normal NOT DETECTED [facility] Comment on above: Result Comment: This test is not yet approved or cleared by the [place] FDA. When there are no FDA-approved or cleared tests available, and other criteria are met, FDA can make tests available under an emergency access mechanism called an Emergency Use Authorization (EUA). The EUA for this test is supported by the Application Architect Manager of Health and Human Service's (HHS's) declaration [...] SARS-CoV-2. Performed By: #### C VDTB #### [facility] Laboratory [address] [address] [address] Danielle Penaloza Operative Reporton 0 Operative Report MR#: [id number] [facility] Pt. Name: Berenice Nolasco Room #: 0C Discharge Date: Birthdate: 1950 OPERATIVE REPORT DATE OF SURGERY: 06/07/2020 SURGEON: Adam Skinner M.D. PREOPERATIVE DIAGNOSIS: Right knee medial and lateral meniscal tears. POSTOPERATIVE DIAGNOSES: 1. Right knee medial and lateral meniscal tears. 2. Right knee Hoffa's fat pad hypertrophy and inflammation. WILL CALL CLERK: Bindu Rick M.D. ANESTHESIA: General. PROCEDURES [...] Skinner M.D. Date Trans: 06/07/2020 09:06 Sonny/irena [id number] cc: Trino Montiel M.D. [address] [facility] [facility] [address] [place] [facility] POC GLUCOSE LABon 06-07-2020 Glucose [Mass/Vol] 109 mg/dL High 70-100 [facility] Comment on above: Performed By: #### 8 5499 #### [address] *SARS-CoV-2 COVID-19on 06-04 [id number] Not Detected Normal Not Detected [facility] Comment on above: Order Comment: The A ptima SARS-CoV-2 assay is a nucleic acid amplification test intended for the qualitative detection of RNA from SARS-CoV-2 isolated and purified from nasopharyngeal (SUPERVISOR PIPELINE),oropharyngeal (OP), nasal swab, sputum, and bronchoalveolar lavage (BAL) specimens from patients with signs and symptoms of infection who are suspected of COVID-19. Results are for the identification of SARS-CoV-2 RNA. The SARS-CoV-2 RNA is generally detectable during the acute phase of infection. The Aptima SARS-CoV-2 Assay on the [employer] and [employer] Fusion system is intended for use by laboratory personnel specifically instructed and trained in the operation of the [employer] and [employer] Fusion system. The Aptima SARS-CoV-2 assay is [...] information. Performed By: #### 3 1792 #### [address] KNEE RIGHT 3 [facility] 0 KNEE RIGHT 3 [facility] Department of Radiology [address] [place] [phone] Patient Name: BERENICE NOLASCO : 1950 Sex: F Age: Race: White Pt. Location: 84 Patient Status: O Ordered Date: 01/22/2020 11:35:00 [...] reports Electronically signed: DELANO BLANCO. Transcribed by: [email or web address], User Resident: YONY PAN Electronically Signed by: DELANO BLANCO @ 01/22/2020 02:18 PM I personally read this/these film(s) with this resident Normal [facility] ED PROV NOTEon 08-06-2018 Protein mass conc HNO ID: [id number] thor: Cas Estrada: (none)Author Type: PhysicianType: ED Provider NotesFiled: 08/13/2018 10:43 AMNote Text:[facility] [place] [address]MMTEFL INFORMATION MANAGEMENTEMERGENCY DEPARTMENT REPORTPatient: LEILABERENICE DIXON JOEL A M.D. as dictated by GRUPO BROUSSARD, MELINA-[id number] FStatus: DEP ER EDDate of Service: [...] M.D. Signed By: CAS CANTU M.D.Tests performed at:[facility] [place], [place] [phone] Normal [facility] ED REPORTon 08-06-2018 ED REPORT [place], [place] [address]LFXFLA INFORMATION MANAGEMENTEMERNORTHWEST MISSISSIPPI MEDICAL CENTERCY DEPARTMENT REPORTPatient: LEILABERENICE DIXON JOEL A M.D. as dictated by GRUPO BROUSSARD, MELINA-[id number] FStatus: DEP ER EDDate of Service: [...] of the plan of care will be dischargedhome.[facility]. 08/13/18 1027 CAS CANTU M.D.cc: CAS CANTU M.D. << Signature on File>> Reported By: CAS CANTU M.D. Signed By: CAS CANTU M.D.Tests performed at:[address] [phone] Normal [facility] BCon 08-05-2018 BC No Growth Normal [facility] Comment on above: Performed By: #### L 100.0440 ####ML - UGVHRAJGDJ[address] [place] [address] BC No Growth Normal [facility] Comment on above: Performed By: #### M 105.0000 ####ML - HZYBYCTZKX[address] [place] [address] [facility] Anion gap 3 molar conc 17.5 mmol/L Normal 15-22 [facility] Comment on above: Performed By: #### L 100.0010, L301.0120 ####ML - YGMUSELDFS[address] [place] [address] Calcium mass conc 8.7 mg/dL Low 8.8-10.2 [facility] Comment on above: Performed By: #### L 100.0010, L301.0120 ####ML - [facility] UJWGAGZHUR[address] [place] [address] Chloride molar conc 101 mmol/L Normal 98-107 [facility] Comment on above: Performed By: #### L 100.0010, L301.0120 ####ML - [facility] MBSACVLAIL[address] [place] [address] Creatinine mass conc 0.53 mg/dL Normal 0.50-0.90 [facility] Comment on above: Performed By: #### L 100.0010, L301.0120 ####ML - [facility] WGKDNMCUML[address] [place] [address] eGFR if AFR MELISSA > 60 ml/min/1.73m2 Normal [facility] Comment on above: Result Comment: eGFR >= [...] (www.nkdep.nih.gov). Performed By: #### L 100.0010, L301.0120 ####[facility] VGAYAOICWF[address] [place] [address] eGFR nonAFR Melissa > 60 ml/Min/1.73m2 Normal [facility] Comment on above: Performed By: #### L 100.0010, L301.0120 ####[facility] KSKCTGVZCT[address] [place] [address] Glucose mass conc 122 mg/dL High 82-115 [facility] Comment on above: Performed By: #### L 100.0010, L301.0120 ####[facility] E[address] [place] [address] Potassium molar conc 3.5 mmol/L Normal 3.5-5.0 [facility] Comment on above: Performed By: #### L 100.0010, L301.0120 ####[facility] X[address] [place] [address] Sodium molar conc 138 mmol/L Normal 135-145 [facility] Comment on above: Performed By: #### L 100.0010, L301.0120 ####[facility] TR[address] [place] [address] TCO2 23 mmol/L Normal 22-29 [facility] Comment on above: Performed By: #### L 100.0010, L301.0120 ####[facility] NKBBZVEAYU[address] [place] [address] Urea nitrogen mass conc 14 mg/dL Normal 8-23 [facility] Comment on above: Performed By: #### L 100.0010, L301.0120 ####[facility] Y[address]YR[address] [place] [address] CBCon 08-05-2018 Basophils Auto #/vol (Bld) 0.00 x10(3) Normal 0.00-0.10 [facility] Comment on above: Performed By: #### L 200.0010 ####[address] [address] Basophils/100 WBC Auto (Bld) 0.2 % Normal 0.0-1.0 [facility] Comment on above: Performed By: #### L 200.0010 ####ML [address] [address] Eosinophils Auto #/vol (Bld) 0.00 x10(3) Normal 0.00-0.54 [facility] Comment on above: Performed By: #### L 200.0010 ####ML [address] [address] Eosinophils/100 WBC Auto (Bld) 0.1 % Low 0.5-4.9 [facility] Comment on above: Performed By: #### L 200.0010 ####[address] [address] Erythrocyte distribution width Auto Ratio (RBC) 15.7 % Normal 12.5-15.7 [facility] Comment on above: Performed By: #### L 200.0010 ####[address] [address] Hematocrit Auto Volume Fraction (Bld) 39.4 % Normal 36.0-48.0 [facility] Comment on above: Performed By: #### L 200.0010 ####ML [address] [address] Hemoglobin mass conc (Bld) 13.8 g/dL Normal 12.0-16.0 [facility] Comment on above: Performed By: #### L 200.0010 ####ML [address] [address] Lymphocytes Auto #/vol (Bld) 0.50 x10(3) Low 1.00-3.50 [facility] Comment on above: Performed By: #### L 200.0010 ####[address] [address] Lymphocytes/100 WBC Auto (Bld) 7.8 % Low 16.0-48.0 [facility] Comment on above: Performed By: #### L 200.0010 ####ML [facility] G[address]PVXWPMC[address] [place] [address] MCH Auto Entitic mass (RBC) 27.6 pg Low 28.5-32.9 [facility] Comment on above: Performed By: #### L 200.0010 ####ML [address] [address] MCHC Auto mass conc (RBC) 35.1 g/dL Normal 33.0-36.0 [facility] Comment on above: Performed By: #### L 200.0010 ####ML [address] [address] MCV Auto Entitic volume (RBC) 78.7 fL Low 80.0-99.0 [facility] Comment on above: Performed By: #### L 200.0010 ####ML [address] [address] Monocytes Auto #/vol (Bld) 0.40 x10(3) Normal 0.30-0.80 [facility] Comment on above: Performed By: #### L 200.0010 ####ML [address] [address] Monocytes/100 WBC Auto (Bld) 5.4 % Normal 4.3-11.2 [facility] Comment on above: Performed By: #### L 200.0010 ####ML [address] [address] Neutrophils Auto #/vol (Bld) 5.70 x10(3) Normal 1.40-6.50 [facility] Comment on above: Performed By: #### L 200.0010 ####ML [address] [address] Neutrophils/100 WBC Auto (Bld) 86.5 % High 45.0-73.0 [facility] Comment on above: Performed By: #### L 200.0010 ####ML [address] [address] Platelet mean volume Auto Entitic volume (Bld) 8.1 fL Normal 7.5-9.5 [facility] Comment on above: Performed By: #### L 200.0010 ####[facility] [place] [address] Platelets Auto #/vol (Bld) 115 X10(3) Low 150-450 [facility] Comment on above: Performed By: #### L 200.0010 ####[address] [address] RBC Auto #/vol (Bld) 5.00 x10(6) Normal 3.30-5.00 [facility] Comment on above: Performed By: #### L 200.0010 ####ML - [address] [address] WBC Auto #/vol (Bld) 6.6 x10(3) Normal 4.5-10.0 [facility] Comment on above: Performed By: #### L 200.0010 ####ML [address] [address] CHEST (TWO VIEWS) - CXRon CHEST (TWO VIEWS) - CXR [address] [address]Dmtu: BERENICE NOLASCO KPhys: GRUPO BROUSSARD SUPERVISOR PIPELINE-C (ED): [birth year] Age: 68 Sex: FAcct: [id number] Loc: EDExam Date: 08/05/18 Status: REG ERRadiology No.: [id number] Number: [id number] # Type/[id number] RAD / CHEST (TWO VIEWS) - CXRTwo-view chestClinical statement: Weakness. History of right mastectomyComparison study: NoneFindings:The heart size is normal. The left diaphragm is elevated. There is nopulmonary consolidation. No pneumothorax. Multilevel degenerative changes seenin the spine. Surgical clips identified in the right axilla.Impression:Elevated left diaphragm. No focal consolidationProfessional interpretation provided by [facility].Thank you for this referral.< >Reported By: XANDER MARTINEZ M.D.Signed In NovaPro By: XANDER MARTINEZ M.D. << Signature on File>> Reported By: XANDER MARTINEZ M.D. Signed By: XANDER MARTINEZ M.D.Tests performed at:[address] [phone] Normal [facility] CT BRAIN WITHOUT CONTRAST- C TBon 08-05-2018 CT BRAIN WITHOUT CONTRAST- CTB [address] [id number]: BERENICE NOLASCO KPhys: GRUPO [employer]OUSSARD SUPERVISOR PIPELINE-C (ED): 50 Age: 68 Sex: FAcct: [id number] Loc: EDExam Date: 08/05/18 Status: REG ERRadiology No.: [id number] Number: [id number] # Type/[id number] CT / CT BRAIN WITHOUT CONTRAST- CTBCT [...] algorithm.Professional interpretation provided by [facility] [place] [address].Thank you for this referral.< >Reported By: XANDER MARTINEZ M.D.Signed In NovaPro By: XANDER MARTINEZ M.D. << Signature on File>> Reported By: XANDER MARTINEZ M.D. Signed By: XANDER MARTINEZ M.D.Tests performed at:[address] [phone] Normal [facility] ED PROV NOTEon 08-05-2018 Protein mass conc HNO ID: [id number] thor: Cas Estrada: (none)Author Type: PhysicianType: ED Provider NotesFiled: 08/13/2018 10:42 AMNote Text:[place], [place] [address]XXCLKU INFORMATION MANAGEMENTEMERGENCY DEPARTMENT REPORTPatient: BERENICE NOLASCO JOEL A M.D.[id number]/[birth year] FStatus: DEP ER EDDate of Service: 08/05/18CHIEF [...] are downgoing. There is no pronator drift. Tavfyrvcdrtq-ku-egxv, oveq-je-sgzj.EMERGENCY DEPARTMENT COURSESent for CT which was negative. [...] M.D. Signed By: CAS CANTU M.D.Tests performed at:[address] [phone] Normal [facility] EMERGENCY DEPARTMENT REPORTo n 08-05-2018 EMERGENCY DEPARTMENT REPORT [place], [place] [id number] INFORMATION MANAGEMENTEMERGENCY DEPARTMENT REPORTPatient: BERENICE NOLASCO JOEL A M.D.[id number] 68 FStatus: DEP ER EDDate of Service: [...] are downgoing. There is no pronatordrift. Normal zintxq-dd-xyjy, iuuh-pn-eelt.EMERGENCY DEPARTMENT COURSESent for CT which was negative. Labs were all pretty much negative and no UTI.CLINICAL DIAGNOSISCephalgia.Pipo harged to home to follow up with [...] M.D. Signed By: CAS CANTU M.D.Tests performed at:[address] [phone] Normal [facility] FLU A & Bon 08-05-2018 FLU A Negative Normal NEGATIVE [facility] Comment on above: Order Comment: What is the source+ SWAB Performed By: #### L 400.0006 ####[address] [address] FLU B Negative Normal NEGATIVE [facility] Comment on above: Order Comment: What is the source+ SWAB Result Comment: Infe ction due to Flu A and Flu B can not be ruled out. Flu Aand/or Flu B antigen in the sample may be below detectionlimit of the test. The gold standard for Flu A and Flu B vicente viral culture. Performed By: #### L 400.0006 ####[address] [address] LACTIC ACIDon 08-05-2018 Lactate molar conc 0.8 mmol/L Normal 0.5-2.0 [facility] Comment on above: Performed By: #### L 100.0440 ####[address] [address] TROPONIN Ton 08-05-2018 Troponin T.cardiac mass conc ug/L Normal 0-0.010 [facility] Comment on above: Performed By: #### L 100.0010, L301.0120 ####[address] [place] [address] UA W/C&Son 08-05-2018 Bilirubin Ql (U) Negative Normal NEGATIVE [facility] Comment on above: Order Comment: Urine Specimen Source+ CLEAN CATCH Performed By: #### L 200.3001 ####ML - [id number] [place] [address] Color Nom (U) YELLOW Normal YELLOW [facility] Comment on above: Order Comment: Urine Specimen Source+ CLEAN CATCH Performed By: #### L 200.3001 ####ML - UH [id number] [place] [address] Glucose Ql (U) Negative Normal NEGATIVE [facility] Comment on above: Order Comment: Urine Specimen Source+ CLEAN CATCH Performed By: #### L 200.3001 ####ML - [id number] [place] [address] Hemoglobin Test strip Ql (U) Negative Normal NEGATIVE [facility] Comment on above: Order Comment: Urine Specimen Source+ CLEAN CATCH Performed By: #### L 200.3001 ####ML - [id number] [place] [address] Leukocyte esterase Test strip Ql (U) Negative Normal NEGATIVE [facility] Comment on above: Order Comment: Urine Specimen Source+ CLEAN CATCH Performed By: #### L 200.3001 ####ML - UH [id number] [place] [address] Nitrite Test strip Ql (U) Negative Normal NEGATIVE [facility] Comment on above: Order Comment: Urine Specimen Source+ CLEAN CATCH Performed By: #### L 200.3001 ####ML - UH [id number] [place] [address] pH Test strip (U) 6.0 [pH] Normal 5.0-8.0 [facility] Comment on above: Order Comment: Urine Specimen Source+ CLEAN CATCH Performed By: #### L 200.3001 ####ML - [facility] [id number] [place] [address] Protein Test strip Ql (U) Negative Normal NEGATIVE [facility] Comment on above: Order Comment: Urine Specimen Source+ CLEAN CATCH Performed By: #### L 200.3001 ####ML - U[facility] [id number] [place] [address] URINE APPEARANC CLEAR Normal CLEAR [facility] Comment on above: Order Comment: Urine Specimen Source+ CLEAN CATCH Performed By: #### L 200.3001 ####ML - U[facility] [id number] [place] [address] URINE KETONE Negative Normal NEGATIVE [facility] Comment on above: Order Comment: Urine Specimen Source+ CLEAN CATCH Performed By: #### L 200.3001 ####ML - U[facility] [id number] [place] [address] URINE SPECIFIC <=1.005 Normal 1.001-1.035 [facility] Comment on above: Order Comment: Urine Specimen Source+ CLEAN CATCH Performed By: #### L 200.3001 ####ML - U[facility] [id number] [place] [address] URINE UROBILINO 0.2 EU/DL Normal 0.2-1.0 [facility] Comment on above: Order Comment: Urine Specimen Source+ CLEAN CATCH Performed By: #### L 200.3001 ####ML - U[facility] [id number] [place] [address] Coding Summary.on 07-28-2017 Coding Summary. CODING DATE: 017 [facility] STATUS: PAYOR: Medicare ADMIT DX: [...] Good Date Saved: 07/28/2017 10:55 am Normal [facility] Vital Signs Date Time Vital Sign Value Performing Clinician Facility 11-13-2024 13:34-0500 Body height 167.64 cm [facility] 11-13-2024 13:34-0500 Body mass index (BMI) [Ratio] 31.9 kg/m2 [facility] 11-13-2024 13:34-0500 Body weight 89.8 kg [facility] 11-13-2024 13:34-0500 Diastolic blood pressure 75 mm[Hg] [facility] 11-13-2024 13:34-0500 Heart rate 72 /min [facility] 11-13-2024 13:34-0500 Respiratory rate 18 /min [facility] 11-13-2024 13:34-0500 SaO2% (BldA) [Mass fraction] 92 % [facility] 11-13-2024 13:34-0500 Systolic blood pressure 115 mm[Hg] [facility] 07-11-2024 14:08-0400 Body height 167.6 cm Debbi Alicia SUPERVISOR PIPELINE Work Phone: [facility] 07-11-2024 14:08-0400 Body mass index (BMI) [Ratio] 31.64 kg/m2 Debbi Alicia SUPERVISOR PIPELINE Work Phone: [facility] 07-11-2024 14:08-0400 Body temperature 96.01 [degF] Debbi Alicia SUPERVISOR PIPELINE Work Phone: [facility] 07-11-2024 14:08-0400 Body weight 88.91 kg Debbi Alicia SUPERVISOR PIPELINE Work Phone: [facility] 07-11-2024 14:08-0400 Diastolic blood pressure 78 mm[Hg] Debbi Alicia SUPERVISOR PIPELINE Work Phone: [facility] 07-11-2024 14:08-0400 Heart rate 127 /min Debbi Alicia SUPERVISOR PIPELINE Work Phone: [facility] 07-11-2024 14:08-0400 Respiratory rate 16 /min Debbi Alicia SUPERVISOR PIPELINE Work Phone: [facility] 07-11-2024 14:08-0400 SaO2% (BldA) [Mass fraction] 94 % Debbi Alicia SUPERVISOR PIPELINE Work Phone: [facility] 07-11-2024 14:08-0400 Systolic blood pressure 142 mm[Hg] Debbi Alicia SUPERVISOR PIPELINE Work Phone: [facility] 05-17-2024 15:10-0400 Body height 167.6 cm Cecile Karina DO Work Phone: [facility] 05-17-2024 15:10-0400 Body mass index (BMI) [Ratio] 31.8 kg/m2 Cecile Karina DO Work Phone: [facility] 05-17-2024 15:10-0400 Body weight 89.36 kg Cecile Karina DO Work Phone: [facility] 05-17-2024 15:10-0400 Diastolic blood pressure 92 mm[Hg] Cecile Karina DO Work Phone: [facility] 05-17-2024 15:10-0400 Heart rate 72 /min Cecile Karina DO Work Phone: [facility] 05-17-2024 15:10-0400 SaO2% (BldA) [Mass fraction] 94 % Cecile Karina DO Work Phone: [facility] 05-17-2024 15:10-0400 Systolic blood pressure 146 mm[Hg] Cecile Karina DO Work Phone: [facility] 05-08-2024 13:13-0400 Body height 167.64 cm [facility] 05-08-2024 13:13-0400 Body mass index (BMI) [Ratio] 32.1 kg/m2 [facility] 05-08-2024 13:13-0400 Body weight 90.34 kg [facility] 05-08-2024 13:13-0400 Diastolic blood pressure 77 mm[Hg] [facility] 05-08-2024 13:13-0400 Heart rate 77 /min [facility] 05-08-2024 13:13-0400 Respiratory rate 16 /min [facility] 05-08-2024 13:13-0400 SaO2% (BldA) [Mass fraction] 100 % [facility] 05-08-2024 13:13-0400 Systolic blood pressure 133 mm[Hg] [facility] 01-31-2024 13:17-0400 Body height 167.64 cm [facility] 01-31-2024 13:17-0400 Body mass index (BMI) [Ratio] 32.3 kg/m2 [facility] 01-31-2024 13:17-0400 Body weight 90.77 kg [facility] 01-31-2024 13:17-0400 Diastolic blood pressure 77 mm[Hg] [facility] 01-31-2024 13:17-0400 Heart rate 75 /min [facility] 01-31-2024 13:17-0400 Respiratory rate 16 /min [facility] 01-31-2024 13:17-0400 SaO2% (BldA) [Mass fraction] 92 % [facility] 01-31-2024 13:17-0400 Systolic blood pressure 115 mm[Hg] [facility] 01-21-2024 14:06-0400 Body temperature 96.9 [degF] Dr. Shaikh Villagran Work Phone: [facility] 01-21-2024 14:06-0400 Diastolic blood pressure 79 mm[Hg] Dr. Shaikh Villagran Work Phone: [facility] 01-21-2024 14:06-0400 Heart rate 82 /min Dr. Shaikh Villagran Work Phone: [facility] 01-21-2024 14:06-0400 Respiratory rate 16 /min Dr. Shaikh Villagran Work Phone: [facility] 01-21-2024 14:06-0400 SaO2% (BldA) [Mass fraction] 94 % Dr. Shaikh Villagran Work Phone: [facility] 01-21-2024 14:06-0400 Systolic blood pressure 125 mm[Hg] Dr. Shaikh Villagran Work Phone: [facility] 01-21-2024 11:45-0400 Inhaled oxygen flow rate 2 L/min Dr. Shaikh Villagran Work Phone: [facility] 01-21-2024 06:23-0400 Body height 167.[address] Shaikh Villagran Work Phone: [facility] 01-21-2024 06:23-0400 Body mass index (BMI) [Ratio] 32.5 kg/m2 Dr. Shaikh Villagran Work Phone: [facility] 01-21-2024 06:23-0400 Body weight 91.[address] Shaikh Villagran Work Phone: [facility] 01-05-2024 14:51-0400 Body height 167.[address] Shaikh Villagran Work Phone: [facility] 01-05-2024 14:51-0400 Body mass index (BMI) [Ratio] 31.8 kg/m2 Dr. Shaikh Villagran Work Phone: [facility] 01-05-2024 14:51-0400 Body temperature 98.1 [degF] Dr. Shaikh Villagran Work Phone: [facility] 01-05-2024 14:51-0400 Body weight 89.[address] Shaikh Villagran Work Phone: [facility] 01-05-2024 14:51-0400 Diastolic blood pressure 84 mm[Hg] Dr. Shaikh Villagran Work Phone: [facility] 01-05-2024 14:51-0400 Heart rate 71 /min Dr. Shaikh Villagran Work Phone: [facility] 01-05-2024 14:51-0400 Respiratory rate 16 /min Dr. Shaikh Villagran Work Phone: [facility] 01-05-2024 14:51-0400 SaO2% (BldA) [Mass fraction] 93 % Dr. Shaikh Villagran Work Phone: [facility] 01-05-2024 14:51-0400 Systolic blood pressure 124 mm[Hg] Dr. Shaikh Villagran Work Phone: [facility] 12-22-2023 14:33-0400 Body height 167.[address] Apolinar Henry Work Phone: [facility] 12-22-2023 14:33-0400 Body mass index (BMI) [Ratio] 32.6 kg/m2 Dr. Apolinar Henry Work Phone: [facility] 12-22-2023 14:33-0400 Body temperature 98.8 [degF] Dr. Apolinar Henry Work Phone: [facility] 12-22-2023 14:33-0400 Body weight 91.[address] Apolinar Henry Work Phone: [facility] 12-22-2023 14:33-0400 Diastolic blood pressure 76 mm[Hg] Dr. Apolinar Henry Work Phone: [facility] 12-22-2023 14:33-0400 Heart rate 71 /min Dr. Apolinar Henry Work Phone: [facility] 12-22-2023 14:33-0400 Respiratory rate 16 /min Dr. Apolinar Henry Work Phone: [facility] 12-22-2023 14:33-0400 SaO2% (BldA) [Mass fraction] 92 % Dr. Apolinar Henry Work Phone: [facility] 12-22-2023 14:33-0400 Systolic blood pressure 129 mm[Hg] Dr. Apolinar Henry Work Phone: [facility] 12-14-2023 15:53-0400 Body height 167.[address] Apolinar Henry Work Phone: [facility] 12-14-2023 15:53-0400 Body mass index (BMI) [Ratio] 32.3 kg/m2 Dr. Apolinar Henry Work Phone: [facility] 12-14-2023 15:53-0400 Body temperature 97.9 [degF] Dr. Apolinar Henry Work Phone: [facility] 12-14-2023 15:53-0400 Body weight 90.[address] Apolinar Henry Work Phone: [facility] 12-14-2023 15:53-0400 Diastolic blood pressure 83 mm[Hg] Dr. Apolinar Henry Work Phone: [facility] 12-14-2023 15:53-0400 Heart rate 70 /min Dr. Apolinar Henry Work Phone: [facility] 12-14-2023 15:53-0400 Respiratory rate 16 /min Dr. Apolinar Henry Work Phone: [facility] 12-14-2023 15:53-0400 SaO2% (BldA) [Mass fraction] 95 % Dr. Apolinar Henry Work Phone: [facility] 12-14-2023 15:53-0400 Systolic blood pressure 128 mm[Hg] Dr. Apolinar Henry Work Phone: [facility] 12-09-2023 15:16-0400 Body height 167.64 cm [facility] 12-09-2023 15:16-0400 Body mass index (BMI) [Ratio] 32.4 kg/m2 [facility] 12-09-2023 15:16-0400 Body weight 91.18 kg [facility] 11-01-2023 12:53-0500 Body height 167.64 cm MD Shaikh Villagran Work Phone: [facility] 11-01-2023 12:53-0500 Body mass index (BMI) [Ratio] 32.9 kg/m2 MD Shaikh Villagran Work Phone: [facility] 11-01-2023 12:53-0500 Body weight 92.58 kg MD Shaikh Villagran Work Phone: [facility] 11-01-2023 12:53-0500 Diastolic blood pressure 86 mm[Hg] MD Shaikh Villagran Work Phone: [facility] 11-01-2023 12:53-0500 Heart rate 71 /min MD Shaikh Villagran Work Phone: [facility] 11-01-2023 12:53-0500 Respiratory rate 18 /min MD Shaikh Villagran Work Phone: [facility] 11-01-2023 12:53-0500 SaO2% (BldA) [Mass fraction] 95 % MD Shaikh Villagran Work Phone: [facility] 11-01-2023 12:53-0500 Systolic blood pressure 127 mm[Hg] MD Shaikh Villagran Work Phone: [facility] 08-30-2023 10:00-0500 Body height 167.64 cm MD Shaikh Villagran Work Phone: [facility] 08-30-2023 10:00-0500 Body weight 91.98 kg MD Shaikh Villagran Work Phone: [facility] 08-30-2023 10:00-0500 Diastolic blood pressure 87 mm[Hg] MD Shaikh Villagran Work Phone: [facility] 08-30-2023 10:00-0500 Systolic blood pressure 134 mm[Hg] MD Shaikh Villagran Work Phone: [facility] 07-21-2023 13:00-0500 Body height 167.64 cm Adriana Lyn Other [employer] Other 07-21-2023 13:00-0500 Body mass index (BMI) [Ratio] 33.52 kg/m2 Adriana Fitt Other [employer] Other 07-21-2023 13:00-0500 Body weight 94.21 kg Adriana Fitt Other [employer] Other 07-05-2023 14:15-0400 Body height 167.64 cm Susanne Missler Other [employer] Other 07-05-2023 14:15-0400 Body mass index (BMI) [Ratio] 33.62 kg/m2 Susanne Missler Other [employer] Other 07-05-2023 14:15-0400 Body weight 94.48 kg Susanne Missler Other [employer] Other 07-05-2023 14:15-0400 Diastolic blood pressure 87 mm[Hg] Susanne Missler Other [employer] Other 07-05-2023 14:15-0400 Respiratory rate 18 /min Susanne Missler Other [employer] Other 07-05-2023 14:15-0400 SaO2% (BldA) [Mass fraction] 93 % Susanne Missler Other [employer] Other 07-05-2023 14:15-0400 Systolic blood pressure 133 mm[Hg] Susanne Missler Other [employer] Other 06-30-2023 15:08-0400 Body height 167.[address] Apolinar Henry Work Phone: [facility] 06-30-2023 15:08-0400 Body mass index (BMI) [Ratio] 33.5 kg/m2 Dr. Apolinar Henry Work Phone: [facility] 06-30-2023 15:08-0400 Body temperature 97.3 [degF] Dr. Apolinar Henry Work Phone: [facility] 06-30-2023 15:08-0400 Body weight 94.[address] Aploinar Henry Work Phone: [facility] 06-30-2023 15:08-0400 Diastolic blood pressure 81 mm[Hg] Dr. Apolinar Henry Work Phone: [facility] 06-30-2023 15:08-0400 Heart rate 65 /min Dr. Apolinar Henry Work Phone: [facility] 06-30-2023 15:08-0400 Respiratory rate 16 /min Dr. Apolinar Henry Work Phone: [facility] 06-30-2023 15:08-0400 SaO2% (BldA) [Mass fraction] 94 % Dr. Apolinar Henry Work Phone: [facility] 06-30-2023 15:08-0400 Systolic blood pressure 135 mm[Hg] Dr. Apolinar Henry Work Phone: [facility] 05-27-2023 10:00-0400 Body height 167.64 cm Adriana Fitt Other [employer] Other 05-27-2023 10:00-0400 Body mass index (BMI) [Ratio] 34.65 kg/m2 Adriana Fitt Other [employer] Other 05-27-2023 10:00-0400 Body weight 97.39 kg Adriana Fitt Other [employer] Other 05-05-2023 14:25-0400 Body height 167.[address] Apolinar Henry Work Phone: [facility] 05-05-2023 14:25-0400 Body mass index (BMI) [Ratio] 35 kg/m2 Dr. Apolinar Henry Work Phone: [facility] 05-05-2023 14:25-0400 Body temperature 97.7 [degF] Dr. Apolinar Henry Work Phone: [facility] 05-05-2023 14:25-0400 Body weight 98.[address] Apolinar Henry Work Phone: [facility] 05-05-2023 14:25-0400 Diastolic blood pressure 78 mm[Hg] Dr. Apolinar Henry Work Phone: [facility] 05-05-2023 14:25-0400 Heart rate 70 /min Dr. Apolinar Henry Work Phone: [facility] 05-05-2023 14:25-0400 Respiratory rate 16 /min Dr. Apolinar Henry Work Phone: [facility] 05-05-2023 14:25-0400 SaO2% (BldA) [Mass fraction] 96 % Dr. Apolinar Henry Work Phone: [facility] 05-05-2023 14:25-0400 Systolic blood pressure 120 mm[Hg] Dr. Apolinar Henry Work Phone: [facility] 03-15-2023 12:45-0400 Body height 167.64 cm Susanne Jordan Other [employer] Other 03-15-2023 12:45-0400 Body mass index (BMI) [Ratio] 36.42 kg/m2 Susanne Missler Other [employer] Other 03-15-2023 12:45-0400 Body weight 102.38 kg Susanneher Retanaler Other [employer] Other 03-15-2023 12:45-0400 Diastolic blood pressure 84 mm[Hg] Susanne Missler Other [employer] Other 03-15-2023 12:45-0400 Respiratory rate 18 /min Susanneher Retanaler Other [employer] Other 03-15-2023 12:45-0400 SaO2% (BldA) [Mass fraction] 96 % Susanne Missler Other [employer] Other 03-15-2023 12:45-0400 Systolic blood pressure 131 mm[Hg] Susanne Missler Other [employer] Other 11-18-2022 14:58-0500 Body height 167.6 cm Apolinar Henry MD Work Phone: [employer] [facility] 11-18-2022 14:58-0500 Body temperature 97 [degF] Apolinar Henry MD Work Phone: [facility] 11-18-2022 14:58-0500 Diastolic blood pressure 83 mm[Hg] Apolinar Henry MD Work Phone: [facility] 11-18-2022 14:58-0500 Heart rate 78 /min Apolinar Henry MD Work Phone: [facility] 11-18-2022 14:58-0500 Systolic blood pressure 143 mm[Hg] Apolinar Henry MD Work Phone: [facility] 10-21-2022 13:46-0500 Body height 167.6 cm Apolinar Henry MD Work Phone: 4(287)529-737269 [place] [address] 10-21-2022 13:46-0500 Body temperature 97.3 [degF] Apolinar Henry MD Work Phone: 7(978)860-604269 [place] [address] 10-21-2022 13:46-0500 Diastolic blood pressure 86 mm[Hg] Apolinar Henry MD Work Phone: 2(314)708-488969 [place] [address] 10-21-2022 13:46-0500 Heart rate 76 /min Apolinar Henry MD Work Phone: 0(470)477-745769 [place] [address] 10-21-2022 13:46-0500 Systolic blood pressure 142 mm[Hg] Apolinar Henry MD Work Phone: 9(788)436-282769 [place] [address] 10-07-2022 14:27-0500 Body height 167.6 cm Apolinar Henry MD Work Phone: 4(500)967-031469 [place] [address] 10-07-2022 14:27-0500 Body temperature 97.9 [degF] Aploinar Henry MD Work Phone: 0(061)001-939869 [place] [address] 10-07-2022 14:27-0500 Diastolic blood pressure 81 mm[Hg] Apolinar Henry MD Work Phone: 8(801)097-812069 [place] [address] 10-07-2022 14:27-0500 Heart rate 74 /min Apolinar Henry MD Work Phone: 2(311)105-096869 [place] [address] 10-07-2022 14:27-0500 Systolic blood pressure 140 mm[Hg] Apolinar Henry MD Work Phone: 5(609)079-646469 [place] [address] 09-23-2022 14:36-0500 Body height 167.6 cm Apolinar Henry MD Work Phone: 8(406)612-801969 [place] [address] 09-23-2022 14:36-0500 Body mass index (BMI) [Ratio] 35.83 kg/m2 Apolinar Henry MD Work Phone: 1(483)929-210969 [place] [address] 09-23-2022 14:36-0500 Body temperature 97.3 [degF] Apolinar Henry MD Work Phone: 6(819)493-924169 [place] [address] 09-23-2022 14:36-0500 Body weight 100.7 kg Apolinar Henry MD Work Phone: 4(983)138-221969 [place] [address] 09-23-2022 14:36-0500 Diastolic blood pressure 97 mm[Hg] Apolinar Henry MD Work Phone: 7(112)051-542069 [place] [address] 09-23-2022 14:36-0500 Heart rate 82 /min Apolinar Henry MD Work Phone: 8(454)180-978769 [place] [address] 09-23-2022 14:36-0500 Systolic blood pressure 152 mm[Hg] Apolinar Henry MD Work Phone: 8(723)127-087669 [place] [address] 08-12-2022 15:03-0500 Body height 167.6 cm Apolinar Henry MD Work Phone: 7(202)194-005169 [place] [address] 08-12-2022 15:03-0500 Body mass index (BMI) [Ratio] 35.83 kg/m2 Apolinar Henry MD Work Phone: 2(229)218-449369 [place] [address] 08-12-2022 15:03-0500 Body temperature 96.69 [degF] Apolinar Henry MD Work Phone: 9(275)751-442669 [place] [address] 08-12-2022 15:03-0500 Body weight 100.7 kg Apolinar Henry MD Work Phone: 6(259)120-996769 [place] [address] 08-05-2022 14:20-0500 Body height 167.6 cm Apolinar Henry MD Work Phone: 0(980)817-798969 [place] [address] 08-05-2022 14:20-0500 Body mass index (BMI) [Ratio] 35.83 kg/m2 Apolinar Henry MD Work Phone: 7(709)719-512369 [place] [address] 08-05-2022 14:20-0500 Body temperature 97.2 [degF] Apolinar Henry MD Work Phone: 8(325)030-451398 [place] [address] 08-05-2022 14:20-0500 Body weight 100.7 kg Apolinar Henry MD Work Phone: 0(316)328-179669 [place] [address] 08-05-2022 14:20-0500 Diastolic blood pressure 90 mm[Hg] Apolinar Henry MD Work Phone: 9(818)451-663269 [place] [address] 08-05-2022 14:20-0500 Heart rate 75 /min Apolinar Henry MD Work Phone: 1(838)029-568969 [place] [address] 08-05-2022 14:20-0500 Systolic blood pressure 156 mm[Hg] Apolinar Henry MD Work Phone: 5(399)137-487569 [place] [address] 07-22-2022 13:23-0500 Body height 167.6 cm Apolinar Henry MD Work Phone: 3(601)134-132769 [place] [address] 07-22-2022 13:23-0500 Body mass index (BMI) [Ratio] 35.83 kg/m2 Apolinar Henry MD Work Phone: 2(963)852-912069 [place] [address] 07-22-2022 13:23-0500 Body temperature 97.81 [degF] Apolinar Henry MD Work Phone: 5(806)432-876069 [place] [address] 07-22-2022 13:23-0500 Body weight 100.7 kg Apolinar Henry MD Work Phone: 4(789)318-125769 [place] [address] 07-22-2022 13:23-0500 Diastolic blood pressure 80 mm[Hg] Apolinar Henry MD Work Phone: 8(804)004-868269 [place] [address] 07-22-2022 13:23-0500 Heart rate 69 /min Apolinar Henry MD Work Phone: 5(605)628-734169 [place] [address] 07-22-2022 13:23-0500 Systolic blood pressure 133 mm[Hg] Apolinar Henry MD Work Phone: 1(421)013-513269 [place] [address] 07-15-2022 13:33-0400 Body height 167.6 cm Apolinar Henry MD Work Phone: 8(180)108-227569 [place] [address] 07-15-2022 13:33-0400 Body mass index (BMI) [Ratio] 35.83 kg/m2 Apolinar Henry MD Work Phone: 0(644)294-456069 [place] [address] 07-15-2022 13:33-0400 Body temperature 97.9 [degF] Apolinar Henry MD Work Phone: 8(551)251-904069 [place] [address] 07-15-2022 13:33-0400 Body weight 100.7 kg Apolinar Henry MD Work Phone: 1(744)196-484569 [place] [address] 07-15-2022 13:33-0400 Diastolic blood pressure 83 mm[Hg] Apolinar Henry MD Work Phone: 7(082)496-695469 [place] [address] 07-15-2022 13:33-0400 Heart rate 75 /min Apolinar Henry MD Work Phone: 5(135)909-392069 [place] [address] 07-15-2022 13:33-0400 Systolic blood pressure 140 mm[Hg] Apolinar Henry MD Work Phone: 7(463)646-536569 [place] [address] 07-09-2022 16:55-0400 Diastolic blood pressure 79 mm[Hg] Apolinar Henry MD Work Phone: 9(943)653-004569 [place] [address] 07-09-2022 16:55-0400 Heart rate 87 /min Apolinar Henry MD Work Phone: 2(556)146-506569 [place] [address] 07-09-2022 16:55-0400 Respiratory rate 18 /min Apolinar Henry MD Work Phone: 8(444)965-150369 [place] [address] 07-09-2022 16:55-0400 SaO2% (BldA) [Mass fraction] 97 % Apolinar Henry MD Work Phone: 7(035)158-861869 [place] [address] 07-09-2022 16:55-0400 Systolic blood pressure 149 mm[Hg] Apolinar Henry MD Work Phone: 9(065)393-431469 [place] [address] 07-09-2022 15:05-0400 Body temperature 97.3 [degF] Apolinar Henry MD Work Phone: 9(344)121-930069 [place] [address] 07-09-2022 08:58-0400 Body height 167.6 cm Apolinar Henry MD Work Phone: 6(563)612-287069 [place] [address] 07-09-2022 08:58-0400 Body mass index (BMI) [Ratio] 35.83 kg/m2 Apolinar Henry MD Work Phone: 5(140)173-920569 [place] [address] 07-09-2022 08:58-0400 Body weight 100.7 kg Apolinar Henry MD Work Phone: 8(205)865-438069 [place] [address] 06-30-2022 14:44-0400 Body height 167.6 cm Apolinar Henry MD Work Phone: 2(154)864-012769 [place] [address] 06-30-2022 14:44-0400 Body mass index (BMI) [Ratio] 35.83 kg/m2 Apolinar Henry MD Work Phone: 7(794)304-407269 [place] [address] 06-30-2022 14:44-0400 Body temperature 97.7 [degF] Apolinar Henry MD Work Phone: 6(579)783-777269 [place] [address] 06-30-2022 14:44-0400 Body weight 100.7 kg Apolinar Henry MD Work Phone: 7(055)349-641069 [place] [address] 06-30-2022 14:44-0400 Diastolic blood pressure 97 mm[Hg] Apolinar Henry MD Work Phone: 7(919)345-481969 [place] [address] 06-30-2022 14:44-0400 Heart rate 119 /min Apolinar Henry MD Work Phone: 7(137)980-242269 [place] [address] 06-30-2022 14:44-0400 Systolic blood pressure 148 mm[Hg] Apolinar Henry MD Work Phone: 5(324)619-110769 [place] [address] 06-16-2022 11:36-0400 Body height 167.6 cm Apolinar Henry MD Work Phone: [facility] 06-16-2022 11:36-0400 Body mass index (BMI) [Ratio] 35.99 kg/m2 Apolinar Henry MD Work Phone: 9(396)276-293298 [place] [address] 06-16-2022 11:36-0400 Body temperature 97.5 [degF] Apolinar Henry MD Work Phone: 5(260)397-968669 [place] [address] 06-16-2022 11:36-0400 Body weight 101.15 kg Apolinar Henry MD Work Phone: 2(752)522-919069 [place] [address] 06-16-2022 11:36-0400 Diastolic blood pressure 89 mm[Hg] Apolinar Henry MD Work Phone: 3(878)072-510069 [place] [address] 06-16-2022 11:36-0400 Heart rate 76 /min Apolinar Henry MD Work Phone: 6(926)778-875769 [place] [address] 06-16-2022 11:36-0400 Systolic blood pressure 148 mm[Hg] Apolinar Henry MD Work Phone: 5(248)162-548369 [place] [address] 05-20-2022 13:46-0400 Body temperature 98.01 [degF] Apolinar Henry MD Work Phone: 0(750)964-001669 [place] [address] 05-20-2022 13:46-0400 Body weight 100.7 kg Apolinar Henry MD Work Phone: 6(147)827-289869 [place] [address] 05-20-2022 13:46-0400 Diastolic blood pressure 95 mm[Hg] Apolinar Henry MD Work Phone: 4(864)109-304669 [place] [address] 05-20-2022 13:46-0400 Heart rate 80 /min Apolinar Henry MD Work Phone: 0(569)119-380398 [place] [address] 05-20-2022 13:46-0400 Systolic blood pressure 150 mm[Hg] Apolinar Henry MD Work Phone: 5(954)621-634198 [place] [address] Encounters Encounter Date Encounter Type Care Provider Facility Start: 01-05-2025 ambulatory Apolinar Ghazoul Facility :[facility] Start: 11-17-2024 ambulatory [facility] Start: 11-14-2024 End: 11-14-2024 ambulatory Apolinar Ghazoul Facility:[facility] Start: 11-13-2024 End: 11-13-2024 ambulatory [facility] Work Phone: Start: 11-13-2024 End: 11-13-2024 Patient encounter procedure [facility] Work Phone: Start: 11-01-2024 End: 11-01-2024 Refill Sh[facility] Comment on above: Hyperlipidemia, unsp ecified hyperlipidemia type (CMS/HCC) Start: 10-31-2024 End: 10-31-2024 ambulatory Apolinar Ghazoul Facility:[facility] Start: 10-10-2024 End: 10-10-2024 ambulatory Apolinar Ghazoul Facility:[facility] Start: 10-09-2024 End: 10-11-2024 Refill Shira [facility] Comment on above: Hypothyroidism, unsp ecified type (CMS/HCC); Recurrent major depressive disorder, in full remission (CMS/HCC) Start: 10-04-2024 End: 10-04-2024 ambulatory SABRINA Cisneros [facility] Start: 09-27-2024 End: 09-27-2024 ambulatory Apolinar Ghazoul Facility:[facility] Start: 09-22-2024 ambulatory Apolinar Ghazoul Facility :[facility] Start: 09-22-2024 End: 09-22-2024 ambulatory Apolinar Ghazoul Facility:[facility] Start: 09-11-2024 End: 09-11-2024 ambulatory Shaikh Kerry Villagran MD Facility:[facility] Start: 08-30-2024 End: 08-30-2024 ambulatory Apolinar Ghazoul Facility:[facility] Start: 08-24-2024 End: 08-24-2024 ambulatory Kevin Sagastume APRN-ELECTROTYPER Facility:[facility] Start: 08-21-2024 End: 08-21-2024 ambulatory Shaikh Kerry Villagran MD Facility:[facility] Start: 07-26-2024 End: 07-26-2024 ambulatory Shaikh Tyshawn Facility:[facility] Start: 07-11-2024 End: 07-11-2024 Office outpatient visit 15 minutes Debbi Alicia SUPERVISOR PIPELINE Work Phone: [facility] Comment on above: CPAP (continuous pos itive airway pressure) dependence (Primary Dx); Gastroesophageal reflux disease without esophagitis; Hypothyroidism, unspecified type (CMS/HCC); Recurrent major depressive disorder, in full remission (CMS/HCC); Mixed hyperlipidemia (CMS/HCC); NARA (obstructive sleep apnea); Left hip pain; Screening for colon cancer Start: 07-11-2024 End: 07-11-2024 Bamboo flowsheet Debbi Alicia SUPERVISOR PIPELINE Work Phone: [facility] Start: 07-11-2024 End: 07-11-2024 Bamboo flowsheet Debbi Alicia SUPERVISOR PIPELINE Work Phone: [facility] Start: 07-11-2024 End: 07-11-2024 ambulatory DEBBI ALICIA Not Available Start: 06-26-2024 ambulatory [address] [facility] Start: 06-19-2024 End: 06-19-2024 ambulatory Shaikh Kerry Villagran MD Facility: [facility] Start: 05-17-2024 End: 05-17-2024 ambulatory CECILE COLLINS Not Available Start: 05-17-2024 End: 05-17-2024 Office outpatient new 45 minutes Cecile Collins DO Work Phone: [facility] Comment on above: NARA (obstructive sle ep apnea); Hypersomnia; Snoring; Inadequate sleep hygiene Start: 05-08-2024 End: 05-08-2024 ambulatory [facility] Work Phone: Start: 05-08-2024 End: 05-08-2024 Patient encounter procedure [facility] Work Phone: Start: 05-02-2024 End: 05-02-2024 Refill Debbi Aliica NP Work Phone: [facility] Comment on above: Hyperlipidemia, unsp ecified hyperlipidemia type (CMS/HCC) Start: 04-12-2024 End: 04-12-2024 ambulatory [facility] Start: 04-11-2024 End: 04-11-2024 ambulatory FREED FAAARTI Not Available Start: 03-22-2024 End: 03-22-2024 ambulatory Freed Fawwad Facility:[facility] Start: 03-02-2024 End: 03-02-2024 ambulatory [facility] Start: 03-01-2024 End: 03-01-2024 ambulatory Freed Fawwad Facility:[facility] Start: 02-16-2024 End: 02-16-2024 ambulatory Freed Fawwad Facility:[facility] Start: 02-02-2024 End: 02-02-2024 ambulatory Freed Fawwad Facility:[facility] Start: 01-31-2024 End: 01-31-2024 ambulatory [facility] Work Phone: Start: 01-31-2024 End: 01-31-2024 Patient encounter procedure [facility] Work Phone: Start: 01-26-2024 End: 01-26-2024 ambulatory Freed Padillaaarti Facility:[facility] Start: 01-21-2024 ambulatory Apolinar Russyuko Facility :[facility] Start: 01-21-2024 Non-patient / Non-visit Dr. Phil Villagran Work Phone: [facility] Start: 01-21-2024 End: 01-21-2024 Admission to same day surgery center Dr. Shaikh Villagran Work Phone: [facility] Start: 01-21-2024 End: 01-21-[address] Shaikh Villagran Work Phone: [facility] Work Phone: Start: 01-06-2024 End: 01-06-2024 ambulatory SHAIKH TYSHAWN Not Available Start: 01-05-2024 End: 01-05-[address] Shaikh Villagran Work Phone: [facility] Work Phone: Start: 01-05-2024 End: 01-05-[address] Shaikh Villagran Work Phone: [facility] Work Phone: Start: 12-22-2023 End: 12-22-[address] Apolinar Henry Work Phone: [facility] Work Phone: Start: 12-22-2023 End: 12-22-2023 ambulatory [facility] Work Phone: Start: 12-14-2023 End: 12-14-[address] Apolinar Henry Work Phone: [facility] Work Phone: Start: 12-14-2023 End: 12-14-2023 ambulatory [facility] Work Phone: Start: 12-09-2023 End: 12-09-2023 ambulatory [facility] Work Phone: Start: 12-09-2023 End: 12-09-2023 [facility] Work [facility]: Start: 11-29-2023 End: 11-29-2023 ambulatory SHAIKH TYSHAWN Not Available Start: 11-29-2023 Preoperative state Debbi mark NP Work Phone: [facility] Start: 11-18-2023 End: 11-18-2023 ambulatory [facility] Start: 11-18-2023 End: 11-18-2023 [facility] Start: 11-15-2023 End: 11-15-2023 ambulatory Shaikh Kerry Villagran MD Facility:[facility] Start: 11-01-2023 End: 11-01-2023 ambulatory MD Shaikh Villagran Work Phone: [facility] Work Phone: Start: 11-01-2023 End: 11-01-2023 Patient encounter procedure MD Shaikh Villagran Work Phone: [facility] Work Phone: Start: 10-11-2023 End: 10-11-2023 ambulatory Shaikh Kerry Villagran MD Facility:[facility] Start: 09-15-2023 End: 09-15-2023 ambulatory Shaikh Kerry Villagran MD Facility:[facility] Start: 08-30-2023 Registered Recurring MD Shaikh Villagran Work Phone: [facility] Work Phone: Start: 08-30-2023 End: 08-30-2023 ambulatory Shaikh Tyshawn Facility:[facility] Start: 08-30-2023 End: 08-30-2023 Patient encounter procedure MD Shaikh Villagran Work Phone: [facility] Work Phone: Start: 07-21-2023 ([facility] RD FU) [facility] 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 Apolinar Henry Work Phone: [facility] Work Phone: Start: 06-30-2023 End: 06-30-[address] 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 Apolinar Henry Work Phone: [facility] Work Phone: Start: 05-05-2023 End: 05-05-[address] Apolinar Henry Work Phone: [facility] Work Phone: Start: 04-12-2023 End: 04-12-2023 ambulatory Susanneher Retanaler Other [employer] Other Start: 04-12-2023 Telephone encounter [facility] Start: 03-15-2023 [facility] Weight Management f/u [facility] Start: 03-15-2023 End: 03-15-2023 ambulatory Susanne Missler Other [employer] Other Start: 01-01-[address] ADAM SCHWARTZ [facility] y:H1 Start: 12-16-2022 End: 12-17-[address] ADAM SCHWARTZ Facility:[facility] Start: 11-18-2022 ambulatory FREED KERRY [facility] Start: 11-18-2022 End: 11-18-2022 Office outpatient visit 25 minutes Apolinar Henry MD Work Phone: [facility] Comment on above: 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); S/P breast reconstruction Start: 10-21-2022 [facility] Start: 10-21-2022 End: 10-21-2022 Office outpatient visit 25 minutes Apolinar Henry MD Work Phone: [facility] Comment on above: 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); S/P breast reconstruction Start: 10-07-2022 ambulatory SHAIKH KERRY [facility] Start: 10-07-2022 End: 10-07-2022 Postop follow up visit related to original px Apolinar Henry MD Work Phone: [facility] Comment on above: 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); S/P breast reconstruction Start: 09-23-2022 ambulatory SHAIKH KERRY [facility] Start: 09-23-2022 End: 09-23-2022 Postop follow up visit related to original px Apolinar Henry MD Work Phone: [facility] Comment on above: 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); S/P breast reconstruction Start: 09-16-2022 End: 09-17-2022 ambulatory SHAIKH Tc VILLAGRAN Facility:[facility] Start: 09-16-2022 End: 09-17-[address] TY BOUDREAUX Facility:[facility] Start: 09-15-2022 ambulatory FREED HAMIZUL [facility] Start: 09-15-2022 End: 09-15-2022 Subsequent hospital visit by physician Apolinar Henry MD Work Phone: [facility] Comment on above: Arrived Start: 08-26-2022 ambulatory SHAIKH KERRY [facility] Start: 08-12-2022 ambulatory SHAIKH KERRY PRABHAKARFLNuno [facility] Start: 08-12-2022 End: 08-12-2022 Postop follow up visit related to original debi Henry MD Work Phone: [facility] Comment on above: S/P breast reconstru ction (Primary Dx); Personal history of malignant neoplasm of breast; Acquired absence of right breast and nipple Start: 08-05-2022 [facility] SHAIKH KERRY [facility] Start: 08-05-2022 End: 08-05-2022 Postop follow up visit related to original debi Henry MD Work Phone: [facility] Comment on above: S/P breast reconstru ction (Primary Dx) Start: 07-22-2022 [facility] Start: 07-22-2022 End: 07-22-2022 Postop follow up visit related to original debi Henry MD Work Phone: [facility] Comment on above: 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); S/P breast reconstruction Start: 07-15-2022 [facility] SHAIKH KERRY PRABHAKARFLNuno [facility] Start: 07-15-2022 End: 07-15-2022 Postop follow up visit related to original debi Henry MD Work Phone: [facility] Comment on above: 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); Personal history of malignant neoplasm of breast; S/P breast reconstruction Start: 07-09-2022 End: 07-09-2022 ambulatory SHAIKH MULUMARY VILLAGRAN [facility] Start: 07-09-2022 End: 07-09-2022 Subsequent hospital visit by physician Apolinar Henry MD Work Phone: [facility] Comment on above: Personal history of malignant neoplasm of breast Start: 06-30-2022 [facility] Start: 06-30-2022 End: 06-30-2022 Office outpatient visit 40 minutes Apolinar Henry MD Work Phone: [facility] Comment on above: S/P breast reconstru ction (Primary Dx); Acquired absence of right breast and nipple; Personal history of malignant neoplasm of breast Start: 06-25-2022 Encounter for other preprocedural examination SHAIKH Tc TYSHAWN [facility] Start: 06-23-2022 ambulatory FREED SARAHIMANUELA [facility] Start: 06-22-2022 End: 06-23-2022 ambulatory SHAIKH Tc KRISHNANuno Facility:[facility] Start: 06-22-2022 End: 06-23-2022 Encounter for other preprocedural examination SHAIKH Tc PADILLAAmandaJACIEL Facility: Start: 06-16-2022 ambulatory [facility] Start: 06-16-2022 Encounter for other preprocedural examination [facility] Start: 06-16-2022 ambulatory [facility]KH [facility]ARY [facility] Start: 06-16-2022 End: 06-16-2022 Office outpatient visit 25 minutes Apolinar Henry MD Work Phone: [facility] Comment on above: Personal history of malignant neoplasm of breast (Primary Dx); Acquired absence of right breast and nipple Start: 05-21-2022 End: 06-20-2022 ambulatory SHAIKH MULUMARY VILLAGRAN [facility] Start: 05-20-2022 ambulatory [facility] Start: 05-20-2022 End: 05-20-2022 Office outpatient new 60 minutes Apolinar Henry MD Work Phone: [facility] Comment on above: Personal history of malignant neoplasm of breast (Primary Dx); Acquired absence of right breast and nipple Start: 03-24-2022 End: 03-25-2022 ambulatory SHAIKH Tc KRISHNANuno Facility: Start: 03-02-2022 End: 03-02-2022 ambulatory SHAIKH Tc VILLAGRAN Facility: Start: 01-13-2022 End: 01-14-2022 ambulatory SHAIKH Tc KRISHNANuno Facility: Start: 06-07-2020 End: 06-08-2020 Patient encounter procedure ND Facility:[facility] Start: 08-05-2018 End: 08-05-2018 Emergency department patient visit [facility] [place] Facility:[facility] Start: 07-27-2017 End: 10-14-2017 Ambulatory NANCY MARTINEZ Facility:[facility] Procedures Date Procedure Procedure Detail Performing Clinician Start: 03-02-2024 Follow-up visit Follow-up RAMAKRISHNA LÓPEZ Start: 01-21-2024 Reduction mammoplasty Nuno Villagran Work Phone: Start: 09-23-2022 Follow-up visit Follow-up APOLINAR HENRY Start: 09-15-2022 Radiologic exam chest 2 views Apolinar Henry MD Work Phone: Start: 06-07-2020 ANESTH KNEE JOINT SURGERY LASHA BAKER Start: 06-07-2020 KNEE ARTHROSCOPY/SURGERY ADAM SKINNER Start: 08-05-2018 Electrocardiogram [place] Plan of Treatment Date Care Activity Detail Author Start: 08-20-2027 Screening for malign ant neoplasm of colon [facility] Start: 01-09-2025 End: 01-09-2025 Patient encounter procedure 01/09/2025 2:30 PM EDT Office Visit [facility] [address] [place] [address] Debbi Alicia NP [address] [place] [address] [facility] Start: 07-11-2024 End: 07-11-2024 Patient encounter procedure [facility] Comment on above: Arrived Start: 07-11-2024 End: 07-11-2025 Lipid 1996 panel - Serum or Plasma Lipid panel Lab Routine Mixed hyperlipidemia (CMS/HCC) Expected: 07/11/2024 (Approximate), Expires: 07/11/2025 [facility] Work Phone: Comment on above: Expected: 07/11/2024 (Approximate), Expires: 07/11/2025 Start: 07-11-2024 End: 07-11-2025 Noninvasive colorectal cancer DNA and occult blood screening [Presence] in Stool Cologuard colon cancer screening Lab Routine Screening for colon cancer Expected: 07/11/2024 (Approximate), Expires: 07/11/2025 [facility] Comment on above: Expected: 07/11/2024 (Approximate), Expires: 07/11/2025 Start: 05-14-2024 Influenza vaccination Influenza Vacc ine (#1) [facility] Start: 01-21-2024 Patient discharge [facility] [place] Start: 04-06-2023 MAMMOGRAM LEFT MAMMOGRAM LEFT [facility] Start: 04-06-2023 Screening for malign ant neoplasm of breast MAMMOGRAM LEFT [facility] Start: 01-11-2023 Tetanus vaccination [facility] Start: 11-18-2022 End: 11-18-2022 Patient encounter procedure 11/18/2022 Office Visit Plastic Surgery Apolinar Henry MD [address] [place] [address] [facility] Start: 10-21-2022 End: 10-21-2022 Patient encounter procedure 10/21/2022 Office Visit Plastic Surgery Apolinar Henry MD [address] [place] [address] [facility] Start: 10-07-2022 End: 10-07-2022 Patient encounter procedure 10/07/2022 Office Visit Plastic Surgery Apolinar Henry MD [address] [facility] [place] [address] [facility] Start: 09-23-2022 End: 09-23-2022 Patient encounter procedure 09/23/2022 Office Visit Plastic Surgery Apolinar Henry MD [address] [place] [address], [place] [address] [facility] Start: 08-26-2022 End: 08-26-2022 Patient encounter procedure 08/26/2022 Office Visit Plastic Surgery Apolinar Henry MD [address] [place] [address], [place] [address] [facility] Start: 08-12-2022 End: 08-12-2022 Patient encounter procedure 08/12/2022 Office Visit Plastic Surgery Apolinar Henry MD [address] [place] [address], [place] [address] [facility] Start: 08-05-2022 End: 08-05-2022 Patient encounter procedure 08/05/2022 Office Visit Plastic Surgery Apolinar Henry MD [address] [place] [address], [place] [address] [facility] Start: 07-22-2022 End: 07-22-2022 Patient encounter procedure 07/22/2022 Office Visit Plastic Surgery Apolinar Henry MD [address] [place] [address], [place] [address] [facility] Start: 07-15-2022 End: 07-15-2022 Patient encounter procedure 07/15/2022 Office Visit Plastic Surgery Apolinar Henry MD [address] [place] [address], [place] [address] [facility] Plastic Surgery Start: 07-09-2022 Subsequent hospital visit by physician 07/09/2022 Hospital Encounter [facility] Apolinar Henry MD [address] [place] [address] Personal history of malignant neoplasm of breast ANA GAL Periop Comment on above: Personal history of malignant neoplasm of breast Start: 07-09-2022 End: 07-09-2022 Admission to same day surgery center 07/09/2022 [facility] [address] [place] [address] RT BREAST RECONSTRUCTION W/ PLACEMENT TISSUE DIRECTOR ENTERPRISE SYSTEMS & ADM ANA GAL Periop Comment on above: RT BREAST RECONSTRUC TION W/ PLACEMENT TISSUE DIRECTOR ENTERPRISE SYSTEMS & ADM Start: 07-09-2022 End: 07-09-2022 Anesthesia consultation 07/09/2022 [facility], DO [address] [place] [address] ANA GAL Periop Start: 07-09-2022 End: 07-09-2022 Brst rcnstj immt/dlyd w/tiss rigger helper sbsq xpnsj RECONSTRUCTION BREAST TISSUE DIRECTOR ENTERPRISE SYSTEMS INCLUDING SUBSEQUENT EXPANDERS Personal history of malignant [...] Visit Plastic Surgery Apolinar Henry MD [address] [place] [address] [facility] Plastic Surgery Start: 05-14-2022 Influenza vaccination INFLUENZA VACC INE (#1) [facility] Start: 12-03-2021 COVID-19 VACCINE (4 - Booster for Pfizer series) COVID-19 VACCINE (4 - Booster for Pfizer series) [facility] Start: 09-30-2021 COVID-19 VACCINE (4 - Booster for Pfizer series) COVID-19 VACCINE (4 - Booster for Pfizer series) [facility] Start: 2015 Pneumococcal vaccination PNEUM OCOCCAL VACCINE SERIES (1 - PCV) [facility] Start: 2000 Zoster vaccine hzv l vera for subcutaneous use ZOSTER (SHINGLES) VACCINE (1 of 2) [facility] Start: 1995 Colonoscopy COLORECTAL CAN CER SCREENING DISCUSSION [facility] Start: 1995 Screening for malign ant neoplasm of colon COLORECTAL CANCER SCREENING DISCUSSION [facility] Start: 1990 Fasting lipid profile LIPID SCREENIN G [facility] Start: 1990 Lipid panel LIPID SCREENING [facility] Start: 1980 MAMMOGRAM LEFT MAMMOGRAM LEFT [facility] Start: 1971 Screening for malign ant neoplasm of cervix CERVICAL CANCER SCREENING DISCUSSION [facility] Start: 1969 Third diphtheria, tetanus and acellular pertussis (DTaP) vaccination TDAP (ADULT) [facility] Start: 1968 Tetanus vaccination TETANUS [facility] Start: 1950 Hepatitis C antibody , confirmatory test HEPATITIS C VIRUS SCREENING [facility] Start: 1950 Hepatitis C screening HEPATITI S C VIRUS SCREENING [facility] Start: 1950 Medicare Annual Well ness (AWV) Medicare Annual Wellness (AWV) [facility] Start: 1950 Screening for malign ant neoplasm of colon [facility] Start: 1950 Screening for osteoporosis DEXA SCAN DISCUSSION [facility] Start: 1950 Thyroid stimulating hormone measurement TSH [facility] Blood chemistry [facility] Complete blood count [facility] Patient referral [facility] Work Phone: Immunizations Immunization Date Immunization Notes Care Provider Padilla eduardo 07-11-2024 influenza virus vaccine, unspecified formulation Debbi Alicia NP Work Phone: [facility] 07-07-2023 Influenza, Seasonal, Quadrivalent, Adjuvanted Debbi Alicia SUPERVISOR PIPELINE Work Phone: [facility] 07-07-2023 zoster vaccine recombinant Debbi Alicia SUPERVISOR PIPELINE Work Phone: [facility] 07-07-2023 influenza virus vaccine, unspecified formulation Debbi Alicia SUPERVISOR PIPELINE Work Phone: [facility] 06-12-2022 Influenza, High-dose Seasonal, Quadrivalent, Preservative Free Debbi Alicia SUPERVISOR PIPELINE Work Phone: [facility] 08-05-2021 Influenza, Seasonal, Quadrivalent, Adjuvanted Debbi Alicia SUPERVISOR PIPELINE Work Phone: [facility] 08-05-2021 influenza virus vaccine, unspecified formulation Apolinar Henry MD Work Phone: [facility] 06-24-2020 influenza, high dose seasonal, preservative-free Debbi Alicia SUPERVISOR PIPELINE Work Phone: [facility] 07-08-2019 pneumococcal polysaccharide vaccine, 23 valent Debbi Alicia SUPERVISOR PIPELINE Work Phone: [facility] 07-08-2019 Seasonal trivalent influenza vaccine, adjuvanted, preservative free Debbi Alicia SUPERVISOR PIPELINE Work Phone: [facility] 06-03-2018 pneumococcal conjuga te vaccine, 13 valent Debbi Alicia SUPERVISOR PIPELINE Work Phone: [facility] 06-03-2018 Seasonal trivalent influenza vaccine, adjuvanted, preservative free Debbi Alicia SUPERVISOR PIPELINE Work Phone: [facility] 06-25-2017 Seasonal trivalent influenza vaccine, adjuvanted, preservative free Debbi Alicia SUPERVISOR PIPELINE Work Phone: [facility] 06-15-2016 influenza, high dose seasonal, preservative-free Debbi Alicia SUPERVISOR PIPELINE Work Phone: [facility] 05-21-2015 influenza, injectabl e, quadrivalent, preservative free Debbi Dantrick SUPERVISOR PIPELINE Work Phone: [facility] 07-28-2013 hepatitis A and hepatitis B vaccine Debbijazmyn AlmazanAlicia SUPERVISOR PIPELINE Work Phone: [facility] 02-16-2013 hepatitis A and hepatitis B vaccine Debbijazmyn Dantrick SUPERVISOR PIPELINE Work Phone: [facility] 02-16-2013 typhoid capsular polysaccharide vaccine Debbijazmyn Dantrick SUPERVISOR PIPELINE Work Phone: [facility] 01-11-2013 hepatitis A and hepatitis B vaccine Debbijazmyn AlmazanAlicia SUPERVISOR PIPELINE Work Phone: [facility] 01-11-2013 tetanus toxoid, redu breezy diphtheria toxoid, and acellular pertussis vaccine, adsorbed Debbi Alicia SUPERVISOR PIPELINE Work Phone: [facility] Payers Date Payer Category Payer [employer] ( and others) [id number] 12-10-2022 [employer] ( and others) [id number] 12-10-2022 Self-pay 03-17-2022 Unknown 09-13-2021 [employer] ( and others) [id number] 09-24-2020 [employer] ( and others) [id number] .7.3.794768.315 09-24-2020 () 1.2.840.409145.1.13.693.2 .7.9.685720.212365.315 09-13-2020 Medicare [id number]. 1.13.172.2 .7.3.394503.315 09-13-2020 Medicare (Managed Care) [employer] 1.2.840.512172.1.13.693.2 .7.9.373116.005410.315 03-13-2019 Unknown [id number] 07-27-2017 Medicare [id number] 06-04-2016 [employer] ( and others) [id number] 09-13-1959 [employer] ( and others) [id number] 09-13-1959 Medicare [id number] 1950 Unknown [id number] 2.16.840.1.072953.3.579.2 .647 1950 Unknown [id number] 2.16.840.1.627763.3.579.2 .983 1950 Unknown [id number] 2.16840.1.542911.3.579.2 .983 1950 Unknown [id number] 2.16.840.1.805212.3.579.2 .983 1950 Unknown [id number] 2.16.840.1.381514.3.579.2 .983 1950 Unknown [id number] 2.16.840.1.019599.3.579.2 .983 1950 Unknown [id number] 2.16.840.1.170299.3.579.2 .983 1950 Unknown [id number] 2.16.840.1.182668.3.579.2 .983 1950 Unknown [id number] 2.16.840.1.058354.3.579.2 .983 1950 Unknown [id number] 2.16.840.1.829959.3.579.2 .983 1950 Unknown [id number] 2.16.840.1.224009.3.579.2 .983 1950 Unknown [id number] 2.16.840.1.273531.3.579.2 .983 1950 Unknown [id number] 2.16.840.1.569492.3.579.2 .983 1950 Unknown [id number] 2.16.840.1.923690.3.579.2 .983 1950 Unknown [id number] 2.16.840.1.407818.3.579.2 .983 1950 Unknown [id number] 2.16.840.1.199336.3.579.2 .983 1950 Unknown [id number] 2.16.840.1.612096.3.579.2 .983 1950 Unknown [id number] 2.16.840.1.275635.3.579.2 .983 1950 Unknown [id number] 2.16.840.1.236818.3.579.2 .983 1950 Unknown [id number] 2.16.840.1.529903.3.579.2 .593 1950 Unknown [id number] 2.16.840.1.966513.3.579.2 .593 1950 Unknown [id number] 2.16.840.1.333082.3.579.2 .593 1950 Unknown [id number] 2.16.840.1.219459.3.579.2 .593 1950 Unknown [id number] 2.16.840.1.749150.3.579.2 .593 1950 Unknown [id number] 2.16.840.1.563902.3.579.2 .593 1950 Unknown [id number] 2.16.840.1.692621.3.579.2 .593 1950 Unknown [id number] 2.16.840.1.187601.3.579.2 .593 1950 Unknown [id number] 2.16.840.1.831065.3.579.2 .593 1950 Unknown [id number] 2.16.840.1.734488.3.579.2 .1286 1950 Unknown [id number] 2.16.840.1.427001.3.579.2 .1259 1950 Unknown [id number] 2.16.840.1.568671.3.579.2 .1259 1950 Unknown [id number] 2.16.840.1.246650.3.579.2 .1259 1950 Unknown [id number] 2.16.840.1.351156.3.579.2 .1259 1950 Unknown [id number] 2.16.840.1.529726.3.579.2 .1259 1950 Unknown [id number] 2.16.840.1.875645.3.579.2 .196 1950 Unknown [id number] 2.16.840.1.405922.3.579.2 .196 1950 Unknown [id number] 2.16.840.1.674823.3.579.2 .196 1950 Unknown [id number] 2.16.840.1.266366.3.579.2 .196 1950 Unknown [id number] 2.840.1.146041.3.579.2 .196 1950 Unknown [id number] 2.840.1.361585.3.579.2 .196 1950 Unknown [id number] 2.840.1.425848.3.579.2 .196 1950 Unknown [id number] 2.840.1.414091.3.579.2 .196 1950 Unknown [id number] 2.840.1.776640.3.579.2 .128 1950 Unknown [id number] 2.0.1.829267.3.579.2 .1285 1950 Unknown [id number] 2.0.1.189302.3.579.2 .1285 1950 Unknown [id number] 2.840.1.808660.3.579.2 .1285 1950 Unknown [id number] .0.1.877697.3.579.2 .1285 1950 Unknown [id number] 2.840.1.523173.3.579.2 .1285 1950 Unknown [id number] 840.1.495062.3.579.2 .1286 [facility] of [facility] ( and others) [id number] 2840.1.910074.19 Medicare [id number] Private Health Insurance [id number] Unknown [id number] 2.840.1.428325.3.579.2 .283 Unknown [id number] 2.840.1.923467.3.579.2 .531 Unknown [id number] 2.840.1.251163.3.579.2 .462 Unknown [id number] 2.840.1.070422.3.579.2 .462 Unknown [id number] 2.840.1.246259.3.579.2 .462 Unknown [id number] 2.840.1.118188.3.579.2 .462 Unknown [id number] 2.840.1.700100.3.579.2 .462 Unknown [id number] 2.840.1.018532.3.579.2 .462 Unknown [id number] 2.840.1.391438.3.579.2 .462 Unknown [id number] 2.840.1.472983.3.579.2 .462 Unknown [id number] 2.840.1.349076.3.579.2 .462 Unknown [id number] 2.840.1.412496.3.579.2 .462 Unknown [id number] .840.1.955104.3.579.2 .462 Unknown [id number] .840.1.881566.3.579.2 .462 Unknown [id number] 2.840.1.390326.3.579.2 .462 Unknown [id number] 2.840.1.834360.3.579.2 .462 Unknown [id number] .840.1.773093.3.579.2 .462 Unknown [id number] .840.1.746803.3.579.2 .462 Unknown [id number] .840.1.893941.3.579.2 .462 Unknown [id number] .840.1.842962.3.579.2 .462 Unknown [id number] .840.1.187003.3.579.2 .462 Social History Date Type Detail Facility Start: 05-20-2022 End: 01-06-2024 Tobacco smoking status NHIS Never smoked tobacco [facility] Start: 05-20-2022 Tobacco use and exposure Smokeless tobacco non-user [facility] Start: 05-20-2022 Alcohol intake Ex-drinker (finding) [facility] Start: 1950 Sex Assigned At Not on file [facility] Start: 06-16-2022 End: 11-18-2022 Alcohol intake Current drinker of alcohol (finding) [facility] Start: 06-16-2022 History SDOH Alcohol Comment SELDOM [facility] Start: 06-29-2022 End: 07-09-2022 Exposure to SARS-CoV-2 (event) Not sure [facility] Start: 04-11-2024 End: 05-17-2024 Sex Assigned At [employer] Other Start: 05-05-2023 End: 12-30-2023 Tobacco smoking status NHIS Unknown if ever smoked [facility] Start: 1950 Sex Assigned At Female [facility] Start: 05-17-2024 End: 07-11-2024 Alcoholic beverage intake Lifetime non-drinker (finding) [facility] Start: 04-11-2024 End: 05-17-2024 History of Social function [facility] Start: 08-18-2023 Alcohol Comment caffeine: none [facility] Start: 11-13-2024 Sex Female (finding) [facility] NEGATED: Highlighted row [facility] NEGATED: Highlighted rowStart: NINF History of tobacco use Passive smoker [facility] Medical Equipment Procedure Code Equipment Code Equipment Origin al Text Equipment Identifier Dates [employer] [facility] Breast Implant [id number] Start: 07-09-2022 Goals Date Patient Goal Desired Activity /State Functional Status Date Assessment Result Facility 01-21-2024 Functional status Activity Abili ty With Assist of 1 [facility] Work Phone: Mental Status Date Assessment Result Facility 01-21-2024 Cognitive function Voice/Name [facility] Work Phone: Clinical Notes 01-13-2022 to 10-09-2024 Telephone Encounter - Shira Ponce MA - 10/09/2024 4:02 PM ESTTelephone Encounter - Shira Ponce MA - 10/09/2024 4:02 PM JOSÉ MIGUELDebbi AlmazanpatrickMELINA - 07/11/2024 3:59 PM EDTPatient Instructions Note Date & Type Note Facility 10-09-2024 Telephone encounter Note TOM:07/11/2024 NOV:01/09/[address]25 [facility] 10-09-2024 Miscellaneous Notes TOM:07/11/2024 NOV:01/09/2025 documented in this encounter [facility] 09-22-2024 Note [facility] Medical Records Department [address] [place] [address] History Physical Exam 09/22/24 1340 MR#: [id number] Acct: [id number] Name: BERENICE NOLASCO Rep #: [id number] : 1950 74 From: Apolinar Henry MD PCP: Shaikh Villagran Status:[facility] Location: [place] [address] HPI - General General Date of Service: 09/22/24 HPI Narrative BERENICE NOLASCO, is a 74 F who presents for right nipple reconstruction. She has undergone previous mastectomy and reconstruction. Informed consent is obtained for nipple reconstruction no guarantees are made as to his long-term appearance. [facility] Medical History (Updated 07/26/24 @ [...] cholesterol Chronic SI joint pain Breast cancer Home Medications ???Medication ???Instructions ???Recorded ???Last Taken ???Type ascorbic acid 30 mg-collagen, 1 tab PO DAILY 05/05/23 Unknown History hydrolyzed 833.3 mg tablet (Collagen Skin Renewal) aspirin 81 mg tablet,delayed 81 mg PO DAILY 05/05/23 01/07/24 History release calcium 600 mg (as 1 cap PO DAILY 05/05/23 Unknown History carbonate)-vitamin D3 12.5 mcg (500 unit) capsule (Calcium with Vit D3) citalopram 20 mg tablet 30 mg PO DAILY 05/05/23 01/21/24 03:45 History esomeprazole magnesium 40 mg 40 mg PO DAILY 05/05/23 01/21/24 History capsule,delayed release famotidine 20 mg tablet 20 mg PO QHS 05/05/23 01/20/24 History fesoterodine 8 mg tablet,extended 8 mg PO DAILY 05/05/23 01/21/24 History release 24 hr levothyroxine 50 mcg tablet 50 mcg PO DAILY 05/05/23 01/21/24 History melatonin 10 mg tablet 10 mg PO HS 05/05/23 Unknown History sjdqkvsw-dee-answi acid 0.4 1 tab PO DAILY 05/05/23 Unknown History mg-lycopene 300 mcg-lutein 250 mcg tablet (Complete Multivitamin Adult 50 Plus) semaglutide 0.25 mg or 0.5 mg (2 0.25 mg subcut TH 05/05/23 Unknown History mg/3 mL) subcutaneous pen injector (Ozempic) simvastatin 20 mg tablet 20 mg PO QHS 05/05/23 Unknown History Lactobacillus acidophilus 250 500 mmu cells PO DAILY 12/30/23 Unknown History million cell capsule (Probiotic Acidophilus) flaxseed oil 1,000 mg capsule 1,000 mg PO DAILY 12/30/23 Unknown History celecoxib 50 mg capsule (Celebrex) 50 mg PO .prn 07/26/24 Unknown History Allergy/AdvReac Type Severity Reaction Status Date / Time oxycodone (From Percocet) Allergy Mild Swelling Verified 09/22/24 12:33 Penicillins Allergy Rash Verified 09/22/24 12:33 Sulfa (Sulfonamide Allergy Rash Verified 09/22/24 12:33 Antibiotics) Family History (Updated 05/05/23 @ 14:24 by Elin Beckwith) Mother Heart disease Father Heart disease Surgical History (Updated 01/26/24 @ 15:03 by [...] of knee History of bladder suspension procedure Social History (Updated 05/05/23 @ 14:23 by Elin Beckwith) Smoking Status: Never smoker alcohol intake: current substance use type: does not use additional social history: Aspirin use daily. Occasional Ibuprofen use. Vital Signs Vital Signs Vital Signs: 09/22/24 12:34 09/22/24 12:34 Temperature 97.3 F L Temperature Source Temporal Pulse Rate 71 Respiratory Rate 16 Respiratory Pattern Normal Blood Pressure 147/92 H Blood Pressure Mean 110 Blood Pressure Source Monitor Blood Pressure Position Semi-Fowlers Blood Pressure Location Left Arm Pulse Ox 96 Oxygen Delivery Method Room Air Weight Weight: 192 lb 3.2 oz Body Mass Index (BMI) 31.0 Physical Exam Narrative Acquired absence of right breast. Reconstruction intact. Const alert, oriented x3, no apparent distress, average body habitus and well nourished General Appearance: cooperative and well developed Orientation / Consciousness: oriented to person, oriented to place and oriented to time HEENT head/scalp atraumatic, external ears normal and external nose normal Head and Scalp: normal to inspection, normocephalic, atraumatic and abrasion Face and Sinus: normal facial exam and face symmetric Nose: external nose normal External Ear: external ears normal (more content not included)... [facility] 07-11-2024 History of Presen t illness Narrative Associated Problem(s): Gastroesophageal reflux disease [...] and has been seeing pain clinic at [facility], feels symptoms are currently well controlled. Continue current regimen. Images from the original note were not included. Subjective Patient ID: Berenice Nolasco is a 74 y.o. female who presents for Hip Pain. Hip Pain Specialists: Weight Management- Juan Sawyer, Pain Management - Dr. Marcus [facility] Ortho- Dr. Skinner Neurology- Dr. Collins/ NARA [...] R URINE MICROSCOPIC INDICATED YES Resulting Agency [facility] Review of Systems Constitutional: Negative for activity [...] and has been seeing pain clinic at [facility], feels symptoms are currently well controlled. Continue current regimen. Recurrent major depressive disorder, in full remission (CMS/HCC) Screening for colon cancer Relevant Orders Cologuard colon cancer screening documented in this encounter [facility] 07-11-2024 Instructions Debbi Alicia NP - 07/11/2024 2:30 PM EDT FASTING labs ordered. Nothing to eat or drink for 12 hours prior to blood draw. Water and black coffee ok. documented in this encounter [facility] 06-26-2024 Note Orthopedic Surgery Subjective Pain of [...] and draped in the usual sterile fashion. [facility] 05-17-2024 History of Presen t illness Narrative Images from the original note were not included. Chief Complaint Patient presents with Sleep Apnea Subjective Berenice Nolasco, 74 y.o., female is being seen in Sleep Consultation at the request of Dr. Villagran. HPI Sleep ND She has been diagnosed with NARA about 10-15 years ago. She was stopping breathing and tired during the day. She did see an improvement with the machine. She needed a new machine as she was on the recall. had made repairs on his own to make the machine last longer. The patient states that she is wearing her machine nightly. She goes to bed at 1am and wakes up at 12 noon. She states she does not function well on lesser sleep. She is getting up to go to the bathroom multiple times a night and back and hip pain are waking her up. She thinks she is getting about 8 hours of sleep total a night. She did have an MRI of her back and is treating with pain management for this. She needs supplies for her machine. Patient Symptoms Snores: Yes Dozes off if inactive: no Dozes off with activity: no Wakes a lot through the night: yes Witnessed episodes of apnea: yes Takes naps: once in while couple hours Sleepwalk: as a child Sleeptalk: No Vivid Dreams: no Acts out dreams: no Sleep related hallucinations: no Sleep paralysis: no Cataplexy: no Restless Leg: no TV on while sleeping:no Smoke before bed: no Caffeine within 3 hours before bed: no CV exercise: breast surgery with s/p cancer with saline implant and lift. - She was exercising before. Past Medical History: Diagnosis Date Anemia Breast cancer ([facility]/HCC) CAD (coronary artery disease) ([facility]) Depression ([facility]/HCC) GERD (gastroesophageal reflux disease) History of DC (myocardial infarction) ([facility]/HCC) Hypercholesterolemia ([facility]/HCC) Obesity Pulsatile tinnitus, right ear Urinary frequency and incontinence Past Surgical History: Procedure Laterality Date CARDIAC CATHETERIZATION 2013 CATARACT EXTRACTION 2013 cataracts DILATION AND CURETTAGE OF UTERUS GUM SURGERY 2013 gum graft HYSTERECTOMY KNEE SURGERY Bilateral knee arthroscopy MASTECTOMY Right 1992 and lymph node disecction OTHER SURGICAL HISTORY 2012 cervix ablation SEPTOPLASTY 1995 SHOULDER ARTHROSCOPY Right 2012 TUBAL LIGATION 1994 Family History Problem Relation Name Age of Onset Heart disease Mother Stroke Mother Heart disease Father Hypertension Father Cancer Maternal Grandfather Social History Tobacco Use Smoking status: Never Passive exposure: Never Smokeless tobacco: Not on file Substance Use Topics Alcohol use: Never Comment: caffeine: none Allergies: Percocet [oxycodone-acetaminophen], Sulfamethoxazole-trimethoprim, and Penicillin g procaine General: No fever or chills HEENT: No nasal congestion or runny nose Pulmonary: No shortness of breath or cough Cardiovascular: No chest pain or palpitations GI: No nausea or vomiting : No dysuria or hematuria Musculoskeletal: No new aches or pains or muscle weakness Infectious: no recurrent fevers or infections Dermatologic: No rashes or skin lesions Neurologic: No new headaches or dizziness Vitals: 05/17/24 1510 BP: (!) 146/92 Pulse: 72 SpO2: 94% Body mass index is 31.8 kg/m . weight: 197 lb Neurologic exam: General: Normal body habitus, cooperative, pleasant Mental status: Awake, alert to person, place and time. Recent and remote memory are intact. Attention and concentration are normal. Fund of knowledge is appropriate for level of education. HEENT: NC/AT Cranial nerves: CN II: Visual torres full to confrontation. No loss of vision CN III, IV, : pupils equal round and reactive to light. Extraocular movements intact. No ptosis present. CN V: Facial sensation is normal. CN VII: Full and symmetric facial movement. CN VIII: Hearing is normal CN IX and X: Palate elevates symmetrically. CN XI: Shoulder shrug is normal bilaterally. CN XII: Tongue is midline without atrophy or fasciculation. Speech: Clear and fluent no aphasia or dysarthria Pronator drift: Negative bilateral upper extremity Coordination: Intact, no signs of dysmetria Good finger to nose and rapid alternating movements Sensory: Sensation is intact to light, temperature and vibratory touch throughout four extremities. Motor: LUE 5/5 RUE 5/5 LLE 5/5 RLE 5/5 Tone: Physiologic, no tremor, bradykinesia or rigidity DTR: Bilateral Biceps 2/4 Bilateral BR 2/4 Bilateral Patellar 1/4 No spasticity Gait: Normal to casual gait Romberg's Negative Review and summary of old records: Assessment/Plan Diagnoses and all orders for this visit: NARA (obstructive sleep apnea) Hypersomnia Snoring Inadequate sleep hygiene 74-year-old female with a moderate obstructive sleep apnea with an AHI of 29 and the oxygen desaturation down to 84 percent. She has underlying daytime hypersomnolence and snoring that is improved with the use of the CPAP machine. She was originally diagnosed with sleep apnea back in 2008 and she had an AHI of 12 and was started on CPAP at 7 cm of water. She had done well but her machine gave out and was time to get a new machine. She now has a new machine she is doing well with that she is getting great benefit. She is using 100 percent of the time greater than 4 hours with an average nightly usage of 9 hours and 27 minutes and residual AHI of 4.1. She still complains of being somewhat tired during the day however she is spending too much time in bed. She can spend 11 hours in bed and should really truncate that down to 8-9 hours. She needs some sleep restriction. Patient also needs to increase her exercise. She has a lot of reasons why she can not exercise but she really can she can start with chair exercises and I am hopeful that that will be more helpful with keeping her awake better quality of sleep and helping with her underlying back pain. Plan Previous studies were reviewed Her HST was reviewed Her compliance data was reviewed and she is compliant as above Patient has some inadequate sleep hygiene and would benefit from restricting her sleep time to 8-9 hours at the most and not 10 to 11+ hours in bed Increase cardiovascular exercise The patient was counseled on proper sleep hygiene and adequate hours of sleep. The patient was counseled on the risks of stroke, DC, and sudden with NARA, along with the need for compliance with the CPAP/BiPAP treatment. Since she is compliant we will go ahead and see her again in a year unless she is having any new issues and she should call The diagnosis was all discussed with the patient. All questions were answered and they agreed with the treatment plan. Patient will call if there are any new issues or questions. Pt has been fully educated on their diagnosis, treatment options, follow up plan, and return instructions Return to clinic: 1 year documented in this encounter [facility] 01-21-2024 Discharge summary Note Date/Time January 21, 2024 10:39am [facility] Medical Records Department [address] [place] [address] Instructions for Home/Discharge Instructions 01/21/24 1037 MR#: [id number] Acct: [id number] Name: BERENICE NOLASCO Rep #:[id number] : 1950 73 From: Apolinar Henry MD PCP: Shaikh Villagran Status:[facility] Discharge Instructions Dressing / Incision Additional Dressing/Incision [...] Henry MD CC: Shaikh Tyshawn ~ Signed [facility] Work Phone: 1(935) 542-766305-10-2024 Procedure [facility] 01-21-2024 History and physical note Author Apolinar Henry [facility] January 21, 2024 7:25am Note Date/Time January 21, 2024 7:25a m [facility] Medical Records Department [address] [place] [address] History & Physical Exam 01/21/24 0722 MR#: [id number] Acct: [id number] Name: BERENICE NOLASCO Rep #:[id number] : 1950 73 From: Apolinar Henry MD PCP: Shaikh Villagran Status:[facility] Location: [place] [address] History and Physical Date of Admission: 01/21/24 The patient is examined and there are no changes from the H&P dated 01/06/24. She presents for left breast reduction for symmetry following reconstruction on her right breast. Also right breast rigger helper port removal. Informed consent was obtained. Assessment & Plan Assessment/Plan (1) S/P breast reconstruction, right: (2) History of cancer of right breast: (3) Breast hypertrophy: (4) Breast asymmetry between [place] breast and reconstructed breast: PLAN: Plan For left breast reduction and right rigger helper port removal. 01/21/24 0725 <Electronically signed by Apolinar Henry MD> Cosigner Signature (if applicable): CC: Dr. Apolinar Henry MD; Shaikh Tyshawn~ Signed [facility] Work Phone: 1(119) 591-272905-10-2024 [facility] Medical Records Department [address] [place] [address] History Physical Exam 01/21/24 0722 MR#: [id number] Acct: [id number] Name: BERENICE NOLASCO Rep #: [id number] : 1950 73 From: Apolinar Henry MD PCP: Shaikh Villagran Status:[facility] Location: [place] [address] History and Physical Date of Admission: 01/21/24 The patient is examined and there are no changes from the H P dated 01/06/24. She presents for left breast reduction for symmetry following reconstruction on her right breast. Also right breast rigger helper port removal. Informed consent was obtained. Assessment Plan Assessment/Plan (1) S/P breast reconstruction, right: (2) History of cancer of right breast: (3) Breast hypertrophy: (4) Breast asymmetry between [place] breast and reconstructed breast: PLAN: Plan For left breast reduction and right rigger helper port removal. 01/21/24724 Cosigner Signature (if applicable): CC: Dr. Apolinar Henry MD; Shaikh Tyshawn [facility] Progress note Author Apolinar Henry [facility] December 14, 2023 4:43pm Note Date/Time December 14, 2023 3:58 pm [facility] [address] [place] [address], [address] [place] [address] OFFICE VISIT Date of Service: 12/14/23 MR#: [id number] Acct: [id number] Name: BERENICE NOLASCO Rep #: [id number] : 1950 Provider: Dr. Dolly Henry MD Age/Sex: 73/F Location: [facility] Status: Signed Intake Vital Signs [...] mg PO HS 05/05/23 [History Confirmed 12/14/23] jjlpqeon-vdv-uhkkl acid 0.4 mg-lycopene 300 mcg-lutein 250 mcg [...] future surgery Left breast reduction, removal right rigger helper pot. [facility] Medical History (Updated 05/05/23 @ [...] Exam Details The patient's right breast tissue rigger helper is in good position and the port [...] remove the port on the right tissue rigger helper whichhas the capability of functioning as a [...] Z85.3 Breast hypertrophy N62 Breast asymmetry between [place] breast and reconstructed breast N65.1 Assessment and Plan (No Qualifiers) Assessment and Plan (1) History of cancer of right breast: Status: Acute (2) Breast hypertrophy: Status: Acute (3) Breast asymmetry between [place] breast and reconstructed breast: Status: Acute Plan Details Additional Comments: We will obtain preauthorization for the proposed procedure of left breast reduction for symmetry and removal of the rigger helper port right breast 12/14/23 4423 <Electronically signed by Apolinar gar MD> Date _ Apolinar Henry MD Cosigner Signature: Date (if applicable) CC: ~ [facility] Work Phone: 1(216) 641-801401-29-2024 NoteChief Complaint Chief Complaint Patient presents for [...] breast cancer History of colonoscopy with polypectomy DC (myocardial infarction) (2013) Morbid obesity with body [...] Health Maintenance Colonoscopy 04/20/2019 (more content not included)...[facility]:Order Comment: no [id number] Evaluation note* Encounter Date Diagnosis Assessment Notes [...] met, continue -increase protein foods- Not reviewed [employer] Other 10-23-2023 Evaluation note* Encounter Date [...] does anticipate 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 once she 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 her neck [...] Encounter for weight management (ICD-10 - Z76.89) [employer] Other 09-14-2023 Evaluation note* Encounter Date Diagnosis [...] to 30 g/day -NEW: increase protein foods [employer] Other 07-03-2023 Evaluation note* Encounter Date Diagnosis [...] Encounter for weight management (ICD-10 - Z76.89) [employer] Other 03-08-2023 History of Present illness [...] the decision is whether to leave the rigger helper and removal Of the port were to [...] IN 2017 Malignant neoplasm of female breast DC (myocardial infarction) with knee scope PVD (peripheral vascular disease) Past Surgical History: Procedure Laterality Date RECONSTRUCTION BREAST TISSUE DIRECTOR ENTERPRISE SYSTEMS INCLUDING SUBSEQUENT EXPANDERS Right 07/09/2022 Laterality: Right; Surgeon: Apolinar Henry MD; Location: [facility] IMPLANTATION BIOLOGIC IMPLANT FOR SOFT TISSUE REINFORCEMENT ADD-ON PX Right 07/09/2022 RT BREAST RECONSTRUCTION W/ PLACEMENT TISSUE DIRECTOR ENTERPRISE SYSTEMS & ADM/ 150 CC FILL MASTECTOMY Right 1993 BLADDER REPAIR HYSTERECTOMY KNEE SURGERY Bilateral 2017 AND HAD DC DURING SURGERY ORAL SURGERY REMOVAL CATARACT (PEM) [...] kg/m Smoking Status Never The patient's right rigger helper is in good position. The overlying tissue [...] Follow-up later this year documented [facility] this [facility]02-08-2023 History of Present illness Narrative* Raphael [...] IN 2017 Malignant neoplasm of female breast DC (myocardial infarction) with knee scope PVD (peripheral vascular disease) Past Surgical History: Procedure Laterality Date RECONSTRUCTION BREAST TISSUE DIRECTOR ENTERPRISE SYSTEMS INCLUDING SUBSEQUENT EXPANDERS Right 07/09/2022 Laterality: Right; Surgeon: Apolinar Henry MD; Location: [facility] IMPLANTATION BIOLOGIC IMPLANT FOR SOFT TISSUE REINFORCEMENT ADD-ON PX Right 07/09/2022 RT BREAST RECONSTRUCTION W/ PLACEMENT TISSUE DIRECTOR ENTERPRISE SYSTEMS & ADM/ 150 CC FILL MASTECTOMY Right 1993 BLADDER REPAIR HYSTERECTOMY KNEE SURGERY Bilateral 2017 AND HAD DC DURING SURGERY ORAL SURGERY REMOVAL CATARACT (PEM) [...] Status Never Patient with right breast tissue rigger helper. She has left breast ptosis and hypertrophy. The port is in satisfactory position. The patient has many questions and is undecided regarding further reconstructive plans. She is interested in matching the left breast however this breast is ptotic and larger. I indicated its more difficult to reconstruct a breast that looks identical to that side. [employer] is at its maximal volume of 390 mL for which it could be As a permanent implant. Discussed with the patient that we could consider reassessment in a month to allow the tissue on the right side to relax. After that time we can review the options which may include leaving the rigger helper in place or overexpansion with eventual plans for replacement with a permanent implant. I have reviewed massage of the implant to help soften the pocket. Assessment: Ongoing right breast reconstruction Plan: Pt to RETURN in 1 month FOR RECHECK. They are encouraged to call in the interim with any problems or questions relating to this encounter. [facility] History of Present illness Narrative* Cecile Baker [...] evaluation of continued filling of her tissue rigger helper. She states she had pain following the [...] IN 2017 Malignant neoplasm of female breast DC (myocardial infarction) with knee scope PVD (peripheral vascular disease) Past Surgical History: Procedure Laterality Date RECONSTRUCTION BREAST TISSUE DIRECTOR ENTERPRISE SYSTEMS INCLUDING SUBSEQUENT EXPANDERS Right 07/09/2022 Laterality: Right; Surgeon: Apolinar Henry MD; Location: [facility] IMPLANTATION BIOLOGIC IMPLANT FOR SOFT TISSUE REINFORCEMENT ADD-ON PX Right 07/09/2022 RT BREAST RECONSTRUCTION W/ PLACEMENT TISSUE DIRECTOR ENTERPRISE SYSTEMS & ADM/ 150 CC FILL MASTECTOMY Right 1992 BLADDER REPAIR HYSTERECTOMY KNEE SURGERY Bilateral 2017 AND HAD DC DURING SURGERY ORAL SURGERY REMOVAL CATARACT (PEM) [...] expansion for 3 months before removing the rigger helper and placement of the permanent implant. She presently has 330 mL in and we will put 60 mL in for her to assess the size. The pts Tissue [employer] was Filled with 60 cc's of Injectable Saline (unilaterally) after prepping the skin with alcohol. She tolerated the procedure well. She is to follow up in 2 Weeks for evaluation and possible further expansion. Assessment: Ongoing right breast reconstruction with continued filling of her tissue rigger helper Plan: Pt to RETURN in 2 weeks FOR RECHECK. They are encouraged to call in the interim with any problems or questions relating to this encounter. documented [facility] this [facility]01-11-2023 History of Present illness Narrative* Ameena [...] IN 2017 Malignant neoplasm of female breast DC (myocardial infarction) with knee scope PVD (peripheral vascular disease) Past Surgical History: Procedure Laterality Date RECONSTRUCTION BREAST TISSUE DIRECTOR ENTERPRISE SYSTEMS INCLUDING SUBSEQUENT EXPANDERS Right 07/09/2022 Laterality: Right; Surgeon: Apolinar Henry MD; Location: [facility] IMPLANTATION BIOLOGIC IMPLANT FOR SOFT TISSUE REINFORCEMENT ADD-ON PX Right 07/09/2022 RT BREAST RECONSTRUCTION W/ PLACEMENT TISSUE DIRECTOR ENTERPRISE SYSTEMS & ADM/ 150 CC FILL MASTECTOMY Right 1992 BLADDER REPAIR HYSTERECTOMY KNEE SURGERY Bilateral 2016 AND HAD DC DURING SURGERY ORAL SURGERY REMOVAL CATARACT (PEM) [...] side which is nontender. The pts Tissue [employer] was Filled with The 75 cc's of [...] relating to this encounter. [facility] History of Present illness Narrative* [...] IN 2017 Malignant neoplasm of female breast DC (myocardial infarction) with knee scope Past Surgical History: Procedure Laterality Date RECONSTRUCTION BREAST TISSUE DIRECTOR ENTERPRISE SYSTEMS INCLUDING SUBSEQUENT EXPANDERS Right 07/09/2022 Laterality: Right; Surgeon: Apolinar Henry MD; Location: [facility] IMPLANTATION BIOLOGIC IMPLANT FOR SOFT TISSUE REINFORCEMENT ADD-ON PX Right 07/09/2022 RT BREAST RECONSTRUCTION W/ PLACEMENT TISSUE DIRECTOR ENTERPRISE SYSTEMS & ADM/ 150 CC FILL MASTECTOMY Right 1993 BLADDER REPAIR HYSTERECTOMY KNEE SURGERY Bilateral 2016 AND HAD DC DURING SURGERY ORAL SURGERY REMOVAL CATARACT (PEM) [...] There is no discoloration. The pts Tissue [employer] was Filled with 35 cc's of Injectable Saline (bilaterally/unilaterally) after prepping the skin with alcohol. She tolerated the procedure well. She is to follow up in 2 Weeks for evaluation and further expansion. Assessment: Acquired absence right breast. Patient for expansion of tissue rigger helper Plan: Pt to RETURN in 2 weeks FOR RECHECK. They are encouraged to call in the interim with any problems or questions relating to this encounter. [facility] History of Present illness Narrative* [...] IN 2017 Malignant neoplasm of female breast DC (myocardial infarction) with knee scope Past Surgical History: Procedure Laterality Date RECONSTRUCTION BREAST TISSUE DIRECTOR ENTERPRISE SYSTEMS INCLUDING SUBSEQUENT EXPANDERS Right 07/09/2022 Laterality: Right; Surgeon: Apolinar Henry MD; Location: [facility] IMPLANTATION BIOLOGIC IMPLANT FOR SOFT TISSUE REINFORCEMENT ADD-ON PX Right 07/09/2022 RT BREAST RECONSTRUCTION W/ PLACEMENT TISSUE DIRECTOR ENTERPRISE SYSTEMS & ADM/ 150 CC FILL MASTECTOMY Right 1993 BLADDER REPAIR HYSTERECTOMY KNEE SURGERY Bilateral 2016 AND HAD DC DURING SURGERY ORAL SURGERY REMOVAL CATARACT (PEM) [...] relating to this encounter. [facility] History of Present illness Narrative* [...] IN 2017 Malignant neoplasm of female breast DC (myocardial infarction) with knee scope Past Surgical History: Procedure Laterality Date RECONSTRUCTION BREAST TISSUE DIRECTOR ENTERPRISE SYSTEMS INCLUDING SUBSEQUENT EXPANDERS Right 07/09/2022 Laterality: Right; Surgeon: Apolinar Henry MD; Location: [facility] IMPLANTATION BIOLOGIC IMPLANT FOR SOFT TISSUE REINFORCEMENT ADD-ON PX Right 07/09/2022 RT BREAST RECONSTRUCTION W/ PLACEMENT TISSUE DIRECTOR ENTERPRISE SYSTEMS & ADM/ 150 CC FILL MASTECTOMY Right 1992 BLADDER REPAIR HYSTERECTOMY KNEE SURGERY Bilateral 2016 AND HAD DC DURING SURGERY ORAL SURGERY REMOVAL CATARACT (PEM) [...] right breast reconstruction with placement of tissue rigger helper Plan: Pt to RETURN in 2 weeks FOR RECHECK. They are encouraged to call in the interim with any problems or questions relating to this encounter. [facility] in this [facility] History of Present illness Narrative* [...] for evaluation of Right breast reconstruction with rigger helper on 07/09/22. She complains of soreness, 7/10 [...] IN 2017 Malignant neoplasm of female breast DC (myocardial infarction) with knee scope Past Surgical History: Procedure Laterality Date RECONSTRUCTION BREAST TISSUE DIRECTOR ENTERPRISE SYSTEMS INCLUDING SUBSEQUENT EXPANDERS Right 07/09/2022 Laterality: Right; Surgeon: Apolinar Henry MD; Location: [facility] IMPLANTATION BIOLOGIC IMPLANT FOR SOFT TISSUE REINFORCEMENT ADD-ON PX Right 07/09/2022 Laterality: Right; Surgeon: Apolinar Henry MD; Location: [facility] MASTECTOMY Right 1992 BLADDER REPAIR HYSTERECTOMY KNEE SURGERY Bilateral 2016 AND HAD DC DURING SURGERY ORAL SURGERY REMOVAL CATARACT (PEM) [...] breast reconstruction with placement of a tissue rigger helper Plan: Pt to RETURN in 1 week FOR RECHECK. They are encouraged to call in the interim with any problems or questions relating to this encounter. [facility] in [facility] Nurse Surgical operation note* Deanna [...] Les. Encouraged to use CPAP at home. [facility] Nurse Note* Deanna Jimenez RN [...] Patient connected to Monitors. [facility]10-27-[facility] Nurse Surgical operation note* Alphonse Craft [...] pain, VSS, resp even and unlabored. . [facility] Discharge instructions* Discharge Instructions* [...] Care Everywhere. * Incentive Spirometer: General Info (Algerian) documented in this [facility]10-27-2022 Note* Brief Op Note - Apolinar Henry MD - 07/09/2022 2:34 PM EDT POST OPERATIVE/PROCEDURE NOTE Berenice Nolasco ([id number]) SURGEON Surgeon(s) and Role: * Apolinar Henry MD - Primary WILL CALL CLERK YEYO ANESTHESIOLOGIST IT SPECIALIST: Real Hahn APRN-[employer] STAFF Hand Cultivator: Marleni Swartz RN; Joanna Flores RN Monitoring Nurse: Linsey Reyes RN Registered Nurse Manager Fiber: Cady Vasquez RN Scrub Person: Laisha An LPN Directory Assistance Operator: Janet Feldman PROCEDURE PERFORMED Right breast reconstruction with placement of tissue rigger helper ([id number]) 150cc initial fill PRIMARY CLOSURE Yes [...] Henry MD July 09, 2022 2:34 PM [facility] Miscellaneous Notes* Brief Op Note - Apolinar Henry MD - 07/09/2022 2:34 PM EDT POST OPERATIVE/PROCEDURE NOTE Berenice Nolasco ([id number]) SURGEON Surgeon(s) and Role: * Apolinar Henry MD - Primary WILL CALL CLERK YEYO ANESTHESIOLOGIST IT SPECIALIST: Real Hahn APRN-[employer] SURGICAL STAFF Hand Cultivator: Marleni Swartz RN; Joanna Flores, RN Monitoring Nurse: Linsey Reyes RN Registered Nurse Manager Fiber: Cady Vasquez RN Scrub Person: Laisha An LPN Directory Assistance Operator: Janet Feldman PROCEDURE PERFORMED Right breast reconstruction with placement of tissue rigger helper ([id number]) 150cc initial fill PRIMARY CLOSURE Yes [...] 09, 2022 2:34 PM documented in this encounterDet[facility]10-[facility] Nurse Surgical operation note* Joanna Flores RN - 07/09/2022 12:24 PM EDT OR room temp 68f Humidity 305 Firescore 2 Prep dry prior to draping. Procedure completed. Dressings applied. Patient transported to PACU by holly segovia RN and Nuno hahn CRNA. Report given to alphonse DIAZ upon arrival. Patient connected to Monitors. [facility] History and physical note* Apolinar Henry MD - 07/09/2022 10:58 AM EDT I have examined the patient and reviewed the previous H&P completed on date 06/24/22 and there are no changes. See paper H&P in chart Apolinar Henry MD, 07/09/2022, 10:59 AM. [facility] History and physical note* Apolinar Henry MD - 07/09/2022 10:58 AM EDT I have examined the patient and reviewed the previous H&P completed on date 06/24/22 and there are no changes. See paper H&P in chart Apolinar Henry MD, 07/09/2022, 10:59 AM. documented in this encounterDet[facility]10-[facility] History of Present illness Narrative* [...] IN 2017 Malignant neoplasm of female breast DC (myocardial infarction) with knee scope Past Surgical History: Procedure Laterality Date MASTECTOMY Right 1993 BLADDER REPAIR HYSTERECTOMY KNEE SURGERY Bilateral 2017 AND HAD DC DURING SURGERY ORAL SURGERY REMOVAL CATARACT (PEM) [...] procedure of Right breast reconstruction with tissue rigger helper Was thoroughly reviewed with the patient. The [...] right breast reconstruction with placement of tissue rigger helper Plan: We will proceed with surgery in the near future and the patient will call with any further questions. I spent 50 minutes total time with the patient. documented in this [facility]10-[facility] History of Present illness Narrative* [...] We discussed direct to implant versus tissue rigger helper and decided on tissue rigger helper to allow flexibility in choosing her size. She understands in a second surgery would be required to either remove the port or replace the implant. I measured her for an implant today which will be a tissue rigger helper--smooth round spectrum [id number] an approximately 12 cm diameter The procedure of Right breast reconstruction with tissue rigger helper was thoroughly reviewed with the patient. The [...] for further preoperative preparation [facility]09-07-20[facility] History of Present illness Narrative* Ameena [...] types of reconstructions described included: 1) Tissue rigger helper and implant based reconstruction, both single and [...] after considering the options documented [facility]05-03-2022 NotePROCEDURE: XR HIPS CHARLIE 5V W [...] Electronically authenticated by: TY BOUDREAUX Date: 2022-01-13 17:[address] [facility] Diagnosis Personal history of malignant neoplasm of breast- Primary 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 absence of breast and nipple [facility] Diagnosis Personal history of malignant neoplasm of breast- Primary 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 absence of breast and nipple 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 absence of breast and nipple [facility] Diagnosis S/P breast reconstruction- Primary Breast replaced by other means 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 absence of breast and nipple Personal history of malignant neoplasm of breast 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 absence of breast and nipple [facility] Diagnosis Acquired absence of right breast- Primary Acquired absence of right breast Personal history of malignant neoplasm of breast Personal history of malignant neoplasm of breast [facility] Diagnosis Acquired absence of right breast and nipple- Primary Acquired absence of breast and nipple Personal history of malignant neoplasm of breast S/P breast reconstruction Breast replaced by other means [facility] Diagnosis Acquired absence of right breast and nipple- Primary Acquired absence of breast and nipple S/P breast reconstruction Breast replaced by other means [facility] Diagnosis S/P breast reconstruction- Primary Breast replaced by other means [facility] Diagnosis S/P breast reconstruction- Primary Breast replaced by other means 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 absence of breast and nipple [facility] Diagnosis Right-sided chest pain [facility] Diagnosis Acquired absence of right breast and nipple- Primary Acquired absence of breast and nipple S/P breast reconstruction Breast replaced by other means [facility] Diagnosis Acquired absence of right breast and nipple- Primary Acquired absence of breast and nipple S/P breast reconstruction Breast replaced by other means [facility] noteNo InformationNort [employer] Other Evaluation noteNo assessment information available [facility] Work Phone: Evaluation note* Diagnosis Onset Date Resolution Status Breast asymmetry between [place] breast and reconstructed breast acute Breast hypertrophy acute History of cancer of right breast acute [facility] Work Phone: Evaluation note* Diagnosis Onset Date Resolution Status BMI 32.0-32.9,adult acute Depression acute GERD (gastroesophageal reflux disease) acute Hyperlipidemia acute Hypothyroid acute Obesity acute NARA on CPAP acute [facility] Work Phone: Evaluation note* Diagnosis Onset Date [...] breast acute S/P breast reconstruction, right acute [facility] Work Phone: Evaluation note* Diagnosis Onset Date [...] breast acute S/P breast reconstruction, right acute [facility] Work Phone: Evaluation note* Diagnosis NARA (obstructive [...] neoplasms, colon [facility] Diagnosis Hyperlipidemia, unspecified hyperlipidemia type (CMS/HCC) [facility] Diagnosis NARA (obstructive sleep apnea) Obstructive sleep apnea (adult) (pediatric) Hypersomnia Hypersomnia, unspecified Snoring Other dyspnea and respiratory abnormality Inadequate sleep hygiene Other specific disorder of sleep of nonorganic origin documented in this encounter [facility]* Diagnosis NARA (obstructive sleep apnea)- Primary [...] cancer Special screening for malignant neoplasms, colon Hypothyroidism, unspecified type (CMS/HCC) Recurrent major depressive disorder, in full remission (CMS/HCC) documented in this encounter [facility] HealthcareEvaluation note* Diagnosis NARA (obstructive sleep apnea)- Primary [...] cancer Special screening for malignant neoplasms, colon Hyperlipidemia, unspecified hyperlipidemia type (CMS/HCC) [facility] Diagnosis Onset Date Resolution Status Admit Date BMI 32.0-32.9,adult acute November 13, 2024 1:30pm Depression acute November 13 1:30pm GERD (gastroesophageal reflu x disease) acute November 13, 2024 1:30pm Hyperlipidemia acute November 13, 2024 1:30pm Hypothyroid acute November 13 1:30pm Obesity acute November 13 1:30pm NARA on CPAP November 13 1:30pm [facility] Work Phone: History general Narrative - Reported* [...] side breast tissue expand er Surgical History [place] teeth Surgical History 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 Surgical History Heart cath Surgical History Dental implant Hospitalization History See above [employer] Other History general Narrative - Reported* [...] side breast tissue expand er Surgical History [place] teeth Surgical History 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 Surgical History Heart cath Surgical History Dental implant Surgical History Inguinal hernia repair Surgical History Steroid injections in back Hospitalization History See above [employer] Other Reason for visit Narrative* Auth/Cert Specialty Diagnoses / Procedures Referred By Contmarine t Referred To Contact Diagnoses 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 Personal history of malignant neoplasm of breast [Z85.3] 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] Procedures ND TISSUE DIRECTOR ENTERPRISE SYSTEMS PLACEMENT BREAST RECONSTRUCTION ND IMPLNT BIO IMPLNT FOR SOFT TISSUE REINFORCEMENT RECONSTRUCTION BREAST TISSUE DIRECTOR ENTERPRISE SYSTEMS INCLUDING SUBSEQUENT EXPANDERS IMPLANTATION BIOLOGIC IMPLANT FOR SOFT TISSUE REINFORCEMENT ADD-ON PX Apolinar Henry MD [address] [place] [address] Referral ID Status Reason Start Date Expiration Date Visits Re quested Visits Authorized [id number] 06/10/2022 1 [facility] Summary Purpose Family History No Family History [...] Date/ Time Name of Medical Power of Dry House Worker SPOUSE December 30, 2023 10:37am Living Will Yes December 30, 2023 10:37am Power of Dry House Worker Yes December 29 10:37am Advance Directive Response Recorded Date/ Time Living Will Yes December 30, 2023 10:37am Power of Dry House Worker Yes December 29 10:37am Chief Complaint and Reason for Visit Chief Complaint Consult Chief Complaint Consult preop #1 left breast red/ right rigger helper port Reason for Visit Breast asymmetry [place] breast and reconstructed breast Breast hypertrophy History of cancer of right breast Chief Complaint Wmn F/U Obesity 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 Reason for Visit BMI 32.0-32.9,adult Depression GERD (gastroesophageal reflux disease) Hyperlipidemia Hypothyroid Obesity NARA on CPAP Chief Complaint 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 WM RD followu p Reason for Visit BMI 32.0-32.9,adult Depression GERD (gastroesophageal reflux disease) Hyperlipidemia Hypothyroid Obesity NARA on CPAP Chief Complaint Follow up Reason for Visit Breast asymmetry [place] breast and reconstructed breast Breast hypertrophy History of cancer of right breast Chief Complaint Follow up pre op #1 Left Breast reduction/port removal Reason for Visit Breast asymmetry [place] breast and reconstructed breast Breast hypertrophy History of cancer of right breast Chief Complaint Follow up pre op #1 Left Breast reduction/port removal pre op #2 left breast reduction/port removal Left Breast Reduction for Symmetry, Removal Right Left Breast Reduction for Symmetry, Removal Right Reason for Visit Breast asymmetry [place] breast and reconstructed breast Breast hypertrophy History of cancer of right breast Breast asymmetry between [place] breast and reconstructed breast Breast hypertrophy History of cancer of right breast S/P breast reconstruction, right Breast asymmetry between [place] breast and reconstructed breast History of cancer of right breast S/P breast reconstruction, right Breast asymmetry between [place] breast and reconstructed breast Breast hypertrophy History of cancer of right breast S/P breast reconstruction, right Chief Complaint WM RD followu p Reason for Visit BMI 32.0-32.9,adult Depression GERD (gastroesophageal reflux disease) Hyperlipidemia Hypothyroid Obesity NARA on CPAP Chief Complaint Follow up pre op #1 Left Breast reduction/port removal pre op #2 left breast reduction/port removal Reason for Visit Breast asymmetry [place] breast and reconstructed breast Breast hypertrophy History of cancer of right breast Breast asymmetry between [place] breast and reconstructed breast Breast hypertrophy History of cancer of right breast S/P breast reconstruction, right Breast asymmetry between [place] breast and reconstructed breast History of cancer of right breast S/P breast reconstruction, right Chief Complaint WMN f/u Reason for Visit BMI 32.0-32.9,adult Depression GERD (gastroesophageal reflux disease) Hyperlipidemia Hypothyroid Obesity NARA on CPAP Chief Complaint Admit Date 3 month November 13, 2024 1:30 pm Reason for Visit Admit Date BMI 32.0-32.9,adult November 13, 2024 1:30 pm Depression November 13, 2024 1:30 pm GERD (gastroesophageal reflux disease) M 2024 1:30pm Hyperlipidemia November 13, 2024 1:30 pm Hypothyroid November 13, 2024 1:30 pm Obesity November 13, 2024 1:30 pm NARA on CPAP November 13, 2024 1:30 pm Additional Source Comments INFORMATION SOURCE (unrecogn ized section and content) DATE CREATED AUTHOR 03/07/2018 Cecil Nava [facility] DATE CREATED AUTHOR AUTHOR'S ORGANIZ ATION 08/23/2018 [facility] DATE CREATED AUTHOR AUTHOR'S ORGANIZ ATION 09/01/2018 [facility] DATE CREATED AUTHOR AUTHOR'S ORGANIZ ATION 12/11/2020 [facility] DATE CREATED AUTHOR AUTHOR'S ORGANIZ ATION 07/10/2022 [facility] DATE CREATED AUTHOR AUTHOR'S ORGANIZ ATION 11/20/2022 [facility] DATE CREATED AUTHOR AUTHOR'S ORGANIZ ATION 12/25/2022 [facility] DATE CREATED AUTHOR AUTHOR'S ORGANIZ ATION 02/12/2024 [facility] DATE CREATED AUTHOR AUTHOR'S ORGANIZ ATION 03/04/2024 [facility] DATE CREATED AUTHOR AUTHOR'S ORGANIZ ATION 07/02/2024 [facility] DATE CREATED AUTHOR AUTHOR'S ORGANIZ ATION 07/13/2024 [facility] DATE CREATED AUTHOR AUTHOR'S ORGANIZ ATION 09/13/2024 [facility] DATE CREATED AUTHOR AUTHOR'S ORGANIZ ATION 10/06/2024 [facility] DATE CREATED AUTHOR AUTHOR'S ORGANIZ ATION 11/26/2024 [facility] DATE CREATED AUTHOR AUTHOR'S ORGANIZ ATION 11/27/2024 [facility] Reason for Visit (unrecogniz ed section [...] Op Visit Right breast reconst ruction with rigger helper on 07/09/22. She complains of soreness, 7/10 [...] Comments Establish Care One month recheck Reason Comments Hip Pain Reason Comments Sleep Apnea Reason Onset Date Comments Med Refill 10/09/2024 Reason Onset Date Comments Med Refill 11/01/2024 Care Teams (unrecognized sec tion and content) Warehouse Order Filler Relationship Specialty Start Date End Date Shaikh Kerry Villagran MD [address] [place] [phone] PCP - General Internal Medicine 05/20/22 Warehouse Order Filler Relationship Specialty Start Date End Date Shaikh Kerry Villagran MD [address] [place] [address] PCP - General Internal Medicine 05/20/22 Warehouse Order Filler Relationship Specialty Start Date End Date Shaikh Kerry Villagran MD [address] [place] [address] PCP - General Internal Medicine 05/20/22 Warehouse Order Filler Relationship Specialty Start Date End Date Shaikh Kerry Villagran MD [address] [place] [address] PCP - General Internal Medicine 05/20/22 Warehouse Order Filler Relationship Specialty Start Date End Date Shaikh Kerry Villagran MD [address] [place] [address] PCP - General Internal Medicine 05/20/22 Warehouse Order Filler Relationship Specialty Start Date End Date Shaikh Kerry Villagran MD [address] [place] [phone] PCP - General Internal Medicine 05/20/22 Team Status: Active Member Role Status Dates SHEIKH TYSHAWN Primary Care Provider Active Team Status: Inactive Member Role Status Dates Dr. Apolinar Henry MD Attending Provider Active Team Status: Active Member Role Status Chan Villagran MD Primary Care Provider Active Team Status: [...] November 01, 2023 End: November 01, 2023 Team Status: Inactive Member Role Status [...] May 08, 2024 End: May 08, 2024 Warehouse Order Filler Relationship Specialty Start Date End Date Shaikh Villagran MD [address] [place] [phone] PCP - Jason ACOSTA 05/14/24 Trino Montiel MD [address] [place] [phone] PCP - General Family Medicine 07/11/24 Debbi Alicia NP [address] [place] [address] Nurse Practitioner Family Medicine 07/11/24 Warehouse Order Filler Relationship Specialty Start Date End Date Shaikh Villagran MD [address] [place] [phone] PCP Nadia Gomez MA 05/14/24 Trino Montiel MD [address] [place] [address] PCP - General Family Medicine 07/11/24 Debbi Alicia NP [address] [place] [address] Nurse Practitioner Family Medicine 07/11/24 Warehouse Order Filler Relationship Specialty Start Date End Date Shaikh Villagran MD [address] [place] [address] PCP - General Internal Medicine 11/29/23 Elizabeth Evans NP [address] [place] [address] Nurse Practitioner Family Medicine 06/13/23 Warehouse Order Filler Relationship Specialty Start Date End Date Shaikh Villagran MD [address] [place] [address] PCP - General Internal Medicine 11/29/23 Elizabeth Evans NP [address] [place] [address] Nurse Practitioner Family Medicine 06/13/23 Warehouse Order Filler Relationship Specialty Start Date End Date Shaikh Villagran MD [address] [place] [address] PCP - Jason ACOSTA 05/14/24 Trino Montiel MD [address] [place] [phone] PCP - General Family Medicine 07/11/24 Debbi Alicia NP [address] [place] [phone] Nurse Practitioner Family Medicine 07/11/24 Warehouse Order Filler Relationship Specialty Start Date End Date Trino Montiel MD [address] [place] [address] PCP - General Family Medicine 07/11/24 Debbi Alicia NP [address] [place] [address] Nurse Practitioner [facility] 07/11/24 Team Status: Inactive Member Role Status Dates Shaikh Tyshawn MD Primary Care Provider Active Start: November 13, 2024 End: November 13, 2024 Susanne Jordan APRN Attending Provider Active Start: November 13, 2024 End: November 13, 2024 Scheduled Active and Recently Administ ered Medications (unrecognized section and content) Medication Order 07/07/2022 07/08/2022 07/09/2022 clindamycin (CLEOCIN) 900 mg in normal saline 50 ml premix IVPB (COMPLETED) 900 mg, Intravenous, Administer over 30 Minutes, ONCE, 1 dose, On Carla 07/09/22 at 0845, Pre-op/Pre-Proc 1151 (Given - Provid er: Real Hahn APRN-IT SPECIALIST) Continuous Medication Order 07/07/2022 07/08/2022 07/09/2022 lactated ringers IV solution Intravenous, at 50 mL/hr, CONTINUOUS, Starting on Carla 07/09/22 at 0845, Until Carla 07/09/22 at 1916, Pre-op/Pre-Proc 1129 ($$New Bag$$ - Provider: WISAM OchoaIT SPECIALIST)1153 (Paused - Provider: REBEL Ochoa - Comment: [...] BE BASED ON THE PRIMARY CLINICAL RECORDS. [employer] provides no warranty or guarantee of the accuracy or completeness of information in this document.
== END 2024-11-30 13:13 | disposition home or self-care (01) ==
LOC: PM 13:12
PROVIDERS: Visit Provider Nurse Practitioner
DX: M46.1 Sacroiliitis, not elsewhere classified (principal); M70.62 Trochanteric bursitis, left hip; M70.61 Trochanteric bursitis, right hip; M47.816 Spondylosis without myelopathy or radiculopathy, lumbar region; M48.062 Spinal stenosis, lumbar region with neurogenic claudication
CPT/HCPCS: G0463

== ENCOUNTER 2025-02-13 14:28 | Outpatient (OUT) | payer MEDICARE, OTHER, SELFPAY ==
--- OUTSIDE RECORDS SUMMARY | 2025-02-07 14:00 | XMS_ITS | Encounter Summary ---
Author Organization [facility] Address [address] [facility] [place] [address] Care Team Providers Care Cage Maker Machine Name Role Phone Trino Agee MD Primary Care Provider [phone] Lula Alicia POLE PEELING MACHINE OPERATOR HELPER Unavailable [phone] Reason for Visit * Reason Comments Medicare Annual Wellness Visit Initial Encounter Details Date Type Department Care Team (Late st Contact Info) Description 02/07/2025 2:00 PM EDT Office Visit [facility] [address] [place] [address] Elizabeth Evans NP [address] [place] [id number] Encounter for subsequent annual wellness visit (AWV) in Medicare patient (Primary Dx); NARA (obstructive sleep apnea); Gastroesophageal reflux disease without esophagitis; Mixed hyperlipidemia ([facility]/HCC); Primary malignant neoplasm of female breast ([facility]/HCC); Recurrent major depressive disorder, in full remission ([facility]/HCC); Hypothyroidism, unspecified type ([facility]/HCC) Social History Tobacco Use Types Packs/Day Years Used Date Smoking Tobacco: Never Passive Smoke Exposure: Never Alcohol Use Standard Drinks/Week Comments Never 0 (1 standard drink = 0.6 oz pur e alcohol) caffeine: none PHQ-2 Answer Date Recorded Patient Health Questionnaire-2 Score 2 02/07/2025 Comments No Sex and Gender Information Value Date Recorded Sex Assigned at Not on file Legal Sex Female 7:03 PM EDT Gender Identity Not on file Sexual Orientation Not on file documented as of this encounter Last Filed Vital Signs Vital Sign Reading Time Taken Comments Blood Pressure 132/84 02/07/2025 2:23 PM EDT Pulse 68 02/07/2025 2:23 PM EDT Temperature 37.2 C (98.9 F) 02/07/2025 2:23 PM EDT Respiratory Rate 18 02/07/2025 2:23 PM EDT Oxygen Saturation 92% 02/07/2025 2:23 PM EDT Inhaled Oxygen Concentration - - Weight 92.5 kg (204 lb) 02/07/2025 2:23 PM EDT Height - - Body Mass Index 32.93 12/21/2024 3:46 PM EDT documented in this encounter Functional Status * Over the past 2 weeks, how often have you been bothered by any of the following problems? Question Answer Date of Assessment Author Little interest or pleasure in doing things Several days 02/07/2025 2:26 PM EDT LORENZA JOHNSON Feeling down, depressed, or hopeless Several days 02/07/2025 2:26 PM EDT LORENZA JOHNSON Patient Health Questionnaire -2 Score 2 02/07/2025 2:26 PM EDT LORENZA JOHNSON * Question Answer Date of Assessment Author Trouble falling or staying asleep, or sleeping too much Several days 02/07/2025 2:26 PM EDT ELVA PLAZA Feeling tired or having keron le energy Several days 02/07/2025 2:26 PM EDT LORENZA JOHNSON Poor appetite or overeating Not at all 02/07/2025 2: 26 PM EDT ELVA JOHNSON Feeling bad about yourself - or that you are a failure or have let yourself or your family down Not at all 02/07/2025 2:26 PM EDT LORENZA JOHNSON Trouble concentrating on things, such as reading the newspaper or watching television Not at all 02/07/2025 2:26 PM EDT LORENZA JOHNSON Moving or speaking so slowly that other people could have noticed? Or the opposite - being so fidgety or restless that you have been moving around a lot more than usual. Not at all 02/07/2025 2:26 PM EDT ELVA ROSE Thoughts that you would be better off or hurting yourself in some way Not at all 02/07/2025 2:26 PM EDT SUE JOHNSON Patient Health Questionnaire -9 Score 4 02/07/2025 2:26 PM EDT LORENZA JOHNSON * How difficult have these problems made it for you to do your work, take care of things at home, or get along with other people? Answer Date of Assessment Author Not difficult at all 02/07/2025 2:26 PM EDT ELVA VERONICA documented as of this encounter Progress Notes * Elizabeth Evans, MELINA - 02/07/2025 2:00 PM EDT Images from the original note were not included. Berenice Nolasco is a 74 y.o. female presents with chief complaint of Medicare Annual Wellness Visit Initial HPI: Diet:variety Activity: no Mental Health Concerns:depression Falls in the last year: no Still driving: yes Do you pay your bills: yes Any hearing problems: slight with background noise Any Vision problems: wears glasses, Any Hospitalizations in the last year: no Specialist: vascular, neurogram HCPOA/Living Will: yes Concerns: Thyroid: take daily meds, tired yes SUBJECTIVE: MEDICATIONS: Current Outpatient Medications Medication Instructions aspirin (ASPIRIN LOW DOSE) 81 mg, Every 24 hours calcium citrate 600 mg and vitamin D3 (Citrical & Minerals + Vit D) 600-200 MG- UNIT tablet 1 tablet, Daily citalopram (CELEXA) 30 mg, Oral, Daily esomeprazole (NEXIUM) 40 mg, Oral, Daily fesoterodine ER (TOVIAZ) 8 mg, Daily levothyroxine (SYNTHROID, LEVOXYL) 50 mcg, Oral, Daily Multiple Vitamins-Minerals (Multivitamin Women 50+) tablet 1 tablet, Daily Ozempic (0.25 or 0.5 MG/DOSE) 0.25 mg, Weekly simvastatin (ZOCOR) 20 mg, Oral, Nightly ALLERGIES: Allergies Allergen Reactions Percocet [Oxycodone-Acetaminophen] Swelling FACIAL SWELLING AND REDNESS Sulfamethoxazole-Trimethoprim Other Penicillin G Procaine Rash REVIEW OF SYMPTOMS: Review of Systems Constitutional: Positive for fatigue. Negative for appetite change, chills and fever. HENT: Negative for congestion, ear pain and sore throat. Eyes: Negative for pain, discharge, redness and visual disturbance. Respiratory: Negative for cough, shortness of breath and wheezing. Cardiovascular: Negative for chest pain, palpitations and leg swelling. Gastrointestinal: Negative for abdominal pain, blood in stool, constipation, diarrhea, nausea and vomiting. Genitourinary: Negative for difficulty urinating, dysuria and frequency. Musculoskeletal: Negative for arthralgias, back pain, joint swelling and myalgias. Skin: Negative for rash and wound. Neurological: Negative for dizziness, tremors, seizures, syncope and headaches. Psychiatric/Behavioral: Negative for behavioral problems, self-injury and suicidal ideas. The patient is not nervous/anxious. Hematological: Does not bruise/bleed easily. Endocrine: Negative for polydipsia, polyphagia and polyuria. Allergic/Immunologic: Negative for environmental allergies and food allergies. PAST MEDICAL HISTORY Past Medical History: Diagnosis Date Anemia Breast cancer ([facility]/HCC) CAD (coronary artery disease) ([facility]) Depression ([facility]) GERD (gastroesophageal reflux disease) History of MS (myocardial infarction) ([facility]) Hypercholesterolemia ([facility]) Obesity Pulsatile tinnitus, right ear Urinary frequency and incontinence Past Surgical History: Procedure Laterality Date CARDIAC CATHETERIZATION 2013 CATARACT EXTRACTION 2013 cataracts DILATION AND CURETTAGE OF UTERUS GUM SURGERY 2013 gum graft HYSTERECTOMY KNEE SURGERY Bilateral knee arthroscopy MASTECTOMY Right 1992 and lymph node disecction OTHER SURGICAL HISTORY 2012 cervix ablation SEPTOPLASTY 1994 SHOULDER ARTHROSCOPY Right 2012 TUBAL LIGATION 1994 family history includes Cancer in her maternal grandfather; Heart disease in her father and mother;Hypertension in her father; Stroke in her mother. OBJECTIVE: Visit Vitals BP 132/84 (BP Location: Left arm, Patient Position: Sitting, BP Cuff Size: Adult long) Pulse 68 Temp 98.9 ??F (Temporal) Resp 18 Wt 204 lb SpO2 92% BMI 32.93 kg/m?? OB Status Hysterectomy Smoking Status Never BSA 2.08 m?? Physical Exam Vitals and nursing note reviewed. Constitutional: General: She is not in acute distress. Appearance: Normal appearance. She is obese. She is not ill-appearing. HENT: Head: Normocephalic and atraumatic. Right Ear: External ear normal. Left Ear: External ear normal. Nose: Nose normal. Mouth/Throat: Mouth: Mucous membranes are moist. Eyes: Extraocular Movements: Extraocular movements intact. Conjunctiva/sclera: Conjunctivae normal. Neck: Vascular: No carotid bruit. Cardiovascular: Rate and Rhythm: Normal rate and regular rhythm. Pulses: Normal pulses. Heart sounds: Normal heart sounds. Pulmonary: Effort: Pulmonary effort is normal. Breath sounds: Normal breath sounds. No wheezing or rhonchi. Abdominal: General: Bowel sounds are normal. There is no distension. Palpations: Abdomen is soft. There is no mass. Tenderness: There is no abdominal tenderness. Musculoskeletal: General: Normal range of motion. Cervical back: Normal range of motion and neck supple. Right lower leg: No edema. Left lower leg: No edema. Lymphadenopathy: Cervical: No cervical adenopathy. Skin: General: Skin is warm and dry. Capillary Refill: Capillary refill takes 2 to 3 seconds. Findings: No rash (peeling skin from palms of hand, not itchy). Neurological: General: No focal deficit present. Mental Status: She is alert and oriented to person, place, and time. Psychiatric: Mood and Affect: Mood normal. Behavior: Behavior normal. Thought Content: Thought content normal. Judgment: Judgment normal. ASSESSMENT AND PLAN: No follow-ups on file. Problem List Items Addressed This Visit Gastroesophageal reflux disease Recommendations: freq small meals, nothing to eat or drink at least 2 hours prior to bed, limit caffeine, alcohol, as well as spicy foods Meds to limit or avoid if possible: NSAIDS Elevate HOB if possible Current med: PPI Relevant Orders CBC and differential Comprehensive metabolic panel Hyperlipidemia (CMS/HCC) On statin therapy Check labs yearly and prn dose changes Relevant Orders Comprehensive metabolic panel Lipid panel Primary malignant neoplasm of female breast (CMS/HCC) In the past NARA (obstructive sleep apnea) - Primary You have a diagnosis of obstructive sleep apnea. It is recommended that you wear your PAP device any time while in bed sleeping. Not using the PAP device can increase your risk of elevated/uncontrolled high blood pressure, atrial fibrillation, heart attack, stroke, or sudden . Compliance with PAP: yes How many hours of use per night: 10 hours Do you feel more refreshed in the morning: yes Company that supplies your machine and tubing/filters etc: Med supply Doctor that manages your NARA: Karina Relevant Orders CBC and differential Hypothyroidism (CMS/HCC) On levothyroxine Check labs yearly and prn dose change or changes in sxs Relevant Orders CBC and differential Comprehensive metabolic panel TSH T4, free Recurrent major depressive disorder, in full remission (CMS/HCC) Current med: celexa Encounter for subsequent annual wellness visit (AWV) in Medicare patient Reviewed Ht/Wt/BMI Recommend eye exam yearly Recommend dental exams twice a year Balance work/leisure activities Exercises is recommended most days of the week (appropriate as chronic conditions allow) Follow up yearly and prn * Elizabeth Evans NP - 02/07/2025 7:03 AM EDTAssociated Problem(s): Encounter for subsequent annual wellness visit (AWV) in Medicare patient Reviewed Ht/Wt/BMI Recommend eye exam yearly Recommend dental exams twice a year Balance work/leisure activities Exercises is recommended most days of the week (appropriate as chronic conditions allow) Follow up yearly and prn * Elizabeth Evans NP - 02/07/2025 7:03 AM EDTAssociated Problem(s): Hypothyroidism (CMS/HCC) On levothyroxine Check labs yearly and prn dose change or changes in sxs * Elizabeth Evans NP - 02/07/2025 7:02 AM EDTAssociated Problem(s): Recurrent major depressive disorder, in full remission (CMS/HCC) Current med: celexa * Elizabeth Evans NP - 02/07/2025 7:02 AM EDTAssociated Problem(s): Primary malignant neoplasm of female breast (CMS/HCC) In the past * Elizabeth Evans NP - 02/07/2025 7:02 AM EDTAssociated Problem(s): Hyperlipidemia (CMS/HCC) On statin therapy Check labs yearly and prn dose changes * Elizabeth Evans NP - 02/07/2025 7:01 AM EDTAssociated Problem(s): Gastroesophageal reflux disease Recommendations: freq small meals, nothing to eat or drink at least 2 hours prior to bed, limit caffeine, alcohol, as well as spicy foods Meds to limit or avoid if possible: NSAIDS Elevate HOB if possible Current med: PPI * Elizabeth Evans NP - 02/07/2025 7:01 AM EDTAssociated Problem(s): NARA (obstructive sleep apnea) You have a diagnosis of obstructive sleep apnea. It is recommended that you wear your PAP device any time while in bed sleeping. Not using the PAP device can increase your risk of elevated/uncontrolled high blood pressure, atrial fibrillation, heart attack, stroke, or sudden . Compliance with PAP: yes How many hours of use per night: 10 hours Do you feel more refreshed in the morning: yes Company that supplies your machine and tubing/filters etc: Med supply Doctor that manages your NARA: Karina documented in this encounter Plan of Treatment Upcoming Encounters Date Type Department Care Team (Late st Contact Info) Description 08/13/2025 2:20 PM EST Office Visit [facility] [address] [place] [address] Elizabeth Evans NP [address] [place] [address] 02/13/2026 5:00 PM EDT Office Visit [facility] [address] [place] [address] Elizabeth Evans NP [address] [place] [address] Scheduled Orders Name Type Priority Associated Diagnoses Orde r Schedule CBC and differential Lab Routine NARA (obstructive sleep apnea) Gastroesophageal reflux disease without esophagitis Hypothyroidism, unspecified type (CMS/HCC) Expected: 02/07/2025 (Approximate), Expires: 02/07/2026 Comprehensive metabolic panel Lab Routine Gastroesophageal reflux disease without esophagitis Mixed hyperlipidemia (CMS/HCC) Hypothyroidism, unspecified type (CMS/HCC) Expected: 02/07/2025 (Approximate), Expires: 02/07/2026 Lipid panel Lab Routine Mixed hyperlipidemia (CMS/HCC) Expected: 02/07/2025 (Approximate), Expires: 02/07/2026 TSH Lab Routine Hypothyroidism, unspecified type (CMS/HCC) Expected: 02/07/2025 (Approximate), Expires: 02/07/2026 T4, free Lab Routine Hypothyroidism, unspecified type (CMS/HCC) Expected: 02/07/2025 (Approximate), Expires: 02/07/2026 documented as of this encounter Visit Diagnoses Diagnosis Encounter for subsequent annual wellness visit (AWV) in Medicare patient- Primary NARA (obstructive sleep apnea) Obstructive sleep apnea (adult) (pediatric) Gastroesophageal reflux disease without esophagitis Esophageal reflux Mixed hyperlipidemia (CMS/HCC) Mixed hyperlipidemia Primary malignant neoplasm of female breast (CMS/HCC) Recurrent major depressive disorder, in full remission (CMS/HCC) Hypothyroidism, unspecified type (CMS/HCC) documented in this encounter Additional Health Concerns Assessment Noted Time PHQ-9 Depression Total Score: 4 02/08/20 25 2:26 PM EDT documented as of this encounter Care Teams Cage Maker Machine Relationship Specialty Start Date End Date Trino Agee MD [address] [place] [address] PCP - General Family Medicine 07/11/24 Lula Alicia NP [address] [place] [address] Nurse Practitioner Family Medicine 07/11/24 documented as of this encounter
--- OUTSIDE RECORDS SUMMARY | 2025-02-13 14:32 | XMS_ITS | Encounter Summary ---
Author Organization [facility] tem Address [id number] [address] [place] [address] Care Team Providers Care Machine Heel Seat Fitter Name Role Phone Trino Agee MD Primary Care Provider [phone] Reason for Visit * Reason Onset Date Comments approval for MRI 08/30/2023 Encounter Details Date Type Department Care Team ([facility] Contact Info) Description 08/30/2023 Telephone [facility] Neurology [address] [place] [address] Celso Radha approval for MRI Social History Tobacco Use Types Packs/Day Years Used Date Smoking Tobacco: Never Smokeless Tobacco: Never Alcohol Use Standard Drinks/Week Comments Yes 0 (1 standard drink = 0.6 oz pur e alcohol) PHQ-2 Answer Date Recorded Total Score 1 08/17/2023 Childcare Answer Date Recorded Childcare Unknown 02/22/2019 Employment Answer Date Recorded Employment Unknown 02/22/2019 Hunger Screening Answer Date Recorded Within the past 12 months we worried whether our food would run out before we got money to buy more. Never True 08/17/2023 Within the past 12 months th e food we bought just didn't last and we didn't have money to get more. Never True 08/17/2023 Purpose - Life Answer Date Recorded Purpose and direction in life Unknown Comments No Sex and Gender Information Value Date Recorded Sex Assigned at Not on file Legal Sex Female 11:58 AM EDT Gender Identity Not on file Sexual Orientation Not on file documented as of this encounter Miscellaneous Notes * Telephone Encounter - Radha Houston - 08/30/2023 3:03 PM EST Patient called asking if we have received a MRI clearance from patient's plastic surgeon. Applied Mathematician informed patient that they will call back to inform patient if we have received letter. * Telephone Encounter - Radha Houston - 08/30/2023 3:03 PM EST Applied Mathematician called patient back to inform her that we have not received a letter from plastic surgeon clearing patient for MRI. * Telephone Encounter - Radha Houston - 08/30/2023 3:03 PM EST Patient called and commercial real estate underwriter informed patient that we have not received the approval for MRI. Patient was given clinic's fax number to have clearance be faxed to. documented in this encounter Plan of Treatment Upcoming Encounters Date Type Department Care Team (Late st Contact Info) Description 05/30/2025 8:30 AM EDT Procedure visit [facility] [address] [place] [address], [address] [place] [address] Angel Cole MD [address] [place] [address] 06/06/2025 10:00 AM EDT Appointment [address], [address] [place] [address] 06/06/2025 10:30 AM EDT Office Visit [facility] [address] [place] [address], [address] [place] [address] Angel Cole MD [address] [place] [address] 06/27/2025 8:30 AM EDT Procedure visit [facility] [address] [place] [address], [address] [place] [address] Angel Cole MD [address] [place] [address] 07/02/2025 10:30 AM EDT Appointment [address], [address] [place] [address] 07/02/2025 11:00 AM EDT Office Visit [facility] [address] [place] [address], [address] [place] [address] Jovan Levy, STAFF [employer] OFFICER-MANAGER [employer] [address] [place] [address] documented as of this encounter Visit Diagnoses Not on filedocumented in this encounter Additional Health Concerns Assessment Noted Time PHQ-9 Depression Total Score: 1 08/17/20 23 11:07 AM EST documented as of this encounter Care Teams Machine Heel Seat Fitter Relationship Specialty Start Date End Date Trino Agee MD PCP - General 04/28/13 documented as of this encounter
--- OUTSIDE RECORDS SUMMARY | 2025-02-13 14:32 | XMS_ITS | Clinical Summary ---
Author Organization [facility] Address [address] [place] [address] Care Team Providers Care Investigative Reporter Name Role Phone Shaikh JUAN DIEGO Villagran Primary Care Provider [phone] Allergies Active Allergy Reactions Criticality Noted Date Comments Oxycodone-Acetaminophen Rash,Swelling Low FACIAL SWELLING AND REDNESS Penicillin G Procaine Rash Low 09/02/2023 Sulfamethoxazole-Trimetho prim Other 09/02/2023 Medications Medication Sig Dispensed Refills Start Date End Date Status levothyroxine (Synthroid, Levoxyl) 50 mcg tablet Take 1 tablet by mouth in the morning. 10/16/2022 Active citalopram (CeleXA) 20 mg tablet Take 20 mg by mouth. 11/27/2022 Active fesoterodine 8 mg tablet extended release 24 hr Take 8 mg by mouth in the morning. Active omeprazole (PriLOSEC) [address] capsule 40 mg. 10/29/2023 Active simvastatin (Zocor) 20 mg tablet Take 1 tablet by mouth at bedtime. 09/01/2016 Active famotidine (Pepcid) 20 mg tablet Take 1 tablet by mouth at bedtime. Active aspirin 81 mg chewable tablet Chew 1 tablet every day by oral route. Active multivitamin tablet Take 1 tablet by mouth in the morning. Active melatonin 1 mg tablet,chewable Chew. Active multivitamin with iron-minerals 9 mg iron/15 mL liquid Take 15 mL by mouth in the morning. Active flaxseed oiL 1,000 mg capsule Take 1 capsule every day by oral route. 10/29/2023 Active celecoxib (CeleBREX) 100 mg capsule TAKE 1 CAPSULE BY MOUTH TWICE DAILY NEEDED 05/25/2024 Active semaglutide (Ozempic) 0.25 mg or 0.5 mg(2 mg/1.5 mL) pen injector Inject 0.25 mg under the skin. Active Social History Tobacco Use Types Packs/Day Years Used Date Smoking Tobacco: Never Assessed Tobacco Cessation:Counseling Given: Not Answered Sex and Gender Information Value Date Recorded Sex Assigned at Not on file Gender Identity Not on file Sexual Orientation Not on file Last Filed Vital Signs Vital Sign Reading Time Taken Comments Blood Pressure - - Pulse - - Temperature - - Respiratory Rate - - Oxygen Saturation - - Inhaled Oxygen Concentration - - Weight 98.4 kg (217 lb) 05/05/2022 1:34 PM EDT Height 167.6 cm (5' 6 ) 05/05/2022 1:34 PM EDT Body Mass Index 35.02 05/05/2022 1:34 PM EDT Plan of Treatment Health Maintenance Due Date Last Done Comments CT Colonography 1950 Colonoscopy 1950 Colorectal Cancer Screening 1950 FIT-DNA 1950 FIT 1950 FOBT 1950 Medicare Annual Wellness (AWV) 1950 Sigmoidoscopy 1950 Depression Screening 1962 Fall Risk Screening 2015 Adult Tetanus 01/11/2023 01/11/2013 Zoster Vaccines (2 of 2) 09/01/2023 07/07/2023 COVID-19 Vaccine ( season) 2024 08/05/2021, 12/10/2020, 11/18/2020 Influenza Vaccine (Season Ended) 2025 07/07/2023, 06/12/2022, 08/05/2021, Additional history exists Mammogram Discontinued 11/30/2016 Pneumococcal Vaccine: 65+ Years Completed 07/08/2019, 06/03/2018 HIB Vaccines Aged Out No longer eligi ble based on patient's age to complete this topic HPV Vaccines Aged Out No longer eligi ble based on patient's age to complete this topic IPV Vaccines Aged Out No longer eligi ble based on patient's age to complete this topic Meningococcal B Vaccine Aged Out No l onger eligible based on patient's age to complete this topic Meningococcal Vaccine Aged Out No connie ai eligible based on patient's age to complete this topic Rotavirus Vaccines Aged Out No longer eligible based on patient's age to complete this topic Care Teams Investigative Reporter Relationship Specialty Start Date End Date Shaikh Villagran MD [address] [place] [address] PCP - General Family Medicine 06/19/24
--- OUTSIDE RECORDS SUMMARY | 2025-02-13 14:32 | XMS_ITS | Clinical Summary ---
Author Organization [facility] Address [address] [place] [address] Care Team Providers Care Kelp Cutter Name Role Phone Trino Agee MD Primary Care Provider [phone] Social History Tobacco Use Types Packs/Day Years Used Date Smoking Tobacco: Never Assessed Comments Unknown Sex and Gender Information Value Date Recorded Sex Assigned at Not on file Legal Sex Female 9:41 AM EST Gender Identity Not on file Sexual Orientation Not on file Plan of Treatment Not on file Care Teams Kelp Cutter Relationship Specialty Start Date End Date Trino Agee MD PCP - General Family Medicine 10/19/14
--- OUTSIDE RECORDS SUMMARY | 2025-02-13 14:32 | XMS_ITS | Clinical Summary ---
Author Organization [facility] Address [address] [place] [address] Care Team Providers Care Collar Stitcher Name Role Phone Trino Agee MD Primary Care Provider + Allergies Active Allergy Reactions Criticality Noted Date Comments Penicillins 09/16/2012 Sulfa Antibiotics 09/16/2012 Medications sertraline (ZOLOFT) 50 MG tablet Take 50 mg by mouth daily. Active Calcium Carbonate-Vit D-Min (CALCIUM 1200 PO) Take by mouth. Active esomeprazole (NEXIUM) 40 MG capsule Take 40 mg by mouth daily. Active simvastatin (ZOCOR) 20 MG tablet Take 20 mg by mouth nightly. Active aspirin 81 MG tablet Take 81 mg by mouth daily. Active Flaxseed, Linseed, (FLAX PO) Take 1 tablet by mouth daily. Active Active Problems Problem Noted Date Diagnosed Date Anxiety Social History Tobacco Use Types Packs/Day Years Used Date Smoking Tobacco: Never Alcohol Use Standard Drinks/Week Comments No 0 (1 standard drink = 0.6 oz pur e alcohol) Comments Unknown Sex and Gender Information Value Date Recorded Sex Assigned at Not on file Legal Sex Female 12:58 AM EST Gender Identity Not on file Sexual Orientation Not on file Last Filed Vital Signs Vital Sign Reading Time Taken Comments Blood Pressure 142/88 10/11/2012 10:52 AM EST Pulse 79 10/11/2012 10:52 AM EST Temperature 36.5 C (97.7 F) 10/11/2012 10:52 AM EST Respiratory Rate 16 10/11/2012 10:52 AM EST Oxygen Saturation - - Inhaled Oxygen Concentration - - Weight 87.5 kg (193 lb) 10/11/2012 10:52 AM EST Height 167.6 cm (5' 6 ) 10/11/2012 10:52 AM EST Body Mass Index 31.15 10/11/2012 10:52 AM EST Plan of Treatment Not on file Care Teams Collar Stitcher Relationship Specialty Start Date End Date Trino Agee MD PCP - General 09/17/11
--- OUTSIDE RECORDS SUMMARY | 2025-02-13 14:32 | XMS_ITS | Encounter Summary ---
Author Organization [facility] Address [id number] [address] [place] [address] Care Team Providers Care Mental Health Tech Name Role Phone Trino Agee MD Primary Care Provider [phone] Reason for Visit * Reason Onset Date Comments Need appt after 11/18/23 10/12/2023 Encounter Details Date Type Department Care Team (Late st Contact Info) Description 10/12/[address] [facility] Neurology [address] [place] [address] Margo Giang Need appt after 11/18/23 Social History Tobacco Use Types Packs/Day Years [...] encounter Miscellaneous Notes * Telephone Encounter - Margo Giang - 10/12/2023 3:05 PM EST Patient had to cancel appt till AFTER 11/18/23. Dr. López does not have any availability. Carpet Layer put patient on WAITLIST. documented in this encounter Plan of Treatment Upcoming Encounters Date Type Department Care Team (Late st Contact Info) Description 05/30/2025 8:30 AM EDT Procedure visit [facility] [address] [place] [address], [address] [place] [address] Angel Cole MD [address] [place] [address] 06/06/2025 10:00 AM EDT Appointment [address], [address] [place] [address] 06/06/2025 10:30 AM EDT Office Visit [facility] [address] [place] [address], [address] [place] [address] Angel Cole MD [address] [place] [address] 06/27/2025 8:30 AM EDT Procedure visit [facility] [address] [place] [address], [address] [place] [address] Angel Cole MD [address] [place] [address] 07/02/2025 10:30 AM EDT Appointment [address], [address] [place] [address] 07/02/2025 11:00 AM EDT Office Visit [facility] [address] [place] [address], [address] [place] [address] Jovan Levy, FAMILY MEDICINE PHYSICIAN-FUGITIVE DETECTIVE [address] [place] [address] documented as of this encounter Visit Diagnoses Not on filedocumented in this encounter Additional Health Concerns Assessment Noted Time PHQ-9 Depression Total Score: 1 08/17/20 23 11:07 AM EST documented as of this encounter Care Teams Mental Health Tech Relationship Specialty Start Date End Date Trino Agee MD PCP - General 04/28/13 documented as of this encounter
--- OUTSIDE RECORDS SUMMARY | 2025-02-13 14:33 | XMS_ITS | Encounter Summary ---
Author Organization [facility] Address [address] [place] [address] Care Team Providers Care Manager Mass Name Role Phone Elizabeth Evans ACCOUNTS ADJUSTABLE CLERK Unavailable [phone] Shaikh JUAN DIEGO Villagran Primary Care Provider [phone] Shaikh JUAN DIEGO Villagran Unavailable [phone] Trino Agee MD Primary Care Provider [phone] Lula Alicia ACCOUNTS ADJUSTABLE CLERK Unavailable [phone] Encounter Details Date Type Department Care Team (Late st Contact Info) Description 04/15/2024 Clinisync Result Encounter [facility] External Department Unsolicited Shaikh Villagran MD [address] [place] [address] Social History Tobacco Use Types Packs/Day Years Used Date Smoking Tobacco: Never Passive Smoke Exposure: Never Alcohol Use Standard Drinks/Week Comments Never 0 (1 standard drink = 0.6 oz pur e alcohol) caffeine: none PHQ-2 Answer Date Recorded Patient Health Questionnaire-2 Score 0 04/11/2024 Comments Unknown Sex and Gender Information Value Date Recorded Sex Assigned at Not on file Legal Sex Female 7:03 PM EDT Gender Identity Not on file Sexual Orientation Not on file documented as of this encounter Plan of Treatment Upcoming Encounters Date Type Department Care Team (Late st Contact Info) Description 08/13/2025 2:20 PM EST Office Visit [facility] [address] [place] [address] Elizabeth Evans, ACCOUNTS ADJUSTABLE CLERK [address] [place] [address] 02/13/2026 5:00 PM EDT Office Visit [facility] [address] [place] [address] Elizabeth Evans, ACCOUNTS ADJUSTABLE CLERK [address] [place] [address] documented as of this encounter Procedures Procedure Name Priority Date/Time Associated Diagnosis Comments XR HIP LT MIN 2V 04/15/2024 7:16 AM EDT documented in this encounter Results * XR HIP LT MIN 2V (04/15/2024 7:16 AM EDT) Anatomical Region Laterality Modality Other 04/15/2024 7:16 AM EDT Narrative 04/15/2024 7:19 AM EDT The [address] [address] XRay Report Signed Patient: BERENICE NOLASCO MR#: [id number] : 1950 Acct:[id number] Age/Sex: 73 / F ADM Date: 04/14/24 Loc: RAD Attending Dr: Shaikh Tyshawn Rangel Ordering Physician: Shaikh Claire Villagran Date of Service: 04/14/24 Procedure(s): XR hip LT min 2V Accession Number(s): [id number] cc: Shaikh Claire Villagran The [address] [address] Patient Name: BERENICE NOLASCO MRN: [id number] date: 1950 Sex: F Assigned Patient Location: RAD Current Patient Location: Accession/Order Number: [id number] Exam Date: 04/14/2024 15:47 Report Date: 04/15/2024 07:16 At the request of: SHAIKH TYSHAWN Procedure: XR hip LT min 2V PROCEDURE: XR hip LT min 2V HISTORY: Left hip pain , chronic COMPARISON: XR hip left 05/07/2023 FINDINGS: BONES:Moderate narrowing of the hip joint space with large degenerative osteophytes along the articular margins of the femoral head and moderate size osteophyte along superior rim of acetabulum. SOFT TISSUES:No visible soft tissue swelling. EFFUSION:None visible. OTHER: Negative. XR/XR hip LT min 2V IMPRESSION: 1. Grossly stable moderate to marked degenerative changes of the left hip joint. Electronically authenticated by: VU FOX Date: 04/15/2024 07:16 Dictated By: Vu Fox M.D. Signed By: 04/15/2419 DD/ 5 TD/TT: Chucking Lathe Operator: Procedure Note Radiology, Radiologist, MD - 04/15/2024 [place] [address] XRay Report Signed Patient: BERENICE NOLASCO KMR#: [id number] : 1950Acct:[id number] Age/Sex: 73 / FADM Date: 04/14/24 Loc: [facility] Attending Dr: Shaikh Tyshawn Rangel Ordering Physician: Shaikh Claire Villagran Date of Service: 04/14/24 Procedure(s): XR hip LT min 2V Accession Number(s): [id number] cc: Shaikh Claire Villagran The [place] [address] Patient Name: BERENICE NOLASCO MRN: [id number] date: 1950 Sex: F Assigned Patient Location: [facility] Current Patient Location: Accession/Order Number: [id number] Exam Date: 04/14/2024 15:47 Report Date: 04/15/2024 07:16 At the request of: SHAIKH TYSHAWN Procedure: XR hip LT min 2V PROCEDURE: XR hip LT min 2V HISTORY: Left hip pain , chronic COMPARISON: XR hip left 05/07/2023 FINDINGS: BONES:Moderate narrowing of the hip joint space with large degenerative osteophytes along the articular margins of the femoral head and moderatesize osteophyte along superior rim of acetabulum. SOFT TISSUES:No visible soft tissue swelling. EFFUSION:None visible. OTHER: Negative. XR/XR hip LT min 2V IMPRESSION: 1. Grossly stable moderate to marked degenerative changes of the left hip joint. Electronically authenticated by: VU FOX Date: 04/15/2024 07:16 Dictated By: Vu Fox M.D. Signed By:04/15/24718 DD/ 5 TD/TT: Chucking Lathe Operator: us Shaikh Tyshawn [facility] Final Result documented in this encounter Visit Diagnoses Not on filedocumented in this encounter Care Teams Manager Mass Relationship Specialty Start Date End Date Shaikh Villagran MD [address] [place] [address] PCP - General Internal Medicine 11/29/23 07/10/24 Shaikh Villagran MD [address] [place] [address] PCP - Jason ACOSTA 05/14/24 09/12/24 Trino Agee MD [address] [place] [address] PCP - General Family Medicine 07/11/24 Elizabeth Evans NP [address] [place] [address] Nurse Practitioner Family Medicine 06/13/23 07/10/24 Lula Alicia NP [address] [place] [address] Nurse Practitioner Family Medicine 07/11/24 documented as of this encounter
--- OUTSIDE RECORDS SUMMARY | 2025-02-13 14:33 | XMS_ITS | Encounter Summary ---
Author Organization [facility] Address [address] [facility] [place] [address] Care Team Providers Care Civil Engineering Drafter Name Role Phone Elizabeth Evans LITHOGRAPH PRINTER Unavailable [phone] Shaikh JUAN DIEGO Villagran Primary Care Provider [phone] Shaikh JUAN DIEGO Villagran Primary Care Provider [phone] Shaikh JUAN DIEGO Villagran Unavailable [phone] Trino Agee MD Primary Care Provider [phone] Lula Alicia NP Unavailable [phone] Encounter Details Date Type Department Care Team (Late st Contact Info) Description 10/18/2023 Orders Only [facility] [address] [place] [address] Elizabeth Evans, LITHOGRAPH PRINTER [address] [place] [address] Social History Tobacco Use Types Packs/Day Years Used Date Smoking Tobacco: Never Alcohol Use Standard Drinks/Week Comments Never 0 (1 standard drink = 0.6 oz pur e alcohol) caffeine: none Comments Unknown Sex and Gender Information Value Date Recorded Sex Assigned at Not on file Legal Sex Female 7:03 PM EDT Gender Identity Not on file Sexual Orientation Not on file documented as of this encounter Plan of Treatment Upcoming Encounters Date Type Department Care Team (Late st Contact Info) Description 08/13/2025 2:20 PM EST Office Visit [facility] [address] [place] [address] Elizabeth Evans, MELINA [address] [place] [address] 02/13/2026 5:00 PM EDT Office Visit [facility] [address] [place] [address] Elizabeth Evans NP [address] [place] [address] documented as of this encounter Procedures Procedure Name Priority Date/Time Associated Diagnosis Comments MISCELLANEOUS LAB TEST Routine 06/23/2023 10:37 AM EDT documented in this encounter Results * - Miscellaneous Test (06/23/2023 10:37 AM EDT) Elizabeth Evans LITHOGRAPH PRINTER LAB BLOOD ORDERABLES Final Resu lt documented in this encounter Visit Diagnoses Not on filedocumented in this encounter Care Teams Civil Engineering Drafter Relationship Specialty Start Date End Date Shaikh Villagran MD [address] [place] [address] PCP - General Internal Medicine 09/02/23 11/28/23 Shaikh Villagran MD [address] [place] [address] PCP - General Internal Medicine 11/29/23 07/10/24 Shaikh Villagran MD [address] [place] [address] PCP - Jason ACOSTA 05/14/24 09/12/24 Trino Agee MD [address] [place] [address] PCP - General Family Medicine 07/11/24 Elizabeth Evans NP [address] [place] [address] Nurse Practitioner Family Medicine 06/13/23 07/10/24 Lula Alicia NP [address] [place] [address] Nurse Practitioner Family Medicine 07/11/24 documented as of this encounter
--- OUTSIDE RECORDS SUMMARY | 2025-02-13 14:33 | XMS_ITS | Encounter Summary ---
Author Organization [facility] Address [address] [place] [address] Care Team Providers Care Operational Risk Analyst Name Role Phone Elizabeth Evans SILK SOAKER Unavailable [phone] Shaikh JUAN DIEGO Villagran Primary Care Provider [phone] Shaikh JUAN DIEGO Villagran Unavailable [phone] Trino Agee MD Primary Care Provider [phone] Lula Alicia NP Unavailable [phone] Encounter Details Date Type Department Care Team (Late st Contact Info) Description 06/12/[address] [facility] [address] [place] [address] Lula Alicia NP Social History Tobacco Use Types Packs/Day Years [...] 08/13/2025 2:20 PM EST Office Visit [facility] [address] [place] [address] Elizabeth Evans NP [address] [place] [address] 02/13/2026 5:00 PM EDT Office Visit [facility] [address] [place] [address] Elizabeth Evans NP [address] [place] [address] documented as of this encounter Procedures Procedure Name Priority Date/Time Associated Diagnosis Comments SCANNED LABS Routine 06/12/2024 4:39 PM EDT documented in this encounter Results * SCANNED LABS (06/12/2024 4:39 PM EDT) Lula Alicia SILK SOAKER LAB CHG PERFORMABLES Fin al Result documented in this encounter Visit Diagnoses Not on filedocumented in this encounter Care Teams Operational Risk Analyst Relationship Specialty Start Date End Date Shaikh Villagran MD [address] [place] [address] PCP - General Internal Medicine 11/29/23 07/10/24 Shaikh Villagran MD [address] [place] [address] PCP - Jason ACOSTA 05/14/24 09/12/24 Trino Agee MD [address] [place] [address] PCP - General Family Medicine 07/11/24 Elizabeth Evans NP [address] [place] [address] Nurse Practitioner Family Medicine 06/13/23 07/10/24 Lula Alicia NP [address] [place] [address] Nurse Practitioner Family Medicine 07/11/24 documented as of this encounter
--- OUTSIDE RECORDS SUMMARY | 2025-02-13 14:33 | XMS_ITS | Encounter Summary ---
Author Organization [facility] Address [address] [place] [address] Care Team Providers Care Blueprint Maker Name Role Phone Elizabeth Evans CHAIRMAN AND CHIEF EXECUTIVE OFFICER Unavailable [phone] Shaikh JUAN DIEGO Villagran Primary Care Provider [phone] Shaikh JUAN DIEGO Villagran Unavailable [phone] Trino Agee MD Primary Care Provider [phone] Lula Alicia CHAIRMAN AND CHIEF EXECUTIVE OFFICER Unavailable [phone] Encounter Details Date Type Department Care Team (Late st Contact Info) Description 01/06/2024 Clinisync Result Encounter [facility] External Department Unsolicited Shaikh Villagran MD [address] [place] [address] Social History Tobacco Use Types Packs/Day Years Used Date Smoking Tobacco: Never Passive Smoke Exposure: Never Alcohol Use Standard Drinks/Week Comments Never 0 (1 standard drink = 0.6 oz pur e alcohol) caffeine: none PHQ-2 Answer Date Recorded Patient Health Questionnaire-2 Score 0 01/06/2024 Comments Unknown Sex and Gender Information Value Date Recorded Sex Assigned at Not on file Legal Sex Female 7:03 PM EDT Gender Identity Not on file Sexual Orientation Not on file documented as of this encounter Functional Status * Over the past 2 weeks, how often have you been bothered by any of the following problems? Question Answer Date of Assessment Author Little interest or pleasure in doing things Not at all 01/06/2024 10:05 AM EDT Jeannie Moe MA Feeling down, depressed, or hopeless Not at all 01/06/2024 10:05 AM EDT Jeannie Moe MA Patient Health Questionnaire -2 Score 0 01/06/2024 10:05 AM EDT Jeannie Moe MA documented as of this encounter Plan of Treatment Upcoming Encounters Date Type Department Care Team (Late st Contact Info) Description 08/13/2025 2:20 PM EST Office Visit [facility] [address] [place] [address] Elizabeth Evans, MELINA [address] [place] [address] 02/13/2026 5:00 PM EDT Office Visit [facility] [address] [place] [address] Elizabeth Evans, MELINA [address] [place] [address] documented as of this encounter Procedures Procedure Name Priority Date/Time Associated Diagnosis Comments XR CHEST 2V 01/06/2024 1:27 PM EDT TB URINE MICROSCOPIC ONLY Routine 01/06/2024 11:36 AM EDT TB UA (CLEAN/CATCH) MICROSCOPIC IF INDICATE Routine 01/06/2024 11:36 AM EDT documented in this encounter Results * XR CHEST 2V (01/06/2024 1:27 PM EDT) Anatomical Region Laterality Modality Other 01/06/2024 1:27 PM EDT Narrative 01/06/2024 1:29 PM EDT The [address] [address] XRay Report Signed Patient: BERENICE NOLASCO MR#: [id number] : 1950 Acct:[id number] Age/Sex: 73 / F ADM Date: 01/06/24 Loc: LAB Attending Dr: Shaikh Tyshawn Rangel Ordering Physician: Shaikh Claire Villagran Date of Service: 01/06/24 Procedure(s): XR chest 2V Accession Number(s): [id number] cc: Shaikh Claire Villagran The [place] [address] Patient Name: BERENICE NOLASCO MRN: [id number] date: 1950 Sex: F Assigned Patient Location: LAB Current Patient Location: LAB Accession/Order Number: [id number] Exam Date: 01/06/2024 11:55 Report Date: 01/06/2024 13:27 At the request of: SHAIKH TYSHAWN Procedure: XR chest 2V EXAM: XR chest 2V HISTORY: Preoperative Clearance Z01.818 COMPARISON: None. TECHNIQUE: PA and lateral views of the chest. FINDINGS: The cardiomediastinal silhouette is normal. No focal consolidation is identified. There is no pneumothorax. No pleural effusion is noted. The osseous structures are intact. XR/XR chest 2V IMPRESSION: No acute cardiopulmonary process. Suggestion of COPD. Electronically authenticated by: DIEUDONNE SCHAEFFER Date: 01/06/2024 13:27 Dictated By: Dieudonne Schaeffer M.D. Signed By: 01/06/24 1329 DD/ 1327 TD/TT: Head Rigger: Procedure Note Radiology, Radiologist, MD - 01/06/2024 [place] [address] XRay Report Signed Patient: BERENICE NOLASCO KMR#: [id number] : 1950Acct:[id number] Age/Sex: 73 / FADM Date: 01/06/24 Loc: LAB Attending Dr: Shaikh Tyshawn Rangel Ordering Physician: Shaikh Claire Villagran Date of Service: 01/06/24 Procedure(s): XR chest 2V Accession Number(s): [id number] cc: Shaikh Claire Villagran The [place] [address] Patient Name: BERENICE NOLASCO MRN: [facility]:[id number] date: 1950 Sex: F Assigned Patient Location: LAB Current Patient Location: LAB Accession/Order Number: [id number] Exam Date: 01/06/2024 11:55 Report Date: 01/06/2024 13:27 At the request of: SHAIKH TYSHAWN Procedure: XR chest 2V EXAM: XR chest 2V HISTORY: Preoperative Clearance Z01.818 COMPARISON: None. TECHNIQUE: PA and lateral views of the chest. FINDINGS: The cardiomediastinal silhouette is normal. No focal consolidation is identified. There is no pneumothorax. No pleural effusion is noted. The osseous structures are intact. XR/XR chest 2V IMPRESSION: No acute cardiopulmonary process. Suggestion of COPD. Electronically authenticated by: DIEUDONNE SCHAEFFER Date: 01/06/2024 13:27 Dictated By: Dieudonne Schaeffer M.D. Signed By:01/06/24 1329 DD/ 1327 TD/TT: Head Rigger: Shaikh Tyshawn [facility] Final Result * (ABNORMAL) TBH URINE MICROSCOPIC ONLY (01/06/2024 11:36 AM EDT) TBH WBC 5-10(A) NONE SEEN #/HPF TBH TBH RBC NONE SEEN 0 - 2 #/HPF TBH BACTERIA URINE TRACE(A) NONE SEEN #/HPF TBH MUCUS URINE NONE SEEN NONE SEEN TBH SQUAMOUS EPITHELIAL CELL URINE MODERATE(A ) NONE/RARE #/LPF TBH CRYSTALS SEEN? None Seen None Seen #/HPF TBH CAST SEEN? SEEN(A) NONE SEEN #/LPF TBH HYALINE CASTS URINE RARE TBH 01/06/2024 11:3 6 AM EDT 01/06/2024 11:41 AM EDT Narrative [facility] - 01/06/2024 3:45 PM EDT Shaikh Tyshawn [facility] Final Result Performing Organization Address City/[facility]/ZIP Co de Phone Number [facility] TB * (ABNORMAL) TBH UA (CLEAN/CATCH) MICROSCOPIC IF INDICATE (01/06/2024 11:36 AM EDT) COLOR URINE YELLOW YELLOW TBH CLARITY URINE CLEAR CLEAR TBH SPECIFIC GRAVITY URINE 1.015 1.005 - 1.025 TBH PH URINE 6.0 5.0 - 9.0 TBH PROTEIN URINE NEGATIVE NEG/TRACE mg/dL TBH GLUCOSE URINE UA NEGATIVE NEGATIVE mg/dL TBH BILIRUBIN URINE NEGATIVE NEGATIVE TBH KETONES URINE NEGATIVE NEGATIVE mg/dL TBH BLOOD URINE NEGATIVE NEGATIVE TBH NITRITE URINE NEGATIVE NEGATIVE TBH UROBILINOGEN URINE 0.2 0.2 - 1.0 EU/dL TBH LEUKOCYTE ESTERASE URINE TRACE(A) NEGATIVE TBH URINE MICROSCOPIC INDICATED YES TBH 01/06/2024 11:3 6 AM EDT 01/06/2024 11:41 AM EDT Narrative [facility] - 01/06/2024 3:45 PM EDT Shaikh Tyshawn [facility] Final Result Performing Organization Address [facility] de Phone Number [facility] TB documented in this encounter Visit Diagnoses Not on filedocumented in this encounter Care Teams Blueprint Maker Relationship Specialty Start Date End Date Shaikh Villagran MD [address] [place] [address] PCP - General Internal Medicine 11/29/23 07/10/24 Shaikh Villagran MD [address] [place] [address] PCP - Jason ACOSTA 05/14/24 09/12/24 Trino Agee MD [address] [place] [address] PCP - General Family Medicine 07/11/24 Elizabeth Evans NP [address] [place] [address] Nurse Practitioner Family Medicine 06/13/23 07/10/24 Lula Alicia NP [address] [place] [address] Nurse Practitioner Family Medicine 07/11/24 documented as of this encounter
--- OUTSIDE RECORDS SUMMARY | 2025-02-13 14:33 | XMS_ITS | Encounter Summary ---
Author Organization [facility] Address [address] [place] [address] Care Team Providers Care Order Puller Name Role Phone Elizabeth Evans TIRE BAGGER Unavailable [phone] Shaikh JUAN DIEGO Villagran Primary Care Provider [phone] Shaikh JUAN DIEGO Villagran Unavailable [phone] Trino Agee MD Primary Care Provider [phone] Lula Alicia TIRE BAGGER Unavailable [phone] Encounter Details Date Type Department Care Team (Late st Contact Info) Description 12/23/2023 Orders Only [facility] [address] [place] [address] Shaikh Villagran MD [address] [place] [address] Social History Tobacco Use Types Packs/Day Years Used Date Smoking Tobacco: Never Alcohol Use Standard Drinks/Week Comments Never 0 (1 standard drink = 0.6 oz pur e alcohol) caffeine: none PHQ-2 Answer Date Recorded Patient Health Questionnaire-2 Score 0 11/29/2023 Comments Unknown Sex and Gender Information Value Date Recorded Sex Assigned at Not on file Legal Sex Female 7:03 PM EDT Gender Identity Not on file Sexual Orientation Not on file documented as of this encounter Plan of Treatment Upcoming Encounters Date Type Department Care Team (Late st Contact Info) Description 08/13/2025 2:20 PM EST Office Visit [facility] [address] [place] [address] Elizabeth Evans, MELINA [address] [place] [address] 02/13/2026 5:00 PM EDT Office Visit [facility] [address] [place] [address] Elizabeth Evans, MELINA [address] [place] [address] documented as of this encounter Procedures Procedure Name Priority Date/Time Associated Diagnosis Comments SCANNED LABS Routine 12/23/2023 8:49 AM EDT SCANNED LABS Routine 12/23/2023 8:48 AM EDT documented in this encounter Results * SCANNED LABS (12/23/2023 8:49 AM EDT) us Shaikh Tyshawn [facility] CHG PERFORMABLES Final Resu lt * SCANNED LABS (12/23/2023 8:48 AM EDT) us Shaikh Tyshawn [facility] CHG PERFORMABLES Final Resu lt documented in this encounter Visit Diagnoses Not on filedocumented in this encounter Care Teams Order Puller Relationship Specialty Start Date End Date Shaikh Villagran MD [address] [place] [address] PCP - General Internal Medicine 11/29/23 07/10/24 Shaikh Villagran MD [address] [place] [address] PCP - Jason ACOSTA 05/14/24 09/12/24 Trino Agee MD [address] [place] [address] PCP - General Family Medicine 07/11/24 Elizabeth Evans NP [address] [place] [address] Nurse Practitioner Family Medicine 06/13/23 07/10/24 Lula Alicia NP [address] [place] [address] Nurse Practitioner Family Medicine 07/11/24 documented as of this encounter
--- OUTSIDE RECORDS SUMMARY | 2025-02-13 14:33 | XMS_ITS | Encounter Summary ---
Author Organization [facility] Address [address] [place] [address] Care Team Providers Care Telegraph Service Clerk Name Role Phone Trino Agee MD Primary Care Provider [phone] Lula Alicia PASTE THINNER Unavailable [phone] Encounter Details Date Type Department Care Team (Late Contact Info) Description 02/07/2025 Bamboo flowsheet [facility] [address] [place] [address] Elizabeth Evans NP [address] [place] [address] Social History Tobacco Use Types Packs/Day Years [...] Encounters Date Type Department Care Team (Late Contact Info) Description 08/13/2025 2:20 PM EST Office Visit [facility] [address] [place] [address] Elizabeth Evans NP [address] [place] [address] 02/13/2026 5:00 PM EDT Office Visit [facility] [address] [place] [address] Elizabeth Evans NP [address] [place] [address] documented as of this encounter Visit Diagnoses Not on filedocumented in this encounter Additional Health Concerns Assessment Noted Time PHQ-9 Depression Total Score: 4 02/08/20 25 2:26 PM EDT documented as of this encounter Care Teams Telegraph Service Clerk Relationship Specialty Start Date End Date Trino Agee MD [address] [place] [address] PCP - General Family Medicine 07/11/24 Lula Alicia NP [address] [place] [address] Nurse Practitioner Family Medicine 07/11/24 documented as of this encounter
--- OUTSIDE RECORDS SUMMARY | 2025-02-13 14:33 | XMS_ITS | Encounter Summary ---
Author Organization [facility] Address [address] [facility] [place] [address] Care Team Providers Care Mlt Name Role Phone Elizabeth Evans NP Unavailable [phone] Shaikh JUAN DIEGO Villagran Primary Care Provider [phone] Shaikh JUAN DIEGO Villagran Unavailable [phone] Trino Agee MD Primary Care Provider [phone] Lula Alicia NP Unavailable [phone] Encounter Details Date Type Department Care Team (Late st Contact Info) Description 03/16/2024 Clinisync Result Encounter [facility] External Department Unsolicited Provider, Generic External Data Social History Tobacco Use Types Packs/Day Years [...] 08/13/2025 2:20 PM EST Office Visit [facility] [address] [place] [address] Elizabeth Evans TOWEL SEWER [address] [place] [address] 02/13/2026 5:00 PM EDT Office Visit [facility] [address] [place] [address] Elizabeth Evans NP [address] [place] [address] documented as of this encounter Procedures Procedure Name Priority Date/Time Associated Diagnosis Comments XR HIP 2 OR 3 VW RIGHT 03/16/2024 5:35 AM EDT documented in this encounter Results * XR hip right 2 or 3 views (03/16/2024 5:35 AM EDT) Anatomical Region Laterality Modality Lower Extremities, Hip Right Radiograp hic Imaging 03/16/2024 5:35 AM EDT Narrative 03/16/2024 5:37 [place] [address] XRay Report Signed Patient: BERENICE NOLASCO MR#: [id number] : 1950 Acct:[id number] Age/Sex: 73 / F ADM Date: 03/15/24 Loc: RAD Attending Dr: Sarah Al NP Ordering Physician: Sarah Al NP Date of Service: 03/15/24 Procedure(s): XR hip RT min 2V Accession Number(s): [id number] cc: Shaikh Claire Villagran; Sarah Al NP [address] [address] Patient Name: BERENICE NOLASCO MRN: [id number] date: 1950 Sex: F Assigned Patient Location: RAD Current Patient Location: Accession/Order Number: [id number] Exam Date: 03/15/2024 09:44 Report Date: 03/16/2024 05:35 At the request of: SARAH AL Procedure: XR hip RT min 2V PROCEDURE: XR hip RT min 2V HISTORY: Right Hip Pain ; chronic COMPARISON: XR hips bilateral 01/13/2022 FINDINGS: BONES:Narrowing of the hip joint space; moderate narrowing medially and mild narrowing superiorly. Prominent periarticular degenerative osteophytes involving the femoral head and acetabulum. No fracture, articular surface irregularity, bone lesion. SOFT TISSUES:No visible soft tissue swelling. EFFUSION:None visible. OTHER: Negative. XR/XR hip RT min 2V IMPRESSION: 1. Moderate degenerative joint disease of the right hip. Electronically authenticated by: VU FOX Date: 03/16/2024 05:35 Dictated By: Vu Fox M.D. Signed By: 03/16/24 0537 DD/ 0535 TD/TT: Chart Writer: Procedure Note Radiology, Radiologist, MD - 03/16/2024 [place] [address] XRay Report Signed Patient: BERENICE NOLASCO KMR#: [id number] : 1950Acct:[id number] Age/Sex: 73 / FADM Date: 03/15/24 Loc: [facility] Attending Dr: Sarah Al NP Ordering Physician: Sarah Al NP Date of Service: 03/15/24 Procedure(s): XR hip RT min 2V Accession Number(s): [id number] cc: Shaikh Claire Villagran; Sarah Al NP [place] [address] Patient Name: BERENICE NOLASCO MRN: [id number] date: 1950 Sex: F Assigned Patient Location: [facility] Current Patient Location: Accession/Order Number: [id number] Exam Date: 03/15/2024 09:44 Report Date: 03/16/2024 05:35 At the request of: SARAH AL Procedure: XR hip RT min 2V PROCEDURE: XR hip RT min 2V HISTORY: Right Hip Pain ; chronic COMPARISON: XR hips bilateral 01/13/2022 FINDINGS: BONES:Narrowing of the hip joint space; moderate narrowing medially andmild narrowing superiorly. Prominent periarticular degenerative osteophytes involving the femoral head and acetabulum. No fracture, articular surface irregularity, bone lesion. SOFT TISSUES:No visible soft tissue swelling. EFFUSION:None visible. OTHER: Negative. XR/XR hip RT min 2V IMPRESSION: 1. Moderate degenerative joint disease of the right hip. Electronically authenticated by: VU FOX Date: 03/16/2024 05:35 Dictated By: Vu Fox M.D. Signed By:03/16/24 0537 DD/ 0535 TD/TT: Chart Writer: us Generic External Data Provider IMG XR PROCEDURES Final Result documented in this encounter Visit Diagnoses Not on filedocumented in this encounter Care Teams Mlt Relationship Specialty Start Date End Date Shaikh Villagran MD [address] [place] [address] PCP - General Internal Medicine 11/29/23 07/10/24 Shaikh Villagran MD [address] [place] [address] PCP - Jason ACOSTA 05/14/24 09/12/24 Trino Agee MD [address] [place] [address] PCP - General Family Medicine 07/11/24 Elizabeth Evans NP [address] [place] [address] Nurse Practitioner Family Medicine 06/13/23 07/10/24 Lula Alicia NP [address] [place] [address] Nurse Practitioner Family Medicine 07/11/24 documented as of this encounter
--- OUTSIDE RECORDS SUMMARY | 2025-02-13 14:33 | XMS_ITS | Encounter Summary ---
Author Organization [facility] Address [address] [facility] [place] [address] Care Team Providers Care Sole Skiver Name Role Phone Elizabeth Evans SATELLITE INSTALLER Unavailable [phone] Shaikh JUAN DIEGO Villagran Primary Care Provider [phone] Shaikh JUAN DIEGO Villagran Unavailable [phone] Trino Agee MD Primary Care Provider [phone] Lula Alicia SATELLITE INSTALLER Unavailable [phone] Encounter Details Date Type Department Care Team (Late st Contact Info) Description 01/06/2024 Orders Only [facility] [address] [place] [address] Shaikh Villagran MD [address] [place] [address] Social History Tobacco Use Types Packs/Day Years [...] 08/13/2025 2:20 PM EST Office Visit [facility] [address] [place] [address] Elizabeth Evans NP [address] [place] [address] 02/13/2026 5:00 PM EDT Office Visit [facility] [address] [place] [address] Elizabeth Evans NP [address] [place] [address] documented as of this encounter Procedures Procedure Name Priority Date/Time Associated Diagnosis Comments XR CHEST 2 VIEWS Routine 01/06/2024 1:36 PM EDT documented in this encounter Results * XR chest 2 views (01/06/2024 1:36 PM EDT) Anatomical Region Laterality Modality Chest Radiographic Ling ging Shaikh Tyshawn ADAMSON IMG XR PROCEDURES Final Result documented in this encounter Visit Diagnoses Not on filedocumented in this encounter Care Teams Sole Skiver Relationship Specialty Start Date End Date Shaikh Villagran MD [address] [place] [address] PCP - General Internal Medicine 11/29/23 07/10/24 Shaikh Villagran MD [address] [place] [address] PCP - Jason ACOSTA 05/14/24 09/12/24 Trino Agee MD [address] [place] [address] PCP - General Family Medicine 07/11/24 Elizabeth Evans NP [address] [place] [address] Nurse Practitioner Family Medicine 06/13/23 07/10/24 Lula Alicia NP [address] [place] [address] Nurse Practitioner Family Medicine 07/11/24 documented as of this encounter
--- OUTSIDE RECORDS SUMMARY | 2025-02-13 14:33 | XMS_ITS | Encounter Summary ---
Author Organization [facility] Address [address] [place] [address] Care Team Providers Care Customer Care Assistant Name Role Phone Trino Agee MD Primary Care Provider [phone] Lula Alicia MALLET AND DIE CUTTER Unavailable [phone] Encounter Details Date Type Department Care Team (Late st Contact Info) Description 02/12/2025 Telephone [facility] [address] [place] [address] Elizabeth Evans NP [address] [place] [address] Social History Tobacco Use Types Packs/Day Years [...] encounter Miscellaneous Notes * Telephone Encounter - ELVA JOHNSON - 02/12/2025 3:41 PM EDT Text Fountain Clerk Hi, this is Berenice Skinner. I need Elizabeth to send in order for me for the pelvic floor therapy in [place]. So that I can get that started the previous order . And so I need a new 1 so I can get started my numbers [phone]. Thank you very much. Have a good day. Bynicki. documented in this encounter Plan of Treatment Upcoming Encounters Date Type Department Care Team (Late st Contact Info) Description 08/13/2025 2:20 PM EST Office Visit [facility] [address] [place] [address] Elizabeth Evans, MELINA [address] [place] [address] 02/13/2026 5:00 PM EDT Office Visit [facility] [address] [place] [address] Elizabeth Evans, MELINA [address] [place] [address] documented as of this encounter Visit Diagnoses Not on filedocumented in this encounter Additional Health Concerns Assessment Noted Time PHQ-9 Depression Total Score: 4 02/08/20 25 2:26 PM EDT documented as of this encounter Care Teams Customer Care Assistant Relationship Specialty Start Date End Date Trino Agee MD [address] [place] [address] PCP - General Family Medicine 07/11/24 Lula Alicia NP [address] [place] [address] Nurse Practitioner Family Medicine 07/11/24 documented as of this encounter
--- OUTSIDE RECORDS SUMMARY | 2025-02-13 14:33 | XMS_ITS | Encounter Summary ---
Author Organization [facility] [employer] [facility] tem Address [id number] [address] [place] [address] Care Team Providers Care Cyber Threat Analyst Name Role Phone Trnio Agee MD Primary Care Provider [phone] Reason for Referral * Consultation (Routine) - Pending Review Specialty Diagnoses / Procedures Referred By Felix banerjee Referred To Contact Rheumatology Diagnoses RICARDO positive Seizure-like activity ([facility]) Jami López MD [address] [place] [address] [address] [place] [address] Phone: tel: fax: [facility] [address] [place] [address] Phone: tel: fax: Referral ID Status Reason Start Date Expiration Date Visits Requested Visits Authorized [id number] Pending Review Specialty Services Required 03/09/2024 03/09/2025 1 1 Reason for Visit * Reason Onset Date Comments blood work results 03/09/2024 Encounter Details Date Type Department Care Team (Late st Contact Info) Description 03/09/2024 Telephone [facility] [address] [place] [address] Amarilys Morgan blood work results Social History Tobacco Use Types Packs/Day Years [...] encounter Miscellaneous Notes * Telephone Encounter - Amarilys Morgan - 03/09/2024 1:15 PM EDT Images from the original note were not included. Patient called to check and see if Dr. López or a nurse could call her back with the results of the blood work that was done on 03 02 24. Please advise Contact Information [phone] ( * Telephone Encounter - Jami López MD - 03/09/2024 1:15 PM EDT Overall labs are ok. Has one autoimmune panel positive which is non specific but should see rheumatology - we can refer Tx * Telephone Encounter - Channing Hubbard - 03/09/2024 1:15 PM EDT RN contacted the patient and informed. The patient voiced understanding and asked to have a copy ofher lab results mailed. Results mailed to the patient at address listed in chart. documented in this encounter Plan of Treatment Upcoming Encounters Date Type Department Care Team ([facility] st Contact Info) Description 05/30/2025 8:30 AM EDT Procedure visit [facility] Care [address] [place] [address], [address] [place] [address] Angel Cole MD [address] [place] [address] 06/06/2025 10:00 AM EDT Appointment [address], [address] [place] [address] 06/06/2025 10:30 AM EDT Office Visit [facility] [address] [place] [address], [address] [place] [address] Angel Cole MD [address] [place] [address] 06/27/2025 8:30 AM EDT Procedure visit [facility] [address] [place] [address], [address] [place] [address], [place] [address] Angel Cole MD [address] [place] [address] 07/02/2025 10:30 AM EDT Appointment [address], [address] [place] [address] 07/02/2025 11:00 AM EDT Office Visit [facility] [address] [place] [address], [address] [place] [phone] Jovan Levy, MEDICAL OFFICE SCHEDULER-NOTEMAN [address] [place] [address] Scheduled Referrals Name Type Priority Associated Diagnoses Order Schedule [facility] - [place], [place] Outpatient Referral Routine RICARDO positive Seizure-like activity (CMS-HCC) 1 Occurrences starting 03/09/2024 until 03/09/2025 documented as of this encounter Visit Diagnoses Diagnosis RICARDO positive- Primary Seizure-like activity (CMS-HCC) documented in this encounter Additional Health Concerns Assessment Noted Time PHQ-9 Depression Total Score: 1 08/17/20 23 11:07 AM EST documented as of this encounter Care Teams Cyber Threat Analyst Relationship Specialty Start Date End Date Trino Agee MD PCP - General 04/28/13 documented as of this encounter
--- OUTSIDE RECORDS SUMMARY | 2025-02-13 14:33 | XMS_ITS | Clinical Summary ---
Author Organization [facility] tem Address [id number] [address] [place] [address] Care Team Providers Care Mock Up Builder Name Role Phone Trino Agee MD Primary Care Provider [phone] Allergies Active Allergy Reactions Criticality Noted Date Comments Oxycodone-Acetaminophen Rash,Swelling Low FACIAL SWELLING AND REDNESS Penicillin G Procaine Rash Low 09/02/2023 Penicillins 12/07/2016 Sulfamethoxazole-Trimeth oprim Other (See Comments) 09/02/2023 Sulfasalazine 12/07/2016 Medications esomeprazole (NexIUM) 40 mg capsule Take by mouth. Active simvastatin (ZOCOR) 20 mg tablet 0 09/01/2016 Active aspirin 81 mg Take by mouth. Active RANITIDINE HCL (ZANTAC ORAL) Take by mouth. Active citalopram (CeleXA) 20 mg tablet Take 1.5 tablets (30 mg total) by mouth in the morning. 11/27/2022 Active levothyroxine (SYNTHROID, LEVOTHROID) 50 MCG tablet Take 1 tablet (50 mcg total) by mouth in the morning. 10/16/2022 Active flaxseed oiL 1,000 mg capsule 1 capsule (1,000 mg total) in the morning. Active OZEMPIC 0.25 mg or 0.5 mg (2 mg/3 mL) pen injector 07/05/2023 Active fesoterodine (TOVIAZ) 8 mg tablet extended release 24 hr Take 1 tablet (8 mg total) by mouth in the morning. 10/29/2023 Active melatonin 1 mg tablet,chewable Chew and swallow. Active calcium carbonate/vitam in D3 (CALCIUM 600 WITH VITAMIN D3 ORAL) Take by mouth. Active yoqzgzja-rcw-ti rrous gluconate (CENTRUM) 9 mg iron/15 mL liquid Take 15 mL by mouth in the morning. Active famotidine (PEPCID) 20 mg tablet Take 1 tablet (20 mg total) by mouth in the morning and 1 tablet (20 mg total) before bedtime. Active multivitamin (THERAGRAN) tablet Take 1 tablet by mouth in the morning. 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); Venous insufficiency of both lower extremities; Phlebitis 12/21/2024 Telephone [facility] [address] [place] [address], [address] [place] [address] Angel Cole MD Procedure 12/20/2024 11:20 AM EDT Office Visit [facility] [address] [place] [address], [address] [place] [address] Angel Cole MD Venous insufficiency of both lower extremities (Primary Dx) 12/20/2024 9:16 AM EDT - 12/20/2024 11:59 PM EDT Hospital Encounter [address], [address] [place] [address] Venous insufficiency of both lower extremities Discharge Disposition: Home 12/20/2024 Travel 11/17/2024 Travel from Last 3 Months Family History Medical History Relation Name Comments Heart disease Father Stroke Father Arthritis Mother Heart disease Mother Stroke Mother Relation Name Status Comments Father Mother Alive Social History Tobacco Use Types Packs/Day Years [...] Sign Reading Time Taken Comments Blood Pressure 114/66 12/20/2024 10:30 AM EDT Pulse 62 12/20/2024 10:30 AM EDT Temperature - - Respiratory Rate 16 03/02/2024 2:15 PM EDT Oxygen Saturation - - Inhaled Oxygen Concentration - - Weight 91.2 kg (201 lb) 12/20/2024 10:30 AM EDT Height 167.6 cm (5' 6 ) 12/20/2024 10:30 AM EDT Body Mass Index 32.44 12/20/2024 10:30 AM EDT Plan of Treatment Upcoming Encounters Date Type Department Care Team (Late st Contact Info) Description 05/30/2025 8:30 AM EDT Procedure visit [facility] [address] [place] [address], [address] [place] [address] Angel Cole MD [address] [place] [address] 06/06/2025 10:00 AM EDT Appointment [address], [address] [place] [address] 06/06/2025 10:30 AM EDT Office Visit [facility] [address] [place] [address], [address] [place] [address] Angel Cole MD [address] [place] [address] 06/27/2025 8:30 AM EDT Procedure visit [facility] [address] [place] [address], [address] [place] [address] Angel Cole MD [address] [place] [address] 07/02/2025 10:30 AM EDT Appointment [address], [address] [place] [address] 07/02/2025 11:00 AM EDT Office Visit [facility] [address] [place] [address], [address] [place] [address] Jovan Levy, INCLUSION INTERNSHIP-LICENSE CLERK [address] [place] [address] Health Maintenance Due Date Last Done Comments Adult BMI Follow Up Plan 1968 Fall Risk Screening 2015 DTaP,Tdap and Td Vaccines (2 - Td or Tdap) 01/11/2023 01/11/2013 Zoster (Shingles) Vaccine (2 of 2) 09/01/2023 07/07/2023 COVID-19 Vaccine ( - 2023-2 5 season) 2024 08/05/2021, 12/10/2020, 11/18/2020 Depression Screening 08/17/2024 08/17/2023 Influenza Vaccine 05/14/2025 07/11/2024, , 06/12/2022, Additional history exists Adult BMI Screening 12/20/2025 12/20/2024 Tobacco Screening 12/20/2025 12/20/2024 Medical Devices Not on file Procedures Procedure Name Priority Date/Time Associated Diagnosis Comments VASC VENOUS DUPLEX INSUFFICIENCY LOWER BILATERAL Routine 12/20/2024 10:10 AM EDT Venous insufficiency of both lower extremities from Last 3 Months Results * Vas venous duplex insufficiency lwr bi (12/20/2024 10:10 AM EDT) Anatomical Region Laterality Modality Vascular Bilateral Ultrasound 12/20/2024 10:1 8 AM EDT Narrative 12/20/2024 12:08 PM EDT Right: Lower extremity deep veins are compressible with spontaneous phasic spectral Doppler waveforms; superficial veins are compressible without intraluminal content. Venous reflux time >1000 ms is noted in the common femoral, femoral, and popliteal veins. Saphenofemoral junction reflux >500 ms with multilevel great saphenous vein reflux. Small saphenous vein reflux time >500 ms in the mid posteromedial calf. No saphenopopliteal junction is noted. Left: Lower extremity deep veins are compressible with spontaneous phasic spectral Doppler waveforms; superficial veins are compressible without intraluminal content. Venous reflux time >1000 ms is noted in the common femoral and femoral veins. Saphenofemoral junction reflux >500 ms with multilevel great saphenous vein reflux. General: This examination was performed in the upright position. Conclusions: RIGHT:No evidence of deep or superficial vein thrombosis of the lower extremity.Femoropopliteal deep vein reflux.Saphenofemoral junction and great saphenous superficial vein reflux.Small saphenous, superficial vein reflux.LEFT:No evidence of deep or superficial vein thrombosis of the lower extremity.Femoral deep vein reflux.Saphenofemoral junction and great saphenous superficial vein reflux. Recommendations: Any questions prior to finalization, please call the reading physician during normal business hours at the phone number beside their name. Procedure Note Augusto Whitney MD - 12/20/2024 Right: Lower extremity deep veins are compressible with spontaneous phasicspectral Doppler waveforms; superficial veins are compressible withoutintraluminal content. Venous reflux time >1000 ms is noted in the commonfemoral, femoral, and popliteal veins. Saphenofemoral junction reflux >500 ms with multilevel greatsaphenous vein reflux. Small saphenous vein reflux time >500 ms in the midposteromedial calf. No saphenopopliteal junction is noted. Left: Lower extremity deep veins are compressible with spontaneous phasicspectral Doppler waveforms; superficial veins are compressible withoutintraluminal content. Venous reflux time >1000 ms is noted in the commonfemoral and femoral veins. Saphenofemoral junction reflux >500 ms with multilevel great saphenousvein reflux. General: This examination was performed in the upright position. Conclusions: RIGHT:No evidence of deep or superficial vein thrombosis ofthe lower extremity.Femoropopliteal deep vein reflux.Saphenofemoraljunction and great saphenous superficial vein reflux.Small saphenous,superficial vein reflux.LEFT:No evidence of deep or superficial vein thrombosis of the lower extremity.Femoral deepvein reflux.Saphenofemoral junction and great saphenous superficial veinreflux. Recommendations: Any questions prior to finalization, please call thereading physician during normal business hours at the phone number besidetheir name. us Angel Cole MD CV VASCULAR ORDERABLES Final Re sult from Last 3 Months Insurance [employer] [facility] [employer] Care Teams Mock Up Builder Relationship Specialty Start Date End Date Trino Agee MD PCP - General 04/28/13
--- OUTSIDE RECORDS SUMMARY | 2025-02-13 14:33 | XMS_ITS | Clinical Summary ---
Author Organization [employer] Address [address] [place] [address] Care Team Providers Care Clinical Services Professional Name Role Phone Shaikh Delia Villagran MD Primary Care Provider Allergies Active Allergy Reactions Criticality Noted Date Comments Penicillins Itching High 09/16/2012 Other reaction(s): Other Sulfa Antibiotics Itching High 09/16/2012 Sulfasalazine Itching High 12/07/2016 Medications citalopram 20 MG tablet Take 1 tablet by mouth daily. Active faMOTIdine 20 MG tablet Take 1 tablet by mouth at bedtime. Active Flaxseed, Linseed, (Flax Seed Oil) 1000 MG capsule 1 capsule daily. Active levothyroxine 50 MCG tablet daily every morning. Active simvastatin 20 MG tablet simvastatin 20 mg tablet Take 1 tablet by mouth at bedtime Active trospium XR 60 MG Cap SR 24HR trospium ER 60 mg capsule,extende d release 24 hr take 1 capsule by mouth every morning Active esomeprazole [address] capsule Take 1 capsule by mouth daily every morning. 06/09/20 Active CALCIUM PO Take by mouth daily. Active MELATONIN PO Take by mouth daily. Active multivitamin tablet Take 1 tablet by mouth daily. Active COLLAGEN PO Take by mouth. Act vera ibuprofen 400 MG tablet Take 1 tablet by mouth every 6 hours as needed for Mild Pain. Active oxyCODONE-acetamin ophen 5-325 MG per tabletIndications: S/P breast reconstruction Take 1 tablet by mouth every 6 hours as needed for Moderate Pain (Use ONLY as needed for pain) for up to 3 days. 10 tablet 06/30/20 Active Active Problems Problem Noted Date Diagnosed Date S/P breast reconstruction 10/21/2022 Right-sided chest pain 09/15/2022 Obesity: body mass index of 35.0-39.9 06/16/2022 Anxiety 05/20/2022 Chest pain 05/20/2022 Personal history of malignant neoplasm of breast 05/20/2022 Acquired absence of right breast and nipple 03/2022 Tear of medial meniscus of knee 02/27/2020 Hyperlipidemia 10/23/2013 Depressive disorder 11/03/2012 Gastroesophageal reflux disease 11/03/2012 Generalized osteoarthritis 11/03/2012 Primary malignant neoplasm of female breast 10/15 Family History Medical History Relation Name Comments Clotting Disorder Mother PE Relation Name Status Comments Mother Social History Tobacco Use Types Packs/Day Years Used Date Smoking Tobacco: Never Smokeless Tobacco: Never Tobacco Cessation:Counseling Given: Not Answered Alcohol Use Standard Drinks/Week Comments Yes 0 (1 standard drink = 0.6 oz pur e alcohol) SELDOM Comments No Sex and Gender Information Value Date Recorded Sex Assigned at Not on file Legal Sex Female 3:25 PM EDT Gender Identity Not on file Sexual Orientation Not on file Last Filed Vital Signs Vital Sign Reading Time Taken Comments Blood Pressure 143/83 11/18/2022 2:58 PM EST Pulse 78 11/18/2022 2:58 PM EST Temperature 36.1 C (97 F) 11/18/2022 2:58 PM EST Respiratory Rate 18 07/09/2022 4:55 PM EDT Oxygen Saturation 97% 07/09/2022 4:55 PM EDT Inhaled Oxygen Concentration - - Weight 100.7 kg (222 lb) 09/23/2022 2:36 PM EST Height 167.6 cm (5' 6 ) 11/18/2022 2:58 PM EST Body Mass Index 35.83 09/23/2022 2:36 PM EST Plan of Treatment Health Maintenance Due Date Last Done Comments DEXA SCAN DISCUSSION 1950 HEPATITIS C VIRUS SCREENING 1950 TSH 1950 CERVICAL CANCER SCREENING DISCUSSION 1971 LIPID SCREENING 1990 COLORECTAL CANCER SCREENING DISCUSSION 1995 ZOSTER (SHINGLES) VACCINE (1 of 2) 2000 TETANUS 01/11/2023 01/11/2013 MAMMOGRAM LEFT 04/06/2023 04/06/2022 COVID-19 VACCINE (4 - 2023-2 5 season) 2024 08/05/2021, 12/10/2020, 11/18/2020 RSV VACCINE (1 - 1-dose 75+ series) 2025 INFLUENZA VACCINE (Season Ended) 2025 06/12/2022, 08/05/2021, 06/24/2020, Additional history exists TDAP (ADULT) Completed 01/11/2013 HEP B VACCINE Completed 07/28/2013, 0602/2013, 01/11/2013 PNEUMOCOCCAL VACCINE SERIES Completed 07/08/2019, 0 06/03/2018 MAMMOGRAM SCREENING DISCUSSION Discontinued 04/06/2022 Medical Devices Implanted Type Area Renal Dialysis Technician Device Identifier Shelf Expiration Date Model / Serial / Lot [place] Smooth Round Spectrum Saline Breast Implant Implanted:Qty: 1 on 07/09/2022 by Yari Suazo MD at [facility] LOC Right: Breast MENTOR 02/28/2026 [id number] / [id number] / [id number] Procedures Procedure Name Priority Date/Time Associated Diagnosis Comments MAMMOGRAPHY (OUTSIDE) Routine 04/06/2022 from Last 3 Months or Most Recently Relevant to Health Maintenance Results * MAMMOGRAPHY (OUTSIDE) (04/06/2022) [facility] Provider BREAST IMAGING Final Result from Last 3 Months or Most Recently Relevant to Health Maintenance Insurance [email or web address] Care Teams Clinical Services Professional Relationship Specialty Start Date End Date Shaikh Delia Villagran MD PCP - General Internal Medicine 05/20/22
--- OUTSIDE RECORDS SUMMARY | 2025-02-13 14:33 | XMS_ITS | Encounter Summary ---
Author Organization [facility] Address [address] [facility] [place] [address] Care Team Providers Care Tool Crib Supervisor Name Role Phone Elizabeth Evans NP Unavailable [phone] Shaikh JUAN DIEGO Villagran Primary Care Provider [phone] Shaikh JUAN DIEGO Villagran Unavailable [phone] Trino Agee MD Primary Care Provider [phone] Lula Smith NP Unavailable [phone] Encounter Details Date Type Department Care Team (Late st Contact Info) Description 05/17/2024 Clinisync Result Encounter [facility] External Department Unsolicited [...] [facility] [address] [place] [address] Elizabeth Evans MAINTENANCE PARTS TECHNICIAN [address] [place] [address] 02/13/2026 5:00 PM EDT Office Visit [facility] [address] [place] [address] Elizabeth Evans NP [address] [place] [address] documented as of this encounter Procedures Procedure Name Priority Date/Time Associated Diagnosis Comments MR LUMBAR SPINE WO CON 05/17/2024 4:29 PM EDT documented in this encounter Results * MR LUMBAR SPINE WO CON (05/17/2024 4:29 PM EDT) Anatomical Region Laterality Modality Other 05/17/2024 4:29 PM EDT Narrative 05/17/2024 4:32 [place] [address] Magnetic Resonance Report Signed Patient: BERENICE NOLASCO MR#: [id number] : 1950 Acct:[id number] Age/Sex: 74 / F ADM Date: 05/17/24 Loc: MRI Attending Dr: Sarah Al NP Ordering Physician: Sarah Al NP Date of Service: 05/17/24 Procedure(s): MR lumbar spine wo con Accession Number(s): [id number] cc: TAMIKA SMITH Anna NP [place] [id number] Patient Name: BERENICE NOLASCO MRN: [id number] date: 1950 Sex: F Assigned Patient Location: MRI Current Patient Location: MRI Accession/Order Number: [id number] Exam Date: 05/17/2024 12:50 Report Date: 05/17/2024 16:29 At the request of: SARAH AL Procedure: MR lumbar spine wo con EXAM: MRI of the lumbar spine without IV gadolinium contrast. REASON FOR EXAM: Lumbar stenosis COMPARISON: None FINDINGS: No lumbar spine fractures, acute malalignment or acute abnormal marrow signal. No spinal canal mass, hematoma or fluid collection. Posterior disc protrusions at the L1-L2, L2-L3, L3-L4 and L4-5 levels. Degenerative changes throughout the lumbar spine with multilevel disc space narrowing. Mild L2-L3 and L3-L4 spinal canal stenoses. No other substantial spinal canal stenoses. Mild right L2-L3, and L4-5 neural foraminal stenoses. Mild left L2-L3 neural foraminal stenosis. Moderate left L4-5 neural foraminal stenosis. No other substantial neural foraminal stenoses. Remainder unremarkable. MR/MR lumbar spine wo con IMPRESSION: 1. No acute lumbar spine abnormalities. 2. No moderate or high-grade spinal canal stenoses. 3. Moderate left L4-5 neural foraminal stenosis. Electronically authenticated by: RICK TELLEZ Date: 05/17/2024 16:29 Dictated By: Rick Tellez M.D. Signed By: 05/17/24 1632 DD/ 1629 TD/TT: Pacs Administrator: Procedure Note Radiology, Radiologist, MD - 05/17/2024 [place] [address] Magnetic Resonance Report Signed Patient: BERENICE NOLASCO KMR#: [id number] : 1950Acct:[id number] Age/Sex: 74 / FADM Date: 05/17/24 Loc: MRI Attending Dr: Sarah Al NP Ordering Physician: Sarah Al NP Date of Service: 05/17/24 Procedure(s): MR lumbar spine wo con Accession Number(s): [id number] cc: TAMIKA SMITH Anna NP The [address] [address] Patient Name: BERENICE NOLASCO MRN: [id number] date: 1950 Sex: F Assigned Patient Location: MRI Current Patient Location: MRI Accession/Order Number: [id number] Exam Date: 05/17/2024 12:50 Report Date: 05/17/2024 16:29 At the request of: SARAH AL Procedure: MR lumbar spine wo con EXAM: MRI of the lumbar spine without IV gadolinium contrast. REASON FOR EXAM: Lumbar stenosis COMPARISON: None FINDINGS: No lumbar spine fractures, acute malalignment or acute abnormal marrowsignal. No spinal canal mass, hematoma or fluid collection. Posterior disc protrusions at the L1-L2, L2-L3, L3-L4 and L4-5 levels. Degenerative changes throughout the lumbar spine with multilevel discspace narrowing. Mild L2-L3 and L3-L4 spinal canal stenoses. No other substantial spinalcanal stenoses. Mild right L2-L3, and L4-5 neural foraminal stenoses. Mild left L2-U7zjxhwi foraminal stenosis. Moderate left L4-5 neural foraminal stenosis. No other substantial neural foraminal stenoses. Remainder unremarkable. MR/MR lumbar spine wo con IMPRESSION: 1. No acute lumbar spine abnormalities. 2. No moderate or high-grade spinal canal stenoses. 3. Moderate left L4-5 neural foraminal stenosis. Electronically authenticated by: RICK TELLEZ Date: 05/17/2024 16:29 Dictated By: Rick Tellez M.D. Signed By:05/17/24 1632 DD/ 1629 TD/TT: Pacs Administrator: Generic External Data Provider [facility] Final Result documented in this encounter Visit Diagnoses Not on filedocumented in this encounter Care Teams Tool Crib Supervisor Relationship Specialty Start Date End Date Shaikh Villagran MD [address] [place] [address] PCP - General Internal Medicine 11/29/23 07/10/24 Shaikh Villagran MD [address] [place] [address] PCP - Jason ACOSTA 05/14/24 09/12/24 Trino Agee MD [address] [place] [address] PCP - General Family Medicine 07/11/24 Elizabeth Evans NP [address] [place] [address] Nurse Practitioner Family Medicine 06/13/23 07/10/24 Lula Smith NP [address] [place] [address] Nurse Practitioner Family Medicine 07/11/24 documented as of this encounter
--- OUTSIDE RECORDS SUMMARY | 2025-02-13 14:33 | XMS_ITS | Encounter Summary ---
Author Organization [facility] Address [address] [place] [address] Care Team Providers Care Rubberizing Mechanic Name Role Phone Elizabeth Evans SLIVER CUTTER Unavailable [phone] Shaikh JUAN DIEGO Villagran Primary Care Provider [phone] Shaikh JUAN DIEGO Villagran Unavailable [phone] Trino Agee MD Primary Care Provider [phone] Lula Alicia SLIVER CUTTER Unavailable [phone] Encounter Details Date Type Department Care Team (Late st Contact Info) Description 01/06/2024 Clinisync Result Encounter [facility] External Department Unsolicited Shaikh Villagran MD [address] [place] [address] Social History Tobacco Use Types Packs/Day Years [...] [facility] [address] [place] [address] Elizabeth Evans, MELINA [address] [place] [address] 02/13/2026 5:00 PM EDT Office Visit [facility] [address] [place] [address] Elizabeth Evans, MELINA [address] [place] [address] documented as of this encounter Procedures Procedure Name Priority Date/Time Associated Diagnosis Comments ECG 12-LEAD 01/06/2024 11:30 AM EDT documented in this encounter Results * ECG 12-LEAD (01/06/2024 11:30 AM EDT) Anatomical Region Laterality Modality Other 01/06/2024 11:3 0 AM EDT Narrative 01/07/2024 6:52 AM EDT The [address] [address] Electrocardiograph Report Signed Patient: BERENICE NOLASCO MR#: [id number] : 1950 Acct:[id number] Age/Sex: 73 / F ADM Date: 01/06/24 Loc: LAB Attending Dr: Shaikh Tyshawn Rangel Ordering Physician: Shaikh Claire Villagran Date of Service: 01/06/24 Procedure(s): ECG 12 lead Accession Number(s): [id number] cc: The [facility] Test Date: 2024-01-06 Pat Name: BERENICE NOLASCO Department: Room: - Gender: Female 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 Signed By: 01/07/2465101/07/24651 DD/ 1130 TD/TT: Office Asst: Procedure Note Radiology, Radiologist, - 01/07/2024 [place] [address] Electrocardiograph Report Signed Patient: BERENICE NOLASCO KMR#: [id number] : 1950Acct:[id number] Age/Sex: 73 / FADM Date: 01/06/24 Loc: LAB Attending Dr: Shaikh Tyshawn Rangel Ordering Physician: Shaikh Claire Villagran Date of Service: 01/06/24 Procedure(s): ECG 12 lead Accession Number(s): [id number] cc: [facility] Test Date: 2024-01-06 Pat Name: BERENICE NOLASCO Department: Room: - Gender: Female Leather Currier: : 1950 Requested By: SHAIKH TYSHAWN Order Number: [id number] Reading MD: BROCK ADAMS Measurements Intervals [place] Rate: 68 P: 62 [place]: 152 QRS: 63 QRSD: 85 T: 74 QT: 425 QTc: 453 Interpretive Statements SINUS RHYTHM Compared to ECG 06/28/2023 14:59:04 No significant changes Electronically Signed On 01-07-2024 6:52:24 EDT by BROCK ADAMS Dictated By: Brock AdamsOPiero Signed By:01/07/2452 01/07/24 0652 DD/ 1130 TD/TT: Office Asst: Shaikh Tyshawn ADAMSON [facility] Final Result documented in this encounter Visit Diagnoses Not on filedocumented in this encounter Care Teams Rubberizing Mechanic Relationship Specialty Start Date End Date Shaikh Villagran MD [address] [place] [address] PCP - General Internal Medicine 11/29/23 07/10/24 Shaikh Villagran MD [address] [place] [address] PCP - Jason ACOSTA 05/14/24 09/12/24 Trino Agee MD [address] [place] [address] PCP - General Family Medicine 07/11/24 Elizabeth Evans NP [address] [place] [address] Nurse Practitioner Family Medicine 06/13/23 07/10/24 Lula Alicia NP [address] [place] [address] Nurse Practitioner Family Medicine 07/11/24 documented as of this encounter
--- OUTSIDE RECORDS SUMMARY | 2025-02-13 14:33 | XMS_ITS | Clinical Summary ---
Author Organization [facility] Address [address] [place] [address] Care Team Providers Care Online Marketing Specialist Name Role Phone Trino Agee MD Primary Care Provider [phone] Lula Alicia PROFESSIONAL BUILDER Unavailable Allergies Active Allergy Reactions Criticality Noted Date Comments Penicillin G Procaine Rash Low 09/02/2023 Oxycodone-Acetaminophen Swelling 04/11/2024 FACIAL SWELLING AND REDNESS Sulfamethoxazole-Trimethopr im Other 09/02/2023 Medications aspirin (ASPIRIN LOW DOSE) 81 MG EC tablet Take 81 mg by mouth 1 (one) time each day at the same time Active calcium citrate 600 mg and vitamin D3 (Citrical & Minerals + Vit D) 600-200 MG-UNIT tablet Take 1 tablet by mouth in the morning. Active Multiple Vitamins-Minerals (Multivitamin Women 50+) tablet Take 1 tablet by mouth in the morning. Active semaglutide (Ozempic, 0.25 or 0.5 MG/DOSE,) 2 MG/1.5ML solution pen-injector Inject 0.25 mg under the skin 1 (one) time per week Active fesoterodine ER (Toviaz) 8 MG 24 hr tabletIndications: Urinary Frequency Take 8 mg by mouth Daily Do not crush, chew, or split. Active levothyroxine (Synthroid, Levoxyl) 50 MCG tabletIndications: Hypothyroidism, unspecified type (CMS/HCC) Take 1 tablet (50 mcg) by mouth Daily 90 tablet 1 5 04/09/20 25 Active citalopram (CeleXA) 20 MG tabletIndications: Recurrent major depressive disorder, in full remission (CMS/HCC) Take 1.5 tablets (30 mg) by mouth Daily 135 tablet 1 5 04/09/20 25 Active esomeprazole (NexIUM) [address] capsuleIndications :Gastroesophageal reflux disease without esophagitis Take 1 capsule (40 mg) by mouth Daily 90 capsule 5 08/05/20 25 Active simvastatin (Zocor) 20 MG tabletIndications: Hyperlipidemia, unspecified hyperlipidemia type (CMS/HCC) Take 1 tablet (20 mg) by mouth at bedtime 90 tablet 5 05/07/20 25 Active esomeprazole (NexIUM) [address] capsuleIndications :Gastroesophageal reflux disease without esophagitis Take 1 capsule (40 mg) by mouth Daily 90 capsule 1 4 02/07/20 25 Discontin ued(Reord er) simvastatin (Zocor) 20 MG tabletIndications: Hyperlipidemia, unspecified hyperlipidemia type (CMS/HCC) Take 1 tablet (20 mg) by mouth at bedtime 90 tablet 5 02/07/20 25 Discontin ued(Reord er) azithromycin (Zithromax) 250 MG tabletIndications: Acute non-recurrent sinusitis of other sinus Day #1: 2 pills, Day #2-#5: 1 pill daily 6 tablet 5 02/08/20 25 Discontin ued(Thera py completed ) Active Problems Problem Noted Date Diagnosed Date Encounter for subsequent [facility] wellness visit (AWV) in Medicare patient 02/07/2025 Assessment & Plan (02/07/2025 7:03 AM EDT): Reviewed Ht/Wt/BMI Recommend eye exam yearly Recommend dental exams twice a year Balance work/leisure activities Exercises is recommended most days of the week (appropriate as chronic conditions allow) Follow up yearly and prn Other acute sinusitis 12/21/2024 Assessment & Plan (12/21/2024 4:17 PM EDT): Finish atb, fluids, rest Fu if not better Class 1 obesity due to exces s calories without serious comorbidity with body mass index (BMI) of 31.0 to 31.9 in adult 12/21/2024 Screening for colon cancer 07/11/2024 Left hip pain 04/11/2024 Assessment & Plan (07/11/2024 2:52 PM EDT): Left hip pain, interfering with sleep. She also has left sided low back pain and has been seeing pain clinic at [facility], feels symptoms are currently well controlled. Continue current regimen. Assessment & Plan (04/11/2024 4:28 PM EDT): Left hip pain, interfering with sleep. She also has left sided low back pain and has been seeing pain clinic at [facility] with no relief despite multiple nerve blocks. XR Ordered. Trial of voltaren gel. Will decide on orthopedic referral based on XR. Recurrent major depressive disorder, in full rem ission 04/11/2024 Assessment & Plan (02/07/2025 7:02 AM EDT): Current med: celexa Assessment & Plan (04/11/2024 4:27 PM EDT): Stable mood. Doing well with Citalopram Recent urinary tract infection 01/06/2024 Assessment & Plan (01/06/2024 10:24 AM EDT): Recent UTI sec to E coli. Has no urinary complaints of symptoms. Will check UA to make sure no pyuria. CPAP (continuous positive airway pressure) chuy núñez 01/06/2024 NARA (obstructive sleep apnea) 11/29/2023 Assessment & Plan (02/07/2025 3:03 PM EDT): You have a diagnosis of obstructive sleep [...] supply Doctor that manages your NARA: Karina Assessment & Plan (07/11/2024 2:53 PM EDT): [facility]. [facility]. Wears CPAP nightly. Feels sleep apnea is well controlled. Assessment & Plan (04/11/2024 4:26 PM EDT): Seen by Sleep Clinic, has a new CPAP, working well for her. Compliant with it Assessment & Plan (11/29/2023 4:33 PM EDT): Hx of NARA, CPAP machines needs to be replaced. Her last sleep study was over 10 years ago. Will refer to [facility] Sleep clinic. Hypothyroidism 11/29/2023 Assessment & Plan (02/07/2025 7:03 AM EDT): On levothyroxine Check labs yearly and prn dose change or changes in sxs Assessment & Plan (07/11/2024 3:58 PM EDT): Currently taking Levothyroxine 50mcg. Continue current regimen. Assessment & Plan (04/11/2024 4:26 PM EDT): On levothyroxine 50 mcg. C/w same Assessment & Plan (11/29/2023 4:34 PM EDT): On levothyroxine 50 mcg. Check TSH Preoperative clearance 11/29/2023 Assessment & Plan (01/10/2024 12:56 PM EDT): Patient is here for pre operative clearance. She has no known CAD, CHF. She is supposed to have breast reconstruction under [facility] 06/04 no sig valvular pathology, normal LVEF. 06/05 - normal carotid US No symptoms concerning for underlying CAD, CHF At low risk of MACE and should be ok to proceed with surgery. Recent labs 12/01/23 - reviewed and discussed. No clinically relevant or significant abnormality on labs. EKG, CXR - No sig abnormality. Assessment & Plan (11/29/2023 4:38 PM EDT): Patient is here for pre operative clearance. She has no known CAD, CHF. She is supposed to have breast reconstruction under [facility] 06/04 no sig valvular pathology, normal LVEF. 06/05 - normal carotid US No symptoms concerning for underlying CAD, CHF At low risk of MACE and should be ok to proceed with surgery. Ordered pre op testing, if within normal limits, will fax clearance note to patient's surgeon Gastroesophageal reflux disease 09/02/2023 Assessment & Plan (02/07/2025 7:01 AM EDT): Recommendations: freq small meals, nothing to eat or drink at least 2 hours prior to bed, limit caffeine, alcohol, as well as spicy foods Meds to limit or avoid if possible: NSAIDS Elevate HOB if possible Current med: PPI Assessment & Plan (07/11/2024 3:59 PM EDT): Currently taking Nexium 40mg. Feels symptoms are well controlled. Continue current regimen. Assessment & Plan (04/11/2024 4:26 PM EDT): Uses nexium as needed. Tinnitus 09/02/2023 Venous insufficiency of both lower extremities 0 01/06/2023 S/P breast reconstruction 10/21/2022 Acquired absence of right breast and nipple 03/2022 Personal history of malignant neoplasm of breast 05/20/2022 Tear of medial meniscus of knee 02/27/2020 Hyperlipidemia 10/23/2013 Assessment & Plan (02/07/2025 7:02 AM EDT): On statin therapy Check labs yearly and prn dose changes Assessment & Plan (07/11/2024 3:58 PM EDT): Currently taking Simvastatin 20mg Denies any myalgias. Check Lipid Panel today. Continue current regimen. Assessment & Plan (04/11/2024 4:26 PM EDT): On simvastatin, cw same Assessment & Plan (11/29/2023 4:33 PM EDT): On simvastatin, check Lipid panel Depressive disorder 11/03/2012 Generalized osteoarthritis 11/03/2012 Overview (11/29/2023): R INDEX FINGER AND L [facility] JOINT Primary malignant neoplasm of female breast 10/15 Assessment & Plan (02/07/2025 7:02 AM EDT): In the past Encounters Date Type Department Care Team Description 02/12/2025 Telephone [facility] [address] [place] [address] Elizabeth Evans NP 02/07/2025 2:00 PM EDT Office Visit [facility] [address] [place] [address] Elizabeth Evans NP Encounter for subsequent annual wellness visit (AWV) in Medicare patient (Primary Dx); NARA (obstructive sleep apnea); Gastroesophageal reflux disease without esophagitis; Mixed hyperlipidemia (CMS/HCC); Primary malignant neoplasm of female breast ([facility]/HCC); Recurrent major depressive disorder, in full remission ([facility]/HCC); Hypothyroidism, unspecified type (CMS/HCC) 02/07/2025 Bamboo flowsheet [facility] [address] [place] [address] Elizabeth Evans NP 02/06/2025 Refill [facility] [address] [place] [address] Trino Agee MD Gastroesophageal reflux disease without esophagitis; Hyperlipidemia, unspecified hyperlipidemia type (CMS/HCC) 01/26/2025 Abstract [facility] [address] [place] [address] Trino Agee MD 12/21/2024 3:20 PM EDT Office Visit [facility] [address] [place] [address] Elizabeth Evans NP Acute non-recurrent sinusitis of other sinus (Primary Dx); Class 1 obesity due to excess calories without serious comorbidity with body mass index (BMI) of 31.0 to 31.9 in adult 12/21/[address] [facility] [address] [place] [address] Elizabeth Evans NP from Last 3 Months Immunizations Immunization Administration Dates Next Due Hep A / Hep B 07/28/2013,02/16/2013,01/11/2013 Influenza, High Dose Seasona l, Preservative Free 07/11/2024,06/24/2020,06/15/2016 Influenza, High-dose Seasona l, Quadrivalent, Preservative Free 06/12/2022 Influenza, Seasonal, Quadriv alent, Adjuvanted 07/07/2023,08/05/2021 Influenza, injectable, quadr ivalent, preservative free 05/21/2015 Influenza, trivalent, adjuvanted 07/08/2019,05/15,06/25/2017 Pneumococcal Conjugate PCV 13 06/03/2018 Pneumococcal Polysaccharide PPSV23 07/08/2019 Tdap 01/11/2013 Typhoid, ViCPs 02/16/2013 Zoster, Recombinant 07/07/2023 Family History Medical History Relation Name Comments Heart disease Father Hypertension Father Cancer Maternal Grandfather Heart disease Mother Stroke Mother Relation Name Status Comments Father Maternal Grandfather Mother Alive Social History Tobacco Use Types Packs/Day Years Used Date Smoking Tobacco: Never Passive Smoke Exposure: Never Tobacco Cessation:Counseling Given: Not Answered Alcohol Use Standard Drinks/Week Comments Never 0 [...] (204 lb) 02/07/2025 2:23 PM EDT Height 167.6 cm (5' 6 ) 12/21/2024 3:46 PM EDT Body Mass Index 32.93 12/21/2024 3:46 PM EDT Plan of Treatment Upcoming Encounters Date Type Department Care Team (Late st Contact Info) Description 08/13/2025 2:20 PM EST Office Visit [facility] [address] [place] [address] Elizabeth Evans NP [address] [place] [address] 02/13/2026 5:00 PM EDT Office Visit [facility] [address] [place] [address] Elizabeth Evans, MELINA [address] [place] [address] Health Maintenance Due Date Last Done Comments CT Colonography 1950 Colonoscopy 1950 FIT 1950 FOBT 1950 Sigmoidoscopy 1950 Medicare Annual Wellness (AWV) 02/07/2026 02/07/2025 , 02/07/2025 Colorectal Cancer Screening 08/20/2027 FIT-DNA 08/20/2027 08/20/2024 Mammogram Discontinued 11/30/2016, 11/12, 11/21/2013, Additional history exists Pneumococcal Vaccine: 65+ Years Completed , 06/03/2018 Influenza Vaccine Completed 07/11/2024, , 06/12/2022, Additional history exists Procedures Procedure Name Priority Date/Time Associated Diagnosis Comments LAB COLOGUARD COLON CANCER SCREEN Routine 08/20/2024 2:50 PM EST Screening for colon cancer from Last 3 Months or Most Recently Relevant to Health Maintenance Results * Cologuard?? colon cancer screening (08/20/2024 2:50 PM EST) NONINV COLON CA DNA+OCC BLD SCRN STL-IMP Negative Negative 08/28/2024 5:18 PM [facility] Vacation Listing Service (CLIA #:[id number]) Comment: NEGATIVE TEST RESULT. A negative Cologuard result indicates a low likelihood that a colorectal cancer (CRC) or advanced adenoma (adenomatous polyps with more advanced pre-malignant features) is present. The chance that a person with a negative Cologuard test has a colorectal cancer is less than 1 in 1500 (negative predictive value >99.9%) or has an advanced adenoma is less than 5.3% (negative predictive value 94.7%). These data are based on a prospective cross-sectional study of 10,000 individuals at average risk for colorectal cancer who were screened with both Cologuard and colonoscopy. (Irene Tolbert al, N Engl J Med 2014;370(14):9946-9732) The normal value (reference range) for this assay is negative. COLOGUARD RE-SCREENING RECOMMENDATION: Periodic colorectal cancer screening is an important part of preventive healthcare for asymptomatic individuals at average risk for colorectal cancer. Following a negative Cologuard result, the [place] [employer] Society and U.S. Multi-Society Task Force screening guidelines recommend a Cologuard re-screening interval of 3 years. References: [place] [employer] Guideline for Colorectal Cancer Screening: https://www.cancer.org/cancer/xqsll-kvgokk-kicjfh/nhobwuzmr-siadvwptz-ffajojx/ac s-rec ommendations.html.; Kota DK, Alexx CR, Edna RoseK, Colorectal Cancer Screening: Recommendations for Physicians and Patients from the U.S. Multi-Society Task Force on Colorectal Cancer Screening , Am J Gastroenterology 2017; 112:3518-9355. TEST DESCRIPTION: Composite algorithmic analysis of stool DNA-biomarkers with hemoglobin immunoassay. Quantitative values of individual biomarkers are not reportable and are not associated with individual biomarker result reference ranges. Cologuard is intended for colorectal cancer screening of adults of either sex, 45 years or older, who are at average-risk for colorectal cancer (CRC). Cologuard has been approved for use by the U.S. FDA. The performance of Cologuard was established in a cross sectional study of average-risk adults aged 50-84. Cologuard performance in patients ages 45 to 49 years was estimated by sub-group analysis of near-age groups. Colonoscopies performed for a positive result may find as the most clinically significant lesion: colorectal cancer [4.0%], advanced adenoma (including sessile serrated polyps greater than or equal to 1cm diameter) [20%] or non- advanced adenoma [31%]; or no colorectal neoplasia [45%]. These estimates are derived from a prospective cross-sectional screening study of 10,000 individuals at average risk for colorectal cancer who were screened with both Cologuard and colonoscopy. (Irene Tolbert al, N Engl J Med 2014;370(14):3856-1590.) Cologuard may produce a false negative or false positive result (no colorectal cancer or precancerous polyp present at colonoscopy follow up). A negative Cologuard test result does not guarantee the absence of CRC or advanced adenoma (pre-cancer). The current Cologuard screening interval is every 3 years. ([place] [employer] Society and U.S. Multi-Society Task Force). Cologuard performance data in a 10,000 patient pivotal study using colonoscopy as the reference method can be accessed at the following location: www.[employer]introNetworks/results. Additional description of the Cologuard test process, warnings and precautions can be found at www.FlickrogIncipientrd.com. Stool specimen (specimen) 08/20/2024 2:50 PM EST 08/22/2024 4:08 PM EST Lula Alicia NP LAB MOLECULAR DIAGNOSTIC S ORDERABLES Final Result Vacation Listing Service (CLIA #:[id number]) [place] [address], from Last 3 Months or Most Recently Relevant to Health Maintenance Insurance [facility] [address] [facility] MEDICARE ADVANTAGE Care Teams Online Marketing Specialist Relationship Specialty Start Date End Date Trino Agee MD [address] [place] [address] PCP - General Family Medicine 07/11/24 Lula Alicia NP [address] [place] [address] Nurse Practitioner Family Medicine 07/11/24
--- OUTSIDE RECORDS SUMMARY | 2025-02-13 14:33 | XMS_ITS | Encounter Summary ---
Author Organization [facility] Address [address] [place] [address] Care Team Providers Care Torch Brazer Name Role Phone Trino Agee MD Primary Care Provider [phone] Lula Alicia PIANO MAKER Unavailable [phone] Reason for Visit * Reason Onset Date Comments Med Refill 02/06/2025 Encounter Details Date Type Department Care Team (Late Contact Info) Description 02/06/2025 Refill [facility] [address] [place] [address] Trino Agee MD [address] [place] [address] Gastroesophageal reflux disease without esophagitis; Hyperlipidemia, unspecified hyperlipidemia type ([facility]) Social History Tobacco Use Types Packs/Day Years [...] 08/13/2025 2:20 PM EST Office Visit [facility] [address] [place] [address] Elizabeth Evans NP [address] [place] [address] 02/13/2026 5:00 PM EDT Office Visit [facility] [address] [place] [address] Elizabeth Evans NP [address] [place] [address] documented as of this encounter Visit Diagnoses Diagnosis Gastroesophageal reflux disease without esophagitis Esophageal reflux Hyperlipidemia, unspecified hyperlipidemia type (CMS/HCC) documented in this encounter Care Teams Torch Brazer Relationship Specialty Start Date End Date Trino Agee MD [address] [place] [address] PCP - General Family Medicine 07/11/24 Lula Alicia NP [address] [place] [address] Nurse Practitioner Family Medicine 07/11/24 documented as of this encounter
--- OUTSIDE RECORDS SUMMARY | 2025-02-13 14:33 | XMS_ITS | Referral Summary ---
Author Organization [facility] Address [address] [place] [address] Care Team Providers Care Drawer Waxer Name Role Phone Shaikh JUAN DIEGO Villagran Primary Care Provider [phone] Allergies Active Allergy Reactions Criticality Noted Date [...] 05/05/2022 1:34 PM EDT Plan of Treatment Not on file Care Teams Drawer Waxer Relationship Specialty Start Date End Date Shaikh Villagran MD [address] [place] [address] PCP - General Family Medicine 06/19/24
--- OUTSIDE RECORDS SUMMARY | 2025-02-13 14:33 | XMS_ITS | Encounter Summary ---
Author Organization [facility] Address [address] [place] [address] Care Team Providers Care Campground Caretaker Name Role Phone Trino Agee MD Primary Care Provider [phone] Lula Alicia FITNESS MANAGER Unavailable [phone] Encounter Details Date Type Department Care Team (Late Contact Info) Description 01/26/2025 Abstract [facility] [address] [place] [address] Trino Agee MD [address] [place] [address] Social History Tobacco Use Types Packs/Day Years Used Date Smoking Tobacco: Never Passive Smoke Exposure: Never Alcohol Use Standard Drinks/Week Comments Never 0 (1 standard drink = 0.6 oz pur e alcohol) caffeine: none PHQ-2 Answer Date Recorded Patient Health Questionnaire-2 Score 0 04/11/2024 Comments No Sex and Gender Information Value Date Recorded Sex Assigned at Not on file Legal Sex Female 7:03 PM EDT Gender Identity Not on file Sexual Orientation Not on file documented as of this encounter Plan of Treatment Upcoming Encounters Date Type Department Care Team (Late Contact Info) Description 08/13/2025 2:20 PM EST Office Visit [facility] [address] [place] [address] Elizabeth Evans NP [address] [place] [address] 02/13/2026 5:00 PM EDT Office Visit [facility] [address] [place] [address] Elizabeth Evans NP [address] [place] [address] documented as of this encounter Visit Diagnoses Not on filedocumented in this encounter Care Teams Campground Caretaker Relationship Specialty Start Date End Date Trino Agee MD [address] [place] [address] PCP - General Family Medicine 07/11/24 Lula Alicia NP [address] [place] [address] Nurse Practitioner Family Medicine 07/11/24 documented as of this encounter
--- OUTSIDE RECORDS SUMMARY | 2025-02-13 14:33 | XMS_ITS | Encounter Summary ---
Author Organization [facility] Address [address] [place] [address] Care Team Providers Care Airport Operations Supervisor Name Role Phone Elizabeth Evans WATER RESTORATION TECHNICIAN Unavailable [phone] Shaikh JUAN DIEGO Villagran Primary Care Provider [phone] Shaikh JUAN DIEGO Villagran Unavailable [phone] Trino Agee MD Primary Care Provider [phone] Lula Alicia WATER RESTORATION TECHNICIAN Unavailable [phone] Encounter Details Date Type Department Care Team (Late st Contact Info) Description 01/27/2024 Orders Only [facility] [address] [place] [address] Ming Miranda PA [address] [place] [address] Social History Tobacco Use Types Packs/Day Years [...] 08/13/2025 2:20 PM EST Office Visit [facility] [address] [place] [address] Elizabeth Evans NP [address] [place] [phone] 02/13/2026 5:00 PM EDT Office Visit [facility] [address] [place] [phone] Elizabeth Evans NP [address] [place] [phone] documented as of this encounter Procedures Procedure Name Priority Date/Time Associated Diagnosis Comments ULTRASOUND : ARTERY DOPPLER LOW EXT BILAT Routine 01/27/2024 9:12 AM EDT documented in this encounter Results * ULTRASOUND : ARTERY DOPPLER LOW EXT BILAT (01/27/2024 9:12 AM EDT) Anatomical Region Laterality Modality Radiographic Ling ging Ming HAQUE IMG XR PROCEDURES Final Result documented in this encounter Visit Diagnoses Not on filedocumented in this encounter Care Teams Airport Operations Supervisor Relationship Specialty Start Date End Date Shaikh Villagran MD [address] [place] [id number] PCP - General Internal Medicine 11/29/23 07/10/24 Shaikh Villagran MD [address] [place] [phone] PCP - Jason ACOSTA 05/14/24 09/12/24 Trino Agee MD [address] [place] [address] PCP - General Family Medicine 07/11/24 Elizabeth Evans NP [address] [place] [address] Nurse Practitioner Family Medicine 06/13/23 07/10/24 Lula Alicia NP [address] [place] [address] Nurse Practitioner Family Medicine 07/11/24 documented as of this encounter
--- OUTSIDE RECORDS SUMMARY | 2025-02-13 14:33 | XMS_ITS | Encounter Summary ---
Author Organization [facility] Address [address] [place] [address] Care Team Providers Care Flight Service Agent Name Role Phone Elizabeth Evans RETAIL SOLAR ADVISOR Unavailable [phone] Shaikh JUAN DIEGO Villagran Primary Care Provider [phone] Shaikh JUAN DIEGO Villagran Unavailable [phone] Trino Agee MD Primary Care Provider [phone] Lula Alicia RETAIL SOLAR ADVISOR Unavailable [phone] Encounter Details Date Type Department Care Team (Late st Contact Info) Description 11/29/2023 Orders Only [facility] [address] [place] [address] Shaikh Villagran MD [address] [place] [address] Social History Tobacco Use Types Packs/Day Years [...] pleasure in doing things Not at all 11/29/2023 4:03 PM EDT Jeannie Moe M A Feeling down, depressed, or hopeless Not at all 11/29/2023 4:03 PM EDT Jeannie Moe M A Patient Health Questionnaire -2 Score 0 11/29/2023 4:03 PM EDT Jeannie Moe M A documented as of this encounter Plan of Treatment Upcoming Encounters Date Type Department Care Team (Late st Contact Info) Description 08/13/2025 2:20 PM EST Office Visit [facility] [address] [place] [address] Elizabeth Evans NP [address] [place] [phone] 02/13/2026 5:00 PM EDT Office Visit [facility] [address] [place] [address] Elizabeth Evans NP [address] [place] [phone] documented as of this encounter Procedures Procedure Name Priority Date/Time Associated Diagnosis Comments ELECTROCARDIOGRAM REPORT Routine 024 1:06 PM EST documented in this encounter Results * Electrocardiogram Report (11/18/2023 1:06 PM EST) us Shaikh Tyshawn [facility] IN CLINIC/BEDSIDE ORDERABLES Fi nal Result documented in this encounter Visit Diagnoses Not on filedocumented in this encounter Care Teams Flight Service Agent Relationship Specialty Start Date End Date Shaikh Villagran MD [address] [place] [phone] PCP - General Internal Medicine 11/29/23 07/10/24 Shaikh Villagran MD [address] [place] [phone] PCP - Jason ACOSTA 05/14/24 09/12/24 Trino Agee MD [address] [place] [phone] PCP - General Family Medicine 07/11/24 Elizabeth Evans NP [address] [place] [phone] Nurse Practitioner Family Medicine 06/13/23 07/10/24 Lula Alicia NP [address] [place] [phone] Nurse Practitioner Family Medicine 07/11/24 documented as of this encounter
[2025-02-13 14:50] LABS: Basophils Percent Auto 0.6 % (0.2-2.0); Eosinophils Absolute Auto 0.1 10^3/uL (0.0-0.7); Eosinophils Percent Auto 1.3 % (0.9-7.0); Hematocrit 43.1 % (36.0-48.0); Hemoglobin 14.3 g/dL (12.0-16.0); Immature Granulocytes Abs Auto 0.02 10^3/uL (0.00-0.03); Immature Granulocytes Pct Auto 0.3 % (0.0-0.5); Lymphocytes Absolute Auto 1.7 10^3/uL (1.2-3.8); Mean Corpuscular HGB Conc 33.2 g/dL (29.9-35.2); Mean Corpuscular Hemoglobin 28.7 pg (26.7-34.0); Mean Corpuscular Volume 86.5 fL (81.0-99.0); Mean Platelet Volume 10.4 fL (9.5-13.5); Monocytes Absolute Auto 0.4 10^3/uL (0.3-0.8); Monocytes Percent Auto 5.8 % (1.7-12.0); Neutrophils Absolute Auto 4.5 10^3/uL (1.4-6.5); Platelet Count 157 10^3/uL (150-450); Red Blood Count 4.98 10^6/uL (4.20-5.40); Red Cell Distribution Width 14.6 % (11.0-15.0); White Blood Count 6.7 10^3/uL (4.0-11.0)
[2025-02-13 15:32] LABS: Free T4 1.11 ng/dL (0.76-1.46)
[2025-02-13 15:56] LABS: Alanine Aminotransferase 36 U/L (14-59); Albumin Globulin Ratio 1.1; Albumin Level 3.6 g/dL (3.4-5.0); Alkaline Phosphatase 122 U/L (46-116); Anion Gap 12.5; Aspartate Amino Transferase 24 U/L (15-37); BUN Creatinine Ratio 20.3; Bilirubin Total 0.8 mg/dL (0.2-1.0); Calcium 9.3 mg/dL (8.5-10.1); Carbon Dioxide 28.7 mmol/L (21.0-32.0); Chloride 106 mmol/L (98-107); Chol HDL Ratio 2.9; Cholesterol 155 mg/dL (<=200); Estimated GFR (African America >60 (>=60 mL/min/1.73m^2); Estimated GFR (Non-African Ame >60 (>=60 mL/min/1.73m^2); Globulin 3.3 g/dL; Glucose 92 mg/dL (74-106); HDL Cholesterol 54 mg/dL (40-60); LDL Cholesterol Calculated 72.4 mg/dL; Potassium 4.2 mmol/L (3.5-5.1); Sodium 143 mmol/L (136-145); Thyroid Stimulating Hormone 2.029 uIU/mL (0.358-3.740); Total Protein 6.9 g/dL (6.4-8.2); Triglycerides 143 mg/dL (<=150); VLDL CHOLESTEROL 28.6 mg/dL
== END 2025-02-13 14:29 | disposition home or self-care (01) ==
LOC: LAB 14:30
PROVIDERS: PCP Nurse Practitioner; Visit Provider Nurse Practitioner
DX: G47.33 Obstructive sleep apnea (adult) (pediatric) (principal); K21.9 Gastro-esophageal reflux disease without esophagitis; E03.9 Hypothyroidism, unspecified; E78.2 Mixed hyperlipidemia
CPT/HCPCS: 36415; 80053; 80061; 84439; 84443; 85025

== ENCOUNTER 2025-09-04 13:37 | Outpatient (OUT) | payer MEDICARE, OTHER, SELFPAY ==
--- OUTSIDE RECORDS SUMMARY | 2025-08-29 12:30 | XMS_ITS | Encounter Summary ---
Author Organization [facility] Address [id number] [address] [place] [address] Care Team Providers Care Marketing Administrative Assistant Name Role Phone Trino Agee MD Primary Care Provider [phone] Reason for Visit * Vascular (Routine) - ClosedSpecialtyDiagnoses / ProceduresReferred By Contact Referred To Contact Diagnoses Venous insufficiency of both lower extremities Procedures Vein Treatment Angel Cole MD [address] [place] [address] Phone: tel: fax: Referral IDStatusReasonStart DateExpiration DateVisits RequestedVisits [id number] Encounter Details DateTypeDepartmentCare Team (Latest Contact Info)Ouvfdxagdmt38/17/2025 12:30 PM ESTProcedure visit [facility] [address] [place] [address], [address] [place] [phone] Angel Cole MD [address] [place] [address] Venous insufficiency of both lower extremities Social History Tobacco UseTypesPacks/DayYears UsedDateSmoking Tobacco: NeverSmokeless Tobacco: NeverAlcohol UseStandard Drinks/WeekCommentsYes0 (1 standard drink = 0.6 oz pure alcohol)PHQ-2AnswerDate RecordedTotal [id number] ZjuyslazUwygpjmosEkfgxyf98/12/2019EmploymentAnswerDate RecordedEmploymentUnknown 02/22/2019Hunger ScreeningAnswerDate RecordedWithin the past 12 months we worried whether our food would run out before we got money to buy more.Never True08/17/2023Within the past 12 months the food we bought just didn't last and we didn't have money to get more.Never True3Purpose - LifeAnswerDate RecordedPurpose and direction in paeaZydcfro33/11/2021CommentsNoSex and Gender InformationValueDate RecordedSex Assigned at BirthNot on fileLegal Sex Ojzbwp6404/18/2015 11:58 AM EDTGender IdentityNot on fileSexual OrientationNot on filedocumented as of this encounter Progress Notes * Angel Cole MD - 08/29/2025 12:30 PM EST [facility] Operative Report Preprocedure diagnosis: Right leg swelling and pain, C3 disease Postprocedure diagnosis: same Procedure: Radiofrequency ablation of the right greater saphenous vein Surgeon: Angel Cole MD Quality Director: Alexander Menjivar RVT Complications: None Estimated blood loss: Less than 25 mL Junction measurement: 4 cm Treatment length: 48 cm Tumescent: 250 mL Lidocaine: 4 mL 1% local injection Treatment time 2 mins 40 seconds Indications: Berenice Nolasco presents with mild pain and swelling in the bilaterally lower extremity(s). This has worsened the more she is on them. It is worse at the end of the day and relieved with rest and elevation. Symptoms include feeling tired and achy with some heaviness. She is having hard time being compliant with compression because occasionally she can not get them on her helps her with this. She has some obstructive sleep apnea wears a CPAP and some mild heart issues that baby contributing to her swelling. She has notices gotten a little bit worse but she has lost about 40 lb of weight. She has been extremely compliant with compression hose for more than 3 months with no relief in s ymptoms. Consent was obtained from the patient with risks discussed in detail including bleeding, infection, greater saphenous nerve injury, DVT, skin pigmentation change, and a 5% recurrence rate at1 year. Procedure: Patient was brought into the operative suite and laid in the supine position. Consent was obtained preoperatively and the patient agreed to proceed. The right leg was prepped and draped in usual sterile fashion and time-out was performed the entire surgical team was in agreement plan procedure correctly marked extremity. The patient was given sedation with 10 mg of Valium oral that she took aboutan hour prior to procedure. Proceeded by ultrasound in the right greater saphenous vein and accessed in the mid-calf. A micro access needle and wire were used to cannulate the greater saphenous vein in the was upsized to a 7 Faroese sheath using the modified Seldinger technique. We then were able to advance the 60 cm radiofrequency closure catheter up into the saphenofemoral junction. Using ultrasound we measured a distance of 4 cm from the junction to the tip of the catheter and confirmed that the inferior epigastric vein was patent. At this point using tumescent and a 18 gauge needle able tocreate a nice wheal of tumescent around the vein compressing the vein again seen catheter and creating greater than 1 cm separation of the skin surface. The vein was then ablated in several segments for a total of 9 cycles and withdrawn slowly after each cycle. The proximal segment was treated with2 cycles. The catheter and sheath were then carefully removed and pressure was held at the access point. Ultrasound was used to confirm that the common femoral vein was patent with no evidence of DVTand there was flow in the inferior epigastric vein. The right leg was then cleaned with saline and sterile dressing was applied with bacitracin over the wounds and an Etienne wrap. Patient was monitored for about 30 min post procedure. The patient tolerated procedure without any complication. Angel Cole M.D. Vascular Surgery documented in this encounter Plan of Treatment DateTypeDepartmentCare Team (Latest Contact Info)Xugzmvxvkll62/14/2026 1:00 PM ESTAppointment [facility] [address] [place] [address], [address] [place] [address] 09/26/2025 1:30 PM ESTOffice Visit [facility] [address] [place] [address], [address] [place] [address] Angel Cole MD [facility] [place] [address] documented as of this encounter Procedures Procedure NamePriorityDate/TimeAssociated DiagnosisCommentsVEIN TREATMENTRoutine 08/29/2025 1:16 PM EST Venous insufficiency of both lower extremities documented in this encounter Results * Vein Treatment (08/29/2025 1:16 PM EST)Anatomical RegionLateralityModality UltrasoundSpecimen (Source)Anatomical Location / LateralityCollection Method / VolumeCollection TimeReceived Time08/29/2025 1:16 PM EST Narrative Authorizing ProviderResult TypeResult StatusBrett G Groveton MDCV VASCULAR ORDERABLESFinal Result documented in this encounter Visit Diagnoses Diagnosis Venous insufficiency of both lower extremities documented in this encounter Additional Health Concerns AssessmentNoted TimePHQ-9 Depression Total Score: 112 11:07 AM EST documented as of this encounter Care Teams Team MemberRelationshipSpecialtyStart DateEnd Date Trino Agee MD PCP - General04/28/13documented as of this encounter
--- OUTSIDE RECORDS SUMMARY | 2025-09-03 14:14 | XMS_ITS | Encounter Summary ---
[facility] [id number] [address] [place] [address] Care Team Providers Care Fire Loss Prevention Engineer Name Role Phone Trino Agee MD Primary Care Provider [phone] Reason for Referral * Vascular (Routine) - ClosedSpecialtyDiagnoses / ProceduresReferred By Contact Referred To Contact Diagnoses Venous insufficiency of both lower extremities Varicose veins of both lower extremities with pain Phlebitis Procedures Vas venous duplex lwr single right Angel Cole MD [address] [place] [address] Phone: tel:[phone] fax: Referral IDStatusReasonStart DateExpiration DateVisits RequestedVisits [id number]/12/20255/12/202611 Reason for Visit * Vascular (Routine) - ClosedSpecialtyDiagnoses / ProceduresReferred By Contact Referred To Contact Diagnoses Venous insufficiency of both lower extremities Varicose veins of both lower extremities with pain Phlebitis Procedures Vas venous duplex lwr single right Angel Cole MD [address] [place] [address] Phone: tel: fax: Referral IDStatusReasonStart DateExpiration DateVisits RequestedVisits [id number]/12/20255/12/202611 Encounter Details DateTypeDepartmentCare Team (Latest Contact Info)Mtbsaiughxy85/22/2025 2:14 PM EST - 09/03/2025 11:59 PM ESTHospital Encounter [facility] [address] [facility] [facility], [address] [place] [address] Venous insufficiency of both lower extremities; Varicose veins of both lower extremities with pain; Phlebitis Discharge Disposition: Home Social History Tobacco UseTypesPacks/DayYears UsedDateSmoking Tobacco: NeverSmokeless Tobacco: NeverAlcohol UseStandard Drinks/WeekCommentsYes0 (1 standard drink = 0.6 oz pure alcohol)PHQ-2AnswerDate RecordedTotal [id number] UvrppxhxEibiblgycTeknaes16/12/2019EmploymentAnswerDate RecordedEmploymentUnknown 02/22/2019Hunger ScreeningAnswerDate RecordedWithin the past 12 months we worried whether our food would run out before we got money to buy more.Never True08/17/2023Within the past 12 months the food we bought just didn't last and we didn't have money to get more.Never True3Purpose - LifeAnswerDate RecordedPurpose and direction in drrtTdfgynn42/11/2021CommentsNoSex and Gender InformationValueDate RecordedSex Assigned at BirthNot on fileLegal Sex Uvbzag9004/18/2015 11:58 AM EDTGender IdentityNot on fileSexual OrientationNot on filedocumented as of this encounter Medications at Time of Discharge MedicationSigDispense QuantityRefillsLast FilledStart DateEnd Date aspirin 81 mg Take by mouth. calcium carbonate/vitamin D3 (CALCIUM 600 WITH VITAMIN D3 ORAL) Take by mouth. citalopram (CeleXA) 20 mg tablet Take 1.5 tablets (30 mg total) by mouth in the morning.11/27/2022 diazePAM (VALIUM) 5 mg tablet Indications:Venous insufficiency of both lower extremities,Varicose veins of both lower extremities with pain,Pre-operative anxietyTake 1 tablet (5 mg total) by mouth as needed for anxiety. Take three tabs to office for each procedure (Do not take until instructed by staff) 6 tablet 06/25/2025 esomeprazole (NexIUM) 40 mg capsule Take by mouth. famotidine (PEPCID) 20 mg tablet Take 1 tablet (20 mg total) by mouth in the morning and 1 tablet (20 mg total) before bedtime. fesoterodine (TOVIAZ) 8 mg tablet extended release 24 hr Take 1 tablet (8 mg total) by mouth in the morning.10/29/2023 flaxseed oiL 1,000 mg capsule 1 capsule (1,000 mg total) in the morning. levothyroxine (SYNTHROID, LEVOTHROID) 50 MCG tablet Take 1 tablet (50 mcg total) by mouth in the morning.10/16/2022 melatonin 1 mg tablet,chewable Chew and swallow. usmnhupq-wdw-igrydyk gluconate (CENTRUM) 9 mg iron/15 mL liquid Take 15 mL by mouth in the morning. multivitamin (THERAGRAN) tablet Take 1 tablet by mouth in the morning. OZEMPIC 0.25 mg or 0.5 mg (2 mg/3 mL) pen injector 07/05/2023 RANITIDINE HCL (ZANTAC ORAL) Take by mouth. simvastatin (ZOCOR) 20 mg tablet documented as of this encounter Plan of Treatment DateTypeDepartmentCare Team (Latest Contact Info)Mdymwepbckl95/14/2026 1:[address], [address] [place] [phone] 09/26/2025 1:30 PM ESTOffice [facility] [address] [place] [address], [address] [place] [phone] Angel Cole MD [address] [place] [address] documented as of this encounter Procedures Procedure NamePriorityDate/TimeAssociated DiagnosisCommentsVASC VENOUS DUPLEX LOWER PJGJEGkebzon65/22/2025 2:49 PM EST Venous insufficiency of both lower extremities Varicose veins of both lower extremities with pain Phlebitis documented in this encounter Results * Vas venous duplex lwr single right (09/03/2025 2:49 PM EST)Anatomical Region LateralityModalityVascularRightUltrasoundSpecimen (Source)Anatomical Location / LateralityCollection Method / VolumeCollection TimeReceived Time09/03/2025 2:49 PM EST Narrative 09/03/2025 4:05 PM EST Previous: History of right] lower extremity endovenous ablation 08/29/2025 Right: Great saphenous vein ablation with intraluminal content EHIT2--occupying < 50% of the femoral vein. Remaining visualized deep venous segments are compressible with spontaneous ??phasic ??spectral Doppler waveforms. Superficial veins are compressible. Left: Common femoral vein is compressible with spontaneous ??phasic ??spectral Doppler waveforms. Conclusions: RIGHT: Satisfactory endovenous ablation of the great saphenous vein. Thrombus extension into the common femoral vein consistent with EHIT 2.LEFT: NO EVIDENCE of deep vein thrombosis (DVT) of the common femoral vein. Recommendations: Any questions prior to finalization, please call the reading physician during normal business hours at the phone number beside their name. Procedure Note Kristie Amador MD - 09/03/2025 Previous: History of right] lower extremity endovenous /17/2025 Right: Great saphenous vein ablation with intraluminal contentEHIT2--occupying < 50% of the femoral vein. Remaining visualized deepvenous segments are compressible with spontaneous phasic spectralDoppler waveforms. Superficial veins are compressible. Left: Common femoral vein is compressible with spontaneous phasicspectral Doppler waveforms. Conclusions: RIGHT: Satisfactory endovenous ablation of the greatsaphenous vein. Thrombus extension into the common femoral vein consistentwith EHIT 2.LEFT: NO EVIDENCE of deep vein thrombosis (DVT) of the commonfemoral vein. Recommendations: Any questions prior to finalization, please call thereading physician during normal business hours at the phone number besidetheir name. Authorizing ProviderResult TypeResult StatusBregino Cole [facility] VASCULAR ORDERABLESFinal Result documented in this encounter Visit Diagnoses Diagnosis Venous insufficiency of both lower extremities Varicose veins of both lower extremities with pain Phlebitis Phlebitis and thrombophlebitis of unspecified site documented in this encounter Additional Health Concerns AssessmentNoted TimePHQ-9 Depression Total Score: 11:07 AM EST documented as of this encounter Care Teams Team MemberRelationshipSpecialtyStart DateEnd Date Tirno Agee MD [facility]04/28/13documented as of this encounter
--- OUTSIDE RECORDS SUMMARY | 2025-09-03 15:00 | XMS_ITS | Encounter Summary ---
Author Organization [facility] tem Address [id number] [address] [place] [address] Care Team Providers Care Car Detailer Name Role Phone Trino Agee MD Primary Care Provider Reason for Referral * Vascular (Routine) - AuthorizedSpecialtyDiagnoses / ProceduresReferred By ContactReferred To Contact Diagnoses Venous insufficiency of both lower extremities Procedures Vas venous duplex lwr single right Mine Parrish APRN-AUTOMOBILE MECHANIC [address] [place] [address] Phone: tel: fax: Referral IDStatusReasonStart DateExpiration DateVisits RequestedVisits [id number] Reason for Visit * ReasonCommentsChronic Venous InsufficiencyPost procedure Encounter Details DateTypeDepartmentCare Team (Latest Contact Info)Eofxcnepuoy09/22/2025 3:00 PM ESTOffice Visit [facility] [address] [place] [phone] Mine Parrish APRN-AUTOMOBILE MECHANIC [address] [place] [address] Venous insufficiency of both lower extremities (Primary Dx); Varicose veins of both lower extremities with pain Social History Tobacco UseTypesPacks/DayYears UsedDateSmoking Tobacco: NeverSmokeless Tobacco: Never Tobacco Cessation:Counseling Given: Not Answered Alcohol UseStandard Drinks/WeekCommentsYes0 (1 standard drink = 0.6 oz pure alcohol)PHQ-2AnswerDate RecordedTotal Jhdbl1003ChildcareAnswerDate KxngbarvDdqiaaopuEetujsc03/12/2019EmploymentAnswerDate RecordedEmploymentUnknown 02/22/2019Hunger ScreeningAnswerDate RecordedWithin the past 12 months we worried whether our food would run out before we got money to buy more.Never True08/17/2023Within the past 12 months the food we bought just didn't last and we didn't have money to get more.Never True3Purpose - LifeAnswerDate RecordedPurpose and direction in vfpcAtruqpi71/11/2021CommentsNoSex and Gender InformationValueDate RecordedSex Assigned at BirthNot on fileLegal Sex Weuzsp1004/18/2015 11:58 AM EDTGender IdentityNot on fileSexual OrientationNot on filedocumented as of this encounter Last Filed Vital Signs Vital SignReadingTime TakenCommentsBlood Yrotuktx605 2:58 PM EST Pulse--Temperature--Respiratory Rate--Oxygen Saturation--Inhaled Oxygen Concentration--Weight--Height--Body Mass Index--documented in this encounter Functional Status * BPAnswerDate of EzkwhvyrtgZhafwd018/8212/22/2025 2:58 PM Lisa Ruiz CMA * BPAnswerDate of NejdlnfcgsIlgonk518/8212/22/2025 2:58 PM Lisa Ruiz CMA documented as of this encounter Mental Status * BPAnswerEntry SqkiIltgdl511 2:58 PM Lisa Ruiz CMA documented in this encounter Progress Notes * Mine Parrish APRN-AUTOMOBILE MECHANIC - 09/03/2025 3:00 PM EST Images from the original note were not included. [address], [address] [place] [phone] HPI/Plan: Berenice Nolasco is a 75 y.o. female who presented to the office for evaluation after undergoing ablation of the right great saphenous, as well as a postprocedural venous duplex. Postoperative symptoms include: Due to koband dressing directly to skin resulted in right inner thigh with broken blistered area. No drainage noted. Patient has been keeping the area clean and dry and using aloe vera to assist with healing. We reviewed their post procedural duplex together today. The results appear consistent with persistent ablation of the target vein, EHIT2 was indicated. They are overall satisfied with the results of the procedure. The postoperative duplex results indicate that the ablation was successful. I will plan for the patient to return to the clinic 2-3 weeksfor repeat venous duplex due to EHIT2 and recommend taking Aspirin 325 mg daily for the next 3-4 weeks or until her next follow up visit. All questions were answered and the patient was advised to contact the office with any new questions or concerns. Objective Allergies Allergies Allergen Reactions Penicillins Sulfamethoxazole-Trimethoprim Other (See Comments) Sulfasalazine Oxycodone-Acetaminophen Rash and Swelling FACIAL SWELLING AND REDNESS Penicillin G Procaine Rash Current Medications Current Outpatient Medications Medication Sig Dispense Refill aspirin 81 mg Take by mouth. calcium carbonate/vitamin D3 (CALCIUM 600 WITH VITAMIN D3 ORAL) Take by mouth. citalopram (CeleXA) 20 mg tablet Take 1.5 tablets (30 mg total) by mouth in the morning. diazePAM (VALIUM) 5 mg tablet Take 1 tablet (5 mg total) by mouth as needed for anxiety. Take threetabs to office for each procedure (Do not take until instructed by staff) 6 tablet 0 esomeprazole (NexIUM) 40 mg capsule Take by mouth. famotidine (PEPCID) 20 mg tablet Take 1 tablet (20 mg total) by mouth in the morning and 1 tablet (20 mg total) before bedtime. (Patient not taking: Reported on 09/03/2025) fesoterodine (TOVIAZ) 8 mg tablet extended release 24 hr Take 1 tablet (8 mg total) by mouth in themorning. flaxseed oiL 1,000 mg capsule 1 capsule (1,000 mg total) in the morning. levothyroxine (SYNTHROID, LEVOTHROID) 50 MCG tablet Take 1 tablet (50 mcg total) by mouth in the morning. melatonin 1 mg tablet,chewable Chew and swallow. pchskeez-kar-mzztiar gluconate (CENTRUM) 9 mg iron/15 mL liquid Take 15 mL by mouth in the morning. multivitamin (THERAGRAN) tablet Take 1 tablet by mouth in the morning. (Patient not taking: Reported on 09/03/2025) OZEMPIC 0.25 mg or 0.5 mg (2 mg/3 mL) pen injector RANITIDINE HCL (ZANTAC ORAL) Take by mouth. simvastatin (ZOCOR) 20 mg tablet 0 No current facility-administered medications for this visit. Vitals BP 126/82 (BP Site: Left Arm, BP Postition: Sitting, BP CUFF SIZE: L (13-17 inches)) Review of Systems All 14 points were reviewed and were negative except for what is mentioned in the above HPI. Studies Reviewed: 09/03: Venous duplex: Right: Great saphenous vein ablation with intraluminal content EHIT2--occupying < 50% of the femoral vein. Remaining visualized deep venous segments are compressible with spontaneous phasic spectral Doppler waveforms. Superficial veins are compressible. Left: Common femoral vein is compressible with spontaneous phasic spectral Doppler waveforms. Assessment Berenice was seen today for chronic venous insufficiency. Diagnoses and all orders for this visit: Venous insufficiency of both lower extremities - Vas venous duplex lwr single right; Future Varicose veins of both lower extremities with pain [facility] [place] Daytime office/After-hours call number: [phone] [facility] 09/03/25 1540 documented in this encounter Plan of Treatment DateTypeDepartmentCare Team (Latest Contact Info)Wawmbdodkkj87/14/2026 1:00 PM ESTAppointment [facility] [address] [place] [address], [address] [place] [phone] 09/26/2025 1:30 PM ESTOffice Visit [facility] [address] [facility] [place] [phone] Angel Cole MD [address] [place] [address] NameTypePriorityAssociated DiagnosesOrder ScheduleVas venous duplex lwr single rightVascular UltrasoundRoutine Venous insufficiency of both lower extremities Expected: 09/24/2025 (Approximate), Expires: 09/03/2026documented as of this encounter Visit Diagnoses Diagnosis Venous insufficiency of both lower extremities- Primary Varicose veins of both lower extremities with pain documented in this encounter Additional Health Concerns AssessmentNoted TimePHQ-9 Depression Total Score: 11:07 AM EST documented as of this encounter Care Teams Team MemberRelationshipSpecialtyStart DateEnd Date Trino Agee MD PCP - 04/28/13documented as of this encounter
--- OUTSIDE RECORDS SUMMARY | 2025-09-04 13:42 | XMS_ITS | Encounter Summary ---
Author Organization [facility] tem Address [id number] [address] [place] [address] Care Team Providers Care Stoker Mechanic Name Role Phone Trino Agee MD Primary Care Provider [phone] Encounter Details DateTypeDepartmentCare Team (Latest Contact Info)Wnmfisrxxnb05/17/2025Travel Social History Tobacco UseTypesPacks/DayYears UsedDateSmoking Tobacco: NeverSmokeless Tobacco: NeverAlcohol UseStandard Drinks/WeekCommentsYes0 (1 standard drink = 0.6 oz pure alcohol)PHQ-2AnswerDate RecordedTotal Gaaga2633ChildcareAnswerDate DfiodzcyNalozhyyoPsvtdfz65/12/2019EmploymentAnswerDate RecordedEmploymentUnknown 02/22/2019Hunger ScreeningAnswerDate RecordedWithin the past 12 months we worried whether our food would run out before we got money to buy more.Never True08/17/2023Within the past 12 months the food we bought just didn't last and we didn't have money to get more.Never True3Purpose - LifeAnswerDate RecordedPurpose and direction in ncnmIegxnuw69/11/2021CommentsNoSex and Gender InformationValueDate RecordedSex Assigned at BirthNot on fileLegal Sex Qhufpo3604/18/2015 11:58 AM EDTGender IdentityNot on fileSexual OrientationNot on filedocumented as of this encounter Plan of Treatment DateTypeDepartmentCare Team (Latest Contact Info)Khdnpqkrgjp70/14/2026 1:[address] [facility] [address] [place] [address], [address] [place] [address] 09/26/2025 1:[address] [facility] [address] [facility] [place] [phone] Angel Cole MD [address] [place] [address] documented as of this encounter Visit Diagnoses Not on filedocumented in this encounter Additional Health Concerns AssessmentNoted TimePHQ-9 Depression Total Score: 11:07 AM EST documented as of this encounter Care Teams Team MemberRelationshipSpecialtyStart DateEnd Date Trino Agee MD PCP - General04/28/13documented as of this encounter
--- OUTSIDE RECORDS SUMMARY | 2025-09-04 13:42 | XMS_ITS | Clinical Summary ---
Author Organization [facility] Address [address] [place] [address] Care Team Providers Care Dietary Internship Name Role Phone Trino Agee MD Primary Care Provider Social History Tobacco UseTypesPacks/DayYears UsedDateSmoking Tobacco: Never Assessed CommentsUnknownSex and Gender InformationValueDate RecordedSex Assigned at Not on fileLegal UpnPgkwro29/06/2015 9:41 AM ESTGender IdentityNot on fileSexual OrientationNot on file Plan of Treatment Not on file Care Teams Team MemberRelationshipSpecialtyStart DateEnd Date Trino Agee MD PCP - GeneralFamily Medicine10/19/14
--- OUTSIDE RECORDS SUMMARY | 2025-09-04 13:42 | XMS_ITS | Clinical Summary ---
Author Organization [facility] Address [address] [address] Care Team Providers Care Master [employer] Name Role Phone Shaikh JUAN DIEGO Villagran Primary Care Provider [phone] Allergies Active AllergyReactionsCriticalityNoted DateCommentsOxycodone-AcetaminophenRash, GitkqevxEwz25/20/2024 FACIAL SWELLING AND REDNESS Penicillin G RcxeymnmEpzhIuf79/21/2023Sulfamethoxazole-TrimethoprimOther 09/02/2023 Medications MedicationSigDispense QuantityRefillsLast FilledStart DateEnd DateStatus levothyroxine (Synthroid, Levoxyl) 50 mcg tablet Take 1 tablet by mouth in the morning.10/16/2022ctive citalopram (CeleXA) 20 mg tablet Take 20 mg by mouth.11/27/2022ctive fesoterodine 8 mg tablet extended release 24 hr Take 8 mg by mouth in the morning.Active omeprazole (PriLOSEC) [address] capsule 40 mg.10/29/2023ctive simvastatin (Zocor) 20 mg tablet Take 1 tablet by mouth at bedtime.09/01/2016Active famotidine (Pepcid) 20 mg tablet Take 1 tablet by mouth at bedtime.Active aspirin 81 mg chewable tablet Chew 1 tablet every day by oral route.Active multivitamin tablet Take 1 tablet by mouth in the morning.Active melatonin 1 mg tablet,chewable Chew.Active multivitamin with iron-minerals 9 mg iron/15 mL liquid Take 15 mL by mouth in the morning.Active flaxseed oiL 1,000 mg capsule Take 1 capsule every day by oral route.10/29/2023ctive celecoxib (CeleBREX) 100 mg capsule TAKE 1 CAPSULE BY MOUTH TWICE DAILY MAOYOV41/12/2024Active semaglutide (Ozempic) 0.25 mg or 0.5 mg(2 mg/1.5 mL) pen injector Inject 0.25 mg under the skin.Active Social History Tobacco UseTypesPacks/DayYears UsedDateSmoking Tobacco: Never Assessed Tobacco Cessation:Counseling Given: Not Answered CommentsUnknownSex and Gender InformationValueDate RecordedSex Assigned at BirthNot on fileLegal EopBbkidb06/29/2022 10:44 PM EDTGender IdentityNot on fileSexual OrientationNot on file Last Filed Vital Signs Vital SignReadingTime TakenCommentsBlood Pressure--Pulse--Temperature-- Respiratory Rate--Oxygen Saturation--Inhaled Oxygen Concentration--Bjcmso54.4 kg (217 lb)05/05/2022 1:34 PM GPQLqzzkx251.6 cm (5' 6 )05/05/2022 1:34 PM EDTBody Mass Index35.02005/05/2022 1:34 PM EDT Plan of Treatment Health MaintenanceDue DateLast DoneCommentsCT Hdiyyqxenvye1950Colonoscopy 1950Colorectal Cancer Vulgqvkyy1950FIT-DNA1950FIT1950 FOBT1950Medicare Annual Wellness (AWV)1950 4334Vqshlnqlzzfpe1950 Depression Dbejxmhdk01/18/1962Fall Risk Jkooxnens31/18/2015dult Tetanus /09/2012Zoster Vaccines (2 of 2)3COVID-19 Vaccine ( season), 12/10/2020, 11/18/2020Influenza Vaccine (#1)/, 06/12/2022, 08/05/2021, Additional history zjselmIciqwvxzbCwtnweqpygpk92/20/2017Pneumococcal Vaccine: 50+ YearsCompleted 07/08/2019, 06/03/2018HIB VaccinesAged OutNo longer eligible based on patient's age to complete this topicHPV VaccinesAged OutNo longer eligible based on patient's age to complete this topicIPV VaccinesAged OutNo longer eligible based on patient's age to complete this topicMeningococcal B VaccineAged OutNo longer eligible based on patient's age to complete this topicMeningococcal VaccineAged OutNo longer eligible based on patient's age to complete this topicRotavirus VaccinesAged OutNo longer eligible based on patient's age to complete this topic Insurance Care Teams Team MemberRelationshipSpecialtyStart DateEnd Date Shaikh Villagran MD PCP - GeneralFamily Gtxzyzuc13/7/24
--- OUTSIDE RECORDS SUMMARY | 2025-09-04 13:42 | XMS_ITS | Clinical Summary ---
Author Organization [facility] Address [address] [facility], [address] [place] [address] Care Team Providers Care Top Precipitator Operator Helper Name Role Phone Trino Agee MD Primary Care Provider + Allergies Active AllergyReactionsCriticalityNoted RptiUepcjbvuOchzogyuxqh51/04/2013Sulfa Utgecuvlpye39/04/2013 Medications MedicationSigDispense QuantityRefillsLast FilledStart DateEnd DateStatus sertraline (ZOLOFT) 50 MG tablet Take 50 mg by mouth daily.Active Calcium Carbonate-Vit D-Min (CALCIUM 1200 PO) Take by mouth.Active esomeprazole (NEXIUM) 40 MG capsule Take 40 mg by mouth daily.Active simvastatin (ZOCOR) 20 MG tablet Take 20 mg by mouth nightly.Active aspirin 81 MG tablet Take 81 mg by mouth daily.Active Flaxseed, Linseed, (FLAX PO) Take 1 tablet by mouth daily.Active Active Problems ProblemNoted DateDiagnosed DateAnxiety Social History Tobacco UseTypesPacks/DayYears UsedDateSmoking Tobacco: NeverAlcohol UseStandard Drinks/WeekCommentsNo0 (1 standard drink = 0.6 oz pure alcohol)Comments UnknownSex and Gender InformationValueDate RecordedSex Assigned at BirthNot on fileLegal DzcComvba33/11/2013 12:58 AM ESTGender IdentityNot on fileSexual OrientationNot on file Last Filed Vital Signs Vital SignReadingTime TakenCommentsBlood Eavwuqzu163/8810/11/2012 10:52 AM EST Nyszv084610/11/2012 10:52 AM MUVLixivcwmjnh98.5 ??C (97.7 ??F)10/11/2012 10:52 AM ESTRespiratory Osvb870010/11/2012 10:52 AM ESTOxygen Saturation--Inhaled Oxygen Concentration--Besrec62.5 kg (193 lb)10/11/2012 10:52 AM MYKNufihj369.6 cm (5' 6 )10/11/2012 10:52 AM ESTBody Mass Index31.15010/11/2012 10:52 AM EST Plan of Treatment Not on file Care Teams Team MemberRelationshipSpecialtyStart DateEnd Date Trino Agee MD PCP - General09/17/11
--- OUTSIDE RECORDS SUMMARY | 2025-09-04 13:42 | XMS_ITS | Clinical Summary ---
Author Organization [employer] s tem Address [facility] [place]-[id number] [address] [place] [address] Care Team Providers Care Sessions Clerk Name Role Phone Trino Agee MD Primary Care Provider Allergies Active AllergyReactionsCriticalityNoted DateCommentsOxycodone-AcetaminophenRash, QkugdvgxEdp40/20/2024 FACIAL SWELLING AND REDNESS Penicillin G LgopiweaAxqqEpb10/21/2655Ncsxodmtvqx42/27/2017 Sulfamethoxazole-TrimethoprimOther (See Comments)09/02/2023Sulfasalazine 12/07/2016 Medications MedicationSigDispense QuantityRefillsLast FilledStart DateEnd DateStatus esomeprazole (NexIUM) 40 mg capsule Take by mouth.Active simvastatin (ZOCOR) 20 mg tablet Active aspirin 81 mg Take by mouth.Active RANITIDINE HCL (ZANTAC ORAL) Take by mouth.Active citalopram (CeleXA) 20 mg tablet Take 1.5 tablets (30 mg total) by mouth in the morning.11/27/2022ctive levothyroxine (SYNTHROID, LEVOTHROID) 50 MCG tablet Take 1 tablet (50 mcg total) by mouth in the morning.10/16/2022ctive flaxseed oiL 1,000 mg capsule 1 capsule (1,000 mg total) in the morning.Active OZEMPIC 0.25 mg or 0.5 mg (2 mg/3 mL) pen injector 07/05/2023ctive fesoterodine (TOVIAZ) 8 mg tablet extended release 24 hr Take 1 tablet (8 mg total) by mouth in the morning.10/29/2023ctive melatonin 1 mg tablet,chewable Chew and swallow.Active calcium carbonate/vitamin D3 (CALCIUM 600 WITH VITAMIN D3 ORAL) Take by mouth.Active qnejykrd-uwd-tzlqnvf gluconate (CENTRUM) 9 mg iron/15 mL liquid Take 15 mL by mouth in the morning.Active famotidine (PEPCID) 20 mg tablet Take 1 tablet (20 mg total) by mouth in the morning and 1 tablet (20 mg total) before bedtime.Active multivitamin (THERAGRAN) tablet Take 1 tablet by mouth in the morning.Active diazePAM (VALIUM) 5 mg tablet Indications:Venous insufficiency of both lower extremities,Varicose veins of both lower extremities with pain,Pre-operative anxietyTake 1 tablet (5 mg total) by mouth as needed for anxiety. Take three tabs to office for each procedure (Do not take until instructed by staff) 6 tablet 5Active Active Problems ProblemNoted DateDiagnosed DateVaricose veins of both lower extremities with pain09/03/2025Venous insufficiency of both lower jtyifpwenaa61/26/2023 Encounters DateTypeDepartmentCare WfygWprnfmfcjwu98/22/2025 3:00 PM ESTOffice Visit [facility] [address] [place] [address], [address] [place] [phone] Mine Parrish APRN-ZEINA Venous insufficiency of both lower extremities (Primary Dx); Varicose veins of both lower extremities with pain09/03/2025 2:14 PM EST - 09/03/2025 11:59 PM ESTHospital Encounter [address], [address] [place] [phone] Venous insufficiency of both lower extremities; Varicose veins of both lower extremities with pain; Phlebitis Discharge Disposition: Home09/03/20255671Uwnqsw57/17/2025 12:30 PM ESTProcedure visit [facility] [address] [place] [address], [address] [place] [address] Angel Cole MD Venous insufficiency of both lower nosbvwnhktk70/17/2025Orders Only [facility] [address] [place] [address], [address] [place] [phone] Lisa Cid CMA Venous insufficiency of both lower extremities (Primary Dx)08/29/2025Travel 08/13/20258359Aryqgb65/03/2666Wdhjvf30/20/2025 11:00 AM EDTOffice Visit [facility] [address] [place] [address], [address] [place] [address] Jovan Levy, OPERATING SYSTEM PROGRAMMER-INSTRUMENT SETTER Venous insufficiency of both lower extremities (Primary Dx)07/02/2025 10:09 AM EDT - 07/02/2025 11:59 PM EDTHospital Encounter [facility] [address] [place] [address], [address] [place] [phone] Venous insufficiency of both lower extremities; Varicose veins of both lower extremities with pain; Phlebitis Discharge Disposition: Home07/02/20258082Rfxmml82/16/2025[facility]phone [facility] [address] [place] [address] Chelsea De Luna 06/27/2025 8:30 AM EDTProcedure visit [facility] [address] [place] [address], [address] [place] [phone] Angel Cole MD Venous insufficiency of both lower iqtwxwprbcz76/15/9025Zompsw24/07/2025Refill [facility] [address] [place] [address], [address] [place] [address] Angel Cole MD Venous insufficiency of both lower extremities (Primary Dx); Varicose veins of both lower extremities with pain; Pre-operative socjuwt8506/18/2025Travelfrom Last 3 Months Family History Medical HistoryRelationNameCommentsHeart diseaseFatherStrokeFatherArthritis MotherHeart diseaseMotherStrokeMotherRelationNameStatusCommentsFatherDeceased MotherAlive Social History Tobacco UseTypesPacks/DayYears UsedDateSmoking Tobacco: NeverSmokeless Tobacco: Never Tobacco Cessation:Counseling Given: Not Answered Alcohol UseStandard Drinks/WeekCommentsYes0 (1 standard drink = 0.6 oz pure alcohol)PHQ-2AnswerDate RecordedTotal Xchpz9343ChildcareAnswerDate LfggqjhmPmtqzcywkGqmmtgy54/12/2019EmploymentAnswerDate RecordedEmploymentUnknown 02/22/2019Hunger ScreeningAnswerDate RecordedWithin the past 12 months we worried whether our food would run out before we got money to buy more.Never True08/17/2023Within the past 12 months the food we bought just didn't last and we didn't have money to get more.Never True3Purpose - LifeAnswerDate RecordedPurpose and direction in zuszHstxpkx43/11/2021CommentsNoSex and Gender InformationValueDate RecordedSex Assigned at BirthNot on fileLegal Sex Kqxwsn5904/18/2015 11:58 AM EDTGender IdentityNot on fileSexual OrientationNot on file Last Filed Vital Signs Vital SignReadingTime TakenCommentsBlood Byqdahsl314/8212 2:58 PM EST Ioryi634507/02/2025 10:53 AM EDTTemperature--Respiratory Xvic8809 2:15 PM EDTOxygen Qbyfkscrpu94%07/02/2025 10:53 AM EDTInhaled Oxygen Concentration-- Btejun31.7 kg (200 lb)07/02/2025 10:53 AM ZTLMoprux162.6 cm (5' 6 )07/02/2025 10:53 AM EDTBody Mass Index32.281 10:53 AM EDT Plan of Treatment DateTypeDepartmentCare Team (Latest Contact Info)Dcmfvzquitw21/14/2026 1:00 PM ESTAppointment [facility] [address] [place] [address], [address] [place] [phone] 09/26/2025 1:30 PM ESTOffice Visit [facility] [address] [place] [address], [address] [place] [phone] Angel Cole MD [address] [place] [address] Health MaintenanceDue DateLast DoneCommentsFall Risk Udknljwon10/18/2015 DTaP,Tdap and Td Vaccines (2 - Td or Tdap)Zoster (Shingles) Vaccine (2 of 2)epression Ibsptxlpy61RSV ( or age 60+ yrs) (1 - 1-dose 75+ series)5COVID-19 Vaccine (4 - 2024- season)/, 12/10/2020, 11/18/2020Tobacco Screening Influenza SdparpfXaeljdoqz07/03/2025, 07/11/2024, 07/07/2023, Additional history exists Medical Devices Not on file Procedures Procedure NamePriorityDate/TimeAssociated DiagnosisCommentsVASC VENOUS DUPLEX LOWER RAHBQSgcxols66/22/2025 2:49 PM EST Venous insufficiency of both lower extremities Varicose veins of both lower extremities with pain Phlebitis VEIN SWDZHOKDCPdewncd41/17/2025 1:16 PM EST Venous insufficiency of both lower extremities VASC VENOUS DUPLEX LOWER ARTYXjfmspm62/20/2025 10:44 AM EDT Venous insufficiency of both lower extremities Varicose veins of both lower extremities with pain Phlebitis VEIN DBSWZXUORPgnanqp47/15/2025 9:17 AM EDT Venous insufficiency of both lower extremities from Last 3 Months Results * Vas venous duplex lwr single [...] Previous: History of right] lower extremity endovenous cudrwrto57/17/2025 Right: Great saphenous vein ablation with intraluminal [...] phone number besidetheir name. Authorizing ProviderResult TypeResult Carol Cole [facility]ULAR ORDERABLESFinal Result * Vein Treatment (08/29/2025 1:16 PM EST) Only the most recent of2 resultswithin the time period is included. Anatomical RegionLateralityModalityUltrasoundSpecimen (Source)Anatomical Location / LateralityCollection Method / VolumeCollection TimeReceived Time 08/29/2025 1:16 PM EST Narrative Authorizing ProviderResult TypeResult Carol Cole [facility]ULAR ORDERABLESFinal Result * Vas venous duplex lwr single left (07/02/2025 10:44 AM EDT)Anatomical Region LateralityModalityVascularLeftUltrasoundSpecimen (Source)Anatomical Location / LateralityCollection Method / VolumeCollection TimeReceived Time07/02/2025 10:49 AM EDT Narrative 07/02/2025 4:51 PM EDT Previous: History of left lower extremity endovenous ablation 06/27/2025 Right: Common femoral vein is compressible with spontaneous ??phasic ??spectral Doppler waveforms. Left: ??Great saphenous vein ablation ??thigh and calf. ??Remaining visualized deep venous segmentsare compressible with spontaneous ??phasic spectral Doppler waveforms. Superficial veins are compressible. Conclusions: NO EVIDENCE of deep or superficial vein thrombosis of the left lower extremity. No evidence of deep vein thrombosis (DVT) of the right common femoral vein.Satisfactory endovenous ablation of the Left great saphenous vein. Recommendations: Any questions prior to finalization, please call the reading physician during normal business hours at the phone number beside their name. Procedure Note Binu Rodgers MD - 07/02/2025 Previous: History of left lower extremity endovenous hmwbllne24/15/2025 Right: Common femoral vein is compressible with spontaneous phasicspectral Doppler waveforms. Left: Great saphenous vein ablation thigh and calf. Remainingvisualized deep venous segments are compressible with spontaneous phasicspectral Doppler waveforms. Superficial veins are compressible. Conclusions: NO EVIDENCE of deep or superficial vein thrombosis of theleft lower extremity. No evidence of deep vein thrombosis (DVT) of theright common femoral vein.Satisfactory endovenous ablation of the Leftgreat saphenous vein. Recommendations: Any questions prior to finalization, please call thereading physician during normal business hours at the phone number besidetheir name. Authorizing ProviderResult TypeResult StatusBrett Douglas [facility]ASCULAR ORDERABLESFinal Result from Last 3 Months Insurance * Guarantor: Berenice NolascoAccount TypeRelation to PatientDate of BirthPhone Billing AddressPersonal/SqgpuiVahz[address] [facility] [place] [address] Care Teams Team MemberRelationshipSpecialtyStart DateEnd Date Trino Agee MD [facility]04/28/13
--- OUTSIDE RECORDS SUMMARY | 2025-09-04 13:42 | XMS_ITS | Encounter Summary ---
Author Organization [facility] tem Address [facility] [id number] [address] [place] [address] Care Team Providers Care Conveyor Belt Operator Name Role Phone Trino Agee MD Primary Care Provider [phone] Reason for Referral * Vascular (Routine) - ClosedSpecialtyDiagnoses / ProceduresReferred By Contact Referred To Contact Diagnoses Venous insufficiency of both lower extremities Procedures Vein Treatment Angel Cole MD [address] [place] [address] Phone: tel:[phone] fax: Referral IDStatusReasonStart DateExpiration DateVisits RequestedVisits [id number] Encounter Details DateTypeDepartmentCare Team (Latest Contact Info)Pfkzhhnbvrn07/17/2025Orders Only [facility] [address] [facility], [address] [place] [address] Lisa Cid CMA Venous insufficiency of both lower extremities (Primary Dx) Social History Tobacco UseTypesPacks/DayYears UsedDateSmoking Tobacco: NeverSmokeless Tobacco: NeverAlcohol UseStandard Drinks/WeekCommentsYes0 (1 standard drink = 0.6 oz pure alcohol)PHQ-2AnswerDate RecordedTotal Zmfhq0813ChildcareAnswerDate JotalflnFtarutjeeOswijuu84/12/2019EmploymentAnswerDate RecordedEmploymentUnknown 02/22/2019Hunger ScreeningAnswerDate RecordedWithin the past 12 months we worried whether our food would run out before we got money to buy more.Never True08/17/2023Within the past 12 months the food we bought just didn't last and we didn't have money to get more.Never True3Purpose - LifeAnswerDate RecordedPurpose and direction in meojIaorhwu63/11/2021CommentsNoSex and Gender InformationValueDate RecordedSex Assigned at BirthNot on fileLegal Sex Qbfbmg7004/18/2015 11:58 AM EDTGender IdentityNot on fileSexual OrientationNot on filedocumented as of this encounter Plan of Treatment DateTypeDepartmentCare Team (Latest Contact Info)Wlrptpmivqm98/14/2026 1:00 PM ESTApp[address]ment [address], [address] [place] [address] 09/26/2025 1:30 PM ESTOffice Visit [facility] [address] [place] [address], [address] [place] [address] Angel Cole MD [address] [place] [address] documented as of this encounter Results * Vein Treatment (08/29/2025 1:16 PM EST)Anatomical RegionLateralityModality UltrasoundSpecimen (Source)Anatomical Location / LateralityCollection Method / VolumeCollection TimeReceived Time08/29/2025 1:16 PM EST Narrative Authorizing ProviderResult TypeResult StatusAngel Cole MDCV VASCULAR ORDERABLESFinal Result documented in this encounter Visit Diagnoses Diagnosis Venous insufficiency of both lower extremities- Primary documented in this encounter Additional Health Concerns AssessmentNoted TimePHQ-9 Depression Total Score: 11:07 AM EST documented as of this encounter Care Teams Team MemberRelationshipSpecialtyStart DateEnd Date Trino Agee MD PCP - General04/28/13documented as of this encounter
--- OUTSIDE RECORDS SUMMARY | 2025-09-04 13:42 | XMS_ITS | Encounter Summary ---
Author Organization [facility] [facility] tem Address [id number] [address] [place] [address] Care Team Providers Care Cesspool Cleaner Name Role Phone Trino Agee MD Primary Care Provider [phone] Encounter Details DateTypeDepartmentCare Team (Latest Contact Info)Ieucllrdijf72/22/2025Travel Social History Tobacco UseTypesPacks/DayYears UsedDateSmoking Tobacco: NeverSmokeless Tobacco: NeverAlcohol UseStandard Drinks/WeekCommentsYes0 (1 standard drink = 0.6 oz pure alcohol)PHQ-2AnswerDate RecordedTotal Qffnc2323ChildcareAnswerDate RtpsujtbVjhckdxzhUytmfkh84/12/2019EmploymentAnswerDate RecordedEmploymentUnknown 02/22/2019Hunger ScreeningAnswerDate RecordedWithin the past 12 months we worried whether our food would run out before we got money to buy more.Never True08/17/2023Within the past 12 months the food we bought just didn't last and we didn't have money to get more.Never True3Purpose - LifeAnswerDate RecordedPurpose and direction in ntpgQcguaax46/11/2021CommentsNoSex and Gender InformationValueDate RecordedSex Assigned at BirthNot on fileLegal Sex Owwfmn2304/18/2015 11:58 AM EDTGender IdentityNot on fileSexual OrientationNot on filedocumented as of this encounter Plan of Treatment DateTypeDepartmentCare Team (Latest Contact Info)Fufnejwojlq59/14/2026 1:00 PM ESTAppointment [facility] [address] [place] [address], [address] [place] [address] 09/26/2025 1:30 PM ESTOffice Visit [facility] [place][Note 3] [address] [facility], [address] [place] [address] Angel Cole MD [address] [place] [address] documented as of this encounter Visit Diagnoses Not on filedocumented in this encounter Additional Health Concerns AssessmentNoted TimePHQ-9 Depression Total Score: 11:07 AM EST documented as of this encounter Care Teams Team MemberRelationshipSpecialtyStart DateEnd Date Trino Agee MD PCP - General04/28/13documented as of this encounter
--- OUTSIDE RECORDS SUMMARY | 2025-09-04 13:42 | XMS_ITS | Patient Health Record ---
Author Organization [facility] [place] Address [address] [place] [address] Care Team Providers Care Hardboard Press Operator Name Role Phone Cyndie ADAMSON, Trino Primary Care Provider Unavailab le Reason For Referral No Information Plan Of Treatment No Information Insurance Providers Payer Name Payer Address Payer Phone Subscriber Number Group Number Insured Name Patient Relationship to Insured Coverage Start Date Coverage End Date [employer] [place] [address] DUSTY REA [id number] [phone] [id number] Monse Nolasco Spouse - patient is the spouse of the insured 5
--- OUTSIDE RECORDS SUMMARY | 2025-09-04 13:43 | XMS_ITS | Clinical Summary ---
Author Organization [facility] Address [address] [place] [address] Care Team Providers Care Head Chopper Name Role Phone Trino Agee MD Primary Care Provider [phone] Lula Alicia PATIENT EXPERIENCE COORDINATOR Unavailable [phone] Allergies Active AllergyReactionsCriticalityNoted DateCommentsPenicillin G ProcaineRashLow 09/02/2023Oxycodone-XuakupdqmfqyhGnoqwstn24/30/2024 FACIAL SWELLING AND REDNESS Sulfamethoxazole-CdhacdfqinwyQwlej77/21/2023 Medications MedicationSigDispense QuantityRefillsLast FilledStart DateEnd DateStatus aspirin (ASPIRIN LOW DOSE) 81 MG EC tablet Take 81 mg by mouth 1 (one) time each day at the same timeActive calcium citrate 600 mg and vitamin D3 (Citrical & Minerals + Vit D) 600-200 MG- UNIT tablet Take 1 tablet by mouth in the morning.Active Multiple Vitamins-Minerals (Multivitamin Women 50+) tablet Take 1 tablet by mouth in the morning.Active semaglutide (Ozempic, 0.25 or 0.5 MG/DOSE,) 2 MG/1.5ML solution pen-injector Inject 0.25 mg under the skin 1 (one) time per weekActive fesoterodine ER (Toviaz) 8 MG 24 hr tablet Indications:Urinary FrequencyTake 8 mg by mouth Daily Do not crush, chew, or split.Active simvastatin (Zocor) 20 MG tablet Indications:Hyperlipidemia, unspecified hyperlipidemia typeTake 1 tablet (20 mg) by mouth at bedtime 90 tablet 5Active levothyroxine (Synthroid, Levoxyl) 50 MCG tablet Indications:Hypothyroidism, unspecified typeTake 1 tablet (50 mcg) by mouth Daily 90 tablet 5Active citalopram (CeleXA) 20 MG tablet Indications:Recurrent major depressive disorder, in full remissionTake 1.5 tablets (30 mg) by mouth Daily Take 1.5 tablets (30 mg) by mouth Daily 135 tablet 5Active esomeprazole (NexIUM) [address] capsule Indications:Gastroesophageal reflux disease without esophagitisTake 1 capsule (40 mg) by mouth Daily 90 capsule 5Active Active Problems ProblemNoted DateDiagnosed DateEncounter for subsequent annual wellness visit (AWV) in Medicare gaqmhau9402/07/2025 Assessment & Plan (02/07/2025 7:03 AM EDT): Reviewed Ht/Wt/BMI Recommend eye exam yearly Recommend dental exams twice a year Balance work/leisure activities Exercises is recommended most days of the week (appropriate as chronic conditions allow) Follow up yearly and prn Other acute /10/2025 Assessment & Plan (12/21/2024 4:17 PM EDT): Finish atb, fluids, rest Fu if not better Class 1 obesity due to excess calories without serious comorbidity with body mass index (BMI) of 31.0 to 31.9 in adult12/21/2024Screening for colon cancer 07/11/2024Left hip pain04/11/2024 Assessment & Plan (07/11/2024 2:52 PM EDT): Left hip pain, interfering with sleep. She also has left sided low back pain and has been seeing pain clinic at [facility], feels symptoms are currently well controlled. Continue current regimen. Assessment & Plan (04/11/2024 4:28 PM EDT): Left hip pain, interfering with sleep. She also has left sided low back pain and has been seeing pain clinic at [facility] with no relief despite multiple nerve blocks. XR Ordered. Trial of voltaren gel. Will decide on orthopedic referral based on XR. Recurrent major depressive disorder, in full dqugilvuj32/30/2024 Assessment & Plan (02/07/2025 7:02 AM EDT): Current med: celexa Assessment & Plan (04/11/2024 4:27 PM EDT): Stable mood. Doing well with Citalopram Recent urinary tract ghfzrnevb76/25/2024 Assessment & Plan (01/06/2024 10:24 AM EDT): Recent UTI sec to E coli. Has no urinary complaints of symptoms. Will check UA to make sure no pyuria. CPAP (continuous positive airway pressure) /25/2024OSA (obstructive sleep apnea)11/29/2023 Assessment & Plan (02/07/2025 3:03 PM EDT): [...] over 10 years ago. Will refer to [facility] Sleep clinic. Ybpbcxudmhwctk63/18/2024 Assessment & Plan (02/07/2025 7:03 AM EDT): On levothyroxine Check labs yearly and prn dose change or changes in sxs Assessment & Plan (07/11/2024 3:58 PM EDT): Currently taking Levothyroxine 50mcg. Continue current regimen. Assessment & Plan (04/11/2024 4:26 PM EDT): On levothyroxine 50 mcg. C/w same Assessment & Plan (11/29/2023 4:34 PM EDT): On levothyroxine 50 mcg. Check TSH Preoperative /18/2024 Assessment & Plan (01/10/2024 12:56 PM EDT): [...] clearance note to patient's surgeon Gastroesophageal reflux offqwxh1909/02/2023 Assessment & Plan (02/07/2025 7:01 AM EDT): [...] 4:26 PM EDT): Uses nexium as needed. Tcbhxtkv02/21/2023Venous insufficiency of both lower bzpfnlsqrly85/26/2023S/P breast huiwmpbbnbkgyg14/08/2023cquired absence of right breast and nipple 05/20/2022ersonal history of malignant neoplasm of ybennq7905/20/2022Tear of medial meniscus of knee02/27/20201986Xtstqwwckokmok02/10/2014 Assessment & Plan (02/07/2025 7:02 AM EDT): On statin therapy Check labs yearly and prn dose changes Assessment & Plan (07/11/2024 3:58 PM EDT): Currently taking Simvastatin 20mg Denies any myalgias. Check Lipid Panel today. Continue current regimen. 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 knrmly6311/03/2012 Assessment & Plan (02/07/2025 7:02 AM EDT): In the past Immunizations ImmunizationAdministration DatesNext DueHep A / Hep B109/27/2012,02/16/2013, 01/11/2013Influenza, High Dose Seasonal, Preservative Free07/11/2024,06/24/2020, 06/15/2016Influenza, High-dose Seasonal, Quadrivalent, Preservative Free 06/12/2022Influenza, Seasonal, Quadrivalent, Fxclsdldzg22/25/2023,08/05/2021 Influenza, injectable, quadrivalent, preservative free05/21/2015Influenza, trivalent, fzeplpfghs14/26/2019,06/03/2018,06/25/2017Pneumococcal Conjugate PCV 13006/03/2018Pneumococcal Polysaccharide TDNE22482786Znrb28/01/2013Typhoid, ViCPs02/16/2013Zoster, Ajuaechfucg62/25/2023 Family History Medical HistoryRelationNameCommentsHeart diseaseFatherHypertensionFatherCancer Maternal GrandfatherHeart diseaseMotherStrokeMotherRelationNameStatusComments FatherDeceasedMaternal GrandfatherDeceasedMotherAlive Social History Tobacco UseTypesPacks/DayYears UsedDateSmoking Tobacco: NeverPassive Smoke Exposure: Never Tobacco Cessation:Counseling Given: Not Answered Alcohol UseStandard Drinks/WeekCommentsNever0 (1 standard drink = 0.6 oz pure alcohol)caffeine: nonePHQ-2AnswerDate RecordedPatient Health Questionnaire-2 Nqnqm938CommentsNoSex and Gender InformationValueDate Recorded Sex Assigned at BirthNot on fileLegal LmwTqgdkz15/15/2023 7:03 PM EDTGender IdentityNot on fileSexual OrientationNot on file Last Filed Vital Signs Vital SignReadingTime TakenCommentsBlood Fvrlrgqu915/8405 2:23 PM EDT Vklnb255202/07/2025 2:23 PM BAROrqhtazjrzj78.2 ??C (98.9 ??F)02/07/2025 2:23 PM EDTRespiratory Omwi305302/07/2025 2:23 PM EDTOxygen Xtrrluifeu34%02/07/2025 2:23 PM EDTInhaled Oxygen Concentration--Edshog86.5 kg (204 lb)02/07/2025 2:23 PM EDT Tdvsxh543.6 cm (5' 6 )12/21/2024 3:46 PM EDTBody Mass Index32.9304 3:46 PM EDT Plan of Treatment Not on file Insurance Care Teams Team MemberRelationshipSpecialtyStart DateEnd Date Trino Agee MD PCP - GeneralFamily Dglcvayg78/29/24 Lula Alicia NP Nurse PractitionerFamily Heswonry54/29/24
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
--- OUTSIDE RECORDS SUMMARY | 2025-09-04 13:43 | XMS_ITS | Clinical Summary ---
Author Organization [facility] Address [address] [place] [address] Care Team Providers Care Water Softener Servicer And Installer Name Role Phone Shaikh Delia Villagran MD Primary Care Provider Allergies Active AllergyReactionsCriticalityNoted DateCommentsPenicillinsItchingHigh 09/16/2012 Other reaction(s): Other Sulfa DgxkuoedzshPuchuwdShej91/04/4495HotxllcpvstdhGyjhjpxMcgs83/27/2017 Medications MedicationSigDispense QuantityRefillsLast FilledStart DateEnd DateStatus citalopram 20 MG tablet Take 1 tablet by mouth daily.Active faMOTIdine 20 MG tablet Take 1 tablet by mouth at bedtime.Active Flaxseed, Linseed, (Flax Seed Oil) 1000 MG capsule 1 capsule daily.Active levothyroxine 50 MCG tablet daily every morning.Active simvastatin 20 MG tablet simvastatin 20 mg tablet Take 1 tablet by mouth at bedtimeActive trospium XR 60 MG Cap SR 24HR trospium ER 60 mg capsule,extended release 24 hr take 1 capsule by mouth every morningActive esomeprazole [address] capsule Take 1 capsule by mouth daily every morning.06/09/2022ctive CALCIUM PO Take by mouth daily.Active MELATONIN PO Take by mouth daily.Active multivitamin tablet Take 1 tablet by mouth daily.Active COLLAGEN PO Take by mouth.Active ibuprofen 400 MG tablet Take 1 tablet by mouth every 6 hours as needed for Mild Pain.Active oxyCODONE-acetaminophen 5-325 MG per tablet Indications:S/P breast reconstructionTake 1 tablet by mouth every 6 hours as needed for Moderate Pain (Use ONLY as needed for pain) for up to 3 days. 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 evzsza4811/03/2012 Family History Medical HistoryRelationNameCommentsClotting DisorderMotherPERelationNameStatus CommentsMother Social History Tobacco UseTypesPacks/DayYears UsedDateSmoking Tobacco: NeverSmokeless Tobacco: Never Tobacco Cessation:Counseling Given: Not Answered Alcohol UseStandard Drinks/WeekCommentsYes0 (1 standard drink = 0.6 oz pure alcohol)SELDOMCommentsNoSex and Gender InformationValueDate RecordedSex Assigned at BirthNot on fileLegal PraKyhrdx89/22/2022 3:25 PM EDTGender Identity Not on fileSexual OrientationNot on file Last Filed Vital Signs Vital SignReadingTime TakenCommentsBlood Vlimzwpu925/8311/18/2022 2:58 PM EST Blrzc138611/18/2022 2:58 PM BLHNchvhqduxde95.1 ??C (97 ??F)11/18/2022 2:58 PM EST Respiratory Gwzz1693 4:55 PM EDTOxygen Evhicjxrzr81%07/09/2022 4:55 PM EDTInhaled Oxygen Concentration--Hwmuhl795.7 kg (222 lb)09/23/2022 2:36 PM EST Odxswi676.6 cm (5' 6 )11/18/2022 2:58 PM ESTBody Mass Index35.8309/23/2022 2:36 PM EST Plan of Treatment Health MaintenanceDue DateLast DoneCommentsDEXA SCAN ZAFTTJSWAA1950 HEPATITIS C VIRUS VSBYNSFQT86/18/3255YJM59 1950CERVICAL CANCER SCREENING LXSLTHNKON32/18/1971LIPID GBQVMRGXX58/18/1990COLORECTAL CANCER SCREENING JVMVOUMQBO75/18/1995ZOSTER (SHINGLES) VACCINE (1 of 2)2000TETANUS MAMMOGRAM LEFT/SV VACCINE (1 - 1-dose 75+ series)5COVID-19 VACCINE (4 - season), 12/10/2020, 11/18/2020INFLUENZA VACCINE (#1)509/, 08/05/2021, 06/24/2020, Additional history existsTDAP (ADULT)Dvlquxlkt23/01/2013HEP B XFQCEUEJavgwrdav96/15/2013, 02/16/2013, 01/11/2013PNEUMOCOCCAL VACCINE SERIES Qxagbrmml23/26/2019, 06/03/2018MAMMOGRAM SCREENING DISCUSSIONDiscontinued 04/06/2022 Medical Devices ImplantedTypeAreaManufacturerDevice IdentifierShelf Expiration DateModel / Serial / LotMentor Smooth Round Spectrum Saline Breast Implant Implanted:Qty: 1 on 07/09/2022 by Yari Suazo MD at [facility] LOC Right: EouwzyELSZDR95/[id number] / [id number] / [id number] Procedures Procedure NamePriorityDate/TimeAssociated DiagnosisCommentsMAMMOGRAPHY (OUTSIDE) Drikuyp8204/06/2022from Last 3 Months or Most Recently Relevant to Health Maintenance Results * MAMMOGRAPHY (OUTSIDE) (04/06/2022) Narrative Authorizing ProviderResult TypeResult StatusHistorical ProviderBREAST IMAGING Final Result from Last 3 Months or Most Recently Relevant to Health Maintenance Insurance * Guarantor: David Nolascocount TypeRelation to PatientDate of BirthPhone Billing AddressPersonal/JzafpaFibp1950 [facility] [place] [address] Care Teams Team MemberRelationshipSpecialtyStart DateEnd Date Shaikh Delia Villagran MD PCP - GeneralInternal Medicine05/20/22
[2025-09-04 14:02] LABS: Hematocrit 42.6 % (36.0-48.0); Hemoglobin 14.1 g/dL (12.0-16.0); Immature Granulocytes Abs Auto 0.03 10^3/uL (0.00-0.03); Immature Granulocytes Pct Auto 0.4 % (0.0-0.5); Lymphocytes Absolute Auto 1.4 10^3/uL (1.2-3.8); Mean Corpuscular HGB Conc 33.1 g/dL (29.9-35.2); Mean Corpuscular Hemoglobin 29.0 pg (26.7-34.0); Mean Corpuscular Volume 87.7 fL (81.0-99.0); Platelet Count 171 10^3/uL (150-450); Red Blood Count 4.86 10^6/uL (4.20-5.40); White Blood Count 7.5 10^3/uL (4.0-11.0)
--- NOTE | 2025-09-04 14:30 | MM_ITS ---
Patient Name: DELBERT SALAS MR#: [id number] : 1950 Exam Date: 09/04/2025 Ordering Doctor: MISSAEL CASTILLO . RADIOLOGY REPORT PROCEDURE: MM TOMOSYNTHESIS DIAGNOSTIC LT COMPARISON: MM TOMOSYNTHESIS SCREENING LT, 06/01/2023. MM TOMOSYNTHESIS SCREENING LT, 04/06/2022. MG MAMM LT UNI W CAD DIG, 01/09/2016. MG MAMM DIG UNIL LT, 12/04/2014. INDICATIONS: Left Breast Pain Calculator Name NCI Breast Cancer Risk Assessment Tool 5 Year Breast Cancer Risk n/a% Lifetime Breast Cancer Risk n/a% Personal Breast Cancer Yes, Right breast Cancer- 42 Personal Ovarian Cancer No Treatments Right mastectomy Family Cancers Aunt-maternal with ovarian cancer at age 30; Grandfather-maternal with esophagus cancer at age 70; Uncle-maternal with lung cancer at age 85. LOCATION: [facility] BREAST COMPOSITION: There are scattered areas of fibroglandular density. FINDINGS: DIAGNOSTIC CATEGORY 1--NEGATIVE. No evidence of architectural distortion, worrisome masses or suspicious microcalcifications . RECOMMENDATIONS: ROUTINE MAMMOGRAM AND CLINICAL EVALUATION IN 12 MONTHS. The patient's breast pain should handled on a clinical basis. Dictated by: Elder Monahan DO on 09/04/2025 at 14:22 Approved by: Elder Monahan DO on 09/04/2025 at 14:25
[2025-09-04 14:34] LABS: Alanine Aminotransferase 40 U/L (14-59); Albumin Globulin Ratio 1.1; Albumin Level 3.7 g/dL (3.4-5.0); Alkaline Phosphatase 136 U/L (46-116); Anion Gap 12.4; Aspartate Amino Transferase 25 U/L (15-37); Blood Urea Nitrogen 13.0 mg/dL (7.0-18.0); Calcium 9.2 mg/dL (8.5-10.1); Carbon Dioxide 27.5 mmol/L (21.0-32.0); Chloride 105 mmol/L (98-107); Cholesterol 178 mg/dL (<=200); Estimated GFR (African America >60 (>=60 mL/min/1.73m^2); Estimated GFR (Non-African Ame >60 (>=60 mL/min/1.73m^2); Globulin 3.3 g/dL; Glucose 88 mg/dL (74-106); HDL Cholesterol 59 mg/dL (40-60); Potassium 3.9 mmol/L (3.5-5.1); Sodium 141 mmol/L (136-145); Thyroid Stimulating Hormone 1.819 uIU/mL (0.358-3.740); Total Protein 7.0 g/dL (6.4-8.2); Triglycerides 179 mg/dL (<=150); VLDL CHOLESTEROL 35.8 mg/dL
== END 2025-09-04 13:38 | disposition home or self-care (01) ==
LOC: MAMMO 13:40
PROVIDERS: PCP Family Medicine; Visit Provider Family Medicine
DX: C50.911 Malignant neoplasm of unspecified site of right female breast (principal); C50.912 Malignant neoplasm of unspecified site of left female breast; E78.5 Hyperlipidemia, unspecified; E03.9 Hypothyroidism, unspecified; N64.4 Mastodynia; Z80.41 Family history of malignant neoplasm of ovary; Z80.1 Family history of malignant neoplasm of trachea, bronchus and lung; Z80.8 Family history of malignant neoplasm of other organs or systems
CPT/HCPCS: 36415; 77065; 80053; 80061; 84439; 84443; 85025; G0279